=== PATIENT | female | born 1960 | race Caucasian/White ===

== ENCOUNTER 2017-12-28 19:22 | Emergency (ER) | payer MEDICARE, MEDICAID, SELFPAY ==
[2017-12-28 19:27] VITALS: BP 137/78; PULSE 89; RESP 20; TEMP 36.6; O2SAT 89; BMI 49.7
--- NOTE | 2017-12-28 19:39 | CT_ITS ---
CT abdomen pelvis wo con Ordering Physician: Adrien Bah MD Patient Age: 57 years: Female HISTORY: ITS.REASON: ABDOMINAL PAIN TECHNIQUE: Helical CT scanning performed the abdomen and pelvis with no oral or IV contrast utilized. Sagittal coronal reconstruction CT workstation. COMPARISON : Previous CT abdomen pelvis dated 07/20/2017. FINDINGS Patient's large size diminishes resolution slightly Lung bases are clear nothing acute. Abdomen/pelvis. Lack of oral and IV contrast decreases sensitivity. Liver. No focal lesions appreciated. Mild diffuse fatty change. Gallbladder is been surgically removed. Pancreas unremarkable. Adrenals unremarkable. Kidneys. No urinary tract calculi nor obstruction. Pelvis. The bladder is unremarkable. No pelvic masses. Hysterectomy. No adnexal masses. No free fluid no free air abdomen or pelvis. GI tract. Large amount There is moderate stool throughout colon with moderate generous stool at the transverse colon & hepatic flexure. Cecum at the right mid abdomen and appears redundant. No evidence of appendicitis. Undigested food-like material is seen throughout the distal most small bowel. Doubt this is of significance since is no bowel dilatation can be seen with ileus or mild altered bowel dynamics. No retroperitoneal nor mesenteric nor pelvic nor inguinal adenopathy or mass. Osseous structures stable with no significant findings. IMPRESSION. ... No acute findings abdomen or pelvis. 1. no acute findings abdomen pelvis. . 2.No evidence of appendicitis. No urinary tract obstruction or calculi. Generous stool is seen throughout the right & transverse colon which may reflect mild constipation but unimpressive. Minimal diverticulosis developing sigmoid colon no diverticulitis . Large patient. Hepatic steatosis Cholecystectomy. Hysterectomy.
[2017-12-28 20:12] LABS: Basophils # 0.1 K/mm3 (0-0.2); Basophils % 0.6 % (0.1-2.0); Eosinophils # 0.2 K/mm3 (0.0-0.4); Eosinophils % 1.8 % (0.1-12.0); Hematocrit 40.2 % (37.0-47.0); Hemoglobin 13.4 g/dL (12.2-16.2); Lymphocytes % 21.3 K/mm3 (10-50); Mean Corpuscular HGB Conc 33.3 g/dL (31.8-35.4); Mean Corpuscular Hemoglobin 28.7 pg (27.0-31.2); Mean Corpuscular Volume 86.4 fl (81-99); Monocytes # 0.4 K/mm3 (0.1-1.0); Monocytes % 4.5 % (1.7-9.3); Neutrophils # 6.6 K/mm3 (1.8-7.8); Neutrophils % 71.9 % (37.0-80.0); Platelet Count 198 K/mm3 (142-424); Red Blood Count 4.66 M/mm3 (4.20-5.40); Red Cell Distribution Width 14.6 % (11.5-17.5); White Blood Count 9.1 K/mm3 (4.8-10.8)
[2017-12-28 20:28] LABS: Alanine Aminotransferase 32 U/L (12-78); Albumin Level 3.6 gm/dL (3.4-5.0); Albumin/Globulin Ratio 0.9 (1.1-1.8); Alkaline Phosphatase 127 U/L (46-116); Amylase 60 U/L (25-125); Anion Gap 6.4 mEq/L (5-15); Aspartate Amino Transferase 20 U/L (15-37); Bilirubin,Total 0.3 mg/dL (0.2-1.0); Blood Urea Nitrogen 29 mg/dL (7-18); Calcium 9.2 mg/dL (8.5-10.1); Carbon Dioxide 38 mmol/L (21.0-32.0); Chloride 95 mmol/L (98-107); Creatinine Clearance Estimated 83 mL/min (0-300); Creatinine,Serum 0.69 mg/dL (0.55-1.02); Estimated Glomerular Filt Rate 87 ml/min (>60); GFR (African American) 106 ML/MIN (>60); Globulin 4.1 gm/dl (1.3-3.2); Glucose 107 mg/dL (74-106); Lipase 173 u/L (73-393); Potassium 3.4 mmoL/L (3.5-5.1); Sodium 136 mmol/L (136-145); Total Protein,Serum 7.7 gm/dL (6.4-8.2)
--- NOTE | 2017-12-28 20:33 | PC.NURSE ---
urine sample collected and sent to lab.
[2017-12-28 20:37] LABS: Microscopic, Urine URINE MICROSCOPIC (MICROSCOPIC)
[2017-12-28 20:43] LABS: Appearance,Urine CLEAR (Clear); Bilirubin,Urine Negative (Negative); Blood, Urine Negative (Negative); Color,Urine YELLOW (Yellow); Glucose,Urine (UA) Negative (Negative); Ketones,Urine Negative (Negative); Leukocyte Esterase,Urine Negative (Negative); Nitrate,Urine Negative (Negative); Protein,Urine Negative (Negative); Urobilinogen,Urine 0.2 EU/dl (0.2)
--- NOTE | 2017-12-28 20:43 | HMH.EDGENADL ---
ED Disposition Clinical Impression: RUQ abdominal pain Disposition: Home, Self-Care Condition on Discharge: Good Instructions: DI for Abdominal Pain-Adult Additional Instructions: Please follow up with Dr Jenkins tomorrow at 1pm as already scheduled, for additional evaluation/workup. If unable to see Dr Jenkins and if not better, return promptly to this ER for re-evaluation. Referrals: Manas Jenkins MD [Primary Care Provider] - Time of Disposition: 22:00 - Critical Care Critical Care Time: No Attestation: On 12/28/17, the high probability of a clinically significant, sudden or life threatening deterioration of the following system(s) required my full and direct attention, intervention and personal management. The time I documented below is in addition to time spent performing reported procedures but includes the following listed in this critical care notation. Medical Decision Making - Medical Records Medical records reviewed: Yes: I reviewed the patient's medical records. Vital Signs: 12/28/17 19:27 12/28/17 21:21 12/28/17 22:08 Temperature 97.9 F 98.1 F Temperature Source Oral Oral Pulse Rate 81 Pulse Rate [Right Brachial] 89 82 Respiratory Rate 20 16 18 Blood Pressure 124/80 Blood Pressure [Right Arm] 137/78 100/67 Blood Pressure Mean [Right Arm] 97 78 Blood Pressure Source Automatic Cuff Blood Pressure Source [Right Arm] Automatic Cuff Automatic Cuff Blood Pressure Position Sitting Blood Pressure Position [Right Arm] Sitting 02 Sat by Pulse Oximetry 89 L 91 L Oxygen Delivery Method Room Air Room Air Room Air - Lab Data Lab results reviewed: Yes: I reviewed the patient's lab results. Lab Results 12/28/17 20:00: Urine Color Yellow, Urine Appearance Clear, Urine pH 6.0, Ur Specific [place] 1.020, Urine Protein Negative, Urine Glucose (UA) Negative, Urine Ketones Negative, Urine Blood Negative, Urine Nitrate Negative, Urine Bilirubin Negative, Urine Urobilinogen 0.2, Ur Leukocyte Esterase Negative, Urine WBC Occasional, Ur Squamous Epith Cells 10-20, Amorphous Sediment Trace, Urine Bacteria Trace 12/28/17 20:00: WBC 9.1, RBC 4.66, Hgb 13.4, Hct 40.2, MCV 86.4, MCH 28.7, MCHC 33.3, RDW 14.6, Plt Count 198, MPV 9.0, Neut % (Auto) 71.9, Lymph % (Auto) 21.3, [place] % (Auto) 4.5, Eos % (Auto) 1.8, Baso % (Auto) 0.6, Neut # (Auto) 6.6, Lymph # (Auto) 2.0, [place] # (Auto) 0.4, Eos # (Auto) 0.2, Baso # (Auto) 0.1 12/28/17 20:00: Sodium 136, Potassium 3.4 L, Chloride 95 L, Carbon Dioxide 38 H, Anion Gap 6.4, BUN 29 H, Creatinine 0.69, Estimated Creat Clear 83, Estimated GFR 87, Est GFR ( Amer) 106, Glucose 107 H, Calcium 9.2, Total Bilirubin 0.3, AST 20, ALT 32, Alkaline Phosphatase 127 H, Total Protein 7.7, Albumin 3.6, Globulin 4.1 H, Albumin/Globulin Ratio 0.9 L, Amylase 60, Lipase 173 Result diagrams: 12/28/17 20:00 12/28/17 20:00 Orders (Tests/Meds): ED MEDICATIONS Discontinued Medications Generic Name Dose Route Start Last Admin Trade Name Freq PRN Reason Stop Dose Admin Morphine Sulfate 4 mg 12/28/17 20:46 12/28/17 21:14 Morphine 4mg/Ml Syringe IV 12/28/17 20:47 4 mg ONCE ONE Administration Ondansetron HCl 4 mg 12/28/17 20:46 12/28/17 21:14 Zofran 4mg/2ml Vial IV 12/28/17 20:47 4 mg ONCE ONE Administration - CT Data CT Scan: Abdomen, Pelvis Time Received: 21:[address] Reviewed: Yes: I have viewed the radiologist's interpretation Findings Narrative: Please see radiologist's report - Adonay Inquiry Pt receiving controlled substance: No - Reevaluation(s) Time: 21:45 Reevaluation #1: Upon reevaluation patient appears medically stable, no acute distress. Advise patient of results obtained, need to follow-up with PCP for additional workup. Patient advised that she already has a follow-up appointment for this specific matter with Dr. Jenkins tomorrow at 1 PM. Urged patient to keep such appointment, as workup has already been completed in t
[2017-12-28 20:45] LABS: WBC,Urine Occasional #/hpf (0-3)
[2017-12-28 20:46] LABS: Amorphous Sediment,Urine Trace /lpf; Bacteria,Urine Trace /lpf
[2017-12-28 21:21] VITALS: BP 100/67; PULSE 82; RESP 16; O2SAT 91
[2017-12-28 22:08] VITALS: BP 124/80; PULSE 81; RESP 18; TEMP 36.7; O2SAT 96
== END 2017-12-28 22:10 | disposition home or self-care (01) ==
PROVIDERS: Emergency Provider Emergency Medicine; Family Provider Nurse Practitioner Family; PCP Family Medicine
DX: R10.11 Right upper quadrant pain (principal); Z90.49 Acquired absence of other specified parts of digestive tract; Z88.1 Allergy status to other antibiotic agents; Z88.8 Allergy status to other drugs, medicaments and biological substances
CPT/HCPCS: 74176; 80053; 81001; 82150; 83690; 85025; 96374; 96375; 99282; J2405

== ENCOUNTER 2018-02-06 21:06 | Emergency (ER) | payer MEDICARE, MEDICAID, SELFPAY ==
[2018-02-06 21:10] VITALS: BMI 50.5
--- NOTE | 2018-02-06 21:11 | XR_ITS ---
XR chest portable COMPARISON: PA and lateral chest 07/01/2017 HISTORY: Chest pain TECHNIQUE: Portal semiupright chest FINDINGS: There is a slightly poor inspiration however lung streeter are clear of infiltrate. There is mild or borderline cardiomegaly but there is no vascular congestion and is no pleural fluid. There are monitor lines overlying the chest. The patient is markedly obese. IMPRESSION: Mild cardio megaly, no acute chest pathology noted
[2018-02-06 21:22] VITALS: BP 144/93; PULSE 75; RESP 22; TEMP 36.4; O2SAT 89; BMI 50.5
[2018-02-06 21:28] LABS: Basophils % 0.3 % (0.1-2.0); Eosinophils # 0.2 K/mm3 (0.0-0.4); Eosinophils % 1.3 % (0.1-12.0); Hematocrit 43.3 % (37.0-47.0); Hemoglobin 14.1 g/dL (12.2-16.2); Lymphocytes # 1.8 K/mm3 (0.7-4.5); Lymphocytes % 15.3 K/mm3 (10-50); Mean Corpuscular HGB Conc 32.4 g/dL (31.8-35.4); Mean Corpuscular Hemoglobin 28.7 pg (27.0-31.2); Mean Corpuscular Volume 88.6 fl (81-99); Mean Platelet Volume 8.7 fl (7.4-10.4); Monocytes # 0.5 K/mm3 (0.1-1.0); Monocytes % 4.3 % (1.7-9.3); Neutrophils # 9.2 K/mm3 (1.8-7.8); Neutrophils % 78.8 % (37.0-80.0); Platelet Count 301 K/mm3 (142-424); Red Blood Count 4.89 M/mm3 (4.20-5.40); Red Cell Distribution Width 14.1 % (11.5-17.5); White Blood Count 11.6 K/mm3 (4.8-10.8)
--- NOTE | 2018-02-06 21:29 | HMH.EDGENADL ---
ED Disposition Clinical Impression: Atypical chest pain, Anxiety state Asthma attack Qualifiers: Asthma severity: mild Asthma persistence: intermittent Qualified Code(s): J45.21 - Mild intermittent asthma with (acute) exacerbation Disposition: Home, Self-Care Condition on Discharge: Good Instructions: DI for Atypical Chest Pain, DI for Asthma -- Adult Additional Instructions: Additional instructions for CHEST PAIN: See your physician as soon as possible for further evaluation. Return immediately if worsening chest pain, vomiting, shortness of breath, fever, coughing of blood. - Critical Care Critical Care Time: No Attestation: On 02/06/18, the high probability of a clinically significant, sudden or life threatening deterioration of the following system(s) required my full and direct attention, intervention and personal management. The time I documented below is in addition to time spent performing reported procedures but includes the following listed in this critical care notation. Medical Decision Making - Adonay Inquiry Pt receiving controlled substance: No Vital Signs: 02/06/18 21:22 02/06/18 22:10 02/06/18 23:30 Temperature 97.6 F Temperature Source Oral Pulse Rate [Right Radial] 75 67 64 Respiratory Rate 22 20 20 Blood Pressure [Right Arm] 144/93 158/76 128/77 Blood Pressure Mean [Right Arm] 110 103 94 Blood Pressure Source [Right Arm] Automatic Cuff Automatic Cuff Automatic Cuff Blood Pressure Position [Right Arm] Sitting Sitting Supine 02 Sat by Pulse Oximetry 89 L 97 98 Oxygen Delivery Method Room Air Nasal Cannula Oxygen Flow Rate (LPM) 2 - Lab Data Lab Results 02/06/18 21:15: WBC 11.6 H, RBC 4.89, Hgb 14.1, Hct 43.3, MCV 88.6, MCH 28.7, MCHC 32.4, RDW 14.1, Plt Count 301, MPV 8.7, Neut % (Auto) 78.8, Lymph % (Auto) 15.3, [place] % (Auto) 4.3, Eos % (Auto) 1.3, Baso % (Auto) 0.3, Neut # (Auto) 9.2 H, Lymph # (Auto) 1.8, [place] # (Auto) 0.5, Eos # (Auto) 0.2, Baso # (Auto) 0.0 02/06/18 21:15: Sodium 141, Potassium 3.3 L, Chloride 98, Carbon Dioxide 35 H, Anion Gap 11.3, BUN 24 H, Creatinine 0.78, Estimated Creat Clear 74, Estimated GFR 76, Est GFR ( Amer) 92, Glucose 101, Calcium 8.7, Total Bilirubin 0.3, AST 19, ALT 29, Alkaline Phosphatase 135 H, Total Creatine Kinase 53, CK-MB (CK-2) < 0.5, CK-MB (CK-2) Rel Index 0.9, Troponin I < 0.02, Total Protein 8.0, Albumin 3.4, Globulin 4.6 H, Albumin/Globulin Ratio 0.7 L Result diagrams: 02/06/18 21:15 02/06/18 21:15 Orders (Tests/Meds): ED MEDICATIONS Discontinued Medications Generic Name Dose Route Start Last Admin Trade Name Freq PRN Reason Stop Dose Admin Aspirin 243 mg 02/06/18 21:12 02/06/18 21:15 Aspirin 81mg Chewable Tablet PO 02/06/18 21:13 243 mg ONCE ONE Administration ORDERS Category Date Time Status XR chest portable Stat Exams 02/06/18 21:11 Taken ECG Request by /Nse Stat Y 02/06/18 21:11 Ordered - ECG Data Tracing #1 EKG interpreted by Jarrod Boykin MD: Rhythm: sinus Rate: 78 [place]: normal Ectopy: none Conduction: normal ST Segment Changes: none T Wave Changes: none Q Waves: none No evidence of acute ischemia or injury Medical Decision Narrative: I estimate there is LOW risk for PULMONARY EMBOLISM, ACUTE CORONARY SYNDROME, OR THORACIC AORTIC DISSECTION, thus I consider the discharge disposition reasonable. General Adult HPI - General Chief complaint: Shortness of Breath/Dyspnea Stated complaint: chest pain Time Seen by Provider: 02/07/18 00:37 Mode of Arrival: Ambulatory Limitations: No Limitations Description of Symptoms (Recalled from ER Triage Doc. by RN): Pt reports chest pain and shortness of breath that started earlier today - History of Present Illness HPI narrative: The patient states she believes she had an asthma attack and then had an anxiety attack on top of that. She says at about 8 PM or so she developed some shortness of breath, which h
[2018-02-06 21:58] LABS: Alanine Aminotransferase 29 U/L (12-78); Albumin Level 3.4 gm/dL (3.4-5.0); Albumin/Globulin Ratio 0.7 (1.1-1.8); Alkaline Phosphatase 135 U/L (46-116); Anion Gap 11.3 mEq/L (5-15); Aspartate Amino Transferase 19 U/L (15-37); Bilirubin,Total 0.3 mg/dL (0.2-1.0); Blood Urea Nitrogen 24 mg/dL (7-18); CKMB Relative Index 0.9 U/L (0-4.0); Calcium 8.7 mg/dL (8.5-10.1); Carbon Dioxide 35 mmol/L (21.0-32.0); Chloride 98 mmol/L (98-107); Creatine Kinase 53 U/L (26-192); Creatine Kinase MB < 0.5 mg/ml (0.0-3.6); Creatinine Clearance Estimated 74 mL/min (0-300); Creatinine,Serum 0.78 mg/dL (0.55-1.02); Estimated Glomerular Filt Rate 76 ml/min (>60); GFR (African American) 92 ML/MIN (>60); Globulin 4.6 gm/dl (1.3-3.2); Glucose 101 mg/dL (74-106); Potassium 3.3 mmoL/L (3.5-5.1); Sodium 141 mmol/L (136-145); Troponin I < 0.02 ng/ml (0.00-0.06)
[2018-02-06 22:10] VITALS: BP 158/76; PULSE 67; RESP 20; O2SAT 97
[2018-02-06 23:30] VITALS: BP 128/77; PULSE 64; RESP 20; O2SAT 98
[2018-02-07 00:30] VITALS: BP 143/84; PULSE 64; O2SAT 96
[2018-02-07 01:03] VITALS: BP 143/84; PULSE 64; RESP 16; TEMP 36.4; O2SAT 96
== END 2018-02-07 01:03 | disposition home or self-care (01) ==
PROVIDERS: Emergency Provider Emergency Medicine
DX: R07.9 Chest pain, unspecified (principal); J45.21 Mild intermittent asthma with (acute) exacerbation; R06.02 Shortness of breath; F41.9 Anxiety disorder, unspecified; Z88.1 Allergy status to other antibiotic agents; Z79.82 Long term (current) use of aspirin
CPT/HCPCS: 71045; 80053; 82550; 82553; 84484; 85025; 93005; 99284

== ENCOUNTER → 2018-02-09 13:50 | Outpatient (CLI) | payer MEDICARE, MEDICAID, SELFPAY ==
--- NOTE | 2018-02-09 13:59 | XR_ITS ---
XR hip RT 2-3V w/pelvis COMPARISON: None HISTORY: Right hip pain TECHNIQUE: AP pelvis, cone-down AP and frog views right hip FINDINGS: The iliac bones and pubic bones appear intact. There is mild asymmetrical joint space narrowing of both hips with mild spurring of the acetabulum bilaterally. There is normal range of motion right hip on the frog-leg view. Both his appear intact with no evidence of recent or old fracture. IMPRESSION: Mild osteoarthritic changes of both hips
--- NOTE | 2018-02-09 13:59 | XR_ITS ---
XR knee RT 3V COMPARISON: None HISTORY: Right knee pain TECHNIQUE: AP lateral and oblique views FINDINGS: There is mild joint space narrowing medially. There is prominence of the tibial spines. There is minimal spurring of the medial and lateral femoral condyles. There is narrowing of patellofemoral space with spurring of the superior and inferior borders of the patella. There is no definite effusion. IMPRESSION: Mild to moderate degenerative changes of knee as noted
== END ==
PROVIDERS: PCP Family Medicine; Visit Provider Nurse Practitioner
DX: M25.551 Pain in right hip (principal); M25.561 Pain in right knee
CPT/HCPCS: 73502; 73562

== ENCOUNTER → 2018-04-14 15:44 | Outpatient (CLI) | payer MEDICARE, MEDICAID, SELFPAY ==
--- NOTE | 2018-04-14 15:46 | MR_ITS ---
MR lumbar spine wo con, MR 3-d myelogram/MRCP HISTORY: Low back pain, right-sided low back pain with right leg pain and numbness ITS.REASON: SCIATICA ORDERING PHYSICIAN: Manas Jenkins MD PATIENT AGE: 57 years TECHNIQUE: Standard multiplanar multiecho sequences are performed without contrast. 3-D MIP and myelographic images are also rendered and reviewed LIMITATIONS: Decreased [id number] ratio secondary to patient body habitus and mild motion artifact on the axial images FINDINGS: There is normal alignment. The spinal cord ends at the T12-L1 level. T11-T12, T12-L1, L1-L2: Mild degenerative disc desiccation with some minimal endplate irregularity at T11, T12 and L1. L2-L3: Mild degenerative disc disease with mild facet and ligamentum flavum hypertrophy. There is narrowing of the canal in the transverse dimension at 10 mm. There is minimal bulging disc at this level. L3-L4: Mild bilateral foraminal narrowing from facet hypertrophic change L4-5: Minimal bulging disc with mild facet and ligamentum flavum hypertrophy with mild to moderate bilateral lateral recess and foraminal narrowing. L5-S1: Mild bulging disc with narrowing of the canal both AP and transverse plane. No disc herniation evident. There is edema within the subcutaneous tissues in the lumbar region posteriorly. IMPRESSION: 1. Multilevel lumbar spondylosis with degenerative disc disease, bulging disc, and facet ligamentum flavum hypertrophy with areas of foraminal lateral recess narrowing as well as narrowing of the canal. Please see above for detailed description at each level. 2. No disc herniation
== END ==
PROVIDERS: Family Provider Nurse Practitioner Family; PCP Family Medicine; Visit Provider Family Medicine
DX: M53.86 Other specified dorsopathies, lumbar region (principal); M48.061 Spinal stenosis, lumbar region without neurogenic claudication
CPT/HCPCS: 72148; 76376

== ENCOUNTER → 2018-05-04 14:11 | Outpatient (POV) | payer MEDICARE, MEDICAID, SELFPAY ==
[2018-05-04 14:32] VITALS: BP 119/78; PULSE 89; RESP 18; O2SAT 99
--- NOTE | 2018-05-04 16:14 | HMH.PMCON ---
Assessment and Plan (1) Sacroiliitis Current visit: Yes Status: Chronic Category: Medical Code(s): M46.1 - Sacroiliitis, not elsewhere classified - Assessment and plan all Dx Assessment and Plan for all problems:: We will schedule a right SI joint injection for the patient I believe that this would be beneficial given her symptomology. Patient has tried and failed anti-inflammatories, medications, stretching therapies. I will follow-up with the patient after her injection and we will reassess her symptoms at that time. This note was dictated using voice recognition software and may contain errors or omissions HPI - Data of Consult Consult date: 05/04/18 Requesting Physician: Klarissa Ma APRN Primary Care Provider: Manas Jenkins MD Family Provider: Jasmine Alvarado APRN - Consult Narrative Reason for consult: Right hip pain History of present illness: Ms. Mallory is a 57 year old female who presents today in regards to her right sciatic pain. Patient states that walking increases her pain while rest and heat decreases it. Patient states she has been having pain for the last 6 months. Patient rates her pain a 7 out of 10. Patient has tried massage therapy with no relief. Patient has tried and failed baclofen, diazepam, Cymbalta, gabapentin, Lortab, Paxil, ibuprofen, Topamax. Patient denies numbness or tingling in the extremities. Patient is interested in injective therapy to help control her pain. She is not on any anticoagulation therapy. CC: Klarissa Ma APRN [facility] History I have reviewed the patient's past medical history: Yes Medical History: Reports:: Anxiety, Depression, Gastroesophageal Reflux Disease(GERD), Hyperlipidemia, Hypertension, Migraine Denies:: Cancer, Diabetes Mellitus Type 1, Diabetes Mellitus Type 2, MRSA Other Medical History: Reports: Other Laterality Cases: Bilateral: Carpal Tunnel Release Other Surgeries: Yes: Hysterectomy-Total, Other Amputation: No Fractures: No - *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 Smoking Status: Never smoker Alcohol Intake: never Occupational Status: other Housing: house Household Members: spouse - Psychiatric History Expresses thoughts of harming self/others: None Suicide Plan Description: No Plan Pschychiatric History:: Reports:: Anxiety, Depression *Family Hx:: Cancer Review of Systems - Review of Systems ROS General: no recent weight change, no fever, no sleep disturbances Respiratory: no cough, no shortness of air, no recurring pulmonary infections Cardiovascular/Peripheral Vascular: No chest pain, No palpitations, no edema, no shortness of breath. Gastrointestinal: no incontinence, normal bowel movements reported Genitourinary: no incontinence Musculoskeletal: Right SI joint pain Psychiatric: normal mood/ affect Neurological: [denies weakness in extremities], [denies balance issues] Meds Home Medications Medication Instructions Recorded Confirmed Type aspirin 81 mg tablet,delayed 81 mg PO ONCE tab 01/07/18 04/04/18 History release atorvastatin 40 mg tablet 40 mg PO ONCE 01/07/18 04/04/18 History duloxetine 60 mg capsule,delayed 60 mg PO ONCE 01/07/18 04/04/18 History release loratadine 10 mg tablet 10 mg PO ONCE 01/07/18 04/04/18 History lorazepam 1 mg tablet 1 mg PO TID tab 01/07/18 04/04/18 History omeprazole 40 mg capsule,delayed 40 mg PO ONCE 01/07/18 04/04/18 History release potassium chloride 20 mEq oral 20 meq PO ONCE packet 01/07/18 04/04/18 History packet pramipexole 0.25 mg tablet 0.25 mg PO TID 01/07/18 04/04/18 History primidone 50 mg tablet 250 mg PO TID tab 01/07/18 04/04/18 History prochlorperazine maleate 10 mg 10 mg PO TID tab 01/07/18 04/04/18 History tablet promethazine 25 mg tablet 25 mg PO Q6H PRN 01/07/18 04/04/18 History ranitidine 300 mg capsule 300 mg PO QHS 01/07/18 04/04/18 History triamterene 75 1 tab PO QAM 01/07/18 04/04/18 History mg-hydrochlorothiazide 50 mg tablet
--- NOTE | 2018-05-04 16:17 | P.CONS_ITS ---
Assessment and Plan (1) Sacroiliitis Current visit: Yes Status: Chronic Category: Medical Code(s): M46.1 - Sacroiliitis, not elsewhere classified - Assessment and plan all Dx Assessment and Plan for all problems:: We will schedule a right SI joint injection for the patient I believe that this would be beneficial given her symptomology. Patient has tried and failed anti- inflammatories, medications, stretching therapies. I will follow-up with the patient after her injection and we will reassess her symptoms at that time. This note was dictated using voice recognition software and may contain errors or omissions HPI - Data of Consult Consult date: 05/04/18 Requesting Physician: Klarissa Ma APRN Primary Care Provider: Manas Jenkins MD Family Provider: Jasmine Alvarado APRN - Consult Narrative Reason for consult: Right hip pain History of present illness: Ms. Mallory is a 57 year old female who presents today in regards to her right sciatic pain. Patient states that walking increases her pain while rest and heat decreases it. Patient states she has been having pain for the last 6 months. Patient rates her pain a 7 out of 10. Patient has tried massage therapy with no relief. Patient has tried and failed baclofen, diazepam, Cymbalta, gabapentin, Lortab, Paxil, ibuprofen, Topamax. Patient denies numbness or tingling in the extremities. Patient is interested in injective therapy to help control her pain. She is not on any anticoagulation therapy. CC: Klarissa Ma APRN [facility] History I have reviewed the patient's past medical history: Yes Medical History: Reports:: Anxiety, Depression, Gastroesophageal Reflux Disease( GERD), Hyperlipidemia, Hypertension, Migraine Denies:: Cancer, Diabetes Mellitus Type 1, Diabetes Mellitus Type 2, MRSA Other Medical History: Reports: Other Laterality Cases: Bilateral: Carpal Tunnel Release Other Surgeries: Yes: Hysterectomy-Total, Other Amputation: No Fractures: No - *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 Smoking Status: Never smoker Alcohol Intake: never Occupational Status: other Housing: house Household Members: spouse - Psychiatric History Expresses thoughts of harming self/others: None Suicide Plan Description: No Plan Pschychiatric History:: Reports:: Anxiety, Depression *Family Hx:: Cancer Review of Systems - Review of Systems ROS General: no recent weight change, no fever, no sleep disturbances Respiratory: no cough, no shortness of air, no recurring pulmonary infections Cardiovascular/Peripheral Vascular: No chest pain, No palpitations, no edema, no shortness of breath. Gastrointestinal: no incontinence, normal bowel movements reported Genitourinary: no incontinence Musculoskeletal: Right SI joint pain Psychiatric: normal mood/ affect Neurological: [denies weakness in extremities], [denies balance issues] Meds Home Medications Medication Instructions Recorded Confirmed Type aspirin 81 mg tablet,delayed 81 mg PO ONCE tab 01/07/18 04/04/18 History release atorvastatin 40 mg tablet 40 mg PO ONCE 01/07/18 04/04/18 History duloxetine 60 mg capsule,delayed 60 mg PO ONCE 01/07/18 04/04/18 History release loratadine 10 mg tablet 10 mg PO ONCE 01/07/18 04/04/18 History lorazepam 1 mg tablet 1 mg PO TID tab 01/07/18 04/04/18 History omeprazole 40 mg capsule,delayed 40 mg PO ONCE 01/07/18 04/04/18 History release potassium chloride 20 mEq oral 20 meq PO ONCE
== END ==
PROVIDERS: Family Provider Nurse Practitioner Family; PCP Family Medicine; Visit Provider Clinical Nurse Specialist Family Health
DX: M46.1 Sacroiliitis, not elsewhere classified (principal)
CPT/HCPCS: 99202

== ENCOUNTER → 2018-06-09 08:46 | Outpatient (CLI) | payer MEDICARE, MEDICAID, SELFPAY ==
--- NOTE | 2018-06-09 08:48 | XR_ITS ---
XR ankle wt bearing LT min 3V HISTORY: ITS.REASON: pain ORDERING PHYSICIAN: Maribel Flores DPM PATIENT AGE: 57 years Comparison: None FINDINGS: No fracture or dislocation. No lytic or blastic change. There is normal mineralization.. The joint spaces are well-preserved. The medial and lateral malleolus appear intact iliac mortise is normal. There is mild diffuse soft tissue swelling both medially and laterally. There is prominent pes planus. There is a small spur of the calcaneus at insertion of Achilles tendon. IMPRESSION: Pes planus, no acute bony abnormality identified
--- NOTE | 2018-06-09 08:48 | XR_ITS ---
XR foot wt bearing LT 3V HISTORY: ITS.REASON: pain ORDERING PHYSICIAN: Maribel Flores DPM PATIENT AGE: 57 years COMPARISON: None FINDINGS: No fracture or dislocation. No lytic or blastic change. There is normal mineralization.. The joint spaces are well-preserved. No significant degenerative/arthritic changes. No erosive changes evident. Moderate pes planus. There are small spurs of the calcaneus at insertion of Achilles tendon and plantar tendon. IMPRESSION: Pes planus and small calcaneal spurs no other bony abnormality seen
--- NOTE | 2018-06-09 08:48 | XR_ITS ---
XR RT min 3V HISTORY: ITS.REASON: ankle pain ORDERING PHYSICIAN: Maribel Flores DPM PATIENT AGE: 57 years Comparison: 01/04/2016 FINDINGS: There is minor cortical irregularity of the distal fibula consistent with old healed fracture. The medial and lateral malleolus appear intact and the ankle mortise is normal. There is an os trigonum noted. There is marked pes planus and there is a prominent calcaneal spur at insertion of plantar tendon as noted previously. . IMPRESSION: Stable pes planus and prominent calcaneal spur
--- NOTE | 2018-06-09 08:48 | XR_ITS ---
XR foot wt bearing RT 3V HISTORY: ITS.REASON: pain ORDERING PHYSICIAN: Maribel Flores DPM PATIENT AGE: 57 years COMPARISON: None FINDINGS: No fracture or dislocation. No lytic or blastic change. There is normal mineralization.. The joint spaces are well-preserved. No significant degenerative/arthritic changes. No erosive changes evident. There is moderate pes planus. There is a prominent spur of the calcaneus at insertion of the plantar tendon. There is minor diffuse soft tissue swelling of the forefoot. IMPRESSION: Pes planus and calcaneal spur as noted
== END ==
PROVIDERS: Visit Provider Podiatrist
DX: M25.571 Pain in right ankle and joints of right foot (principal); M25.572 Pain in left ankle and joints of left foot
CPT/HCPCS: 73610; 73630

== ENCOUNTER → 2018-06-22 14:04 | Outpatient (POV) | payer MEDICARE, MEDICAID, SELFPAY ==
[2018-06-22 14:41] VITALS: BP 157/87; PULSE 73; RESP 18; O2SAT 98; BMI 50.5
--- NOTE | 2018-06-22 15:01 | HMH.PAINSOAP ---
[facility] Pain Management SOAP Note Subjective:: Patient is a pleasant 58-year-old white female who presents today follow-up after right SI joint injection. Patient was doing extremely well after injection stating that she had 90% relief until she strained a tendon in her foot. Patient was put in a boot which re-agitated her SI joint symptomology. Patient would like to repeat the injection. ROS General: no recent weight change, no fever, no sleep disturbances Respiratory: no cough, no shortness of air, no recurring pulmonary infections Cardiovascular/Peripheral Vascular: No chest pain, No palpitations, no edema, no shortness of breath. Gastrointestinal: no incontinence, normal bowel movements reported Genitourinary: no incontinence Musculoskeletal: SI joint pain Psychiatric: normal mood/ affect Neurological: [denies weakness in extremities], [denies balance issues] Objective:: Physical Exam General: Alert and oriented x3, no acute distress, pleasant and cooperative, [on room air] Lungs: Resps E/U, Symmetrical chest expansion, Eyes: PERRL Musculoskeletal: Flexion and extension of lumbar spine somewhat guarded secondary to pain, deep tendon reflexes normal, strength in upper and lower extremities [5/5], [abnormal gait noted] my extreme point tenderness over right SI joint injection, positive Nolberto's test on the right side Neurological: speech clear, maintenance service supervisor equal, no gross sensory deficits Assessment:: Sacroiliitis Plan:: We will schedule a repeat right SI joint injection given the benefit of her last one. I will follow-up the patient after injection. This note was dictated using voice recognition software and may contain errors or omissions
--- NOTE | 2018-06-22 15:04 | P.CONS_ITS ---
[facility] Pain Management SOAP Note Subjective:: Patient is a pleasant 58-year-old white female who presents today follow-up after right SI joint injection. Patient was doing extremely well after injection stating that she had 90% relief until she strained a tendon in her foot. Patient was put in a boot which re-agitated her SI joint symptomology. Patient would like to repeat the injection. ROS General: no recent weight change, no fever, no sleep disturbances Respiratory: no cough, no shortness of air, no recurring pulmonary infections Cardiovascular/Peripheral Vascular: No chest pain, No palpitations, no edema, no shortness of breath. Gastrointestinal: no incontinence, normal bowel movements reported Genitourinary: no incontinence Musculoskeletal: SI joint pain Psychiatric: normal mood/ affect Neurological: [denies weakness in extremities], [denies balance issues] Objective:: Physical Exam General: Alert and oriented x3, no acute distress, pleasant and cooperative, [ on room air] Lungs: Resps E/U, Symmetrical chest expansion, Eyes: PERRL Musculoskeletal: Flexion and extension of lumbar spine somewhat guarded secondary to pain, deep tendon reflexes normal, strength in upper and lower extremities [5/5], [abnormal gait noted] my extreme point tenderness over right SI joint injection, positive Nolberto's test on the right side Neurological: speech clear, insurance appraiser equal, no gross sensory deficits Assessment:: Sacroiliitis Plan:: We will schedule a repeat right SI joint injection given the benefit of her last one. I will follow-up the patient after injection. This note was dictated using voice recognition software and may contain errors or omissions
== END ==
PROVIDERS: Family Provider Nurse Practitioner Family; Visit Provider Clinical Nurse Specialist Family Health
DX: M46.1 Sacroiliitis, not elsewhere classified (principal)
CPT/HCPCS: 99212

== ENCOUNTER → 2018-07-10 12:24 | Outpatient (CLI) | payer MEDICARE, MEDICAID, SELFPAY ==
[2018-07-10 13:39] LABS: Anion Gap 13.3 mEq/L (5-15); Blood Urea Nitrogen 19 mg/dL (7-18); Calcium 9.5 mg/dL (8.5-10.1); Carbon Dioxide 33 mmol/L (21.0-32.0); Chloride 99 mmol/L (98-107); Creatinine,Serum 0.84 mg/dL (0.55-1.02); Estimated Glomerular Filt Rate 69 ml/min (>60); GFR (African American) 84 ML/MIN (>60); Glucose 105 mg/dL (74-106); Potassium 4.3 mmoL/L (3.5-5.1); Sodium 141 mmol/L (136-145)
== END ==
PROVIDERS: Visit Provider Internal Medicine Cardiovascular Disease
DX: E78.4 Other hyperlipidemia (principal)
CPT/HCPCS: 36415; 80048

== ENCOUNTER → 2018-07-13 12:31 | Outpatient (POV) | payer MEDICARE, MEDICAID, SELFPAY ==
[2018-07-13 12:52] VITALS: BP 126/75; PULSE 78; RESP 18; O2SAT 98; BMI 51.0
--- NOTE | 2018-07-13 12:53 | HMH.PAINSOAP ---
[facility] Pain Management SOAP Note Subjective:: Patient is a pleasant 58-year-old white female who presents today for follow-up after her right SI joint injection. Patient states it helped her up to 90%. She rates her pain a 2 out of 10 today. Patient has been recently started on losartan for blood pressure which she is having side effects to. Patient would like to follow-up in 3 months. ROS General: no recent weight change, no fever, no sleep disturbances Respiratory: no cough, no shortness of air, no recurring pulmonary infections Cardiovascular/Peripheral Vascular: No chest pain, No palpitations, no edema, no shortness of breath. Gastrointestinal: Diarrhea Genitourinary: no incontinence Musculoskeletal: SI joint pain Psychiatric: normal mood/ affect Neurological: [denies weakness in extremities], [denies balance issues] Objective:: Physical Exam General: Alert and oriented x3, no acute distress, pleasant and cooperative, [on room air] Lungs: Resps E/U, Symmetrical chest expansion, Eyes: PERRL Musculoskeletal: Flexion and extension of lumbar spine somewhat guarded secondary to pain, deep tendon reflexes normal, strength in upper and lower extremities [5/5], [abnormal gait noted] Neurological: speech clear, senior communications specialist equal, no gross sensory deficits Assessment:: Sacroiliitis Plan:: we will follow-up with the patient in 3 months and reassess her symptoms at that time. Patient's been instructed to call the office if she has any issues prior to her next appointment. This note was dictated using voice recognition software and may contain errors or omissions
== END ==
PROVIDERS: Family Provider Nurse Practitioner Family; PCP Family Medicine; Visit Provider Clinical Nurse Specialist Family Health
DX: M46.1 Sacroiliitis, not elsewhere classified (principal)
CPT/HCPCS: 99213

== ENCOUNTER → 2018-08-18 08:47 | Outpatient (POV) | payer MEDICARE, MEDICAID, SELFPAY ==
--- NOTE | 2018-08-18 09:16 | HMH.PAINSOAP ---
[facility] Pain Management SOAP Note Subjective:: Patient is a pleasant 58-year-old white female who presents today for follow-up. Patient had a right SI joint injection several months ago and had 90% relief of her symptoms. Patient states that she is doing much better. Patient rates her pain a 4 out of 10 today. She would like to move forward with another injection. Patient states her pain has not fully returned however it is beginning to. ROS General: no recent weight change, no fever, no sleep disturbances Respiratory: no cough, no shortness of air, no recurring pulmonary infections Cardiovascular/Peripheral Vascular: No chest pain, No palpitations, no edema, no shortness of breath. Gastrointestinal: no incontinence, normal bowel movements reported Genitourinary: no incontinence Musculoskeletal: SI joint pain Psychiatric: normal mood/ affect Neurological: [denies weakness in extremities], [denies balance issues] Objective:: Physical Exam General: Alert and oriented x3, no acute distress, pleasant and cooperative, [on room air] Lungs: Resps E/U, Symmetrical chest expansion, Eyes: PERRL Musculoskeletal: Flexion and extension of lumbar spine somewhat guarded secondary to pain, deep tendon reflexes normal, strength in upper and lower extremities [5/5], abnormal gait noted, positive Nolberto's test on the right side Neurological: speech clear, fuel cell battery technician equal, no gross sensory deficits Assessment:: Sacroiliitis Plan:: We will plan a right SI joint injection for the patient given the efficacy of this in the past. I will follow-up with the patient after injection. Patient has been instructed to call the office if she has any issues prior to her next appointment. Patient is continuing a home stretching regimen. This note was dictated using voice recognition software and may contain errors or omissions
--- NOTE | 2018-08-18 09:20 | P.CONS_ITS ---
[facility] Pain Management SOAP Note Subjective:: Patient is a pleasant 58-year-old white female who presents today for follow-up. Patient had a right SI joint injection several months ago and had 90% relief of her symptoms. Patient states that she is doing much better. Patient rates her pain a 4 out of 10 today. She would like to move forward with another injection. Patient states her pain has not fully returned however it is beginning to. ROS General: no recent weight change, no fever, no sleep disturbances Respiratory: no cough, no shortness of air, no recurring pulmonary infections Cardiovascular/Peripheral Vascular: No chest pain, No palpitations, no edema, no shortness of breath. Gastrointestinal: no incontinence, normal bowel movements reported Genitourinary: no incontinence Musculoskeletal: SI joint pain Psychiatric: normal mood/ affect Neurological: [denies weakness in extremities], [denies balance issues] Objective:: Physical Exam General: Alert and oriented x3, no acute distress, pleasant and cooperative, [on room air] Lungs: Resps E/U, Symmetrical chest expansion, Eyes: PERRL Musculoskeletal: Flexion and extension of lumbar spine somewhat guarded secondary to pain, deep tendon reflexes normal, strength in upper and lower extremities [5/5], abnormal gait noted, positive Nolberto's test on the right side Neurological: speech clear, quality assurance monitor final equal, no gross sensory deficits Assessment:: Sacroiliitis Plan:: We will plan a right SI joint injection for the patient given the efficacy of this in the past. I will follow-up with the patient after injection. Patient has been instructed to call the office if she has any issues prior to her next appointment. Patient is continuing a home stretching regimen. This note was dictated using voice recognition software and may contain errors or omissions
[2018-08-18 09:41] VITALS: BP 149/86; PULSE 70; RESP 18; O2SAT 98; BMI 50.1
== END ==
PROVIDERS: Family Provider Nurse Practitioner Family; PCP Family Medicine; Visit Provider Clinical Nurse Specialist Family Health
DX: M46.1 Sacroiliitis, not elsewhere classified (principal)
CPT/HCPCS: 99213

== ENCOUNTER → 2018-08-27 14:24 | Outpatient (CLI) | payer MEDICARE, MEDICAID, SELFPAY ==
[2018-08-27 15:21] LABS: Anion Gap 12.1 mEq/L (5-15); Blood Urea Nitrogen 23 mg/dL (7-18); Calcium 8.6 mg/dL (8.5-10.1); Carbon Dioxide 35 mmol/L (21.0-32.0); Chloride 101 mmol/L (98-107); Creatinine,Serum 0.64 mg/dL (0.55-1.02); Estimated Glomerular Filt Rate 95 ml/min (>60); GFR (African American) 115 ML/MIN (>60); Glucose 147 mg/dL (74-106); Potassium 4.1 mmoL/L (3.5-5.1); Sodium 144 mmol/L (136-145)
== END ==
PROVIDERS: Physician Assistant; PCP Family Medicine; Visit Provider Internal Medicine Cardiovascular Disease
DX: I10 Essential (primary) hypertension (principal); I50.32 Chronic diastolic (congestive) heart failure
CPT/HCPCS: 36415; 80048; 83880

== ENCOUNTER → 2018-09-24 09:43 | Outpatient (POV) | payer MEDICARE, MEDICAID, SELFPAY | PROVIDERS: Visit Provider Podiatrist | DX: Z00.00 Encounter for general adult medical examination without abnormal findings (principal) ==

== ENCOUNTER → 2018-10-26 13:37 | Outpatient (POV) | payer MEDICARE, MEDICAID, SELFPAY ==
[2018-10-26 14:12] VITALS: BP 142/65; PULSE 98; RESP 18; O2SAT 98; BMI 50.7
--- NOTE | 2018-10-26 14:21 | P.CONS_ITS ---
[facility] Pain Management SOAP Note Subjective:: Patient is a pleasant 58-year-old white female who presents today for follow-up after right SI joint injection. Patient states she got 80% relief from her injection and is doing well. This was almost 2 months ago. Patient would like to move forward with getting another injection she rates her pain today a 4 out of 10. Patient states she currently has a muscle strain of her lower back as well. ROS General: no recent weight change, no fever, no sleep disturbances Respiratory: no cough, no shortness of air, no recurring pulmonary infections Cardiovascular/Peripheral Vascular: No chest pain, No palpitations, no edema, no shortness of breath. Gastrointestinal: no incontinence, normal bowel movements reported Genitourinary: no incontinence Musculoskeletal: SI joint pain Psychiatric: normal mood/ affect Neurological: [denies weakness in extremities], [denies balance issues] Objective:: Physical Exam General: Alert and oriented x3, no acute distress, pleasant and cooperative, [on room air] Lungs: Resps E/U, Symmetrical chest expansion, Eyes: PERRL Musculoskeletal: Flexion and extension of lumbar spine somewhat guarded secondary to pain, deep tendon reflexes normal, strength in upper and lower extremities [5/5], [abnormal gait noted] positive Nolberto's test on the right side and positive Nolberto's test on the left side Neurological: speech clear, chamber of commerce division manager equal, no gross sensory deficits Assessment:: Sacroiliitis Plan:: We will schedule bilateral SI joint injections for the patient given the efficacy of these in the past. This note was dictated using voice recognition software and may contain errors or omissions
== END ==
PROVIDERS: PCP Family Medicine; Visit Provider Clinical Nurse Specialist Family Health
DX: M46.1 Sacroiliitis, not elsewhere classified (principal)
CPT/HCPCS: 99213

== ENCOUNTER 2018-11-22 19:14 | Observation (INO) ==
[2018-11-22 19:43] LABS: Basophils # 0.1 K/mm3 (0-0.2); Basophils % 0.5 % (0.1-2.0); Eosinophils # 0.1 K/mm3 (0.0-0.4); Eosinophils % 0.6 % (0.1-12.0); Hematocrit 50.2 % (37.0-47.0); Hemoglobin 15.7 g/dL (12.2-16.2); Lymphocytes # 1.5 K/mm3 (0.7-4.5); Lymphocytes % 16.2 % (10-50); Mean Corpuscular HGB Conc 31.2 g/dL (31.8-35.4); Mean Corpuscular Hemoglobin 28.5 pg (27.0-31.2); Mean Corpuscular Volume 91.3 fl (81-99); Monocytes # 0.6 K/mm3 (0.1-1.0); Neutrophils # 7.2 K/mm3 (1.8-7.8); Neutrophils % 76.6 % (37.0-80.0); Platelet Count 269 K/mm3 (142-424); Red Cell Distribution Width 14.2 % (11.5-17.5); White Blood Count 9.4 K/mm3 (4.8-10.8)
--- NOTE | 2018-11-22 19:56 | Emergency Department Note ---
ED Disposition Clinical Impression: Acute asthma exacerbation Disposition: Admitted as Observation Condition on Discharge: Fair Instructions: DI for Asthma -- Adult Prescriptions: Albuterol Sulfate [Albuterol HFA Inhaler] 1 - 2 puffs IH Q4-6H PRN #1 inh PRN Reason: Shortness Of Breath Or Wheezing predniSONE [Prednisone 50mg Tab] 50 mg PO DAILY 5 Days #5 tab Referrals: Provider,Referral, MD [Primary Care Provider] - - Critical Care Critical Care Time: No Attestation: On 11/22/18, the high probability of a clinically significant, sudden or life threatening deterioration of the following system(s) required my full and direct attention, intervention and personal management. The time I documented below is in addition to time spent performing reported procedures but includes the following listed in this critical care notation. Medical Decision Making - Medical Records Medical records reviewed: Yes: I reviewed the patient's medical records. MR Comment: Discussed case with admitting physician home service demonstrator (Dr. Hahn). Patient admitted to his service for farther management and monitoring. Patient remained stable during her ED care. - Adonay Inquiry Pt receiving controlled substance: No Adonay was queried for this patient: No Vital Signs: 11/22/18 19:14 11/22/18 19:34 Temperature 98.8 F Temperature Source Oral Pulse Rate 86 Pulse Rate [Right Brachial] 104 H Respiratory Rate 26 H Blood Pressure [Right Arm] 149/97 H Blood Pressure Mean [Right Arm] 114 Blood Pressure Source [Right Arm] Automatic Cuff 02 Sat by Pulse Oximetry 92 L Oxygen Delivery Method Room Air - Lab Data Lab Results 11/22/18 19:25: WBC 9.4, RBC 5.50 H, Hgb 15.7, Hct 50.2 H, MCV 91.3, MCH 28.5, MCHC 31.2 L, RDW 14.2, Plt Count 269, MPV 8.0, Neut % (Auto) 76.6, Lymph % (Auto) 16.2, Mcculloch % (Auto) 6.0, Eos % (Auto) 0.6, Baso % (Auto) 0.5, Neut # (Auto) 7.2, Lymph # (Auto) 1.5, Mcculloch # (Auto) 0.6, Eos # (Auto) 0.1, Baso # (Auto) 0.1 11/22/18 19:25: Sodium 139, Potassium 4.1, Chloride 99, Carbon Dioxide 29, Anion Gap 15.1 H, BUN 18, Creatinine 0.91, Estimated Creat Clear 60, Estimated GFR 63, Est GFR ( Amer) 77, Glucose 140 H, Calcium 8.7, Total Bilirubin 0.5, Direct Bilirubin 0.1, Indirect Bilirubin 0.4, AST 23, ALT 30, Alkaline Phosphatase 164 H, Troponin I < 0.02, Total Protein 7.5, Albumin 3.6 11/22/18 19:25: Lactate 2.0 11/22/18 19:25: Influenza Type A Ag Negative, Influenza Type B Ag Negative 11/22/18 19:25: Group A Strep Rapid Negative Result diagrams: 11/22/18 19:25 11/22/18 19:25 Orders (Tests/Meds): ED MEDICATIONS Generic Name Dose Route Start Last Admin Trade Name Freq PRN Reason Stop Dose Admin Hydrocodone Bitart/Acetaminophen 1 tab 11/22/18 23:00 Baltic 10/325mg Tablet PO 12/22/18 22:59 Q6 JAMES Albuterol Sulfate 5 mg 11/22/18 20:15 Albuterol 0.083% 2.5mg/3ml Neb IH 12/22/18 20:14 Q4H JAMES Aspirin 81 mg 11/22/18 20:15 Aspirin 81mg Enteric Coated Tablet PO 12/22/18 20:14 ONCE JAMES Furosemide 80 mg 11/22/18 21:00 Lasix 80mg Tablet PO 12/22/18 20:59 BID JAMES Guaifenesin 1,200 mg 11/22/18 21:00 Mucinex 600mg Tablet PO 12/22/18 20:59 BID JAMES Sodium Chloride 1,000 mls @ 999 mls/hr 11/22/18 19:30 11/22/18 19:30 Sod Chlor 0.9% 1000ml Bag IV 11/22/18 20:30 999 mls/hr .Q1H1M JAMES Administration Loratadine 10 mg 11/22/18 20:15 Claritin 10mg Tablet PO 12/22/18 20:14 ONCE JAMES Lorazepam 1 mg 11/22/18 20:10 Ativan 1mg Tablet PO 12/22/18 20:09 Q4-6H PRN Anxiety Methylprednisolone Sodium Succinate 125 mg 11/22/18 20:15 Solu-Medrol 125mg/2ml Vial IV 12/22/18 20:14 Q6H JAMES Montelukast Sodium 10 mg 11/22/18 20:15 Singulair 10mg Tablet PO 12/22/18 20:14 QPM JAMES Non-Formulary Medication 2,000 unit 11/23/18 09:00 Cholecalciferol (Vitamin D3) [Vitamin D3] PO 12/23/18 08:59 DAILY JAMES Non-Formulary Medication 50 mg 11/22/18 20:10 Diphenhydramine Hcl [Nighttime Allergy Relief] PO QHS PRN Sleep Non-Formulary Medication 60 mg 11/23/18 09:00 Duloxetine Hcl [Duloxetine Hcl] PO 12/23/18 08:59 DAILY JAMES Non-Formulary Medication 40 mg 11/23/18 09:00 Omeprazole [Omeprazole 40mg Capsule] PO 12/23/18 08:59 DAILY JAMES Non-Formulary Medication 300 mg 11/22/18 20:15 Ranitidine Hcl [Ranitidine Hcl] PO 12/22/18 20:14 QHS JAMES Non-Formulary Medication 4 g 11/22/18 21:00 Diclofenac Sodium [Voltaren 100gm Topical Gel] TOPICAL 12/22/18 20:59 QID JAMES Non-Formulary Medication 20 meq 11/22/18 20:15 Potassium Chloride [Pot Chlor 20 Meq Packet] PO 12/22/18 20:14 ONCE JAMES Pramipexole Dihydrochloride 0.25 mg 11/22/18 21:00 Mirapex 0.25mg Tablet PO 12/22/18 20:59 TID [facility] Prochlorperazine Maleate 10 mg 11/22/18 21:00 Compazine 10mg Tablet PO 12/22/18 20:59 TID JAMES Promethazine HCl 25 mg 11/22/18 20:10 Phenergan 25mg Tablet PO 12/22/18 20:09 Q6H PRN Nausea And Vomiting Sodium Chloride 10 ml 11/22/18 19:19 Saline Flush 10ml Syringe IV 12/22/18 19:18 NEEDED PRN Maintain IV Site Sodium Chloride 3 ml 11/22/18 19:20 Sodium Chloride 3% 15ml Neb IH 12/22/18 19:19 ONCE PRN INDUCE SPUTUM COLLECTION Tiotropium Emmett 2 puffs 11/23/18 09:00 Spiriva 18mcg/Puff Inhaler IH 12/23/18 08:59 DAILY JAMES Discontinued Medications Generic Name Dose Route Start Last Admin Trade Name Pieter PRN Reason Stop Dose Admin Albuterol/Ipratropium 3 ml 11/22/18 19:19 11/22/18 19:29 Duoneb 3ml Neb IH 11/22/18 19:20 3 ml ONCE ONE Administration Methylprednisolone Sodium Succinate 125 mg 11/22/18 19:19 11/22/18 19:30 Solu-Medrol 125mg/2ml Vial IV 11/22/18 19:20 125 mg ONCE ONE Administration ORDERS Category Date Time Status Blood Culture Stat Micro 11/22/18 19:25 Received Sputum Culture & Gram Stain Stat Micro 11/22/18 19:20 Received Strep Screen Confirmation Stat Micro 11/22/18 19:25 Received ECG Request by /Ezekiel Stat Y 11/22/18 19:19 Ordered - Radiology Data #1 Image(s): Chest Image Reviewed: Yes I reviewed the patient's radiology image Preliminary Findings: Normal/NAD - ECG Data Tracing #1 Normal Sinus Rhythm: Yes Conduction abnormalities present: LAFB Asthma HPI - General Chief Complaint: Shortness of Breath/Dyspnea Stated Complaint: shortness of air, chest pressure with breathing Time Seen by Provider: 11/22/18 19:15 Mode of Arrival - ED Triage: Ambulatory ED Triage Source of Information: Patient, Spouse ED Triage Limitations: No Limitations Description of Symptoms (Recalled from ER Triage Doc. by RN): Reports feeling sick since Friday, shortness of breath, chest congestion, cough, labored breathing. Comes in tonight bc she has chest pressure with inspiration. - History of Present Illness HPI Narrative: Patient with history of Asthma, comes to the ED with complains increasing sob and wheezing for a day. Patient also reports sore throat for a day. Repors family member with recent diagnosis of Strep throat. Denies fever, chills. Denies chest or abdominal pain. MD complaint: shortness of breath, wheezing Onset (ago): day(s) (1) Severity: moderate Context: recent URI Associated symptoms: productive cough (clear) - Related Data Current Asthma Therapy: inhaled bronchodilator Home Medications Medication Instructions Recorded Confirmed aspirin 81 mg tablet,delayed 81 mg PO ONCE tab 01/07/18 11/22/18 release potassium chloride 20 mEq oral 20 meq PO ONCE packet 01/07/18 11/22/18 packet pramipexole 0.25 mg tablet 0.25 mg PO TID 01/07/18 11/22/18 prochlorperazine maleate 10 mg 10 mg PO TID tab 01/07/18 11/22/18 tablet promethazine 25 mg tablet 25 mg PO Q6H PRN 01/07/18 11/22/18 ranitidine 300 mg capsule 300 mg PO QHS 01/07/18 11/22/18 albuterol sulfate HFA 90 2 puff INHALATION BID PRN g 04/02/18 11/22/18 mcg/actuation aerosol inhaler cholecalciferol (vitamin D3) 2,000 2,000 unit PO DAILY cap 04/02/18 11/22/18 unit capsule diphenhydramine 25 mg tablet 50 mg PO QHS PRN 04/02/18 11/22/18 loratadine 10 mg tablet 10 mg PO ONCE 04/02/18 11/22/18 montelukast 10 mg tablet 10 mg PO QPM 04/02/18 11/22/18 Hydrocodone/Acetaminophen 1 each PO Q6 05/04/18 11/22/18 [Hydrocodone-Acetamin 10-325 mg] lorazepam 1 mg tablet 1 mg PO Q4-6H PRN 30 Days #90 06/01/18 11/22/18 duloxetine 60 mg capsule,delayed 60 mg PO DAILY 30 Days #30 cap 09/24/18 11/22/18 release furosemide 80 mg tablet 80 mg PO BID 30 Days #60 tab 09/24/18 11/22/18 omeprazole 40 mg capsule,delayed 40 mg PO DAILY 30 Days #30 cap 09/24/18 11/22/18 release tiotropium bromide 18 mcg capsule 2 puffs INHALATION DAILY 30 Days 09/24/18 11/22/18 with inhalation device #30 puff Previous Rx's Medication Instructions Recorded diclofenac 1 % topical gel 4 g TOPICAL QID #30 g 06/09/18 Albuterol Sulfate [Albuterol HFA 1 - 2 puffs IH Q4-6H PRN #1 inh 11/22/18 Inhaler] predniSONE [Prednisone 50mg Tab] 50 mg PO DAILY 5 Days #5 tab 11/22/18 Allergies Allergy/AdvReac Type Severity Reaction Status Date / Time fexofenadine [FEXOFENADINE] Allergy Intermediate SICK Verified 09/24/18 09:27 amoxicillin [From AUGMENTIN] Allergy Unknown SOA Verified 09/24/18 09:27 clavulanic acid Allergy Unknown SOA Verified 09/24/18 09:27 [From AUGMENTIN] naproxen [NAPROXEN] Allergy Unknown SWELLING Verified 09/24/18 09:27 [facility] History - Hepatitis A Screen Drug use history?: No High risk sexual behaviors?: No History of sexually transmitted infection?: No Currently employed?: No Childcare worker?: No Do you have indoor plumbing?: Yes Do you have electricity?: Yes Attestation statement:: This patient has been screened for Hepatitis A risk factors. Medical History: Reports:: Anxiety, Asthma, Cerebrovascular Accident, Depression, Gastroesophageal Reflux Disease(GERD), Hyperlipidemia, Hypertension, Migraine Denies:: Cancer, Diabetes Mellitus Type 1, Diabetes Mellitus Type 2, MRSA, Seizures Other Medical History: Reports: Other Comment: panic attack, back problems Laterality Cases: Bilateral: Carpal Tunnel Release Other Surgeries: Yes: Cardiac Catheterization, Cholecystectomy, Colonoscopy, C- section, Dilation and Curettage, Diagnostic Lap, Hysterectomy-Total, Other Amputation: No Fractures: No Comment: Lt. shoulder surgery. Lt. elbow surgery. CHEL,BSO,BLADDER TACK--ENDOMETRIOSIS--[place], [place]. 2015- RT. ANKLE SURGERY - 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 Smoking Status: Former smoker Tobacco Type: cigarettes #Yrs smoked (if former smoker): 16 Alcohol Intake: never Alcohol Intake Frequency:: other Occupational Status: unemployed, other Housing: house Household Members: spouse - Psychiatric History Expresses thoughts of harming self/others: None Suicide Plan Description: No Plan Pschychiatric History:: Reports:: Anxiety, Depression Family Hx:: Cancer ROS Obtained: Yes All systems reviewed & no additional complaints - Respiratory Respiratory: Yes as per HPI Physical Exam - General General appearance: alert, in no apparent distress - Head Head exam: atraumatic, normocephalic, normal inspection - Eye Eye exam: Present: normal appearance, PERRL, EOMI - ENT ENT exam: Present: normal exam, normal oropharynx, mucous membranes moist, TM's normal bilaterally, normal external ear exam - Neck Neck exam: Present: normal inspection, full ROM, trachea midline. Absent: meningismus, lymphadenopathy - Chest Chest inspection: Present: normal inspection, symmetric chest wall rise. Absent: tenderness - Respiratory Respiratory exam: Present: wheezes. Absent: respiratory distress (Diffuse expiratory wheezes at presentation.) - Cardiovascular Cardiovascular exam: Present: regular rate, normal rhythm. Absent: JVD - Abdominal Exam Abdominal exam: Present: soft, normal bowel sounds. Absent: distention, tenderness, guarding - Extremities Exam Extremities exam: Present: normal inspection, full ROM, normal capillary refill. Absent: calf tenderness - Neurological Exam Neurological exam: Present: alert, oriented X3 - Psychiatric Psychiatric exam: Present: normal affect, normal mood - Skin Skin exam: Present: warm, dry, intact, normal color - Lymphatic Lymphatic Findings: no adenopathy
[2018-11-22 19:58] LABS: Alanine Aminotransferase 30 U/L (12-78); Albumin Level 3.6 gm/dL (3.4-5.0); Alkaline Phosphatase 164 U/L (46-116); Anion Gap 15.1 mEq/L (5-15); Aspartate Amino Transferase 23 U/L (15-37); Bilirubin,Direct 0.1 mg/dL (0.0-0.2); Bilirubin,Indirect 0.4 mg/dL (0.0-0.9); Bilirubin,Total 0.5 mg/dL (0.2-1.0); Blood Urea Nitrogen 18 mg/dL (7-18); Calcium 8.7 mg/dL (8.5-10.1); Carbon Dioxide 29 mmol/L (21.0-32.0); Chloride 99 mmol/L (98-107); Glucose 140 mg/dL (74-106); Potassium 4.1 mmoL/L (3.5-5.1); Sodium 139 mmol/L (136-145); Total Protein,Serum 7.5 gm/dL (6.4-8.2)
--- NOTE | 2018-11-23 07:52 | H&P/Discharge Summary ---
General - General Admission date:: 11/22/18 Discharge date: 11/23/18 *Admission Date: 11/22/18 *Chief complaint: Cough and shortness of breath *History of present illness: 58-year-old female presented to the emergency department yesterday evening with 4-5 days of cough, chest congestion, sensation of wheezing and pain with cough. She endorsed subjective fevers at home as well. She denies chills. Cough was not productive of purulent sputum. In the emergency department patient was found to be wheezing on exam. The rest of her workup was rather unremarkable. Patient was admitted for observation and treatment of asthma exacerbation caused by URI [facility] History I have reviewed the patient's past medical history: Yes Medical History: Reports:: Anxiety, Asthma, Cerebrovascular Accident, Depression, Gastroesophageal Reflux Disease(GERD), Hyperlipidemia, Hypertension, Migraine Denies:: Cancer, Diabetes Mellitus Type 1, Diabetes Mellitus Type 2, MRSA, Seizures Other Medical History: Reports: Other Laterality Cases: Bilateral: Carpal Tunnel Release Other Surgeries: Yes: Cardiac Catheterization, Cholecystectomy, Colonoscopy, C- section, Dilation and Curettage, Diagnostic Lap, Hysterectomy-Total, Other Amputation: No Fractures: Yes - *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 Educational Level: Completed High School Smoking Status: Former smoker Tobacco Type: cigarettes #Yrs smoked (if former smoker): 15 Smoking End Date: ONE YEAR AGO Alcohol Intake: never Alcohol Intake Frequency:: other Occupational Status: disabled Housing: other Household Members: spouse - Psychiatric History Expresses thoughts of harming self/others: None Suicide Plan Description: No Plan Pschychiatric History:: Reports:: Anxiety, Depression *Family Hx:: Cancer Review of Systems - Review of Systems Review of systems:: pertinent systems reviewed and negative unless documented below - Constitutional Denies body ache(s), Denies chills - *Cardiovascular Reports shortness of breath, Reports shortness of breath with activity, Denies chest pain, Denies chest pain at rest - *Respiratory Reports chest congestion, Reports cough, Reports shortness of breath, Denies change in phlegm color Exam Vital signs and Labs for Last 24 Hours: Temp Pulse Resp BP Pulse Ox 98.5 F 79 20 150/86 H 90 L 11/23/18 04:00 11/23/18 06:19 11/23/18 04:00 11/23/18 04:00 11/23/18 06:19 Laboratory Results - last 24 hr 11/22/18 19:25: WBC 9.4, RBC 5.50 H, Hgb 15.7, Hct 50.2 H, MCV 91.3, MCH 28.5, MCHC 31.2 L, RDW 14.2, Plt Count 269, MPV 8.0, Neut % (Auto) 76.6, Lymph % (Auto) 16.2, Sanders % (Auto) 6.0, Eos % (Auto) 0.6, Baso % (Auto) 0.5, Neut # (Auto) 7.2, Lymph # (Auto) 1.5, Sanders # (Auto) 0.6, Eos # (Auto) 0.1, Baso # (Auto) 0.1 11/22/18 19:25: Sodium 139, Potassium 4.1, Chloride 99, Carbon Dioxide 29, Anion Gap 15.1 H, BUN 18, Creatinine 0.91, Estimated Creat Clear 60, Estimated GFR 63, Est GFR ( Amer) 77, Glucose 140 H, Calcium 8.7, Total Bilirubin 0.5, Direct Bilirubin 0.1, Indirect Bilirubin 0.4, AST 23, ALT 30, Alkaline Phosphatase 164 H, Troponin I < 0.02, Total Protein 7.5, Albumin 3.6 11/22/18 19:25: Lactate 2.0 11/22/18 19:25: Influenza Type A Ag Negative, Influenza Type B Ag Negative 11/22/18 19:25: Group A Strep Rapid Negative I & O for Last 24 hours: Intake & Output 11/20/18 11/21/18 11/22/18 11/23/18 11:59 11:59 11:59 11:59 Intake Total 1879 Balance 1879 Weight 298 lb 8 oz Microbiology Reports for the Last 24 Hours: Microbiology 11/22/18 19:20 Sputum - Expectorated Sputum Gram Stain - Final Narrative: Patient is awake and alert sitting up in bed. ENT exam reveals a moist oropharynx. Neck without lymphadenopathy. Lungs have diffuse expiratory wheezes and faint rhonchi with good aeration. Heart has a regular rate and rhythm. Abdomen is soft and obese. Extremities are warm to the touch. She has full range of motion in extremities. Normal sensory function of the extremities. Skin is without lesions Hospital Course Hospital Course: Patient was admitted and given IV Solu-Medrol as well as breathing treatments. By the following morning patient's symptoms have begun to improve. On her exam she was moving air well despite her wheezing and rhonchi. Chest x-ray was negative for infiltrate. Patient was encouraged to ambulate. O2 sats remained around 90% during hospitalization and at times would drop as low as 88%. Initial plan had been to discharge the patient on the evening of November 23. H owever, patient developed wheezing and dyspnea after ambulating in the evening and decision was made to cancel the discharge and keep her overnight. Results Labs on day of discharge: Labs from last 24 hours 11/22/18 11/22/18 11/22/18 19:25 19:25 19:25 WBC RBC Hgb Hct MCV MCH MCHC RDW Plt Count MPV Neut % (Auto) Lymph % (Auto) Sanders % (Auto) Eos % (Auto) Baso % (Auto) Neut # (Auto) Lymph # (Auto) Sanders # (Auto) Eos # (Auto) Baso # (Auto) Sodium Potassium Chloride Carbon Dioxide Anion Gap BUN Creatinine Estimated Creat Clear Estimated GFR Est GFR ( Amer) Glucose Lactate 2.0 Calcium Total Bilirubin Direct Bilirubin Indirect Bilirubin AST ALT Alkaline Phosphatase Troponin I Total Protein Albumin Influenza Type A Ag Negative Influenza Type B Ag Negative Group A Strep Rapid Negative 11/22/18 11/22/18 19:25 19:25 WBC 9.4 RBC 5.50 H Hgb 15.7 Hct 50.2 H MCV 91.3 MCH 28.5 MCHC 31.2 L RDW 14.2 Plt Count 269 MPV 8.0 Neut % (Auto) 76.6 Lymph % (Auto) 16.2 Sanders % (Auto) 6.0 Eos % (Auto) 0.6 Baso % (Auto) 0.5 Neut # (Auto) 7.2 Lymph # (Auto) 1.5 Sanders # (Auto) 0.6 Eos # (Auto) 0.1 Baso # (Auto) 0.1 Sodium 139 Potassium 4.1 Chloride 99 Carbon Dioxide 29 Anion Gap 15.1 H BUN 18 Creatinine 0.91 Estimated Creat Clear 60 Estimated GFR 63 Est GFR ( Amer) 77 Glucose 140 H Lactate Calcium 8.7 Total Bilirubin 0.5 Direct Bilirubin 0.1 Indirect Bilirubin 0.4 AST 23 ALT 30 Alkaline Phosphatase 164 H Troponin I < 0.02 Total Protein 7.5 Albumin 3.6 Influenza Type A Ag Influenza Type B Ag Group A Strep Rapid DS: Diagnosis - Discharge Diagnosis (1) Upper respiratory infection Status: Acute (2) Acute asthma exacerbation Status: Acute Discharge Medications - Medications for Discharge Home Medication List at Discharge: New methylPREDNISolone [Medrol] 4 mg PO DIRECTED #1 tab.ds.pk Continue aspirin 81 mg tablet,delayed release 81 mg PO DAILY tab potassium chloride 20 mEq oral packet 20 meq PO TID packet promethazine 25 mg tablet 25 mg PO Q6H PRN PRN Reason: Nausea And Vomiting ranitidine 300 mg capsule 300 mg PO QHS loratadine 10 mg tablet 10 mg PO DAILY duloxetine 60 mg capsule,delayed release 60 mg PO HS 30 Days #30 cap furosemide 80 mg tablet 80 mg PO BID 30 Days #60 tab lorazepam 1 mg tablet 1 mg PO Q4-6H PRN 30 Days #90 PRN Reason: Anxiety Albuterol Sulfate [Albuterol HFA Inhaler] 2 puff INHALATION Q4HP PRN PRN Reason: Shortness Of Breath Or Wheezing Prochlorperazine Maleate 10 mg PO TIDP PRN PRN Reason: Migraine Headache Hydrocodone/Acetaminophen [Hydrocodone-Acetamin 10-325 mg] 1 each PO TID Atorvastatin Calcium [Atorvastatin 40mg Tab] 40 mg PO HS Budesonide/Formoterol Fumarate [Symbicort 160-4.5 Mcg Inhaler] 2 puffs INHALATION BID Disposition Disposition: Home, Self-Care
--- NOTE | 2018-11-23 09:10 | Pharmacy Consult Notes ---
[facility] Pharmacy VTE Monitoring - Patient Demographics Admission date: 11/22/18 Report Date: 11/23/18 Time: 09:10 Allergies/Adverse Reactions: Patient Allergies fexofenadine [FEXOFENADINE] Allergy (Intermediate, Verified 09/24/18 09:27) SICK amoxicillin [From AUGMENTIN] Allergy (Unknown, Verified 09/24/18 09:27) SOA clavulanic acid [From AUGMENTIN] Allergy (Unknown, Verified 09/24/18 09:27) SOA naproxen [NAPROXEN] Allergy (Unknown, Verified 09/24/18 09:27) SWELLING Height: 1.68 m Weight: 135.397 kg Patient Problems: Current Active Problems Acute asthma exacerbation (Acute) Upper respiratory infection (Acute) - VTE Risk Labs: VTE Related Lab Results Hgb 15.7 g/dL (12.2-16.2) 11/22/18 19:25 Hct 50.2 % (37.0-47.0) H 11/22/18 19:25 Plt Count 269 K/mm3 (142-424) 11/22/18 19:25 BUN 18 mg/dL (7-18) 11/22/18 19:25 Creatinine 0.91 mg/dL (0.55-1.02) 11/22/18 19:25 Estimated Creat Clear 60 mL/min (50-200) 11/22/18 19:25 Was VTE Risk Assessment Performed: Yes VTE Score: 5 VTE Risk Level: Low Risk - Prophylaxis VTE Prophylaxis Ordered?: Yes Types of VTE Prophylaxis: TEDS Knee High Location of Applied Device: Bilateral Lower Extremeties - VTE Diagnosis Confirmed Treatment or plan recommended: Continue Current Treatment
--- NOTE | 2018-11-24 07:41 | Progress Note ---
Internal Medicine - PN: Subj *Date: 11/24/18 *Time: 07:39 Interval history: Patient discharge was canceled yesterday evening when patient became wheezy and more dyspneic after ambulating. O2 sats had hovered around 90% throughout the day sometimes slightly lower and sometimes slightly higher. This morning patient tells me she feels much better than she has over the last few days. She continues to have cough. Exam Vital signs and Labs for Last 24 Hours: Temp Pulse Resp BP Pulse Ox 97.6 F 78 18 143/91 H 90 L 11/23/18 19:30 11/24/18 06:01 11/23/18 19:30 11/23/18 19:30 11/24/18 06:01 I & O for Last 24 hours: Intake & Output 11/21/18 11/22/18 11/23/18 11/24/18 11:59 11:59 11:59 11:59 Intake Total 2480 / 2480 480 / 480 Balance 2480 / 2480 480 / 480 Weight 298 lb 8 oz Microbiology Reports for the Last 24 Hours: Microbiology 11/22/18 19:20 Sputum - Expectorated Sputum Gram Stain - Final 11/22/18 19:20 Sputum - Expectorated Sputum Sputum Culture - Preliminary Narrative: She is in no distress. Lungs have improved aeration with significant reduction in wheezing and rhonchi. There is still a faint end expiratory wheeze heard primarily on the left but otherwise lungs are clear. Heart has a regular rate and rhythm. Assessment and Plan (1) Acute asthma exacerbation Current visit: Yes Status: Acute Category: Medical Code(s): J45.901 - Unspecified asthma with (acute) exacerbation (2) Upper respiratory infection Current visit: Yes Status: Acute Category: Medical Code(s): J06.9 - Acute upper respiratory infection, unspecified - Assessment and plan all Dx Assessment and Plan for all problems:: Discharged home to continue oral steroids. Follow-up in the office next Friday
--- NOTE | 2018-11-24 07:45 | Discharge Summary ---
General - General Admission date:: 11/22/18 Discharge date: 11/24/18 HPI HPI: 58-year-old female presented to the emergency department yesterday evening with 4-5 days of cough, chest congestion, sensation of wheezing and pain with cough. She endorsed subjective fevers at home as well. She denies chills. Cough was not productive of purulent sputum. In the emergency department patient was found to be wheezing on exam. The rest of her workup was rather unremarkable. Patient was admitted for observation and treatment of asthma exacerbation caused by URI Hospital Course Hospital Course: Patient was admitted and continued on Solu-Medrol and duo nebs. She responded well to treatment and lung exam had good aeration despite wheezing and rhonchi. Patient's O2 sats were in the 90s upon admission. On initial assessment on November 23 plan was made to discharge the patient home in the evening after a few doses of IV steroids. However by the evening patient's O2 sats had fluctuated between 88 and 93%. With ambulating she became wheezy and dyspneic. Plan for discharge was canceled in favor of continuing treatment overnight. On the morning of November 24 patient had noted significant improvement in her level of dyspnea. She had minimal cough. On her exam her lungs were almost completely clear with only faint end expiratory wheezing heard in the left posterior upper lobe. She was discharged home on November 24 and will follow-up in my office on December 01 at 1:30 PM Objective Vital signs: Temp Pulse Resp BP Pulse Ox 97.6 F 78 18 143/91 H 90 L 11/23/18 19:30 11/24/18 06:01 11/23/18 19:30 11/23/18 19:30 11/24/18 06:01 Results Labs on day of discharge: Preliminary micro results at discharge 11/22/18 19:20 Sputum Culture - Preliminary Sputum - Expectorated Sputum DS: Diagnosis - Discharge Diagnosis (1) Acute asthma exacerbation Status: Acute (2) Upper respiratory infection Status: Acute Discharge Plan - Patient Discharge Instructions ACTIVITY: Continue current activity DIET: continue same diet Patient Instructions: DI for Asthma -- Adult - Follow up Plan Follow up with: Manas Jenkins MD [Primary Care Provider] - 1 week Disposition: Home, Self-Jail Medications: Home Medications Medication Instructions Recorded Confirmed Type aspirin 81 mg tablet,delayed 81 mg PO DAILY tab 01/07/18 11/22/18 History release potassium chloride 20 mEq oral 20 meq PO TID packet 01/07/18 11/22/18 History packet promethazine 25 mg tablet 25 mg PO Q6H PRN 01/07/18 11/22/18 History ranitidine 300 mg capsule 300 mg PO QHS 01/07/18 11/22/18 History loratadine 10 mg tablet 10 mg PO DAILY 04/02/18 11/22/18 History Hydrocodone/Acetaminophen 1 each PO TID 05/04/18 11/22/18 History [Hydrocodone-Acetamin 10-325 mg] lorazepam 1 mg tablet 1 mg PO Q4-6H PRN 30 Days #90 06/01/18 11/22/18 History duloxetine 60 mg capsule,delayed 60 mg PO HS 30 Days #30 cap 09/24/18 11/22/18 History release furosemide 80 mg tablet 80 mg PO BID 30 Days #60 tab 09/24/18 11/22/18 History Albuterol Sulfate [Albuterol HFA 2 puff INHALATION Q4HP PRN 11/22/18 11/22/18 History Inhaler] Atorvastatin Calcium [Atorvastatin 40 mg PO HS 11/22/18 11/22/18 History 40mg Tab] Budesonide/Formoterol Fumarate 2 puffs INHALATION BID 11/22/18 11/22/18 History [Symbicort 160-4.5 Mcg Inhaler] Prochlorperazine Maleate 10 mg PO TIDP PRN 11/23/18 11/23/18 History methylPREDNISolone [Medrol] 4 mg PO DIRECTED #1 tab.ds.pk 11/23/18 Rx Prescriptions/Medication Reconciliation: New methylPREDNISolone [Medrol] 4 mg PO DIRECTED #1 tab.ds.pk Continue aspirin 81 mg tablet,delayed release 81 mg PO DAILY tab potassium chloride 20 mEq oral packet 20 meq PO TID packet promethazine 25 mg tablet 25 mg PO Q6H PRN PRN Reason: Nausea And Vomiting ranitidine 300 mg capsule 300 mg PO QHS loratadine 10 mg tablet 10 mg PO DAILY duloxetine 60 mg capsule,delayed release 60 mg PO HS 30 Days #30 cap furosemide 80 mg tablet 80 mg PO BID 30 Days #60 tab lorazepam 1 mg tablet 1 mg PO Q4-6H PRN 30 Days #90 PRN Reason: Anxiety Albuterol Sulfate [Albuterol HFA Inhaler] 2 puff INHALATION Q4HP PRN PRN Reason: Shortness Of Breath Or Wheezing Prochlorperazine Maleate 10 mg PO TIDP PRN PRN Reason: Migraine Headache Hydrocodone/Acetaminophen [Hydrocodone-Acetamin 10-325 mg] 1 each PO TID Atorvastatin Calcium [Atorvastatin 40mg Tab] 40 mg PO HS Budesonide/Formoterol Fumarate [Symbicort 160-4.5 Mcg Inhaler] 2 puffs INHALATION BID
== END 2018-11-24 08:58 | disposition home or self-care (01) ==
LOC: 2ND 19:14 → ER 19:14 → 2ND 20:58
PROVIDERS: ADMIT Internal Medicine Adolescent Medicine; ATTEND Family Medicine
CPT/HCPCS: 71020; 71046; 80048; 80076; 83605; 84484; 85025; 87040; 87070; 87077; 87184; 87205; 87275; 87276; 87430; 93005; 94640; 94760; 94761; 96365; 96375; 99285; G0378

== ENCOUNTER → 2018-11-26 14:16 | Outpatient (CLI) | payer MEDICARE, MEDICAID, SELFPAY ==
--- NOTE | 2018-11-26 14:26 | XR_ITS ---
XR foot RT min 3V HISTORY: Lateral foot pain following injury ITS.REASON: RT FOOT PAIN,SPRAIN ORDERING PHYSICIAN: Manas Jenkins MD PATIENT AGE: 58 years COMPARISON: A FINDINGS: No fracture or dislocation. No lytic or blastic change. There is normal mineralization.. The joint spaces are well-preserved. Hypertrophic changes are present along the dorsal aspect of the talonavicular joint. Calcaneal spur is present. IMPRESSION: No acute finding
== END ==
PROVIDERS: PCP Family Medicine; Visit Provider Family Medicine
DX: M79.671 Pain in right foot (principal); S93.529A Sprain of metatarsophalangeal joint of unspecified toe(s), initial encounter
CPT/HCPCS: 73630

== ENCOUNTER → 2018-12-31 09:11 | Outpatient (POV) | payer MEDICARE, MEDICAID, SELFPAY | PROVIDERS: Visit Provider Podiatrist | DX: Z00.00 Encounter for general adult medical examination without abnormal findings (principal) ==

== ENCOUNTER → 2019-02-10 14:11 | Outpatient (CLI) | payer MEDICARE, MEDICAID, SELFPAY ==
--- NOTE | 2019-02-10 14:18 | XR_ITS ---
XR shoulder RT min 2V HISTORY: ITS.REASON: RT ANTERIOR SHOULDER RIVERA ORDERING PHYSICIAN: Manas Jenkins MD PATIENT AGE: 58 years Comparison: 08/11/2017 FINDINGS: There are mild osteoarthritic changes of the glenohumeral joint and acromioclavicular joint. No fracture or dislocation. There is a small lucency at the base of the acromion not significant change. IMPRESSION: Mild osteoarthritis of the glenohumeral joint and acromioclavicular joint
== END ==
PROVIDERS: PCP Family Medicine; Visit Provider Family Medicine
DX: M25.511 Pain in right shoulder (principal)
CPT/HCPCS: 73030

== ENCOUNTER → 2019-02-11 09:03 | Outpatient (POV) | payer MEDICARE, MEDICAID, SELFPAY | PROVIDERS: Visit Provider Podiatrist | DX: Z00.00 Encounter for general adult medical examination without abnormal findings (principal) ==

== ENCOUNTER → 2019-03-25 10:24 | Outpatient (CLI) | payer MEDICARE, MEDICAID, SELFPAY ==
--- NOTE | 2019-03-25 10:25 | MR_ITS ---
MR shoulder RT wo con COMPARISON: 02/10/2019 HISTORY: Right shoulder pain, injury with pain, limited range of motion ORDERING PHYSICIAN: Maribel Joel MD PATIENT AGE: 58 years TECHNIQUE: Routine multiplanar multiecho sequences are performed without contrast FINDINGS: Osteoarthritic changes are present at the acromioclavicular joint with mild bony hypertrophy and mild periarticular edema. There is downsloping of the lateral aspect of the acromion with subacromial stenosis. There is increased T2 signal involving the medial aspect of the supraspinatus tendon at the musculotendinous junction suggesting a partial tear at this region along the undersurface of the musculo tendinous junction. Thickening with increased T2 signal involves the distal aspect of the supraspinatus tendon. There is a full thickness tear along the posterior and distal aspect of the supraspinatus tendon. A complete tear with musculotendinous retraction is not identified. The infraspinatus tendon appears intact as does the subscapularis and teres minor tendons. Tendinopathy/tendinosis involves the distal aspect of the subscapularis tendon. Humeral head is slightly high riding. There is increase in T2 signal involving the base of the posterior glenoid labrum raising the suspicion of a posterior labral tear. This however is questionable. MR arthrogram may confirm. There are osteoarthritic changes of the glenohumeral joint. A small amount fluid is present within the bicipital tendon sheath. The bicipital tendon is in place. Small amount fluid is present in the subacromial region. Motion artifact somewhat obscures fine detail. IMPRESSION: 1. Subacromial stenosis with osteoarthritic change of the acromioclavicular joint and glenohumeral joint with high riding humeral head . 2. Partial tear of the supraspinatus tendon along its inferior surface at the musculotendinous junction along with a full-thickness tear distally and posteriorly. No evidence of a complete tear with musculotendinous retraction. 3. Tendinopathy/tendinosis of the supraspinatus and subscapularis tendons. 4. Possible posterior labral tear. MR arthrogram may confirm
== END ==
PROVIDERS: PCP Family Medicine; Visit Provider Orthopaedic Surgery
DX: M25.511 Pain in right shoulder (principal)
CPT/HCPCS: 73221

== ENCOUNTER 2019-05-26 14:00 | Outpatient (RCR) | payer MEDICARE, MEDICAID, SELFPAY ==
--- NOTE | 2019-05-17 11:01 | HMH.PTOPEV ---
PT Outpatient Evaluation Rehab PT Outpatient Evaluation Start: 05/17/19 09:47 Freq: Status: Active Protocol: Document 05/17/19 10:49 FRANK (Rec: 05/17/19 11:01 PHOCAORLINA [id number]) Electronically Signed By Jose Davies, PT 05/17/19 10:49 Outpatient Therapy Subjective History Subjective History Pt is 58 yowf who presents with c/o pain in low back and post right hip x ~ 1 mo with insidious onset of symptoms. She reports similar symptoms a few months ago from a pulled muscle, but now they think I slipped a disc. She reports having pain down the right LE, but this has improved over the last 1-2 wks. She reports no numbness or tingling at this time. PMH: asthma, anxiety, resting tremors due to medication. Chief Complaint Pain Symptom Type Ache,Sharp Symptoms Relieved By Rest/Positioning Symptoms Aggravated By Bending/Stooping,Physical Activity,Walking Prior Functional Limitations None Current Functional Limitations Housework,Walking,Bending/ Stooping Symptom Description Intermittent,Activity Dependent Level of pain today (0-10) 0 Pain scale - at its worst (0-10) 8 Lumbopelvic Eval Palapation tenderness bilateral Lumbar/Sacral Palpation Findings Tenderness Lumbar/Sacral Palpation Overall Comment tender over B SI jt and piriformis Accessory Movement L-spine Vertebrae Accessory Movements Central P/A [place] that Elicit Symptoms L2 bilateral L3 bilateral L4 bilateral L5 bilateral S1 bilateral Range of Motion Lumbar Spine Active Flexion Range of 0-45 Motion (degrees) Lumbar Spine Active Extension Range of 0-20 Motion (degrees) Left Lumbar Spine Lateral Flexion Active 0-15 Range of Motion (degrees) Right Lumbar Spine Lateral Flexion 0-15 Active Range of Motion (degrees) Manual Muscle Test Bilateral Knee Extension Strength Grade 4 Good Knee Flexion Strength Grade 4 Good Hip Flexion Strength Grade 4 Good Hip Abduction Strength Grade 4 Good Hip Adduction Strength Grade 4 Good Extensor Hallucis Longus Strength Grade 5 Normal Ankle Dorsiflexion Strength Grade
== END 2019-05-26 14:05 | disposition home or self-care (01) ==
LOC: PT 14:00
PROVIDERS: Visit Provider Family Medicine
DX: M54.16 Radiculopathy, lumbar region (principal)
CPT/HCPCS: 97010; 97014; 97110; 97140; 97163; G0283

== ENCOUNTER 2019-05-26 15:00 | Outpatient (RCR) | payer MEDICARE, MEDICAID, SELFPAY ==
--- NOTE | 2019-05-17 11:38 | HMH.OTOPEV ---
OT Inpatient Evaluation Rehab OT Outpatient Eval Start: 05/17/19 11:23 Freq: Status: Active Protocol: Document 05/17/19 11:24 RMRENU (Rec: 05/17/19 11:37 [facility] [id number]) Electronically Signed By America Stockton OT 05/17/19 11:24 Outpatient Therapy Subjective History Subjective History Pt is a 58 year old female who reports to therapy for initial evaluation to right shoulder. Pt reports ~4 months ago she woke up with significant pain in the right shoulder. She does not recall a specific injury causing her pain. Over time, pt's pain has continued and her strength /motion in the shoulder has declined. Pt did have a MRI ~ 1 month ago which confirmed a RTC tear (partial supraspinatus), LHBT tendiopathy, OA of A/C joint, and DJD of joint. Pt does demonstrate with significant decline in motion and strength . Pt will continue to be seen twice a week in order to address all deficits. Chief Complaint Pain,Weakness Symptom Type Ache,Throb,Sharp,Dull,Stabbing ,Shooting Symptoms Relieved By Nothing Symptoms Aggravated By Physical Activity,Lifting Prior Functional Limitations None Current Functional Limitations Reaching,Lifting,Housework, Dressing,Sleeping,Standing, Squatting,Recreation Activity Symptom Description Intermittent,Activity Dependent Level of pain today (0-10) 3 Pain scale - at its best (0-10) 0 Pain scale - at its worst (0-10) 10 Shoulder/Elbow Eval Shoulder Objective Measurements Shoulder ROM Right Shoulder Abduction Active Range of 64 degrees Motion (degrees) Shoulder Flexion Active Range of Motion 85 degrees (degrees) Query Text: Shoulder External Rotation Active Range 38 degrees of Motion (degrees) Shoulder Internal Rotation Active Range 20 degrees of Motion (degrees) pain with active ROM shoulder exam right standard pain with passive ROM shoulder exam right standard decreased ROM shoulder exam standard right full ROM shoulder
== END 2019-05-26 15:05 | disposition home or self-care (01) ==
LOC: OT 15:00
PROVIDERS: Visit Provider Orthopaedic Surgery
DX: M75.111 Incomplete rotator cuff tear or rupture of right shoulder, not specified as traumatic (principal)
CPT/HCPCS: 97014; 97110; 97165; G0283

== ENCOUNTER → 2019-09-16 08:58 | Outpatient (POV) | payer MEDICARE, MEDICAID, SELFPAY ==
[2019-09-16 09:49] VITALS: BP 110/55; PULSE 93; RESP 18; O2SAT 97; BMI 48.1
--- NOTE | 2019-09-16 10:59 | HMH.PAINSOAP ---
[facility] Pain Management SOAP Note Subjective:: Patient is a pleasant 58-year-old white female who presents today for follow-up on her right SI joint injection. Patient's been treated for back pain with radiation into her right hip. Today she rates her pain a 5 out of 10. She says that her pain is a 1 out of 10 when she is sitting, however with standing or walking it increases her pain. Patient says that she got about 80% relief with her SI joint injection for about 2 weeks. She says her pain has returned. She says the pain is now radiating into the right hip. She would like to get a another SI joint injection. She is continuing with anti-inflammatories and a home stretching program. Review of Systems General: No recent weight changes, no fever, no sleep disturbances Respiratory: No cough, no shortness of air, no recurring pulmonary infections Cardiovascular/peripheral vascular: No chest pain, no palpitations, no edema, no shortness of breath Gastrointestinal: No new onset incontinence, normal bowel movements reported Genitourinary: No new onset incontinence Musculoskeletal: Back pain, right hip pain Psychiatric: Normal mood/affect Neurological: [Denies weakness in extremities], [denies balance issues] Objective:: Physical exam General: Alert and oriented x3, no acute distress, pleasant and cooperative, [on room air] Lungs: Respirations even and unlabored, symmetrical chest expansion Eyes: PERRL Musculoskeletal: Flexion and extension of lumbar spine somewhat guarded secondary to pain, deep tendon reflexes normal, strength in upper and lower extremities [5/5], [abnormal gait noted], positive Last test, positive distraction test, positive compression test Neurological: Speech clear, wind project 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 She does have point tenderness noted over her right SI joint. She also has notable point tenderness over her right trochanteric bursa. We will also schedule the patient for right greater trochanteric bursa injection. Patient will continue with anti-inflammatories and home stretching program. We will see the patient back following her injections to reassess her symptoms. She has been instructed to contact the clinic if she has any concerns before next appointment. [facility] History I have reviewed the patient's past medical history: Yes Medical History: Reports:: Anxiety, Asthma, Cerebrovascular Accident, Depression, Gastroesophageal Reflux Disease(GERD), Hyperlipidemia, Hypertension, Migraine Denies:: Cancer, Diabetes Mellitus Type 1, Diabetes Mellitus Type 2, MRSA, Seizures *Have you ever received a pneumonia vaccine?: Yes *Have you received a flu vaccine this season?: Yes Other Medical History: Reports: Other Laterality Cases: Left: Arthroscopy Shoulder, Bilateral: Carpal Tunnel Release Other Surgeries: Yes: Cardiac Catheterization, Cholecystectomy, Colonoscopy, , Dilation and Curettage, Diagnostic Lap, EGD, Hysterectomy-Total, Other Amputation: No Fractures: Yes - *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 Smoking Status: Never smoker Tobacco Type: cigarettes #Yrs smoked (if former smoker): 15 Alcohol Intake: never Alcohol Intake Frequency:: other Substance Use Type: denies use *Occupational Status:: other Housing: other Household Members: spouse *Travel in the last 8 weeks: None - Psychiatric History Pschychiatric History:: Reports:: Anxiety, Depression Family Hx:: Cancer
--- NOTE | 2019-09-16 11:02 | P.CONS_ITS ---
[facility] Pain Management SOAP Note Subjective:: Patient is a pleasant 58-year-old white female who presents today for follow-up on her right SI joint injection. Patient's been treated for back pain with radiation into her right hip. Today she rates her pain a 5 out of 10. She says that her pain is a 1 out of 10 when she is sitting, however with standing or walking it increases her pain. Patient says that she got about 80% relief with her SI joint injection for about 2 weeks. She says her pain has returned. She says the pain is now radiating into the right hip. She would like to get a another SI joint injection. She is continuing with anti-inflammatories and a home stretching program. Review of Systems General: No recent weight changes, no fever, no sleep disturbances Respiratory: No cough, no shortness of air, no recurring pulmonary infections Cardiovascular/peripheral vascular: No chest pain, no palpitations, no edema, no shortness of breath Gastrointestinal: No new onset incontinence, normal bowel movements reported Genitourinary: No new onset incontinence Musculoskeletal: Back pain, right hip pain Psychiatric: Normal mood/affect Neurological: [Denies weakness in extremities], [denies balance issues] Objective:: Physical exam General: Alert and oriented x3, no acute distress, pleasant and cooperative, [on room air] Lungs: Respirations even and unlabored, symmetrical chest expansion Eyes: PERRL Musculoskeletal: Flexion and extension of lumbar spine somewhat guarded secondary to pain, deep tendon reflexes normal, strength in upper and lower extremities [5/5], [abnormal gait noted], positive Last test, positive distraction test, positive compression test Neurological: Speech clear, plush brusher equal, no gross sensory deficit Assessment:: Sacroiliitis Plan:: We will schedule the patient for another right SI joint injection. She does have point tenderness noted over her right SI joint. She also has notable point tenderness over her right trochanteric bursa. We will also schedule the patient for right greater trochanteric bursa injection. Patient will continue with anti-inflammatories and home stretching program. We will see the patient back following her injections to reassess her symptoms. She has been instructed to contact the clinic if she has any concerns before next appointment. [facility] History I have reviewed the patient's past medical history: Yes Medical History: Reports:: Anxiety, Asthma, Cerebrovascular Accident, Depression, Gastroesophageal Reflux Disease(GERD), Hyperlipidemia, Hypertension, Migraine Denies:: Cancer, Diabetes Mellitus Type 1, Diabetes Mellitus Type 2, MRSA, Seizures *Have you ever received a pneumonia vaccine?: Yes *Have you received a flu vaccine this season?: Yes Other Medical History: Reports: Other Laterality Cases: Left: Arthroscopy Shoulder, Bilateral: Carpal Tunnel Release Other Surgeries: Yes: Cardiac Catheterization, Cholecystectomy, Colonoscopy, C- section, Dilation and Curettage, Diagnostic Lap, EGD, Hysterectomy-Total, Other Amputation: No Fractures: Yes - *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 Smoking Status: Never smoker Tobacco Type: cigarettes #Yrs smoked (if former smoker): 15 Alcohol Intake: never Alcohol Intake Frequency:: other Substance Use Type: denies use *Occupational Status:: other Housing: other Household Members: spouse *Travel in the last 8 weeks: None - Psychiatric History Pschychiatric History:: Reports:: Anxiety, Depression Family Hx:: Cancer
== END ==
PROVIDERS: PCP Family Medicine; Visit Provider Clinical Nurse Specialist Family Health
DX: M46.1 Sacroiliitis, not elsewhere classified (principal)
CPT/HCPCS: 99212

== ENCOUNTER → 2019-12-28 09:52 | Outpatient (POV) | payer MEDICARE, OTHER, SELFPAY ==
[2019-12-28 10:03] VITALS: BP 153/82; PULSE 90; RESP 18; O2SAT 98; BMI 47.4
--- NOTE | 2019-12-28 12:17 | P.CONS_ITS ---
[facility] Pain Management SOAP Note Subjective:: Patient is a pleasant 59-year-old white female who presents today for follow-up after SI joint and greater trochanteric bursa injections. Patient's hips are still quite painful she rates it a 6 out of 10 she is having difficulty walking. Patient has not been seen by Ortho recently she would like an appointment with Dr. Prather I do believe this would be beneficial. I do not want to continue injections that are not beneficial ROS General: no recent weight change, no fever, no sleep disturbances Respiratory: no cough, no shortness of air, no recurring pulmonary infections Cardiovascular/Peripheral Vascular: No chest pain, No palpitations, no edema, no shortness of breath. Gastrointestinal: no new onset incontinence, normal bowel movements reported Genitourinary: no new onset incontinence Musculoskeletal: Bilateral hip pain Psychiatric: normal mood/ affect, Neurological: [denies new onset weakness in extremities], [denies new onset balance issues] Objective:: Physical Exam General: Alert and oriented x3, no acute distress, pleasant and cooperative, [on room air] Lungs: Resps E/U, Symmetrical chest expansion, Eyes: PERRL Musculoskeletal: Flexion and extension of lumbar spine somewhat guarded secondary to pain, deep tendon reflexes normal, strength in upper and lower extremities [5/5], [abnormal gait noted] Neurological: speech clear, dye range operator cloth equal, no gross sensory deficits Assessment:: Chronic sacroiliitis, chronic hip pain, chronic bursa pain Plan:: We will set the patient up with Dr. Prather for consultation in regards to her bilateral hip pain. She is been instructed to call the office if she has any issues prior to her next appointment. Dr. Orozco has reviewed this note and agrees with this plan of care. This note was dictated using voice recognition software and may contain errors or omissions [facility] History I have reviewed the patient's past medical history: Yes Medical History: Reports:: Anxiety, Asthma, Cerebrovascular Accident, Depression, Gastroesophageal Reflux Disease(GERD), Hyperlipidemia, Hypertension, Migraine Denies:: Cancer, Diabetes Mellitus Type 1, Diabetes Mellitus Type 2, MRSA, Seizures *Have you ever received a pneumonia vaccine?: Yes *Have you received a flu vaccine this season?: Yes Other Medical History: Reports: Other. Denies: Blood Transfusion Reaction Laterality Cases: Left: Arthroscopy Shoulder, Bilateral: Carpal Tunnel Release Other Surgeries: Yes: Cardiac Catheterization, Cholecystectomy, Colonoscopy, C- section, Dilation and Curettage, Diagnostic Lap, EGD, Hysterectomy-Total, Other Amputation: No Fractures: Yes - *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 Smoking Status: Never smoker Tobacco Type: cigarettes #Yrs smoked (if former smoker): 15 Alcohol Intake: never Alcohol Intake Frequency:: other Substance Use Type: denies use *Occupational Status:: other Housing: other Household Members: spouse *Travel in the last 8 weeks: None - Psychiatric History Pschychiatric History:: Reports:: Anxiety, Depression Family Hx:: Cancer
== END ==
PROVIDERS: PCP Family Medicine; Visit Provider Clinical Nurse Specialist Family Health
DX: M46.1 Sacroiliitis, not elsewhere classified (principal); M25.559 Pain in unspecified hip; M71.9 Bursopathy, unspecified
CPT/HCPCS: 99212

== ENCOUNTER → 2020-05-02 13:15 | Outpatient (CLI) | payer MEDICARE, OTHER, SELFPAY ==
--- NOTE | 2020-05-02 13:21 | XR_ITS ---
PROCEDURE: XR HIP RT 2-3V W/PELVIS CLINICAL INDICATION: right hip pain COMPARISON: HIPCMRT XR hip RT 2-3V w/pelvis from 02/09/2018 FINDINGS: No fracture or dislocation is evident. No significant degenerative change. No lytic or blastic change. Unremarkable soft tissues. There is minor spurring and sclerosis of the inferior right SI joint IMPRESSION: Minor right sacroiliitis, no significant degenerate change in either hip considering the patient's age. Dictated by: Dr. Michael Sierra MD 05/02/2020 13:[address] Michael Sierra MD in [place] 05/02/2020 13:49
--- NOTE | 2020-05-02 13:21 | XR_ITS ---
PROCEDURE: XR HIP LT 2-3V W/PELVIS CLINICAL INDICATION: left hip pain, chronic COMPARISON: HIPCMRT XR hip RT 2-3V w/pelvis from 02/09/2018 FINDINGS: No fracture or dislocation is evident. No significant degenerative change. No lytic or blastic change. Unremarkable soft tissues. There is moderate spurring of the inferior right SI joint. IMPRESSION: No acute findings. Dictated by: Dr. Michael Sierra MD 05/02/2020 13:[address] Michael Sierra MD in [place] 05/02/2020 13:47
== END ==
PROVIDERS: PCP Family Medicine; Visit Provider Orthopaedic Surgery
DX: M25.552 Pain in left hip (principal); M25.551 Pain in right hip
CPT/HCPCS: 73502

== ENCOUNTER 2020-05-30 13:57 | Outpatient (RCR) | payer MEDICARE, OTHER, SELFPAY ==
--- NOTE | 2020-05-30 14:55 | HMH.PTOPEV ---
PT Outpatient Evaluation Rehab PT Outpatient Evaluation Start: 05/30/20 14:06 Freq: Status: Active Protocol: Document 05/30/20 14:06 ROSANNAEBER (Rec: 05/30/20 14:55 JOSÉ ANTONIO [id number]) Electronically Signed By [facility] 05/30/20 14:06 Outpatient Therapy Subjective History Subjective History This is the initial Physical Therapy evaluation for Laura Mallory. Pt is a 59 y/o female referred to PT for c/o B hip pain. Pt reports pain began ~ 1-1&1/2 years ago. Pt reports she does not remember any trauma or aggravating factor but did state she fell down some stairs and she feels this started a few weeks afterwards. Pt reports pain in hips is constant and unrelenting. Pt reports pain in L hip > R hip, but also states she has a bad back w/ pain into BLE from lumbosacral area. Chief Complaint Pain Symptom Type Ache,Throb,Sharp,Dull,Stabbing Symptoms Relieved By Rest/Positioning,Prescription Meds Symptoms Aggravated By Sitting,Standing,Physical Activity,Walking Prior Functional Limitations None Current Functional Limitations Lifting,Housework,Driving, Sleeping,Standing,Squatting, Recreation Activity,Walking, Stairs,Balance,Bending/ Stooping Symptom Description Constant but Variable Level of pain today (0-10) 6 Pain scale - at its best (0-10) 2 Pain scale - at its worst (0-10) 9 Hip/Knee Eval Gait Observation General Gait Pattern Observation Antalgic Gait,Wide Based Gait, Shuffling Step Assistive Device Assistive Devices Straight Cane Palpation Tenderness bilateral Hip Palpation Findings Tenderness MMT right Hip Flexion Strength Grade 4 Good Hip Abduction Strength Grade 4 Good Hip Adduction Strength Grade 4 Good Hip External Rotation Strength Grade 4 Good Hip Internal Rotation Strength Grade 4 Good Knee Extension Strength Grade 4 Good Knee Flexion Strength Grade 4 Good left Hip Flexion Strength Grade 4- Good- Hip Abduction Strength Grade 4- Good- Hip Adduction Strength Grade 4- Good- Hip External Rotation Strength Gra
== END 2020-05-30 13:59 | disposition home or self-care (01) ==
LOC: PT 13:57
PROVIDERS: PCP Family Medicine; Visit Provider Orthopaedic Surgery
DX: M25.552 Pain in left hip (principal); M25.551 Pain in right hip
CPT/HCPCS: 97110; 97163

== ENCOUNTER → 2020-06-01 13:57 | Outpatient (CLI) | payer MEDICARE, OTHER, SELFPAY ==
--- NOTE | 2020-06-01 14:02 | MR_ITS ---
PROCEDURE: MR CERVICAL SPINE WO CON CLINICAL INDICATION: CERIVCAL PAIN Neck pain and headaches. Right arm pain, numbness, and tingling. X [address] 10/26/2015 COMPARISON: No exams were available for comparison TECHNIQUE: Standard multiplanar multiecho sequences are performed without contrast. 3-D MIP and myelographic images are also rendered and reviewed FINDINGS: There is normal alignment. The cranial cervical junction has an unremarkable appearance. Motion artifact does obscure fine detail. There is straightening of the cervical lordosis. C2-C3: Mild degenerative disc disease. C3-C4: Degenerate disc disease with minimal bulging disc and ridging of the C3-C4 interspace posteriorly causing mild bilateral foraminal narrowing with canal stenosis at 10 mm. No cord impingement. C4-C5: Unremarkable. C5-C6: Mild degenerative disc disease with minimal bulging disc and mild left-sided foraminal narrowing from uncovertebral hypertrophy. C6-C7: There is minimal right paracentral disc protrusion with mild right lateral recess narrowing with canal stenosis of 9 mm. The small right paracentral disc protrusion abuts the cord without displacement or flattening. C7-T1: Unremarkable. IMPRESSION: 1. C3-C4: Degenerate disc disease with minimal bulging disc and ridging of the C3-C4 interspace posteriorly causing mild bilateral foraminal narrowing with canal stenosis at 10 mm. No cord impingement. 2. C5-C6: Mild degenerative disc disease with minimal bulging disc and mild left-sided foraminal narrowing from uncovertebral hypertrophy. 3. C6-C7: There is minimal right paracentral disc protrusion with mild right lateral recess narrowing with canal stenosis of 9 mm. The small right paracentral disc protrusion abuts the cord without displacement or flattening Dictated by: Dioni Morales MD 06/03/2020 13:16 Electronically signed by Dioni Morales MD in [place] 06/03/2020 13:16
== END ==
PROVIDERS: PCP Family Medicine; Visit Provider Orthopaedic Surgery
DX: M54.2 Cervicalgia (principal)
CPT/HCPCS: 72141; 76376

== ENCOUNTER → 2020-07-03 12:44 | Outpatient (CLI) | payer MEDICARE, OTHER, SELFPAY ==
[2020-07-03 14:30] LABS: Coronavirus 19 IgG Antibody Negative (Negative); Coronavirus 19 IgM Antibody Negative (Negative)
== END ==
PROVIDERS: Visit Provider Ophthalmology
DX: H26.9 Unspecified cataract (principal)
CPT/HCPCS: 36415; 86328

== ENCOUNTER 2020-07-04 06:02 | Day surgery (SDC) | payer MEDICARE, OTHER, SELFPAY ==
[2020-06-27 13:28] VITALS: BMI 46.5
[2020-07-04 06:49] VITALS: BP 151/93; PULSE 92; RESP 20; TEMP 36.6; O2SAT 95
[2020-07-04 07:44] VITALS: BP 174/99; PULSE 74; RESP 16; O2SAT 95
[2020-07-04 07:49] VITALS: BP 172/91; PULSE 77; RESP 16; O2SAT 98
[2020-07-04 07:50] VITALS: RESP 16
[2020-07-04 07:54] VITALS: BP 171/87; PULSE 80; RESP 16; O2SAT 99
[2020-07-04 08:04] VITALS: BP 141/105; PULSE 81; RESP 20; TEMP 36.4; O2SAT 93
--- NOTE | 2020-07-04 08:34 | SUR.PHASEII ---
PT STATED IN PREOP THAT SHE FELL IN [facility] 'TRIPPED OVER THE SIDEWALK' YESTERDAY. WHEN ASKED IF SHE SEEKED MEDICAL CARE PT STATED SHE JUST WENT ON HOME. SHE STATED SHE WAS HOLDING ON TO HER AND FELL ON HER RIGHT KNEE AND RIGHT HAND/WRIST AND HURT HER RIGHT SHOULDER. PT STATED SHE HAS INCREASING PAIN AND COULDN'T SLEEP. STATED SHE DOESN'T THINK ANYTHING IS BROKE. RATED HER PAIN 6/10. PT AMBULATING WITH A STRAIGHT CANE. PT STATED HTN DUE TO PROCEDURE AND PAIN. STATED SHE GETS HTN 'WHEN SEE DR'Hamida' I CALLED HER PCP DR BLANCAS AND MADE APPT FOR PT SOON SHE LEAVES FROM HER CATARACT PROCEDURE. PT TO SEE TAMEKA AT DR BLANCAS OFFICE. INSTRUCTED PT AND OF APPT WITH DR BLANCAS OFFICE AND TO GO [facility]ON FINISHED AT [facility] OFFICE
== END 2020-07-04 08:22 | disposition home or self-care (01) ==
LOC: OR 06:04
PROVIDERS: PCP Family Medicine; Visit Provider Ophthalmology
DX: H25.813 Combined forms of age-related cataract, bilateral (principal); H53.8 Other visual disturbances; H02.839 Dermatochalasis of unspecified eye, unspecified eyelid; J45.909 Unspecified asthma, uncomplicated; F41.9 Anxiety disorder, unspecified; I48.91 Unspecified atrial fibrillation; F32.9 Major depressive disorder, single episode, unspecified; K21.9 Gastro-esophageal reflux disease without esophagitis; E78.5 Hyperlipidemia, unspecified; E03.9 Hypothyroidism, unspecified; Z86.73 Personal history of transient ischemic attack (TIA), and cerebral infarction without residual deficits; Z80.9 Family history of malignant neoplasm, unspecified
CPT/HCPCS: 66984; V2632

== ENCOUNTER → 2020-07-17 13:18 | Outpatient (CLI) | payer MEDICARE, OTHER, SELFPAY ==
[2020-07-17 15:25] LABS: Coronavirus 19 IgG Antibody Negative (Negative); Coronavirus 19 IgM Antibody Negative (Negative)
== END ==
PROVIDERS: Visit Provider Ophthalmology
DX: Z01.818 Encounter for other preprocedural examination (principal)
CPT/HCPCS: 36415; 86328

== ENCOUNTER → 2020-07-31 13:03 | Outpatient (CLI) | payer MEDICARE, OTHER, SELFPAY ==
[2020-07-31 15:17] LABS: Coronavirus 19 IgG Antibody Negative (Negative); Coronavirus 19 IgM Antibody Negative (Negative)
== END ==
PROVIDERS: Visit Provider Ophthalmology
DX: Z01.818 Encounter for other preprocedural examination (principal)
CPT/HCPCS: 36415; 86328

== ENCOUNTER 2020-08-01 07:00 | Day surgery (SDC) | payer MEDICARE, OTHER, SELFPAY ==
[2020-08-01] VITALS (7 sets, daily range): BP systolic 141–184; BP diastolic 75–104; PULSE 82–89; RESP 18–24; TEMP 36.7–37; O2SAT 92–100; BMI 104.5
== END 2020-08-01 09:09 | disposition home or self-care (01) ==
LOC: OR 07:01
PROVIDERS: PCP Family Medicine; Visit Provider Ophthalmology
PROC: (CPT 66984; principal; 2020-08-01 09:30)
DX: H25.813 Combined forms of age-related cataract, bilateral (principal); H53.8 Other visual disturbances; H02.839 Dermatochalasis of unspecified eye, unspecified eyelid; F41.9 Anxiety disorder, unspecified; M19.90 Unspecified osteoarthritis, unspecified site; J45.909 Unspecified asthma, uncomplicated; I48.91 Unspecified atrial fibrillation; F32.9 Major depressive disorder, single episode, unspecified; E78.5 Hyperlipidemia, unspecified; E03.9 Hypothyroidism, unspecified; K21.9 Gastro-esophageal reflux disease without esophagitis; Z86.73 Personal history of transient ischemic attack (TIA), and cerebral infarction without residual deficits
CPT/HCPCS: 66984; V2632

== ENCOUNTER → 2021-07-25 14:25 | Outpatient (CLI) | payer MEDICARE, OTHER, SELFPAY ==
--- NOTE | 2021-07-25 14:29 | XR_ITS ---
PROCEDURE: XR LUMBAR SPINE MIN 4V CLINICAL INDICATION: LUMBAGO W/ SCIATICA RT AND LT SIDE COMPARISON: CT CT LUMBAR SPINE WO CON from 08/26/2019 FINDINGS: Normal alignment. There is mild wedging of L2 similar to the previous L-spine CT of 08/26/2009. There is retrolisthesis of L2 on L3 7 mm. Degenerative disc disease L2-L3 L4-5 and L5-S1. No acute fracture or dislocation. There are anterior osteophytes at L1-L2 and L3. The SI joints have an unremarkable appearance. Other findings:None. IMPRESSION: Chronic degenerative changes with chronic mild wedge compression changes of L2. No acute finding Dictated by: Dioni Morales MD 07/25/2021 15:30 Dioni Morales MD in [facility] 07/25/2021 15:30
== END ==
PROVIDERS: PCP Family Medicine; Visit Provider Family Medicine
DX: M54.41 Lumbago with sciatica, right side (principal); M54.42 Lumbago with sciatica, left side
CPT/HCPCS: 72110

== ENCOUNTER 2021-11-25 20:42 | Emergency (ER) | payer MEDICARE, OTHER, SELFPAY ==
[2021-11-25 20:43] VITALS: BP 149/89; PULSE 67; RESP 16; TEMP 37.4; O2SAT 92; BMI 48.2
--- NOTE | 2021-11-25 22:26 | CT_ITS ---
PROCEDURE INFORMATION: Exam: CT Abdomen And Pelvis With Contrast Exam date and time: 11/25/2021 10:26 PM Age: 61 years old Clinical indication: Abdominal pain; Localized; Right lower quadrant (rlq); Prior surgery; Surgery date: 6+ months; Surgery type: Hysterectomy c section gb; Additional info: Rlq pain and tenderness on exam TECHNIQUE: Imaging protocol: Computed tomography of the abdomen and pelvis with contrast. Total images: 374 Radiation optimization: All CT scans at this facility use at least one of these dose optimization techniques: automated exposure control; mA and/or kV adjustment per patient size (includes targeted exams where dose is matched to clinical indication); or iterative reconstruction. Contrast material: ISOVUE; Contrast volume: 75 ml; Contrast route: IV; COMPARISON: CR CXR2V XR chest 2V 03/10/2019 8:01 PM FINDINGS: Lungs: Dependent alveolar opacities in the lower lobes and lingula most likely representing atelectasis. Patchy basilar infiltrates considered less likely. Heart: Heart size normal. Mediastinal space: The visualized distal esophagus is largely contracted without gross abnormality. Liver: Granulomatous calcifications in the liver. Normal contour. No mass lesions. No intrahepatic biliary ductal dilatation. Gallbladder and bile ducts: Prior cholecystectomy with no significant dilatation of the common bile duct. Pancreas: Moderate pancreatic atrophy without acute abnormality. No pancreatic ductal dilatation. Spleen: Granulomatous calcifications in the spleen without acute splenic abnormality. Adrenal glands: Normal. No adrenal mass. Kidneys and ureters: No acute abnormalities. No hydronephrosis or hydroureter. No urinary tract stones are identified. Stomach and bowel: The stomach is largely contracted without gross abnormality. Duodenal diverticulum measuring 3.5 cm. Another superior posterior to this measures 3.5 cm. The small bowel is nondilated with no gross abnormality. Mild diverticulosis involving the distal colon without evidence of acute diverticulitis. Appendix: The appendix is not identified. No secondary signs of appendicitis. Intraperitoneal space: No free fluid or air. Vasculature: Mild atherosclerotic aortoiliac calcification without aneurysm. Lymph nodes: No adenopathy. Urinary bladder: Unremarkable as visualized. Reproductive: Prior hysterectomy. Bones/joints: No acute osseous abnormalities. Osteopenia. Mild chronic superior endplate compression of L2. Slight degenerative retrolisthesis L2-L3 with moderate disc space narrowing. Soft tissues: 10 mm noncalcified nodule in the inferior medial right breast on series 5, image 1, incompletely visualized. Nonemergent evaluation with diagnostic mammogram recommended. Unremarkable. IMPRESSION: 1. No definite acute process. 2. The appendix is not identified. No secondary signs of appendicitis. 3. There is a 10 mm nodule in the inferior medial right breast which is incompletely visualized. Nonemergent evaluation with diagnostic mammography recommended. 4. Bilateral basilar alveolar opacities are most likely dependent atelectasis, patchy basilar infiltrate considered less likely. 5. Diverticulosis without evidence of diverticulitis. 6. Additional nonemergent findings detailed above.
--- NOTE | 2021-11-25 22:28 | XR_ITS ---
PROCEDURE INFORMATION: Exam: XR Chest Exam date and time: 11/25/2021 10:28 PM Age: 61 years old Clinical indication: Shortness of breath and other: Asthma; Additional info: Asthma, intermittent hypoxia TECHNIQUE: Imaging protocol: XR of the chest. Views: 1 view. Total images: 1 COMPARISON: CR CXR2V XR chest 2V 03/10/2019 8:01 PM FINDINGS: Lungs: Low lung volumes. Pulmonary vasculature grossly normal. Chronic alveolar opacities in the left base consistent with atelectasis or scarring unchanged. No gross pulmonary infiltrates. Pleural spaces: No pleural effusion. No pneumothorax. Heart/Mediastinum: Heart size normal. No tracheal/mediastinal shift. Vasculature: Mild aortic ectasia/tortuosity. Bones/joints: No acute osseous abnormalities are identified. IMPRESSION: 1. No acute process is evident. 2. Mild chronic bandlike atelectasis or scarring in the left base.
--- NOTE | 2021-11-25 22:29 | HMH.EDGENADL ---
ED Disposition Clinical Impression: Abdominal pain, Acute herpes zoster neuropathy Disposition: Home, Self-Care Condition on Discharge: Good Prescriptions: Valacyclovir HCl [Valacyclovir] 1,000 mg PO TID 7 Days #21 tab Transmission Status: Pending to [facility] Referrals: Manas Jenknis MD [Primary Care Provider] - - Critical Care Critical Care Time: No Attestation: On 11/25/21, the high probability of a clinically significant, sudden or life threatening deterioration of the following system(s) required my full and direct attention, intervention and personal management. The time I documented below is in addition to time spent performing reported procedures but includes the following listed in this critical care notation. Medical Decision Making - Adonay Inquiry Pt receiving controlled substance: No Vital Signs: 11/25/21 20:43 11/25/21 22:30 11/25/21 23:00 Temperature 99.4 F Temperature Source Oral Pulse Rate 86 86 Pulse Rate [Left] 67 Respiratory Rate 16 Blood Pressure 156/89 H 151/98 H Blood Pressure [Right Arm] 149/89 H Blood Pressure Mean [Right Arm] 109 02 Sat by Pulse Oximetry 92 L 91 L 91 L Oxygen Delivery Method Nasal Cannula Room Air Room Air 11/25/21 23:30 11/26/21 00:00 11/26/21 00:30 Temperature Temperature Source Pulse Rate 88 87 85 Pulse Rate [Left] Respiratory Rate Blood Pressure 154/92 H 155/97 H 159/90 H Blood Pressure [Right Arm] Blood Pressure Mean [Right Arm] 02 Sat by Pulse Oximetry 91 L 92 L 90 L Oxygen Delivery Method Room Air Room Air Room Air - Lab Data Lab Results 11/25/21 22:48: WBC 10.3, RBC 4.66, Hgb 13.5, Hct 42.9, MCV 91.9, MCH 29.0, MCHC 31.6 L, RDW 15.7, Plt Count 284, MPV 9.4, Neut % (Auto) 81.7 H, Lymph % (Auto) 12.1, [place] % (Auto) 4.4, Eos % (Auto) 0.8, Baso % (Auto) 1.1, Neut # (Auto) 8.4 H, Lymph # (Auto) 1.3, [place] # (Auto) 0.5, Eos # (Auto) 0.1, Baso # (Auto) 0.1 11/25/21 22:48: Sodium 136, Potassium 5.1, Chloride 100, Carbon Dioxide 31 H, Anion Gap 10.1, BUN 15, Creatinine 0.70, Estimated Creat Clear 55, Estimated GFR 85, Est GFR ( Amer) 103, Glucose 109 H, Calcium 9.1, Total Bilirubin 0.8, AST 42 H, ALT 29, Alkaline Phosphatase 140 H, Total Protein 7.5, Albumin 4.1, Globulin 3.4 H, Albumin/Globulin Ratio 1.2 11/25/21 23:05: Lactate 0.9 Result diagrams: 11/25/21 22:48 11/25/21 22:48 Orders (Tests/Meds): ED MEDICATIONS Generic Name Dose Route Start Last Admin Trade Name Freq PRN Reason Stop Dose Admin Albuterol Sulfate 2 puffs 11/26/21 02:00 Albuterol-Hfa 90mcg/Puff Inhaler 8gm IH 12/26/21 01:59 Q4RT JAMES Discontinued Medications Generic Name Dose Route Start Last Admin Trade Name Freq PRN Reason Stop Dose Admin Acetaminophen 1,000 mg 11/25/21 22:27 11/25/21 23:43 Acetaminophen 500mg Tab PO 11/25/21 22:28 Not Given ONCE ONE Dicyclomine HCl 20 mg 11/25/21 22:29 11/25/21 22:58 Dicyclomine 10mg Capsule PO 11/25/21 22:30 20 mg ONCE ONE Administration Iopamidol 75 ml 11/26/21 00:00 11/26/21 00:01 Iopamidol-370 (76%);100ml Bottle IV 11/26/21 00:01 75 ml ONCE ONE Administration Miscellaneous 1 unit 11/26/21 01:19 Aerochamber/Optihaler MC 11/26/21 01:20 ONCE ONE Ondansetron HCl 4 mg 11/25/21 22:28 11/25/21 22:58 Ondansetron 4mg/2ml Vial IV 11/25/21 22:29 4 mg ONCE ONE Administration Sodium Chloride 10 ml 11/26/21 00:00 11/26/21 00:01 Sodium Chloride 0.9% 10ml Syr (Rad Only) IV 11/26/21 00:01 10 ml ONCE ONE Administration ORDERS Category Date Time Status Urinalysis-Acute [Urinalysis and Microscopic] Stat Lab 11/25/21 22:25 Ordered Medical Decision Narrative: ddx includes shingles, intraabdominal infection, uti. well appearing, NAD, nonperitonitic exam on abd. Morbid obesity/habitus obscures exam but no gross skin changes and intermittent ttp to rlq on repeated exams. also with low spo2 intermittently 90
[2021-11-25 22:30] VITALS: BP 156/89; PULSE 86; O2SAT 91
[2021-11-25 23:00] VITALS: BP 151/98; PULSE 86; O2SAT 91
[2021-11-25 23:02] LABS: Basophils # 0.1 K/mm3 (0-0.2); Basophils % 1.1 % (0.1-2.0); Eosinophils # 0.1 K/mm3 (0.0-0.4); Eosinophils % 0.8 % (0.1-12.0); Hematocrit 42.9 % (37.0-47.0); Hemoglobin 13.5 g/dL (12.2-16.2); Lymphocytes # 1.3 K/mm3 (0.7-4.5); Lymphocytes % 12.1 % (10-50); Mean Corpuscular HGB Conc 31.6 g/dL (31.8-35.4); Mean Corpuscular Volume 91.9 fl (81-99); Mean Platelet Volume 9.4 fl (7.4-10.4); Monocytes # 0.5 K/mm3 (0.1-1.0); Monocytes % 4.4 % (1.7-9.3); Neutrophils # 8.4 K/mm3 (1.8-7.8); Neutrophils % 81.7 % (37.0-80.0); Platelet Count 284 K/mm3 (142-424); Red Blood Count 4.66 M/mm3 (4.20-5.40); Red Cell Distribution Width 15.7 % (11.5-17.5); White Blood Count 10.3 K/mm3 (4.8-10.8)
[2021-11-25 23:09] LABS: Chloride 100 mmol/L (98-107); Potassium 5.1 mmoL/L (3.5-5.1); Sodium 136 mmol/L (136-145)
[2021-11-25 23:12] LABS: Alanine Aminotransferase 29 U/L (12-78); Albumin Level 4.1 g/dl (3.5-5.0); Albumin/Globulin Ratio 1.2 (1.1-1.8); Alkaline Phosphatase 140 U/L (38-126); Anion Gap 10.1 mEq/L (5-15); Aspartate Amino Transferase 42 U/L (14-36); Bilirubin,Total 0.8 mg/dl (0.2-1.3); Blood Urea Nitrogen 15 mg/dl (7-17); Carbon Dioxide 31 mmol/L (22.0-30.0); Creatinine Clearance Estimated 55 mL/min (50-200); Estimated Glomerular Filt Rate 85 ml/min (>60); GFR (African American) 103 ML/MIN (>60); Globulin 3.4 g/dL (1.3-3.2); Total Protein,Serum 7.5 g/dl (6.3-8.2)
[2021-11-25 23:13] LABS: Calcium 9.1 mg/dl (8.4-10.2); Glucose 109 mg/dl (74-100)
[2021-11-25 23:21] LABS: Lactic Acid 0.9 mmol/L (0.7-2.1)
[2021-11-25 23:30] VITALS: BP 154/92; PULSE 88; O2SAT 91
[2021-11-26] VITALS: BP 155/97; PULSE 87; O2SAT 92
[2021-11-26 00:30] VITALS: BP 159/90; PULSE 85; O2SAT 90
[2021-11-26 01:43] VITALS: BP 134/82; PULSE 82; RESP 18; TEMP 36.8; O2SAT 92
== END 2021-11-26 01:46 | disposition home or self-care (01) ==
PROVIDERS: Emergency Provider Student in an Organized Health Care Education/Training Program; PCP Family Medicine
DX: R10.31 Right lower quadrant pain (principal); K21.9 Gastro-esophageal reflux disease without esophagitis; F41.9 Anxiety disorder, unspecified; I10 Essential (primary) hypertension; E78.5 Hyperlipidemia, unspecified
CPT/HCPCS: 71045; 74177; 80053; 83605; 85025; 96374; 99282; J2405; Q9967

== ENCOUNTER → 2021-12-06 12:31 | Outpatient (POV) | payer MEDICARE, OTHER, SELFPAY ==
[2021-12-06 13:25] VITALS: BP 168/87; PULSE 101; RESP 18; O2SAT 94; BMI 56.5
--- NOTE | 2021-12-06 14:44 | HMH.PMCON ---
Assessment and Plan (1) Degenerative joint disease (DJD) of lumbar spine Status: Chronic Category: Medical Code(s): M47.816 - Spondylosis without myelopathy or radiculopathy, lumbar region (2) Lumbar radiculopathy Status: Chronic Category: Medical Code(s): M54.16 - Radiculopathy, lumbar region (3) Spinal stenosis Status: Chronic Category: Medical Code(s): M48.00 - Spinal stenosis, site unspecified - Assessment and plan all Dx Assessment and Plan for all problems:: Patient is not interested in injective therapy. She does report to have not gotten any significant relief with the injections and says that she has significant headaches following corticosteroids for more than 5 days following injections. She is unable to take anti-inflammatories due to GI upset. She has tried physical therapy for more than 6 weeks and has gotten minimal relief. She does attempt home stretching to the best of her ability. Patient is not diabetic and she is not on any anticoagulation therapy. Patient, given her may benefit from spinal cord stimulation. Per the CT scan, the patient does have degenerative disc disease lumbar spine with lumbar radicular symptoms as well as ligamentum flavum hypertrophy. Per the patient's x-ray from 2020 she does have what looks to be a mild wedge compression change at L2. This is not noted on the patient's CT scan. She is not interested in further imaging. She is interested in proceeding with possible spinal cord stimulation. She has tried injective therapy which gave her minimal relief long-term. We will schedule her for psychological if she is an appropriate candidate. Follow-up with her after the psychological evaluation to discuss further plan of care. HPI - Data of Consult Patient: new to practice Consult date: 12/06/21 Requesting Physician: Raina Hogue APRN - Consult Narrative Reason for consult: Low back pain History of present illness: Ms. Mallory is a 61 year old female who presents today for consultation for chronic low back pain. The patient was seen in our clinic in the past and did undergo injective therapy. The injections gave her minimal relief. She does have pain that has progressively worsened over the years. She says she is having pain in the low back with radiation into legs and feet. She is not having any numbness at this time. She does say the pain worsens with standing and walking and does improve with sitting. She also reports the pain to be traveling into bilateral buttock, bilateral groin and bilateral hips. She is unable to take anti-inflammatories due to GI upset. She has tried physical therapy for greater than 6 weeks and got no significant relief. She has had injective therapy which gave her minimal relief. Patient's last CT scan low back was performed 08/26/2019. She did undergo an x-ray lumbar spine on 07/25/2021. She has not had any further imaging since then. She does report to be having occasional heaviness and weakness in lower extremities. Patient denies any changes in bowel or bladder habits. She denies any saddle anesthesia. CC: Raina Hogue APRN [facility] History I have reviewed the patient's past medical history: Yes Medical History: Reports:: Anxiety, Asthma, Cerebrovascular Accident, Depression, Gastroesophageal Reflux Disease(GERD), Hyperlipidemia, Hypertension, Migraine, Transient Ischemic Attacks (TIA) Denies:: Cancer, Diabetes Mellitus Type 1, Diabetes Mellitus Type 2, Internal Pacemaker, MRSA, Seizures *Have you ever received a pneumonia vaccine?: No *Have you received a flu vaccine this season?: No Other Medical History: Reports: Anemia, Arthritis, Blood Transfusion Reaction, Other Laterality Cases: Left: Arthroscopy Shoulder, Bilateral: Carpal Tunnel Release Other Surgeries: Yes: Cardiac Catheterization, Cholecystectomy, Colonoscopy, , Dilation and Curettage, Diagnostic Lap, EGD, Hysterectomy-Total, Other. No: Pacemaker Amputation:
== END ==
PROVIDERS: Visit Provider Clinical Nurse Specialist Family Health
DX: M47.896 Other spondylosis, lumbar region (principal); M54.16 Radiculopathy, lumbar region; M48.00 Spinal stenosis, site unspecified
CPT/HCPCS: 99212; G0463

== ENCOUNTER → 2022-01-22 13:26 | Outpatient (CLI) | payer MEDICARE, OTHER, SELFPAY ==
--- NOTE | 2022-01-22 13:36 | XR_ITS ---
FINAL REPORT CLINICAL HISTORY: PAIN IN LEFT AND RIGHT KNEE FINDINGS: Three views of the left knee reveal no evidence of fracture or dislocation. The bony alignment is normal. There are mild degenerative changes. A small joint effusion is present. No localized soft tissue abnormality is seen. IMPRESSION: Mild degenerative changes with a small joint effusion. Reviewed, Interpreted and Dictated by Neal Penny III, MD Transcribed by Lindsey Landa Authenticated by Neal Penny III, MD on 01/22/2022 02:35:18 PM [facility]
--- NOTE | 2022-01-22 13:36 | XR_ITS ---
FINAL REPORT CLINICAL HISTORY: right knee pain FINDINGS: Three views of the right knee reveal no evidence of fracture or dislocation. The bony alignment is normal. There are moderate degenerative changes. A moderate joint effusion is present. No localized soft tissue abnormality is identified. IMPRESSION: Moderate degenerative change with a moderate joint effusion. Reviewed, Interpreted and Dictated by Neal Penny III, MD Transcribed by Lindsey Landa Authenticated by Neal Penny III, MD on 01/22/2022 02:35:[address] [facility]
[2022-01-22 15:16] LABS: Basophils # 0.1 K/mm3 (0-0.2); Basophils % 0.8 % (0.1-2.0); Eosinophils # 0.1 K/mm3 (0.0-0.4); Eosinophils % 0.7 % (0.1-12.0); Hematocrit 43.5 % (37.0-47.0); Hemoglobin 13.7 g/dL (12.2-16.2); Lymphocytes # 1.4 K/mm3 (0.7-4.5); Lymphocytes % 12.2 % (10-50); Mean Corpuscular HGB Conc 31.4 g/dL (31.8-35.4); Mean Corpuscular Hemoglobin 30.2 pg (27.0-31.2); Mean Platelet Volume 10.4 fl (7.4-10.4); Monocytes # 0.5 K/mm3 (0.1-1.0); Monocytes % 3.8 % (1.7-9.3); Neutrophils # 9.6 K/mm3 (1.8-7.8); Neutrophils % 82.5 % (37.0-80.0); Platelet Count 302 K/mm3 (142-424); Red Blood Count 4.53 M/mm3 (4.20-5.40); Red Cell Distribution Width 15.7 % (11.5-17.5); White Blood Count 11.6 K/mm3 (4.8-10.8)
[2022-01-22 15:24] LABS: Anion Gap 11.7 mEq/L (5-15); Blood Urea Nitrogen 13 mg/dl (7-17); Calcium 8.4 mg/dl (8.4-10.2); Carbon Dioxide 31 mmol/L (22.0-30.0); Chloride 99 mmol/L (98-107); Estimated Glomerular Filt Rate 101 ml/min (>60); GFR (African American) 123 ML/MIN (>60); Glucose 91 mg/dl (74-100); Potassium 4.7 mmoL/L (3.5-5.1); Sodium 137 mmol/L (136-145)
[2022-01-22 15:40] LABS: 25-OH Vitamin D, Total 23.6 ng/mL (30-100)
[2022-01-30 14:33] LABS: Immunoglobulin E, Total 30 IU/mL (6-495)
== END ==
PROVIDERS: Nurse Practitioner; PCP Family Medicine; Visit Provider Internal Medicine Cardiovascular Disease
DX: E86.0 Dehydration (principal); R07.89 Other chest pain; E55.9 Vitamin D deficiency, unspecified; J45.50 Severe persistent asthma, uncomplicated; M25.562 Pain in left knee; M25.561 Pain in right knee
CPT/HCPCS: 36415; 73562; 80048; 82306; 82785; 83520; 85025

== ENCOUNTER → 2022-01-22 14:25 | Outpatient (POV) | payer MEDICARE, OTHER, SELFPAY | PROVIDERS: Visit Provider Dermatology | DX: Z00.00 Encounter for general adult medical examination without abnormal findings (principal) ==

== ENCOUNTER → 2022-04-04 10:43 | Outpatient (POV) | payer MEDICARE, OTHER, SELFPAY ==
[2022-04-04 11:09] VITALS: BP 120/62; PULSE 82; RESP 18; TEMP 36.6; O2SAT 90; BMI 50.2
--- NOTE | 2022-04-04 11:39 | HMH.PAINSOAP ---
[facility] Pain Management SOAP Note Subjective:: Patient is a pleasant 59-year-old female who presents today as a follow-up. Patient is current being treated for degenerative disc disease of lumbar spine with lumbar radiculopathy symptoms, spinal stenosis. We last saw this patient in November 2021 when she established with us. At that time, patient was complaining of chronic low back pain that radiates to bilateral lower extremities. We discussed with her that we can do injective therapy at that time by she was not interested in that. She said that she had injective therapy in the past that provided minimal relief. We did discuss spinal cord stimulator therapy that the patient was a little bit more interested in. We referred her for psychiatric evaluation. From her psych eval on January 2022, patient is competent and appropriate to get the spinal cord stimulator therapy. Then, patient did come for her psychiatric evaluation follow up. She says that she was denied by insurance for the SCS. She is currently being managed with Percocet 10 mg 3 times a day and lorazepam 1 mg 3 times a day that are prescribed by Dr. Manas Jenkins. Dr. Jenkins did move to [place], [place] and patient says that she might follow him there to see if he could continue her oral medications. Today, she is complaining of right upper buttock pain that radiates down to her right leg. She is on a wheelchair today but she says that she can typically walk for short periods of time. Review of Systems: General: No recent weight changes, no fever, no sleep disturbances Respiratory: No cough, no shortness of air, no recurring pulmonary infections Cardiovascular/peripheral vascular: No chest pain, no palpitations, no edema, no shortness of breath Gastrointestinal: No new onset incontinence, normal bowel movements reported Genitourinary: No new onset incontinence Musculoskeletal: Low back pain, right leg pain Psychiatric: [Normal mood/affect] Neurological: [Denies weakness in extremities], [denies balance issues] Objective:: Physical Exam: General: Alert and oriented x3, no acute distress, pleasant and cooperative Lungs: Respirations even and unlabored, symmetrical chest expansion Eyes: PERRL Musculoskeletal: Flexion and extension of lumbar [spine] somewhat guarded secondary to pain, [antalgic gait noted]; right SI is positive for ALOK, [place]'s, [place]'s, [place]'s, compression, and distraction. Patient is also tender to palpation around the right greater trochanteric bursa Neurological: Speech clear, no gross sensory deficit Assessment:: Degenerative disc disease of lumbar spine with lumbar radiculopathy symptoms, spinal stenosis, right-sided sacroiliitis, right greater trochanteric bursitis Plan:: Patient presents today with worsening right upper buttock pain that radiates down the right leg. After examination, patient does have some right-sided sacroiliitis and right greater trochanteric bursitis. I discussed with the patient that we typically manage this pain with injective therapy. Patient is willing to try this injection. We will schedule the patient for a right SI injection and right greater trochanteric bursa injection. Risks and benefits of the procedure have been explained to the patient. Patient would like to proceed with the procedure. I also discussed with the patient that we cannot continue any of her oral pain medications. She will have to reach out to Dr. Jenkins to see if he would continue these medications. I also discussed with the patient that since she was denied by insurance for spinal cord stimulator therapy, we will need to try lumbar epidural steroid injections to see if this would help the patient. Patient has been having acute pain in the last couple weeks. I will start the patient on prednisone 20 mg twice a day for 5 days. Patient has been instructed to contact the clinic with any concerns before the next appointment. Dr. Orozco has reviewed this
== END ==
PROVIDERS: Visit Provider Student in an Organized Health Care Education/Training Program
DX: M51.16 Intervertebral disc disorders with radiculopathy, lumbar region (principal); M48.00 Spinal stenosis, site unspecified; M46.1 Sacroiliitis, not elsewhere classified; M70.61 Trochanteric bursitis, right hip
CPT/HCPCS: 99212; G0463

== ENCOUNTER 2022-05-23 13:42 | Emergency (ER) | payer MEDICARE, OTHER, SELFPAY ==
[2022-05-23 13:55] VITALS: BP 167/87; PULSE 93; RESP 24; TEMP 37; O2SAT 91; BMI 56.5
--- NOTE | 2022-05-23 14:00 | PC.NURSE ---
PATIENT SENT TO ER PER Mars SANZ APRN FOR FUTHER EVALUATION. REPORT GIVEN TO Shanti LEIGH RN BY Mars SANZ APRN
[2022-05-23 14:05] VITALS: BP 167/87; PULSE 93; RESP 20; TEMP 37; O2SAT 87; BMI 33.3
--- NOTE | 2022-05-23 14:05 | ECG_ITS ---
APPROVED REPORT Exam: Resting ECG HR:90 bpm ECG Measurements Heart Rate 90 AXES IL 180 P 60 QRSd 77 QRS -17 QT 363 T 74 QTc 411 Conclusion SINUS RHYTHM LOW QRS VOLTAGE IN PRECORDIAL LEADS [QRS DEFLECTION < 1.0 mV IN CHEST LEADS] BORDERLINE ECG UNCONFIRMED REPORT Electronically signed by : Manas Jalloh MD 05/23/2022 16:55:25
--- NOTE | 2022-05-23 14:14 | XR_ITS ---
FINAL REPORT CLINICAL HISTORY: shortness of breath non smoker COMPARISON: 11/25/2021 FINDINGS: SINGLE-VIEW CHEST The heart size is normal. The mediastinum is normal. There is mild bibasilar atelectasis or scar, stable. There is no pneumothorax. IMPRESSION: Stable bibasilar atelectasis or scar. Reviewed, Interpreted and Dictated by Neal Penny III, MD Transcribed by Radha Melendrez Authenticated and [facility]
--- NOTE | 2022-05-23 14:15 | PC.NURSE ---
IV established and blood sent to the lab
--- NOTE | 2022-05-23 14:15 | HMH.EDUTC ---
[facility] [place] Disposition Clinical Impression: Shortness of breath Disposition: Still a Patient Condition on Discharge: Fair Referrals: Manas Jenkins MD [Primary Care Provider] - Medical Decision Making - Adonay Inquiry Pt receiving controlled substance: No Adonay was queried for this patient: No Vital Signs: 05/23/22 13:55 05/23/22 14:05 05/23/22 14:55 Temperature 98.6 F 98.6 F Temperature Source Oral Oral Pulse Rate 101 H Pulse Rate [Left Radial] 93 H 93 H Respiratory Rate 24 20 Blood Pressure [Left Arm] 167/87 H Blood Pressure [Right Arm] 167/87 H Blood Pressure Mean [Left Arm] 113 Blood Pressure Mean [Right Arm] 113 Blood Pressure Source [Left Arm] Automatic Cuff Blood Pressure Position [Left Arm] Sitting 02 Sat by Pulse Oximetry 91 L 87 L Oxygen Delivery Method Room Air Room Air Oxygen Flow Rate (LPM) 05/23/22 15:00 Temperature Temperature Source Pulse Rate Pulse Rate [Left Radial] 87 Respiratory Rate 17 Blood Pressure [Left Arm] 144/82 H Blood Pressure [Right Arm] Blood Pressure Mean [Left Arm] 102 Blood Pressure Mean [Right Arm] Blood Pressure Source [Left Arm] Blood Pressure Position [Left Arm] 02 Sat by Pulse Oximetry 95 Oxygen Delivery Method Nasal Cannula Oxygen Flow Rate (LPM) 1 - Lab Data Lab Results 05/23/22 14:13: WBC 12.7 H, RBC 4.43, Hgb 13.4, Hct 39.0, MCV 88.0, MCH 30.1, MCHC 34.2, RDW 15.9, Plt Count 306, MPV 8.4, Neut % (Auto) 84.4 H, Lymph % (Auto) 8.7 L, [place] % (Auto) 4.2, Eos % (Auto) 1.9, Baso % (Auto) 0.7, Neut # (Auto) 10.7 H, Lymph # (Auto) 1.1, [place] # (Auto) 0.5, Eos # (Auto) 0.2, Baso # (Auto) 0.1 05/23/22 14:13: Sodium 136, Potassium 4.1, Chloride 98, Carbon Dioxide 33 H, Anion Gap 9.1, BUN 10, Creatinine 0.50 L, Estimated Creat Clear 84, Estimated GFR 125, Est GFR ( Amer) 151, Glucose 126 H, Calcium 8.2 L, Total Bilirubin 0.4, AST 27, ALT 23, Alkaline Phosphatase 133 H, Total Protein 7.2, Albumin 4.0, Globulin 3.2, Albumin/Globulin Ratio 1.3 05/23/22 14:13: Troponin I 0.01, NT-Pro-B Natriuret Pep 177 H 05/23/22 14:16: SARS-CoV-2 (PCR) Not detected, Influenza A Untype (PCR) Not detected, Influenza Type B (PCR) Not detected Result diagrams: 05/23/22 14:13 05/23/22 14:13 Orders (Tests/Meds): ED MEDICATIONS Generic Name Dose Route Start Last Admin Trade Name Freq PRN Reason Stop Dose Admin Sodium Chloride 10 ml 05/23/22 14:15 Sodium Chloride 0.9% 10ml Flush Syringe IV 06/22/22 14:14 NEEDED PRN Maintain IV Site Discontinued Medications Generic Name Dose Route Start Last Admin Trade Name Freq PRN Reason Stop Dose Admin Albuterol/Ipratropium 3 ml 05/23/22 14:49 05/23/22 14:55 Ipratropium/Albuterol 3 Ml Neb IH 05/23/22 14:50 3 ml ONCE ONE Administration Iopamidol 70 ml 05/23/22 15:49 05/23/22 15:50 Iopamidol-370 (76%);100ml Bottle IV 05/23/22 15:50 70 ml ONCE ONE Administration Methylprednisolone Sodium Succinate 125 mg 05/23/22 14:49 05/23/22 15:21 Methylprednisolone Sod Succ 125mg Vial IV 05/23/22 14:50 125 mg ONCE ONE Administration Sodium Chloride 10 ml 05/23/22 15:49 05/23/22 15:50 Sodium Chloride 0.9% 10ml Syr (Rad Only) IV 05/23/22 15:50 10 ml ONCE ONE Administration Sodium Chloride 50 ml 05/23/22 15:49 05/23/22 15:50 0.9 % Sodium Chloride 50 Ml Vial IV 05/23/22 15:50 50 ml ONCE ONE Administration ORDERS Category Date Time Status Troponin I Q3H Lab 05/23/22 17:45 Ordered Troponin I Q3H Lab 05/23/22 20:45 Ordered Medical Decision Narrative: Patient sitting in wheelchair sweating profusely, complaining of shortness of breath with SPO2 fluctuating between 87% and the highest 91% Patient reports tight feeling in her chest like she cannot get a deep breath that has continued to get worse over the last 2 days Due to low SPO2 and complaints of tightness in chest discussed with patient an recommended transfer to the ED for further wo
--- NOTE | 2022-05-23 14:18 | HMH.EDGENADL ---
ED Disposition Clinical Impression: Pneumonia Qualifiers: Pneumonia type: due to unspecified organism Laterality: unspecified laterality Lung location: lower lobe of lung Qualified Code(s): J18.9 - Pneumonia, unspecified organism Asthma with exacerbation Qualifiers: Asthma severity: moderate Asthma persistence: persistent Qualified Code(s): J45.41 - Moderate persistent asthma with (acute) exacerbation Disposition: Home, Self-Care Condition on Discharge: Good Instructions: DI for Shortness of Breath, DI for Pneumonia -- Adult Additional Instructions: Levaquin and prednisone as prescribed. Use your albuterol inhaler 4 times a day for the next 2 days. Additional instructions for PNEUMONIA: Take antibiotics as prescribed. See your physician as soon as possible for further evaluation. Return immediately if you have an uncontrollable fever greater than 102 degrees, difficulty breathing or shortness of breath, persistent vomiting, or severe chest pain. Prescriptions: levoFLOXacin [Levaquin 500mg tab] 500 mg PO DAILY #9 tab Transmission Status: Pending to [facility] predniSONE [Prednisone 20mg Tab] 20 mg PO BID #10 tab Transmission Status: Pending to [facility] Referrals: Manas Jenkins MD [Primary Care Provider] - - Critical Care Critical Care Time: No Attestation: On 05/23/22, the high probability of a clinically significant, sudden or life threatening deterioration of the following system(s) required my full and direct attention, intervention and personal management. The time I documented below is in addition to time spent performing reported procedures but includes the following listed in this critical care notation. Medical Decision Making - Adonay Inquiry Pt receiving controlled substance: No Vital Signs: 05/23/22 13:55 05/23/22 14:05 05/23/22 14:55 Temperature 98.6 F 98.6 F Temperature Source Oral Oral Pulse Rate 101 H Pulse Rate [Left Radial] 93 H 93 H Respiratory Rate 24 20 Blood Pressure [Left Arm] 167/87 H Blood Pressure [Right Arm] 167/87 H Blood Pressure Mean [Left Arm] 113 Blood Pressure Mean [Right Arm] 113 Blood Pressure Source [Left Arm] Automatic Cuff Blood Pressure Position [Left Arm] Sitting 02 Sat by Pulse Oximetry 91 L 87 L Oxygen Delivery Method Room Air Room Air Oxygen Flow Rate (LPM) 05/23/22 15:00 Temperature Temperature Source Pulse Rate Pulse Rate [Left Radial] 87 Respiratory Rate 17 Blood Pressure [Left Arm] 144/82 H Blood Pressure [Right Arm] Blood Pressure Mean [Left Arm] 102 Blood Pressure Mean [Right Arm] Blood Pressure Source [Left Arm] Blood Pressure Position [Left Arm] 02 Sat by Pulse Oximetry 95 Oxygen Delivery Method Nasal Cannula Oxygen Flow Rate (LPM) 1 - Lab Data Lab Results 05/23/22 14:13: WBC 12.7 H, RBC 4.43, Hgb 13.4, Hct 39.0, MCV 88.0, MCH 30.1, MCHC 34.2, RDW 15.9, Plt Count 306, MPV 8.4, Neut % (Auto) 84.4 H, Lymph % (Auto) 8.7 L, [place] % (Auto) 4.2, Eos % (Auto) 1.9, Baso % (Auto) 0.7, Neut # (Auto) 10.7 H, Lymph # (Auto) 1.1, [place] # (Auto) 0.5, Eos # (Auto) 0.2, Baso # (Auto) 0.1 05/23/22 14:13: Sodium 136, Potassium 4.1, Chloride 98, Carbon Dioxide 33 H, Anion Gap 9.1, BUN 10, Creatinine 0.50 L, Estimated Creat Clear 84, Estimated GFR 125, Est GFR ( Amer) 151, Glucose 126 H, Calcium 8.2 L, Total Bilirubin 0.4, AST 27, ALT 23, Alkaline Phosphatase 133 H, Total Protein 7.2, Albumin 4.0, Globulin 3.2, Albumin/Globulin Ratio 1.3 05/23/22 14:13: Troponin I 0.01, NT-Pro-B Natriuret Pep 177 H 05/23/22 14:16: SARS-CoV-2 (PCR) Not detected, Influenza A Untype (PCR) Not detected, Influenza Type B (PCR) Not detected Result diagrams: 05/23/22 14:13 05/23/22 14:13 Orders (Tests/Meds): ED MEDICATIONS Generic Name Dose Route Start Last Admin Trade Name Freq PRN Reason Stop Dose Admin Sodium Chloride 10 ml 05/23/22 14:15 Sodium Chloride 0.9% 10ml Flush Syringe IV
--- NOTE | 2022-05-23 14:20 | PC.NURSE ---
portable xr at the bedside
--- NOTE | 2022-05-23 14:22 | PC.NURSE ---
rad at BS
[2022-05-23 14:29] LABS: Basophils # 0.1 K/mm3 (0-0.2); Basophils % 0.7 % (0.1-2.0); Eosinophils # 0.2 K/mm3 (0.0-0.4); Eosinophils % 1.9 % (0.1-12.0); Hemoglobin 13.4 g/dL (12.2-16.2); Lymphocytes # 1.1 K/mm3 (0.7-4.5); Lymphocytes % 8.7 % (10-50); Mean Corpuscular HGB Conc 34.2 g/dL (31.8-35.4); Mean Corpuscular Hemoglobin 30.1 pg (27.0-31.2); Mean Platelet Volume 8.4 fl (7.4-10.4); Monocytes # 0.5 K/mm3 (0.1-1.0); Monocytes % 4.2 % (1.7-9.3); Neutrophils # 10.7 K/mm3 (1.8-7.8); Neutrophils % 84.4 % (37.0-80.0); Platelet Count 306 K/mm3 (142-424); Red Blood Count 4.43 M/mm3 (4.20-5.40); Red Cell Distribution Width 15.9 % (11.5-17.5); White Blood Count 12.7 K/mm3 (4.8-10.8)
[2022-05-23 14:32] LABS: Coronavirus 19, PCR Not Detected (NotDetected); Influenza A, PCR Not Detected (NotDetected); Influenza B, PCR Not Detected (NotDetected)
[2022-05-23 14:34] LABS: Alanine Aminotransferase 23 U/L (12-78); Albumin/Globulin Ratio 1.3 (1.1-1.8); Alkaline Phosphatase 133 U/L (38-126); Anion Gap 9.1 mEq/L (5-15); Aspartate Amino Transferase 27 U/L (14-36); Bilirubin,Total 0.4 mg/dl (0.2-1.3); Blood Urea Nitrogen 10 mg/dl (7-17); Calcium 8.2 mg/dl (8.4-10.2); Carbon Dioxide 33 mmol/L (22.0-30.0); Chloride 98 mmol/L (98-107); Creatinine Clearance Estimated 84 mL/min (50-200); Estimated Glomerular Filt Rate 125 ml/min (>60); GFR (African American) 151 ML/MIN (>60); Globulin 3.2 g/dL (1.3-3.2); Glucose 126 mg/dl (74-100); Potassium 4.1 mmoL/L (3.5-5.1); Sodium 136 mmol/L (136-145); Total Protein,Serum 7.2 g/dl (6.3-8.2)
--- NOTE | 2022-05-23 14:46 | PC.NURSE ---
GABBY OSBORNE at
--- NOTE | 2022-05-23 14:51 | PC.NURSE ---
notified RT of neb treatment order
[2022-05-23 14:55] VITALS: PULSE 101; PULSE 105
--- NOTE | 2022-05-23 14:57 | PC.NURSE ---
RT at BS
[2022-05-23 15:00] VITALS: BP 144/82; PULSE 87; RESP 17; O2SAT 95
--- NOTE | 2022-05-23 15:03 | PC.NURSE ---
pt to restroom via wheelchair by staff. pt has portable o2
--- NOTE | 2022-05-23 15:03 | PC.NURSE ---
Pt assisted to bathroom by staff
--- NOTE | 2022-05-23 15:14 | PC.NURSE ---
pt up to restroom by wheelchair without complications; her oxygen was removed and is still off at this time while she sits in a wheelchair in ED room 8. She is 91% on RA at this time; [employer] Gary notified
--- NOTE | 2022-05-23 15:25 | CT_ITS ---
FINAL REPORT CLINICAL HISTORY: hypoxia FINDINGS: Thin section axial CT images of the chest were obtained with contrast. 3D reformatted images were also obtained. This study was performed with techniques to keep radiation doses as low as reasonably achievable (ALARA). Individualized dose reduction techniques using automated exposure control or adjustment of mA and/or kV according to the patient's size were employed. There is no evidence of pulmonary embolism. There is no evidence of thoracic aortic aneurysm or dissection. There is no evidence of mediastinal or hilar mass or adenopathy. There are bibasilar pulmonary opacities, may represent mild atelectasis or pneumonia. The patient is status post cholecystectomy. IMPRESSION: No evidence of pulmonary embolism. Bibasilar opacities, may represent atelectasis or pneumonia. Reviewed, Interpreted and Dictated by Neal Penny III, MD Transcribed by Radha Melendrez Authenticated and [facility]
[2022-05-23 15:27] LABS: NT Pro Brain Natriuretic Pep. 177 pg/mL (0-125)
[2022-05-23 15:29] LABS: Troponin I 0.01 ng/ml (0.00-0.034)
--- NOTE | 2022-05-23 15:36 | PC.NURSE ---
pt to radiology. rad called and stated pt iv infiltrated and they needed a new IV. new IV placed by lizzy
--- NOTE | 2022-05-23 16:02 | PC.NURSE ---
Warm blanket provided to pt after family member expressed the need, stating that pt was chilling
--- NOTE | 2022-05-23 16:40 | PC.NURSE ---
pt to restroom via wheelchair
--- NOTE | 2022-05-23 16:41 | PC.NURSE ---
Pt to bathroom with staff assistance.
--- NOTE | 2022-05-23 16:52 | PC.NURSE ---
pt returned back from restroom by wheelchair; no complications. Pt is asking to not be on her oxygen at this time again. [employer] Gary notified She is currently 95 % on RA
[2022-05-23 17:05] VITALS: BP 145/79; PULSE 89; RESP 20; TEMP 36.9; O2SAT 90
== END 2022-05-23 17:11 | disposition home or self-care (01) ==
LOC: UTC 13:49 → ER 13:59
PROVIDERS: Emergency Provider Emergency Medicine; PCP Family Medicine
DX: J18.9 Pneumonia, unspecified organism (principal); J45.41 Moderate persistent asthma with (acute) exacerbation; Z79.82 Long term (current) use of aspirin; Z79.899 Other long term (current) drug therapy; Z88.1 Allergy status to other antibiotic agents; Z88.8 Allergy status to other drugs, medicaments and biological substances; E78.5 Hyperlipidemia, unspecified; I10 Essential (primary) hypertension; K21.9 Gastro-esophageal reflux disease without esophagitis; F41.9 Anxiety disorder, unspecified; F32.A Depression, unspecified; M19.90 Unspecified osteoarthritis, unspecified site; E64.9 Sequelae of unspecified nutritional deficiency
CPT/HCPCS: 71045; 71275; 80053; 83880; 84484; 85025; 93005; 96374; 99284; C9803; Q9967; U0003; U0005

== ENCOUNTER → 2022-07-18 12:45 | Outpatient (CLI) | payer MEDICARE, OTHER, SELFPAY ==
--- NOTE | 2022-07-18 12:52 | XR_ITS ---
FINAL REPORT CLINICAL HISTORY: knee pain best images possible, patient had trouble standing, had to take multiple breaks, very difficult to position for requested positions COMPARISON: January 22, 2022 FINDINGS: LEFT KNEE Four views of the left knee were obtained. There is no acute fracture or dislocation. There is tricompartmental degenerative disease which is mildly progressed since the prior exam. Soft tissues are unremarkable. IMPRESSION: Degenerative disease, mildly progressed from the prior. Reviewed, Interpreted and Dictated by Lakesha Henriquez MD Transcribed by Polina Chavez Authenticated and [facility]
--- NOTE | 2022-07-18 12:52 | XR_ITS ---
FINAL REPORT CLINICAL HISTORY: knee pain best images possible, patient had trouble standing, had to take multiple breaks, very difficult to position for requested positions COMPARISON: January 22, 2022 FINDINGS: RIGHT KNEE Four views of the right knee were obtained. There is no acute fracture or dislocation. There is tricompartmental degenerative joint disease which is progressed from the prior exam and is most pronounced in the lateral compartment. There is a small to moderate joint effusion. IMPRESSION: Progression of degenerative disease with a small to moderate joint effusion. Reviewed, Interpreted and Dictated by Lakesha Henriquez MD Transcribed by Polina Chavez Authenticated and [facility]
== END ==
PROVIDERS: PCP Family Medicine; Visit Provider Physician Assistant Surgical
DX: M25.561 Pain in right knee (principal); M25.562 Pain in left knee
CPT/HCPCS: 73564

== ENCOUNTER → 2022-09-04 12:22 | Outpatient (CLI) | payer MEDICARE, OTHER, SELFPAY ==
[2022-09-04 13:11] LABS: Alanine Aminotransferase 19 U/L (12-78); Albumin/Globulin Ratio 1.4 (1.1-1.8); Alkaline Phosphatase 186 U/L (38-126); Anion Gap 17.4 mEq/L (5-15); Aspartate Amino Transferase 22 U/L (14-36); Bilirubin,Total 0.9 mg/dl (0.2-1.3); Blood Urea Nitrogen 16 mg/dl (7-17); Calcium 8.8 mg/dl (8.4-10.2); Carbon Dioxide 25 mmol/L (22.0-30.0); Chloride 100 mmol/L (98-107); Estimated Glomerular Filt Rate 72 ml/min (>60); GFR (African American) 88 ML/MIN (>60); Globulin 2.9 g/dL (1.3-3.2); Glucose 132 mg/dl (74-100); Potassium 4.4 mmoL/L (3.5-5.1); Sodium 138 mmol/L (136-145); Total Protein,Serum 6.9 g/dl (6.3-8.2)
--- NOTE | 2022-09-04 14:05 | MR_ITS ---
FINAL REPORT CLINICAL HISTORY: Abnormal movement disorder TREMORS BILATERAL HANDS FINDINGS: Multiplanar MR imaging of the brain was performed without contrast. Motion on many of the images decreases exam sensitivity. There is mild age-appropriate atrophy. There are foci of increased T2 signal in the cerebral white matter that have a nonspecific appearance but likely represent moderate chronic ischemic/gliotic changes. There is no evidence of intracranial hemorrhage. There is increased T1 signal in the superior corpus callosum consistent with a pericallosal lipoma. No abnormal ventricular dilatation is identified. No abnormal extra-axial fluid collection is seen. No abnormality is seen on the diffusion weighted images. The posterior fossa and brainstem are unremarkable. Normal major vessel vascular flow voids are seen. 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 Age-appropriate atrophy and moderate chronic ischemic/gliotic changes. No acute intracranial abnormality. Reviewed, Interpreted and Dictated by Neal Penny III, MD Transcribed by Tyler Burton Authenticated and [facility]
[2022-09-04 14:18] LABS: Vitamin B12 822 pg/mL (239-931)
[2022-09-04 14:26] LABS: Folate 5.37 ng/mL
== END ==
PROVIDERS: PCP Nurse Practitioner Family; Visit Provider Specialist
DX: R25.1 Tremor, unspecified (principal); E78.2 Mixed hyperlipidemia
CPT/HCPCS: 36415; 70551; 80053; 82607; 82746; 84443

== ENCOUNTER → 2022-09-24 12:34 | Outpatient (CLI) | payer MEDICARE, OTHER, SELFPAY | PROVIDERS: PCP Family Medicine; Visit Provider Orthopaedic Surgery | DX: M17.0 Bilateral primary osteoarthritis of knee (principal) ==

== ENCOUNTER → 2022-10-14 09:45 | Outpatient (POV) | payer MEDICARE, OTHER, SELFPAY ==
[2022-10-14 10:13] VITALS: BP 144/91; PULSE 94; RESP 20; O2SAT 92; BMI 46.9
--- NOTE | 2022-10-14 10:15 | EXP.PAIN.SOA ---
[facility] Pain Management SOAP Note Subjective:: Patient is a pleasant 62-year-old female who presents today for follow-up. We are currently treating the patient for degenerative disc disease of lumbar spine with lumbar radiculopathy symptoms, spinal stenosis. Today patient rates her pain a 6 out of 10. She states the pain is all in her low back around her bilateral hips and her right knee. Patient denies any new trauma or injury. Patient states this is the same pain she has been experiencing. Patient states her right knee pain is worse than her hip issues. Patient denies any surgeries or arthroplasty at her right knee. Patient states this pain has been going on for over 1 year and just worsened over time. Patient states this is a aching, throbbing sensation that is worse with increased activity. Patient does present today in a wheelchair and states that she does frequently use assistive devices for ambulation due to the pain. Patient states she has had injective therapy in the past and her right knee however she states it only provided minimal improvement lasting for 1 to 2 weeks. We have previously discussed with this patient that she may benefit from spinal cord stimulator therapy and did present for a psychiatric evaluation that did deem her an appropriate candidate however her insurance denied the spinal cord stimulator trial. Patient is currently managed with Percocet 10 mg 3 times a day and lorazepam 1 mg 3 times a day from Dr. Jenkins's office. Patient denies any side effects from these medications. She states this medication does help with her pain symptoms. Her Adonay is [id number]. It has been reviewed and appropriate. Review of Systems: General: No recent weight changes, no fever, no sleep disturbances Respiratory: No cough, no shortness of air, no recurring pulmonary infections Cardiovascular/peripheral vascular: No chest pain, no palpitations, no edema, no shortness of breath Gastrointestinal: No new onset incontinence, normal bowel movements reported Genitourinary: No new onset incontinence Musculoskeletal: Low back pain, bilateral hip pain, right knee pain Psychiatric: [Normal mood/affect] Neurological: [Denies weakness in extremities], [denies balance issues] Objective:: Physical Exam: General: Alert and oriented x3, no acute distress, pleasant and cooperative Lungs: Respirations even and unlabored, symmetrical chest expansion Eyes: PERRL Musculoskeletal: Flexion and extension of lumbar [spine] somewhat guarded secondary to pain, [antalgic gait noted] Neurological: Speech clear, no gross sensory deficit Assessment:: Degenerative disc disease of lumbar spine with lumbar radiculopathy symptoms, spinal stenosis, bilateral hip pain, right knee pain Plan:: Patient is experiencing significant pain in her low back that radiates into her bilateral hips and right knee. Patient did have limited range of motion of her lumbar spine during today's visit. I have discussed with the patient that she may benefit from a genicular nerve block. Risk and benefits were discussed with the patient. She would like to proceed forward with this plan of care. We will schedule her for a right genicular nerve block #1. Patient has been instructed to contact the clinic with any concerns before the next appointment. Dr. Orozco has reviewed this note and agrees with this plan of care. This note was dictated using voice recognition software and make contain errors or omissions. PFSH [facility] Medical History APARNA (obstructive sleep apnea) Surgical History H/O: H/O: hysterectomy History of arthroplasty of left shoulder History of cholecystectomy Family History Other Cancer 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 Smoking Status: Former smoker pack-years: 15 second
== END ==
PROVIDERS: PCP Family Medicine; Visit Provider Nurse Practitioner Family
DX: M54.16 Radiculopathy, lumbar region (principal); M48.00 Spinal stenosis, site unspecified; M25.551 Pain in right hip; M25.552 Pain in left hip; M25.561 Pain in right knee
CPT/HCPCS: 99212; G0463

== ENCOUNTER → 2022-10-22 11:13 | Day surgery (SDC) | payer MEDICARE, OTHER, SELFPAY ==
[2022-10-22 11:25] VITALS: BP 117/90; PULSE 89; RESP 18; TEMP 36.6; O2SAT 92; BMI 46.5
--- NOTE | 2022-10-22 11:52 | EXP.PAIN.PRO ---
Procedure Date: 10/22/22 Time: 11:30 Anesthesiologist:: Stevie Leach CRNA Complications:: None Pre-procedure Diagnosis:: Osteoarthritis right knee Post-procedure Diagnosis:: Same Indications for Procedure:: Patient is a pleasant 62-year-old female who comes our clinic today for right genicular nerve block. Patient has chronic right knee pain. Patient is ambulatory. However, ambulation has been at a minimum due to the severe right knee pain. She rates her pain 9/10. Procedure Details:: Right knee genicular block Informed consent was obtained and the risk and benefits of the procedure was explained to the patient. The patient was taken to the procedure room. The left knee was prepped using ChloraPrep. I placed 22-gauge needles into the area of the right superior medial genicular nerve, right superior lateral genicular nerve and right inferior medial genicular nerve. Needle placement was confirmed in AP and lateral views with dye. We then injected bupivacaine 0.25% 3 mL's and Depo-Medrol 25 mg into each area of the right superior medial genicular nerve, right superior lateral genicular nerve and right inferior medial genicular nerve. Patient tolerated the procedure well with no complications. Plan and Disposition:: Patient was discharged without pain in the right knee.
== END | disposition home or self-care (01) ==
PROVIDERS: PCP Family Medicine; Visit Provider Nurse Anesthetist, Certified Registered
DX: M17.11 Unilateral primary osteoarthritis, right knee (principal); G89.29 Other chronic pain
CPT/HCPCS: 64454; J1040

== ENCOUNTER 2022-11-22 12:38 | Emergency (ER) | payer MEDICARE, OTHER, SELFPAY ==
[2022-11-22 14:20] VITALS: BP 124/80; PULSE 75; RESP 16; TEMP 36.9; O2SAT 95; BMI 46.5
[2022-11-22 14:38] LABS: Apearance,Urine Cloudy (Clear); Color,Urine Dark Yellow (Yellow); Glucose,Urine (UA) Negative (Negative); Ketones,Urine Negative (Negative); PH,Urine 5.5 (5.0-8.5); Protein,Urine 1+ (Negative); Specific Gravity, Urine 1.025 (1.005-1.030)
[2022-11-22 14:39] LABS: Bilirubin,Urine 1+ (Negative); Blood, Urine Trace (Negative); UTC Leukocyte Esterase,Urine 1+ (Negative); UTC Nitrate,Urine Negative (Negative); Urobilinogen,Urine 2 EU/dl (0.2)
--- NOTE | 2022-11-22 14:40 | PC.NURSE ---
pt has been accepted by the er. pt will be holding in the [facility] awaiting bed availability. per er md, orders can be placed for pt work up while waiting
--- NOTE | 2022-11-22 14:42 | CT_ITS ---
FINAL REPORT TECHNIQUE: Axial CT images were performed from the lung bases through the pubic symphysis. Coronal reformats were submitted and reviewed. This study was performed with techniques to keep radiation doses as low as reasonably achievable (ALARA). Individualized dose reduction techniques using automated exposure control or adjustment of mA and/or kV according to the patient's size were employed. CLINICAL HISTORY: r/o kidney stone RIGHT FLANK PAIN COMPARISON: November 2021 FINDINGS: Abdomen: There is mild scarring in the lung bases. There is evidence of cholecystectomy. The liver, spleen and pancreas are unremarkable. There are no adrenal masses. There is no nephrolithiasis. There is no hydronephrosis. There is mild vascular calcification. Pelvis: The appendix is not identified. There are no distal ureteral stones. The urinary bladder is unremarkable. There is diverticulosis of the sigmoid colon. There has been hysterectomy. IMPRESSION: No acute intra-abdominal process. Reviewed, Interpreted and Dictated by Neal Penny III, MD Transcribed by Tyler Burton Authenticated and [facility]
--- NOTE | 2022-11-22 14:46 | EXP.UTC ---
Discharge Plan Disposition Patient Disposition: Home, Self-Care Condition: Good Prescriptions Prescriptions: New levofloxacin 750 mg tablet 750 mg PO DAILY 5 Days Qty: 5 0RF No Action aspirin [Adult Low Dose Aspirin] 81 mg tablet,delayed release (DR/EC) 81 mg PO DAILY duloxetine 60 mg capsule,delayed release(DR/EC) 60 mg PO HS 30 Days Qty: 30 calcium carbonate-vitamin D3 [Oyster Shell Calcium-Vit D3] 500 mg-5 mcg (200 unit) tablet 1 tab PO DAILY topiramate 50 mg tablet 50 mg PO BID Qty: 90 6RF Rx Instructions: Increase to 50 mg, (1 tablet) in the morning and 100 mg, (2 tablets) at night loratadine [Allergy Relief (loratadine)] 10 mg tablet 10 mg PO DAILY lorazepam 1 mg tablet 1 mg PO Q4-6H PRN (Reason: Anxiety) 30 Days Qty: 90 omeprazole 40 mg capsule,delayed release(DR/EC) 40 mg PO DAILY potassium chloride 20 mEq tablet,ER particles/crystals 20 meq PO TID cholecalciferol (vitamin D3) 50 mcg (2,000 unit) tablet 50 mcg PO DAILY furosemide 80 mg tablet 80 mg PO DAILY montelukast 10 mg tablet 10 mg PO DAILY Trelegy Ellipta 200-62.5-25 mcg blister with device 1 inh inhalation DAILY gabapentin 100 mg capsule 100 mg PO DAILY ergocalciferol (vitamin D2) [Vitamin D2] 1,250 mcg (50,000 unit) capsule 50,000 unit PO WEEKLY atorvastatin 40 mg tablet 40 mg PO HS albuterol sulfate 108 HFA aerosol inhaler 2 puff INHALATION Q4HP PRN (Reason: Shortness Of Breath Or Wheezing) oxycodone-acetaminophen 10-325 mg tablet 10 mg PO TID Referrals Follow up/Referrals: Manas Jenkins MD [Primary Care Provider] - See instructions Clinical Impressions Clinical Impression: UTI (urinary tract infection) Discharge ED Provider: Beatrice Gunn [facility] [place] HPI <Beatrice Gunn APRN - Last Filed: 11/22/22 20:40> General Stated complaint: right side pain Mode of Arrival: Wheelchair Source of Information: Patient Limitations: No Limitations Time Seen by Provider: 11/22/22 14:35 Description of Symptoms (Recalled from Triage Doc. by RN): pt come sin with c/o right side pain that began 1 week ago HEENT Symptoms (Recalled from RN notes): No Resp Symptoms (Recalled from RN notes): No Skin Symptoms (Recalled from RN notes): No MS Symptoms (Recalled from RN notes): No Functional Status (Recalled from RN notes): n/a History of Present Illness Provider Complaint: Patient states that she started about a week ago with pain in her right side that would come and go States that she is unsure if the pain is going from back to stomach or stomach to back States that for the last 3 days it has got worse States that the pain is making her sick States that she rates pain a 8/10 and nothing she has done has helped Denies fever denies chills Related Data Home Medications Medication Instructions Recorded Confirmed aspirin 81 mg tablet,delayed 81 mg PO DAILY CAD 01/07/18 10/22/22 release (Adult Low Dose Aspirin) loratadine 10 mg tablet (Allergy 10 mg PO DAILY Allergy symptoms 04/02/18 10/22/22 Relief (loratadine)) lorazepam 1 mg tablet 1 mg PO Q4-6H PRN Anxiety 30 days 06/01/18 10/22/22 ##90 duloxetine 60 mg capsule,delayed 60 mg PO HS mood 30 days #30 caps 09/24/18 10/22/22 release albuterol sulfate 90 mcg/actuation 2 puff inhalation Q4HP PRN 11/22/18 10/22/22 aerosol inhaler Shortness Of Breath Or Wheezing omeprazole 40 mg capsule,delayed 40 mg PO DAILY GERD 04/01/19 10/22/22 release cholecalciferol (vitamin D3) 50 50 mcg PO DAILY SUPPLIMENT 03/01/22 10/22/22 mcg (2,000 unit) tablet potassium chloride 20 mEq 20 meq PO TID SUPPLIMENT 03/01/22 10/22/22 tablet,extended release(part/cryst) atorvastatin 40 mg tablet 40 mg PO HS Cholesterol 07/22/22 10/22/22 ergocalciferol (vitamin D2) 1,250 50,000 unit PO WEEKLY SUPPLIMENT 07/22/22 10/22/22 mcg (50,000 unit) capsule (Vitamin D2) fluticasone fur. 200 mcg-umeclid 1 in
[2022-11-22 15:10] LABS: Microscopic, Urine URINE MICROSCOPIC (MICROSCOPIC)
[2022-11-22 15:13] LABS: Appearance,Urine SL CLOUDY (Clear); Blood, Urine Negative (Negative); Color,Urine DK YELLOW (Yellow); Glucose,Urine (UA) Negative (Negative); Ketones,Urine TRACE (Negative); Leukocyte Esterase,Urine 1+ (Negative); Nitrate,Urine Negative (Negative); PH,Urine 5.5 (5.0-8.5); Protein,Urine TRACE (Negative); Specific Gravity, Urine 1.025 (1.005-1.030)
[2022-11-22 15:20] LABS: Bilirubin,Urine 1+ (Negative)
[2022-11-22 15:25] LABS: Bacteria,Urine 3+ /lpf; WBC,Urine 20-50 #/hpf (0-3)
[2022-11-22 15:26] LABS: RBC,Urine Occasional #/hpf (0-3); Renal Epithelial Cells,Urine Occasional #/lpf (0)
[2022-11-22 16:34] LABS: Chloride 101 mmol/L (98-107); Sodium 138 mmol/L (136-145)
[2022-11-22 16:35] LABS: Potassium 3.8 mmoL/L (3.5-5.1)
[2022-11-22 16:37] LABS: Alanine Aminotransferase 20 U/L (12-78); Alkaline Phosphatase 83 U/L (38-126); Anion Gap 9.8 mEq/L (5-15); Aspartate Amino Transferase 37 U/L (14-36); Bilirubin,Total 0.6 mg/dl (0.2-1.3); Blood Urea Nitrogen 10 mg/dl (7-17); Carbon Dioxide 31 mmol/L (22.0-30.0); Creatinine Clearance Estimated 52 mL/min (50-200); Estimated Glomerular Filt Rate 101 ml/min (>60); GFR (African American) 122 ML/MIN (>60)
[2022-11-22 16:38] LABS: Albumin Level 3.8 g/dl (3.5-5.0); Albumin/Globulin Ratio 1.2 (1.1-1.8); Calcium 7.5 mg/dl (8.4-10.2); Globulin 3.2 g/dL (1.3-3.2); Glucose 102 mg/dl (74-100); Lipase 43 U/L (23-300)
[2022-11-22 16:48] LABS: Basophils # 0.1 K/mm3 (0-0.2); Basophils % 0.9 % (0.1-2.0); Eosinophils # 0.1 K/mm3 (0.0-0.4); Eosinophils % 0.8 % (0.1-12.0); Hematocrit 38.9 % (37.0-47.0); Hemoglobin 12.6 g/dL (12.2-16.2); Lymphocytes # 1.4 K/mm3 (0.7-4.5); Lymphocytes % 16.9 % (10-50); Mean Corpuscular HGB Conc 32.4 g/dL (31.8-35.4); Mean Corpuscular Hemoglobin 29.2 pg (27.0-31.2); Mean Corpuscular Volume 90.1 fl (81-99); Monocytes # 0.4 K/mm3 (0.1-1.0); Monocytes % 4.4 % (1.7-9.3); Neutrophils # 6.5 K/mm3 (1.8-7.8); Neutrophils % 76.9 % (37.0-80.0); Platelet Count 367 K/mm3 (142-424); Red Blood Count 4.32 M/mm3 (4.20-5.40); Red Cell Distribution Width 16.9 % (11.5-17.5); White Blood Count 8.4 K/mm3 (4.8-10.8)
[2022-11-22 17:38] VITALS: BP 124/80; PULSE 75; RESP 16; TEMP 36.9
== END 2022-11-22 17:44 | disposition home or self-care (01) ==
PROVIDERS: Emergency Medicine; Emergency Provider Nurse Practitioner; PCP Family Medicine
DX: N39.0 Urinary tract infection, site not specified (principal)
CPT/HCPCS: 74176; 80053; 81001; 81003; 83690; 85025; 87086; 87088; 87186; 99213; G0463

== ENCOUNTER → 2022-11-27 13:17 | Outpatient (POV) | payer MEDICARE, OTHER, SELFPAY ==
[2022-11-27 13:50] VITALS: BP 123/71; PULSE 75; RESP 18; O2SAT 97; BMI 46.9
--- NOTE | 2022-11-27 16:36 | EXP.PAIN.SOA ---
[facility] Pain Management SOAP Note Subjective:: Patient is a pleasant 62-year-old female who presents today for follow-up of right knee genicular block on 10/22/2022. We are currently treating the patient for degenerative disc disease of lumbar spine with lumbar radiculopathy symptoms, spinal stenosis, knee pain. Today the patient states she has had at least 50% improvement following this injections however states that it only lasted a day or 2. Patient does state her pain is back to baseline with 6 out of 10. Patient states the pain is primarily in her right knee and describes it as a aching, throbbing sensation that is worse with increased activity. Patient denies any new trauma or injury. Patient denies any change to location or type of pain she experiences. Patient states she is also experiencing GI upset for the last week. Patient states she has had a lot of gas and belching with some nausea and constipation. Patient states she has used [id number] Gas-X with minimal improvement. Patient states she does not have anything for her nausea. Patient is currently managed with Percocet 10 mg 3 times a day from her primary care doctor. Patient denies any side effects from this medication. She states this medication does help her pain symptoms. Previously we did discuss with the patient about a spinal cord stimulator therapy that she may be at beneficial candidate and she did have the psychiatric evaluation that did deem her an appropriate candidate. Patient's insurance did denied the spinal cord stimulator trial. Her Adonay is [id number]. Its been reviewed and appropriate. Review of Systems: General: No recent weight changes, no fever, no sleep disturbances Respiratory: No cough, no shortness of air, no recurring pulmonary infections Cardiovascular/peripheral vascular: No chest pain, no palpitations, no edema, no shortness of breath Gastrointestinal: No new onset incontinence, normal bowel movements reported Genitourinary: No new onset incontinence Musculoskeletal: Right knee pain Psychiatric: [Normal mood/affect] Neurological: [Denies weakness in extremities], [denies balance issues] Objective:: Physical Exam: General: Alert and oriented x3, no acute distress, pleasant and cooperative Lungs: Respirations even and unlabored, symmetrical chest expansion Eyes: PERRL Musculoskeletal: Flexion and extension of right knee somewhat guarded secondary to pain, [antalgic gait noted] Neurological: Speech clear, no gross sensory deficit Assessment:: Degenerative disc disease of lumbar spine with lumbar radiculopathy symptoms, spinal stenosis, right knee pain Plan:: Patient continues to experience significant pain in her right knee however she did get approximately 50% or more relief following her first genicular nerve block. Patient continues to have limited range of motion of her right knee. I have discussed with the patient that she may benefit from repeating her right knee genicular block. Risk and benefits were discussed with the patient. She would like to proceed forward with this plan of care. I will also order the patient Zofran 4 mg 3 times daily as needed and provide a 3-day supply of this medication. We will schedule the patient for a right knee genicular nerve block #2. Patient has been instructed to contact the clinic with any concerns before the next appointment. Dr. Orozco has reviewed this note and agrees with this plan of care. This note was dictated using voice recognition software and make contain errors or omissions. [facility] Disclaimer: The information contained in this section may have been updated after the patient was seen, as this information can be updated by other users. Medical History APARNA (obstructive sleep apnea) Surgical History H/O: H/O: hysterectomy History of arthroplasty of left shoulder History of kiera
== END | disposition home or self-care (01) ==
PROVIDERS: PCP Family Medicine; Visit Provider Nurse Practitioner Family
DX: M51.16 Intervertebral disc disorders with radiculopathy, lumbar region (principal); M47.26 Other spondylosis with radiculopathy, lumbar region; M25.561 Pain in right knee
CPT/HCPCS: 99212; G0463

== ENCOUNTER 2022-11-27 14:03 | Emergency (ER) | payer MEDICARE, OTHER, SELFPAY ==
[2022-11-27 14:55] VITALS: BP 125/61; PULSE 61; RESP 16; TEMP 36.8; O2SAT 93; BMI 46.9
[2022-11-27 15:00] VITALS: BP 131/67; PULSE 74; RESP 20; O2SAT 94
--- NOTE | 2022-11-27 15:12 | CT_ITS ---
PROCEDURE INFORMATION: Exam: CT Abdomen And Pelvis Without Contrast Exam date and time: 11/27/2022 3:18 PM Age: 62 years old Clinical indication: Bloating; Additional info: Bloating, pain, belching - concern for obstruction TECHNIQUE: Imaging protocol: Computed tomography of the abdomen and pelvis without contrast. Radiation optimization: All CT scans at this facility use at least one of these dose optimization techniques: automated exposure control; mA and/or kV adjustment per patient size (includes targeted exams where dose is matched to clinical indication); or iterative reconstruction. COMPARISON: CT ABDOMEN PELVIS WO CON 11/22/2022 2:54 PM FINDINGS: Lungs: Bibasilar subsegmental atelectasis noted. Liver: Multiple hepatic granulomas.No focal hepatic lesions within the limits of noncontrast examination. A focus of hypoattenuation within the left hepatic lobe adjacent to the falciform ligament likely represents focal fatty infiltration. Gallbladder and bile ducts: There has been a cholecystectomy. No biliary ductal dilation. Pancreas: No peripancreatic fluid stranding. No main pancreatic ductal dilation. Spleen: Multiple splenic granulomas. No splenomegaly. Adrenal glands: The adrenal glands are normal. Kidneys and ureters: No nephrolithiasis or hydroureteronephrosis on either side. Stomach and bowel: No bowel wall thickening or distention. Scattered colonic diverticula without acute inflammatory change. Duodenal diverticulum is incidentally noted. Appendix: A normal appendix is not well visualized. However, no evidence of inflammatory changes in the right lower quadrant to suggest acute appendicitis. Intraperitoneal space: There is no evidence of free intraperitoneal or pelvic fluid. Vasculature: The aorta demonstrates mild atherosclerotic calcification. Lymph nodes: No evidence of retroperitoneal or mesenteric lymphadenopathy. The absence of intravenous contrast limits the assessment of vascular structures, lesions and lymphadenopathy. Urinary bladder: Unremarkable as visualized. Reproductive: Status post hysterectomy. Bones/joints: Multilevel degenerative changes of the included spine. No acute osseous abnormality Soft tissues: Unremarkable. IMPRESSION: No acute abnormality in the abdomen or pelvis
--- NOTE | 2022-11-27 15:33 | HMH.EDGENADL ---
Discharge Plan Disposition Patient Disposition: Home, Self-Care Condition: Good Prescriptions Prescriptions: New famotidine 20 mg tablet 20 mg PO DAILY 10 Days Qty: 10 0RF dicyclomine 10 mg capsule 10 mg PO TID PRN (Reason: abdominal pain) Qty: 14 0RF No Action aspirin [Adult Low Dose Aspirin] 81 mg tablet,delayed release (DR/EC) 81 mg PO DAILY duloxetine 60 mg capsule,delayed release(DR/EC) 60 mg PO HS 30 Days Qty: 30 calcium carbonate-vitamin D3 [Oyster Shell Calcium-Vit D3] 500 mg-5 mcg (200 unit) tablet 1 tab PO DAILY topiramate 50 mg tablet 50 mg PO BID Qty: 90 6RF Rx Instructions: Increase to 50 mg, (1 tablet) in the morning and 100 mg, (2 tablets) at night loratadine [Allergy Relief (loratadine)] 10 mg tablet 10 mg PO DAILY lorazepam 1 mg tablet 1 mg PO Q4-6H PRN (Reason: Anxiety) 30 Days Qty: 90 omeprazole 40 mg capsule,delayed release(DR/EC) 40 mg PO DAILY potassium chloride 20 mEq tablet,ER particles/crystals 20 meq PO TID cholecalciferol (vitamin D3) 50 mcg (2,000 unit) tablet 50 mcg PO DAILY furosemide 80 mg tablet 80 mg PO DAILY montelukast 10 mg tablet 10 mg PO DAILY Trelegy Ellipta 200-62.5-25 mcg blister with device 1 inh inhalation DAILY gabapentin 100 mg capsule 100 mg PO DAILY ergocalciferol (vitamin D2) [Vitamin D2] 1,250 mcg (50,000 unit) capsule 50,000 unit PO WEEKLY atorvastatin 40 mg tablet 40 mg PO HS albuterol sulfate 108 HFA aerosol inhaler 2 puff INHALATION Q4HP PRN (Reason: Shortness Of Breath Or Wheezing) oxycodone-acetaminophen 10-325 mg tablet 10 mg PO TID levofloxacin 750 mg tablet 750 mg PO DAILY ondansetron 4 mg tablet,disintegrating 4 mg PO Q8H PRN (Reason: nausea and vomiting) Qty: 9 0RF Referrals Follow up/Referrals: Manas Jenkins MD [Primary Care Provider] - See instructions Activity Restrictions/Add. Instructions Additional Instructions/Restrictions: You were evaluated in the emergency department today. Please forklift picker your prescription at the pharmacy and take them as prescribed. Continue taking your home medications. Continue your antibiotics for your urinary tract infection. Follow-up with your primary care provider over the next 48 hours. Return to the emergency department for any new or worsening symptoms. Clinical Impressions Clinical Impression: Indigestion Gastritis Qualifiers: Gastritis type: unspecified gastritis Chronicity: acute Gastritis bleeding: without bleeding Qualified Code(s): K29.00 - Acute gastritis without bleeding Instructions Patient Instructions: DI for Gastritis, DI for Dyspepsia Discharge ED Provider: Maribell Leggett General Adult HPI General Chief complaint: PAIN Stated complaint: stomach/back pain Time Seen by Provider: 11/27/22 14:50 Mode of Arrival: Wheelchair Source of Information: Patient and Spouse Limitations: No Limitations Description of Symptoms (Recalled from ER Triage Doc. by RN): c/o gas t/o her stomach going into her back, states that this started when she was dx with a uti the other day in here. states that when she burps she feels better. History of Present Illness HPI narrative: This patient is a 62-year-old female with a history of recent diagnosis of urinary tract infection presented to the emergency department for evaluation of abdominal pain radiating to her back since yesterday. She states that she feels like she has gas and has been taking Gas-X at home [id number]. She states that when she burps, she feels better. She states that the initial medications that she was put on for her urinary tract infection made her have nausea and vomiting, so she was changed to something else by her primary care provider. She states that she believes that she was on Levaquin initially, but she cannot remember what she was changed to. She states that she is still havin
[2022-11-27 15:55] LABS: Basophils # 0.1 K/mm3 (0-0.2); Basophils % 0.9 % (0.1-2.0); Eosinophils # 0.1 K/mm3 (0.0-0.4); Eosinophils % 1.1 % (0.1-12.0); Hematocrit 40.1 % (37.0-47.0); Hemoglobin 12.9 g/dL (12.2-16.2); Lymphocytes # 1.4 K/mm3 (0.7-4.5); Lymphocytes % 16.7 % (10-50); Mean Corpuscular HGB Conc 32.2 g/dL (31.8-35.4); Mean Corpuscular Hemoglobin 28.9 pg (27.0-31.2); Mean Corpuscular Volume 89.8 fl (81-99); Monocytes # 0.5 K/mm3 (0.1-1.0); Monocytes % 5.7 % (1.7-9.3); Neutrophils # 6.2 K/mm3 (1.8-7.8); Neutrophils % 75.7 % (37.0-80.0); Platelet Count 334 K/mm3 (142-424); Red Blood Count 4.47 M/mm3 (4.20-5.40); Red Cell Distribution Width 17.2 % (11.5-17.5); White Blood Count 8.2 K/mm3 (4.8-10.8)
--- NOTE | 2022-11-27 15:55 | ECG_ITS ---
APPROVED REPORT Exam: Resting ECG HR:63 bpm ECG Measurements Heart Rate 63 AXES WY 178 P 29 QRSd 97 QRS -29 QT 415 T 63 QTc 423 Conclusion SINUS RHYTHM BORDERLINE LEFT AXIS DEVIATION [QRS AXIS < -20] MODERATE VOLTAGE CRITERIA FOR LVH, CONSIDER NORMAL VARIANT [MEETS CRITERIA IN ONE OF: R(aVL), S(V1), R(V5), R(V5/V6)+S(V1)] BORDERLINE ECG UNCONFIRMED REPORT Electronically signed by : Manas Jalloh MD 11/28/2022 08:09:44
[2022-11-27 16:18] LABS: Chloride 104 mmol/L (98-107); Sodium 138 mmol/L (136-145)
[2022-11-27 16:20] LABS: Alanine Aminotransferase 25 U/L (12-78); Aspartate Amino Transferase 37 U/L (14-36); Blood Urea Nitrogen 17 mg/dl (7-17); Creatinine Clearance Estimated 52 mL/min (50-200); Estimated Glomerular Filt Rate 85 ml/min (>60); GFR (African American) 102 ML/MIN (>60)
[2022-11-27 16:21] LABS: Albumin Level 3.7 g/dl (3.5-5.0); Albumin/Globulin Ratio 1.2 (1.1-1.8); Alkaline Phosphatase 80 U/L (38-126); Bilirubin,Total 0.6 mg/dl (0.2-1.3); Calcium 7.9 mg/dl (8.4-10.2); Carbon Dioxide 28 mmol/L (22.0-30.0); Globulin 3.2 g/dL (1.3-3.2); Glucose 79 mg/dl (74-100); Lipase 48 U/L (23-300); Total Protein,Serum 6.9 g/dl (6.3-8.2)
--- NOTE | 2022-11-27 16:54 | PC.NURSE ---
LEESA Tucker rounding on patient. No other needs at this time, family at BS. Call light within reach
[2022-11-27 17:15] VITALS: BP 131/67; PULSE 74; RESP 18; TEMP 36.8; O2SAT 94
== END 2022-11-27 17:17 | disposition home or self-care (01) ==
PROVIDERS: Emergency Provider Emergency Medicine; PCP Family Medicine
DX: K29.70 Gastritis, unspecified, without bleeding (principal); Z87.440 Personal history of urinary (tract) infections; G47.33 Obstructive sleep apnea (adult) (pediatric); Z90.710 Acquired absence of both cervix and uterus; Z90.89 Acquired absence of other organs; Z80.9 Family history of malignant neoplasm, unspecified
CPT/HCPCS: 74176; 80053; 83690; 85025; 93005; 96374; 96375; 99212; 99285; G0463; J2405

== ENCOUNTER 2022-12-10 10:38 | Day surgery (SDC) | payer MEDICARE, OTHER, SELFPAY ==
[2022-12-10 10:56] VITALS: BP 153/78; PULSE 84; RESP 18; TEMP 36.4; O2SAT 93; BMI 46.9
[2022-12-10 11:19] VITALS: BP 156/102; PULSE 88; RESP 20; O2SAT 97
[2022-12-10 11:23] VITALS: BP 143/88; PULSE 88; RESP 18; O2SAT 93
--- NOTE | 2022-12-10 11:25 | P.PCN_ITS ---
Procedure Date: 12/10/22 Time: 11:20 Anesthesiologist:: Stevie Leach CRNA Complications:: None Pre-procedure Diagnosis:: Osteoarthritis right knee Post-procedure Diagnosis:: Osteoarthritis right knee Indications for Procedure:: Very pleasant 62-year-old female comes our clinic for a second right genicular nerve block. Patient rates her pain today a 6 out of 10. Patient denies any new trauma or injury. Patient denies any change in location or type of pain she experiences. Patient had successful right genicular nerve block a couple of months ago. She reports right knee pain was at a minimum for 6 to 8 weeks. Patient is currently managed with Percocet 10 mg 3 times a day from her primary care doctor. Patient denies any side effects from this medication. Patient states this medication does help manage her pain symptoms. Procedure Details:: Right knee genicular block Informed consent was obtained and the risk and benefits of the procedure was explained to the patient. The patient was taken to the procedure room where parris nvasive monitoring was placed on the patient including a noninvasive blood pressure cuff and pulse oximeter. The right knee was prepped using ChloraPrep. I placed 22-gauge needles into the area of the right superior medial genicular nerve, right superior lateral genicular nerve and right inferior medial genicular nerve. Needle placement was confirmed in AP and lateral views with dye. We then injected bupivacaine 0.25% 3 mL's and Depo-Medrol 25 mg into each area of the right superior medial genicular nerve, right superior lateral genicular nerve and right inferior medial genicular nerve. Patient tolerated the procedure well with no complications. Plan and Disposition:: FreshPatient was monitored in the clinic setting period of time following this procedure and discharged neurologically intact. Patient will return to clinic in 2 weeks for reevaluation of symptoms and follow-up. The patient was told to contact the office with any questions or concerns before the next appointment date. Dr. Orozco has read this note and agrees with this plan of care. This note was dictated using voice recognition software and may contain errors or omissions.
== END 2022-12-10 11:23 | disposition home or self-care (01) ==
PROVIDERS: PCP Family Medicine; Visit Provider Nurse Anesthetist, Certified Registered
DX: M17.11 Unilateral primary osteoarthritis, right knee (principal)
CPT/HCPCS: 64454; J1040

== ENCOUNTER → 2022-12-19 13:37 | Outpatient (CLI) | payer MEDICARE, OTHER, SELFPAY | PROVIDERS: PCP Family Medicine; Visit Provider Internal Medicine Medical Oncology | DX: D89.44 Hereditary alpha tryptasemia (principal); R74.8 Abnormal levels of other serum enzymes | CPT/HCPCS: 36415; 83520 ==

== ENCOUNTER 2023-01-05 21:41 | Emergency (ER) | payer MEDICARE, OTHER, SELFPAY ==
[2023-01-05 21:41] VITALS: BP 167/102; PULSE 92; RESP 20; TEMP 36.6; O2SAT 94; BMI 46.9
[2023-01-05 21:49] VITALS: BMI 46.9
--- NOTE | 2023-01-05 21:50 | CT_ITS ---
PROCEDURE INFORMATION: Exam: CT Head Without Contrast Exam date and time: 01/05/2023 10:03 PM Age: 62 years old Clinical indication: Stroke-like symptoms; Speech disturbance; Right facial droop; Additional info: 1 hr ago slurred speech R facial droop TECHNIQUE: Imaging protocol: Computed tomography of the head without contrast. Radiation optimization: All CT scans at this facility use at least one of these dose optimization techniques: automated exposure control; mA and/or kV adjustment per patient size (includes targeted exams where dose is matched to clinical indication); or iterative reconstruction. Other protocol: This patient has received 3 known CTs and 0 known cardiac nuclear medicine studies in the 12 months prior to the current study. Other technique: STROKE PROTOCOL was implemented. COMPARISON: MR HEAD/BRAIN WO CON 09/04/2022 2:20 PM FINDINGS: Brain: Normal. No hemorrhage. Unremarkable white matter. No mass effect. Cerebral ventricles: Cavum septum pellucidum. Paranasal sinuses: Visualized sinuses are unremarkable. No fluid levels. Mastoid air cells: Visualized mastoid air cells are well aerated. Bones/joints: Unremarkable. No acute fracture. Soft tissues: Stable pericallosal lipoma. IMPRESSION: 1. No acute large vessel occlusion or hemorrhage identified. Consider CTA. 2. Stable pericallosal lipoma. 3. Cavum septum pellucidum. ASSESSMENT: ASPECTS ([facility] Stroke Program Early CT Score) is 10.
--- NOTE | 2023-01-05 21:50 | XR_ITS ---
PROCEDURE INFORMATION: Exam: XR Chest Exam date and time: 01/05/2023 10:11 PM Age: 62 years old Clinical indication: Shortness of breath; Additional info: SOA TECHNIQUE: Imaging protocol: Radiologic exam of the chest. Views: 1 view. COMPARISON: CR XR CHEST PORTABLE 05/23/2022 2:19 PM FINDINGS: Lungs: Unremarkable. No consolidation. Pleural spaces: Unremarkable. No pleural effusion. No pneumothorax. Heart/Mediastinum: Unremarkable. No cardiomegaly. Bones/joints: Osteoarthritic change both shoulders. IMPRESSION: No acute cardiopulmonary findings.
--- NOTE | 2023-01-05 21:54 | ECG_ITS ---
APPROVED REPORT Exam: Resting ECG HR:94 bpm ECG Measurements Heart Rate 94 AXES ME 171 P 46 QRSd 78 QRS -17 QT 340 T 87 QTc 392 Conclusion SINUS RHYTHM LOW QRS VOLTAGE IN PRECORDIAL LEADS [QRS DEFLECTION < 1.0 mV IN CHEST LEADS] NONSPECIFIC T-WAVE ABNORMALITY BORDERLINE ECG UNCONFIRMED REPORT Electronically signed by : Manas Jalloh MD 01/06/2023 19:49:34
[2023-01-05 22:01] LABS: Basophils # 0.2 K/mm3 (0-0.2); Basophils % 1.6 % (0.1-2.0); Eosinophils # 0.1 K/mm3 (0.0-0.4); Eosinophils % 0.8 % (0.1-12.0); Hematocrit 46.5 % (37.0-47.0); Hemoglobin 15.6 g/dL (12.2-16.2); Lymphocytes # 2.3 K/mm3 (0.7-4.5); Lymphocytes % 16.8 % (10-50); Mean Corpuscular HGB Conc 33.5 g/dL (31.8-35.4); Mean Corpuscular Hemoglobin 30.2 pg (27.0-31.2); Mean Corpuscular Volume 90.1 fl (81-99); Mean Platelet Volume 9.2 fl (7.4-10.4); Monocytes # 0.6 K/mm3 (0.1-1.0); Monocytes % 4.7 % (1.7-9.3); Neutrophils # 10.5 K/mm3 (1.8-7.8); Neutrophils % 76.2 % (37.0-80.0); Platelet Count 433 K/mm3 (142-424); Red Blood Count 5.16 M/mm3 (4.20-5.40); Red Cell Distribution Width 16.7 % (11.5-17.5); White Blood Count 13.7 K/mm3 (4.8-10.8)
[2023-01-05 22:06] LABS: Alanine Aminotransferase 31 U/L (12-78); Albumin Level 4.7 g/dl (3.5-5.0); Albumin/Globulin Ratio 1.2 (1.1-1.8); Alkaline Phosphatase 158 U/L (38-126); Aspartate Amino Transferase 31 U/L (14-36); Bilirubin,Total 0.8 mg/dl (0.2-1.3); Blood Urea Nitrogen 20 mg/dl (7-17); Carbon Dioxide 22 mmol/L (22.0-30.0); Chloride 103 mmol/L (98-107); Creatinine Clearance Estimated 52 mL/min (50-200); Estimated Glomerular Filt Rate 63 ml/min (>60); GFR (African American) 77 ML/MIN (>60); Globulin 3.9 g/dL (1.3-3.2); Glucose 112 mg/dl (74-100); Magnesium 1.5 mg/dl (1.6-2.3); Sodium 137 mmol/L (136-145); Total Protein,Serum 8.6 g/dl (6.3-8.2)
--- NOTE | 2023-01-05 22:06 | PC.NURSE ---
Pt back in room from RAD
--- NOTE | 2023-01-05 22:17 | PC.NURSE ---
Dr. Bah s/w EUGENIAAD
[2023-01-05 22:18] LABS: NT Pro Brain Natriuretic Pep. 35.9 pg/mL (0-125)
[2023-01-05 22:25] LABS: Troponin I < 0.01 ng/ml (0.00-0.034)
[2023-01-05 22:27] LABS: Procalcitonin 0.054 ng/mL (0.0-2.0); T4 (Thyroxine) 10.7 ug/dl (5.53-11.0)
[2023-01-05 22:29] LABS: Erythrocyte Sedimentation Rate 39 mm/hr (0-30)
[2023-01-05 22:30] VITALS: BP 135/84; PULSE 87; RESP 16; O2SAT 92
--- NOTE | 2023-01-05 22:32 | CT_ITS ---
PROCEDURE INFORMATION: Exam: CTA Head With Contrast, Arteriography Exam date and time: 01/05/2023 10:40 PM Age: 62 years old Clinical indication: Stroke-like symptoms; Speech disturbance; Right facial droop; Additional info: Nihss 0, 1 hr ago R facial droop slurred speech TECHNIQUE: Imaging protocol: Computed tomographic angiography of the head with contrast. Exam focused on the arteries. 3D rendering (Not supervised by radiologist): MIP and/or 3D reconstructed images were created by the technologist. Radiation optimization: All CT scans at this facility use at least one of these dose optimization techniques: automated exposure control; mA and/or kV adjustment per patient size (includes targeted exams where dose is matched to clinical indication); or iterative reconstruction. Contrast material: ISOVUE; Contrast volume: 100 ml; Contrast route: INTRAVENOUS (IV); Other protocol: This patient has received 5 known CTs and 0 known cardiac nuclear medicine studies in the 12 months prior to the current study. COMPARISON: CT HEAD/BRAIN WO CON 01/05/2023 10:03 PM FINDINGS: ANTERIOR CIRCULATION: Right internal carotid artery: Intracranial segment is patent with no significant stenosis. No aneurysm. Right middle cerebral artery: No occlusion or significant stenosis. No aneurysm. Right anterior cerebral artery: No occlusion or significant stenosis. No aneurysm. Left internal carotid artery: Intracranial segment is patent with no significant stenosis. No aneurysm. Left middle cerebral artery: No occlusion or significant stenosis. No aneurysm. Left anterior cerebral artery: No occlusion or significant stenosis. No aneurysm. POSTERIOR CIRCULATION: Right vertebral artery: No occlusion or significant stenosis. No aneurysm. Left vertebral artery: No occlusion or significant stenosis. No aneurysm. Basilar artery: No occlusion or significant stenosis. No aneurysm. Right posterior cerebral artery: No occlusion or significant stenosis. No aneurysm. Left posterior cerebral artery: No occlusion or significant stenosis. No aneurysm. Brain: No definite mass, mass effect, or midline shift. Cerebral ventricles: No ventriculomegaly. Bones/joints: Unremarkable. No acute fracture. Soft tissues: Unremarkable. IMPRESSION: No large vessel stenosis or occlusion.
--- NOTE | 2023-01-05 22:32 | CT_ITS ---
PROCEDURE INFORMATION: Exam: CTA Neck With Contrast Exam date and time: 01/05/2023 10:40 PM Age: 62 years old Clinical indication: Stroke-like symptoms; Speech disturbance; Right facial droop; Additional info: Nihss 0, 1 hr ago R facial droop slurred speech TECHNIQUE: Imaging protocol: Computed tomographic angiography of the neck with contrast. 3D rendering (Not supervised by radiologist): MIP and/or 3D reconstructed images were created by the technologist. Radiation optimization: All CT scans at this facility use at least one of these dose optimization techniques: automated exposure control; mA and/or kV adjustment per patient size (includes targeted exams where dose is matched to clinical indication); or iterative reconstruction. Contrast material: ISOVUE; Contrast volume: 100 ml; Contrast route: INTRAVENOUS (IV); Other protocol: This patient has received 5 known CTs and 0 known cardiac nuclear medicine studies in the 12 months prior to the current study. COMPARISON: MR CERVICAL SPINE WO CON 06/01/2020 2:28 PM FINDINGS: Right common carotid artery: No stenosis. No dissection or occlusion. Right internal carotid artery: No stenosis of the extracranial segment. No dissection or occlusion. Right external carotid artery: No occlusion or stenosis of the origin. Left common carotid artery: No stenosis. No dissection or occlusion. Left internal carotid artery: No stenosis of the extracranial segment. No dissection or occlusion. Left external carotid artery: No occlusion or stenosis of the origin. Right vertebral artery: No stenosis. No dissection or occlusion. Left vertebral artery: No stenosis. No dissection or occlusion. Soft tissues: Normal. No significant soft tissue swelling. Bones/joints: No acute fracture. IMPRESSION: No stenosis or occlusion. REFERENCES: NASCET CRITERIA. The degree of stenosis in the cervical segment of the internal carotid artery is based on NASCET criteria. Normal is no stenosis. Mild is less than 50% stenosis. Moderate is 50-69% stenosis. Severe is 70% to 99% stenosis. Total occlusion is no detectable patent lumen.
[2023-01-05 22:41] LABS: Thyroid Stimulating Hormone 4.24 uIU/mL (0.465-4.68)
[2023-01-05 22:43] LABS: Coronavirus 19, PCR Not Detected (NotDetected); Influenza A, PCR Not Detected (NotDetected); Influenza B, PCR Not Detected (NotDetected)
[2023-01-05 22:49] LABS: Lactic Acid 1.6 mmol/L (0.7-2.1)
[2023-01-05 22:57] LABS: Microscopic, Urine URINE MICROSCOPIC (MICROSCOPIC)
--- NOTE | 2023-01-05 22:57 | PC.NURSE ---
Dr. Bah s/w TRINO for cta results
[2023-01-05 23:00] VITALS: BP 122/90; PULSE 85; O2SAT 93
[2023-01-05 23:00] LABS: Appearance,Urine SL CLOUDY (Clear); Blood, Urine Negative (Negative); Color,Urine YELLOW (Yellow); Glucose,Urine (UA) Negative (Negative); Ketones,Urine Negative (Negative); Leukocyte Esterase,Urine 1+ (Negative); Nitrate,Urine Negative (Negative); Protein,Urine Negative (Negative); Specific Gravity, Urine >= 1.030 (1.005-1.030); Urobilinogen,Urine 0.2 EU/dl (0.2)
[2023-01-05 23:10] LABS: Bilirubin,Urine 1+ (Negative)
[2023-01-05 23:13] LABS: Bacteria,Urine 1+ /lpf
[2023-01-05 23:30] VITALS: BP 121/83; PULSE 86; O2SAT 92
--- NOTE | 2023-01-06 00:16 | HMH.EDNEU ---
Discharge Plan Disposition Patient Disposition: Home, Self-Care Chief Complaint: Neuro Symptoms/Deficit Prescriptions Prescriptions: No Action aspirin [Adult Low Dose Aspirin] 81 mg tablet,delayed release (DR/EC) 81 mg PO DAILY duloxetine 60 mg capsule,delayed release(DR/EC) 60 mg PO HS 30 Days Qty: 30 calcium carbonate-vitamin D3 [Oyster Shell Calcium-Vit D3] 500 mg-5 mcg (200 unit) tablet 1 tab PO DAILY topiramate 50 mg tablet 50 mg PO BID Qty: 90 6RF Rx Instructions: Increase to 50 mg, (1 tablet) in the morning and 100 mg, (2 tablets) at night cetirizine 10 mg tablet 10 mg PO DAILY lorazepam 1 mg tablet 1 mg PO Q4-6H PRN (Reason: Anxiety) 30 Days Qty: 90 omeprazole 40 mg capsule,delayed release(DR/EC) 40 mg PO DAILY potassium chloride 20 mEq tablet,ER particles/crystals 20 meq PO TID montelukast 10 mg tablet 10 mg PO DAILY Trelegy Ellipta 200-62.5-25 mcg blister with device 1 inh inhalation DAILY atorvastatin 40 mg tablet 40 mg PO HS albuterol sulfate 108 HFA aerosol inhaler 2 puff INHALATION Q4HP PRN (Reason: Shortness Of Breath Or Wheezing) famotidine 20 mg tablet 20 mg PO DAILY oxycodone-acetaminophen 10-325 mg tablet 10 mg PO TID ondansetron 4 mg tablet,disintegrating 4 mg PO Q8H PRN (Reason: nausea and vomiting) Qty: 9 0RF Referrals Follow up/Referrals: Manas Jenkins MD [Primary Care Provider] - See instructions Clinical Impressions Clinical Impression: Brain TIA Instructions Patient Instructions: DI for Transient Ischemic Attack Discharge ED Provider: Niurka (ED)Adrien Neuro HPI General Chief Complaint: Neuro Symptoms/Deficit Stated Complaint: Stroke Symptoms Time Seen by Provider: 01/06/23 00:16 Mode of Arrival: Family Vehicle Source of Information: Patient, Spouse and Medical Record Limitations: L sided weakness (baseline) Description of Symptoms (Recalled from ER Triage Doc. by RN): Presents with c/o 1 hr ago (2044) she experienced R sided facial droop & slurred speech. None is present at this time, NHISS 0. She is A&Ox3. Denies any n/v/d. Denies any chest pain, dizziness, or cough. She does note soa when laying flat. History of Present Illness HPI Narrative: acute about 20 min episode of slurred speech and rt facial weakness - no visual loss or motor sx - no palpitation /trauma or fall - no fever - hx of cva yrs ago Onset (ago): minute(s) Timing confirmed by: spouse Location: right face and dysarthria History of same: No Severity: moderate Quality: tingling Context: sudden onset On Anticoagulants: No Associated symptoms: denies other symptoms Treatments Prior to Arrival: none Related Data Home Medications Medication Instructions Recorded Confirmed aspirin 81 mg tablet,delayed 81 mg PO DAILY CAD 01/07/18 01/05/23 release (Adult Low Dose Aspirin) lorazepam 1 mg tablet 1 mg PO Q4-6H PRN Anxiety 30 days 06/01/18 12/19/22 ##90 duloxetine 60 mg capsule,delayed 60 mg PO HS mood 30 days #30 caps 09/24/18 01/05/23 release albuterol sulfate 90 mcg/actuation 2 puff inhalation Q4HP PRN 11/22/18 12/19/22 aerosol inhaler Shortness Of Breath Or Wheezing omeprazole 40 mg capsule,delayed 40 mg PO DAILY GERD 04/01/19 01/05/23 release potassium chloride 20 mEq 20 meq PO TID SUPPLIMENT 03/01/22 01/05/23 tablet,extended release(part/cryst) atorvastatin 40 mg tablet 40 mg PO HS Cholesterol 07/22/22 01/05/23 fluticasone fur. 200 mcg-umeclid 1 inh inhalation DAILY Breathing 07/22/22 01/05/23 62.5 mcg-vilant 25 mcg problems inhalat.powder (Trelegy Ellipta) montelukast 10 mg tablet 10 mg PO DAILY ALLERGIES 07/22/22 01/05/23 calcium carbonate 500 mg-vitamin 1 tab PO DAILY SUPPLIMENT 09/23/22 12/19/22 D3 5 mcg (200 unit) tablet (Oyster Shell Calcium-Vitamin D3) oxycodone-acetaminophen 10 mg-325 10 mg PO TID PAIN 09/23/22 01/05/23 mg tablet famotidine 20 mg tablet 20 m
[2023-01-06 00:22] VITALS: BP 132/72; PULSE 84; RESP 20; TEMP 36.7; O2SAT 95
== END 2023-01-06 00:34 | disposition home or self-care (01) ==
PROVIDERS: Emergency Provider Emergency Medicine; PCP Family Medicine
DX: G45.9 Transient cerebral ischemic attack, unspecified (principal); J45.909 Unspecified asthma, uncomplicated; K21.9 Gastro-esophageal reflux disease without esophagitis; E78.5 Hyperlipidemia, unspecified; I11.9 Hypertensive heart disease without heart failure; Z90.49 Acquired absence of other specified parts of digestive tract; Z80.9 Family history of malignant neoplasm, unspecified; Z90.710 Acquired absence of both cervix and uterus; Z87.891 Personal history of nicotine dependence; Z20.822 Contact with and (suspected) exposure to COVID-19
CPT/HCPCS: 70450; 70496; 70498; 71045; 80053; 81001; 83605; 83735; 83880; 84145; 84436; 84443; 84484; 85025; 85651; 86140; 87086; 93005; 96360; 99285; C9803; Q9967; U0003; U0005

== ENCOUNTER → 2023-01-13 14:25 | Outpatient (POV) | payer MEDICARE, OTHER, SELFPAY ==
--- NOTE | 2023-01-13 14:46 | EXP.PAIN.SOA ---
[facility] Pain Management SOAP Note Subjective:: Patient is a pleasant 62-year-old who presents today for follow-up of right genicular nerve block on 12/10/2022. We are currently treating the patient for degenerative disc disease of lumbar spine with lumbar radiculopathy symptoms, spinal stenosis, bilateral knee pain, osteoarthritis bilateral knees. Today the patient rates her pain a 4 out of 10. Patient states that she has had at least 50% improvement of her right knee pain. Patient states she has been able to increase her activity and states that she has had better range of motion with this extremity. Patient states that this time she is still getting relief in her right knee. This is her second right genicular nerve block. Patient does state today's pain is more involving her left knee. Patient does describe this as a aching, throbbing sensation that is worse with increased activity. Patient is interested in trying the genicular nerve block for her left knee at today's visit. At our last visit the patient was experiencing a stomach bug and she states that at today's visit she is much better and denies any additional issues. Patient is currently managed with Percocet 10 mg 3 times a day from her primary care doctor. Patient denies any side effects from this medication. At previous visits we did discuss that she may be a beneficial candidate for a spinal cord stimulator trial. Patient has had a psychiatric evaluation completed and was deemed an appropriate candidate however her insurance denied the trial. Her Adonay is [phone]. Its been reviewed and appropriate. Review of Systems: General: No recent weight changes, no fever, no sleep disturbances Respiratory: No cough, no shortness of air, no recurring pulmonary infections Cardiovascular/peripheral vascular: No chest pain, no palpitations, no edema, no shortness of breath Gastrointestinal: No new onset incontinence, normal bowel movements reported Genitourinary: No new onset incontinence Musculoskeletal: Left knee pain Psychiatric: [Normal mood/affect] Neurological: [Denies weakness in extremities], [denies balance issues] Objective:: Physical Exam: General: Alert and oriented x3, no acute distress, pleasant and cooperative Lungs: Respirations even and unlabored, symmetrical chest expansion Eyes: PERRL Musculoskeletal: Flexion and extension of left knee somewhat guarded secondary to pain, [antalgic gait noted] Neurological: Speech clear, no gross sensory deficit Assessment:: Degenerative disc disease of lumbar spine with lumbar radiculopathy symptoms, spinal stenosis, bilateral knee pain, osteoarthritis bilateral knees Plan:: Patient is experiencing significant pain in her left knee with limited range of motion. I have discussed with the patient that she may benefit from diagnostic genicular nerve block at this extremity. Risk and benefits were discussed with the patient and she would like to proceed forward with this plan of care. Patient has had at least 50% improvement following her right genicular nerve block and is still doing well at today's visit. We will schedule the patient for a diagnostic left genicular nerve block. Patient has been instructed to contact the clinic with any concerns before the next appointment. Dr. Orozco has reviewed this note and agrees with this plan of care. This note was dictated using voice recognition software and make contain errors or omissions. [facility] Disclaimer: The information contained in this section may have been updated after the patient was seen, as this information can be updated by other users. Medical History (Updated 01/06/23 @ 00:24 by Adrien Bah (JOVANA)MD) Asthma Gastroesophageal reflux disease Hyperglycemia Hyperlipidemia Hypertensive disorder APARNA (obstructive sleep apnea) Osteoarthritis Surgical History H/O: H/O: hysterectomy History of arthroplasty of left shoulde
[2023-01-13 15:31] VITALS: BP 123/69; PULSE 75; RESP 18; O2SAT 96; BMI 46.9
== END ==
PROVIDERS: PCP Family Medicine; Visit Provider Nurse Practitioner Family
DX: M51.16 Intervertebral disc disorders with radiculopathy, lumbar region (principal); M17.0 Bilateral primary osteoarthritis of knee; M48.00 Spinal stenosis, site unspecified; M25.561 Pain in right knee; M25.562 Pain in left knee; Z79.899 Other long term (current) drug therapy
CPT/HCPCS: 99212; G0463

== ENCOUNTER → 2023-01-14 08:28 | Outpatient (CLI) | payer MEDICARE, OTHER, SELFPAY ==
[2023-01-14 09:51] LABS: Basophils # 0.1 K/mm3 (0-0.2); Basophils % 1.2 % (0.1-2.0); Eosinophils # 0.2 K/mm3 (0.0-0.4); Eosinophils % 2.4 % (0.1-12.0); Hematocrit 41.5 % (37.0-47.0); Hemoglobin 12.9 g/dL (12.2-16.2); Lymphocytes # 1.5 K/mm3 (0.7-4.5); Lymphocytes % 22.3 % (10-50); Mean Corpuscular Hemoglobin 29.4 pg (27.0-31.2); Mean Corpuscular Volume 94.7 fl (81-99); Mean Platelet Volume 9.3 fl (7.4-10.4); Monocytes # 0.4 K/mm3 (0.1-1.0); Monocytes % 5.2 % (1.7-9.3); Neutrophils # 4.7 K/mm3 (1.8-7.8); Neutrophils % 68.8 % (37.0-80.0); Platelet Count 375 K/mm3 (142-424); Red Blood Count 4.38 M/mm3 (4.20-5.40); Red Cell Distribution Width 16.5 % (11.5-17.5); White Blood Count 6.8 K/mm3 (4.8-10.8)
[2023-01-14 09:56] LABS: Sodium 137 mmol/L (136-145)
[2023-01-14 09:59] LABS: Alanine Aminotransferase 14 U/L (12-78); Albumin Level 3.7 g/dl (3.5-5.0); Albumin/Globulin Ratio 1.3 (1.1-1.8); Alkaline Phosphatase 111 U/L (38-126); Anion Gap 4.8 mEq/L (5-15); Aspartate Amino Transferase 20 U/L (14-36); Bilirubin,Total 0.5 mg/dl (0.2-1.3); Blood Urea Nitrogen 14 mg/dl (7-17); Calcium 8.6 mg/dl (8.4-10.2); Carbon Dioxide 30 mmol/L (22.0-30.0); Chloride 107 mmol/L (98-107); Estimated Glomerular Filt Rate 85 ml/min (>60); GFR (African American) 102 ML/MIN (>60); Globulin 2.8 g/dL (1.3-3.2); Glucose 95 mg/dl (74-100); Potassium 4.8 mmoL/L (3.5-5.1); Total Protein,Serum 6.5 g/dl (6.3-8.2)
[2023-01-14 10:07] LABS: Hemoglobin A1C 5.5 % (4.0-6.0)
== END ==
PROVIDERS: PCP Family Medicine; Visit Provider Family Medicine
DX: R73.02 Impaired glucose tolerance (oral) (principal); E66.9 Obesity, unspecified; Z68.35 Body mass index [BMI] 35.0-35.9, adult
CPT/HCPCS: 36415; 80053; 83036; 85025

== ENCOUNTER 2023-02-21 02:38 | Inpatient (IN) | payer MEDICARE, OTHER, SELFPAY ==
[2023-02-21] VITALS (15 sets, daily range): BP systolic 119–152; BP diastolic 63–108; PULSE 78–145; RESP 17–27; TEMP 36.6–38.1; O2SAT 80–95; BMI 53.1; BMI 46.3
--- NOTE | 2023-02-21 02:34 | ECG_ITS ---
APPROVED REPORT Exam: Resting ECG HR:119 bpm ECG Measurements Heart Rate 119 AXES VA 164 P 30 QRSd 72 QRS -40 QT 323 T 73 QTc 393 Conclusion SINUS TACHYCARDIA LEFT AXIS DEVIATION [QRS AXIS < -30] LOW QRS VOLTAGE IN PRECORDIAL LEADS Previously note STTW changes UNCONFIRMED REPORT Electronically signed by : Manas Jalloh MD 02/21/2023 22:37:01
--- NOTE | 2023-02-21 02:41 | CT_ITS ---
PROCEDURE INFORMATION: Exam: CT Head Without Contrast Exam date and time: 02/21/2023 3:22 AM Age: 62 years old Clinical indication: Injury or trauma; Fall; Additional info: Fall, loc TECHNIQUE: Imaging protocol: Computed tomography of the head without contrast. Radiation optimization: All CT scans at this facility use at least one of these dose optimization techniques: automated exposure control; mA and/or kV adjustment per patient size (includes targeted exams where dose is matched to clinical indication); or iterative reconstruction. REPORTING DATA: Count of CT and Cardiac NM exams in prior 12 months: This patient has received 6 known CTs and 0 known cardiac nuclear medicine studies in the 12 months prior to the current study. COMPARISON: CT HEAD/BRAIN WO CON 01/05/2023 10:03 PM FINDINGS: Brain: Unchanged pericallosal lipoma. Normal appearing brain parenchyma without intraparenchymal hemorrhage and normal goff-white matter differentiation/no obvious acute ischemic stroke. No intra-or extra-axial fluid collection, no supra-or infratentorial mass, no mass effect or midline shift. Cerebral ventricles: Ventricles, sulci and basal cisterns are normal in size without hydrocephalus. Paranasal sinuses: No significant mucoperiosteal thickening in the visualized paranasal sinuses. Mastoid air cells: No mastoid effusion. Bones/joints: Visualized skull bones are grossly normal. Soft tissues: NA IMPRESSION: 1. Unchanged pericallosal lipoma. 2. No evidence of an acute intracranial hemorrhage, mass lesion or obvious acute ischemic infarction.
--- NOTE | 2023-02-21 02:41 | XR_ITS ---
PROCEDURE INFORMATION: Exam: XR Pelvis Exam date and time: 02/21/2023 3:19 AM Age: 62 years old Clinical indication: Injury or trauma; Fall; Blunt trauma (contusions or hematomas); Does not apply; Pelvic region TECHNIQUE: Imaging protocol: Radiologic exam of the pelvis. Views: 1 or 2 view. COMPARISON: No relevant prior studies available. FINDINGS: Bones/joints: Chronic degenerative changes in the lower lumbar spine, sacroiliac and hip joints. IMPRESSION: Chronic degenerative changes.
--- NOTE | 2023-02-21 02:41 | XR_ITS ---
PROCEDURE INFORMATION: Exam: XR Chest Exam date and time: 02/21/2023 3:21 AM Age: 62 years old Clinical indication: Injury or trauma; Fall; Shortness of breath; Blunt trauma (contusions or hematomas); Additional info: Fall, SOA TECHNIQUE: Imaging protocol: Radiologic exam of the chest. Views: 1 view. COMPARISON: CR XR CHEST PORTABLE 01/05/2023 10:11 PM FINDINGS: Lungs: Prominent lung markings/peribronchial thickening without definite evidence of consolidation. Asymmetric atelectasis, scarring and RIGHT lung volume loss. Pleural spaces: No evidence of pleural effusion or pneumothorax. Heart/Mediastinum: Heart size is normal, cental pulmonary vascular congestion. Tortuous ascending and descending thoracic aorta. Bones/joints: Chronic degenerative changes in the visualized spine and shoulder joint(s). IMPRESSION: Chronic cardiopulmonary changes without evidence of an active lung parenchymal lesion.
[2023-02-21 02:47] LABS: ABG Base Excess -6.3 mmol/L (-2.4-2.3); ABG HCO3 19.8 mmhg (22.0-26.0); ABG Oxygen Saturation 88 % (90-100); ABG PCO2 39.2 mmhg (35.0-45.0); ABG PH 7.32 mmol/L (7.35-7.45); ABG PO2 57.6 mmhg (80-100)
[2023-02-21 02:48] LABS: Allen's Test Acceptable; Oxygen 4LPM N/C %; Source Right Radial
--- NOTE | 2023-02-21 03:03 | HMH.EDWEAK ---
Discharge Plan Disposition Patient Disposition: Admitted As Inpatient Chief Complaint: Weakness Prescriptions Prescriptions: No Action aspirin [Adult Low Dose Aspirin] 81 mg tablet,delayed release (DR/EC) 81 mg PO DAILY duloxetine 60 mg capsule,delayed release(DR/EC) 60 mg PO HS 30 Days Qty: 30 calcium carbonate-vitamin D3 [Oyster Shell Calcium-Vit D3] 500 mg-5 mcg (200 unit) tablet 1 tab PO DAILY cetirizine 10 mg tablet 10 mg PO DAILY sumatriptan succinate 100 mg tablet 100 mg PO DIRECTED PRN (Reason: migraines) topiramate 50 mg tablet 100 mg PO BID Qty: 360 3RF lorazepam 1 mg tablet 1 mg PO Q4-6H PRN (Reason: Anxiety) 30 Days Qty: 90 omeprazole 40 mg capsule,delayed release(DR/EC) 40 mg PO DAILY potassium chloride 20 mEq tablet,ER particles/crystals 20 meq PO TID montelukast 10 mg tablet 10 mg PO DAILY Trelegy Ellipta 200-62.5-25 mcg blister with device 1 inh inhalation DAILY atorvastatin 40 mg tablet 40 mg PO HS albuterol sulfate 108 HFA aerosol inhaler 2 puff INHALATION Q4HP PRN (Reason: Shortness Of Breath Or Wheezing) famotidine 20 mg tablet 20 mg PO DAILY prochlorperazine maleate 10 mg tablet 10 mg PO DAILY tramadol 50 mg tablet 50 mg PO TIDP PRN (Reason: Pain) cholecalciferol (vitamin D3) 50 mcg (2,000 unit) tablet 50 mcg PO DAILY Referrals Follow up/Referrals: Manas Jenkins MD [Primary Care Provider] - See instructions Clinical Impressions Clinical Impression: CAP (community acquired pneumonia), Obesity, Severe sepsis with acute organ dysfunction, Septic shock, Elevated troponin, Respiratory failure with hypoxia Discharge ED Provider: Niurka (ED)Adrien Weakness HPI General Chief complaint: Weakness Stated complaint: Fall, Low O2 & BP, HR 120s Time Seen by Provider: 02/21/23 03:03 Mode of Arrival: EMS Source of Information: Patient, EMS and Medical Record Limitations: Physical Limitations Description of Symptoms (Recalled from ER Triage Doc. by RN): Pt c/o weakness, burning with urination, and general malaise for the past few days. Her found her fallen between the bed & the wall and unresponsive. Prior to EMS arriving, pt began to respond to her . Per EMS, pt was very diaphoretic, HR 120s, and inital BP of 50s/30s. She was reporting SOA with room air sat 80s, which did increase to 90% with 3LPM NC. Pt also c/o pain down my legs . History of Present Illness HPI Narrative: pt with reported not feeling well over the last few days and has cough with green sputum and fever and had syncopal episode tonight - no chest pain but has abd pain MD Complaint: generalized weakness Onset (ago): hour(s) Duration: intermittent Severity: moderate Associated symptoms: shortness of breath Related Data Home Medications Medication Instructions Recorded Confirmed aspirin 81 mg tablet,delayed 81 mg PO DAILY CAD 01/07/18 02/21/23 release (Adult Low Dose Aspirin) lorazepam 1 mg tablet 1 mg PO Q4-6H PRN Anxiety 30 days 06/01/18 02/21/23 ##90 duloxetine 60 mg capsule,delayed 60 mg PO HS mood 30 days #30 caps 09/24/18 02/21/23 release albuterol sulfate 90 mcg/actuation 2 puff inhalation Q4HP PRN 11/22/18 02/21/23 aerosol inhaler Shortness Of Breath Or Wheezing omeprazole 40 mg capsule,delayed 40 mg PO DAILY GERD 04/01/19 02/21/23 release potassium chloride 20 mEq 20 meq PO TID SUPPLIMENT 03/01/22 02/21/23 tablet,extended release(part/cryst) atorvastatin 40 mg tablet 40 mg PO HS Cholesterol 07/22/22 02/21/23 fluticasone fur. 200 mcg-umeclid 1 inh inhalation DAILY Breathing 07/22/22 02/21/23 62.5 mcg-vilant 25 mcg problems inhalat.powder (Trelegy Ellipta) montelukast 10 mg tablet 10 mg PO DAILY ALLERGIES 07/22/22 02/21/23 calcium carbonate 500 mg-vitamin 1 tab PO DAILY SUPPLIMENT 09/23/22 02/21/23 D3 5 mcg (200 unit) tablet (Oyster Shell Calcium-Vitamin D3) famo
--- NOTE | 2023-02-21 03:09 | PC.NURSE ---
RT at BS
[2023-02-21 03:10] LABS: Alanine Aminotransferase 81 U/L (12-78); Albumin Level 3.9 g/dl (3.5-5.0); Albumin/Globulin Ratio 1.2 (1.1-1.8); Alkaline Phosphatase 172 U/L (38-126); Anion Gap 11.7 mEq/L (5-15); Aspartate Amino Transferase 118 U/L (14-36); Bilirubin,Total 0.8 mg/dl (0.2-1.3); Blood Urea Nitrogen 14 mg/dl (7-17); Calcium 8.4 mg/dl (8.4-10.2); Carbon Dioxide 23 mmol/L (22.0-30.0); Chloride 106 mmol/L (98-107); Creatinine Clearance Estimated 43 mL/min (50-200); Estimated Glomerular Filt Rate 50 ml/min (>60); GFR (African American) 61 ML/MIN (>60); Globulin 3.2 g/dL (1.3-3.2); Glucose 178 mg/dl (74-100); Potassium 3.7 mmoL/L (3.5-5.1); Sodium 137 mmol/L (136-145); Total Protein,Serum 7.1 g/dl (6.3-8.2)
[2023-02-21 03:11] LABS: Magnesium 1.7 mg/dl (1.6-2.3)
[2023-02-21 03:12] LABS: Basophils # 0.2 K/mm3 (0-0.2); Basophils % 0.6 % (0.1-2.0); Eosinophils % 0.1 % (0.1-12.0); Hematocrit 42.5 % (37.0-47.0); Hemoglobin 13.1 g/dL (12.2-16.2); Lymphocytes # 0.6 K/mm3 (0.7-4.5); Lymphocytes % 1.9 % (10-50); Mean Corpuscular HGB Conc 30.9 g/dL (31.8-35.4); Mean Corpuscular Hemoglobin 29.1 pg (27.0-31.2); Mean Corpuscular Volume 94.3 fl (81-99); Mean Platelet Volume 9.3 fl (7.4-10.4); Monocytes # 1.1 K/mm3 (0.1-1.0); Monocytes % 3.8 % (1.7-9.3); Neutrophils # 27.8 K/mm3 (1.8-7.8); Neutrophils % 93.7 % (37.0-80.0); Platelet Count 310 K/mm3 (142-424); Red Cell Distribution Width 16.1 % (11.5-17.5); White Blood Count 29.6 K/mm3 (4.8-10.8)
[2023-02-21 03:20] LABS: MANUAL DIFFERENTIAL MANUAL DIFFERENTIAL (MANUAL DIFF)
[2023-02-21 03:22] LABS: NT Pro Brain Natriuretic Pep. 425 pg/mL (0-125)
[2023-02-21 03:26] LABS: Troponin I 0.22 ng/ml (0.00-0.034)
--- NOTE | 2023-02-21 03:27 | PC.NURSE ---
Troponin 0.22
[2023-02-21 03:28] LABS: Microscopic, Urine URINE MICROSCOPIC (MICROSCOPIC)
[2023-02-21 03:33] LABS: Appearance,Urine CLEAR (Clear); Bilirubin,Urine Negative (Negative); Blood, Urine TRACE-L (Negative); Color,Urine YELLOW (Yellow); Glucose,Urine (UA) Negative (Negative); Ketones,Urine Negative (Negative); Leukocyte Esterase,Urine Negative (Negative); Nitrate,Urine Negative (Negative); PH,Urine 6.5 (5.0-8.5); Protein,Urine Negative (Negative)
[2023-02-21 03:46] LABS: Coronavirus 19, PCR Not Detected (NotDetected); Influenza A, PCR Not Detected (NotDetected); Influenza B, PCR Not Detected (NotDetected)
[2023-02-21 03:51] LABS: Bacteria,Urine Trace /lpf; Squamous Epithelial Cell,Urine Occasional #/hpf (0-5); WBC,Urine Occasional #/hpf (0-3)
[2023-02-21 03:55] LABS: Amylase 105 U/L (30-110)
[2023-02-21 03:56] LABS: Lipase 49 U/L (23-300)
--- NOTE | 2023-02-21 03:59 | PC.NURSE ---
Dr. Bah at
--- NOTE | 2023-02-21 04:07 | CT_ITS ---
PROCEDURE INFORMATION: Exam: CTA Chest With Contrast Exam date and time: 02/21/2023 4:33 AM Age: 62 years old Clinical indication: Shortness of breath; Additional info: SOA, hypoxia, negative cxr Other procedure information: A thank you hello hiatus at the cervical OS scarring in this patient marked TECHNIQUE: Imaging protocol: Computed tomographic angiography of the chest with contrast. 3D rendering (Not supervised by radiologist): MIP and/or 3D reconstructed images were created by the technologist. Radiation optimization: All CT scans at this facility use at least one of these dose optimization techniques: automated exposure control; mA and/or kV adjustment per patient size (includes targeted exams where dose is matched to clinical indication); or iterative reconstruction. Contrast material: ISOVUE; Contrast volume: 70 ml; Contrast route: INTRAVENOUS (IV); REPORTING DATA: Count of CT and Cardiac NM exams in prior 12 months: This patient has received 8 known CTs and 0 known cardiac nuclear medicine studies in the 12 months prior to the current study. COMPARISON: CT ANGIO CHEST PE PROTOCOL 05/23/2022 3:36 PM FINDINGS: Pulmonary arteries: Suboptimal study due to extensive respiratory/cardiac motion and streak artifact from patient's arm within the scanning field. The main, right, and left pulmonary arteries grossly show normal enhancement. Aorta: No thoracic aortic aneurysm or dissection. Lungs: Confluent and focal areas of airspace opacities in the dependent RIGHT upper and lower lobes and in the LEFT lower lobe. Marked diffuse narrowing of the distal trachea, cruz, RIGHT and LEFT major bronchi and distal airways. Pleural spaces: Trace pleural effusion/thickening without pneumothorax. Heart: Mild cardiomegaly without pericardial effusion. Lymph nodes: Mild to moderately enlarged mediastinal/hilar lymph nodes. Soft tissues: Probable fatty infiltration of the liver with cirrhotic changes. Mild wall thickening of the thoracic esophagus suggestive of esophagitis/reflux. Bones/joints: Chronic degenerative changes in the visualized spine and shoulder joint(s). IMPRESSION: 1. Suboptimal study NONDIAGNOSTIC for evaluation of acute pulmonary thromboembolism. VQ scan may be considered if clinically indicated. 2. Findings suspicious for aspiration pneumonia predominately in the RIGHT lung and LEFT lower lobe. 3. Narrowing of the trachea and major bronchi suggestive of tracheobronchomalacia. 4. Other nonemergent/incidental findings as described. COMMENTS: Suboptimal study due to extensive streak artifact from patient's arms within the scanning field and due to motion artifact.
--- NOTE | 2023-02-21 04:07 | CT_ITS ---
PROCEDURE INFORMATION: Exam: CT Abdomen And Pelvis With Contrast Exam date and time: 02/21/2023 4:33 AM Age: 62 years old Clinical indication: Abdominal pain; Localized; Left lower quadrant (llq); Additional info: Abd pain, nausea, tender llq. TECHNIQUE: Imaging protocol: Computed tomography of the abdomen and pelvis with contrast. Radiation optimization: All CT scans at this facility use at least one of these dose optimization techniques: automated exposure control; mA and/or kV adjustment per patient size (includes targeted exams where dose is matched to clinical indication); or iterative reconstruction. Contrast material: ISOVUE; Contrast volume: 70 ml; Contrast route: IV; REPORTING DATA: Count of CT and Cardiac NM exams in prior 12 months: This patient has received 8 known CTs and 0 known cardiac nuclear medicine studies in the 12 months prior to the current study. COMPARISON: CT ABDOMEN PELVIS WO CON 11/27/2022 3:18 PM FINDINGS: Lungs: Some right lower lobe airspace disease is noted. Atelectasis is seen in the left lung base. Liver: Normal. No mass. Gallbladder and bile ducts: The patient has a prior cholecystectomy. Pancreas: Normal. No ductal dilation. Spleen: Normal. No splenomegaly. Adrenal glands: Normal. No mass. Kidneys and ureters: Normal. No hydronephrosis. Stomach and bowel: Unremarkable. No obstruction. No mucosal thickening. Appendix: No evidence of appendicitis. Intraperitoneal space: Unremarkable. No free air. No significant fluid collection. Vasculature: Unremarkable. No abdominal aortic aneurysm. Lymph nodes: Unremarkable. No enlarged lymph nodes. Urinary bladder: Ni catheter decompresses the bladder. Reproductive: Prior hysterectomy. Bones/joints: Unremarkable. No acute fracture. Soft tissues: Unremarkable. IMPRESSION: 1. Right lower lobe infiltrate. 2. No intra-abdominal acute process noted. 3. Prior cholecystectomy and hysterectomy.
--- NOTE | 2023-02-21 04:33 | PC.NURSE ---
Pt to CT via stretcher
[2023-02-21 04:41] LABS: Lymphocytes % 5 % (10-50); Neutrophils % 95 % (42-76); Total Cells Counted 100
[2023-02-21 04:42] LABS: Platelet Estimate Normal; RBC Morphology Normal
--- NOTE | 2023-02-21 04:47 | PC.NURSE ---
PT back from RAD
--- NOTE | 2023-02-21 05:52 | PC.NURSE ---
Dr Bah s/w cory for admission. House notified for bed assignment
--- NOTE | 2023-02-21 06:03 | ECG_ITS ---
APPROVED REPORT Exam: Resting ECG HR:93 bpm ECG Measurements Heart Rate 93 AXES LA 189 P 57 QRSd 101 QRS -18 QT 374 T 67 QTc 424 Conclusion SINUS RHYTHM WITH OCCASIONAL SUPRAVENTRICULAR PREMATURE COMPLEXES LOW QRS VOLTAGE IN PRECORDIAL LEADS [QRS DEFLECTION < 1.0 mV IN CHEST LEADS] BORDERLINE ECG UNCONFIRMED REPORT Electronically signed by : aMnas Jalloh MD 02/24/2023 19:53:23
--- NOTE | 2023-02-21 06:25 | EXP.HP ---
History of Present Illness *Admission Date: 02/21/23 *Reason for visit:: Syncope with collapse *History of present illness: Ms. Mallory is a 62-year-old female with a past medical history of Asthma, APARNA, does not wear home CPAP, Tremors, Anxiety Disorder and chronic leg pain. She presented to [facility] by EMS due to syncope and collapse that occurred a few hours prior to presentation. She was seen in the ER, was at bedside who provided the history. He reported that the patient appeared normal on 02/20, he did state that she was having a productive cough, but denied any other complaints. He reports that early in the morning that she appeared to get out of bed and slumped over, he reports that she did not hit anything when going to the floor, he reports that he called 911 and it was approximately 15 seconds before she aroused. When EMS arrived to the home initial blood pressure was 55/30, but responded to 112/60 with arousal and she received IVF in route to the hospital. In the ER, the patient had a CT of the head that showed no acute intracranial abnormalities. Initial Troponin was elevated at 0.22 and repeat was elevated at 0.30. Initial EKG showed some changes in the anterior leads, repeat EKG showed sinus Tachycardia with no changes. CTA of the chest showed areas of airspace opacities in the dependent right upper and lower lobes and left lower lobes. It also showed diffuse narrowing the the trachea and major bronchi. ABG showed a metabolic acidosis with pH 7.32, HCO3 19.8 and a moderate hypoxemia with pO2 57.5, taken on FiO2 36%. CBC showed a WBC of 29.6 with Neutrophils of 27.8. In the ER, the patient received iv fluids and Rocephin iv. On exam, she is lethargic, but will arouse to touch and falls back asleep. The patient will be admitted with initial impression: Sepsis, Syncope with collapse, NSTEMI. She will be placed on broad spectrum antibiotics. Cardiology and Pulmonary will be consulted. Cultures will be drawn. She will be monitored on telemetry. The plan of care was discussed with the patient and at bedside. The verbalized understanding and agreement with the plan of care. [facility] Disclaimer: The information contained in this section may have been updated after the patient was seen, as this information can be updated by other users. Medical History (Updated 02/21/23 @ 13:31 by Jose M Gary MD) Asthma Asthma exacerbation Gastroesophageal reflux disease Hilar lymphadenopathy Hyperglycemia Hyperlipidemia Hypertensive disorder Mediastinal lymphadenopathy APARNA (obstructive sleep apnea) Osteoarthritis Pneumonia Surgical History H/O: H/O: hysterectomy History of arthroplasty of left shoulder History of cholecystectomy Family History Other Cancer 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 Smoking Status: Former smoker pack-years: 15 second hand exposure: Yes alcohol intake: never substance use type: denies use current occupational status: disabled Travel in the last 8 weeks: None household members: spouse housing: other marital status: current occupational exposures/hazards: No caffeine: Yes Review of Systems Review of Systems Review of systems:: unable to obtain Meds Home Medications and Allergies Home Medications Medication Instructions Recorded Confirmed Type aspirin 81 mg tablet,delayed 81 mg PO DAILY HEART HEALTH 01/07/18 02/21/23 History release (Adult Low Dose Aspirin) duloxetine 60 mg capsule,delayed 60 mg PO HS mood 30 days #30 caps 09/24/18 02/21/23 History release albuterol sulfate 90 mcg/actuation 2 puff inhalation Q4HP PRN 11/22/18 02/21/23 History aerosol inhaler Shortness Of Breath Or Wheezing omeprazole 40 mg capsule,delayed 40 mg PO DAILY Acid reflux
--- NOTE | 2023-02-21 06:29 | PC.NURSE ---
Halina, on-call hospitalist, to report critical tropoinin
--- NOTE | 2023-02-21 06:52 | PC.NURSE ---
Patient was accepted to hospitalist Joel. Patient was seen in room by TRAN Maldonado. Patient was then admitted to the floor as a stepdown patient per Joel, however, per warehouse distribution associate there are currently no rooms available for stepdown patients so patient will have to stay in the ED until a room becomes available.
[2023-02-21 07:00] LABS: Reflex Lactic Add Lactic Reflex
--- NOTE | 2023-02-21 07:32 | HMH.PHAINT1 ---
Pharmacy Intervention Comments: MEDICATION RECONCILIATION COMPLETED ON PATIENT USING EXTERNAL FILL HISTORY FROM PHARMACY, YRN REPORT, AND LIST FROM NEUROLOGY OFFICE VISIT. -NOHEMY RITTERD
--- NOTE | 2023-02-21 07:33 | PC.NURSE ---
cv lab staff at for echo
[2023-02-21 07:34] LABS: Chol/HDL Ratio 3.5 (1-3.5); Cholesterol 121 mg/dl (140-200); HDL Cholesterol 35 mg/dl (40-60); Triglycerides 89 mg/dl (30-150); VLDL Cholesterol 18 mg/dL (0-40)
--- NOTE | 2023-02-21 07:34 | PC.NURSE ---
attempted to call report to second floor, no answer from receiving nurse.
--- NOTE | 2023-02-21 07:38 | EXP.PHA.CONS ---
Pharmacy Consult Date: 02/21/23 Time: 07:38 Referring provider: DR. CARETR Reason for Consult:: VANCOMYCIN DOSING Allergies Allergy/AdvReac Type Severity Reaction Status Date / Time fexofenadine [FEXOFENADINE] Allergy Intermediate SICK Verified 01/14/23 10:57 amoxicillin [From AUGMENTIN] Allergy Unknown SOA Verified 01/14/23 10:57 clavulanic acid Allergy Unknown SOA Verified 01/14/23 10:57 [From AUGMENTIN] naproxen [NAPROXEN] Allergy Unknown SWELLING Verified 01/14/23 10:57 Home Medications Medication Instructions Recorded Confirmed Type aspirin 81 mg tablet,delayed 81 mg PO DAILY HEART HEALTH 01/07/18 02/21/23 History release (Adult Low Dose Aspirin) duloxetine 60 mg capsule,delayed 60 mg PO HS mood 30 days #30 caps 09/24/18 02/21/23 History release albuterol sulfate 90 mcg/actuation 2 puff inhalation Q4HP PRN 11/22/18 02/21/23 History aerosol inhaler Shortness Of Breath Or Wheezing omeprazole 40 mg capsule,delayed 40 mg PO DAILY Acid reflux 04/01/19 02/21/23 History release potassium chloride 20 mEq 20 meq PO TID Supplement 03/01/22 02/21/23 History tablet,extended release(part/cryst) atorvastatin 40 mg tablet 40 mg PO HS Cholesterol 07/22/22 02/21/23 History fluticasone fur. 200 mcg-umeclid 1 inh inhalation DAILY Breathing 07/22/22 02/21/23 History 62.5 mcg-vilant 25 mcg problems inhalat.powder (Trelegy Ellipta) montelukast 10 mg tablet 10 mg PO PM ALLERGIES 07/22/22 02/21/23 History calcium carbonate 500 mg-vitamin 1 tab PO DAILY Supplement 09/23/22 02/21/23 History D3 5 mcg (200 unit) tablet (Oyster Shell Calcium-Vitamin D3) famotidine 20 mg tablet 20 mg PO DAILY Acid reflux 12/10/22 02/21/23 History cetirizine 10 mg tablet 10 mg PO DAILY Allergy symptoms 12/19/22 02/21/23 History sumatriptan succinate 100 mg tablet 100 mg PO NEEDED PRN migraines 01/14/23 02/21/23 History topiramate 50 mg tablet 100 mg PO BID tremor, migraines 01/14/23 02/21/23 Rx #360 tabs cholecalciferol (vitamin D3) 50 50 mcg PO DAILY Supplement 02/21/23 02/21/23 History mcg (2,000 unit) tablet prochlorperazine maleate 10 mg 10 mg PO TIDP PRN Nausea And 02/21/23 02/21/23 History tablet Vomiting tramadol 50 mg tablet 50 mg PO TIDP PRN Pain 02/21/23 02/21/23 History New Prescriptions to Start Prescriptions: Height: 1.6 m Weight: 136.078 kg Laboratory Results:: Laboratory Results - last 24 hr 02/21/23 02:38: SARS-CoV-2 (PCR) Not detected, Influenza A Untype (PCR) Not detected, Influenza Type B (PCR) Not detected 02/21/23 02:46: Specimen Source Right radial, O2 % 4lpm n/c, ABG pH 7.32 L, ABG pCO2 39.2, ABG pO2 57.6 L, ABG HCO3 19.8 L, ABG Total CO2 21.0 L, ABG O2 Saturation 88 L, ABG Base Excess -6.3 L, Dioni Test Acceptable 02/21/23 02:52: WBC 29.6 H*, RBC 4.50, Hgb 13.1, Hct 42.5, MCV 94.3, MCH 29.1, MCHC 30.9 L, RDW 16.1, Plt Count 310, MPV 9.3, Neut % (Auto) 93.7 H, Lymph % (Auto) 1.9 L, [place] % (Auto) 3.8, Eos % (Auto) 0.1, Baso % (Auto) 0.6, Neut # (Auto) 27.8 H, Lymph # (Auto) 0.6 L, [place] # (Auto) 1.1 H, Eos # (Auto) 0.0, Baso # (Auto) 0.2, Total Counted 100, Neutrophils % (Manual) 95 H, Lymphocytes % (Manual) 5 L, Platelet Estimate Normal, RBC Morphology Normal 02/21/23 02:52: Sodium 137, Potassium 3.7, Chloride 106, Carbon Dioxide 23, Anion Gap 11.7, BUN 14, Creatinine 1.10 H, Estimated Creat Clear 43, Estimated GFR 50 L, Est GFR ( Amer) 61, Glucose 178 H, Calcium 8.4, Total Bilirubin 0.8, AST 118 H, ALT 81 H, Alkaline Phosphatase 172 H, Troponin I 0.22 H, NT-Pro-B Natriuret Pep 425 H, Total Protein 7.1, Albumin 3.9, Globulin 3.2, Albumin/Globulin Ratio 1.2 02/21/23 02:52: Lactate 4.0 H 02/21/23 02:52: Magnesium 1.7 02/21/23 02:52: Amylase 105, Lipase 49 02/21/23 03:00: Urine Color Yellow, Urine Appearance Clear, Urine pH 6.5, Ur Specific [place] 1.020, Urine Protein Negative, Urine Glucose (UA) Negative, Urine Ketones Negative, Urine Blood Trace-l, Urine Nitrate Negative, Urine Bilirubin Negative,
--- NOTE | 2023-02-21 07:43 | PC.NURSE ---
report called to yajaira ramon rn on second floor
[2023-02-21 07:45] LABS: Direct LDL Cholesterol 61.41 mg/dL (100-129)
[2023-02-21 07:52] LABS: Procalcitonin 35.6 ng/mL (0.0-2.0)
[2023-02-21 08:06] LABS: Lactic Acid Follow Up (RFLX 1) 1.5 mmol/L (0.7-2.1)
--- NOTE | 2023-02-21 08:13 | PC.NURSE ---
arrived by stretcher from ED
--- NOTE | 2023-02-21 09:42 | EXP.PULM.CON ---
History of Present Illness History of present illness: Ms. Mallory 62-year-old female history of asthma APARNA presented to the hospital status post syncope and fall, eventually admitted to the hospital for acute hypoxic respiratory failure and pneumonia and pulmonary was called for further evaluation [facility] Disclaimer: The information contained in this section may have been updated after the patient was seen, as this information can be updated by other users. Medical History (Updated 02/21/23 @ 13:31 by Jose M Gary MD) Asthma Asthma exacerbation Gastroesophageal reflux disease Hilar lymphadenopathy Hyperglycemia Hyperlipidemia Hypertensive disorder Mediastinal lymphadenopathy APARNA (obstructive sleep apnea) Osteoarthritis Pneumonia Surgical History H/O: H/O: hysterectomy History of arthroplasty of left shoulder History of cholecystectomy Family History Other Cancer 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 Smoking Status: Former smoker pack-years: 15 second hand exposure: Yes alcohol intake: never substance use type: denies use current occupational status: disabled Travel in the last 8 weeks: None household members: spouse housing: other marital status: current occupational exposures/hazards: No caffeine: Yes Review of Systems Constitutional Constitutional: Reports anorexia, Reports body ache(s) and Reports fatigue Eyes Eyes: Denies eye discharge, Denies dry eyes, Denies irritation and Denies itchy eyes ENT Ears, Nose, Mouth, and Throat: Denies epistaxis, Denies facial pain, Denies lip swelling and Denies throat swelling *Cardiovascular Cardiovascular: Reports dyspnea, Reports dyspnea on exertion and Reports orthopnea *Respiratory Respiratory: Reports chest congestion, Reports cough, Reports dyspnea, Reports dyspnea on exertion, Denies excessive phlegm production and Reports wheezing *Gastrointestinal Gastrointestinal: Denies abdominal pain, Denies belching and Denies cramping *Musculoskeletal Musculoskeletal: Reports back pain, Reports myalgias and Reports other (No small joint swelling or Pain) Psychiatric Psychiatric: Denies homicidal ideation and Denies suicidal ideation Endocrine Endocrine: Reports fatigue and Denies heat intolerance Hematologic/Lymphatic Hematologic/Lymphatic: Denies easy bleeding and Denies lymphadenopathy Allergic/Immunologic Allergic/Immunologic: Denies itchy eyes, Denies lip swelling, Denies throat swelling and Reports wheezing Pulmonology Exam Inpatient Vital signs and Labs for Last 24 Hours: Temp Pulse Resp BP Pulse Ox FiO2 97.9 F 115 H 22 144/108 H 95 50 02/21/23 08:42 02/21/23 08:42 02/21/23 08:42 02/21/23 08:42 02/21/23 08:42 02/21/23 03:36 Laboratory Results - last 24 hr 02/21/23 02:38: SARS-CoV-2 (PCR) Not detected, Influenza A Untype (PCR) Not detected, Influenza Type B (PCR) Not detected 02/21/23 02:46: Specimen Source Right radial, O2 % 4lpm n/c, ABG pH 7.32 L, ABG pCO2 39.2, ABG pO2 57.6 L, ABG HCO3 19.8 L, ABG Total CO2 21.0 L, ABG O2 Saturation 88 L, ABG Base Excess -6.3 L, Dioni Test Acceptable 02/21/23 02:52: WBC 29.6 H*, RBC 4.50, Hgb 13.1, Hct 42.5, MCV 94.3, MCH 29.1, MCHC 30.9 L, RDW 16.1, Plt Count 310, MPV 9.3, Neut % (Auto) 93.7 H, Lymph % (Auto) 1.9 L, [place] % (Auto) 3.8, Eos % (Auto) 0.1, Baso % (Auto) 0.6, Neut # (Auto) 27.8 H, Lymph # (Auto) 0.6 L, [place] # (Auto) 1.1 H, Eos # (Auto) 0.0, Baso # (Auto) 0.2, Total Counted 100, Neutrophils % (Manual) 95 H, Lymphocytes % (Manual) 5 L, Platelet Estimate Normal, RBC Morphology Normal 02/21/23 02:52: Sodium 137, Potassium 3.7, Chloride 106, Carbon Dioxide 23, Anion Gap 11.7, BUN 14, Creatinine 1.10 H, Estimated Creat Clear 43, Estimated GFR 50 L, Est GFR ( Amer) 61, Glucose 178 H, Calcium 8.4, Total Bilirubin 0.8, AST 118 H, ALT 81 H, A
--- NOTE | 2023-02-21 10:28 | FL_ITS ---
FINAL REPORT CLINICAL HISTORY: DYSPHAGIA FT: 1:11 FINDINGS: MODIFIED BARIUM SWALLOW HISTORY: Dysphagia. FINDINGS: Fluoroscopy was provided for the speech pathologist to evaluate the swallowing mechanism. The patient was given several different consistencies of barium while the swallow was visualized fluoroscopically. The report of the speech pathologist should be consulted prior to making dietary decisions. IMPRESSION: Modified barium swallow under fluoroscopic guidance. Please see speech pathologist's report for further details and dietary recommendations. Fluoroscopy time was 1 minute, 11 seconds 17 images were saved Reviewed, Interpreted and Dictated by Pérez Bui MD Transcribed by Ofelia Perez PA-C Authenticated and [facility]
--- NOTE | 2023-02-21 10:48 | HMH.SLDYSPHA ---
Speech & Language Evaluation Speech/Language Dysphagia Evaluation Start: 02/21/23 10:37 Freq: ONCE Status: Active Protocol: Document 02/21/23 10:37 KELIN (Rec: 02/21/23 10:48 [id number] Dysphagia Assess/Goals/Plan Assessment Date of Evaluation: 02/21/23 Evaluation Type Initial Certification Assessment/Problems CSE completed per MD order following c/o possible aspiration. Does Patient Qualify for Service Yes Qualify/Failure Comment Based on pt status, she would benefit from further evaluation via MBSS to rule out silent aspiration. Plan Pt/Guardian verbally ack understanding Yes of dx/prognosis/goals G -code Required No Education Instructions provided Discussed CSE results, aspiration risks/precautions, and MBSS recommendation with pt/pt's , nursing, and care management all of which expressed understanding. Pt/Caregiver able to recall information Able to recall/restate Reinforcement needed No Speech & Language HPI History Present Illness Description of Patient Problem Pt is a 62 yof who presents at [facility] via EMS following syncope with a collapse earlier this AM. When EMS arrived at household, pt BP read 55/30. Pt's at bedside in ER reported productive cough since yesterday. CTA of the chest showed areas of airspace opacities in the dependent right upper and lower lobes and left lower lobes. It also showed diffuse narrowing the the trachea and major bronchi. PMH includes: Asthma, Gastroesophageal reflux disease, Hyperglycemia, Hyperlipidemia, Hypertensive disorder, APARNA (obstructive sleep apnea), and Osteoarthritis. Pt/Caregiver Concerns Pt reported difficulty with specific food textures including meats and breads. Rehab Services Assessed Speech therapy Is this evaluation r/t stroke? No Language Primary Language Peruvian General Information
--- NOTE | 2023-02-21 11:17 | EXP.CARD.CON ---
History of Present Illness History of Present Illness Consult date: 02/21/23 Requesting physician: Monroe Higginbotham Chief complaint: syncope and collapse History of present illness: Ms. Mallory is a 62-year-old female with a past medical history of Asthma, APARNA, does not wear home CPAP, Tremors, Anxiety Disorder and chronic leg pain. She presented to [facility] by EMS due to syncope and collapse that occurred a few hours prior to presentation.? She was seen in the ER, was at bedside who provided the history.? He reported that the patient appeared normal on 02/20, he did state that she was having a productive cough, but denied any other complaints.? He reports that early in the morning that she appeared to get out of bed and slumped over, he reports that she did not hit anything when going to the floor, he reports that he called 911 and it was approximately 15 seconds before she aroused.? When EMS arrived to the home initial blood pressure was 55/30, but responded to 112/60 with arousal and she received IVF in route to the hospital.? In the ER, the patient had a CT of the head that showed no acute intracranial abnormalities.? Initial Troponin was elevated at 0.22 and repeat was elevated at 0.30.? Initial EKG showed some changes in the anterior leads, repeat EKG showed sinus Tachycardia with no changes.? CTA of the chest showed areas of airspace opacities in the dependent right upper and lower lobes and left lower lobes.? It also showed diffuse narrowing the the trachea and major bronchi.? ABG showed a metabolic acidosis with pH 7.32, HCO3 19.8 and a moderate hypoxemia with pO2 57.5, taken on FiO2 36%.? CBC showed a WBC of 29.6 with Neutrophils of 27.8.? [facility] Disclaimer: The information contained in this section may have been updated after the patient was seen, as this information can be updated by other users. Medical History Asthma Gastroesophageal reflux disease Hyperglycemia Hyperlipidemia Hypertensive disorder APARNA (obstructive sleep apnea) Osteoarthritis Surgical History H/O: H/O: hysterectomy History of arthroplasty of left shoulder History of cholecystectomy Family History Other Cancer 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 Smoking Status: Former smoker pack-years: 15 second hand exposure: Yes alcohol intake: never substance use type: denies use current occupational status: disabled Travel in the last 8 weeks: None household members: spouse housing: other marital status: current occupational exposures/hazards: No caffeine: Yes Review of Systems Review of Systems Review of systems:: pertinent systems reviewed and negative unless documented below *Cardiovascular Cardiovascular: Reports dyspnea *Respiratory Respiratory: Reports cough and Reports dyspnea Exam Data for Last 24 hours Vital signs and Labs for Last 24 Hours: Temp Pulse Resp BP Pulse Ox FiO2 97.9 F 78 22 144/108 H 95 50 02/21/23 08:42 02/21/23 09:42 02/21/23 08:42 02/21/23 08:42 02/21/23 08:42 02/21/23 03:36 Laboratory Results - last 24 hr 02/21/23 02:38: SARS-CoV-2 (PCR) Not detected, Influenza A Untype (PCR) Not detected, Influenza Type B (PCR) Not detected 02/21/23 02:46: Specimen Source Right radial, O2 % 4lpm n/c, ABG pH 7.32 L, ABG pCO2 39.2, ABG pO2 57.6 L, ABG HCO3 19.8 L, ABG Total CO2 21.0 L, ABG O2 Saturation 88 L, ABG Base Excess -6.3 L, Dioni Test Acceptable 02/21/23 02:52: WBC 29.6 H*, RBC 4.50, Hgb 13.1, Hct 42.5, MCV 94.3, MCH 29.1, MCHC 30.9 L, RDW 16.1, Plt Count 310, MPV 9.3, Neut % (Auto) 93.7 H, Lymph % (Auto) 1.9 L, [place] % (Auto) 3.8, Eos % (Auto) 0.1, Baso % (Auto) 0.6, Neut # (Auto) 27.8 H, Lymph # (Auto) 0.6 L, [place] # (Auto) 1.1 H, Eos # (Auto) 0.0, Baso # (Auto) 0.2, T
[2023-02-21 12:05] LABS: Troponin I 0.16 ng/ml (0.00-0.034)
--- NOTE | 2023-02-21 14:13 | PC.NURSE ---
PT OFF FLOOR FOR BARIUM SWALLOW. WILL GIVE 1 OCLOCK MEDS WHEN SHE RETURNS.
--- NOTE | 2023-02-21 14:59 | HMH.SLMBS2 ---
Speech & Language Evaluation Speech/Language Mod Barium Swallow Start: 02/21/23 10:28 Freq: ONCE Status: Complete Protocol: Document 02/21/23 14:38 KELIN (Rec: 02/21/23 14:59 KIRANATHANYOVANA [id number]) General Information General Current Food Consistancy NPO Dentition Edentulous Oxygen Status Nasal Cannula Patient Orientation Person,Place,Time Ability to Follow Directions Good Communication Ability No Impairment MBS Recommendations Diet Dietary Recommendations Mechanical Soft,Ground Meats, Thin Liquids Comment with puree wash Treatment/Strategies Treatment Recommendation Compens. Strategy Educat. Strategy/Precaution Recommend Sitting Upright (90 deg),Chin Tuck,Double Swallow,Small Bites and Sips,Alternate Liquids/Solids Mod Barium Swallow Impressions Summary and Impressions Oral Phase Impression Moderate Impairment Oral Phase Summary Pt is noted to withhold material in her mouth and demonstrated prolonged mastication of solids with premature spillage. Pt was unable to clear all bolus material on initial swallow. Pharyngeal Phase Impression Mild Impairment Pharyngeal Phase Summary Pt was noted to have trace amount of residue in valleculae, she required cueing to complete a second swallow to clear residue. Speech/Language MBS Assessment/Goals/Plan Assessment Date of Evaluation: 02/21/23 Evaluation Type Initial Certification Assessment/Problems MBSS completed per MD order to rule out silent aspiration. Does Patient Qualify for Service No Qualify/Failure Comment Pt is demonstrating mastication and swallowing skills WFL and skilled speech therapy services are not warranted at this time. Recommendations PHYSICIAN CERTIFICATION: The specified therapy services are required, authorized, and reviewed every 30 days. Diet Recommendations Mechanical Soft Liquid Type Recommendations Normal/Thin SL Swallow Guidelines Standard Aspiration Prec.,Eat at slow rate Dysphagia Swallow Precautions/Strategies Sitting Upright (90 deg),Chin Tuck,Double Swallow,Small Bites and Sips,Alternate Liquid
--- NOTE | 2023-02-21 17:40 | PC.NURSE ---
NEW ADMIT THIS HSIFT, BARIUM SWALLOW THIS SHIFT R/T PNEUMONIA DX. NEW DIETARY RESTRICTIONS IN PLACE. 2LNC FOR O2 SUPPORT. PT DESATS TO 87% ON ROOM AIR. TANNER IN PLACE.
[2023-02-22] VITALS (8 sets, daily range): BP systolic 128–152; BP diastolic 64–97; PULSE 68–90; RESP 18–20; TEMP 36.6–37.4; O2SAT 94–98; BMI 45.3
--- NOTE | 2023-02-22 01:15 | PC.NURSE ---
contacted SISSY Maldonado about pt headache, Joel stated she would put an order in
[2023-02-22 07:29] LABS: Basophils # 0.1 K/mm3 (0-0.2); Basophils % 0.4 % (0.1-2.0); Eosinophils # 0.1 K/mm3 (0.0-0.4); Eosinophils % 0.2 % (0.1-12.0); Hematocrit 39.8 % (37.0-47.0); Hemoglobin 12.3 g/dL (12.2-16.2); Lymphocytes # 1.3 K/mm3 (0.7-4.5); Lymphocytes % 5.1 % (10-50); Mean Corpuscular HGB Conc 30.9 g/dL (31.8-35.4); Mean Corpuscular Hemoglobin 28.9 pg (27.0-31.2); Mean Corpuscular Volume 93.7 fl (81-99); Mean Platelet Volume 9.4 fl (7.4-10.4); Monocytes # 0.9 K/mm3 (0.1-1.0); Monocytes % 3.5 % (1.7-9.3); Neutrophils # 22.6 K/mm3 (1.8-7.8); Neutrophils % 90.8 % (37.0-80.0); Platelet Count 221 K/mm3 (142-424); Red Blood Count 4.25 M/mm3 (4.20-5.40); Red Cell Distribution Width 16.4 % (11.5-17.5); White Blood Count 24.9 K/mm3 (4.8-10.8)
[2023-02-22 07:39] LABS: MANUAL DIFFERENTIAL MANUAL DIFFERENTIAL (MANUAL DIFF)
[2023-02-22 08:47] LABS: Lymphocytes % 5 % (10-50); Monocytes % 3 % (2-9); Neutrophils % 92 % (42-76); Total Cells Counted 100
[2023-02-22 08:48] LABS: Hypochromasia 1+; Macrocytosis 1+; Platelet Estimate Normal
[2023-02-22 08:59] LABS: Chloride 106 mmol/L (98-107); Potassium 3.7 mmoL/L (3.5-5.1); Sodium 135 mmol/L (136-145)
[2023-02-22 09:01] LABS: Alanine Aminotransferase 71 U/L (12-78); Anion Gap 10.7 mEq/L (5-15); Aspartate Amino Transferase 140 U/L (14-36); Blood Urea Nitrogen 11 mg/dl (7-17); Carbon Dioxide 22 mmol/L (22.0-30.0); Creatinine Clearance Estimated 50 mL/min (50-200); Estimated Glomerular Filt Rate 125 ml/min (>60); GFR (African American) 151 ML/MIN (>60)
[2023-02-22 09:02] LABS: Albumin Level 2.9 g/dl (3.5-5.0); Alkaline Phosphatase 165 U/L (38-126); Bilirubin,Total 0.8 mg/dl (0.2-1.3); Calcium 7.6 mg/dl (8.4-10.2); Globulin 2.8 g/dL (1.3-3.2); Glucose 83 mg/dl (74-100); Magnesium 1.8 mg/dl (1.6-2.3); Phosphorous 2.7 mg/dl (2.5-4.5); Total Protein,Serum 5.7 g/dl (6.3-8.2)
--- NOTE | 2023-02-22 10:13 | PC.NURSE ---
courtesy tech note; Rounded on pt, pt denied the need to use the bedpan and denied the need for a drink at this time. No further requests at this time. call light within reach. LEESA Reyes
[2023-02-22 11:43] LABS: Troponin I 0.06 ng/ml (0.00-0.034)
--- NOTE | 2023-02-22 14:46 | EXP.ACUTE.PN ---
Subjective *Date: 02/22/23 *Time: 16:16 Interval history: On 2 L nasal cannula this morning. Tolerating p.o. intake. Still feels short of breath. Remains afebrile and hemodynamically stable. No nausea or vomiting. Patient seems confused when discussing her heart failure. Last saw cardiology a year ago per chart review. No echo is available on previous charting. Medical Exam Vital signs and Labs for Last 24 Hours: Vital Signs Temp Pulse Pulse Resp BP Pulse Ox 02/22/23 14:42 77 02/22/23 08:00 85 02/22/23 11:41 99.3 F 78 19 139/97 H 96 02/22/23 08:00 96 02/22/23 07:55 99.0 F 82 19 132/86 96 02/22/23 00:00 90 02/21/23 20:00 87 02/22/23 04:00 80 02/22/23 04:00 98.1 F 68 18 148/64 H 94 L 02/22/23 00:00 97.9 F 89 18 150/76 H 94 L 02/21/23 20:00 18 91 L 02/21/23 20:00 97.8 F 90 18 152/90 H 91 L 02/21/23 16:00 98.1 F 93 H 18 139/88 92 L Intake and Output 02/21/23 02/22/23 02/22/23 23:59 07:59 15:59 Intake Total 780 / 780 480 / 720 240 / 720 Output Total 900 / 900 1000 / 2400 1400 / 2400 Balance -120 / -120 -520 / -1680 -1160 / -1680 Intake: Intake, Oral Amount 480 / 480 480 / 720 240 / 720 Infusion Intake 300 / 300 Azithromycin 500 mg In 0.9 % 250 / 250 Sodium Chloride 250 ml @ 250 mls/hr IV DAILY JAMES Rx#: [id number] Ceftriaxone 1 gm 1 gm In 0.9 % 50 / 50 Sodium Chloride 50 ml @ 100 mls /hr IV Q24H JAEMS Rx#:[id number] Output: Output, Urine Amount 900 / 900 1000 / 2400 1400 / 2400 Other: Number of Unmeasured Voids 1 0 Weight 123.468 kg Patient Weight 02/22/23 23:59 Weight 123.468 kg Laboratory Results - last 24 hr 02/22/23 07:13: WBC 24.9 H*, RBC 4.25, Hgb 12.3, Hct 39.8, MCV 93.7, MCH 28.9, MCHC 30.9 L, RDW 16.4, Plt Count 221 D, MPV 9.4, Neut % (Auto) 90.8 H, Lymph % (Auto) 5.1 L, [place] % (Auto) 3.5, Eos % (Auto) 0.2, Baso % (Auto) 0.4, Neut # (Auto) 22.6 H, Lymph # (Auto) 1.3, [place] # (Auto) 0.9, Eos # (Auto) 0.1, Baso # (Auto) 0.1, Total Counted 100, Neutrophils % (Manual) 92 H, Lymphocytes % (Manual) 5 L, Monocytes % (Manual) 3, Platelet Estimate Normal, Hypochromasia 1+, Macrocytosis 1+ 02/22/23 07:13: Sodium 135 L, Potassium 3.7, Chloride 106, Carbon Dioxide 22, Anion Gap 10.7, BUN 11, Creatinine 0.50 L D, Estimated Creat Clear 50, Estimated GFR 125, Est GFR ( Amer) 151 D, Glucose 83, Calcium 7.6 L, Phosphorus 2.7, Magnesium 1.8, Total Bilirubin 0.8, AST 140 H, ALT 71, Alkaline Phosphatase 165 H, Total Protein 5.7 L, Albumin 2.9 L D, Globulin 2.8, Albumin/Globulin Ratio 1.0 L 02/22/23 07:36: Troponin I 0.06 H I & O for Labs for Last 24 Hours: Intake & Output 02/19/23 02/20/23 02/21/23 02/22/23 23:59 23:59 23:59 23:59 Intake Total 780 / 780 720 / 720 Output Total 900 / 900 2400 / 2400 Balance -120 / -120 -1680 / -1680 Weight 126.155 kg 123.468 kg Constitutional: Present no acute distress, morbidly obese and chronically ill appearing Head: Present atraumatic and normocephalic ENT: Present normal exam Neck: Present normal inspection Respiratory: Present crackles, distant breath sounds and able to speak in complete sentences; Absent rhonchi or wheezes Cardiac: Present Reg Rate and Rhythm GI: Present soft and normal bowel sounds; Absent distention or tenderness Extremities: Present normal inspection, full ROM and edema Skin: Present intact; Absent erythema Neuro: Present Grossly Intact, alert, awake, oriented x 3 and moves all extremities Assessment and Plan *Assessment and plan (1) Sepsis: Status: Acute Category: Medical Code(s): A41.9 - Sepsis, unspecified organism (2) Syncope and collapse: Status: Acute Category: Medical Code(s): R55 - Syncope and collapse (3) NSTEMI (non-ST elevated myocardial infarction): Status: Acute Category: Medical Code(s): I21.4 - Non-ST elevation
[2023-02-23] VITALS (10 sets, daily range): BP systolic 143–157; BP diastolic 79–97; PULSE 80–100; RESP 19–22; TEMP 36.7–37.2; O2SAT 95–98; BMI 44.7
--- NOTE | 2023-02-23 06:42 | PC.NURSE ---
Pt continues on 2 L nc with sats >90%. AOx4. Pt c/o feeling constipated at beginning of shift. Hernan Ngo notified, Docusate sodium and Miralax administered to pt. Pt has had 1 small BM since, stool was type 1 on [place] stool scale. Pt also c/o of a HOLCOMB and was administered Tylenol, pt stated favorable results.
[2023-02-23 07:45] LABS: Basophils # 0.1 K/mm3 (0-0.2); Basophils % 0.5 % (0.1-2.0); Eosinophils # 0.1 K/mm3 (0.0-0.4); Eosinophils % 0.3 % (0.1-12.0); Hematocrit 37.3 % (37.0-47.0); Hemoglobin 11.5 g/dL (12.2-16.2); Lymphocytes # 1.3 K/mm3 (0.7-4.5); Lymphocytes % 7.7 % (10-50); Mean Corpuscular HGB Conc 30.9 g/dL (31.8-35.4); Mean Corpuscular Hemoglobin 28.7 pg (27.0-31.2); Mean Corpuscular Volume 92.9 fl (81-99); Mean Platelet Volume 9.4 fl (7.4-10.4); Monocytes # 0.4 K/mm3 (0.1-1.0); Monocytes % 2.3 % (1.7-9.3); Neutrophils # 15.3 K/mm3 (1.8-7.8); Neutrophils % 89.2 % (37.0-80.0); Platelet Count 280 K/mm3 (142-424); Red Blood Count 4.02 M/mm3 (4.20-5.40); Red Cell Distribution Width 16.3 % (11.5-17.5); White Blood Count 17.2 K/mm3 (4.8-10.8)
[2023-02-23 07:47] LABS: Chloride 109 mmol/L (98-107); Potassium 3.9 mmoL/L (3.5-5.1); Sodium 137 mmol/L (136-145)
[2023-02-23 07:50] LABS: Alanine Aminotransferase 57 U/L (12-78); Albumin Level 3.2 g/dl (3.5-5.0); Alkaline Phosphatase 152 U/L (38-126); Anion Gap 7.9 mEq/L (5-15); Aspartate Amino Transferase 95 U/L (14-36); Bilirubin,Total 0.7 mg/dl (0.2-1.3); Blood Urea Nitrogen 8 mg/dl (7-17); Carbon Dioxide 24 mmol/L (22.0-30.0); Creatinine Clearance Estimated 50 mL/min (50-200); Estimated Glomerular Filt Rate 101 ml/min (>60); GFR (African American) 122 ML/MIN (>60); Globulin 3.2 g/dL (1.3-3.2); Phosphorous 2.1 mg/dl (2.5-4.5); Total Protein,Serum 6.4 g/dl (6.3-8.2)
[2023-02-23 07:51] LABS: Calcium 7.8 mg/dl (8.4-10.2); Glucose 120 mg/dl (74-100); MANUAL DIFFERENTIAL MANUAL DIFFERENTIAL (MANUAL DIFF)
[2023-02-23 09:20] LABS: Lymphocytes % 6 % (10-50); Monocytes % 3 % (2-9); Neutrophils % 91 % (42-76); Platelet Estimate Normal; RBC Morphology Normal; Total Cells Counted 100
--- NOTE | 2023-02-23 11:38 | EXP.ACUTE.PN ---
Subjective *Date: 02/23/23 *Time: 11:38 Interval history: On 2 L nasal cannula this morning. Tolerating p.o. intake. Still feels short of breath. Remains afebrile and hemodynamically stable. No nausea or vomiting. Denies chest pain. Medical Exam Vital signs and Labs for Last 24 Hours: Vital Signs Temp Pulse Pulse Resp BP Pulse Ox FiO2 02/23/23 08:01 100 H 02/23/23 07:32 98.7 F 89 19 153/94 H 97 02/23/23 00:00 80 02/22/23 20:00 70 02/23/23 06:25 98 02/23/23 04:00 80 02/23/23 04:00 98.7 F 86 20 157/97 H 97 02/23/23 00:00 98.9 F 82 20 153/97 H 97 02/22/23 20:00 97 02/22/23 20:00 98.9 F 85 20 152/71 H 97 2 02/22/23 16:00 87 02/22/23 16:00 98.5 F 79 19 128/78 98 02/22/23 14:42 77 02/22/23 11:41 99.3 F 78 19 139/97 H 96 Intake and Output 02/22/23 02/23/23 02/23/23 23:59 07:59 15:59 Intake Total 240 / 960 240 / 240 Output Total 1400 / 2600 1200 / 2600 Balance 240 / -2240 -1160 / -2360 -1200 / -2360 Intake: Intake, Oral Amount 240 / 960 240 / 240 Output: Output, Urine Amount 1400 / 2600 1200 / 2600 Other: Number of Unmeasured Voids 0 1 Number of Bowel Movements 1 1 Weight 121.761 kg Patient Weight 02/23/23 23:59 Weight 121.761 kg Laboratory Results - last 24 hr 02/22/23 07:36: Troponin I 0.06 H 02/23/23 07:15: WBC 17.2 H D, RBC 4.02 L, Hgb 11.5 L, Hct 37.3, MCV 92.9, MCH 28.7, MCHC 30.9 L, RDW 16.3, Plt Count 280 D, MPV 9.4, Neut % (Auto) 89.2 H, Lymph % (Auto) 7.7 L, [place] % (Auto) 2.3, Eos % (Auto) 0.3, Baso % (Auto) 0.5, Neut # (Auto) 15.3 H, Lymph # (Auto) 1.3, [place] # (Auto) 0.4, Eos # (Auto) 0.1, Baso # (Auto) 0.1, Total Counted 100, Neutrophils % (Manual) 91 H, Lymphocytes % (Manual) 6 L, Monocytes % (Manual) 3, Platelet Estimate Normal, RBC Morphology Normal 02/23/23 07:15: Sodium 137, Potassium 3.9, Chloride 109 H, Carbon Dioxide 24, Anion Gap 7.9, BUN 8 D, Creatinine 0.60, Estimated Creat Clear 50, Estimated GFR 101, Est GFR ( Amer) 122, Glucose 120 H, Calcium 7.8 L, Phosphorus 2.1 L, Total Bilirubin 0.7, AST 95 H D, ALT 57, Alkaline Phosphatase 152 H, Total Protein 6.4, Albumin 3.2 L D, Globulin 3.2, Albumin/Globulin Ratio 1.0 L I & O for Labs for Last 24 Hours: Intake & Output 02/20/23 02/21/23 02/22/23 02/23/23 23:59 23:59 23:59 23:59 Intake Total 780 / 780 960 / 960 240 / 240 Output Total 900 / 900 2400 / 3200 2600 / 2600 Balance -120 / -120 -1440 / -2240 -2360 / -2360 Weight 126.155 kg 123.468 kg 121.761 kg Microbiology Reports for the Last 24 Hours: Microbiology 02/21/23 02:52 Blood Blood Culture - Preliminary NO GROWTH AFTER 48 HOURS 02/21/23 02:52 Blood Blood Culture - Preliminary NO GROWTH AFTER 48 HOURS Constitutional: Present no acute distress, morbidly obese and chronically ill appearing Head: Present atraumatic and normocephalic ENT: Present normal exam Neck: Present normal inspection Respiratory: Present crackles (bases), distant breath sounds and able to speak in complete sentences; Absent rhonchi or wheezes Cardiac: Present Reg Rate and Rhythm GI: Present soft and normal bowel sounds; Absent distention or tenderness Extremities: Present normal inspection, full ROM and edema Skin: Present intact; Absent erythema Neuro: Present Grossly Intact, alert, awake, oriented x 3 and moves all extremities Assessment and Plan *Assessment and plan (1) Pneumonia: Status: Acute Category: Medical Code(s): J18.9 - Pneumonia, unspecified organism (2) NSTEMI (non-ST elevated myocardial infarction): Status: Acute Category: Medical Code(s): I21.4 - Non-ST elevation (NSTEMI) myocardial infarction (3) Sepsis: Status: Acute Category: Medical Code(s): A41.9 - Sepsis, unspecified organism (4) Syncope and collapse: Status:
--- NOTE | 2023-02-23 18:52 | PC.NURSE ---
CONTINUES ON 2LNC, TANNER REMOVED THIS SHIFT. C/O HEAD ONCE AND WAS TREATED WITH PRN IMITREX WITH GOOD EFFECTIVENESS.
[2023-02-24] VITALS (26 sets, daily range): BP systolic 113–153; BP diastolic 48–98; PULSE 73–100; RESP 16–22; TEMP 36.4–37.1; O2SAT 92–97; BMI 44.7
--- NOTE | 2023-02-24 | IR_ITS ---
APPROVED REPORT Patient Location: Inpatient Hygiene Teacher: RADHA Martin RT (R) PROCEDURES Left heart catheterization Left ventriculogram Selective coronary angiogram INDICATION Acute non-ST elevation myocardial infarction, Highly abnormal interval change in EKG Informed consent was obtained prior to the procedure. COMPLICATIONS None Estimated Blood Loss: Less than 10 ml TECHNIQUE One percent lidocaine used to anesthetize the right anterior aspect of the wrist. The right radial artery was accessed via the Seldinger technique. A 6 [place] sheath was placed in the right radial artery. 150 mg magnesium sulfate, 800 mcg of nitroglycerin, 1mg Lidocaine and 5000 U Heparin were given through the arterial sheath. The papa catheter was also used to perform left heart catheterization, left ventriculogram and selective coronary angiogram. At the end of the procedure the sheath was removed good hemostasis was achieved using Traclet band, patient was transferred to the postop holding area in stable condition. 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 Supportive care 2. LifeVest 3. Entresto carvedilol 4. Avoidance of Imitrex like drugs Electronically signed by : Pritesh Higginbotham MD 02/24/2023 10:53:11
--- NOTE | 2023-02-24 05:33 | PC.NURSE ---
NO ACUTE CHANGES SINCE PREVIOUS ASSESSMENT. PT REMAINS ON 1.5L NASAL CANNULA AND IS TOLERATING WELL. PT HAS C/O NAUSEA X1 AND HEADACHE X3 THIS SHIFT. PT WAS EDUCATED THAT SHE HAD ALREADY HAD HER MIGRAINE MEDICATION AND WAS GIVEN TYLENOL. NO FURTHER COMPLAINTS AT THIS TIME. VSS.
[2023-02-24 06:46] LABS: Chloride 108 mmol/L (98-107); Potassium 4.2 mmoL/L (3.5-5.1); Sodium 139 mmol/L (136-145)
[2023-02-24 06:48] LABS: Blood Urea Nitrogen 7 mg/dl (7-17); Creatinine Clearance Estimated 50 mL/min (50-200); Estimated Glomerular Filt Rate 85 ml/min (>60); GFR (African American) 102 ML/MIN (>60)
[2023-02-24 06:49] LABS: Alanine Aminotransferase 51 U/L (12-78); Albumin Level 3.4 g/dl (3.5-5.0); Alkaline Phosphatase 149 U/L (38-126); Anion Gap 10.2 mEq/L (5-15); Aspartate Amino Transferase 84 U/L (14-36); Bilirubin,Total 0.5 mg/dl (0.2-1.3); Calcium 8.4 mg/dl (8.4-10.2); Carbon Dioxide 25 mmol/L (22.0-30.0); Globulin 3.4 g/dL (1.3-3.2); Glucose 130 mg/dl (74-100); Phosphorous 3.8 mg/dl (2.5-4.5); Total Protein,Serum 6.8 g/dl (6.3-8.2)
[2023-02-24 07:02] LABS: Basophils # 0.2 K/mm3 (0-0.2); Basophils % 1.7 % (0.1-2.0); Eosinophils # 0.1 K/mm3 (0.0-0.4); Eosinophils % 0.7 % (0.1-12.0); Hematocrit 40.5 % (37.0-47.0); Lymphocytes # 1.6 K/mm3 (0.7-4.5); Lymphocytes % 12.4 % (10-50); Mean Corpuscular HGB Conc 31.7 g/dL (31.8-35.4); Mean Corpuscular Hemoglobin 29.6 pg (27.0-31.2); Mean Corpuscular Volume 93.5 fl (81-99); Mean Platelet Volume 8.7 fl (7.4-10.4); Monocytes # 0.5 K/mm3 (0.1-1.0); Monocytes % 3.7 % (1.7-9.3); Neutrophils # 10.6 K/mm3 (1.8-7.8); Neutrophils % 81.6 % (37.0-80.0); Platelet Count 278 K/mm3 (142-424); Red Blood Count 4.33 M/mm3 (4.20-5.40); Red Cell Distribution Width 15.9 % (11.5-17.5); White Blood Count 12.9 K/mm3 (4.8-10.8)
[2023-02-24 07:39] LABS: Hemoglobin 12.8 g/dL (12.2-16.2)
--- NOTE | 2023-02-24 08:59 | P.PN_ITS ---
Subjective *Date: 02/24/23 *Time: 08:59 Medical Exam Vital signs and Labs for Last 24 Hours: Vital Signs Temp Pulse Pulse Resp BP Pulse Ox 02/24/23 08:00 98.4 F 02/24/23 04:00 98.5 F 89 22 139/90 95 02/24/23 04:00 80 02/24/23 00:00 90 02/23/23 23:56 98.5 F 89 20 143/79 H 95 02/23/23 20:00 80 02/23/23 20:00 95 02/23/23 19:58 98.1 F 89 22 152/88 H 95 02/23/23 16:00 85 02/23/23 12:00 89 02/23/23 16:00 98.1 F 89 19 153/96 H 95 Intake and Output 02/23/23 02/24/23 02/24/23 23:59 07:59 15:59 Intake Total 240 / 960 240 / 440 200 / 440 Output Total 1050 / 4650 100 / 100 Balance -810 / -3690 140 / 340 200 / 340 Intake: Intake, Oral Amount 240 / 960 240 / 440 200 / 440 Output: Output, Urine Amount 1050 / 4650 100 / 100 Other: Number of Unmeasured Voids 0 1 Number of Bowel Movements 1 Weight 121.761 kg 121.761 kg Patient Weight 02/24/23 23:59 Weight 121.761 kg Laboratory Results - last 24 hr 02/23/23 07:15: Total Counted 100, Neutrophils % (Manual) 91 H, Lymphocytes % (Manual) 6 L, Monocytes % (Manual) 3, Platelet Estimate Normal, RBC Morphology Normal 02/24/23 06:00: WBC 12.9 H, RBC 4.33, Hgb 12.8 D, Hct 40.5, MCV 93.5, MCH 29.6, MCHC 31.7 L, RDW 15.9, Plt Count 278, MPV 8.7, Neut % (Auto) 81.6 H, Lymph % (Auto) 12.4, [place] % (Auto) 3.7, Eos % (Auto) 0.7, Baso % (Auto) 1.7, Neut # (Auto) 10.6 H, Lymph # (Auto) 1.6, [place] # (Auto) 0.5, Eos # (Auto) 0.1, Baso # (Auto) 0.2 02/24/23 06:00: Sodium 139, Potassium 4.2, Chloride 108 H, Carbon Dioxide 25, Anion Gap 10.2, BUN 7, Creatinine 0.70, Estimated Creat Clear 50, Estimated GFR 85, Est GFR ( Amer) 102, Glucose 130 H, Calcium 8.4, Phosphorus 3.8 D, Total Bilirubin 0.5, AST 84 H, ALT 51, Alkaline Phosphatase 149 H, Total Protein 6.8, Albumin 3.4 L, Globulin 3.4 H, Albumin/Globulin Ratio 1.0 L I & O for Labs for Last 24 Hours: Intake & Output 02/21/23 02/22/23 02/23/23 02/24/23 23:59 23:59 23:59 23:59 Intake Total 780 / 780 960 / 960 960 / 960 440 / 440 Output Total 900 / 900 2400 / 3200 4650 / 4650 100 / 100 Balance -120 / -120 -1440 / -2240 -3690 / -3690 340 / 340 Weight 126.155 kg 123.468 kg 121.761 kg 121.761 kg The patient's infection will respond to the chosen ABx?: Yes (BLOOD CULTURE NO GROWTH, SPUTUM UNCOLLECTED.) Is the patient receiving the right drug, dose, and route?: Yes Could a more targeted ABx be ordered?: No
--- NOTE | 2023-02-24 09:13 | ECG_ITS ---
APPROVED REPORT Exam: Resting ECG HR:90 bpm ECG Measurements Heart Rate 90 AXES AL 161 P 46 QRSd 95 QRS -31 QT 392 T 202 QTc 440 Conclusion SINUS RHYTHM LEFT AXIS DEVIATION [QRS AXIS < -30] POSSIBLE ANTERIOR MYOCARDIAL INFARCTION , OF INDETERMINATE AGE [30 ms Q WAVE IN V3/V4, OR R < 0.2 mV IN V4] MODERATE T-WAVE ABNORMALITY, CONSIDER LATERAL ISCHEMIA [-0.1+ mV T-WAVE IN I/aVL/V5/V6] MODERATE T-WAVE ABNORMALITY, CONSIDER INFERIOR ISCHEMIA [-0.1+ mV T-WAVE IN II/aVF] ABNORMAL ECG UNCONFIRMED REPORT Electronically signed by : Manas Jalloh MD 02/24/2023 19:46:01
--- NOTE | 2023-02-24 09:18 | HMH.OTEV ---
OT Inpatient Evaluation Rehab OT IP Evaluation Start: 02/23/23 08:18 Freq: ONCE Status: Active Protocol: Document 02/24/23 09:12 [facility] (Rec: 02/24/23 09:18 [facility] [id number]) Rehab OT IP Assessment Subjective History Pt oriented x 3 on arrival. Pt agreeable to engage in therapy evalluation. Pt was admitted on 02/21/23 due to septic shock, pneumonia, and hypoxia. Prior to being in the hosptial, pt lived at home with her . Pt claims she was independent with dressing and feeding. She did require assistance with getting in and out of bathtub while showering. Pt reports her completed most of the IADLs such as cooking. They also have a cleaning lady come in and clean weekly. She did use a walker during ambulation. She does not use oxygen at home. Pt has the following past medical history: Asthma Asthma exacerbation Gastroesophageal reflux disease Hilar lymphadenopathy Hyperglycemia Hyperlipidemia Hypertensive disorder Mediastinal lymphadenopathy APARNA (obstructive sleep apnea) Osteoarthritis Pneumonia Subjective I need a little help at home. Objective Patient Orientation Person,Place,Birthday Upper Extremity Gross ROM WFL Bed Mobility bed mobility-scooting,bed mobility - supine/sit,bed mobility - rolling Assist Level Minimal x 1 (25% assist) Transfer Training Sit/Stand Transfer Assist Level Minimal x 1 (25% assist) Rehab OT IP prob,goals,plan Problems Date of Evaluation: 02/24/23 OT IP Problems Bed Mobility,Transfers,Balance ,Self care,Safety Rehab Potential Rehab Potential Good Equipment Needs Assistiv
--- NOTE | 2023-02-24 09:28 | PC.NURSE ---
Dr. Hahn at bedside. Patient states she feels chest discomfort. Order received for EKG and troponin
--- NOTE | 2023-02-24 09:44 | EXP.PULM.PN ---
Subjective *Date: 02/24/23 *Time: 11:47 Interval history: Patient over the weekend noted to have chest chest, troponins, cardiology consulted. She admits worsening respiratory distress. Pulmonology Exam Inpatient Vital signs and Labs for Last 24 Hours: Temp Pulse Resp BP Pulse Ox FiO2 98.4 F 94 H 18 152/83 H 96 2 02/24/23 08:00 02/24/23 09:30 02/24/23 08:00 02/24/23 08:00 02/24/23 08:00 02/22/23 20:00 Laboratory Results - last 24 hr 02/24/23 06:00: WBC 12.9 H, RBC 4.33, Hgb 12.8 D, Hct 40.5, MCV 93.5, MCH 29.6, MCHC 31.7 L, RDW 15.9, Plt Count 278, MPV 8.7, Neut % (Auto) 81.6 H, Lymph % (Auto) 12.4, [place] % (Auto) 3.7, Eos % (Auto) 0.7, Baso % (Auto) 1.7, Neut # (Auto) 10.6 H, Lymph # (Auto) 1.6, [place] # (Auto) 0.5, Eos # (Auto) 0.1, Baso # (Auto) 0.2 02/24/23 06:00: Sodium 139, Potassium 4.2, Chloride 108 H, Carbon Dioxide 25, Anion Gap 10.2, BUN 7, Creatinine 0.70, Estimated Creat Clear 50, Estimated GFR 85, Est GFR ( Amer) 102, Glucose 130 H, Calcium 8.4, Phosphorus 3.8 D, Total Bilirubin 0.5, AST 84 H, ALT 51, Alkaline Phosphatase 149 H, Total Protein 6.8, Albumin 3.4 L, Globulin 3.4 H, Albumin/Globulin Ratio 1.0 L I & O for Labs for Last 24 Hours: Intake & Output 02/21/23 02/22/23 02/23/23 02/24/23 23:59 23:59 23:59 23:59 Intake Total 780 / 780 960 / 960 960 / 960 440 / 440 Output Total 900 / 900 2400 / 3200 4650 / 4650 100 / 100 Balance -120 / -120 -1440 / -2240 -3690 / -3690 340 / 340 Weight 278 lb 2 oz 272 lb 3.2 oz 268 lb 6.993 oz 268 lb 7 oz Constitutional: Present moderate distress Head: Present normocephalic and atraumatic ENT: Present normal exam, normal oropharynx and mucous membranes moist Neck: Present normal inspection and full ROM Respiratory: Present wheezes, diminished air movement and able to speak in complete sentences; Absent crackles Cardiac: Present S1/S2, Tachycardia and radial pulses present GI: Present soft and distention; Absent tenderness or guarding Rectal (female): Present deferred (female): Present deferred Skin: Present intact; Absent cyanosis or jaundice Neuro: Present alert, awake and oriented x 3 Extremities: Present normal inspection; Absent clubbing or cyanosis Psychiatric: Present normal affect and cooperative Assessment and Plan *Assessment and plan (1) Acute respiratory failure with hypoxia: Status: Acute Category: Medical Code(s): J96.01 - Acute respiratory failure with hypoxia (2) Asthma exacerbation: Status: Acute Category: Medical Code(s): J45.901 - Unspecified asthma with (acute) exacerbation (3) Pneumonia: Status: Acute Category: Medical Code(s): J18.9 - Pneumonia, unspecified organism (4) Hilar lymphadenopathy: Status: Acute Category: Medical Code(s): R59.0 - Localized enlarged lymph nodes (5) Mediastinal lymphadenopathy: Status: Acute Category: Medical Code(s): R59.0 - Localized enlarged lymph nodes Plan Ms. Mallory 62-year-old female history of asthma APARNA presented to the hospital status post syncope and fall, eventually admitted to the hospital for acute hypoxic respiratory failure and pneumonia and pulmonary was called for further evaluation Significant leukocytosis upon admission with a white count of 29, neutrophilic predominant. ABG on admission did not show any evidence of hypercarbic respiratory failure. Hypoxic respiratory failure with a PO2 of 47.6 on 4 L nasal cannula. Magnesium at 1.7 upon admission Patient was initiated on vancomycin, ceftriaxone and metronidazole upon admission. Blood cultures, sputum cultures are infectious work-up pending CT on admission no large PE. Prominent right lower lobe airspace disease along with enlarged lymphadenopathy predominantly 4R and 10 R. Diffuse narrowing of large and small airways. On examination patient saturating 98% on 2 L , Weaned to room air with saturations maintained at 92% above. No signific
--- NOTE | 2023-02-24 09:56 | EXP.CARD.PN ---
Subjective Subjective Date: 02/24/23 Time: 09:57 Principal diagnosis: chest pain/tightness Interval history: 62-year-old white female admitted to [facility] last week for sepsis with pneumonia with secondary non-STEMI due to demand demand ischemia had been improving over the weekend but suddenly developed some chest tightness and shortness of breath this morning. EKG was obtained which shows new T wave abnormalities in the anterior septal leads. Discussed with Dr. Higginbotham who recommends proceeding with left heart catheterization this morning. Sublingual nitroglycerin ordered. Exam Data for Last 24 hours Vital signs and Labs for Last 24 Hours: Temp Pulse Resp BP Pulse Ox FiO2 98.4 F 94 H 18 152/83 H 96 2 02/24/23 08:00 02/24/23 09:30 02/24/23 08:00 02/24/23 08:00 02/24/23 08:00 02/22/23 20:00 Laboratory Results - last 24 hr 02/24/23 06:00: WBC 12.9 H, RBC 4.33, Hgb 12.8 D, Hct 40.5, MCV 93.5, MCH 29.6, MCHC 31.7 L, RDW 15.9, Plt Count 278, MPV 8.7, Neut % (Auto) 81.6 H, Lymph % (Auto) 12.4, [place] % (Auto) 3.7, Eos % (Auto) 0.7, Baso % (Auto) 1.7, Neut # (Auto) 10.6 H, Lymph # (Auto) 1.6, [place] # (Auto) 0.5, Eos # (Auto) 0.1, Baso # (Auto) 0.2 02/24/23 06:00: Sodium 139, Potassium 4.2, Chloride 108 H, Carbon Dioxide 25, Anion Gap 10.2, BUN 7, Creatinine 0.70, Estimated Creat Clear 50, Estimated GFR 85, Est GFR ( Amer) 102, Glucose 130 H, Calcium 8.4, Phosphorus 3.8 D, Total Bilirubin 0.5, AST 84 H, ALT 51, Alkaline Phosphatase 149 H, Total Protein 6.8, Albumin 3.4 L, Globulin 3.4 H, Albumin/Globulin Ratio 1.0 L I & O for Last 24 hours: Intake & Output 02/21/23 02/22/23 02/23/2323 11:59 11:59 11:59 11:59 Intake Total 1260 / 1260 720 / 720 1160 / 1160 Output Total 1900 / 1900 4500 / 4500 1650 / 1650 Balance -640 / -640 -3780 / -3780 -490 / -490 Weight 278 lb 2 oz 272 lb 3.2 oz 268 lb 7 oz 268 lb 7 oz Constitutional Constitutional: mild distress and diaphoretic Comments: Rates chest tightness a 4 out of 10 *Routine Respiratory Exam Respiratory: Present rhonchi and wheezes *Routine Cardiovascular Exam Cardiovascular: Present RRR *Routine Extremities Exam Extremities: Absent edema *Routine Neurological Exam Neurological: Present alert and oriented X3 Progress Note: A&P Assessment and plan (1) ACS (acute coronary syndrome): Status: Acute (2) Acute respiratory failure with hypoxia: Status: Acute (3) Asthma exacerbation: Status: Acute (4) Pneumonia: Status: Acute (5) Hilar lymphadenopathy: Status: Acute (6) Mediastinal lymphadenopathy: Status: Acute Assessment and Plan Assessment and Plan for All Diagnoses:: 1. chest pain/tightness with acute EKG changes c/w ACS. On ASA and Heparin TID. Normal cors 2018. Echo this admit shows normal EF. Troponin increased today to 0.43. 2. Respiratory Failure with Pneumonia and Sepsis, per Dr. Hahn 3. Syncope with collapse Prior to admission, CT of head unremarkable Further recommendations to follow pending cath.
[2023-02-24 10:09] LABS: Troponin I 0.43 ng/ml (0.00-0.034)
--- NOTE | 2023-02-24 10:12 | PC.NURSE ---
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 Attempted to call spouse x 2 with no answer
--- NOTE | 2023-02-24 10:19 | PC.NURSE ---
Phone call received from patient's spouse. Updated on POC. States he will come in now
[2023-02-24 10:40] LABS: Troponin I 0.39 ng/ml (0.00-0.034)
--- NOTE | 2023-02-24 10:57 | HMH.PTEV ---
Physical Therapy Evaluation Rehab PT IP Evaluation Start: 02/23/23 08:18 Freq: ONCE Status: Active Protocol: Document 02/24/23 10:00 PHORDENISSE (Rec: 02/24/23 10:57 PHORNE [id number]) Subjective/History History History 62 yowf adm to [facility] with sepsis , PNA, and Hypoxia. She reports she lives with her , no steps to enter the home and she uses a cane or walker for ambulation sometimes. Subjective Subjective Pt reports feeling tired, but agrees to mobility assessment. Rehab PT IP Eval Objective Appearance Patient Behavior Appropriate Patient Orientation Person,Place,Time Difficulty following instructions none Speech Pattern Clear Ambulation Patient Able to Ambulate Yes Ambulation Observation IP General Gait Pattern Observation Shuffling Step Ambulation Distance (feet) 5 Ambulation Assistive Device None Ambulation Ability Minimal x 1 (25% assist) Balance Ability to Arise Able, uses arms to help Sitting Balance Steady, safe Standing Balance Steady, wide stance Dynamic Sitting Balance Ability Good Dynamic Standing Balance Ability Fair Transfers Bed Transfer Ability Minimal x 1 (25% assist) Chair Transfer Ability Minimal x 1 (25% assist) Sit to Stand Bed Transfer Ability Minimal x 1 (25% assist) Sit to Stand Chair Transfer Ability Minimal x 1 (25% assist) Rehab PT IP prob,goals,plan Problems Date of Evaluation: 02/24/23 PT IP Problems Bed Mobility,Transfers,Gait Rehab Potential Rehab Potential Good Plan PT Intervention Plan Bed Mobility,Transfers,Gait, Therapeutic Exercise PT Plan Frequency BID Duration LOS Discharge Goals Bed Transfer Ability Contact Guard/Hand Hold Sit to Stand Chair Transfer Ability Contact Guard/Hand Hold Ambulation Assistive Device Rolling Walker Ambulation Distance (feet) 20 Discharge Plan PT Discharge Plan Pt is currently most appropriate for rehab placement once medically stable for d/c. If she returnes home without skilled intervention she will be at increased risk for further debility, falls, or . G -code Required No Eval Complexity Eval Charge Codes 01175 - Moderate Complexity
--- NOTE | 2023-02-24 12:04 | EXP.ACUTE.PN ---
Subjective *Date: 02/24/23 *Time: 12:06 Interval history: Patient doing worse this morning. On rounds complaining of chest discomfort. Feels her chest is tight with some pain substernal. Increased cough today. Stable on 2 L. No nausea or vomiting. EKG obtained on rounds showing Wellen sign with biphasic T waves in anterior and inferior leads. Medical Exam Vital signs and Labs for Last 24 Hours: Vital Signs Temp Pulse Pulse Resp BP Pulse Ox 02/24/23 12:00 91 H 20 123/83 94 L 02/24/23 11:44 94 H 20 113/85 95 02/24/23 11:30 97.6 F 93 H 18 114/59 L 94 L 02/24/23 11:05 97 H 20 134/85 92 L 02/24/23 11:10 98 H 20 134/85 95 02/24/23 11:15 99 H 16 153/92 H 94 L 02/24/23 11:07 98 H 98 H 16 142/98 H 94 L 02/24/23 09:30 94 H 02/24/23 09:30 96 H 02/24/23 08:00 98.4 F 95 H 18 152/83 H 96 02/24/23 04:00 98.5 F 89 22 139/90 95 02/24/23 04:00 80 02/24/23 00:00 90 02/23/23 23:56 98.5 F 89 20 143/79 H 95 02/23/23 20:00 80 02/23/23 20:00 95 02/23/23 19:58 98.1 F 89 22 152/88 H 95 02/23/23 16:00 85 02/23/23 16:00 98.1 F 89 19 153/96 H 95 Intake and Output 02/23/23 02/24/23 02/24/23 23:59 07:59 15:59 Intake Total 240 / 960 240 / 440 200 / 440 Output Total 1050 / 4650 100 / 100 0 / 100 Balance -810 / -3690 140 / 340 200 / 340 Intake: Intake, Oral Amount 240 / 960 240 / 440 200 / 440 Output: Output, Urine Amount 1050 / 4650 100 / 100 0 / 100 Other: Number of Unmeasured Voids 0 1 1 Number of Bowel Movements 1 Weight 121.761 kg 121.761 kg Patient Weight 02/24/23 23:59 Weight 121.761 kg Laboratory Results - last 24 hr 02/24/23 06:00: WBC 12.9 H, RBC 4.33, Hgb 12.8 D, Hct 40.5, MCV 93.5, MCH 29.6, MCHC 31.7 L, RDW 15.9, Plt Count 278, MPV 8.7, Neut % (Auto) 81.6 H, Lymph % (Auto) 12.4, [place] % (Auto) 3.7, Eos % (Auto) 0.7, Baso % (Auto) 1.7, Neut # (Auto) 10.6 H, Lymph # (Auto) 1.6, [place] # (Auto) 0.5, Eos # (Auto) 0.1, Baso # (Auto) 0.2 02/24/23 06:00: Sodium 139, Potassium 4.2, Chloride 108 H, Carbon Dioxide 25, Anion Gap 10.2, BUN 7, Creatinine 0.70, Estimated Creat Clear 50, Estimated GFR 85, Est GFR ( Amer) 102, Glucose 130 H, Calcium 8.4, Phosphorus 3.8 D, Total Bilirubin 0.5, AST 84 H, ALT 51, Alkaline Phosphatase 149 H, Total Protein 6.8, Albumin 3.4 L, Globulin 3.4 H, Albumin/Globulin Ratio 1.0 L 02/24/23 06:00: Troponin I 0.43 H 02/24/23 09:32: Troponin I 0.39 H I & O for Labs for Last 24 Hours: Intake & Output 02/21/23 02/22/23 02/23/23 02/24/23 23:59 23:59 23:59 23:59 Intake Total 780 / 780 960 / 960 960 / 960 440 / 440 Output Total 900 / 900 2400 / 3200 4650 / 4650 100 / 100 Balance -120 / -120 -1440 / -2240 -3690 / -3690 340 / 340 Weight 126.155 kg 123.468 kg 121.761 kg 121.761 kg Constitutional: Present mild distress, morbidly obese, chronically ill appearing and cooperative Head: Present atraumatic and normocephalic ENT: Present normal exam Neck: Present normal inspection Respiratory: Present rhonchi, crackles (bases), distant breath sounds and able to speak in complete sentences; Absent wheezes Cardiac: Present Reg Rate and Rhythm GI: Present soft and normal bowel sounds; Absent distention or tenderness Extremities: Present normal inspection, full ROM and edema Skin: Present intact; Absent erythema Neuro: Present Grossly Intact, alert, awake, oriented x 3 and moves all extremities Assessment and Plan *Assessment and plan (1) ACS (acute coronary syndrome): Status: Acute Category: Medical Code(s): I24.9 - Acute ischemic heart disease, unspecified (2) Takotsubo cardiomyopathy: Status: Acute Category: Medical Code(s): I51.81 - Takotsubo syndrome (3) Pneumonia: Status: Acute Category: Medical Code(s): J18.9 - Pneumonia, unspecified organism (4) Sepsis: Status: Acute Category:
--- NOTE | 2023-02-24 16:03 | CARE MANAGER ---
Addendum entered by Alyse Erickson RN 02/26/23 13:25: Patient medically ready for discharge to [facility] today. Patient will require a covid test prior to discharge, nurse (Misty) notified. Patient's spouse is planning to transport patient. Addendum entered by Alyse Erickson RN 02/25/23 13:32: Patient is not medically ready for discharge today, per Dr. Peres. Updates faxed to [facility]. CM will continue to follow. Original Note: Spoke with patient and spouse at bedside, patient choice signed for [facility]. Referral faxed to [facility]. [facility] has a bed for patient when she is medically ready for discharge. CM will continue to monitor.
--- NOTE | 2023-02-24 16:42 | PC.NURSE ---
Patient alert and oriented. VSS. Heart cath today for complaint of chest pain this am. No cardiac intervention performed. One BM and multiple incontinent voids. Tolerating oral intake. O2 titrated to 1L O2 via nasal cannula. Continuing IV antibiotics. Spouse at bedside throughout day
[2023-02-25] VITALS (15 sets, daily range): BP systolic 92–117; BP diastolic 56–83; PULSE 83–100; RESP 17–20; TEMP 36.6–37.1; O2SAT 90–98; BMI 35.9
--- NOTE | 2023-02-25 01:38 | EXP.PN ---
Subjective *Date: 02/25/23 *Time: 09:00 Interval history: No acute events overnight. Continues to have some dyspnea and a productive cough with green sputum. Exam Data for Last 24 hours Vital signs and Labs for Last 24 Hours: Temp Pulse Resp BP Pulse Ox FiO2 98.0 F 92 H 20 92/68 L 93 L 2 02/25/23 00:00 02/25/23 00:00 02/25/23 00:00 02/25/23 00:00 02/25/23 00:00 02/22/23 20:00 Laboratory Results - last 24 hr 02/24/23 06:00: WBC 12.9 H, RBC 4.33, Hgb 12.8 D, Hct 40.5, MCV 93.5, MCH 29.6, MCHC 31.7 L, RDW 15.9, Plt Count 278, MPV 8.7, Neut % (Auto) 81.6 H, Lymph % (Auto) 12.4, [place] % (Auto) 3.7, Eos % (Auto) 0.7, Baso % (Auto) 1.7, Neut # (Auto) 10.6 H, Lymph # (Auto) 1.6, [place] # (Auto) 0.5, Eos # (Auto) 0.1, Baso # (Auto) 0.2 02/24/23 06:00: Sodium 139, Potassium 4.2, Chloride 108 H, Carbon Dioxide 25, Anion Gap 10.2, BUN 7, Creatinine 0.70, Estimated Creat Clear 50, Estimated GFR 85, Est GFR ( Amer) 102, Glucose 130 H, Calcium 8.4, Phosphorus 3.8 D, Total Bilirubin 0.5, AST 84 H, ALT 51, Alkaline Phosphatase 149 H, Total Protein 6.8, Albumin 3.4 L, Globulin 3.4 H, Albumin/Globulin Ratio 1.0 L 02/24/23 06:00: Troponin I 0.43 H 02/24/23 09:32: Troponin I 0.39 H I & O for Last 24 hours: Intake & Output 02/22/23 02/23/23 02/24/23 02/25/23 23:59 23:59 23:59 23:59 Intake Total 960 / 960 960 / 960 1460 / 1460 Output Total 2400 / 3200 4650 / 4650 400 / 400 Balance -1440 / -2240 -3690 / -3690 1060 / 1060 Weight 123.468 kg 121.761 kg 121.761 kg Microbiology Reports for the Last 24 Hours: Microbiology 02/24/23 09:15 Sputum - Expectorated Sputum Gram Stain - Final Constitutional Constitutional: no acute distress *Routine HEENT Exam Head: Present normocephalic Eye: Present EOMI and PERRL ENT: Present mucous membranes moist *Routine Neck Exam Neck: Present supple; Absent lymphadenopathy *Routine Respiratory Exam Respiratory: Present accessory muscle use, prolonged expiratory phase and wheezes *Routine Cardiovascular Exam Cardiovascular: Present RRR *Routine Abdominal Exam Abdominal: Present soft and normoactive bowel sounds; Absent tenderness *Routine Extremities Exam Extremities: Absent cyanosis, clubbing or edema *Routine Skin Exam Skin: Present warm; Absent rash *Routine Neurological Exam Neurological: Present alert and oriented X3 Assessment and Plan *Assessment and plan (1) Acute respiratory failure with hypoxia: Status: Acute Category: Medical Code(s): J96.01 - Acute respiratory failure with hypoxia (2) Asthma exacerbation: Status: Acute Category: Medical Code(s): J45.901 - Unspecified asthma with (acute) exacerbation (3) Pneumonia: Status: Acute Category: Medical Code(s): J18.9 - Pneumonia, unspecified organism (4) Hilar lymphadenopathy: Status: Acute Category: Medical Code(s): R59.0 - Localized enlarged lymph nodes (5) Mediastinal lymphadenopathy: Status: Acute Category: Medical Code(s): R59.0 - Localized enlarged lymph nodes Plan Ms. Mallory is a 62 year old female with a past medical history of asthma, APARNA, obesity, chronic pain and anxiety. He presented to the ED after syncope and collapse. Hospital course was complicated by chest pain and respiratory failure. CTA of the chest revealed focal airspace opacities in the dependent right upper and lower lobes and left lower lobe. The patient had a cardiac catheterization on 02/24 which revealed findings consistent with takotsubo cardiomyopathy. #takotsubo cardiomyopathy #acute hypoxic respiratory failure #pneumonia #mediastinal hilar lymphadenopathy Echocardiogram was ordered. Appreciate Cardiology; initiated Entresto and Coreg and recommended continuing aspirin and atorvastatin. Today dose of IV lasix was increased. Continue strict i/o. salt and fluid restriction. The patient will need a Lifevest at time of discharge. Continuin
--- NOTE | 2023-02-25 07:44 | EXP.CARD.PN ---
Subjective Subjective Date: 02/25/23 Time: 07:44 Principal diagnosis: Sepsis/pneumonia, Takotsubo cardiomyopathy Interval history: 62-year-old white female sitting in bed eating breakfast in no acute distress. Denies any chest pain, pressure or tightness overnight. Results of left heart catheterization reviewed with patient. Discussed possibility of LifeVest upon discharge. Exam Data for Last 24 hours Vital signs and Labs for Last 24 Hours: Temp Pulse Resp BP Pulse Ox FiO2 98.6 F 93 H 19 117/59 L 91 L 2 02/25/23 07:20 02/25/23 07:20 02/25/23 07:20 02/25/23 07:20 02/25/23 07:20 02/22/23 20:00 Laboratory Results - last 24 hr 02/24/23 06:00: Troponin I 0.43 H 02/24/23 09:32: Troponin I 0.39 H I & O for Last 24 hours: Intake & Output 02/22/23 02/23/23 02/24/23 02/25/23 11:59 11:59 11:59 11:59 Intake Total 1260 / 1260 720 / 720 1160 / 1160 1260 / 1260 Output Total 1900 / 1900 4500 / 4500 1650 / 1650 300 / 300 Balance -640 / -640 -3780 / -3780 -490 / -490 960 / 960 Weight 272 lb 3.2 oz 268 lb 7 oz 268 lb 7 oz 215 lb 4.8 oz Microbiology Reports for the Last 24 Hours: Microbiology 02/24/23 09:15 Sputum - Expectorated Sputum Gram Stain - Final Constitutional Constitutional: no acute distress *Routine Respiratory Exam Respiratory: Present rhonchi and wheezes *Routine Cardiovascular Exam Cardiovascular: Present RRR *Routine Extremities Exam Extremities: Present edema Progress Note: A&P Assessment and plan (1) ACS (acute coronary syndrome): Status: Acute (2) Takotsubo cardiomyopathy: Status: Acute (3) Pneumonia: Status: Acute (4) Sepsis: Status: Acute (5) Syncope and collapse: Status: Acute (6) Acute respiratory failure with hypoxia: Status: Acute (7) Metabolic acidosis: Status: Acute (8) Asthma: Status: Acute (9) APARNA (obstructive sleep apnea): Status: Acute (10) Class 3 obesity with alveolar hypoventilation and body mass index (BMI) of 40.0 to 44.9 in adult: Status: Chronic Assessment and Plan Assessment and Plan for All Diagnoses:: 1. Takotsubo cardiomyopathy related to use of Imitrex. Patient has been started on carvedilol and Entresto Will increase IV Lasix to continue negative urine output Repeat limited echocardiogram prior to discharge for consideration of LifeVest 2. Sepsis/pneumonia/respiratory failure, defer to pulmonary and hospitalist 3. Syncope with collapse prior to admission, CT of head
--- NOTE | 2023-02-25 08:02 | PC.NURSE ---
Patient's O2 sat 89-90 on RA. O2 at 1L applied via nasal cannula with O2 sats increasing to 95%
--- NOTE | 2023-02-25 08:51 | ECG_ITS ---
APPROVED REPORT Exam: Resting ECG HR:95 bpm ECG Measurements Heart Rate 95 AXES MI 155 P 13 QRSd 69 QRS -48 QT 392 T 197 QTc 445 Conclusion SINUS RHYTHM LEFT ANTERIOR FASCICULAR BLOCK [QRS AXIS <= -45, QR IN I, RS IN II] POSSIBLE ANTERIOR MYOCARDIAL INFARCTION , OF INDETERMINATE AGE [30 ms Q WAVE IN V3/V4, OR R < 0.2 mV IN V4] MODERATE T-WAVE ABNORMALITY, CONSIDER LATERAL ISCHEMIA [-0.1+ mV T-WAVE IN I/aVL/V5/V6] MODERATE T-WAVE ABNORMALITY, CONSIDER INFERIOR ISCHEMIA [-0.1+ mV T-WAVE IN II/aVF] ABNORMAL ECG UNCONFIRMED REPORT Electronically signed by : Manas Jalloh MD 02/25/2023 21:17:13
--- NOTE | 2023-02-25 09:38 | EXP.PULM.PN ---
Subjective *Date: 02/25/23 *Time: 10:10 Interval history: No acute respiratory events overnight. Patient admits improving respiratory symptoms. Pulmonology Exam Inpatient Vital signs and Labs for Last 24 Hours: Temp Pulse Resp BP Pulse Ox FiO2 98.6 F 90 19 117/59 L 91 L 2 02/25/23 07:20 02/25/23 08:00 02/25/23 07:20 02/25/23 07:20 02/25/23 07:20 02/22/23 20:00 Laboratory Results - last 24 hr 02/24/23 06:00: Troponin I 0.43 H 02/24/23 09:32: Troponin I 0.39 H I & O for Labs for Last 24 Hours: Intake & Output 02/22/23 02/23/23 02/24/23 02/25/23 23:59 23:59 23:59 23:59 Intake Total 960 / 960 960 / 960 1460 / 1460 240 / 240 Output Total 2400 / 3200 4650 / 4650 400 / 400 200 / 200 Balance -1440 / -2240 -3690 / -3690 1060 / 1060 40 / 40 Weight 272 lb 3.2 oz 268 lb 6.993 oz 268 lb 7 oz 215 lb 4.8 oz Microbiology Reports for the Last 24 Hours: Microbiology 02/24/23 09:15 Sputum - Expectorated Sputum Gram Stain - Final Constitutional: Present moderate distress Head: Present normocephalic and atraumatic ENT: Present normal exam, normal oropharynx and mucous membranes moist Neck: Present normal inspection and full ROM Respiratory: Present respiratory distress, wheezes and able to speak in complete sentences; Absent crackles Cardiac: Present S1/S2, Tachycardia and radial pulses present GI: Present soft and distention; Absent tenderness or guarding Rectal (female): Present deferred (female): Present deferred Skin: Present intact; Absent cyanosis or jaundice Neuro: Present alert, awake and oriented x 3 Extremities: Present normal inspection; Absent clubbing or cyanosis Psychiatric: Present normal affect and cooperative Assessment and Plan *Assessment and plan (1) Acute respiratory failure with hypoxia: Status: Acute Category: Medical Code(s): J96.01 - Acute respiratory failure with hypoxia (2) Asthma exacerbation: Status: Acute Category: Medical Code(s): J45.901 - Unspecified asthma with (acute) exacerbation (3) Pneumonia: Status: Acute Category: Medical Code(s): J18.9 - Pneumonia, unspecified organism (4) Hilar lymphadenopathy: Status: Acute Category: Medical Code(s): R59.0 - Localized enlarged lymph nodes (5) Mediastinal lymphadenopathy: Status: Acute Category: Medical Code(s): R59.0 - Localized enlarged lymph nodes Plan Ms. Mallory 62-year-old female history of asthma APARNA presented to the hospital status post syncope and fall, eventually admitted to the hospital for acute hypoxic respiratory failure and pneumonia and pulmonary was called for further evaluation Significant leukocytosis upon admission with a white count of 29, neutrophilic predominant. ABG on admission did not show any evidence of hypercarbic respiratory failure. Hypoxic respiratory failure with a PO2 of 47.6 on 4 L nasal cannula. Magnesium at 1.7 upon admission Patient was initiated on vancomycin, ceftriaxone and metronidazole upon admission. Blood cultures, sputum cultures are infectious work-up pending CT on admission no large PE. Prominent right lower lobe airspace disease along with enlarged lymphadenopathy predominantly 4R and 10 R. Diffuse narrowing of large and small airways. On examination patient saturating 98% on 2 L , Weaned to room air with saturations maintained at 92% above. No significant wheezing noted on auscultation. Interval update: No acute respiratory vents overnight. Weaned to 1 L. Auscultation improved wheezing. Status post left heart cath, stress cardiomyopathy. Cardiology following. Leukocytosis continue to improve. Plan: -Continue ceftriaxone and azithromycin pending sputum cultures, can be weaned to Augmentin upon discharge to complete a total of 5-day course for pneumonia -Continue home inhaler therapy including Trelegy 100 along with continuation of DuoNebs every 6 hours only on as-needed basis -Follow
--- NOTE | 2023-02-25 14:48 | PC.NURSE ---
Pt placed on RA.
--- NOTE | 2023-02-25 17:32 | PC.NURSE ---
Patient alert and oriented. VSS. Able to titrate to room air this afternoon with O2 sats 94-95%. Up to commode with 2 for voids and BM's. Ultram for chronic leg pain. Possible discharge to inpatient rehab tomorrow
[2023-02-26] VITALS: PULSE 90
[2023-02-26 04:00] VITALS: BP 132/82; PULSE 80; PULSE 86; RESP 18; TEMP 36.5; O2SAT 91; BMI 43.4
--- NOTE | 2023-02-26 05:06 | PC.NURSE ---
Pt. got a pain pill at the beginning of the shift for pain. She complained of more pain later in the night and got some Tylenol. No changes noted.
[2023-02-26 06:04] LABS: Basophils # 0.5 K/mm3 (0-0.2); Basophils % 2.2 % (0.1-2.0); Eosinophils # 0.3 K/mm3 (0.0-0.4); Eosinophils % 1.5 % (0.1-12.0); Hematocrit 41.8 % (37.0-47.0); Hemoglobin 13.1 g/dL (12.2-16.2); Lymphocytes # 4.1 K/mm3 (0.7-4.5); Lymphocytes % 18.3 % (10-50); Mean Corpuscular HGB Conc 31.3 g/dL (31.8-35.4); Mean Corpuscular Hemoglobin 29.4 pg (27.0-31.2); Mean Corpuscular Volume 93.9 fl (81-99); Mean Platelet Volume 9.3 fl (7.4-10.4); Monocytes # 0.8 K/mm3 (0.1-1.0); Monocytes % 3.5 % (1.7-9.3); Neutrophils # 17.2 K/mm3 (1.8-7.8); Neutrophils % 76.8 % (37.0-80.0); Platelet Count 388 K/mm3 (142-424); Red Blood Count 4.45 M/mm3 (4.20-5.40); Red Cell Distribution Width 16.3 % (11.5-17.5); White Blood Count 22.4 K/mm3 (4.8-10.8)
[2023-02-26 06:08] LABS: Chloride 102 mmol/L (98-107); Potassium 4.4 mmoL/L (3.5-5.1); Sodium 136 mmol/L (136-145)
[2023-02-26 06:09] LABS: MANUAL DIFFERENTIAL MANUAL DIFFERENTIAL (MANUAL DIFF)
[2023-02-26 06:11] LABS: Anion Gap 10.4 mEq/L (5-15); Blood Urea Nitrogen 19 mg/dl (7-17); Carbon Dioxide 28 mmol/L (22.0-30.0); Creatinine Clearance Estimated 50 mL/min (50-200); Estimated Glomerular Filt Rate 101 ml/min (>60); GFR (African American) 122 ML/MIN (>60); Glucose 121 mg/dl (74-100)
[2023-02-26 06:55] LABS: Hypochromasia 1+; Lymphocytes % 23 % (10-50); Macrocytosis 1+; Monocytes % 6 % (2-9); Neutrophils % 71 % (42-76); Platelet Estimate Normal; Total Cells Counted 100
[2023-02-26 07:10] VITALS: BP 107/74; PULSE 86; RESP 19; TEMP 36.6; O2SAT 90
--- NOTE | 2023-02-26 07:52 | EXP.CARD.PN ---
Subjective Subjective Date: 02/26/23 Time: 08:10 Principal diagnosis: Sepsis/pneumonia, Takotsubo cardiomyopathy Interval history: 62-year-old white female in bed in no acute distress. Despite increasing IV Lasix yesterday patient still had only a net negative output of 700 mL. Patient does drink a large amount of fluids per day. Breathing seems to be improved this morning. Exam Data for Last 24 hours Vital signs and Labs for Last 24 Hours: Temp Pulse Resp BP Pulse Ox FiO2 97.9 F 86 19 107/74 L 90 L 2 02/26/23 07:10 02/26/23 07:10 02/26/23 07:10 02/26/23 07:10 02/26/23 07:10 02/22/23 20:00 Laboratory Results - last 24 hr 02/26/23 05:40: WBC 22.4 H* D, RBC 4.45, Hgb 13.1, Hct 41.8, MCV 93.9, MCH 29.4, MCHC 31.3 L, RDW 16.3, Plt Count 388 D, MPV 9.3, Neut % (Auto) 76.8, Lymph % (Auto) 18.3, [place] % (Auto) 3.5, Eos % (Auto) 1.5, Baso % (Auto) 2.2 H, Neut # (Auto) 17.2 H, Lymph # (Auto) 4.1, [place] # (Auto) 0.8, Eos # (Auto) 0.3, Baso # (Auto) 0.5 H, Total Counted 100, Neutrophils % (Manual) 71, Lymphocytes % (Manual) 23, Monocytes % (Manual) 6, Platelet Estimate Normal, Hypochromasia 1+, Macrocytosis 1+ 02/26/23 05:40: Sodium 136, Potassium 4.4, Chloride 102, Carbon Dioxide 28, Anion Gap 10.4, BUN 19 H D, Creatinine 0.60, Estimated Creat Clear 50, Estimated GFR 101, Est GFR ( Amer) 122, Glucose 121 H, Calcium 9.0 I & O for Last 24 hours: Intake & Output 02/23/23 02/24/23 02/25/23 02/26/23 11:59 11:59 11:59 11:59 Intake Total 720 / 720 1160 / 1160 1260 / 1260 2460 / 2460 Output Total 4500 / 4500 1650 / 1650 1100 / 1100 2350 / 2350 Balance -3780 / -3780 -490 / -490 160 / 160 110 / 110 Weight 268 lb 7 oz 268 lb 7 oz 215 lb 4.8 oz 260 lb 9 oz Microbiology Reports for the Last 24 Hours: Microbiology 02/21/23 02:52 Blood Blood Culture - Final NO GROWTH AFTER 5 DAYS 02/21/23 02:52 Blood Blood Culture - Final NO GROWTH AFTER 5 DAYS Constitutional Constitutional: no acute distress *Routine Respiratory Exam Respiratory: Present wheezes *Routine Cardiovascular Exam Cardiovascular: Present RRR *Routine Extremities Exam Extremities: Present edema Progress Note: A&P Assessment and plan (1) Acute respiratory failure with hypoxia: Status: Acute (2) Asthma exacerbation: Status: Acute (3) Pneumonia: Status: Acute (4) Hilar lymphadenopathy: Status: Acute (5) Mediastinal lymphadenopathy: Status: Acute (6) Acute HFrEF (heart failure with reduced ejection fraction): Status: Acute (7) ACS (acute coronary syndrome): Status: Acute (8) Takotsubo cardiomyopathy: Status: Acute (9) Pneumonia: Status: Acute (10) Sepsis: Status: Acute (11) Syncope and collapse: Status: Acute (12) Metabolic acidosis: Status: Acute (13) Asthma: Status: Acute (14) APARNA (obstructive sleep apnea): Status: Acute (15) Class 3 obesity with alveolar hypoventilation and body mass index (BMI) of 40.0 to 44.9 in adult: Status: Chronic Assessment and Plan Assessment and Plan for All Diagnoses:: 1. Takotsubo cardiomyopathy related to use of Imitrex. Now on carvedilol and Entresto Will continue IV Lasix to continue negative urine output Repeat limited echocardiogram today for consideration of LifeVest. Most recent echo on 02/24/2023 shows EF 30-40% (down from 55-60% on 02/21/2023) 2. Sepsis/pneumonia/respiratory failure, defer to pulmonary and hospitalist 3. Syncope with collapse prior to admission, CT of head 4. HFrEF, continue IV Lasix, Entresto and carvedilol therapy Add spironolactone and discontinue potassium
[2023-02-26 08:00] VITALS: PULSE 85; PULSE 86; O2SAT 90
--- NOTE | 2023-02-26 08:49 | EXP.PN ---
Subjective *Date: 02/26/23 *Time: 08:49 Interval history: She is saturating 90% on room air Leukocytosis is worse with wbc count 22K up from 13K 2 days prior. Sputum culture is pending; gram stain had a few gram positive cocci in pairs Exam Data for Last 24 hours Vital signs and Labs for Last 24 Hours: Temp Pulse Resp BP Pulse Ox FiO2 97.9 F 86 19 107/74 L 90 L 2 02/26/23 07:10 02/26/23 08:00 02/26/23 07:10 02/26/23 07:10 02/26/23 08:00 02/22/23 20:00 Laboratory Results - last 24 hr 02/26/23 05:40: WBC 22.4 H* D, RBC 4.45, Hgb 13.1, Hct 41.8, MCV 93.9, MCH 29.4, MCHC 31.3 L, RDW 16.3, Plt Count 388 D, MPV 9.3, Neut % (Auto) 76.8, Lymph % (Auto) 18.3, [place] % (Auto) 3.5, Eos % (Auto) 1.5, Baso % (Auto) 2.2 H, Neut # (Auto) 17.2 H, Lymph # (Auto) 4.1, [place] # (Auto) 0.8, Eos # (Auto) 0.3, Baso # (Auto) 0.5 H, Total Counted 100, Neutrophils % (Manual) 71, Lymphocytes % (Manual) 23, Monocytes % (Manual) 6, Platelet Estimate Normal, Hypochromasia 1+, Macrocytosis 1+ 02/26/23 05:40: Sodium 136, Potassium 4.4, Chloride 102, Carbon Dioxide 28, Anion Gap 10.4, BUN 19 H D, Creatinine 0.60, Estimated Creat Clear 50, Estimated GFR 101, Est GFR ( Amer) 122, Glucose 121 H, Calcium 9.0 I & O for Last 24 hours: Intake & Output 02/23/23 02/24/23 02/25/23 02/26/23 23:59 23:59 23:59 23:59 Intake Total 960 / 960 1460 / 1460 2340 / 2340 360 / 360 Output Total 4650 / 4650 400 / 400 2900 / 2900 250 / 250 Balance -3690 / -3690 1060 / 1060 -560 / -560 110 / 110 Weight 121.761 kg 121.761 kg 97.658 kg 118.189 kg Microbiology Reports for the Last 24 Hours: Microbiology 02/21/23 02:52 Blood Blood Culture - Final NO GROWTH AFTER 5 DAYS 02/21/23 02:52 Blood Blood Culture - Final NO GROWTH AFTER 5 DAYS Assessment and Plan *Assessment and plan (1) Acute respiratory failure with hypoxia: Status: Acute Category: Medical Code(s): J96.01 - Acute respiratory failure with hypoxia (2) Asthma exacerbation: Status: Acute Category: Medical Code(s): J45.901 - Unspecified asthma with (acute) exacerbation (3) Pneumonia: Status: Acute Category: Medical Code(s): J18.9 - Pneumonia, unspecified organism (4) Hilar lymphadenopathy: Status: Acute Category: Medical Code(s): R59.0 - Localized enlarged lymph nodes (5) Mediastinal lymphadenopathy: Status: Acute Category: Medical Code(s): R59.0 - Localized enlarged lymph nodes Plan Ms. Mallory is a 62 year old female with a past medical history of asthma, APARNA, obesity, chronic pain and anxiety. He presented to the ED after syncope and collapse. Hospital course was complicated by chest pain and respiratory failure. CTA of the chest revealed focal airspace opacities in the dependent right upper and lower lobes and left lower lobe. The patient had a cardiac catheterization on 02/24 which revealed findings consistent with takotsubo cardiomyopathy. #takotsubo cardiomyopathy #acute hypoxic respiratory failure #pneumonia #mediastinal hilar lymphadenopathy Echocardiogram was ordered. Appreciate Cardiology; initiated Entresto and Coreg and recommended continuing aspirin and atorvastatin. Today dose of IV lasix was increased. Continue strict i/o. salt and fluid restriction. The patient will need a Lifevest at time of discharge. Continuing supplemental oxygen as needed. Today is on 1L [place]. Continuing ceftriaxone and azithromycin, duonebs and home inhaler therapy. Will need to follow sputum culture. Appreciate Pulmonology. She will need a repeat CT chest to follow up on her mediastinal hilar lymphadenopathy and diffuseairway narrowing. dvt ppx: heparin subcu Full code Soft mechanical diet Discharge planning: possibly d/c to home tomorrow; she will need ambulatory pulse oximetry
--- NOTE | 2023-02-26 09:43 | EXP.PULM.PN ---
Subjective *Date: 02/26/23 *Time: 10:45 Interval history: No acute respiratory events overnight. Patient denies any new respiratory complaints. Pulmonology Exam Inpatient Vital signs and Labs for Last 24 Hours: Temp Pulse Resp BP Pulse Ox FiO2 97.9 F 86 19 107/74 L 90 L 2 02/26/23 07:10 02/26/23 08:00 02/26/23 07:10 02/26/23 07:10 02/26/23 08:00 02/22/23 20:00 Laboratory Results - last 24 hr 02/26/23 05:40: WBC 22.4 H* D, RBC 4.45, Hgb 13.1, Hct 41.8, MCV 93.9, MCH 29.4, MCHC 31.3 L, RDW 16.3, Plt Count 388 D, MPV 9.3, Neut % (Auto) 76.8, Lymph % (Auto) 18.3, [place] % (Auto) 3.5, Eos % (Auto) 1.5, Baso % (Auto) 2.2 H, Neut # (Auto) 17.2 H, Lymph # (Auto) 4.1, [place] # (Auto) 0.8, Eos # (Auto) 0.3, Baso # (Auto) 0.5 H, Total Counted 100, Neutrophils % (Manual) 71, Lymphocytes % (Manual) 23, Monocytes % (Manual) 6, Platelet Estimate Normal, Hypochromasia 1+, Macrocytosis 1+ 02/26/23 05:40: Sodium 136, Potassium 4.4, Chloride 102, Carbon Dioxide 28, Anion Gap 10.4, BUN 19 H D, Creatinine 0.60, Estimated Creat Clear 50, Estimated GFR 101, Est GFR ( Amer) 122, Glucose 121 H, Calcium 9.0 I & O for Labs for Last 24 Hours: Intake & Output 02/23/23 02/24/23 02/25/23 02/26/23 23:59 23:59 23:59 23:59 Intake Total 960 / 960 1460 / 1460 2340 / 2340 360 / 360 Output Total 4650 / 4650 400 / 400 2900 / 2900 250 / 250 Balance -3690 / -3690 1060 / 1060 -560 / -560 110 / 110 Weight 268 lb 6.993 oz 268 lb 7 oz 215 lb 4.8 oz 260 lb 9 oz Microbiology Reports for the Last 24 Hours: Microbiology 02/21/23 02:52 Blood Blood Culture - Final NO GROWTH AFTER 5 DAYS 02/21/23 02:52 Blood Blood Culture - Final NO GROWTH AFTER 5 DAYS Constitutional: Present moderate distress Head: Present normocephalic and atraumatic ENT: Present normal exam, normal oropharynx and mucous membranes moist Neck: Present normal inspection and full ROM Respiratory: Present respiratory distress and able to speak in complete sentences; Absent wheezes or crackles Cardiac: Present S1/S2, Tachycardia and radial pulses present GI: Present soft and distention; Absent tenderness or guarding Rectal (female): Present deferred (female): Present deferred Skin: Present intact; Absent cyanosis or jaundice Neuro: Present alert, awake and oriented x 3 Extremities: Present normal inspection; Absent clubbing or cyanosis Psychiatric: Present normal affect and cooperative Assessment and Plan *Assessment and plan (1) Acute respiratory failure with hypoxia: Status: Acute Category: Medical Code(s): J96.01 - Acute respiratory failure with hypoxia (2) Asthma exacerbation: Status: Acute Category: Medical Code(s): J45.901 - Unspecified asthma with (acute) exacerbation (3) Pneumonia: Status: Acute Category: Medical Code(s): J18.9 - Pneumonia, unspecified organism (4) Hilar lymphadenopathy: Status: Acute Category: Medical Code(s): R59.0 - Localized enlarged lymph nodes (5) Mediastinal lymphadenopathy: Status: Acute Category: Medical Code(s): R59.0 - Localized enlarged lymph nodes Plan Ms. Mallory 62-year-old female history of asthma APARNA presented to the hospital status post syncope and fall, eventually admitted to the hospital for acute hypoxic respiratory failure and pneumonia and pulmonary was called for further evaluation Significant leukocytosis upon admission with a white count of 29, neutrophilic predominant. ABG on admission did not show any evidence of hypercarbic respiratory failure. Hypoxic respiratory failure with a PO2 of 47.6 on 4 L nasal cannula. Magnesium at 1.7 upon admission Patient was initiated on vancomycin, ceftriaxone and metronidazole upon admission. Blood cultures, sputum cultures are infectious work-up pending CT on admission no large PE. Prominent right lower lobe airspace disease along wit
--- NOTE | 2023-02-26 09:44 | XR_ITS ---
FINAL REPORT CLINICAL HISTORY: Pneumonia COMPARISON: 02/21/2023 FINDINGS: The heart size is normal. The mediastinum is normal. The lungs are underinflated. There are linear densities at the left base consistent with scarring or atelectasis. There are no pleural effusions. There is no pneumothorax. There is no osseous abnormality. IMPRESSION: Left basilar linear densities. Reviewed, Interpreted and Dictated by Pérez Bui MD Transcribed by Sobia Hyman Authenticated and [facility]
--- NOTE | 2023-02-26 10:34 | PC.NURSE ---
pt walked at this time, O2 at 93%
[2023-02-26 10:51] LABS: Basophils # 0.4 K/mm3 (0-0.2); Basophils % 2.3 % (0.1-2.0); Eosinophils # 0.3 K/mm3 (0.0-0.4); Eosinophils % 1.5 % (0.1-12.0); Hematocrit 41.1 % (37.0-47.0); Hemoglobin 12.9 g/dL (12.2-16.2); Lymphocytes # 2.8 K/mm3 (0.7-4.5); Lymphocytes % 14.7 % (10-50); Mean Corpuscular HGB Conc 31.3 g/dL (31.8-35.4); Mean Corpuscular Hemoglobin 29.2 pg (27.0-31.2); Mean Corpuscular Volume 93.1 fl (81-99); Mean Platelet Volume 8.9 fl (7.4-10.4); Monocytes # 0.7 K/mm3 (0.1-1.0); Monocytes % 3.5 % (1.7-9.3); Neutrophils # 15.4 K/mm3 (1.8-7.8); Neutrophils % 80.4 % (37.0-80.0); Platelet Count 377 K/mm3 (142-424); Red Blood Count 4.42 M/mm3 (4.20-5.40); Red Cell Distribution Width 16.4 % (11.5-17.5); White Blood Count 19.2 K/mm3 (4.8-10.8)
[2023-02-26 11:14] VITALS: BP 127/70; PULSE 81; RESP 18; TEMP 36.7; O2SAT 91
[2023-02-26 12:00] VITALS: PULSE 80
--- NOTE | 2023-02-26 13:02 | EXP.DC.SUM ---
General Admission date:: 02/21/23 Discharge date: 02/26/23 HPI HPI HPI: Ms. Mallory is a 62-year-old female with a past medical history of Asthma, APARNA, does not wear home CPAP, Tremors, Anxiety Disorder and chronic leg pain. She presented to [facility] by EMS due to syncope and collapse that occurred a few hours prior to presentation. She was seen in the ER, was at bedside who provided the history. He reported that the patient appeared normal on 02/20, he did state that she was having a productive cough, but denied any other complaints. He reports that early in the morning that she appeared to get out of bed and slumped over, he reports that she did not hit anything when going to the floor, he reports that he called 911 and it was approximately 15 seconds before she aroused. When EMS arrived to the home initial blood pressure was 55/30, but responded to 112/60 with arousal and she received IVF in route to the hospital. In the ER, the patient had a CT of the head that showed no acute intracranial abnormalities. Initial Troponin was elevated at 0.22 and repeat was elevated at 0.30. Initial EKG showed some changes in the anterior leads, repeat EKG showed sinus Tachycardia with no changes. CTA of the chest showed areas of airspace opacities in the dependent right upper and lower lobes and left lower lobes. It also showed diffuse narrowing the the trachea and major bronchi. ABG showed a metabolic acidosis with pH 7.32, HCO3 19.8 and a moderate hypoxemia with pO2 57.5, taken on FiO2 36%. CBC showed a WBC of 29.6 with Neutrophils of 27.8. In the ER, the patient received iv fluids and Rocephin iv. On exam, she is lethargic, but will arouse to touch and falls back asleep. The patient will be admitted with initial impression: Sepsis, Syncope with collapse, NSTEMI. She will be placed on broad spectrum antibiotics. Cardiology and Pulmonary will be consulted. Cultures will be drawn. She will be monitored on telemetry. The plan of care was discussed with the patient and at bedside. The verbalized understanding and agreement with the plan of care. Hospital Course Hospital Course Hospital Course: Ms. Mallory is a 62 year old female with a past medical history of asthma, APARNA, obesity, chronic pain and anxiety. She presented to the ED after syncope and collapse. Hospital course was complicated by chest pain and respiratory failure. CTA of the chest revealed focal airspace opacities in the dependent right upper and lower lobes and left lower lobe. The patient had a cardiac catheterization on 02/24 which revealed findings consistent with takotsubo cardiomyopathy. Echocardiogram 02/24/23 showed EF 30-40% (down from 55-60% on 02/21/23). Cardiology was under the impression that the patient's Imitrex could have contributed to her cardiomyopathy so this medication was discontinued. Cardiology started the patient on many medications including IV lasix. The patient's salt and fluid intake was restricted. Limited echo prior to discharge showed LVEF 45-50%. The patient was given supplemental oxygen throughout hospital course but by the day of discharge it was weaned off. She received iv antibiotics throughout the hospital course and was discharged on 5 days of moxifloxacin. Blood cultures had no growth. She will need a repeat CT chest to follow up on her mediastinal hilar lymphadenopathy and diffuse airway narrowing. She is discharging to [facility]. #takotsubo cardiomyopathy #acute hypoxic respiratory failure #CHF exacerbation #pneumonia #mediastinal hilar lymphadenopathy Discharge Instructions: You were started on many new medications for your heart including spironolactone, Entresto, carvedilol and lasix. You will need to take 5 days of an antibiotic, moxifloxacin. You should continue your Trelegy Ellipta and use DuoNeb treatments as needed for shortness of breath. You should never take Imitrex as it could have contrib
[2023-02-26 13:43] LABS: Coronavirus 19, PCR Not Detected (NotDetected); Influenza A, PCR Not Detected (NotDetected); Influenza B, PCR Not Detected (NotDetected)
[2023-02-26 16:14] LABS: Body Fluid Culture, Sterile Not indicated. (.); Organism ID Not indicated. (.); Specimen Source Urine (.); Streptococcus pneumoniae Ag Positive (Negative)
--- NOTE | 2023-02-27 11:20 | CARE MANAGER ---
Addendum entered by Kianna Plata RN 02/27/23 11:32: Noticed the prescription for Furosemide had failed to send. Spoke with Dave in pharmacy and he is going to resend it as well as the others because there was not confirmation of receipt of prescriptions. Original Note: Contacted Eileen at [facility]. She states patient is doing well, but has been asking for her Tramadol. The prescription was not sent at discharge. Spoke with Dr. Peres and he will send prescription now. I notified Eileen at [facility]. [facility]IS[facility] Gordillo
== END 2023-02-26 14:26 | DRG 280 ==
LOC: ER 05:52 → 2ND 06:15
PROVIDERS: Internal Medicine; Internal Medicine Adolescent Medicine; Nurse Practitioner Family; Physician Assistant; Admitting Provider Student in an Organized Health Care Education/Training Program; Emergency Provider Emergency Medicine; PCP Family Medicine; Visit Provider Student in an Organized Health Care Education/Training Program
PROC: 4A023N7 Measurement of Cardiac Sampling and Pressure, Left Heart, Percutaneous Approach (ICD-10-PCS; principal; 2023-02-24 12:00)
DX: I21.4 Non-ST elevation (NSTEMI) myocardial infarction (principal); A41.9 Sepsis, unspecified organism; I50.21 Acute systolic (congestive) heart failure; J96.01 Acute respiratory failure with hypoxia; J18.9 Pneumonia, unspecified organism; I51.81 Takotsubo syndrome; Z68.41 Body mass index [BMI] 40.0-44.9, adult; E66.2 Morbid (severe) obesity with alveolar hypoventilation; Z79.899 Other long term (current) drug therapy; G47.33 Obstructive sleep apnea (adult) (pediatric); J45.909 Unspecified asthma, uncomplicated; R55 Syncope and collapse; F41.9 Anxiety disorder, unspecified
CPT/HCPCS: 36415; 51702; 70371; 70450; 71045; 71275; 72170; 74177; 80048; 80053; 80061; 81001; 82150; 82803; 83605; 83690; 83735; 83880; 84100; 84145; 84484; 85007; 85025; 87040; 87070; 87205; 87899; 92610; 92611; 93005; 93306; 93308; 93458; 94640; 94761; 97116; 97162; 97166; 97530; 99152; 99285; C1725; C1760; C1769; C9803; J0456; J0696; J1644; J2405; Q9967; U0003; U0005

== ENCOUNTER → 2023-03-13 13:31 | Outpatient (CLI) | payer MEDICARE, OTHER, SELFPAY | PROVIDERS: PCP Family Medicine; Visit Provider Physician Assistant | DX: J45.901 Unspecified asthma with (acute) exacerbation (principal); I50.1 Left ventricular failure, unspecified | CPT/HCPCS: 93308 ==

== ENCOUNTER 2023-03-19 14:09 | Emergency (ER) | payer MEDICARE, OTHER, SELFPAY ==
[2023-03-19 14:22] VITALS: BP 137/70; PULSE 81; RESP 20; TEMP 36.7; O2SAT 96; BMI 45.4
[2023-03-19 14:28] LABS: Microscopic, Urine URINE MICROSCOPIC (MICROSCOPIC)
[2023-03-19 14:31] VITALS: BP 135/66; PULSE 80; RESP 22; O2SAT 94
[2023-03-19 14:49] LABS: Appearance,Urine CLEAR (Clear); Blood, Urine Negative (Negative); Color,Urine YELLOW (Yellow); Glucose,Urine (UA) Negative (Negative); Ketones,Urine Negative (Negative); Leukocyte Esterase,Urine Negative (Negative); Nitrate,Urine Negative (Negative); Protein,Urine Negative (Negative); Specific Gravity, Urine 1.015 (1.005-1.030)
--- NOTE | 2023-03-19 14:50 | HMH.EDUROGF ---
Discharge Plan Disposition Patient Disposition: Home, Self-Care Prescriptions Prescriptions: New ciprofloxacin HCl [Cipro] 500 mg tablet 500 mg PO BID Qty: 6 0RF No Action aspirin [Adult Low Dose Aspirin] 81 mg tablet,delayed release (DR/EC) 81 mg PO DAILY cholecalciferol (vitamin D3) 50 mcg (2,000 unit) capsule 50 mcg PO DAILY calcium carbonate-vitamin D3 [Oyster Shell Calcium-Vit D3] 500 mg-5 mcg (200 unit) tablet 1 tab PO DAILY cetirizine 10 mg tablet 10 mg PO DAILY topiramate 50 mg tablet 100 mg PO BID Qty: 360 3RF omeprazole 40 mg capsule,delayed release(DR/EC) 40 mg PO DAILY montelukast 10 mg tablet 10 mg PO PM Trelegy Ellipta 200-62.5-25 mcg blister with device 1 inh inhalation DAILY atorvastatin 40 mg tablet 40 mg PO HS carvedilol 3.125 mg tablet 3.125 mg PO BID Qty: 60 5RF Entresto 24-26 mg tablet 1 tab PO BID Qty: 60 3RF furosemide [Lasix] 40 mg tablet 40 mg PO BID Qty: 60 5RF Rx Instructions: TAke 40 mg in am Take 40 mg @ 3pm spironolactone 25 mg tablet 25 mg PO BID Qty: 60 3RF albuterol sulfate 108 HFA aerosol inhaler 2 puff INHALATION Q4HP PRN (Reason: Shortness Of Breath Or Wheezing) famotidine 20 mg tablet 20 mg PO DAILY prochlorperazine maleate 10 mg tablet 10 mg PO TIDP PRN (Reason: Nausea And Vomiting) tramadol 50 mg tablet 50 mg PO TIDP PRN (Reason: Pain) cholecalciferol (vitamin D3) 50 mcg (2,000 unit) tablet 50 mcg PO DAILY moxifloxacin 400 mg tablet 400 mg PO DAILY Qty: 5 0RF ipratropium-albuterol 0.5 mg-3 mg(2.5 mg base)/3 mL Solution For Nebulization 3 ml inhalation Q6HP PRN (Reason: Shortness Of Breath Or Wheezin) Qty: 270 0RF tramadol 50 mg tablet 50 mg PO TID PRN (Reason: pain) Qty: 20 0RF Referrals Follow up/Referrals: Manas Jenkins MD [Primary Care Provider] - See instructions Instructions Patient Instructions: DI for Urinary Tract Infection (UTI), DI for Urinary Tract Infection in Children Discharge ED Provider: Colten Eagle Female Urogenital HPI General Chief complaint: Urogenital-Female Stated complaint: Back pain, trouble urinating, possible UTI Time Seen by Provider: 03/19/23 14:30 Mode of Arrival: Ambulatory Source of Information: Patient Limitations: No Limitations Description of Symptoms (Recalled from ER Triage Doc. by RN): pt to ed c/o lower back pain and urinary urgency. pt reports a hx of uti and reports this feels similar. History of Present Illness HPI Narrative: 62-year-old obese white female with multiple urinary tract infections has developed low back pain and dysuria once again. She is allergic to amoxicillin Related Data Home Medications Medication Instructions Recorded Confirmed aspirin 81 mg tablet,delayed 81 mg PO DAILY Heart disease 01/07/18 03/06/23 release (Adult Low Dose Aspirin) albuterol sulfate 90 mcg/actuation 2 puff inhalation Q4HP PRN 11/22/18 03/06/23 aerosol inhaler Shortness Of Breath Or Wheezing omeprazole 40 mg capsule,delayed 40 mg PO DAILY Acid reflux 04/01/19 03/06/23 release atorvastatin 40 mg tablet 40 mg PO HS Cholesterol 07/22/22 03/06/23 fluticasone fur. 200 mcg-umeclid 1 inh inhalation DAILY Breathing 07/22/22 03/06/23 62.5 mcg-vilant 25 mcg problems inhalat.powder (Trelegy Ellipta) montelukast 10 mg tablet 10 mg PO PM Allergy symptoms 07/22/22 03/06/23 calcium carbonate 500 mg-vitamin 1 tab PO DAILY Supplement 09/23/22 03/06/23 D3 5 mcg (200 unit) tablet (Oyster Shell Calcium-Vitamin D3) famotidine 20 mg tablet 20 mg PO DAILY Acid reflux 12/10/22 03/06/23 cetirizine 10 mg tablet 10 mg PO DAILY Allergy symptoms 12/19/22 03/06/23 cholecalciferol (vitamin D3) 50 50 mcg PO DAILY Supplement 02/21/23 03/06/23 mcg (2,000 unit) tablet prochlorperazine maleate 10 mg 10 mg PO TIDP PRN Nausea And 02/21/23 03/06/23 tablet Vomiting tramadol 50 mg tablet 50 mg P
[2023-03-19 14:57] LABS: Bilirubin,Urine 1+ (Negative)
[2023-03-19 15:01] VITALS: BP 142/70; PULSE 79; O2SAT 93
[2023-03-19 15:09] LABS: RBC,Urine Occasional #/hpf (0-3); Squamous Epithelial Cell,Urine TNTC #/hpf (0-5); WBC,Urine Occasional #/hpf (0-3)
[2023-03-19 15:10] LABS: Bacteria,Urine 2+ /lpf
[2023-03-19 16:15] VITALS: BP 127/51; PULSE 87; RESP 18; TEMP 36.7; O2SAT 94
== END 2023-03-19 16:21 | disposition home or self-care (01) ==
PROVIDERS: Emergency Provider Emergency Medicine; PCP Family Medicine
DX: R82.71 Bacteriuria (principal)
CPT/HCPCS: 81001; 87086; 87088; 87186; 99283; 99284

== ENCOUNTER 2023-04-18 12:34 | Outpatient (CLI) | payer MEDICARE, MEDICAID, SELFPAY ==
[2023-04-18 12:53] VITALS: BP 98/57; PULSE 64; RESP 20; TEMP 36.4; O2SAT 95
== END 2023-04-18 13:26 | disposition home or self-care (01) ==
PROVIDERS: PCP Family Medicine; Visit Provider Family Medicine
DX: N30.90 Cystitis, unspecified without hematuria (principal); Z16.12 Extended spectrum beta lactamase (ESBL) resistance
CPT/HCPCS: 96372; J1335

== ENCOUNTER 2023-04-23 13:38 | Outpatient (CLI) | payer MEDICARE, MEDICAID, SELFPAY ==
[2023-04-23 13:40] VITALS: BP 99/49; PULSE 78; RESP 18; O2SAT 98
== END 2023-04-23 14:00 | disposition home or self-care (01) ==
LOC: INF 13:39
PROVIDERS: PCP Family Medicine; Visit Provider Family Medicine
DX: N30.80 Other cystitis without hematuria (principal); Z16.12 Extended spectrum beta lactamase (ESBL) resistance
CPT/HCPCS: 96372; J1335

== ENCOUNTER 2023-04-24 13:25 | Outpatient (CLI) | payer MEDICARE, MEDICAID, SELFPAY ==
[2023-04-24 13:50] VITALS: BP 95/64; PULSE 80; RESP 20; TEMP 36.6; O2SAT 93
== END 2023-04-24 14:08 | disposition home or self-care (01) ==
LOC: INF 13:25
PROVIDERS: PCP Family Medicine; Visit Provider Family Medicine
DX: N30.80 Other cystitis without hematuria (principal); Z16.12 Extended spectrum beta lactamase (ESBL) resistance
CPT/HCPCS: 96372; J1335

== ENCOUNTER 2023-06-07 18:26 | Emergency (ER) | payer MEDICARE, MEDICAID, SELFPAY ==
--- NOTE | 2023-06-07 18:45 | PC.NURSE ---
ER MD Meeks at
[2023-06-07 18:49] VITALS: BP 110/64; PULSE 86; RESP 20; TEMP 36.8; O2SAT 96; BMI 41.9
--- NOTE | 2023-06-07 18:50 | CT_ITS ---
PROCEDURE INFORMATION: Exam: CT Abdomen And Pelvis With Contrast Exam date and time: 06/07/2023 8:35 PM Age: 62 years old Clinical indication: Abdominal pain; Epigastric; Additional info: Diffuse abd pain and tenderness TECHNIQUE: Imaging protocol: Computed tomography of the abdomen and pelvis with contrast. Radiation optimization: All CT scans at this facility use at least one of these dose optimization techniques: automated exposure control; mA and/or kV adjustment per patient size (includes targeted exams where dose is matched to clinical indication); or iterative reconstruction. Contrast material: ISOVUE; Contrast volume: 75 ml; Contrast route: IV; REPORTING DATA: Count of CT and Cardiac NM exams in prior 12 months: This patient has received 8 known [address]s and 0 known cardiac nuclear medicine studies in the 12 months prior to the current study. COMPARISON: CT ABDOMEN PELVIS W CON 02/21/2023 4:33 AM FINDINGS: Diaphragm: Elevated left hemidiaphragm. Left basilar subsegmental atelectasis. Liver: Scattered calcified hepatic granulomata. Mild fatty liver infiltration. Gallbladder and bile ducts: Surgically absent. Pancreas: Normal. No ductal dilation. Spleen: Scattered calcified splenic granulomata. Adrenal glands: Normal. No mass. Kidneys and ureters: Normal. No hydronephrosis. Stomach and bowel: Unremarkable. No obstruction. No mucosal thickening. Appendix: No evidence of appendicitis. Intraperitoneal space: Unremarkable. No free air. No significant fluid collection. Vasculature: Unremarkable. No abdominal aortic aneurysm. Lymph nodes: Unremarkable. No enlarged lymph nodes. Urinary bladder: Unremarkable as visualized. Reproductive: Surgically absent uterus. Ovaries not visualized. Bones/joints: Chronic L2 on L3 degenerative grade 1 retrolisthesis. Vertebral body heights grossly maintained. Soft tissues: Unremarkable. IMPRESSION: Fatty liver infiltration. Otherwise, grossly study.
--- NOTE | 2023-06-07 18:51 | HMH.EDGENADL ---
Discharge Plan Disposition Patient Disposition: Home, Self-Care Prescriptions Prescriptions: No Action aspirin [Adult Low Dose Aspirin] 81 mg tablet,delayed release (DR/EC) 81 mg PO DAILY cholecalciferol (vitamin D3) 50 mcg (2,000 unit) capsule 50 mcg PO DAILY calcium carbonate-vitamin D3 [Oyster Shell Calcium-Vit D3] 500 mg-5 mcg (200 unit) tablet 1 tab PO DAILY cetirizine 10 mg tablet 10 mg PO DAILY topiramate 50 mg tablet 100 mg PO BID Qty: 360 3RF omeprazole 40 mg capsule,delayed release(DR/EC) 40 mg PO DAILY montelukast 10 mg tablet 10 mg PO PM Trelegy Ellipta 200-62.5-25 mcg blister with device 1 inh inhalation DAILY atorvastatin 40 mg tablet 40 mg PO HS albuterol sulfate 108 HFA aerosol inhaler 2 puff INHALATION Q4HP PRN (Reason: Shortness Of Breath Or Wheezing) famotidine 20 mg tablet 20 mg PO DAILY prochlorperazine maleate 10 mg tablet 10 mg PO TIDP PRN (Reason: Nausea And Vomiting) cholecalciferol (vitamin D3) 50 mcg (2,000 unit) tablet 50 mcg PO DAILY tramadol 50 mg tablet 50 mg PO TID PRN (Reason: pain) Qty: 20 0RF furosemide [Lasix] 40 mg tablet 40 mg PO BID Rx Instructions: TAke 40 mg in am Take 40 mg @ 3pm spironolactone 25 mg tablet 25 mg PO BID carvedilol 3.125 mg tablet 3.125 mg PO BID Entresto 24-26 mg tablet 1 tab PO BID Referrals Follow up/Referrals: Manas Jenkins MD [Primary Care Provider] - See instructions Activity Restrictions/Add. Instructions Additional Instructions/Restrictions: Your emergency evaluation did not demonstrate any acute emergent abdominal pathology that requires surgery or inpatient admission. Please follow-up with your primary care doctor and return to the emergency department significant worsening of your symptoms. Clinical Impressions Clinical Impression: Abdominal pain, diffuse Instructions Patient Instructions: DI for Acute Abdominal Pain Discharge ED Provider: Jaz Meeks General Adult HPI General Chief complaint: Abdominal Pain Stated complaint: abd pain Time Seen by Provider: 06/07/23 18:44 History of Present Illness HPI narrative: Patient is a 62-year-old female presenting with diffuse abdominal pain. States this morning she had a low bit of bilateral hip pain which is chronic for her and she took some ibuprofen and subsequently developed some pain that she is attributing to the taking of the ibuprofen which she took without any medication. However she states that her pain is diffuse no nausea vomiting no bowel symptoms no urinary symptoms. And the pain is severe at the moment. Related Data Home Medications Medication Instructions Recorded Confirmed aspirin 81 mg tablet,delayed 81 mg PO DAILY Heart disease 01/07/18 05/26/23 release (Adult Low Dose Aspirin) albuterol sulfate 90 mcg/actuation 2 puff inhalation Q4HP PRN 11/22/18 05/26/23 aerosol inhaler Shortness Of Breath Or Wheezing omeprazole 40 mg capsule,delayed 40 mg PO DAILY Acid reflux 04/01/19 05/26/23 release atorvastatin 40 mg tablet 40 mg PO HS Cholesterol 07/22/22 05/26/23 fluticasone fur. 200 mcg-umeclid 1 inh inhalation DAILY Breathing 07/22/22 05/26/23 62.5 mcg-vilant 25 mcg problems inhalat.powder (Trelegy Ellipta) montelukast 10 mg tablet 10 mg PO PM Allergy symptoms 07/22/22 05/26/23 calcium carbonate 500 mg-vitamin 1 tab PO DAILY Supplement 09/23/22 05/26/23 D3 5 mcg (200 unit) tablet (Oyster Shell Calcium-Vitamin D3) famotidine 20 mg tablet 20 mg PO DAILY Acid reflux 12/10/22 05/26/23 cetirizine 10 mg tablet 10 mg PO DAILY Allergy symptoms 12/19/22 05/26/23 cholecalciferol (vitamin D3) 50 50 mcg PO DAILY Supplement 02/21/23 05/26/23 mcg (2,000 unit) tablet prochlorperazine maleate 10 mg 10 mg PO TIDP PRN Nausea And 02/21/23 05/26/23 tablet Vomiting cholecalciferol (vitamin D3) 50 50 mcg PO DAILY Supplement 03/06/23
[2023-06-07 19:44] LABS: Microscopic, Urine URINE MICROSCOPIC (MICROSCOPIC)
[2023-06-07 19:47] LABS: Appearance,Urine CLEAR (Clear); Bilirubin,Urine Negative (Negative); Blood, Urine TRACE-I (Negative); Color,Urine YELLOW (Yellow); Glucose,Urine (UA) Negative (Negative); Ketones,Urine Negative (Negative); Leukocyte Esterase,Urine Negative (Negative); Nitrate,Urine Negative (Negative); PH,Urine 5.5 (5.0-8.5); Protein,Urine Negative (Negative); Urobilinogen,Urine 0.2 EU/dl (0.2)
[2023-06-07 19:48] LABS: Basophils # 0.1 K/mm3 (0-0.2); Basophils % 0.8 % (0.1-2.0); Eosinophils # 0.1 K/mm3 (0.0-0.4); Eosinophils % 0.6 % (0.1-12.0); Hematocrit 44.1 % (37.0-47.0); Lymphocytes # 2.5 K/mm3 (0.7-4.5); Lymphocytes % 18.6 % (10-50); Mean Corpuscular HGB Conc 31.7 g/dL (31.8-35.4); Mean Corpuscular Hemoglobin 28.9 pg (27.0-31.2); Mean Corpuscular Volume 91.2 fl (81-99); Mean Platelet Volume 8.9 fl (7.4-10.4); Monocytes # 0.7 K/mm3 (0.1-1.0); Monocytes % 4.9 % (1.7-9.3); Neutrophils # 10.2 K/mm3 (1.8-7.8); Neutrophils % 75.2 % (37.0-80.0); Platelet Count 455 K/mm3 (142-424); Red Blood Count 4.84 M/mm3 (4.20-5.40); Red Cell Distribution Width 17.3 % (11.5-17.5); White Blood Count 13.6 K/mm3 (4.8-10.8)
[2023-06-07 19:49] LABS: Chloride 103 mmol/L (98-107); Potassium 3.6 mmoL/L (3.5-5.1); Sodium 141 mmol/L (136-145)
[2023-06-07 19:51] LABS: Alanine Aminotransferase 19 U/L (12-78); Alkaline Phosphatase 130 U/L (38-126); Anion Gap 17.6 mEq/L (5-15); Aspartate Amino Transferase 24 U/L (14-36); Bilirubin,Total 0.6 mg/dl (0.2-1.3); Blood Urea Nitrogen 17 mg/dl (7-17); Carbon Dioxide 24 mmol/L (22.0-30.0); Creatinine Clearance Estimated 52 mL/min (50-200); Estimated Glomerular Filt Rate 56 ml/min (>60); GFR (African American) 68 ML/MIN (>60); Lipase 131 U/L (23-300)
[2023-06-07 19:52] LABS: Albumin Level 4.3 g/dl (3.5-5.0); Albumin/Globulin Ratio 1.1 (1.1-1.8); Calcium 8.8 mg/dl (8.4-10.2); Glucose 119 mg/dl (74-100); Lactic Acid 1.3 mmol/L (0.7-2.1); Total Protein,Serum 8.3 g/dl (6.3-8.2)
[2023-06-07 20:06] LABS: Bacteria,Urine Trace /lpf; Yeast,Urine Occasional /lpf
[2023-06-07 20:24] VITALS: BP 115/70; PULSE 78; O2SAT 95
--- NOTE | 2023-06-07 20:24 | PC.NURSE ---
Rounded on pt. Pt advised she was starting to have some pain again. MD made aware.
--- NOTE | 2023-06-07 20:28 | PC.NURSE ---
Pt gone to RAD for CT
--- NOTE | 2023-06-07 20:55 | PC.NURSE ---
Pt returned from RAD
[2023-06-07 21:00] VITALS: BP 132/77; PULSE 81; O2SAT 97
--- NOTE | 2023-06-07 21:13 | PC.NURSE ---
Dr. Meeks at [facility]
[2023-06-07 21:17] VITALS: BP 192/77; PULSE 66; RESP 18; TEMP 36.7; O2SAT 97
== END 2023-06-07 21:21 | disposition home or self-care (01) ==
PROVIDERS: Emergency Provider Student in an Organized Health Care Education/Training Program; PCP Family Medicine
DX: R10.9 Unspecified abdominal pain (principal); M25.551 Pain in right hip; M25.552 Pain in left hip; I10 Essential (primary) hypertension; E78.5 Hyperlipidemia, unspecified; G47.33 Obstructive sleep apnea (adult) (pediatric); J45.909 Unspecified asthma, uncomplicated; K21.9 Gastro-esophageal reflux disease without esophagitis
CPT/HCPCS: 74177; 80053; 81001; 83605; 83690; 85025; 96361; 96374; 96375; 99285; J2405; Q9967

== ENCOUNTER → 2023-06-13 12:26 | Outpatient (CLI) | payer MEDICARE, MEDICAID, SELFPAY ==
--- NOTE | 2023-06-13 13:16 | CT_ITS ---
FINAL REPORT TECHNIQUE: Thin section axial images were obtained from the lung apices through the upper abdomen without contrast. This study was performed with techniques to keep radiation doses as low as reasonably achievable (ALARA). Individualized dose reduction techniques using automated exposure control or adjustment of mA and/or kV according to the patient's size were employed. CLINICAL HISTORY: pulmonary nodule COMPARISON: 02/21/2023 FINDINGS: There is no mediastinal, hilar, or axillary lymphadenopathy. No pleural or pericardial effusion. There is an elevated left hemidiaphragm. There is lingular and left lower lobe atelectasis. There is a subpleural right upper lobe 5 mm nodule well seen on image 40. This was likely obscured on the prior exam by pneumonia.. Limited, unenhanced evaluation of the upper abdomen is without acute abnormality. There is no acute osseous abnormality. IMPRESSION: Subpleural right upper lobe nodule. Follow-up after risk stratification per Fleischner criteria. Reviewed, Interpreted and Dictated by Lakesha Henriquez MD Transcribed by Radha Melendrez Authenticated and [facility]
--- NOTE | 2023-06-13 13:51 | PC.NURSE ---
Multiple attempts at PFT, pt unable to perform. Dr Gary's office made aware.
== END ==
PROVIDERS: PCP Family Medicine; Visit Provider Internal Medicine Pulmonary Disease
DX: R06.2 Wheezing (principal); R59.0 Localized enlarged lymph nodes
CPT/HCPCS: 71250; 93306

== ENCOUNTER 2023-07-08 13:01 | Emergency (ER) | payer MEDICARE, MEDICAID, SELFPAY ==
[2023-07-08 13:11] VITALS: BP 117/69; PULSE 86; RESP 19; TEMP 36.9; O2SAT 93; BMI 42.4
--- NOTE | 2023-07-08 13:45 | HMH.EDGENADL ---
Discharge Plan Disposition Patient Disposition: Home, Self-Care Condition: Good Prescriptions Prescriptions: New permethrin 5 % cream 1 applic topical Q14D Qty: 60 0RF Rx Instructions: apply second treatment 14 days after first treatment if live lice remain hydroxyzine HCl 25 mg tablet 25 mg PO Q8H PRN (Reason: itching) Qty: 10 0RF No Action aspirin [Adult Low Dose Aspirin] 81 mg tablet,delayed release (DR/EC) 81 mg PO DAILY cholecalciferol (vitamin D3) 50 mcg (2,000 unit) capsule 50 mcg PO DAILY calcium carbonate-vitamin D3 [Oyster Shell Calcium-Vit D3] 500 mg-5 mcg (200 unit) tablet 1 tab PO DAILY cetirizine 10 mg tablet 10 mg PO DAILY Trelegy Ellipta 100-62.5-25 mcg blister with device 1 inh inhalation DAILY 90 Days Qty: 90 3RF albuterol sulfate [Ventolin HFA] 90 mcg/actuation HFA aerosol inhaler 2 inh inhalation Q6H PRN (Reason: shortness of breath or wheezing) 90 Days Qty: 18 3RF ipratropium-albuterol 0.5 mg-3 mg(2.5 mg base)/3 mL solution for nebulization 3 ml inhalation Q6H PRN (Reason: shortness of breath or wheezing) Qty: 90 3RF omeprazole 40 mg capsule,delayed release(DR/EC) 40 mg PO DAILY montelukast 10 mg tablet 10 mg PO PM atorvastatin 40 mg tablet 40 mg PO HS topiramate 50 mg tablet 100 mg PO BID Qty: 360 3RF albuterol sulfate 108 HFA aerosol inhaler 2 puff INHALATION Q4HP PRN (Reason: Shortness Of Breath Or Wheezing) famotidine 20 mg tablet 20 mg PO DAILY prochlorperazine maleate 10 mg tablet 10 mg PO TIDP PRN (Reason: Nausea And Vomiting) cholecalciferol (vitamin D3) 50 mcg (2,000 unit) tablet 50 mcg PO DAILY tramadol 50 mg tablet 50 mg PO TID PRN (Reason: pain) Qty: 20 0RF furosemide [Lasix] 40 mg tablet 40 mg PO BID Rx Instructions: TAke 40 mg in am Take 40 mg @ 3pm spironolactone 25 mg tablet 25 mg PO BID carvedilol 3.125 mg tablet 3.125 mg PO BID Entresto 24-26 mg tablet 1 tab PO BID ondansetron 4 mg tablet,disintegrating 4 mg PO Q6H PRN (Reason: nausea and vomiting) 5 Days Qty: 20 0RF Referrals Follow up/Referrals: Manas Jenkins MD [Primary Care Provider] - See instructions Activity Restrictions/Add. Instructions Additional Instructions/Restrictions: Wash all clothes, bedding, and towels that you and others in your household used in the 3 days before you started treatment. Use hot water, and use the hot cycle in the dryer. Another option is to dry-clean these items. Or seal them (including any stuffed animals) in a plastic bag for 3 days.On the day you start treatment, vacuum the room or rooms used by anyone who had scabies.An oral antihistamine may help stop itching. You also can use a non-prescription anti-itch cream. Read and follow all instructions on the label.Do not have physical contact with other people or let anyone use your personal items until you have finished treatment. Do not use other people's personal items until your treatment is done. Tell people with whom you have sexual or close contact that they will likely need treatment. Follow up with your primary care provider for reassessment. Clinical Impressions Clinical Impression: Scabies Instructions Patient Instructions: DI for Scabies Discharge ED Provider: Maribell Leggett General Adult HPI General Chief complaint: Skin/Abscess/Foreign Body Stated complaint: bilateral leg rash Time Seen by Provider: 07/08/23 13:18 Mode of Arrival: Ambulatory Source of Information: Patient Limitations: No Limitations Description of Symptoms (Recalled from ER Triage Doc. by RN): 63 yo F presents to ED with c/o bilateral leg rash. small red dots all over pts leg. pt reports lower legs and upper thigh are affected. symptoms ongoing for a couple of days. History of Present Illness HPI narrative: This patient is a 63-year-old female presented to the emergency department for ev
[2023-07-08 14:06] VITALS: BP 117/51; PULSE 84; RESP 18; TEMP 36.9; O2SAT 95
== END 2023-07-08 14:12 | disposition home or self-care (01) ==
PROVIDERS: Emergency Provider Emergency Medicine; PCP Family Medicine
DX: B86 Scabies (principal); K21.9 Gastro-esophageal reflux disease without esophagitis; J45.909 Unspecified asthma, uncomplicated; I10 Essential (primary) hypertension; E78.5 Hyperlipidemia, unspecified; G47.33 Obstructive sleep apnea (adult) (pediatric); Z87.891 Personal history of nicotine dependence
CPT/HCPCS: 99283

== ENCOUNTER 2023-08-25 14:38 | Emergency (ER) | payer MEDICARE, OTHER, SELFPAY ==
[2023-08-25 14:39] VITALS: BP 100/53; PULSE 74; RESP 18; TEMP 36.7; O2SAT 95; BMI 40.2
--- NOTE | 2023-08-25 15:15 | CT_ITS ---
FINAL REPORT CLINICAL HISTORY: R flank pain rad around R side, dysuria,R sciatica FINDINGS: Axial imaging of the lumbar spine was obtained without contrast. Sagittal and coronal reformatted images were also obtained and reviewed.This study was performed with techniques to keep radiation doses as low as reasonably achievable (ALARA). Individualized dose reduction techniques using automated exposure control or adjustment of mA and/or kV according to the patient's size were employed. There is no fracture. There are moderate degenerative changes. There is mild retrolisthesis of L2 on L3 and L3 on L4. There is vacuum phenomenon at several levels. There is no evidence of significant central canal stenosis. T12-L1: An annular bulge is present. There is no significant central canal stenosis or neuroforaminal narrowing. L1-2: There is an annular disc bulge with facet arthropathy and vertebral osteophytes. There is mild bilateral neuroforaminal narrowing. L2-3: There is an annular disc bulge with facet arthropathy and vertebral osteophytes. There is moderate bilateral neuroforaminal narrowing. L3-4: There is an annular disc bulge with facet arthropathy and vertebral osteophytes. There is severe right and moderate left neuroforaminal narrowing. L4-5: There is an annular disc bulge with facet arthropathy and vertebral osteophytes. There is moderate bilateral neuroforaminal narrowing. L5-S1: An annular disc bulge with facet arthropathy is present. There is no significant central canal stenosis or neuroforaminal narrowing. IMPRESSION: Multilevel degenerative change without acute bony abnormality. Reviewed, Interpreted and Dictated by Neal Penny III, MD Transcribed by Lindsey Landa Authenticated and [facility]
--- NOTE | 2023-08-25 15:15 | CT_ITS ---
FINAL REPORT CLINICAL HISTORY: R flank pain rad around R side, dysuria,R sciatica COMPARISON: 06/07/2023 FINDINGS: Axial CT images of the abdomen and pelvis were obtained without intravenous contrast. Coronal reformatted images were also obtained.This study was performed with techniques to keep radiation doses as low as reasonably achievable (ALARA). Individualized dose reduction techniques using automated exposure control or adjustment of mA and/or kV according to the patient's size were employed. Abdomen: There is elevation of the right hemidiaphragm with lung base atelectasis. There is no evidence of renal stone or hydronephrosis. The patient is status postcholecystectomy. The liver, spleen and pancreas have an unremarkable, unenhanced appearance. No mass or adenopathy is seen. No inflammatory process is identified. Pelvis: Images of the pelvis reveal no evidence of ureteral dilation or ureteral stone. There is a moderate to large amount of retained stool. There is descending and sigmoid diverticulosis. The patient is status post hysterectomy. The appendix is not visualized. No mass or abnormal fluid collection is identified. IMPRESSION: No renal or ureteral stone, or hydronephrosis. Moderate to large amount of retained stool. Reviewed, Interpreted and Dictated by Neal Penny III, MD Transcribed by Lindsey Landa Authenticated and [facility]
[2023-08-25 15:30] LABS: Basophils # 0.1 K/mm3 (0-0.2); Basophils % 0.9 % (0.1-2.0); Eosinophils # 0.2 K/mm3 (0.0-0.4); Eosinophils % 2.3 % (0.1-12.0); Hematocrit 41.4 % (37.0-47.0); Hemoglobin 12.5 g/dL (12.2-16.2); Lymphocytes # 1.9 K/mm3 (0.7-4.5); Lymphocytes % 18.9 % (10-50); Mean Corpuscular HGB Conc 30.1 g/dL (31.8-35.4); Mean Corpuscular Hemoglobin 29.7 pg (27.0-31.2); Mean Corpuscular Volume 98.5 fl (81-99); Mean Platelet Volume 9.2 fl (7.4-10.4); Monocytes # 0.4 K/mm3 (0.1-1.0); Monocytes % 4.3 % (1.7-9.3); Neutrophils # 7.5 K/mm3 (1.8-7.8); Neutrophils % 73.6 % (37.0-80.0); Platelet Count 401 K/mm3 (142-424); Red Cell Distribution Width 17.5 % (11.5-17.5); White Blood Count 10.2 K/mm3 (4.8-10.8)
--- NOTE | 2023-08-25 15:41 | HMH.EDGENADL ---
Discharge Plan Disposition Patient Disposition: Home, Self-Care Condition: Good Prescriptions Prescriptions: New polyethylene glycol 3350 [Miralax] 17 gram/dose powder 17 g PO DAILY 4 Days Qty: 68 0RF Ex-Lax (sennosides) 15 mg tablet 15 mg PO DAILY Qty: 30 0RF lidocaine [Lidoderm] 5 % adhesive patch,medicated 1 patch topical DAILY Qty: 15 0RF Rx Instructions: leave on most painful area for up to 12 hrs No Action aspirin [Adult Low Dose Aspirin] 81 mg tablet,delayed release (DR/EC) 81 mg PO DAILY cholecalciferol (vitamin D3) 50 mcg (2,000 unit) capsule 50 mcg PO DAILY Trelegy Ellipta 100-62.5-25 mcg blister with device 1 inh inhalation DAILY 90 Days Qty: 90 3RF albuterol sulfate [Ventolin HFA] 90 mcg/actuation HFA aerosol inhaler 2 inh inhalation Q6H PRN (Reason: shortness of breath or wheezing) 90 Days Qty: 18 3RF omeprazole 40 mg capsule,delayed release(DR/EC) 40 mg PO DAILY montelukast 10 mg tablet 10 mg PO PM atorvastatin 40 mg tablet 40 mg PO HS hydroxyzine HCl 25 mg tablet 25 mg PO Q8H PRN (Reason: itching) lorazepam 0.5 mg tablet 0.5 mg PO PRN duloxetine 60 mg capsule,delayed release(DR/EC) 60 mg PO DAILY topiramate 100 mg tablet 100 mg PO BID MDD 200 mg Qty: 60 6RF spironolactone 25 mg tablet See Rx Instructions .ROUTE .COMPLEX Qty: 60 5RF Dose Instruction: TAKE 1 TABLET BY MOUTH TWICE A DAY Rx Instructions: TAKE 1 TABLET BY MOUTH TWICE A DAY Entresto 24-26 mg tablet See Rx Instructions .ROUTE .COMPLEX Qty: 60 5RF Dose Instruction: TAKE 1 TABLET BY MOUTH TWICE A DAY Rx Instructions: TAKE 1 TABLET BY MOUTH TWICE A DAY famotidine 20 mg tablet See Rx Instructions .ROUTE .COMPLEX Qty: 60 2RF Dose Instruction: TAKE 1 TABLET BY MOUTH 2 TIMES A DAY Rx Instructions: TAKE 1 TABLET BY MOUTH 2 TIMES A DAY tramadol 50 mg tablet 50 mg PO TID PRN (Reason: pain) Qty: 20 0RF furosemide [Lasix] 40 mg tablet 40 mg PO BID Rx Instructions: TAke 40 mg in am Take 40 mg @ 3pm carvedilol 3.125 mg tablet 3.125 mg PO BID Referrals Follow up/Referrals: Manas Jenkins MD [Primary Care Provider] - See instructions Activity Restrictions/Add. Instructions Additional Instructions/Restrictions: You were evaluated in the emergency department today. Please miner pick your prescriptions at pharmacy and take them as prescribed. Follow-up with your primary care provider over the next 2 days. They can make medication adjustments from there. Return to the emergency department for new symptoms. Clinical Impressions Clinical Impression: Chronic back pain, Constipation Instructions Patient Instructions: DI for Low Back Pain, DI for Constipation, DI for Acute Abdominal Pain Discharge ED Provider: Maribell Leggett General Adult HPI General Chief complaint: Abdominal Pain Stated complaint: back pain Time Seen by Provider: 08/25/23 15:08 Mode of Arrival: Ambulatory Source of Information: Patient Limitations: No Limitations Description of Symptoms (Recalled from ER Triage Doc. by RN): pt has had urinary frequency and burning for 1 week, pt has right flank pain and nausea History of Present Illness HPI narrative: This patient is a 63-year-old female with a history of chronic back pain, CAD, APARNA, lumbar radiculopathy, hypertension, hyperlipidemia, and obesity presenting to the emergency department for evaluation with concern for low back pain that is primarily located at her right flank. It radiates around to her right lower quadrant of her abdomen. She states that it started approximately a week ago and has progressively worsened since then. She also notes that she has had dysuria, urinary frequency, and nausea associated with this. She denies any fevers, vomiting, changes in bowel movements, numbness, tingling, saddle anesthesia, incontinence, retention, or
[2023-08-25 16:01] LABS: Microscopic, Urine URINE MICROSCOPIC (MICROSCOPIC)
[2023-08-25 16:01] LABS: Chloride 101 mmol/L (98-107); Potassium 4.3 mmoL/L (3.5-5.1); Sodium 138 mmol/L (136-145)
[2023-08-25 16:04] LABS: Alanine Aminotransferase 14 U/L (12-78); Albumin Level 3.8 g/dl (3.5-5.0); Albumin/Globulin Ratio 1.2 (1.1-1.8); Alkaline Phosphatase 114 U/L (38-126); Anion Gap 11.3 mEq/L (5-15); Aspartate Amino Transferase 21 U/L (14-36); Bilirubin,Total 0.2 mg/dl (0.2-1.3); Blood Urea Nitrogen 13 mg/dl (7-17); Carbon Dioxide 30 mmol/L (22.0-30.0); Creatinine Clearance Estimated 98 mL/min (50-200); Estimated Glomerular Filt Rate 56 ml/min (>60); GFR (African American) 68 ML/MIN (>60); Globulin 3.1 g/dL (1.3-3.2); Total Protein,Serum 6.9 g/dl (6.3-8.2)
[2023-08-25 16:05] LABS: Calcium 8.5 mg/dl (8.4-10.2); Glucose 112 mg/dl (74-100)
[2023-08-25 16:19] LABS: Appearance,Urine CLEAR (Clear); Bilirubin,Urine Negative (Negative); Blood, Urine Negative (Negative); Color,Urine YELLOW (Yellow); Glucose,Urine (UA) Negative (Negative); Ketones,Urine Negative (Negative); Leukocyte Esterase,Urine TRACE (Negative); Nitrate,Urine Negative (Negative); Protein,Urine Negative (Negative); Urobilinogen,Urine 0.2 EU/dl (0.2)
[2023-08-25 16:27] LABS: Bacteria,Urine Trace /lpf
--- NOTE | 2023-08-25 17:14 | PC.NURSE ---
DR CHURCH AT BEDSIDE TO UPDATE PT
[2023-08-25 17:33] VITALS: BP 123/69; PULSE 75; RESP 18; TEMP 36.6; O2SAT 95
== END 2023-08-25 17:35 | disposition home or self-care (01) ==
PROVIDERS: Emergency Provider Emergency Medicine; PCP Family Medicine
DX: M54.50 Low back pain, unspecified (principal); R10.31 Right lower quadrant pain; G89.29 Other chronic pain; K59.00 Constipation, unspecified; I25.10 Atherosclerotic heart disease of native coronary artery without angina pectoris; G47.33 Obstructive sleep apnea (adult) (pediatric); I10 Essential (primary) hypertension; E78.5 Hyperlipidemia, unspecified; J45.909 Unspecified asthma, uncomplicated; K21.9 Gastro-esophageal reflux disease without esophagitis
CPT/HCPCS: 72131; 74176; 80053; 81001; 85025; 99285

== ENCOUNTER 2023-09-03 15:01 | Emergency (ER) | payer MEDICARE, OTHER, MEDICAID, SELFPAY ==
[2023-09-03] VITALS (7 sets, daily range): BP systolic 92–120; BP diastolic 48–76; PULSE 62–98; RESP 16–18; TEMP 36.8; O2SAT 92–97; BMI 40.2
[2023-09-03 15:16] LABS: Microscopic, Urine URINE MICROSCOPIC (MICROSCOPIC)
[2023-09-03 15:19] LABS: Appearance,Urine CLEAR (Clear); Bilirubin,Urine Negative (Negative); Blood, Urine Negative (Negative); Color,Urine YELLOW (Yellow); Glucose,Urine (UA) Negative (Negative); Ketones,Urine Negative (Negative); Leukocyte Esterase,Urine 1+ (Negative); Nitrate,Urine Negative (Negative); Protein,Urine Negative (Negative); Urobilinogen,Urine 0.2 EU/dl (0.2)
[2023-09-03 15:38] LABS: Bacteria,Urine 1+ /lpf; Squamous Epithelial Cell,Urine Occasional #/hpf (0-5)
--- NOTE | 2023-09-03 15:51 | PC.NURSE ---
Rounded on patient warm blanker and pillow provided call light within reach of patient
--- NOTE | 2023-09-03 15:53 | HMH.EDGENADL ---
Discharge Plan Disposition Patient Disposition: Home, Self-Care Prescriptions Prescriptions: New cefdinir 300 mg capsule 300 mg PO BID 7 Days Qty: 14 0RF No Action aspirin [Adult Low Dose Aspirin] 81 mg tablet,delayed release (DR/EC) 81 mg PO DAILY cholecalciferol (vitamin D3) 50 mcg (2,000 unit) capsule 50 mcg PO DAILY Trelegy Ellipta 100-62.5-25 mcg blister with device 1 inh inhalation DAILY 90 Days Qty: 90 3RF albuterol sulfate [Ventolin HFA] 90 mcg/actuation HFA aerosol inhaler 2 inh inhalation Q6H PRN (Reason: shortness of breath or wheezing) 90 Days Qty: 18 3RF omeprazole 40 mg capsule,delayed release(DR/EC) 40 mg PO DAILY montelukast 10 mg tablet 10 mg PO PM atorvastatin 40 mg tablet 40 mg PO HS hydroxyzine HCl 25 mg tablet 25 mg PO Q8H PRN (Reason: itching) lorazepam 0.5 mg tablet 0.5 mg PO PRN duloxetine 60 mg capsule,delayed release(DR/EC) 60 mg PO DAILY topiramate 100 mg tablet 100 mg PO BID MDD 200 mg Qty: 60 6RF spironolactone 25 mg tablet See Rx Instructions .ROUTE .COMPLEX Qty: 60 5RF Dose Instruction: TAKE 1 TABLET BY MOUTH TWICE A DAY Rx Instructions: TAKE 1 TABLET BY MOUTH TWICE A DAY Entresto 24-26 mg tablet See Rx Instructions .ROUTE .COMPLEX Qty: 60 5RF Dose Instruction: TAKE 1 TABLET BY MOUTH TWICE A DAY Rx Instructions: TAKE 1 TABLET BY MOUTH TWICE A DAY famotidine 20 mg tablet See Rx Instructions .ROUTE .COMPLEX Qty: 60 2RF Dose Instruction: TAKE 1 TABLET BY MOUTH 2 TIMES A DAY Rx Instructions: TAKE 1 TABLET BY MOUTH 2 TIMES A DAY tramadol 50 mg tablet 50 mg PO TID PRN (Reason: pain) Qty: 20 0RF furosemide [Lasix] 40 mg tablet 40 mg PO BID Rx Instructions: TAke 40 mg in am Take 40 mg @ 3pm carvedilol 3.125 mg tablet 3.125 mg PO BID polyethylene glycol 3350 [Miralax] 17 gram/dose powder 17 g PO DAILY 4 Days Qty: 68 0RF Ex-Lax (sennosides) 15 mg tablet 15 mg PO DAILY Qty: 30 0RF lidocaine [Lidoderm] 5 % adhesive patch,medicated 1 patch topical DAILY Qty: 15 0RF Rx Instructions: leave on most painful area for up to 12 hrs Referrals Follow up/Referrals: Manas Jenkins MD [Primary Care Provider] - See instructions Activity Restrictions/Add. Instructions Additional Instructions/Restrictions: Call your family doctor to establish care for this visit to the emergency department and schedule follow-up within 48 hours to ensure improvement. If you have any worsening of your condition or any other concerning signs or symptoms, return to the emergency department or your primary care doctor for further evaluation. Regarding bowel cleanout, 10 capfuls of MiraLAX in 1 bottle of Pedialyte or Gatorade and drink this over the period of 4 hours. You should have large volume bowel movement after that. Clinical Impressions Clinical Impression: UTI (urinary tract infection), Constipation Instructions Patient Instructions: DI for Acute Abdominal Pain Discharge ED Provider: Floyd Morton General Adult HPI General Chief complaint: Abdominal Pain Stated complaint: right side pains Time Seen by Provider: 09/03/23 15:06 Mode of Arrival: Ambulatory Source of Information: Patient Limitations: No Limitations Description of Symptoms (Recalled from ER Triage Doc. by RN): Presents to ED with c/o 09/02 right quadrant pain that started a f ew days ago but had persistantly gotten worse. +Urinary symptoms/diarrhea. -fever/vomiting. Patient reports coming into ER a couple days ago and was diagnosed with constipation. Rx'd Miralax and Ex-lax. History of Present Illness HPI narrative: 63-year-old female history of hypertension, hyperlipidemia, CAD, numerous UTIs, recent diagnosis of constipation presenting with right lower quadrant abdominal pain. Patient states this has been going on for days. She was seen on 08/25 and dischar
[2023-09-03 16:04] LABS: Basophils # 0.1 K/mm3 (0-0.2); Basophils % 0.9 % (0.1-2.0); Eosinophils # 0.1 K/mm3 (0.0-0.4); Eosinophils % 0.7 % (0.1-12.0); Hematocrit 40.2 % (37.0-47.0); Hemoglobin 13.6 g/dL (12.2-16.2); Lymphocytes # 2.1 K/mm3 (0.7-4.5); Mean Corpuscular HGB Conc 33.8 g/dL (31.8-35.4); Mean Corpuscular Volume 94.8 fl (81-99); Mean Platelet Volume 8.9 fl (7.4-10.4); Monocytes # 0.6 K/mm3 (0.1-1.0); Monocytes % 5.4 % (1.7-9.3); Neutrophils # 7.8 K/mm3 (1.8-7.8); Neutrophils % 73.1 % (37.0-80.0); Platelet Count 382 K/mm3 (142-424); Red Blood Count 4.24 M/mm3 (4.20-5.40); Red Cell Distribution Width 17.2 % (11.5-17.5); White Blood Count 10.7 K/mm3 (4.8-10.8)
[2023-09-03 16:09] LABS: Alanine Aminotransferase 17 U/L (12-78); Albumin Level 4.5 g/dl (3.5-5.0); Albumin/Globulin Ratio 1.3 (1.1-1.8); Alkaline Phosphatase 97 U/L (38-126); Anion Gap 13.9 mEq/L (5-15); Aspartate Amino Transferase 28 U/L (14-36); Bilirubin,Total 0.6 mg/dl (0.2-1.3); Blood Urea Nitrogen 8 mg/dl (7-17); Calcium 9.1 mg/dl (8.4-10.2); Carbon Dioxide 27 mmol/L (22.0-30.0); Chloride 100 mmol/L (98-107); Creatinine Clearance Estimated 98 mL/min (50-200); Estimated Glomerular Filt Rate 72 ml/min (>60); GFR (African American) 87 ML/MIN (>60); Globulin 3.6 g/dL (1.3-3.2); Glucose 112 mg/dl (74-100); Lipase 69 U/L (23-300); Potassium 3.9 mmoL/L (3.5-5.1); Sodium 137 mmol/L (136-145); Total Protein,Serum 8.1 g/dl (6.3-8.2)
--- NOTE | 2023-09-03 16:51 | PC.NURSE ---
Rounded on patient and family nothing needed at this time. Call light within reach
--- NOTE | 2023-09-03 18:18 | ECG_ITS ---
APPROVED REPORT Exam: Resting ECG HR:61 bpm ECG Measurements Heart Rate 61 AXES HI 200 P 8 QRSd 111 QRS -42 QT 437 T 3 QTc 439 Conclusion SINUS RHYTHM LEFT AXIS DEVIATION [QRS AXIS < -30] MINIMAL VOLTAGE CRITERIA FOR LVH, CONSIDER NORMAL VARIANT [MEETS CRITERIA IN ONE OF: R(aVL), S(V1), R(V5), R(V5/V6)+S(V1)] POSSIBLE ANTERIOR MYOCARDIAL INFARCTION , PROBABLY OLD [30 ms Q WAVE IN V3/V4, OR R < 0.2 mV IN V4] ABNORMAL ECG UNCONFIRMED REPORT Electronically signed by : Manas Jalloh MD 09/06/2023 11:07:08
--- NOTE | 2023-09-03 18:20 | PC.NURSE ---
Rounded on patient; patient reports chest pain. EKG obtained. Call light within reach of patient
[2023-09-03 19:42] LABS: Troponin I < 0.01 ng/ml (0.00-0.034)
--- NOTE | 2023-09-03 19:53 | PC.NURSE ---
assisted patient to the chair from bed due to back pain.
--- NOTE | 2023-09-11 17:17 | PC.NURSE ---
pt urine culture result on worklist. Notified dr. ruby- reviewed pts chart, states antibiotics pt was d/c on are appropriate no further action needed.
== END 2023-09-03 20:27 | disposition home or self-care (01) ==
PROVIDERS: Emergency Provider Emergency Medicine; PCP Family Medicine
DX: N39.0 Urinary tract infection, site not specified (principal); B96.1 Klebsiella pneumoniae [K. pneumoniae] as the cause of diseases classified elsewhere; K59.00 Constipation, unspecified; R10.31 Right lower quadrant pain; I25.10 Atherosclerotic heart disease of native coronary artery without angina pectoris; I11.9 Hypertensive heart disease without heart failure; E78.5 Hyperlipidemia, unspecified; J45.909 Unspecified asthma, uncomplicated; K21.9 Gastro-esophageal reflux disease without esophagitis; G47.33 Obstructive sleep apnea (adult) (pediatric); M19.09 Primary osteoarthritis, other specified site; Z87.891 Personal history of nicotine dependence
CPT/HCPCS: 36415; 80053; 81001; 83690; 84484; 85025; 87086; 93005; 96374; 96375; 99284; J0131; J0696; J2405

== ENCOUNTER 2023-11-08 14:24 | Emergency (ER) | payer MEDICARE, MEDICAID, SELFPAY ==
[2023-11-08 14:25] VITALS: BP 105/56; PULSE 78; RESP 18; TEMP 36.6; O2SAT 90; BMI 41.5
[2023-11-08 14:51] LABS: Influenza A, PCR Not Detected (NotDetected); Influenza B, PCR Not Detected (NotDetected)
--- NOTE | 2023-11-08 14:57 | XR_ITS ---
PROCEDURE INFORMATION: Exam: XR Chest Exam date and time: 11/08/2023 3:20 PM Age: 63 years old Clinical indication: Wheezing; Additional info: Rll wheezes TECHNIQUE: Imaging protocol: Radiologic exam of the chest. Views: 1 view. COMPARISON: CT CHEST WO CON 06/13/2023 1:22 PM FINDINGS: Lungs: Unremarkable. No consolidation. Pleural spaces: Unremarkable. No pleural effusion. No pneumothorax. Heart/Mediastinum: Unremarkable. No cardiomegaly. Diaphragm: Chronic elevation of the left hemidiaphragm. Bones/joints: Moderate degenerative changes at both glenohumeral joints. IMPRESSION: No acute findings.
[2023-11-08 15:00] VITALS: BP 94/45; PULSE 65; O2SAT 90
--- NOTE | 2023-11-08 15:01 | PC.NURSE ---
DR BUSTOS AT BEDSIDE
--- NOTE | 2023-11-08 15:11 | HMH.EDGENADL ---
Discharge Plan Disposition Patient Disposition: Home, Self-Care Prescriptions Prescriptions: New Paxlovid 300 mg (150 mg x 2)-100 mg tablets,dose pack See Rx Instructions PO .COMPLEX Qty: 30 0RF Rx Instructions: take TWO 150 mg tablets of nirmatrelvir with ONE 100 mg tablet of ritonavir twice daily for 5 days No Action aspirin [Adult Low Dose Aspirin] 81 mg tablet,delayed release (DR/EC) 81 mg PO DAILY cholecalciferol (vitamin D3) 50 mcg (2,000 unit) capsule 50 mcg PO DAILY Trelegy Ellipta 100-62.5-25 mcg blister with device 1 inh inhalation DAILY 90 Days Qty: 90 3RF montelukast 10 mg tablet 10 mg PO PM atorvastatin 40 mg tablet 40 mg PO HS hydroxyzine HCl 25 mg tablet 25 mg PO Q8H PRN (Reason: itching) lorazepam 0.5 mg tablet 0.5 mg PO PRN duloxetine 60 mg capsule,delayed release(DR/EC) 60 mg PO DAILY topiramate 100 mg tablet 100 mg PO BID MDD 200 mg Qty: 60 6RF spironolactone 25 mg tablet See Rx Instructions .ROUTE .COMPLEX Qty: 60 5RF Dose Instruction: TAKE 1 TABLET BY MOUTH TWICE A DAY Rx Instructions: TAKE 1 TABLET BY MOUTH TWICE A DAY Entresto 24-26 mg tablet See Rx Instructions .ROUTE .COMPLEX Qty: 60 5RF Dose Instruction: TAKE 1 TABLET BY MOUTH TWICE A DAY Rx Instructions: TAKE 1 TABLET BY MOUTH TWICE A DAY famotidine 20 mg tablet See Rx Instructions .ROUTE .COMPLEX Qty: 60 2RF Dose Instruction: TAKE 1 TABLET BY MOUTH 2 TIMES A DAY Rx Instructions: TAKE 1 TABLET BY MOUTH 2 TIMES A DAY furosemide 40 mg tablet See Rx Instructions .ROUTE .COMPLEX Qty: 60 4RF Dose Instruction: TAKE 1 TABLET BY MOUTH EACH MORNING TAKE 1 TABLET BY MOUTH @ 3PM Rx Instructions: TAKE 1 TABLET BY MOUTH EACH MORNING TAKE 1 TABLET BY MOUTH @ 3PM carvedilol 3.125 mg tablet See Rx Instructions .ROUTE .COMPLEX Qty: 60 4RF Dose Instruction: TAKE 1 TABLET BY MOUTH TWICE A DAY Rx Instructions: TAKE 1 TABLET BY MOUTH TWICE A DAY albuterol sulfate [Ventolin HFA] 90 mcg/actuation HFA aerosol inhaler 2 inh inhalation Q6H PRN (Reason: shortness of breath or wheezing) 90 Days Qty: 18 3RF omeprazole 40 mg capsule,delayed release(DR/EC) 40 mg PO BID tramadol 50 mg tablet 50 mg PO TID PRN (Reason: pain) Qty: 20 0RF lidocaine [Lidoderm] 5 % adhesive patch,medicated 1 patch topical DAILY Qty: 15 0RF Rx Instructions: leave on most painful area for up to 12 hrs cefdinir 300 mg capsule 300 mg PO BID 7 Days Qty: 14 0RF Referrals Follow up/Referrals: Manas Jenkins MD [Primary Care Provider] - See instructions Activity Restrictions/Add. Instructions Additional Instructions/Restrictions: Call your family doctor to establish care for this visit to the emergency department and schedule follow-up within 48 hours to ensure improvement. If you have any worsening of your condition or any other concerning signs or symptoms, return to the emergency department or your primary care doctor for further evaluation. Paxlovid has been sent to pharmacy, take this as prescribed to combat symptoms. Clinical Impressions Clinical Impression: COVID-19, Bronchitis Discharge ED Provider: Floyd Morton General Adult HPI General Chief complaint: Upper Respiratory Infection Stated complaint: sore throat, lung pain Time Seen by Provider: 11/08/23 14:31 Mode of Arrival: Wheelchair Source of Information: Patient and Spouse Limitations: No Limitations Description of Symptoms (Recalled from ER Triage Doc. by RN): Spouse states the patient has flu like symptoms. Complaint of cough and weakness x 1 week. History of Present Illness HPI narrative: 63-year-old female hypertension, hyperlipidemia,numerous UTIs,, COPD no longer smoking presenting with productive cough. She states that this been going on about a week, started with dry cough, now productive. She states that she is f
[2023-11-08 15:18] LABS: Coronavirus 19, PCR Detected (NotDetected)
[2023-11-08 15:27] LABS: Basophils # 0.1 K/mm3 (0-0.2); Basophils % 1.5 % (0.1-2.0); Eosinophils # 0.1 K/mm3 (0.0-0.4); Eosinophils % 1.2 % (0.1-12.0); Hematocrit 39.1 % (37.0-47.0); Hemoglobin 12.6 g/dL (12.2-16.2); Lymphocytes # 1.6 K/mm3 (0.7-4.5); Lymphocytes % 16.4 % (10-50); Mean Corpuscular HGB Conc 32.3 g/dL (31.8-35.4); Mean Corpuscular Volume 92.8 fl (81-99); Mean Platelet Volume 9.9 fl (7.4-10.4); Monocytes # 0.6 K/mm3 (0.1-1.0); Monocytes % 6.1 % (1.7-9.3); Neutrophils % 74.8 % (37.0-80.0); Platelet Count 367 K/mm3 (142-424); Red Blood Count 4.21 M/mm3 (4.20-5.40); Red Cell Distribution Width 17.8 % (11.5-17.5); White Blood Count 9.4 K/mm3 (4.8-10.8)
--- NOTE | 2023-11-08 15:32 | PC.NURSE ---
rt at bedside
[2023-11-08 15:38] VITALS: PULSE 72; PULSE 74
[2023-11-08 15:39] LABS: Alanine Aminotransferase 21 U/L (12-78); Albumin Level 3.9 g/dl (3.5-5.0); Albumin/Globulin Ratio 1.1 (1.1-1.8); Alkaline Phosphatase 87 U/L (38-126); Anion Gap 9.4 mEq/L (5-15); Aspartate Amino Transferase 34 U/L (14-36); Bilirubin,Total 0.9 mg/dl (0.2-1.3); Blood Urea Nitrogen 15 mg/dl (7-17); Calcium 7.9 mg/dl (8.4-10.2); Carbon Dioxide 31 mmol/L (22.0-30.0); Chloride 99 mmol/L (98-107); Creatinine Clearance Estimated 51 mL/min (50-200); Estimated Glomerular Filt Rate 72 ml/min (>60); GFR (African American) 87 ML/MIN (>60); Globulin 3.6 g/dL (1.3-3.2); Glucose 115 mg/dl (74-100); Potassium 3.4 mmoL/L (3.5-5.1); Sodium 136 mmol/L (136-145); Total Protein,Serum 7.5 g/dl (6.3-8.2)
[2023-11-08 15:56] LABS: Procalcitonin 0.045 ng/mL (0.0-2.0)
[2023-11-08 16:44] VITALS: BP 136/78; PULSE 77; RESP 16; TEMP 37.1; O2SAT 95
== END 2023-11-08 16:45 | disposition home or self-care (01) ==
PROVIDERS: Emergency Medicine; Emergency Provider Emergency Medicine; PCP Family Medicine
DX: U07.1 COVID-19 (principal); J02.9 Acute pharyngitis, unspecified; R53.1 Weakness; J45.909 Unspecified asthma, uncomplicated; I10 Essential (primary) hypertension; E78.5 Hyperlipidemia, unspecified; G47.33 Obstructive sleep apnea (adult) (pediatric)
CPT/HCPCS: 71045; 80053; 84145; 85025; 87636; 99285

== ENCOUNTER 2023-12-17 21:10 | Inpatient (IN) | payer MEDICARE, OTHER, SELFPAY ==
[2023-12-17] VITALS (8 sets, daily range): BP systolic 74–127; BP diastolic 44–83; PULSE 77–100; RESP 15–18; TEMP 37.9; O2SAT 91–100; BMI 36.6
--- NOTE | 2023-12-17 21:35 | ECG_ITS ---
APPROVED REPORT Exam: Resting ECG HR:101 bpm ECG Measurements Heart Rate 101 AXES OH 184 P 34 QRSd 97 QRS -51 QT 329 T 84 QTc 387 Conclusion SINUS TACHYCARDIA LOW QRS VOLTAGE IN PRECORDIAL LEADS [QRS DEFLECTION < 1.0 mV IN CHEST LEADS] PATTERN CONSISTENT WITH PULMONARY DISEASE INCOMPLETE RIGHT BUNDLE BRANCH BLOCK [90+ ms QRS DURATION, TERMINAL R IN V1/V2, 40+ ms S IN I/aVL/V4/V5/V6] LEFT ANTERIOR FASCICULAR BLOCK [QRS AXIS <= -45, QR IN I, RS IN II] NONSPECIFIC T-WAVE ABNORMALITY ABNORMAL ECG WARNING: DATA QUALITY MAY AFFECT INTERPRETATION UNCONFIRMED REPORT Electronically signed by : Manas Jalloh MD 12/19/2023 14:38:41
--- NOTE | 2023-12-17 21:45 | XR_ITS ---
PROCEDURE INFORMATION: Exam: XR Chest Exam date and time: 12/17/2023 9:46 PM Age: 63 years old Clinical indication: Other: Septic TECHNIQUE: Imaging protocol: Radiologic exam of the chest. Views: 1 view. COMPARISON: CR XR CHEST PORTABLE 11/08/2023 3:20 PM FINDINGS: Lungs: Unchanged low lung volumes with left hemidiaphragm elevation and left lung base atelectasis. Remainder of the lungs are clear. Pleural spaces: Normal No pleural effusion. No pneumothorax. Heart/Mediastinum: Normal. No cardiomegaly. Vasculature: Tortuous atherosclerotic thoracic aorta. Bones/joints: Severe degenerative change of the bilateral glenohumeral joints. IMPRESSION: Unchanged low lung volumes with left hemidiaphragm elevation and left lung base atelectasis.
--- NOTE | 2023-12-17 21:51 | ED_ITS ---
Discharge Plan Disposition Chief Complaint: Altered Mental Status Prescriptions Prescriptions: No Action aspirin [Adult Low Dose Aspirin] 81 mg tablet,delayed release (DR/EC) 81 mg PO DAILY cholecalciferol (vitamin D3) 50 mcg (2,000 unit) capsule 50 mcg PO DAILY Trelegy Ellipta 100-62.5-25 mcg blister with device 1 inh inhalation DAILY 90 Days Qty: 90 3RF montelukast 10 mg tablet 10 mg PO PM atorvastatin 40 mg tablet 40 mg PO HS hydroxyzine HCl 25 mg tablet 25 mg PO Q8H PRN (Reason: itching) lorazepam 0.5 mg tablet 0.5 mg PO PRN duloxetine 60 mg capsule,delayed release(DR/EC) 60 mg PO DAILY topiramate 100 mg tablet 100 mg PO BID MDD 200 mg Qty: 60 6RF spironolactone 25 mg tablet See Rx Instructions .ROUTE .COMPLEX Qty: 60 5RF Dose Instruction: TAKE 1 TABLET BY MOUTH TWICE A DAY Rx Instructions: TAKE 1 TABLET BY MOUTH TWICE A DAY Entresto 24-26 mg tablet See Rx Instructions .ROUTE .COMPLEX Qty: 60 5RF Dose Instruction: TAKE 1 TABLET BY MOUTH TWICE A DAY Rx Instructions: TAKE 1 TABLET BY MOUTH TWICE A DAY famotidine 20 mg tablet See Rx Instructions .ROUTE .COMPLEX Qty: 60 2RF Dose Instruction: TAKE 1 TABLET BY MOUTH 2 TIMES A DAY Rx Instructions: TAKE 1 TABLET BY MOUTH 2 TIMES A DAY furosemide 40 mg tablet See Rx Instructions .ROUTE .COMPLEX Qty: 60 4RF Dose Instruction: TAKE 1 TABLET BY MOUTH EACH MORNING TAKE 1 TABLET BY MOUTH @ 3PM Rx Instructions: TAKE 1 TABLET BY MOUTH EACH MORNING TAKE 1 TABLET BY MOUTH @ 3PM carvedilol 3.125 mg tablet See Rx Instructions .ROUTE .COMPLEX Qty: 60 4RF Dose Instruction: TAKE 1 TABLET BY MOUTH TWICE A DAY Rx Instructions: TAKE 1 TABLET BY MOUTH TWICE A DAY albuterol sulfate [Ventolin HFA] 90 mcg/actuation HFA aerosol inhaler 2 inh inhalation Q6H PRN (Reason: shortness of breath or wheezing) 90 Days Qty: 18 3RF omeprazole 40 mg capsule,delayed release(DR/EC) 40 mg PO BID tramadol 50 mg tablet 50 mg PO TID PRN (Reason: pain) Qty: 20 0RF Paxlovid 300 mg (150 mg x 2)-100 mg tablets,dose pack See Rx Instructions PO .COMPLEX Qty: 30 0RF Rx Instructions: take TWO 150 mg tablets of nirmatrelvir with ONE 100 mg tablet of ritonavir twice daily for 5 days lidocaine [Lidoderm] 5 % adhesive patch,medicated 1 patch topical DAILY Qty: 15 0RF Rx Instructions: leave on most painful area for up to 12 hrs cefdinir 300 mg capsule 300 mg PO BID 7 Days Qty: 14 0RF Referrals Follow up/Referrals: Manas Jenkins MD [Primary Care Provider] - See instructions Clinical Impressions Clinical Impression: Shock circulatory, SIRS (systemic inflammatory response syndrome), Accidental opiate poisoning Instructions Patient Instructions: DI for Altered Mental Status Discharge ED Provider: Shelton Garcia General Adult HPI General Chief complaint: Altered Mental Status Stated complaint: Confused,weakness,looks out into nowhere Time Seen by Provider: 12/17/23 21:20 Mode of Arrival: Wheelchair Source of Information: Patient and Relative Limitations: Altered Mental Status Description of Symptoms (Recalled from ER Triage Doc. by RN): Pt brought to ED by and son for staring off into space and slight confusion. PT is A&O to person and place. PT did state she believes it is july at this time. History of Present Illness HPI narrative: Patient is a 63-year-old female with past medical history of previous smoking, chronic tremor hypertension, hyperlipidemia who presents emergency department for evaluation of altered mental status. History is obtained by patient at bedside and by at bedside. Patient has no acute complaints however she took a 20 mg oxycodone that was not prescribed to her approximately 2 hours prior to arrival and began speaking nonsensically causing to bring her here for continued evaluation. Patient is oriented to self and place, not time upon my questioning. She has no acute complaints. She states that she took oxycodone for her chronic back pain. Denies abdominal pain, chest pain, other acute complaints at this time. Per review of previous echocardiogram ejection fraction is normal. Related Data Home Medications Medication Instructions Recorded Confirmed aspirin 81 mg tablet,delayed 81 mg PO DAILY Heart disease 01/07/18 09/08/23 release (Adult Low Dose Aspirin) atorvastatin 40 mg tablet 40 mg PO HS Cholesterol 07/22/22 09/08/23 montelukast 10 mg tablet 10 mg PO PM Allergy symptoms 07/22/22 09/08/23 cholecalciferol (vitamin D3) 50 50 mcg PO DAILY Supplement 03/06/23 09/08/23 mcg (2,000 unit) capsule duloxetine 60 mg capsule,delayed 60 mg PO DAILY 08/11/23 09/08/23 release hydroxyzine HCl 25 mg tablet 25 mg PO Q8H PRN itching 08/11/23 09/08/23 lorazepam 0.5 mg tablet 0.5 mg PO PRN 08/11/23 09/08/23 omeprazole 40 mg capsule,delayed 40 mg PO BID Acid reflux 10/01/23 release Previous Rx's Medication Instructions Recorded tramadol 50 mg tablet 50 mg PO TID PRN pain #20 tabs 02/27/23 fluticasone fur. 100 mcg-umeclid 1 inh inhalation DAILY 90 days #90 06/19/23 62.5 mcg-vilant 25 mcg ea inhalat.powder (Trelegy Ellipta) sacubitril 24 mg-valsartan 26 mg See Rx Instructions .Route 07/14/23 tablet (Entresto) .COMPLEX #60 tabs spironolactone 25 mg tablet See Rx Instructions .Route 07/14/23 .COMPLEX #60 tabs topiramate 100 mg tablet 100 mg PO BID tremor(s), history 08/11/23 of episodic migraine #60 tabs famotidine 20 mg tablet See Rx Instructions .Route 08/18/23 .COMPLEX #60 tabs lidocaine 5 % topical patch 1 patch topical DAILY #15 ea 08/25/23 (Lidoderm) cefdinir 300 mg capsule 300 mg PO BID 7 days #14 caps 09/03/23 carvedilol 3.125 mg tablet See Rx Instructions .Route 09/05/23 .COMPLEX #60 tabs furosemide 40 mg tablet See Rx Instructions .Route 09/05/23 .COMPLEX #60 tabs albuterol sulfate 90 mcg/actuation 2 inh inhalation Q6H PRN shortness 09/24/23 aerosol inhaler (Ventolin HFA) of breath or wheezing 90 days #18 grams nirmatrelvir 300 mg (150 mg See Rx Instructions PO .COMPLEX 11/08/23 x2)-ritonavir 100 mg tablet,dose #30 tabs pack (Paxlovid) Allergies Allergy/AdvReac Type Severity Reaction Status Date / Time sumatriptan Allergy Severe Difficulty Verified 11/03/23 15:12 Breathing fexofenadine [FEXOFENADINE] Allergy Intermediate SICK Verified 11/03/23 15:12 amoxicillin [From AUGMENTIN] Allergy Unknown SOA Verified 11/03/23 15:12 clavulanic acid Allergy Unknown SOA Verified 11/03/23 15:12 [From AUGMENTIN] naproxen [NAPROXEN] Allergy Unknown SWELLING Verified 11/03/23 15:12 PFSH PFS Disclaimer: The information contained in this section may have been updated after the patient was seen, as this information can be updated by other users. Medical History Asthma Asthma exacerbation Dyspnea on exertion Edema of both lower extremities Encounter for screening for malignant neoplasm of lung Gastroesophageal reflux disease Hilar lymphadenopathy History of asthma Hyperglycemia A1c hemoglobin pending, follow-up with PCP for results. Hyperlipidemia Hypertensive disorder Lung nodule Mediastinal lymphadenopathy APARNA (obstructive sleep apnea) APARNA (obstructive sleep apnea) Noncompliant with CPAP treatment. Osteoarthritis She was wheelchair-bound at last appointment and currently ambulatory with a walker Stopped smoking with greater than 30 pack year history Tremor Once again, she was advised to increase topiramate to 100 mg twice daily. 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 She also reported a history of Still on topiramate 50 mg every morning and 100 mg nightly with symptomatic improvement, denies side effects. Relative contraindication for beta- blockers due to history of asthma requiring ED evaluation during last year. Already on benzodiazepines and mild elevation of liver function test, (avoid primidone/Mysoline at this time). Plan as discussed previously, last visit 01/14/2023: Increase topiramate to 100 mg in the morning and 100 mg at night. Indications, possible side effects were reviewed once again with the patient and her including but not limited to nephrolithiasis, paresthesias, word finding difficulty, neuro glaucoma). Surgical History H/O: H/O: hysterectomy History of arthroplasty of left shoulder History of cholecystectomy Family History Other Cancer 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 Smoking Status: Unknown if ever smoked second hand exposure: Yes alcohol intake: never substance use type: denies use current occupational status: disabled Travel in the last 8 weeks: None household members: spouse housing: other marital status: current occupational exposures/hazards: No caffeine: Yes ROS Obtained: Yes Systems reviewed as appropriate & no additional complaints except as documented Physical Exam General General appearance: alert and in no apparent distress Head Head exam: atraumatic and normocephalic Eye Eye exam: Present PERRL and EOMI ENT ENT exam: Present mucous membranes moist Neck Neck exam: Present normal inspection Chest Chest inspection: Present normal inspection and symmetric chest wall rise Respiratory Respiratory exam: Absent normal lung sounds bilaterally (Coarse breath sounds bilaterally) or respiratory distress Cardiovascular Cardiovascular exam: Present normal rhythm and tachycardia Abdominal Exam Abdominal exam: Present soft; Absent tenderness Extremities Exam Extremities exam: Present normal inspection Neurological Exam Neurological exam: Present alert; Absent motor sensory deficit Psychiatric Psychiatric exam: Present normal affect Skin Skin exam: Present warm and dry Medical Decision Making Adonay Inquiry Pt receiving controlled substance: No Vital Signs: 12/17/23 21:27 12/17/23 22:02 12/17/23 22:31 Temperature 100.3 F H Temperature Source Oral Pulse Rate 90 Pulse Rate [Right Brachial] 100 H Respiratory Rate 16 15 17 Blood Pressure 90/46 L 92/44 L Blood Pressure [Left Arm] 74/52 L Blood Pressure Mean [Left Arm] 59 Blood Pressure Source Blood Pressure Source [Left Arm] Manual Cuff/ Auscultation Blood Pressure Position 02 Sat by Pulse Oximetry 91 L 94 L Oxygen Delivery Method Room Air Oxygen Flow Rate (LPM) 12/17/23 23:01 Temperature Temperature Source Pulse Rate 79 Pulse Rate [Right Brachial] Respiratory Rate 18 Blood Pressure 100/52 L Blood Pressure [Left Arm] Blood Pressure Mean [Left Arm] Blood Pressure Source Automatic Cuff Blood Pressure Source [Left Arm] Blood Pressure Position Supine 02 Sat by Pulse Oximetry 97 Oxygen Delivery Method Nasal Cannula Oxygen Flow Rate (LPM) 2 Lab Data Lab Results 12/17/23 21:35: WBC 20.0 H, RBC 3.44 L, Hgb 10.5 L, Hct 32.1 L, MCV 93.3, MCH 30.4, MCHC 32.6, RDW 17.2, Plt Count 340, MPV 8.8, Neut % (Auto) 84.1 H, Lymph % (Auto) 8.5 L, [place] % (Auto) 5.5, Eos % (Auto) 1.4, Baso % (Auto) 0.5, Neut # (Auto) 16.8 H, Lymph # (Auto) 1.7, [place] # (Auto) 1.1 H, Eos # (Auto) 0.3, Baso # (Auto) 0.1, Total Counted 100, Neutrophils % (Manual) 84 H, Lymphocytes % (Manual) 9 L, Monocytes % (Manual) 6, Eosinophils % (Manual) 1, Platelet Estimate Normal, Anisocytosis 1+, Macrocytosis 1+, Digna Cells 1+, PT 10.3, INR 0.95, Sodium 129 L, Potassium 5.3 H, Chloride 96 L, Carbon Dioxide 26, Anion Gap 12.3, BUN 48 H, Creatinine 2.10 H, Estimated Creat Clear 43, Estimated GFR 24 L, Est GFR ( Amer) 29 L, Glucose 114 H, Lactate 0.7, Calcium 8.3 L, Total Bilirubin 0.7, AST 17, ALT 10 L, Alkaline Phosphatase 77, Total Protein 6.4, Albumin 3.6, Globulin 2.8, Albumin/Globulin Ratio 1.3 12/17/23 21:46: VBG pH 7.29 L, VBG pCO2 51.2 H, VBG pO2 32.3, VBG HCO3 24.2, VBG Total CO2 25.7, VBG O2 Saturation 57.5, VBG Base Excess -2.4 12/17/23 22:00: Urine Color Yellow, Urine Appearance Clear, Urine pH 5.5, Ur Specific [place] 1.025, Urine Protein Negative, Urine Glucose (UA) Negative, Urine Ketones Negative, Urine Blood Negative, Urine Nitrate Negative, Urine Bilirubin Negative, Urine Urobilinogen 0.2, Ur Leukocyte Esterase Negative, Urine RBC None, Urine WBC None, Ur Squamous Epith Cells Occasional, Urine Ba cteria Trace, Hyaline Casts 3-5 12/17/23 21:35 12/17/23 21:35 Orders (Tests/Meds): ED MEDICATIONS Generic Name Dose Route Start Last Admin Trade Name Freq PRN Reason Stop Dose Admin Vancomycin HCl 2,250 mg/ 250 mls @ 125 mls/hr 12/17/23 22:00 12/17/23 23:30 Sodium Chloride IV 12/17/23 23:59 125 mls/hr ONCE ONE Administration Norepinephrine/Dextrose 8 mg in 250 mls @ 3.75 mls/hr 12/17/23 21:53 12/17/23 22:51 Norepinephrine 8mg/250ml-D5w Premix IV 01/16/24 21:52 20 mcg/min .Q24H JAMES 37.5 mls/hr Infusion Protocol 2 MCG/MIN Lactated Ringer's 1,710 mls @ 855 mls/hr 12/17/23 22:00 12/17/23 22:09 Lactated Ringer's 1000 Ml Bag 30 ml/kg infuse over 2 hr (1710 ml) 12/17/23 23:59 855 mls/hr IV Administration .Q2H ONE Iopamidol 75 ml 12/17/23 23:29 12/17/23 23:30 Iopamidol-370 (76%);100ml Bottle IV 12/17/23 23:30 75 ml ONCE ONE Administration Miscellaneous 1 each 12/17/23 22:00 12/17/23 21:52 Vancomycin Consult Request NOTAPPLIC 01/16/24 21:59 1 each CONSULT PHARMACY JAMES Administration Sodium Chloride 10 ml 12/17/23 23:29 12/17/23 23:31 Sodium Chloride 0.9% 10ml Syr (Rad Only) IV 01/16/24 23:28 10 ml NEEDED PRN Administration Maintain IV Site Discontinued Medications Generic Name Dose Route Start Last Admin Trade Name Freq PRN Reason Stop Dose Admin Lactated Ringer's 1,000 mls @ 999 mls/hr 12/17/23 21:45 12/17/23 22:00 Lactated Ringer's 1000 Ml Bag IV 12/17/23 22:45 Not Given .Q1H1M ONE Cefepime HCl 2 gm/ Sodium 100 mls @ 200 mls/hr 12/17/23 21:47 12/17/23 22:29 Chloride IV 12/17/23 22:16 200 mls/hr ONCE ONE Administration Metronidazole 500 mg in 100 mls @ 100 mls/hr 12/17/23 21:49 12/17/23 22:39 Flagyl 500mg/100ml Ivpb IV 12/17/23 22:48 100 mls/hr ONCE ONE Administration Naloxone HCl 2 mg 12/17/23 22:10 12/17/23 22:11 Naloxone 2mg/2ml Syringe IV 12/17/23 22:11 2 mg ONCE ONE Administration ORDERS Category Date Time Status CT abdomen pelvis w con Stat Cat Scan 12/17/23 22:[address] angio chest PE protocol Stat Cat Scan 12/17/23 22:[address] head/brain wo con Stat Cat Scan 12/17/23 21:58 Completed CXR --portable [XR chest portable] Stat Exams 12/17/23 21:45 Completed Complete Blood Count Auto Diff Stat Lab 12/17/23 21:35 Completed Comprehensive Metabolic Panel Stat Lab 12/17/23 21:35 Completed Lactic Acid Stat Lab 12/17/23 21:35 Completed Prothrombin Time INR Stat Lab 12/17/23 21:35 Completed UA [Urinalysis and Microscopic] Stat Lab 12/17/23 22:00 Completed Blood Culture Stat Micro 12/17/23 21:32 Received VBG [Venous Blood Gas] Stat RT 12/17/23 21:46 Completed ECG initial [place] Routine Y 12/17/23 21:35 Completed Medical Decision Narrative: Patient is a 63-year-old female with past medical history described above who presents emergency department for evaluation of altered mental status. Patient is hemodynamically unstable upon arrival, temperature 100.3 ?F, hypotensive and tachycardic. Differential includes sepsis secondary to UTI, bacteremia, among others. Patient has a nonfocal neurologic exam so doubt intracranial pathology at this time. Patient did take 20 mg of oxycodone prior to arrival which could explain her encephalopathy however I would expect patient to be bradycardic and per dyspneic for which she is not, she has slightly miotic pupils however they are not pinpoint. Given this patient will be given Narcan however broad workup will be conducted with hematologic labs, chest x-ray, EKG, troponin, blood cultures. Broad-spectrum antibiotics will be initiated with vancomycin, cefepime, Flagyl given shortness of breath to penicillins, initial crystalloid resuscitation will be conducted with lactated Ringer's and patient will be placed on norepinephrine drip with MAP goal greater than 65. Initial workup reviewed by me, significant leukocytosis with left shift, slight hypercarbic acidosis, hyponatremia, FER. Urinalysis interpreted by me and not consistent with infection. Noncontrasted CT scan of the head shows no acute abnormalities. I do not have a definitive source of infection and patient is requiring vasopressors therefore workup will be broadened with CT of the chest, abdomen, pelvis and viral swab will be obtained. Formal CT read pending at time of transfer of care to the oncoming physician, Dr. Preston. Critical Care Critical Care Time Critical Care Time: Yes Attestation: On 12/17/23, the high probability of a clinically significant, sudden or life threatening deterioration of the following system(s) required my full and direct attention, intervention and personal management. The time I documented below is in addition to time spent performing reported procedures but includes the following listed in this critical care notation. Total Time Total Critical Care Time: 45
[2023-12-17 21:52] LABS: Lactic Acid 0.7 mmol/L (0.7-2.1)
[2023-12-17] MEDS: VANCOMYCIN CONSULT REQUEST 1 EACH NOTAPPLIC (21:52)
[2023-12-17 21:53] LABS: Alanine Aminotransferase 10 U/L (12-78); Albumin Level 3.6 g/dl (3.5-5.0); Albumin/Globulin Ratio 1.3 (1.1-1.8); Alkaline Phosphatase 77 U/L (38-126); Anion Gap 12.3 mEq/L (5-15); Aspartate Amino Transferase 17 U/L (14-36); Bilirubin,Total 0.7 mg/dl (0.2-1.3); Blood Urea Nitrogen 48 mg/dl (7-17); Calcium 8.3 mg/dl (8.4-10.2); Carbon Dioxide 26 mmol/L (22.0-30.0); Chloride 96 mmol/L (98-107); Creatinine Clearance Estimated 43 mL/min (50-200); Estimated Glomerular Filt Rate 24 ml/min (>60); GFR (African American) 29 ML/MIN (>60); Globulin 2.8 g/dL (1.3-3.2); Glucose 114 mg/dl (74-100); Potassium 5.3 mmoL/L (3.5-5.1); Sodium 129 mmol/L (136-145); Total Protein,Serum 6.4 g/dl (6.3-8.2)
[2023-12-17 21:58] LABS: VBG Base Excess -2.4 mmol/L (-2.4-2.3); VBG HCO3 24.2 mmol/L (23-30); VBG Oxygen Saturation 57.5 % (50-70); VBG PH 7.29 mmol/L (7.31-7.41); VBG PO2 32.3 mmol/L (28-40); VBG Total CO2 25.7 mmol/L (23-27)
--- NOTE | 2023-12-17 21:58 | CT_ITS ---
PROCEDURE INFORMATION: Exam: CT Head Without Contrast Exam date and time: 12/17/2023 10:09 PM Age: 63 years old Clinical indication: Altered mental status/memory loss; Additional info: AMS TECHNIQUE: Imaging protocol: Computed tomography of the head without contrast. Radiation optimization: All CT scans at this facility use at least one of these dose optimization techniques: automated exposure control; mA and/or kV adjustment per patient size (includes targeted exams where dose is matched to clinical indication); or iterative reconstruction. COMPARISON: CT HEAD/BRAIN WO CON 02/21/2023 3:22 AM FINDINGS: Brain: Unchanged pericallosal lipoma. No hemorrhage. Unremarkable white matter. No mass effect. Cerebral ventricles: No ventriculomegaly. Paranasal sinuses: Visualized sinuses are unremarkable. No fluid levels. Mastoid air cells: Visualized mastoid air cells are well aerated. Bones/joints: Unremarkable. No acute fracture. Soft tissues: Unremarkable. IMPRESSION: 1. No acute intracranial abnormality. 2. Unchanged pericallosal lipoma
[2023-12-17 21:59] LABS: Basophils # 0.1 K/mm3 (0-0.2); Basophils % 0.5 % (0.1-2.0); Eosinophils # 0.3 K/mm3 (0.0-0.4); Eosinophils % 1.4 % (0.1-12.0); Hematocrit 32.1 % (37.0-47.0); Hemoglobin 10.5 g/dL (12.2-16.2); Lymphocytes # 1.7 K/mm3 (0.7-4.5); Lymphocytes % 8.5 % (10-50); Mean Corpuscular HGB Conc 32.6 g/dL (31.8-35.4); Mean Corpuscular Hemoglobin 30.4 pg (27.0-31.2); Mean Corpuscular Volume 93.3 fl (81-99); Mean Platelet Volume 8.8 fl (7.4-10.4); Monocytes # 1.1 K/mm3 (0.1-1.0); Monocytes % 5.5 % (1.7-9.3); Neutrophils # 16.8 K/mm3 (1.8-7.8); Neutrophils % 84.1 % (37.0-80.0); Platelet Count 340 K/mm3 (142-424); Red Blood Count 3.44 M/mm3 (4.20-5.40); Red Cell Distribution Width 17.2 % (11.5-17.5)
[2023-12-17 22:00] LABS: VBG PCO2 51.2 mmol/L (35-51)
[2023-12-17 22:01] LABS: MANUAL DIFFERENTIAL MANUAL DIFFERENTIAL (MANUAL DIFF)
--- NOTE | 2023-12-17 22:02 | PC.NURSE ---
vbg results reported to md ruby at this time
[2023-12-17 22:06] LABS: INR 0.95 (0.9-1.1); Prothrombin Time 10.3 seconds (10.1-12.5)
[2023-12-17 22:07] LABS: Microscopic, Urine URINE MICROSCOPIC (MICROSCOPIC)
[2023-12-17] MEDS: LACTATED RINGERS 1000ML 1,710 ML 855 ML IV (22:09)
[2023-12-17] MEDS: NALOXONE 2MG/2ML SYRINGE 2 MG IV (22:11)
[2023-12-17 22:15] LABS: Eosinophils % 1 % (0-3); Lymphocytes % 9 % (10-50); Monocytes % 6 % (2-9); Neutrophils % 84 % (42-76); Total Cells Counted 100
[2023-12-17 22:16] LABS: Anisocytosis 1+; Burr Cells 1+; Macrocytosis 1+; Platelet Estimate Normal
[2023-12-17] MEDS: CEFEPIME HCL 2 GM in 0.9 % SODIUM CHLORIDE 100 ML IV (22:29)
--- NOTE | 2023-12-17 22:30 | PC.NURSE ---
Bc x 2 collected by Bev Candelario bband applied, abx started
[2023-12-17] MEDS: NOREPINEPHRINE BITARTRATE/D5W 8 MG/250 ML PLAST..BAG 15 MG IV (22:32)
[2023-12-17] MEDS: METRONIDAZ/SOD CHL 500 MG/100 ML PIGGYBACK 100 MG IV (22:39)
[2023-12-17 22:40] LABS: Appearance,Urine CLEAR (Clear); Bilirubin,Urine Negative (Negative); Blood, Urine Negative (Negative); Color,Urine YELLOW (Yellow); Glucose,Urine (UA) Negative (Negative); Ketones,Urine Negative (Negative); Leukocyte Esterase,Urine Negative (Negative); Nitrate,Urine Negative (Negative); PH,Urine 5.5 (5.0-8.5); Protein,Urine Negative (Negative); Specific Gravity, Urine 1.025 (1.005-1.030); Urobilinogen,Urine 0.2 EU/dl (0.2)
[2023-12-17 22:41] LABS: Bacteria,Urine Trace /lpf; Squamous Epithelial Cell,Urine Occasional #/hpf (0-5)
--- NOTE | 2023-12-17 22:48 | CT_ITS ---
PROCEDURE INFORMATION: Exam: CTA Chest With Contrast Exam date and time: 12/17/2023 11:17 PM Age: 63 years old Clinical indication: Other: Shock; Additional info: Shock undifferentiated, febrile TECHNIQUE: Imaging protocol: Computed tomographic angiography of the chest with contrast. Exam focused on the arteries. 3D rendering (Not supervised by radiologist): MIP and/or 3D reconstructed images were created by the technologist. Radiation optimization: All CT scans at this facility use at least one of these dose optimization techniques: automated exposure control; mA and/or kV adjustment per patient size (includes targeted exams where dose is matched to clinical indication); or iterative reconstruction. Contrast material: ISOVUE; Contrast volume: 75 ml; Contrast route: INTRAVENOUS (IV); COMPARISON: CT ANGIO CHEST PE PROTOCOL 02/21/2023 4:33 AM FINDINGS: Limitations: Respiratory motion artifact. Pulmonary arteries: No central pulmonary emboli. Segmental and subsegmental pulmonary emboli could be obscured by motion artifact. Aorta: Unremarkable. No aortic aneurysm. No aortic dissection. Lungs: Low lung volumes with bibasilar atelectasis, greatest in the lingula and left lower lobes. Right upper lobe calcified granuloma. Pleural spaces: Unremarkable. No pneumothorax. No pleural effusion. Heart: Unremarkable. No cardiomegaly. No pericardial effusion. Lymph nodes: Calcified right hilar lymph node. No adenopathy. Bones/joints: Severe degenerative change of the bilateral glenohumeral joints. Soft tissues: Unremarkable. IMPRESSION: 1. Limited by respiratory motion artifact. 2. No central pulmonary emboli. Peripheral emboli could be obscured by motion artifact. 3. Low lung volumes with bibasilar atelectasis, greater on the left. 4. Prior granulomatous disease.
--- NOTE | 2023-12-17 22:48 | CT_ITS ---
PROCEDURE INFORMATION: Exam: CT Abdomen And Pelvis With Contrast Exam date and time: 12/17/2023 11:17 PM Age: 63 years old Clinical indication: Other: Shock; Additional info: Shock, undifferentiated, nontender, wbc 20 TECHNIQUE: Imaging protocol: Computed tomography of the abdomen and pelvis with contrast. Radiation optimization: All CT scans at this facility use at least one of these dose optimization techniques: automated exposure control; mA and/or kV adjustment per patient size (includes targeted exams where dose is matched to clinical indication); or iterative reconstruction. Contrast material: ISOVUE; Contrast volume: 75 ml; Contrast route: IV; COMPARISON: CT ABDOMEN PELVIS WO CON 08/25/2023 3:34 PM FINDINGS: Liver: Calcified granulomas in the liver. No hepatomegaly. Gallbladder and bile ducts: Status post cholecystectomy. No significant biliary ductal dilitation. Pancreas: Normal. No ductal dilation. Spleen: Calcified granulomas in the spleen. No splenomegaly. Adrenal glands: Normal. No mass. Kidneys and ureters: Normal. No hydronephrosis. Stomach and bowel: There is a segment of distal ileum demonstrating low-density wall thickening and mild surrounding fat stranding. No dilated bowel loops. Appendix: No evidence of appendicitis. Intraperitoneal space: Trace pelvic free fluid. Vasculature: Mild atherosclerotic disease without aneurysm. Lymph nodes: Unremarkable. No enlarged lymph nodes. Urinary bladder: Ni catheter in the bladder. Mild gas within the bladder. Reproductive: Status post hysterectomy. No adnexal masses. Bones/joints: Mild degenerative change of the right hip. Mild degenerative change of the lumbar spine. Slight retrolisthesis of L2 over L3 and L3 over L4. Soft tissues: Unremarkable. IMPRESSION: 1. There is a segment of distal ileal wall thickening and surrounding fat stranding which appears consistent with ileitis. No abscess or free air. 2. Trace pelvic free fluid. 3. Prior granulomatous disease.
--- NOTE | 2023-12-17 23:00 | PC.NURSE ---
manual pressure obtained and reading of 100/50 consistent with monitor readings
--- NOTE | 2023-12-17 23:29 | PC.NURSE ---
patient back from CT at this time
[2023-12-17] MEDS: VANCOMYCIN HCL 2,250 MG in 0.9 % SODIUM CHLORIDE 250 ML 125 MG IV (23:30)
[2023-12-17] MEDS: IOPAMIDOL-370 (76%);100ML BOTTLE 75 ML IV (23:30)
[2023-12-17] MEDS: SODIUM CHLORIDE 0.9% 10ML SYR (RAD ONLY) 10 ML IV (23:31)
--- NOTE | 2023-12-17 23:37 | PC.NURSE ---
Dr Garcia ok for max dose of Levo to max at 40ml/hr
[2023-12-17 23:43] LABS: Coronavirus 19, PCR Not Detected (NotDetected); Influenza A, PCR Not Detected (NotDetected); Influenza B, PCR Not Detected (NotDetected)
[2023-12-18] VITALS (29 sets, daily range): BP systolic 88–138; BP diastolic 44–77; PULSE 60–91; RESP 14–22; TEMP 36.7–37.9; O2SAT 94–98; BMI 36.6
--- NOTE | 2023-12-18 00:05 | PC.NURSE ---
on phone with hospitalist
--- NOTE | 2023-12-18 00:10 | P.HP_ITS ---
History of Present Illness *Admission Date: 12/18/23 *Reason for visit:: AMS *History of present illness: This is a 63-year-old obese female with extensive PMHx including but no limited to TIA, chronic tremor, HTN, HLD, Chronic pain, constipation, former smoker who presents emergency department for evaluation of altered mental status. History is obtained by patient at bedside and ED documentation. Patient reported no acute complaints however she took a 20 mg oxycodone that was not prescribed to her approximately 2 hours prior to arrival and began speaking nonsensically causing to bring her here for continued evaluation. Currently patient is oriented to self and place. Denies abdominal pain, chest pain, other acute complaints at this time. Being admitted for further work up. [facility] Disclaimer: The information contained in this section may have been updated after the patient was seen, as this information can be updated by other users. Medical History Asthma Asthma exacerbation Dyspnea on exertion Edema of both lower extremities Encounter for screening for malignant neoplasm of lung Gastroesophageal reflux disease Hilar lymphadenopathy History of asthma Hyperglycemia A1c hemoglobin pending, follow-up with PCP for results. Hyperlipidemia Hypertensive disorder Lung nodule Mediastinal lymphadenopathy APARNA (obstructive sleep apnea) APARNA (obstructive sleep apnea) Noncompliant with CPAP treatment. Osteoarthritis She was wheelchair-bound at last appointment and currently ambulatory with a walker Stopped smoking with greater than 30 pack year history Tremor Once again, she was advised to increase topiramate to 100 mg twice daily. 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 She also reported a history of Still on topiramate 50 mg every morning and 100 mg nightly with symptomatic improvement, denies side effects. Relative contraindication for beta- blockers due to history of asthma requiring ED evaluation during last year. Already on benzodiazepines and mild elevation of liver function test, (avoid primidone/Mysoline at this time). Plan as discussed previously, last visit 01/14/2023: Increase topiramate to 100 mg in the morning and 100 mg at night. Indications, possible side effects were reviewed once again with the patient and her including but not limited to nephrolithiasis, paresthesias, word finding difficulty, neuro glaucoma). Surgical History H/O: H/O: hysterectomy History of arthroplasty of left shoulder History of cholecystectomy Family History Other Cancer 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 (Updated 12/18/23 @ 03:35 by Anju Lofton RN) Smoking Status: Unknown if ever smoked second hand exposure: Yes alcohol intake: never substance use type: denies use current occupational status: disabled Travel in the last 8 weeks: None household members: spouse housing: other marital status: current occupational exposures/hazards: No caffeine: Yes Review of Systems Review of Systems Review of systems:: pertinent systems reviewed and negative unless documented below Meds Home Medications and Allergies Home Medications Medication Instructions Recorded Confirmed Type aspirin 81 mg tablet,delayed 81 mg PO DAILY 01/07/18 12/18/23 History release (Adult Low Dose Aspirin) atorvastatin 40 mg tablet 40 mg PO HS 07/22/22 12/18/23 History cholecalciferol (vitamin D3) 50 2,000 unit PO DAILY 03/06/23 12/18/23 History mcg (2,000 unit) capsule duloxetine 60 mg capsule,delayed 60 mg PO DAILY 08/11/23 12/18/23 History release lorazepam 0.5 mg tablet 0.5 mg PO DAILY PRN Anxiety 08/11/23 12/18/23 History omeprazole 40 mg capsule,delayed 40 mg PO DAILY 10/01/23 12/18/23 History release albuterol sulfate 90 mcg/actuation 2 puff inhalation Q6H PRN 12/18/23 12/18/23 History aerosol inhaler (Ventolin HFA) Shortness Of Breath carvedilol 3.125 mg tablet 3.125 mg PO BID 12/18/23 12/18/23 History ergocalciferol (vitamin D2) 1,250 50,000 unit PO WEEKLY 12/18/23 12/18/23 History mcg (50,000 unit) capsule (Vitamin D2) fluticasone fur. 100 mcg-umeclid 1 inh inhalation DAILY 12/18/23 12/18/23 History 62.5 mcg-vilant 25 mcg inhalat.powder (Trelegy Ellipta) furosemide 40 mg tablet 40 mg PO BID 12/18/23 12/18/23 History gabapentin 100 mg capsule 100 mg PO TID 12/18/23 12/18/23 History polyethylene glycol 3350 17 17 g PO BID PRN Constipation 12/18/23 12/18/23 History gram/dose oral powder (ClearLax) sacubitril 24 mg-valsartan 26 mg 1 tab PO BID 12/18/23 12/18/23 History tablet (Entresto) spironolactone 25 mg tablet 25 mg PO BID 12/18/23 12/18/23 History topiramate 100 mg tablet 100 mg PO BID 12/18/23 12/18/23 History tramadol 50 mg tablet 50 mg PO TID PRN Pain 12/18/23 12/18/23 History New Prescriptions to Start Prescriptions: Allergies Allergy/AdvReac Type Severity Reaction Status Date / Time sumatriptan Allergy Severe Difficulty Verified 11/03/23 15:12 Breathing fexofenadine [FEXOFENADINE] Allergy Intermediate SICK Verified 11/03/23 15:12 amoxicillin [From AUGMENTIN] Allergy Unknown SOA Verified 11/03/23 15:12 clavulanic acid Allergy Unknown SOA Verified 11/03/23 15:12 [From AUGMENTIN] naproxen [NAPROXEN] Allergy Unknown SWELLING Verified 11/03/23 15:12 Exam Data for Last 24 hours Vital signs and Labs for Last 24 Hours: Temp Pulse Resp BP Pulse Ox O2 Del Method O2 Flow Rate 100.3 F H 79 18 100/52 L 97 Nasal Cannula 2 12/17/23 21:27 12/17/23 23:01 12/17/23 23:01 12/17/23 23:01 12/17/23 23:01 12/17/23 23:01 12/17/23 23:01 Laboratory Results - last 24 hr 12/17/23 21:35: WBC 20.0 H, RBC 3.44 L, Hgb 10.5 L, Hct 32.1 L, MCV 93.3, MCH 30.4, MCHC 32.6, RDW 17.2, Plt Count 340, MPV 8.8, Neut % (Auto) 84.1 H, Lymph % (Auto) 8.5 L, [place] % (Auto) 5.5, Eos % (Auto) 1.4, Baso % (Auto) 0.5, Neut # (Auto) 16.8 H, Lymph # (Auto) 1.7, [place] # (Auto) 1.1 H, Eos # (Auto) 0.3, Baso # (Auto) 0.1, Total Counted 100, Neutrophils % (Manual) 84 H, Lymphocytes % (Manual) 9 L, Monocytes % (Manual) 6, Eosinophils % (Manual) 1, Platelet Estimate Normal, Anisocytosis 1+, Macrocytosis 1+, [place] Cells 1+, PT 10.3, INR 0.95, Sodium 129 L, Potassium 5.3 H, Chloride 96 L, Carbon Dioxide 26, Anion Gap 12.3, BUN 48 H, Creatinine 2.10 H, Estimated Creat Clear 43, Estimated GFR 24 L , Est GFR ( Amer) 29 L, Glucose 114 H, Lactate 0.7, Calcium 8.3 L, Total Bilirubin 0.7, AST 17, ALT 10 L, Alkaline Phosphatase 77, Total Protein 6.4, Albumin 3.6, Globulin 2.8, Albumin/Globulin Ratio 1.3 12/17/23 21:46: VBG pH 7.29 L, VBG pCO2 51.2 H, VBG pO2 32.3, VBG HCO3 24.2, VBG Total CO2 25.7, VBG O2 Saturation 57.5, VBG Base Excess -2.4 12/17/23 22:00: Urine Color Yellow, Urine Appearance Clear, Urine pH 5.5, Ur Specific [place] 1.025, Urine Protein Negative, Urine Glucose (UA) Negative, Urine Ketones Negative, Urine Blood Negative, Urine Nitrate Negative, Urine Bilirubin Negative, Urine Urobilinogen 0.2, Ur Leukocyte Esterase Negative, Urine RBC None, Urine WBC None, Ur Squamous Epith Cells Occasional, Urine Bacteria Trace, Hyaline Casts 3-5 I & O for Last 24 hours: Intake & Output 12/15/23 12/16/23 12/17/23 12/18/23 23:59 23:59 23:59 23:59 Intake Total 34.376 / 34.376 Balance 34.376 / 34.376 Weight 99.798 kg Constitutional Constitutional: moderate distress *Routine HEENT Exam Head: Present normocephalic Eye: Present EOMI ENT: Present mucous membranes moist *Routine Respiratory Exam Respiratory: Present crackles and diminished air movement *Routine Cardiovascular Exam Cardiovascular: Present RRR, Normal S1, Normal S2 and tachycardia *Routine Abdominal Exam Abdominal: Present soft and normoactive bowel sounds *Routine Rectal Exam Rectal:: deferred *Routine Genitalia Exam Genitalia:: deferred *Routine Skin Exam Skin: Present intact *Routine Neurological Exam Neurological: Present altered mental status H&P: Result Imaging and Cardiology EKG: Status: image reviewed by me and Preliminary report Chest x-ray: Status: Preliminary report and final report CT scan - abdomen: Status: image reviewed by me, Preliminary report and final report CT scan - chest: Status: image reviewed by me, Preliminary report and final report CT scan - head: Status: image reviewed by me, Preliminary report and final report Assessment and Plan *Assessment and plan (1) Accidental opiate poisoning: Status: Acute Qualifiers: Encounter type: initial encounter Qualified Code(s): T40.601A - Poisoning by unspecified narcotics, accidental (unintentional), initial encounter Category: Medical Code(s): T40.601A - Poisoning by unspecified narcotics, accidental (unintentional), initial encounter (2) Hypotension (arterial): Status: Acute Qualifiers: Hypotension type: unspecified hypotension type Qualified Code(s): I95.9 - Hypotension, unspecified Category: Medical Code(s): I95.9 - Hypotension, unspecified (3) Ileitis: Status: Acute Category: Medical Code(s): K52.9 - Noninfective gastroenteritis and colitis, unspecified (4) FER (acute kidney injury): Status: Acute Category: Medical Code(s): N17.9 - Acute kidney failure, unspecified (5) Chronic back pain: Status: Acute Qualifiers: Back pain laterality: unspecified Back pain location: back pain in unspecified location Qualified Code(s): M54.9 - Dorsalgia, unspecified; G89.29 - Other chronic pain Category: Medical Code(s): M54.9 - Dorsalgia, unspecified; G89.29 - Other chronic pain (6) Constipation: Status: Acute Qualifiers: Constipation type: unspecified constipation type Qualified Code(s): K59.00 - Constipation, unspecified Category: Medical Code(s): K59.00 - Constipation, unspecified (7) Obesity: Status: Chronic Qualifiers: Body mass index: BMI 36.0-36.9 Obesity classification: adult class 2 (BMI 35 - 39.9) Obesity type: with alveolar hypoventilation Serious obesity comorbidity presence: with serious comorbidity Qualified Code(s): E66.2 - Morbid (severe) obesity with alveolar hypoventilation; Z68.36 - Body mass index [BMI] 36.0-36.9, adult Category: Medical Code(s): E66.9 - Obesity, unspecified Plan 63-year-old obese female with extensive PMHx including but no limited to TIA, chronic tremor, HTN, HLD, Chronic pain, constipation, former smoker who presents emergency department for evaluation of altered mental status. patient has no acute complaint until she took 20 mg Oxycodone for chronic pain. patient's reported patient became disoriented and speaking non sense. On arrival, patient presented hypotensive, tachycardic and low grade temp. 100.3F. patient slowly recovered mental status. sepsis work up initiated. CT of Head, chest and abdomen ordered. CVA was ruled out. Chest presenting with bibasilar atelectasis. Abdomen concerning for ileitis. Imaging reviewed. labs were significant for leukocytosis, FER, electrolytes disturbances. Patient was started on levophed and broad Abx. BC drawn . Discussed with ER for further work up and management. Admitted. Plan as follow: -Altered mental status secondary to accidental opioid intake: Resolved. Narcan given. Advance diet as tolerated and mentation improved -Hypotension: To rule out septic shock, presented with white count of 20 opioid induced hypotension Patient admitted on continuous Levophed. Goal MAP of 60 or greater. Titration Blood culture Stool culture ordered COVID swab negative. Patient was recently taken Paxlovid for COVID UA ordered. Patient recently completed treatment for UTI Vancomycin, cefepime and flagyl given Continue with Flagyl 500 mg every 8h -CT of the abdomen concerning for ileitis. Presented the patient with history of chronic constipation avoid NSAIDs. C. difficile toxin ordered to rule out Stool pending May consult surgery after medical stabilization Continue monitor CBC CMP -Acute kidney injury: Electrolyte disturbances Hyponatremia and hypokalemia: Likely secondary to hypovolemic shock 2L LR given at ER Continue IV hydration repeat CMP. monitor for Cr and GFR -History of chronic pain which osteoporotic and DJD : Pain management avoid opioids Tylenol as needed Other chronic conditions and medications are reviewed. Nursing to reconcile home meds -Obesity: Will complicate all aspects of care Lovenox for DVT prophylaxis . On Protonix full code Rounded on patient after nurse practitioner. Personally examined and interviewed patient. Agree with exam findings and care plan as documented. Continuing Levophed, weaning today. Decreased to 2 this morning on rounds. Blood pressure improving. Continue broad-spectrum antibiotics. White cell count 18 on morning rounds. Kidney function improved with creatinine 1.2 on morning labs. Baseline appears to be 0.8. More alert on rounds. Continues to require inpatient management. No change to antibiotic regimen pending culture results
[2023-12-18] MEDS: NOREPINEPHRINE BITARTRATE/D5W 8 MG/250 ML PLAST..BAG 30 MG IV (04:10)
[2023-12-18] MEDS: METRONIDAZ/SOD CHL 500 MG/100 ML PIGGYBACK 100 MG IV ×3 (04:10→20:33)
--- NOTE | 2023-12-18 04:37 | PC.NURSE ---
unable to complete med rec as pt is unaware of medications she is on
[2023-12-18] MEDS: 0.9 % SODIUM CHLORIDE 1000ML 1,000 ML 75 ML IV (05:26)
[2023-12-18 05:33] LABS: POC Glucose,Bedside 127 (70-110)
[2023-12-18 06:57] LABS: Basophils # 0.1 K/mm3 (0-0.2); Basophils % 0.3 % (0.1-2.0); Eosinophils # 0.1 K/mm3 (0.0-0.4); Eosinophils % 0.5 % (0.1-12.0); Hematocrit 32.6 % (37.0-47.0); Hemoglobin 10.9 g/dL (12.2-16.2); Lymphocytes # 1.7 K/mm3 (0.7-4.5); Lymphocytes % 9.1 % (10-50); Mean Corpuscular HGB Conc 33.3 g/dL (31.8-35.4); Mean Corpuscular Hemoglobin 30.7 pg (27.0-31.2); Mean Corpuscular Volume 92.3 fl (81-99); Mean Platelet Volume 8.9 fl (7.4-10.4); Monocytes # 1.2 K/mm3 (0.1-1.0); Monocytes % 6.9 % (1.7-9.3); Neutrophils % 83.2 % (37.0-80.0); Platelet Count 315 K/mm3 (142-424); Red Blood Count 3.53 M/mm3 (4.20-5.40); Red Cell Distribution Width 17.3 % (11.5-17.5)
[2023-12-18 07:09] LABS: Alanine Aminotransferase 11 U/L (12-78); Albumin Level 3.4 g/dl (3.5-5.0); Albumin/Globulin Ratio 1.1 (1.1-1.8); Alkaline Phosphatase 90 U/L (38-126); Anion Gap 13.3 mEq/L (5-15); Aspartate Amino Transferase 22 U/L (14-36); Bilirubin,Total 0.5 mg/dl (0.2-1.3); Blood Urea Nitrogen 34 mg/dl (7-17); Calcium 8.1 mg/dl (8.4-10.2); Carbon Dioxide 24 mmol/L (22.0-30.0); Chloride 101 mmol/L (98-107); Creatinine Clearance Estimated 75 mL/min (50-200); Estimated Glomerular Filt Rate 45 ml/min (>60); GFR (African American) 55 ML/MIN (>60); Glucose 126 mg/dl (74-100); Potassium 4.3 mmoL/L (3.5-5.1); Sodium 134 mmol/L (136-145); Total Protein,Serum 6.4 g/dl (6.3-8.2)
--- NOTE | 2023-12-18 07:43 | P.CONPHA_ITS ---
Pharmacy Consult Date: 12/18/23 Time: 07:43 Referring provider: DR. SIBLEY Reason for Consult:: VANCOMYCIN DOSING Allergies Allergy/AdvReac Type Severity Reaction Status Date / Time sumatriptan Allergy Severe Difficulty Verified 11/03/23 15:12 Breathing fexofenadine [FEXOFENADINE] Allergy Intermediate SICK Verified 11/03/23 15:12 amoxicillin [From AUGMENTIN] Allergy Unknown SOA Verified 11/03/23 15:12 clavulanic acid Allergy Unknown SOA Verified 11/03/23 15:12 [From AUGMENTIN] naproxen [NAPROXEN] Allergy Unknown SWELLING Verified 11/03/23 15:12 Home Medications Medication Instructions Recorded Confirmed Type aspirin 81 mg tablet,delayed 81 mg PO DAILY Heart disease 01/07/18 09/08/23 History release (Adult Low Dose Aspirin) atorvastatin 40 mg tablet 40 mg PO HS Cholesterol 07/22/22 09/08/23 History montelukast 10 mg tablet 10 mg PO PM Allergy symptoms 07/22/22 09/08/23 History tramadol 50 mg tablet 50 mg PO TID PRN pain #20 tabs 02/27/23 09/08/23 Rx cholecalciferol (vitamin D3) 50 50 mcg PO DAILY Supplement 03/06/23 09/08/23 History mcg (2,000 unit) capsule fluticasone fur. 100 mcg-umeclid 1 inh inhalation DAILY 90 days #90 06/19/23 09/08/23 Rx 62.5 mcg-vilant 25 mcg ea inhalat.powder (Trelegy Ellipta) sacubitril 24 mg-valsartan 26 mg See Rx Instructions .Route 07/14/23 09/08/23 Rx tablet (Entresto) .COMPLEX #60 tabs spironolactone 25 mg tablet See Rx Instructions .Route 07/14/23 09/08/23 Rx .COMPLEX #60 tabs duloxetine 60 mg capsule,delayed 60 mg PO DAILY 08/11/23 09/08/23 History release hydroxyzine HCl 25 mg tablet 25 mg PO Q8H PRN itching 08/11/23 09/08/23 History lorazepam 0.5 mg tablet 0.5 mg PO PRN 08/11/23 09/08/23 History topiramate 100 mg tablet 100 mg PO BID tremor(s), history 08/11/23 09/08/23 Rx of episodic migraine #60 tabs famotidine 20 mg tablet See Rx Instructions .Route 08/18/23 09/08/23 Rx .COMPLEX #60 tabs lidocaine 5 % topical patch 1 patch topical DAILY #15 ea 08/25/23 09/08/23 Rx (Lidoderm) cefdinir 300 mg capsule 300 mg PO BID 7 days #14 caps 09/03/23 09/08/23 Rx carvedilol 3.125 mg tablet See Rx Instructions .Route 09/05/23 09/08/23 Rx .COMPLEX #60 tabs furosemide 40 mg tablet See Rx Instructions .Route 09/05/23 09/08/23 Rx .COMPLEX #60 tabs albuterol sulfate 90 mcg/actuation 2 inh inhalation Q6H PRN shortness 09/24/23 Rx aerosol inhaler (Ventolin HFA) of breath or wheezing 90 days #18 grams omeprazole 40 mg capsule,delayed 40 mg PO BID Acid reflux 10/01/23 History release nirmatrelvir 300 mg (150 mg See Rx Instructions PO .COMPLEX 11/08/23 Rx x2)-ritonavir 100 mg tablet,dose #30 tabs pack (Paxlovid) New Prescriptions to Start Prescriptions: Height: 1.65 m Weight: 99.798 kg Laboratory Results:: Laboratory Results - last 24 hr 12/17/23 21:35: WBC 20.0 H, RBC 3.44 L, Hgb 10.5 L, Hct 32.1 L, MCV 93.3, MCH 30.4, MCHC 32.6, RDW 17.2, Plt Count 340, MPV 8.8, Neut % (Auto) 84.1 H, Lymph % (Auto) 8.5 L, [place] % (Auto) 5.5, Eos % (Auto) 1.4, Baso % (Auto) 0.5, Neut # (Auto) 16.8 H, Lymph # (Auto) 1.7, [place] # (Auto) 1.1 H, Eos # (Auto) 0.3, Baso # (Auto) 0.1, Total Counted 100, Neutrophils % (Manual) 84 H, Lymphocytes % (Manual) 9 L, Monocytes % (Manual) 6, Eosinophils % (Manual) 1, Platelet Estimate Normal, Anisocytosis 1+, Macrocytosis 1+, [place] Cells 1+, PT 10.3, INR 0.95, Sodium 129 L, Potassium 5.3 H, Chloride 96 L, Carbon Dioxide 26, Anion Gap 12.3, BUN 48 H, Creatinine 2.10 H, Estimated Creat Clear 43, Estimated GFR 24 L , Est GFR ( Amer) 29 L, Glucose 114 H, Lactate 0.7, Calcium 8.3 L, Total Bilirubin 0.7, AST 17, ALT 10 L, Alkaline Phosphatase 77, Total Protein 6.4, Albumin 3.6, Globulin 2.8, Albumin/Globulin Ratio 1.3 12/17/23 21:46: VBG pH 7.29 L, VBG pCO2 51.2 H, VBG pO2 32.3, VBG HCO3 24.2, VBG Total CO2 25.7, VBG O2 Saturation 57.5, VBG Base Excess -2.4 12/17/23 22:00: Urine Color Yellow, Urine Appearance Clear, Urine pH 5.5, Ur Specific [place] 1.025, Urine Protein Negative, Urine Glucose (UA) Negative, Urine Ketones Negative, Urine Blood Negative, Urine Nitrate Negative, Urine Bilirubin Negative, Urine Urobilinogen 0.2, Ur Leukocyte Esterase Negative, Urine RBC None, Urine WBC None, Ur Squamous Epith Cells Occasional, Urine Bacteria Trace, Hyaline Casts 3-5 12/17/23 22:15: SARS-CoV-2 (PCR) Not detected, Influenza A Untype (PCR) Not detected, Influenza Type B (PCR) Not detected 12/18/23 05:23: WBC 18.0 H, RBC 3.53 L, Hgb 10.9 L, Hct 32.6 L, MCV 92.3, MCH 30.7, MCHC 33.3, RDW 17.3, Plt Count 315, MPV 8.9, Neut % (Auto) 83.2 H, Lymph % (Auto) 9.1 L, [place] % (Auto) 6.9, Eos % (Auto) 0.5, Baso % (Auto) 0.3, Neut # (Auto) 15.0 H, Lymph # (Auto) 1.7, [place] # (Auto) 1.2 H, Eos # (Auto) 0.1, Baso # (Auto) 0.1, Sodium 134 L, Potassium 4.3, Chloride 101, Carbon Dioxide 24, Anion Gap 13.3, BUN 34 H D, Creatinine 1.20 H D, Estimated Creat Clear 75, Estimated GFR 45 L, Est GFR ( Amer) 55 L D, Glucose 126 H, Calcium 8.1 L, Magnesium 2.0, Total Bilirubin 0.5, AST 22 D, ALT 11 L, Alkaline Phosphatase 90, Total Protein 6.4, Albumin 3.4 L, Globulin 3.0, Albumin/Globulin Ratio 1.1 12/18/23 05:25: POC Glucose 127 H Medical History: Medical History (Updated 12/18/23 @ 03:58 by Jerson Duque APRN) Asthma Asthma exacerbation Dyspnea on exertion Edema of both lower extremities Encounter for screening for malignant neoplasm of lung Gastroesophageal reflux disease Hilar lymphadenopathy History of asthma Hyperglycemia Hyperlipidemia Hypertensive disorder Lung nodule Mediastinal lymphadenopathy APARNA (obstructive sleep apnea) APARNA (obstructive sleep apnea) Osteoarthritis Stopped smoking with greater than 30 pack year history Tremor Assessment and Plan Assessment and plan all Dx Assessment and Plan for all problems:: Pharmacokinetic dosing service Objective: Patient: Floor: Age: 63 yo Serum creatinine: 1.20 mg/dL Height: 65.0 Inches Weight (kg): 99.8 Assessment: IBW (kg): 57.00 Dosing wt(kg): 99.8 Estimated Creatinine clearance (ml/min): 42.6 CRCL method: Cockcroft and Gault using ibw(default). Drug selected: Vancomycin Loading dose (mg): Vd (liters): 79.8 (factor used: 0.8 L/kg) Michael (hr-1): 0.040 Half life (hrs): 17.33 CLvanco=?? 3.192 L/hr Recommended dose: 1750 mg Interval: 24 hrs Infusion time (hrs): 2.0 Predicted peak (mcg/mL): 34.2 Predicted trough (mcg/mL): 14.19 Total body weight is being used for vancomycin dosing. Recommendations: Give Vancomycin 1750 mg q 24 hrs with an expected Cpeak of 34.2 mcg/ml and an expected Ctrough of 14.19 mcg/ml AUC 0-24 /HORACE Data: HORACE 0.5 mcg/mL:?? AUC/HORACE:? 1096.5 HORACE 1.0 mcg/mL:?? AUC/HORACE:? 548.2 --------- HORACE 1.5 mcg/mL:?? AUC/HORACE:? 365.5 HORACE 2.0 mcg/mL:?? AUC/HORACE:? 274.1 Thank you for the consult, will continue to follow. -CEE LOPEZ, NOHEMYD
[2023-12-18] MEDS: CEFEPIME HCL 2 GM in 0.9 % SODIUM CHLORIDE 100 ML IV ×2 (09:46→15:40)
[2023-12-18] MEDS: PANTOPRAZOLE 40MG TABLET 40 MG PO (09:46)
[2023-12-18] MEDS: ENOXAPARIN 40MG/0.4ML SYRINGE 40 MG SQ (09:46)
[2023-12-18] MEDS: ACETAMINOPHEN 325MG TAB 650 MG PO ×2 (09:49→18:19)
--- NOTE | 2023-12-18 09:56 | HMH.PHAINT1 ---
Pharmacy Intervention Comments: Home med list verified with patient at bedside and with external pharmacy list.
--- NOTE | 2023-12-18 16:38 | PC.NURSE ---
PT HAS RESTED WELL T/O THE SHIFT. EATING AND DRINKING FAIR. PT TOLERATED SITTING UP IN THE CHAIR THIS SHIFT. BP MAINTAINED WITH LEVOPHED DRIP AT 2 MCG/MIN FOR SEVERAL HOURS. AT 1615 PHYSICIAN STATED TO TURN OFF LEVOPHED DRIP TO SEE HOW PT DOES. LUNG SOUNDS DIMINISHED WITH LT SIDED CRACKLES. ABDOMEN SOFT/NON TENDER WITH ACTIVE BOWEL SOUNDS. ROOM AIR SATURATION WAS 93%. BATH AND BED CHANGED THIS SHIFT. PT HAS VOIDED SINCE CATHETER WAS DC'D AT 1630. REPORT HAND OFF TO VALENCIA CUADRA RN.
[2023-12-18] MEDS: ONDANSETRON 4MG/2ML VIAL 4 MG IV (17:27)
[2023-12-18] MEDS: MONTELUKAST SODIUM 10MG TAB 10 MG PO (18:19)
[2023-12-18] MEDS: VANCOMYCIN/WATER FOR INJ (PEG) 1.75 GM/350 ML PIGGYBACK IV (23:48)
[2023-12-19] VITALS (10 sets, daily range): BP systolic 89–137; BP diastolic 59–96; PULSE 80–100; RESP 18–20; TEMP 36.5–36.9; O2SAT 92–99
[2023-12-19] MEDS: CEFEPIME HCL 2 GM in 0.9 % SODIUM CHLORIDE 100 ML IV ×2 (00:13→08:20)
[2023-12-19] MEDS: ACETAMINOPHEN 325MG TAB 650 MG PO ×2 (01:12→13:42)
[2023-12-19] MEDS: METRONIDAZ/SOD CHL 500 MG/100 ML PIGGYBACK 100 MG IV ×2 (03:42→14:11)
[2023-12-19] MEDS: FLUTICASONE/UMECLIDIN/VILANTER 100/62.5/25MCG INHALER 1 PUFF IH (06:53)
[2023-12-19 08:12] LABS: Basophils # 0.1 K/mm3 (0-0.2); Basophils % 0.4 % (0.1-2.0); Eosinophils # 0.3 K/mm3 (0.0-0.4); Eosinophils % 2.5 % (0.1-12.0); Hematocrit 31.6 % (37.0-47.0); Hemoglobin 10.3 g/dL (12.2-16.2); Lymphocytes # 1.1 K/mm3 (0.7-4.5); Lymphocytes % 9.1 % (10-50); Mean Corpuscular HGB Conc 32.7 g/dL (31.8-35.4); Mean Corpuscular Hemoglobin 30.7 pg (27.0-31.2); Mean Corpuscular Volume 94.1 fl (81-99); Mean Platelet Volume 8.3 fl (7.4-10.4); Monocytes # 0.6 K/mm3 (0.1-1.0); Monocytes % 4.9 % (1.7-9.3); Neutrophils # 10.2 K/mm3 (1.8-7.8); Platelet Count 281 K/mm3 (142-424); Red Blood Count 3.36 M/mm3 (4.20-5.40); Red Cell Distribution Width 17.2 % (11.5-17.5); White Blood Count 12.2 K/mm3 (4.8-10.8)
[2023-12-19] MEDS: ENOXAPARIN 40MG/0.4ML SYRINGE 40 MG SQ (08:20)
[2023-12-19] MEDS: PANTOPRAZOLE 40MG TABLET 40 MG PO (08:20)
[2023-12-19] MEDS: ONDANSETRON 4MG/2ML VIAL 4 MG IV (08:26)
[2023-12-19 08:36] LABS: Alanine Aminotransferase 12 U/L (12-78); Albumin Level 3.1 g/dl (3.5-5.0); Albumin/Globulin Ratio 1.1 (1.1-1.8); Alkaline Phosphatase 85 U/L (38-126); Anion Gap 10.2 mEq/L (5-15); Aspartate Amino Transferase 23 U/L (14-36); Bilirubin,Total 0.4 mg/dl (0.2-1.3); Blood Urea Nitrogen 15 mg/dl (7-17); Calcium 8.4 mg/dl (8.4-10.2); Carbon Dioxide 24 mmol/L (22.0-30.0); Chloride 107 mmol/L (98-107); Creatinine Clearance Estimated 90 mL/min (50-200); Estimated Glomerular Filt Rate 84 ml/min (>60); GFR (African American) 102 ML/MIN (>60); Globulin 2.9 g/dL (1.3-3.2); Glucose 104 mg/dl (74-100); Potassium 4.2 mmoL/L (3.5-5.1); Sodium 137 mmol/L (136-145)
[2023-12-19] MEDS: SODIUM PHOS/BIPHOSPHATE FLEET 133ML ENEMA 133 ML RC (11:46)
[2023-12-19] MEDS: SENNOSIDES 8.6MG/DOCUSATE 50MG TABLET 1 TAB PO (11:46)
--- NOTE | 2023-12-19 11:58 | HMH.OTEV ---
OT Inpatient Evaluation Rehab OT IP Evaluation Start: 12/19/23 08:08 Freq: ONCE Status: Active Protocol: Document 12/19/23 11:54 CHARLINEKARLIE (Rec: 12/19/23 11:58 JULIET [id number]) Rehab OT IP Assessment Subjective History This is a 63-year-old obese female with extensive PMHx including but no limited to TIA, chronic tremor, HTN, HLD, Chronic pain, constipation, former smoker who presents emergency department for evaluation of altered mental status. History is obtained by patient at bedside and ED documentation. Patient reported no acute complaints however she took a 20 mg oxycodone that was not prescribed to her approximately 2 hours prior to arrival and began speaking nonsensically causing to bring her here for continued evaluation. Currently patient is oriented to self and place. Denies abdominal pain, chest pain, other acute complaints at this time. Being admitted for further work up Patient lives in 1 story home with 3-4 LAUREN with per patient report. Patient uses a RW to ambulate at times. assist with Patient's ADLs and fx'l mobility as needed as well as transportation. Subjective I can get up. Instructed Patient on safety awareness during bed mobility, transfers, ADLs of toileting during initial evaluation. Patient required Min A to complete all tasks. No LOB noted. Objective Patient Orientation Person,Name,Age,Birthday,Year Right Upper Extremity Gross ROM WFL Left Upper Extremity Gross ROM WFL Bed Mobility bed mobility - supine/sit Assist Level Minimal x 1 (25% assist) Transfer Training Sit/Stand/Pivot Transfer Assist Level Minimal x 1 (25% assist) Chair Transfer Ability Minimal x 1 (25% assist) Chair Transfer Technique Sit to/from Ambulatory Chair Transfer Assistive Devices Rolling Walker Lower Body Dressing Ability Minimal Assistance Performing Toilet Hygiene Ability Independent Overall Commode/Toilet Transfer Ability Standby Assistance Commode/Toilet Transfer Technique Sit to/from Ambulatory Rehab OT IP prob,goals,plan Problems Date of Evaluation: 12/19/23 OT IP Problems Bed Mobility,Transfers,Balance ,Self care,Safety Rehab Potential Rehab Potential Good Equipment Needs Assistive Devices Rolling / Wheeled Walker Plan OT intervention Plan Bed Mobility,Transfers,Balance ,Self care,Safety,Therapeutic Exercise OT Plan Frequency Daily Duration LOS Discharge Goals Bed Mobility Ability Standby Assistance Sit to Stand Chair Transfer Ability Supervision/Stand by Chair Transfer Ability Supervision/Stand by Chair Transfer Technique Sit to/from Ambulatory Chair Transfer Assistive Devices Rolling Walker Discharge Plan OT Discharge Plan Patient will continue to benefit from skilled OT services in order to improve fx'l mobility and ADLs along with safety to prevent fall risk. Patient will return home with . Recommend HH as needed. Eval Complexity Eval Charge Codes 38218 - Low Complexity PHYSICIAN CERTIFICATION: I certify the specified therapy services for Laura Mallory are required, authorized, and reviewed every 30 days.
--- NOTE | 2023-12-19 12:37 | HMH.PTEV ---
Physical Therapy Evaluation Rehab PT IP Evaluation Start: 12/19/23 08:08 Freq: ONCE Status: Active Protocol: Document 12/19/23 08:50 PEDRO (Rec: 12/19/23 10:27 PEDRO [email or web address]) Subjective/History History History Per history and physical: This is a 63-year-old obese female with extensive PMHx including but no limited to TIA, chronic tremor, HTN, HLD, Chronic pain, constipation, former smoker who presents emergency department for evaluation of altered mental status. History is obtained by patient at bedside and ED documentation. Patient reported no acute complaints however she took a 20 mg oxycodone that was not prescribed to her approximately 2 hours prior to arrival and began speaking nonsensically causing to bring her here for continued evaluation. Currently patient is oriented to self and place. Denies abdominal pain, chest pain, other acute complaints at this time. Being admitted for further work up. Subjective Subjective Pt pleasantly agreeable to PT evaluation. Pt reports the following PLOF: Lives with and requires assistance for ADLs. does all driving. Uses primarily a RW for ambulation. Pt reports she does well with ambulation around the house. PT unable to get accurate assessment of ambulation ability this date d/t time constraints/pt bathroom duties . New diagnosis of cancer in past 12 No months? Rehab PT IP Eval Objective Appearance Patient Behavior Appropriate,Cooperative Patient Orientation Person,Place Speech Pattern Clear Ambulation Patient Able to Ambulate Yes Ambulation Observation Ambulation Distance (feet) 2 Balance Ability to Arise Able, w/o using arms Transfers Bed Transfer Ability Minimal x 1 (25% assist) Chair Transfer Ability Minimal x 2 (25% assist) Sit to Stand Bed Transfer Ability Minimal x 1 (25% assist) Rehab PT IP prob,goals,plan Problems Date of Evaluation: 12/19/23 PT IP Problems Bed Mobility,Transfers,Gait, Balance,Self care,Safety Rehab Potential Rehab Potential Good Equipment Needs Assistive Devices Rolling / Wheeled Walker Plan Other Intervention Plan 1-2 times daily PT Plan Frequency Daily Duration LOS Discharge Goals Bed Transfer Ability Supervision/Stand by Sit to Stand Chair Transfer Ability Supervision/Stand by Ambulation Assistive Device Rolling Walker Ambulation Distance (feet) 20 Discharge Plan PT Discharge Plan PT safe to return home with care/assistance provided as needed by . While at [facility], pt would benefit from skilled physical therapy to address deficits, decrease caregiver burden, and prevent further functional decline. Eval Complexity Eval Charge Codes 44361 - High Complexity PHYSICIAN CERTIFICATION: I certify the specified therapy services for Laura Mallory are required, authorized, and reviewed every 30 days.
[2023-12-19] MEDS: MINERAL OIL ENEMA 133ML 133 ML RC (13:15)
--- NOTE | 2023-12-19 15:30 | P.DS_ITS ---
General Admission date:: 12/18/23 Discharge date: 12/19/23 HPI HPI HPI: This is a 63-year-old obese female with extensive PMHx including but no limited to TIA, chronic tremor, HTN, HLD, Chronic pain, constipation, former smoker who presents emergency department for evaluation of altered mental status. History is obtained by patient at bedside and ED documentation. Patient reported no acute complaints however she took a 20 mg oxycodone that was not prescribed to her approximately 2 hours prior to arrival and began speaking nonsensically causing to bring her here for continued evaluation. Currently patient is oriented to self and place. Denies abdominal pain, chest pain, other acute complaints at this time. Being admitted for further work up. Hospital Course Hospital Course Hospital Course: 63-year-old obese female with extensive PMHx including but no limited to TIA, chronic tremor, HTN, HLD, Chronic pain, constipation, former smoker who presents emergency department for evaluation of altered mental status. patient has no acute complaint until she took 20 mg Oxycodone for chronic pain. patient's reported patient became disoriented and speaking non sense. On arrival, patient presented hypotensive, tachycardic and low grade temp. 100.3F. patient slowly recovered mental status. sepsis work up initiated. CT of Head, chest and abdomen ordered. CVA was ruled out. Chest presenting with bibasilar atelectasis. Abdomen concerning for ileitis. Imaging reviewed. labs were signi ficant for leukocytosis, FER, electrolytes disturbances. Patient was started on levophed and broad Abx. BC drawn . Discussed with ER for further work up and management. Admitted. Patient did well. Blood pressure normalized. White cell count normalized. Mentation at baseline. Evaluated by therapy, stable for discharge home. Problems addressed as follows: -Altered mental status secondary to accidental opioid intake: Resolved with Narcan and monitoring. Able to advance diet. Mentation improved to baseline. -Hypotension: -Suspected septic shock -Ileitis White cell count elevated at 20 on admission along with necessitating Levophed. Patient's blood pressure improved over the first 24 hours, able to wean off Levophed. Cultures negative during admission. Abdominal imaging positive for ileitis. Found to be constipated as well. Tolerating IV antibiotics, transitioned to levofloxacin to complete empiric 7-day course. White cell count is normalized by day of discharge. Given clinical improvement, suspect component of her shock state was related to opiate overdose. Will monitor cultures after discharge. Overall feeling better, evaluated by therapy, stable to discharge home. -Acute kidney injury: Creatinine elevated to 2 on admission, returned normal with gentle fluid hydration. -History of chronic pain which osteoporotic and DJD : Pain management avoid opioids, okay to resume tramadol, Tylenol as needed Otherwise, resume home medications for tach and zinc fluting aspirin, Lipitor, Cymbalta,, Trelegy. Spent 30 minutes in discharge counseling, documentation, chart review, and direct care with patient. Exam Data for Last 24 hours Vital signs and Labs for Last 24 Hours: Temp Pulse Resp BP Pulse Ox O2 Del Method O2 Flow Rate 97.7 F 100 H 19 137/96 H 99 Room Air 2 12/19/23 11:30 12/19/23 12:00 12/19/23 12:00 12/19/23 12:00 12/19/23 12:00 12/19/23 15:00 12/18/23 15:42 Laboratory Results - last 24 hr 12/19/23 08:00: WBC 12.2 H D, RBC 3.36 L, Hgb 10.3 L, Hct 31.6 L, MCV 94.1, MCH 30.7, MCHC 32.7, RDW 17.2, Plt Count 281, MPV 8.3, Neut % (Auto) 83.0 H, Lymph % (Auto) 9.1 L, [place] % (Auto) 4.9, Eos % (Auto) 2.5, Baso % (Auto) 0.4, Neut # (Auto) 10.2 H, Lymph # (Auto) 1.1, [place] # (Auto) 0.6, Eos # (Auto) 0.3, Baso # (Auto) 0.1, Sodium 137, Potassium 4.2, Chloride 107, Carbon Dioxide 24, Anion Gap 10.2, BUN 15 D, Creatinine 0.70 D, Estimated Creat Clear 90, Estimated GFR 84, Est GFR ( Amer) 102 D, Glucose 104 H, Calcium 8.4, Magnesium 2.0, Total Bilirubin 0.4, AST 23, ALT 12, Alkaline Phosphatase 85, Total Protein 6.0 L, Albumin 3.1 L, Globulin 2.9, Albumin/Globulin Ratio 1.1 I & O for Last 24 hours: Intake & Output 12/16/23 12/17/23 12/18/23 12/19/23 23:59 23:59 23:59 23:59 Intake Total 34.376 / 34.376 1504.126 / 1704.126 770 / 770 Output Total 4550 / 4550 0 / 0 Balance 34.376 / 34.376 -3045.874 / -2845.874 770 / 770 Weight 99.798 kg 99.798 kg Constitutional Constitutional: no acute distress, obese and chronically ill appearing *Routine HEENT Exam Head: Present normocephalic Eye: Present EOMI and PERRL ENT: Present mucous membranes moist Comments: Tremor in bottom jaw *Routine Neck Exam Neck: Present supple; Absent lymphadenopathy *Routine Respiratory Exam Respiratory: Present prolonged expiratory phase and normal respiratory effort; Absent rhonchi, wheezes or crackles *Routine Cardiovascular Exam Cardiovascular: Present RRR *Routine Abdominal Exam Abdominal: Present soft, normoactive bowel sounds and tenderness (Nonfocal); Absent distended *Routine Rectal Exam Patient deferred: visual exam *Routine Exam Patient deferred: external exam *Routine Extremities Exam Extremities: Absent cyanosis, clubbing or edema *Routine Skin Exam Skin: Present warm; Absent rash *Routine Neurological Exam Neurological: Present alert, oriented X3 and moving all extremities; Absent altered mental status Results Data Completed and Pending Labs on day of discharge: Labs from last 24 hours 12/19/23 08:00 WBC 12.2 H D RBC 3.36 L Hgb 10.3 L Hct 31.6 L MCV 94.1 MCH 30.7 MCHC 32.7 RDW 17.2 Plt Count 281 MPV 8.3 Neut % (Auto) 83.0 H Lymph % (Auto) 9.1 L [place] % (Auto) 4.9 Eos % (Auto) 2.5 Baso % (Auto) 0.4 Neut # (Auto) 10.2 H Lymph # (Auto) 1.1 [place] # (Auto) 0.6 Eos # (Auto) 0.3 Baso # (Auto) 0.1 Sodium 137 Potassium 4.2 Chloride 107 Carbon Dioxide 24 Anion Gap 10.2 BUN 15 D Creatinine 0.70 D Estimated Creat Clear 90 Estimated GFR 84 Est GFR ( Amer) 102 D Glucose 104 H Calcium 8.4 Magnesium 2.0 Total Bilirubin 0.4 AST 23 ALT 12 Alkaline Phosphatase 85 Total Protein 6.0 L Albumin 3.1 L Globulin 2.9 Albumin/Globulin Ratio 1.1 DS: Diagnosis Discharge Diagnosis (1) Accidental opiate poisoning: Status: Acute Code(s): T40.601A - Poisoning by unspecified narcotics, accidental (unintentional), initial encounter Qualifiers: Encounter type: initial encounter Qualified Code(s): T40.601A - Poisoning by unspecified narcotics, accidental (unintentional), initial encounter (2) Hypotension (arterial): Status: Acute Code(s): I95.9 - Hypotension, unspecified Qualifiers: Hypotension type: unspecified hypotension type Qualified Code(s): I95.9 - Hypotension, unspecified (3) Ileitis: Status: Acute Code(s): K52.9 - Noninfective gastroenteritis and colitis, unspecified (4) FER (acute kidney injury): Status: Acute Code(s): N17.9 - Acute kidney failure, unspecified (5) Chronic back pain: Status: Acute Code(s): M54.9 - Dorsalgia, unspecified; G89.29 - Other chronic pain Qualifiers: Back pain laterality: unspecified Back pain location: back pain in unspecified location Qualified Code(s): M54.9 - Dorsalgia, unspecified; G89.29 - Other chronic pain (6) Constipation: Status: Acute Code(s): K59.00 - Constipation, unspecified Qualifiers: Constipation type: unspecified constipation type Qualified Code(s): K59.00 - Constipation, unspecified (7) Obesity: Status: Chronic Code(s): E66.9 - Obesity, unspecified Qualifiers: Body mass index: BMI 36.0-36.9 Obesity classification: adult class 2 (BMI 35 - 39.9) Obesity type: with alveolar hypoventilation Serious obesity comorbidity presence: with serious comorbidity Qualified Code(s): E66.2 - Morbid (severe) obesity with alveolar hypoventilation; Z68.36 - Body mass index [BMI] 36.0-36.9, adult Meds Home Medications and Allergies Home Medications Medication Instructions Recorded Confirmed Type aspirin 81 mg tablet,delayed 81 mg PO DAILY 01/07/18 12/18/23 History release (Adult Low Dose Aspirin) atorvastatin 40 mg tablet 40 mg PO HS 07/22/22 12/18/23 History cholecalciferol (vitamin D3) 50 2,000 unit PO DAILY 03/06/23 12/18/23 History mcg (2,000 unit) capsule duloxetine 60 mg capsule,delayed 60 mg PO DAILY 08/11/23 12/18/23 History release lorazepam 0.5 mg tablet 0.5 mg PO DAILY PRN Anxiety 08/11/23 12/18/23 History omeprazole 40 mg capsule,delayed 40 mg PO DAILY 10/01/23 12/18/23 History release albuterol sulfate 90 mcg/actuation 2 puff inhalation Q6H PRN 12/18/23 12/18/23 History aerosol inhaler (Ventolin HFA) Shortness Of Breath carvedilol 3.125 mg tablet 3.125 mg PO BID 12/18/23 12/18/23 History ergocalciferol (vitamin D2) 1,250 50,000 unit PO WEEKLY 12/18/23 12/18/23 History mcg (50,000 unit) capsule (Vitamin D2) fluticasone fur. 100 mcg-umeclid 1 inh inhalation DAILY 12/18/23 12/18/23 History 62.5 mcg-vilant 25 mcg inhalat.powder (Trelegy Ellipta) gabapentin 100 mg capsule 100 mg PO TID 12/18/23 12/18/23 History sacubitril 24 mg-valsartan 26 mg 1 tab PO BID 12/18/23 12/18/23 History tablet (Entresto) spironolactone 25 mg tablet 25 mg PO BID 12/18/23 12/18/23 History topiramate 100 mg tablet 100 mg PO BID 12/18/23 12/18/23 History tramadol 50 mg tablet 50 mg PO TID PRN Pain 12/18/23 12/18/23 History furosemide 40 mg tablet 40 mg PO DAILY 30 days #0 tabs 12/19/23 12/18/23 Rx levofloxacin 500 mg tablet 500 mg PO DAILY 5 days #5 tabs 12/19/23 Rx polyethylene glycol 3350 17 17 g PO BID Constipation 30 days 12/19/23 12/18/23 Rx gram/dose oral powder (ClearLax) #0 grams New Prescriptions to Start Prescriptions: levofloxacin Duy Hahn Allergies Allergy/AdvReac Type Severity Reaction Status Date / Time sumatriptan Allergy Severe Difficulty Verified 11/03/23 15:12 Breathing fexofenadine [FEXOFENADINE] Allergy Intermediate SICK Verified 11/03/23 15:12 amoxicillin [From AUGMENTIN] Allergy Unknown SOA Verified 11/03/23 15:12 clavulanic acid Allergy Unknown SOA Verified 11/03/23 15:12 [From AUGMENTIN] naproxen [NAPROXEN] Allergy Unknown SWELLING Verified 11/03/23 15:12 Discharge Plan Disposition Patient Disposition: Home, Self-Care Condition: Fair Discharge Order Discharge Orders: Discharge Order (Routine); Ordered 12/19/23 Ordered By: Duy Hahn Follow up Plan Follow up with: Manas Jenkins MD [Primary Care Provider] - 12/29/23 11:15 am Prescriptions/Medication Reconciliation: New levofloxacin 500 mg tablet 500 mg PO DAILY 5 Days Qty: 5 0RF Continued aspirin [Adult Low Dose Aspirin] 81 mg tablet,delayed release (DR/EC) 81 mg PO DAILY cholecalciferol (vitamin D3) 50 mcg (2,000 unit) capsule 2,000 unit PO DAILY atorvastatin 40 mg tablet 40 mg PO HS lorazepam 0.5 mg tablet 0.5 mg PO DAILY PRN (Reason: Anxiety) duloxetine 60 mg capsule,delayed release(DR/EC) 60 mg PO DAILY omeprazole 40 mg capsule,delayed release(DR/EC) 40 mg PO DAILY tramadol 50 mg tablet 50 mg PO TID PRN (Reason: Pain) spironolactone 25 mg tablet 25 mg PO BID carvedilol 3.125 mg tablet 3.125 mg PO BID gabapentin 100 mg capsule 100 mg PO TID ergocalciferol (vitamin D2) [Vitamin D2] 1,250 mcg (50,000 unit) capsule 50,000 unit PO WEEKLY albuterol sulfate [Ventolin HFA] 90 mcg/actuation HFA aerosol inhaler 2 puff INHALATION Q6H PRN (Reason: Shortness Of Breath) topiramate 100 mg tablet 100 mg PO BID Entresto 24-26 mg tablet 1 tab PO BID Trelegy Ellipta 100-62.5-25 mcg blister with device 1 inh INHALATION DAILY Changed furosemide 40 mg tablet 40 mg PO DAILY 30 Days Qty: 0 0RF polyethylene glycol 3350 [ClearLax] 17 gram/dose powder 17 g PO BID 30 Days Qty: 0 0RF Problem Reconciliation Problems Reviewed?: Yes Patient Discharge Instructions ACTIVITY: Continue current activity DIET: continue same diet Patient Instructions: DI for Altered Mental Status Providers Primary Care Provider: Manas Jenkins Admit Provider: Duy Hahn Attending Provider: Duy Hahn
--- NOTE | 2023-12-19 15:52 | HMH.PHAINT1 ---
Pharmacy Intervention Comments: DISCHARGE MEDICATION COUNSELING PROVIDED. DISCUSSED THE FOLLOWING CHANGES: -START LEVOFLOXACIN (DAILY, TAKE WITH FOOD, N/V/D POSSIBLE) -CHANGE FUROSEMIDE FROM TWICE DAILY TO ONCE DAILY -CHANGE MIRALAX FROM TWICE DAILY NEEDED TO TWICE DAILY. PATIENT VERBALIZED NO QUESTIONS AT THIS TIME.
--- NOTE | 2023-12-22 14:47 | CARE MANAGER ---
Contacted patient related to hospital discharge. She states she is doing well. She denies questions or concerns. She picked up her antibiotic and is aware of her follow up appointment. CISCO Gordillo
== END 2023-12-19 16:29 | disposition home or self-care (01) | DRG 918 ==
LOC: ER 21:46 → ICU 12-18 00:21 → 2ND 12-18 15:25
PROVIDERS: Nurse Practitioner Family; Admitting Provider Internal Medicine Adolescent Medicine; Emergency Provider Emergency Medicine; PCP Family Medicine; Visit Provider Internal Medicine Adolescent Medicine
DX: T40.601A Poisoning by unspecified narcotics, accidental (unintentional), initial encounter (principal); N17.9 Acute kidney failure, unspecified; I10 Essential (primary) hypertension; E78.5 Hyperlipidemia, unspecified; G89.29 Other chronic pain; K59.00 Constipation, unspecified; K21.9 Gastro-esophageal reflux disease without esophagitis; G47.33 Obstructive sleep apnea (adult) (pediatric); M19.90 Unspecified osteoarthritis, unspecified site; Z86.73 Personal history of transient ischemic attack (TIA), and cerebral infarction without residual deficits; Z87.891 Personal history of nicotine dependence; I95.9 Hypotension, unspecified; E66.9 Obesity, unspecified; Z68.36 Body mass index [BMI] 36.0-36.9, adult
CPT/HCPCS: 36415; 51702; 70450; 71045; 71275; 74177; 80053; 81001; 82803; 82962; 83605; 83735; 85007; 85025; 85610; 87040; 87636; 93005; 94640; 97163; 97165; 99291; J2310; J2405; J3370; Q9967

== ENCOUNTER 2024-01-07 14:50 | Outpatient (CLI) | payer MEDICARE, OTHER, SELFPAY ==
[2024-01-07 14:54] LABS: Microscopic, Urine URINE MICROSCOPIC (MICROSCOPIC)
[2024-01-07 15:12] LABS: Appearance,Urine CLEAR (Clear); Bilirubin,Urine Negative (Negative); Blood, Urine Negative (Negative); Color,Urine YELLOW (Yellow); Glucose,Urine (UA) Negative (Negative); Ketones,Urine Negative (Negative); Leukocyte Esterase,Urine 1+ (Negative); Nitrate,Urine Negative (Negative); Protein,Urine Negative (Negative); Urobilinogen,Urine 0.2 EU/dl (0.2)
[2024-01-07 15:39] LABS: Squamous Epithelial Cell,Urine Occasional #/hpf (0-5)
== END 2024-01-07 23:59 ==
PROVIDERS: PCP Family Medicine; Visit Provider Family Medicine
DX: R30.0 Dysuria (principal); B96.1 Klebsiella pneumoniae [K. pneumoniae] as the cause of diseases classified elsewhere
CPT/HCPCS: 81001; 87086

== ENCOUNTER 2024-01-24 14:02 | Emergency (ER) | payer MEDICARE, OTHER, SELFPAY ==
[2024-01-24 14:14] VITALS: BP 102/75; PULSE 73; O2SAT 95
[2024-01-24 14:16] VITALS: BP 102/75; PULSE 78; RESP 16; TEMP 36.7; O2SAT 96; BMI 39.4
--- NOTE | 2024-01-24 14:35 | CT_ITS ---
PROCEDURE INFORMATION: Exam: CT Cervical Spine Without Contrast Exam date and time: 01/24/2024 3:17 PM Age: 63 years old Clinical indication: Injury or trauma; Fall; Blunt trauma; Additional info: Fall, elderly, head inj TECHNIQUE: Imaging protocol: Computed tomography of the cervical spine without contrast. Radiation optimization: All CT scans at this facility use at least one of these dose optimization techniques: automated exposure control; mA and/or kV adjustment per patient size (includes targeted exams where dose is matched to clinical indication); or iterative reconstruction. COMPARISON: CT ANGIO NECK 01/05/2023 10:40 PM FINDINGS: Bones/joints: No acute fracture of the cervical spine. No subluxation or dislocation of the cervical spine. Intervertebral disc space narrowing C3/C4 and C5 through C7 may represent degenerative disc disease.. Anterior osteophyte formation C2 through C6. Posterior osteophyte formation C5 through C7. Degenerative changes in the facets at multiple levels. Degenerative changes at C1/C2 Lungs: Lung apices are normal. Thyroid: The thyroid is unremarkable Soft tissues: Unremarkable. Other findings: Motion artifact degrades some of the images IMPRESSION: 1. No acute fracture of the cervical spine. 2. No subluxation or dislocation of the cervical spine. 3. Intervertebral disc space narrowing C3/C4 and C5 through C7 may represent degenerative disc disease..
--- NOTE | 2024-01-24 14:35 | CT_ITS ---
PROCEDURE INFORMATION: Exam: CT Head Without Contrast Exam date and time: 01/24/2024 3:14 PM Age: 63 years old Clinical indication: Injury or trauma; Fall; Blunt trauma (contusions or hematomas); Additional info: Fall, elderly, head inj TECHNIQUE: Imaging protocol: Computed tomography of the head without contrast. Radiation optimization: All CT scans at this facility use at least one of these dose optimization techniques: automated exposure control; mA and/or kV adjustment per patient size (includes targeted exams where dose is matched to clinical indication); or iterative reconstruction. 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 No acute intracranial hemorrhage.. There is mild diffuse heterogeneity of the white matter attenuation, consistent with chronic white matter ischemic changes. Mild cerebral atrophy Cerebral ventricles: No ventriculomegaly. Paranasal sinuses: Visualized sinuses are unremarkable. No fluid levels. Mastoid air cells: Visualized mastoid air cells are well aerated. Bones/joints: Unremarkable. No acute fracture. Soft tissues: Unremarkable. IMPRESSION: No acute intracranial hemorrhage..
--- NOTE | 2024-01-24 14:36 | XR_ITS ---
PROCEDURE INFORMATION: Exam: XR Left Knee Exam date and time: 01/24/2024 2:52 PM Age: 63 years old Clinical indication: Injury or trauma; Fall; Blunt trauma; Knee; Left; Additional info: Fall, pain TECHNIQUE: Imaging protocol: Radiologic exam of the left knee. Views: 3 views. COMPARISON: CR XR KNEE LT 4V 07/18/2022 1:05 PM FINDINGS: Bones/joints: Small effusion without fracture or subluxation. Moderate tricompartmental osteoarthritis. Soft tissues: Normal. IMPRESSION: 1. Small effusion without fracture or subluxation. 2. Moderate tricompartmental osteoarthritis.
--- NOTE | 2024-01-24 14:36 | XR_ITS ---
PROCEDURE INFORMATION: Exam: XR Left Hip Exam date and time: 01/24/2024 2:46 PM Age: 63 years old Clinical indication: Injury or trauma; Fall; Blunt trauma (contusions or hematomas); Bilateral; Pelvic region; Additional info: Fall, pain TECHNIQUE: Imaging protocol: Radiologic exam of the left hip. Views: 2 or 3 views hip with pelvis when performed. COMPARISON: CT ABDOMEN PELVIS W CON 12/17/2023 11:17 PM FINDINGS: Bones/joints: Arthritic changes seen in both hips more severe on the right which is moderate superior laterally. No acute fracture, dislocation or Soft tissues: Unremarkable. IMPRESSION: No acute findings. Subluxation.
--- NOTE | 2024-01-24 14:36 | XR_ITS ---
PROCEDURE INFORMATION: Exam: XR Left Femur Exam date and time: 01/24/2024 2:50 PM Age: 63 years old Clinical indication: Injury or trauma; Fall; Blunt trauma; Thigh or upper leg; Left; Additional info: Fall, pain TECHNIQUE: Imaging protocol: Radiologic exam of the left femur. Views: 2 views. COMPARISON: CR XR HIP LT 2-3V W/PELVIS 01/24/2024 2:46 PM FINDINGS: Bones/joints: Arthritic changes with spurring at the knee. Mild arthritic changes involving the hip. No femur fracture, dislocation or subluxation. Soft tissues: Unremarkable. IMPRESSION: No acute abnormality. Arthritis most severe at the knee.
--- NOTE | 2024-01-24 14:36 | XR_ITS ---
PROCEDURE INFORMATION: Exam: XR Chest Exam date and time: 01/24/2024 3:00 PM Age: 63 years old Clinical indication: Chest wall pain; Additional info: Fall, pain TECHNIQUE: Imaging protocol: Radiologic exam of the chest. Views: 2 views. COMPARISON: CT ANGIO CHEST PE PROTOCOL 12/17/2023 11:17 PM FINDINGS: Lungs: Unremarkable. No consolidation. Pleural spaces: Unremarkable. No pleural effusion. No pneumothorax. Heart/Mediastinum: Unremarkable. No cardiomegaly. Diaphragm: Elevated left hemidiaphragm Bones/joints: Screws in the region of the left shoulder IMPRESSION: No acute process
[2024-01-24 14:45] VITALS: BP 170/57; PULSE 75; O2SAT 96
--- NOTE | 2024-01-24 15:26 | HMH.EDGENADL ---
Discharge Plan Disposition Patient Disposition: Home, Self-Care Prescriptions Prescriptions: No Action aspirin [Adult Low Dose Aspirin] 81 mg tablet,delayed release (DR/EC) 81 mg PO DAILY cholecalciferol (vitamin D3) 50 mcg (2,000 unit) capsule 2,000 unit PO DAILY atorvastatin 40 mg tablet 40 mg PO HS lorazepam 0.5 mg tablet 0.5 mg PO DAILY PRN (Reason: Anxiety) duloxetine 60 mg capsule,delayed release(DR/EC) 60 mg PO DAILY albuterol sulfate [Ventolin HFA] 90 mcg/actuation HFA aerosol inhaler 2 inh inhalation Q6H PRN (Reason: shortness of breath or wheezing) 90 Days Qty: 18 3RF Trelegy Ellipta 100-62.5-25 mcg blister with device 1 inh inhalation DAILY 90 Days Qty: 90 3RF ipratropium-albuterol 0.5 mg-3 mg(2.5 mg base)/3 mL solution for nebulization 3 ml inhalation QID PRN (Reason: shortness of breath or wheezing) 90 Days Qty: 270 3RF omeprazole 40 mg capsule,delayed release(DR/EC) 40 mg PO DAILY spironolactone 25 mg tablet See Rx Instructions .ROUTE .COMPLEX Qty: 60 4RF Dose Instruction: TAKE 1 TABLET BY MOUTH TWICE A DAY Rx Instructions: TAKE 1 TABLET BY MOUTH TWICE A DAY Entresto 24-26 mg tablet See Rx Instructions .ROUTE .COMPLEX Qty: 60 4RF Dose Instruction: TAKE 1 TABLET BY MOUTH TWICE A DAY Rx Instructions: TAKE 1 TABLET BY MOUTH TWICE A DAY tramadol 50 mg tablet 50 mg PO TID PRN (Reason: Pain) carvedilol 3.125 mg tablet 3.125 mg PO BID gabapentin 100 mg capsule 100 mg PO TID ergocalciferol (vitamin D2) [Vitamin D2] 1,250 mcg (50,000 unit) capsule 50,000 unit PO WEEKLY albuterol sulfate [Ventolin HFA] 90 mcg/actuation HFA aerosol inhaler 2 puff INHALATION Q6H PRN (Reason: Shortness Of Breath) topiramate 100 mg tablet 100 mg PO BID Trelegy Ellipta 100-62.5-25 mcg blister with device 1 inh INHALATION DAILY levofloxacin 500 mg tablet 500 mg PO DAILY 5 Days Qty: 5 0RF furosemide 40 mg tablet 40 mg PO DAILY 30 Days Qty: 0 0RF polyethylene glycol 3350 [ClearLax] 17 gram/dose powder 17 g PO BID 30 Days Qty: 0 0RF Referrals Follow up/Referrals: Manas Jenkins MD [Primary Care Provider] - See instructions Activity Restrictions/Add. Instructions Additional Instructions/Restrictions: You were evaluated in the emergency department today. Please keep your wound clean and dry. Apply antibiotic ointment twice a day. Do not submerge under any water. Follow-up with your primary care provider over the next 3 days for reassessment. Return to the emergency department for new or worsening symptoms. Clinical Impressions Clinical Impression: Fall, Skin tear of left upper extremity Instructions Patient Instructions: How to Prevent Falls, DI for Abrasion Discharge ED Provider: Floyd Morton General Adult HPI <Maribell Leggett DO - Last Filed: 01/24/24 16:05> General Chief complaint: Fall Stated complaint: fall at home left arm cut Time Seen by Provider: 01/24/24 14:11 Mode of Arrival: Wheelchair Source of Information: Patient and Spouse Limitations: No Limitations Description of Symptoms (Recalled from ER Triage Doc. by RN): pt states she fell about 30min ago. pt reports tripping and falling on the L side of her body. pt presents with L rib/hip pain and a LFA skin tear. pt and family deny LOC. pt is willing to take a TDAP. pt states she took one of her lorazepam [employer]. History of Present Illness HPI narrative: This patient is a 63-year-old female with history of chronic pain, COPD, degenerative disc disease, hypertension, and hyperlipidemia presenting to the emergency department for evaluation with concern for fall. Patient reports that approximate 30 minutes prior to arrival, she fell onto her left side of her body. She tripped and fell. She denies any prodrome of dizziness or other concerns. She was fine prior to this. She did not lose consciousness. She notes that she is having left chest wall pain and left hip pain. She also has a skin tear to her left arm. No other concerns noted. She has been ambulatory since. Related Data Home Medications Medication Instructions Recorded Confirmed aspirin 81 mg tablet,delayed 81 mg PO DAILY 01/07/18 12/25/23 release (Adult Low Dose Aspirin) atorvastatin 40 mg tablet 40 mg PO HS 07/22/22 12/25/23 cholecalciferol (vitamin D3) 50 2,000 unit PO DAILY 03/06/23 12/25/23 mcg (2,000 unit) capsule duloxetine 60 mg capsule,delayed 60 mg PO DAILY 08/11/23 12/25/23 release lorazepam 0.5 mg tablet 0.5 mg PO DAILY PRN Anxiety 08/11/23 12/25/23 omeprazole 40 mg capsule,delayed 40 mg PO DAILY 10/01/23 12/25/23 release albuterol sulfate 90 mcg/actuation 2 puff inhalation Q6H PRN 12/18/23 12/25/23 aerosol inhaler (Ventolin HFA) Shortness Of Breath carvedilol 3.125 mg tablet 3.125 mg PO BID 12/18/23 12/25/23 ergocalciferol (vitamin D2) 1,250 50,000 unit PO WEEKLY 12/18/23 12/25/23 mcg (50,000 unit) capsule (Vitamin D2) fluticasone fur. 100 mcg-umeclid 1 inh inhalation DAILY 12/18/23 12/25/23 62.5 mcg-vilant 25 mcg inhalat.powder (Trelegy Ellipta) gabapentin 100 mg capsule 100 mg PO TID 12/18/23 12/25/23 topiramate 100 mg tablet 100 mg PO BID 12/18/23 12/25/23 tramadol 50 mg tablet 50 mg PO TID PRN Pain 12/18/23 12/25/23 Previous Rx's Medication Instructions Recorded furosemide 40 mg tablet 40 mg PO DAILY 30 days #0 tabs 12/19/23 levofloxacin 500 mg tablet 500 mg PO DAILY 5 days #5 tabs 12/19/23 polyethylene glycol 3350 17 17 g PO BID Constipation 30 days 12/19/23 gram/dose oral powder (ClearLax) #0 grams albuterol sulfate 90 mcg/actuation 2 inh inhalation Q6H PRN shortness 12/25/23 aerosol inhaler (Ventolin HFA) of breath or wheezing 90 days #18 grams fluticasone fur. 100 mcg-umeclid 1 inh inhalation DAILY 90 days #90 12/25/23 62.5 mcg-vilant 25 mcg ea inhalat.powder (Trelegy Ellipta) ipratropium 0.5 mg-albuterol 3 mg 3 ml inhalation QID PRN shortness 12/25/23 (2.5 mg base)/3 mL nebulization of breath or wheezing 90 days #270 soln mL sacubitril 24 mg-valsartan 26 mg See Rx Instructions .Route 12/29/23 tablet (Entresto) .COMPLEX #60 tabs spironolactone 25 mg tablet See Rx Instructions .Route 12/29/23 .COMPLEX #60 tabs Allergies Allergy/AdvReac Type Severity Reaction Status Date / Time sumatriptan Allergy Severe Difficulty Verified 01/24/24 14:24 Breathing fexofenadine [FEXOFENADINE] Allergy Intermediate SICK Verified 01/24/24 14:24 amoxicillin [From AUGMENTIN] Allergy Unknown SOA Verified 01/24/24 14:24 clavulanic acid Allergy Unknown SOA Verified 01/24/24 14:24 [From AUGMENTIN] naproxen [NAPROXEN] Allergy Unknown SWELLING Verified 01/24/24 14:24 acetaminophen [From Tylenol] AdvReac Other Verified 01/24/24 14:24 PFS <Maribell Leggett DO - Last Filed: 01/24/24 16:05> [facility] Disclaimer: The information contained in this section may have been updated after the patient was seen, as this information can be updated by other users. Medical History Asthma Asthma exacerbation Brain TIA COPD mixed type Dyspnea on exertion Edema of both lower extremities Encounter for screening for malignant neoplasm of lung Gastroesophageal reflux disease Hilar lymphadenopathy History of asthma Hyperglycemia Hyperlipidemia Hypertensive disorder Lung nodule Mediastinal lymphadenopathy APARNA (obstructive sleep apnea) APARNA (obstructive sleep apnea) Osteoarthritis Stopped smoking with greater than 30 pack year history Takotsubo cardiomyopathy Tremor Surgical History H/O: H/O: hysterectomy History of arthroplasty of left shoulder History of cholecystectomy Family History Other Cancer 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 Smoking Status: Never smoker second hand exposure: Yes alcohol intake: never substance use type: denies use current occupational status: disabled Travel in the last 8 weeks: None household members: spouse housing: other marital status: current occupational exposures/hazards: No caffeine: Yes <Maribell Samir Leggett, - Last Filed: 01/24/24 16:05> ROS Obtained: Yes All systems reviewed & no additional complaints except as documented Physical Exam <Maribell Leggett - Last Filed: 01/24/24 16:05> General General appearance: alert and in no apparent distress Head Head exam: atraumatic and normocephalic Eye Eye exam: Present normal appearance, PERRL and EOMI ENT ENT exam: Present normal exam, normal oropharynx, mucous membranes moist and normal external ear exam Neck Neck exam: Present normal inspection, full ROM and trachea midline; Absent tenderness Chest Chest inspection: Present normal inspection and symmetric chest wall rise; Absent tenderness Respiratory Respiratory exam: Present normal lung sounds bilaterally; Absent respiratory distress, wheezes, stridor or accessory muscle use Cardiovascular Cardiovascular exam: Present regular rate and normal rhythm Abdominal Exam Abdominal exam: Present soft; Absent distention, tenderness or guarding Extremities Exam Extremities exam: Present normal inspection, full ROM and normal capillary refill; Absent tenderness or edema Back Exam Back exam: Present normal inspection and full ROM; Absent tenderness Neurological Exam Neurological exam: Present alert, oriented X3, CN II-XII intact and normal gait; Absent motor sensory deficit Psychiatric Psychiatric exam: Present normal affect and normal mood Skin Skin exam: Present warm, dry and other (Large skin tear/superficial abrasion to the left forearm that is hemostatic. Neurovascularly intact distally.) Medical Decision Making <Maribell Macdonaldjudy - Last Filed: 01/24/24 16:05> Medical Records Medical records reviewed: Yes I reviewed the patient's medical records. Adonay Inquiry Pt receiving controlled substance: No Vital Signs: 01/24/24 14:16 01/24/24 14:14 01/24/24 14:45 Temperature 98.1 F Temperature Source Oral Pulse Rate 73 75 Pulse Rate [Left] 78 Respiratory Rate 16 Blood Pressure 102/75 L 170/57 H Blood Pressure [Right Arm] 102/75 L Blood Pressure Mean [Right Arm] 84 Blood Pressure Source [Right Arm] Automatic Cuff Blood Pressure Position [Right Arm] Sitting 02 Sat by Pulse Oximetry 96 95 96 Oxygen Delivery Method Room Air Room Air Lab Data Lab results reviewed: Yes I reviewed the patient's lab results. Orders (Tests/Meds): ED MEDICATIONS Discontinued Medications Generic Name Dose Route Start Last Admin Trade Name Freq PRN Reason Stop Dose Admin Bacitracin 1 each 01/24/24 15:00 Bacitracin Oint 0.9gm Udp TP 01/24/24 15:01 ONCE ONE Tetanus/Reduced Diphtheria/Acell Pertussis 0.5 ml 01/24/24 15:33 01/24/24 16:02 Tet/Diphth/Pert-Adult 0.5ml Syringe IM 01/24/24 15:34 0.5 ml .ONCE ONE Administration ORDERS Category Date Time Status CT cervical spine wo con Stat Cat Scan 01/24/24 14:[address] head/brain wo con Stat Cat Scan 01/24/24 14:35 Completed XR chest 2V Stat Exams 01/24/24 14:36 Completed XR femur LT 2V Stat Exams 01/24/24 14:36 Completed XR hip LT 2-3V w/pelvis Stat Exams 01/24/24 14:36 Completed XR knee LT 3V Stat Exams 01/24/24 14:36 Completed Medical Decision Narrative: In summary, this patient is a 63-year-old female presenting to the Emergency Department for evaluation of left arm abrasion, left chest wall pain, and left hip pain after a mechanical ground-level fall. Differential diagnoses considered include but are not limited to head trauma, neck trauma, chest trauma, pelvic trauma, polytrauma. Ruling out the most morbid conditions drove assessment. Given large wound, Tdap booster was administered. Wound care was performed with irrigation, bacitracin, and nonadherent dressing. There was no viable tissue to be sutured. Workup included CT head, CT C-spine, and x-rays of the chest, pelvis, left hip, left femur, and left knee. The patient complains of left chest wall pain and left hip pain, no significant bony tenderness on exam that would suggest significant injury. Patient care was signed out to the oncoming provider, Dr. Morton, pending results and disposition. <Floyd Morton MD - Last Filed: 01/24/24 16:35> Vital Signs: 01/24/24 14:16 01/24/24 14:14 01/24/24 14:45 Temperature 98.1 F Temperature Source Oral Pulse Rate 73 75 Pulse Rate [Left] 78 Respiratory Rate 16 Blood Pressure 102/75 L 170/57 H Blood Pressure [Right Arm] 102/75 L Blood Pressure Mean [Right Arm] 84 Blood Pressure Source [Right Arm] Automatic Cuff Blood Pressure Position [Right Arm] Sitting 02 Sat by Pulse Oximetry 96 95 96 Oxygen Delivery Method Room Air Room Air Orders (Tests/Meds): ED MEDICATIONS Discontinued Medications Generic Name Dose Route Start Last Admin Trade Name Pieter PRN Reason Stop Dose Admin Bacitracin 1 each 01/24/24 15:00 Bacitracin Oint 0.9gm Udp TP 01/24/24 15:01 ONCE ONE Tetanus/Reduced Diphtheria/Acell Pertussis 0.5 ml 01/24/24 15:33 01/24/24 16:02 Tet/Diphth/Pert-Adult 0.5ml Syringe IM 01/24/24 15:34 0.5 ml .ONCE ONE Administration ORDERS Category Date Time Status CT cervical spine wo con Stat Cat Scan 01/24/24 14:[address] head/brain wo con Stat Cat Scan 01/24/24 14:35 Completed XR chest 2V Stat Exams 01/24/24 14:36 Completed XR femur LT 2V Stat Exams 01/24/24 14:36 Completed XR hip LT 2-3V w/pelvis Stat Exams 01/24/24 14:36 Completed XR knee LT 3V Stat Exams 01/24/24 14:36 Completed Medical Decision Narrative: In summary, this patient is a 63-year-old female presenting to the Emergency Department for evaluation of left arm abrasion, left chest wall pain, and left hip pain after a mechanical ground-level fall. Differential diagnoses considered include but are not limited to head trauma, neck trauma, chest trauma, pelvic trauma, polytrauma. Ruling out the most morbid conditions drove assessment. Given large wound, Tdap booster was administered. Wound care was performed with irrigation, bacitracin, and nonadherent dressing. There was no viable tissue to be sutured. Workup included CT head, CT C-spine, and x-rays of the chest, pelvis, left hip, left femur, and left knee. The patient complains of left chest wall pain and left hip pain, no significant bony tenderness on exam that would suggest significant injury. Patient care was signed out to the oncoming provider, Dr. Morton, pending results and disposition. Praveen: I assume primary responsibility for this patient after signout from previous physician. Patient ambulatory in the emergency department. Images returned, patient has no cervical spine abnormality or intracranial abnormality acutely. Chest x-ray, lower extremity films without acute abnormality. Subluxation was called on radiology report, but patient ambulatory without issue, so likely artifact on imaging angle. Because patient at baseline without signs or symptoms of clinical decompensation, deemed appropriate for discharge. Results were relayed to patient who voiced understanding and were agreeable to outpatient management and follow up. At the time of discharge the patient was hemodynamically stable, tolerating PO, and mobilizing appropriately. Critical Care <Maribell Leggett, - Last Filed: 01/24/24 16:05> Critical Care Time Critical Care Time: No
[2024-01-24] MEDS: TET/DIPHTH/PERT-ADULT 0.5ML SYRINGE 0.5 ML IM (16:02)
[2024-01-24] MEDS: BACITRACIN ZINC OINT 30GM TUBE TP (16:34)
[2024-01-24 16:37] VITALS: BP 107/57; PULSE 76; RESP 22; TEMP 36.7; O2SAT 94
== END 2024-01-24 16:38 | disposition home or self-care (01) ==
PROVIDERS: Emergency Provider Emergency Medicine; PCP Family Medicine
DX: R07.81 Pleurodynia (principal); M25.552 Pain in left hip; S51.812A Laceration without foreign body of left forearm, initial encounter; J44.9 Chronic obstructive pulmonary disease, unspecified; I10 Essential (primary) hypertension; E78.5 Hyperlipidemia, unspecified; K21.9 Gastro-esophageal reflux disease without esophagitis; G47.33 Obstructive sleep apnea (adult) (pediatric); I51.81 Takotsubo syndrome; Z86.73 Personal history of transient ischemic attack (TIA), and cerebral infarction without residual deficits; Z87.891 Personal history of nicotine dependence; W01.0XXA Fall on same level from slipping, tripping and stumbling without subsequent striking against object, initial encounter
CPT/HCPCS: 70450; 71046; 72125; 73502; 73552; 73562; 90471; 90715; 99285

== ENCOUNTER 2024-06-15 13:45 | Outpatient (CLI) | payer MEDICARE, OTHER, SELFPAY ==
[2024-06-15 14:34] LABS: Basophils # 0.1 K/mm3 (0-0.2); Basophils % 0.9 % (0.1-2.0); Eosinophils # 0.3 K/mm3 (0.0-0.4); Eosinophils % 2.8 % (0.1-12.0); Hematocrit 33.8 % (37.0-47.0); Lymphocytes # 1.7 K/mm3 (0.7-4.5); Lymphocytes % 18.3 % (10-50); Mean Corpuscular HGB Conc 32.6 g/dL (31.8-35.4); Mean Corpuscular Hemoglobin 31.1 pg (27.0-31.2); Mean Corpuscular Volume 95.3 fl (81-99); Mean Platelet Volume 9.3 fl (7.4-10.4); Monocytes # 0.5 K/mm3 (0.1-1.0); Monocytes % 4.8 % (1.7-9.3); Neutrophils # 6.8 K/mm3 (1.8-7.8); Neutrophils % 73.2 % (37.0-80.0); Platelet Count 319 K/mm3 (142-424); Red Blood Count 3.54 M/mm3 (4.20-5.40); Red Cell Distribution Width 18.4 % (11.5-17.5); White Blood Count 9.3 K/mm3 (4.8-10.8)
[2024-06-15 14:46] LABS: Chloride 103 mmol/L (98-107); Potassium 4.7 mmoL/L (3.5-5.1); Sodium 138 mmol/L (136-145)
[2024-06-15 14:48] LABS: Alanine Aminotransferase 27 U/L (12-78); Alkaline Phosphatase 135 U/L (38-126); Anion Gap 9.7 mEq/L (5-15); Aspartate Amino Transferase 41 U/L (14-36); Bilirubin,Indirect 0.3 mg/dL (0.0-0.9); Bilirubin,Total 0.3 mg/dl (0.2-1.3); Bilirubin,Unconjugated 0.4 mg/dL (0.0-1.1); Blood Urea Nitrogen 23 mg/dl (7-17); Carbon Dioxide 30 mmol/L (22.0-30.0); Estimated Glomerular Filt Rate 63 ml/min (>60); GFR (African American) 76 ML/MIN (>60)
[2024-06-15 14:49] LABS: Albumin Level 3.7 g/dl (3.5-5.0); Calcium 8.5 mg/dl (8.4-10.2); Chol/HDL Ratio 2.1 (1-3.5); Cholesterol 140 mg/dl (140-200); Glucose 74 mg/dl (74-100); HDL Cholesterol 68 mg/dl (40-60); Magnesium 1.8 mg/dl (1.6-2.3); Total Protein,Serum 6.4 g/dl (6.3-8.2); Triglycerides 96 mg/dl (30-150); VLDL Cholesterol 19 mg/dL (0-40)
[2024-06-15 14:59] LABS: NT Pro Brain Natriuretic Pep. 176 pg/mL (0-125)
[2024-06-15 15:00] LABS: Direct LDL Cholesterol 46.83 mg/dL (100-129)
[2024-06-15 15:06] LABS: Free T4 (Free Thyroxine) 0.72 ng/dl (0.78-2.19)
[2024-06-15 15:20] LABS: Thyroid Stimulating Hormone 4.17 uIU/mL (0.465-4.68)
== END 2024-06-15 23:59 | disposition home or self-care (01) ==
LOC: LAB 13:46
PROVIDERS: PCP Family Medicine; Visit Provider Physician Assistant
DX: R06.00 Dyspnea, unspecified (principal); I25.10 Atherosclerotic heart disease of native coronary artery without angina pectoris; R07.89 Other chest pain; R60.0 Localized edema; I51.89 Other ill-defined heart diseases; I10 Essential (primary) hypertension; E78.2 Mixed hyperlipidemia
CPT/HCPCS: 80048; 80061; 80076; 83735; 83880; 84439; 84443; 85025

== ENCOUNTER 2024-07-18 11:12 | Emergency (ER) | payer MEDICARE, OTHER, SELFPAY ==
[2024-07-18 11:14] VITALS: BP 94/50; PULSE 75; RESP 18; TEMP 37.2; O2SAT 96; BMI 42.7
[2024-07-18 11:20] VITALS: BP 94/50; PULSE 74; O2SAT 98
[2024-07-18 11:31] VITALS: BP 88/55; PULSE 73; O2SAT 95
--- NOTE | 2024-07-18 11:50 | PC.NURSE ---
pt TO RESTROOM VIA WHEELCHAIR And x1 assist
--- NOTE | 2024-07-18 12:08 | CT_ITS ---
PROCEDURE INFORMATION: Exam: CT Pelvis Without Contrast, Skeleton Exam date and time: 07/18/2024 12:19 PM Age: 64 years old Clinical indication: Hip pain; Left hip; Additional info: Fall, hip/thigh/knee pain w diff walking TECHNIQUE: Imaging protocol: Computed tomography of the pelvis without contrast. Exam focused on the skeleton. Radiation optimization: All CT scans at this facility use at least one of these dose optimization techniques: automated exposure control; mA and/or kV adjustment per patient size (includes targeted exams where dose is matched to clinical indication); or iterative reconstruction. COMPARISON: CT ABDOMEN PELVIS W CON 12/17/2023 11:17 PM FINDINGS: Intestine: Colonic diverticulosis but no evidence of diverticulitis. Urinary bladder: The urinary bladder is normal in appearance. Bones/joints: The pelvic bones and hips are intact. No evidence of a hip fracture. There are [id number] chronic osteoarthritic changes at each hip. The pubic rami are intact. The sacrum is intact. Mild chronic degenerative disc disease at L4-L5. Soft tissues: Unremarkable. IMPRESSION: 1. [id number] chronic osteoarthritic changes at each hip but no evidence of a fracture. 2. Mild chronic degenerative disc disease at L4-L5.
--- NOTE | 2024-07-18 12:08 | XR_ITS ---
PROCEDURE INFORMATION: Exam: XR Left Femur Exam date and time: 07/18/2024 12:17 PM Age: 64 years old Clinical indication: Pain; Hip; Left; Additional info: Fall, hip/thigh/knee pain w diff walking TECHNIQUE: Imaging protocol: Radiologic exam of the left femur. Views: 2 views. COMPARISON: CR XR FEMUR LT 2V 01/24/2024 2:50 PM FINDINGS: Bones/joints: The left femur is intact. There is moderate to severe tricompartmental osteoarthritis of the left knee. Trace left knee effusion. No evidence of a left knee fracture. Soft tissues: Unremarkable. IMPRESSION: 1. No evidence of a left femur fracture. 2. Tricompartmental osteoarthritis of the left knee.
--- NOTE | 2024-07-18 12:08 | XR_ITS ---
PROCEDURE INFORMATION: Exam: XR Left Knee Exam date and time: 07/18/2024 12:19 PM Age: 64 years old Clinical indication: Pain; Knee; Left; Additional info: Fall, hip/thigh/knee pain w diff walking TECHNIQUE: Imaging protocol: Radiologic exam of the left knee. Views: 3 views. COMPARISON: CR XR KNEE LT 3V 01/24/2024 2:52 PM FINDINGS: Bones/joints: There is normal anatomic alignment of the left knee. No evidence of a left knee fracture. There are moderate to severe tricompartmental osteoarthritic changes of the left knee, most pronounced of the patellofemoral compartment. There is trace left knee effusion. Soft tissues: Normal. IMPRESSION: Moderate to severe tricompartmental osteoarthritis of the left knee with trace effusion.
--- NOTE | 2024-07-18 12:14 | HMH.EDGENADL ---
Discharge Plan Disposition Patient Disposition: Home, Self-Care Prescriptions Prescriptions: No Action aspirin [Adult Low Dose Aspirin] 81 mg tablet,delayed release (DR/EC) 81 mg PO DAILY cholecalciferol (vitamin D3) 50 mcg (2,000 unit) capsule 2,000 unit PO DAILY estradiol 0.01 % (0.1 mg/gram) cream vaginal furosemide 80 mg tablet 80 mg PO DAILY atorvastatin 40 mg tablet 40 mg PO HS lorazepam 0.5 mg tablet 0.5 mg PO DAILY PRN (Reason: Anxiety) duloxetine 60 mg capsule,delayed release(DR/EC) 60 mg PO DAILY albuterol sulfate [Ventolin HFA] 90 mcg/actuation HFA aerosol inhaler 2 inh inhalation Q6H PRN (Reason: shortness of breath or wheezing) 90 Days Qty: 18 3RF Trelegy Ellipta 100-62.5-25 mcg blister with device 1 inh inhalation DAILY 90 Days Qty: 90 3RF ipratropium-albuterol 0.5 mg-3 mg(2.5 mg base)/3 mL solution for nebulization 3 ml inhalation QID PRN (Reason: shortness of breath or wheezing) 90 Days Qty: 270 3RF spironolactone 25 mg tablet See Rx Instructions .ROUTE .COMPLEX Qty: 90 3RF Dose Instruction: TAKE 1 TABLET BY MOUTH TWICE A DAY Rx Instructions: TAKE 1 TABLET BY MOUTH TWICE A DAY Entresto 24-26 mg tablet See Rx Instructions .ROUTE .COMPLEX Qty: 90 3RF Dose Instruction: TAKE 1 TABLET BY MOUTH TWICE A DAY Rx Instructions: TAKE 1 TABLET BY MOUTH TWICE A DAY topiramate 100 mg tablet 100 mg PO BID Qty: 60 2RF carvedilol 3.125 mg tablet See Rx Instructions .ROUTE .COMPLEX Qty: 180 3RF Dose Instruction: TAKE 1 TABLET BY MOUTH TWICE A DAY Rx Instructions: TAKE 1 TABLET BY MOUTH TWICE A DAY famotidine 20 mg tablet See Rx Instructions .ROUTE .COMPLEX Qty: 90 3RF Dose Instruction: TAKE 1 TABLET BY MOUTH ONCE DAILY FOR ACID REFLUX Rx Instructions: TAKE 1 TABLET BY MOUTH ONCE DAILY FOR ACID REFLUX tramadol 50 mg tablet 50 mg PO TID PRN (Reason: Pain) gabapentin 100 mg capsule 100 mg PO TID Referrals Follow up/Referrals: Mayito Persaud DO [Staff Physician] - See instructions Manas Jenkins MD [Primary Care Provider] - See instructions Activity Restrictions/Add. Instructions Additional Instructions/Restrictions: As discussed there is no evidence of any acute fracture or dislocation. You do have severe arthritis in your hip and in your knee which we recommend you follow-up with a primary care doctor or an orthopedic surgeon to discuss further downstream treatment options. Clinical Impressions Clinical Impression: Fall, Strain of left hip and thigh, Strain of left knee, Arthritis of knee, left, Arthritis of left hip Print Language Print Language: Singaporean Discharge ED Provider: Jaz Meeks General Adult HPI General Chief complaint: Fall Stated complaint: Ao 07/16/24 fell, inj left hip and knee Time Seen by Provider: 07/18/24 12:03 Mode of Arrival: Wheelchair Source of Information: Patient Limitations: No Limitations Description of Symptoms (Recalled from ER Triage Doc. by RN): Patient states that she tripped and fell going into her kitchen on Friday. Complaint of left hip to knee pain. Denies LOC. No blood thinners. History of Present Illness HPI narrative: Patient is a 64-year-old female presenting today with left hip thigh and knee pain after a fall that happened on Friday. She had no immediate pain but had delayed pain and was 24 hours later that progressively worsened and is now severe she states in the left hip thigh and knee. She chronically does have pain and is on tramadol without any improvement in her symptoms. States she is able to bear weight but just with difficulty. No injuries elsewhere. She is not on any anticoagulants or antiplatelet agents other than aspirin. Related Data Home Medications ?Medication ?Instructions ?Recorded ?Confirmed aspirin 81 mg tablet,delayed 81 mg PO DAILY 01/07/18 06/15/24 release (Adult Low Dose As
--- NOTE | 2024-07-18 12:18 | PC.NURSE ---
pt TO RAD
--- NOTE | 2024-07-18 12:37 | PC.NURSE ---
pt BACK FROM RAD
[2024-07-18 14:30] VITALS: BP 102/68; PULSE 73; RESP 18; TEMP 37.2; O2SAT 95
== END 2024-07-18 14:31 | disposition home or self-care (01) ==
PROVIDERS: Emergency Provider Student in an Organized Health Care Education/Training Program; PCP Family Medicine
DX: S76.012A Strain of muscle, fascia and tendon of left hip, initial encounter (principal); M16.12 Unilateral primary osteoarthritis, left hip; S86.912A Strain of unspecified muscle(s) and tendon(s) at lower leg level, left leg, initial encounter; M17.12 Unilateral primary osteoarthritis, left knee; J44.9 Chronic obstructive pulmonary disease, unspecified; G47.33 Obstructive sleep apnea (adult) (pediatric); E78.5 Hyperlipidemia, unspecified; K21.9 Gastro-esophageal reflux disease without esophagitis; I10 Essential (primary) hypertension; I51.81 Takotsubo syndrome; Z86.73 Personal history of transient ischemic attack (TIA), and cerebral infarction without residual deficits; W01.0XXA Fall on same level from slipping, tripping and stumbling without subsequent striking against object, initial encounter; Y92.000 Kitchen of unspecified non-institutional (private) residence as the place of occurrence of the external cause
CPT/HCPCS: 72192; 73552; 73562; 96372; 99284; J1885

== ENCOUNTER 2024-10-18 10:34 | Emergency (ER) | payer MEDICARE, OTHER, SELFPAY ==
[2024-10-18 10:36] VITALS: BP 113/74; PULSE 78; RESP 18; TEMP 36.6; O2SAT 94; BMI 46.5
--- NOTE | 2024-10-18 10:48 | PC.NURSE ---
pt states she doesnt want to get into the bed wants to stay in the wheelchair.
[2024-10-18 10:58] LABS: Microscopic, Urine URINE MICROSCOPIC (MICROSCOPIC)
[2024-10-18 11:01] LABS: Basophils # 0.1 K/mm3 (0-0.2); Basophils % 0.8 % (0.1-2.0); Eosinophils # 0.2 K/mm3 (0.0-0.4); Eosinophils % 1.3 % (0.1-12.0); Hematocrit 40.2 % (37.0-47.0); Hemoglobin 12.8 g/dL (12.2-16.2); Lymphocytes # 2.2 K/mm3 (0.7-4.5); Lymphocytes % 18.5 % (10-50); Mean Corpuscular HGB Conc 31.9 g/dL (31.8-35.4); Mean Corpuscular Hemoglobin 30.7 pg (27.0-31.2); Mean Corpuscular Volume 96.2 fl (81-99); Mean Platelet Volume 8.1 fl (7.4-10.4); Monocytes # 0.6 K/mm3 (0.1-1.0); Monocytes % 5.4 % (1.7-9.3); Neutrophils # 8.8 K/mm3 (1.8-7.8); Platelet Count 350 K/mm3 (142-424); Red Blood Count 4.18 M/mm3 (4.20-5.40); Red Cell Distribution Width 18.3 % (11.5-17.5); White Blood Count 11.9 K/mm3 (4.8-10.8)
[2024-10-18 11:02] LABS: Albumin Level 4.5 g/dl (3.5-5.0); Chloride 101 mmol/L (98-107); Potassium 3.5 mmoL/L (3.5-5.1); Sodium 140 mmol/L (136-145)
[2024-10-18 11:03] LABS: Appearance,Urine CLEAR (Clear); Bilirubin,Urine Negative (Negative); Blood, Urine Negative (Negative); Color,Urine YELLOW (Yellow); Glucose,Urine (UA) Negative (Negative); Ketones,Urine Negative (Negative); Leukocyte Esterase,Urine 1+ (Negative); Nitrate,Urine Negative (Negative); PH,Urine 6.5 (5.0-8.5); Protein,Urine Negative (Negative); Urobilinogen,Urine 0.2 EU/dl (0.2)
[2024-10-18 11:04] LABS: Blood Urea Nitrogen 14 mg/dl (7-17); Creatinine Clearance Estimated 50 mL/min (50-200); Estimated Glomerular Filt Rate 63 ml/min (>60); GFR (African American) 76 ML/MIN (>60)
[2024-10-18 11:05] LABS: Alanine Aminotransferase 21 U/L (12-78); Albumin/Globulin Ratio 1.4 (1.1-1.8); Alkaline Phosphatase 129 U/L (38-126); Anion Gap 15.5 mEq/L (5-15); Aspartate Amino Transferase 27 U/L (14-36); Bilirubin,Total 0.6 mg/dl (0.2-1.3); Calcium 8.8 mg/dl (8.4-10.2); Carbon Dioxide 27 mmol/L (22.0-30.0); Globulin 3.3 g/dL (1.3-3.2); Glucose 121 mg/dl (74-100); Total Protein,Serum 7.8 g/dl (6.3-8.2)
[2024-10-18 11:10] VITALS: BP 110/61; PULSE 78; O2SAT 92
--- NOTE | 2024-10-18 11:14 | CT_ITS ---
PROCEDURE INFORMATION: Exam: CT Abdomen And Pelvis Without Contrast Exam date and time: 10/18/2024 11:39 AM Age: 64 years old Clinical indication: Abdominal pain and other: Lower back; Flank; Other: Bilateral; Additional info: Bilateral flank pain TECHNIQUE: Imaging protocol: Computed tomography of the abdomen and pelvis without contrast. Radiation optimization: All CT scans at this facility use at least one of these dose optimization techniques: automated exposure control; mA and/or kV adjustment per patient size (includes targeted exams where dose is matched to clinical indication); or iterative reconstruction. COMPARISON: CT BONY PELVIS 07/18/2024 12:19 PM FINDINGS: Liver: Calcified hepatic granulomas. Gallbladder and biliary ducts: Cholecystectomy. Pancreas: Normal. No ductal dilation. Spleen: Calcified splenic granulomas. Adrenal glands: Normal. No mass. Kidneys and ureters: Normal. No hydronephrosis. Stomach and bowel: Duodenal diverticula. No bowel obstruction. Colonic diverticulosis without evidence of diverticulitis. Appendix: No evidence of appendicitis. Intraperitoneal space: Unremarkable. No free air. No significant fluid collection. Vasculature: Unremarkable. No abdominal aortic aneurysm. Lymph nodes: Unremarkable. No enlarged lymph nodes. Urinary bladder: Unremarkable as visualized. Reproductive: Hysterectomy. Bones/joints: Unremarkable. No acute fracture. Soft tissues: Unremarkable. IMPRESSION: No acute findings.
--- NOTE | 2024-10-18 11:16 | ED_ITS ---
Discharge Plan Disposition Patient Disposition: Home, Self-Care Prescriptions Prescriptions: New nitrofurantoin monohyd/m-cryst 100 mg capsule 100 mg PO BID 5 Days Qty: 10 0RF Rx Instructions: must administer with a meal/food No Action aspirin [Adult Low Dose Aspirin] 81 mg tablet,delayed release (DR/EC) 81 mg PO DAILY cholecalciferol (vitamin D3) 50 mcg (2,000 unit) capsule 2,000 unit PO DAILY furosemide 80 mg tablet 80 mg PO DAILY atorvastatin 40 mg tablet 40 mg PO HS lorazepam 0.5 mg tablet 0.5 mg PO DAILY PRN (Reason: Anxiety) duloxetine 60 mg capsule,delayed release(DR/EC) 60 mg PO DAILY albuterol sulfate [Ventolin HFA] 90 mcg/actuation HFA aerosol inhaler 2 inh inhalation Q6H PRN (Reason: shortness of breath or wheezing) 90 Days Qty: 18 3RF Trelegy Ellipta 100-62.5-25 mcg blister with device 1 inh inhalation DAILY 90 Days Qty: 90 3RF topiramate 100 mg tablet 100 mg PO BID Qty: 75 5RF Rx Instructions: Take 1 tablet in the morning and 1.5 tablets at night spironolactone 25 mg tablet See Rx Instructions .ROUTE .COMPLEX Qty: 90 3RF Dose Instruction: TAKE 1 TABLET BY MOUTH TWICE A DAY Rx Instructions: TAKE 1 TABLET BY MOUTH TWICE A DAY carvedilol 3.125 mg tablet See Rx Instructions .ROUTE .COMPLEX Qty: 180 3RF Dose Instruction: TAKE 1 TABLET BY MOUTH TWICE A DAY Rx Instructions: TAKE 1 TABLET BY MOUTH TWICE A DAY famotidine 20 mg tablet See Rx Instructions .ROUTE .COMPLEX Qty: 90 3RF Dose Instruction: TAKE 1 TABLET BY MOUTH ONCE DAILY FOR ACID REFLUX Rx Instructions: TAKE 1 TABLET BY MOUTH ONCE DAILY FOR ACID REFLUX quetiapine [Seroquel] 50 mg tablet 50 mg PO QHS Qty: 30 1RF Entresto 24-26 mg tablet See Rx Instructions .ROUTE .COMPLEX Qty: 90 1RF Dose Instruction: TAKE 1 TABLET BY MOUTH TWICE A DAY Rx Instructions: TAKE 1 TABLET BY MOUTH TWICE A DAY mirtazapine [Remeron] 15 mg tablet 15 mg PO QHS Qty: 30 0RF tramadol 50 mg tablet 50 mg PO TID PRN (Reason: Pain) gabapentin 100 mg capsule 100 mg PO TID Referrals Follow up/Referrals: Manas Jenkins MD [Primary Care Provider] - See instructions Activity Restrictions/Add. Instructions Additional Instructions/Restrictions: No evidence of an intra-abdominal emergent medical condition your symptoms today are consistent with cystitis or an uncomplicated urinary tract infection. Please take your antibiotics to completion return with any high fevers or worsening concerns. Clinical Impressions Clinical Impression: Lower back pain, Acute UTI Instructions Patient Instructions: DI for Acute Abdominal Pain Print Language Print Language: [place] Discharge ED Provider: Jaz Meeks General Adult HPI General Chief complaint: Abdominal Pain Stated complaint: abd/lower back pain Time Seen by Provider: 10/18/24 11:11 Mode of Arrival: Wheelchair Source of Information: Patient Limitations: No Limitations Description of Symptoms (Recalled from ER Triage Doc. by RN): pt presents to ED c/o low back and abdominal pain that started yesterday evening. pt denies any vomiting, diarrhea or burning with urination. denies any known injury. History of Present Illness HPI narrative: Patient is a 64-year-old female presenting today with lower abdominal and back pain this been going on the last several days. States she feels like this may be a urinary tract infection which she has had in the past. Denies any history of hematuria or dysuria but has had some urinary frequency and urgency. Denies any fevers or chills. Denies any bowel or bladder incontinence urinary retention saddle anesthesia or lower extremity paralysis for history of cancer. Related Data Home Medications ?Medication ?Instructions ?Recorded ?Confirmed aspirin 81 mg tablet,delayed 81 mg PO DAILY 01/07/18 09/08/24 release (Adult Low Dose Aspirin) atorvastatin 40 mg tablet 40 mg PO HS 07/22/22 09/08/24 cholecalciferol (vitamin D3) 50 2,000 unit PO DAILY 03/06/23 09/08/24 mcg (2,000 unit) capsule duloxetine 60 mg capsule,delayed 60 mg PO DAILY 08/11/23 09/08/24 release lorazepam 0.5 mg tablet 0.5 mg PO DAILY PRN Anxiety 08/11/23 09/08/24 gabapentin 100 mg capsule 100 mg PO TID 12/18/23 09/08/24 tramadol 50 mg tablet 50 mg PO TID PRN Pain 12/18/23 09/08/24 furosemide 80 mg tablet 80 mg PO DAILY 06/15/24 09/08/24 Previous Rx's ?Medication ?Instructions ?Recorded albuterol sulfate 90 mcg/actuation 2 inh inhalation Q6H PRN shortness 12/25/23 aerosol inhaler (Ventolin HFA) of breath or wheezing 90 days #18 grams fluticasone fur. 100 mcg-umeclid 1 inh inhalation DAILY 90 days #90 12/25/23 62.5 mcg-vilant 25 mcg ea inhalat.powder (Trelegy Ellipta) spironolactone 25 mg tablet See Rx Instructions .Route 05/25/24 .COMPLEX #90 tabs carvedilol 3.125 mg tablet See Rx Instructions .Route 06/24/24 .COMPLEX #180 tabs famotidine 20 mg tablet See Rx Instructions .Route 06/28/24 .COMPLEX #90 tabs quetiapine 50 mg tablet (Seroquel) 50 mg PO QHS #30 tabs 09/06/24 topiramate 100 mg tablet 100 mg PO BID #75 tabs 09/08/24 sacubitril 24 mg-valsartan 26 mg See Rx Instructions .Route 09/23/24 tablet (Entresto) .COMPLEX #90 tabs mirtazapine 15 mg tablet (Remeron) 15 mg PO QHS #30 tabs 09/27/24 nitrofurantoin 100 mg PO BID 5 days #10 caps 10/18/24 monohydrate/macrocrystals 100 mg capsule Allergies Allergy/AdvReac Type Severity Reaction Status Date / Time sumatriptan Allergy Severe Difficulty Verified 09/08/24 08:03 Breathing fexofenadine (FEXOFENADINE) Allergy Intermediate SICK Verified 09/08/24 08:03 amoxicillin (From AUGMENTIN) Allergy Unknown SOA Verified 09/08/24 08:03 clavulanic acid (From Allergy Unknown SOA Verified 09/08/24 08:03 AUGMENTIN) naproxen (NAPROXEN) Allergy Unknown SWELLING Verified 09/08/24 08:03 acetaminophen (From Tylenol) AdvReac Other Verified 09/08/24 08:03 [facility] Disclaimer: The information contained in this section may have been updated after the patient was seen, as this information can be updated by other users. Medical History Insomnia Oral dyskinesia Most likely secondary to prochlorperazine always discontinued by PCP COPD mixed type Lung nodule Dyspnea on exertion Encounter for screening for malignant neoplasm of lung History of asthma Stopped smoking with greater than 30 pack year history Edema of both lower extremities Takotsubo cardiomyopathy Mediastinal lymphadenopathy Hilar lymphadenopathy Asthma exacerbation APARNA (obstructive sleep apnea) Noncompliant with CPAP treatment. Brain TIA Asthma Hyperglycemia A1c hemoglobin pending, follow-up with PCP for results. Tremor Currently on topiramate to 100 mg twice daily. 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 She also reported a history of Indications, possible side effects were reviewed once again with the patient and her including but not limited to nephrolithiasis, paresthesias, word finding difficulty, neuro glaucoma). APARNA (obstructive sleep apnea) Osteoarthritis She was wheelchair-bound at last appointment and currently ambulatory with a walker Hypertensive disorder Hyperlipidemia Gastroesophageal reflux disease Surgical History H/O: History of arthroplasty of left shoulder H/O: hysterectomy History of cholecystectomy Family History Other Cancer 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 Smoking Status: Former smoker tobacco type: cigarettes second hand exposure: Yes alcohol intake: never substance use type: denies use current occupational status: disabled household members: spouse housing: other marital status: current occupational exposures/hazards: No caffeine: Yes Other Medical History Have you received the Flu Vaccine for this season: No Have you received the Pneumonia Vaccine: No ROS Obtained: Yes All systems reviewed & no additional complaints except as documented Physical Exam General General appearance: alert and in no apparent distress Respiratory Respiratory exam: Present normal lung sounds bilaterally Cardiovascular Cardiovascular exam: Present regular rate Abdominal Exam Abdominal exam: Present soft; Absent distention or tenderness Back Exam Back exam: Absent CVA tenderness (R) or CVA tenderness (L) Neurological Exam Neurological exam: Present alert and oriented X3 Medical Decision Making Medical Records Screening: Per USPSTF and CDC recommendations, given the prevalence of disease in our region, it is our hospital?s policy to screen for HIV and viral Hepatitis for all patients aged 18 and over and those with ongoing risk factors. [place] Inquiry Pt receiving controlled substance: No Vital Signs: 10/18/24 10:36 10/18/24 11:10 10/18/24 11:30 Temperature 97.8 F Temperature Source Oral Pulse Rate 78 75 Pulse Rate [Right Radial] 78 Respiratory Rate 18 Blood Pressure 110/61 124/78 Blood Pressure [Right Arm] 113/74 Blood Pressure Mean 85 Blood Pressure Mean [Right Arm] 87 Blood Pressure Source [Right Arm] Automatic Cuff Blood Pressure Position [Right Arm] Sitting 02 Sat by Pulse Oximetry 94 L 92 L 92 L Oxygen Delivery Method Room Air Room Air Lab Data Lab results reviewed: Yes I reviewed the patient's lab results. Lab Results 10/18/24 10:07: Urine Color Yellow, Urine Appearance Clear, Urine pH 6.5, Ur Specific [place] 1.010, Urine Protein Negative, Urine Glucose (UA) Negative, Urine Ketones Negative, Urine Blood Negative, Urine Nitrate Negative, Urine Bilirubin Negative, Urine Urobilinogen 0.2, Ur Leukocyte Esterase 1+ A, Urine RBC None, Urine WBC 3-5, Ur Squamous Epith Cells Occasional, Urine Bacteria Trace 10/18/24 10:45: WBC 11.9 H, RBC 4.18 L, Hgb 12.8, Hct 40.2, MCV 96.2, MCH 30.7, MCHC 31.9, RDW 18.3 H, Plt Count 350, MPV 8.1, Neut % (Auto) 74.0, Lymph % (Auto) 18.5, [place] % (Auto) 5.4, Eos % (Auto) 1.3, Baso % (Auto) 0.8, Neut # (Auto) 8.8 H, Lymph # (Auto) 2.2, [place] # (Auto) 0.6, Eos # (Auto) 0.2, Baso # (Auto) 0.1, Sodium 140, Potassium 3.5, Chloride 101, Carbon Dioxide 27, Anion Gap 15.5 H, BUN 14, Creatinine 0.90, Estimated Creat Clear 50, Estimated GFR 63, Est GFR ( Amer) 76, Glucose 121 H, Calcium 8.8, Total Bilirubin 0.6, AST 27, ALT 21, Alkaline Phosphatase 129 H, Total Protein 7.8, Albumin 4.5, Globulin 3.3 H, Albumin/Globulin Ratio 1.4 10/18/24 10:45 10/18/24 10:45 Orders (Tests/Meds): ED MEDICATIONS Generic Name Dose Route Start Last Admin Trade Name Pieter PRN Reason Stop Dose Admin Sodium Chloride 10 ml 10/18/24 10:43 Sodium Chloride 0.9% 10ml Flush Syringe IV 11/17/24 10:42 NEEDED PRN Maintain IV Site ORDERS Category Date Time Status CT abdomen pelvis wo con Stat Cat Scan 10/18/24 11:14 Completed Complete Blood Count Auto Diff Stat Lab 10/18/24 10:45 Completed Comprehensive Metabolic Panel Stat Lab 10/18/24 10:45 Completed HIV (1&2) Antibody Rapid Stat Lab 10/18/24 10:45 Received Hep C Ab with Reflex to RNA Stat Lab 10/18/24 10:45 Received Urinalysis and Microscopic Stat Lab 10/18/24 10:07 Completed Urine Culture Stat Micro 10/18/24 10:07 Received Medical Decision Narrative: 64-year-old with above history and physical. Will get a urinalysis and a noncontrasted CT scan. CT scan is primarily to rule out kidney stones and other intra-abdominal pathology. She is morbidly obese and physical exam is significant limited from that standpoint. There should be enough intra- abdominal fat to see inflammatory processes with a noncontrasted scan as well. She has a documented allergy to Tylenol and ibuprofen and I do not feel that she has a condition to warrant further aggressive opioid pain medication at the moment. Urinalysis and labs and CT scan pending will reassess. Reassessment 12:19 PM patient very benign on serial exam CT scan performed which I personally interpreted which shows no intra-abdominal pathology labs unremarkable aside from urinalysis which does demonstrate 1+ leukocyte esterase with 3-5 whites consistent with uncomplicated UTI/cystitis. Nitrofurantoin has been sent to her pharmacy. No evidence of ascending or complicated UTI. No alternative pathology identified. Patient reassured return precautions emphasized she was discharged in stable improved condition. Critical Care Critical Care Time Critical Care Time: No
[2024-10-18 11:19] LABS: Bacteria,Urine Trace /lpf; Squamous Epithelial Cell,Urine Occasional #/hpf (0-5)
[2024-10-18 11:30] VITALS: BP 124/78; PULSE 75; O2SAT 92
--- NOTE | 2024-10-18 11:35 | PC.NURSE ---
pt going to ct
[2024-10-18 12:24] VITALS: BP 113/78; PULSE 77; RESP 18; TEMP 36.6; O2SAT 98
[2024-10-18 16:15] LABS: HIV (1&2) Antibody Rapid NONREACTIVE (NONREACTIVE)
[2024-10-19 11:19] LABS: HCV Ab Non Reactive (Non Reactive)
== END 2024-10-18 12:40 | disposition home or self-care (01) ==
PROVIDERS: Emergency Provider Student in an Organized Health Care Education/Training Program; PCP Family Medicine
DX: N39.0 Urinary tract infection, site not specified (principal); M54.50 Low back pain, unspecified; R10.30 Lower abdominal pain, unspecified; R35.0 Frequency of micturition; R39.15 Urgency of urination
CPT/HCPCS: 74176; 80053; 81001; 85025; 86803; 87086; 87389; 99284

== ENCOUNTER 2024-10-22 16:54 | Emergency (ER) | payer MEDICARE, OTHER, SELFPAY ==
[2024-10-22 16:55] VITALS: BP 113/59; PULSE 82; RESP 20; TEMP 36.8; O2SAT 96; BMI 46.5
--- NOTE | 2024-10-22 17:07 | ED_ITS ---
<Statement entered by Jaz Meeks MD - 10/22/24 23:22> I was consulted by the DION, and we discussed the complexity of the problems being addressed. I approved the treatment and management plan for this patient's care in the emergency department, thus performing a substantive portion of the medical decision making. Jaz Meeks MD, NICKY, FACEP Discharge Plan Prescriptions Prescriptions: New cefdinir 300 mg capsule 300 mg PO BID 10 Days Qty: 20 0RF No Action aspirin [Adult Low Dose Aspirin] 81 mg tablet,delayed release (DR/EC) 81 mg PO DAILY cholecalciferol (vitamin D3) 50 mcg (2,000 unit) capsule 2,000 unit PO DAILY furosemide 80 mg tablet 80 mg PO DAILY atorvastatin 40 mg tablet 40 mg PO HS lorazepam 0.5 mg tablet 0.5 mg PO DAILY PRN (Reason: Anxiety) duloxetine 60 mg capsule,delayed release(DR/EC) 60 mg PO DAILY albuterol sulfate [Ventolin HFA] 90 mcg/actuation HFA aerosol inhaler 2 inh inhalation Q6H PRN (Reason: shortness of breath or wheezing) 90 Days Qty: 18 3RF Trelegy Ellipta 100-62.5-25 mcg blister with device 1 inh inhalation DAILY 90 Days Qty: 90 3RF topiramate 100 mg tablet 100 mg PO BID Qty: 75 5RF Rx Instructions: Take 1 tablet in the morning and 1.5 tablets at night spironolactone 25 mg tablet See Rx Instructions .ROUTE .COMPLEX Qty: 90 3RF Dose Instruction: TAKE 1 TABLET BY MOUTH TWICE A DAY Rx Instructions: TAKE 1 TABLET BY MOUTH TWICE A DAY carvedilol 3.125 mg tablet See Rx Instructions .ROUTE .COMPLEX Qty: 180 3RF Dose Instruction: TAKE 1 TABLET BY MOUTH TWICE A DAY Rx Instructions: TAKE 1 TABLET BY MOUTH TWICE A DAY famotidine 20 mg tablet See Rx Instructions .ROUTE .COMPLEX Qty: 90 3RF Dose Instruction: TAKE 1 TABLET BY MOUTH ONCE DAILY FOR ACID REFLUX Rx Instructions: TAKE 1 TABLET BY MOUTH ONCE DAILY FOR ACID REFLUX quetiapine [Seroquel] 50 mg tablet 50 mg PO QHS Qty: 30 1RF Entresto 24-26 mg tablet See Rx Instructions .ROUTE .COMPLEX Qty: 90 1RF Dose Instruction: TAKE 1 TABLET BY MOUTH TWICE A DAY Rx Instructions: TAKE 1 TABLET BY MOUTH TWICE A DAY mirtazapine [Remeron] 15 mg tablet 15 mg PO QHS Qty: 30 0RF tramadol 50 mg tablet 50 mg PO TID PRN (Reason: Pain) gabapentin 100 mg capsule 100 mg PO TID nitrofurantoin monohyd/m-cryst 100 mg capsule 100 mg PO BID 5 Days Qty: 10 0RF Rx Instructions: must administer with a meal/food Referrals Follow up/Referrals: Manas Jenkins MD [Primary Care Provider] - See instructions Activity Restrictions/Add. Instructions Additional Instructions/Restrictions: As we discussed I am changing her antibiotic to Omnicef. Please pick it up from the pharmacy and take it till its completely gone. Follow-up with your PCP next week for recheck. Follow-up sooner for any worsening signs or symptoms or return to the ER as needed Clinical Impressions Clinical Impression: Urinary tract infectious disease Qualifiers: Urinary tract infection type: site unspecified Hematuria presence: with hematuria Qualified Code(s): N39.0 - Urinary tract infection, site not specified Print Language Print Language: [place] Discharge ED Provider: Jaz Meeks General Adult HPI General Chief complaint: PAIN Stated complaint: abd pain Time Seen by Provider: 10/22/24 17:07 History of Present Illness HPI narrative: Patient presents for evaluation of right flank pain. Patient states that she has been recently treated for urinary tract infection and has been prescribed Macrobid. However she began having right flank pain radiating to her groin today that has not persisted. She denies fever chills hemoptysis hematochezia melena hematemesis nausea vomiting diarrhea. She does not have a history of kidney stones. Related Data Home Medications ?Medication ?Instructions ?Recorded ?Confirmed aspirin 81 mg tablet,delayed 81 mg PO DAILY 01/07/18 09/08/24 release (Adult Low Dose Aspirin) atorvastatin 40 mg tablet 40 mg PO HS 07/22/22 09/08/24 cholecalciferol (vitamin D3) 50 2,000 unit PO DAILY 03/06/23 09/08/24 mcg (2,000 unit) capsule duloxetine 60 mg capsule,delayed 60 mg PO DAILY 08/11/23 09/08/24 release lorazepam 0.5 mg tablet 0.5 mg PO DAILY PRN Anxiety 08/11/23 09/08/24 gabapentin 100 mg capsule 100 mg PO TID 12/18/23 09/08/24 tramadol 50 mg tablet 50 mg PO TID PRN Pain 12/18/23 09/08/24 furosemide 80 mg tablet 80 mg PO DAILY 06/15/24 09/08/24 Previous Rx's ?Medication ?Instructions ?Recorded albuterol sulfate 90 mcg/actuation 2 inh inhalation Q6H PRN shortness 12/25/23 aerosol inhaler (Ventolin HFA) of breath or wheezing 90 days #18 grams fluticasone fur. 100 mcg-umeclid 1 inh inhalation DAILY 90 days #90 12/25/23 62.5 mcg-vilant 25 mcg ea inhalat.powder (Trelegy Ellipta) spironolactone 25 mg tablet See Rx Instructions .Route 05/25/24 .COMPLEX #90 tabs carvedilol 3.125 mg tablet See Rx Instructions .Route 06/24/24 .COMPLEX #180 tabs famotidine 20 mg tablet See Rx Instructions .Route 06/28/24 .COMPLEX #90 tabs quetiapine 50 mg tablet (Seroquel) 50 mg PO QHS #30 tabs 09/06/24 topiramate 100 mg tablet 100 mg PO BID #75 tabs 09/08/24 sacubitril 24 mg-valsartan 26 mg See Rx Instructions .Route 09/23/24 tablet (Entresto) .COMPLEX #90 tabs mirtazapine 15 mg tablet (Remeron) 15 mg PO QHS #30 tabs 09/27/24 nitrofurantoin 100 mg PO BID 5 days #10 caps 10/18/24 monohydrate/macrocrystals 100 mg capsule cefdinir 300 mg capsule 300 mg PO BID 10 days #20 caps 10/22/24 Allergies Allergy/AdvReac Type Severity Reaction Status Date / Time sumatriptan Allergy Severe Difficulty Verified 09/08/24 08:03 Breathing fexofenadine (FEXOFENADINE) Allergy Intermediate SICK Verified 09/08/24 08:03 amoxicillin (From AUGMENTIN) Allergy Unknown SOA Verified 09/08/24 08:03 clavulanic acid (From Allergy Unknown SOA Verified 09/08/24 08:03 AUGMENTIN) naproxen (NAPROXEN) Allergy Unknown SWELLING Verified 09/08/24 08:03 acetaminophen (From Tylenol) AdvReac Other Verified 09/08/24 08:03 [facility] Disclaimer: The information contained in this section may have been updated after the patient was seen, as this information can be updated by other users. Medical History Insomnia Oral dyskinesia Most likely secondary to prochlorperazine always discontinued by PCP COPD mixed type Lung nodule Dyspnea on exertion Encounter for screening for malignant neoplasm of lung History of asthma Stopped smoking with greater than 30 pack year history Edema of both lower extremities Takotsubo cardiomyopathy Mediastinal lymphadenopathy Hilar lymphadenopathy Asthma exacerbation APARNA (obstructive sleep apnea) Noncompliant with CPAP treatment. Brain TIA Asthma Hyperglycemia A1c hemoglobin pending, follow-up with PCP for results. Tremor Currently on topiramate to 100 mg twice daily. 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 She also reported a history of Indications, possible side effects were reviewed once again with the patient and her including but not limited to nephrolithiasis, paresthesias, word finding difficulty, neuro glaucoma). APARNA (obstructive sleep apnea) Osteoarthritis She was wheelchair-bound at last appointment and currently ambulatory with a walker Hypertensive disorder Hyperlipidemia Gastroesophageal reflux disease Surgical History H/O: History of arthroplasty of left shoulder H/O: hysterectomy History of cholecystectomy Family History Other Cancer 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 (Updated 10/18/24 @ 12:20 by Jaz Meeks MD) Smoking Status: Former smoker tobacco type: cigarettes second hand exposure: Yes alcohol intake: never substance use type: denies use current occupational status: disabled household members: spouse housing: other marital status: current occupational exposures/hazards: No caffeine: Yes Other Medical History Have you received the Flu Vaccine for this season: No Have you received the Pneumonia Vaccine: No ROS Obtained: Yes Systems reviewed as appropriate & no additional complaints except as documented Physical Exam General General appearance: alert and in no apparent distress Respiratory Respiratory exam: Present normal lung sounds bilaterally Cardiovascular Cardiovascular exam: Present regular rate Neurological Exam Neurological exam: Present alert and oriented X3 Medical Decision Making Medical Records Medical records reviewed: Yes I reviewed the patient's medical records. Screening: Per USPSTF and CDC recommendations, given the prevalence of disease in our region, it is our hospital?s policy to screen for HIV and viral Hepatitis for all patients aged 18 and over and those with ongoing risk factors. [place] Inquiry Pt receiving controlled substance: No Vital Signs: 10/22/24 16:55 10/22/24 17:30 10/22/24 19:00 Temperature 98.3 F 98.2 F Temperature Source Oral Pulse Rate 79 74 Pulse Rate [Right] 82 Respiratory Rate 20 18 Blood Pressure 113/59 L 148/79 H Blood Pressure [Left Arm] 113/59 L Blood Pressure Mean [Left Arm] 77 Blood Pressure Source [Left Arm] Automatic Cuff 02 Sat by Pulse Oximetry 96 94 L Oxygen Delivery Method Room Air Room Air Lab Data Lab results reviewed: Yes I reviewed the patient's lab results. Lab Results 10/22/24 17:02: Urine Color Yellow, Urine Appearance Clear, Urine pH 6.0, Ur Specific [place] 1.020, Urine Protein Negative, Urine Glucose (UA) Negative, Urine Ketones Negative, Urine Blood Negative, Urine Nitrate Negative, Urine Bilirubin Negative, Urine Urobilinogen 0.2, Ur Leukocyte Esterase 1+ A, Urine RBC 10-20, Urine WBC 20-50, Ur Squamous Epith Cells 50-100, Urine Bacteria 4+, Urine Mucus 1+ 10/22/24 17:20: WBC 11.2 H, RBC 3.91 L, Hgb 12.2, Hct 37.1, MCV 95.0, MCH 31.3 H , MCHC 32.9, RDW 18.2 H, Plt Count 314, MPV 9.0, Neut % (Auto) 77.6, Lymph % (Auto) 12.8, Burke % (Auto) 6.0, Eos % (Auto) 0.9, Baso % (Auto) 0.9, Neut # (Auto) 8.7 H, Lymph # (Auto) 1.4, Burke # (Auto) 0.7, Eos # (Auto) 0.1, Baso # (Auto) 0.1, Sodium 139, Potassium 3.9, Chloride 103, Carbon Dioxide 28, Anion Gap 11.9, BUN 17, Creatinine 0.90, Estimated Creat Clear 50, Estimated GFR 63, Est GFR ( Amer) 76, Glucose 109 H, Calcium 8.8, Total Bilirubin 0.4, AST 25, ALT 18, Alkaline Phosphatase 113, Total Protein 7.4, Albumin 4.2, Globulin 3.2, Albumin/Globulin Ratio 1.3 10/22/24 17:20 10/22/24 17:20 Orders (Tests/Meds): ED MEDICATIONS Discontinued Medications Generic Name Dose Route Start Last Admin Trade Name Pieter PRN Reason Stop Dose Admin Sodium Chloride 1,000 mls @ 999 mls/hr 10/22/24 17:10 10/22/24 17:36 Sod Chlor 0.9% 1000ml Bag IV 10/22/24 18:10 999 mls/hr .Q1H1M ONE Administration Iopamidol 75 ml 10/22/24 17:49 10/22/24 17:49 Iopamidol-370 (76%);100ml Bottle IV 10/22/24 17:50 75 ml ONCE ONE Administration Ketorolac Tromethamine 15 mg 10/22/24 17:10 10/22/24 17:36 Ketorolac 30mg/Ml Vial IV 10/22/24 17:11 15 mg ONCE ONE Administration Ondansetron HCl 4 mg 10/22/24 17:35 10/22/24 17:36 Ondansetron 4mg/2ml Vial IV 10/22/24 17:36 4 mg ONCE ONE Administration Sodium Chloride 10 ml 10/22/24 17:49 10/22/24 17:49 Sodium Chloride 0.9% 10ml Syr (Rad Only) IV 10/22/24 17:50 10 ml ONCE ONE Administration ORDERS Category Date Time Status CT abdomen pelvis w con Stat Cat Scan 10/22/24 17:11 Completed CBC w/Auto Diff [Complete Blood Count Auto Diff] Stat Lab 10/22/24 17:20 Completed CMP [Comprehensive Metabolic Panel] Stat Lab 10/22/24 17:20 Completed UA [Urinalysis and Microscopic] Stat Lab 10/22/24 17:02 Completed Urine Culture Stat Micro 10/22/24 17:02 Received Medical Decision Narrative: In summary patient is a 64-year-old female who presents to the emergency department for evaluation of right flank pain and dysuria. Patient is hemodynamically stable upon arrival, afebrile. Physical exam is remarkable for CVA tenderness to percussion on the right negative on the left and slight abdominal tenderness in the suprapubic area on palpation but no rebound or guarding or rigidity. Bowel sounds normal active.. Differential diagnosis includes ascending urinary tract infection versus kidney stone etc. Initial workup will be conducted with hematologic labs urinalysis CT scan of the abdomen.. Initial interventions include crystalloid bolus Toradol Tylenol. Initial workup reviewed by me shows a white count of 11.2 with an absolute neutrophil count of 8.7 with the remainder of her hematologic labs being nonactionable. Her urinalysis is negative for blood protein nitrites with positive leukocyte Estrace on dipstick and microscopic exam shows 10-20 red cells 20-50 white cells 4+ bacteria and with 50-100 epithelial cells could indicate contamination but likely reflects worsening UTI. Upon repeat evaluation patient did have moderate improvement after initial intervention. Given this I have changed the patient's antibiotic to Omnicef. Patient to follow-up PCP for recheck next week or return to ER for worsening signs or symptoms as needed. Critical Care Critical Care Time Critical Care Time: No
--- NOTE | 2024-10-22 17:11 | CT_ITS ---
PROCEDURE INFORMATION: Exam: CT Abdomen And Pelvis With Contrast Exam date and time: 10/22/2024 5:49 PM Age: 64 years old Clinical indication: Abdominal pain; Additional info: Right flank pain, dysuria TECHNIQUE: Imaging protocol: Computed tomography of the abdomen and pelvis with contrast. Radiation optimization: All CT scans at this facility use at least one of these dose optimization techniques: automated exposure control; mA and/or kV adjustment per patient size (includes targeted exams where dose is matched to clinical indication); or iterative reconstruction. Contrast material: ISOVUE; Contrast volume: 75 ml; Contrast route: IV; COMPARISON: 1. CT ABDOMEN PELVIS WO CON 10/18/2024 11:[address] BONY PELVIS 07/18/2024 12:[address] ABDOMEN PELVIS W CON 12/17/2023 11:17 PM FINDINGS: Lungs: Scattered areas of bronchial wall thickening which are likely chronic inflammatory. A few areas of subpleural reticulation are noted, nonspecific. Diaphragm: There is elevation of the left hemidiaphragm. Liver: There are calcifications in the liver which most likely reflect calcified granulomas. Gallbladder and biliary ducts: The patient is status post cholecystectomy. Pancreas: There is fatty replacement of the pancreas. Spleen: There are multiple calcifications in the spleen most likely reflects small granulomas. Adrenal glands: The adrenal glands appear normal. Kidneys and ureters: There are no soft tissue renal masses or hydronephrosis. Stomach and bowel: There is large volume stool throughout the colon. There are scattered colonic diverticula. Appendix: No evidence of appendicitis. Intraperitoneal space: Unremarkable. Vasculature: There is atherosclerotic disease of the visualized aorta and its major branch vessels. Lymph nodes: No lymphadenopathy. Urinary bladder: There is mild bladder wall thickening, nonspecific. Reproductive: The patient has undergone prior hysterectomy. Bones/joints: There is diffuse degenerative disease of the visualized osseous structures. Soft tissues: There is a small fat containing umbilical hernia. IMPRESSION: 1. Mild bladder wall thickening could reflect an element of cystitis versus under distension. 2. No urolithiasis or hydronephrosis.
[2024-10-22 17:14] LABS: Microscopic, Urine URINE MICROSCOPIC (MICROSCOPIC)
[2024-10-22 17:17] LABS: Appearance,Urine CLEAR (Clear); Bilirubin,Urine Negative (Negative); Blood, Urine Negative (Negative); Color,Urine YELLOW (Yellow); Glucose,Urine (UA) Negative (Negative); Ketones,Urine Negative (Negative); Leukocyte Esterase,Urine 1+ (Negative); Nitrate,Urine Negative (Negative); Protein,Urine Negative (Negative); Urobilinogen,Urine 0.2 EU/dl (0.2)
[2024-10-22 17:29] LABS: Squamous Epithelial Cell,Urine 50-100 #/hpf (0-5); WBC,Urine 20-50 #/hpf (0-3)
[2024-10-22 17:30] VITALS: BP 113/59; PULSE 79; O2SAT 94
[2024-10-22 17:30] LABS: Bacteria,Urine 4+ /lpf; Mucus,Urine 1+ /lpf
[2024-10-22] MEDS: 0.9 % SODIUM CHLORIDE 1000ML 1,000 ML 999 ML IV (17:36)
[2024-10-22] MEDS: ONDANSETRON 4MG/2ML VIAL 4 MG IV (17:36)
[2024-10-22] MEDS: KETOROLAC 30MG/ML VIAL 15 MG IV (17:36)
[2024-10-22 17:39] LABS: Albumin Level 4.2 g/dl (3.5-5.0); Chloride 103 mmol/L (98-107); Potassium 3.9 mmoL/L (3.5-5.1); Sodium 139 mmol/L (136-145)
[2024-10-22 17:41] LABS: Blood Urea Nitrogen 17 mg/dl (7-17); Creatinine Clearance Estimated 50 mL/min (50-200); Estimated Glomerular Filt Rate 63 ml/min (>60); GFR (African American) 76 ML/MIN (>60)
[2024-10-22 17:42] LABS: Alanine Aminotransferase 18 U/L (12-78); Albumin/Globulin Ratio 1.3 (1.1-1.8); Alkaline Phosphatase 113 U/L (38-126); Anion Gap 11.9 mEq/L (5-15); Aspartate Amino Transferase 25 U/L (14-36); Bilirubin,Total 0.4 mg/dl (0.2-1.3); Calcium 8.8 mg/dl (8.4-10.2); Carbon Dioxide 28 mmol/L (22.0-30.0); Globulin 3.2 g/dL (1.3-3.2); Glucose 109 mg/dl (74-100); Total Protein,Serum 7.4 g/dl (6.3-8.2)
[2024-10-22] MEDS: SODIUM CHLORIDE 0.9% 10ML SYR (RAD ONLY) 10 ML IV (17:49)
[2024-10-22] MEDS: IOPAMIDOL-370 (76%);100ML BOTTLE 75 ML IV (17:49)
[2024-10-22 18:46] LABS: Hematocrit 37.1 % (37.0-47.0); Hemoglobin 12.2 g/dL (12.2-16.2); Red Blood Count 3.91 M/mm3 (4.20-5.40); White Blood Count 11.2 K/mm3 (4.8-10.8)
[2024-10-22 18:47] LABS: Basophils % 0.9 % (0.1-2.0); Eosinophils # 0.1 K/mm3 (0.0-0.4); Eosinophils % 0.9 % (0.1-12.0); Lymphocytes # 1.4 K/mm3 (0.7-4.5); Lymphocytes % 12.8 % (10-50); Mean Corpuscular HGB Conc 32.9 g/dL (31.8-35.4); Mean Corpuscular Hemoglobin 31.3 pg (27.0-31.2); Monocytes # 0.7 K/mm3 (0.1-1.0); Neutrophils # 8.7 K/mm3 (1.8-7.8); Neutrophils % 77.6 % (37.0-80.0); Platelet Count 314 K/mm3 (142-424); Red Cell Distribution Width 18.2 % (11.5-17.5)
[2024-10-22 18:48] LABS: Basophils # 0.1 K/mm3 (0-0.2)
[2024-10-22 19:00] VITALS: BP 148/79; PULSE 74; RESP 18; TEMP 36.8; O2SAT 96
== END 2024-10-22 19:01 | disposition home or self-care (01) ==
PROVIDERS: Physician Assistant; Emergency Provider Student in an Organized Health Care Education/Training Program; PCP Family Medicine
DX: N39.0 Urinary tract infection, site not specified (principal); R10.31 Right lower quadrant pain
CPT/HCPCS: 74177; 80053; 81001; 85025; 87086; 96361; 96374; 96375; 99285; J1885; J2405; J7030; Q9967

== ENCOUNTER 2024-11-22 15:19 | Emergency (ER) | payer MEDICARE, OTHER, SELFPAY ==
[2024-11-22 16:05] VITALS: BP 151/93; PULSE 76; RESP 21; TEMP 37.5; O2SAT 95; BMI 51.3
--- NOTE | 2024-11-22 16:17 | ED_ITS ---
Discharge Plan Disposition Patient Disposition: Home, Self-Care Condition: Good Prescriptions Prescriptions: New methylprednisolone [Medrol (Apollo)] 4 mg tablets,dose pack See Rx Instructions .Route .COMPLEX 6 Days Qty: 21 0RF Rx Instructions: taper pack; azithromycin [Zithromax Z-Apollo] 250 mg tablet See Rx Instructions .ROUTE .COMPLEX 5 Days Qty: 6 0RF Rx Instructions: For 250 mg dose pack: take 500 mg today (day 1), then 250 mg for 4 days (days 2-5) No Action furosemide 40 mg tablet 40 mg PO DAILY atorvastatin 40 mg tablet 40 mg PO HS tramadol 50 mg tablet 50 mg PO DAILY spironolactone 25 mg tablet 25 mg PO DAILY carvedilol 3.125 mg tablet 3.125 mg PO DAILY famotidine 20 mg tablet 20 mg PO DAILY lorazepam 0.5 mg tablet 0.5 mg PO DAILY omeprazole 20 mg capsule,delayed release(DR/EC) 20 mg PO DAILY hydroxyzine HCl 25 mg tablet 25 mg PO DAILY mirtazapine 15 mg tablet 15 mg PO DAILY gabapentin 100 mg capsule 100 mg PO DAILY topiramate 100 mg tablet 100 mg PO DAILY duloxetine 60 mg capsule,delayed release(DR/EC) 60 mg PO DAILY quetiapine 50 mg tablet 50 mg PO DAILY cholecalciferol (vitamin D3) 50 mcg (2,000 unit) capsule 50 mcg PO DAILY sacubitril-valsartan [Entresto] 24-26 mg tablet 1 tab PO DAILY Trelegy Ellipta 100-62.5-25 mcg blister with device 1 inh INHALATION DAILY Referrals Follow up/Referrals: Manas Jenkins MD [Primary Care Provider] - See instructions Activity Restrictions/Add. Instructions Additional Instructions/Restrictions: * Start antibiotic today. Be sure to complete entire prescription even if f eeling better * Monitor temp. Tylenol every 4 hours as needed and / or ibuprofen every 6 hours as needed ( As long as your primary care physician has told you that it ok to take both. For fever/aches/pains ER if no less than 101 despite Tylenol or Motrin * Humidifier/vaporizer or hot steamy shower * Inhaler every 4-6 hours as needed like we discussed. If unsure how to use it, ask pharmacist to demonstrate how. Should help open airways and improve cough, wheezing, and shortness of breath * *Start steroid today. Helps with inflammation therefore, cough and wheezing. Follow directions on the package. Reviewed side effects. Patient reports taking them before. Follow up IMMEDIATELY for new or worsening of symptoms OR no noticeable improvement over the next 48-72 hours. 911 immediately for any life threatening symptoms such as chest pain or difficulty breathing Clinical Impressions Clinical Impression: Bronchitis Instructions Patient Instructions: Atypical Pneumonia, Acute Bronchitis Print Language Print Language: Khmer Discharge ED Provider: Beatrice Gunn [facility] [place] HPI General Stated complaint: cough,weakness,body aches Mode of Arrival: Ambulatory Source of Information: Patient Limitations: No Limitations Time Seen by Provider: 11/22/24 16:17 Description of Symptoms (Recalled from Triage Doc. by RN): PATIENT C/O BODY ACHES, CHILLS, COUGH, AND FEVER X 5 DAYS HEENT Symptoms (Recalled from RN notes): No Resp Symptoms (Recalled from RN notes): Yes Skin Symptoms (Recalled from RN notes): No MS Symptoms (Recalled from RN notes): No Functional Status (Recalled from RN notes): WNL History of Present Illness Provider Complaint: Patient state that she was recently exposed to walking pneumonia and states that she has had it before and feels like it is starting now so she came in to get something before it got bad States that she has been having body aches, cough and chest congestion Related Data Home Medications ?Medication ?Instructions ?Recorded ?Confirmed atorvastatin 40 mg tablet 40 mg PO HS 11/22/24 11/22/24 carvedilol 3.125 mg tablet 3.125 mg PO DAILY 11/22/24 11/22/24 cholecalciferol (vitamin D3) 50 50 mcg PO DAILY 11/22/24 11/22/24 mcg (2,000 unit) capsule duloxetine 60 mg capsule,delayed 60 mg PO DAILY 11/22/24 11/22/24 release famotidine 20 mg tablet 20 mg PO DAILY 11/22/24 11/22/24 fluticasone fur. 100 mcg-umeclid 1 inh inhalation DAILY 11/22/24 11/22/24 62.5 mcg-vilant 25 mcg inhalat.powder (Trelegy Ellipta) furosemide 40 mg tablet 40 mg PO DAILY 11/22/24 11/22/24 gabapentin 100 mg capsule 100 mg PO DAILY 11/22/24 11/22/24 hydroxyzine HCl 25 mg tablet 25 mg PO DAILY 11/22/24 11/22/24 lorazepam 0.5 mg tablet 0.5 mg PO DAILY 11/22/24 11/22/24 mirtazapine 15 mg tablet 15 mg PO DAILY 11/22/24 11/22/24 omeprazole 20 mg capsule,delayed 20 mg PO DAILY 11/22/24 11/22/24 release quetiapine 50 mg tablet 50 mg PO DAILY 11/22/24 11/22/24 sacubitril 24 mg-valsartan 26 mg 1 tab PO DAILY 11/22/24 11/22/24 tablet (Entresto) spironolactone 25 mg tablet 25 mg PO DAILY 11/22/24 11/22/24 topiramate 100 mg tablet 100 mg PO DAILY 11/22/24 11/22/24 tramadol 50 mg tablet 50 mg PO DAILY 11/22/24 11/22/24 Previous Rx's ?Medication ?Instructions ?Recorded azithromycin 250 mg tablet See Rx Instructions PO .COMPLEX 5 11/22/24 (Zithromax Z-Apollo) days #6 tabs methylprednisolone 4 mg tablets in See Rx Instructions .Route 11/22/24 a dose pack (Medrol (Apollo)) .COMPLEX 6 days #21 tabs Allergies Allergy/AdvReac Type Severity Reaction Status Date / Time sumatriptan Allergy Severe Difficulty Verified 10/26/24 13:01 Breathing fexofenadine (FEXOFENADINE) Allergy Intermediate SICK Verified 10/26/24 13:01 amoxicillin (From AUGMENTIN) Allergy Unknown SOA Verified 10/26/24 13:01 clavulanic acid (From Allergy Unknown SOA Verified 10/26/24 13:01 AUGMENTIN) naproxen (NAPROXEN) Allergy Unknown SWELLING Verified 10/26/24 13:01 acetaminophen (From Tylenol) AdvReac Other Verified 10/26/24 13:01 Worker's Comp Is this a Worker's Comp case?: No [facility] Disclaimer: The information contained in this section may have been updated after the patient was seen, as this information can be updated by other users. Medical History Insomnia Oral dyskinesia Most likely secondary to prochlorperazine already discontinued by PCP COPD mixed type Lung nodule Dyspnea on exertion Encounter for screening for malignant neoplasm of lung History of asthma Stopped smoking with greater than 30 pack year history Edema of both lower extremities Takotsubo cardiomyopathy Mediastinal lymphadenopathy Hilar lymphadenopathy Asthma exacerbation APARNA (obstructive sleep apnea) Noncompliant with CPAP treatment. Brain TIA Asthma Hyperglycemia A1c hemoglobin pending, follow-up with PCP for results. Tremor 09/08/2024: Initial good response to topiramate but worsening of tremor since last visit. Indications, possible side effects were reviewed once again with the patient and her including but not limited to nephrolithiasis, paresthesias, word finding difficulty, neuro glaucoma). APARNA (obstructive sleep apnea) Osteoarthritis She was wheelchair-bound at last appointment and currently ambulatory with a walker Hypertensive disorder Hyperlipidemia Gastroesophageal reflux disease Surgical History H/O: History of arthroplasty of left shoulder H/O: hysterectomy History of cholecystectomy Family History Other Cancer 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 Smoking Status: Former smoker tobacco type: cigarettes second hand exposure: Yes alcohol intake: never substance use type: denies use current occupational status: disabled Travel in the last 8 weeks: None household members: spouse housing: other marital status: current occupational exposures/hazards: No caffeine: Yes Have you lived/traveled outside US in past 30 days?: No Contact w/someone who lives/traveled outside US past 30 days?: No Exposure to someone with infectious disease in past 14 days?: Yes Do you have a fever (greater than 100.4 F or 38 C)?: No Have you tested positive for COVID-19: No Exposed to someone with COVID-19 in past 14 days?: No Do you have a sore throat?: No Do you have a cough?: Yes Do you have any weakness?: Yes Do you have any diarrhea?: No Are you experiencing any unusual bleeding?: No Do you have any muscle aches/pain?: Yes Do you have any abdominal pain?: No Are you experiencing loss of taste or smell?: No ROS Obtained: Yes All systems reviewed & no additional complaints except as documented and Yes Systems reviewed as appropriate & no additional complaints except as documented Constitutional Constitutional: Reports system reviewed and no additional complaints, except as documented, Reports as per HPI, Reports body ache and Reports chills ENT Ears, Nose, Mouth, and Throat: Reports system reviewed and no additional complaints, except as documented, Reports as per HPI, Reports nasal congestion and Reports sinus pressure Cardiovascular Cardiovascular: Reports system reviewed and no additional complaints, except as documented and Reports as per HPI Respiratory Respiratory: Reports system reviewed and no additional complaints, except as documented, Reports as per HPI, Denies shortness of breath, Reports chest congestion and Reports cough Gastrointestinal Gastrointestingal: Reports system reviewed and no additional complaints, except as documented and as per HPI Physical Exam General General appearance: alert and in no apparent distress ENT ENT exam: Present mucous membranes moist Expanded ENT Exam Nose exam: Present sinus tenderness Throat exam: Present other (PND noted) Respiratory Respiratory exam: Present normal lung sounds bilaterally; Absent respiratory distress or wheezes Cardiovascular Cardiovascular exam: Present regular rate, normal rhythm and normal heart sounds Abdominal Exam Abdominal exam: Present soft and normal bowel sounds; Absent distention or tenderness Neurological Exam Neurological exam: Present alert, oriented X3 and normal gait Medical Decision Making Medical Records Screening: Per USPSTF and CDC recommendations, given the prevalence of disease in our region, it is our hospital?s policy to screen for HIV and viral Hepatitis for all patients aged 18 and over and those with ongoing risk factors. Adonay Inquiry Pt receiving controlled substance: No Adonay was queried for this patient: No Vital Signs: 11/22/24 16:05 Temperature 99.5 F Temperature Source Oral Pulse Rate [Left Brachial] 76 Respiratory Rate 21 Blood Pressure [Left Arm] 151/93 H Blood Pressure Mean [Left Arm] 112 Blood Pressure Source [Left Arm] Automatic Cuff Blood Pressure Position [Left Arm] Sitting 02 Sat by Pulse Oximetry 95 Oxygen Delivery Method Room Air Medical Decision Narrative: Discussed CXR and lab work and she declined, states that she has taken azithromycin and steriods in the past without complications or reactions
[2024-11-22 16:30] VITALS: BP 151/93; PULSE 76; RESP 21; TEMP 37.5; O2SAT 95
== END 2024-11-22 16:40 | disposition home or self-care (01) ==
PROVIDERS: Emergency Provider Nurse Practitioner; PCP Family Medicine
DX: J40 Bronchitis, not specified as acute or chronic (principal); R50.9 Fever, unspecified; R05.9 Cough, unspecified; R53.1 Weakness; M79.10 Myalgia, unspecified site; R09.89 Other specified symptoms and signs involving the circulatory and respiratory systems
CPT/HCPCS: 99212; G0381

== ENCOUNTER 2024-12-22 10:54 | Emergency (ER) | payer MEDICARE, OTHER, SELFPAY ==
[2024-12-22 10:56] VITALS: BP 129/76; PULSE 84; RESP 17; TEMP 36.7; O2SAT 96; BMI 44.9
[2024-12-22 11:10] LABS: Microscopic, Urine URINE MICROSCOPIC (MICROSCOPIC)
[2024-12-22 11:22] LABS: Appearance,Urine CLEAR (Clear); Bilirubin,Urine Negative (Negative); Blood, Urine TRACE-I (Negative); Color,Urine YELLOW (Yellow); Glucose,Urine (UA) Negative (Negative); Ketones,Urine Negative (Negative); Leukocyte Esterase,Urine 2+ (Negative); Nitrate,Urine Negative (Negative); PH,Urine 6.5 (5.0-8.5); Protein,Urine Negative (Negative); Specific Gravity, Urine 1.015 (1.005-1.030)
--- NOTE | 2024-12-22 11:22 | PC.NURSE ---
Rounded on the PT. The PT voices that she does not need anything at this time. Call light is within reach of the PT. is present at the BS.
[2024-12-22 11:30] VITALS: BP 132/85; PULSE 81; O2SAT 95
[2024-12-22 11:44] LABS: Bacteria,Urine Trace /lpf; RBC,Urine Occasional #/hpf (0-3); WBC,Urine 20-50 #/hpf (0-3)
--- NOTE | 2024-12-22 11:49 | PC.NURSE ---
DR RESTREPO AT BEDSIDE
--- NOTE | 2024-12-22 12:06 | PC.NURSE ---
PT PROVIDED WATER, NO FURTHER NEEDS AT THIS TIME. CALL LIGHT WITHIN REACH
--- NOTE | 2024-12-22 12:12 | HMH.EDGENADL ---
Discharge Plan Disposition Patient Disposition: Home, Self-Care Condition: Good Prescriptions Prescriptions: New sulfamethoxazole-trimethoprim [Bactrim DS] 800-160 mg tablet 1 tab PO BID 7 Days Qty: 14 0RF No Action sacubitril-valsartan [Entresto] 24-26 mg tablet See Rx Instructions .ROUTE .COMPLEX Qty: 90 1RF Dose Instruction: TAKE 1 TABLET BY MOUTH TWICE DAILY Rx Instructions: TAKE 1 TABLET BY MOUTH TWICE DAILY furosemide 40 mg tablet 40 mg PO DAILY atorvastatin 40 mg tablet 40 mg PO HS tramadol 50 mg tablet 50 mg PO DAILY spironolactone 25 mg tablet 25 mg PO DAILY carvedilol 3.125 mg tablet 3.125 mg PO DAILY famotidine 20 mg tablet 20 mg PO DAILY lorazepam 0.5 mg tablet 0.5 mg PO DAILY hydroxyzine HCl 25 mg tablet 25 mg PO DAILY mirtazapine 15 mg tablet 15 mg PO DAILY gabapentin 100 mg capsule 100 mg PO DAILY topiramate 100 mg tablet 100 mg PO DAILY duloxetine 60 mg capsule,delayed release(DR/EC) 60 mg PO DAILY quetiapine 50 mg tablet 50 mg PO DAILY cholecalciferol (vitamin D3) 50 mcg (2,000 unit) capsule 50 mcg PO DAILY Trelegy Ellipta 100-62.5-25 mcg blister with device 1 inh INHALATION DAILY Referrals Follow up/Referrals: Manas Jenkins MD [Primary Care Provider] - See instructions Activity Restrictions/Add. Instructions Additional Instructions/Restrictions: Take the antibiotics as prescribed and until completed. If your urine culture grows a bacteria that will not be cured by this antibiotic, you will be contacted for a new prescription. Please follow up with your primary care provider in 2-3 days. Please return to ED if your symptoms worsen, change in location, change in severity, new symptoms develop or if you become concerned for your health. Clinical Impressions Clinical Impression: Acute UTI Instructions Patient Instructions: DI for Urinary Tract Infection (UTI) Print Language Print Language: Norwegian Discharge ED Provider: Jana Caceres General Adult HPI General Chief complaint: Urogenital-Female Stated complaint: blood in urine lower back pain Time Seen by Provider: 12/22/24 11:48 Mode of Arrival: Wheelchair Source of Information: Patient Limitations: No Limitations Description of Symptoms (Recalled from ER Triage Doc. by RN): pt to the ED with lower back pain, nausea and blood in urine x 3 days. History of Present Illness HPI narrative: Patient is a 64-year-old female presenting with dysuria. Patient states she intermittently gets UTIs. She states approximately 3 days ago she had blood in her urine and since then has had increased urinary frequency and burning when she urinates. She denies fevers or chills. She has similar pain across her lower back. Patient denies constipation or diarrhea. Related Data Home Medications ?Medication ?Instructions ?Recorded ?Confirmed atorvastatin 40 mg tablet 40 mg PO HS 11/22/24 12/22/24 carvedilol 3.125 mg tablet 3.125 mg PO DAILY 11/22/24 12/22/24 cholecalciferol (vitamin D3) 50 50 mcg PO DAILY 11/22/24 12/22/24 mcg (2,000 unit) capsule duloxetine 60 mg capsule,delayed 60 mg PO DAILY 11/22/24 12/22/24 release famotidine 20 mg tablet 20 mg PO DAILY 11/22/24 12/22/24 fluticasone fur. 100 mcg-umeclid 1 inh inhalation DAILY 11/22/24 12/22/24 62.5 mcg-vilant 25 mcg inhalat.powder (Trelegy Ellipta) furosemide 40 mg tablet 40 mg PO DAILY 11/22/24 12/22/24 gabapentin 100 mg capsule 100 mg PO DAILY 11/22/24 12/22/24 hydroxyzine HCl 25 mg tablet 25 mg PO DAILY 11/22/24 12/22/24 lorazepam 0.5 mg tablet 0.5 mg PO DAILY 11/22/24 12/22/24 mirtazapine 15 mg tablet 15 mg PO DAILY 11/22/24 12/22/24 quetiapine 50 mg tablet 50 mg PO DAILY 11/22/24 12/22/24 spironolactone 25 mg tablet 25 mg PO DAILY 11/22/24 12/22/24 topiramate 100 mg tablet 100 mg PO DAILY 11/22/24 12/22/24 tramadol 50 mg tablet 50 mg PO DAILY 11/22/24 12/22/24 Previous Rx's ?Medication ?Instructions ?Recorded sacubitril 24 mg-valsartan 26 mg See Rx Instructions .Route 12/16/24 tablet (Entresto) .COMPLEX #90 tabs sulfamethoxazole 800 1 tab PO BID 7 days #14 tabs 12/22/24 mg-trimethoprim 160 mg tablet (Bactrim DS) Allergies Allergy/AdvReac Type Severity Reaction Status Date / Time sumatriptan Allergy Severe Difficulty Verified 12/22/24 11:16 Breathing fexofenadine (FEXOFENADINE) Allergy Intermediate SICK Verified 12/22/24 11:16 amoxicillin (From AUGMENTIN) Allergy Unknown SOA Verified 12/22/24 11:16 clavulanic acid (From Allergy Unknown SOA Verified 12/22/24 11:16 AUGMENTIN) naproxen (NAPROXEN) Allergy Unknown SWELLING Verified 12/22/24 11:16 acetaminophen (From Tylenol) AdvReac Other Verified 12/22/24 11:16 PFSH PFS Disclaimer: The information contained in this section may have been updated after the patient was seen, as this information can be updated by other users. Medical History Insomnia Oral dyskinesia Most likely secondary to prochlorperazine already discontinued by PCP COPD mixed type Lung nodule Dyspnea on exertion Encounter for screening for malignant neoplasm of lung History of asthma Stopped smoking with greater than 30 pack year history Edema of both lower extremities Takotsubo cardiomyopathy Mediastinal lymphadenopathy Hilar lymphadenopathy Asthma exacerbation APARNA (obstructive sleep apnea) Noncompliant with CPAP treatment. Brain TIA Asthma Hyperglycemia A1c hemoglobin pending, follow-up with PCP for results. Tremor 09/08/2024: Initial good response to topiramate but worsening of tremor since last visit. Indications, possible side effects were reviewed once again with the patient and her including but not limited to nephrolithiasis, paresthesias, word finding difficulty, neuro glaucoma). APARNA (obstructive sleep apnea) Osteoarthritis She was wheelchair-bound at last appointment and currently ambulatory with a walker Hypertensive disorder Hyperlipidemia Gastroesophageal reflux disease Surgical History H/O: History of arthroplasty of left shoulder H/O: hysterectomy History of cholecystectomy Family History Other Cancer 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 Smoking Status: Never smoker second hand exposure: Yes alcohol intake: never substance use type: denies use current occupational status: disabled Travel in the last 8 weeks: None household members: spouse housing: other marital status: current occupational exposures/hazards: No caffeine: Yes Have you lived/traveled outside US in past 30 days?: No Contact w/someone who lives/traveled outside US past 30 days?: No Exposure to someone with infectious disease in past 14 days?: No Do you have a fever (greater than 100.4 F or 38 C)?: No Have you tested positive for COVID-19: No Exposed to someone with COVID-19 in past 14 days?: No Do you have a sore throat?: No Do you have a cough?: No Do you have any weakness?: No Do you have any diarrhea?: No Are you experiencing any unusual bleeding?: No Do you have any muscle aches/pain?: No Do you have any abdominal pain?: No Are you experiencing loss of taste or smell?: No Other Medical History Have you received the Flu Vaccine for this season: No Have you received the Pneumonia Vaccine: No ROS Obtained: Yes All systems reviewed & no additional complaints except as documented Physical Exam General General appearance: alert and in no apparent distress Head Head exam: atraumatic Eye Eye exam: Present EOMI; Absent scleral icterus Neck Neck exam: Present full ROM Chest Chest inspection: Present normal inspection Respiratory Respiratory exam: Present normal lung sounds bilaterally Cardiovascular Cardiovascular exam: Present regular rate and normal rhythm Abdominal Exam Abdominal exam: Present soft; Absent distention or tenderness Abdominal tenderness: Absent suprapubic Extremities Exam Extremities exam: Present full ROM; Absent tenderness or edema Back Exam Back exam: Absent CVA tenderness (R) or CVA tenderness (L) Neurological Exam Neurological exam: Present alert and oriented X3 Psychiatric Psychiatric exam: Present normal mood Skin Skin exam: Present warm and dry Medical Decision Making Medical Records Medical records reviewed: Yes I reviewed the patient's medical records. Screening: Per USPSTF and CDC recommendations, given the prevalence of disease in our region, it is our hospital?s policy to screen for HIV and viral Hepatitis for all patients aged 18 and over and those with ongoing risk factors. Adonay Inquiry Pt receiving controlled substance: No Vital Signs: 12/22/24 10:56 12/22/24 11:30 Temperature 98.1 F Temperature Source Oral Pulse Rate 81 Pulse Rate [Left Radial] 84 Respiratory Rate 17 Blood Pressure 132/85 Blood Pressure [Right Arm] 129/76 Blood Pressure Mean [Right Arm] 93 Blood Pressure Source [Right Arm] Automatic Cuff Blood Pressure Position [Right Arm] Sitting 02 Sat by Pulse Oximetry 96 95 Oxygen Delivery Method Room Air Room Air Lab Data Lab results reviewed: Yes I reviewed the patient's lab results. Lab Results 12/22/24 11:02: Urine Color Yellow, Urine Appearance Clear, Urine pH 6.5, Ur Specific [place] 1.015, Urine Protein Negative, Urine Glucose (UA) Negative, Urine Ketones Negative, Urine Blood Trace-i, Urine Nitrate Negative, Urine Bilirubin Negative, Urine Urobilinogen 1.0, Ur Leukocyte Esterase 2+ A, Urine RBC Occasional, Urine WBC 20-50, Ur Squamous Epith Cells 10-20, Urine Bacteria Trace Orders (Tests/Meds): ORDERS Category Date Time Status Urinalysis and Microscopic Stat Lab 12/22/24 11:02 Completed Urine Culture Stat Micro 12/22/24 11:02 Received Medical Decision Narrative: In summary, patient is a 64-year-old female presenting with dysuria. Differential diagnosis includes was not limited to, acute cystitis, pyelonephritis, constipation, urogenital cancer, among others. Patient has a past medical history of total hysterectomy, multiple C-sections and bladder pinning. Patient has no systemic symptoms. Patient had no CVA tenderness or abdominal tenderness. Will evaluate with urinalysis and no hematologic tests at this time. I also considered CT imaging, however patient's hematuria stopped on Friday and she denies flank pain or prior renal stone history. Patient's urinalysis had slight contamination, however 2+ leukocyte esterase. Based on prior cultures, patient has grown Klebsiella pneumonia. Based on sensitivities on that culture, Bactrim is not effective therapy. Patient informed of findings and advised of antibiotic prescription. Patient given follow-up recommendations as well as return precautions. Patient discharged in stable condition. Critical Care Critical Care Time Critical Care Time: No
[2024-12-22 12:15] VITALS: BP 105/85; PULSE 85; RESP 17; TEMP 36.7; O2SAT 98
== END 2024-12-22 12:20 | disposition home or self-care (01) ==
PROVIDERS: Emergency Provider Student in an Organized Health Care Education/Training Program; PCP Family Medicine
DX: N39.0 Urinary tract infection, site not specified (principal); M54.50 Low back pain, unspecified; R30.0 Dysuria; R11.0 Nausea; R31.9 Hematuria, unspecified; R35.0 Frequency of micturition; R30.9 Painful micturition, unspecified
CPT/HCPCS: 81001; 87086; 87088; 87186; 99283

== ENCOUNTER 2024-12-29 07:23 | Day surgery (SDC) | payer MEDICARE, OTHER, SELFPAY ==
[2024-12-27 14:22] VITALS: BMI 41.5
[2024-12-29 08:15] VITALS: BP 127/82; PULSE 84; RESP 18; TEMP 36.6; O2SAT 91
--- NOTE | 2024-12-29 08:42 | P.PNANES_ITS ---
[facility] Disclaimer: The information contained in this section may have been updated after the patient was seen, as this information can be updated by other users. Medical History Anxiety and depression Arthritis Urinary tract infection History of COVID-19 Migraine History of stroke History of gastroesophageal reflux (GERD) History of anemia Insomnia COPD mixed type Oral dyskinesia Lung nodule Dyspnea on exertion Encounter for screening for malignant neoplasm of lung History of asthma Stopped smoking with greater than 30 pack year history Edema of both lower extremities Takotsubo cardiomyopathy Mediastinal lymphadenopathy Hilar lymphadenopathy Asthma exacerbation APARNA (obstructive sleep apnea) Brain TIA Asthma Hyperglycemia Tremor APARNA (obstructive sleep apnea) Osteoarthritis Hypertensive disorder Hyperlipidemia Gastroesophageal reflux disease Surgical History H/O elbow surgery History of carpal tunnel surgery of right wrist History of carpal tunnel surgery of left wrist H/O: History of arthroplasty of left shoulder H/O: hysterectomy History of cholecystectomy Family History Other Cancer 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 (Updated 12/29/24 @ 08:23 by Cristine Maria RN) Smoking Status: Former smoker tobacco type: cigarettes second hand exposure: Yes alcohol intake: former substance use type: denies use current occupational status: disabled Travel in the last 8 weeks: None household members: spouse housing: other marital status: current occupational exposures/hazards: No caffeine: Yes Have you lived/traveled outside [place] in past 30 days?: No Contact w/someone who lives/traveled outside [place] past 30 days?: No Exposure to someone with infectious disease in past 14 days?: No Do you have a fever (greater than 100.4 F or 38 C)?: No Have you tested positive for COVID-19: Yes Exposed to someone with COVID-19 in past 14 days?: No Do you have a sore throat?: No Do you have a cough?: No Do you have any weakness?: No Are you experiencing any nausea/vomitting?: No Do you have any diarrhea?: No Are you experiencing any unusual bleeding?: No Do you have any muscle aches/pain?: No Do you have any abdominal pain?: No Are you experiencing loss of taste or smell?: No [facility] Anesthesia Checklist Patient Identification Patient Identification: Verbal (Name & ) Structural Data Admitted From: Home Planned Operative Procedure/s: colonoscopy Consent for Planned Operative Procedure(s) Verified: Yes NPO Status Verified Time NPO: 00:00 Additional verifications Anesthesia Reactions: No Hx Blood Transfusions: No Blood Transfusion Reaction: No Airway Assessment Mallampati Score:: Class III C-Spine Mobility Assessed: Yes TMJ Mobility Assessed: Yes Dentition: Edentulous Neurological Assessment Level of Consciousness: Awake, Alert and Appropriate Anesthesia Plan Anesthesia Risk discussed: Yes Anesthesia Plan: Verified ASA Class: III Anesthesia Type: MAC
--- NOTE | 2024-12-29 09:03 | EXP.HP ---
History of Present Illness *Admission Date: 12/29/24 *Reason for visit:: Screening for colon cancer *History of present illness: Mrs. Mallory is a 64-year-old female who is here for screening colonoscopy. Her last colonoscopy was more than 10 years ago. The examination is deemed medically necessary for screening colonoscopy. The patient has been seen, interviewed and examined prior to the procedure by both myself and the anesthesia provider. [facility] Disclaimer: The information contained in this section may have been updated after the patient was seen, as this information can be updated by other users. Medical History (Updated 12/29/24 @ 09:04 by Abilio Matos II, MD) Anxiety and depression Arthritis Urinary tract infection History of COVID-19 Migraine History of stroke History of gastroesophageal reflux (GERD) History of anemia Insomnia COPD mixed type Oral dyskinesia Lung nodule Dyspnea on exertion Encounter for screening for malignant neoplasm of lung History of asthma Stopped smoking with greater than 30 pack year history Edema of both lower extremities Takotsubo cardiomyopathy Mediastinal lymphadenopathy Hilar lymphadenopathy Asthma exacerbation APARNA (obstructive sleep apnea) Brain TIA Asthma Hyperglycemia Tremor APARNA (obstructive sleep apnea) Osteoarthritis Hypertensive disorder Hyperlipidemia Gastroesophageal reflux disease Surgical History H/O elbow surgery History of carpal tunnel surgery of right wrist History of carpal tunnel surgery of left wrist H/O: History of arthroplasty of left shoulder H/O: hysterectomy History of cholecystectomy Family History Other Cancer 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 (Updated 12/29/24 @ 08:23 by Cristine Maria RN) Smoking Status: Former smoker tobacco type: cigarettes second hand exposure: Yes alcohol intake: former substance use type: denies use current occupational status: disabled Travel in the last 8 weeks: None household members: spouse housing: other marital status: current occupational exposures/hazards: No caffeine: Yes Have you lived/traveled outside [place] in past 30 days?: No Contact w/someone who lives/traveled outside [place] past 30 days?: No Exposure to someone with infectious disease in past 14 days?: No Do you have a fever (greater than 100.4 F or 38 C)?: No Have you tested positive for COVID-19: Yes Exposed to someone with COVID-19 in past 14 days?: No Do you have a sore throat?: No Do you have a cough?: No Do you have any weakness?: No Are you experiencing any nausea/vomitting?: No Do you have any diarrhea?: No Are you experiencing any unusual bleeding?: No Do you have any muscle aches/pain?: No Do you have any abdominal pain?: No Are you experiencing loss of taste or smell?: No Other Medical History Have you received the Flu Vaccine for this season: No Have you received the Pneumonia Vaccine: No Review of Systems Review of Systems Review of systems (narrative): Negative *Cardiovascular Comments: Negative *Gastrointestinal Comments: Negative *Genitourinary Comments: Negative *Musculoskeletal Comments: Negative *Neurologic Comments: Negative Meds Home Medications and Allergies Home Medications ?Medication ?Instructions ?Recorded ?Confirmed ?Type atorvastatin 40 mg tablet 40 mg PO HS 11/22/24 12/29/24 History carvedilol 3.125 mg tablet 3.125 mg PO DAILY 11/22/24 12/29/24 History cholecalciferol (vitamin D3) 50 50 mcg PO DAILY 11/22/24 12/29/24 History mcg (2,000 unit) capsule duloxetine 60 mg capsule,delayed 60 mg PO DAILY 11/22/24 12/29/24 History release famotidine 20 mg tablet 20 mg PO DAILY 11/22/24 12/29/24 History fluticasone fur. 100 mcg-umeclid 1 inh inhalation DAILY 11/22/24 12/29/24 History 62.5 mcg-vilant 25 mcg inhalat.powder (Trelegy Ellipta) furosemide 40 mg tablet 40 mg PO BID 11/22/24 12/29/24 History gabapentin 100 mg capsule 100 mg PO DAILY 11/22/24 12/29/24 History hydroxyzine HCl 25 mg tablet 25 mg PO DAILY 11/22/24 12/29/24 History lorazepam 0.5 mg tablet 0.5 mg PO DAILY 11/22/24 12/29/24 History mirtazapine 15 mg tablet 15 mg PO DAILY 11/22/24 12/29/24 History quetiapine 50 mg tablet 50 mg PO DAILY 11/22/24 12/29/24 History spironolactone 25 mg tablet 25 mg PO DAILY 11/22/24 12/29/24 History topiramate 100 mg tablet 100 mg PO DAILY 11/22/24 12/29/24 History tramadol 50 mg tablet 50 mg PO DAILY 11/22/24 12/29/24 History sacubitril 24 mg-valsartan 26 mg See Rx Instructions .Route 12/16/24 12/29/24 Rx tablet (Entresto) .COMPLEX #90 tabs aspirin 81 mg capsule 81 mg PO DAILY 12/29/24 12/29/24 History New Prescriptions to Start Prescriptions: Allergies Allergy/AdvReac Type Severity Reaction Status Date / Time sumatriptan Allergy Severe Difficulty Verified 12/29/24 08:07 Breathing fexofenadine (FEXOFENADINE) Allergy Intermediate SICK Verified 12/29/24 08:07 amoxicillin (From AUGMENTIN) Allergy Unknown SOA Verified 12/29/24 08:07 clavulanic acid (From Allergy Unknown SOA Verified 12/29/24 08:07 AUGMENTIN) naproxen (NAPROXEN) Allergy Unknown SWELLING Verified 12/29/24 08:07 acetaminophen (From Tylenol) AdvReac Other Verified 12/29/24 08:07 Exam Data for Last 24 hours Vital signs and Labs for Last 24 Hours: Temp Pulse Resp BP Pulse Ox O2 Del Method 97.8 F 84 18 127/82 91 L Room Air 12/29/24 08:15 12/29/24 08:15 12/29/24 08:15 12/29/24 08:15 12/29/24 08:15 12/29/24 08:15 I & O for Last 24 hours: Intake & Output 12/26/24 12/27/24 12/28/24 12/29/24 23:59 23:59 23:59 23:59 Weight 250 lb *Routine HEENT Exam Head: Present normocephalic Eye: Present EOMI and PERRL ENT: Present mucous membranes moist *Routine Neck Exam Neck: Present supple *Routine Respiratory Exam Respiratory: Present CTA bilaterally *Routine Cardiovascular Exam Cardiovascular: Present RRR *Routine Abdominal Exam Abdominal: Present soft and normoactive bowel sounds; Absent tenderness *Routine Rectal Exam Rectal:: deferred *Routine Genitalia Exam Genitalia:: deferred *Routine Extremities Exam Extremities: Absent cyanosis, clubbing or edema *Routine Skin Exam Skin: Present warm; Absent rash *Routine Neurological Exam Neurological: Present alert and oriented X3 Assessment and Plan *Assessment and plan (1) Screening for colon cancer: Status: Acute Category: Medical Code(s): Z12.11 - Encounter for screening for malignant neoplasm of colon Plan A/P: 1. Screening for colon cancer is the preprocedural diagnosis. The patient will be anesthetized/sedated using MAC sedation. The patient has been seen and examined. Cardiac and lung assessment prior to the examination is stable. Proceed with planned screening colonoscopy
[2024-12-29 09:08] VITALS: O2SAT 98
--- NOTE | 2024-12-29 09:13 | HMH.PROCNOTE ---
[facility] Procedure Note Date: 12/29/24 Time: 09:29 Procedure Note:: Colonoscopy Procedure Report: Colonoscopy Endoscopist: Abilio Matos II, MD Referring physician: Manas Jenkins MD Date of Procedure: December 29, 2024 Equipment: Olympus 190 variable stiffness pediatric colonoscope Sedation: MAC sedation Indication: Mrs. Mallory is a 64-year-old female who is here for screening colonoscopy since it has been more than 10 years. The patient does struggle with some dyspepsia, nausea and bloating. She reports no change in bowel habits, weight loss or family history of colon cancer. She does have occasional spotting of blood from internal hemorrhoids. She does have some chronic constipation and has been on tramadol. Her CAT scan was unremarkable except for obstipation and increased fecal burden. Procedure: Prior to the procedure, a history and physical exam was performed, and patient's medications and allergies were reviewed. The risks, benefits and alternatives of the sedation and procedure were discussed with the patient. All questions were answered and informed consent was obtained. The patient was brought to the procedure room. Patient identification and proposed procedure were verified by the physician and the nurse. The patient was placed in a left lateral decubitus position and the scope was passed under direct vision. Throughout the procedure, the patient's blood pressure, pulse, and oxygen saturations were monitored continuously. The colonoscopy was accomplished without difficulty. The patient tolerated the procedure well. Findings: On digital rectal examination there was normal rectal tone. There were no external hemorrhoids. The colonoscope was introduced through the anal canal to the rectum and advanced to the cecum. The ileocecal valve and appendiceal orifice were identified. The scope was advanced a short distance into the ileum which appeared grossly normal. The scope was then withdrawn into the colon. The preparation was fair to poor with moderate to marked amount of yellowish-brown liquid stool which was vigorously washed. The visualized cecum, ascending and transverse colon and mucosa were grossly normal. There were scattered diverticuli throughout the descending and sigmoid colon (LEFT colon). The rectum itself was normal. Upon retroflexion within the rectum there were grade 2 internal hemorrhoids. The preparation was fair to poor throughout with Manti Preparation Score of 5-6 out of 9. The cecal time was 12 minutes. Impression: 1. Left-sided diverticulosis 2. Grade 2 internal hemorrhoids 3. Fair to poor bowel preparation Plan: Based upon patient's age and comorbidities, I am not going to have a repeat colonoscopy. I would encourage fiber bowel regimen on a long-term daily maintenance basis. I would also consider adding Movantik for Relistor because of her use of tramadol (medication/opiate induced constipation).
[2024-12-29 09:31] VITALS: BP 132/75; PULSE 83; RESP 16; TEMP 37.2; O2SAT 94
[2024-12-29 09:39] VITALS: BP 137/75; PULSE 83; RESP 17; O2SAT 97
[2024-12-29 09:51] VITALS: BP 128/79; PULSE 81; RESP 18; O2SAT 97
[2024-12-29 10:01] VITALS: BP 141/76; PULSE 84; RESP 17; O2SAT 97
== END 2024-12-29 10:23 | disposition home or self-care (01) ==
PROVIDERS: PCP Family Medicine; Visit Provider Internal Medicine Gastroenterology
PROC: 0DJD8ZZ Inspection of Lower Intestinal Tract, Via Natural or Artificial Opening Endoscopic (ICD-10-PCS; CPT 45378; principal; 2024-12-29 09:00)
DX: Z12.11 Encounter for screening for malignant neoplasm of colon (principal); K59.03 Drug induced constipation; K57.30 Diverticulosis of large intestine without perforation or abscess without bleeding; K64.1 Second degree hemorrhoids
CPT/HCPCS: G0121

== ENCOUNTER 2025-01-02 14:02 | Emergency (ER) | payer MEDICARE, OTHER, SELFPAY ==
[2025-01-02 14:03] VITALS: BP 113/69; PULSE 82; RESP 16; TEMP 37.1; O2SAT 91; BMI 41.5
[2025-01-02 14:22] VITALS: BP 128/70; PULSE 73; O2SAT 93
[2025-01-02 14:30] VITALS: BP 108/69; PULSE 78; O2SAT 90
--- NOTE | 2025-01-02 14:42 | PC.NURSE ---
DR EM AT BEDSIDE
[2025-01-02 14:47] LABS: Microscopic, Urine URINE MICROSCOPIC (MICROSCOPIC)
[2025-01-02 14:48] LABS: Appearance,Urine CLEAR (Clear); Bilirubin,Urine Negative (Negative); Blood, Urine Negative (Negative); Color,Urine YELLOW (Yellow); Glucose,Urine (UA) Negative (Negative); Ketones,Urine Negative (Negative); Leukocyte Esterase,Urine 2+ (Negative); Nitrate,Urine Negative (Negative); Protein,Urine Negative (Negative); Specific Gravity, Urine 1.025 (1.005-1.030); Urobilinogen,Urine 0.2 EU/dl (0.2)
--- NOTE | 2025-01-02 14:52 | HMH.EDGENADL ---
Discharge Plan Disposition Patient Disposition: Home, Self-Care Prescriptions Prescriptions: New nitrofurantoin monohyd/m-cryst [Macrobid] 100 mg capsule 100 mg PO BID 5 Days Qty: 10 0RF Rx Instructions: must administer with a meal/food No Action sacubitril-valsartan [Entresto] 24-26 mg tablet See Rx Instructions .ROUTE .COMPLEX Qty: 90 1RF Dose Instruction: TAKE 1 TABLET BY MOUTH TWICE DAILY Rx Instructions: TAKE 1 TABLET BY MOUTH TWICE DAILY aspirin 81 mg Capsule 81 mg PO DAILY Relistor 150 mg tablet 450 mg PO DAILY Qty: 90 12RF Rx Instructions: Please take 3 tablets p.o. daily furosemide 40 mg tablet 40 mg PO BID atorvastatin 40 mg tablet 40 mg PO HS tramadol 50 mg tablet 50 mg PO DAILY spironolactone 25 mg tablet 25 mg PO DAILY carvedilol 3.125 mg tablet 3.125 mg PO DAILY famotidine 20 mg tablet 20 mg PO DAILY lorazepam 0.5 mg tablet 0.5 mg PO DAILY hydroxyzine HCl 25 mg tablet 25 mg PO DAILY mirtazapine 15 mg tablet 15 mg PO DAILY gabapentin 100 mg capsule 100 mg PO DAILY topiramate 100 mg tablet 100 mg PO DAILY duloxetine 60 mg capsule,delayed release(DR/EC) 60 mg PO DAILY quetiapine 50 mg tablet 50 mg PO DAILY cholecalciferol (vitamin D3) 50 mcg (2,000 unit) capsule 50 mcg PO DAILY Trelegy Ellipta 100-62.5-25 mcg blister with device 1 inh INHALATION DAILY Referrals Follow up/Referrals: Colten Millan MD [Staff Physician] - See instructions Manas Jenkins MD [Primary Care Provider] - See instructions Activity Restrictions/Add. Instructions Additional Instructions/Restrictions: At this time it was felt you are safe to be discharged home. If new or worsening symptoms please do not hesitate to return the emergency department. Please call and schedule appoint with Dr. Millan as soon as you are able. Clinical Impressions Clinical Impression: Acute UTI, Back pain Instructions Patient Instructions: DI for Acute Abdominal Pain Print Language Print Language: Greenlandic Discharge ED Provider: Shelton Garcia General Adult HPI General Chief complaint: Abdominal Pain Stated complaint: frequent, painful urination, back pain Time Seen by Provider: 01/02/25 14:07 Mode of Arrival: Wheelchair Source of Information: Patient Limitations: No Limitations Description of Symptoms (Recalled from ER Triage Doc. by RN): Patient presetns with triage via wheelchair. States she has been having frequent urination and back pain. Patient denies vomiting. Endorses nausea. States she has frequent UTIs. States she had a colonoscopy on Friday where she had some polyps removed. States she had some blood in her stool, but that is clearing up. Denies fever. Denies sick contacts. States, I think it's a urinary tract infection or a kidney infection. I'm tired of getting these. I need to know what is causing them. History of Present Illness HPI narrative: Patient is a 64-year-old female with past medical history of recurrent urinary tract infections who presents to the emergency department for evaluation of dysuria. Onset was acute, over the last 24 to 48 hours. She has frequent urinary tract infections and knows she is getting them because it hogue when she pees and radiates through to her right lower back. No vomiting, no anterior abdominal pain, no chest pain. Patient recently had colonoscopy where polyps were found and has been stooling appropriately since then with a little bit of blood initially however it is improving. No vomiting. Due to persistent symptoms she presents here for continued evaluation. Related Data Home Medications ?Medication ?Instructions ?Recorded ?Confirmed atorvastatin 40 mg tablet 40 mg PO HS 11/22/24 12/29/24 carvedilol 3.125 mg tablet 3.125 mg PO DAILY 11/22/24 12/29/24 cholecalciferol (vitamin D3) 50 50 mcg PO DAILY 11/22/24 12/29/24 mcg (2,000 unit) capsule duloxetine 60 mg capsule,delayed 60 mg PO DAILY 11/22/24 12/29/24 release famotidine 20 mg tablet 20 mg PO DAILY 11/22/24 12/29/24 fluticasone fur. 100 mcg-umeclid 1 inh inhalation DAILY 11/22/24 12/29/24 62.5 mcg-vilant 25 mcg inhalat.powder (Trelegy Ellipta) furosemide 40 mg tablet 40 mg PO BID 11/22/24 12/29/24 gabapentin 100 mg capsule 100 mg PO DAILY 11/22/24 12/29/24 hydroxyzine HCl 25 mg tablet 25 mg PO DAILY 11/22/24 12/29/24 lorazepam 0.5 mg tablet 0.5 mg PO DAILY 11/22/24 12/29/24 mirtazapine 15 mg tablet 15 mg PO DAILY 11/22/24 12/29/24 quetiapine 50 mg tablet 50 mg PO DAILY 11/22/24 12/29/24 spironolactone 25 mg tablet 25 mg PO DAILY 11/22/24 12/29/24 topiramate 100 mg tablet 100 mg PO DAILY 11/22/24 12/29/24 tramadol 50 mg tablet 50 mg PO DAILY 11/22/24 12/29/24 aspirin 81 mg capsule 81 mg PO DAILY 12/29/24 12/29/24 Previous Rx's ?Medication ?Instructions ?Recorded sacubitril 24 mg-valsartan 26 mg See Rx Instructions .Route 12/16/24 tablet (Entresto) .COMPLEX #90 tabs methylnaltrexone 150 mg tablet 450 mg (3 x 150 mg) PO DAILY #90 12/29/24 (Relistor) tabs nitrofurantoin 100 mg PO BID uti 5 days #10 caps 01/02/25 monohydrate/macrocrystals 100 mg capsule (Macrobid) Allergies Allergy/AdvReac Type Severity Reaction Status Date / Time sumatriptan Allergy Severe Difficulty Verified 12/29/24 08:07 Breathing fexofenadine (FEXOFENADINE) Allergy Intermediate SICK Verified 12/29/24 08:07 amoxicillin (From AUGMENTIN) Allergy Unknown SOA Verified 12/29/24 08:07 clavulanic acid (From Allergy Unknown SOA Verified 12/29/24 08:07 AUGMENTIN) naproxen (NAPROXEN) Allergy Unknown SWELLING Verified 12/29/24 08:07 acetaminophen (From Tylenol) AdvReac Other Verified 12/29/24 08:07 [facility] Disclaimer: The information contained in this section may have been updated after the patient was seen, as this information can be updated by other users. Medical History (Updated 01/02/25 @ 15:06 by Shelton Garcia MD) Anxiety and depression Arthritis Urinary tract infection History of COVID-19 Migraine History of stroke History of gastroesophageal reflux (GERD) History of anemia Insomnia COPD mixed type Oral dyskinesia Lung nodule Dyspnea on exertion Encounter for screening for malignant neoplasm of lung History of asthma Stopped smoking with greater than 30 pack year history Edema of both lower extremities Takotsubo cardiomyopathy Mediastinal lymphadenopathy Hilar lymphadenopathy Asthma exacerbation APARNA (obstructive sleep apnea) Brain TIA Asthma Hyperglycemia Tremor APARNA (obstructive sleep apnea) Osteoarthritis Hypertensive disorder Hyperlipidemia Gastroesophageal reflux disease Surgical History H/O elbow surgery History of carpal tunnel surgery of right wrist History of carpal tunnel surgery of left wrist H/O: History of arthroplasty of left shoulder H/O: hysterectomy History of cholecystectomy Family History Other Cancer 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 Smoking Status: Never smoker second hand exposure: Yes alcohol intake: former substance use type: denies use current occupational status: disabled Travel in the last 8 weeks: None household members: spouse housing: other marital status: current occupational exposures/hazards: No caffeine: Yes Have you lived/traveled outside [place] in past 30 days?: No Contact w/someone who lives/traveled outside [place] past 30 days?: No Exposure to someone with infectious disease in past 14 days?: No Do you have a fever (greater than 100.4 F or 38 C)?: No Have you tested positive for COVID-19: No Exposed to someone with COVID-19 in past 14 days?: No Do you have a sore throat?: No Do you have a cough?: No Do you have any weakness?: No Do you have any diarrhea?: No Are you experiencing any unusual bleeding?: No Do you have any muscle aches/pain?: Yes Do you have any abdominal pain?: No Are you experiencing loss of taste or smell?: No Other Medical History Have you received the Flu Vaccine for this season: No Have you received the Pneumonia Vaccine: No ROS Obtained: Yes Systems reviewed as appropriate & no additional complaints except as documented Physical Exam General General appearance: alert and in no apparent distress Head Head exam: atraumatic and normocephalic Eye Eye exam: Present PERRL ENT ENT exam: Present mucous membranes moist Neck Neck exam: Present normal inspection Chest Chest inspection: Present normal inspection and symmetric chest wall rise Respiratory Respiratory exam: Absent respiratory distress Cardiovascular Cardiovascular exam: Present regular rate and normal rhythm Abdominal Exam Abdominal exam: Present soft; Absent tenderness, guarding, rebound or rigidity Extremities Exam Extremities exam: Present normal inspection Back Exam Back exam: Present other (Normal inspection, no overlying rashes, no midline tenderness.) Neurological Exam Neurological exam: Present alert Psychiatric Psychiatric exam: Present normal affect Skin Skin exam: Present warm and dry Medical Decision Making Medical Records Screening: Per USPSTF and CDC recommendations, given the prevalence of disease in our region, it is our hospital?s policy to screen for HIV and viral Hepatitis for all patients aged 18 and over and those with ongoing risk factors. [place] Inquiry Pt receiving controlled substance: No Vital Signs: 01/02/25 14:03 01/02/25 14:22 01/02/25 14:30 Temperature 98.7 F Temperature Source Oral Pulse Rate 73 78 Pulse Rate [Radial] 82 Respiratory Rate 16 Blood Pressure 128/70 108/69 L Blood Pressure [R Arm] 113/69 Blood Pressure Mean [R Arm] 83 Blood Pressure Source [R Arm] Automatic Cuff Blood Pressure Position [R Arm] Sitting 02 Sat by Pulse Oximetry 91 L 93 L 90 L Oxygen Delivery Method Room Air Room Air Room Air 01/02/25 15:00 Temperature Temperature Source Pulse Rate 70 Pulse Rate [Radial] Respiratory Rate Blood Pressure 105/67 L Blood Pressure [R Arm] Blood Pressure Mean [R Arm] Blood Pressure Source [R Arm] Blood Pressure Position [R Arm] 02 Sat by Pulse Oximetry 92 L Oxygen Delivery Method Room Air Lab Data Lab Results 01/02/25 14:20: Urine Color Yellow, Urine Appearance Clear, Urine pH 6.0, Ur Specific [place] 1.025, Urine Protein Negative, Urine Glucose (UA) Negative, Urine Ketones Negative, Urine Blood Negative, Urine Nitrate Negative, Urine Bilirubin Negative, Urine Urobilinogen 0.2, Ur Leukocyte Esterase 2+ A, Urine RBC None, Urine WBC 3-5, Ur Squamous Epith Cells 5-10, Urine Bacteria 1+, Hyaline Casts 3-5 Orders (Tests/Meds): ORDERS Category Date Time Status UA [Urinalysis and Microscopic] Stat Lab 01/02/25 14:20 Completed Urine Culture Stat Micro 01/02/25 14:20 Received Medical Decision Narrative: In summary patient is 64-year-old female with past medical history described above presents emergency department for evaluation of dysuria with pain radiating through to her low back similar to her previous multiple urinary tract infections. Patient is hemodynamically stable nontoxic-appearing upon arrival, afebrile. Differential includes urinary tract infection, among others. I considered diagnostic imaging and hematologic labs however patient is well-appearing and if patient had complication from colonoscopy such as perforated hollow viscus I would expect her to be critically ill by now and have abdominal tenderness so investigation of this will be deferred at this time. Limited workup will be conducted with urinalysis. Urinalysis interpreted by me and is consistent with nitrate negative infection, there is some contamination however there is bacteria white blood cells positive leuk esterase and symptomatic dysuria which will be treated with a course of Macrobid. With respect to back pain it may be from her urinary tract infection or an nonemergent cause and given that she has no red flag symptoms regarding her back pain further investigation of this is not warranted at this time. Patient is appropriate for discharge and was given return precautions. Critical Care Critical Care Time Critical Care Time: No
[2025-01-02 15:00] VITALS: BP 105/67; PULSE 70; O2SAT 92
[2025-01-02 15:03] LABS: Bacteria,Urine 1+ /lpf
[2025-01-02 15:12] VITALS: BP 105/67; PULSE 74; RESP 18; TEMP 37.1; O2SAT 95
[2025-01-02] MEDS: NITROFURANTOIN 100MG CAPSULE 100 MG PO (15:13)
--- NOTE | 2025-01-07 08:19 | PC.NURSE ---
Sony PECK spoke with the pt relaying micro growth results from her urine.
== END 2025-01-02 15:28 | disposition home or self-care (01) ==
PROVIDERS: Emergency Provider Emergency Medicine; PCP Family Medicine
DX: N39.0 Urinary tract infection, site not specified (principal); M54.50 Low back pain, unspecified; R30.9 Painful micturition, unspecified; R35.0 Frequency of micturition; R30.0 Dysuria
CPT/HCPCS: 81001; 87086; 99283

== ENCOUNTER 2025-01-03 09:18 | Outpatient (CLI) | payer MEDICARE, OTHER, SELFPAY ==
--- NOTE | 2025-01-03 09:22 | XR_ITS ---
FINAL REPORT CLINICAL HISTORY: right shoulder pain COMPARISON: None FINDINGS: Two views show no evidence of an acute, displaced fracture or dislocation of the visualized bony architecture. There are severe osteoarthritic changes of the glenohumeral joint. There is mild acromioclavicular joint arthropathy. Bulky osteophytes are noted with subchondral cystic change and sclerosis. IMPRESSION: Severe degenerative changes without fracture. Reviewed, Interpreted and Dictated by Anisa Arita MD Transcribed by Beth Wilson Authenticated and [facility]
== END 2025-01-03 23:59 | disposition home or self-care (01) ==
LOC: RAD 09:20
PROVIDERS: PCP Family Medicine; Visit Provider Physician Assistant
DX: M25.511 Pain in right shoulder (principal)
CPT/HCPCS: 73030

== ENCOUNTER 2025-01-22 17:08 | Emergency (ER) | payer MEDICARE, OTHER, SELFPAY ==
[2025-01-22 17:08] VITALS: BP 146/75; PULSE 77; RESP 20; TEMP 36.9; O2SAT 93; BMI 43.2
[2025-01-22 17:28] VITALS: BP 146/75; PULSE 80; O2SAT 92
[2025-01-22 17:30] VITALS: BP 118/79; PULSE 79; O2SAT 93
--- NOTE | 2025-01-22 17:34 | ED_ITS ---
Discharge Plan Disposition Patient Disposition: Home, Self-Care Prescriptions Prescriptions: New nitrofurantoin macrocrystal 100 mg capsule 100 mg PO BID 5 Days Qty: 10 0RF Rx Instructions: must administer with a meal/food No Action celecoxib [Celebrex] 100 mg capsule 100 mg PO DAILY Qty: 60 2RF sacubitril-valsartan [Entresto] 24-26 mg tablet See Rx Instructions .ROUTE .COMPLEX Qty: 90 1RF Dose Instruction: TAKE 1 TABLET BY MOUTH TWICE DAILY Rx Instructions: TAKE 1 TABLET BY MOUTH TWICE DAILY Linzess 290 mcg capsule 290 mcg PO DAILY Qty: 30 12RF Rx Instructions: Please take 1 capsule p.o. daily Trelegy Ellipta 100-62.5-25 mcg blister with device 1 inh inhalation DAILY 90 Days Qty: 90 3RF albuterol sulfate [Ventolin HFA] 90 mcg/actuation HFA aerosol inhaler 2 inh inhalation Q6H PRN (Reason: shortness of breath or wheezing) 90 Days Qty: 18 3RF aspirin 81 mg Capsule 81 mg PO DAILY Relistor 150 mg tablet 450 mg PO DAILY Qty: 90 12RF Rx Instructions: Please take 3 tablets p.o. daily furosemide 40 mg tablet 40 mg PO BID atorvastatin 40 mg tablet 40 mg PO HS tramadol 50 mg tablet 50 mg PO DAILY spironolactone 25 mg tablet 25 mg PO DAILY carvedilol 3.125 mg tablet 3.125 mg PO DAILY famotidine 20 mg tablet 20 mg PO DAILY lorazepam 0.5 mg tablet 0.5 mg PO DAILY hydroxyzine HCl 25 mg tablet 25 mg PO DAILY mirtazapine 15 mg tablet 15 mg PO DAILY gabapentin 100 mg capsule 100 mg PO DAILY topiramate 100 mg tablet 100 mg PO DAILY duloxetine 60 mg capsule,delayed release(DR/EC) 60 mg PO DAILY quetiapine 50 mg tablet 50 mg PO DAILY cholecalciferol (vitamin D3) 50 mcg (2,000 unit) capsule 50 mcg PO DAILY Trelegy Ellipta 100-62.5-25 mcg blister with device 1 inh INHALATION DAILY nitrofurantoin monohyd/m-cryst [Macrobid] 100 mg capsule 100 mg PO BID 5 Days Qty: 10 0RF Rx Instructions: must administer with a meal/food Referrals Follow up/Referrals: Manas Jenkins MD [Primary Care Provider] - See instructions Activity Restrictions/Add. Instructions Additional Instructions/Restrictions: Take the antibiotic as prescribed until completion. Follow-up with Dr. Millan on the as scheduled. If you develop any new or worsening symptoms, such as high fever, worsening pain, or if you become concerned for your health for any reason, return to the emergency department for evaluation Clinical Impressions Clinical Impression: UTI (urinary tract infection) Instructions Patient Instructions: DI for Urinary Tract Infection (UTI), DI for Urinary Tract Infection in Children Print Language Print Language: Bulgarian Discharge ED Provider: Mohsen Haywood General Adult HPI General Chief complaint: Urogenital-Female Stated complaint: diff urination Time Seen by Provider: 01/22/25 17:24 Mode of Arrival: Wheelchair Source of Information: Patient and Spouse Limitations: No Limitations Description of Symptoms (Recalled from ER Triage Doc. by RN): urinary issues,back pain History of Present Illness HPI narrative: Laura Mallory is a 64-year-old female with a history of recurrent urinary tract infections, heart failure who presents to the emergency department for complaints of urinary retention. Patient states that today, she has had some burning with urination and pain in her right back and does not believe she is urinating as much as she should. She notes that she takes 40 mg of Lasix twice daily and states that she is only had a small amount of urine output today. She states that she is post to see Dr. Millan with urology on the of this month for her recurrent urinary tract infections. She is unsure why she has recurrent urinary tract infections. She notes that she was treated for UTI on 02 January and completed her course of antibiotics and then but her symptoms have returned. She denies any fevers, abdominal pain or abdominal pressure. Related Data Home Medications ?Medication ?Instructions ?Recorded ?Confirmed atorvastatin 40 mg tablet 40 mg PO HS 11/22/24 01/02/25 carvedilol 3.125 mg tablet 3.125 mg PO DAILY 11/22/24 01/02/25 cholecalciferol (vitamin D3) 50 50 mcg PO DAILY 11/22/24 01/02/25 mcg (2,000 unit) capsule duloxetine 60 mg capsule,delayed 60 mg PO DAILY 11/22/24 01/02/25 release famotidine 20 mg tablet 20 mg PO DAILY 11/22/24 01/02/25 fluticasone fur. 100 mcg-umeclid 1 inh inhalation DAILY 11/22/24 01/02/25 62.5 mcg-vilant 25 mcg inhalat.powder (Trelegy Ellipta) furosemide 40 mg tablet 40 mg PO BID 11/22/24 01/02/25 gabapentin 100 mg capsule 100 mg PO DAILY 11/22/24 01/02/25 hydroxyzine HCl 25 mg tablet 25 mg PO DAILY 11/22/24 01/02/25 lorazepam 0.5 mg tablet 0.5 mg PO DAILY 11/22/24 01/02/25 mirtazapine 15 mg tablet 15 mg PO DAILY 11/22/24 01/02/25 quetiapine 50 mg tablet 50 mg PO DAILY 11/22/24 01/02/25 spironolactone 25 mg tablet 25 mg PO DAILY 11/22/24 01/02/25 topiramate 100 mg tablet 100 mg PO DAILY 11/22/24 01/02/25 tramadol 50 mg tablet 50 mg PO DAILY 11/22/24 01/02/25 aspirin 81 mg capsule 81 mg PO DAILY 12/29/24 01/02/25 Previous Rx's ?Medication ?Instructions ?Recorded sacubitril 24 mg-valsartan 26 mg See Rx Instructions .Route 12/16/24 tablet (Entresto) .COMPLEX #90 tabs methylnaltrexone 150 mg tablet 450 mg (3 x 150 mg) PO DAILY #90 12/29/24 (Relistor) tabs nitrofurantoin 100 mg PO BID uti 5 days #10 caps 01/02/25 monohydrate/macrocrystals 100 mg capsule (Macrobid) celecoxib 100 mg capsule (Celebrex) 100 mg PO DAILY #60 caps 01/03/25 linaclotide 290 mcg capsule 290 mcg PO DAILY #30 caps 01/06/25 (Linzess) albuterol sulfate 90 mcg/actuation 2 inh inhalation Q6H PRN shortness 01/19/25 aerosol inhaler (Ventolin HFA) of breath or wheezing 90 days #18 grams fluticasone fur. 100 mcg-umeclid 1 inh inhalation DAILY 90 days #90 01/19/25 62.5 mcg-vilant 25 mcg ea inhalat.powder (Trelegy Ellipta) nitrofurantoin macrocrystal 100 mg 100 mg PO BID 5 days #10 caps 01/22/25 capsule Allergies Allergy/AdvReac Type Severity Reaction Status Date / Time sumatriptan Allergy Severe Difficulty Verified 01/03/25 09:57 Breathing fexofenadine (FEXOFENADINE) Allergy Intermediate SICK Verified 01/03/25 09:57 amoxicillin (From AUGMENTIN) Allergy Unknown SOA Verified 01/03/25 09:57 clavulanic acid (From Allergy Unknown SOA Verified 01/03/25 09:57 AUGMENTIN) naproxen (NAPROXEN) Allergy Unknown SWELLING Verified 01/03/25 09:57 acetaminophen (From Tylenol) AdvReac Other Verified 01/03/25 09:57 PFSH PFS Disclaimer: The information contained in this section may have been updated after the patient was seen, as this information can be updated by other users. Medical History Anxiety and depression Arthritis Urinary tract infection History of COVID-19 Migraine History of stroke History of gastroesophageal reflux (GERD) History of anemia Insomnia COPD mixed type Oral dyskinesia Most likely secondary to prochlorperazine already discontinued by PCP Lung nodule Dyspnea on exertion Encounter for screening for malignant neoplasm of lung History of asthma Stopped smoking with greater than 30 pack year history Edema of both lower extremities Takotsubo cardiomyopathy Mediastinal lymphadenopathy Hilar lymphadenopathy Asthma exacerbation APARNA (obstructive sleep apnea) Noncompliant with CPAP treatment. Brain TIA Asthma Hyperglycemia A1c hemoglobin pending, follow-up with PCP for results. Tremor 09/08/2024: Initial good response to topiramate but worsening of tremor since last visit. Indications, possible side effects were reviewed once again with the patient and her including but not limited to nephrolithiasis, paresthesias, word finding difficulty, neuro glaucoma). APARNA (obstructive sleep apnea) Osteoarthritis She was wheelchair-bound at last appointment and currently ambulatory with a walker Hypertensive disorder Hyperlipidemia Gastroesophageal reflux disease Surgical History H/O elbow surgery LEFT History of carpal tunnel surgery of right wrist History of carpal tunnel surgery of left wrist H/O: History of arthroplasty of left shoulder H/O: hysterectomy History of cholecystectomy Family History Other Cancer 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 Smoking Status: Never smoker second hand exposure: Yes alcohol intake: former substance use type: denies use current occupational status: disabled Travel in the last 8 weeks: None household members: spouse housing: other marital status: current occupational exposures/hazards: No caffeine: Yes Have you lived/traveled outside [place] in past 30 days?: No Contact w/someone who lives/traveled outside [place] past 30 days?: No Exposure to someone with infectious disease in past 14 days?: No Do you have a fever (greater than 100.4 F or 38 C)?: No Have you tested positive for COVID-19: No Exposed to someone with COVID-19 in past 14 days?: No Do you have a sore throat?: No Do you have a cough?: No Do you have any weakness?: No Do you have any diarrhea?: No Are you experiencing any unusual bleeding?: No Do you have any muscle aches/pain?: No Do you have any abdominal pain?: No Are you experiencing loss of taste or smell?: No Other Medical History Have you received the Flu Vaccine for this season: No Have you received the Pneumonia Vaccine: Yes ROS Obtained: Yes Systems reviewed as appropriate & no additional complaints except as documented Physical Exam General General appearance: alert and in no apparent distress Head Head exam: atraumatic Eye Eye exam: Present normal appearance ENT ENT exam: Present normal external ear exam Neck Neck exam: Present full ROM Chest Chest inspection: Present symmetric chest wall rise Respiratory Respiratory exam: Present normal lung sounds bilaterally; Absent respiratory distress Cardiovascular Cardiovascular exam: Present regular rate and normal rhythm Abdominal Exam Abdominal exam: Present soft; Absent distention, tenderness or guarding Extremities Exam Extremities exam: Present normal inspection Back Exam Back exam: Present normal inspection and CVA tenderness (R); Absent CVA tenderness (L) Neurological Exam Neurological exam: Present alert and oriented X3 Psychiatric Psychiatric exam: Present normal affect Skin Skin exam: Present warm and dry Medical Decision Making Medical Records Screening: Per USPSTF and CDC recommendations, given the prevalence of disease in our region, it is our hospital?s policy to screen for HIV and viral Hepatitis for all patients aged 18 and over and those with ongoing risk factors. [place] Inquiry Pt receiving controlled substance: No Vital Signs: 01/22/25 17:08 01/22/25 17:28 01/22/25 17:30 Temperature 98.4 F Temperature Source Oral Pulse Rate 80 79 Pulse Rate [Right] 77 Respiratory Rate 20 Blood Pressure 146/75 H 118/79 Blood Pressure [Right Arm] 146/75 H Blood Pressure Mean [Right Arm] 98 02 Sat by Pulse Oximetry 93 L 92 L 93 L Oxygen Delivery Method Room Air Room Air Room Air Lab Data Lab Results 01/22/25 17:26: Urine Color Yellow, Urine Appearance Clear, Urine pH 6.0, Ur Specific [place] >= 1.030, Urine Protein Negative, Urine Glucose (UA) Negative, Urine Ketones Negative, Urine Blood Negative, Urine Nitrate Positive A, Urine Bilirubin Negative, Urine Urobilinogen 0.2, Ur Leukocyte Esterase 1+ A, Urine RBC None, Urine WBC 3-5, Ur Squamous Epith Cells 3-5, Calcium Oxalate Crystal 1+, Urine Bacteria 1+, Hyaline Casts 3-5 01/22/25 17:50: WBC 10.4, RBC 4.01 L, Hgb 11.7 L, Hct 37.6, MCV 93.8, MCH 29.2, MCHC 31.1 L, RDW 17.5, Plt Count 288, MPV 10.9 H, Neut % (Auto) 67.4, Lymph % (Auto) 20.8, [place] % (Auto) 8.0, Eos % (Auto) 1.8, Baso % (Auto) 0.6, Neut # (Auto) 7.0, Lymph # (Auto) 2.2, [place] # (Auto) 0.8, Eos # (Auto) 0.2, Baso # (Auto) 0.1, Sodium 137, Potassium 3.3 L, Chloride 99, Carbon Dioxide 30, Anion Gap 11.3, BUN 16, Creatinine 1.00, Estimated Creat Clear 50, Estimated GFR 56 L, Est GFR ( Amer) 67, Glucose 115 H, Calcium 8.6 01/22/25 17:50 01/22/25 17:50 Orders (Tests/Meds): ORDERS Category Date Time Status BMP [Basic Metabolic Panel] Stat Lab 01/22/25 17:50 Completed CBC w/Auto Diff [Complete Blood Count Auto Diff] Stat Lab 01/22/25 17:50 Completed UA [Urinalysis and Microscopic] Stat Lab 03/01/25 17:26 Completed Urine Culture Stat Micro 01/22/25 17:26 Received Medical Decision Narrative: Laura Mallory is a 64-year-old female with a history of recurrent urinary tract infections, heart failure who presents to the emergency department for complaints of urinary retention. Patient states that today, she has had some burning with urination and pain in her right back and does not believe she is urinating as much as she should. She notes that she takes 40 mg of Lasix twice daily and states that she is only had a small amount of urine output today. She states that she is post to see Dr. Millan with urology on the of this month for her recurrent urinary tract infections. She is unsure why she has recurrent urinary tract infections. She notes that she was treated for UTI on 02 January and completed her course of antibiotics and then but her symptoms have returned. She denies any fevers, abdominal pain or abdominal pressure. On arrival, patient is mildly hypertensive with blood pressure 146/75, heart rate within normal limits, breathing comfortably on room air with oxygen saturation mildly low at 93%, afebrile. Physical exam, as stated above, revealed an obese but nontoxic appearing female in no distress. She has no abdominal tenderness or distention. She has mild right-sided CVA tenderness but no left-sided CVA tenderness. Cardiopulmonary exam is unremarkable. Patient is concerned that she might not have an FER. Difficult diagnosis includes, but is not limited to: UTI, urinary retention, FER, pyelonephritis, among others. Workup in the emergency department included: Urinalysis, bladder scan, BMP and CBC to evaluate for any FER. CT imaging of the abdomen/pelvis was considered, however given patient has no abdominal pain and symptomatology is consistent with her previous UTIs and there is low concern for any acute intra-abdominal pathology. Given patient's reassuring vital signs, there is low concern for sepsis at this time. Previous records were reviewed by me personally and patient has had multiple visits to the emergency department with UTI diagnoses, most recently on January 02 of this year. She received a course of Macrobid and was referred to Dr. Millan at that time. Labs reviewed by me showed no FER, no leukocytosis. Urinalysis showed nitrite positive with 1+ leukocyte Estrace and 3-5 white blood cells. 1+ bacteria. Is concerning for mild urinary tract infection. Will treat patient with a 5-day course of nitrofurantoin. It was stressed to her that is important that she follow-up with Dr. Millan on the as scheduled due to her recurrent urinary tract infections. All questions were answered. She demonstrated understanding and was agreed with this plan. She was then discharged from the emergency department in stable condition. Critical Care Critical Care Time Critical Care Time: No
--- NOTE | 2025-01-22 17:47 | PC.NURSE ---
Pt had bladder scan performed by Ekaterina RN Volume 0 ml
[2025-01-22 17:58] LABS: Basophils # 0.1 K/mm3 (0-0.2); Basophils % 0.6 % (0.1-2.0); Eosinophils # 0.2 K/mm3 (0.0-0.4); Eosinophils % 1.8 % (0.1-12.0); Hematocrit 37.6 % (37.0-47.0); Hemoglobin 11.7 g/dL (12.2-16.2); Lymphocytes # 2.2 K/mm3 (0.7-4.5); Lymphocytes % 20.8 % (10-50); Mean Corpuscular HGB Conc 31.1 g/dL (31.8-35.4); Mean Corpuscular Hemoglobin 29.2 pg (27.0-31.2); Mean Corpuscular Volume 93.8 fl (81-99); Mean Platelet Volume 10.9 fl (7.4-10.4); Monocytes # 0.8 K/mm3 (0.1-1.0); Neutrophils % 67.4 % (37.0-80.0); Platelet Count 288 K/mm3 (142-424); Red Blood Count 4.01 M/mm3 (4.20-5.40); Red Cell Distribution Width 17.5 % (11.5-17.5); White Blood Count 10.4 K/mm3 (4.8-10.8)
[2025-01-22 18:03] LABS: Chloride 99 mmol/L (98-107); Potassium 3.3 mmoL/L (3.5-5.1); Sodium 137 mmol/L (136-145)
[2025-01-22 18:06] LABS: Anion Gap 11.3 mEq/L (5-15); Blood Urea Nitrogen 16 mg/dl (7-17); Calcium 8.6 mg/dl (8.4-10.2); Carbon Dioxide 30 mmol/L (22.0-30.0); Creatinine Clearance Estimated 50 mL/min (50-200); Estimated Glomerular Filt Rate 56 ml/min (>60); GFR (African American) 67 ML/MIN (>60); Glucose 115 mg/dl (74-100)
[2025-01-22 18:20] LABS: Microscopic, Urine URINE MICROSCOPIC (MICROSCOPIC)
[2025-01-22 18:23] LABS: Appearance,Urine CLEAR (Clear); Bilirubin,Urine Negative (Negative); Blood, Urine Negative (Negative); Color,Urine YELLOW (Yellow); Glucose,Urine (UA) Negative (Negative); Ketones,Urine Negative (Negative); Leukocyte Esterase,Urine 1+ (Negative); Nitrate,Urine POSITIVE (Negative); Protein,Urine Negative (Negative); Specific Gravity, Urine >= 1.030 (1.005-1.030); Urobilinogen,Urine 0.2 EU/dl (0.2)
[2025-01-22 18:34] LABS: Bacteria,Urine 1+ /lpf
[2025-01-22 18:35] LABS: Calcium Oxalate Crystals,Urine 1+ /lpf
[2025-01-22] MEDS: NITROFURANTOIN 100MG CAPSULE 100 MG PO (18:54)
[2025-01-22 18:55] VITALS: BP 118/79; PULSE 81; RESP 18; TEMP 36.8; O2SAT 95
== END 2025-01-22 18:57 | disposition home or self-care (01) ==
PROVIDERS: Emergency Provider Student in an Organized Health Care Education/Training Program; PCP Family Medicine
DX: N39.0 Urinary tract infection, site not specified (principal)
CPT/HCPCS: 80048; 81001; 85025; 87086; 99283

== ENCOUNTER 2025-02-14 08:56 | Emergency (ER) | payer MEDICARE, OTHER, SELFPAY ==
[2025-02-14] VITALS (7 sets, daily range): BP systolic 76–126; BP diastolic 45–65; PULSE 71–94; RESP 16; TEMP 36.7; O2SAT 88–92; BMI 44.1
--- NOTE | 2025-02-14 09:10 | CT_ITS ---
FINAL REPORT TECHNIQUE: Thin section axial images were obtained from the lung bases to the pubic symphysis without IV contrast. Coronal and sagittal reconstruction images were obtained from the axial data. Exam was performed using dose reduction technique. CLINICAL HISTORY: lower abd pain, flank pain, recurrent UTI sx COMPARISON: 10/22/2024 FINDINGS: Left lower lobe atelectasis is present. There are no renal or ureteral stones. There is no hydronephrosis or perinephric stranding. The gallbladder has been surgically resected. The remaining unenhanced solid abdominal organs are unremarkable. There is no evidence of small bowel obstruction. The appendix is not well-visualized. GI tract is without acute abnormality. There are scattered diverticula present in the colon without acute inflammatory change. There is no lymphadenopathy or ascites. The uterus is absent. No abdominal or pelvic adenopathy is noted. There is a small focus of air in the bladder, presumably related to catheterization. No acute osseous abnormality is identified. IMPRESSION: No renal or ureteral stones. No hydronephrosis. A small focus of air is present in the bladder, presumably related to catheterization. Reviewed, Interpreted and Dictated by Lakesha Henriquez MD Transcribed by Cindi Rg Authenticated and . [facility]
[2025-02-14 09:12] LABS: Microscopic, Urine URINE MICROSCOPIC (MICROSCOPIC)
[2025-02-14 09:19] LABS: Appearance,Urine CLEAR (Clear); Bilirubin,Urine Negative (Negative); Blood, Urine Negative (Negative); Color,Urine YELLOW (Yellow); Glucose,Urine (UA) Negative (Negative); Ketones,Urine Negative (Negative); Leukocyte Esterase,Urine TRACE (Negative); Nitrate,Urine POSITIVE (Negative); Protein,Urine Negative (Negative); Urobilinogen,Urine 0.2 EU/dl (0.2)
--- NOTE | 2025-02-14 09:33 | [facility].EDGENADL ---
Discharge Plan Disposition Patient Disposition: Home, Self-Care Condition: Good Prescriptions Prescriptions: New levofloxacin 750 mg tablet 750 mg PO DAILY 7 Days Qty: 7 0RF ondansetron 4 mg tablet,disintegrating 4 mg PO Q8H PRN (Reason: nausea and vomiting) 4 Days Qty: 12 0RF No Action sacubitril-valsartan [Entresto] 24-26 mg tablet See Rx Instructions .ROUTE .COMPLEX Qty: 90 1RF Dose Instruction: TAKE 1 TABLET BY MOUTH TWICE DAILY Rx Instructions: TAKE 1 TABLET BY MOUTH TWICE DAILY Linzess 290 mcg capsule 290 mcg PO DAILY Qty: 30 12RF Rx Instructions: Please take 1 capsule p.o. daily Trelegy Ellipta 100-62.5-25 mcg blister with device 1 inh inhalation DAILY 90 Days Qty: 90 3RF albuterol sulfate [Ventolin HFA] 90 mcg/actuation HFA aerosol inhaler 2 inh inhalation Q6H PRN (Reason: shortness of breath or wheezing) 90 Days Qty: 18 3RF mirtazapine 15 mg tablet 15 mg PO DAILY Qty: 30 0RF quetiapine 50 mg tablet 50 mg PO DAILY Qty: 30 0RF celecoxib [Celebrex] 100 mg capsule 100 mg PO BID Qty: 60 2RF aspirin 81 mg Capsule 81 mg PO DAILY Relistor 150 mg tablet 450 mg PO DAILY Qty: 90 12RF Rx Instructions: Please take 3 tablets p.o. daily furosemide 40 mg tablet 40 mg PO BID atorvastatin 40 mg tablet 40 mg PO HS tramadol 50 mg tablet 50 mg PO DAILY spironolactone 25 mg tablet 25 mg PO DAILY carvedilol 3.125 mg tablet 3.125 mg PO DAILY famotidine 20 mg tablet 20 mg PO DAILY lorazepam 0.5 mg tablet 0.5 mg PO DAILY hydroxyzine HCl 25 mg tablet 25 mg PO DAILY gabapentin 100 mg capsule 100 mg PO DAILY topiramate 100 mg tablet 100 mg PO DAILY duloxetine 60 mg capsule,delayed release(DR/EC) 60 mg PO DAILY cholecalciferol (vitamin D3) 50 mcg (2,000 unit) capsule 50 mcg PO DAILY Trelegy Ellipta 100-62.5-25 mcg blister with device 1 inh INHALATION DAILY nitrofurantoin monohyd/m-cryst [Macrobid] 100 mg capsule 100 mg PO BID 5 Days Qty: 10 0RF Rx Instructions: must administer with a meal/food nitrofurantoin macrocrystal 100 mg capsule 100 mg PO BID 5 Days Qty: 10 0RF Rx Instructions: must administer with a meal/food Referrals Follow up/Referrals: Colten Millan MD [Staff Physician] - See instructions Manas Jenkins MD [Primary Care Provider] - See instructions Activity Restrictions/Add. Instructions Additional Instructions/Restrictions: You were evaluated in the emergency department today. Your prior urine cultures have all been negative. It is not clear if you are having recurrent urinary tract infections or if you have something else going on causing your symptoms. I think that you are being told you have a UTI because you are taking Azo before you come into the emergency department, and it makes your urine looked infected even though it may not be. The next time you experience the symptoms, I recommend trying to wait to see if you can get a urine specimen and culture sent prior to taking Azo. We are sending a culture again this time, and since you are electing to go ahead and start antibiotics just to be on the safe side, I would recommend stopping it if these cultures come back negative. I recommend very close follow-up with your primary care provider as well as with urology, as the ER is not a substitute for primary care. Return to the emergency department for new or worsening symptoms. Clinical Impressions Clinical Impression: Urinary frequency, Atrophy of vagina Instructions Patient Instructions: DI for Urinary Tract Infection (UTI) Print Language Print Language: Mongolian Discharge ED Provider: Maribell Leggett General Adult HPI General Chief complaint: Urogenital-Female Stated complaint: lower back pain, abd pain painful urination Time Seen by Provider: 02/14/25 09:03 Mode of Arrival: Wheelchair Source of Information: Patient Description of Symptoms (Recalled from ER Triage Doc. by RN): Patient reports possible UTI. States she has lower back pain, stomach pain, difficulty urinating and burning with urination for a couple of days. History of Present Illness HPI narrative: This patient is a 64-year-old female with a history of obesity, APARNA, COPD, hypertension, hyperlipidemia, CAD, chronic back pain, and recurrent urinary tract infections/UTI symptoms coming to the emergency department with concern for UTI. Patient states that for the last couple days, she has had low back pain, nausea, difficulty urinating, and some pain down in her vagina near where you would pee but not right at where you would pee. She denies any fever, dysuria, urinary frequency, but she does note hesitancy with urination. She states she has urology follow-up scheduled for 02/21/2025. Of note, I reviewed patient's medical records and noted that she has been seen in the ED on an almost monthly basis for UTI symptoms, and multiple urinary cultures have been negative for bacteria. She also has had mixed chantel found, but it does not clear she is recently had a true UTI based on urine culture. She is been treated with multiple rounds of oral antibiotics. Related Data Home Medications ?Medication ?Instructions ?Recorded ?Confirmed atorvastatin 40 mg tablet 40 mg PO HS 11/22/24 01/27/25 carvedilol 3.125 mg tablet 3.125 mg PO DAILY 11/22/24 01/27/25 cholecalciferol (vitamin D3) 50 50 mcg PO DAILY 11/22/24 01/27/25 mcg (2,000 unit) capsule duloxetine 60 mg capsule,delayed 60 mg PO DAILY 11/22/24 01/27/25 release famotidine 20 mg tablet 20 mg PO DAILY 11/22/24 01/27/25 fluticasone fur. 100 mcg-umeclid 1 inh inhalation DAILY 11/22/24 01/27/25 62.5 mcg-vilant 25 mcg inhalat.powder (Trelegy Ellipta) furosemide 40 mg tablet 40 mg PO BID 11/22/24 01/27/25 gabapentin 100 mg capsule 100 mg PO DAILY 11/22/24 01/27/25 hydroxyzine HCl 25 mg tablet 25 mg PO DAILY 11/22/24 01/27/25 lorazepam 0.5 mg tablet 0.5 mg PO DAILY 11/22/24 01/27/25 spironolactone 25 mg tablet 25 mg PO DAILY 11/22/24 01/27/25 topiramate 100 mg tablet 100 mg PO DAILY 11/22/24 01/27/25 tramadol 50 mg tablet 50 mg PO DAILY 11/22/24 01/27/25 aspirin 81 mg capsule 81 mg PO DAILY 12/29/24 01/27/25 Previous Rx's ?Medication ?Instructions ?Recorded sacubitril 24 mg-valsartan 26 mg See Rx Instructions .Route 01/23/25 tablet (Entresto) .COMPLEX #90 tabs methylnaltrexone 150 mg tablet 450 mg (3 x 150 mg) PO DAILY #90 12/29/24 (Relistor) tabs nitrofurantoin 100 mg PO BID uti 5 days #10 caps 01/02/25 monohydrate/macrocrystals 100 mg capsule (Macrobid) linaclotide 290 mcg capsule 290 mcg PO DAILY #30 caps 01/06/25 (Linzess) albuterol sulfate 90 mcg/actuation 2 inh inhalation Q6H PRN shortness 01/19/25 aerosol inhaler (Ventolin HFA) of breath or wheezing 90 days #18 grams fluticasone fur. 100 mcg-umeclid 1 inh inhalation DAILY 90 days #90 01/19/25 62.5 mcg-vilant 25 mcg ea inhalat.powder (Trelegy Ellipta) nitrofurantoin macrocrystal 100 mg 100 mg PO BID 5 days #10 caps 01/22/25 capsule mirtazapine 15 mg tablet 15 mg PO DAILY #30 tabs 01/25/25 quetiapine 50 mg tablet 50 mg PO DAILY #30 tabs 01/25/25 celecoxib 100 mg capsule (Celebrex) 100 mg PO BID #60 caps 01/31/25 levofloxacin 750 mg tablet 750 mg PO DAILY 7 days #7 tabs 02/14/25 ondansetron 4 mg disintegrating 4 mg PO Q8H PRN nausea and 02/14/25 tablet vomiting 4 days #12 tabs Allergies Allergy/AdvReac Type Severity Reaction Status Date / Time sumatriptan Allergy Severe Difficulty Verified 01/03/25 09:57 Breathing fexofenadine (FEXOFENADINE) Allergy Intermediate SICK Verified 01/03/25 09:57 amoxicillin (From AUGMENTIN) Allergy Unknown SOA Verified 01/03/25 09:57 clavulanic acid (From Allergy Unknown SOA Verified 01/03/25 09:57 AUGMENTIN) naproxen (NAPROXEN) Allergy Unknown SWELLING Verified 01/03/25 09:57 acetaminophen (From Tylenol) AdvReac Other Verified 01/03/25 09:57 [facility] Disclaimer: The information contained in this section may have been updated after the patient was seen, as this information can be updated by other users. Medical History Anxiety and depression Arthritis Urinary tract infection History of COVID-19 Migraine History of stroke History of gastroesophageal reflux (GERD) History of anemia Insomnia COPD mixed type Oral dyskinesia Lung nodule Dyspnea on exertion Encounter for screening for malignant neoplasm of lung History of asthma Stopped smoking with greater than 30 pack year history Edema of both lower extremities Takotsubo cardiomyopathy Mediastinal lymphadenopathy Hilar lymphadenopathy Asthma exacerbation APARNA (obstructive sleep apnea) Brain TIA Asthma Hyperglycemia Tremor APARNA (obstructive sleep apnea) Osteoarthritis Hypertensive disorder Hyperlipidemia Gastroesophageal reflux disease Surgical History H/O elbow surgery History of carpal tunnel surgery of right wrist History of carpal tunnel surgery of left wrist H/O: History of arthroplasty of left shoulder H/O: hysterectomy History of cholecystectomy Family History Other Cancer 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 Smoking Status: Never smoker second hand exposure: Yes alcohol intake: former substance use type: denies use current occupational status: disabled Travel in the last 8 weeks: None household members: spouse housing: other marital status: current occupational exposures/hazards: No caffeine: Yes Have you lived/traveled outside [place] in past 30 days?: No Contact w/someone who lives/traveled outside [place] past 30 days?: No Exposure to someone with infectious disease in past 14 days?: No Do you have a fever (greater than 100.4 F or 38 C)?: No Have you tested positive for COVID-19: No Exposed to someone with COVID-19 in past 14 days?: No Do you have a sore throat?: No Do you have a cough?: No Do you have any weakness?: No Do you have any diarrhea?: No Are you experiencing any unusual bleeding?: No Do you have any muscle aches/pain?: No Do you have any abdominal pain?: No Are you experiencing loss of taste or smell?: No Other Medical History Have you received the Flu Vaccine for this season: No Have you received the Pneumonia Vaccine: Yes ROS Obtained: Yes All systems reviewed & no additional complaints except as documented Physical Exam General General appearance: alert, in no apparent distress and obese Head Head exam: atraumatic and normocephalic Eye Eye exam: Present normal appearance, PERRL and EOMI ENT ENT exam: Present normal exam, normal oropharynx, mucous membranes moist and normal external ear exam Neck Neck exam: Present normal inspection, full ROM and trachea midline; Absent tenderness Chest Chest inspection: Present normal inspection and symmetric chest wall rise; Absent tenderness Respiratory Respiratory exam: Present normal lung sounds bilaterally; Absent respiratory distress, wheezes, stridor or accessory muscle use Cardiovascular Cardiovascular exam: Present regular rate and normal rhythm Abdominal Exam Abdominal exam: Present soft; Absent distention, tenderness or guarding External exam: Present other (vaginal atrophy without discharge, rashes, lesions) Extremities Exam Extremities exam: Present normal inspection, full ROM and normal capillary refill; Absent tenderness or edema Back Exam Back exam: Present normal inspection and full ROM; Absent tenderness Neurological Exam Neurological exam: Present alert, oriented X3, CN II-XII intact and normal gait; Absent motor sensory deficit Psychiatric Psychiatric exam: Present normal affect and normal mood Skin Skin exam: Present warm and dry Medical Decision Making Medical Records Medical records reviewed: Yes I reviewed the patient's medical records. Screening: Per USPSTF and CDC recommendations, given the prevalence of disease in our region, it is our hospital?s policy to screen for HIV and viral Hepatitis for all patients aged 18 and over and those with ongoing risk factors. [place] Inquiry Pt receiving controlled substance: No Vital Signs: 02/14/25 09:10 02/14/25 09:39 02/14/25 10:03 Temperature 98.0 F Temperature Source Oral Pulse Rate 94 H 71 Pulse Rate [Radial] 72 Respiratory Rate 16 Blood Pressure 126/55 L 101/65 L Blood Pressure [Right Arm] 119/55 L Blood Pressure Mean Blood Pressure Mean [Right Arm] 76 Blood Pressure Source Blood Pressure Source [Right Arm] Automatic Cuff Blood Pressure Position Blood Pressure Position [Right Arm] Sitting 02 Sat by Pulse Oximetry 91 L 91 L 92 L Oxygen Delivery Method Room Air Room Air 02/14/25 10:15 02/14/25 11:01 02/14/25 11:19 Temperature Temperature Source Pulse Rate 76 76 71 Pulse Rate [Radial] Respiratory Rate Blood Pressure 101/65 L 76/45 L 97/47 L Blood Pressure [Right Arm] Blood Pressure Mean 55 Blood Pressure Mean [Right Arm] Blood Pressure Source Blood Pressure Source [Right Arm] Blood Pressure Position Blood Pressure Position [Right Arm] 02 Sat by Pulse Oximetry 88 L 91 L 90 L Oxygen Delivery Method Room Air 02/14/25 11:59 Temperature 98.0 F Temperature Source Oral Pulse Rate 78 Pulse Rate [Radial] Respiratory Rate 16 Blood Pressure 94/57 L Blood Pressure [Right Arm] Blood Pressure Mean Blood Pressure Mean [Right Arm] Blood Pressure Source Automatic Cuff Blood Pressure Source [Right Arm] Blood Pressure Position Sitting Blood Pressure Position [Right Arm] 02 Sat by Pulse Oximetry Oxygen Delivery Method Room Air Lab Data Lab results reviewed: Yes I reviewed the patient's lab results. Lab Results 02/14/25 09:04: Urine Color Yellow, Urine Appearance Clear, Urine pH 6.0, Ur Specific [place] 1.010, Urine Protein Negative, Urine Glucose (UA) Negative, Urine Ketones Negative, Urine Blood Negative, Urine Nitrate Positive A, Urine Bilirubin Negative, Urine Urobilinogen 0.2, Ur Leukocyte Esterase Trace, Urine RBC None, Urine WBC Occasional, Ur Squamous Epith Cells None, Urine Bacteria Trace 02/14/25 09:26: WBC 13.8 H, RBC 4.08 L, Hgb 12.1 L, Hct 39.0, MCV 95.6, MCH 29.7, MCHC 31.0 L, RDW 17.2, Plt Count 353, MPV 10.7 H, Neut % (Auto) 72.2, Lymph % (Auto) 16.0, [place] % (Auto) 6.4, Eos % (Auto) 1.6, Baso % (Auto) 0.8, Neut # (Auto) 10.0 H, Lymph # (Auto) 2.2, [place] # (Auto) 0.9, Eos # (Auto) 0.2, Baso # (Auto) 0.1, Sodium 142, Potassium 3.9, Chloride 105, Carbon Dioxide 30, Anion Gap 10.9, BUN 15, Creatinine 0.90, Estimated Creat Clear 50, Estimated GFR 63, Est GFR ( Amer) 76, Glucose 112 H, Calcium 9.6, Total Bilirubin 0.4, AST 28, ALT 38, Alkaline Phosphatase 117, Total Protein 7.3, Albumin 4.2, Globulin 3.1, Albumin/Globulin Ratio 1.4, Lipase 48 02/14/25 09:30: Urine Color Yellow, Urine Appearance Clear, Urine pH 6.5, Ur Specific [place] 1.015, Urine Protein Negative, Urine Glucose (UA) Negative, Urine Ketones Negative, Urine Blood Trace-i, Urine Nitrate Positive A, Urine Bilirubin Negative, Urine Urobilinogen 0.2, Ur Leukocyte Esterase Small, Urine RBC 3-5, Urine WBC 5-10, Ur Squamous Epith Cells Occasional, Urine Bacteria 1+ 02/14/25 09:26 02/14/25 09:26 Orders (Tests/Meds): ED MEDICATIONS Discontinued Medications Generic Name Dose Route Start Last Admin Trade Name Pieter PRN Reason Stop Dose Admin Levofloxacin 750 mg 02/14/25 11:41 02/14/25 11:50 Levofloxacin 750 Mg Tablet PO 02/14/25 11:42 750 mg ONCE ONE Administration Ondansetron HCl 4 mg 02/14/25 09:38 02/14/25 09:57 Ondansetron 4mg/2ml Vial IV 02/14/25 09:39 4 mg ONCE ONE Administration ORDERS Category Date Time Status CT abdomen pelvis wo con Stat Cat Scan 02/14/25 09:10 Completed Complete Blood Count Auto Diff Stat Lab 02/14/25 09:26 Completed Comprehensive Metabolic Panel Stat Lab 02/14/25 09:26 Completed Lipase Stat Lab 02/14/25 09:26 Completed UA [Urinalysis and Microscopic] Stat Lab 02/14/25 09:04 Completed UA [Urinalysis and Microscopic] Stat Lab 02/14/25 09:30 Completed Urine Culture Stat Micro 02/14/25 09:04 Received Urine Culture Stat Micro 02/14/25 09:30 Received Medical Decision Narrative: In summary, this patient is a 64-year-old female presenting to the Emergency Department for evaluation of back pain, abdominal pain, nausea, and urinary hesitancy. Differential diagnoses considered include but are not limited to cystitis, interstitial cystitis, pyelonephritis, colitis, diverticulitis, constipation. Ruling out the most morbid conditions drove assessment. It should be noted patient's history includes chronic constipation, recurrent UTIs, APARNA, hypertension, hyperlipidemia, obesity, CAD which likely are not at goal therapy. This complicates all aspects of care by increasing patient's risk for morbidity. I reviewed patient's past medical records and noted multiple previous evaluations on an almost monthly basis for UTI with multiple antibiotic prescriptions. Urine cultures were negative each time as of late as detailed in HPI. On exam, the patient is sitting upright in no acute distress. She has some abdominal tenderness this nonlocalized. She is afebrile and nontoxic-appearing. Vaginal exam demonstrates some mild atrophy without obvious acute other issue such as discharge or lesions. Workup included CBC, CMP, lipase, cath urine specimen, cath urine culture, and CT abdomen pelvis with IV contrast. I independently interpreted CT scan prior to the radiologist read and noted no obstructive uropathy, no obvious bladder inflammation. Please see their read for final interpretation. Labs were obtained that demonstrated mild leukocytosis, which is nonspecific. Chemistry is reassuring with normal kidney function, no significant electrolyte derangements. Urinalysis is positive for nitrates, patient reported to me that she has been taking Azo for urinary symptoms. This renders her UA essentially useless. Urine culture was sent and is pending. On reassessment, patient is resting comfortably in no acute distress. CT scan not concerning for any acute pathology, lab work is overall very reassuring with the exception that her urine is contaminated by taking Azo and she has leukocytosis. Difficult to ascertain whether or not she has UTI. I had shared decision-making with her and recommended avoiding treatment with antibiotic until she got the urine culture back showing that she actually has an infection since she has been treated with negative cultures multiple times recently. She is not agreeable with this and is worried about infection, requesting an antibiotic because that it has been given to her in the past. She does have urology follow-up arranged 02/21/2025. I agreed to prescribe her Levaquin to treat UTI, and I gave her instructions to stop taking the antibiotic if her culture comes back negative. She was given strict return precautions and was discharged with plan for very close follow-up Critical Care Critical Care Time Critical Care Time: No
[2025-02-14 09:36] LABS: Bacteria,Urine Trace /lpf; WBC,Urine Occasional #/hpf (0-3)
[2025-02-14 09:43] LABS: Basophils # 0.1 K/mm3 (0-0.2); Basophils % 0.8 % (0.1-2.0); Eosinophils # 0.2 K/mm3 (0.0-0.4); Eosinophils % 1.6 % (0.1-12.0); Hemoglobin 12.1 g/dL (12.2-16.2); Lymphocytes # 2.2 K/mm3 (0.7-4.5); Mean Corpuscular Hemoglobin 29.7 pg (27.0-31.2); Mean Corpuscular Volume 95.6 fl (81-99); Mean Platelet Volume 10.7 fl (7.4-10.4); Monocytes # 0.9 K/mm3 (0.1-1.0); Monocytes % 6.4 % (1.7-9.3); Neutrophils % 72.2 % (37.0-80.0); Platelet Count 353 K/mm3 (142-424); Red Blood Count 4.08 M/mm3 (4.20-5.40); Red Cell Distribution Width 17.2 % (11.5-17.5); White Blood Count 13.8 K/mm3 (4.8-10.8)
[2025-02-14 09:46] LABS: Microscopic, Urine URINE MICROSCOPIC (MICROSCOPIC)
[2025-02-14 09:50] LABS: Appearance,Urine CLEAR (Clear); Bilirubin,Urine Negative (Negative); Blood, Urine TRACE-I (Negative); Color,Urine YELLOW (Yellow); Glucose,Urine (UA) Negative (Negative); Ketones,Urine Negative (Negative); Leukocyte Esterase,Urine SMALL (Negative); Nitrate,Urine POSITIVE (Negative); PH,Urine 6.5 (5.0-8.5); Protein,Urine Negative (Negative); Specific Gravity, Urine 1.015 (1.005-1.030); Urobilinogen,Urine 0.2 EU/dl (0.2)
[2025-02-14 09:55] LABS: Alanine Aminotransferase 38 U/L (12-78); Albumin Level 4.2 g/dl (3.5-5.0); Albumin/Globulin Ratio 1.4 (1.1-1.8); Alkaline Phosphatase 117 U/L (38-126); Anion Gap 10.9 mEq/L (5-15); Aspartate Amino Transferase 28 U/L (14-36); Bilirubin,Total 0.4 mg/dl (0.2-1.3); Blood Urea Nitrogen 15 mg/dl (7-17); Calcium 9.6 mg/dl (8.4-10.2); Carbon Dioxide 30 mmol/L (22.0-30.0); Chloride 105 mmol/L (98-107); Creatinine Clearance Estimated 50 mL/min (50-200); Estimated Glomerular Filt Rate 63 ml/min (>60); GFR (African American) 76 ML/MIN (>60); Globulin 3.1 g/dL (1.3-3.2); Glucose 112 mg/dl (74-100); Lipase 48 U/L (23-300); Potassium 3.9 mmoL/L (3.5-5.1); Sodium 142 mmol/L (136-145); Total Protein,Serum 7.3 g/dl (6.3-8.2)
[2025-02-14] MEDS: ONDANSETRON 4MG/2ML VIAL 4 MG IV (09:57)
[2025-02-14 10:23] LABS: Bacteria,Urine 1+ /lpf; Squamous Epithelial Cell,Urine Occasional #/hpf (0-5)
[2025-02-14] MEDS: levoFLOXacin 750 MG TABLET PO (11:50)
== END 2025-02-14 12:00 | disposition home or self-care (01) ==
PROVIDERS: Emergency Provider Emergency Medicine; PCP Family Medicine
DX: N95.2 Postmenopausal atrophic vaginitis (principal); R35.0 Frequency of micturition; M54.50 Low back pain, unspecified; R30.9 Painful micturition, unspecified; R33.8 Other retention of urine; R11.0 Nausea; R10.2 Pelvic and perineal pain; E66.01 Morbid (severe) obesity due to excess calories; G47.33 Obstructive sleep apnea (adult) (pediatric); J44.9 Chronic obstructive pulmonary disease, unspecified; I10 Essential (primary) hypertension; E78.5 Hyperlipidemia, unspecified; I25.10 Atherosclerotic heart disease of native coronary artery without angina pectoris; Z68.36 Body mass index [BMI] 36.0-36.9, adult; Z87.440 Personal history of urinary (tract) infections
CPT/HCPCS: 74176; 80053; 81001; 83690; 85025; 87086; 96374; 99284; J2405

== ENCOUNTER 2025-03-05 13:53 | Emergency (ER) | payer MEDICARE, OTHER, SELFPAY ==
[2025-03-05 14:07] VITALS: BP 105/62; PULSE 74; RESP 16; TEMP 36.6; O2SAT 97; BMI 41.5
--- NOTE | 2025-03-05 14:09 | ED_ITS ---
<Statement entered by Maribell Leggett DO - 03/05/25 14:41> I was consulted by the DION, and we discussed the complexity of the problems being addressed. I approved the treatment and management plan for this patient's care in the emergency department, thus performing a substantive portion of the medical decision making. Maribell Leggett DO Discharge Plan Disposition Patient Disposition: Home, Self-Care Condition: Good Prescriptions Prescriptions: New aolqnulq-novonwazv-QJ 3.5-10,000-1 mg/mL-unit/mL-% drops,suspension 4 drp otic (ear) TID 10 Days Qty: 10 0RF No Action sacubitril-valsartan [Entresto] 24-26 mg tablet See Rx Instructions .ROUTE .COMPLEX Qty: 90 1RF Dose Instruction: TAKE 1 TABLET BY MOUTH TWICE DAILY Rx Instructions: TAKE 1 TABLET BY MOUTH TWICE DAILY Linzess 290 mcg capsule 290 mcg PO DAILY Qty: 30 12RF Rx Instructions: Please take 1 capsule p.o. daily Trelegy Ellipta 100-62.5-25 mcg blister with device 1 inh inhalation DAILY 90 Days Qty: 90 3RF albuterol sulfate [Ventolin HFA] 90 mcg/actuation HFA aerosol inhaler 2 inh inhalation Q6H PRN (Reason: shortness of breath or wheezing) 90 Days Qty: 18 3RF celecoxib [Celebrex] 100 mg capsule 100 mg PO BID Qty: 60 2RF quetiapine 50 mg tablet See Rx Instructions .ROUTE .COMPLEX Qty: 30 0RF Dose Instruction: TAKE 1 TABLET BY MOUTH ONCE DAILY Rx Instructions: TAKE 1 TABLET BY MOUTH ONCE DAILY mirtazapine 15 mg tablet See Rx Instructions .ROUTE .COMPLEX Qty: 30 0RF Dose Instruction: TAKE 1 TABLET BY MOUTH ONCE DAILY Rx Instructions: TAKE 1 TABLET BY MOUTH ONCE DAILY spironolactone 25 mg tablet See Rx Instructions .ROUTE .COMPLEX Qty: 90 3RF Dose Instruction: TAKE 1 TABLET BY MOUTH TWICE DAILY Rx Instructions: TAKE 1 TABLET BY MOUTH TWICE DAILY aspirin 81 mg Capsule 81 mg PO DAILY Relistor 150 mg tablet 450 mg PO DAILY Qty: 90 12RF Rx Instructions: Please take 3 tablets p.o. daily furosemide 40 mg tablet 40 mg PO BID atorvastatin 40 mg tablet 40 mg PO HS tramadol 50 mg tablet 50 mg PO DAILY carvedilol 3.125 mg tablet 3.125 mg PO DAILY famotidine 20 mg tablet 20 mg PO DAILY lorazepam 0.5 mg tablet 0.5 mg PO DAILY hydroxyzine HCl 25 mg tablet 25 mg PO DAILY gabapentin 100 mg capsule 100 mg PO DAILY topiramate 100 mg tablet 100 mg PO DAILY duloxetine 60 mg capsule,delayed release(DR/EC) 60 mg PO DAILY cholecalciferol (vitamin D3) 50 mcg (2,000 unit) capsule 50 mcg PO DAILY Trelegy Ellipta 100-62.5-25 mcg blister with device 1 inh INHALATION DAILY nitrofurantoin monohyd/m-cryst [Macrobid] 100 mg capsule 100 mg PO BID 5 Days Qty: 10 0RF Rx Instructions: must administer with a meal/food nitrofurantoin macrocrystal 100 mg capsule 100 mg PO BID 5 Days Qty: 10 0RF Rx Instructions: must administer with a meal/food levofloxacin 750 mg tablet 750 mg PO DAILY 7 Days Qty: 7 0RF ondansetron 4 mg tablet,disintegrating 4 mg PO Q8H PRN (Reason: nausea and vomiting) 4 Days Qty: 12 0RF Referrals Follow up/Referrals: Manas Jenkins MD [Primary Care Provider] - See instructions Activity Restrictions/Add. Instructions Additional Instructions/Restrictions: Start antibiotic drops as soon as possible and be sure to take as ordered for full length of time even though he should start feeling better in 24-48 hours. Tylenol or Motrin as needed for pain or fever Encourage fluids, water, Gatorade, Powerade, Pedialyte if /toddler/child Warm compresses often helps when placed over ear Return immediately for new or worsening symptoms no noticeable improvement in 48-72 hours and in 10-14 days to ensure the ears are return to baseline. Follow-up with primary care Clinical Impressions Clinical Impression: Otitis externa Qualifiers: Otitis externa type: unspecified type Chronicity: acute Laterality: bilateral Qualified Code(s): H60.503 - Unspecified acute noninfective otitis externa, bilateral Instructions Patient Instructions: DI for Otitis Externa Print Language Print Language: Maltese Discharge ED Provider: Maribell Leggett General Adult HPI General Chief complaint: Ear Stated complaint: Ear pain/Both Ears CI Time Seen by Provider: 03/05/25 13:56 Mode of Arrival: Wheelchair Source of Information: Patient Limitations: No Limitations History of Present Illness HPI narrative: 64-year-old female presents for bilateral ear pain. Patient states pain is movement of the ear. Related Data Home Medications ?Medication ?Instructions ?Recorded ?Confirmed atorvastatin 40 mg tablet 40 mg PO HS 11/22/24 01/27/25 carvedilol 3.125 mg tablet 3.125 mg PO DAILY 11/22/24 01/27/25 cholecalciferol (vitamin D3) 50 50 mcg PO DAILY 11/22/24 01/27/25 mcg (2,000 unit) capsule duloxetine 60 mg capsule,delayed 60 mg PO DAILY 11/22/24 01/27/25 release famotidine 20 mg tablet 20 mg PO DAILY 11/22/24 01/27/25 fluticasone fur. 100 mcg-umeclid 1 inh inhalation DAILY 11/22/24 01/27/25 62.5 mcg-vilant 25 mcg inhalat.powder (Trelegy Ellipta) furosemide 40 mg tablet 40 mg PO BID 11/22/24 01/27/25 gabapentin 100 mg capsule 100 mg PO DAILY 11/22/24 01/27/25 hydroxyzine HCl 25 mg tablet 25 mg PO DAILY 11/22/24 01/27/25 lorazepam 0.5 mg tablet 0.5 mg PO DAILY 11/22/24 01/27/25 topiramate 100 mg tablet 100 mg PO DAILY 11/22/24 01/27/25 tramadol 50 mg tablet 50 mg PO DAILY 11/22/24 01/27/25 aspirin 81 mg capsule 81 mg PO DAILY 12/29/24 01/27/25 Previous Rx's ?Medication ?Instructions ?Recorded sacubitril 24 mg-valsartan 26 mg See Rx Instructions .Route 12/16/24 tablet (Entresto) .COMPLEX #90 tabs methylnaltrexone 150 mg tablet 450 mg (3 x 150 mg) PO DAILY #90 12/29/24 (Relistor) tabs nitrofurantoin 100 mg PO BID uti 5 days #10 caps 01/02/25 monohydrate/macrocrystals 100 mg capsule (Macrobid) linaclotide 290 mcg capsule 290 mcg PO DAILY #30 caps 01/06/25 (Linzess) albuterol sulfate 90 mcg/actuation 2 inh inhalation Q6H PRN shortness 01/19/25 aerosol inhaler (Ventolin HFA) of breath or wheezing 90 days #18 grams fluticasone fur. 100 mcg-umeclid 1 inh inhalation DAILY 90 days #90 01/19/25 62.5 mcg-vilant 25 mcg ea inhalat.powder (Trelegy Ellipta) nitrofurantoin macrocrystal 100 mg 100 mg PO BID 5 days #10 caps 01/22/25 capsule celecoxib 100 mg capsule (Celebrex) 100 mg PO BID #60 caps 01/31/25 levofloxacin 750 mg tablet 750 mg PO DAILY 7 days #7 tabs 02/14/25 ondansetron 4 mg disintegrating 4 mg PO Q8H PRN nausea and 02/14/25 tablet vomiting 4 days #12 tabs mirtazapine 15 mg tablet See Rx Instructions .Route 02/24/25 .COMPLEX #30 tabs quetiapine 50 mg tablet See Rx Instructions .Route 02/24/25 .COMPLEX #30 tabs spironolactone 25 mg tablet See Rx Instructions .Route 03/03/25 .COMPLEX #90 tabs yknaacgc-bsrjdhqfk-mrfcayxlc 3.5 4 drp otic (ear) TID 10 days #10 mL 03/05/25 mg-10,000 unit/mL-1 % ear drops,susp Allergies Allergy/AdvReac Type Severity Reaction Status Date / Time sumatriptan Allergy Severe Difficulty Verified 01/03/25 09:57 Breathing fexofenadine (FEXOFENADINE) Allergy Intermediate SICK Verified 01/03/25 09:57 amoxicillin (From AUGMENTIN) Allergy Unknown SOA Verified 01/03/25 09:57 clavulanic acid (From Allergy Unknown SOA Verified 01/03/25 09:57 AUGMENTIN) naproxen (NAPROXEN) Allergy Unknown SWELLING Verified 01/03/25 09:57 acetaminophen (From Tylenol) AdvReac Other Verified 01/03/25 09:57 [facility] Disclaimer: The information contained in this section may have been updated after the patient was seen, as this information can be updated by other users. Medical History , [employer]) Anxiety and depression Arthritis Urinary tract infection History of COVID-19 Migraine History of stroke History of gastroesophageal reflux (GERD) History of anemia Insomnia COPD mixed type Oral dyskinesia Lung nodule Dyspnea on exertion Encounter for screening for malignant neoplasm of lung History of asthma Stopped smoking with greater than 30 pack year history Edema of both lower extremities Takotsubo cardiomyopathy Mediastinal lymphadenopathy Hilar lymphadenopathy Asthma exacerbation APARNA (obstructive sleep apnea) Brain TIA Asthma Hyperglycemia Tremor APARNA (obstructive sleep apnea) Osteoarthritis Hypertensive disorder Hyperlipidemia Gastroesophageal reflux disease Surgical History , [employer]) H/O elbow surgery History of carpal tunnel surgery of right wrist History of carpal tunnel surgery of left wrist H/O: History of arthroplasty of left shoulder H/O: hysterectomy History of cholecystectomy Family History , [employer]) Cancer 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 , [employer]) Smoking Status: Never smoker second hand exposure: Yes alcohol intake: former substance use type: denies use current occupational status: disabled Travel in the last 8 weeks: None household members: spouse housing: other marital status: current occupational exposures/hazards: No caffeine: Yes Have you lived/traveled outside [place] in past 30 days?: No Contact w/someone who lives/traveled outside [place] past 30 days?: No Exposure to someone with infectious disease in past 14 days?: No Do you have a fever (greater than 100.4 F or 38 C)?: No Have you tested positive for COVID-19: No Exposed to someone with COVID-19 in past 14 days?: No Do you have a sore throat?: No Do you have a cough?: No Do you have any weakness?: No Do you have any diarrhea?: No Are you experiencing any unusual bleeding?: No Do you have any muscle aches/pain?: No Do you have any abdominal pain?: No Are you experiencing loss of taste or smell?: No Other Medical History Have you received the Flu Vaccine for this season: No Have you received the Pneumonia Vaccine: Yes ROS Obtained: Yes Systems reviewed as appropriate & no additional complaints except as documented ENT Ears, Nose, Mouth, and Throat: Reports system reviewed and no additional complaints, except as documented, Reports as per HPI and Reports otalgia Physical Exam General General appearance: alert and in no apparent distress Eye Eye exam: Present normal appearance ENT ENT exam: Present normal oropharynx and mucous membranes moist Expanded ENT Exam TM/Canal exam: Bilateral TM: canal tenderness (redness) Respiratory Respiratory exam: Present normal lung sounds bilaterally Cardiovascular Cardiovascular exam: Present regular rate and normal rhythm Neurological Exam Neurological exam: Present alert and oriented X3 Skin Skin exam: Present warm and intact Medical Decision Making Medical Records Medical records reviewed: Yes I reviewed the patient's medical records. Screening: Per USPSTF and CDC recommendations, given the prevalence of disease in our region, it is our hospital?s policy to screen for HIV and viral Hepatitis for all patients aged 18 and over and those with ongoing risk factors. Adonay Inquiry Pt receiving controlled substance: No Adonay was queried for this patient: No Medical Decision Narrative: In summary patient is a 64-year-old female who presents to the emergency department for evaluation of bilateral ear pain. Patient is hemodynamically stable upon arrival, afebrile. Canals red and tenderness with movement of the pinna. Differential diagnosis includes otitis externa. Upon repeat evaluation patient sitting comfortably in wheelchair. Patient asked for Motrin Motrin 400 mg given. Given this we will discharge home at this time with prescription for eardrops and follow-up with PCP Critical Care Critical Care Time Critical Care Time: No
[2025-03-05 14:19] VITALS: BP 105/62; PULSE 74; RESP 16; TEMP 36.6; O2SAT 97
[2025-03-05] MEDS: IBUPROFEN 400 MG TABLET PO (14:19)
== END 2025-03-05 14:24 | disposition home or self-care (01) ==
PROVIDERS: Emergency Provider Emergency Medicine; PCP Family Medicine
DX: H60.503 Unspecified acute noninfective otitis externa, bilateral (principal)
CPT/HCPCS: 99283

== ENCOUNTER 2025-03-13 11:01 | Emergency (ER) | payer MEDICARE, OTHER, SELFPAY ==
[2025-03-13] VITALS (7 sets, daily range): BP systolic 99–112; BP diastolic 63–72; PULSE 70–84; RESP 20; TEMP 36.8; O2SAT 91–99; BMI 49.9
--- NOTE | 2025-03-13 11:37 | CT_ITS ---
PROCEDURE INFORMATION: Exam: CT Abdomen And Pelvis With Contrast Exam date and time: 03/13/2025 12:13 PM Age: 64 years old Clinical indication: Abdominal pain; Additional info: Lower abdominal pain TECHNIQUE: Imaging protocol: Computed tomography of the abdomen and pelvis with contrast. Radiation optimization: All CT scans at this facility use at least one of these dose optimization techniques: automated exposure control; mA and/or kV adjustment per patient size (includes targeted exams where dose is matched to clinical indication); or iterative reconstruction. Contrast material: ISOVUE; Contrast volume: 75 ml; Contrast route: IV; COMPARISON: CT ABDOMEN PELVIS WO CON 02/14/2025 10:32 AM FINDINGS: Lungs: Consolidation in the left lower lobe may represent atelectasis or pneumonia. . Heart: There is calcification of the aortic valve annulus. There is calcification of the mitral valve annulus. Coronary arteries: Coronary artery calcifications may indicate coronary artery disease. Liver: Normal. No mass. Gallbladder and biliary ducts: Cholecystectomy Pancreas: Normal. No ductal dilation. Spleen: The spleen demonstrates punctate calcifications, consistent with remote granulomatous organism exposure. Adrenal glands: Normal. No mass. Kidneys and ureters: Normal. No hydronephrosis. Stomach and bowel: 3.9 cm collection of air and debris and 3.5 cm collection of air and debris projecting off of the 3rd duodenum. Most likely represents duodenal diverticula., Less likely duodenal ulcers. Diverticulosis of the rectosigmoid. No diverticulitis. Findings consistent with constipation. Appendix: No evidence of appendicitis. Intraperitoneal space: Unremarkable. No free air. No significant fluid collection. Vasculature: Unremarkable. No abdominal aortic aneurysm. Lymph nodes: Unremarkable. No enlarged lymph nodes. Urinary bladder: Unremarkable as visualized. Reproductive: Surgical resection of the uterus Bones/joints: Unremarkable. No acute fracture. Soft tissues: Unremarkable. IMPRESSION: 1. Consolidation in the left lower lobe may represent atelectasis or pneumonia. . 2. 3.9 cm collection of air and debris and 3.5 cm collection of air and debris projecting off of the 3rd duodenum. Most likely represents duodenal diverticula., Less likely duodenal ulcers.
--- NOTE | 2025-03-13 11:40 | [facility].EDGENADL ---
Discharge Plan Disposition Chief Complaint: Abdominal Pain Prescriptions Prescriptions: No Action sacubitril-valsartan [Entresto] 24-26 mg tablet See Rx Instructions .ROUTE .COMPLEX Qty: 90 1RF Dose Instruction: TAKE 1 TABLET BY MOUTH TWICE DAILY Rx Instructions: TAKE 1 TABLET BY MOUTH TWICE DAILY Linzess 290 mcg capsule 290 mcg PO DAILY Qty: 30 12RF Rx Instructions: Please take 1 capsule p.o. daily Trelegy Ellipta 100-62.5-25 mcg blister with device 1 inh inhalation DAILY 90 Days Qty: 90 3RF albuterol sulfate [Ventolin HFA] 90 mcg/actuation HFA aerosol inhaler 2 inh inhalation Q6H PRN (Reason: shortness of breath or wheezing) 90 Days Qty: 18 3RF celecoxib [Celebrex] 100 mg capsule 100 mg PO BID Qty: 60 2RF quetiapine 50 mg tablet See Rx Instructions .ROUTE .COMPLEX Qty: 30 0RF Dose Instruction: TAKE 1 TABLET BY MOUTH ONCE DAILY Rx Instructions: TAKE 1 TABLET BY MOUTH ONCE DAILY mirtazapine 15 mg tablet See Rx Instructions .ROUTE .COMPLEX Qty: 30 0RF Dose Instruction: TAKE 1 TABLET BY MOUTH ONCE DAILY Rx Instructions: TAKE 1 TABLET BY MOUTH ONCE DAILY spironolactone 25 mg tablet See Rx Instructions .ROUTE .COMPLEX Qty: 90 3RF Dose Instruction: TAKE 1 TABLET BY MOUTH TWICE DAILY Rx Instructions: TAKE 1 TABLET BY MOUTH TWICE DAILY aspirin 81 mg Capsule 81 mg PO DAILY Relistor 150 mg tablet 450 mg PO DAILY Qty: 90 12RF Rx Instructions: Please take 3 tablets p.o. daily furosemide 40 mg tablet 40 mg PO BID atorvastatin 40 mg tablet 40 mg PO HS tramadol 50 mg tablet 50 mg PO DAILY carvedilol 3.125 mg tablet 3.125 mg PO DAILY famotidine 20 mg tablet 20 mg PO DAILY lorazepam 0.5 mg tablet 0.5 mg PO DAILY hydroxyzine HCl 25 mg tablet 25 mg PO DAILY gabapentin 100 mg capsule 100 mg PO DAILY topiramate 100 mg tablet 100 mg PO DAILY duloxetine 60 mg capsule,delayed release(DR/EC) 60 mg PO DAILY cholecalciferol (vitamin D3) 50 mcg (2,000 unit) capsule 50 mcg PO DAILY Trelegy Ellipta 100-62.5-25 mcg blister with device 1 inh INHALATION DAILY [id number]-HN 3.5-10,000-1 mg/mL-unit/mL-% drops,suspension 4 drp otic (ear) TID 10 Days Qty: 10 0RF nitrofurantoin monohyd/m-cryst [Macrobid] 100 mg capsule 100 mg PO BID 5 Days Qty: 10 0RF Rx Instructions: must administer with a meal/food nitrofurantoin macrocrystal 100 mg capsule 100 mg PO BID 5 Days Qty: 10 0RF Rx Instructions: must administer with a meal/food levofloxacin 750 mg tablet 750 mg PO DAILY 7 Days Qty: 7 0RF ondansetron 4 mg tablet,disintegrating 4 mg PO Q8H PRN (Reason: nausea and vomiting) 4 Days Qty: 12 0RF Referrals Follow up/Referrals: Manas Jenkins MD [Primary Care Provider] - See instructions Clinical Impressions Clinical Impression: Diarrhea, Abdominal pain, lower Instructions Patient Instructions: DI for Acute Abdominal Pain Print Language Print Language: Japanese Discharge ED Provider: Jaz Meeks General Adult HPI General Chief complaint: Abdominal Pain Stated complaint: bladder/vagina pain overall body ache Time Seen by Provider: 03/13/25 11:29 Mode of Arrival: Wheelchair Source of Information: Patient Description of Symptoms (Recalled from ER Triage Doc. by RN): pt is here for several complaints but mainly bc she has vaginal pain after having diarrhea two days ago she says she insides hurt and then hurt ankles have been swelling. pt is tearful upon anxious triage History of Present Illness HPI narrative: Patient is a 64-year-old female states that she had diarrhea a few days ago and since that time since has been having bowel movement she felt significant discomfort in the lower rectal and vaginal area in her lower abdomen. Denies any vaginal discharge vaginal bleeding fevers chills rectal bleeding etc. She did have a history of having her bladder tack when she had a hysterectomy in the past. Denies any definitive organ prolapse from historical standpoint. Related Data Home Medications ?Medication ?Instructions ?Recorded ?Confirmed atorvastatin 40 mg tablet 40 mg PO HS 11/22/24 01/27/25 carvedilol 3.125 mg tablet 3.125 mg PO DAILY 11/22/24 01/27/25 cholecalciferol (vitamin D3) 50 50 mcg PO DAILY 11/22/24 01/27/25 mcg (2,000 unit) capsule duloxetine 60 mg capsule,delayed 60 mg PO DAILY 11/22/24 01/27/25 release famotidine 20 mg tablet 20 mg PO DAILY 11/22/24 01/27/25 fluticasone fur. 100 mcg-umeclid 1 inh inhalation DAILY 11/22/24 01/27/25 62.5 mcg-vilant 25 mcg inhalat.powder (Trelegy Ellipta) furosemide 40 mg tablet 40 mg PO BID 11/22/24 01/27/25 gabapentin 100 mg capsule 100 mg PO DAILY 11/22/24 01/27/25 hydroxyzine HCl 25 mg tablet 25 mg PO DAILY 11/22/24 01/27/25 lorazepam 0.5 mg tablet 0.5 mg PO DAILY 11/22/24 01/27/25 topiramate 100 mg tablet 100 mg PO DAILY 11/22/24 01/27/25 tramadol 50 mg tablet 50 mg PO DAILY 11/22/24 01/27/25 aspirin 81 mg capsule 81 mg PO DAILY 12/29/24 01/27/25 Previous Rx's ?Medication ?Instructions ?Recorded sacubitril 24 mg-valsartan 26 mg See Rx Instructions .Route 12/16/24 tablet (Entresto) .COMPLEX #90 tabs methylnaltrexone 150 mg tablet 450 mg (3 x 150 mg) PO DAILY #90 12/29/24 (Relistor) tabs nitrofurantoin 100 mg PO BID uti 5 days #10 caps 01/02/25 monohydrate/macrocrystals 100 mg capsule (Macrobid) linaclotide 290 mcg capsule 290 mcg PO DAILY #30 caps 01/06/25 (Linzess) albuterol sulfate 90 mcg/actuation 2 inh inhalation Q6H PRN shortness 01/19/25 aerosol inhaler (Ventolin HFA) of breath or wheezing 90 days #18 grams fluticasone fur. 100 mcg-umeclid 1 inh inhalation DAILY 90 days #90 01/19/25 62.5 mcg-vilant 25 mcg ea inhalat.powder (Trelegy Ellipta) nitrofurantoin macrocrystal 100 mg 100 mg PO BID 5 days #10 caps 01/22/25 capsule celecoxib 100 mg capsule (Celebrex) 100 mg PO BID #60 caps 01/31/25 levofloxacin 750 mg tablet 750 mg PO DAILY 7 days #7 tabs 02/14/25 ondansetron 4 mg disintegrating 4 mg PO Q8H PRN nausea and 02/14/25 tablet vomiting 4 days #12 tabs mirtazapine 15 mg tablet See Rx Instructions .Route 02/24/25 .COMPLEX #30 tabs quetiapine 50 mg tablet See Rx Instructions .Route 02/24/25 .COMPLEX #30 tabs spironolactone 25 mg tablet See Rx Instructions .Route 03/03/25 .COMPLEX #90 tabs dqdddqlw-gjozbnnud-uacyffrcx 3.5 4 drp otic (ear) TID 10 days #10 mL 03/05/25 mg-10,000 unit/mL-1 % ear drops,susp Allergies Allergy/AdvReac Type Severity Reaction Status Date / Time sumatriptan Allergy Severe Difficulty Verified 01/03/25 09:57 Breathing fexofenadine (FEXOFENADINE) Allergy Intermediate SICK Verified 01/03/25 09:57 amoxicillin (From AUGMENTIN) Allergy Unknown SOA Verified 01/03/25 09:57 clavulanic acid (From Allergy Unknown SOA Verified 01/03/25 09:57 AUGMENTIN) naproxen (NAPROXEN) Allergy Unknown SWELLING Verified 01/03/25 09:57 acetaminophen (From Tylenol) AdvReac Other Verified 01/03/25 09:57 [facility] PFS Disclaimer: The information contained in this section may have been updated after the patient was seen, as this information can be updated by other users. Medical History , [employer]) Anxiety and depression Arthritis Urinary tract infection History of COVID-19 Migraine History of stroke History of gastroesophageal reflux (GERD) History of anemia Insomnia COPD mixed type Oral dyskinesia Lung nodule Dyspnea on exertion Encounter for screening for malignant neoplasm of lung History of asthma Stopped smoking with greater than 30 pack year history Edema of both lower extremities Takotsubo cardiomyopathy Mediastinal lymphadenopathy Hilar lymphadenopathy Asthma exacerbation APARNA (obstructive sleep apnea) Brain TIA Asthma Hyperglycemia Tremor APARNA (obstructive sleep apnea) Osteoarthritis Hypertensive disorder Hyperlipidemia Gastroesophageal reflux disease Surgical History , [employer]ER) H/O elbow surgery History of carpal tunnel surgery of right wrist History of carpal tunnel surgery of left wrist H/O: History of arthroplasty of left shoulder H/O: hysterectomy History of cholecystectomy Family History , [employer]ER REPAIRER) Cancer 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 , [employer]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) Smoking Status: Never smoker second hand exposure: Yes alcohol intake: former substance use type: denies use current occupational status: disabled Travel in the last 8 weeks: None household members: spouse housing: other marital status: current occupational exposures/hazards: No caffeine: Yes Have you lived/traveled outside [place] in past 30 days?: No Contact w/someone who lives/traveled outside [place] past 30 days?: No Exposure to someone with infectious disease in past 14 days?: No Do you have a fever (greater than 100.4 F or 38 C)?: No Have you tested positive for COVID-19: No Exposed to someone with COVID-19 in past 14 days?: No Do you have a sore throat?: No Do you have a cough?: No Do you have any weakness?: No Do you have any diarrhea?: No Are you experiencing any unusual bleeding?: No Do you have any muscle aches/pain?: No Do you have any abdominal pain?: No Are you experiencing loss of taste or smell?: No Other Medical History Have you received the Flu Vaccine for this season: No Have you received the Pneumonia Vaccine: Yes ROS Obtained: Yes All systems reviewed & no additional complaints except as documented Physical Exam General General appearance: alert and in no apparent distress Respiratory Respiratory exam: Present normal lung sounds bilaterally Cardiovascular Cardiovascular exam: Present regular rate Abdominal Exam Abdominal exam: Present soft and tenderness (Lower abdominal tenderness rectal exam is normal pelvic exam including speculum exam are normal without any significant areas of inflammation or erythema no organ prolapse noted); Absent distention Neurological Exam Neurological exam: Present alert and oriented X3 Medical Decision Making Medical Records Screening: Per USPSTF and CDC recommendations, given the prevalence of disease in our region, it is our hospital?s policy to screen for HIV and viral Hepatitis for all patients aged 18 and over and those with ongoing risk factors. [place] Inquiry Pt receiving controlled substance: No Vital Signs: 03/13/25 11:20 03/13/25 11:29 03/13/25 11:30 Temperature 98.2 F Temperature Source Oral Pulse Rate 82 79 Pulse Rate [Left Radial] 84 Respiratory Rate 20 Blood Pressure 105/64 L 106/71 L Blood Pressure [Right Arm] 112/72 Blood Pressure Mean [Right Arm] 85 02 Sat by Pulse Oximetry 95 93 L 91 L Oxygen Delivery Method Room Air 03/13/25 12:00 03/13/25 12:31 Temperature Temperature Source Pulse Rate 72 70 Pulse Rate [Left Radial] Respiratory Rate Blood Pressure 99/68 L 102/63 L Blood Pressure [Right Arm] Blood Pressure Mean [Right Arm] 02 Sat by Pulse Oximetry 95 98 Oxygen Delivery Method Lab Data Lab results reviewed: Yes I reviewed the patient's lab results. Lab Results 03/13/25 11:10: Urine Color Yellow, Urine Appearance Clear, Urine pH 6.0, Ur Specific [place] 1.015, Urine Protein Negative, Urine Glucose (UA) Negative, Urine Ketones Negative, Urine Blood Negative, Urine Nitrate Negative, Urine Bilirubin Negative, Urine Urobilinogen 0.2, Ur Leukocyte Esterase Negative, Urine RBC None, Urine WBC 3-5, Ur Squamous Epith Cells Occasional, Urine Bacteria None 03/13/25 11:33: WBC 12.4 H, RBC 3.82 L, Hgb 11.6 L, Hct 36.0 L, MCV 94.2, MCH 30.4, MCHC 32.2, RDW 16.9, Plt Count 381, MPV 10.7 H, Neut % (Auto) 72.6, Lymph % (Auto) 14.3, [place] % (Auto) 8.3, Eos % (Auto) 1.3, Baso % (Auto) 0.6, Neut # (Auto) 9.0 H, Lymph # (Auto) 1.8, [place] # (Auto) 1.0, Eos # (Auto) 0.2, Baso # (Auto) 0.1, Sodium 138, Potassium 3.8, Chloride 100, Carbon Dioxide 29, Anion Gap 12.8, BUN 12, Creatinine 0.70, Estimated Creat Clear 50, Estimated GFR 84, Est GFR ( Amer) 102, Glucose 127 H, Calcium 9.1, Total Bilirubin 0.4, AST 26, ALT 21, Alkaline Phosphatase 118, Total Protein 7.4, Albumin 4.1, Globulin 3.3 H, Albumin/Globulin Ratio 1.2 03/13/25 11:33 03/13/25 11:33 Orders (Tests/Meds): ED MEDICATIONS Generic Name Dose Route Start Last Admin Trade Name Fremariela PRN Reason Stop Dose Admin Sodium Chloride 10 ml 03/13/25 12:09 03/13/25 12:14 Sodium Chloride 0.9% 10ml Syr (Rad Only) IV 04/12/25 12:08 10 ml NEEDED PRN Administration Maintain IV Site Discontinued Medications Generic Name Dose Route Start Last Admin Trade Name Freq PRN Reason Stop Dose Admin Lactated Ringer's 1,000 mls @ 999 mls/hr 03/13/25 11:45 03/13/25 11:46 Lactated Ringer's 1000 Ml Bag IV 03/13/25 12:45 999 mls/hr .Q1H1M JAMES Administration Iopamidol 75 ml 03/13/25 12:09 03/13/25 12:13 Iopamidol-370 (76%);100ml Bottle IV 03/13/25 12:10 75 ml ONCE ONE Administration Morphine Sulfate 4 mg 03/13/25 11:38 03/13/25 11:46 Morphine 4mg/Ml Syringe IV 03/13/25 11:39 4 mg ONCE ONE Administration Ondansetron HCl 4 mg 03/13/25 11:38 03/13/25 11:46 Ondansetron 4mg/2ml Vial IV 03/13/25 11:39 4 mg ONCE ONE Administration ORDERS Category Date Time Status CT abdomen pelvis w con Stat Cat Scan 03/13/25 11:37 Completed CBC w/Auto Diff [Complete Blood Count Auto Diff] Stat Lab 03/13/25 11:33 Completed CMP [Comprehensive Metabolic Panel] Stat Lab 03/13/25 11:33 Completed UA [Urinalysis and Microscopic] Stat Lab 03/13/25 11:10 Completed Medical Decision Narrative: 64-year-old with above history and physical initially I was concerned about organ prolapse given the discomfort with straining while having a bowel movement. However vaginal including speculum exam was unremarkable specifically no evidence of any obvious organ prolapse. Therefore what I am seeing on physical exam does not explain the symptoms she is complaining of. She does have lower abdominal discomfort therefore we will get a CT scan to further evaluate the differential which would include colitis gastroenteritis bowel obstruction malignancy etc. IV fluids pain medicine nausea medicine have been administered will reassess shortly. Reassessment 1:[address] scan performed I personally interpreted which shows no evidence of any intra-abdominal pathology definitively. There is what is most likely a duodenal diverticulum but the patient has no symptoms in that area that is not consistent with an ulcer. Specifically no evidence in the lower abdominal aspect or rectal area of significant inflammation or colitis. Serial exams patient is benign labs are unremarkable overall this is nonspecific I suspect she has just had some discomfort with the diarrhea itself some localized inflammation that were causing her symptoms. No other emergent medical condition identified patient was discharged in stable condition with advised to follow-up closely with her primary care physician. Critical Care Critical Care Time Critical Care Time: No
[2025-03-13 11:43] LABS: Microscopic, Urine URINE MICROSCOPIC (MICROSCOPIC)
[2025-03-13 11:43] LABS: Basophils # 0.1 K/mm3 (0-0.2); Basophils % 0.6 % (0.1-2.0); Eosinophils # 0.2 Kmm3 (0.0-0.4); Eosinophils % 1.3 % (0.1-12.0); Hemoglobin 11.6 g/dL (12.2-16.2); Lymphocytes # 1.8 K/mm3 (0.7-4.5); Lymphocytes % 14.3 % (10-50); Mean Corpuscular HGB Conc 32.2 g/dL (31.8-35.4); Mean Corpuscular Hemoglobin 30.4 pg (27.0-31.2); Mean Corpuscular Volume 94.2 fl (81-99); Mean Platelet Volume 10.7 fl (7.4-10.4); Monocytes % 8.3 % (1.7-9.3); Neutrophils % 72.6 % (37.0-80.0); Nucleated Red Blood Cells # 0 10^3/uL; Nucleated Red Blood Cells % 0 %; Platelet Count 381 K/mm3 (142-424); Red Blood Count 3.82 M/mm3 (4.20-5.40); Red Cell Distribution Width 16.9 % (11.5-17.5); Red Cell Distribution Width-SD 57.6 fL; White Blood Count 12.4 K/mm3 (4.8-10.8)
[2025-03-13 11:44] LABS: Appearance,Urine CLEAR (Clear); Bilirubin,Urine Negative (Negative); Blood, Urine Negative (Negative); Color,Urine YELLOW (Yellow); Glucose,Urine (UA) Negative (Negative); Ketones,Urine Negative (Negative); Leukocyte Esterase,Urine Negative (Negative); Nitrate,Urine Negative (Negative); Protein,Urine Negative (Negative); Specific Gravity, Urine 1.015 (1.005-1.030); Urobilinogen,Urine 0.2 EU/dl (0.2)
[2025-03-13] MEDS: ONDANSETRON 4MG/2ML VIAL 4 MG IV (11:46)
[2025-03-13] MEDS: MORPHINE 4MG/ML SYRINGE 4 MG IV (11:46)
[2025-03-13] MEDS: LACTATED RINGERS 1000ML 1,000 ML 999 ML IV (11:46)
[2025-03-13 11:47] LABS: Albumin Level 4.1 g/dl (3.5-5.0); Chloride 100 mmol/L (98-107); Sodium 138 mmol/L (136-145)
[2025-03-13 11:48] LABS: Potassium 3.8 mmoL/L (3.5-5.1)
[2025-03-13 11:50] LABS: Alanine Aminotransferase 21 U/L (12-78); Anion Gap 12.8 mEq/L (5-15); Aspartate Amino Transferase 26 U/L (14-36); Blood Urea Nitrogen 12 mg/dl (7-17); Carbon Dioxide 29 mmol/L (22.0-30.0); Creatinine Clearance Estimated 50 mL/min (50-200); Estimated Glomerular Filt Rate 84 ml/min (>60); GFR (African American) 102 ML/MIN (>60)
[2025-03-13 11:51] LABS: Albumin/Globulin Ratio 1.2 (1.1-1.8); Alkaline Phosphatase 118 U/L (38-126); Bilirubin,Total 0.4 mg/dl (0.2-1.3); Calcium 9.1 mg/dl (8.4-10.2); Globulin 3.3 g/dL (1.3-3.2); Glucose 127 mg/dl (74-100); Total Protein,Serum 7.4 g/dl (6.3-8.2)
[2025-03-13 11:53] LABS: Squamous Epithelial Cell,Urine Occasional #/hpf (0-5)
[2025-03-13] MEDS: IOPAMIDOL-370 (76%);100ML BOTTLE 75 ML IV (12:13)
[2025-03-13] MEDS: SODIUM CHLORIDE 0.9% 10ML SYR (RAD ONLY) 10 ML IV (12:14)
== END 2025-03-13 13:37 | disposition home or self-care (01) ==
PROVIDERS: Emergency Provider Student in an Organized Health Care Education/Training Program; PCP Family Medicine
DX: R10.30 Lower abdominal pain, unspecified (principal); R19.7 Diarrhea, unspecified
CPT/HCPCS: 74177; 80053; 81001; 85025; 96361; 96374; 96375; 99285; J2270; J2405; J7120; Q9967

== ENCOUNTER 2025-03-21 15:27 | Outpatient (CLI) | payer MEDICARE, OTHER, SELFPAY ==
[2025-03-21 14:55] LABS: Microscopic,Cath URINE MICROSCOPIC (MICROSCOPIC)
[2025-03-21 15:07] LABS: Appearance,Urine/Cath CLEAR (Clear); Bilirubin,Cath Negative (Negative); Blood, Urine/Cath Negative (Negative); Color,Urine/Cath YELLOW (Yellow); Glucose,Urine/Cath (UA) Negative (Negative); Ketones,Urine/Cath Negative (Negative); Leukocyte Esterase,Cath Negative (Negative); Nitrate,Cath Negative (Negative); PH,Urine/Cath 5.5 (5.0-8.5); Protein,Urine/Cath Negative (Negative); Specific Gravity, Urine/Cath 1.015 (1.005-1.030); Urobilinogen,Cath 0.2 EU/dl (0.2)
[2025-03-21 15:42] LABS: Squamous Epithelial Ur./Cath Occasional #/hpf (0-5)
[2025-03-21 15:43] LABS: CA Oxalate Crystals,Ur/Cath 2+ /lpf
== END 2025-03-21 23:59 | disposition home or self-care (01) ==
LOC: LAB.DROPOF 15:27
PROVIDERS: PCP Urology; Visit Provider Urology
DX: N32.81 Overactive bladder (principal); B37.31 Acute candidiasis of vulva and vagina; N89.8 Other specified noninflammatory disorders of vagina
CPT/HCPCS: 81001; 87798; 87801

== ENCOUNTER 2025-04-05 18:44 | Emergency (ER) | payer MEDICARE, OTHER, SELFPAY ==
[2025-04-05 19:48] VITALS: BP 117/77; PULSE 81; RESP 18; TEMP 36.7; O2SAT 95; BMI 45.2
--- NOTE | 2025-04-05 19:48 | ED_ITS ---
Discharge Plan Disposition Patient Disposition: Home, Self-Care Condition: Good Prescriptions Prescriptions: No Action promethazine 25 mg tablet 25 mg PO Q6H PRN (Reason: Nausea) oxybutynin chloride 10 mg tablet extended release 24hr 10 mg PO DAILY Qty: 90 0RF estradiol [Estrace] 0.01 % (0.1 mg/gram) cream 1 appful vaginal DAILY 30 Days Qty: 42.5 2RF Rx Instructions: Using finger technique daily x 14 days and then 3 times weekly thereafter. fluconazole 150 mg tablet See Rx Instructions .Route .COMPLEX Qty: 6 0RF Rx Instructions: One Daily for three days and then once weekly; Trelegy Ellipta 100-62.5-25 mcg blister with device 1 inh inhalation DAILY 90 Days Qty: 90 3RF albuterol sulfate [Ventolin HFA] 90 mcg/actuation HFA aerosol inhaler 2 inh inhalation Q6H PRN (Reason: shortness of breath or wheezing) 90 Days Qty: 18 3RF celecoxib [Celebrex] 100 mg capsule 100 mg PO BID Qty: 60 2RF spironolactone 25 mg tablet See Rx Instructions .ROUTE .COMPLEX Qty: 90 3RF Dose Instruction: TAKE 1 TABLET BY MOUTH TWICE DAILY Rx Instructions: TAKE 1 TABLET BY MOUTH TWICE DAILY mirtazapine 15 mg tablet See Rx Instructions .ROUTE .COMPLEX Qty: 30 0RF Dose Instruction: TAKE 1 TABLET BY MOUTH ONCE DAILY Rx Instructions: TAKE 1 TABLET BY MOUTH ONCE DAILY quetiapine 50 mg tablet See Rx Instructions .ROUTE .COMPLEX Qty: 30 0RF Dose Instruction: TAKE 1 TABLET BY MOUTH ONCE DAILY Rx Instructions: TAKE 1 TABLET BY MOUTH ONCE DAILY topiramate 100 mg tablet See Rx Instructions .ROUTE .COMPLEX Qty: 75 4RF Dose Instruction: TAKE 1 TABLET IN THE MORNING AND 1.5 TABLETS AT NIGHT Rx Instructions: TAKE 1 TABLET IN THE MORNING AND 1.5 TABLETS AT NIGHT Entresto 24-26 mg tablet See Rx Instructions .ROUTE .COMPLEX Qty: 90 3RF Dose Instruction: TAKE 1 TABLET BY MOUTH TWICE DAILY Rx Instructions: TAKE 1 TABLET BY MOUTH TWICE DAILY aspirin 81 mg Capsule 81 mg PO DAILY Relistor 150 mg tablet 450 mg PO DAILY Qty: 90 12RF Rx Instructions: Please take 3 tablets p.o. daily furosemide 40 mg tablet 40 mg PO BID atorvastatin 40 mg tablet 40 mg PO HS tramadol 50 mg tablet 50 mg PO DAILY carvedilol 3.125 mg tablet 3.125 mg PO DAILY famotidine 20 mg tablet 20 mg PO DAILY lorazepam 0.5 mg tablet 0.5 mg PO DAILY hydroxyzine HCl 25 mg tablet 25 mg PO DAILY gabapentin 100 mg capsule 100 mg PO DAILY duloxetine 60 mg capsule,delayed release(DR/EC) 60 mg PO DAILY cholecalciferol (vitamin D3) 50 mcg (2,000 unit) capsule 50 mcg PO DAILY Trelegy Ellipta 100-62.5-25 mcg blister with device 1 inh INHALATION DAILY mfyezijn-bjzesokov-NG 3.5-10,000-1 mg/mL-unit/mL-% drops,suspension 4 drp otic (ear) TID 10 Days Qty: 10 0RF ondansetron 4 mg tablet,disintegrating 4 mg PO Q8H PRN (Reason: nausea and vomiting) 4 Days Qty: 12 0RF Referrals Follow up/Referrals: Manas Jenkins MD [Primary Care Provider] - See instructions Activity Restrictions/Add. Instructions Additional Instructions/Restrictions: I recommend following up with your PCP if you have continued hip pain. You may need a different type of pain management as you have allergies both Tylenol and ibuprofen. If you have persistent new or worsening signs or symptoms follow-up sooner or return to the ER as needed. Clinical Impressions Clinical Impression: Bilateral hip pain Fall Qualifiers: Encounter type: initial encounter Qualified Code(s): W19.XXXA - Unspecified fall, initial encounter Print Language Print Language: Tamazight Discharge ED Provider: Shelton Garcia General Adult HPI <RICKEY Biswas - Last Filed: 04/05/25 21:48> General Chief complaint: PAIN Stated complaint: A/O 04/03 fell on cane now both hips hurt Time Seen by Provider: 04/05/25 19:48 History of Present Illness HPI narrative: Patient presents for evaluation of pelvis and hip pain. Patient fell 2 days ago landing in a seated position on her cane. Patient has had increasing bilateral hip pain since that is refractory to any of her home treatments. She has no loss of motor or sensory and is able to bear weight but it is very painful. She denies any chest pain shortness of breath loss of consciousness head neck pain back pain coccyx pain and has no focal neurologic deficits. Related Data Home Medications ?Medication ?Instructions ?Recorded ?Confirmed atorvastatin 40 mg tablet 40 mg PO HS 11/22/24 04/05/25 carvedilol 3.125 mg tablet 3.125 mg PO DAILY 11/22/24 04/05/25 cholecalciferol (vitamin D3) 50 50 mcg PO DAILY 11/22/24 04/05/25 mcg (2,000 unit) capsule duloxetine 60 mg capsule,delayed 60 mg PO DAILY 11/22/24 04/05/25 release famotidine 20 mg tablet 20 mg PO DAILY 11/22/24 04/05/25 fluticasone fur. 100 mcg-umeclid 1 inh inhalation DAILY 11/22/24 04/05/25 62.5 mcg-vilant 25 mcg inhalat.powder (Trelegy Ellipta) furosemide 40 mg tablet 40 mg PO BID 11/22/24 04/05/25 gabapentin 100 mg capsule 100 mg PO DAILY 11/22/24 04/05/25 hydroxyzine HCl 25 mg tablet 25 mg PO DAILY 11/22/24 04/05/25 lorazepam 0.5 mg tablet 0.5 mg PO DAILY 11/22/24 04/05/25 tramadol 50 mg tablet 50 mg PO DAILY 11/22/24 04/05/25 aspirin 81 mg capsule 81 mg PO DAILY 12/29/24 04/05/25 promethazine 25 mg tablet 25 mg PO Q6H PRN Nausea 04/04/25 04/05/25 Previous Rx's ?Medication ?Instructions ?Recorded methylnaltrexone 150 mg tablet 450 mg (3 x 150 mg) PO DAILY #90 12/29/24 (Relistor) tabs albuterol sulfate 90 mcg/actuation 2 inh inhalation Q6H PRN shortness 01/19/25 aerosol inhaler (Ventolin HFA) of breath or wheezing 90 days #18 grams fluticasone fur. 100 mcg-umeclid 1 inh inhalation DAILY 90 days #90 01/19/25 62.5 mcg-vilant 25 mcg ea inhalat.powder (Trelegy Ellipta) celecoxib 100 mg capsule (Celebrex) 100 mg PO BID #60 caps 01/31/25 ondansetron 4 mg disintegrating 4 mg PO Q8H PRN nausea and 02/14/25 tablet vomiting 4 days #12 tabs spironolactone 25 mg tablet See Rx Instructions .Route 03/03/25 .COMPLEX #90 tabs silhipcn-mzoknjzgt-frlvylppo 3.5 4 drp otic (ear) TID 10 days #10 mL 03/05/25 mg-10,000 unit/mL-1 % ear drops,susp mirtazapine 15 mg tablet See Rx Instructions .Route 03/18/25 .COMPLEX #30 tabs quetiapine 50 mg tablet See Rx Instructions .Route 03/18/25 .COMPLEX #30 tabs topiramate 100 mg tablet See Rx Instructions .Route 03/18/25 .COMPLEX #75 tabs estradiol 0.01% (0.1 mg/gram) 1 appful vaginal DAILY 30 days 03/21/25 vaginal cream (Estrace) #42.5 grams fluconazole 150 mg tablet See Rx Instructions .Route 03/21/25 .COMPLEX #6 tabs oxybutynin chloride 10 mg 10 mg PO DAILY #90 tabs 03/21/25 tablet,extended release 24 hr sacubitril 24 mg-valsartan 26 mg See Rx Instructions .Route 03/21/25 tablet (Entresto) .COMPLEX #90 tabs Allergies Allergy/AdvReac Type Severity Reaction Status Date / Time sumatriptan Allergy Severe Difficulty Verified 04/05/25 14:04 Breathing fexofenadine (FEXOFENADINE) Allergy Intermediate SICK Verified 04/05/25 14:04 amoxicillin (From AUGMENTIN) Allergy Unknown SOA Verified 04/05/25 14:04 clavulanic acid (From Allergy Unknown SOA Verified 04/05/25 14:04 AUGMENTIN) naproxen (NAPROXEN) Allergy Unknown SWELLING Verified 04/05/25 14:04 acetaminophen (From Tylenol) AdvReac Other Verified 04/05/25 14:04 PFS <RICKEY Biswas - Last Filed: 04/05/25 21:48> [facility] Disclaimer: The information contained in this section may have been updated after the patient was seen, as this information can be updated by other users. Medical History Anxiety and depression Arthritis Urinary tract infection History of COVID-19 Migraine History of stroke History of gastroesophageal reflux (GERD) History of anemia Insomnia COPD mixed type Oral dyskinesia Most likely secondary to prochlorperazine already discontinued by PCP Lung nodule Dyspnea on exertion Encounter for screening for malignant neoplasm of lung History of asthma Stopped smoking with greater than 30 pack year history Edema of both lower extremities Takotsubo cardiomyopathy Mediastinal lymphadenopathy Hilar lymphadenopathy Asthma exacerbation APARNA (obstructive sleep apnea) Noncompliant with CPAP treatment. Brain TIA Asthma Hyperglycemia A1c hemoglobin pending, follow-up with PCP for results. Tremor 09/08/2024: Initial good response to topiramate but worsening of tremor since last visit. Indications, possible side effects were reviewed once again with the patient and her including but not limited to nephrolithiasis, paresthesias, w ord finding difficulty, neuro glaucoma). APARNA (obstructive sleep apnea) Osteoarthritis She was wheelchair-bound at last appointment and currently ambulatory with a walker Hypertensive disorder Hyperlipidemia Gastroesophageal reflux disease Surgical History H/O elbow surgery LEFT History of carpal tunnel surgery of right wrist History of carpal tunnel surgery of left wrist H/O: History of arthroplasty of left shoulder H/O: hysterectomy History of cholecystectomy Family History Other Cancer 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 Smoking Status: Unknown if ever smoked second hand exposure: Yes alcohol intake: former substance use type: denies use current occupational status: disabled Travel in the last 8 weeks?: None household members: spouse housing: other marital status: current occupational exposures/hazards: No caffeine: Yes Have you lived/traveled outside [place] in past 30 days?: No Contact w/someone who lives/traveled outside [place] past 30 days?: No Exposure to someone with infectious disease in past 14 days?: No Do you have a fever (greater than 100.4 F or 38 C)?: No Have you tested positive for COVID-19?: No Exposed to someone with COVID-19 in past 14 days?: No Do you have a sore throat?: No Do you have a cough?: No Do you have any weakness?: No Do you have any diarrhea?: No Are you experiencing any unusual bleeding?: No Do you have any muscle aches/pain?: No Do you have any abdominal pain?: No Are you experiencing loss of taste or smell?: No Other Medical History Have you received the Flu Vaccine for this season: No Have you received the Pneumonia Vaccine: Yes <RICKEY Biswas - Last Filed: 04/05/25 21:48> ROS Obtained: Yes Systems reviewed as appropriate & no additional complaints except as documented Physical Exam <RICKEY Biswas - Last Filed: 04/05/25 21:48> General General appearance: alert and in no apparent distress Respiratory Respiratory exam: Present normal lung sounds bilaterally Cardiovascular Cardiovascular exam: Present regular rate Neurological Exam Neurological exam: Present alert and oriented X3 Medical Decision Making <RICKEY Biswas - Last Filed: 04/05/25 21:48> Medical Records Medical records reviewed: Yes I reviewed the patient's medical records. Screening: Per USPSTF and CDC recommendations, given the prevalence of disease in our [facility], it is our hospital?s policy to screen for HIV and viral Hepatitis for all patients aged 18 and over and those with ongoing risk factors. [place] Inquiry Pt receiving controlled substance: No Vital Signs: 04/05/25 19:48 04/05/25 20:01 04/05/25 20:30 Temperature 98.1 F Temperature Source Oral Pulse Rate 76 Pulse Rate [Left] 81 Respiratory Rate 18 Blood Pressure 110/65 118/68 Blood Pressure [Right Arm] 117/77 Blood Pressure Mean 81 Blood Pressure Mean [Right Arm] 90 Blood Pressure Source Blood Pressure Position 02 Sat by Pulse Oximetry 95 94 L Oxygen Delivery Method Room Air 04/05/25 22:03 Temperature 98.0 F Temperature Source Oral Pulse Rate 83 Pulse Rate [Left] Respiratory Rate 18 Blood Pressure 116/68 Blood Pressure [Right Arm] Blood Pressure Mean Blood Pressure Mean [Right Arm] Blood Pressure Source Automatic Cuff Blood Pressure Position Sitting 02 Sat by Pulse Oximetry Oxygen Delivery Method Room Air Lab Data Lab results reviewed: Yes I reviewed the patient's lab results. Orders (Tests/Meds): ED MEDICATIONS Discontinued Medications Generic Name Dose Route Start Last Admin Trade Name Freq PRN Reason Stop Dose Admin Oxycodone HCl 5 mg 04/05/25 20:14 04/05/25 20:19 Oxycodone 5mg Immediate Release Tablet PO 04/05/25 20:15 5 mg ONCE ONE Administration ORDERS Category Date Time Status Femur XR left 2 views [XR femur LT 2V] Stat Exams 04/05/25 19:50 Completed Femur XR right 2 views [XR femur RT 2V] Stat Exams 04/05/25 19:50 Completed Pelvis XR 1-2 views [XR pelvis 1-2V] Stat Exams 04/05/25 19:50 Completed Medical Decision Narrative: In summary patient is a 64-year-old female who presents to the emergency department for evaluation of lateral hip pain after a fall. Patient is hemodynamically stable upon arrival, afebrile. Physical exam is remarkable for bilateral hip tenderness to palpation however there is no palpable bony deformity. She is neurovascularly intact distally in all 4 extremities. She has no dorsal spine tenderness she has full range of motion of her C-spine via Smyth head injury and C-spine rules imaging is deferred as she is negative. She has no loss of motor or sensory and has no focal neurologic deficits. Differential diagnosis includes contusion versus fracture. Initial workup will be conducted with plain film of the pelvis and bilateral femurs. Initial interventions include oxycodone as patient has allergies to both Tylenol and NSAIDs. Initial workup reviewed by me and my informative rotation shows no evidence of acute fracture of her pelvis or femurs.. Upon repeat evaluation patient is able to ambulate in the ER without assistance.. Given this patient is appropriate for discharge with recommending Dacian's to follow-up closely with her PCP if she has persistent new or worsening signs or symptoms or return to the ER as needed. <Shelton Garcia MD - Last Filed: 04/05/25 23:15> Vital Signs: 04/05/25 19:48 04/05/25 20:01 04/05/25 20:30 Temperature 98.1 F Temperature Source Oral Pulse Rate 76 Pulse Rate [Left] 81 Respiratory Rate 18 Blood Pressure 110/65 118/68 Blood Pressure [Right Arm] 117/77 Blood Pressure Mean 81 Blood Pressure Mean [Right Arm] 90 Blood Pressure Source Blood Pressure Position 02 Sat by Pulse Oximetry 95 94 L Oxygen Delivery Method Room Air 04/05/25 22:03 Temperature 98.0 F Temperature Source Oral Pulse Rate 83 Pulse Rate [Left] Respiratory Rate 18 Blood Pressure 116/68 Blood Pressure [Right Arm] Blood Pressure Mean Blood Pressure Mean [Right Arm] Blood Pressure Source Automatic Cuff Blood Pressure Position Sitting 02 Sat by Pulse Oximetry Oxygen Delivery Method Room Air Orders (Tests/Meds): ED MEDICATIONS Discontinued Medications Generic Name Dose Route Start Last Admin Trade Name Pieter PRN Reason Stop Dose Admin Oxycodone HCl 5 mg 04/05/25 20:14 04/05/25 20:19 Oxycodone 5mg Immediate Release Tablet PO 04/05/25 20:15 5 mg ONCE ONE Administration ORDERS Category Date Time Status Femur XR left 2 views [XR femur LT 2V] Stat Exams 04/05/25 19:50 Completed Femur XR right 2 views [XR femur RT 2V] Stat Exams 04/05/25 19:50 Completed Pelvis XR 1-2 views [XR pelvis 1-2V] Stat Exams 04/05/25 19:50 Completed Medical Decision Narrative: In summary patient is a 64-year-old female who presents to the emergency department for evaluation of lateral hip pain after a fall. Patient is hemodynamically stable upon arrival, afebrile. Physical exam is remarkable for bilateral hip tenderness to palpation however there is no palpable bony deformity. She is neurovascularly intact distally in all 4 extremities. She has no dorsal spine tenderness she has full range of motion of her C-spine via Smyth head injury and C-spine rules imaging is deferred as she is negative. She has no loss of motor or sensory and has no focal neurologic deficits. Differential diagnosis includes contusion versus fracture. Initial workup will be conducted with plain film of the pelvis and bilateral femurs. Initial in terventions include oxycodone as patient has allergies to both Tylenol and NSAIDs. Initial workup reviewed by me and my informal interpretation shows no evidence of acute fracture of her pelvis or femurs.. Upon repeat evaluation patient is able to ambulate in the ER without assistance.. Given this patient is appropriate for discharge with recommending Dacian's to follow-up closely with her PCP if she has persistent new or worsening signs or symptoms or return to the ER as needed. I was consulted by the DION, and we discussed the complexity of the problems being addressed. I approved the treatment and management plan for this patient's care in the emergency department, thus performing a substantive portion of the medical decision making. Shelton Garcia MD Critical Care <RICKEY Biswas - Last Filed: 04/05/25 21:48> Critical Care Time Critical Care Time: No
--- NOTE | 2025-04-05 19:50 | XR_ITS ---
PROCEDURE INFORMATION: Exam: XR Right Femur Exam date and time: 04/05/2025 8:02 PM Age: 64 years old Clinical indication: Pain; Thigh; Right; Additional info: Fall with bilateral hip pain TECHNIQUE: Imaging protocol: Radiologic exam of the right femur. Views: 2 views. COMPARISON: CT ABDOMEN PELVIS W CON 03/13/2025 12:13 PM FINDINGS: Bones/joints: Unremarkable. No acute fracture. Advanced degenerative changes of the right knee and [id number] degenerative changes of the right hip. Soft tissues: Unremarkable. IMPRESSION: No acute findings.
--- NOTE | 2025-04-05 19:50 | XR_ITS ---
PROCEDURE INFORMATION: Exam: XR Left Femur Exam date and time: 04/05/2025 8:02 PM Age: 64 years old Clinical indication: Pain; Thigh; Left; Additional info: Fall with bilateral hip pain TECHNIQUE: Imaging protocol: Radiologic exam of the left femur. Views: 2 views. COMPARISON: CR XR FEMUR LT 2V 07/18/2024 12:17 PM FINDINGS: Bones/joints: Unremarkable. No acute fracture. Moderate degenerative changes of the left knee. Mild degenerative changes left hip. Soft tissues: Unremarkable. IMPRESSION: No acute findings.
--- NOTE | 2025-04-05 19:50 | XR_ITS ---
PROCEDURE INFORMATION: Exam: XR Pelvis Exam date and time: 04/05/2025 8:02 PM Age: 64 years old Clinical indication: Pelvic pain; Additional info: Fall with bilateral hip pain TECHNIQUE: Imaging protocol: Radiologic exam of the pelvis. Views: 1 or 2 view. COMPARISON: CT ABDOMEN PELVIS W CON 03/13/2025 12:13 PM FINDINGS: Bones/joints: Unremarkable. No acute fracture. Soft tissues: Unremarkable. IMPRESSION: No acute findings.
[2025-04-05 20:01] VITALS: BP 110/65; PULSE 76; O2SAT 94
[2025-04-05] MEDS: OXYCODONE 5MG IMMEDIATE RELEASE TABLET 5 MG PO (20:19)
[2025-04-05 20:30] VITALS: BP 118/68
--- NOTE | 2025-04-05 21:34 | PC.NURSE ---
pt given coffee at this time. no other needs voiced. call light in reach. family at bedside.
[2025-04-05 22:03] VITALS: BP 116/68; PULSE 83; RESP 18; TEMP 36.7; O2SAT 96
== END 2025-04-05 22:03 | disposition home or self-care (01) ==
PROVIDERS: Emergency Provider Emergency Medicine; PCP Family Medicine
DX: M25.551 Pain in right hip (principal); M25.552 Pain in left hip; W19.XXXA Unspecified fall, initial encounter
CPT/HCPCS: 72170; 73552; 99284

== ENCOUNTER 2025-04-13 13:21 | Emergency (ER) | payer MEDICARE, OTHER, SELFPAY ==
[2025-04-13 14:00] LABS: Microscopic, Urine URINE MICROSCOPIC (MICROSCOPIC)
--- NOTE | 2025-04-13 14:02 | CT_ITS ---
FINAL REPORT TECHNIQUE: IV contrast enhanced exam This study was performed with techniques to keep radiation doses as low as reasonably achievable, (ALARA). Individualized dose reduction techniques using automated exposure control or adjustment of mA and/or kV according to the patient's size were employed. CLINICAL HISTORY: ABD pain, vaginal bleeding versus hematuria COMPARISON: 03/13/2025 FINDINGS: Abdomen: There is mild atelectasis present in the lower lobes. The gallbladder has been surgically resected. Liver has an unremarkable CT appearance. The spleen, pancreas and adrenal glands are unremarkable. Kidneys show no mass or obstruction. No bowel obstruction or fluid collection is seen. Pelvis: The appendix is not visualized. There is mild stranding surrounding the distal descending colon, likely secondary to diverticulitis. The remainder of the bowel is unremarkable. The bladder is distended without evidence of mass or wall thickening. The uterus has been surgically resected. No fluid collection or adenopathy is seen. IMPRESSION: Mild stranding surrounding the distal descending colon, likely secondary to diverticulitis. The bladder is distended without evidence of mass or bladder wall thickening. Reviewed, Interpreted and Dictated by Anisa Arita MD Transcribed by Cindi Rg Authenticated and [facility]
--- NOTE | 2025-04-13 14:03 | ED_ITS ---
Discharge Plan Disposition Patient Disposition: Home, Self-Care Condition: Good Prescriptions Prescriptions: New amoxicillin-pot clavulanate 875-125 mg tablet 1 tab PO Q8 5 Days Qty: 15 0RF ondansetron 4 mg tablet,disintegrating 4 mg PO Q6H PRN (Reason: nausea and vomiting) Qty: 10 0RF No Action promethazine 25 mg tablet 25 mg PO Q6H PRN (Reason: Nausea) oxybutynin chloride 10 mg tablet extended release 24hr 10 mg PO DAILY Qty: 90 0RF estradiol [Estrace] 0.01 % (0.1 mg/gram) cream 1 appful vaginal DAILY 30 Days Qty: 42.5 2RF Rx Instructions: Using finger technique daily x 14 days and then 3 times weekly thereafter. fluconazole 150 mg tablet See Rx Instructions .Route .COMPLEX Qty: 6 0RF Rx Instructions: One Daily for three days and then once weekly; Trelegy Ellipta 100-62.5-25 mcg blister with device 1 inh inhalation DAILY 90 Days Qty: 90 3RF albuterol sulfate [Ventolin HFA] 90 mcg/actuation HFA aerosol inhaler 2 inh inhalation Q6H PRN (Reason: shortness of breath or wheezing) 90 Days Qty: 18 3RF celecoxib [Celebrex] 100 mg capsule 100 mg PO BID Qty: 60 2RF spironolactone 25 mg tablet See Rx Instructions .ROUTE .COMPLEX Qty: 90 3RF Dose Instruction: TAKE 1 TABLET BY MOUTH TWICE DAILY Rx Instructions: TAKE 1 TABLET BY MOUTH TWICE DAILY mirtazapine 15 mg tablet See Rx Instructions .ROUTE .COMPLEX Qty: 30 0RF Dose Instruction: TAKE 1 TABLET BY MOUTH ONCE DAILY Rx Instructions: TAKE 1 TABLET BY MOUTH ONCE DAILY quetiapine 50 mg tablet See Rx Instructions .ROUTE .COMPLEX Qty: 30 0RF Dose Instruction: TAKE 1 TABLET BY MOUTH ONCE DAILY Rx Instructions: TAKE 1 TABLET BY MOUTH ONCE DAILY topiramate 100 mg tablet See Rx Instructions .ROUTE .COMPLEX Qty: 75 4RF Dose Instruction: TAKE 1 TABLET IN THE MORNING AND 1.5 TABLETS AT NIGHT Rx Instructions: TAKE 1 TABLET IN THE MORNING AND 1.5 TABLETS AT NIGHT Entresto 24-26 mg tablet See Rx Instructions .ROUTE .COMPLEX Qty: 90 3RF Dose Instruction: TAKE 1 TABLET BY MOUTH TWICE DAILY Rx Instructions: TAKE 1 TABLET BY MOUTH TWICE DAILY aspirin 81 mg Capsule 81 mg PO DAILY Relistor 150 mg tablet 450 mg PO DAILY Qty: 90 12RF Rx Instructions: Please take 3 tablets p.o. daily furosemide 40 mg tablet 40 mg PO BID atorvastatin 40 mg tablet 40 mg PO HS tramadol 50 mg tablet 50 mg PO DAILY carvedilol 3.125 mg tablet 3.125 mg PO DAILY famotidine 20 mg tablet 20 mg PO DAILY lorazepam 0.5 mg tablet 0.5 mg PO DAILY hydroxyzine HCl 25 mg tablet 25 mg PO DAILY gabapentin 100 mg capsule 100 mg PO DAILY duloxetine 60 mg capsule,delayed release(DR/EC) 60 mg PO DAILY cholecalciferol (vitamin D3) 50 mcg (2,000 unit) capsule 50 mcg PO DAILY Trelegy Ellipta 100-62.5-25 mcg blister with device 1 inh INHALATION DAILY mwlhudfw-rzolrzeom-TB 3.5-10,000-1 mg/mL-unit/mL-% drops,suspension 4 drp otic (ear) TID 10 Days Qty: 10 0RF ondansetron 4 mg tablet,disintegrating 4 mg PO Q8H PRN (Reason: nausea and vomiting) 4 Days Qty: 12 0RF Referrals Follow up/Referrals: Shiloh Tellez DO [Staff Physician] - See instructions Neal Donald MD [Staff Physician] - See instructions Manas Jenkins MD [Primary Care Provider] - See instructions Activity Restrictions/Add. Instructions Additional Instructions/Restrictions: Please return to the emergency department with any worsening signs or symptoms, any vomiting, worsening abdominal pain, any worsening bleeding in your stool, urine or vaginal bleeding. Please follow-up with [facility]/women's health provider, general surgery team and primary care doctor in the upcoming days/weeks. Please take all medication as prescribed. Clinical Impressions Clinical Impression: Diverticulitis, Hematuria Instructions Patient Instructions: DI for Diverticulitis, DI for Urinary Tract Infection (UTI) Print Language Print Language: Frisian Discharge ED Provider: Floyd Morton General Adult HPI <RICKEY Santiago - Last Filed: 04/13/25 16:51> General Chief complaint: Urogenital-Female Stated complaint: blood when urinating pain on the inside Time Seen by Provider: 04/13/25 13:51 Mode of Arrival: Ambulatory Source of Information: Patient Limitations: No Limitations History of Present Illness HPI narrative: 64-year-old female presents the emergency department with a 1 to 2-day history of vaginal bleeding versus hematuria, pain on the inside , when asking the patient to elaborate about this, she states that they are just pain in the inside , and she points to her lower abdomen area, when asked about her genitourinary area she states that there is pain in there as well. She states that she woke up last night with blood in my underwear , she describes as dark , denies any overt melena or hematochezia, has had prior hysterectomy unsure if total hysterectomy versus partial as this is data deficient, she denies any chest pain, shortness of breath, admits to nausea denies vomiting, denies any constipation diarrhea, admits to subjective fever and chills, denies any other urinary type symptomatology to include dysuria, or urinary frequency/urgency, she is a former smoker, denies any alcohol or drug use, other past medical history is consistent with overactive bladder, osteoarthritis, GERD, obesity, degenerative disc disease of the spine/spinal stenosis,, coronary artery disease, anxiety, COPD, hyperlipidemia, hypertension, APARNA. Initial triage vitals unremarkable. Onset (ago): day(s) Related Data Home Medications ?Medication ?Instructions ?Recorded ?Confirmed atorvastatin 40 mg tablet 40 mg PO HS 11/22/24 04/05/25 carvedilol 3.125 mg tablet 3.125 mg PO DAILY 11/22/24 04/05/25 cholecalciferol (vitamin D3) 50 50 mcg PO DAILY 11/22/24 04/05/25 mcg (2,000 unit) capsule duloxetine 60 mg capsule,delayed 60 mg PO DAILY 11/22/24 04/05/25 release famotidine 20 mg tablet 20 mg PO DAILY 11/22/24 04/05/25 fluticasone fur. 100 mcg-umeclid 1 inh inhalation DAILY 11/22/24 04/05/25 62.5 mcg-vilant 25 mcg inhalat.powder (Trelegy Ellipta) furosemide 40 mg tablet 40 mg PO BID 11/22/24 04/05/25 gabapentin 100 mg capsule 100 mg PO DAILY 11/22/24 04/05/25 hydroxyzine HCl 25 mg tablet 25 mg PO DAILY 11/22/24 04/05/25 lorazepam 0.5 mg tablet 0.5 mg PO DAILY 11/22/24 04/05/25 tramadol 50 mg tablet 50 mg PO DAILY 11/22/24 04/05/25 aspirin 81 mg capsule 81 mg PO DAILY 12/29/24 04/05/25 promethazine 25 mg tablet 25 mg PO Q6H PRN Nausea 04/04/25 04/05/25 Previous Rx's ?Medication ?Instructions ?Recorded methylnaltrexone 150 mg tablet 450 mg (3 x 150 mg) PO DAILY #90 12/29/24 (Relistor) tabs albuterol sulfate 90 mcg/actuation 2 inh inhalation Q6H PRN shortness 01/19/25 aerosol inhaler (Ventolin HFA) of breath or wheezing 90 days #18 grams fluticasone fur. 100 mcg-umeclid 1 inh inhalation DAILY 90 days #90 01/19/25 62.5 mcg-vilant 25 mcg ea inhalat.powder (Trelegy Ellipta) celecoxib 100 mg capsule (Celebrex) 100 mg PO BID #60 caps 01/31/25 ondansetron 4 mg disintegrating 4 mg PO Q8H PRN nausea and 02/14/25 tablet vomiting 4 days #12 tabs spironolactone 25 mg tablet See Rx Instructions .Route 03/03/25 .COMPLEX #90 tabs obqhqypq-zuezrtdli-wesodjiod 3.5 4 drp otic (ear) TID 10 days #10 mL 03/05/25 mg-10,000 unit/mL-1 % ear drops,susp mirtazapine 15 mg tablet See Rx Instructions .Route 03/18/25 .COMPLEX #30 tabs quetiapine 50 mg tablet See Rx Instructions .Route 03/18/25 .COMPLEX #30 tabs topiramate 100 mg tablet See Rx Instructions .Route 03/18/25 .COMPLEX #75 tabs estradiol 0.01% (0.1 mg/gram) 1 appful vaginal DAILY 30 days 03/21/25 vaginal cream (Estrace) #42.5 grams fluconazole 150 mg tablet See Rx Instructions .Route 03/21/25 .COMPLEX #6 tabs oxybutynin chloride 10 mg 10 mg PO DAILY #90 tabs 03/21/25 tablet,extended release 24 hr sacubitril 24 mg-valsartan 26 mg See Rx Instructions .Route 03/21/25 tablet (Entresto) .COMPLEX #90 tabs amoxicillin 875 mg-potassium 1 tab PO Q8 5 days #15 tabs 04/13/25 clavulanate 125 mg tablet ondansetron 4 mg disintegrating 4 mg PO Q6H PRN nausea and 04/13/25 tablet vomiting #10 tabs Allergies Allergy/AdvReac Type Severity Reaction Status Date / Time sumatriptan Allergy Severe Difficulty Verified 04/05/25 14:04 Breathing fexofenadine (FEXOFENADINE) Allergy Intermediate SICK Verified 04/05/25 14:04 amoxicillin (From AUGMENTIN) Allergy Unknown SOA Verified 04/05/25 14:04 clavulanic acid (From Allergy Unknown SOA Verified 04/05/25 14:04 AUGMENTIN) naproxen (NAPROXEN) Allergy Unknown SWELLING Verified 04/05/25 14:04 acetaminophen (From Tylenol) AdvReac Other Verified 04/05/25 14:04 PFS <RICKEY Santiago - Last Filed: 04/13/25 16:51> [facility] Disclaimer: The information contained in this section may have been updated after the patient was seen, as this information can be updated by other users. Medical History Anxiety and depression Arthritis Urinary tract infection History of COVID-19 Migraine History of stroke History of gastroesophageal reflux (GERD) History of anemia Insomnia COPD mixed type Oral dyskinesia Most likely secondary to prochlorperazine already discontinued by PCP Lung nodule Dyspnea on exertion Encounter for screening for malignant neoplasm of lung History of asthma Stopped smoking with greater than 30 pack year history Edema of both lower extremities Takotsubo cardiomyopathy Mediastinal lymphadenopathy Hilar lymphadenopathy Asthma exacerbation APARNA (obstructive sleep apnea) Noncompliant with CPAP treatment. Brain TIA Asthma Hyperglycemia A1c hemoglobin pending, follow-up with PCP for results. Tremor 09/08/2024: Initial good response to topiramate but worsening of tremor since last visit. Indications, possible side effects were reviewed once again with the patient and her including but not limited to nephrolithiasis, paresthesias, word finding difficulty, neuro glaucoma). APARNA (obstructive sleep apnea) Osteoarthritis She was wheelchair-bound at last appointment and currently ambulatory with a walker Hypertensive disorder Hyperlipidemia Gastroesophageal reflux disease Surgical History H/O elbow surgery LEFT History of carpal tunnel surgery of right wrist History of carpal tunnel surgery of left wrist H/O: History of arthroplasty of left shoulder H/O: hysterectomy History of cholecystectomy Family History Other Cancer 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 Smoking Status: Unknown if ever smoked second hand exposure: Yes alcohol intake: former substance use type: denies use current occupational status: disabled Travel in the last 8 weeks?: None household members: spouse housing: other marital status: current occupational exposures/hazards: No caffeine: Yes Other Medical History Have you received the Flu Vaccine for this season: No Have you received the Pneumonia Vaccine: Yes <RICKEY Santiago - Last Filed: 04/13/25 16:51> ROS Obtained: Yes All systems reviewed & no additional complaints except as documented Physical Exam <RICKEY Santiago - Last Filed: 04/13/25 16:51> General General appearance: alert and in no apparent distress Head Head exam: atraumatic and normocephalic Eye Eye exam: Present PERRL and EOMI ENT ENT exam: Present mucous membranes moist Neck Neck exam: Present normal inspection Chest Chest inspection: Present normal inspection and symmetric chest wall rise Respiratory Respiratory exam: Present normal lung sounds bilaterally; Absent respiratory distress Cardiovascular Cardiovascular exam: Present regular rate and normal rhythm Abdominal Exam Abdominal exam: Present soft and tenderness; Absent guarding, rebound or rigidity Abdominal tenderness: Present suprapubic Comment: Mild suprapubic tenderness to palpation Extremities Exam Extremities exam: Present normal inspection Neurological Exam Neurological exam: Present alert and oriented X3 Psychiatric Psychiatric exam: Present normal affect Skin Skin exam: Present warm and dry Medical Decision Making <RICKEY Santiago - Last Filed: 04/13/25 16:51> Medical Records Medical records reviewed: Yes I reviewed the patient's medical records. Screening: Per USPSTF and CDC recommendations, given the prevalence of disease in our region, it is our hospital?s policy to screen for HIV and viral Hepatitis for all patients aged 18 and over and those with ongoing risk factors. Adonay Inquiry Pt receiving controlled substance: No Adonay was queried for this patient: No Vital Signs: 04/13/25 14:32 04/13/25 15:30 04/13/25 16:56 Temperature 98.0 F 98.1 F Temperature Source Oral Oral Pulse Rate 71 72 Pulse Rate [Radial] 75 Respiratory Rate 18 18 Blood Pressure 97/67 L 108/64 L Blood Pressure [Right Arm] 118/68 Blood Pressure Mean [Right Arm] 84 Blood Pressure Source Automatic Cuff Blood Pressure Source [Right Arm] Automatic Cuff Blood Pressure Position Sitting Blood Pressure Position [Right Arm] Sitting 02 Sat by Pulse Oximetry 95 100 Oxygen Delivery Method Room Air Room Air Room Air Lab Data Lab Results 04/13/25 13:55: Urine Color Yellow, Urine Appearance Clear, Urine pH 5.5, Ur Specific [place] 1.009, Urine Protein Negative, Urine Glucose (UA) Negative, Urine Ketones Negative, Urine Blood 2+ A, Urine Nitrate Negative, Urine Bilirubin Negative, Urine Urobilinogen 1.0, Ur Leukocyte Esterase 1+ A, Urine RBC 3-5, Urine WBC Occasional, Ur Squamous Epith Cells 3-5, Urine Bacteria Trace 04/13/25 14:40: WBC 10.8, RBC 3.53 L, Hgb 10.5 L, Hct 33.5 L, MCV 94.9, MCH 29.7, MCHC 31.3 L, RDW 17.3, Plt Count 395, MPV 10.1, Neut % (Auto) 77.8, Lymph % (Auto) 11.3, [place] % (Auto) 8.5, Eos % (Auto) 0.9, Baso % (Auto) 0.4, Neut # (Auto) 8.4 H, Lymph # (Auto) 1.2, [place] # (Auto) 0.9, Eos # (Auto) 0.1, Baso # (Auto) 0.0, PT 10.9, INR 0.98, Sodium 137, Potassium 3.7, Chloride 104, Carbon Dioxide 29, Anion Gap 7.7, BUN 12, Creatinine 0.90, Estimated Creat Clear 50, Estimated GFR 63, Est GFR ( Amer) 76, Glucose 119 H, Calcium 8.6, Total Bilirubin 0.5, AST 20, ALT 21, Alkaline Phosphatase 200 H, Total Protein 6.5, Albumin 3.6, Globulin 2.9, Albumin/Globulin Ratio 1.2, Lipase 23 04/13/25 14:40 04/13/25 14:40 Orders (Tests/Meds): ED MEDICATIONS Discontinued Medications Generic Name Dose Route Start Last Admin Trade Name Pieter PRN Reason Stop Dose Admin Iopamidol 75 ml 04/13/25 16:00 04/13/25 16:02 Iopamidol-370 (76%);100ml Bottle IV 04/13/25 16:01 75 ml ONCE ONE Administration Ondansetron HCl 4 mg 04/13/25 14:02 04/13/25 14:53 Ondansetron 4mg/2ml Vial IV 04/13/25 14:03 4 mg ONCE ONE Administration Sodium Chloride 10 ml 04/13/25 16:00 04/13/25 16:02 Sodium Chloride 0.9% 10ml Syr (Rad Only) IV 04/13/25 16:01 10 ml ONCE ONE Administration ORDERS Category Date Time Status CT abdomen pelvis w con Stat Cat Scan 04/13/25 14:02 Completed Complete Blood Count Auto Diff Stat Lab 04/13/25 14:40 Completed Comprehensive Metabolic Panel Stat Lab 04/13/25 14:40 Completed Lipase Stat Lab 04/13/25 14:40 Completed PT INR [Prothrombin Time INR] Stat Lab 04/13/25 14:40 Completed Urinalysis and Microscopic Stat Lab 04/13/25 13:55 Completed Urine Culture Stat Micro 04/13/25 13:55 Received Medical Decision Narrative: 64-year-old female presents the emergency department with lower abdominal pain, vaginal bleeding versus hematuria, differential diagnose include not limited to, acute UTI, atrophic vaginitis, acute pyelonephritis, bowel obstruction, nephrolithiasis, ureterolithiasis, among others. I discussed patient's case with attending physician Dr. Morton along with the attending physician Dr. Leggett, who took over shift change for Dr. Morton Obtain basic laboratory studies, lipase, PT/INR, urinalysis, transvaginal ultrasound, CT and pelvis with contrast, will give 4 mg IV Zofran for nausea, I had a discussion with the attending physician and plastic process technician, patient has had history of hysterectomy, data deficient of partial or total, unsure if vaginal bleeding versus hematuria, will check patient's urine via urinalysis and CT abdomen pelvis first before obtaining TVUS in the setting of hysterectomy. CBC is notable for erythrocyte opinion at 3.53, hemoglobin is decreased to 10.5, hematocrit is decreased 33.5, which is somewhat in line with the patient's baseline anemia There is 2+ hematuria in the patient's urinalysis, 1+ leukocyte esterase, negative nitrites 3-5 RBCs, occasional WBCs, 3-5 epithelial cells, trace bacteria. PT/INR within normal limits. Decided to forego TVUS, and pursue more of a urinary workup due to the patient's urinalysis/CT abdomen pelvis. I reviewed the patient's CT abdomen pelvis with contrast on the corresponding radiologic report, mild stranding around the distal descending colon likely secondary diverticulitis, bladder is distended without evidence of mass or bladder wall thickening. I discussed the results with the patient today with the bedside, patient and family agree with current treatment plan/discharge plan, will prescribe the patient Augmentin 875 mg / 125 mg p.o. every 8 for 5 days, for diverticulitis/UTI treatment, patient will follow-up with [facility], general surgery team, . In the upcoming days/weeks, she will return to emergency with any worsening signs or symptoms. Patient then voiced understanding. Asked about her documented allergy to Augmentin, patient states she is taken this medication before, and has had no anaphylactic type reaction. <Floyd Morton MD - Last Filed: 04/14/25 19:06> Vital Signs: 04/13/25 14:32 04/13/25 15:30 04/13/25 16:56 Temperature 98.0 F 98.1 F Temperature Source Oral Oral Pulse Rate 71 72 Pulse Rate [Radial] 75 Respiratory Rate 18 18 Blood Pressure 97/67 L 108/64 L Blood Pressure [Right Arm] 118/68 Blood Pressure Mean [Right Arm] 84 Blood Pressure Source Automatic Cuff Blood Pressure Source [Right Arm] Automatic Cuff Blood Pressure Position Sitting Blood Pressure Position [Right Arm] Sitting 02 Sat by Pulse Oximetry 95 100 Oxygen Delivery Method Room Air Room Air Room Air Lab Data Lab Results 04/13/25 13:55: Urine Color Yellow, Urine Appearance Clear, Urine pH 5.5, Ur Specific [place] 1.009, Urine Protein Negative, Urine Glucose (UA) Negative, Urine Ketones Negative, Urine Blood 2+ A, Urine Nitrate Negative, Urine Bilirubin Negative, Urine Urobilinogen 1.0, Ur Leukocyte Esterase 1+ A, Urine RBC 3-5, Urine WBC Occasional, Ur Squamous Epith Cells 3-5, Urine Bacteria Trace 04/13/25 14:40: WBC 10.8, RBC 3.53 L, Hgb 10.5 L, Hct 33.5 L, MCV 94.9, MCH 29.7, MCHC 31.3 L, RDW 17.3, Plt Count 395, MPV 10.1, Neut % (Auto) 77.8, Lymph % (Auto) 11.3, [place] % (Auto) 8.5, Eos % (Auto) 0.9, Baso % (Auto) 0.4, Neut # (Auto) 8.4 H, Lymph # (Auto) 1.2, [place] # (Auto) 0.9, Eos # (Auto) 0.1, Baso # (Auto) 0.0, PT 10.9, INR 0.98, Sodium 137, Potassium 3.7, Chloride 104, Carbon Dioxide 29, Anion Gap 7.7, BUN 12, Creatinine 0.90, Estimated Creat Clear 50, Estimated GFR 63, Est GFR ( Amer) 76, Glucose 119 H, Calcium 8.6, Total Bilirubin 0.5, AST 20, ALT 21, Alkaline Phosphatase 200 H, Total Protein 6.5, Albumin 3.6, Globulin 2.9, Albumin/Globulin Ratio 1.2, Lipase 23 Orders (Tests/Meds): ED MEDICATIONS Discontinued Medications Generic Name Dose Route Start Last Admin Trade Name Yonathanq PRN Reason Stop Dose Admin Iopamidol 75 ml 04/13/25 16:00 04/13/25 16:02 Iopamidol-370 (76%);100ml Bottle IV 04/13/25 16:01 75 ml ONCE ONE Administration Ondansetron HCl 4 mg 04/13/25 14:02 04/13/25 14:53 Ondansetron 4mg/2ml Vial IV 04/13/25 14:03 4 mg ONCE ONE Administration Sodium Chloride 10 ml 04/13/25 16:00 04/13/25 16:02 Sodium Chloride 0.9% 10ml Syr (Rad Only) IV 04/13/25 16:01 10 ml ONCE ONE Administration ORDERS Category Date Time Status CT abdomen pelvis w con Stat Cat Scan 04/13/25 14:02 Completed Complete Blood Count Auto Diff Stat Lab 04/13/25 14:40 Completed Comprehensive Metabolic Panel Stat Lab 04/13/25 14:40 Completed Lipase Stat Lab 04/13/25 14:40 Completed PT INR [Prothrombin Time INR] Stat Lab 04/13/25 14:40 Completed Urinalysis and Microscopic Stat Lab 04/13/25 13:55 Completed Urine Culture Stat Micro 04/13/25 13:55 Received Medical Decision Narrative: 64-year-old female presents the emergency department with lower abdominal pain, vaginal bleeding versus hematuria, differential diagnose include not limited to, acute UTI, atrophic vaginitis, acute pyelonephritis, bowel obstruction, nephrolithiasis, ureterolithiasis, among others. I discussed patient's case with attending physician Dr. Morton along with the attending physician Dr. Leggett, who took over shift change for Dr. Morton Obtain basic laboratory studies, lipase, PT/INR, urinalysis, transvaginal ultrasound, CT and pelvis with contrast, will give 4 mg IV Zofran for nausea, I had a discussion with the attending physician and plastic process technician, patient has had history of hysterectomy, data deficient of partial or total, unsure if vaginal bleeding versus hematuria, will check patient's urine via urinalysis and CT abdomen pelvis first before obtaining TVUS in the setting of hysterectomy. CBC is notable for erythrocyte opinion at 3.53, hemoglobin is decreased to 10.5, hematocrit is decreased 33.5, which is somewhat in line with the patient's baseline anemia There is 2+ hematuria in the patient's urinalysis, 1+ leukocyte esterase, negative nitrites 3-5 RBCs, occasional WBCs, 3-5 epithelial cells, trace bacteria. PT/INR within normal limits. Decided to forego TVUS, and pursue more of a urinary workup due to the patient's urinalysis/CT abdomen pelvis. I reviewed the patient's CT abdomen pelvis with contrast on the corresponding radiologic report, mild stranding around the distal descending colon likely secondary diverticulitis, bladder is distended without evidence of mass or bladder wall thickening. I discussed the results with the patient today with the bedside, patient and family agree with current treatment plan/discharge plan, will prescribe the patient Augmentin 875 mg / 125 mg p.o. every 8 for 5 days, for diverticulitis/UTI treatment, patient will follow-up with [facility], general surgery team, In the upcoming days/weeks, she will return to emergency with any worsening signs or symptoms. Patient then voiced understanding. Asked about her documented allergy to Augmentin, patient states she is taken this medication before, and has had no anaphylactic type reaction. I was consulted by the DION, and we discussed the complexity of the problems being addressed. I approved the treatment and management plan for this patient's care in the Emergency Department, thus performing a substantive portion of the medical decision making. Floyd Morton MD Critical Care <RICKEY Santiago - Last Filed: 04/13/25 16:51> Critical Care Time Critical Care Time: No
[2025-04-13 14:20] LABS: Appearance,Urine CLEAR (Clear); Bilirubin,Urine Negative (Negative); Blood, Urine 2+ (Negative); Color,Urine YELLOW (Yellow); Glucose,Urine (UA) Negative (Negative); Ketones,Urine Negative (Negative); Leukocyte Esterase,Urine 1+ (Negative); Nitrate,Urine Negative (Negative); PH,Urine 5.5 (5.0-8.5); Protein,Urine Negative (Negative)
[2025-04-13 14:32] VITALS: BP 118/68; PULSE 75; RESP 18; TEMP 36.7; O2SAT 95; BMI 44.9
--- NOTE | 2025-04-13 14:44 | PC.NURSE ---
Gave pt warm blanket.
[2025-04-13 14:50] LABS: Basophils % 0.4 % (0.1-2.0); Eosinophils # 0.1 Kmm3 (0.0-0.4); Eosinophils % 0.9 % (0.1-12.0); Hematocrit 33.5 % (37.0-47.0); Hemoglobin 10.5 g/dL (12.2-16.2); Immature Granulocytes # 0.12 10^3uL; Immature Granulocytes % 1.1 %; Lymphocytes # 1.2 K/mm3 (0.7-4.5); Lymphocytes % 11.3 % (10-50); Mean Corpuscular HGB Conc 31.3 g/dL (31.8-35.4); Mean Corpuscular Hemoglobin 29.7 pg (27.0-31.2); Mean Corpuscular Volume 94.9 fl (81-99); Mean Platelet Volume 10.1 fl (7.4-10.4); Monocytes # 0.9 K/mm3 (0.1-1.0); Monocytes % 8.5 % (1.7-9.3); Neutrophils # 8.4 K/mm3 (1.8-7.8); Neutrophils % 77.8 % (37.0-80.0); Nucleated Red Blood Cells # 0.03 10^3/uL; Nucleated Red Blood Cells % 0.3 %; Platelet Count 395 K/mm3 (142-424); Red Blood Count 3.53 M/mm3 (4.20-5.40); Red Cell Distribution Width 17.3 % (11.5-17.5); Red Cell Distribution Width-SD 59.2 fL; White Blood Count 10.8 K/mm3 (4.8-10.8)
[2025-04-13 14:52] LABS: Specific Gravity, Urine 1.009 (1.005-1.030)
[2025-04-13] MEDS: ONDANSETRON 4MG/2ML VIAL 4 MG IV (14:53)
[2025-04-13 14:56] LABS: WBC,Urine Occasional #/hpf (0-3)
[2025-04-13 14:57] LABS: Bacteria,Urine Trace /lpf
[2025-04-13 15:01] LABS: INR 0.98 (0.9-1.1); Prothrombin Time 10.9 seconds (10.1-12.5)
[2025-04-13 15:22] LABS: Albumin Level 3.6 g/dl (3.5-5.0); Chloride 104 mmol/L (98-107); Potassium 3.7 mmoL/L (3.5-5.1); Sodium 137 mmol/L (136-145)
[2025-04-13 15:25] LABS: Alanine Aminotransferase 21 U/L (12-78); Albumin/Globulin Ratio 1.2 (1.1-1.8); Alkaline Phosphatase 200 U/L (38-126); Anion Gap 7.7 mEq/L (5-15); Aspartate Amino Transferase 20 U/L (14-36); Bilirubin,Total 0.5 mg/dl (0.2-1.3); Blood Urea Nitrogen 12 mg/dl (7-17); Calcium 8.6 mg/dl (8.4-10.2); Carbon Dioxide 29 mmol/L (22.0-30.0); Creatinine Clearance Estimated 50 mL/min (50-200); Estimated Glomerular Filt Rate 63 ml/min (>60); GFR (African American) 76 ML/MIN (>60); Globulin 2.9 g/dL (1.3-3.2); Glucose 119 mg/dl (74-100); Total Protein,Serum 6.5 g/dl (6.3-8.2)
[2025-04-13 15:26] LABS: Lipase 23 U/L (23-300)
[2025-04-13 15:30] VITALS: BP 97/67; PULSE 71; O2SAT 100
[2025-04-13] MEDS: SODIUM CHLORIDE 0.9% 10ML SYR (RAD ONLY) 10 ML IV (16:02)
[2025-04-13] MEDS: IOPAMIDOL-370 (76%);100ML BOTTLE 75 ML IV (16:02)
[2025-04-13 16:56] VITALS: BP 108/64; PULSE 72; RESP 18; TEMP 36.7; O2SAT 99
== END 2025-04-13 16:56 | disposition home or self-care (01) ==
PROVIDERS: Physician Assistant; Emergency Provider Emergency Medicine; PCP Family Medicine
DX: N39.0 Urinary tract infection, site not specified (principal); R31.9 Hematuria, unspecified; K57.92 Diverticulitis of intestine, part unspecified, without perforation or abscess without bleeding; I10 Essential (primary) hypertension; E78.5 Hyperlipidemia, unspecified; J44.9 Chronic obstructive pulmonary disease, unspecified; Z87.891 Personal history of nicotine dependence
CPT/HCPCS: 74177; 80053; 81001; 83690; 85025; 85610; 87086; 96374; 99284; J2405; Q9967

== ENCOUNTER 2025-05-06 19:50 | Emergency (ER) | payer MEDICARE, OTHER, SELFPAY ==
--- OUTSIDE RECORDS SUMMARY | 2025-05-06 19:59 | XMS_ITS | Clinical Summary ---
Author Organization [id number] Address [address] [place] [address] Phone Care Team Providers Care Scrap Wheeler Name Role Phone Javi Corrales MD Primary Care Physician [ ] Conditions or Problems No information available. Medications No information available. Medications Administered No information available. Allergies, Adverse Reactions, Alerts No information available. Results No information available. Plan of Care No information available. Procedures No information available. Vital Signs No information available. Immunizations No information available. Advance Directives No information available.
--- OUTSIDE RECORDS SUMMARY | 2025-05-06 19:59 | XMS_ITS | Clinical Summary ---
Author Organization [facility] Address [facility] [place] [address] Phone Care Team Providers Care Emergency Medcl Emt Name Role Phone GregoryManas harvey Blaine Primary Care Provider Allergies No known active allergies Medications No known medications 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 Tobacco Use Types Packs/Day Years Used Date Smoking Tobacco: Never Assessed Comments Unknown Sex and Gender Information Value Date Recorded Sex Assigned at Not on file Legal Sex Female 1:34 PM EDT Gender Identity Not on file Sexual Orientation Not on file Last Filed Vital Signs Vital Sign Reading Time Taken Comments Blood Pressure 162/100 12/14/2022 9:33 PM EST Pulse 86 12/14/2022 9:23 PM EST Temperature 37.1 C (98.7 F) 12/14/2022 9:33 PM EST Respiratory Rate 18 12/14/2022 9:23 PM EST Oxygen Saturation 95% 12/14/2022 10:16 PM EST Inhaled Oxygen Concentration - - Weight 90.7 kg (200 lb) 12/14/2022 9:23 PM EST Height 162.6 cm (5' 4 ) 12/14/2022 9:23 PM EST Body Mass Index 34.33 12/14/2022 9:23 PM EST Plan of Treatment Health Maintenance Due Date Last Done Comments Wellness Exam Medicare 1962 Hepatitis C Screening 1977 DTaP/TDaP/Td (1 - Tdap) 1978 HPV/Pap Cotest 1989 Breast Cancer Screening 1999 Cologuard 2004 Colon Cancer Screening 2004 Colonoscopy 2004 FIT 2004 Sigmoidoscopy 2004 Virtual Colonography 2004 Pneumococcal Vaccine 50+ (1 of 1 - PCV) 2009 Zoster (1 of 2) 2009 Cervical Cancer Screening 04/26/2013 Pap Smear 04/26/2013 04/26/2010 Bone Density Screening 2024 COVID-19 Vaccine (1 - 2023-2 5 season) 2024 Influenza Vaccine (Season Ended) 2025 Hepatitis B Vaccine Aged Out No longe r eligible based on patient's age to complete this topic Meningococcal B Vaccine Aged Out No l onger eligible based on patient's age to complete this topic Procedures Procedure Name Priority Date/Time Associated Diagnosis Comments CRIMINOLOGY PROFESSOR CYTOLOGY REPORT Routine 04/26/2010 5 :13 AM EDT from Last 3 Months or Most Recently Relevant to Health Maintenance Results * CRIMINOLOGY PROFESSOR CYTOLOGY REPORT (04/26/2010 5:13 AM EDT) Door Person Cytology Report PATIENT NAME:SUHAIL MALLORY Door Person Cytology Report Accession Number Collected Date/Time Received Date/Time [id number] 04/26/10 05:13 EDT 04/27/10 05:13 EDT GY Specimen Source Specimen Vag/Cerv/Endocx?: Vaginal/Cervical/E ndocervical Statement of Adequacy Satisfactory for Evaluation. Transformation Zone Absent. This is not unusual for a post-hysterectomy woman. Diagnosis NEGATIVE FOR INTRAEPITHELIAL LESION OR MALIGNANCY. Comment The Pap Smear is a screening test that aids in the detection of cervical cancer and cancer precursors. Both false positive and false negative results can occur. The test should be used at regular intervals, and positive results should be confirmed before definitive therapy. Processed using the ThinPrep Elementary Art Teacher automated cytology screening device (InvisibleCRM). Inspector And Adjuster [employer] Head: MARK 05/11/2010 Completed by: MINE Landa (Electronically signed by) 05/11/2010 [facility] 04/26/2010 5:13 AM EDT [facility] PATHOLOGY ORDERABLES Miranda taras Result [facility] [address] [place] [address] from Last 3 Months or Most Recently Relevant to Health Maintenance Insurance [place]ICARE [place] [address] [place] [id number] [employer] [facility] [place] [address] Care Teams Emergency Medcl Emt Relationship Specialty Start Date End Date Manas Jenkins [address] [place] [address] PCP - General 08/28/10
[2025-05-06 20:00] VITALS: BP 106/75; PULSE 91; O2SAT 93
--- NOTE | 2025-05-06 20:00 | HMH.EDGENADL ---
Discharge Plan Disposition Patient Disposition: Home, Self-Care Condition: Good Prescriptions Prescriptions: No Action omeprazole 20 mg capsule,delayed release(DR/EC) 20 mg PO DAILY Linzess 72 mcg capsule 72 mcg PO DAILY ipratropium-albuterol 0.5 mg-3 mg(2.5 mg base)/3 mL solution for nebulization 3 ml inhalation QID PRN (Reason: shortness of breath or wheezing) 90 Days Qty: 270 3RF promethazine 25 mg tablet 25 mg PO Q6H PRN (Reason: Nausea) oxybutynin chloride 10 mg tablet extended release 24hr 10 mg PO DAILY Qty: 90 0RF estradiol [Estrace] 0.01 % (0.1 mg/gram) cream 1 appful vaginal DAILY 30 Days Qty: 42.5 2RF Rx Instructions: Using finger technique daily x 14 days and then 3 times weekly thereafter. Trelegy Ellipta 100-62.5-25 mcg blister with device 1 inh inhalation DAILY 90 Days Qty: 90 3RF albuterol sulfate [Ventolin HFA] 90 mcg/actuation HFA aerosol inhaler 2 inh inhalation Q6H PRN (Reason: shortness of breath or wheezing) 90 Days Qty: 18 3RF spironolactone 25 mg tablet See Rx Instructions .ROUTE .COMPLEX Qty: 90 3RF Dose Instruction: TAKE 1 TABLET BY MOUTH TWICE DAILY Rx Instructions: TAKE 1 TABLET BY MOUTH TWICE DAILY mirtazapine 15 mg tablet See Rx Instructions .ROUTE .COMPLEX Qty: 30 0RF Dose Instruction: TAKE 1 TABLET BY MOUTH ONCE DAILY Rx Instructions: TAKE 1 TABLET BY MOUTH ONCE DAILY quetiapine 50 mg tablet See Rx Instructions .ROUTE .COMPLEX Qty: 30 0RF Dose Instruction: TAKE 1 TABLET BY MOUTH ONCE DAILY Rx Instructions: TAKE 1 TABLET BY MOUTH ONCE DAILY topiramate 100 mg tablet See Rx Instructions .ROUTE .COMPLEX Qty: 75 4RF Dose Instruction: TAKE 1 TABLET IN THE MORNING AND 1.5 TABLETS AT NIGHT Rx Instructions: TAKE 1 TABLET IN THE MORNING AND 1.5 TABLETS AT NIGHT Entresto 24-26 mg tablet See Rx Instructions .ROUTE .COMPLEX Qty: 90 3RF Dose Instruction: TAKE 1 TABLET BY MOUTH TWICE DAILY Rx Instructions: TAKE 1 TABLET BY MOUTH TWICE DAILY celecoxib 100 mg capsule See Rx Instructions .ROUTE .COMPLEX Qty: 60 1RF Dose Instruction: TAKE 1 CAPSULE BY MOUTH TWICE DAILY Rx Instructions: TAKE 1 CAPSULE BY MOUTH TWICE DAILY aspirin 81 mg Capsule 81 mg PO DAILY Relistor 150 mg tablet 450 mg PO DAILY Qty: 90 12RF Rx Instructions: Please take 3 tablets p.o. daily furosemide 40 mg tablet 40 mg PO BID atorvastatin 40 mg tablet 40 mg PO HS tramadol 50 mg tablet 50 mg PO DAILY carvedilol 3.125 mg tablet 3.125 mg PO DAILY famotidine 20 mg tablet 20 mg PO DAILY lorazepam 0.5 mg tablet 0.5 mg PO DAILY hydroxyzine HCl 25 mg tablet 25 mg PO DAILY gabapentin 100 mg capsule 100 mg PO DAILY duloxetine 60 mg capsule,delayed release(DR/EC) 60 mg PO DAILY cholecalciferol (vitamin D3) 50 mcg (2,000 unit) capsule 50 mcg PO DAILY ondansetron 4 mg tablet,disintegrating 4 mg PO Q6H PRN (Reason: nausea and vomiting) Qty: 10 0RF Referrals Follow up/Referrals: Manas Jenkins MD [Primary Care Provider, Medical] - See instructions Activity Restrictions/Add. Instructions Additional Instructions/Restrictions: I recommend a stool softener like MiraLAX 1 cap twice a day so that you are bowel movements are like thick pudding. I have referred you to general surgery for evaluation and ongoing care should you need surgical intervention. If you have any persistent new or worsening signs or symptoms follow-up with your PCP return to the ER as needed. Clinical Impressions Clinical Impression: Bleeding internal hemorrhoids Print Language Print Language: Iranian Discharge ED Provider: Kalia Gonzalez General Adult HPI <RICKEY Biswas - Last Filed: 05/06/25 22:20> General Chief complaint: Recheck/Abnormal Lab/Rx Stated complaint: rectal bleeding Time Seen by Provider: 05/06/25 19:59 History of Present Illness HPI narrative: Patient presents for evaluation of bright red blood per rectum. Patient states that she had a very difficult bowel movement yesterday and since then has been having frequent bright red blood per rectum. She denies any fever chills hemoptysis hematochezia melena nausea vomiting diarrhea. She has had a colonoscopy for colonic polyps previously but does not know if she has ever had bleeding hemorrhoids before. She is on aspirin Celebrex. Related Data Home Medications ?Medication ?Instructions ?Recorded ?Confirmed atorvastatin 40 mg tablet 40 mg PO HS 11/22/24 04/05/25 carvedilol 3.125 mg tablet 3.125 mg PO DAILY 11/22/24 04/05/25 cholecalciferol (vitamin D3) 50 50 mcg PO DAILY 11/22/24 04/05/25 mcg (2,000 unit) capsule duloxetine 60 mg capsule,delayed 60 mg PO DAILY 11/22/24 04/05/25 release famotidine 20 mg tablet 20 mg PO DAILY 11/22/24 04/05/25 furosemide 40 mg tablet 40 mg PO BID 11/22/24 04/05/25 gabapentin 100 mg capsule 100 mg PO DAILY 11/22/24 04/05/25 hydroxyzine HCl 25 mg tablet 25 mg PO DAILY 11/22/24 04/05/25 lorazepam 0.5 mg tablet 0.5 mg PO DAILY 11/22/24 04/05/25 tramadol 50 mg tablet 50 mg PO DAILY 11/22/24 04/05/25 aspirin 81 mg capsule 81 mg PO DAILY 12/29/24 04/05/25 promethazine 25 mg tablet 25 mg PO Q6H PRN Nausea 04/04/25 04/05/25 linaclotide 72 mcg capsule 72 mcg PO DAILY 05/05/25 05/05/25 (Linzess) omeprazole 20 mg capsule,delayed 20 mg PO DAILY 05/05/25 05/05/25 release Previous Rx's ?Medication ?Instructions ?Recorded methylnaltrexone 150 mg tablet 450 mg (3 x 150 mg) PO DAILY #90 12/29/24 (Relistor) tabs albuterol sulfate 90 mcg/actuation 2 inh inhalation Q6H PRN shortness 01/19/25 aerosol inhaler (Ventolin HFA) of breath or wheezing 90 days #18 grams fluticasone fur. 100 mcg-umeclid 1 inh inhalation DAILY 90 days #90 01/19/25 62.5 mcg-vilant 25 mcg ea inhalat.powder (Trelegy Ellipta) spironolactone 25 mg tablet See Rx Instructions .Route 03/03/25 .COMPLEX #90 tabs mirtazapine 15 mg tablet See Rx Instructions .Route 03/18/25 .COMPLEX #30 tabs quetiapine 50 mg tablet See Rx Instructions .Route 03/18/25 .COMPLEX #30 tabs topiramate 100 mg tablet See Rx Instructions .Route 03/18/25 .COMPLEX #75 tabs estradiol 0.01% (0.1 mg/gram) 1 appful vaginal DAILY 30 days 03/21/25 vaginal cream (Estrace) #42.5 grams oxybutynin chloride 10 mg 10 mg PO DAILY #90 tabs 03/21/25 tablet,extended release 24 hr sacubitril 24 mg-valsartan 26 mg See Rx Instructions .Route 03/21/25 tablet (Entresto) .COMPLEX #90 tabs ondansetron 4 mg disintegrating 4 mg PO Q6H PRN nausea and 04/13/25 tablet vomiting #10 tabs celecoxib 100 mg capsule See Rx Instructions .Route 04/22/25 .COMPLEX #60 caps ipratropium 0.5 mg-albuterol 3 mg 3 ml inhalation QID PRN shortness 05/05/25 (2.5 mg base)/3 mL nebulization of breath or wheezing 90 days #270 soln mL Allergies Allergy/AdvReac Type Severity Reaction Status Date / Time sumatriptan Allergy Severe Difficulty Verified 05/05/25 13:42 Breathing fexofenadine (FEXOFENADINE) Allergy Intermediate SICK Verified 05/05/25 13:42 amoxicillin (From AUGMENTIN) Allergy Unknown SOA Verified 05/05/25 13:42 clavulanic acid (From Allergy Unknown SOA Verified 05/05/25 13:42 AUGMENTIN) naproxen (NAPROXEN) Allergy Unknown SWELLING Verified 05/05/25 13:42 PFSH <RICKEY Biswas - Last Filed: 05/06/25 22:20> [facility] Disclaimer: The information contained in this section may have been updated after the patient was seen, as this information can be updated by other users. Medical History Anxiety and depression Arthritis Urinary tract infection History of COVID-19 Migraine History of stroke History of gastroesophageal reflux (GERD) History of anemia Insomnia COPD mixed type Oral dyskinesia Most likely secondary to prochlorperazine already discontinued by PCP Lung nodule Dyspnea on exertion Encounter for screening for malignant neoplasm of lung History of asthma Stopped smoking with greater than 30 pack year history Edema of both lower extremities Takotsubo cardiomyopathy Mediastinal lymphadenopathy Hilar lymphadenopathy Asthma exacerbation APARNA (obstructive sleep apnea) Noncompliant with CPAP treatment. Brain TIA Asthma Hyperglycemia A1c hemoglobin pending, follow-up with PCP for results. Tremor 09/08/2024: Initial good response to topiramate but worsening of tremor since last visit. Indications, possible side effects were reviewed once again with the patient and her including but not limited to nephrolithiasis, paresthesias, word finding difficulty, neuro glaucoma). APARNA (obstructive sleep apnea) Osteoarthritis She was wheelchair-bound at last appointment and currently ambulatory with a walker Hypertensive disorder Hyperlipidemia Gastroesophageal reflux disease Surgical History H/O elbow surgery LEFT History of carpal tunnel surgery of right wrist History of carpal tunnel surgery of left wrist H/O: History of arthroplasty of left shoulder H/O: hysterectomy History of cholecystectomy Family History Other Cancer 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 (Updated 05/05/25 @ 13:48 by LEESA Stevenson) Smoking Status: Never smoker second hand exposure: Yes alcohol intake: former substance use type: denies use current occupational status: disabled Travel in the last 8 weeks?: None household members: spouse housing: other marital status: current occupational exposures/hazards: No caffeine: Yes Have you lived/traveled outside [place] in past 30 days?: No Contact w/someone who lives/traveled outside [place] past 30 days?: No Exposure to someone with infectious disease in past 14 days?: No Do you have a fever (greater than 100.4 F or 38 C)?: No Have you tested positive for COVID-19?: No Exposed to someone with COVID-19 in past 14 days?: No Do you have a sore throat?: No Do you have a cough?: No Do you have any weakness?: No Do you have any diarrhea?: No Are you experiencing any unusual bleeding?: No Do you have any muscle aches/pain?: No Do you have any abdominal pain?: No Are you experiencing loss of taste or smell?: No Other Medical History Have you received the Flu Vaccine for this season: No Have you received the Pneumonia Vaccine: No <RICKEY Biswas - Last Filed: 05/06/25 22:20> ROS Obtained: Yes Systems reviewed as appropriate & no additional complaints except as documented Physical Exam <RICKEY Biswas - Last Filed: 05/06/25 22:20> General General appearance: alert and in no apparent distress Respiratory Respiratory exam: Present normal lung sounds bilaterally Cardiovascular Cardiovascular exam: Present regular rate Neurological Exam Neurological exam: Present alert and oriented X3 Medical Decision Making <RICKEY Biswas - Last Filed: 05/06/25 22:20> Medical Records Medical records reviewed: Yes I reviewed the patient's medical records. Screening: Per USPSTF and CDC recommendations, given the prevalence of disease in our region, it is our hospital?s policy to screen for HIV and viral Hepatitis for all patients aged 18 and over and those with ongoing risk factors. [place] Inquiry Pt receiving controlled substance: No Vital Signs: 05/06/25 20:00 05/06/25 20:09 05/06/25 20:14 Temperature 99.3 F 99.3 F Temperature Source Oral Oral Pulse Rate 91 H 93 H Pulse Rate [Left Radial] 93 H Respiratory Rate 18 18 Blood Pressure 106/75 L 120/79 Blood Pressure [Right Arm] 120/79 Blood Pressure Mean [Right Arm] 92 Blood Pressure Source Automatic Cuff Blood Pressure Source [Right Arm] Automatic Cuff Blood Pressure Position Sitting Blood Pressure Position [Right Arm] Sitting 02 Sat by Pulse Oximetry 93 L 95 Oxygen Delivery Method Room Air Room Air Lab Data Lab results reviewed: Yes I reviewed the patient's lab results. Medical Decision Narrative: In summary patient is a 64-year-old female who presents to the emergency department for evaluation of bright red blood per rectum. Patient is hemodynamically stable upon arrival, afebrile. Physical exam is remarkable for a well-nourished well-developed morbidly obese 64-year-old female is currently in no acute distress. Abdomen soft nontender no rebound guarding or rigidity. Bowel sounds normal active. Rectal examination reveals no visible external hemorrhoids however upon opening the anal verge small trickle of fresh blood was noted. I was able to see skin tears in visible internal hemorrhoids that were not protruding from the rectum or particularly enlarged.. Differential diagnosis includes mechanical trauma versus bleeding hemorrhoids. Initial workup with labs and imaging was considered however patient has no red flags to indicate alternative diagnosis is requiring workup thus WALTER is deferred. Given this I had a shared decision-making discussion with the patient regarding her presentation symptoms and management. I have recommended stool softener starting with MiraLAX along with sitz bath and Proctofoam or Preparation H for any pain however patient is asymptomatic currently. I have referred the patient to general surgery for ongoing management care should this continue to be a problem. Patient verbalized understanding and agreement. <Kalia Gonzalez MD - Last Filed: 05/06/25 23:24> Vital Signs: 05/06/25 20:00 05/06/25 20:09 05/06/25 20:14 Temperature 99.3 F 99.3 F Temperature Source Oral Oral Pulse Rate 91 H 93 H Pulse Rate [Left Radial] 93 H Respiratory Rate 18 18 Blood Pressure 106/75 L 120/79 Blood Pressure [Right Arm] 120/79 Blood Pressure Mean [Right Arm] 92 Blood Pressure Source Automatic Cuff Blood Pressure Source [Right Arm] Automatic Cuff Blood Pressure Position Sitting Blood Pressure Position [Right Arm] Sitting 02 Sat by Pulse Oximetry 93 L 95 Oxygen Delivery Method Room Air Room Air Medical Decision Narrative: In summary patient is a 64-year-old female who presents to the emergency department for evaluation of bright red blood per rectum. Patient is hemodynamically stable upon arrival, afebrile. Physical exam is remarkable for a well-nourished well-developed morbidly obese 64-year-old female is currently in no acute distress. Abdomen soft nontender no rebound guarding or rigidity. Bowel sounds normal active. Rectal examination reveals no visible external hemorrhoids however upon opening the anal verge small trickle of fresh blood was noted. I was able to see skin tears in visible internal hemorrhoids that were not protruding from the rectum or particularly enlarged.. Differential diagnosis includes mechanical trauma versus bleeding hemorrhoids. Initial workup with labs and imaging was considered however patient has no red flags to indicate alternative diagnosis is requiring workup thus WALTER is deferred. Given this I had a shared decision-making discussion with the patient regarding her presentation symptoms and management. I have recommended stool softener starting with MiraLAX along with sitz bath and Proctofoam or Preparation H for any pain however patient is asymptomatic currently. I have referred the patient to general surgery for ongoing management care should this continue to be a problem. Patient verbalized understanding and agreement. I was consulted by the DION, and we discussed the complexity of the problems being addressed.I approved the treatment and management plan for this patient?s care in the Emergency Department, thus performing a substantive portion of the medical decision making.Signed, Kalia Gonzalez MD [facility] Critical [facility] <RICKEY Biswas - Last Filed: 05/06/25 22:20> Critical Care Time Critical Care Time: No
--- OUTSIDE RECORDS SUMMARY | 2025-05-06 20:00 | XMS_ITS | Clinical Summary ---
Author Organization [facility] Address [address] [place] [id number] Care Team Providers Care Mud Worker Name Role Phone Manas Jenkins MD Primary Care Provider [phone] Source Comments This information has been disclosed to you from confidential records protectedfrom disclosure by state law. You shall make no further disclosure of thisinformation without the specific, written, and informed release of theindividual to whom it pertains, or as otherwise permitted by law. A generalauthorization for the release of medical or other information is not sufficientfor the purposes of therelease of HIV test results or diagnoses. [id number] Health Allergies Active Allergy Reactions Criticality Noted Date Comments Naproxen Sodium 10/14/2017 Fexofenadine 10/14/2017 Medications DULoxetine (CYMBALTA) 60 MG capsule Take 60 mg by mouth daily. Active omeprazole (PRILOSEC) 40 MG capsule Take 40 mg by mouth every morning before breakfast. Active pramipexole (MIRAPEX) 0.5 MG tablet Take 2.25 mg by mouth 3 times a day. Active furosemide (LASIX) 40 MG tablet Take 40 mg by mouth 2 times a day. Active aspirin 81 MG EC tablet Take 81 mg by mouth daily. Active loratadine (CLARITIN) 10 mg tablet Take 10 mg by mouth daily. Active triamterene-hyd rochlorothiazid e (MAXZIDE) 75-50 mg tablet Take 1 tablet by mouth daily. Active proMETHazine (PHENERGAN) 25 MG tablet Take 25 mg by mouth every 6 hours as needed for Nausea. Active potassium chloride (KLOR-CON M20) 20 MEQ tablet Take 20 mEq by mouth daily. Active atorvastatin (LIPITOR) 40 MG tablet Take 40 mg by mouth daily. Active zolpidem (AMBIEN) 10 mg tablet Take 10 mg by mouth at bedtime as needed for Sleep. Active LORazepam (ATIVAN) 1 MG tablet Take 1 mg by mouth 3 times a day as needed for Anxiety. Active ranitidine (ZANTAC) 300 MG capsule Take 300 mg by mouth daily. Active primidone (MYSOLINE) 50 MG tablet Take 50 mg by mouth 4 times a day. Active HYDROcodone-viki taminophen (NORCO) 10-325 mg per tablet Take 1 tablet by mouth every 6 hours as needed for Pain. Active proCHLORPERazin e (COMPAZINE) 10 MG tablet Take 10 mg by mouth every 6 hours as needed. Active Active Problems Problem Noted Date Diagnosed Date Mastocytosis 10/14/2017 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 Tobacco Use Types Packs/Day Years Used Date Smoking Tobacco: Former Cigarettes Smokeless Tobacco: Never Alcohol Use Standard Drinks/Week Comments No 0 (1 standard drink = 0.6 oz pur e alcohol) Comments No Sex and Gender Information Value Date Recorded Sex Assigned at Not on file Legal Sex Female 11:13 AM EST Gender Identity Not on file Sexual Orientation Not on file Last Filed Vital Signs Vital Sign Reading Time Taken Comments Blood Pressure 141/93 10/14/2017 11:09 AM EST Pulse 77 10/14/2017 11:09 AM EST Temperature - - Respiratory Rate - - Oxygen Saturation - - Inhaled Oxygen Concentration - - Weight 141.1 kg (311 lb) 10/14/2017 11:09 AM EST Height 165.1 cm (5' 5 ) 10/14/2017 11:09 AM EST Body Mass Index 51.75 10/14/2017 11:09 AM EST Plan of Treatment Not on file Insurance [facility] Care Teams Mud Worker Relationship Specialty Start Date End Date Manas Jenkins MD [address] [place] [address] PCP - General Family Medicine 10/14/17
--- OUTSIDE RECORDS SUMMARY | 2025-05-06 20:00 | XMS_ITS ---
Author Organization [facility] Care Team Providers Care Pigment And Lacquer Mixer Name Role Phone Sonrda Maria (Nona) Unavailable Unavail able Manas aJlloh Unavailable Unavailable Allergies and adverse reactions Code CodeSystem Substance Reaction Severity StartDate Concern Status 7258 RXNORM Naproxen Severe 02/26/2023 active 51876 RXNORM Fexofenadine Nausea (code- 500792722, SNOMED CT) Mild 02/26/2023 active Augmentin Severe 02/26/2023 active 723 RXNORM Amoxicillin Severe 02/26/2023 active Care Team Name Role Address Phone Organization Dates Manas Jalloh PCP [address] [place] [address], [place], [address], [facility] (Office): [facility] 02/27/2023 - 03/17/2023 Sondra Maria (Sara) [place], [address], [facility] (Office): : [facility] - [facility] 02/27/2023 - 03/17/2023 Goals Section Goals Description Status Target Date Goal is slow, gradual weight loss, 1-4#/month, closer to IBWR. Free from s/s of dehydration. Active 03/18/2023 Immunizations Immunization Status Vaccine Details Vaccine Code CodeSystem Date Notes Influenza cancelled Influenza, adjuvanted, inactivated, quadrivalent, injectable, preservative free 205 CVX created date: 03/06/2023 consent date: 03/06/2023 TB 2 Step Mantoux Skin Test completed tuberculin skin test; unspecified formulation lotNumber: [id number] expiry: 05/01/2025 Mfg: sanofi pasteur Given 0.1 ml Right Forearm intradermally Step 2 of Multi-step with next step required 98 CVX created date: 03/09/2023 consent date: 03/09/2023 administere d date: 03/07/2023 TB 2 Step Mantoux Skin Test completed tuberculin skin test; unspecified formulation lotNumber: [id number] expiry: 05/01/2025 Mfg: sanofi pasteur limited Given 0.1 ml Left Forearm intradermally Step 1 of Multi-step with next step required 98 CVX created date: 02/27/2023 consent date: 02/26/2023 administere d date: 02/26/2023 PNEUMOVAX 23 cancelled pneumococcal polysaccharide vaccine, 23 valent 33 CVX created date: 03/06/2023 consent date: 03/06/2023 Influenza High Dose cancelled Influenza, high-dose, split virus, quadrivalent, injectable, preservative free 197 CVX created date: 03/06/2023 consent date: 03/06/2023 Mental Status Section Date Assessment Total Score Description 03/17/2023 BIMS 15 cognitively int act CAM 0 No delirium ind icated PHQ-9 00 03/04/2023 BIMS 15 cognitively int act CAM 0 No delirium ind icated PHQ-9 00 Problems Problem # Description Date of onset Resolved Date Code CodeSystem Concern Status 1 ACIDOSIS, UNSPECIFIED 02/27/[address] active 2 ACUTE ON CHRONIC SYSTOLIC (CONGESTIVE) HEART FAILURE 02/27/[address] active 3 ACUTE RESPIRATORY FAILURE WITH HYPOXIA 02/27/[address] active 4 ATHEROSCLEROTIC HEART DISEASE OF [place] CORONARY ARTERY WITHOUT ANGINA PECTORIS 02/27/[address] active 5 DEPRESSION, UNSPECIFIED 02/27/[address] active 6 ESSENTIAL (PRIMARY) HYPERTENSION 02/27/[address] active 7 GASTRO-ESOPHAGEAL REFLUX DISEASE WITHOUT ESOPHAGITIS 02/27/[address] active 8 HYPERLIPIDEMIA, UNSPECIFIED 02/27/[address] active 9 MUSCLE WEAKNESS (GENERALIZED) 02/27/[address] active 10 NON-ST ELEVATION (NSTEMI) MYOCARDIAL INFARCTION 02/27/[address] active 11 OBSTRUCTIVE SLEEP APNEA (ADULT) (PEDIATRIC) 02/27/[address] active 12 OTHER SYMBOLIC DYSFUNCTIONS 02/27/[address] active 13 PNEUMONIA, UNSPECIFIED ORGANISM 02/27/[address] active 14 SEPSIS, UNSPECIFIED ORGANISM 02/27/[address] active 15 TAKOTSUBO SYNDROME 02/27/[address] active 16 UNSPECIFIED ASTHMA, UNCOMPLICATED 02/27/[address] active 17 VERY LOW LEVEL OF PERSONAL HYGIENE 02/27/[address] active Reason for Referral No Reasons for Referral Entered 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 Observation Description Start Date End Date Code Code System Current Smoking Status Tobacco smoking consumption unknown 234966586 SNOMED CT Sex Assigned At Female 1960 34020-5 [facility] Gender Identity Vital Signs Code Code System Vitals Name Values and Units Timing Information 8462-4 [facility] Blood Pressure-Diastolic Value=62 Un its=mmHg 03/17/2023 8480-6 [facility] Blood Pressure-Systolic Yynux=865 Un its=mmHg 03/17/2023 8867-4 [facility] Heart rate Value=89.0 Units=/min 08924-4 [facility] Pain Level Value=3.0 03/17/2023 9279-1 [facility] Respiratory Rate Value=18.0 Units=/m in 03/15/2023 05235-4 [facility] O2 % BldC Oximetry Value=97.0 Units= % 03/15/2023 8310-5 [facility] Body Temperature Value=98.0 Units= F 03/15/2023 03771-5 [facility] Weight Varby=693.0 Units=Lbs 8302-2 LOINC Height Value=66.0 Units=Inches 02/26/2023
--- OUTSIDE RECORDS SUMMARY | 2025-05-06 20:00 | XMS_ITS | Clinical Summary ---
Author Organization [facility] Address [address] [place] [address] Care Team Providers Care Supervisor Plate Pasting Name Role Phone Stevo Salter MD Primary Care Provider [phone] 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 Tobacco Use Types Packs/Day Years Used Date Smoking Tobacco: Never Assessed Comments Unknown Sex and Gender Information Value Date Recorded Sex Assigned at Not on file Legal Sex Female 8:54 PM EDT Gender Identity Not on file Sexual Orientation Not on file Last Filed Vital Signs Vital Sign Reading Time Taken Comments Blood Pressure 126/73 06/13/2023 5:23 PM EDT Pulse 74 06/13/2023 5:23 PM EDT Temperature - - Respiratory Rate - - Oxygen Saturation - - Inhaled Oxygen Concentration - - Weight 111 kg (245 lb) 06/13/2023 5:23 PM EDT Height 165.1 cm (5' 5 ) 06/13/2023 5:23 PM EDT Body Mass Index 40.77 06/13/2023 5:23 PM EDT Plan of Treatment Health Maintenance Due Date Last Done Comments [facility]-Bone Density Scan 1960 [facility]-Depression Screening 1959 [facility]-Infant/Child/Adol SDOH Screenings 1960 [facility]- SDOH Screenings 1977 [facility]-Adult SDOH Screenings 1977 [facility]-DTaP,Tdap,and Td Vaccine s (1 - Tdap) 1978 [facility]-Pap Smear 1980 [facility]-Cervical Cancer Screening 1989 [facility]-HPV/Cotest 1989 CT Colonography 2004 Colonoscopy 2004 FIT-DNA 2004 FIT 2004 FOBT 2004 Sigmoidoscopy 2004 [facility]-Colorectal Cancer Screening 2004 [facility]-Pneumococcal Vaccine: 50 + Years (1 of 1 - PCV) 2009 [facility]-Zoster Vaccines (1 of 2) 2009 [id number] Vaccine (1 - 20 24-25 season) 2024 [facility]-Influenza Vaccine ([place] Ended) 2025 [facility]-RSV Vaccine: 60+ Years o r (1 - 1-dose 75+ series) 2034 HPV Vaccines Aged Out No longer eligi ble based on patient's age to complete this topic [facility]-HIB Vaccines Aged Out No longer e ligible based on patient's age to complete this topic [facility]-Hepatitis A Vaccines Aged Out No longer eligible based on patient's age to complete this topic [facility]-IPV Vaccines Aged Out No longer e ligible based on patient's age to complete this topic [facility]-Rotavirus Vaccines Aged Out No lo nger eligible based on patient's age to complete this topic Insurance MEDICARE [place]ICAID-[place] Care Teams Supervisor Plate Pasting Relationship Specialty Start Date End Date Stevo Salter MD [address] [place] [address] #1 #1 [place] [id number] [facility] - General 04/06/21
[2025-05-06 20:09] VITALS: BP 120/79; PULSE 93; RESP 18; TEMP 37.4; O2SAT 95; BMI 44.9
[2025-05-06 20:14] VITALS: BP 120/79; PULSE 93; RESP 18; TEMP 37.4; O2SAT 95
== END 2025-05-06 20:24 | disposition home or self-care (01) ==
PROVIDERS: Emergency Provider Emergency Medicine; PCP Family Medicine
DX: K64.0 First degree hemorrhoids (principal); K21.9 Gastro-esophageal reflux disease without esophagitis; I25.10 Atherosclerotic heart disease of native coronary artery without angina pectoris; Z87.891 Personal history of nicotine dependence; G47.33 Obstructive sleep apnea (adult) (pediatric); I10 Essential (primary) hypertension
CPT/HCPCS: 99283

== ENCOUNTER 2025-05-25 10:23 | Emergency (ER) | payer MEDICARE, OTHER, SELFPAY ==
[2025-05-25] VITALS (38 sets, daily range): BP systolic 49–198; BP diastolic 20–131; PULSE 68–104; RESP 10–28; TEMP 37.5–37.7; O2SAT 92–100; BMI 46.0
--- OUTSIDE RECORDS SUMMARY | 2025-05-25 10:33 | XMS_ITS | Clinical Summary ---
Author Organization [facility] Address [address] [place] [address] Care Team Providers Care Market Specialist Name Role Phone Manas Jenkins MD Primary Care Provider [phone] Source Comments This information has been disclosed [...] therelease of HIV test results or diagnoses. [id number] Health Allergies Active Allergy Reactions [...] Plan of Treatment Not on file Insurance [facility] Care Teams Market Specialist Relationship Specialty Start Date End Date Manas Jenkins MD [address] [place] [address] PCP - General Family Medicine 10/14/17
--- OUTSIDE RECORDS SUMMARY | 2025-05-25 10:33 | XMS_ITS ---
Author Organization [facility] Care Team Providers Care Dairy Bar Manager Name Role Phone Sondra Maria (Nona) Unavailable Unavail able Manas Jalloh Unavailable Unavailable Allergies and adverse reactions Code CodeSystem Substance Reaction Severity StartDate Concern Status 7258 RXNORM Naproxen Severe 02/26/2023 active 14709 RXNORM Fexofenadine Nausea (code- 369716836, SNOMED CT) Mild 02/26/2023 active Augmentin Severe 02/26/2023 active 723 RXNORM Amoxicillin Severe 02/26/2023 active Care Team Name Role Address Phone Organization Dates Manas Jalloh PCP [address] [place] [address], [place], [address], [facility] (Office): [facility] 02/27/2023 - 03/17/2023 Sondra Maria ([place]) [place], [address], [facility] (Office): : [facility] - [facility] 02/27/2023 - 03/17/2023 Goals Section [...] completed tuberculin skin test; unspecified formulation lotNumber: [id number] expiry: 05/01/2025 Mfg: sanofi pasteur Given 0.1 ml Right Forearm intradermally Step 2 of Multi-step with next step required 98 CVX created date: 03/09/2023 consent date: 03/09/2023 administere d date: 03/07/2023 TB 2 Step Mantoux Skin Test completed tuberculin skin test; unspecified formulation lotNumber: [id number] expiry: 05/01/2025 Mfg: sanofi pasteur limited Given [...] Concern Status 1 ACIDOSIS, UNSPECIFIED 02/27/[address] active 2 ACUTE ON CHRONIC SYSTOLIC (CONGESTIVE) HEART FAILURE 02/27/[address] active 3 ACUTE RESPIRATORY FAILURE WITH HYPOXIA 02/27/[address] active 4 ATHEROSCLEROTIC HEART DISEASE OF [place] CORONARY ARTERY WITHOUT ANGINA PECTORIS 02/27/[address] active 5 DEPRESSION, UNSPECIFIED 02/27/[address] active 6 ESSENTIAL (PRIMARY) HYPERTENSION 02/27/[address] active 7 GASTRO-ESOPHAGEAL REFLUX DISEASE WITHOUT ESOPHAGITIS 02/27/[address] active 8 HYPERLIPIDEMIA, UNSPECIFIED 02/27/[address] active 9 MUSCLE WEAKNESS (GENERALIZED) 02/27/[address] active 10 NON-ST ELEVATION (NSTEMI) MYOCARDIAL INFARCTION 02/27/[address] active 11 OBSTRUCTIVE SLEEP APNEA (ADULT) (PEDIATRIC) 02/27/[address] active 12 OTHER SYMBOLIC DYSFUNCTIONS 02/27/[address] active 13 PNEUMONIA, UNSPECIFIED ORGANISM 02/27/[address] active 14 SEPSIS, UNSPECIFIED ORGANISM 02/27/[address] active 15 TAKOTSUBO SYNDROME 02/27/[address] active 16 UNSPECIFIED ASTHMA, UNCOMPLICATED 02/27/[address] active 17 VERY LOW LEVEL OF PERSONAL HYGIENE 02/27/[address] active Reason for Referral No Reasons for Referral Entered 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 Observation Description Start Date End Date Code Code System Current Smoking Status Tobacco smoking consumption unknown 585256888 SNOMED CT Sex Assigned At Female 1960 81520-6 [facility] Gender Identity Vital Signs Code Code System Vitals Name Values and Units Timing Information 8462-4 [facility] Blood Pressure-Diastolic Value=62 Un its=mmHg 03/17/2023 8480-6 [facility] Blood Pressure-Systolic Hntve=120 Un its=mmHg 03/17/2023 8867-4 [facility] Heart rate Value=89.0 Units=/min 94091-1 [facility] Pain Level Value=3.0 03/17/2023 9279-1 [facility] Respiratory Rate Value=18.0 Units=/m in 03/15/2023 40720-1 [facility] O2 % BldC Oximetry Value=97.0 Units= % 03/15/2023 8310-5 [facility] Body Temperature Value=98.0 Units= F 03/15/2023 32343-0 [facility] Weight Kmhif=177.0 Units=Lbs 8302-2 [facility] Height Value=66.0 Units=Inches 02/26/2023
--- OUTSIDE RECORDS SUMMARY | 2025-05-25 10:33 | XMS_ITS | Clinical Summary ---
Author Organization [facility] Address [address] [place] [address] Care Team Providers Care Back Tacker Name Role Phone Stevo Salter MD Primary Care Provider [phone] 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 Tobacco Use Types Packs/Day Years [...] 2009 UKY-Zoster Vaccines (1 of 2) 2009 [id number] Vaccine (1 - 20 24-25 season) 2024 [...] this topic Insurance MEDICARE [place] Care Teams Back Tacker Relationship Specialty Start Date End Date Stevo Salter MD [address] [place] [address] #[address] [place]IM[place] Barrientos [id number] [facility] - General 04/06/21
--- OUTSIDE RECORDS SUMMARY | 2025-05-25 10:33 | XMS_ITS | Clinical Summary ---
Author Organization [facility] Address [facility] [place] [address] Phone Care Team Providers Care Environmental Planning Engineer Name Role Phone GregoryManas harvey Blaine Primary Care Provider [phone] Allergies No known active allergies Medications No [...] - 2023-2 5 season) 2024 Influenza Vaccine (#1) 2025 Hepatitis B Vaccine Aged Out No longe r eligible based on patient's age to complete this topic Meningococcal B Vaccine Aged Out No l onger eligible based on patient's age to complete this topic Procedures Procedure Name Priority Date/Time Associated Diagnosis Comments NUTRITION COORDINATOR CYTOLOGY REPORT Routine 04/26/2010 5 :13 AM EDT from Last 3 Months or Most Recently Relevant to Health Maintenance Results * NUTRITION COORDINATOR CYTOLOGY REPORT (04/26/2010 5:13 AM EDT) Linoleum Layer Helper Cytology Report PATIENT NAME:SUHAIL MALLORY Linoleum Layer Helper Cytology Report Accession Number Collected Date/Time Received Date/Time [id number] 04/26/10 05:13 EDT 04/27/10 05:13 EDT GY [...] before definitive therapy. Processed using the ThinPrep Transformer Assembly Supervisor automated cytology screening device ([employer]). Business Risk Analyst: MARK 05/11/2010 Completed by: MINE Landa (Electronically signed by) 05/11/2010 [facility] 04/26/2010 5:13 AM EDT [facility] PATHOLOGY ORDERABLES Miranda taras Result [facility] [address] [place] [address] from Last 3 Months or Most Recently Relevant to Health Maintenance Insurance MEDICARE [place] [place] [id number] [employer] [facility] [place] [address] Care Teams Environmental Planning Engineer Relationship Specialty Start Date End Date Manas Jenkins [address] [place] [address] PCP - General 08/28/10
--- NOTE | 2025-05-25 10:42 | CT_ITS ---
PROCEDURE INFORMATION: Exam: CTA Chest With Contrast Exam date and time: 05/25/2025 1:15 PM Age: 64 years old Clinical indication: Shortness of breath TECHNIQUE: Imaging protocol: Computed tomographic angiography of the chest with contrast. Exam focused on the arteries. 3D rendering (Not supervised by radiologist): MIP and/or 3D reconstructed images were created by the technologist. Radiation optimization: All CT scans at this facility use at least one of these dose optimization techniques: automated exposure control; mA and/or kV adjustment per patient size (includes targeted exams where dose is matched to clinical indication); or iterative reconstruction. Contrast material: ISOVUE; Contrast volume: 75 ml; Contrast route: INTRAVENOUS (IV); COMPARISON: CT ANGIO CHEST PE PROTOCOL 12/17/2023 11:17 PM FINDINGS: Pulmonary arteries: No filling defects suspicious for pulmonary emboli. Aorta: Unremarkable. No aortic aneurysm. No aortic dissection. Trachea: Upper airways are clear. Lungs: Bilateral tracheobronchomalacia. Low lung volumes with bronchovascular crowding. Mild scattered subsegmental atelectasis. Small bibasilar consolidations. May represent subsegmental atelectasis versus infectious or inflammatory etiology. Pleural spaces: Trace right pleural effusion. If infection is present, may be parapneumonic. Heart: Heart size upper limits of normal. No pericardial fluid. Lymph nodes: Few mildly prominent mediastinal lymph nodes, for example mid paratracheal station node measuring 15 mm in short axis, likely reactive. No distinct hilar adenopathy. Bones/joints: Unremarkable. No acute fracture. Soft tissues: Unremarkable. IMPRESSION: 1. Mild scattered subsegmental atelectasis. Small bibasilar consolidations. May represent subsegmental atelectasis versus infectious or inflammatory etiology. 2. Bilateral tracheobronchomalacia. 3. Few mildly prominent mediastinal lymph nodes, for example mid paratracheal station node measuring 15 mm in short axis, likely reactive. No distinct hilar adenopathy. 4. Trace right pleural effusion. If infection is present, may be parapneumonic. 5. No filling defects suspicious for pulmonary emboli.
--- NOTE | 2025-05-25 10:42 | XR_ITS ---
PROCEDURE INFORMATION: Exam: XR Chest Exam date and time: 05/25/2025 2:41 PM Age: 64 years old Clinical indication: Shortness of breath; Additional info: Short of breath TECHNIQUE: Imaging protocol: Radiologic exam of the chest. Views: 1 view. COMPARISON: CT ANGIO CHEST PE PROTOCOL 05/25/2025 1:15 PM FINDINGS: Lungs: Low lung volumes with bronchovascular crowding . No focal consolidation. Pleural spaces: No pneumothorax or pleural effusion. Heart/Mediastinum: Cardiomediastinal silhouette is unremarkable for technique. Bones/joints: No acute osseous or soft tissue abnormality. IMPRESSION: Low lung volumes with bronchovascular crowding.
[2025-05-25 10:48] LABS: Hematocrit 37.2 % (37.0-47.0); Hemoglobin 11.5 g/dL (12.2-16.2); Immature Granulocytes % 0.7 %; Mean Corpuscular HGB Conc 30.9 g/dL (31.8-35.4); Mean Corpuscular Hemoglobin 29.6 pg (27.0-31.2); Mean Corpuscular Volume 95.9 fl (81-99); Nucleated Red Blood Cells % 0.7 %; Platelet Count 358 K/mm3 (142-424); Red Blood Count 3.88 M/mm3 (4.20-5.40); Red Cell Distribution Width-SD 62.0 fL; White Blood Count 28.5 K/mm3 (4.8-10.8)
--- NOTE | 2025-05-25 10:48 | ED_ITS ---
<Statement entered by Jarod Cazares MD - 05/25/25 17:22> I was consulted by the DION, and we discussed the complexity of problems being addressed. I approved the treatment and management plan for this patient's care in the emergency department, thus performing a substantial portion of the medical decision making. Patient is critically ill. She has septic shock, likely from a choledocho lithiasis possibly ascending cholangitis. Even though CT and upper quadrant ultrasound were reassuring, patient continues to be in septic shock requiring vasopressor support despite 30 cc/kg fluid resuscitation. Upon reassessment, her tissue perfusion is improved and her lactate has normalized, but still requiring vasopressor support. [facility] declined the patient. Discussed case with Dr. Hahn here, ICU unable to take her as do not have the capacity or the capability. [facility] agreed to accept the patient in his transfer to their flight team on 20 mcg/min of Levophed, otherwise stable. Jarod Cazares MD Discharge Plan Disposition Chief Complaint: Weakness Prescriptions Prescriptions: No Action omeprazole 20 mg capsule,delayed release(DR/EC) 20 mg PO DAILY Linzess 72 mcg capsule 72 mcg PO DAILY ipratropium-albuterol 0.5 mg-3 mg(2.5 mg base)/3 mL solution for nebulization 3 ml inhalation QID PRN (Reason: shortness of breath or wheezing) 90 Days Qty: 270 3RF promethazine 25 mg tablet 25 mg PO Q6H PRN (Reason: Nausea) oxybutynin chloride 10 mg tablet extended release 24hr 10 mg PO DAILY Qty: 90 0RF estradiol [Estrace] 0.01 % (0.1 mg/gram) cream 1 appful vaginal DAILY 30 Days Qty: 42.5 2RF Rx Instructions: Using finger technique daily x 14 days and then 3 times weekly thereafter. Trelegy Ellipta 100-62.5-25 mcg blister with device 1 inh inhalation DAILY 90 Days Qty: 90 3RF albuterol sulfate [Ventolin HFA] 90 mcg/actuation HFA aerosol inhaler 2 inh inhalation Q6H PRN (Reason: shortness of breath or wheezing) 90 Days Qty: 18 3RF spironolactone 25 mg tablet See Rx Instructions .ROUTE .COMPLEX Qty: 90 3RF Dose Instruction: TAKE 1 TABLET BY MOUTH TWICE DAILY Rx Instructions: TAKE 1 TABLET BY MOUTH TWICE DAILY mirtazapine 15 mg tablet See Rx Instructions .ROUTE .COMPLEX Qty: 30 0RF Dose Instruction: TAKE 1 TABLET BY MOUTH ONCE DAILY Rx Instructions: TAKE 1 TABLET BY MOUTH ONCE DAILY quetiapine 50 mg tablet See Rx Instructions .ROUTE .COMPLEX Qty: 30 0RF Dose Instruction: TAKE 1 TABLET BY MOUTH ONCE DAILY Rx Instructions: TAKE 1 TABLET BY MOUTH ONCE DAILY topiramate 100 mg tablet See Rx Instructions .ROUTE .COMPLEX Qty: 75 4RF Dose Instruction: TAKE 1 TABLET IN THE MORNING AND 1.5 TABLETS AT NIGHT Rx Instructions: TAKE 1 TABLET IN THE MORNING AND 1.5 TABLETS AT NIGHT Entresto 24-26 mg tablet See Rx Instructions .ROUTE .COMPLEX Qty: 90 3RF Dose Instruction: TAKE 1 TABLET BY MOUTH TWICE DAILY Rx Instructions: TAKE 1 TABLET BY MOUTH TWICE DAILY celecoxib 100 mg capsule See Rx Instructions .ROUTE .COMPLEX Qty: 60 1RF Dose Instruction: TAKE 1 CAPSULE BY MOUTH TWICE DAILY Rx Instructions: TAKE 1 CAPSULE BY MOUTH TWICE DAILY aspirin 81 mg Capsule 81 mg PO DAILY Relistor 150 mg tablet 450 mg PO DAILY Qty: 90 12RF Rx Instructions: Please take 3 tablets p.o. daily furosemide 40 mg tablet 40 mg PO BID atorvastatin 40 mg tablet 40 mg PO HS tramadol 50 mg tablet 50 mg PO DAILY carvedilol 3.125 mg tablet 3.125 mg PO DAILY famotidine 20 mg tablet 20 mg PO DAILY lorazepam 0.5 mg tablet 0.5 mg PO DAILY hydroxyzine HCl 25 mg tablet 25 mg PO DAILY gabapentin 100 mg capsule 100 mg PO DAILY duloxetine 60 mg capsule,delayed release(DR/EC) 60 mg PO DAILY cholecalciferol (vitamin D3) 50 mcg (2,000 unit) capsule 50 mcg PO DAILY ondansetron 4 mg tablet,disintegrating 4 mg PO Q6H PRN (Reason: nausea and vomiting) Qty: 10 0RF Referrals Follow up/Referrals: Manas Jenkins MD [Primary Care Provider, Medical] - See instructions Print Language Print Language: [place] Discharge ED Provider: Jarod Cazares HPI <Marsha Meza (ED), REGIONAL TRAINING MANAGER - Last Filed: 05/25/25 17:07> General Chief Complaint: Weakness Stated Complaint: Weakness Time Seen by Provider: 05/25/25 10:27 History of Present Illness HPI narrative: This is a 64-year-old female who was brought in via EMS after being called for a fall. EMS stated that it was a slip down to the floor. Initially her heart rate for EMS was 120 and blood pressure was 88/55 upon EMS arrival to her home. When she arrived to the ER her O2 was 77% on room air and blood pressure was 107/81. We placed patient on 4 L nasal cannula and she went up to 93%. Patient complains of bilateral leg pain and low back pain. She tells me that her doctor has told her she has arthritis this is a normal complaint for her. She was complaining of weakness, dizziness and 1 episode of vomiting yesterday. She does have COPD but wears no oxygen at home. Patient also has history of GERD, osteoarthritis, dyspnea, CAD, spinal stenosis, anxiety, obesity, sleep apnea but wears no appliance, hyperlipidemia, hypertension. Related Data Home Medications ?Medication ?Instructions ?Recorded ?Confirmed atorvastatin 40 mg tablet 40 mg PO HS 11/22/24 5 carvedilol 3.125 mg tablet 3.125 mg PO DAILY 11/22/24 04/05/25 cholecalciferol (vitamin D3) 50 50 mcg PO DAILY 04/05/25 mcg (2,000 unit) capsule duloxetine 60 mg capsule,delayed 60 mg PO DAILY 04/05/25 release famotidine 20 mg tablet 20 mg PO DAILY 11/22/2403/24 furosemide 40 mg tablet 40 mg PO BID 11/22/24 gabapentin 100 mg capsule 100 mg PO DAILY 11/22/24 hydroxyzine HCl 25 mg tablet 25 mg PO DAILY 11/22/24 0 04/05/25 lorazepam 0.5 mg tablet 0.5 mg PO DAILY 11/22/24 tramadol 50 mg tablet 50 mg PO DAILY 11/22/2403/24 aspirin 81 mg capsule 81 mg PO DAILY 12/29/2403/24 promethazine 25 mg tablet 25 mg PO Q6H PRN Nausea 03/2404/05/25 linaclotide 72 mcg capsule 72 mcg PO DAILY 05/05/25 (Linzess) omeprazole 20 mg capsule,delayed 20 mg PO DAILY 05/05/25 release Previous Rx's ?Medication ?Instructions ?Recorded methylnaltrexone 150 mg tablet 450 mg (3 x 150 mg) PO DAILY #90 12/29/24 (Relistor) tabs albuterol sulfate 90 mcg/actuation 2 inh inhalation Q6 H PRN shortness 01/19/25 aerosol inhaler (Ventolin HFA) of breath or wheezing 9 0 days #18 grams fluticasone fur. 100 mcg-umeclid 1 inh inhalation RICK Y 90 days #90 01/19/25 62.5 mcg-vilant 25 mcg ea inhalat.powder (Trelegy Ellipta) spironolactone 25 mg tablet See Rx Instructions .Route 03/03/25 .COMPLEX #90 tabs mirtazapine 15 mg tablet See Rx Instructions .Route 0 03/18/25 .COMPLEX #30 tabs quetiapine 50 mg tablet See Rx Instructions .Route 0 03/18/25 .COMPLEX #30 tabs topiramate 100 mg tablet See Rx Instructions .Route 0 03/18/25 .COMPLEX #75 tabs estradiol 0.01% (0.1 mg/gram) 1 appful vaginal DAILY 3 0 days 03/21/25 vaginal cream (Estrace) #42.5 grams oxybutynin chloride 10 mg 10 mg PO DAILY #90 tabs 02/23 07/18 tablet,extended release 24 hr sacubitril 24 mg-valsartan 26 mg See Rx Instructions . Route 03/21/25 tablet (Entresto) .COMPLEX #90 tabs ondansetron 4 mg disintegrating 4 mg PO Q6H PRN nausea and 04/13/25 tablet vomiting #10 tabs celecoxib 100 mg capsule See Rx Instructions .Route 0 04/22/25 .COMPLEX #60 caps ipratropium 0.5 mg-albuterol 3 mg 3 ml inhalation QID PRN shortness 05/05/25 (2.5 mg base)/3 mL nebulization of breath or wheezing 90 days #270 soln mL Allergies Allergy/AdvReac Type Severity Reaction Status Date / Time sumatriptan Allergy Severe Difficulty Verified 05/05/25 13:42 Breathing fexofenadine (FEXOFENADINE) Allergy Intermediate SICK Verified 05/05/25 13:42 amoxicillin (From AUGMENTIN) Allergy Unknown SOA Verified 05/05/25 13:42 clavulanic acid (From Allergy Unknown SOA Verified 05/05/25 13:42 AUGMENTIN) naproxen (NAPROXEN) Allergy Unknown SWELLING Verified 05/05/25 13:42 PFS <Marsha Meza (ED), REGIONAL TRAINING MANAGER - Last Filed: 05/25/25 17:07> PFS Disclaimer: The information contained in this section may have been updated after the patient was seen, as this information can be updated by other users. Medical History Anxiety and depression Arthritis Urinary tract infection History of COVID-19 Migraine History of stroke History of gastroesophageal reflux (GERD) History of anemia Insomnia COPD mixed type Oral dyskinesia Most likely secondary to prochlorperazine already discontinued by PCP Lung nodule Dyspnea on exertion Encounter for screening for malignant neoplasm of lung History of asthma Stopped smoking with greater than 30 pack year history Edema of both lower extremities Takotsubo cardiomyopathy Mediastinal lymphadenopathy Hilar lymphadenopathy Asthma exacerbation APARNA (obstructive sleep apnea) Noncompliant with CPAP treatment. Brain TIA Asthma Hyperglycemia A1c hemoglobin pending, follow-up with PCP for results. Tremor 09/08/2024: Initial good response to topiramate but worsening of tremor since last visit. Indications, possible side effects were reviewed once again with the patient and her including but not limited to nephrolithiasis, paresthesias, word finding difficulty, neuro glaucoma). APARNA (obstructive sleep apnea) Osteoarthritis She was wheelchair-bound at last appointment and currently ambulatory with a walker Hypertensive disorder Hyperlipidemia Gastroesophageal reflux disease Surgical History H/O elbow surgery LEFT History of carpal tunnel surgery of right wrist History of carpal tunnel surgery of left wrist H/O: History of arthroplasty of left shoulder H/O: hysterectomy History of cholecystectomy Family History Other Cancer 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 Smoking Status: Former smoker tobacco type: cigarettes second hand exposure: Yes alcohol intake: former substance use type: denies use current occupational status: disabled Travel in the last 8 weeks?: None household members: spouse housing: other marital status: current occupational exposures/hazards: No caffeine: Yes Have you lived/traveled outside US in past 30 days?: No Contact w/someone who lives/traveled outside US past 30 days?: No Exposure to someone with infectious disease in past 14 days?: No Do you have a fever (greater than 100.4 F or 38 C)?: No Have you tested positive for COVID-19?: No Exposed to someone with COVID-19 in past 14 days?: No Do you have a sore throat?: No Do you have a cough?: No Do you have any weakness?: No Do you have any diarrhea?: No Are you experiencing any unusual bleeding?: No Do you have any muscle aches/pain?: No Do you have any abdominal pain?: No Are you experiencing loss of taste or smell?: No Other Medical History Have you received the Flu Vaccine for this season: No Have you received the Pneumonia Vaccine: No <Marsha Meza (ED), REGIONAL TRAINING MANAGER - Last Filed: 05/25/25 17:07> ROS Obtained: Yes Systems reviewed as appropriate & no additional complaints except as documented Constitutional Constitutional: Reports as per HPI Physical Exam <Marsha Meza (ED), REGIONAL TRAINING MANAGER - Last Filed: 05/25/25 17:07> General General appearance: alert and in distress Head Head exam: normocephalic Eye Eye exam: Present PERRL and EOMI ENT ENT exam: Present normal oropharynx and mucous membranes moist Neck Neck exam: Present full ROM and trachea midline Respiratory Respiratory exam: Present normal lung sounds bilaterally, respiratory distress and accessory muscle use Cardiovascular Cardiovascular exam: Present normal rhythm, tachycardia, normal heart sounds, +S1 and +S2 Abdominal Exam Abdominal exam: Present soft and normal bowel sounds Extremities Exam Extremities exam: Present tenderness and normal capillary refill Neurological Exam Neurological exam: Present alert and oriented X3 Skin Skin exam: Present warm, dry and intact HEART Score <Marsha Meza (ED), REGIONAL TRAINING MANAGER - Last Filed: 05/25/25 17:07> HEART Score HEART Score assessment performed?: Yes History (anamnesis): Slightly suspicious ECG: Normal Age: >65 years Risk factors: 1-2 risk factors Troponin: </= normal limit HEART Score: 3 Procedures <Jarod Cazares MD - Last Filed: 05/25/25 12:22> Arterial Line Time Out Performed: Yes Size (Gauge): 20 Technique Used: guide wire technique Post-Procedure: line sutured into place and dry sterile dressing placed Patient Tolerated Procedure: well Complications: none Site: left Critical Care <Marsha Meza (ED), REGIONAL TRAINING MANAGER - Last Filed: 05/25/25 17:07> Critical Care Time Critical Care Time: Yes Attestation: On 05/25/25, the high probability of a clinically significant, sudden or life threatening deterioration of the following system(s) required my full and direct attention, intervention and personal management. The time I documented below is in addition to time spent performing reported procedures but includes the following listed in this critical care notation. Total Time Total Critical Care Time: 30 Medical Decision Making <Marsha Meza (ED), REGIONAL TRAINING MANAGER - Last Filed: 05/25/25 17:07> Adonay Inquiry Pt receiving controlled substance: No Vital Signs Vital Signs: 05/25/25 10:39 05/25/25 10:41 05/25/25 10:59 Temperature 99.8 F H Temperature Source Oral Pulse Rate 98 H Pulse Rate [Right Radial] 104 H Respiratory Rate 27 H 28 H Blood Pressure 107/81 L Blood Pressure [Left Arm] 107/81 L Blood Pressure Mean 88 Blood Pressure Mean [Left Arm] 89 Blood Pressure Source Blood Pressure Source [Left Arm] Automatic Cuff 02 Sat by Pulse Oximetry 93 L 93 L 92 L Oxygen Delivery Method Nasal Cannula Nasal Cannula Oxygen Flow Rate (LPM) 4 4 05/25/25 11:00 05/25/25 11:01 05/25/25 11:04 Temperature Temperature Source Pulse Rate 94 H 90 92 H Pulse Rate [Right Radial] Respiratory Rate 26 H 21 24 Blood Pressure 59/35 L 49/20 L Blood Pressure [Left Arm] Blood Pressure Mean Blood Pressure Mean [Left Arm] Blood Pressure Source Blood Pressure Source [Left Arm] 02 Sat by Pulse Oximetry 93 L 94 L 94 L Oxygen Delivery Method Oxygen Flow Rate (LPM) 05/25/25 11:05 05/25/25 11:23 05/25/25 11:28 Temperature Temperature Source Pulse Rate 93 H 79 Pulse Rate [Right Radial] Respiratory Rate 25 H 20 27 H Blood Pressure 63/36 L 73/45 L 81/47 L Blood Pressure [Left Arm] Blood Pressure Mean Blood Pressure Mean [Left Arm] Blood Pressure Source Blood Pressure Source [Left Arm] 02 Sat by Pulse Oximetry 95 94 L Oxygen Delivery Method Oxygen Flow Rate (LPM) 05/25/25 11:31 05/25/25 11:35 05/25/25 11:40 Temperature Temperature Source Pulse Rate 79 77 79 Pulse Rate [Right Radial] Respiratory Rate 24 22 23 Blood Pressure 83/50 L 84/55 L 77/54 L Blood Pressure [Left Arm] Blood Pressure Mean 60 65 60 Blood Pressure Mean [Left Arm] Blood Pressure Source Blood Pressure Source [Left Arm] 02 Sat by Pulse Oximetry 95 100 98 Oxygen Delivery Method Oxygen Flow Rate (LPM) 05/25/25 11:45 05/25/25 11:53 05/25/25 12:00 Temperature Temperature Source Pulse Rate 68 87 Pulse Rate [Right Radial] Respiratory Rate 22 22 Blood Pressure 80/54 L 198/131 H 101/60 L Blood Pressure [Left Arm] Blood Pressure Mean 61 142 68 Blood Pressure Mean [Left Arm] Blood Pressure Source Blood Pressure Source [Left Arm] 02 Sat by Pulse Oximetry 99 98 Oxygen Delivery Method Oxygen Flow Rate (LPM) 05/25/25 12:04 05/25/25 12:15 05/25/25 12:20 Temperature Temperature Source Pulse Rate 85 79 79 Pulse Rate [Right Radial] Respiratory Rate 21 20 20 Blood Pressure 91/58 L 80/57 L 101/55 L Blood Pressure [Left Arm] Blood Pressure Mean 69 62 65 Blood Pressure Mean [Left Arm] Blood Pressure Source Blood Pressure Source [Left Arm] 02 Sat by Pulse Oximetry 99 95 98 Oxygen Delivery Method Oxygen Flow Rate (LPM) 05/25/25 12:20 05/25/25 12:25 05/25/25 12:30 Temperature Temperature Source Pulse Rate 80 88 88 Pulse Rate [Right Radial] Respiratory Rate 20 20 19 Blood Pressure 98/66 L 98/66 L 94/60 L Blood Pressure [Left Arm] Blood Pressure Mean 71 66 Blood Pressure Mean [Left Arm] Blood Pressure Source Blood Pressure Source [Left Arm] 02 Sat by Pulse Oximetry 98 98 98 Oxygen Delivery Method Nasal Cannula Oxygen Flow Rate (LPM) 4 05/25/25 12:35 05/25/25 12:35 05/25/25 12:40 Temperature Temperature Source Pulse Rate 84 90 86 Pulse Rate [Right Radial] Respiratory Rate 17 17 19 Blood Pressure 96/52 L 96/58 L 91/68 L Blood Pressure [Left Arm] Blood Pressure Mean 66 73 Blood Pressure Mean [Left Arm] Blood Pressure Source Blood Pressure Source [Left Arm] 02 Sat by Pulse Oximetry 98 96 98 Oxygen Delivery Method Nasal Cannula Oxygen Flow Rate (LPM) 4 05/25/25 12:45 05/25/25 12:50 05/25/25 12:50 Temperature Temperature Source Pulse Rate 87 78 82 Pulse Rate [Right Radial] Respiratory Rate 19 19 20 Blood Pressure 98/65 L 104/66 L 104/66 L Blood Pressure [Left Arm] Blood Pressure Mean 70 78 Blood Pressure Mean [Left Arm] Blood Pressure Source Blood Pressure Source [Left Arm] 02 Sat by Pulse Oximetry 98 98 98 Oxygen Delivery Method Nasal Cannula Oxygen Flow Rate (LPM) 4 05/25/25 12:55 05/25/25 13:50 05/25/25 14:05 Temperature Temperature Source Pulse Rate 78 87 88 Pulse Rate [Right Radial] Respiratory Rate 19 18 19 Blood Pressure 107/66 L 100/63 L 108/62 L Blood Pressure [Left Arm] Blood Pressure Mean 73 Blood Pressure Mean [Left Arm] Blood Pressure Source Blood Pressure Source [Left Arm] 02 Sat by Pulse Oximetry 98 92 L 92 L Oxygen Delivery Method Nasal Cannula Nasal Cannula Oxygen Flow Rate (LPM) 4 4 05/25/25 14:20 05/25/25 14:35 05/25/25 14:50 Temperature Temperature Source Pulse Rate 82 84 80 Pulse Rate [Right Radial] Respiratory Rate 20 18 20 Blood Pressure 103/78 L 94/74 L 91/63 L Blood Pressure [Left Arm] Blood Pressure Mean Blood Pressure Mean [Left Arm] Blood Pressure Source Arterial Line Arterial Line Blood Pressure Source [Left Arm] 02 Sat by Pulse Oximetry 95 94 L 95 Oxygen Delivery Method Nasal Cannula Nasal Cannula Nasal Cannula Oxygen Flow Rate (LPM) 4 4 4 05/25/25 15:05 05/25/25 15:20 05/25/25 15:35 Temperature Temperature Source Pulse Rate 78 77 82 Pulse Rate [Right Radial] Respiratory Rate 16 20 18 Blood Pressure 97/74 L 92/68 L 100/78 L Blood Pressure [Left Arm] Blood Pressure Mean Blood Pressure Mean [Left Arm] Blood Pressure Source Arterial Line Blood Pressure Source [Left Arm] 02 Sat by Pulse Oximetry 94 L 95 95 Oxygen Delivery Method Nasal Cannula Nasal Cannula Nasal Cannula Oxygen Flow Rate (LPM) 4 4 4 05/25/25 15:50 05/25/25 16:05 05/25/25 16:20 Temperature Temperature Source Pulse Rate 80 81 83 Pulse Rate [Right Radial] Respiratory Rate 20 20 20 Blood Pressure 118/76 99/62 L 107/67 L Blood Pressure [Left Arm] Blood Pressure Mean Blood Pressure Mean [Left Arm] Blood Pressure Source Arterial Line Blood Pressure Source [Left Arm] 02 Sat by Pulse Oximetry 95 94 L 97 Oxygen Delivery Method Nasal Cannula Room Air Nasal Cannula Oxygen Flow Rate (LPM) 4 4 4 Lab Data Labs: Lab Results 05/25/25 10:40: ESR 30, PT 11.0, INR 0.99, APTT 22.6 L, C-Reactive Protein 15.5 H 05/25/25 10:41: WBC 28.5 H*, RBC 3.88 L, Hgb 11.5 L, Hct 37.2, MCV 95.9, MCH 29.6, MCHC 30.9 L, RDW 18.1 H, Plt Count 358, MPV 11.4 H, Neut % (Auto) 91.0 H, Lymph % (Auto) 0.2 L, Mcdonald % (Auto) 7.3, Eos % (Auto) 0.5, Baso % (Auto) 0.3, N eut # (Auto) 25.9 H, Lymph # (Auto) 0.1 L, Mcdonald # (Auto) 2.1 H, Eos # (Auto) 0.1, Baso # (Auto) 0.1, Total Counted 100, Neutrophils % (Manual) 88 H, L ymphocytes % (Manual) 2 L, Monocytes % (Manual) 10 H, Platelet Estimate Normal, RBC Morphology Normal, D-Dimer 4.14 H, Sodium 138, Potassium 3.4 L, Chloride 103, Carbon Dioxide 25, Anion Gap 13.4, BUN 19 H, Creatinine 1.50 H, Estimated Creat Clear 31, Estimated GFR 35 L, Est GFR ( Amer) 42 L, Glucose 165 H, Calcium 9.3, Magnesium 1.6, Total Bilirubin 3.0 H, AST 990 H*, ALT 538 H*, A lkaline Phosphatase 437 H, Troponin I 0.02, NT-Pro-B Natriuret Pep 488 H, Total Protein 7.8, Albumin 4.5, Globulin 3.3 H, Albumin/Globulin Ratio 1.4, Lipase 124 05/25/25 11:00: VBG pH 7.21 L, VBG pCO2 51.0, VBG pO2 41.1 H, VBG HCO3 19.9 L, V BG Total CO2 21.5 L, VBG O2 Saturation 66.2, VBG Base Excess -7.9 L, VBG Lactic Acid 4.6 H 05/25/25 11:38: Chlamy pneumoniae PCR Not detected, Adenovirus (PCR) Not detected, B. pertussis DNA (PCR) Not detected, Coronavirus OC43 (PCR) Not detected, Coronavirus HKU1 (PCR) Not detected, Coronavirus 229E (PCR) Not detected, SARS-CoV-2 (PCR) Not detected, Coronavirus NL63 (PCR) Not detected, Human Metapneumovir PCR Not detected, Influenza A (H1) PCR Not detected, Influ A (H1N1/09) PCR Not detected, Influenza A (H3) PCR Not detected, Influenza Type A (PCR) Not detected, Influenza Type B (PCR) Not detected, M. pneumoniae (PCR) Not detected, Parainfluenza 1 (PCR) Not detected, Parainfluenza 2 (PCR) Not detected, Parainfluenza 3 (PCR) Not detected, Parainfluenza 4 (PCR) Not detected, RSV (PCR) Not detected, Entero/Rhino (PCR) Not detected 05/25/25 13:41: Troponin I 0.04 H 05/25/25 15:15: Lactate 1.4 05/25/25 : Urine Color Yellow, Urine Appearance Clear, Urine pH 7.0, Ur Specific [place] 1.010, Urine Protein Trace, Urine Glucose (UA) Negative, Urine Ketones Negative, Urine Blood Negative, Urine Nitrate Negative, Urine Bilirubin Negative, Urine Urobilinogen 4.0, Ur Leukocyte Esterase Negative, Urine RBC None, Urine WBC 5-10, Ur Squamous Epith Cells Occasional, Urine Bacteria 2+, A cetaminophen < 10 L 05/25/25 10:41 05/25/25 10:41 Response Orders (Tests/Meds): ED MEDICATIONS Generic Name Dose Route Start Last Admin Trade Name Freq PRN Reason Stop Dose Admin Norepinephrine/Dextrose 8 mg in 250 mls @ 3.75 mls/hr 05/25/25 11:05 05/25/25 14:11 Levophed 8mg/250ml-D5w Premix IV 06/24/25 11:04 22 mcg/min .Q24H JAMES 41.25 mls/hr Protocol Infusion 2 MCG/MIN Discontinued Medications Generic Name Dose Route Start Last Admin Trade Name Yonathanq PRN Reason Stop Dose Admin Acetaminophen 1,000 mg 05/25/25 10:46 05/25/25 11:01 Acetaminophen 1,000mg/100ml Vial IV 05/25/25 10:47 1,000 mg ONCE ONE Administration Albuterol/Ipratropium 3 ml 05/25/25 10:45 05/25/25 11:30 Ipratropium/Albuterol 3 Ml Neb IH 05/25/25 10:46 3 ml ONCE ONE Administration Magnesium Sulfate 2 gm in 50 mls @ 50 mls/hr 05/25/25 10:42 05/25/25 11:02 Magnesium Sulfate 2gm/50ml Premix IV 05/25/25 11:41 50 mls/hr ONCE ONE Administration Cefepime HCl 2 gm/ Sodium 100 mls @ 200 mls/hr 05/25/25 11:06 05/25/25 12:04 Chloride IV 05/25/25 11:35 200 mls/hr ONCE ONE Administration Vancomycin/PEG/NADA/Lysine/Water 1.5 gm in 300 mls @ 150 mls/hr 05/25/25 11:30 05/25/25 12:31 Vancomycin 1.5gm/300ml (Peg) Premix IV 05/25/25 13:29 150 mls/hr ONCE ONE Administration Lactated Ringer's 500 mls @ 999 mls/hr 05/25/25 12:14 05/25/25 12:15 Lactated Ringer's 500ml IV 05/25/25 12:44 999 mls/hr .Q31M ONE Administration Sodium Chloride 1,000 mls @ 999 mls/hr 05/25/25 13:50 05/25/25 14:45 Sod Chlor 0.9% 1000ml Bag IV 05/25/25 14:50 999 mls/hr .Q1H1M ONE Administration Metronidazole 500 mg in 100 mls @ 100 mls/hr 05/25/25 13:51 05/25/25 14:49 Flagyl 500mg/100ml Ivpb IV 05/25/25 14:50 100 mls/hr ONCE ONE Administration Sodium Chloride 1,000 mls @ 999 mls/hr 05/25/25 14:46 05/25/25 15:42 Sod Chlor 0.9% 1000ml Bag IV 05/25/25 15:46 999 mls/hr .Q1H1M ONE Administration Iopamidol 75 ml 05/25/25 13:11 05/25/25 13:12 Iopamidol-370 (76%);100ml Bottle IV 05/25/25 13:12 75 ml ONCE ONE Administration Iopamidol 70 ml 05/25/25 14:01 05/25/25 14:03 Iopamidol-370 (76%);100ml Bottle IV 05/25/25 14:02 Not Given ONCE ONE Methylprednisolone Sodium Succinate 125 mg 05/25/25 10:42 05/25/25 11:02 Methylprednisolone Sod Succ 125mg Vial IV 05/25/25 10:43 125 mg ONCE ONE Administration Miscellaneous 1 each 05/25/25 11:15 Vancomycin Consult Request NOTAPPLIC 06/24/25 11:14 CONSULT PHARMACY [facility] Sodium Chloride 50 ml 05/25/25 13:11 05/25/25 13:12 0.9 % Sodium Chloride 50 Ml Vial IV 05/25/25 13:12 50 ml ONCE ONE Administration Sodium Chloride 10 ml 05/25/25 13:11 05/25/25 13:12 Sodium Chloride 0.9% 10ml Syr (Rad Only) IV 06/24/25 13:10 10 ml NEEDED PRN Administration Maintain IV Site Sodium Chloride 50 ml 05/25/25 14:01 05/25/25 14:02 0.9 % Sodium Chloride 50 Ml Vial IV 05/25/25 14:02 Not Given ONCE ONE Sodium Chloride 10 ml 05/25/25 14:01 05/25/25 14:02 Sodium Chloride 0.9% 10ml Syr (Rad Only) IV 05/25/25 14:02 Not Given ONCE ONE ORDERS Category Date Time Status CT abdomen pelvis w con Stat Cat Scan 05/25/25 11:06 Completed CTA Chest [CT angio chest PE protocol] Stat Cat Scan 05/25/25 10:42 Completed Chest XR -- portable [XR chest portable] Stat Exams 05/25/25 10:42 Completed POCUS Point of Care (ER Only) Stat Exams 05/25/25 10:47 Completed US RUQ [US abdomen limited] Stat Exams 05/25/25 13:52 Completed Acetaminophen Stat Lab 05/25/25 Completed Activated Partial Thrombo Time Stat Lab 05/25/25 10:40 Completed BNP [NT Pro Brain Natriuretic Pep.] Stat Lab 05/25/25 10:41 Completed C-Reactive Protein Stat Lab 05/25/25 10:40 Completed CBC [Complete Blood Count Auto Diff] Stat Lab 05/25/25 10:41 Completed Comprehensive Metabolic Panel Stat Lab 05/25/25 10:41 Completed D-Dimer Stat Lab 05/25/25 10:41 Completed Erythrocyte Sedimentation Rate Stat Lab 05/25/25 10:40 Completed Full Resp Panel w/COVID ([facility]) Routine Lab 05/25/25 11:38 Completed Lactic Acid Stat Lab 05/25/25 15:15 Completed Lipase Stat Lab 05/25/25 10:41 Completed Magnesium Stat Lab 05/25/25 10:41 Completed Prothrombin Time INR Stat Lab 05/25/25 10:40 Completed Trop I [Troponin I] Stat Lab 05/25/25 10:41 Completed Troponin I Q3H Lab 05/25/25 13:41 Completed Urinalysis and Microscopic Stat Lab 05/25/25 Completed Blood Culture Stat Micro 05/25/25 11:33 Received Urine Culture Stat Micro 05/25/25 Received VBG [Venous Blood Gas] Stat RT 05/25/25 11:00 Completed MDM Narrative Medical Decision Narrative: patient is a 64-year-old female presenting to the emergency department for evaluation of weakness, bilateral leg pain, dizziness and 1 episode of vomiting that started yesterday. She also arrived to the ED 77% on room air and 88/55. Patient arrived to the ED with hypotension and hypoxia on room air.. Differential diagnosis includes ACS, syncopal episode versus fall, tachycardia, COPD exacerbation, CHF exacerbation, sepsis, among others. Workup will be conducted with hematologic labs, specific imaging including CT chest and abdomen. Initial inventions include crystalloid bolus including sepsis bolus (patient received 3 L total fluid), analgesics, antibiotics. Initial workup reviewed by me hematologic labs are remarkable for elevated white count at 28.5, BUN 19 creatinine 1.50, AST 990 ALT 538, urine 2+ bacteria. Patient given several medications while here including DuoNebs, Solu-Medrol, magnesium, Levophed, vancomycin and cefepime along with Flagyl. Please see formal imaging for full radiology report. Patient also had ultrasound of her gallbladder to look for ascending cholangitis. Patient will likely need ERCP to rule this out. Dr. Cazares discussed this with who denied patient. [facility] Dr. Hahn also declined patient. He talked to who accepted patient. I talked to flight team who will be here approximately 1725 to transfer patient to the MICU bed 22. Dr. Cazares also placed an art line. Patient stable at this time for transfer to . Discussed with patient and . <Jarod Cazares MD - Last Filed: 05/25/25 12:22> Vital Signs Vital Signs: 05/25/25 10:39 05/25/25 10:41 05/25/25 10:59 Temperature 99.8 F H Temperature Source Oral Pulse Rate 98 H Pulse Rate [Right Radial] 104 H Respiratory Rate 27 H 28 H Blood Pressure 107/81 L Blood Pressure [Left Arm] 107/81 L Blood Pressure Mean 88 Blood Pressure Mean [Left Arm] 89 Blood Pressure Source Blood Pressure Source [Left Arm] Automatic Cuff 02 Sat by Pulse Oximetry 93 L 93 L 92 L Oxygen Delivery Method Nasal Cannula Nasal Cannula Oxygen Flow Rate (LPM) 4 4 05/25/25 11:00 05/25/25 11:01 05/25/25 11:04 Temperature Temperature Source Pulse Rate 94 H 90 92 H Pulse Rate [Right Radial] Respiratory Rate 26 H 21 24 Blood Pressure 59/35 L 49/20 L Blood Pressure [Left Arm] Blood Pressure Mean Blood Pressure Mean [Left Arm] Blood Pressure Source Blood Pressure Source [Left Arm] 02 Sat by Pulse Oximetry 93 L 94 L 94 L Oxygen Delivery Method Oxygen Flow Rate (LPM) 05/25/25 11:05 05/25/25 11:23 05/25/25 11:28 Temperature Temperature Source Pulse Rate 93 H 79 Pulse Rate [Right Radial] Respiratory Rate 25 H 20 27 H Blood Pressure 63/36 L 73/45 L 81/47 L Blood Pressure [Left Arm] Blood Pressure Mean Blood Pressure Mean [Left Arm] Blood Pressure Source Blood Pressure Source [Left Arm] 02 Sat by Pulse Oximetry 95 94 L Oxygen Delivery Method Oxygen Flow Rate (LPM) 05/25/25 11:31 05/25/25 11:35 05/25/25 11:40 Temperature Temperature Source Pulse Rate 79 77 79 Pulse Rate [Right Radial] Respiratory Rate 24 22 23 Blood Pressure 83/50 L 84/55 L 77/54 L Blood Pressure [Left Arm] Blood Pressure Mean 60 65 60 Blood Pressure Mean [Left Arm] Blood Pressure Source Blood Pressure Source [Left Arm] 02 Sat by Pulse Oximetry 95 100 98 Oxygen Delivery Method Oxygen Flow Rate (LPM) 05/25/25 11:45 05/25/25 11:53 05/25/25 12:00 Temperature Temperature Source Pulse Rate 68 87 Pulse Rate [Right Radial] Respiratory Rate 22 22 Blood Pressure 80/54 L 198/131 H 101/60 L Blood Pressure [Left Arm] Blood Pressure Mean 61 142 68 Blood Pressure Mean [Left Arm] Blood Pressure Source Blood Pressure Source [Left Arm] 02 Sat by Pulse Oximetry 99 98 Oxygen Delivery Method Oxygen Flow Rate (LPM) 05/25/25 12:04 05/25/25 12:15 05/25/25 12:20 Temperature Temperature Source Pulse Rate 85 79 79 Pulse Rate [Right Radial] Respiratory Rate 21 20 20 Blood Pressure 91/58 L 80/57 L 101/55 L Blood Pressure [Left Arm] Blood Pressure Mean 69 62 65 Blood Pressure Mean [Left Arm] Blood Pressure Source Blood Pressure Source [Left Arm] 02 Sat by Pulse Oximetry 99 95 98 Oxygen Delivery Method Oxygen Flow Rate (LPM) 05/25/25 12:20 05/25/25 12:25 05/25/25 12:30 Temperature Temperature Source Pulse Rate 80 88 88 Pulse Rate [Right Radial] Respiratory Rate 20 20 19 Blood Pressure 98/66 L 98/66 L 94/60 L Blood Pressure [Left Arm] Blood Pressure Mean 71 66 Blood Pressure Mean [Left Arm] Blood Pressure Source Blood Pressure Source [Left Arm] 02 Sat by Pulse Oximetry 98 98 98 Oxygen Delivery Method Nasal Cannula Oxygen Flow Rate (LPM) 4 05/25/25 12:35 05/25/25 12:35 05/25/25 12:40 Temperature Temperature Source Pulse Rate 84 90 86 Pulse Rate [Right Radial] Respiratory Rate 17 17 19 Blood Pressure 96/52 L 96/58 L 91/68 L Blood Pressure [Left Arm] Blood Pressure Mean 66 73 Blood Pressure Mean [Left Arm] Blood Pressure Source Blood Pressure Source [Left Arm] 02 Sat by Pulse Oximetry 98 96 98 Oxygen Delivery Method Nasal Cannula Oxygen Flow Rate (LPM) 4 05/25/25 12:45 05/25/25 12:50 07/02/25 12:50 Temperature Temperature Source Pulse Rate 87 78 82 Pulse Rate [Right Radial] Respiratory Rate 19 19 20 Blood Pressure 98/65 L 104/66 L 104/66 L Blood Pressure [Left Arm] Blood Pressure Mean 70 78 Blood Pressure Mean [Left Arm] Blood Pressure Source Blood Pressure Source [Left Arm] 02 Sat by Pulse Oximetry 98 98 98 Oxygen Delivery Method Nasal Cannula Oxygen Flow Rate (LPM) 4 05/25/25 12:55 05/25/25 13:50 05/25/25 14:05 Temperature Temperature Source Pulse Rate 78 87 88 Pulse Rate [Right Radial] Respiratory Rate 19 18 19 Blood Pressure 107/66 L 100/63 L 108/62 L Blood Pressure [Left Arm] Blood Pressure Mean 73 Blood Pressure Mean [Left Arm] Blood Pressure Source Blood Pressure Source [Left Arm] 02 Sat by Pulse Oximetry 98 92 L 92 L Oxygen Delivery Method Nasal Cannula Nasal Cannula Oxygen Flow Rate (LPM) 4 4 05/25/25 14:20 05/25/25 14:35 05/25/25 14:50 Temperature Temperature Source Pulse Rate 82 84 80 Pulse Rate [Right Radial] Respiratory Rate 20 18 20 Blood Pressure 103/78 L 94/74 L 91/63 L Blood Pressure [Left Arm] Blood Pressure Mean Blood Pressure Mean [Left Arm] Blood Pressure Source Arterial Line Arterial Line Blood Pressure Source [Left Arm] 02 Sat by Pulse Oximetry 95 94 L 95 Oxygen Delivery Method Nasal Cannula Nasal Cannula Nasal Cannula Oxygen Flow Rate (LPM) 4 4 4 05/25/25 15:05 05/25/25 15:20 05/25/25 15:35 Temperature Temperature Source Pulse Rate 78 77 82 Pulse Rate [Right Radial] Respiratory Rate 16 20 18 Blood Pressure 97/74 L 92/68 L 100/78 L Blood Pressure [Left Arm] Blood Pressure Mean Blood Pressure Mean [Left Arm] Blood Pressure Source Arterial Line Blood Pressure Source [Left Arm] 02 Sat by Pulse Oximetry 94 L 95 95 Oxygen Delivery Method Nasal Cannula Nasal Cannula Nasal Cannula Oxygen Flow Rate (LPM) 4 4 4 05/25/25 15:50 05/25/25 16:05 05/25/25 16:20 Temperature Temperature Source Pulse Rate 80 81 83 Pulse Rate [Right Radial] Respiratory Rate 20 20 20 Blood Pressure 118/76 99/62 L 107/67 L Blood Pressure [Left Arm] Blood Pressure Mean Blood Pressure Mean [Left Arm] Blood Pressure Source Arterial Line Blood Pressure Source [Left Arm] 02 Sat by Pulse Oximetry 95 94 L 97 Oxygen Delivery Method Nasal Cannula Room Air Nasal Cannula Oxygen Flow Rate (LPM) 4 4 4 Lab Data Labs: Lab Results 05/25/25 10:40: ESR 30, PT 11.0, INR 0.99, APTT 22.6 L, C-Reactive Protein 15.5 H 05/25/25 10:41: WBC 28.5 H*, RBC 3.88 L, Hgb 11.5 L, Hct 37.2, MCV 95.9, MCH 29.6, MCHC 30.9 L, RDW 18.1 H, Plt Count 358, MPV 11.4 H, Neut % (Auto) 91.0 H, Lymph % (Auto) 0.2 L, Mcdonald % (Auto) 7.3, Eos % (Auto) 0.5, Baso % (Auto) 0.3, N eut # (Auto) 25.9 H, Lymph # (Auto) 0.1 L, Mcdonald # (Auto) 2.1 H, Eos # (Auto) 0.1, Baso # (Auto) 0.1, Total Counted 100, Neutrophils % (Manual) 88 H, L ymphocytes % (Manual) 2 L, Monocytes % (Manual) 10 H, Platelet Estimate Normal, RBC Morphology Normal, D-Dimer 4.14 H, Sodium 138, Potassium 3.4 L, Chloride 103, Carbon Dioxide 25, Anion Gap 13.4, BUN 19 H, Creatinine 1.50 H, Estimated Creat Clear 31, Estimated GFR 35 L, Est GFR ( Amer) 42 L, Glucose 165 H, Calcium 9.3, Magnesium 1.6, Total Bilirubin 3.0 H, AST 990 H*, ALT 538 H*, A lkaline Phosphatase 437 H, Troponin I 0.02, NT-Pro-B Natriuret Pep 488 H, Total Protein 7.8, Albumin 4.5, Globulin 3.3 H, Albumin/Globulin Ratio 1.4, Lipase 124 05/25/25 11:00: VBG pH 7.21 L, VBG pCO2 51.0, VBG pO2 41.1 H, VBG HCO3 19.9 L, V BG Total CO2 21.5 L, VBG O2 Saturation 66.2, VBG Base Excess -7.9 L, VBG Lactic Acid 4.6 H 05/25/25 11:38: Chlamy pneumoniae PCR Not detected, Adenovirus (PCR) Not detected, B. pertussis DNA (PCR) Not detected, Coronavirus OC43 (PCR) Not detected, Coronavirus HKU1 (PCR) Not detected, Coronavirus 229E (PCR) Not detected, SARS-CoV-2 (PCR) Not detected, Coronavirus NL63 (PCR) Not detected, Human Metapneumovir PCR Not detected, Influenza A (H1) PCR Not detected, Influ A (H1N1/09) PCR Not detected, Influenza A (H3) PCR Not detected, Influenza Type A (PCR) Not detected, Influenza Type B (PCR) Not detected, M. pneumoniae (PCR) Not detected, Parainfluenza 1 (PCR) Not detected, Parainfluenza 2 (PCR) Not detected, Parainfluenza 3 (PCR) Not detected, Parainfluenza 4 (PCR) Not detected, RSV (PCR) Not detected, Entero/Rhino (PCR) Not detected 05/25/25 13:41: Troponin I 0.04 H 05/25/25 15:15: Lactate 1.4 05/25/25 : Urine Color Yellow, Urine Appearance Clear, Urine pH 7.0, Ur Specific [place] 1.010, Urine Protein Trace, Urine Glucose (UA) Negative, Urine Ketones Negative, Urine Blood Negative, Urine Nitrate Negative, Urine Bilirubin Negative, Urine Urobilinogen 4.0, Ur Leukocyte Esterase Negative, Urine RBC None, Urine WBC 5-10, Ur Squamous Epith Cells Occasional, Urine Bacteria 2+, A cetaminophen < 10 L Response Orders (Tests/Meds): ED MEDICATIONS Generic Name Dose Route Start Last Admin Trade Name Freq PRN Reason Stop Dose Admin Norepinephrine/Dextrose 8 mg in 250 mls @ 3.75 mls/hr 05/25/25 11:05 05/25/25 14:11 Levophed 8mg/250ml-D5w Premix IV 06/24/25 11:04 22 mcg/min .Q24H JAMES 41.25 mls/hr Protocol Infusion 2 MCG/MIN Discontinued Medications Generic Name Dose Route Start Last Admin Trade Name Freq PRN Reason Stop Dose Admin Acetaminophen 1,000 mg 05/25/25 10:46 05/25/25 11:01 Acetaminophen 1,000mg/100ml Vial IV 05/25/25 10:47 1,000 mg ONCE ONE Administration Albuterol/Ipratropium 3 ml 05/25/25 10:45 05/25/25 11:30 Ipratropium/Albuterol 3 Ml Neb IH 05/25/25 10:46 3 ml ONCE ONE Administration Magnesium Sulfate 2 gm in 50 mls @ 50 mls/hr 05/25/25 10:42 05/25/25 11:02 Magnesium Sulfate 2gm/50ml Premix IV 05/25/25 11:41 50 mls/hr ONCE ONE Administration Cefepime HCl 2 gm/ Sodium 100 mls @ 200 mls/hr 05/25/25 11:06 05/25/25 12:04 Chloride IV 05/25/25 11:35 200 mls/hr ONCE ONE Administration Vancomycin/PEG/NADA/Lysine/Water 1.5 gm in 300 mls @ 150 mls/hr 05/25/25 11:30 05/25/25 12:31 Vancomycin 1.5gm/300ml (Peg) Premix IV 05/25/25 13:29 150 mls/hr ONCE ONE Administration Lactated Ringer's 500 mls @ 999 mls/hr 05/25/25 12:14 05/25/25 12:15 Lactated Ringer's 500ml IV 05/25/25 12:44 999 mls/hr .Q31M ONE Administration Sodium Chloride 1,000 mls @ 999 mls/hr 05/25/25 13:50 05/25/25 14:45 Sod Chlor 0.9% 1000ml Bag IV 05/25/25 14:50 999 mls/hr .Q1H1M ONE Administration Metronidazole 500 mg in 100 mls @ 100 mls/hr 05/25/25 13:51 05/25/25 14:49 Flagyl 500mg/100ml Ivpb IV 05/25/25 14:50 100 mls/hr ONCE ONE Administration Sodium Chloride 1,000 mls @ 999 mls/hr 05/25/25 14:46 05/25/25 15:42 Sod Chlor 0.9% 1000ml Bag IV 05/25/25 15:46 999 mls/hr .Q1H1M ONE Administration Iopamidol 75 ml 05/25/25 13:11 05/25/25 13:12 Iopamidol-370 (76%);100ml Bottle IV 05/25/25 13:12 75 ml ONCE ONE Administration Iopamidol 70 ml 05/25/25 14:01 05/25/25 14:03 Iopamidol-370 (76%);100ml Bottle IV 05/25/25 14:02 Not Given ONCE ONE Methylprednisolone Sodium Succinate 125 mg 05/25/25 10:42 05/25/25 11:02 Methylprednisolone Sod Succ 125mg Vial IV 05/25/25 10:43 125 mg ONCE ONE Administration Miscellaneous 1 each 05/25/25 11:15 Vancomycin Consult Request NOTAPPLIC 06/24/25 11:14 CONSULT PHARMACY JAMES Sodium Chloride 50 ml 05/25/25 13:11 05/25/25 13:12 0.9 % Sodium Chloride 50 Ml Vial IV 05/25/25 13:12 50 ml ONCE ONE Administration Sodium Chloride 10 ml 05/25/25 13:11 05/25/25 13:12 Sodium Chloride 0.9% 10ml Syr (Rad Only) IV 06/24/25 13:10 10 ml NEEDED PRN Administration Maintain IV Site Sodium Chloride 50 ml 05/25/25 14:01 05/25/25 14:02 0.9 % Sodium Chloride 50 Ml Vial IV 05/25/25 14:02 Not Given ONCE ONE Sodium Chloride 10 ml 05/25/25 14:01 05/25/25 14:02 Sodium Chloride 0.9% 10ml Syr (Rad Only) IV 05/25/25 14:02 Not Given ONCE ONE ORDERS Category Date Time Status CT abdomen pelvis w con Stat Cat Scan 05/25/25 11:06 Completed CTA Chest [CT angio chest PE protocol] Stat Cat Scan 05/25/25 10:42 Completed Chest XR -- portable [XR chest portable] Stat Exams 05/25/25 10:42 Completed POCUS Point of Care (ER Only) Stat Exams 05/25/25 10:47 Completed US RUQ [US abdomen limited] Stat Exams 05/25/25 13:52 Completed Acetaminophen Stat Lab 05/25/25 Completed Activated Partial Thrombo Time Stat Lab 05/25/25 10:40 Completed BNP [NT Pro Brain Natriuretic Pep.] Stat Lab 05/25/25 10:41 Completed C-Reactive Protein Stat Lab 05/25/25 10:40 Completed CBC [Complete Blood Count Auto Diff] Stat Lab 05/25/25 10:41 Completed Comprehensive Metabolic Panel Stat Lab 05/25/25 10:41 Completed D-Dimer Stat Lab 05/25/25 10:41 Completed Erythrocyte Sedimentation Rate Stat Lab 05/25/25 10:40 Completed Full Resp Panel w/COVID ([facility]) Routine Lab 05/25/25 11:38 Completed Lactic Acid Stat Lab 05/25/25 15:15 Completed Lipase Stat Lab 05/25/25 10:41 Completed Magnesium Stat Lab 05/25/25 10:41 Completed Prothrombin Time INR Stat Lab 05/25/25 10:40 Completed Trop I [Troponin I] Stat Lab 05/25/25 10:41 Completed Troponin I Q3H Lab 05/25/25 13:41 Completed Urinalysis and Microscopic Stat Lab 05/25/25 Completed Blood Culture Stat Micro 05/25/25 11:33 Received Urine Culture Stat Micro 05/25/25 Received VBG [Venous Blood Gas] Stat RT 05/25/25 11:00 Completed
[2025-05-25 11:01] LABS: VBG HCO3 19.9 mmol/L (23-30); VBG PH 7.21 mmol/L (7.31-7.41); VBG PO2 41.1 mmol/L (28-40)
[2025-05-25] MEDS: ACETAMINOPHEN 1,000MG/100ML VIAL 1000 MG IV (11:01)
[2025-05-25] MEDS: MAGNESIUM SULFATE IN WATER 2 GM/50 ML PIGGYBACK IV (11:02)
[2025-05-25] MEDS: METHYLPREDNISOLONE SOD SUCC 125MG VIAL 125 MG IV (11:02)
[2025-05-25 11:03] LABS: Alanine Aminotransferase 538 U/L (12-78); Albumin Level 4.5 g/dl (3.5-5.0); Albumin/Globulin Ratio 1.4 (1.1-1.8); Alkaline Phosphatase 437 U/L (38-126); Anion Gap 13.4 mEq/L (5-15); Bilirubin,Total 3.0 mg/dl (0.2-1.3); Blood Urea Nitrogen 19 mg/dl (7-17); Calcium 9.3 mg/dl (8.4-10.2); Carbon Dioxide 25 mmol/L (22.0-30.0); Chloride 103 mmol/L (98-107); Creatinine Clearance Estimated 31 mL/min (50-200); Creatinine,Serum 1.50 mg/dl (0.52-1.04); Estimated Glomerular Filt Rate 35 ml/min (>60); GFR (African American) 42 ML/MIN (>60); Globulin 3.3 g/dL (1.3-3.2); Glucose 165 mg/dl (74-100); Lipase 124 U/L (23-300); Magnesium 1.6 mg/dl (1.6-2.3); Potassium 3.4 mmoL/L (3.5-5.1); Sodium 138 mmol/L (136-145); Total Protein,Serum 7.8 g/dl (6.3-8.2)
[2025-05-25 11:04] LABS: Lactate Venous 4.6 mmol/L (0.4-2.0); VBG PCO2 51.0 mmol/L (35-51)
--- NOTE | 2025-05-25 11:05 | ECG_ITS ---
APPROVED REPORT Exam: Resting ECG HR:90 bpm ECG Measurements Heart Rate 90 AXES IN 189 P 75 QRSd 102 QRS -64 QT 368 T 101 QTc 416 Conclusion SINUS RHYTHM WITH OCCASIONAL SUPRAVENTRICULAR PREMATURE COMPLEXES LOW QRS VOLTAGE IN PRECORDIAL LEADS [QRS DEFLECTION < 1.0 mV IN CHEST LEADS] PATTERN CONSISTENT WITH PULMONARY DISEASE LEFT ANTERIOR FASCICULAR BLOCK [QRS AXIS <= -45, QR IN I, RS IN II] NONSPECIFIC T-WAVE ABNORMALITY ABNORMAL ECG Electronically signed by : FRANKY EM, 05/27/2025 14:12:15
--- NOTE | 2025-05-25 11:06 | CT_ITS ---
PROCEDURE INFORMATION: Exam: CT Abdomen And Pelvis With Contrast Exam date and time: 05/25/2025 1:15 PM Age: 64 years old Clinical indication: Abdominal pain; Additional info: Sepsis TECHNIQUE: Imaging protocol: Computed tomography of the abdomen and pelvis with contrast. 3D rendering (Not supervised by radiologist): MIP and/or 3D reconstructed images were created by the technologist. Radiation optimization: All CT scans at this facility use at least one of these dose optimization techniques: automated exposure control; mA and/or kV adjustment per patient size (includes targeted exams where dose is matched to clinical indication); or iterative reconstruction. Contrast material: ISOVUE; Contrast volume: 75 ml; Contrast route: IV; COMPARISON: CT ABDOMEN PELVIS W CON 04/13/2025 3:52 PM FINDINGS: Lungs: See Pleural spaces finding. Pleural spaces: Trace right pleural effusion with overlying passive atelectasis. Mild bibasilar subsegmental atelectasis. Liver: Normal. No mass. Gallbladder and biliary ducts: Status post cholecystectomy. Intra and extrahepatic bile ducts are unremarkable.. Pancreas: Normal. No ductal dilation. Spleen: Punctate calcified granulomas in the spleen, otherwise unremarkable. Adrenal glands: Normal. No mass. Kidneys and ureters: Normal. No hydronephrosis. Stomach and bowel: No bowel obstruction or acute inflammation. Mild descending/sigmoid colonic junction diverticulosis. Evaluation limited by motion artifact in the right upper quadrant. Small duodenal diverticulum noted of the C-loop. Appendix: No evidence of appendicitis. Intraperitoneal space: No ascites, pneumoperitoneum, or drainable abscess. Vasculature: Unremarkable. No abdominal aortic aneurysm. Lymph nodes: Unremarkable. No enlarged lymph nodes. Urinary bladder: Layering excreted urine/contrast in the bladder. Mildly distended bladder. Otherwise unremarkable. Reproductive: Unremarkable as visualized. Bones/joints: Unremarkable. No acute fracture. Soft tissues: Unremarkable. IMPRESSION: 1. No bowel obstruction or acute inflammation. 2. No ascites, pneumoperitoneum, or drainable abscess. 3. Trace right pleural effusion. Mild bibasilar subsegmental atelectasis.
[2025-05-25 11:08] LABS: D-Dimer 4.14 ug/mL (0.0-0.5)
[2025-05-25 11:13] LABS: NT Pro Brain Natriuretic Pep. 488 pg/mL (0-125); Troponin I 0.02 ng/ml (0.00-0.034)
[2025-05-25 11:15] LABS: Aspartate Amino Transferase 990 U/L (14-36)
[2025-05-25] MEDS: NOREPINEPHRINE BITARTRATE/D5W 8 MG/250 ML PLAST..BAG 3.75 MG IV (11:15)
[2025-05-25 11:19] LABS: RBC Morphology Normal; Total Cells Counted 100
[2025-05-25] MEDS: IPRATROPIUM/ALBUTEROL 3 ML NEB IH (11:30)
[2025-05-25 11:40] LABS: Activated Partial Thrombo Time 22.6 seconds (22.8-30.6); INR 0.99 (0.9-1.1); Prothrombin Time 11.0 seconds (10.1-12.5)
[2025-05-25 11:41] LABS: Adenovirus,PCR Not Detected (NotDetected); Chlamydophila Pneumoniae, PCR Not Detected (NotDetected); Coronavirus 19, PCR Not Detected (NotDetected); Coronovirus HKU1,PCR Not Detected (NotDetected); Influenza A, PCR Not Detected (NotDetected); Influenza AH1, 2009 Not Detected (NotDetected); Influenza AH1, PCR Not Detected (NotDetected); Influenza AH3,PCR Not Detected (NotDetected); Influenza B, PCR Not Detected (NotDetected); Mycoplasma Pneumoniae, PCR Not Detected (NotDetected); Parainfluenza 1, PCR Not Detected (NotDetected); Parainfluenza 2, PCR Not Detected (NotDetected); Parainfluenza 3, PCR Not Detected (NotDetected); Parainfluenza 4, PCR Not Detected (NotDetected)
[2025-05-25 12:02] LABS: C-Reactive Protein 15.5 mg/L (0-4)
[2025-05-25] MEDS: CEFEPIME HCL 2 GM in 0.9 % SODIUM CHLORIDE 100 ML IV (12:04)
[2025-05-25] MEDS: RINGERS SOLUTION,LACTATED 500 ML 999 ML IV (12:15)
[2025-05-25] MEDS: VANCOMYCIN/WATER FOR INJ (PEG) 1.5 GM/300 ML PIGGYBACK IV (12:31)
[2025-05-25 13:02] LABS: Acetaminophen < 10 ug/ml (10-30)
[2025-05-25] MEDS: IOPAMIDOL-370 (76%);100ML BOTTLE 75 ML IV (13:12)
[2025-05-25] MEDS: 0.9 % SODIUM CHLORIDE 50 ML VIAL IV (13:12)
[2025-05-25] MEDS: SODIUM CHLORIDE 0.9% 10ML SYR (RAD ONLY) 10 ML IV (13:12)
--- NOTE | 2025-05-25 13:52 | US_ITS ---
PROCEDURE INFORMATION: Exam: US Abdomen, Limited; Right Upper Quadrant Exam date and time: 05/25/2025 2:17 PM Age: 64 years old Clinical indication: Abdominal pain; Additional info: Obstructive pathology, eval cbd TECHNIQUE: Imaging protocol: Real time ultrasound of the abdomen with image documentation. Limited exam focused on the right upper quadrant. COMPARISON: CT ABDOMEN PELVIS W CON 05/25/2025 1:15 PM FINDINGS: Liver: Limited views of the liver are unremarkable. Gallbladder: Gallbladder is surgically absent. Biliary ducts: Common bile duct is of normal caliber (5.4 mm). Pancreas: Visualized pancreas is unremarkable. Right kidney: Normal. No mass. No hydronephrosis. Portal venous: Portal vein is mildly dilated (1.4 mm). Patent with expected hepatopetal flow. Other findings: Limited exam due to patient body habitus. IMPRESSION: 1. Gallbladder is surgically absent. 2. Common bile duct is of normal caliber (5.4 mm). 3. Portal vein is mildly dilated (1.4 mm). Patent with expected hepatopetal flow. 4. Limited views of the liver are unremarkable.
[2025-05-25 13:55] LABS: Microscopic, Urine URINE MICROSCOPIC (MICROSCOPIC)
[2025-05-25 13:57] LABS: Bilirubin,Urine Negative (Negative); Color,Urine YELLOW (Yellow); Glucose,Urine (UA) Negative (Negative); Ketones,Urine Negative (Negative); Leukocyte Esterase,Urine Negative (Negative); PH,Urine 7.0 (5.0-8.5); Protein,Urine TRACE (Negative); Specific Gravity, Urine 1.010 (1.005-1.030); Urobilinogen,Urine 4.0 EU/dl (0.2)
[2025-05-25 14:07] LABS: Bacteria,Urine 2+ /lpf; Squamous Epithelial Cell,Urine Occasional #/hpf (0-5)
--- NOTE | 2025-05-25 14:07 | PC.NURSE ---
Called Radiology and powershared images to [facility]
[2025-05-25 14:11] LABS: Troponin I 0.04 ng/ml (0.00-0.034)
[2025-05-25] MEDS: 0.9 % SODIUM CHLORIDE 1000ML 1,000 ML 999 ML IV ×2 (14:45→15:42)
[2025-05-25] MEDS: METRONIDAZ/SOD CHL 500 MG/100 ML PIGGYBACK 100 MG IV (14:49)
--- NOTE | 2025-05-25 14:50 | PC.NURSE ---
Called [facility] for a weather check and possibe standby for the patient we are waiting on a call back.
[2025-05-25 15:03] LABS: Reflex Lactic Add Lactic Reflex
--- NOTE | 2025-05-25 15:04 | PC.NURSE ---
[facility] called and accepted. Had to call them back and advise them that we did not have an accepting they were on stand by
--- NOTE | 2025-05-25 15:10 | PC.NURSE ---
Dr Cazares called per himself via his cell phone @ approx 14:45. [facility] will call back.
--- NOTE | 2025-05-25 15:20 | PC.NURSE ---
[facility] turned us down on the transfer
--- NOTE | 2025-05-25 15:21 | PC.NURSE ---
Calling [facility] to se stinson transferring this pt.
--- NOTE | 2025-05-25 15:21 | PC.NURSE ---
Images have been powershared to per Geovanna from radiology.
--- NOTE | 2025-05-25 15:28 | PC.NURSE ---
Called they advised that they would call us back as soon as they made contact with the right service.
--- NOTE | 2025-05-25 15:55 | PC.NURSE ---
[facility] called back wanting clarification on where was wanting placement, either ICU or ED. They were informed that he wanted ICU, so they will call back.
--- NOTE | 2025-05-25 16:40 | PC.NURSE ---
[facility] on phone with MD Sage
--- NOTE | 2025-05-25 16:43 | PC.NURSE ---
Dr. Shin at accepted patient to ICU for possible septic shock.
--- NOTE | 2025-05-25 16:53 | PC.NURSE ---
[facility] called back with bed assignment and number for pt report. Marsha LANG is currently on phone with [facility] at this time.
--- NOTE | 2025-05-25 16:59 | PC.NURSE ---
[facility] accepted flight and has a 26 min ETA
--- NOTE | 2025-05-25 17:02 | PC.NURSE ---
[facility] called and they said they need a facesheet and PCS faxed over to them. I am taking them to registration now.
--- NOTE | 2025-05-25 17:10 | PC.NURSE ---
Papers were faxed.
--- NOTE | 2025-05-29 12:17 | PC.NURSE ---
pts final urine culture results faxed to ICU fax# [phone]
== END 2025-05-25 17:57 ==
PROVIDERS: Nurse Practitioner; Emergency Provider Emergency Medicine; PCP Family Medicine
DX: A41.89 Other specified sepsis (principal); R65.21 Severe sepsis with septic shock; I95.9 Hypotension, unspecified; R09.02 Hypoxemia; K83.09 Other cholangitis; J44.9 Chronic obstructive pulmonary disease, unspecified; Z87.891 Personal history of nicotine dependence
CPT/HCPCS: 0223U; 71045; 71275; 74177; 76705; 80053; 80329; 81001; 82803; 83605; 83690; 83735; 83880; 84484; 85007; 85025; 85027; 85378; 85610; 85651; 85730; 86140; 87040; 87086; 87088; 87186; 87633; 93005; 96361; 96365; 96366; 96367; 96375; 99291; J0131; J0692; J1836; J2919; J3375; J3475; J7030; J7120; Q9967

== ENCOUNTER 2025-06-17 20:36 | Emergency (ER) | payer MEDICARE, OTHER, SELFPAY ==
--- OUTSIDE RECORDS SUMMARY | 2025-05-20 16:00 | XMS_ITS | Encounter Summary ---
Author Organization [facility] Address [address] [place] [address] Care Team Providers Care Revolving Field Assembler Name Role Phone Manas Jenkins MD Primary Care Provider + Reason for Visit * Reason Comments Follow-up Hyperlipidemia Anxiety chronic low back pain Encounter Details Date Type Department Care Team (Latest Contact Info) Description 05/20/2025 4:00 PM EDT Office Visit [facility] [address] [place] [address] Manas Jenkins MD [address] [place] [address] Hypercholesterolemia (Primary Dx); Chronic right-sided [...] A/P March 2025, Xray hips March 2025, Collar Shaper Operator notes [facility] Pulmonology(Apr 2025, Ortho 2024, Gastroenterolgy Dec 2024, , and [facility] Assessment and Plan Diagnoses and all [...] against. I have recommended follow- up with [facility] orthopedics for consideration of repeat [...] persistent asthma Moderate persistent asthma. Follow-up with [facility] cardiology Polypharmacy. Patient has several medications on [...] documented in this encounter Plan of Treatment Upcoming Encounters Date Type Department Care Team (Late st Contact Info) Description 09/23/2025 3:45 PM EDT Office Visit [facility] [address] [facility] [place] [address] Manas Jenkins MD [address] [facility] [place] [address] documented as of this encounter Procedures Procedure [...] 05/20/2025 3:59 PM EDT 05/20/2025 Narrative [facility] (AMBULATORY) - 05/24/2025 8:11 AM EDT Performed at: [facility] [address] [place], [place] [id number] Ecological Modeler: Dave Escudero PhD, Phone: [phone] Patient Fasting: Y Manas Jenkins MD LAB BLOOD ORDERABLES Fin al Result Performing Organization Address City/[facility] Co de Phone Number [facility] [address] [place] [address], [place] [phone] [facility] [address] [place] [address], [place] [phone] * (ABNORMAL) Hemoglobin A1c (05/20/2025 3:59 PM EDT) [facility] Hemoglobin A1C 5.7(H) 4.8 - 5.6 % [facility] Comment: Prediabetes: 5.7 - 6.4 Diabetes: >6.4 Glycemic control for adults with diabetes: <7.0 Blood 05/20/2025 3:59 PM EDT 05/20/2025 Narrative [facility] (AMBULATORY) - 05/24/2025 8:11 AM EDT Performed at: [address] [place] [address] [place] [id number] Ecological Modeler: Dave Escudero PhD, Phone: [phone] Patient Fasting: Y Manas Jenkins MD LAB BLOOD ORDERABLES Fin al Result Performing Organization Address [facility] de Phone Number [facility] [address] [place] [address], [place] [phone] [facility] [address] [place] [address], [place] [phone] documented in this encounter Visit Diagnoses Diagnosis [...] documented as of this encounter Care Teams Revolving Field Assembler Relationship Specialty Start Date End Date Manas Jenkins MD [address] [place] [address] PCP - General Family Medicine 05/02/22 documented as of this encounter
--- OUTSIDE RECORDS SUMMARY | 2025-05-25 18:40 | XMS_ITS | Encounter Summary ---
Author Organization [facility] Address [address] [place] [address] Care Team Providers Care Steel Analyst Name Role Phone Manas Jenkins MD Primary Care Provider [phone] Source Comments This information has been disclosed [...] release of HIV test results or diagnoses. [id number] Reason for Visit * Auth/Cert (Routine) Specialty Diagnoses / Procedures Referred By Contac t Referred To Contact Intensive Care Diagnoses SEPTIC SHOCK [facility] MICU [address] [place] [address] Phone: tel: Referral ID Status Reason Start Date Expiration Date Visits Re quested Visits Authorized [id number] 1 1 Encounter Details Date Type Department Care Team (Latest Contact Info) Description 05/25/2025 6:40 PM EDT - 05/28/2025 1:38 PM EDT Hospital Encounter [facility] [address] [place] [address] Willem Shin DO [address] [place] [address] Elidu Lopez MD [address] [place] [address] Devante Kathleen MD [address] [place] [address] Mastocytosis (Primary Dx); Shock (CMS-HCC); [...] the past 12 months has th e Memoright, gas, oil, or water [employer] threatened to shut off services in your [...] any time in the past 12 m [facility], were you homeless or living in a halfway (including now)? No 05/25/2025 Comments No Sex [...] from the original note were not included. [facility] Inpatient Discharge Summary Patient: Laura Mallory Age: 64 y.o. CSN: [id number] Date of Admission: 05/25/2025 Date of Discharge: 05/28/2025 Attending Physician: No att. providers found Primary Care Physician: MANAS JENKINS MD Diagnoses Present on Admission Past Medical History: Diagnosis Date Acute non-ST segment elevation myocardial infarction ([facility]) 02/26/2023 Anxiety Atherosclerosis of coronary artery without angina pectoris 02/26/2023 COPD (chronic obstructive pulmonary disease) [place] Heart failure with improved ejection fraction (HFimpEF) ([facility]) Stress-induced cardiomyopathy 02/26/2023 Discharge Diagnoses Active Hospital Problems Diagnosis Date Noted Septic shock, resolved [A41.9, R65.21] 05/25/2025 Morbid obesity ([facility]) [E66.01] 05/27/2025 Pneumonia of both lower lobes due to infectious organism [J18.9] 05/27/2025 Elevated LFTs [R79.89] 05/27/2025 Simple chronic bronchitis ([facility]) [J41.0] 05/27/2025 APARNA (obstructive sleep apnea) [G47.33] 05/27/2025 Acute respiratory failure with hypoxia ([facility]) [J96.01] 05/27/2025 Acute metabolic encephalopathy [G93.41] 05/27/2025 HFimpEF [I50.22] 05/27/2025 Opioid-induced constipation [K59.03, T40.2X5A] 05/27/2025 Chronic back+knee pain with R-sided sciatica [M54.9, G89.29] 05/27/2025 Coronary artery disease involving united keetoowah coronary artery of united keetoowah heart without angina pectoris [I25.10] 02/26/2023 Gastroesophageal reflux disease without esophagitis [K21.9] 05/02/2022 Chronic anxiety [F41.9] 05/02/2022 Resolved Hospital Problems Diagnosis Date Noted Date Resolved Acute kidney injury ([facility]) [N17.9] 05/27/2025 05/27/2025 Operations/Procedures Performed (include dates) [...] Trelegy Ellipta 100-62.5-25 mcg Dsdv Generic drug: ctjbfornghd-xgzzmiwun-kigvmztx Inhale 1 puff into the lungs daily. Refills: 0 * This list has 2 medication(s) that are the same as other medications prescribed for you. Read thedirections carefully, and ask your doctor or other care provider to review them with you. Where to Get Your Medications These medications were sent to [facility] [address] [place] [id number] Hours: Friday - Friday: 8:00AM - 6:00PM [...] dx on noct. CPAP/BiPAP), direct admission to [facility] from [facility] with septic shock and elevated liver enzymes. Hospital Course Active Hospital Problems Diagnosis Date Noted Septic shock, resolved [A41.9, R65.21] 05/25/2025 Morbid obesity ([facility]) [E66.01] 05/27/2025 Pneumonia of both lower lobes due to infectious organism [J18.9] 05/27/2025 Elevated LFTs [R79.89] 05/27/2025 Simple chronic bronchitis ([facility]) [J41.0] 05/27/2025 APARNA (obstructive sleep apnea) [G47.33] 05/27/2025 Acute respiratory failure with hypoxia ([facility]) [J96.01] 05/27/2025 Acute metabolic encephalopathy [G93.41] 05/27/2025 HFimpEF [I50.22] 05/27/2025 Opioid-induced constipation [K59.03, T40.2X5A] 05/27/2025 Chronic back+knee pain with R-sided sciatica [M54.9, G89.29] 05/27/2025 Coronary artery disease involving united keetoowah coronary artery of united keetoowah heart without angina pectoris [I25.10] 02/26/2023 Gastroesophageal reflux disease without esophagitis [K21.9] 05/02/2022 Chronic anxiety [F41.9] 05/02/2022 Resolved Hospital Problems Diagnosis Date Noted Date Resolved Acute kidney injury ([facility]) [N17.9] 05/27/2025 05/27/2025 #Septic shock due to [...] intermittent BRB per rectum for 1 month BRAILLE TYPIST, no hematochezia noted since admission. Last BM BRAILLE TYPIST. - Resume home Linzess - Miralax BID, [...] Home Health Follow-Up Appointments No future appointments. [facility] [address] [place] [id number] Medical Decision Making: Discharge >30 minutes, [id number]: Total time personally spent today, including wydi-er-aump with patient and/or caregiver(s), as well as ezq-uskr-uz-face time spent in care coordination, consultation,reviewing records, and documentation was 40 minutes. Signed: DEVANTE KATHLEEN MD 05/28/2025, 1:59 PM [1] Allergies Allergen Reactions Aleve [Naproxen Sodium] Cristina [Fexofenadine] * Ant Dominguez RN - 05/28/2025 11:26 AM EDT [facility] Care Management Discharge Summary Patient name: Laura Mallory Patient : 1960 Age: 64 y.o. Gender: female Patient emergency contact: Extended Emergency Contact Information Primary Emergency Contact: ShawneeAdal Address: [address] [place] [address] Relation: Spouse Attending provider: Devante Kathleen MD Primary care physician: MANAS JENKINS MD The MD has indicated that the patient is ready for discharge. Laura Mallory was [facility] and [facility] at [facility] [phone] . The patient will be transported by [...] Services at Home post discharge: Home Health [facility] Name/Phone # post discharge: [facility] [phone] Home Health Services Types at Discharge: PT/OT/POTATO CHIP MAKER Ant Dominguez RN [phone] documented in this encounter Discharge Instructions * Discharge Instructions* Lan Jacobs - 05/28/2025 12:23 PM EDT Thank you for choosing [facility]! You were treated for septic shock. Please [...] that have not beenscheduled yet, when our wound care specialist is able to schedule them (usually within [...] Daily Progress Note Patient: Laura Mallory Room: [place] [address] Code Status: Full Code Background / Hospital [...] hospital on 05/25/2025 as adirect admission from [facility] with shock and elevated liver enzymes. [...] (60-65%) later in 2022; non-obstructiveCAD on remote [facility]. No sx of ACS. EKG low voltage [...] lipase wnl # Opiate-induced constipation Last BM BRAILLE TYPIST. - Hold home Linzess - Start MiraLAX [...] hypoperfusion injury. S/p 1 liter Normosol at [facility] + 1.5 liters crystalloid at OSH - [...] Replete electrolytes PRN. - Nutrition: NPO - POTATO CHIP MAKER eval: consult: not indicated at this time. [...] Admission Diagnosis: SEPTIC SHOCK Date: 05/26/2025 Room: [place] [address] Reviewed Pertinent hospital course: Yes Hospital Course [...] Pt Will be alert and oriented: x4 Alf Goal : Pt will tolerate a bathing assessment. terminal carman goal to be met in: 2 weeks [...] Date Acute non-ST segment elevation myocardial infarction ([facility]) 02/26/2023 Anxiety Atherosclerosis of coronary artery without angina pectoris 02/26/2023 COPD (chronic obstructive pulmonary disease) ([facility] Heart failure with improved ejection fraction (HFimpEF) ([facility]) Stress-induced cardiomyopathy 02/26/2023 Past Surgical History Past Surgical History: Procedure Laterality Date SECTION CHOLECYSTECTOMY HYSTERECTOMY [1] Patient Active Problem List Diagnosis Mastocytosis Shock Chronic anxiety Chronic diastolic (congestive) heart failure ([facility]) Gastroesophageal reflux disease without esophagitis * Juliana Andrea, PT - 05/26/2025 3:52 PM EDT Physical Therapy Physical Therapy Initial Assessment Name: Laura Mallory : 1960 Attending Physician: Eliud Lopez MD Admission Diagnosis: SEPTIC SHOCK Date: 05/26/2025 Room: [place] [address] Reviewed Pertinent hospital course: Yes Hospital Course [...] Long-term goal to be met by: 06/10/25 Hydropress Operator Goal : Pt will ascend/descend 5 stairs [...] Date Acute non-ST segment elevation myocardial infarction ([facility]) 02/26/2023 Anxiety Atherosclerosis of coronary artery without angina pectoris 02/26/2023 COPD (chronic obstructive pulmonary disease) ([facility]) Heart failure with improved ejection fraction (HFimpEF) ([facility]) Stress-induced cardiomyopathy 02/26/2023 Past Surgical History Past Surgical History: Procedure Laterality Date SECTION CHOLECYSTECTOMY HYSTERECTOMY [1] Patient Active Problem List Diagnosis Mastocytosis Shock Chronic anxiety Chronic diastolic (congestive) heart failure ([facility]) Gastroesophageal reflux disease without esophagitis * Duncan Pulido - 05/26/2025 12:10 PM EDT My initial visit with this patient and family. Just came here yesterday. Her was at bedside. They are from the [facility] and she was air lifted here. She has some kind of infection but don't know where it is located. More tests on her. Provided pastoral presence, emotional and spiritual support, and prayer. Please page our service at [phone] as needs arise for patient and/or family.Mars Lopez. * Willem hSin DO - 05/26/2025 6:56 AM EDT MICU [...] Daily Progress Note Patient: Laura Mallory Room: [place] [address] Code Status: Full Code Background / Hospital [...] hospital on 05/25/2025 as adirect admission from [facility] with shock and elevated liver enzymes. [...] (60-65%) later in 2022; non-obstructiveCAD on remote [facility]. No sx of ACS. EKG low voltage [...] lipase wnl # Opiate-induced constipation Last BM BRAILLE TYPIST. - Hold home Linzess - Start MiraLAX [...] hypoperfusion injury. S/p 1 liter Normosol at [facility] + 1.5 liters crystalloid at OSH - [...] Replete electrolytes PRN. - Nutrition: NPO - POTATO CHIP MAKER eval: consult: not indicated at this time. [...] This was an initial visit initiated by [facility] spiritual care consult to provide individual patient care. The visit was < 15 minutes and the patient's willingness to receive mortgage loan underwriter care is unknown at this time. Patient was asleep. Unable to determine needs at this time. Chaplains can be paged at [phone] if additional needs develop. Leonard Echevarria Jr., MDiv, [facility] Staff Hog Stomach Preparer [place] [address] Office [phone] Pager [phone] * Eliud Lopez MD - 05/25/2025 9:18 [...] 30-40%->60-65%), COPD/asthma? HLD, anxiety, lumbago whopresented to [facility] w/ c/f septic shock and transaminitis. Has felt off for several days w/ nausea and occasional vomiting, abdominal pain, no diarrhea. Transferred to [facility] for further mgmt. BP 114/82 Pulse 66 [...] update: To be updated by house staff [place] Consent: pending PT/OT: ordered Med list reviewed: [...] Blaine Whitlock - 05/25/2025 8:55 PM EDT [facility] Spiritual Care PATIENT NAME: Laura Mallory ROOM:[place] [address] Roman Catholic Affiliation:No cheondoism on file Pt/family unavailable during attempt to visit. Spiritual care to re-attempt visit at a later time. Please page our service at [phone] as needs arise for patient and/or family. documented in this encounter H&P Notes * Audi Yates MD - 05/27/2025 12:56 PM EDT [facility] Internal Medicine - Transfer Acceptance Note [...] dx on noct. CPAP/BiPAP), direct admission to [facility] from [facility] with shock and elevated liver enzymes. [...] for now HFimpEF Coronary artery disease involving united keetoowah coronary artery of united keetoowah heart without angina pectoris See MICU notes [...] PRN Opioid-induced constipation Intermittent BRBPR 1 month BRAILLE TYPIST. - Hold home linzess resume upon DC [...] PM EDT Hospital Medicine Attending Supervision Note [facility] // [facility] Laura Mallory was seen 05/27/25 on rounds [...] Management or Test Interpretation with: spoke to jewelry bearing maker, discussed possibility of cholangitis or pneumonia for [...] are as follows: Principal Problem: Septic shock ([facility]) Active Problems: Coronary artery disease involving united keetoowah coronary artery of united keetoowah heart without angina pectoris Chronic anxiety Gastroesophageal reflux disease without esophagitis Morbid obesity ([facility]) Pneumonia of both lower lobes due to infectious organism Acute kidney injury ([facility]) Elevated LFTs Simple chronic bronchitis ([facility]) APARNA (obstructive sleep apnea) Acute respiratory failure with hypoxia ([facility]) Acute metabolic encephalopathy #Septic shock: #Bilateral pneumonia: [...] another specialty or practice, other licensed professional (PT/OT/POTATO CHIP MAKER/RT), or a non-medical community professional: jewelry bearing maker as above Labs reviewed (1 pt each): CBC, BMP, lactate, culture of blood Review of notes from a different specialty or different practice: ICU, hepatology notes DEVANTE KATHLEEN MD Attending Physician Division [facility] Department of Internal Medicine Pager ID: [phone] 2:52 PM, 05/27/2025 * Cookie Abdul MD - 05/25/2025 9:18 PM EDT Department of Internal Medicine MICU History & Physical Laura Mallory Location: [place] [address] MICU admission date: 05/25/2025 Attending physician: Eliud Lopez MD Chief Concern Shock ([facility]) History of Presenting Illness Laura Mallory is a 64 y.o. female with h/o HFimpEF (LV EF julian 30-40% in 02/2023 in the setting of Takotsubo cardiomyopathy, most recently 60-65% in 05/2023), nonobstructive CAD, COPD (baseline room air), GERD, osteoarthritis, anxiety, chronic back pain, chart diagnosis of APARNA with no home nocturnalCPAP/BiPAP, who presents as a direct admission from [facility] with shock and elevated liver enzymes. History provided by patient and spouse. [place] weak and lightheaded this morning and had [...] Date Acute non-ST segment elevation myocardial infarction ([facility]) 02/26/2023 Anxiety Atherosclerosis of coronary artery without angina pectoris 02/26/2023 COPD (chronic obstructive pulmonary disease) ([facility] Heart failure with improved ejection fraction (HFimpEF) ([facility]) Stress-induced cardiomyopathy 02/26/2023 Past Surgical History: Procedure Laterality Date SECTION CHOLECYSTECTOMY HYSTERECTOMY History reviewed. No pertinent family history. 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 Tobacco Use Smoking status: Former Types: Cigarettes Smokeless tobacco: Never Tobacco comments: Former 2 PPD cigarette smoker, quit ~2004 Substance Use Topics Alcohol use: No Allergies[1] Medications Home medications: Reviewed and reconciled in [facility]. Inpatient medications: Scheduled: [START ON 05/26/2025] aspirin [...] Daily 0900 Continuous: PERIPHERAL norepinephrine Stopped (05/25/25 2068) PRN:[START ON 05/26/2025] acetaminophen, albuterol, dextrose 10% [...] is a 64 y.o. female with Shock ([facility]). Neurology / Pain / Sedation # Chronic [...] (60-65%) later in 2022; non-obstructiveCAD on remote [facility]. No sx of ACS. EKG low voltage [...] injury. - S/p 1 liter Normosol at [facility] + 1.5 liters crystalloid at OSH - [...] panel, INR # Opiate-induced constipation Last BM BRAILLE TYPIST. - Hold home Linzess - Start MiraLAX [...] This note was produced with the assistance [employer] dictation software. As a result, errors may [...] this encounter Consult Notes * Misty Silveira CCC-POTATO CHIP MAKER - 05/27/2025 10:56 AM EDT Speech Language Pathology Clinical Swallow Assessment Name: Laura Mallory : 1960 Attending Physician: Willem Shin DO Admission Diagnosis: SEPTIC SHOCK Date: 05/27/2025 Reviewed Pertinent hospital course: Yes Hospital Course POTATO CHIP MAKER: Pt is a 64YOF admitted to [facility] 05/25/2025 from [facility] w/ shock & elevated liver enzymes. PMHx significant for Takotsubo cardiomyopathy, nonobstructive CAD, COPD (baseline RA), GERD, osteoarthritis, anxiety, chronic back pain, APARNA (no CPAP/BiPAP), & former smoker. Imaging: Chest xray 05/25/2025: Streaky left basilar airspace disease. Right lung is grossly clear. POTATO CHIP MAKER Hx: No previous POTATO CHIP MAKER services at [facility]. Assessment: Patient presents with increased risk of [...] pt has difficulty following commands during [facility] & [facility]; per , this is not normal for her as she is typically sharp as a tack . noticed this change in cognition just since hospitalization. POTATO CHIP MAKER encouraged pt/family to reach out to medical team should mentation not improve w/in the next few days & POTATO CHIP MAKER can assess cognition at that time. Pt/ voiced understanding. Medical team notified of pt's UE jerky movements during self-feeding attempts as well. Plan/Recommendation: - Diet: Regular (IDDSI 7) with Thin Liquids (IDDSI 0) - Medication Administration: whole with liquid - POTATO CHIP MAKER while inpatient: 1-2x follow-up - POTATO CHIP MAKER services after discharge:pending pt's performance Orientation: Person: [...] educated on, Family educated on, role of POTATO CHIP MAKER, current POC, swallowing anatomy & physiology, safe [...] $Clinical Swallow: 1 Procedure Misty Silveira MS, CCC-POTATO CHIP MAKER Speech-Language Pathology Rehabilitation Services Patient Class Inpatient * Stevie Hernandez MD - 05/26/2025 5:06 PM EDTAssociated Order(s): IP CONSULT TO LIVER [facility] HEPATOLOGY CONSULT NOTE Referring Physician: Eliud Lopez MD Consult Attending: Joseph 05/26/2025 5:06 PM Reason for Consult: elevated liver enzymes Laura Mallory is a 64 y.o. female with heart failure in setting of Takotsubo cardiomyopathy, CAD, COPD, s/p CCY who was transferred from [facility] for further evaluation of shock and abnormal liver enzymes. Initially experienced abdominal pain, cramping RUQ pain, nausea, vomiting for about 1 w [place]. At outside facility, she was hypoxic, hypotensive, and required levophed. Labs notable for wbc28.5, AST 990, ALT 538, Tbili 3, alk phos 437. RUQ US with surgically absent GB and mildly dilated portal vein without biliary ductal dilatation. CT abdomen/pelvis demonstrated a normal liver, unremarkable intra- and extra-hepatic bile ducts, normal pancreas. She was given vancomycin, cefepime, andflagyl and transferred to [facility]. Pressors were able to be weaned. Liver enzymes with improvement. INR 1.1. Denies prior history of liver disease. No significant alcohol consumption. Problem List Principal Problem: Shock History Past Medical History: Diagnosis Date Acute non-ST segment elevation myocardial infarction (CMS-HCC) 02/26/2023 Anxiety Atherosclerosis of coronary artery without angina pectoris 02/26/2023 COPD (chronic obstructive pulmonary disease) ([facility]) Heart failure with improved ejection fraction (HFimpEF) ([facility]) Stress-induced cardiomyopathy 02/26/2023 Past Surgical History: Procedure [...] mometasone 220 mcg/puff 1 puff RT Daily Cookie Abdul MD [...] COPD, s/p CCY who was transferred from [facility] for further evaluation of shock and [...] team Plan to be discussed with Dr. Ruzi, recommendations final after attending attestation. Stevie Hernandez [...] EDTAssociated Order(s): IP CONSULT TO NUTRITION SERVICES [facility] Medical Nutrition Therapy Reason(s) for Completion: [...] hospital on 05/25/2025 as adirect admission from [facility] with shock and elevated liver enzymes. [...] Scale Score: 16 GI: Last BM Date: (BRAILLE TYPIST) Problem List[1] Past Medical History: Diagnosis Date Acute non-ST segment elevation myocardial infarction (CMS-HCC) 02/26/2023 Anxiety Atherosclerosis of coronary artery without angina pectoris 02/26/2023 COPD (chronic obstructive pulmonary disease) ([facility]) Heart failure with improved ejection fraction (HFimpEF) ([facility]) Stress-induced cardiomyopathy 02/26/2023 Scheduled Meds: aspirin 81 [...] access to food: none noted Food Allergies/Intolerances: [facility] Cultural Requests: None 64 y.o. Female Ht Readings from Last 1 Encounters: 05/25/25 5' 5 (1.651 m) Wt Readings from Last 1 Encounters: 05/26/25 (!) 271 lb 13.2 oz (123.3 kg) Body mass index is 45.23 kg/m??. BMI Category: Class 3 (40.00 - and above) BMI [place] Body Weight: 125 lb (56.8 kg) +/- 10% Wt Readings from Last 25 Encounters: 05/26/25 (!) 271 lb 13.2 oz (123.3 kg) 10/14/17 (!) 311 lb (141.1 kg) Weight Change: limited weight hx Estimated Nutrition Needs: Needs based On: 56.8 kg IBW Kcals/day: 0812-6627 (22-25 kcal/kg) Protein g/day: 114 (2 g/kg) [...] Physician: Advance diet as medically feasible, consider POTATO CHIP MAKER eval given reports of difficulty chewing/swallowing. Continue to monitor diet changes, weights and nutrition related labs. Nona Goodson RD, LD Clinical Dietitian Contact via Secure Epic Chat [1] Patient Active Problem List Diagnosis Mastocytosis Shock Chronic anxiety Chronic diastolic (congestive) heart failure ([facility]) Gastroesophageal reflux disease without esophagitis * Holly [...] Product Type: Medicare / Secondary Payor: [facility]/[employer] [place] [employer] Functional Assessment Functional [...] follow by a therapist who is a CRIME SCENE SPECIALIST. Spouse did not remember her name. Patient [...] independent with her ADLs. Both spouse and ugyhznfy-[id number]-jqr is available to assist patient if needed. [...] No Status & Connection to [facility] Services Status & Connection to [place] Services Are you a ?: No Support Systems Emergency contact: Extended Emergency Contact Information Primary Emergency Contact: Adal Mallory Address: [address] [place] Relation: Spouse Support Systems Legal Status: (Spouse stated patient does not have a HCPOA Document [facility] CLINIC. Patient's spouse is her CARMEN Mallory ([phone]).) Name of Guardian/POA/ Payee and Phone Number: Spouse stated patient does not have a HCPOA Document on file at [facility]. Patient's spouse is her CARMEN Mallory ([phone]). Primary Caregiver: Spouse Caregiver name/phone number: Patient's spouse is her CARMEN Mallory ([phone]). Times of available support: Total 24/7 hands on (add comment) Marital Status: Number of children and their names: Two adult children Relative Search Completed: No Demographics Correct:: Yes Expected Discharge Disposition: Home Next of Kin: Patient's spouse is her CARMEN Mallory ([phone]). Next of Kin Relationship: Spouse Next of Kin Phone Number: Patient's spouse is her CARMEN Mallory ([phone]). Assessment Information Obtained From:: Spouse Other Pertinent [...] follow by a therapist who is a CRIME SCENE SPECIALIST. Spouse did not remember her name. Patient is currently being managed by her therapist, there are no new consults. Spouse stated patient is independent with her ADLs. Both spouse and eyygjgjv-ck-usk are available to assist patient if needed. The family are able to provide 24/7 support. Spouse stated patient does not have a HCPOA Document on file at [facility]. Patient's spouse is her CARMEN Mallory ([phone]). Community Services at Home: DME Current: Cane, [...] as appropriate. HOLLY GIORDANO RN Phone Number: [phone] documented in this encounter Nursing Notes * Shiloh Chand RN - 05/28/2025 1:31 PM EDT AVS reviewed with pt and . PIV's removed, pt assisted in getting dressed. directed on where discharge pharmacy is for pt's discharge abx. [facility]. * Dalila Burns RN - 05/27/2025 6:58 PM EDT Nursing Day Shift Progress Note Significant Events During Shift Patient bladder scanned, patient pulled out purewick due to being confused. Patient reoriented renewable energy division manager light vs purewick. Patient/Family Concerns Visitors: none [...] 05/27/2025 3:52 PM EDT Patient transported to [facility], belongings at bedside, report given to bedside [...] Dominguez RN - 05/28/2025 11:26 AM EDT [facility] Gamma Ray Operator/Social Work Discharge Needs Assessment Laura Mallory [id number] 64 y.o. female White or Sepsis (CMS-HCC) [A41.9] Treatment Preferences Treatment Preferences: Other (provide comment) (n/a) Post-Discharge Goals Patient's Post-Discharge goals: medical stability and management Discharge Needs Assessment Home Health Services agency list provided: Yes Ant Dominguez RN [phone] * Care Coordination - Ant Dominguez RN - 05/28/2025 10:52 AM EDT [facility] notified by that pt might be medically ready today and needing Home PT/OT. CM sent referrals for [facility] and awaiting response. Update 1104am- Pt setup with [place] [facility] for Home PT/OT. CM updated medical team and requested HHC orders. Ant Dominguez RN [phone] * Home Health Care Note - Devante Kathleen MD - 05/28/2025 10:46 AM EDT Images from the original note were not included. REFERRAL FOR HOME HEALTH SERVICES FORM Patient name: Laura Mallory Patient : 1960 Age: 64 y.o. Gender: female SSN: [id number] Address: [address] [place] [address] Phone number: There are no phone numbers on file. Patient emergency contact: Extended Emergency Contact Information Primary Emergency Contact: Adal Mallory [address]: [address] [place] [address] Relation: Spouse Date of admission: 05/25/2025 Date of discharge: 05/28/2025 Attending provider: Devante Kathleen MD Primary care physician: MANAS JENKINS MD Code status: Full Code Allergies: Allergies[1] Insurance Information Insurance Information MEDICARE/MEDICARE A AND B Phone: -- Subscriber: Laura Mallory Subscriber#: [id number] Group#: -- Precert#: -- Authorization#: -- Effective Date: -- [employer] [facility]/[employer] [place] [employer] MEDICA[place] Subscriber: Laura Mallory Subscriber#: [id number] Group#: [id number] Precert#: -- Authorization#: -- Effective Date: -- Diagnoses Present on Admission Primary Diagnosis: Septic shock ([facility]) Discharge Diagnosis : Active Hospital Problems Diagnosis Date Noted Septic shock, resolved [A41.9, R65.21] 05/25/2025 Morbid obesity ([facility]) [E66.01] 05/27/2025 Pneumonia of both lower lobes due to infectious organism [J18.9] 05/27/2025 Elevated LFTs [R79.89] 05/27/2025 Simple chronic bronchitis ([facility]) [J41.0] 05/27/2025 APARNA (obstructive sleep apnea) [G47.33] 05/27/2025 Acute respiratory failure with hypoxia ([facility]) [J96.01] 05/27/2025 Acute metabolic encephalopathy [G93.41] 05/27/2025 HFimpEF [I50.22] 05/27/2025 Opioid-induced constipation [K59.03, T40.2X5A] 05/27/2025 Chronic back+knee pain with R-sided sciatica [M54.9, G89.29] 05/27/2025 Coronary artery disease involving [place] coronary artery of [place] heart without angina pectoris [I25.10] 02/26/2023 Gastroesophageal reflux disease without esophagitis [K21.9] 05/02/2022 Chronic anxiety [F41.9] 05/02/2022 Resolved Hospital Problems Diagnosis Date Noted Date Resolved Acute kidney injury ([facility]) [N17.9] 05/27/2025 05/27/2025 Prognosis: good Rehabilitation potential: [...] effort and are for medical reasons or [facility] or infrequently or short duration when for other reasons) due to deconditioning it would be a taxing effort to receive outpatient services. My signature below is to certify that this patient is under my care and that I, or nurse practitioner, or a physician glass ribbon machine operator assistant working with me, had a [id number] encounter with this is patient on: 05/28/2025 Follow-up Appointments and Post Hospital Discharge Physician Name No future appointments. 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 Machine Operator and Credentials Provider/Company Name and Contact Number: Community Services at Discharge Community Services at Home post discharge: Home Health [facility] Name/Phone # post discharge: [facility] [phone] Home Health Services Types at Discharge: PT/OT/POTATO CHIP MAKER \ [1] Allergies Allergen Reactions Aleve [Naproxen [...] Patient will remain free of falls Goal: [place] Precautions Outcome: Progressing Problem: Daily Care [...] Patient will remain free of falls Goal: [place] Precautions Outcome: Progressing Problem: Daily Care [...] needs Outcome: Progressing * Hospital Course - [facility] - 05/27/2025 3:37 PM EDT [...] (60-65%) later in 2022; non-obstructiveCAD on remote [facility]. No sx of ACS. EKG low voltage but no signs of ACS. TTE 05/26 with EF 55-60%, no concerns. Last BNP 162 but on entresto at home. Chest imaging w/o pulmonary edema. Able to resume homemedications as shock has resolved. #Opiate-induced constipation #Hematochezia Per patient, was having intermittent BRB per rectum for 1 month BRAILLE TYPIST, no hematochezia noted since admission. Last BM BRAILLE TYPIST. - Resume home Linzess - Miralax BID, [...] Patient will remain free of falls Goal: [place] Precautions Outcome: Progressing Problem: Daily Care [...] Patient will remain free of falls Goal: [place] Precautions Outcome: Not Progressing Problem: Potential [...] Giordano RN - 05/26/2025 1:11 PM EDT [facility] Case Management/Social Work Department Progress Note Patient Information Patient Name: Laura Mallory Hospital day: 1 Inpatient/Observation: Inpatient Level of Care: MICU LOC Admit date: 05/25/2025 Admission diagnosis: SEPTIC SHOCK PMH: has a past medical history of Acute non-ST segment elevation myocardial infarction ([facility]) (02/26/2023), Anxiety, Atherosclerosis of coronary artery without angina pectoris (02/26/2023), COPD (chronic obstructive pulmonary disease) ([facility]), Heart failure with improved ejection fraction (HFimpEF) ([facility]), and Stress-induced cardiomyopathy (02/26/2023). PCP: MANAS JENKINS MD Home Pharmacy: No [...] hospital on 05/25/2025 as adirect admission from [facility] with shock and elevated liver enzymes. [...] Patient will remain free of falls Goal: [place] Precautions Outcome: Progressing documented in this [...] GAS, LINE/SYRINGE STAT 05/27/2025 1:11 PM EDT YAHIARA RHYTHM STRIP - SCAN 05/27/2025 8:44 AM [...] - 1.5 mg/dL 05/28/2025 6:06 AM EDT [facility] Bilirubin, Direct 0.08 0.00 - 0.40 mg/dL 05/28/2025 6:06 AM EDT [facility] Comment:HEMOLYSIS EVIDENT. D IRECT BILIRUBIN CONCENTRATIONS MAY BE FALSELY DECREASED IN THE PRESENCE OF HEMOLYSIS. INTERPRET WITH CAUTION. AST 71(H) 13 - 39 U/L 05/28/2025 6:06 AM EDT [facility] ALT 137(H) 7 - 52 U/L 05/28/2025 6:06 AM EDT [facility] Alkaline Phosphatase 231(H) 36 - 125 U/L 05/28/2025 6:06 AM EDT [facility] Total Protein 6.3(L) 6.4 - 8.9 g/dL 05/28/2025 6:06 AM EDT [facility] Albumin 3.2(L) 3.5 - 5.7 g/dL 05/28/2025 6:06 AM EDT [facility] Bilirubin, Indirect 0.62 0.00 - 1.10 mg/dL 05/28/2025 6:06 AM EDT [facility] Plasma 05/28/2025 4:27 AM EDT 05/28/2025 5:27 AM EDT us Estrada Nelson DO LAB BLOOD ORDERABLES Final Resu lt [facility] [address] [place] [address], [facility] * (ABNORMAL) Renal Function Panel w/EGFR (05/28/2025 4:27 AM EDT) Sodium 139 133 - 146 mmol/L 05/28/2025 6:06 AM EDT [facility] Potassium 4.3 3.5 - 5.3 mmol/L 05/28/2025 6:06 AM EDT [facility] Comment:Hemolysis Present: R esults may be influenced artificially. Recommend recollection as clinically indicated. Chloride 108 98 - 110 mmol/L 05/28/2025 6:06 AM EDT [facility] CO2 22 21 - 33 mmol/L 05/28/2025 6:06 AM EDT [facility] Anion Gap 9 3 - 16 mmol/L 05/28/2025 6:06 AM EDT [facility] BUN 12 7 - 25 mg/dL 05/28/2025 6:06 AM EDT [facility] Creatinine 0.71 0.60 - 1.30 mg/dL 05/28/2025 6:06 AM EDT [facility] Glucose 81 70 - 100 mg/dL 05/28/2025 6:06 AM EDT [facility] Calcium 8.3(L) 8.6 - 10.3 mg/dL 05/28/2025 6:06 AM EDT [facility] Phosphorus 2.7 2.1 - 4.5 mg/dL 05/28/2025 6:06 AM EDT [facility] Comment:HEMOLYSIS EVIDENT. R ESULTS MAY BE INFLUENCED. Albumin 3.2(L) 3.5 - 5.7 g/dL 05/28/2025 6:06 AM EDT [facility] Osmolality, Calculated 287 278 - 305 mOsm/kg 05/28/2025 6:06 AM EDT [facility] EGFR >90 05/28/2025 6:06 AM EDT [facility] Comment: As of 2022, the [...] DO LAB BLOOD ORDERABLES Final Resu lt [facility] [address] * Magnesium (05/28/2025 4:27 AM EDT) Magnesium 2.0 1.5 - 2.5 mg/dL 05/28/2025 6:06 AM EDT [facility] Comment:HEMOLYSIS EVIDENT. R ESULTS MAY BE INFLUENCED. Plasma 05/28/2025 4:27 AM EDT 05/28/2025 5:27 AM EDT us Estrada Still DO LAB BLOOD ORDERABLES Final Resu lt [facility] [address] * (ABNORMAL) CBC (05/28/2025 4:27 AM EDT) Pathologist [facility] WBC 9.0 3.8 - 10.8 10E3/uL 05/28/2025 5:38 AM EDT [facility] RBC 3.02(L) 3.80 - 5.10 10E6/uL 05/28/2025 5:38 AM EDT [facility] Hemoglobin 9.2(L) 11.7 - 15.5 g/dL 05/28/2025 5:38 AM EDT [facility] Hematocrit 27.9(L) 35.0 - 45.0 % 05/28/2025 5:38 AM EDT [facility] MCV 92.6 80.0 - 100.0 fL 05/28/2025 5:38 AM EDT [facility] MCH 30.6 27.0 - 33.0 pg 05/28/2025 5:38 AM EDT [facility] MCHC 33.1 32.0 - 36.0 g/dL 05/28/2025 5:38 AM EDT [facility] RDW 18.2(H) 11.0 - 15.0 % 05/28/2025 5:38 AM EDT [facility] Platelets 235 140 - 400 10E3/uL 05/28/2025 5:38 AM EDT [facility] MPV 8.7 7.5 - 11.5 fL 05/28/2025 5:38 AM EDT [facility] Whole Blood 05/28/2025 4:27 AM EDT 05/28/2025 5:27 AM EDT us Estrada Nelson DO LAB BLOOD ORDERABLES Final Resu lt [facility] [address] * (ABNORMAL) POC Glucose Monitoring Device (05/27/2025 11:34 PM EDT) POC Glucose Monitoring Device 150(H) 70 - 100 mg/dL 05/27/2025 11:34 PM EDT [facility] Blood 05/27/2025 11:3 4 PM EDT 05/27/2025 11:34 PM EDT Willem Shin DO POINT OF CARE TEST ORDERABLE S Final Result Performing Organization Address City/[facility]/ZIP Co de Phone Number [facility] [address] [facility]. [address] * Strep Pneumo-Legionella Urine Antigen (05/27/2025 2:11 PM EDT) Strept Pneumo Ag Negative Negative 05/28/2025 3:11 AM EDT [facility] Legionella Antigen Negative Negative 05/28/2025 3:11 AM EDT [facility] Urine 05/27/2025 2:11 PM EDT 05/28/2025 2:05 AM EDT Narrative [facility] - 05/28/2025 3:11 AM EDT Positive indicates detection of either Streptococcus pneumoniae antigen or Legionella pneumophila serogroup 1 antigen. Negative results do not rule out pneumococcal infection or infection with L. pneumophila serogroup 1, other serogroups of L. pneumophila, or other Legionella species. Audi Yates MD URINE ORDERABLES Final Result Performing Organization Address [facility] Co de Phone Number [facility] [address] [facility]. [address] * POC Glucose Monitoring Device (05/27/2025 1:14 PM EDT) POC Glucose Monitoring Device 81 70 - 100 mg/dL 05/27/2025 1:15 PM EDT [facility] Blood 05/27/2025 1:14 PM EDT 05/27/2025 1:15 PM EDT Willem Shin DO POINT OF CARE TEST ORDERABLE S Final Result [facility] [address] * (ABNORMAL) Venous Blood Gas, Line/Syringe, STAT (05/27/2025 1:11 PM EDT) PH-Line Draw 7.27(L) 7.32 - 7.42 05/27/2025 1:21 PM EDT [facility] PCO2-Line Draw 50 41 - 51 mm Hg 05/27/2025 1:21 PM EDT [facility] PO2-Line Draw 44(H) 25 - 40 mm Hg 05/27/2025 1:21 PM EDT [facility] HCO3-Line Draw 21(L) 24 - 28 mmol/L 05/27/2025 1:21 PM EDT [facility] CO2 Content-Line Draw 25 25 - 29 mmol/L 05/27/2025 1:21 PM EDT [facility] Base Excess-Line Draw -4.0(L) -2.0 - 3.0 mmol/L 05/27/2025 1:21 PM EDT [facility] %HBO2-Line Draw 69.1 40.0 - 70.0 % 05/27/2025 1:21 PM EDT [facility] Carboxyhgb-Joi e Draw 1.1 % 05/27/2025 1:21 PM EDT [facility] Comment: CARBOXYHEMOGLOBIN (CO) REFERENCE RANGES: Non-Smokers: <2 % Smokers: <8 % TOXIC: >20 % Methemoglobin- Line Draw 0.0 0.0 - 1.5 % 05/27/2025 1:21 PM EDT [facility] Reduced Hemoglobin-Joi e Draw 29.8(H) 0.0 - 5.0 % 05/27/2025 1:21 PM EDT [facility] Venous, Line Draw 05/27/2025 1:11 PM EDT 05/27/2025 1:18 PM EDT us Estrada Demetri DO LAB BLOOD ORDERABLES Final Resu lt [facility] [address] [facility]. [address] * YAHAIRA Rhythm Strip - Scan (05/27/2025 8:44 AM EDT) us Scanning Uchhim SCAN DOCS - NO RESULTS Final Res ult * (ABNORMAL) Hepatic Function Panel, AM (05/27/2025 12:41 AM EDT) Total Bilirubin 0.9 0.0 - 1.5 mg/dL 05/27/2025 1:17 AM EDT [facility] Bilirubin, Direct 0.30 0.00 - 0.40 mg/dL 05/27/2025 1:17 AM EDT [facility] AST 171(H) 13 - 39 U/L 05/27/2025 1:17 AM EDT [facility] ALT 239(H) 7 - 52 U/L 05/27/2025 1:17 AM EDT [facility] Alkaline Phosphatase 295(H) 36 - 125 U/L 05/27/2025 1:17 AM EDT [facility] Total Protein 6.5 6.4 - 8.9 g/dL 05/27/2025 1:17 AM EDT [facility] Albumin 3.4(L) 3.5 - 5.7 g/dL 05/27/2025 1:17 AM EDT [facility] Bilirubin, Indirect 0.60 0.00 - 1.10 mg/dL 05/27/2025 1:17 AM EDT [facility] Plasma 05/27/2025 12:4 1 AM EDT 05/27/2025 12:45 AM EDT us Denisse Albert DO LAB BLOOD ORDERABLES Final Resul t [facility] [address] [id number], [facility] * Magnesium, AM (05/27/2025 12:41 AM EDT) Magnesium 2.1 1.5 - 2.5 mg/dL 05/27/2025 1:17 AM EDT [facility] Plasma 05/27/2025 12:4 1 AM EDT 05/27/2025 12:45 AM EDT us Denisse Albert DO LAB BLOOD ORDERABLES Final Resul t [facility] [address] [place] [address], [facility] * (ABNORMAL) Renal Function Panel w/EGFR (05/27/2025 12:41 AM EDT) Sodium 139 133 - 146 mmol/L 05/27/2025 1:17 AM EDT [facility] Potassium 4.4 3.5 - 5.3 mmol/L 05/27/2025 1:17 AM EDT [facility] Chloride 108 98 - 110 mmol/L 05/27/2025 1:17 AM EDT [facility] CO2 23 21 - 33 mmol/L 05/27/2025 1:17 AM EDT [facility] Anion Gap 8 3 - 16 mmol/L 05/27/2025 1:17 AM EDT [facility] BUN 16 7 - 25 mg/dL 05/27/2025 1:17 AM EDT [facility] Creatinine 0.91 0.60 - 1.30 mg/dL 05/27/2025 1:17 AM EDT [facility] Glucose 122(H) 70 - 100 mg/dL 05/27/2025 1:17 AM EDT [facility] Calcium 8.3(L) 8.6 - 10.3 mg/dL 05/27/2025 1:17 AM EDT [facility] Phosphorus 3.0 2.1 - 4.5 mg/dL 05/27/2025 1:17 AM EDT [facility] Albumin 3.4(L) 3.5 - 5.7 g/dL 05/27/2025 1:17 AM EDT [facility] Osmolality, Calculated 290 278 - 305 mOsm/kg 05/27/2025 1:17 AM EDT [facility] EGFR 70 05/27/2025 1:17 AM EDT [facility] Comment:As of 2022, the estimated [...] DO LAB BLOOD ORDERABLES Final Resul t [facility] [address] [id number], [facility] * (ABNORMAL) CBC, AM (05/27/2025 12:41 AM EDT) WBC 21.8(H) 3.8 - 10.8 10E3/uL 05/27/2025 12:54 AM EDT [facility] RBC 3.24(L) 3.80 - 5.10 10E6/uL 05/27/2025 12:54 AM EDT [facility] Hemoglobin 9.8(L) 11.7 - 15.5 g/dL 05/27/2025 12:54 AM EDT [facility] Hematocrit 30.1(L) 35.0 - 45.0 % 05/27/2025 12:54 AM EDT [facility] MCV 92.9 80.0 - 100.0 fL 05/27/2025 12:54 AM EDT [facility] MCH 30.3 27.0 - 33.0 pg 05/27/2025 12:54 AM EDT [facility] MCHC 32.6 32.0 - 36.0 g/dL 05/27/2025 12:54 AM EDT [facility] RDW 19.2(H) 11.0 - 15.0 % 05/27/2025 12:54 AM EDT [facility] Platelets 247 140 - 400 10E3/uL 05/27/2025 12:54 AM EDT [facility] MPV 8.7 7.5 - 11.5 fL 05/27/2025 12:54 AM EDT [facility] Whole Blood 05/27/2025 12:4 1 AM EDT 05/27/2025 12:45 AM EDT Denisse Albert DO LAB BLOOD ORDERABLES Final Resul t Performing Organization Address [facility] Co de Phone Number [facility] [address] [place] [address]. [address] * Hepatitis B Core IgM (05/26/2025 9:04 PM EDT) Hep B Core IgM Nonreactive Nonreactive 05/26/2025 10:32 PM EDT [facility] Serum 05/26/2025 9:04 PM EDT 05/26/2025 9:07 PM EDT [facility] - 05/26/2025 10:32 PM EDT IgM anti-HBc not detected. Does not exclude the possibility of exposure to or infection with HBV. Cookie Abdul MD LAB BLOOD ORDERABLES Final Resu lt Performing Organization Address [facility] Co de Phone Number [facility] [address] [place] [address]. [address] * (ABNORMAL) Hepatitis B Core Antibody (05/26/2025 9:04 PM EDT) Hep B Core Total Ab Reactive( A) Nonreactive 05/27/2025 12:02 AM EDT [facility] Comment: Health Department notified in accordance with reportable infectious disease guidelines. Health Department notified in accordance with reportable infectious disease guidelines. Serum 05/26/2025 9:04 PM EDT 05/26/2025 9:07 PM EDT Narrative [facility] - 05/27/2025 12:02 AM EDT A reactive final interpretation indicates presumptive evidence of HBV; anti-HBc antibodies were detected in the sample which suggests either on-going or previous HBV infection. us Cookie Abdul MD LAB BLOOD ORDERABLES Final Resu lt [facility] [address] * YAHAIRA Rhythm Strip - Scan (05/26/2025 7:02 PM EDT) us Scanning Uchhim SCAN DOCS - NO RESULTS Final Res ult * YAHAIRA Rhythm Strip - Scan (05/26/2025 6:52 PM EDT) us Scanning Uchhim SCAN DOCS - NO RESULTS Final Res ult * Protime-INR (05/26/2025 3:02 PM EDT) Protime 14.6 12.1 - 15.1 seconds 05/26/2025 4:00 PM EDT [facility] INR 1.1 0.9 - 1.1 05/26/2025 4:00 PM EDT [facility] Comment: RECOMMENDED THERAPEUTIC RANGES USING INR : Stable oral anticoagulant therapy: 2.0 - 3.0 Mechanical prosthetic heart valve: 2.5 - 3.5 Recurrent acute myocardial infarction: 2.5 - 3.5 Plasma 05/26/2025 3:02 PM EDT 05/26/2025 3:06 PM EDT us Estrada Nelson DO LAB BLOOD ORDERABLES Final Resu lt Performing Organization Address City/[facility]/ZIP Co de Phone Number [facility] [address] [facility]. [address] * (ABNORMAL) Hepatitis B Surface Antibody, Quantitative (05/26/2025 3:02 PM EDT) Hep B S Ab Reactive( A) Nonreactive 05/26/2025 7:37 PM EDT [facility] HBSAB NUMBER >500.00(H ) 0.00 - 7.99 mIU/mL 05/26/2025 7:37 PM EDT [facility] Serum 05/26/2025 3:02 PM EDT 05/26/2025 3:06 PM EDT [facility] - 05/26/2025 7:37 PM EDT Individual is considered immune to HBV infection. us Lewis Connelly MD LAB BLOOD ORDERABLES Final Resul t Performing Organization Address [facility] de Phone Number [facility] [address] [place] [address]. [address] * (ABNORMAL) Hepatitis B Core Antibody (05/26/2025 3:02 PM EDT) Hep B Core Total Ab Reactive( A) Nonreactive 05/26/2025 11:30 PM EDT [facility] Comment: Health Department notified in accordance with reportable infectious disease guidelines. Health Department notified in accordance with reportable infectious disease guidelines. Serum 05/26/2025 3:02 PM EDT 05/26/2025 3:06 PM EDT [facility] - 05/26/2025 11:30 PM EDT A reactive final interpretation indicates presumptive evidence of HBV; anti-HBc antibodies were detected in the sample which suggests either on-going or previous HBV infection. us Lewis Connelly MD LAB BLOOD ORDERABLES Final Resul t Performing Organization Address [facility] de Phone Number [address] * Hepatitis A IgM (05/26/2025 3:02 PM EDT) Hep A IgM Nonreactive Nonreactive 05/26/2025 7:36 PM EDT [facility] Serum 05/26/2025 3:02 PM EDT 05/26/2025 3:06 PM EDT [facility] - 05/26/2025 7:36 PM EDT IgM anti-HAV not detected. Does not exclude the possibility of exposure to or infection with HAV. Levels of IgM anti-HAV may be below the cut-off in early infection. us Lewis Connelly MD LAB BLOOD ORDERABLES Final Resul t Performing Organization Address City/[facility] Co de Phone Number [facility] [address] [facility]. [address] * Hepatitis C Antibody (05/26/2025 3:02 PM EDT) HCV Ab Nonreactive Nonreactive 05/26/2025 7:36 PM EDT [facility] Comment:Health Department no tified in accordance with reportable infectious disease guidelines. Serum 05/26/2025 3:02 PM EDT 05/26/2025 3:06 PM EDT [facility] - 05/26/2025 7:36 PM EDT Antibodies to HCV not detected; does not exclude the possibility of exposure to HCV. us Lewis Connelly MD LAB BLOOD ORDERABLES Final Resul t Performing Organization Address [facility] Co de Phone Number [facility] [address] [facility]. [address] * Hepatitis B Surface Antigen (05/26/2025 3:02 PM EDT) Hep B Surface Ag Nonreactive Nonreactive 05/26/2025 7:36 PM EDT [facility] Comment:Health Department no tified in accordance with reportable infectious disease guidelines. Serum 05/26/2025 3:02 PM EDT 05/26/2025 3:06 PM EDT [facility] - 05/26/2025 7:36 PM EDT Specimen is considered negative for HBsAg. us Lewis Connelly MD LAB BLOOD ORDERABLES Final Resul t Performing Organization Address City/[facility]/ZIP Co de Phone Number [facility] [address] [facility]. [address] * (ABNORMAL) Hepatic Function Panel, STAT (05/26/2025 3:02 PM EDT) Total Bilirubin 1.2 0.0 - 1.5 mg/dL 05/26/2025 5:18 PM EDT [facility] Bilirubin, Direct 0.60(H) 0.00 - 0.40 mg/dL 05/26/2025 5:18 PM EDT [facility] AST 223(H) 13 - 39 U/L 05/26/2025 5:18 PM EDT [facility] ALT 269(H) 7 - 52 U/L 05/26/2025 5:18 PM EDT [facility] Alkaline Phosphatase 303(H) 36 - 125 U/L 05/26/2025 5:18 PM EDT [facility] Total Protein 6.4 6.4 - 8.9 g/dL 05/26/2025 5:18 PM EDT [facility] Albumin 3.3(L) 3.5 - 5.7 g/dL 05/26/2025 5:18 PM EDT [facility] Bilirubin, Indirect 0.60 0.00 - 1.10 mg/dL 05/26/2025 5:18 PM EDT [facility] Plasma 05/26/2025 3:02 PM EDT 05/26/2025 3:06 PM EDT us Estrada Nelson DO LAB BLOOD ORDERABLES Final Resu lt [facility] [address] [place] [address], [facility] * (ABNORMAL) Renal Function Panel w/EGFR, STAT (05/26/2025 3:02 PM EDT) Sodium 136 133 - 146 mmol/L 05/26/2025 5:18 PM EDT [facility] Potassium 4.1 3.5 - 5.3 mmol/L 05/26/2025 5:18 PM EDT [facility] Chloride 107 98 - 110 mmol/L 05/26/2025 5:18 PM EDT [facility] CO2 21 21 - 33 mmol/L 05/26/2025 5:18 PM EDT [facility] Anion Gap 8 3 - 16 mmol/L 05/26/2025 5:18 PM EDT [facility] BUN 18 7 - 25 mg/dL 05/26/2025 5:18 PM EDT [facility] Creatinine 0.96 0.60 - 1.30 mg/dL 05/26/2025 5:18 PM EDT [facility] Glucose 118(H) 70 - 100 mg/dL 05/26/2025 5:18 PM EDT [facility] Calcium 8.7 8.6 - 10.3 mg/dL 05/26/2025 5:18 PM EDT [facility] Phosphorus 3.8 2.1 - 4.5 mg/dL 05/26/2025 5:18 PM EDT [facility] Albumin 3.3(L) 3.5 - 5.7 g/dL 05/26/2025 5:18 PM EDT [facility] Osmolality, Calculated 285 278 - 305 mOsm/kg 05/26/2025 5:18 PM EDT [facility] EGFR 66 05/26/2025 5:18 PM EDT [facility] Comment:As of 2022, the estimated [...] DO LAB BLOOD ORDERABLES Final Resu lt [facility] [address] [place] [address], [facility] * (ABNORMAL) Venous Blood Gas, Line/Syringe, STAT (05/26/2025 2:49 PM EDT) PH-Line Draw 7.25(L) 7.32 - 7.42 05/26/2025 3:10 PM EDT [facility] PCO2-Line Draw 49 41 - 51 mm Hg 05/26/2025 3:10 PM EDT [facility] PO2-Line Draw 55(H) 25 - 40 mm Hg 05/26/2025 3:10 PM EDT [facility] HCO3-Line Draw 20(L) 24 - 28 mmol/L 05/26/2025 3:10 PM EDT [facility] CO2 Content-Line Draw 23(L) 25 - 29 mmol/L 05/26/2025 3:10 PM EDT [facility] Base Excess-Line Draw -5.6(L) -2.0 - 3.0 mmol/L 05/26/2025 3:10 PM EDT [facility] %HBO2-Line Draw 84.7(H) 40.0 - 70.0 % 05/26/2025 3:10 PM EDT [facility] Carboxyhgb-Joi e Draw 0.8 % 05/26/2025 3:10 PM EDT [facility] Comment: CARBOXYHEMOGLOBIN (CO) REFERENCE RANGES: Non-Smokers: <2 % Smokers: <8 % TOXIC: >20 % Methemoglobin- Line Draw 0.0 0.0 - 1.5 % 05/26/2025 3:10 PM EDT [facility] Reduced Hemoglobin-Joi e Draw 14.5(H) 0.0 - 5.0 % 05/26/2025 3:10 PM EDT [facility] Venous, Line Draw 05/26/2025 2:49 PM EDT 05/26/2025 3:06 PM EDT Denisse Albert DO LAB BLOOD ORDERABLES Final Resul t [facility] [address] [id number], [facility] * (ABNORMAL) POC Glucose Monitoring Device (05/26/2025 12:25 PM EDT) POC Glucose Monitoring Device 124(H) 70 - 100 mg/dL 05/26/2025 12:26 PM EDT [facility] Blood 05/26/2025 12:2 5 PM EDT 05/26/2025 12:26 PM EDT Willem Shin DO POINT OF CARE TEST ORDERABLE S Final Result [facility] [address] [place] [address], [facility] * (ABNORMAL) Renal Function Panel w/EGFR, STAT (05/26/2025 10:08 AM EDT) Sodium 139 133 - 146 mmol/L 05/26/2025 10:52 AM EDT [facility] Potassium 4.7 3.5 - 5.3 mmol/L 05/26/2025 10:52 AM EDT [facility] Comment:Hemolysis Present: R esults may be influenced artificially. Recommend recollection as clinically indicated. Chloride 110 98 - 110 mmol/L 05/26/2025 10:52 AM EDT [facility] CO2 20(L) 21 - 33 mmol/L 05/26/2025 10:52 AM EDT [facility] Anion Gap 9 3 - 16 mmol/L 05/26/2025 10:52 AM EDT [facility] BUN 18 7 - 25 mg/dL 05/26/2025 10:52 AM EDT [facility] Creatinine 0.89 0.60 - 1.30 mg/dL 05/26/2025 10:52 AM EDT [facility] Glucose 108(H) 70 - 100 mg/dL 05/26/2025 10:52 AM EDT [facility] Calcium 8.7 8.6 - 10.3 mg/dL 05/26/2025 10:52 AM EDT [facility] Phosphorus 4.2 2.1 - 4.5 mg/dL 05/26/2025 10:52 AM EDT [facility] Albumin 3.3(L) 3.5 - 5.7 g/dL 05/26/2025 10:52 AM EDT [facility] Osmolality, Calculated 290 278 - 305 mOsm/kg 05/26/2025 10:52 AM EDT [facility] EGFR 72 05/26/2025 10:52 AM EDT [facility] Comment:As of 2022, the estimated [...] ORDERABLES Final Resu lt Performing Organization Address [facility]/ZIP Co de Phone Number [facility] [address] [place] [address] * Lactic Acid (05/26/2025 10:08 AM EDT) Lactate 0.8 0.5 - 2.2 mmol/L 05/26/2025 10:40 AM EDT [facility] Plasma 05/26/2025 10:0 8 AM EDT 05/26/2025 10:17 AM EDT us Estrada Nelson DO LAB BLOOD ORDERABLES Final Resu lt Performing Organization Address City/[facility]/ZIP Co de Phone Number [facility] [address] [place] [address] * ECHO COMPLETE W/ CONTRAST (05/26/2025 8:56 AM EDT) Anatomical Region Laterality Modality Chest Ultrasound 05/26/2025 8:13 AM EDT Narrative 05/26/2025 9:39 AM EDT * [facility]* [address] [place] [address] Transthoracic Echocardiogram Patient: Laura Mallory Room: [facility] Height: 65in MR Number: [id number] : 1960 Weight: 271lb Account: [id number] Gender: F BP: 91 / 59 Study Date: 05/26/2025 Age: 64 BSA: 2.25m^2 Referring physician: Cookie Abdul Interpreting physician: Eliu Bruns MD PERFORMING Eliu Burns MD [employer] Marion Adam ORDERING Cookie Abdul REFERRING Chantell, Cookie ATTENDING Eliud Lopezpark Willem Marquezn Procedure:TRANSTHORACIC ECHO (TTE) Order: Accession COMPLETE Number:[id number] Indications: Heart Failure unspecified (I50.9). PMH: Coronary [...] Reviewed and confirmed by Eliu Burns MD [id number] Procedure Note Eliu Burns MD - 05/26/2025 * [facility]* [address] [place] [address] Transthoracic Echocardiogram Patient: Laura Mallory Room: [facility] Height: 65in MR Number: [id number] : 1960 Weight: 271lb Account: [id number] Gender: F BP: 91 / 59 Study Date: 05/26/2025 Age: 64 BSA: 2.25m^2 Referring physician: Cookie Abdul Interpreting physician: Eliu Burns MD PERFORMING Eliu Burns MD [employer] Marion Adam ORDERING Cookie Abdul REFERRING Cookie Abdul ATTENDING Eliud LopezWillem nickn Procedure:TRANSTHORACIC ECHO (TTE) Order: Accession COMPLETE Number:[id number] Indications: Heart Failure unspecified (I50.9). PMH: Coronary [...] Reviewed and confirmed by Eliu Burns MD [id number] Cookie Abdul MD CV ECHO ORDERABLES Final Result * (ABNORMAL) POC Glucose Monitoring Device (05/26/2025 8:47 AM EDT) [facility] POC Glucose Monitoring Device 106(H) 70 - 100 mg/dL 05/26/2025 8:47 AM EDT [facility] Blood 05/26/2025 8:47 AM EDT 05/26/2025 8:47 AM EDT us Willem Shin DO POINT OF CARE TEST ORDERABLE S Final Result [facility] [address] [place], [place] [address] * (ABNORMAL) Venous Blood Gas, Line/Syringe, STAT (05/26/2025 8:42 AM EDT) PH-Line Draw 7.19(LL) 7.32 - 7.42 05/26/2025 9:10 AM EDT [facility] Comment: The critical result was called to, and read back by, licensed caregiver JELENA COYNE PCO2-Line Draw 51 41 - 51 mm Hg 05/26/2025 9:10 AM EDT [facility] PO2-Line Draw 23(L) 25 - 40 mm Hg 05/26/2025 9:10 AM EDT [facility] HCO3-Line Draw 17(L) 24 - 28 mmol/L 05/26/2025 9:10 AM EDT [facility] CO2 Content-Line Draw 21(L) 25 - 29 mmol/L 05/26/2025 9:10 AM EDT [facility] Base Excess-Line Draw -8.5(L) -2.0 - 3.0 mmol/L 05/26/2025 9:10 AM EDT [facility] %HBO2-Line Draw 29.0(L) 40.0 - 70.0 % 05/26/2025 9:10 AM EDT [facility] Carboxyhgb-Joi e Draw 1.2 % 05/26/2025 9:10 AM EDT [facility] Comment: CARBOXYHEMOGLOBIN (CO) REFERENCE RANGES: Non-Smokers: <2 % Smokers: <8 % TOXIC: >20 % Methemoglobin- Line Draw 0.0 0.0 - 1.5 % 05/26/2025 9:10 AM EDT [facility] Reduced Hemoglobin-Joi e Draw 69.9(H) 0.0 - 5.0 % 05/26/2025 9:10 AM EDT [facility] Venous, Line Draw 05/26/2025 8:42 AM EDT 05/26/2025 8:59 AM EDT us Estrada Nelson DO LAB BLOOD ORDERABLES Final Resu lt [facility] [address] [place] [address], [facility] * YAHAIRA Rhythm Strip - Scan (05/26/2025 7:41 AM EDT) us Scanning Uchhim SCAN DOCS - NO RESULTS Final Res ult * (ABNORMAL) Iron Studies (Iron + TIBC) (05/26/2025 3:33 AM EDT) Iron 38(L) 50 - 212 ug/dL 05/26/2025 6:07 AM EDT [facility] % Iron Saturation 12.2(L) 15.0 - 55.0 % 05/26/2025 6:07 AM EDT [facility] TIBC 311 265 - 497 ug/dL 05/26/2025 6:07 AM EDT [facility] Serum 05/26/2025 3:33 AM EDT 05/26/2025 3:40 AM EDT Cookie Abdul MD LAB BLOOD ORDERABLES Final Resu lt [facility] [address] [facility]. [address] * Vitamin B12 (05/26/2025 3:33 AM EDT) Vitamin B-12 730 180 - 914 pg/mL 05/26/2025 4:42 AM EDT [facility] Serum 05/26/2025 3:33 AM EDT 05/26/2025 3:38 AM EDT Cookie Abdul MD LAB BLOOD ORDERABLES Final Resu lt [facility] [address] [facility]. [address] * Folate (Folic Acid) (05/26/2025 3:33 AM EDT) Folic Acid 8.60 5.90 - 24.80 ng/mL 05/26/2025 4:41 AM EDT [facility] Serum 05/26/2025 3:33 AM EDT 05/26/2025 3:38 AM EDT us Cookie Abdul MD LAB BLOOD ORDERABLES Final Resu lt [facility] [address] * Ferritin (05/26/2025 3:33 AM EDT) Ferritin 250.6 11.0 - 306.8 ng/mL 05/26/2025 4:38 AM EDT [facility] Serum 05/26/2025 3:33 AM EDT 05/26/2025 3:38 AM EDT us Cookie Abdul MD LAB BLOOD ORDERABLES Final Resu lt Performing Organization Address [facility] Co de Phone Number [facility] [address] [facility]. [address] * (ABNORMAL) MRSA/Staph aureus DNA ??? Diagnostic testing for pneumonia (05/26/2025 3:33 AM EDT) MRSA, PCR Negative Negative 05/26/2025 7:00 AM EDT [facility] Staph Aureus, PCR Positive(A) Negative 05/26/2025 7:00 AM EDT [facility] Comment:Test method is a FDA approved amplified DNA assay. Nares Swab BOTH ANTERIOR NARES / Unknown 05/26/2025 3:33 AM EDT 05/26/2025 5:14 AM EDT Narrative [facility] - 05/26/2025 7:00 AM EDT Diagnosis of MRSA Pneumonia->Yes - Place [id number] (this order) us Cookie Abdul MD MICROBIOLOGY - GENERAL ORDERABL ES Final Result Performing Organization Address [facility] Co de Phone Number [facility] [address] [facility]. [address] * (ABNORMAL) Hepatic Function Panel (05/26/2025 3:33 AM EDT) Total Bilirubin 2.9(H) 0.0 - 1.5 mg/dL 05/26/2025 4:36 AM EDT [facility] Bilirubin, Direct 2.02(H) 0.00 - 0.40 mg/dL 05/26/2025 4:36 AM EDT [facility] AST 342(H) 13 - 39 U/L 05/26/2025 4:36 AM EDT [facility] ALT 345(H) 7 - 52 U/L 05/26/2025 4:36 AM EDT [facility] Alkaline Phosphatase 361(H) 36 - 125 U/L 05/26/2025 4:36 AM EDT [facility] Total Protein 6.7 6.4 - 8.9 g/dL 05/26/2025 4:36 AM EDT [facility] Albumin 3.5 3.5 - 5.7 g/dL 05/26/2025 4:36 AM EDT [facility] Bilirubin, Indirect 0.88 0.00 - 1.10 mg/dL 05/26/2025 4:36 AM EDT [facility] Plasma 05/26/2025 3:33 AM EDT 05/26/2025 3:38 AM EDT us Cookie Abdul MD LAB BLOOD ORDERABLES Final Resu lt [facility] [address] [place] [address], [facility] * (ABNORMAL) Renal Function Panel w/EGFR (05/26/2025 3:33 AM EDT) Sodium 140 133 - 146 mmol/L 05/26/2025 4:36 AM EDT [facility] Potassium 4.5 3.5 - 5.3 mmol/L 05/26/2025 4:36 AM EDT [facility] Chloride 108 98 - 110 mmol/L 05/26/2025 4:36 AM EDT [facility] CO2 20(L) 21 - 33 mmol/L 05/26/2025 4:36 AM EDT [facility] Anion Gap 12 3 - 16 mmol/L 05/26/2025 4:36 AM EDT [facility] BUN 18 7 - 25 mg/dL 05/26/2025 4:36 AM EDT [facility] Creatinine 1.15 0.60 - 1.30 mg/dL 05/26/2025 4:36 AM EDT [facility] Glucose 112(H) 70 - 100 mg/dL 05/26/2025 4:36 AM EDT [facility] Calcium 9.3 8.6 - 10.3 mg/dL 05/26/2025 4:36 AM EDT [facility] Phosphorus 4.0 2.1 - 4.5 mg/dL 05/26/2025 4:36 AM EDT [facility] Albumin 3.5 3.5 - 5.7 g/dL 05/26/2025 4:36 AM EDT [facility] Osmolality, Calculated 293 278 - 305 mOsm/kg 05/26/2025 4:36 AM EDT [facility] EGFR 53 05/26/2025 4:36 AM EDT [facility] Comment:As of 2022, the estimated [...] MD LAB BLOOD ORDERABLES Final Resu lt [facility] [address] [place] [address], [facility] * Magnesium (05/26/2025 3:33 AM EDT) Magnesium 2.3 1.5 - 2.5 mg/dL 05/26/2025 4:36 AM EDT [facility] Plasma 05/26/2025 3:33 AM EDT 05/26/2025 3:38 AM EDT us Cookie Abdul MD LAB BLOOD ORDERABLES Final Resu lt [facility] [address] [id number] * (ABNORMAL) CBC (05/26/2025 3:33 AM EDT) WBC 29.1(H) 3.8 - 10.8 10E3/uL 05/26/2025 4:27 AM EDT [facility] RBC 3.31(L) 3.80 - 5.10 10E6/uL 05/26/2025 4:27 AM EDT [facility] Hemoglobin 10.4(L) 11.7 - 15.5 g/dL 05/26/2025 4:27 AM EDT [facility] Hematocrit 30.6(L) 35.0 - 45.0 % 05/26/2025 4:27 AM EDT [facility] MCV 92.3 80.0 - 100.0 fL 05/26/2025 4:27 AM EDT [facility] MCH 31.3 27.0 - 33.0 pg 05/26/2025 4:27 AM EDT [facility] MCHC 33.9 32.0 - 36.0 g/dL 05/26/2025 4:27 AM EDT [facility] RDW 18.5(H) 11.0 - 15.0 % 05/26/2025 4:27 AM EDT [facility] Platelets 260 140 - 400 10E3/uL 05/26/2025 4:27 AM EDT [facility] MPV 8.9 7.5 - 11.5 fL 05/26/2025 4:27 AM EDT [facility] Whole Blood 05/26/2025 3:33 AM EDT 05/26/2025 3:38 AM EDT us Cookie Abdul MD LAB BLOOD ORDERABLES Final Resu lt [facility] [address] * (ABNORMAL) Gamma GT (05/26/2025 12:43 AM EDT) GGT 307(H) 9 - 64 U/L 05/26/2025 1:37 AM EDT [facility] Serum 05/26/2025 12:4 3 AM EDT 05/26/2025 12:52 AM EDT us Cookie Abdul MD LAB BLOOD ORDERABLES Final Resu lt Performing Organization Address [facility] Co de Phone Number [facility] [address] * (ABNORMAL) NT-proBNP/Sacubitril/Valsartan (05/26/2025 12:43 AM EDT) NT Pro BNP 1142(H) 0 - 301 pg/mL 05/27/2025 7:40 AM EDT [facility] Comment: The following cut-points have [...] AM EDT 05/27/2025 8:07 AM EDT Narrative [facility] - 05/27/2025 8:07 AM EDT PERFORMED AT: [facility] [id number] MAIL CENSOR: Dave Escudero, PhD PHONE: [phone] us Cookie Abdul MD LAB BLOOD ORDERABLES Final Resu lt Performing Organization Address [facility] Co de Phone Number [facility] [address] [facility]. [address] * (ABNORMAL) High Sensitivity Troponin (05/26/2025 12:43 AM EDT) High Sensitivity Troponin 17(H) 0 - 14 ng/L 05/26/2025 1:28 AM EDT [facility] Serum 05/26/2025 12:4 3 AM EDT 05/26/2025 12:56 AM EDT us Cookie Abdul MD LAB BLOOD ORDERABLES Final Resu lt Performing Organization Address [facility] Co de Phone Number [facility] [address] [facility]. [address] * Urine culture (05/25/2025 10:32 PM EDT) Culture Result No Growth After 2 Days [facility] Newly Placed Palafox Urine URINE SPECIMEN / Unknown 05/25/2025 10:32 PM EDT 05/25/2025 11:33 PM EDT us Cookie Abdul MD MICROBIOLOGY - GENERAL ORDERABL ES Final Result Performing Organization Address [facility] Co de Phone Number [facility] [address] [facility]. [address] * (ABNORMAL) Urinalysis w/Rfl to Microscopic (05/25/2025 10:32 PM EDT) Color, UA Yellow Yellow,Straw 05/25/2025 10:55 PM EDT [facility] Clarity, UA Cloudy(A) Clear 05/25/2025 10:55 PM EDT [facility] Specific [place], UA >1.035(H) 1.005 - 1.035 05/25/2025 10:55 PM EDT [facility] pH, UA 6.0 5.0 - 8.0 05/25/2025 10:55 PM EDT [facility] Protein, UA 30(A) Negative mg/dL 05/25/2025 10:55 PM EDT [facility] Glucose, UA Negative Negative mg/dL 05/25/2025 10:55 PM EDT [facility] Ketones, UA Negative Negative mg/dL 05/25/2025 10:55 PM EDT [facility] Bilirubin, UA Negative Negative 05/25/2025 10:55 PM EDT [facility] Blood, UA Moderate(A) Negative 05/25/2025 10:55 PM EDT [facility] Nitrite, UA Negative Negative 05/25/2025 10:55 PM EDT [facility] Urobilinogen, UA 3.0(H) 0.2 - 1.9 mg/dL 05/25/2025 10:55 PM EDT [facility] Leukocyte Esterase, UA Negative Negative 05/25/2025 10:55 PM EDT [facility] RBC, UA 41(H) 0 - 3 /HPF 05/25/2025 10:55 PM EDT [facility] WBC, UA 1 0 - 5 /HPF 05/25/2025 10:55 PM EDT [facility] Squam Epithel, UA 1 0 - 5 /HPF 05/25/2025 10:55 PM EDT [facility] Bacteria, UA Rare(A) None Seen /HPF 05/25/2025 10:55 PM EDT [facility] Urine 05/25/2025 10:3 2 PM EDT 05/25/2025 10:43 PM EDT us Cookie Abdul MD URINE ORDERABLES Final Result [facility] [address] [place] [address], [facility] * ECG 12 lead (MUSE) (05/25/2025 9:52 PM EDT) 05/25/2025 9:52 PM EDT Narrative MUSE - 05/26/2025 10:45 AM EDT Ventricular Rate: 68 BPM Atrial Rate: 68 BPM P-R Interval: 198 ms QRS Duration: 80 ms QT: 446 ms QTc: 474 ms P Austin: 58 degrees R Austin: -28 degrees T Austin: 6 degrees Diagnosis Line: NORMAL SINUS RHYTHM ^ LOW VOLTAGE QRS COMPLEXES ^ BORDERLINE ECG ^ No previous ECGs available ^ Confirmed by Conner DONATO MD ([id number]) on 05/26/2025 10:45:34 AM us Denisse Juan Antonioy DO ECG ORDERABLES Final Result Performing Organization Address [facility] Co de Phone Number MUSE * YAHAIRA [...] -Clinitek Negative Negative 05/25/2025 8:30 PM EDT [facility] Urine 05/25/2025 8:09 PM EDT 05/25/2025 8:14 PM EDT us Denisse Albert DO URINE ORDERABLES Final Result Performing Organization Address [facility] de Phone Number [facility] [address] * (ABNORMAL) B Natriuretic Peptide (05/25/2025 [...] of the patient's clinical presentation. Denisse Albert Funji LAB BLOOD ORDERABLES Final Resul t Performing Organization Address City/[facility] Co de Phone Number [facility] [address] [facility]. [address] * (ABNORMAL) High Sensitivity Troponin (05/25/2025 7:21 PM EDT) [facility] High Sensitivity Troponin 26(H) 0 - 14 ng/L 05/25/2025 8:27 PM EDT [facility] Serum 05/25/2025 7:21 PM EDT 05/25/2025 7:56 PM EDT Denisse Albert Funji LAB BLOOD ORDERABLES Final Resul t Performing Organization Address [facility] Co de Phone Number [facility] [address] [facility]. [address] * Amylase (05/25/2025 7:21 PM EDT) [facility] Amylase 22 16 - 117 U/L 05/25/2025 8:23 PM EDT [facility] Serum 05/25/2025 7:21 PM EDT 05/25/2025 7:56 PM EDT Denisse Albert LAB BLOOD ORDERABLES Final Resul t Performing Organization Address [facility] Co de Phone Number [facility] [address] [facility]. [address] * Antibody Screen (05/25/2025 7:21 PM EDT) [facility] Antibody Screen Negative 05/25/2025 8:23 PM EDT [facility] Blood 05/25/2025 7:21 PM EDT 05/25/2025 7:45 PM EDT Narrative [facility] - 05/25/2025 8:28 PM EDT Testing performed by [facility] Denisse Albert DO BLOOD BANK TEST ORDERABLES Final Result [facility] [address] * ABO/Rh (05/25/2025 7:21 PM EDT) ABO Grouping O 05/25/2025 8:07 PM EDT [facility] Rh Type Negative 05/25/2025 8:07 PM EDT [facility] Blood 05/25/2025 7:21 PM EDT 05/25/2025 7:45 PM EDT Denisse Albert DO BLOOD BANK TEST ORDERABLES Final Result Performing Organization Address [facility] Co de Phone Number [facility] [address] [facility]. [address] * #2 Blood culture-Peripheral site 2 (05/25/2025 7:21 PM EDT) Culture Result No Growth After 5 Days [facility] Blood BLOOD SPECIMEN / Unknown 05/25/2025 7:21 PM EDT 05/25/2025 8:07 PM EDT Denisse Albert DO MICROBIOLOGY - GENERAL ORDERABLE S Final Result Performing Organization Address City/[facility]/ZIP Co de Phone Number [facility] [address] [facility]. [address] * #1 Blood culture-Peripheral site 1 (05/25/2025 7:21 PM EDT) Culture Result No Growth After 5 Days [facility] Blood BLOOD SPECIMEN / Unknown 05/25/2025 7:21 PM EDT 05/25/2025 8:07 PM EDT Denisse Roosevelt LUNDBER[place] MICROBIOLOGY - GENERAL ORDERABLE S Final Result [facility] [address] * Lipase (05/25/2025 7:20 PM EDT) Pathologist [facility] Lipase 6 4 - 82 U/L 05/25/2025 8:2 3 PM EDT [facility] Plasma 05/25/2025 7:20 PM EDT 05/25/2025 7:56 PM EDT us Denisse Juan Antoniomontse DO LAB BLOOD ORDERABLES Final Resul t [facility] [address] * (ABNORMAL) Venous Blood Gas, Line/Syringe, STAT (05/25/2025 7:20 PM EDT) Pathologist [facility] PH-Line Draw 7.25(L) 7.32 - 7.42 05/25/2025 7:29 PM EDT [facility] PCO2-Line Draw 43 41 - 51 mm Hg 05/25/2025 7:29 PM EDT [facility] PO2-Line Draw 52(H) 25 - 40 mm Hg 05/25/2025 7:29 PM EDT [facility] HCO3-Line Draw 18(L) 24 - 28 mmol/L 05/25/2025 7:29 PM EDT [facility] CO2 Content-Line Draw 20(L) 25 - 29 mmol/L 05/25/2025 7:29 PM EDT [facility] Base Excess-Line Draw -7.9(L) -2.0 - 3.0 mmol/L 05/25/2025 7:29 PM EDT [facility] %HBO2-Line Draw 78.1(H) 40.0 - 70.0 % 05/25/2025 7:29 PM EDT [facility] Carboxyhgb-Joi e Draw 1.0 % 05/25/2025 7:29 PM EDT [facility] Comment: CARBOXYHEMOGLOBIN (CO) REFERENCE RANGES: Non-Smokers: <2 % Smokers: <8 % TOXIC: >20 % Methemoglobin- Line Draw 0.2 0.0 - 1.5 % 05/25/2025 7:29 PM EDT [facility] Reduced Hemoglobin-Joi e Draw 20.7(H) 0.0 - 5.0 % 05/25/2025 7:29 PM EDT [facility] Venous, Line Draw 05/25/2025 7:20 PM EDT 05/25/2025 7:26 PM EDT Denisse Albert Funji LAB BLOOD ORDERABLES Final Resul t Performing Organization Address City/[facility] Co de Phone Number [facility] [address] [place] [address] * Lactic Acid, STAT (05/25/2025 7:20 PM EDT) Lactate 0.9 0.5 - 2.2 mmol/L 05/25/2025 8:03 PM EDT [facility] Plasma 05/25/2025 7:20 PM EDT 05/25/2025 7:44 PM EDT Denisse Albert Funji LAB BLOOD ORDERABLES Final Resul t Performing Organization Address [facility] de Phone Number [facility] [address] [place] [address]. [address] * Ammonia (NH3), STAT (05/25/2025 7:20 PM EDT) Ammonia 71 27 - 90 ug/dL 05/25/2025 8:04 PM EDT [facility] Plasma 05/25/2025 7:20 PM EDT 05/25/2025 7:44 PM EDT Denisse Albert Funji LAB BLOOD ORDERABLES Final Resul t Performing Organization Address [facility] de Phone Number [facility] [address] [place] [address]. [address] * (ABNORMAL) Acetaminophen Level (Tylenol), STAT (05/25/2025 7:20 PM EDT) Acetaminophen Level <10(L) 10 - 30 ug/mL 05/25/2025 8:04 PM EDT [facility] Serum 05/25/2025 7:20 PM EDT 05/25/2025 7:44 PM EDT Denisse Albert Funji LAB BLOOD ORDERABLES Final Resul t Performing Organization Address [facility] Co de Phone Number [facility] [address] [place] [address]. [address] * Protime-INR, STAT (05/25/2025 7:20 PM EDT) Protime 14.8 12.1 - 15.1 seconds 05/25/2025 8:12 PM EDT [facility] INR 1.1 0.9 - 1.1 05/25/2025 8:12 PM EDT [facility] Comment: RECOMMENDED THERAPEUTIC RANGES USING INR : Stable oral anticoagulant therapy: 2.0 - 3.0 Mechanical prosthetic heart valve: 2.5 - 3.5 Recurrent acute myocardial infarction: 2.5 - 3.5 Plasma 05/25/2025 7:20 PM EDT 05/25/2025 7:56 PM EDT Denisse Albert Funji LAB BLOOD ORDERABLES Final Resul t Performing Organization Address [facility] Co de Phone Number [facility] [address] [place] [address]. [address] * (ABNORMAL) Hepatic Function Panel, STAT (05/25/2025 7:20 PM EDT) Total Bilirubin 3.7(H) 0.0 - 1.5 mg/dL 05/25/2025 8:23 PM EDT [facility] Bilirubin, Direct 2.74(H) 0.00 - 0.40 mg/dL 05/25/2025 8:23 PM EDT [facility] AST 460(H) 13 - 39 U/L 05/25/2025 8:23 PM EDT [facility] ALT 395(H) 7 - 52 U/L 05/25/2025 8:23 PM EDT [facility] Alkaline Phosphatase 377(H) 36 - 125 U/L 05/25/2025 8:23 PM EDT [facility] Total Protein 6.5 6.4 - 8.9 g/dL 05/25/2025 8:23 PM EDT [facility] Albumin 3.6 3.5 - 5.7 g/dL 05/25/2025 8:23 PM EDT [facility] Bilirubin, Indirect 0.96 0.00 - 1.10 mg/dL 05/25/2025 8:23 PM EDT [facility] Plasma 05/25/2025 7:20 PM EDT 05/25/2025 7:56 PM EDT Denisse Juan [employer] LAB BLOOD ORDERABLES Final Resul t [facility] [address] * Magnesium, STAT (05/25/2025 7:20 PM EDT) Magnesium 2.3 1.5 - 2.5 mg/dL 05/25/2025 8:23 PM EDT [facility] Plasma 05/25/2025 7:20 PM EDT 05/25/2025 7:56 PM EDT Denisse Albert Funji LAB BLOOD ORDERABLES Final Resul t [facility] [address] * (ABNORMAL) Renal Function Panel w/EGFR, STAT (05/25/2025 7:20 PM EDT) Sodium 140 133 - 146 mmol/L 05/25/2025 8:23 PM EDT [facility] Potassium 4.0 3.5 - 5.3 mmol/L 05/25/2025 8:23 PM EDT [facility] Chloride 108 98 - 110 mmol/L 05/25/2025 8:23 PM EDT [facility] CO2 21 21 - 33 mmol/L 05/25/2025 8:23 PM EDT [facility] Anion Gap 11 3 - 16 mmol/L 05/25/2025 8:23 PM EDT [facility] BUN 21 7 - 25 mg/dL 05/25/2025 8:23 PM EDT [facility] Creatinine 1.22 0.60 - 1.30 mg/dL 05/25/2025 8:23 PM EDT [facility] Glucose 185(H) 70 - 100 mg/dL 05/25/2025 8:23 PM EDT [facility] Calcium 8.1(L) 8.6 - 10.3 mg/dL 05/25/2025 8:23 PM EDT [facility] Phosphorus 3.8 2.1 - 4.5 mg/dL 05/25/2025 8:23 PM EDT [facility] Albumin 3.6 3.5 - 5.7 g/dL 05/25/2025 8:23 PM EDT [facility] Osmolality, Calculated 298 278 - 305 mOsm/kg 05/25/2025 8:23 PM EDT [facility] EGFR 49 05/25/2025 8:23 PM EDT [facility] Comment:As of 2022, the estimated [...] DO LAB BLOOD ORDERABLES Final Resul t [facility] [address] * (ABNORMAL) CBC, STAT (05/25/2025 7:20 PM EDT) WBC 38.7(H) 3.8 - 10.8 10E3/uL 05/25/2025 7:53 PM EDT [facility] RBC 3.38(L) 3.80 - 5.10 10E6/uL 05/25/2025 7:53 PM EDT [facility] Hemoglobin 10.3(L) 11.7 - 15.5 g/dL 05/25/2025 7:53 PM EDT [facility] Hematocrit 31.6(L) 35.0 - 45.0 % 05/25/2025 7:53 PM EDT [facility] MCV 93.3 80.0 - 100.0 fL 05/25/2025 7:53 PM EDT [facility] MCH 30.4 27.0 - 33.0 pg 05/25/2025 7:53 PM EDT [facility] MCHC 32.6 32.0 - 36.0 g/dL 05/25/2025 7:53 PM EDT [facility] RDW 18.7(H) 11.0 - 15.0 % 05/25/2025 7:53 PM EDT [facility] Platelets 279 140 - 400 10E3/uL 05/25/2025 7:53 PM EDT [facility] MPV 8.7 7.5 - 11.5 fL 05/25/2025 7:53 PM EDT [facility] Whole Blood 05/25/2025 7:20 PM EDT 05/25/2025 7:44 PM EDT us Denisse Albert DO LAB BLOOD ORDERABLES Final Resul t [facility] [address] * X-ray Portable Chest (05/25/2025 7:10 [...] Sample Type Venous 05/26/2025 5:58 AM EDT [facility] Blood, Venous 05/25/2025 6:0 7 PM EDT 05/26/2025 5:58 AM EDT Willem Shin DO POINT OF CARE TEST ORDERABLE S Final Result [facility] [address] * POC Anion Gap (05/25/2025 6:07 PM EDT) POC Anion Gap, Venous 15 3 - 16 mmol/L 05/26/2025 5:58 AM EDT [facility] Blood, Venous 05/25/2025 6:0 7 PM EDT 05/26/2025 5:58 AM EDT Willem Shin DO POINT OF CARE TEST ORDERABLE S Final Result [facility] [address] * POC creatinine (05/25/2025 6:07 PM EDT) POC Creatinine 1.27 0.60 - 1.30 mg/dL 05/26/2025 5:58 AM EDT [facility] Blood, Venous 05/25/2025 6:0 7 PM EDT 05/26/2025 5:58 AM EDT Willem Shin DO POINT OF CARE TEST ORDERABLE S Final Result [facility] [address] * POC Chloride (05/25/2025 6:07 PM EDT) Pathologist [facility] POC Chloride 107 98 - 110 mmol/L 05/26/2025 5:58 AM EDT [facility] Blood, Venous 05/25/2025 6:0 7 PM EDT 05/26/2025 5:58 AM EDT Willem Shin DO POINT OF CARE TEST ORDERABLE S Final Result [facility] [address] * (ABNORMAL) POC Hemoglobin (05/25/2025 6:07 PM EDT) POC Hemoglobin 11.6(L) 12.0 - 16.0 g/dL 05/26/2025 5:58 AM EDT [facility] Blood, Venous 05/25/2025 6:0 7 PM EDT 05/26/2025 5:58 AM EDT us Willem Shin DO POINT OF CARE TEST ORDERABLE S Final Result [facility] [address] * (ABNORMAL) POC hematocrit (05/25/2025 6:07 PM EDT) Pathologist [facility] POC Hematocrit 34.0(L) 35 - 45 % 05/26/2025 5:58 AM EDT [facility] Blood, Venous 05/25/2025 6:0 7 PM EDT 05/26/2025 5:58 AM EDT Willem Shin DO POINT OF CARE TEST ORDERABLE S Final Result Performing Organization Address City/[facility]/ZIP Co de Phone Number [facility] [address] [facility]. [address] * POC Lactate (05/25/2025 6:07 PM EDT) POC Lactate 0.92 0.50 - 2.20 mmol/L 05/26/2025 5:58 AM EDT [facility] Blood, Venous 05/25/2025 6:0 7 PM EDT 05/26/2025 5:58 AM EDT Willem Shin DO POINT OF CARE TEST ORDERABLE S Final Result [facility] [address] * (ABNORMAL) POC Glucose (05/25/2025 6:07 PM EDT) Pathologist [facility] POC Glucose, Venous 246(H) 70 - 100 mg/dL 05/26/2025 5:58 AM EDT [facility] Blood, Venous 05/25/2025 6:0 7 PM EDT 05/26/2025 5:58 AM EDT us Willem Shin DO POINT OF CARE TEST ORDERABLE S Final Result [facility] [address] [place] [address]. [address] * POC Ionized Calcium (05/25/2025 6:07 PM EDT) [facility] POC Ionized Calcium 4.50 4.50 - 5.30 mg/dL 05/26/2025 5:58 AM EDT [facility] Blood, Venous 05/25/2025 6:0 7 PM EDT 05/26/2025 5:58 AM EDT Willem Shin DO POINT OF CARE TEST ORDERABLE S Final Result Performing Organization Address [facility] Co de Phone Number [facility] [address] [facility]. [address] * POC Potassium (05/25/2025 6:07 PM EDT) [facility] POC Potassium 4.0 3.5 - 5.3 mmol/L 05/26/2025 5:58 AM EDT [facility] Blood, Venous 05/25/2025 6:0 7 PM EDT 05/26/2025 5:58 AM EDT Willem Shin DO POINT OF CARE TEST ORDERABLE S Final Result Performing Organization Address City/[facility] Co de Phone Number [facility] [address] [facility]. [address] * POC Sodium (05/25/2025 6:07 PM EDT) [facility] POC Sodium 140 136 - 146 mmol/L 05/26/2025 5:58 AM EDT [facility] Blood, Venous 05/25/2025 6:0 7 PM EDT 05/26/2025 5:58 AM EDT Willem Shin DO POINT OF CARE TEST ORDERABLE S Final Result [facility] [address] [facility]. [address] * (ABNORMAL) POC TCO2 (05/25/2025 6:07 PM EDT) POC TCO2, Venous 19(L) 25 - 29 mmol/L 05/26/2025 5:58 AM EDT [facility] Blood, Venous 05/25/2025 6:0 7 PM EDT 05/26/2025 5:58 AM EDT Willem Shin DO POINT OF CARE TEST ORDERABLE S Final Result Performing Organization Address City/[facility]/ZIP Co de Phone Number [facility] [address] [place] [facility]. [address] * (ABNORMAL) POC O2 SAT (05/25/2025 6:07 PM EDT) POC O2 Saturation, Venous 77(L) 95 - 98 % 05/26/2025 5:58 AM EDT [facility] Blood, Venous 05/25/2025 6:0 7 PM EDT 05/26/2025 5:58 AM EDT Willem Shin DO POINT OF CARE TEST ORDERABLE S Final Result [facility] [address] [facility]. [address] * (ABNORMAL) POC Base Excess (05/25/2025 6:07 PM EDT) POC Base Excess, Venous -8(L) -2 - 3 mmol/L 05/26/2025 5:58 AM EDT [facility] Blood, Venous 05/25/2025 6:0 7 PM EDT 05/26/2025 5:58 AM EDT Willem Shin DO POINT OF CARE TEST ORDERABLE S Final Result [facility] [address] * (ABNORMAL) POC HCO3 (05/25/2025 6:07 PM EDT) POC HCO3, Venous 18(L) 24 - 28 mmol/L 05/26/2025 5:58 AM EDT [facility] Blood, Venous 05/25/2025 6:0 7 PM EDT 05/26/2025 5:58 AM EDT Willem Shin DO POINT OF CARE TEST ORDERABLE S Final Result Performing Organization Address City/[facility]/ZIP Co de Phone Number [facility] [address] [facility]. [address] * (ABNORMAL) POC PO2 (05/25/2025 6:07 PM EDT) POC pO2, Venous 45(H) 25 - 40 mm Hg 05/26/2025 5:58 AM EDT [facility] Blood, Venous 05/25/2025 6:0 7 PM EDT 05/26/2025 5:58 AM EDT Willem Shin DO POINT OF CARE TEST ORDERABLE S Final Result [facility] [address] [place] [facility]. [address] * (ABNORMAL) POC PCO2 (05/25/2025 6:07 PM EDT) POC pCO2, Venous 36(L) 41 - 51 mm Hg 05/26/2025 5:58 AM EDT [facility] Blood, Venous 05/25/2025 6:0 7 PM EDT 05/26/2025 5:58 AM EDT Willem Shin DO POINT OF CARE TEST ORDERABLE S Final Result [facility] [address] * (ABNORMAL) POC pH (05/25/2025 6:07 PM EDT) POC pH, Venous 7.30(L) 7.32 - 7.42 05/26/2025 5:58 AM EDT [facility] Blood, Venous 05/25/2025 6:0 7 PM EDT 05/26/2025 5:58 AM EDT Willem Shin DO POINT OF CARE TEST ORDERABLE S Final Result Performing Organization Address City/[facility] Co de Phone Number [facility] [address] [facility]. [address] documented in this encounter Visit Diagnoses Diagnosis Septic shock, resolved- Primary Mastocytosis Congenital pigmentary anomaly of skin Shock (CMS-HCC) Unspecified shock Elevated LFTs Other abnormal blood chemistry Gastroesophageal reflux disease without esophagitis Esophageal reflux Morbid obesity (CMS-HCC) Morbid obesity Pneumonia of both lower lobes due to infectious organism Acute kidney injury ([facility]-HCC) Coronary artery disease involving [place] coronary artery of [place] heart without angina pectoris Elevated LFTs Other [...] PM EDTAssociated Problem(s): Coronary artery disease involving [place] coronary artery of [place] heart without angina pectoris See MICU notes [...] Problem(s): Opioid-induced constipation Intermittent BRBPR 1 month BRAILLE TYPIST. 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 Labeled tablet strength may vary by home economics extension worker (may be expressed as grams of carbohydrates) [...] extravasation, notify provider (), and refer to [facility] Extravasation Management Guidelines. , IV Line Type: [...] in sodium chloride 0.9 % 100 mL [id number] 4.5 g, Intravenous, at 200 mL/hr, Once, On Fri05/25/25 at 2000, For 1 dose, Use Cnhe9Pck Adapter - Mix Thoroughly Before Administration New Bag 05/25/2025 8:22 PM EDT 4.5 g 200 mL/hr piperacillin-tazobactam (ZOSYN) 4.5 g in sodium chloride 0.9 % 100 mL [id number] 4.5 g, Intravenous, at 25 mL/hr, Every 8 hours, First dose on Fri05/26/25 at 0400, Use Djdk9Get Adapter - Mix Thoroughly Before Administration New [...] in sodium chloride 0.9 % 100 mL [id number] (CANCELED)(Linked Group 2) 4.5 g, Intravenous, at 25 mL/hr, Every 8 hours, First dose on Fri05/26/25 at 0400, Use Zpfv2Ekg Adapter - Mix Thoroughly Before Administration 0325 [...] ELLIPTA 0903 (Given - Provider: Colten Gordillo, DIRECTOR PRODUCT MANAGEMENT) 0903 (Given - Provider: Tram Harman, DIRECTOR PRODUCT MANAGEMENT) 0825 (Hold - Provider: Regla Huynh, LIN [...] needed. Labeled tablet strength may vary by home economics extension worker (may be expressed as grams of carbohydrates) [...] 1 dose 0841 (Given - Provider: Denisse Juraez RN, RN) traMADoL (ULTRAM) tablet 50 mg [...] in sodium chloride 0.9 % 100 mL [id number] (COMPLETED) 4.5 g, Intravenous, at 200 mL/hr, Once, On Fri05/25/25 at 2000, For 1 dose, Use Emvj4Ech Adapter - Mix Thoroughly Before Administration Followed by piperacillin-tazobactam (ZOSYN) 4.5 g in sodium chloride 0.9 % 100 mL Hibv1Flc (CANCELED)Jump to med 4.5 g, Intravenous, at 25 mL/hr, Every 8 hours, First dose on Fri05/26/25 at 0400, Use Klik3Kzp Adapter - Mix Thoroughly Before Administration Group [...] documented as of this encounter Care Teams Steel Analyst Relationship Specialty Start Date End Date Manas Jenkins MD [address] [place] [address] PCP - General Family Medicine 10/14/17 documented as of this encounter
--- OUTSIDE RECORDS SUMMARY | 2025-06-09 11:15 | XMS_ITS | Encounter Summary ---
[facility] Address [address] [place] [id number] Care Team Providers Care Sales And Leasing Consultant Name Role Phone Manas Jenkins MD Primary Care Provider + Reason for Referral * Physical Therapy (Routine) - Closed Specialty Diagnoses / Procedures Referred By Contac t Referred To Contact Physical Therapy Diagnoses Pneumonia of both lungs due to infectious organism, unspecified part of lung Physical deconditioning Procedures [place] OFFICE/OUTPATIENT NEW MODERATE MDM 45 MINUTES Manas Jenkins MD [address] [place] [address] [place] [address] Phone: tel: fax: [facility] - OUTPT PHYSICAL THERAPY [address] [place] [address] Phone: tel: fax: Referral ID Status Reason Start Date Expiration Date V isits Requested Visits Authorized [id number] Closed Specialty Services Required 06/09/2025 09/08/2026 1 1 Reason for Visit * Reason Comments Hosp Discharge FU / sepsis Pt state's, she is still very weak. Encounter Details Date Type Department Care Team (Latest Contact Info) Description 06/09/2025 11:15 AM EDT Office Visit [facility] FAMILY MEDICINE [address] [place] [address] Manas Jenkins MD [address] [place] [address] Urinary tract infection without hematuria, site unspecified [...] Smoking Tobacco: Former Cigarettes 0.5 15 1 0 - 2004 Passive Smoke Exposure: Past Smokeless [...] Hospital Stay: Patient was hospitalized in the [facility] from May 25 to May 28 after being transferred from [facility] when patient presented with illness and diagnosis of septic shock. Patient had a white blood cell count of 30,000, CT scan of the chest raised suspicion for bilateral pneumonia. She had severe elevation of liver functiontests consistent with shock liver. Due to the level of care needed patient was transferred to [facility]. Patient had a 3-day hospital stay and was discharged with plans for home healthinterventions. Patient resides outside of the [facility] health system. She is in need of [...] social history, past surgicalhistory, and problem list. [facility] Records, Cr--1.5, K--2.4, AST--900+, ALT 500+, Total [...] [facility]. 7. Overall I [...] Description 09/23/2025 3:45 PM EDT Office Visit [facility] FAMILY MEDICINE [address] [facility] [place] [address] Manas Jenkins MD [address] [place] [address] [place] [address] documented as of this encounter Procedures Procedure [...] 11:4 6 AM EDT 06/09/2025 Narrative [facility] (AMBULATORY) - 06/10/2025 7:09 AM EDT Performed at: - [address] [id number] Industrial Tech Instructor: Dave Escudero PhD, Phone: [phone] Patient Fasting: Y us Manas Jenkins MD LAB BLOOD ORDERABLES Fin al Result [facility] (AMBULATORY) [address] [place] [address], [facility] [address] [place] [address], * Vitamin D,25-Hydroxy (06/09/2025 11:46 AM EDT) Pathologist [facility] 25 Hydroxy, Vitamin D 55.2 30.0 - 100.0 ng/mL [facility] Comment: Vitamin D deficiency has been defined by the [place] of Medicine and an Endocrine Society practice guideline as a level of serum 25-OH vitamin D less than 20 ng/mL (1,2). The Endocrine Society went on to further define vitamin D insufficiency as a level between 21 and 29 ng/mL (2). 1. IOM ([place] of Medicine). 2010. Dietary reference intakes for calcium and D. [place]: The National Academies Press. 2. Kael MF, Kd KRAMER, Vaelnte HOLCOMB, et al. Evaluation, treatment, and prevention of vitamin D deficiency: an Endocrine Society clinical practice guideline. JCEM. 2010; 96(5):1911-30. Blood 06/09/2025 11:4 6 AM EDT 06/09/2025 Narrative [facility] (AMBULATORY) - 06/10/2025 7:09 AM EDT Performed at: 01 - [address] [id number] Industrial Tech Instructor: aDve Escudero PhD, Phone: [phone] Patient Fasting: Y Manas Jenkins MD LAB BLOOD ORDERABLES Fin al Result [facility] [address] [place] [address], [facility] [address] [place] [address], * (ABNORMAL) Comprehensive Metabolic Panel (06/09/2025 11:46 [...] 11:4 6 AM EDT 06/09/2025 Narrative [facility] ([facility]) - 06/10/2025 7:09 AM EDT Performed at: 01 - [address] [id number] Industrial Tech Instructor: Dave Escudero PhD, Phone: [phone] Patient Fasting: Y us Manas Jenkins MD LAB BLOOD ORDERABLES Fin al Result [facility] (AMBULATORY) [address] [place] [address], [place] [phone] [facility] [address] [place] [address], [place] [phone] documented in this encounter Visit Diagnoses Diagnosis [...] documented as of this encounter Care Teams Sales And Leasing Consultant Relationship Specialty Start Date End Date Manas Jenkins MD [address] [place] [address] PCP - General Family Medicine 05/02/22 documented as of this encounter
[2025-06-17 21:14] VITALS: BP 80/51; PULSE 85; RESP 18; TEMP 36.8; O2SAT 95; BMI 41.5
--- OUTSIDE RECORDS SUMMARY | 2025-06-17 21:29 | XMS_ITS | Clinical Summary ---
Author Organization [employer] [facility] Address [address] [place] [address] Phone Care Team Providers Care Service Worker Name Role Phone Javi Corrales MD Primary Care Physician [phone] [ ] Conditions or Problems No information available. Medications No information available. Medications Administered No information available. Allergies, Adverse Reactions, Alerts No information available. Results No information available. Plan of Care No information available. Procedures No information available. Vital Signs No information available. Immunizations No information available. Advance Directives No information available.
--- OUTSIDE RECORDS SUMMARY | 2025-06-17 21:29 | XMS_ITS | Encounter Summary ---
Author Organization [facility] Address [address] [place] [address] Care Team Providers Care Attendance Clerk Name Role Phone Manas Jenkins MD Primary Care Provider [phone] Source Comments This information has been disclosed [...] release of HIV test results or diagnoses. [id number] Encounter Details Date Type Department Care Team (Latest Contact Info) Description 05/25/2025 Travel 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 Tobacco Use Types Packs/Day Years Used Date Smoking Tobacco: Former Cigarettes Smokeless Tobacco: Never Comments:Former 2 PPD cigare tte smoker, quit ~2004 Alcohol Use Standard Drinks/Week Comments No 0 (1 standard drink = 0.6 oz pur e alcohol) Utilities Answer Date Recorded In the past 12 months has [employer], gas, oil, or water [employer] threatened to shut off services in your [...] any time in the past 12 m [facility], were you homeless or living in a [place] health care facility (including now)? No 05/25/2025 Comments No Sex and Gender Information Value Date Recorded Sex Assigned at Not on file Legal Sex Female 11:13 AM EST Gender Identity Not on file Sexual Orientation Not on file documented as of this encounter Functional Status * Audit-C Score Answer Date of Assessment Author -1 05/25/2025 7:02 PM Kirt Miller RN * Question Answer Date of Assessment Author Q1: How often do you have a drink containing alcohol? Patient declined 05/25/2025 7:02 PM Kirt Miller R N Q2: How many drinks containing alcohol do you have on a typical day when you are drinking? Patient declined 05/25/2025 7:02 PM Kirt Miller R N Q3: How often do you have six or more drinks on one occasion? Patient declined 05/25/2025 7:02 PM Kirt Miller R N documented as of this encounter Plan of Treatment Not on file documented as of this encounter Visit Diagnoses Not on filedocumented in this encounter Additional Health Concerns Assessment Noted Time PHQ-9 Depression Total Score: 0 10/14/20 17 10:00 AM EST documented as of this encounter Care Teams Attendance Clerk Relationship Specialty Start Date End Date Manas Jenkins MD [address] [place] [address] PCP - General Family Medicine 10/14/17 documented as of this encounter
--- OUTSIDE RECORDS SUMMARY | 2025-06-17 21:30 | XMS_ITS | Encounter Summary ---
Author Organization [facility] Address [address] [place] [address] Care Team Providers Care Artificial Stone Setter Name Role Phone Manas Jenkins MD Primary Care Provider + Reason for Visit * Reason Comments Med Refill Encounter Details Date Type Department Care Team (Late st Contact Info) Description 04/20/2025 Refill [facility] MEDICINE [address] [place] [address] Manas Jenkins MD [address] [place] [address] 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 Tobacco Use Types Packs/Day Years Used Date Smoking Tobacco: Former Cigarettes 0.5 15 1 0 - 2004 Passive Smoke Exposure: Past Smokeless Tobacco: Never Alcohol Use Standard Drinks/Week Comments Not Currently 0 (1 standard drink = 0.6 oz pur e alcohol) PHQ-2 Answer Date Recorded Retired PHQ-9: Brief Depression Severity Measure Score 2 01/07/2023 PHQ-2 Answer Date Recorded Patient Health Questionnaire-9 Score 6 11/04/2024 Comments Unknown Sex and Gender Information Value Date Recorded Sex Assigned at Not on file Legal Sex Female 11:44 AM EDT Gender Identity Not on file Sexual Orientation Not on file documented as of this encounter Plan of Treatment Upcoming Encounters Date Type Department Care Team (Late st Contact Info) Description 09/23/2025 3:45 PM EDT Office Visit [facility] MEDICINE [address] [place] [address] Manas Jenkins MD [address] [place] [address] documented as of this encounter Visit Diagnoses Not on filedocumented in this encounter Additional Health Concerns Assessment Noted Time PHQ-2 Depression Total Score: 1 11/27/19 24 1:57 PM EST documented as of this encounter Care Teams Artificial Stone Setter Relationship Specialty Start Date End Date Manas Jenkins MD [address] [address] PCP - General Family Medicine 05/02/22 documented as of this encounter
--- OUTSIDE RECORDS SUMMARY | 2025-06-17 21:30 | XMS_ITS | Encounter Summary ---
Author Organization [facility] Address [address] [place] [address] Care Team Providers Care Water Carter Name Role Phone Manas Jenkins MD Primary Care Provider + Reason for Visit * Reason Onset Date Comments HOME HEALTH VERBAL NEEDED 05/30/2025 Encounter Details Date Type Department Care Team (Late st Contact Info) Description 05/30/2025 Telephone [facility] FAMILY MEDICINE [address] [place] [address] Manas Jenkins MD [address] [place] [address] HOME HEALTH VERBAL NEEDED 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 Tobacco Use Types Packs/Day Years [...] on file documented as of this encounter Miscellaneous Notes * Telephone Encounter - Trace Gonzales MA - 06/06/2025 9:33 AM EDT Left voicemail with patient. HUB TO RELAY: Please find out which outpatient PT center she would like to go to? * Telephone Encounter - Genesis Peters - 06/06/2025 8:42 AM EDT [facility] with [facility] stated that they are out of her service area, however the patient has reqeusted to do outpatient physical therapy instead if possible. Please advise. * Telephone Encounter - Sol Boyd RegSched Rep - 05/31/2025 2:13 PM EDT SOUTH CALLED BACK TO RELAY SHE DID FINALLY GET IN CONTACT WITH THE PATIENT, AND DUE TO PATIENTS APPOINTMENTS SHE HAS REQUESTED TO HAVE HER START DATE ON 06/06 * Telephone Encounter - Maribell Rankin RegSched Rep - 05/30/2025 11:03 AM EDT [facility] WITH [facility] CALLED NEEDING A VERBAL TO DELAY THEIR INITIAL VISIT WITH PATIENT. THEY HAVE BEEN UNABLE TO GET IN CONTTACT WITH PATIENT YET. PLEASE CALL [phone] WHICH IS ASECURED LINE documented in this encounter Plan of Treatment Upcoming Encounters Date Type Department Care Team (Late st Contact Info) Description 09/23/2025 3:45 PM EDT Office Visit [facility] FAMILY MEDICINE [address] [place] [address] Manas Jenkins MD [address] [place] [address] documented as of this encounter Visit Diagnoses Not on filedocumented in this encounter Additional Health Concerns Assessment Noted Time PHQ-2 Depression Total Score: 1 11/27/19 24 1:57 PM EST documented as of this encounter Care Teams Water Carter Relationship Specialty Start Date End Date Manas Jenkins MD [address] [place] [address] PCP - General Family Medicine 05/02/22 documented as of this encounter
--- OUTSIDE RECORDS SUMMARY | 2025-06-17 21:30 | XMS_ITS | Encounter Summary ---
Author Organization [facility] Address [address] [place] [address] Care Team Providers Care Belt Back Operator Name Role Phone Manas Jenkins MD Primary Care Provider + Reason for Visit * Reason Onset Date Comments Medication Problem 06/07/2025 Encounter Details Date Type Department Care Team (Late st Contact Info) Description 06/07/2025 Refill [facility] FAMILY MEDICINE [address] [place] [address] Manas Jenkins MD [address] [place] [address] Primary osteoarthritis of right knee; Chronic right-sided low back pain with right-sided sciatica 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 Tobacco Use Types Packs/Day Years [...] encounter Miscellaneous Notes * Telephone Encounter - Yue Maldonado RegSched Rep - 06/07/2025 2:56 PM EDT Caller: ShawneeLaura Relationship: Self Best call back number: [phone] Requested Prescriptions: Requested Prescriptions Pending Prescriptions Disp Refills traMADol (ULTRAM) 50 MG tablet 90 tablet 0 Sig: Take 1 tablet by mouth Every 8 (Eight) Hours As Needed for Moderate Pain. Pharmacy where request should be sent: [address] [phone] [facility] [phone] Last office visit with prescribing clinician: 05/20/2025 Last telemedicine visit with prescribing clinician: Visit date not found Next office visit with prescribing clinician: 06/09/2025 Additional details provided by patient: Does the patient have less than a 3 day supply: [x] Yes [] No Would you like a call back once the refill request has been completed: [] Yes [x] No If the office needs to give you a call back, can they leave a voicemail: [] Yes [x] No Raymond Patel 06/07/25 14:56 EDT documented in this encounter Plan of Treatment Upcoming Encounters Date Type Department Care Team (Late st Contact Info) Description 09/23/2025 3:45 PM EDT Office Visit [facility] FAMILY MEDICINE [address] [facility] [place] [address] Manas Jenkins MD [address] [place] [address] documented as of this encounter Visit Diagnoses Diagnosis Primary osteoarthritis of right knee Chronic right-sided low back pain with right-sided sciatica documented in this encounter Additional Health Concerns Assessment Noted Time PHQ-2 Depression Total Score: 1 11/27/19 24 1:57 PM EST documented as of this encounter Care Teams Belt Back Operator Relationship Specialty Start Date End Date Manas Jenkins MD [address] [place] [address] PCP - General Family Medicine 6/9/22 documented as of this encounter
--- OUTSIDE RECORDS SUMMARY | 2025-06-17 21:30 | XMS_ITS | Encounter Summary ---
[facility] Address [address] [place] [address] Care Team Providers Care Garment Mender Name Role Phone Manas Jenkins MD Primary Care Provider + Reason for Visit * Reason Onset Date Comments Med Refill 03/01/2025 Encounter Details Date Type Department Care Team (Late st Contact Info) Description 03/01/[address] [facility] FAMILY MEDICINE [address] [place] [address] Manas Jenkins MD [address] [place] [address] Primary osteoarthritis of right knee; [...] encounter Miscellaneous Notes * Telephone Encounter - Khalida Malcolm MA - 03/01/2025 8:58 AM EDT Pt aware Dr Jenkins is out this wk. Suggested she rock picker the remaining refill at the pharmacy until he returns. She understood. * Telephone Encounter - Lorena Chawla RegSched Rep - 03/01/2025 8:11 AM EDT Caller: Laura [place] Relationship: Self Best call back number: [phone] Requested Prescriptions: Requested Prescriptions Pending Prescriptions Disp Refills traMADol (ULTRAM) 50 MG tablet 90 tablet 1 Sig: Take 1 tablet by mouth Every 8 (Eight) Hours As Needed for Moderate Pain. Pharmacy where request should be sent: [facility] [address] [phone] [facility] [phone] FX Last office visit with prescribing clinician: 11/04/2024 Last telemedicine visit with prescribing clinician: Visit date not found Next office visit with prescribing clinician: 04/01/2025 Additional details provided by patient: PATIENT HAS 2 DAYS LEFT. SHE WOULD LIKE TO SEE IF DR. STERLINGOULD INCREASE THE DOSAGE ON THIS MEDICATION. SHE STATES SHE HAS BEEN ON THIS DOSE FOR OVER A YEAR AND IT JUST DOESN'T HELP LIKE IT USED TO. Does the patient have less than a 3 day supply: [x] Yes [] No Would you like a call back once the refill request has been completed: [] Yes [x] No If the office needs to give you a call back, can they leave a voicemail: [] Yes [x] No Raymond Romero Rep 03/01/25 08:12 EDT documented in this encounter Plan of Treatment Upcoming Encounters Date Type Department Care Team (Late st Contact Info) Description 09/23/2025 3:45 PM EDT Office Visit [facility] FAMILY MEDICINE 210 [facility] [address] [place] [address] Manas Jenkins MD [address] [facility] [address] [address] documented as of this encounter Visit Diagnoses Diagnosis Primary osteoarthritis of right knee Chronic right-sided low back pain with right-sided sciatica documented in this encounter Additional Health Concerns Assessment Noted Time PHQ-2 Depression Total Score: 1 11/27/19 24 1:57 PM EST documented as of this encounter Care Teams Garment Mender Relationship Specialty Start Date End Date Manas Jenkins MD [address] [place] [address] PCP - General Family Medicine 05/02/22 documented as of this encounter
--- OUTSIDE RECORDS SUMMARY | 2025-06-17 21:30 | XMS_ITS | Encounter Summary ---
[facility] Address [address] [place] [address] Care Team Providers Care Iron Molder Helper Name Role Phone Manas Jenkins MD Primary Care Provider + Reason for Visit * Reason Onset Date Comments Med Management 06/15/2025 Encounter Details Date Type Department Care Team (Late st Contact Info) Description 06/15/2025 Telephone [facility] [address] [place] [address] Manas Jenkins MD [address] [place] [address] Med Management 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 Tobacco Use Types Packs/Day Years [...] encounter Miscellaneous Notes * Telephone Encounter - Zee Marcos MA - 06/15/2025 3:19 PM EDT Informed pt's that we have this message from earlier this morning and Dr. Jenkins has not responded to it yet. * Telephone Encounter - Haydee Matt RegSched Rep - 06/15/2025 3:04 PM EDT Caller: Adal Mallory Relationship: Emergency Contact Best call back number: [phone] What is the best time to reach you: ANYTIME Who are you requesting to speak with (clinical staff, provider, specific staff member): CLINICAL STAFF What was the call regarding: PATIENT WANTS TO KNOW IF SHE CAN GO BACK ON HER FLUID PILL BECAUSE HERLEGS ARE SWELLING? documented in this encounter Plan of Treatment Upcoming Encounters Date Type Department Care Team (Late st Contact Info) Description 09/23/2025 3:45 PM EDT Office Visit [facility] [address] [facility] [place] [address] Manas Jenkins MD [address] [address] documented as of this encounter Visit Diagnoses Not on filedocumented in this encounter Additional Health Concerns Assessment Noted Time PHQ-2 Depression Total Score: 1 11/27/19 24 1:57 PM EST documented as of this encounter Care Teams Iron Molder Helper Relationship Specialty Start Date End Date Manas Jenkins MD [address] [place] [address] PCP - General Family Medicine 05/02/22 documented as of this encounter
--- OUTSIDE RECORDS SUMMARY | 2025-06-17 21:30 | XMS_ITS | Encounter Summary ---
Author Organization [facility] Address [address] [place] [address] Care Team Providers Care Human Resources Receptionist Name Role Phone Manas Jenkins MD Primary Care Provider + Encounter Details Date Type Department Care Team (Latest Contact Info) Description 05/20/2025 Travel 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 Tobacco Use Types Packs/Day Years Used Date Smoking Tobacco: Former Cigarettes 0.5 15 1 990 - 2004 Passive Smoke Exposure: Past Smokeless [...] documented as of this encounter Functional Status documented as of this encounter Plan of Treatment Upcoming Encounters Date Type Department Care Team (Late st Contact Info) Description 09/23/2025 3:45 PM EDT Office Visit [facility] [address] [facility] [place] [address] Manas Jenkins MD [address] [address] documented as of this encounter Visit Diagnoses Not on filedocumented in this encounter Additional Health Concerns Assessment Noted Time PHQ-2 Depression Total Score: 1 11/27/19 24 1:57 PM EST documented as of this encounter Care Teams Human Resources Receptionist Relationship Specialty Start Date End Date Manas Jenkins MD [address] [place] [address] PCP - General Family Medicine 05/02/22 documented as of this encounter
--- OUTSIDE RECORDS SUMMARY | 2025-06-17 21:30 | XMS_ITS | Encounter Summary ---
Author Organization [facility] Address [address] [place] [address] Care Team Providers Care Crayon Sorting Machine Feeder Name Role Phone Stevo Salter MD Primary Care Provider [phone] Encounter Details Date Type Department Care Team (Late st Contact Info) Description 05/25/2025 Orders Only External Location [address] [place] [phone] [address] [place] [address] [id number] 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 Tobacco Use Types Packs/Day Years [...] Procedure Name Priority Date/Time Associated Diagnosis Comments US OUTSIDE IMAGES 05/25/2025 2:17 PM EDT documented in this encounter Results * US OUTSIDE IMAGES (05/25/2025 2:17 PM EDT) Anatomical Region Laterality Modality Ultrasound 05/25/2025 2:17 PM EDT us Jarod Cazares IMG US PROCEDURES Final Result documented in this encounter Visit Diagnoses Not on filedocumented in this encounter Care Teams Crayon Sorting Machine Feeder Relationship Specialty Start Date End Date Stevo Salter MD [address] [place] [address] [address] [place] [id number] PCP - General 04/06/21 documented as of this encounter
--- OUTSIDE RECORDS SUMMARY | 2025-06-17 21:30 | XMS_ITS | Encounter Summary ---
[facility] [address] [place] [address] Care Team Providers Care Bindery Technician Name Role Phone Manas Jenkins MD Primary Care Provider + Reason for Visit * Reason Onset Date Comments Leg Swelling 06/15/2025 Encounter Details Date Type Department Care Team (Late st Contact Info) Description 06/15/2025 Telephone [facility] [address] [place] [address] Manas Jenkins MD [address] [place] [address] Leg Swelling 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 Tobacco Use Types Packs/Day Years [...] Telephone Encounter - Khalida Malcolm MA - 06/15/2025 4:03 PM EDT Adal aware and understood. * Telephone Encounter - Manas Jenkins MD - 06/15/2025 3:24 PM EDT Yes, start with one furosemide per day. She also needs to monitor measure the amount of fluid she is drinking. No more than about 7 cups(8 ounce glasses) of fluid per day. * Telephone Encounter - Neal Giron RegSched Rep - 06/15/2025 1:40 PM EDT Caller: Adal Mallory Relationship: Emergency Contact Best call back number: [phone] What was the call regarding: ADAL NOTICED YESTERDAY THAT HIS 'S LEGS STARTED SWELLING AGAIN. SHE HAS SOME FUROSEMIDE. SHOULD HE START HER ON IT AGAIN? Is it okay if the provider responds through MyChart: NO documented in this encounter Plan of Treatment Upcoming Encounters Date Type Department Care Team (Late st Contact Info) Description 09/23/2025 3:45 PM EDT Office Visit [facility] [address] [place] [phone] Manas Jenkins MD [address] [address] documented as of this encounter Visit Diagnoses Not on filedocumented in this encounter Additional Health Concerns Assessment Noted Time PHQ-2 Depression Total Score: 1 11/27/19 24 1:57 PM EST documented as of this encounter Care Teams Bindery Technician Relationship Specialty Start Date End Date Manas Jenkins MD [address] [place] [address] PCP - General Family Medicine 05/02/22 documented as of this encounter
--- OUTSIDE RECORDS SUMMARY | 2025-06-17 21:30 | XMS_ITS | Encounter Summary ---
[facility] Address [address] [place] [address] Care Team Providers Care Evaporator Repairer Name Role Phone Manas Jenkins MD Primary Care Provider + Reason for Visit * Reason Comments Med Refill Encounter Details Date Type Department Care Team (Late st Contact Info) Description 06/17/[address] [facility] [address] [place] [address] Manas Jenkins MD [address] [place] [address] 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 Tobacco Use Types [...] Description 09/23/2025 3:45 PM EDT Office Visit [facility] [address] [place] [address] Manas Jenkins MD [address] [address] documented as of this encounter Visit Diagnoses Not on filedocumented in this encounter Additional Health Concerns Assessment Noted Time PHQ-2 Depression Total Score: 1 11/27/19 24 1:57 PM EST documented as of this encounter Care Teams Evaporator Repairer Relationship Specialty Start Date End Date Manas Jenkins MD [address] [address] PCP - General Family Medicine 05/02/22 documented as of this encounter
--- OUTSIDE RECORDS SUMMARY | 2025-06-17 21:30 | XMS_ITS | Clinical Summary ---
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 [id number] Health Allergies Active Allergy Reactions Criticality Noted Date Comments Naproxen Sodium 10/14/2017 Fexofenadine 10/14/2017 Medications DULoxetine (CYMBALTA) 60 MG capsule Take 1 capsule (60 mg total) by mouth daily. Active omeprazole (PRILOSEC) 20 MG capsule Take 1 capsule (20 mg total) by mouth every morning before breakfast. Active furosemide (LASIX) 40 MG tablet Take 1 tablet (40 mg total) by mouth 2 times a day. Active aspirin 81 MG EC tablet Take 1 tablet (81 mg total) by mouth daily. Active atorvastatin (LIPITOR) 40 MG tablet Take 1 tablet (40 mg total) by mouth daily. Active LORazepam (ATIVAN) 0.5 MG tablet Take 1 tablet (0.5 mg total) by mouth daily as needed for Anxiety. Active carvediloL (COREG) 3.125 MG tablet Take 1 tablet (3.125 mg total) by mouth 2 times a day. Active cholecalcifero l, vitamin D3, 50 mcg (2,000 unit) Cap Take 1 capsule by mouth daily. 04/11/202 5 Active celecoxib (CELEBREX) 100 MG capsule Take 1 capsule (100 mg total) by mouth 2 times a day. 5 Active famotidine (PEPCID) 20 MG tablet Take 1 tablet (20 mg total) by mouth daily. 4 Active TRELEGY ELLIPTA 100-62.5-25 mcg DsDv Inhale 1 puff into the lungs daily. 3 Active hydrOXYzine HCL (ATARAX) 25 MG tablet Take 1 tablet (25 mg total) by mouth 2 times a day as needed for Itching or Anxiety. 5 Active LINZESS 72 mcg Cap Take 1 capsule (72 mcg total) by mouth every morning before breakfast. 5 Active sacubitriL-annmarie sartan (ENTRESTO) 24-26 mg Tab Take 1 tablet by mouth 2 times a day. Active spironolactone (ALDACTONE) 25 MG tablet Take 1 tablet (25 mg total) by mouth 2 times a day. Active traMADoL (ULTRAM) 50 mg tablet Take 1 tablet (50 mg total) by mouth every 8 hours as needed for Pain. 5 Active gabapentin (NEURONTIN) 100 MG capsule Take 1 capsule (100 mg total) by mouth 3 times a day. Active oxybutynin (DITROPAN-XL) 10 MG 24 hr tablet Take 1 tablet (10 mg total) by mouth daily. Active topiramate (TOPAMAX) 100 MG tablet Take 1.5 tablets (150 mg total) by mouth at bedtime. Active topiramate (TOPAMAX) 100 MG tablet Take 1 tablet (100 mg total) by mouth daily. 5 Active pramipexole (MIRAPEX) 0.5 MG tablet Take 2.25 mg by mouth 3 times a day. 05/25/20 25 Discontinued loratadine (CLARITIN) 10 mg tablet Take 10 mg by mouth daily. 05/25/20 25 Discontinued triamterene-hy drochlorothiaz willy (MAXZIDE) 75-50 mg tablet Take 1 tablet by mouth daily. 05/25/20 25 Discontinued proMETHazine (PHENERGAN) 25 MG tablet Take 25 mg by mouth every 6 hours as needed for Nausea. 05/25/20 25 Discontinued potassium chloride (KLOR-CON M20) 20 MEQ tablet Take 20 mEq by mouth daily. 05/25/20 Discontinued zolpidem (AMBIEN) 10 mg tablet Take 10 mg by mouth at bedtime as needed for Sleep. 05/25/20 Discontinued ranitidine (ZANTAC) 300 MG capsule Take 300 mg by mouth daily. 05/25/20 Discontinued primidone (MYSOLINE) 50 MG tablet Take 50 mg by mouth 4 times a day. 05/25/20 Discontinued HYDROcodone-ac etaminophen (NORCO) 10-325 mg per tablet Take 1 tablet by mouth every 6 hours as needed for Pain. 05/25/20 Discontinued proCHLORPERazi ne (COMPAZINE) 10 MG tablet Take 10 mg by mouth every 6 hours as needed. 05/25/20 Discontinued mirtazapine (REMERON) 15 MG tablet Take 1 tablet (15 mg total) by mouth at bedtime. 4 05/25/20 Discontinued QUEtiapine (SEROQUEL) 50 MG tablet Take 1 tablet (50 mg total) by mouth at bedtime. 5 05/25/20 25 Discontinued topiramate (TOPAMAX) 100 MG tablet Take 2.5 tablets (250 mg total) by mouth daily. 5 05/28/20 25 Discontinued levoFLOXacin (LEVAQUIN) 500 MG tablet Take 1 tablet (500 mg total) by mouth daily for 3 days. 3 tablet 05/28/2025 1:26 PM EDT 5 06/01/20 Active Problems Problem Noted Date Diagnosed Date Morbid obesity 05/27/2025 Pneumonia of both lower lobes due to infectious organism 05/27/2025 Elevated LFTs 05/27/2025 Assessment & Plan (05/27/2025 4:09 PM EDT): Most likely ischemic hepatitis. Gallstone passage also possible (elevated total bili). Imaging w/o overt cause. GI followed and VIOLET for advanced imaging/dx evaluation. Also considered role of statin. - Hold statin for now Simple chronic bronchitis 05/27/2025 APARNA (obstructive sleep apnea) 05/27/2025 Assessment & Plan (05/27/2025 4:09 PM EDT): - OP sleep study Acute respiratory failure with hypoxia Assessment & Plan (05/27/2025 4:09 PM EDT): No isolated soruce of infection. Cholangitis with stone passage (rapid improvement) vs. CAP strep pneumonia. Downtrending neutrophilic-predominant leukocytosis. - Strep pneumo + legionella Urine ag - Abx: - Zosyn (05/25-) - Based on above studies, de-escalate for total Abx course of 7 days (IV or PO) Acute metabolic encephalopathy 05/27/2025 Assessment & Plan (05/27/2025 4:09 PM EDT): OARRS reviewed -- Lorazepam 0.5 mg (60 tablets) filled 01/18/25, though takes infrequently PRN. Acute met. Encephalopathy most likely hospital-acquired delirium iso acute illness. Given HD stability, adding delirium precautions. - Holding home ativan - Hydroxyzine 10 mg BID PRN for anxiety HFimpEF 05/27/2025 Assessment & Plan (05/27/2025 4:09 PM EDT): See MICU notes for details of cardiac history. Of note, GDMT at home low-dose entresto, low-dose coreg, aldactone 25 mg BID, not on SGLT2i though possible candidate (no prior DKA/UTI). 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 - Hold home linzess resume upon DC - Miralax to BID + Senna scheduled QHS (no BM 2 days) - Suppository tomorrow if no BM Chronic back+knee pain with R-sided sciatica 02/2025 Assessment & Plan (05/27/2025 4:11 PM EDT): On Tramadol 50 mg daily, gabapentin 100 mg TID, cymbalta 60 mg daily. IV Dilaudid given in MICU. - Home tramadol, gabapentin held d/t no active rx, cymbalta - Resuming Celecoxib (FER resolved) - Scheduled Tylenol + Robaxin and 2.5 mg Q6 Oxy PRN Septic shock, resolved 05/25/2025 Assessment & Plan (05/27/2025 4:09 PM EDT): No isolated soruce of infection. Cholangitis with stone passage (rapid improvement) vs. CAP strep pneumonia. Downtrending neutrophilic-predominant leukocytosis. - Strep pneumo + legionella Urine ag - Abx: - Zosyn (05/25-) - Based on above studies, de-escalate for total Abx course of 7 days (IV or PO) Chronic diastolic (congestive) heart failure 06/2024 Coronary artery disease invo [place]ving [place] coronary artery of [place] heart without angina pectoris 02/26/2023 Assessment & Plan (05/27/2025 4:09 PM EDT): See MICU notes for details of cardiac history. Of note, GDMT at home low-dose entresto, low-dose coreg, aldactone 25 mg BID, not on SGLT2i though possible candidate (no prior DKA/UTI). - GDMT: - Preload: No diuresis given sepsis/hypovolemia - Pump: Restart Coreg 3.125 mg BID - Afterload: restart aldactone 25 mg tomorrow pending stability -- will consider SGLT2i upon discharge Chronic anxiety 05/02/2022 Assessment & Plan (05/27/2025 4:09 PM EDT): OARRS reviewed -- Lorazepam 0.5 mg (60 tablets) filled 01/18/25, though takes infrequently PRN. Acute met. Encephalopathy most likely hospital-acquired delirium iso acute illness. Given HD stability, adding delirium precautions. - Holding home ativan - Hydroxyzine 10 mg BID PRN for anxiety Gastroesophageal reflux disease without esophagi tis 05/02/2022 Assessment & Plan (05/27/2025 4:09 PM EDT): Protonix TI Mastocytosis 10/14/2017 Resolved Problems Problem Noted Date Diagnosed Date Resolved Date Acute kidney injury 05/27/2025 05/27/20 25 Acute non-ST segment elevati on myocardial infarction 02/26/2023 05/25/2025 Stress-induced cardiomyopathy 02/26/2023 05/25/2025 Encounters Date Type Department Care Team Description 05/25/2025 6:40 PM EDT - 05/28/2025 1:38 PM EDT Hospital Encounter [facility] [address] [place] [id number] Willem Shin DO Ahmad, Yousef, MD Mehta, Rahul Kaufman MD Mastocytosis (Primary Dx); Shock (CMS-HCC); Elevated LFTs Discharge Disposition: Home WITH Home Health Care Services 05/25/2025 Travel from Last 3 Months Immunizations Immunization Administration Dates Next Due tdap 01/24/2024 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 Tobacco Use Types Packs/Day Years Used Date Smoking Tobacco: Former Cigarettes Smokeless Tobacco: Never Tobacco Cessation:Counseling Given: Not Answered Comments:Former 2 PPD cigarette smoker, quit ~2004 Alcohol Use Standard Drinks/Week Comments No 0 (1 standard drink = 0.6 oz pur e alcohol) Utilities Answer Date Recorded In the past 12 months has [employer], gas, oil, or water [employer] threatened to shut off services in your [...] any time in the past 12 m [facility], were you homeless or living in a assisted (including now)? No 05/25/2025 Comments No Sex [...] Height 165.1 cm (5' 5 ) 05/25/2025 8:00 PM EDT Body Mass Index 44.98 05/25/2025 8:00 PM EDT Plan of Treatment Health Maintenance Due Date Last Done Comments Abnormal Colonoscopy Follow Up 1959 Diabetes Screening 1959 Pulmonary Function Testing 1959 Depression Screening 1977 Immunization: Pneumococcal (1 of 2 - PCV) 1978 Mammogram (MyChart) 1999 Cologuard (FIT-DNA) 2004 Colonoscopy 2004 Colorectal Cancer Screening (MyChart) 2004 Stool Testing (gFOBT) 2004 Immunization: Zoster (1 of 2) 2009 Lung Cancer Screening 2009 Osteoporosis Screening (DXA Scan) 2009 Immunization: RSV (Adult) (1 - Risk 60-74 years 1-dose series) 2019 Immunization: COVID-19 ( - season) 2024 Immunization: Influenza (MyChart) (#1) 2025 Immunization: DTaP/Tdap/Td (2 - Td or Tdap) 01/23/2034 01/24/2024 Hepatitis C Screening (MyChart) Completed Procedures Procedure Name Priority Date/Time Associated Diagnosis Comments EKG - SCAN 05/29/2025 8:22 PM EDT YAHAIRA RHYTHM STRIP - SCAN 05/28/2025 8:55 AM EDT HEPATIC FUNCTION PANEL Routine 4:27 AM EDT RENAL FUNCTION PANEL W/EGFR Routine 05/28/2025 4:27 AM EDT MAGNESIUM Routine 05/28/2025 4:27 AM EDT CBC Routine 05/28/2025 4:27 AM EDT POC GLU MONITORING DEVICE Routine 05/27/2025 11:34 PM EDT STREP PNEUMO-LEGIONELLA URINE ANTIGEN Routine 05/27/2025 2:11 PM EDT POC GLU MONITORING DEVICE Routine 05/27/2025 1:14 PM EDT VENOUS BLOOD GAS, LINE/SYRINGE STAT 05/27/2025 1:11 PM EDT YAHAIRA RHYTHM STRIP - SCAN 05/27/2025 8:44 AM EDT HEPATIC FUNCTION PANEL Routine 12:41 AM EDT MAGNESIUM Routine 05/27/2025 12:41 AM EDT RENAL FUNCTION PANEL W/EGFR Routine 05/27/2025 12:41 AM EDT CBC Routine 05/27/2025 12:41 AM EDT HEPATITIS B CORE IGM Routine 05/26/2025 9:04 PM EDT HEPATITIS B CORE ANTIBODY Routine 05/26/2025 9:04 PM EDT YAHAIRA RHYTHM STRIP - SCAN 05/26/2025 7:02 PM EDT YAHAIRA RHYTHM STRIP - SCAN 05/26/2025 6:52 PM EDT PROTIME-INR Routine 05/26/2025 3:02 PM EDT HEPATITIS B SURFACE ANTIBODY, QUANTITATIVE Routine 05/26/2025 3:02 PM EDT HEPATITIS B CORE ANTIBODY Routine 05/26/2025 3:02 PM EDT HEPATITIS A IGM Routine 05/26/2025 3:02 PM EDT HEPATITIS C ANTIBODY Routine 05/26/2025 3:02 PM EDT HEPATITIS B SURFACE ANTIGEN Routine 05/26/2025 3:02 PM EDT HEPATIC FUNCTION PANEL STAT 3:02 PM EDT RENAL FUNCTION PANEL W/EGFR STAT 05/26/2025 3:02 PM EDT VENOUS BLOOD GAS, LINE/SYRINGE STAT 05/26/2025 2:49 PM EDT POC GLU MONITORING DEVICE Routine 05/26/2025 12:25 PM EDT RENAL FUNCTION PANEL W/EGFR STAT 05/26/2025 10:08 AM EDT LACTIC ACID STAT 05/26/2025 10:08 AM EDT ECHO COMPLETE W/ CONTRAST SHYLA 05/26/2025 8:56 AM EDT POC GLU MONITORING DEVICE Routine 05/26/2025 8:47 AM EDT VENOUS BLOOD GAS, LINE/SYRINGE STAT 05/26/2025 8:42 AM EDT YAHAIRA RHYTHM STRIP - SCAN 05/26/2025 7:41 AM EDT IRON STUDIES Routine 05/26/2025 3:33 AM EDT VITAMIN B12 Routine 05/26/2025 3:33 AM EDT FOLATE Routine 05/26/2025 3:33 AM EDT FERRITIN Routine 05/26/2025 3:33 AM EDT HEPATIC FUNCTION PANEL Routine 3:33 AM EDT RENAL FUNCTION PANEL W/EGFR Routine 05/26/2025 3:33 AM EDT MAGNESIUM Routine 05/26/2025 3:33 AM EDT CBC Routine 05/26/2025 3:33 AM EDT MRSA/STAPH AUREUS DNA - DIAGNOSTIC TESTING FOR PNEUMONIA Routine 05/26/2025 3:33 AM EDT GAMMA GT Routine 05/26/2025 12:43 AM EDT NT-PROBNP/SACUBITRIL/V ALSARTAN Routine 05/26/2025 12:43 AM EDT HIGH SENSITIVITY TROPONIN STAT 05/26/2025 12:43 AM EDT URINALYSIS W/RFL TO MICROSCOPIC Routine 05/25/2025 10:32 PM EDT URINE CULTURE Routine 05/25/2025 10:32 PM EDT ECG 12-LEAD (MUSE) STAT 05/25/2025 9: 52 PM EDT YAHAIRA RHYTHM STRIP - SCAN 05/25/2025 8:30 PM EDT YAHAIRA RHYTHM STRIP - SCAN 05/25/2025 8:22 PM EDT HCG URINE, QUALITATIVE Routine 8:09 PM EDT ANTIBODY SCREEN Routine 05/25/2025 7:21 PM EDT ABO/RH Routine 05/25/2025 7:21 PM EDT B NATRIURETIC PEPTIDE Routine 05/25/2025 7:21 PM EDT HIGH SENSITIVITY TROPONIN STAT 05/25/2025 7:21 PM EDT AMYLASE STAT 05/25/2025 7:21 PM EDT BLOOD CULTURE-PERIPHERAL Routine 05/25/2025 7:21 PM EDT BLOOD CULTURE-PERIPHERAL Routine 05/25/2025 7:21 PM EDT LIPASE STAT 05/25/2025 7:20 PM EDT VENOUS BLOOD GAS, LINE/SYRINGE STAT 05/25/2025 7:20 PM EDT LACTIC ACID STAT 05/25/2025 7:20 PM EDT AMMONIA STAT 05/25/2025 7:20 PM EDT ACETAMINOPHEN LEVEL STAT 05/25/2025 7 :20 PM EDT PROTIME-INR STAT 05/25/2025 7:20 PM EDT HEPATIC FUNCTION PANEL STAT 7:20 PM EDT MAGNESIUM STAT 05/25/2025 7:20 PM EDT RENAL FUNCTION PANEL W/EGFR STAT 05/25/2025 7:20 PM EDT CBC STAT 05/25/2025 7:20 PM EDT XR PORTABLE CHEST STAT 05/25/2025 7:1 0 PM EDT POC SAMPLE TYPE Routine 05/25/2025 6:07 PM EDT POC ANION GAP Routine 05/25/2025 6:07 PM EDT POCT CREATININE Routine 05/25/2025 6:07 PM EDT POC CHLORIDE Routine 05/25/2025 6:07 PM EDT POCT HEMOGLOBIN Routine 05/25/2025 6:07 PM EDT POCT HEMATOCRIT Routine 05/25/2025 6:07 PM EDT POC LACTATE Routine 05/25/2025 6:07 PM EDT POCT GLUCOSE Routine 05/25/2025 6:07 PM EDT POCT CALCIUM, TOTAL Routine 05/25/2025 6 :07 PM EDT POC POTASSIUM Routine 05/25/2025 6:07 PM EDT POC SODIUM Routine 05/25/2025 6:07 PM EDT POC TCO2 Routine 05/25/2025 6:07 PM EDT POC O2 SAT Routine 05/25/2025 6:07 PM EDT POC BASE EXCESS Routine 05/25/2025 6:07 PM EDT POC HCO3 Routine 05/25/2025 6:07 PM EDT POC PO2 Routine 05/25/2025 6:07 PM EDT POC PCO2 Routine 05/25/2025 6:07 PM EDT POCT PH Routine 05/25/2025 6:07 PM EDT from Last 3 Months Results * EKG - scan (05/29/2025 8:22 PM EDT) us Scanning [facility] SCAN DOCS - NO RESULTS Final Res ult * YAHAIRA Rhythm Strip - Scan (05/28/2025 8:55 AM EDT) Only the most recent of7 resultswithin the time period is included. us Scanning [facility] SCAN DOCS - NO RESULTS Final Res ult * (ABNORMAL) Hepatic Function Panel, AM (05/28/2025 4:27 AM EDT) Only the most recent of5 resultswithin the time period is included. Total Bilirubin 0.7 0.0 - 1.5 mg/dL 05/28/2025 6:06 AM EDT [facility] Bilirubin, Direct 0.08 0.00 - 0.40 mg/dL 05/28/2025 6:06 AM EDT [facility] Comment:HEMOLYSIS EVIDENT. D IRECT BILIRUBIN CONCENTRATIONS MAY BE FALSELY DECREASED IN THE PRESENCE OF HEMOLYSIS. INTERPRET WITH CAUTION. AST 71(H) 13 - 39 U/L 05/28/2025 6:06 AM EDT [facility] ALT 137(H) 7 - 52 U/L 05/28/2025 6:06 AM EDT [facility] Alkaline Phosphatase 231(H) 36 - 125 U/L 05/28/2025 6:06 AM EDT [facility] Total Protein 6.3(L) 6.4 - 8.9 g/dL 05/28/2025 6:06 AM EDT [facility] Albumin 3.2(L) 3.5 - 5.7 g/dL 05/28/2025 6:06 AM EDT [facility] Bilirubin, Indirect 0.62 0.00 - 1.10 mg/dL 05/28/2025 6:06 AM EDT [facility] Plasma 05/28/2025 4:27 AM EDT 05/28/2025 5:27 AM EDT us Pritesh Mosquera DO LAB BLOOD ORDERABLES Final Resu lt [facility] [address] [place] [address], [facility] * (ABNORMAL) Renal Function Panel w/EGFR (05/28/2025 4:27 AM EDT) Only the most recent of6 resultswithin the time period is included. Sodium 139 133 - 146 mmol/L 05/28/2025 6:06 AM EDT [facility] Potassium 4.3 3.5 - 5.3 mmol/L 05/28/2025 6:06 AM EDT [facility] Comment:Hemolysis Present: R esults may be influenced artificially. Recommend recollection as clinically indicated. Chloride 108 98 - 110 mmol/L 05/28/2025 6:06 AM EDT [facility] CO2 22 21 - 33 mmol/L 05/28/2025 6:06 AM EDT [facility] Anion Gap 9 3 - 16 mmol/L 05/28/2025 6:06 AM EDT [facility] BUN 12 7 - 25 mg/dL 05/28/2025 6:06 AM EDT [facility] Creatinine 0.71 0.60 - 1.30 mg/dL 05/28/2025 6:06 AM EDT [facility] Glucose 81 70 - 100 mg/dL 05/28/2025 6:06 AM EDT [facility] Calcium 8.3(L) 8.6 - 10.3 mg/dL 05/28/2025 6:06 AM EDT [facility] Phosphorus 2.7 2.1 - 4.5 mg/dL 05/28/2025 6:06 AM EDT [facility] Comment:HEMOLYSIS EVIDENT. R ESULTS MAY BE INFLUENCED. Albumin 3.2(L) 3.5 - 5.7 g/dL 05/28/2025 6:06 AM EDT [facility] Osmolality, Calculated 287 278 - 305 mOsm/kg 05/28/2025 6:06 AM EDT [facility] EGFR >90 05/28/2025 6:06 AM EDT [facility] Comment: As of 2022, the estimated [...] AM EDT 05/28/2025 5:27 AM EDT us Pritesh Demetri LUNDBERG LAB BLOOD ORDERABLES Final Resu lt [facility] [address] * (ABNORMAL) CBC (05/28/2025 4:27 AM EDT) Only the most recent of4 resultswithin the time period is included. WBC 9.0 3.8 - 10.8 10E3/uL 05/28/2025 5:38 AM EDT [facility] RBC 3.02(L) 3.80 - 5.10 10E6/uL 05/28/2025 5:38 AM EDT [facility] Hemoglobin 9.2(L) 11.7 - 15.5 g/dL 05/28/2025 5:38 AM EDT [facility] Hematocrit 27.9(L) 35.0 - 45.0 % 05/28/2025 5:38 AM EDT [facility] MCV 92.6 80.0 - 100.0 fL 05/28/2025 5:38 AM EDT [facility] MCH 30.6 27.0 - 33.0 pg 05/28/2025 5:38 AM EDT [facility] MCHC 33.1 32.0 - 36.0 g/dL 05/28/2025 5:38 AM EDT [facility] RDW 18.2(H) 11.0 - 15.0 % 05/28/2025 5:38 AM EDT [facility] Platelets 235 140 - 400 10E3/uL 05/28/2025 5:38 AM EDT [facility] MPV 8.7 7.5 - 11.5 fL 05/28/2025 5:38 AM EDT [facility] Whole Blood 05/28/2025 4:27 AM EDT 05/28/2025 5:27 AM EDT Pritesh Still DO LAB BLOOD ORDERABLES Final Resu lt Performing Organization Address City/[facility]/ZIP Co de Phone Number [facility] [address] [facility] * Magnesium (05/28/2025 4:27 AM EDT) Only the most recent of4 resultswithin the time period is included. Magnesium 2.0 1.5 - 2.5 mg/dL 05/28/2025 6:06 AM EDT [facility] Comment:HEMOLYSIS EVIDENT. R ESULTS MAY BE INFLUENCED. Plasma 05/28/2025 4:27 AM EDT 05/28/2025 5:27 AM EDT Pritesh Still DO LAB BLOOD ORDERABLES Final Resu lt Performing Organization Address City/[facility]/ZIP Co de Phone Number [facility] [address] [facility] * (ABNORMAL) POC Glucose Monitoring Device (05/27/2025 11:34 PM EDT) Only the most recent of4 resultswithin the time period is included. [facility] POC Glucose Monitoring Device 150(H) 70 - 100 mg/dL 05/27/2025 11:34 PM EDT [facility] Blood 05/27/2025 11:3 4 PM EDT 05/27/2025 11:34 PM EDT Willem Shin DO POINT OF CARE TEST ORDERABLE S Final Result Performing Organization Address [facility] Co de Phone Number [facility] [address] [facility] * Strep Pneumo-Legionella Urine Antigen (05/27/2025 2:11 PM EDT) [facility] Strept Pneumo Ag Negative Negative 05/28/2025 3:11 AM EDT [facility] Legionella Antigen Negative Negative 05/28/2025 3:11 AM EDT [facility] Urine 05/27/2025 2:11 PM EDT 05/28/2025 2:05 AM EDT Narrative [facility] - 05/28/2025 3:11 AM EDT Positive indicates detection of either Streptococcus pneumoniae antigen or Legionella pneumophila serogroup 1 antigen. Negative results do not rule out pneumococcal infection or infection with L. pneumophila serogroup 1, other serogroups of L. pneumophila, or other Legionella species. Audi Yates MD URINE ORDERABLES Final Result Performing Organization Address City/[facility] Co de Phone Number [facility] [address] [facility] * (ABNORMAL) Venous Blood Gas, Line/Syringe, STAT (05/27/2025 1:11 PM EDT) Only the most recent of4 resultswithin the time period is included. [facility] PH-Line Draw 7.27(L) 7.32 - 7.42 05/27/2025 1:21 PM EDT [facility] PCO2-Line Draw 50 41 - 51 mm Hg 05/27/2025 1:21 PM EDT [facility] PO2-Line Draw 44(H) 25 - 40 mm Hg 05/27/2025 1:21 PM EDT [facility] HCO3-Line Draw 21(L) 24 - 28 mmol/L 05/27/2025 1:21 PM EDT [facility] CO2 Content-Line Draw 25 25 - 29 mmol/L 05/27/2025 1:21 PM EDT [facility] Base Excess-Line Draw -4.0(L) -2.0 - 3.0 mmol/L 05/27/2025 1:21 PM EDT [facility] %HBO2-Line Draw 69.1 40.0 - 70.0 % 05/27/2025 1:21 PM EDT [facility] Carboxyhgb-Joi e Draw 1.1 % 05/27/2025 1:21 PM EDT [facility] Comment: CARBOXYHEMOGLOBIN (CO) REFERENCE RANGES: Non-Smokers: <2 % Smokers: <8 % TOXIC: >20 % Methemoglobin- Line Draw 0.0 0.0 - 1.5 % 05/27/2025 1:21 PM EDT [facility] Reduced Hemoglobin-Joi e Draw 29.8(H) 0.0 - 5.0 % 05/27/2025 1:21 PM EDT [facility] Venous, Line Draw 05/27/2025 1:11 PM EDT 05/27/2025 1:18 PM EDT us Pritesh Mosquera DO LAB BLOOD ORDERABLES Final Resu lt Performing Organization Address City/State/[facility] Co de Phone Number [facility] [address] [place] [address], [facility] * Hepatitis B Core IgM (05/26/2025 9:04 PM EDT) Hep B Core IgM Nonreactive Nonreactive 05/26/2025 10:32 PM EDT [facility] Serum 05/26/2025 9:04 PM EDT 05/26/2025 9:07 PM EDT Narrative [facility] - 05/26/2025 10:32 PM EDT IgM anti-HBc not detected. Does not exclude the possibility of exposure to or infection with HBV. Cookie Abdul MD LAB BLOOD ORDERABLES Final Resu lt [facility] [address] * (ABNORMAL) Hepatitis B Core Antibody (05/26/2025 9:04 PM EDT) Only the most recent of2 resultswithin the time period is included. Hep B Core Total Ab Reactive( A) Nonreactive 05/27/2025 12:02 AM EDT [facility] Comment: Health Department notified in accordance with reportable infectious disease guidelines. Health Department notified in accordance with reportable infectious disease guidelines. Serum 05/26/2025 9:04 PM EDT 05/26/2025 9:07 PM EDT Narrative [facility] - 05/27/2025 12:02 AM EDT A reactive final interpretation indicates presumptive evidence of HBV; anti-HBc antibodies were detected in the sample which suggests either on-going or previous HBV infection. Cookie Abdul MD LAB BLOOD ORDERABLES Final Resu lt Performing Organization Address City/[facility]/ZIP Co de Phone Number [facility] [address] [place] [facility]. [address] * Hepatitis A IgM (05/26/2025 3:02 PM EDT) Hep A IgM Nonreactive Nonreactive 05/26/2025 7:36 PM EDT [facility] Serum 05/26/2025 3:02 PM EDT 05/26/2025 3:06 PM EDT Narrative [facility]ALTH [facility] - 05/26/2025 7:36 PM EDT IgM anti-HAV not detected. Does not exclude the possibility of exposure to or infection with HAV. Levels of IgM anti-HAV may be below the cut-off in early infection. Lewis Connelly MD LAB BLOOD ORDERABLES Final Resul t [facility] [address] * Hepatitis C Antibody (05/26/2025 3:02 PM EDT) HCV Ab Nonreactive Nonreactive 05/26/2025 7:36 PM EDT [facility] Comment:Health Department no tified in accordance with reportable infectious disease guidelines. Serum 05/26/2025 3:02 PM EDT 05/26/2025 3:06 PM EDT [facility] - 05/26/2025 7:36 PM EDT Antibodies to HCV not detected; does not exclude the possibility of exposure to HCV. us Lewis Connelly MD LAB BLOOD ORDERABLES Final Resul t [facility] [address] [facility]. [address] * (ABNORMAL) Hepatitis B Surface Antibody, Quantitative (05/26/2025 3:02 PM EDT) Hep B S Ab Reactive( A) Nonreactive 05/26/2025 7:37 PM EDT [facility] HBSAB NUMBER >500.00(H ) 0.00 - 7.99 mIU/mL 05/26/2025 7:37 PM EDT [facility] Serum 05/26/2025 3:02 PM EDT 05/26/2025 3:06 PM EDT [facility] - 05/26/2025 7:37 PM EDT Individual is considered immune to HBV infection. us Lewis Connelly MD LAB BLOOD ORDERABLES Final Resul t [facility] [address] [place] [facility]. [address] * Hepatitis B Surface Antigen (05/26/2025 3:02 PM EDT) Hep B Surface Ag Nonreactive Nonreactive 05/26/2025 7:36 PM EDT [facility] Comment:Health Department no tified in accordance with reportable infectious disease guidelines. Serum 05/26/2025 3:02 PM EDT 05/26/2025 3:06 PM EDT Narrative [facility] - 05/26/2025 7:36 PM EDT Specimen is considered negative for HBsAg. Lewis Connelly MD LAB BLOOD ORDERABLES Final Resul t Performing Organization Address City/[facility]/ZIP Co de Phone Number [facility] [address] [place] [address]. [address] * Protime-INR (05/26/2025 3:02 PM EDT) Only the most recent of2 resultswithin the time period is included. Protime 14.6 12.1 - 15.1 seconds 05/26/2025 4:00 PM EDT [facility] INR 1.1 0.9 - 1.1 05/26/2025 4:00 PM EDT [facility] Comment: RECOMMENDED THERAPEUTIC RANGES USING INR : Stable oral anticoagulant therapy: 2.0 - 3.0 Mechanical prosthetic heart valve: 2.5 - 3.5 Recurrent acute myocardial infarction: 2.5 - 3.5 Plasma 05/26/2025 3:02 PM EDT 05/26/2025 3:06 PM EDT us Pritesh Mosquera DO LAB BLOOD ORDERABLES Final Resu lt Performing Organization Address [facility] Co de Phone Number [facility] [address] [facility]. [address] * Lactic Acid (05/26/2025 10:08 AM EDT) Only the most recent of2 resultswithin the time period is included. Lactate 0.8 0.5 - 2.2 mmol/L 05/26/2025 10:40 AM EDT [facility] Plasma 05/26/2025 10:0 8 AM EDT 05/26/2025 10:17 AM EDT Pritesh Mosquera DO LAB BLOOD ORDERABLES Final Resu lt [facility] [address] [place] [address], [facility] * ECHO COMPLETE W/ CONTRAST (05/26/2025 8:56 AM EDT) Anatomical Region Laterality Modality Chest Ultrasound 05/26/2025 8:13 AM EDT Narrative 05/26/2025 9:39 AM EDT * [facility]* [address] [place] [address] Transthoracic Echocardiogram Patient: Laura Mallory Room: [facility] Height: 65in MR Number: [id number] : 1960 Weight: 271lb Account: [id number] Gender: F BP: 91 / 59 Study Date: 05/26/2025 Age: 64 BSA: 2.25m^2 Referring physician: Cookie Abdul Interpreting physician: Eliu Burns MD PERFORMING Eliu Burns MD RN PSYCH Marion Adam ORDERING Cookie Abdul REFERRING Cookie Abdul ATTENDING Eliud Lopez Evan Lynn Procedure:TRANSTHORACIC ECHO (TTE) Order: Accession COMPLETE Number:[id number] Indications: Heart Failure unspecified (I50.9). PMH: Coronary [...] Reviewed and confirmed by Eliu Burns MD [id number] Procedure Note Eliu Burns MD - 05/26/2025 * [facility]* [address] [place] [id number] Transthoracic Echocardiogram Patient: Laura Mallory Room: [facility] Height: 65in MR Number: [id number] : 1960 Weight: 271lb Account: [id number] Gender: F BP: 91 / 59 Study Date: 05/26/2025 Age: 64 BSA: 2.25m^2 Referring physician: Cookie Abdul Interpreting physician: Eliu Burns MD PERFORMING Eliu Burns MD RN PSYCH Marion Adam ORDERING Cookie Abdul REFERRING Chantell, Cookie ATTENDING Eliud Lopez Evan Lynn Procedure:TRANSTHORACIC ECHO (TTE) Order: Accession COMPLETE Number:[id number] Indications: Heart Failure unspecified (I50.9). PMH: Coronary [...] Reviewed and confirmed by Eliu Burns MD [id number] Cookie Abdul MD CV ECHO ORDERABLES Final Result * (ABNORMAL) MRSA/Staph aureus DNA ??? Diagnostic testing for pneumonia (05/26/2025 3:33 AM EDT) MRSA, PCR Negative Negative 05/26/2025 7:00 AM EDT [facility] Staph Aureus, PCR Positive(A) Negative 05/26/2025 7:00 AM EDT [facility] Comment:Test method is a FDA approved amplified DNA assay. Nares Swab BOTH ANTERIOR NARES / Unknown 05/26/2025 3:33 AM EDT 05/26/2025 5:14 AM EDT Narrative [facility] - 05/26/2025 7:00 AM EDT Diagnosis of MRSA Pneumonia->Yes - Place [id number] (this order) us Cookie Abdul MD MICROBIOLOGY - GENERAL ORDERABL ES Final Result Performing Organization Address City/[facility]/ZIP Co de Phone Number [facility] [address] [facility] * (ABNORMAL) Iron Studies (Iron + TIBC) (05/26/2025 3:33 AM EDT) Iron 38(L) 50 - 212 ug/dL 05/26/2025 6:07 AM EDT [facility] % Iron Saturation 12.2(L) 15.0 - 55.0 % 05/26/2025 6:07 AM EDT [facility] TIBC 311 265 - 497 ug/dL 05/26/2025 6:07 AM EDT [facility] Serum 05/26/2025 3:33 AM EDT 05/26/2025 3:40 AM EDT us Cookie Abdul MD LAB BLOOD ORDERABLES Final Resu lt [facility] [address] [facility]. [address] * Folate (Folic Acid) (05/26/2025 3:33 AM EDT) Folic Acid 8.60 5.90 - 24.80 ng/mL 05/26/2025 4:41 AM EDT [facility] Serum 05/26/2025 3:33 AM EDT 05/26/2025 3:38 AM EDT us Cookie Abdul MD LAB BLOOD ORDERABLES Final Resu lt Performing Organization Address City/[facility]/ZIP Co de Phone Number [facility] [address] [facility]. [address] * Ferritin (05/26/2025 3:33 AM EDT) Ferritin 250.6 11.0 - 306.8 ng/mL 05/26/2025 4:38 AM EDT [facility] Serum 05/26/2025 3:33 AM EDT 05/26/2025 3:38 AM EDT us Cookie Abdul MD LAB BLOOD ORDERABLES Final Resu lt Performing Organization Address [facility]/ZIP Co de Phone Number [facility] [address] [facility]. [address] * Vitamin B12 (05/26/2025 3:33 AM EDT) Vitamin B-12 730 180 - 914 pg/mL 05/26/2025 4:42 AM EDT [facility] Serum 05/26/2025 3:33 AM EDT 05/26/2025 3:38 AM EDT us Cookie Abdul MD LAB BLOOD ORDERABLES Final Resu lt Performing Organization Address City/[facility]/ZIP Co de Phone Number [facility] [address] [place] [address]. [address] * (ABNORMAL) High Sensitivity Troponin (05/26/2025 12:43 AM EDT) Only the most recent of2 resultswithin the time period is included. High Sensitivity Troponin 17(H) 0 - 14 ng/L 05/26/2025 1:28 AM EDT [facility] Serum 05/26/2025 12:4 3 AM EDT 05/26/2025 12:56 AM EDT Cookie Abdul MD LAB BLOOD ORDERABLES Final Resu lt Performing Organization Address [facility] Co de Phone Number [facility] [address] * (ABNORMAL) NT-proBNP/Sacubitril/Valsartan (05/26/2025 12:43 AM EDT) NT Pro BNP 1142(H) 0 - 301 pg/mL 05/27/2025 7:40 AM EDT [facility] Comment: The following cut-points have been [...] AM EDT 05/27/2025 8:07 AM EDT Narrative [facility] - 05/27/2025 8:07 AM EDT PERFORMED AT: [facility] [id number] [employer]OW DOG TRAINER: Dave Escudero, PhD PHONE: [phone] Cookie Abdul MD LAB BLOOD ORDERABLES Final Resu lt Performing Organization Address City/[facility]/ZIP Co de Phone Number [facility] [address] * (ABNORMAL) Gamma GT (05/26/2025 12:43 AM EDT) GGT 307(H) 9 - 64 U/L 05/26/2025 1:37 AM EDT [facility] Serum 05/26/2025 12:4 3 AM EDT 05/26/2025 12:52 AM EDT us Cookie Abdul MD LAB BLOOD ORDERABLES Final Resu lt [facility] [address] [place] [address], [facility] * (ABNORMAL) Urinalysis w/Rfl to Microscopic (05/25/2025 10:32 PM EDT) Color, UA Yellow Yellow,Straw 05/25/2025 10:55 PM EDT [facility] Clarity, UA Cloudy(A) Clear 05/25/2025 10:55 PM EDT [facility] Specific [place], UA >1.035(H) 1.005 - 1.035 05/25/2025 10:55 PM EDT [facility] pH, UA 6.0 5.0 - 8.0 05/25/2025 10:55 PM EDT [facility] Protein, UA 30(A) Negative mg/dL 05/25/2025 10:55 PM EDT [facility] Glucose, UA Negative Negative mg/dL 05/25/2025 10:55 PM EDT [facility] Ketones, UA Negative Negative mg/dL 05/25/2025 10:55 PM EDT [facility] Bilirubin, UA Negative Negative 05/25/2025 10:55 PM EDT [facility] Blood, UA Moderate(A) Negative 05/25/2025 10:55 PM EDT [facility] Nitrite, UA Negative Negative 05/25/2025 10:55 PM EDT [facility] Urobilinogen, UA 3.0(H) 0.2 - 1.9 mg/dL 05/25/2025 10:55 PM EDT [facility] Leukocyte Esterase, UA Negative Negative 05/25/2025 10:55 PM EDT [facility] RBC, UA 41(H) 0 - 3 /HPF 05/25/2025 10:55 PM EDT [facility] WBC, UA 1 0 - 5 /HPF 05/25/2025 10:55 PM EDT [facility] Squam Epithel, UA 1 0 - 5 /HPF 05/25/2025 10:55 PM EDT [facility] Bacteria, UA Rare(A) None Seen /HPF 05/25/2025 10:55 PM EDT [facility] Urine 05/25/2025 10:3 2 PM EDT 05/25/2025 10:43 PM EDT Cookie Abdul MD URINE ORDERABLES Final Result Performing Organization Address [facility] Co de Phone Number [facility] [address] * Urine culture (05/25/2025 10:32 PM EDT) Culture Result No Growth After 2 Days [facility] Newly Placed Ni Urine URINE SPECIMEN / Unknown 05/25/2025 10:32 PM EDT 05/25/2025 11:33 PM EDT Cookie Abdul MD MICROBIOLOGY - GENERAL ORDERABL ES Final Result Performing Organization Address [facility] Co de Phone Number [facility] [address] [facility] * ECG 12 lead (MUSE) (05/25/2025 9:52 PM EDT) 05/25/2025 9:52 PM EDT Narrative MUSE - 05/26/2025 10:45 AM EDT Ventricular Rate: 68 BPM Atrial Rate: 68 BPM P-R Interval: 198 ms QRS Duration: 80 ms QT: 446 ms QTc: 474 ms P [place]: 58 degrees R [place]: -28 degrees T [place]: 6 degrees Diagnosis Line: NORMAL SINUS RHYTHM ^ LOW VOLTAGE QRS COMPLEXES ^ BORDERLINE ECG ^ No previous ECGs available ^ Confirmed by Conner DONATO MD ([id number]) on 05/26/2025 10:45:34 AM Denisse Albert DO ECG ORDERABLES Final Result Performing Organization Address City/[facility] Co de Phone Number MUSE * HCG Urine, Qualitative (05/25/2025 8:09 PM EDT) hCG Qualitative -Clinitek Negative Negative 05/25/2025 8:30 PM EDT [facility] Urine 05/25/2025 8:09 PM EDT 05/25/2025 8:14 PM EDT Denisse Roosevelt LUNDBERG URINE ORDERABLES Final Result [facility] [address] [place] [address]. [address] * ABO/Rh (05/25/2025 7:21 PM EDT) ABO Grouping O 05/25/2025 8:07 PM EDT [facility] Rh Type Negative 05/25/2025 8:07 PM EDT [facility] Blood 05/25/2025 7:21 PM EDT 05/25/2025 7:45 PM EDT Denisse Albert DO BLOOD BANK TEST ORDERABLES Final Result Performing Organization Address City/[facility]/ZIP Co de Phone Number [facility] [address] [place] [address]. [address] * #2 Blood culture-Peripheral site 2 (05/25/2025 7:21 PM EDT) Only the most recent of2 resultswithin the time period is included. Culture Result No Growth After 5 Days [facility] Blood BLOOD SPECIMEN / Unknown 05/25/2025 7:21 PM EDT 05/25/2025 8:07 PM EDT Denissetorsten Albert DO MICROBIOLOGY - GENERAL ORDERABLE S Final Result [facility] [address] [place] [address]. [address] * Antibody Screen (05/25/2025 7:21 PM EDT) Antibody Screen Negative 05/25/2025 8:23 PM EDT [facility] Blood 05/25/2025 7:21 PM EDT 05/25/2025 7:45 PM EDT Narrative [facility] - 05/25/2025 8:28 PM EDT Testing performed by [facility]fusion [facility] Denisse Albert BLOOD BANK TEST ORDERABLES Final Result Performing Organization Address City/[facility]/ZIP Co de Phone Number [facility] [address] * (ABNORMAL) B Natriuretic Peptide (05/25/2025 7:21 PM EDT) BNP 162(H) 0 - 100 pg/mL 05/25/2025 8:31 PM EDT [facility] Comment: BNP may be increased in the presence of sacubitril/valsartan (Entresto). Please interpret accordingly. Plasma 05/25/2025 7:21 PM EDT 05/25/2025 7:44 PM EDT Narrative [facility] - 05/25/2025 8:31 PM EDT The presence of high concentrations of biotin may cause falsely lowered BNP results. Biotin interference may be seen if an individual is taking >5 mg biotin per day. Interpret BNP results in the context of the patient's clinical presentation. [facility] LAB BLOOD ORDERABLES Final Resul t Performing Organization Address [facility]/ZIP Co de Phone Number [facility] [address] * Amylase (05/25/2025 7:21 PM EDT) Amylase 22 16 - 117 U/L 05/25/2025 8:23 PM EDT [facility] Serum 05/25/2025 7:21 PM EDT 05/25/2025 7:56 PM EDT Denisse Albert [facility] LAB BLOOD ORDERABLES Final Resul t Performing Organization Address City/[facility]/ZIP Co de Phone Number [facility] [address] * Lipase (05/25/2025 7:20 PM EDT) Lipase 6 4 - 82 U/L 05/25/2025 8:2 3 PM EDT [facility] Plasma 05/25/2025 7:20 PM EDT 05/25/2025 7:56 PM EDT Denisse Albert [facility] BLOOD ORDERABLES Final Resul t Performing Organization Address City/[facility]/ZIP Co de Phone Number [facility] [address] [facility] * Ammonia (NH3), STAT (05/25/2025 7:20 PM EDT) Ammonia 71 27 - 90 ug/dL 05/25/2025 8:04 PM EDT [facility] Plasma 05/25/2025 7:20 PM EDT 05/25/2025 7:44 PM EDT Denisse Albert [facility] BLOOD ORDERABLES Final Resul t Performing Organization Address [facility] Co de Phone Number [facility] [address] [place] [address]. [address] * (ABNORMAL) Acetaminophen Level (Tylenol), STAT (05/25/2025 7:20 PM EDT) Acetaminophen Level <10(L) 10 - 30 ug/mL 05/25/2025 8:04 PM EDT [facility] Serum 05/25/2025 7:20 PM EDT 05/25/2025 7:44 PM EDT Denisse Albert [facility] BLOOD ORDERABLES Final Resul t Performing Organization Address [facility] Co de Phone Number [facility] [address] [place] [address]. [address] * X-ray Portable Chest (05/25/2025 7:10 [...] IMAGING ORDERABLE S Final Result * POC Lactate (05/25/2025 6:07 PM EDT) POC Lactate 0.92 0.50 - 2.20 mmol/L 05/26/2025 5:58 AM EDT [facility] Blood, Venous 05/25/2025 6:0 7 PM EDT 05/26/2025 5:58 AM EDT Willem Shin DO POINT OF CARE TEST ORDERABLE S Final Result [facility] [address] * (ABNORMAL) POC TCO2 (05/25/2025 6:07 PM EDT) POC TCO2, Venous 19(L) 25 - 29 mmol/L 05/26/2025 5:58 AM EDT [facility] Blood, Venous 05/25/2025 6:0 7 PM EDT 05/26/2025 5:58 AM EDT us Willem Shin DO POINT OF CARE TEST ORDERABLE S Final Result Performing Organization Address City/[facility] Co de Phone Number [facility] [address] * POC Sodium (05/25/2025 6:07 PM EDT) POC Sodium 140 136 - 146 mmol/L 05/26/2025 5:58 AM EDT [facility] Blood, Venous 05/25/2025 6:0 7 PM EDT 05/26/2025 5:58 AM EDT us Willem Shin DO POINT OF CARE TEST ORDERABLE S Final Result Performing Organization Address City/[facility] Co de Phone Number [facility] [address] [facility] * POC Potassium (05/25/2025 6:07 PM EDT) POC Potassium 4.0 3.5 - 5.3 mmol/L 05/26/2025 5:58 AM EDT [facility] Blood, Venous 05/25/2025 6:0 7 PM EDT 05/26/2025 5:58 AM EDT Willem Shin DO POINT OF CARE TEST ORDERABLE S Final Result [facility] [address] * (ABNORMAL) POC PO2 (05/25/2025 6:07 PM EDT) POC pO2, Venous 45(H) 25 - 40 mm Hg 05/26/2025 5:58 AM EDT [facility] Blood, Venous 05/25/2025 6:0 7 PM EDT 05/26/2025 5:58 AM EDT us Willem Shin DO POINT OF CARE TEST ORDERABLE S Final Result Performing Organization Address [facility] Co de Phone Number [facility] [address] * (ABNORMAL) POC PCO2 (05/25/2025 6:07 PM EDT) POC pCO2, Venous 36(L) 41 - 51 mm Hg 05/26/2025 5:58 AM EDT [facility] Blood, Venous 05/25/2025 6:0 7 PM EDT 05/26/2025 5:58 AM EDT us Willem Shin DO POINT OF CARE TEST ORDERABLE S Final Result Performing Organization Address [facility] Co de Phone Number [facility] [address] * (ABNORMAL) POC O2 SAT (05/25/2025 6:07 PM EDT) POC O2 Saturation, Venous 77(L) 95 - 98 % 05/26/2025 5:58 AM EDT [facility] Blood, Venous 05/25/2025 6:0 7 PM EDT 05/26/2025 5:58 AM EDT Willem Shin DO POINT OF CARE TEST ORDERABLE S Final Result [facility] [address] * (ABNORMAL) POC HCO3 (05/25/2025 6:07 PM EDT) POC HCO3, Venous 18(L) 24 - 28 mmol/L 05/26/2025 5:58 AM EDT [facility] Blood, Venous 05/25/2025 6:0 7 PM EDT 05/26/2025 5:58 AM EDT us Willem Shin DO POINT OF CARE TEST ORDERABLE S Final Result [facility] [address] * POC Chloride (05/25/2025 6:07 PM EDT) POC Chloride 107 98 - 110 mmol/L 05/26/2025 5:58 AM EDT [facility] Blood, Venous 05/25/2025 6:0 7 PM EDT 05/26/2025 5:58 AM EDT us Willem Shin DO POINT OF CARE TEST ORDERABLE S Final Result [facility] [address] * (ABNORMAL) POC Base Excess (05/25/2025 6:07 PM EDT) POC Base Excess, Venous -8(L) -2 - 3 mmol/L 05/26/2025 5:58 AM EDT [facility] Blood, Venous 05/25/2025 6:0 7 PM EDT 05/26/2025 5:58 AM EDT us Willem Shin DO POINT OF CARE TEST ORDERABLE S Final Result [facility] [address] * POC Anion Gap (05/25/2025 6:07 PM EDT) POC Anion Gap, Venous 15 3 - 16 mmol/L 05/26/2025 5:58 AM EDT [facility] Blood, Venous 05/25/2025 6:0 7 PM EDT 05/26/2025 5:58 AM EDT us Willem Shin DO POINT OF CARE TEST ORDERABLE S Final Result [facility] [address] * POC Sample Type (05/25/2025 6:07 PM EDT) POC Sample Type Venous 05/26/2025 5:58 AM EDT [facility] Blood, Venous 05/25/2025 6:0 7 PM EDT 05/26/2025 5:58 AM EDT us Willem Shin DO POINT OF CARE TEST ORDERABLE S Final Result [facility] [address] * (ABNORMAL) POC pH (05/25/2025 6:07 PM EDT) POC pH, Venous 7.30(L) 7.32 - 7.42 05/26/2025 5:58 AM EDT [facility] Blood, Venous 05/25/2025 6:0 7 PM EDT 05/26/2025 5:58 AM EDT Willem Shin DO POINT OF CARE TEST ORDERABLE S Final Result [facility] [address] * (ABNORMAL) POC hematocrit (05/25/2025 6:07 PM EDT) POC Hematocrit 34.0(L) 35 - 45 % 05/26/2025 5:58 AM EDT [facility] Blood, Venous 05/25/2025 6:0 7 PM EDT 05/26/2025 5:58 AM EDT Willem Shin DO POINT OF CARE TEST ORDERABLE S Final Result [facility] [address] [facility] * POC creatinine (05/25/2025 6:07 PM EDT) Pathologist [facility] POC Creatinine 1.27 0.60 - 1.30 mg/dL 05/26/2025 5:58 AM EDT [facility] Blood, Venous 05/25/2025 6:0 7 PM EDT 05/26/2025 5:58 AM EDT Willem Shin DO POINT OF CARE TEST ORDERABLE S Final Result Performing Organization Address City/[facility] Co de Phone Number [facility] [address] [facility] * POC Ionized Calcium (05/25/2025 6:07 PM EDT) Pathologist [facility] POC Ionized Calcium 4.50 4.50 - 5.30 mg/dL 05/26/2025 5:58 AM EDT [facility] Blood, Venous 05/25/2025 6:0 7 PM EDT 05/26/2025 5:58 AM EDT Willem Shin DO POINT OF CARE TEST ORDERABLE S Final Result [facility] [address] [facility] * (ABNORMAL) POC Glucose (05/25/2025 6:07 PM EDT) POC Glucose, Venous 246(H) 70 - 100 mg/dL 05/26/2025 5:58 AM EDT [facility] Blood, Venous 05/25/2025 6:0 7 PM EDT 05/26/2025 5:58 AM EDT Willem Marquezn Aleida DO POINT OF CARE TEST ORDERABLE S Final Result [facility] [address] [facility] * (ABNORMAL) POC Hemoglobin (05/25/2025 6:07 PM EDT) POC Hemoglobin 11.6(L) 12.0 - 16.0 g/dL 05/26/2025 5:58 AM EDT [facility] Blood, Venous 05/25/2025 6:0 7 PM EDT 05/26/2025 5:58 AM EDT Willem Marquezn Aleida DO POINT OF CARE TEST ORDERABLE S Final Result Performing Organization Address City/[facility] Co de Phone Number [facility] [address] [facility] from Last 3 Months [facility] A AND B Advance Directives For more information, please contact: [phone] * Full Code (Latest Code Status on File) Date Activated Date Inactivated Comments 05/25/2025 6:55 PM 05/28/2025 5:44 PM Care Teams Marketing Senior Recruiter Relationship Specialty Start Date End Date Manas Jenkins MD [address] [place] [address] PCP - General Family Medicine 10/14/17
--- OUTSIDE RECORDS SUMMARY | 2025-06-17 21:30 | XMS_ITS | Encounter Summary ---
[facility] Address [address] [place] [address] Care Team Providers Care Edgerman Name Role Phone Manas Blancas MD Primary Care Provider + Reason for Visit * Reason Onset Date Comments Med Refill 09/17/2022 Encounter Details Date Type Department Care Team (Late st Contact Info) Description 09/17/2022 Refill [facility] [address] [place] [address] Manas Blancas MD [address] [place] [address] Lumbar degenerative disc disease 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 Tobacco Use Types Packs/Day Years Used Date Smoking Tobacco: Former Cigarettes Q uit: 2005 Smokeless Tobacco: Never Alcohol Use Standard Drinks/Week Comments Not Currently 0 (1 standard drink = 0.6 oz pur e alcohol) PHQ-2 Answer Date Recorded Retired PHQ-9: Brief Depression Severity Measure Score 24 05/02/2022 Comments Unknown Sex and Gender Information Value Date Recorded Sex Assigned at Not on file Legal Sex Female 11:44 AM EDT Gender Identity Not on file Sexual Orientation Not on file documented as of this encounter Miscellaneous Notes * Telephone Encounter - Cristine Millan RegSched Rep - 09/17/2022 9:47 AM EDT Caller: Laura Mallory Relationship: Self Best call back number: [phone] Requested Prescriptions: Requested Prescriptions Pending Prescriptions Disp Refills ??? oxyCODONE-acetaminophen (PERCOCET) 10-325 MG per tablet 90 tablet 0 Sig: Take 1 tablet by mouth Every 8 (Eight) Hours As Needed for Severe Pain. ??? potassium chloride (K-DUR,KLOR-CON) 20 MEQ CR tablet 90 tablet 2 Sig: Take 1 tablet by mouth 3 (Three) Times a Day. Pharmacy where request should be sent: [facility] - [address] [phone] [facility] [phone] FX Additional details provided by patient: PATIENT STATED SHE HAS AT LEAST A (3) DAY SUPPLY OF MEDICATIONS Does the patient have less than a 3 day supply: [] Yes [x] No Raymond Angel Rep 09/17/22 09:[address] BLANCAS documented in this encounter Plan of Treatment Upcoming Encounters Date Type Department Care Team (Late st Contact Info) Description 09/23/2025 3:45 PM EDT Office Visit [facility] [address] [place] [address] Manas Blancas MD [address] [place] [address] documented as of this encounter Visit Diagnoses Diagnosis Lumbar degenerative disc disease documented in this encounter Additional Health Concerns Assessment Noted Time PHQ-2 Depression Total Score: 6 05/02/20 22 12:07 PM EDT documented as of this encounter Care Teams Edgerman Relationship Specialty Start Date End Date Manas Blancas MD [address] [address] PCP - General Family Medicine 05/02/22 documented as of this encounter
--- OUTSIDE RECORDS SUMMARY | 2025-06-17 21:30 | XMS_ITS | Encounter Summary ---
Author Organization [facility] Address [address] [place] [address] Care Team Providers Care Traffic Clerk Name Role Phone Manas Jenkins MD Primary Care Provider + Encounter Details Date Type Department Care Team (Late Contact Info) Description 06/10/2025 Results Follow-Up [facility] MEDICINE [address] [place] [address] Manas Jenkins MD [address] [place] [address] 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 Tobacco Use Types [...] Encounters Date Type Department Care Team (Late Contact Info) Description 09/23/2025 3:45 PM EDT Office Visit [facility] MEDICINE [address] [place] [address] Manas Jenkins MD [address] [place] [address] documented as of this encounter Visit Diagnoses Not on filedocumented in this encounter Additional Health Concerns Assessment Noted Time PHQ-2 Depression Total Score: 1 11/27/19 24 1:57 PM EST documented as of this encounter Care Teams Traffic Clerk Relationship Specialty Start Date End Date Manas Jenkins MD [address] [place] [address] PCP - General Family Medicine 05/02/22 documented as of this encounter
--- OUTSIDE RECORDS SUMMARY | 2025-06-17 21:30 | XMS_ITS | Encounter Summary ---
[facility] [address] [place] [address] Care Team Providers Care Can Reconditioner Name Role Phone Manas Jenkins MD Primary Care Provider + Reason for Visit * Reason Comments Med Refill Encounter Details Date Type Department Care Team (Late Contact Info) Description 05/30/2025 Refill [facility] MED[facility]INE [address] [place] [address] Manas Jenkins MD [address] [place] [address] 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 Tobacco Use Types [...] Description 09/23/2025 3:45 PM EDT Office Visit [facility] MED[facility]INE [address] [place] [address] Manas Jenkins MD [address] [address] documented as of this encounter Visit Diagnoses Not on filedocumented in this encounter Additional Health Concerns Assessment Noted Time PHQ-2 Depression Total Score: 1 11/27/19 24 1:57 PM EST documented as of this encounter Care Teams Can Reconditioner Relationship Specialty Start Date End Date Manas Jenkins MD [address] [address] PCP - General Family Medicine 05/02/22 documented as of this encounter
--- OUTSIDE RECORDS SUMMARY | 2025-06-17 21:30 | XMS_ITS | Encounter Summary ---
[facility] [address] [place] [address] Care Team Providers Care Software Designer Name Role Phone Manas Jenkins MD Primary Care Provider + Reason for Visit * Reason Comments Med Refill Encounter Details Date Type Department Care Team (Late st Contact Info) Description 05/05/2025 Refill [facility] MEDICINE [address] [facility] [place] [address] Manas Jenkins MD [address] [facility] [place] [address] Primary osteoarthritis of right knee; [...] Description 09/23/2025 3:45 PM EDT Office Visit [facility] [address] [place] [address] Manas Jenkins MD [address] [place] [address] documented as of this encounter Visit Diagnoses Diagnosis Primary osteoarthritis of right knee Chronic right-sided low back pain with right-sided sciatica documented in this encounter Additional Health Concerns Assessment Noted Time PHQ-2 Depression Total Score: 1 11/27/19 24 1:57 PM EST documented as of this encounter Care Teams Software Designer Relationship Specialty Start Date End Date Manas Jenkins MD [address] [address] PCP - General Family Medicine 05/02/22 documented as of this encounter
--- OUTSIDE RECORDS SUMMARY | 2025-06-17 21:30 | XMS_ITS | Encounter Summary ---
[facility] [address] [place] [address] Care Team Providers Care Mechanical Maintenance Foreman Name Role Phone Manas Jenkins MD Primary Care Provider + Encounter Details Date Type Department Care Team (Late Contact Info) Description 05/24/2025 Results Follow-Up [facility] MEDICINE [address] [place] [address] Manas Jenkins MD [address] [place] [address] 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 Tobacco Use Types [...] Description 09/23/2025 3:45 PM EDT Office Visit [facility] MED[facility]INE [address] [place] [address] Manas Jenkins MD [address] [place] [address] documented as of this encounter Visit Diagnoses Not on filedocumented in this encounter Additional Health Concerns Assessment Noted Time PHQ-2 Depression Total Score: 1 11/27/19 24 1:57 PM EST documented as of this encounter Care Teams Mechanical Maintenance Foreman Relationship Specialty Start Date End Date Manas Jenkins MD [address] [place] [address] PCP - General Family Medicine 05/02/22 documented as of this encounter
--- OUTSIDE RECORDS SUMMARY | 2025-06-17 21:30 | XMS_ITS | Encounter Summary ---
[facility] Address [address] [place] [address] Care Team Providers Care Process Control Manager Name Role Phone Manas Jenkins MD Primary Care Provider + Reason for Visit * Reason Comments Med Refill Encounter Details Date Type Department Care Team (Late st Contact Info) Description 05/10/[address] [facility] MEDICINE [address] [place] [address] Manas Jenkins MD [address] [place] [address] 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 Tobacco Use Types [...] 3:45 PM EDT Office Visit [facility] [address] [place] [address] Manas Jenkins MD [address] [address] documented as of this encounter Visit Diagnoses Not on filedocumented in this encounter Additional Health Concerns Assessment Noted Time PHQ-2 Depression Total Score: 1 11/27/19 24 1:57 PM EST documented as of this encounter Care Teams Process Control Manager Relationship Specialty Start Date End Date Manas Jenkins MD [address] [address] PCP - General Family Medicine 05/02/22 documented as of this encounter
--- OUTSIDE RECORDS SUMMARY | 2025-06-17 21:30 | XMS_ITS | Encounter Summary ---
Author Organization [facility] Address [address] [place] [address] Care Team Providers Care Inspector Aligning Name Role Phone Manas Jenkins MD Primary Care Provider + Encounter Details Date Type Department Care Team (Latest Contact Info) Description 06/09/2025 Travel 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 Tobacco Use Types Packs/Day [...] 3:45 PM EDT Office Visit [facility] [address] [facility] [place] [address] Manas Jenkins MD [address] [facility] [place] [address] documented as of this encounter Visit Diagnoses Not on filedocumented in this encounter Additional Health Concerns Assessment Noted Time PHQ-2 Depression Total Score: 1 11/27/19 24 1:57 PM EST documented as of this encounter Care Teams Inspector Aligning Relationship Specialty Start Date End Date Manas Jenkins MD [address] [place] [address] PCP - General Family Medicine 05/02/22 documented as of this encounter
--- OUTSIDE RECORDS SUMMARY | 2025-06-17 21:30 | XMS_ITS | Encounter Summary ---
[facility] Address [address] [place] [address] Care Team Providers Care Marine Steward Name Role Phone Manas Jenkins MD Primary Care Provider + Reason for Visit * Reason Comments Med Refill Encounter Details Date Type Department Care Team (Late st Contact Info) Description 01/30/2025 Refill [facility] [address] [place] [address] Manas Jenkins MD [address] [place] [address] 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 Tobacco Use Types [...] encounter Miscellaneous Notes * Telephone Encounter - Lisa Salter RegSched Rep - 03/01/2025 8:22 AM EDT Caller: Laura Mallory Relationship: Self Best call back number: [phone] Requested Prescriptions: Requested Prescriptions Pending Prescriptions Disp Refills promethazine (PHENERGAN) 25 MG tablet [Pharmacy Med Name: PROMETHAZINE 25MG] 30 tablet 0 Sig: TAKE 1 TABLET BY MOUTH EVERY SIX HOURS NEEDED FOR NAUSEA OR VOMITING MAY CAUSE DROWSINESS Pharmacy where request should be sent: [facility] - [place] - [address] [facility] [phone] [facility] [phone] FX Last office visit with prescribing clinician: 11/04/2024 Last telemedicine visit with prescribing clinician: Visit date not found Next office visit with prescribing clinician: 02/16/2025 Additional details provided by patient: PATIENT IS OUT OF MEDICATION Does the patient have less than a 3 day supply: [x] Yes [] No Raymond Patel Rep 03/01/25 08:23 EDT documented in this encounter Plan of Treatment Upcoming Encounters Date Type Department Care Team (Late st Contact Info) Description 09/23/2025 3:45 PM EDT Office Visit [facility] [address] [place] [place] [address] Manas Jenkins MD [address] [place] [address] documented as of this encounter Visit Diagnoses Not on filedocumented in this encounter Additional Health Concerns Assessment Noted Time PHQ-2 Depression Total Score: 1 11/27/19 24 1:57 PM EST documented as of this encounter Care Teams Marine Steward Relationship Specialty Start Date End Date Manas Jenkins MD [address] [place] [address] PCP - General Family Medicine 05/02/22 documented as of this encounter
--- OUTSIDE RECORDS SUMMARY | 2025-06-17 21:30 | XMS_ITS | Encounter Summary ---
[facility] [address] [place] [address] Care Team Providers Care At Home Independent Call Center Agent Name Role Phone Manas Jenkins MD Primary Care Provider + Reason for Visit * Reason Comments Med Refill Encounter Details Date Type Department Care Team (Late st Contact Info) Description 04/19/2025 Refill [facility] MEDICINE [address] [place] [address] Manas Jenkins MD [address] [place] [address] 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 Tobacco Use Types [...] 3:45 PM EDT Office Visit [facility] [address] [place] [address] Manas Jenkins MD [address] [address] documented as of this encounter Visit Diagnoses Not on filedocumented in this encounter Additional Health Concerns Assessment Noted Time PHQ-2 Depression Total Score: 1 11/27/19 24 1:57 PM EST documented as of this encounter Care Teams At Home Independent Call Center Agent Relationship Specialty Start Date End Date Manas Jenkins MD [address] [address] PCP - General Family Medicine 05/02/22 documented as of this encounter
--- OUTSIDE RECORDS SUMMARY | 2025-06-17 21:30 | XMS_ITS | Encounter Summary ---
[facility] Address [address] [place] [address] Care Team Providers Care Diesel Service Journeyman Name Role Phone Manas Jenkins MD Primary Care Provider + Reason for Visit * Reason Comments Med Refill Encounter Details Date Type Department Care Team (Late Contact Info) Description 06/07/2025 Refill [facility] MEDICINE [address] [facility] [place] [address] Manas Jenkins MD [address] [facility] [place] [address] Primary osteoarthritis of right knee; [...] EDT Office Visit [facility] [address] [place] [address] Manas Jenkins MD [address] [place] [address] documented as of this encounter Visit Diagnoses Diagnosis Primary osteoarthritis of right knee Chronic right-sided low back pain with right-sided sciatica documented in this encounter Additional Health Concerns Assessment Noted Time PHQ-2 Depression Total Score: 1 11/27/19 24 1:57 PM EST documented as of this encounter Care Teams Diesel Service Journeyman Relationship Specialty Start Date End Date Manas Jenkins MD [address] [address] PCP - General Family Medicine 05/02/22 documented as of this encounter
--- OUTSIDE RECORDS SUMMARY | 2025-06-17 21:31 | XMS_ITS | Clinical Summary ---
Author Organization [facility] Address [address] [place] [address] Care Team Providers Care Visual Display Manager Name Role Phone Manas Jenkins MD Primary Care Provider + Allergies Active Allergy Reactions Criticality Noted Date Comments Fexofenadine Nausea And Vomiting 10/14/2017 Naproxen Sodium Swelling 10/14/2017 Sumatriptan Anaphylaxis High 03/11/2023 Acetaminophen Diarrhea 01/07/2023 Medications aspirin (aspirin) 81 MG EC tablet Take by mouth Daily. 05/05/20 13 Active albuterol sulfate HFA 108 (90 Base) MCG/ACT inhaler 04/29/20 22 Active omeprazole (priLOSEC) 40 MG capsule TAKE 1 CAPSULE BY MOUTH ONCE DAILY 30 capsule 11 06/24/20 22 Active carvedilol (COREG) 3.125 MG tablet Take 1 tablet by mouth 2 (Two) Times a Day With Meals. Active sacubitril-valsart an (ENTRESTO) 24-26 MG tablet Take 1 tablet by mouth 2 (Two) Times a Day. Active spironolactone (ALDACTONE) 25 MG tablet Take 1 tablet by mouth 2 (Two) Times a Day. Active polyethylene glycol (MiraLax) 17 GM/SCOOP powder Take 17 g by mouth Daily. 578 g 11 09/04/20 23 Active Trelegy Ellipta 100-62.5-25 MCG/ACT inhaler Inhale 1 puff Daily. 10/27/20 23 Active topiramate (TOPAMAX) 100 MG tablet Take 1 tablet by mouth 2 (Two) Times a Day. 11/04/20 23 Active famotidine (PEPCID) 20 MG tablet Take 1 tablet by mouth Daily. 12/27/19 24 Active furosemide (LASIX) 80 MG tabletIndications: Chronic diastolic (congestive) heart failure Take 1 tablet by mouth 2 (Two) Times a Day. 60 tablet 1 08/05/20 24 Active mirtazapine (REMERON) 15 MG tablet Take 1 tablet by mouth Every Night. 10/25/20 24 Active phenazopyridine (Pyridium) 200 MG tablet Take 1 tablet by mouth 3 (Three) Times a Day As Needed for Bladder Spasms. 6 tablet 01/10/20 25 Active LORazepam (ATIVAN) 0.5 MG tabletIndications: Chronic anxiety TAKE 1 TABLET BY MOUTH TWICE DAILY NEEDED FOR ANXIETY MAY CAUSE DROWSINESS 60 tablet 01/18/20 25 Active Cholecalciferol (Vitamin D3) 50 MCG (2000 UT) capsule TAKE 1 CAPSULE BY MOUTH ONCE DAILY 30 capsule 4 03/04/20 25 Active gabapentin (NEURONTIN) 100 MG capsuleIndications :Chronic right-sided low back pain with right-sided sciatica TAKE 1 CAPSULE BY MOUTH THREE TIMES DAILY MAY CAUSE DROWSINESS 90 capsule 04/08/20 25 Active hydrOXYzine (ATARAX) 25 MG tablet TAKE 1 TABLET BY MOUTH TWICE DAILY NEEDED FOR ITCHING. 60 tablet 1 04/20/20 25 Active promethazine (PHENERGAN) 25 MG tablet TAKE 1 TABLET BY MOUTH EVERY 6 (SIX) HOURS NEEDED FOR NAUSEA OR VOMITING MAY CAUSE DROWSINESS 30 tablet 04/20/20 25 Active Linzess 72 MCG capsule capsule Take 1 capsule by mouth Every Morning Before Breakfast. 04/29/20 25 Active celecoxib (CeleBREX) 100 MG capsule Take 1 capsule by mouth 2 (Two) Times a Day. 04/22/20 25 Active atorvastatin (LIPITOR) 40 MG tabletIndications: Hypercholesterolem ia Take 1 tablet by mouth Every Night. 90 tablet 05/20/20 25 Active DULoxetine (CYMBALTA) 60 MG capsuleIndications :Chronic right-sided low back pain with right-sided sciatica Take 1 capsule by mouth Daily. 30 capsule 3 05/20/20 25 Active traMADol (ULTRAM) 50 MG tabletIndications: Primary osteoarthritis of right knee,Chronic right-sided low back pain with right-sided sciatica Take 1 tablet by mouth Every 8 (Eight) Hours As Needed for Moderate Pain. 90 tablet 06/09/20 25 Active cefdinir (OMNICEF) 300 MG capsule Take 1 capsule by mouth 2 (Two) Times a Day. 14 capsule 06/10/20 25 Active brompheniramine-ps eudoephedrine-DM 30-2-10 MG/5ML syrup Take 5 mL by mouth 4 (Four) Times a Day As Needed for Cough. 120 mL 12/03/19 25 025 Discontin ued(*Ther apy completed ) atorvastatin (LIPITOR) 40 MG tablet TAKE ONE TABLET BY MOUTH AT BEDTIME FOR CHOLESTEROL 90 tablet 02/17/20 25 025 Discontin ued(Reord er) DULoxetine (CYMBALTA) 60 MG capsuleIndications :Chronic right-sided low back pain with right-sided sciatica TAKE 1 CAPSULE BY MOUTH ONCE DAILY 30 capsule 1 03/18/20 25 025 Discontin ued(Reord er) traMADol (ULTRAM) 50 MG tabletIndications: Primary osteoarthritis of right knee,Chronic right-sided low back pain with right-sided sciatica Take 1 tablet by mouth Every 8 (Eight) Hours As Needed for Moderate Pain. 90 tablet 05/05/20 25 025 Discontin ued(Reord er) Active Problems Problem Noted Date Diagnosed Date Stress-induced cardiomyopathy 05/20/2025 ERRONEOUS ENCOUNTER--DISREGARD 08/06/2024 Chronic pruritus 08/05/2024 Assessment & Plan (08/05/2024 12:20 PM EDT): Patient will continue hydroxyzine 1-2 times daily. Patient educated of side effect of increased appetite with use of this medication Obesity, Class III, BMI 40-49.9 (morbid obesity) 08/05/2024 Assessment & Plan (08/05/2024 12:21 PM EDT): Patient's (Body mass index is 44.9 kg/m .) indicates that they are morbidly/severely obese (BMI > 40 or > 35 with obesity - related health condition) with health conditions that include hypertension and dyslipidemias . Weight is worsening. BMI is above average; BMI management plan is completed. We discussed portion control, increasing exercise, and pharmacologic options including semaglutide . Patient's weight gain over the last 5 months is not desirable and it would seem that she is no longer retaining excess fluid. Previous highest weight was 298 pounds. She would benefit from use of antiobesity medication but insurance does not cover use of semaglutide for chronic weight management. We discussed ways to reduce Chronic diastolic (congestive) heart failure 06/2024 Assessment & Plan (08/05/2024 12:19 PM EDT): Patient is euvolemic. She will continue current diuretic regimen. Patient has follow-up with cardiology next week. Labs to assess renal function, volume status, possible iron deficiency have been ordered. Patient will follow-up in 2 months Assessment & Plan (07/01/2024 5:19 PM EDT): Fortunately patient is asymptomatic today. She will increase furosemide to 80 mg twice daily along with spironolactone 25 mg twice daily. She has cardiology follow-up later this month. I we will see her back in 1 month. She will reduce her coffee consumption to 4 cups/day. 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 Referred to neurology, Dr. Glo Anderson Encounters Date Type Department Care Team Description 06/17/2025 Refill [facility] [address] [address] Manas Jenkins MD 06/15/2025 Telephone [facility] [address] [address] Manas Jenkins MD Med Management 06/15/2025 Telephone [facility] [address] [facility] [place] [place] [address] Manas Jenkins MD Leg Swelling 06/10/2025 Results Follow-Up [facility] [address] [place] [address] Manas Jenkins MD 06/09/2025 11:15 AM EDT Office Visit [facility] [address] [facility] [place] [address] Manas Jenkins MD Urinary tract infection without hematuria, site unspecified (Primary Dx); Pneumonia of both lungs due to infectious organism, unspecified part of lung; Hypocalcemia; Shock liver; Physical deconditioning; Primary osteoarthritis of right knee; Chronic right-sided low back pain with right-sided sciatica; Metabolic encephalopathy; Hypotension due to drugs; Anemia, unspecified type 06/09/2025 Travel 06/07/2025 Refill [facility] [address] [place] [address] Manas Jenkins MD Primary osteoarthritis of right knee; Chronic right-sided low back pain with right-sided sciatica 06/07/2025 Refill [facility] [address] [facility] [place] [place] [address] Manas Jenkins MD Primary osteoarthritis of right knee; Chronic right-sided low back pain with right-sided sciatica 05/30/2025 Refill [facility] [address] [facility] [place] [place] [address] Manas Jenkins MD 05/30/2025 Telephone [facility] [address] [facility] [place] [place] [address] Manas Jenkins MD HOME HEALTH VERBAL NEEDED 05/24/2025 Results Follow-Up [facility] [address] [place] [address] Manas Jenkins MD 05/20/2025 4:00 PM EDT Office Visit [facility] [address] [place] [address] Manas Jenkins MD Hypercholesterolemia (Primary Dx); Chronic right-sided low back pain with right-sided sciatica; Hyperglycemia; Moderate persistent asthma without complication; Bilateral hip joint arthritis; Chronic pain syndrome; Chronic anxiety; Chronic diastolic (congestive) heart failure; Obesity, Class III, BMI 40-49.9 (morbid obesity); Stress-induced cardiomyopathy; Polypharmacy 05/20/2025 Travel 05/10/2025 Refill [facility] [address] [place] [address] Manas Jenkins MD 05/05/2025 Refill [facility] [address] [place] [address] Manas Jenkins MD Primary osteoarthritis of right knee; Chronic right-sided low back pain with right-sided sciatica 04/20/2025 Refill [facility] [address] [place] [address] Manas Jenkins MD 04/19/2025 Refill [facility] [address] [facility] [place] [address] Manas Jenkins MD 04/07/2025 Refill [facility] [address] [facility] [place] [address] Manas Jenkins MD Chronic right-sided low back pain with right-sided sciatica; Primary osteoarthritis of right knee; Chronic right-sided low back pain with right-sided sciatica 04/04/2025 Refill [facility] [address] [facility] [place] [address] Manas Jenkins MD 03/22/2025 Telephone [facility] [address], [place] [address] Manas Jenkins MD New Med Request 03/18/2025 Refill [facility] [address], [place] [address] Manas Jenkins MD Chronic right-sided low back pain with right-sided sciatica from Last 3 Months Immunizations Immunization Administration Dates Next Due TST, UF 03/07/2023,02/26/2023 Tdap 01/24/2024 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 Tobacco Use Types Packs/Day [...] Pressure 128/80 05/20/2025 3:11 PM EDT Pulse 89 06/09/2025 11:00 AM EDT Temperature 37 C (98.6 F) 06/09/2025 11:00 AM EDT Respiratory Rate 24 06/09/2025 11:00 AM EDT Oxygen Saturation 98% 06/09/2025 11:00 AM EDT Inhaled Oxygen Concentration - - Weight 122 kg (268 lb 9.6 oz) 05/20/2025 3:11 PM EDT Height 165.1 cm (5' 5 ) 06/09/2025 11:00 AM EDT Body Mass Index 44.7 05/20/2025 3:11 PM EDT Plan of Treatment Upcoming Encounters Date Type Department Care Team (Late st Contact Info) Description 09/23/2025 3:45 PM EDT Office Visit [facility] [address] [place], [place] [address] Manas Jenkins MD [address] [place] [address] Health Maintenance Due Date Last Done Comments DXA SCAN 1960 Pneumococcal Vaccine 50+ (1 of 2 - PCV) 1978 COLOGUARD 2004 COLON CANCER SCREENING [address] COLONOGRAPHY 2004 FIT Testing (1 year) 2004 ZOSTER VACCINE (1 of 2) 2009 FECAL OCCULT BLOOD TEST 12/03/2017 12/03/19, 08/31/2015, 07/30/2013 COVID-19 Vaccine ( season) 2025 Postponed from 07/25/2024 (Product Unavailable) INFLUENZA VACCINE 08/24/2025 ANNUAL WELLNESS VISIT 11/04/2025 11/04/2024 , 11/04/2024, 12/03/2016, Additional history exists MAMMOGRAM 05/03/2026 11/15/2015, 09/24, 10/11/2015, Additional history exists Postponed from 11/15/2017 (Patient Refused) LIPID PANEL 05/20/2026 05/20/2025, 05/25, 05/31/2024, Additional history exists TDAP/TD VACCINES (2 - Td or Tdap) 01/23/2034 01/24/2024 COLONOSCOPY 12/29/2034 12/29/2024, 02/23, 06/30/2013 COLORECTAL CANCER SCREENING 12/29/2034 HEPATITIS C SCREENING Completed 05/26/2025, 024 Procedures Procedure Name Priority Date/Time Associated Diagnosis Comments CBC (NO DIFF) Routine 06/09/2025 11:46 AM EDT Pneumonia of both lungs due to infectious organism, unspecified part of lung VITAMIN D,25-HYDROXY Routine 06/09/2025 11:46 AM EDT Hypocalcemia COMPREHENSIVE METABOLIC PANEL Routine 06/09/2025 11:46 AM EDT Hypocalcemia Shock liver SCANNED EKG 05/25/2025 SCANNED - LABS 05/25/2025 SCANNED - LABS 05/25/2025 SCANNED - LABS 05/25/2025 SCANNED - LABS 05/25/2025 SCANNED - LABS 05/25/2025 SCANNED - LABS 05/25/2025 SCANNED - LABS 05/25/2025 SCANNED - LABS 05/25/2025 SCANNED - LABS 05/25/2025 SCANNED - LABS 05/25/2025 SCANNED - LABS 05/25/2025 SCANNED - LABS 05/25/2025 SCANNED - LABS 05/25/2025 SCANNED - LABS 05/25/2025 SCANNED - LABS 05/25/2025 SCANNED - LABS 05/25/2025 SCANNED - LABS 05/25/2025 SCANNED - IMAGING 05/25/2025 SCANNED - IMAGING 05/25/2025 SCANNED - IMAGING 05/25/2025 SCANNED - IMAGING 05/25/2025 LIPID PANEL Routine 05/20/2025 3:59 PM EDT Hypercholesterolemi a HEMOGLOBIN A1C Routine 05/20/2025 3:59 PM EDT Hyperglycemia SCANNED - LABS 04/13/2025 SCANNED - LABS 04/13/2025 SCANNED - LABS 04/13/2025 SCANNED - LABS 04/13/2025 SCANNED - IMAGING 04/13/2025 SCANNED - IMAGING 04/05/2025 SCANNED - IMAGING 04/05/2025 SCANNED - IMAGING 04/05/2025 from Last 3 Months Results * Vitamin D,25-Hydroxy (06/09/2025 11:46 AM EDT) [facility] 25 Hydroxy, Vitamin D 55.2 30.0 - 100.0 ng/mL [facility] Comment: Vitamin D deficiency has been defined by the [place] of [employer] and an Endocrine Society practice guideline as a level of serum 25-OH vitamin D less than 20 ng/mL (1,2). The Endocrine Society went on to further define vitamin D insufficiency as a level between 21 and 29 ng/mL (2). 1. IOM ([place] of [employer]). 2010. Dietary reference intakes for calcium and D. [place]: The National Academies Press. 2. Kael MF, Kd NC, Valente HOLCOMB, et al. Evaluation, treatment, and prevention of vitamin D deficiency: an Endocrine Society clinical practice guideline. JCEM. 2010; 96(7):1911-30. Blood 06/09/2025 11:4 6 AM EDT 06/09/2025 Narrative [facility] (AMBULATORY) - 06/10/2025 7:09 AM EDT Performed at: 01 - [address] [id number] Tax Compliance Representative: Dave Escudero PhD, Phone: [phone] Patient Fasting: Y Manas Jenkins MD LAB BLOOD ORDERABLES Fin al Result [facility] [employer] [facility] (AMBULATORY) [address] [place] [address], [facility] [address] [place] [id number], * (ABNORMAL) CBC (No Diff) (06/09/2025 11:46 [...] 7:09 AM EDT Performed at: 01 - [facility] [address] [facility], [place], [place] [id number] Tax Compliance Representative: Dave Escudero PhD, Phone: [phone] Patient Fasting: Y us Manas Jenkins MD LAB BLOOD ORDERABLES Fin al Result [facility] (AMBULATORY) [address] [place] [address], [facility] [address] [place] [address], * (ABNORMAL) Comprehensive Metabolic Panel (06/09/2025 11:46 [...] 11:4 6 AM EDT 06/09/2025 Narrative [facility] (AMBULATORY) - 06/10/2025 7:09 AM EDT [facility]formed at: - [facility] [address] [place], [place] [id number] Tax Compliance Representative: Dave Escudero PhD, Phone: [phone] Patient Fasting: Y us Manas Jenkins MD LAB BLOOD ORDERABLES Fin al Result [facility] [address] [place] [address], [facility] [address] [place] [address], * ECG Scan (05/25/2025) us Manas Jenkins MD ECG ORDERABLES Final Re sult * IMAGING SCANNED (05/25/2025) Only the most recent of8 resultswithin the time period is included. Anatomical Region Laterality Modality Radiographic Destiny ging us Manas Jenkins MD IMG DIAGNOSTIC IMAGING O RDERABLES Final Result * LABS SCANNED (05/25/2025) Only the most recent of21 resultswithin the time period is included. us Manas Jenkins MD LAB BLOOD ORDERABLES Fin al Result * (ABNORMAL) Hemoglobin A1c (05/20/2025 3:59 PM EDT) Hemoglobin A1C 5.7(H) 4.8 - 5.6 % [facility] Comment: Prediabetes: 5.7 - 6.4 Diabetes: >6.4 Glycemic control for adults with diabetes: <7.0 Blood 05/20/2025 3:59 PM EDT 05/20/2025 Narrative [facility] - 05/24/2025 8:11 AM EDT Performed at: [facility] [address] [place], [place] [id number] Tax Compliance Representative: Dave Escudero PhD, Phone: [phone] Patient Fasting: Y us Manas Jenkins MD LAB BLOOD ORDERABLES Fin al Result Performing Organization Address City/[facility]/ZIP Co de Phone Number [facility] (AMBULATORY) [address] [place] [address], [facility] [address] [place] [address], [place] [phone] * Lipid Panel (05/20/2025 3:59 PM EDT) Total Cholesterol 152 100 - 199 mg/dL [facility] Triglycerides 138 0 - 149 mg/dL [facility] HDL Cholesterol 43 >39 mg/dL [facility] VLDL Cholesterol Kuldeep 24 5 - 40 mg/dL [facility] LDL Chol Calc (NIH) 85 0 - 99 mg/dL [facility] Blood 05/20/2025 3:59 PM EDT 05/20/2025 Narrative [facility] (AMBULATORY) - 05/24/2025 8:11 AM EDT Performed at: 01 - [facility] [address] [place] [id number] Tax Compliance Representative: Dave Escudero PhD, Phone: [phone] Patient Fasting: Y Manas Jenkins MD LAB BLOOD ORDERABLES Fin al Result Performing Organization Address [facility] Co de Phone Number [facility] [address] [place] [address], [facility] [address] [place] [address], [place] [phone] from Last 3 Months Insurance MEDICARE A & B [facility] Care Teams Visual Display Manager Relationship Specialty Start Date End Date Manas Jenkins MD [address] [place] [address] PCP - General Family Medicine 05/02/22
--- OUTSIDE RECORDS SUMMARY | 2025-06-17 21:31 | XMS_ITS | Encounter Summary ---
Author Organization [facility] yste Address [address] [place] [address] Care Team Providers Care Public Weigher Name Role Phone Manas Jenkins MD Primary Care Provider + Reason for Visit * Reason Comments Med Refill Encounter Details Date Type Department Care Team (Late Contact Info) Description 05/24/2022 Refill [facility] [address] [place] [address] Manas Jenkins MD [address] [place] [address] Lumbar degenerative disc disease 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 Tobacco Use Types Packs/Day Years Used Date Smoking Tobacco: Former Cigarettes Q uit: 2004 Smokeless Tobacco: Never Alcohol Use Standard Drinks/Week [...] Description 09/23/2025 3:45 PM EDT Office Visit [facility] [address] [place] [address] Manas Jenkins MD [address] [place] [address] documented as of this encounter Visit Diagnoses Diagnosis Lumbar degenerative disc disease documented in this encounter Additional Health Concerns Assessment Noted Time PHQ-2 Depression Total Score: 6 05/02/20 22 12:07 PM EDT documented as of this encounter Care Teams Public Weigher Relationship Specialty Start Date End Date Manas Jenkins MD [address] [place] [address] PCP - General Family Medicine 05/02/22 documented as of this encounter
--- OUTSIDE RECORDS SUMMARY | 2025-06-17 21:31 | XMS_ITS | Clinical Summary ---
Author Organization Healthcare Address [address] [place] [address] Care Team Providers Care Raw Stock Machine Loader Name Role Phone Stevo Salter MD Primary Care Provider [phone] Encounters Date Type Department Care Team Description 05/25/2025 Orders Only External Location [address] [place] [address] Jarod Cazares from Last 3 Months 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 Tobacco Use Types Packs/Day Years [...] [facility]-Bone Density Scan 1959 [facility]-Depression Screening 1959 [facility]-/Child/Adol SDOH Screenings 1959 [facility]- SDOH Screenings 1977 [facility]-Adult SDOH Screenings 1977 [facility]-DTaP,Tdap,and Td Vaccine s (1 - Tdap) 1978 [facility]-Pap Smear 1980 [facility]-Cervical Cancer Screening 1989 [facility]-HPV/Cotest 1989 CT Colonography 2004 Colonoscopy 2004 FIT-DNA 2004 FIT 2004 FOBT 2004 Sigmoidoscopy 2004 [facility]-Colorectal Cancer Screening 2004 [facility]-Pneumococcal Vaccine: 50 + Years (1 of 1 - PCV) 2009 [facility]-Zoster Vaccines (1 of 2) 2009 [id number] Vaccine (1 - 20 24-25 season) 2024 [facility]-Influenza Vaccine (#1) 2025 [facility]-RSV Vaccine: 60+ Years o r [...] US OUTSIDE IMAGES 05/25/2025 2:17 PM EDT from Last 3 Months Results * US OUTSIDE IMAGES (05/25/2025 2:17 PM EDT) Anatomical Region Laterality Modality Ultrasound 05/25/2025 2:17 PM EDT Jarod Cazares [facility] Final Result from Last 3 Months Insurance MEDICARE [place] Care Teams Raw Stock Machine Loader Relationship Specialty Start Date End Date Stevo Salter MD [address] [place] [address] [address] [place] [id number] PCP - General 04/06/21
--- OUTSIDE RECORDS SUMMARY | 2025-06-17 21:31 | XMS_ITS | Encounter Summary ---
[facility] Address [address] [place] [address] Care Team Providers Care Anode Crew Supervisor Name Role Phone Manas Jenkins MD Primary Care Provider + Reason for Visit * Reason Onset Date Comments Med Refill 05/22/2022 New Med Request 05/22/2022 Encounter Details Date Type Department Care Team (Late st Contact Info) Description 05/22/2022 Refill [facility] [address] [place] [address] Manas Jenkins MD [address] [place] [address] Lumbar degenerative disc disease Social [...] encounter Miscellaneous Notes * Telephone Encounter - Hunter Torrez MD - 05/24/2022 1:36 PM EDT See other message. * Telephone Encounter - Lisa Salter RegSched Rep - 05/22/2022 2:57 PM EDT Caller: Laura Mallory Relationship: Self Best call back number: [phone] What medication are you requesting: What are your current symptoms: COUGHING AND CHEST COLD (CONGESTION) AND A SMALL WHEEZE How long have you been experiencing symptoms: 2 DAYS Have you had these symptoms before: [x] Yes [] No Have you been treated for these symptoms before: [x] Yes [] No If a prescription is needed, what is your preferred pharmacy and phone number: [facility] - [facility] [address] [place] - [phone] [facility] [phone] FX Additional notes: PLEASE CALL TO ADVISE * Telephone Encounter - Joel Waldron RegSched Rep - 05/22/2022 1:34 PM EDT Caller: Laura Mallory Relationship: Self Best call back number: [phone] Requested Prescriptions: Requested Prescriptions Pending Prescriptions Disp Refills ??? oxyCODONE-acetaminophen (Percocet) 10-325 MG per tablet 90 tablet 0 Sig: Take 1 tablet by mouth Every 8 (Eight) Hours As Needed for Severe Pain . Pharmacy where request should be sent: [facility] [address] [place] - [phone] [facility] [phone] FX Additional details provided by patient: Does the patient have less than a 3 day supply: [x] Yes [] No documented in this encounter Plan of Treatment Upcoming Encounters Date Type Department Care Team (Late st Contact Info) Description 09/23/2025 3:45 PM EDT Office Visit [facility] [address] [place] [phone] Manas Jenkins MD [address] [place] [address] documented as of this encounter Visit Diagnoses Diagnosis Lumbar degenerative disc disease documented in this encounter Additional Health Concerns Assessment Noted Time PHQ-2 Depression Total Score: 6 05/02/20 22 12:07 PM EDT documented as of this encounter Care Teams Anode Crew Supervisor Relationship Specialty Start Date End Date Manas Jenkins MD [address] [place] [address] PCP - General Family Medicine 05/02/22 documented as of this encounter
--- OUTSIDE RECORDS SUMMARY | 2025-06-17 21:31 | XMS_ITS | Clinical Summary ---
Author Organization [facility] Address [facility] [place] [address] Phone Care Team Providers Care Associate Dentist Name Role Phone GregoryManas harvey Blaine Primary Care Provider [phone] Allergies No known active allergies Medications No [...] Procedure Name Priority Date/Time Associated Diagnosis Comments DOCUMENT IMPROVEMENT SPECIALIST CYTOLOGY REPORT Routine 04/26/2010 5 :13 AM EDT from Last 3 Months or Most Recently Relevant to Health Maintenance Results * DOCUMENT IMPROVEMENT SPECIALIST CYTOLOGY REPORT (04/26/2010 5:13 AM EDT) Public Works Director Cytology Report PATIENT NAME:SUHAIL MALLORY Public Works Director Cytology Report Accession Number Collected Date/Time Received Date/Time [id number] 04/26/10 05:13 EDT 04/27/10 05:13 EDT GY [...] before definitive therapy. Processed using the ThinPrep Director Of Intelligence automated cytology screening device (Selatra). Sap Project Manager: MARK 05/11/2010 Completed by: MINE Landa (Electronically signed by) 05/11/2010 [facility] Laboratory [facility] 04/26/2010 5:13 AM EDT [facility] PATHOLOGY ORDERABLES Miranda taras Result [facility] [address] [place] [address] from Last 3 Months or Most Recently Relevant to Health Maintenance Insurance MEDICARE [place] PART A AND [place] [place] [address] [employer] [facility] [place] Care Teams Associate Dentist Relationship Specialty Start Date End Date Manas Jenkins [address] [place] [address] PCP - General 08/28/10
--- OUTSIDE RECORDS SUMMARY | 2025-06-17 21:31 | XMS_ITS ---
Author Organization [facility] Care Team Providers Care Oil Gauger Name Role Phone Sondra Maria (Nona) Unavailable Unavail able Manas Jalloh Unavailable Unavailable Allergies and adverse reactions Code CodeSystem Substance Reaction Severity StartDate Concern Status 7258 RXNORM Naproxen Severe 02/26/2023 active 19513 RXNORM Fexofenadine Nausea (code- 761400665, SNOMED CT) Mild 02/26/2023 active Augmentin Severe 02/26/2023 active 723 RXNORM Amoxicillin Severe 02/26/2023 active Care Team Name Role Address Phone Organization Dates Manas Jalloh PCP [address] [place] [address], [place], [address], [facility] (Office): [facility] 02/27/2023 - 03/17/2023 Sondra Maria (Sara) [place], [address], [facility] (Office): : [facility] - [facility] 02/27/2023 - 03/17/2023 Goals Section Goals Description [...] completed tuberculin skin test; unspecified formulation lotNumber: [id number] expiry: 05/01/2025 Mfg: sanofi pasteur Given 0.1 ml Right Forearm intradermally Step 2 of Multi-step with next step required 98 CVX created date: 03/09/2023 consent date: 03/09/2023 administere d date: 03/07/2023 TB 2 Step Mantoux Skin Test completed tuberculin skin test; unspecified formulation lotNumber: [id number] expiry: 05/01/2025 Mfg: sanofi pasteur limited Given [...] Concern Status 1 ACIDOSIS, UNSPECIFIED 02/27/[address] active 2 ACUTE ON CHRONIC SYSTOLIC (CONGESTIVE) HEART FAILURE 02/27/[address] active 3 ACUTE RESPIRATORY FAILURE WITH HYPOXIA 02/27/[address] active 4 ATHEROSCLEROTIC HEART DISEASE OF [place] CORONARY ARTERY WITHOUT ANGINA PECTORIS 02/27/[address] active 5 DEPRESSION, UNSPECIFIED 02/27/[address] active 6 ESSENTIAL (PRIMARY) HYPERTENSION 02/27/[address] active 7 GASTRO-ESOPHAGEAL REFLUX DISEASE WITHOUT ESOPHAGITIS 02/27/[address] active 8 HYPERLIPIDEMIA, UNSPECIFIED 02/27/[address] active 9 MUSCLE WEAKNESS (GENERALIZED) 02/27/[address] active 10 NON-ST ELEVATION (NSTEMI) MYOCARDIAL INFARCTION 02/27/[address] active 11 OBSTRUCTIVE SLEEP APNEA (ADULT) (PEDIATRIC) 02/27/[address] active 12 OTHER SYMBOLIC DYSFUNCTIONS 02/27/[address] active 13 PNEUMONIA, UNSPECIFIED ORGANISM 02/27/[address] active 14 SEPSIS, UNSPECIFIED ORGANISM 02/27/[address] active 15 TAKOTSUBO SYNDROME 02/27/[address] active 16 UNSPECIFIED ASTHMA, UNCOMPLICATED 02/27/[address] active 17 VERY LOW LEVEL OF PERSONAL HYGIENE 02/27/[address] active Reason for Referral No Reasons for Referral Entered 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 Observation Description Start Date End Date Code Code System Current Smoking Status Tobacco smoking consumption unknown 616051200 SNOMED CT Sex Assigned At Female 1960 46071-[address] [facility] Gender Identity Vital Signs Code Code System Vitals Name Values and Units Timing Information 8462-[address] [facility] Blood Pressure-Diastolic Value=62 Un its=mmHg 03/17/2023 8480-[address] [facility] Blood Pressure-Systolic Tldld=163 Un its=mmHg 03/17/2023 8867-[address] [facility] Heart rate Value=89.0 Units=/min 69871-[address] [facility] Pain Level Value=3.0 03/17/2023 9279-[address] [facility] Respiratory Rate Value=18.0 Units=/m in 03/15/2023 46631-[address] [facility] O2 % BldC Oximetry Value=97.0 Units= % 03/15/2023 8310-[address] [facility] Body Temperature Value=98.0 Units= F 03/15/2023 71994-2 LOINC Weight Icski=791.0 Units=Lbs 8302-2 LOINC Height Value=66.0 Units=Inches 02/26/2023
--- OUTSIDE RECORDS SUMMARY | 2025-06-17 21:31 | XMS_ITS | Encounter Summary ---
[facility] Address [address] [place] [address] Care Team Providers Care Design Printer Balloon Name Role Phone Manas Jenkins MD Primary Care Provider + Reason for Visit * Reason Onset Date Comments Med Refill 01/16/2023 Encounter Details Date Type Department Care Team (Late st Contact Info) Description 01/16/2023 Refill [facility] [address] [place] [address] Manas Jenkins MD [address] [place] [address] Migraine without aura and without status migrainosus, not intractable; Lumbar degenerative disc disease 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 Tobacco Use Types Packs/Day Years Used Date Smoking Tobacco: Former Cigarettes Q uit: 2004 Smokeless Tobacco: Never Alcohol Use Standard Drinks/Week Comments Not Currently 0 (1 standard drink = 0.6 oz pur e alcohol) PHQ-2 Answer Date Recorded Retired PHQ-9: Brief Depression Severity Measure Score 2 01/07/2023 PHQ-2 Answer Date Recorded Retired PHQ-9: Brief Depression Severity Measure Score 2 01/07/2023 Comments Unknown Sex and Gender Information Value Date Recorded Sex Assigned at Not on file Legal Sex Female 11:44 AM EDT Gender Identity Not on file Sexual Orientation Not on file documented as of this encounter Miscellaneous Notes * Telephone Encounter - July Hernandez RegSched Rep - 01/16/2023 10:36 AM EST DELETE AFTER REVIEWING: Send the encounter HIGH priority, If patient has less than a 3 day supply. If the patient will run out of medication over the weekend add that information to the additional details line. Send this encounter to the clinical pool. Caller: Laura Mallory Relationship: Self Best call back number: [phone] Requested Prescriptions: Requested Prescriptions Pending Prescriptions Disp Refills ??? SUMAtriptan (Imitrex) 100 MG tablet 9 tablet 2 Sig: Take one tablet at onset of headache. May repeat dose one time in 2 hours if headache not relieved. ??? oxyCODONE-acetaminophen (PERCOCET) 10-325 MG per tablet 90 tablet 0 Sig: Take 1 tablet by mouth Every 8 (Eight) Hours As Needed for Moderate Pain. ??? potassium chloride (K-DUR,KLOR-CON) 20 MEQ CR tablet 90 tablet 1 Sig: Take 1 tablet by mouth 3 (Three) Times a Day. Pharmacy where request should be sent: [facility] [address] [phone] PH - [phone] FX Additional details provided by patient: PATIENT ALMOST OUT OF HER SUMATRIPTAN, AND POTASSIUM Does the patient have less than a 3 day supply: [x] Yes [] No Would you like a call back once the refill request has been completed: [x] Yes [] No If the office needs to give you a call back, can they leave a voicemail: [x] Yes [] No Raymond Sparks Rep 01/16/23 10:38 EST documented in this encounter Plan of Treatment Upcoming Encounters Date Type Department Care Team (Late st Contact Info) Description 09/23/2025 3:45 PM EDT Office Visit [facility] [address] [place] [address] Manas Jenkins MD [address] [place] [address] documented as of this encounter Visit Diagnoses Diagnosis Migraine without aura and without status migrainosus, not intractable Lumbar degenerative disc disease documented in this encounter Additional Health Concerns Assessment Noted Time PHQ-2 Depression Total Score: 2 01/07/20 23 2:21 PM EST documented as of this encounter Care Teams Design Printer Balloon Relationship Specialty Start Date End Date Manas Jenkins MD [address] [place] [address] PCP - General Family Medicine 05/02/22 documented as of this encounter
--- OUTSIDE RECORDS SUMMARY | 2025-06-17 21:31 | XMS_ITS | Encounter Summary ---
Author Organization [facility] Address [address] [place] [address] Care Team Providers Care Manager Functional Name Role Phone Manas Jenkins MD Primary Care Provider + Reason for Visit * Reason Comments Med Refill Encounter Details Date Type Department Care Team (Late Contact Info) Description 08/19/2022 Refill [facility] [address] [place] [address] Manas Jenkins MD [address] [place] [address] Lumbar degenerative disc disease Social [...] CENTER [facility] [address] [place] [address] Manas Jenkins MD [address] [place] [address] documented as of this encounter Visit Diagnoses Diagnosis Lumbar degenerative disc disease documented in this encounter Additional Health Concerns Assessment Noted Time PHQ-2 Depression Total Score: 6 05/02/20 22 12:07 PM EDT documented as of this encounter Care Teams Manager Functional Relationship Specialty Start Date End Date Manas Jenkins MD [address] [place] [address] PCP - General Family Medicine 05/02/22 documented as of this encounter
[2025-06-17 22:00] VITALS: BP 94/46; PULSE 74; RESP 18; O2SAT 92
--- NOTE | 2025-06-17 22:12 | CT_ITS ---
PROCEDURE INFORMATION: Exam: CT Abdomen And Pelvis With Contrast Exam date and time: 06/18/2025 12:37 AM Age: 64 years old Clinical indication: Abdominal pain; Flank; Left; Additional info: Lower abdominal pain, left hip pain TECHNIQUE: Imaging protocol: Computed tomography of the abdomen and pelvis with contrast. Radiation optimization: All CT scans at this facility use at least one of these dose optimization techniques: automated exposure control; mA and/or kV adjustment per patient size (includes targeted exams where dose is matched to clinical indication); or iterative reconstruction. Contrast material: ISOVUE; Contrast volume: 75 ml; Contrast route: IV; COMPARISON: CT BONY PELVIS 06/18/2025 12:35 AM FINDINGS: Esophagus: The esophagus is normal. Liver: The liver is normal. Gallbladder and biliary ducts: There has been a cholecystectomy. Pancreas: Pancreas appears normal. Spleen: Splenic calcifications consistent with splenic granulomas. Adrenal glands: The adrenal glands appear normal. Kidneys and ureters: No hydronephrosis or urinary tract calculi. Stomach and bowel: Scattered colonic diverticula. Mild infiltrative changes around the descending colon image 3/75-76 and coronal image 1001/27. Retained stool in the colon. The stomach is normal. Appendix: No secondary signs of appendicitis. Intraperitoneal space: Unremarkable. No free air. No significant fluid collection. Vasculature: Portal vein, splenic vein, SMV are patent. The aorta is normal. Visceral arteries are patent. Lymph nodes: No free air or fluid or adenopathy. Urinary bladder: The bladder is normal. Reproductive: There has been a hysterectomy. Bones/joints: The lumbar spine demonstrates moderate degenerative changes at multiple levels. Soft tissues: Unremarkable. Other findings: No visceral organ injury. IMPRESSION: 1. No free air or fluid or adenopathy. 2. No visceral organ injury. 3. No hydronephrosis or urinary tract calculi. 4. Scattered colonic diverticula. 5. Mild infiltrative changes around the descending colon image 3/75-76 and coronal image 1001/27. Mild diverticulitis not excluded. 6. Retained stool in the colon. 7. No secondary signs of appendicitis.
--- NOTE | 2025-06-17 22:12 | CT_ITS ---
PROCEDURE INFORMATION: Exam: CT Pelvis Without Contrast, Skeleton Exam date and time: 06/18/2025 12:35 AM Age: 64 years old Clinical indication: Hip pain; Left hip; Additional info: Left hip pain TECHNIQUE: Imaging protocol: Computed tomography of the pelvis without contrast. Exam focused on the skeleton. Radiation optimization: All CT scans at this facility use at least one of these dose optimization techniques: automated exposure control; mA and/or kV adjustment per patient size (includes targeted exams where dose is matched to clinical indication); or iterative reconstruction. COMPARISON: CT ABDOMEN PELVIS W CON 05/25/2025 1:15 PM FINDINGS: Bones/joints: Unremarkable. No acute fracture. No dislocation. Soft tissues: Unremarkable. IMPRESSION: 1. No acute findings. 2. If the patient has persistent left hip pain MRI may be helpful to further delineate these findings.
--- NOTE | 2025-06-17 22:15 | HMH.EDGENADL ---
Discharge Plan Disposition Patient Disposition: Home, Self-Care Condition: Good Prescriptions Prescriptions: No Action omeprazole 20 mg capsule,delayed release(DR/EC) 20 mg PO DAILY Linzess 72 mcg capsule 72 mcg PO DAILY ipratropium-albuterol 0.5 mg-3 mg(2.5 mg base)/3 mL solution for nebulization 3 ml inhalation QID PRN (Reason: shortness of breath or wheezing) 90 Days Qty: 270 3RF promethazine 25 mg tablet 25 mg PO Q6H PRN (Reason: Nausea) oxybutynin chloride 10 mg tablet extended release 24hr 10 mg PO DAILY Qty: 90 0RF estradiol [Estrace] 0.01 % (0.1 mg/gram) cream 1 appful vaginal DAILY 30 Days Qty: 42.5 2RF Rx Instructions: Using finger technique daily x 14 days and then 3 times weekly thereafter. Trelegy Ellipta 100-62.5-25 mcg blister with device 1 inh inhalation DAILY 90 Days Qty: 90 3RF albuterol sulfate [Ventolin HFA] 90 mcg/actuation HFA aerosol inhaler 2 inh inhalation Q6H PRN (Reason: shortness of breath or wheezing) 90 Days Qty: 18 3RF spironolactone 25 mg tablet See Rx Instructions .ROUTE .COMPLEX Qty: 90 3RF Dose Instruction: TAKE 1 TABLET BY MOUTH TWICE DAILY Rx Instructions: TAKE 1 TABLET BY MOUTH TWICE DAILY mirtazapine 15 mg tablet See Rx Instructions .ROUTE .COMPLEX Qty: 30 0RF Dose Instruction: TAKE 1 TABLET BY MOUTH ONCE DAILY Rx Instructions: TAKE 1 TABLET BY MOUTH ONCE DAILY quetiapine 50 mg tablet See Rx Instructions .ROUTE .COMPLEX Qty: 30 0RF Dose Instruction: TAKE 1 TABLET BY MOUTH ONCE DAILY Rx Instructions: TAKE 1 TABLET BY MOUTH ONCE DAILY topiramate 100 mg tablet See Rx Instructions .ROUTE .COMPLEX Qty: 75 4RF Dose Instruction: TAKE 1 TABLET IN THE MORNING AND 1.5 TABLETS AT NIGHT Rx Instructions: TAKE 1 TABLET IN THE MORNING AND 1.5 TABLETS AT NIGHT Entresto 24-26 mg tablet See Rx Instructions .ROUTE .COMPLEX Qty: 90 3RF Dose Instruction: TAKE 1 TABLET BY MOUTH TWICE DAILY Rx Instructions: TAKE 1 TABLET BY MOUTH TWICE DAILY celecoxib 100 mg capsule See Rx Instructions .ROUTE .COMPLEX Qty: 60 1RF Dose Instruction: TAKE 1 CAPSULE BY MOUTH TWICE DAILY Rx Instructions: TAKE 1 CAPSULE BY MOUTH TWICE DAILY aspirin 81 mg Capsule 81 mg PO DAILY Relistor 150 mg tablet 450 mg PO DAILY Qty: 90 12RF Rx Instructions: Please take 3 tablets p.o. daily furosemide 40 mg tablet 40 mg PO BID atorvastatin 40 mg tablet 40 mg PO HS tramadol 50 mg tablet 50 mg PO DAILY carvedilol 3.125 mg tablet 3.125 mg PO DAILY famotidine 20 mg tablet 20 mg PO DAILY lorazepam 0.5 mg tablet 0.5 mg PO DAILY hydroxyzine HCl 25 mg tablet 25 mg PO DAILY gabapentin 100 mg capsule 100 mg PO DAILY duloxetine 60 mg capsule,delayed release(DR/EC) 60 mg PO DAILY cholecalciferol (vitamin D3) 50 mcg (2,000 unit) capsule 50 mcg PO DAILY ondansetron 4 mg tablet,disintegrating 4 mg PO Q6H PRN (Reason: nausea and vomiting) Qty: 10 0RF Referrals Follow up/Referrals: Manas Jenkins MD [Primary Care Provider, Medical] - See instructions Activity Restrictions/Add. Instructions Additional Instructions/Restrictions: Please follow-up with your primary care provider. Please return to the emergency department if you develop any new or worsening symptoms or become concerned for your health. Clinical Impressions Clinical Impression: Acute pain of left hip, Abdominal pain Print Language Print Language: Wolof Discharge ED Provider: Kashmir Preston General Adult HPI <Mohsen Haywood MD - Last Filed: 06/18/25 11:04> General Chief complaint: PAIN Stated complaint: left hip pain, no injury Time Seen by Provider: 06/17/25 22:03 Mode of Arrival: Wheelchair Source of Information: Patient and Spouse Description of Symptoms (Recalled from ER Triage Doc. by RN): patient got home from [facility] 3 to 4 days ago has been c/o left hip pain since. Denies any injury. History of Present Illness HPI narrative: Laura Mallory is a 64-year-old female with a history of septic shock secondary to ascending cholangitis, UTI, hypertension recently started back on her blood pressure medications who presents to the emergency department for complaints of left hip pain. Patient states that she was recently admitted to [facility] for sepsis secondary to ascending cholangitis and was discharged just a few days ago. She states that ever since her discharge, she has had pain in her left hip. She denies any fevers or chills. She states that she is still ambulating on her left hip but it hurts to do so. She also reports some lower abdominal pain. She does state that she has not been eating well but denies any vomiting, chest pain, shortness of breath. Related Data Home Medications ?Medication ?Instructions ?Recorded ?Confirmed atorvastatin 40 mg tablet 40 mg PO HS 11/22/24 06/17/25 carvedilol 3.125 mg tablet 3.125 mg PO DAILY 11/22/24 06/17/25 cholecalciferol (vitamin D3) 50 50 mcg PO DAILY 11/22/24 06/17/25 mcg (2,000 unit) capsule duloxetine 60 mg capsule,delayed 60 mg PO DAILY 11/22/24 06/17/25 release famotidine 20 mg tablet 20 mg PO DAILY 11/22/24 06/17/25 furosemide 40 mg tablet 40 mg PO BID 11/22/24 06/17/25 gabapentin 100 mg capsule 100 mg PO DAILY 11/22/24 06/17/25 hydroxyzine HCl 25 mg tablet 25 mg PO DAILY 11/22/24 06/17/25 lorazepam 0.5 mg tablet 0.5 mg PO DAILY 11/22/24 06/17/25 tramadol 50 mg tablet 50 mg PO DAILY 11/22/24 06/17/25 aspirin 81 mg capsule 81 mg PO DAILY 12/29/24 06/17/25 promethazine 25 mg tablet 25 mg PO Q6H PRN Nausea 04/04/25 06/17/25 linaclotide 72 mcg capsule 72 mcg PO DAILY 05/05/25 06/17/25 (Linzess) omeprazole 20 mg capsule,delayed 20 mg PO DAILY 05/05/25 06/17/25 release Previous Rx's ?Medication ?Instructions ?Recorded methylnaltrexone 150 mg tablet 450 mg (3 x 150 mg) PO DAILY #90 12/29/24 (Relistor) tabs albuterol sulfate 90 mcg/actuation 2 inh inhalation Q6H PRN shortness 01/19/25 aerosol inhaler (Ventolin HFA) of breath or wheezing 90 days #18 grams fluticasone fur. 100 mcg-umeclid 1 inh inhalation DAILY 90 days #90 01/19/25 62.5 mcg-vilant 25 mcg ea inhalat.powder (Trelegy Ellipta) spironolactone 25 mg tablet See Rx Instructions .Route 03/03/25 .COMPLEX #90 tabs mirtazapine 15 mg tablet See Rx Instructions .Route 03/18/25 .COMPLEX #30 tabs quetiapine 50 mg tablet See Rx Instructions .Route 03/18/25 .COMPLEX #30 tabs topiramate 100 mg tablet See Rx Instructions .Route 03/18/25 .COMPLEX #75 tabs estradiol 0.01% (0.1 mg/gram) 1 appful vaginal DAILY 30 days 03/21/25 vaginal cream (Estrace) #42.5 grams oxybutynin chloride 10 mg 10 mg PO DAILY #90 tabs 03/21/25 tablet,extended release 24 hr sacubitril 24 mg-valsartan 26 mg See Rx Instructions .Route 03/21/25 tablet (Entresto) .COMPLEX #90 tabs ondansetron 4 mg disintegrating 4 mg PO Q6H PRN nausea and 04/13/25 tablet vomiting #10 tabs celecoxib 100 mg capsule See Rx Instructions .Route 04/22/25 .COMPLEX #60 caps ipratropium 0.5 mg-albuterol 3 mg 3 ml inhalation QID PRN shortness 05/05/25 (2.5 mg base)/3 mL nebulization of breath or wheezing 90 days #270 soln mL Allergies Allergy/AdvReac Type Severity Reaction Status Date / Time sumatriptan Allergy Severe Difficulty Verified 05/05/25 13:42 Breathing fexofenadine (FEXOFENADINE) Allergy Intermediate SICK Verified 05/05/25 13:42 amoxicillin (From AUGMENTIN) Allergy Unknown SOA Verified 05/05/25 13:42 clavulanic acid (From Allergy Unknown SOA Verified 05/05/25 13:42 AUGMENTIN) naproxen (NAPROXEN) Allergy Unknown SWELLING Verified 05/05/25 13:42 [facility] <Mohsen Haywood MD - Last Filed: 06/18/25 11:04> [facility] Disclaimer: The information contained in this section may have been updated after the patient was seen, as this information can be updated by other users. Medical History Anxiety and depression Arthritis Urinary tract infection History of COVID-19 Migraine History of stroke History of gastroesophageal reflux (GERD) History of anemia Insomnia COPD mixed type Oral dyskinesia Most likely secondary to prochlorperazine already discontinued by PCP Lung nodule Dyspnea on exertion Encounter for screening for malignant neoplasm of lung History of asthma Stopped smoking with greater than 30 pack year history Edema of both lower extremities Takotsubo cardiomyopathy Mediastinal lymphadenopathy Hilar lymphadenopathy Asthma exacerbation APARNA (obstructive sleep apnea) Noncompliant with CPAP treatment. Brain TIA Asthma Hyperglycemia A1c hemoglobin pending, follow-up with PCP for results. Tremor 09/08/2024: Initial good response to topiramate but worsening of tremor since last visit. Indications, possible side effects were reviewed once again with the patient and her including but not limited to nephrolithiasis, paresthesias, word finding difficulty, neuro glaucoma). APARNA (obstructive sleep apnea) Osteoarthritis She was wheelchair-bound at last appointment and currently ambulatory with a walker Hypertensive disorder Hyperlipidemia Gastroesophageal reflux disease Surgical History H/O elbow surgery LEFT History of carpal tunnel surgery of right wrist History of carpal tunnel surgery of left wrist H/O: History of arthroplasty of left shoulder H/O: hysterectomy History of cholecystectomy Family History Other Cancer 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 Smoking Status: Never smoker second hand exposure: Yes alcohol intake: former substance use type: denies use current occupational status: disabled Travel in the last 8 weeks?: None household members: spouse housing: other marital status: current occupational exposures/hazards: No caffeine: Yes Have you lived/traveled outside [place] in past 30 days?: No Contact w/someone who lives/traveled outside [place] past 30 days?: No Exposure to someone with infectious disease in past 14 days?: No Do you have a fever (greater than 100.4 F or 38 C)?: No Have you tested positive for COVID-19?: No Exposed to someone with COVID-19 in past 14 days?: No Do you have a sore throat?: No Do you have a cough?: No Do you have any weakness?: No Do you have any diarrhea?: No Are you experiencing any unusual bleeding?: No Do you have any muscle aches/pain?: No Do you have any abdominal pain?: No Are you experiencing loss of taste or smell?: No Other Medical History Have you received the Flu Vaccine for this season: No Have you received the Pneumonia Vaccine: No <Mohsen Haywood MD - Last Filed: 06/18/25 11:04> ROS Obtained: Yes Systems reviewed as appropriate & no additional complaints except as documented Physical Exam <Mohsen Haywood MD - Last Filed: 06/18/25 11:04> General General appearance: alert and in no apparent distress Head Head exam: atraumatic Eye Eye exam: Present normal appearance ENT ENT exam: Present normal external ear exam Neck Neck exam: Present full ROM Chest Chest inspection: Present symmetric chest wall rise Respiratory Respiratory exam: Present normal lung sounds bilaterally; Absent respiratory distress Cardiovascular Cardiovascular exam: Present regular rate and normal rhythm Abdominal Exam Abdominal exam: Present soft and tenderness (Diffusely but more focally in the left lower quadrant, suprapubic and right lower quadrants. Soft and nonperitoneal); Absent guarding Extremities Exam Extremities exam: Present normal inspection Back Exam Back exam: Present normal inspection Neurological Exam Neurological exam: Present alert and oriented X3 Psychiatric Psychiatric exam: Present normal affect Skin Skin exam: Present warm and dry Other Other exam information: Laura Mallory is a 64-year-old female with a history of septic shock secondary to ascending cholangitis, UTI, UTI, hypertension recently started back on her blood pressure medications who presents to the emergency department for complaints of left hip pain. Patient states that she was recently admitted to [facility] for sepsis secondary to ascending cholangitis and was discharged on 29 May. She states that ever since her discharge, she has had pain in her left hip. She denies any fevers or chills. She states that she is still ambulating on her left hip but it hurts to do so. She also reports some lower abdominal pain. She does state that she has not been eating well but denies any vomiting, chest pain, shortness of breath. Medical Decision Making <Mohsen Haywood MD - Last Filed: 06/18/25 11:04> Medical Records Screening: Per USPSTF and CDC recommendations, given the prevalence of disease in our region, it is our hospital?s policy to screen for HIV and viral Hepatitis for all patients aged 18 and over and those with ongoing risk factors. [place] Inquiry Pt receiving controlled substance: No Vital Signs: 06/17/25 21:14 06/17/25 22:00 06/17/25 22:31 Temperature 98.2 F Temperature Source Oral Pulse Rate 74 76 Pulse Rate [Left] 85 Respiratory Rate 18 18 Blood Pressure 94/46 L 85/66 L Blood Pressure [Right Arm] 80/51 L Blood Pressure Mean Blood Pressure Mean [Right Arm] 60 Blood Pressure Source [Right Arm] Automatic Cuff Blood Pressure Position [Right Arm] Sitting 02 Sat by Pulse Oximetry 95 92 L 96 Oxygen Delivery Method Room Air Room Air 06/17/25 22:46 06/17/25 23:31 06/17/25 23:45 Temperature Temperature Source Pulse Rate 72 65 64 Pulse Rate [Left] Respiratory Rate 17 18 17 Blood Pressure 81/38 L 98/59 L 97/56 L Blood Pressure [Right Arm] Blood Pressure Mean 52 72 63 Blood Pressure Mean [Right Arm] Blood Pressure Source [Right Arm] Blood Pressure Position [Right Arm] 02 Sat by Pulse Oximetry 96 95 95 Oxygen Delivery Method 06/18/25 00:00 06/18/25 00:16 06/18/25 00:45 Temperature Temperature Source Pulse Rate 67 67 56 L Pulse Rate [Left] Respiratory Rate Blood Pressure 94/60 L 86/59 L 94/69 L Blood Pressure [Right Arm] Blood Pressure Mean Blood Pressure Mean [Right Arm] Blood Pressure Source [Right Arm] Blood Pressure Position [Right Arm] 02 Sat by Pulse Oximetry 98 93 L 98 Oxygen Delivery Method Room Air Room Air Room Air 06/18/25 01:00 06/18/25 01:15 06/18/25 01:31 Temperature Temperature Source Pulse Rate 65 62 71 Pulse Rate [Left] Respiratory Rate 18 16 16 Blood Pressure 98/76 L 93/68 L 104/60 L Blood Pressure [Right Arm] Blood Pressure Mean 81 75 77 Blood Pressure Mean [Right Arm] Blood Pressure Source [Right Arm] Blood Pressure Position [Right Arm] 02 Sat by Pulse Oximetry 95 96 95 Oxygen Delivery Method 06/18/25 01:54 Temperature 98 F Temperature Source Pulse Rate 68 Pulse Rate [Left] Respiratory Rate 18 Blood Pressure 107/74 L Blood Pressure [Right Arm] Blood Pressure Mean Blood Pressure Mean [Right Arm] Blood Pressure Source [Right Arm] Blood Pressure Position [Right Arm] 02 Sat by Pulse Oximetry Oxygen Delivery Method Room Air Lab Data Lab Results 06/17/25 22:25: WBC 14.9 H, RBC 3.66 L, Hgb 10.7 L, Hct 34.4 L, MCV 94.0, MCH 29.2, MCHC 31.1 L, RDW 17.7 H, Plt Count 338, MPV 10.8 H, Neut % (Auto) 81.6 H, Lymph % (Auto) 9.9 L, [place] % (Auto) 6.9, Eos % (Auto) 0.4, Baso % (Auto) 0.5, Neut # (Auto) 12.2 H, Lymph # (Auto) 1.5, [place] # (Auto) 1.0, Eos # (Auto) 0.1, Baso # (Auto) 0.1, ESR 64 H, VBG pH 7.30 L, VBG pCO2 50.0, VBG pO2 29.4, VBG HCO3 24.2, VBG Total CO2 25.8, VBG O2 Saturation 45.8 L, VBG Base Excess -2.5 L, VBG Lactic Acid 1.3, Sodium 133 L, Potassium 4.3, Chloride 100, Carbon Dioxide 27, Anion Gap 10.3, BUN 16, Creatinine 1.10 H, Estimated Creat Clear 46, Estimated GFR 50 L, Est GFR ( Amer) 60, Glucose 104 H, Calcium 9.0, Magnesium 1.6, Total Bilirubin 0.5, AST 31, ALT 13, Alkaline Phosphatase 144 H, C-Reactive Protein 9.6 H, Total Protein 7.4, Albumin 4.3, Globulin 3.1, Albumin/Globulin Ratio 1.4, Lipase 48 06/17/25 23:20: Urine Color Yellow, Urine Appearance Cloudy, Urine pH 6.0, Ur Specific [place] 1.020, Urine Protein Negative, Urine Glucose (UA) Negative, Urine Ketones Negative, Urine Blood Trace-i, Urine Nitrate Negative, Urine Bilirubin 1+ A, Urine Urobilinogen 0.2, Ur Leukocyte Esterase 1+ A, Urine RBC None, Urine WBC Occasional, Ur Squamous Epith Cells 20-50, Urine Bacteria 2+ 06/17/25 22:25 06/17/25 22:25 Orders (Tests/Meds): ED MEDICATIONS Discontinued Medications Generic Name Dose Route Start Last Admin Trade Name Freq PRN Reason Stop Dose Admin Acetaminophen 1,000 mg 06/17/25 22:37 06/17/25 22:38 Acetaminophen 1,000mg/100ml Vial IV 06/17/25 22:38 1,000 mg ONCE ONE Administration Lactated Ringer's 500 mls @ 999 mls/hr 06/17/25 22:41 06/17/25 22:44 Lactated Ringer's 500ml IV 06/17/25 23:11 999 mls/hr .Q31M ONE Administration Iopamidol 75 ml 06/18/25 00:37 06/18/25 00:38 Iopamidol-370 (76%);100ml Bottle IV 06/18/25 00:38 75 ml ONCE ONE Administration Morphine Sulfate 2 mg 06/17/25 22:12 06/17/25 22:35 Morphine 2mg/Ml Syringe IV 06/17/25 22:13 Not Given ONCE ONE Sodium Chloride 10 ml 06/18/25 00:37 06/18/25 00:38 Sodium Chloride 0.9% 10ml Syr (Rad Only) IV 07/18/25 00:36 10 ml NEEDED PRN Administration Maintain IV Site ORDERS Category Date Time Status CT abdomen pelvis w con Stat Cat Scan 06/17/25 22:[address] bony pelvis Stat Cat Scan 06/17/25 22:12 Completed CBC w/Auto Diff [Complete Blood Count Auto Diff] Stat Lab 06/17/25 22:25 Completed CMP [Comprehensive Metabolic Panel] Stat Lab 06/17/25 22:25 Completed CRP [C-Reactive Protein] Stat Lab 06/17/25 22:25 Completed ESR [Erythrocyte Sedimentation Rate] Stat Lab 06/17/25 22:25 Completed Lipase Stat Lab 06/17/25 22:25 Completed Magnesium Stat Lab 06/17/25 22:25 Completed UA [Urinalysis and Microscopic] Stat Lab 06/17/25 23:20 Completed Blood Culture Stat Micro 06/17/25 22:25 Results Urine Culture Stat Micro 06/17/25 23:20 Received VBG [Venous Blood Gas] Stat RT 06/17/25 22:25 Completed Medical Decision Narrative: Laura Mallory is a 64-year-old female with a history of septic shock secondary to ascending cholangitis, UTI, hypertension recently started back on her blood pressure medications who presents to the emergency department for complaints of left hip pain. Patient states that she was recently admitted to [facility] for sepsis secondary to ascending cholangitis and was discharged just a few days ago. She states that ever since her discharge, she has had pain in her left hip. She denies any fevers or chills. She states that she is still ambulating on her left hip but it hurts to do so. She also reports some lower abdominal pain. She does state that she has not been eating well but denies any vomiting, chest pain, shortness of breath. On arrival, patient was hypotensive with blood pressures in the 80s to 90s systolic. Heart rate within normal limits. Breathing comfortably on room air with appropriate oxygen saturation. Physical exam, stated above, reveals an overall well-appearing female in no distress. She has pitting edema in her bilateral lower extremities. She has tenderness over the lateral hip and pain with active and passive range of motion of the hip. No significant swelling. She also has tenderness throughout her entire abdomen, more focally in the lower abdomen but no evidence of peritonitis. Cardiopulmonary exam is unremarkable. Differential diagnosis includes, but is not limited to: Fracture, septic arthritis, intra-abdominal infection/abscess, sepsis, electrolyte derangement, acute pancreatitis, urinary tract infection, physical deconditioning, osteoarthritis arthritis, among others. The most morbid conditions were considered and workup was based on these. Workup in the emergency department included: CBC with differential, ESR, VBG with lactic acid, CMP, CRP, lipase, urinalysis, blood culture x 2, CT bony pelvis without contrast, CT abdomen pelvis with IV contrast. Patient was treated with 1000 mg of IV acetaminophen. Patient was also given 500 cc of lactated ringer for her hypotension. Patient's workup thus far shows leukocytosis with white blood cell count of 14.9 (downtrending since May 25, however no more recent data is available at this time), platelets normal at 338, ESR is elevated at this time to 64, has been somewhat elevated in the past to the 30-50 range. VBG with lactate normal at 1.3, pH mildly low at 7.3, pCO2 normal at 50, bicarbonate normal at 24.2. CMP shows mildly low sodium of 133 but grossly unremarkable nonactionable. Electrolytes otherwise within normal limits. Creatinine is 1.10 and BUN is 16 (this appears close to patient's baseline), bilirubin and liver enzymes within normal limits. Magnesium normal at 1.6. CRP mildly elevated at 9.6. Lipase normal at 48. Urinalysis with 1+ bilirubin, negative nitrate, 1+ leukocyte esterase and only occasional white blood cells. 2+ bacteria. Sample is contaminated with 20-50 squamous epithelial cells. At this time, patient's care was transferred to the oncoming physician, Dr. Preston, pending completion of her CT imaging and reassessment. Patient's blood pressure is uptrending at this time. Patient is appropriate for transfer of care. <Kashmir Preston MD - Last Filed: 06/19/25 00:58> Vital Signs: 06/17/25 21:14 06/17/25 22:00 06/17/25 22:31 Temperature 98.2 F Temperature Source Oral Pulse Rate 74 76 Pulse Rate [Left] 85 Respiratory Rate 18 18 Blood Pressure 94/46 L 85/66 L Blood Pressure [Right Arm] 80/51 L Blood Pressure Mean Blood Pressure Mean [Right Arm] 60 Blood Pressure Source [Right Arm] Automatic Cuff Blood Pressure Position [Right Arm] Sitting 02 Sat by Pulse Oximetry 95 92 L 96 Oxygen Delivery Method Room Air Room Air 06/17/25 22:46 06/17/25 23:31 06/17/25 23:45 Temperature Temperature Source Pulse Rate 72 65 64 Pulse Rate [Left] Respiratory Rate 17 18 17 Blood Pressure 81/38 L 98/59 L 97/56 L Blood Pressure [Right Arm] Blood Pressure Mean 52 72 63 Blood Pressure Mean [Right Arm] Blood Pressure Source [Right Arm] Blood Pressure Position [Right Arm] 02 Sat by Pulse Oximetry 96 95 95 Oxygen Delivery Method 06/18/25 00:00 06/18/25 00:16 06/18/25 00:45 Temperature Temperature Source Pulse Rate 67 67 56 L Pulse Rate [Left] Respiratory Rate Blood Pressure 94/60 L 86/59 L 94/69 L Blood Pressure [Right Arm] Blood Pressure Mean Blood Pressure Mean [Right Arm] Blood Pressure Source [Right Arm] Blood Pressure Position [Right Arm] 02 Sat by Pulse Oximetry 98 93 L 98 Oxygen Delivery Method Room Air Room Air Room Air 06/18/25 01:00 06/18/25 01:15 06/18/25 01:31 Temperature Temperature Source Pulse Rate 65 62 71 Pulse Rate [Left] Respiratory Rate 18 16 16 Blood Pressure 98/76 L 93/68 L 104/60 L Blood Pressure [Right Arm] Blood Pressure Mean 81 75 77 Blood Pressure Mean [Right Arm] Blood Pressure Source [Right Arm] Blood Pressure Position [Right Arm] 02 Sat by Pulse Oximetry 95 96 95 Oxygen Delivery Method 06/18/25 01:54 Temperature 98 F Temperature Source Pulse Rate 68 Pulse Rate [Left] Respiratory Rate 18 Blood Pressure 107/74 L Blood Pressure [Right Arm] Blood Pressure Mean Blood Pressure Mean [Right Arm] Blood Pressure Source [Right Arm] Blood Pressure Position [Right Arm] 02 Sat by Pulse Oximetry Oxygen Delivery Method Room Air Lab Data Lab Results 06/17/25 22:25: WBC 14.9 H, RBC 3.66 L, Hgb 10.7 L, Hct 34.4 L, MCV 94.0, MCH 29.2, MCHC 31.1 L, RDW 17.7 H, Plt Count 338, MPV 10.8 H, Neut % (Auto) 81.6 H, Lymph % (Auto) 9.9 L, [place] % (Auto) 6.9, Eos % (Auto) 0.4, Baso % (Auto) 0.5, Neut # (Auto) 12.2 H, Lymph # (Auto) 1.5, [place] # (Auto) 1.0, Eos # (Auto) 0.1, Baso # (Auto) 0.1, ESR 64 H, VBG pH 7.30 L, VBG pCO2 50.0, VBG pO2 29.4, VBG HCO3 24.2, VBG Total CO2 25.8, VBG O2 Saturation 45.8 L, VBG Base Excess -2.5 L, VBG Lactic Acid 1.3, Sodium 133 L, Potassium 4.3, Chloride 100, Carbon Dioxide 27, Anion Gap 10.3, BUN 16, Creatinine 1.10 H, Estimated Creat Clear 46, Estimated GFR 50 L, Est GFR ( Amer) 60, Glucose 104 H, Calcium 9.0, Magnesium 1.6, Total Bilirubin 0.5, AST 31, ALT 13, Alkaline Phosphatase 144 H, C-Reactive Protein 9.6 H, Total Protein 7.4, Albumin 4.3, Globulin 3.1, Albumin/Globulin Ratio 1.4, Lipase 48 06/17/25 23:20: Urine Color Yellow, Urine Appearance Cloudy, Urine pH 6.0, Ur Specific [place] 1.020, Urine Protein Negative, Urine Glucose (UA) Negative, Urine Ketones Negative, Urine Blood Trace-i, Urine Nitrate Negative, Urine Bilirubin 1+ A, Urine Urobilinogen 0.2, Ur Leukocyte Esterase 1+ A, Urine RBC None, Urine WBC Occasional, Ur Squamous Epith Cells 20-50, Urine Bacteria 2+ Orders (Tests/Meds): ED MEDICATIONS Discontinued Medications Generic Name Dose Route Start Last Admin Trade Name Freq PRN Reason Stop Dose Admin Acetaminophen 1,000 mg 06/17/25 22:37 06/17/25 22:38 Acetaminophen 1,000mg/100ml Vial IV 06/17/25 22:38 1,000 mg ONCE ONE Administration Lactated Ringer's 500 mls @ 999 mls/hr 06/17/25 22:41 06/17/25 22:44 Lactated Ringer's 500ml IV 06/17/25 23:11 999 mls/hr .Q31M ONE Administration Iopamidol 75 ml 06/18/25 00:37 06/18/25 00:38 Iopamidol-370 (76%);100ml Bottle IV 06/18/25 00:38 75 ml ONCE ONE Administration Morphine Sulfate 2 mg 06/17/25 22:12 06/17/25 22:35 Morphine 2mg/Ml Syringe IV 06/17/25 22:13 Not Given ONCE ONE Sodium Chloride 10 ml 06/18/25 00:37 06/18/25 00:38 Sodium Chloride 0.9% 10ml Syr (Rad Only) IV 07/18/25 00:36 10 ml NEEDED PRN Administration Maintain IV Site ORDERS Category Date Time Status CT abdomen pelvis w con Stat Cat Scan 06/17/25 22:[address] bony pelvis Stat Cat Scan 06/17/25 22:12 Completed CBC w/Auto Diff [Complete Blood Count Auto Diff] Stat Lab 06/17/25 22:25 Completed CMP [Comprehensive Metabolic Panel] Stat Lab 06/17/25 22:25 Completed CRP [C-Reactive Protein] Stat Lab 06/17/25 22:25 Completed ESR [Erythrocyte Sedimentation Rate] Stat Lab 06/17/25 22:25 Completed Lipase Stat Lab 06/17/25 22:25 Completed Magnesium Stat Lab 06/17/25 22:25 Completed UA [Urinalysis and Microscopic] Stat Lab 06/17/25 23:20 Completed Blood Culture Stat Micro 06/17/25 22:25 Results Urine Culture Stat Micro 06/17/25 23:20 Received VBG [Venous Blood Gas] Stat RT 06/17/25 22:25 Completed Medical Decision Narrative: Laura Mallory is a 64-year-old female with a history of septic shock secondary to ascending cholangitis, UTI, hypertension recently started back on her blood pressure medications who presents to the emergency department for complaints of left hip pain. Patient states that she was recently admitted to [facility] for sepsis secondary to ascending cholangitis and was discharged just a few days ago. She states that ever since her discharge, she has had pain in her left hip. She denies any fevers or chills. She states that she is still ambulating on her left hip but it hurts to do so. She also reports some lower abdominal pain. She does state that she has not been eating well but denies any vomiting, chest pain, shortness of breath. On arrival, patient was hypotensive with blood pressures in the 80s to 90s systolic. Heart rate within normal limits. Breathing comfortably on room air with appropriate oxygen saturation. Physical exam, stated above, reveals an overall well-appearing female in no distress. She has pitting edema in her bilateral lower extremities. She has tenderness over the lateral hip and pain with active and passive range of motion of the hip. No significant swelling. She also has tenderness throughout her entire abdomen, more focally in the lower abdomen but no evidence of peritonitis. Cardiopulmonary exam is unremarkable. Differential diagnosis includes, but is not limited to: Fracture, septic arthritis, intra-abdominal infection/abscess, sepsis, electrolyte derangement, acute pancreatitis, urinary tract infection, physical deconditioning, osteoarthritis arthritis, among others. The most morbid conditions were considered and workup was based on these. Workup in the emergency department included: CBC with differential, ESR, VBG with lactic acid, CMP, CRP, lipase, urinalysis, blood culture x 2, CT bony pelvis without contrast, CT abdomen pelvis with IV contrast. Patient was treated with 1000 mg of IV acetaminophen. Patient was also given 500 cc of lactated ringer for her hypotension. Patient's workup thus far shows leukocytosis with white blood cell count of 14.9 (downtrending since May 25, however no more recent data is available at this time), platelets normal at 338, ESR is elevated at this time to 64, has been somewhat elevated in the past to the 30-50 range. VBG with lactate normal at 1.3, pH mildly low at 7.3, pCO2 normal at 50, bicarbonate normal at 24.2. CMP shows mildly low sodium of 133 but grossly unremarkable nonactionable. Electrolytes otherwise within normal limits. Creatinine is 1.10 and BUN is 16 (this appears close to patient's baseline), bilirubin and liver enzymes within normal limits. Magnesium normal at 1.6. CRP mildly elevated at 9.6. Lipase normal at 48. Urinalysis with 1+ bilirubin, negative nitrate, 1+ leukocyte esterase and only occasional white blood cells. 2+ bacteria. Sample is contaminated with 20-50 squamous epithelial cells. At this time, patient's care was transferred to the oncoming physician, Dr. Preston, pending completion of her CT imaging and reassessment. Patient's blood pressure is uptrending at this time. Patient is appropriate for transfer of care. Kary OSBORNE: I assumed care of the patient at the time of handoff from the prior provider. On reassessment patient lorenzo hemodynamically stable. CT imaging was independently interpreted by me, no evidence of acute pelvic fracture or serious intra-abdominal pathology. I had extensive interactive discussion with patient regarding her presentation and workup. Given her pain has been slowly worsening and she suffered no acute trauma and she is still able to ambulate, my suspicion for CT occult fracture is low. Recommend she follow-up with her PCP for further assessment or return if her symptoms worsen at which time she might require admission for rehab and MRI to assess for occult fracture or other pathology. Patient was discharged in stable condition with return precautions. Critical Care <Mohsen Haywood MD - Last Filed: 06/18/25 11:04> Critical Care Time Critical Care Time: Yes Attestation: On 06/17/25, the high probability of a clinically significant, sudden or life threatening deterioration of the following system(s) required my full and direct attention, intervention and personal management. The time I documented below is in addition to time spent performing reported procedures but includes the following listed in this critical care notation. Total Time Total Critical Care Time: 35 <Kashmir Preston MD - Last Filed: 06/19/25 00:58> Critical Care Time Critical Care Time: No
[2025-06-17 22:31] VITALS: BP 85/66; PULSE 76; O2SAT 96
[2025-06-17] MEDS: ACETAMINOPHEN 1,000MG/100ML VIAL 1000 MG IV (22:38)
[2025-06-17 22:39] LABS: VBG PH 7.30 mmol/L (7.31-7.41)
[2025-06-17 22:41] LABS: Lactate Venous 1.3 mmol/L (0.4-2.0); VBG HCO3 24.2 mmol/L (23-30); VBG PCO2 50.0 mmol/L (35-51); VBG PO2 29.4 mmol/L (28-40)
[2025-06-17 22:44] LABS: Hematocrit 34.4 % (37.0-47.0); Hemoglobin 10.7 g/dL (12.2-16.2); Immature Granulocytes % 0.7 %; Mean Corpuscular HGB Conc 31.1 g/dL (31.8-35.4); Mean Corpuscular Hemoglobin 29.2 pg (27.0-31.2); Mean Corpuscular Volume 94.0 fl (81-99); Nucleated Red Blood Cells % 0.1 %; Platelet Count 338 K/mm3 (142-424); Red Blood Count 3.66 M/mm3 (4.20-5.40); Red Cell Distribution Width-SD 60.4 fL; White Blood Count 14.9 K/mm3 (4.8-10.8)
[2025-06-17] MEDS: RINGERS SOLUTION,LACTATED 500 ML 999 ML IV (22:44)
[2025-06-17 22:46] VITALS: BP 81/38; PULSE 72; RESP 17; O2SAT 96
[2025-06-17 22:56] LABS: Albumin Level 4.3 g/dl (3.5-5.0); Chloride 100 mmol/L (98-107); Potassium 4.3 mmoL/L (3.5-5.1); Sodium 133 mmol/L (136-145)
[2025-06-17 22:58] LABS: Alanine Aminotransferase 13 U/L (12-78); Aspartate Amino Transferase 31 U/L (14-36); Blood Urea Nitrogen 16 mg/dl (7-17); Creatinine Clearance Estimated 46 mL/min (50-200); Creatinine,Serum 1.10 mg/dl (0.52-1.04); Estimated Glomerular Filt Rate 50 ml/min (>60); GFR (African American) 60 ML/MIN (>60)
[2025-06-17 22:59] LABS: Albumin/Globulin Ratio 1.4 (1.1-1.8); Alkaline Phosphatase 144 U/L (38-126); Anion Gap 10.3 mEq/L (5-15); Bilirubin,Total 0.5 mg/dl (0.2-1.3); Calcium 9.0 mg/dl (8.4-10.2); Carbon Dioxide 27 mmol/L (22.0-30.0); Globulin 3.1 g/dL (1.3-3.2); Glucose 104 mg/dl (74-100); Magnesium 1.6 mg/dl (1.6-2.3); Total Protein,Serum 7.4 g/dl (6.3-8.2)
[2025-06-17 23:00] LABS: Lipase 48 U/L (23-300)
[2025-06-17 23:05] LABS: C-Reactive Protein 9.6 mg/L (0-4)
--- NOTE | 2025-06-17 23:09 | PC.NURSE ---
phlebotomy comes to this RN and reports that he was not able to obtain second set of blood cultures, at this time patient requested to not be stuck anymore. ED provider notified.
[2025-06-17 23:26] LABS: Microscopic, Urine URINE MICROSCOPIC (MICROSCOPIC)
[2025-06-17 23:31] VITALS: BP 98/59; PULSE 65; RESP 18; O2SAT 95
[2025-06-17 23:35] LABS: Color,Urine YELLOW (Yellow); Glucose,Urine (UA) Negative (Negative); Ketones,Urine Negative (Negative); Leukocyte Esterase,Urine 1+ (Negative); PH,Urine 6.0 (5.0-8.5); Protein,Urine Negative (Negative); Specific Gravity, Urine 1.020 (1.005-1.030); Urobilinogen,Urine 0.2 EU/dl (0.2)
[2025-06-17 23:41] LABS: Bilirubin,Urine 1+ (Negative)
[2025-06-17 23:45] VITALS: BP 97/56; PULSE 64; RESP 17; O2SAT 95
[2025-06-18] VITALS (7 sets, daily range): BP systolic 86–107; BP diastolic 59–76; PULSE 56–71; RESP 16–18; TEMP 36.6; O2SAT 93–99
[2025-06-18 00:06] LABS: Bacteria,Urine 2+ /lpf; Squamous Epithelial Cell,Urine 20-50 #/hpf (0-5); WBC,Urine Occasional #/hpf (0-3)
[2025-06-18] MEDS: SODIUM CHLORIDE 0.9% 10ML SYR (RAD ONLY) 10 ML IV (00:38)
[2025-06-18] MEDS: IOPAMIDOL-370 (76%);100ML BOTTLE 75 ML IV (00:38)
== END 2025-06-18 02:01 | disposition home or self-care (01) ==
PROVIDERS: Student in an Organized Health Care Education/Training Program; Emergency Provider Emergency Medicine; PCP Family Medicine
DX: R10.84 Generalized abdominal pain (principal); M25.552 Pain in left hip; I95.9 Hypotension, unspecified; E87.1 Hypo-osmolality and hyponatremia; J44.9 Chronic obstructive pulmonary disease, unspecified; E78.5 Hyperlipidemia, unspecified; I10 Essential (primary) hypertension; Z87.891 Personal history of nicotine dependence
CPT/HCPCS: 72192; 74177; 80053; 81001; 82803; 83690; 83735; 85025; 85651; 86140; 87040; 87077; 87086; 87088; 96374; 99285; J0131; J7120; Q9967

== ENCOUNTER 2025-07-06 17:21 | Inpatient (IN) | payer MEDICARE, OTHER, SELFPAY ==
--- OUTSIDE RECORDS SUMMARY | 2025-05-20 16:00 | XMS_ITS | Encounter Summary ---
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 Name Role Phone Manas Jenkins MD Primary Care Provider + Reason for Visit * Reason Comments Follow-up Hyperlipidemia Anxiety chronic low back pain Encounter Details Date Type Department Care Team (Latest Contact Info) Description 05/20/2025 4:00 PM EDT Office Visit [facility] [address] [place] [address] Manas Jenkins MD [address] [place] [address] Hypercholesterolemia (Primary Dx); Chronic right-sided low back pain with right-sided sciatica; Hyperglycemia; Moderate persistent asthma without complication; Bilateral hip joint arthritis; Chronic pain syndrome; Chronic anxiety; Chronic diastolic (congestive) heart failure; Obesity, Class III, BMI 40-49.9 (morbid obesity); Stress-induced cardiomyopathy; Polypharmacy 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 Tobacco Use Types Packs/Day Years Used Date Smoking Tobacco: Former Cigarettes 0.5 15 1 990 - 2005 Passive Smoke Exposure: Past Smokeless Tobacco: Never Alcohol Use Standard Drinks/Week Comments Not Currently 0 (1 standard drink = 0.6 oz pur e alcohol) PHQ-2 Answer Date Recorded Retired PHQ-9: Brief Depression Severity Measure Score 2 01/07/2023 PHQ-2 Answer Date Recorded Patient Health Questionnaire-2 Score 1 05/20/2025 Comments Unknown Sex and Gender Information Value Date Recorded Sex Assigned at Not on file Legal Sex Female 11:44 AM EDT Gender Identity Not on file Sexual Orientation Not on file documented as of this encounter Last Filed Vital Signs Vital Sign Reading Time Taken Comments Blood Pressure 128/80 05/20/2025 3:11 PM EDT Pulse 88 05/20/2025 3:11 PM EDT Temperature 36.8 C (98.3 F) 05/20/2025 3:11 PM EDT Respiratory Rate 24 05/20/2025 3:11 PM EDT Oxygen Saturation 94% 05/20/2025 3:11 PM EDT Inhaled Oxygen Concentration - - Weight 122 kg (268 lb 9.6 oz) 05/20/2025 3:11 PM EDT Height 165.1 cm (5' 5 ) 05/20/2025 3:11 PM EDT Body Mass Index 44.7 05/20/2025 3:11 PM EDT documented in this encounter Functional Status documented as of this encounter Progress Notes * Manas Jenkins MD - 05/20/2025 4:00 PM EDT Chief Complaint Patient presents with Follow-up Hyperlipidemia Anxiety chronic low back pain Subjective Laura Mallory is a 64 y.o. who presents for chronic care visit of multiple issues. Details of visit along with medical decision making will be listed under assessment and plan The following portions of the patient's history were reviewed and updated as appropriate: allergies, current medications, past family history, past medical history, past social history, past surgicalhistory, and problem list. Review of Systems Objective Vital Signs: BP 128/80 Pulse 88 Temp 98.3 ??F (36.8 ??C) Resp 24 Ht 165.1 cm (65 ) Wt 122 kg (268 lb 9.6 oz) SpO2 94% BMI 44.70 kg/m?? Physical Exam Vitals reviewed. Constitutional: Appearance: Normal appearance. HENT: Head: Normocephalic and atraumatic. Right Ear: Tympanic membrane and ear canal normal. Left Ear: Tympanic membrane and ear canal normal. Nose: Nose normal. Mouth/Throat: Mouth: Mucous membranes are dry. Pharynx: Oropharynx is clear. Eyes: Conjunctiva/sclera: Conjunctivae normal. Cardiovascular: Rate and Rhythm: Normal rate and regular rhythm. Heart sounds: Normal heart sounds. No murmur heard. Pulmonary: Effort: Pulmonary effort is normal. No respiratory distress. Breath sounds: Normal breath sounds. Musculoskeletal: Cervical back: Normal range of motion and neck supple. No tenderness. Lymphadenopathy: Cervical: No cervical adenopathy. Skin: General: Skin is warm and dry. Neurological: Mental Status: She is alert. Psychiatric: Mood and Affect: Mood normal. Result Review The following data was reviewed by: Manas Jenkins MD on 05/20/2025: Data reviewed : Radiologic studies CT A/P March 2025, Xray hips March 2025, Agricultural Scientist notes [facility] Pulmonology(Apr 2025, Ortho 2024, Gastroenterolgy Dec 2024, , and Recent hospitalization notes [facility] 2024 Assessment and Plan Diagnoses and all orders for this visit: 1. Hypercholesterolemia (Primary) - atorvastatin (LIPITOR) 40 MG tablet; Take 1 tablet by mouth Every Night. Dispense: 90 tablet; Refill: 0 - Lipid Panel 2. Chronic right-sided low back pain with right-sided sciatica Comments: Cont. Injections through Pain Management. REfill Oxycodone when needed. Refill gabapentin Orders: - DULoxetine (CYMBALTA) 60 MG capsule; Take 1 capsule by mouth Daily. Dispense: 30 capsule; Refill:3 3. Hyperglycemia - Hemoglobin A1c 4. Moderate persistent asthma without complication 5. Bilateral hip joint arthritis 6. Chronic pain syndrome 7. Chronic anxiety 8. Chronic diastolic (congestive) heart failure 9. Obesity, Class III, BMI 40-49.9 (morbid obesity) 10. Stress-induced cardiomyopathy 11. Polypharmacy Plan Hypercholesterolemia-controlled. Surveillance statin due. Continue atorvastatin 40 mg Chronic multijoint pain including low back, hips, knees. Patient inquired about increase in pain medication which I advised against. I have recommended follow- up with [facility] orthopedics for consideration of repeat knee joint injections and beginning hip joint injections. Hyperglycemia. Identified on outside labs. A1c will be assessed today Stress-induced cardiomyopathy with history of acute diastolic congestive heart failure. Continue Entresto and high-dose diuretics. Obesity. Impacts all aspects of care including increasing joint related pains and dyspnea that can be both associated with her history of CHF and moderate persistent asthma Moderate persistent asthma. Follow-up with [facility] cardiology Polypharmacy. Patient has several medications on her medication list which I do not prescribe and she is unsure if she is continuing to take. A copy of the after visit summary was provided to the patient and she will review her home medication list and contact the office with needed changes I spent 48 minutes caring for Laura on this date of service. This time includes time spent by me in the following activities:preparing for the visit, reviewing tests, performing a medically appropriate examination and/or evaluation , counseling and educating the patient/family/caregiver, ordering medications, tests, or procedures, and documenting information in the medical record Follow Up Return in about 4 months (around 09/19/2025) for Next scheduled follow up. Patient was given instructions and counseling regarding her condition or for health maintenance advice. Please see specific information pulled into the AVS if appropriate. documented in this encounter Plan of Treatment Not on file documented as of this encounter Procedures Procedure Name Priority Date/Time Associated Diagnosis Comments HEMOGLOBIN A1C Routine 05/20/2025 3:59 PM EDT Hyperglycemia LIPID PANEL Routine 05/20/2025 3:59 PM EDT Hypercholesterolemia documented in this encounter Results * Lipid Panel (05/20/2025 3:59 PM EDT) Total Cholesterol 152 100 - 199 mg/dL [facility] Triglycerides 138 0 - 149 mg/dL [facility] HDL Cholesterol 43 >39 mg/dL [facility] VLDL Cholesterol Kuldeep 24 5 - 40 mg/dL [facility] LDL Chol Calc (NIH) 85 0 - 99 mg/dL [facility] Blood 05/20/2025 3:59 PM EDT 05/20/2025 Narrative [facility] ([facility]) - 05/24/2025 8:11 AM EDT Performed at: 01 - [address] [id number] Member Certification Manager: Dave Escudero PhD, Phone: [phone] Patient Fasting: Y us Manas Jenkins MD LAB BLOOD ORDERABLES Fin al Result [facility] ([facility]) [address] [place] [address], [facility] [address] [place] [address], [place] [phone] * (ABNORMAL) Hemoglobin A1c (05/20/2025 3:59 PM EDT) Hemoglobin A1C 5.7(H) 4.8 - 5.6 % [facility] Comment: Prediabetes: 5.7 - 6.4 Diabetes: >6.4 Glycemic control for adults with diabetes: <7.0 Blood 05/20/2025 3:59 PM EDT 05/20/2025 Narrative [facility] (AMBULATORY) - 05/24/2025 8:11 AM EDT Performed at: 01 - [facility] [address] [place] [id number] Member Certification Manager: Dave Escudero PhD, Phone: [phone] Patient Fasting: Y Manas Jenkins MD LAB BLOOD ORDERABLES Fin al Result [facility] (AMBULATORY) [address] [place] [address], [place] [phone] [facility] [address] [place] [address], [place] [phone] documented in this encounter Visit Diagnoses Diagnosis Hypercholesterolemia- Primary Pure hypercholesterolemia Chronic right-sided low back pain with right-sided sciatica Hyperglycemia Other abnormal glucose Moderate persistent asthma without complication Bilateral hip joint arthritis Chronic pain syndrome Chronic anxiety Anxiety state, unspecified Chronic diastolic (congestive) heart failure Obesity, Class III, BMI 40-49.9 (morbid obesity) Stress-induced cardiomyopathy Takotsubo syndrome Polypharmacy Issue of repeat prescriptions documented in this encounter Additional Health Concerns Assessment Noted Time PHQ-2 Depression Total Score: 1 11/27/19 24 1:57 PM EST documented as of this encounter Care Teams 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
--- OUTSIDE RECORDS SUMMARY | 2025-05-20 16:00 | XMS_ITS | Encounter Summary ---
[facility] Address [address] [place] [address] Care Team Providers Care Small Business Banking Officer Name Role Phone Manas Jenkins MD Primary Care Provider + Reason for Visit * Reason Comments Follow-up Hyperlipidemia Anxiety chronic low back pain Encounter Details Date Type Department Care Team (Latest Contact Info) Description 05/20/2025 4:00 PM EDT Office Visit [facility] [address] [place] [address] Manas Jenkins MD [address] [place] [address] Hypercholesterolemia (Primary Dx); Chronic right-sided [...] A/P March 2025, Xray hips March 2025, Cassandra Consultant notes [facility] Pulmonology(Apr 2025, Ortho 2024, Gastroenterolgy Dec 2024, , and Recent hospitalization notes ER [facility] 2024 Assessment and Plan Diagnoses and all [...] against. I have recommended follow- up with orthopedics for consideration of repeat knee joint [...] persistent asthma Moderate persistent asthma. Follow-up with [facility] cardiology Polypharmacy. Patient has several medications [...] 8:11 AM EDT Performed at: 01 - [address] [id number] Bonbon Cream Warmer: Dave Escudero PhD, Phone: [phone] Patient Fasting: Y us Manas Jenkins MD LAB BLOOD ORDERABLES Fin al Result [facility] ([facility]) [address] [place] [address], [facility] [address] [place] [address], [place] [phone] * (ABNORMAL) Hemoglobin A1c (05/20/2025 3:59 PM EDT) Hemoglobin A1C 5.7(H) 4.8 - 5.6 % [facility] Comment: Prediabetes: 5.7 - 6.4 Diabetes: >6.4 Glycemic control for adults with diabetes: <7.0 Blood 05/20/2025 3:59 PM EDT 05/20/2025 Narrative [facility] (AMBULATORY) - 05/24/2025 8:11 AM EDT Performed at: 01 - [facility] [address] [place] [id number] Bonbon Cream Warmer: Dave Escudero PhD, Phone: [phone] Patient Fasting: Y Manas Jenkins MD LAB BLOOD ORDERABLES Fin al Result [facility] (AMBULATORY) [address] [place] [address], [place] [phone] [facility] [address] [place] [address], [place] [phone] documented in this encounter Visit Diagnoses Diagnosis [...] documented as of this encounter Care Teams Small Business Banking Officer Relationship Specialty Start Date End Date Man[place] [address] PCP - General Family Medicine 05/02/22 documented as of this encounter
--- OUTSIDE RECORDS SUMMARY | 2025-05-25 18:40 | XMS_ITS | Encounter Summary ---
Author Organization [facility] Address [address] [place] [address] Care Team Providers Care Information Technology Specialist Name Role Phone Manas Jenkins MD Primary Care Provider [phone] Source Comments This information has been disclosed to you from confidential records protectfrom disclosure by state law. You shall make no further disclosure of thisinformation without the specific, written, and informed release of theindividual to whom it pertains, or as otherwise permitted by law. A generalauthorization for the release of medical or other information is not sufficientfor the purposes of the release of HIV test results or diagnoses. [id number] Reason for Visit * Auth/Cert (Routine) Specialty Diagnoses / Procedures Referred By Contac t Referred To Contact Intensive Care Diagnoses SEPTIC SHOCK [facility] [address] [place] [address] Phone: tel: Referral ID Status Reason Start Date Expiration Date Visits Re quested Visits Authorized [id number] 1 1 Encounter Details Date Type Department Care Team (Latest Contact Info) Description 05/25/2025 6:40 PM EDT - 05/28/2025 1:38 PM EDT Hospital Encounter [facility] [address] [place] [address] Willem Shin DO [address] [place] [address] Eliud Lopez MD [address] [place] [address] Devante Kathleen MD [address] [place] [address] Mastocytosis (Primary Dx); Shock (CMS-HCC); Elevated LFTs Discharge Disposition: Home WITH Home Health Care Services 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 Tobacco Use Types Packs/Day Years Used Date Smoking Tobacco: Former Cigarettes Smokeless Tobacco: Never Tobacco Cessation:Counseling Given: Not Answered Comments:Former 2 PPD cigarette smoker, quit ~2004 Alcohol Use Standard Drinks/Week Comments No 0 (1 standard drink = 0.6 oz pur e alcohol) Utilities Answer Date Recorded In the past 12 months has th e [employer], gas, oil, or water [employer] threatened to shut off services in your home? No 05/25/2025 AUDIT-C Answer Date Recorded Q1: How often do you have a drink containing alc ohol? Patient declined 05/25/2025 Q2: How many drinks containi ng alcohol do you have on a typical day when you are drinking? Patient declined 05/25/2025 Q3: How often do you have si x or more drinks on one occasion? Patient declined 05/25/2025 Hunger Vital Sign Answer Date Recorded Within the past 12 months, y ou worried that your food would run out before you got the money to buy more. Never true 05/25/20 25 Within the past 12 months, t he food you bought just didn't last and you didn't have money to get more. Never true 05/25/2025 PRAPARE - Transportation Answer Date Re corded In the past 12 months, has l ack of transportation kept you from medical appointments or from getting medications? No 12/2024 In the past 12 months, has l ack of transportation kept you from meetings, work, or from getting things needed for daily living? No 05/25/2025 Housing Stability Vital Sign Answer Sukhi e Recorded In the last 12 months, was t here a time when you were not able to pay the mortgage or rent on time? No 05/25/2025 In the past 12 months, how m any times have you moved where you were living? 0 05/25/2025 At any time in the past 12 m [facility], were you homeless or living in a correction (including now)? No 05/25/2025 Comments No Sex and Gender Information Value Date Recorded Sex Assigned at Not on file Legal Sex Female 11:13 AM EST Gender Identity Not on file Sexual Orientation Not on file documented as of this encounter Last Filed Vital Signs Vital Sign Reading Time Taken Comments Blood Pressure 144/88 05/28/2025 12:25 PM EDT Pulse 71 05/28/2025 12:25 PM EDT Temperature 37 C (98.6 F) 05/28/2025 12:25 PM EDT Respiratory Rate 16 05/28/2025 12:2 5 PM EDT Oxygen Saturation 94% 05/28/2025 12: 25 PM EDT Inhaled Oxygen Concentration 94% 03/2025 12:25 PM EDT Weight 122.6 kg (270 lb 4.5 oz) 05/27/2025 6:00 AM EDT Height 165.1 cm (5' 5 ) 05/25/2025 8:0 0 PM EDT Body Mass Index 44.98 05/25/2025 8:00 PM EDT documented in this encounter Functional Status * Audit-C Score Answer Date of Assessment Author -1 05/25/2025 7:02 PM EDT Kirt Crawford RN * Question Answer Date of Assessment Author Q1: How often do you have a drink containing alcohol? Patient declined 05/25/2025 7:02 PM EDT Kirt Crawford R N Q2: How many drinks containing alcohol do you have on a typical day when you are drinking? Patient declined 05/25/2025 7:02 PM EDT Kirt Crawford R N Q3: How often do you have six or more drinks on one occasion? Patient declined 05/25/2025 7:02 PM EDT Kirt Crawford R N documented as of this encounter Discharge Summaries * Devante Kathleen MD - 05/28/2025 12:23 PM EDT Images from the original note were not included. [facility] Inpatient Discharge Summary Patient: Laura Mallory Age: 64 y.o. CSN: [id number] Date of Admission: 05/25/2025 Date of Discharge: 05/28/2025 Attending Physician: No att. providers found Primary Care Physician: MANAS JENKINS MD Diagnoses Present on Admission Past Medical History: Diagnosis Date Acute non-ST segment elevation myocardial infarction ([facility]) 02/26/2023 Anxiety Atherosclerosis of coronary artery without angina pectoris 02/26/2023 COPD (chronic obstructive pulmonary disease) ([facility]) Heart failure with improved ejection fraction (HFimpEF) ([facility]) Stress-induced cardiomyopathy 02/26/2023 Discharge Diagnoses Active Hospital Problems Diagnosis Date Noted Septic shock, resolved [A41.9, R65.21] 05/25/2025 Morbid obesity ([facility]) [E66.01] 05/27/2025 Pneumonia of both lower lobes due to infectious organism [J18.9] 05/27/2025 Elevated LFTs [R79.89] 05/27/2025 Simple chronic bronchitis ([facility]) [J41.0] 05/27/2025 APARNA (obstructive sleep apnea) [G47.33] 05/27/2025 Acute respiratory failure with hypoxia ([facility]) [J96.01] 05/27/2025 Acute metabolic encephalopathy [G93.41] 05/27/2025 HFimpEF [I50.22] 05/27/2025 Opioid-induced constipation [K59.03, T40.2X5A] 05/27/2025 Chronic back+knee pain with R-sided sciatica [M54.9, G89.29] 05/27/2025 Coronary artery disease involving [place] coronary artery of [place] heart without angina pectoris [I25.10] 02/26/2023 Gastroesophageal reflux disease without esophagitis [K21.9] 05/02/2022 Chronic anxiety [F41.9] 05/02/2022 Resolved Hospital Problems Diagnosis Date Noted Date Resolved Acute kidney injury ([facility]) [N17.9] 05/27/2025 05/27/2025 Operations/Procedures Performed (include dates) Surgeries: none Lines and tubes: Patient Lines/Drains/Airways Status Active LDAs None Other Procedures / Pertinent Imaging: X-ray Portable Chest Result Date: 05/25/2025 IMPRESSION: Streaky left basilar airspace disease, atelectasis versus pneumonia. Report Verified by: Silvestre Greenwood MD at 05/25/2025 7:24 PM EDT Consulting Services (include reason) Gastroenterology - abnormal LFTs, potential intraabdominal pathology Hepatology - abnormal LFTs Nutrition - diet recommendations PT/OT - evaluation and recommendations Speech pathology - swallow assessment Allergies Allergies[1] Discharge Medications Medication List TAKE these medications, which are NEW Quantity/Refills levoFLOXacin 500 MG tablet Commonly known as: LEVAQUIN Take 1 tablet (500 mg total) by mouth daily for 3 days. Start taking on: May 29, 2025 Quantity: 3 tablet Refills: 0 TAKE these medications, which you were ALREADY TAKING Quantity/Refills aspirin 81 MG EC tablet Take 1 tablet (81 mg total) by mouth daily. Refills: 0 atorvastatin 40 MG tablet Commonly known as: LIPITOR Take 1 tablet (40 mg total) by mouth daily. Refills: 0 carvediloL 3.125 MG tablet Commonly known as: COREG Take 1 tablet (3.125 mg total) by mouth 2 times a day. Refills: 0 celecoxib 100 MG capsule Commonly known as: CELEBREX Take 1 capsule (100 mg total) by mouth 2 times a day. Refills: 0 cholecalciferol (vitamin D3) 50 mcg (2,000 unit) Cap Take 1 capsule by mouth daily. Refills: 0 DULoxetine 60 MG capsule Commonly known as: CYMBALTA Take 1 capsule (60 mg total) by mouth daily. Refills: 0 famotidine 20 MG tablet Commonly known as: PEPCID Take 1 tablet (20 mg total) by mouth daily. Refills: 0 furosemide 40 MG tablet Commonly known as: LASIX Take 1 tablet (40 mg total) by mouth 2 times a day. Refills: 0 gabapentin 100 MG capsule Commonly known as: NEURONTIN Take 1 capsule (100 mg total) by mouth 3 times a day. Refills: 0 hydrOXYzine HCL 25 MG tablet Commonly known as: ATARAX Take 1 tablet (25 mg total) by mouth 2 times a day as needed for Itching or Anxiety. Refills: 0 Linzess 72 mcg Cap Generic drug: linaCLOtide Take 1 capsule (72 mcg total) by mouth every morning before breakfast. Refills: 0 LORazepam 0.5 MG tablet Commonly known as: ATIVAN Take 1 tablet (0.5 mg total) by mouth daily as needed for Anxiety. Refills: 0 omeprazole 20 MG capsule Commonly known as: PRILOSEC Take 1 capsule (20 mg total) by mouth every morning before breakfast. Refills: 0 oxybutynin 10 MG 24 hr tablet Commonly known as: DITROPAN-XL Take 1 tablet (10 mg total) by mouth daily. Refills: 0 sacubitriL-valsartan 24-26 mg Tab Commonly known as: ENTRESTO Take 1 tablet by mouth 2 times a day. Refills: 0 spironolactone 25 MG tablet Commonly known as: ALDACTONE Take 1 tablet (25 mg total) by mouth 2 times a day. Refills: 0 * topiramate 100 MG tablet Commonly known as: TOPAMAX Take 1.5 tablets (150 mg total) by mouth at bedtime. Refills: 0 * topiramate 100 MG tablet Commonly known as: TOPAMAX Take 1 tablet (100 mg total) by mouth daily. Refills: 0 traMADoL 50 mg tablet Commonly known as: ULTRAM Take 1 tablet (50 mg total) by mouth every 8 hours as needed for Pain. Refills: 0 Trelegy Ellipta 100-62.5-25 mcg Dsdv Generic drug: ntozhkzekig-dwanrebrl-muwlnbzb Inhale 1 puff into the lungs daily. Refills: 0 * This list has 2 medication(s) that are the same as other medications prescribed for you. Read thedirections carefully, and ask your doctor or other care provider to review them with you. Where to Get Your Medications These medications were sent to [facility] [address] [place] [id number] Hours: Friday - Friday: 8:00AM - 6:00PM levoFLOXacin 500 MG tablet Information about where to get these medications is not yet available Ask your nurse or doctor about these medications topiramate 100 MG tablet Discharge Exam Physical Exam Constitutional: General: She is not in acute distress. Appearance: She is obese. Cardiovascular: Rate and Rhythm: Normal rate and regular rhythm. Heart sounds: Normal heart sounds. No murmur heard. No friction rub. No gallop. Pulmonary: Effort: Pulmonary effort is normal. Breath sounds: Normal breath sounds. No wheezing, rhonchi or rales. Abdominal: General: Abdomen is flat. Palpations: Abdomen is soft. Tenderness: There is no abdominal tenderness. There is no guarding or rebound. Skin: General: Skin is warm and dry. Neurological: Mental Status: She is alert. Comments: Waxing waning mental status from AOx4 to AOx1. Psychiatric: Mood and Affect: Mood normal. Reason for Admission Laura Mallory is a 64 y.o. female with PMH of HFimpEF (LV EF julian 30-40% in 02/2023 in the setting of Takotsubo cardiomyopathy, most recently 60-65% in 05/2023), nonobstructive CAD, COPD (baseline room air), GERD, osteoarthritis, anxiety, chronic back pain, APARNA (no formal dx on noct. CPAP/BiPAP), direct admission to [facility] from [facility] with septic shock and elevated liver enzymes. Hospital Course Active Hospital Problems Diagnosis Date Noted Septic shock, resolved [A41.9, R65.21] 05/25/2025 Morbid obesity ([facility]) [E66.01] 05/27/2025 Pneumonia of both lower lobes due to infectious organism [J18.9] 05/27/2025 Elevated LFTs [R79.89] 05/27/2025 Simple chronic bronchitis ([facility]) [J41.0] 05/27/2025 APARNA (obstructive sleep apnea) [G47.33] 05/27/2025 Acute respiratory failure with hypoxia ([facility]) [J96.01] 05/27/2025 Acute metabolic encephalopathy [G93.41] 05/27/2025 HFimpEF [I50.22] 05/27/2025 Opioid-induced constipation [K59.03, T40.2X5A] 05/27/2025 Chronic back+knee pain with R-sided sciatica [M54.9, G89.29] 05/27/2025 Coronary artery disease involving [place] coronary artery of [place] heart without angina pectoris [I25.10] 02/26/2023 Gastroesophageal reflux disease without esophagitis [K21.9] 05/02/2022 Chronic anxiety [F41.9] 05/02/2022 Resolved Hospital Problems Diagnosis Date Noted Date Resolved Acute kidney injury ([facility]) [N17.9] 05/27/2025 05/27/2025 #Septic shock due to pneumonia #Leukocytosis #Bilateral community acquired pneumonia #Acute respiratory failure with hypoxia Patient presented from OSH with hypotension requiring norepi (off since 05/25). Septic shock most likely given leukocytosis and improvement since initiation of abx. CTPA at OSH with small bibasilar consolidations, bilateral tracheobronchomalacia, mediastinal LAD, trace R pleural effusion. Cholangitis also possible given elevated LFTs and abdominal pain. From OSH 05/27: bcx NGTD, ucx NGTD, RVP negative. WBC continues to downtrend (38 on admission, now to 9). Discharged with PO Levofloxacin 500mg daily for 3 days (05/29-06/01) #Acute Metabolic encephalopathy Patient with waxing and waning mental status since admission. Per , baseline is AOx4, states patient still confused but improving from admission. Due to infection and septic shock #Transaminitis Presented to OSH with AST 990, ALT 538, alk phos 437, T. Bili 3. Now continuing to downtrend, T. Bili wnl. Hepatology consulted, suspect transient ischemia as cause. RUQ US and CT A/P without ductal dilation, and with normal-appearing liver and pancreas, mildly dilated portal vein with normal hepatopetal flow. Could be acute cholangitis or ischemic hepatitis or severe sepsis based on clinical presentation. HCV Ab nonreactive, Hep B workup to suggest previous infection without current infection (core ab +, core IgM -, surface ab +, surface ag -). - Held statin during admission, can resume at discharge #COPD Baseline is RA. Required 4L NC at admission, able wean to RA with goal SpO2 88- 92%. No SOB or otherrespiratory sx. Stable chronic cough. No c/f AECOPD. RVP at OSH neg. Continue home treatments. #Acute kidney injury: Patient presented from OSH with Cr 1.5, due to sepsis, resolved with treatment #HF with improved EF #Non-obstructive CAD LV EF julian 30-40% iso Takotsubo CM (2022) with improved EF (60-65%) later in 2022; non-obstructiveCAD on remote LHC. No sx of ACS. EKG low voltage but no signs of ACS. TTE 05/26 with EF 55-60%, no concerns. Last BNP 162 but on entresto at home. Chest imaging w/o pulmonary edema. Able to resume homemedications as shock has resolved. 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 - Resume home Linzess - Miralax BID, senna QHS #Normocytic anemia Last outside Hgb 12.7 (07/2024). Ferritin elevated (321) at that time; serum iron and TIBC wnl. Hasrecent h/o rectal bleeding but currently no signs to suggest acute blood loss. Hb stable during admission ~9-10. Iron studies with mildly low iron, low % iron sat, normal TIBC and ferritin. Suggestedfollow-up with PCP. #Anxiety OARRS reviewed. Lorazepam 0.5 mg #60 filled 01/18/2025. Takes infrequently PRN. Patient did not receive lorazepam during admission. #Headache Patient reporting nighttime headaches, pt believes related to not drinking caffeine. Unable to localize to specific part of head. Reports having headaches in the past that have been difficult to treat with NSAIDs. Had bad reaction to sumatriptan. Suggested follow-up with PCP. #APARNA Recommend outpatient sleep study #Morbid obesity: outpt management Condition on Discharge 1. Functional Status: mildly impaired Describe limitations, if any: decreased activity tolerance, balance, and ADL status. PT/OT recommending home PT and home OT 2. Mental Status: mildly impaired cognition Describe limitations, if any: waxing and waning delirium, will require assistance with ADLs 3. Dietary Restrictions / Tube Feeding / TPN Diet/Nutrition Orders Diet Regular(7) Thin(0) whole meds w/ water Frequency: Effective Now Number of Occurrences: Until Specified Order Comments: whole meds w/ water Order Questions: Additional restrictions: Thin(0) Suicide/Behavior Risk Modification? No As listed above 4. Discharge specific orders: None required 5. Core measures followed: (if this is a core measure patient) Discharge Weight: (!) 270 lb 4.5 oz (122.6 kg) Disposition Home with Home Health Follow-Up Appointments No future appointments. [facility] [address] [place] [id number] Medical Decision Making: Discharge >30 minutes, [id number]: Total time personally spent today, including eeme-pg-huaf with patient and/or caregiver(s), as well as cgi-waxt-or-face time spent in care coordination, consultation,reviewing records, and documentation was 40 minutes. Signed: DEVANTE KATHLEEN MD 05/28/2025, 1:59 PM [1] Allergies Allergen Reactions Aleve [Naproxen Sodium] Cristina [Fexofenadine] * Ant Dominguez RN - 05/28/2025 11:26 AM EDT [facility] Care Management Discharge Summary Patient name: Laura Mallory Patient : 1960 Age: 64 y.o. Gender: female Patient emergency contact: Extended Emergency Contact Information Primary Emergency Contact: ShawneeAdal [address]: [address] [place] [address] Relation: Spouse Attending provider: Devante Kathleen MD Primary care physician: MANAS JENKINS MD The MD has indicated that the patient is ready for discharge. Laura Mallory was referred and acceptedat at [facility] [phone] . The patient will be transported by family at Transfer Mode/Level of Care: Family DC Summary and HHC have been faxed to facility. The plan has been reviewed: Patient/Family Informed of Discharge Plan: Yes Plan Reviewed With Patient, Family, or Significant Other: Yes Patient and or family are aware and in agreement with the discharge plan: Yes Plan reviewed with and other members of the health care team: Yes Care Plan Completed: Yes No further CM/SW needs. This plan has been reviewed with the multi-disciplinary team. Treatment Preferences Treatment Preferences: Other (provide comment) (n/a) Post-Discharge Goals Patient's Post-Discharge goals: medical stability and management Post Acute Care Provider Information: Community Services at Discharge Community Services at Home post discharge: Home Health [facility] Name/Phone # post discharge: [facility] [phone] Home Health Services Types at Discharge: PT/OT/POSITION CLASSIFIER Ant Dominguez RN [phone] documented in this encounter Discharge Instructions * Discharge Instructions* Lan Jacobs - 05/28/2025 12:23 PM EDT Thank you for choosing [facility]! You were treated for septic shock. Please carefully review the discharge instructions and medication changes below: START these medications: 1. Levofloxacin 500 mg ONCE per day until 06/01. Space meals at least 1 hour before and 2 hours afterdose If you feel like you are getting sick again or your symptoms start to worsen, notify your PCP. Your scheduled follow-up appointments are listed below. For any follow-up visits that have not beenscheduled yet, when our hospice care consultant is able to schedule them (usually within the next week), you will receive a call with those confirmed details. No future appointments. Please also follow-up with your PCP (your regular doctor) within 1 to 2 weeks. It was a pleasure taking care of you. Please call your PCP with any questions. documented in this encounter Medications at Time of Discharge aspirin 81 MG EC tablet Take 1 tablet (81 mg total) by mouth daily. atorvastatin (LIPITOR) 40 MG tablet Take 1 tablet (40 mg total) by mouth daily. carvediloL (COREG) 3.125 MG tablet Take 1 tablet (3.125 mg total) by mouth 2 times a day. celecoxib (CELEBREX) 100 MG capsule Take 1 capsule (100 mg total) by mouth 2 times a day. 04/22/2025 cholecalciferol, vitamin D3, 50 mcg (2,000 unit) Cap Take 1 capsule by mouth daily. 03/04/2025 DULoxetine (CYMBALTA) 60 MG capsule Take 1 capsule (60 mg total) by mouth daily. famotidine (PEPCID) 20 MG tablet Take 1 tablet (20 mg total) by mouth daily. 12/27/2023 furosemide (LASIX) 40 MG tablet Take 1 tablet (40 mg total) by mouth 2 times a day. gabapentin (NEURONTIN) 100 MG capsule Take 1 capsule (100 mg total) by mouth 3 times a day. hydrOXYzine HCL (ATARAX) 25 MG tablet Take 1 tablet (25 mg total) by mouth 2 times a day as needed for Itching or Anxiety. 04/20/2025 LINZESS 72 mcg Cap Take 1 capsule (72 mcg total) by mouth every morning before breakfast. 04/29/2025 LORazepam (ATIVAN) 0.5 MG tablet Take 1 tablet (0.5 mg total) by mouth daily as needed for Anxiety. omeprazole (PRILOSEC) 20 MG capsule Take 1 capsule (20 mg total) by mouth every morning before breakfast. oxybutynin (DITROPAN-XL) 10 MG 24 hr tablet Take 1 tablet (10 mg total) by mouth daily. sacubitriL-valsar jackson (ENTRESTO) 24-26 mg Tab Take 1 tablet by mouth 2 times a day. spironolactone (ALDACTONE) 25 MG tablet Take 1 tablet (25 mg total) by mouth 2 times a day. topiramate (TOPAMAX) 100 MG tablet Take 1.5 tablets (150 mg total) by mouth at bedtime. topiramate (TOPAMAX) 100 MG tablet Take 1 tablet (100 mg total) by mouth daily. 05/28/2025 traMADoL (ULTRAM) 50 mg tablet Take 1 tablet (50 mg total) by mouth every 8 hours as needed for Pain. 05/05/2025 TRELEGY ELLIPTA 100-62.5-25 mcg DsDv Inhale 1 puff into the lungs daily. 10/27/2023 levoFLOXacin (LEVAQUIN) 500 MG tablet Take 1 tablet (500 mg total) by mouth daily for 3 days. 3 tablet 05/28/2025 1:26 PM EDT 05/29/2025 06/01/2025 documented as of this encounter Progress Notes * Willem Shin, - 05/27/2025 10:53 AM EDT MICU ATTENDING DAILY PROGRESS NOTE I independently saw and examined this patient on 05/27/2025. The x-rays and labs were reviewed. The case was discussed in detail during multidisciplinary rounds, the events of the past 24 hours reviewed, and a plan for medical care arranged. Plan for Today D#3/5 Abx ==> Zosyn Add Seroquel 25 mg QHS VBG Stable transfer out of MICU This is a 64 yo female who presented in transfer from an OSH on 05/25/2025 secondary to Septic Shock and Abnormal LFT's. She presented to the OSH due to feeling weak, light headed and experiencing falls at home. She has experienced recent vomiting but no hematemesis or hematochezia and no recent fevers/sweats. At the OSH, she was given 30 ml/kg of IV fluids and then placed on Norepi to support BP and given empiric Abx. 05/25/2025 - Admitted to on Norepi. Started empiric Zosyn 05/27/2025 - transferred out of MICU BP 118/69 Pulse 71 Temp 98.8 ??F (37.1 ??C) Resp 15 Ht 5' 5 (1.651 m) Wt (!) 270 lb 4.5 oz (122.6 kg) SpO2 93% BMI 44.98 kg/m?? HEENT - PERRL, conjugate gaze. Neck - No palpable adenopathy CV - RRR Chest/Lungs - Bilateral symmetrical respiratory excursions noted. RA O2 Abd - RUQ tenderness improved - relatively asymptomatic at this time - palafox cath in place Ext - no deformity or edema. Neuro - Awake, alert. Confused Labs/Xrays reviewed. Assessment and Plan --Undifferentiated Shock with concerns for distributive/septic shock - clinically improved and is now off pressors. Abnormal LFT's and RUQ tenderness suggest possible cholangitis vs. Pancreatits Blood cx's - NGTD D#3/5 Abx ==> Zosyn --Hx of Asthma/COPD Mometasone 220 1 puff daily Anoro Ellipta 1 puff daily --Hx of Takotsubo Cardiomyopathy (2022) with recovered EF ASA --Acute Kidney Injury with recovering UO/creat Follow UO/Creat Adjust meds to reduced GFR --Abnormal LFT's with normal Amylase/Lipase. Improving Appreciate Hepatogy input Hep A/B/C screening labs with evidence of immunization of Hep B - Hep A/C neg --Leukocytosis in the present setting is felt most consistent with reaction to sepsis Follow CBC's --Normocytic Anemia without evidence of acute blood loss --Affective disorder/Chronic Back Pain Topiramate 250 mg daily Holding Gabapentin Duloxetine 60 mg daily Holding Celecoxib 100 mg BID Add Seroquel 25 mg QHS ICU Checklist DVT/Anticoagulation: {SQ UFH GI Ulcer Prophylaxis: H2 Filomena - preferred Nutrition: PO LDA: Patient Lines/Drains/Airways Status Active LDAs None Invasive Lines: None Palafox Cath: Remove Bowel Integrity: PEG/Laxatives ordered Rectal Tube: None Code Status: Full Code Next of kin / POA update: Patient/NOK/POA updated at bedside I spent a total of 30 minutes of critical care time caring for this patient with Septic shock, abnormal LFT's , including direct patient contact, management of life support systems review of data (i.e.: imaging and lab), discussion with team members, and this time excludes time spent on procedures This note was completely edited, written and reviewed by me and consists of information cut and pasted from the my most recent visit, my smart phrases and other Epic tools. I have personally reviewedall aspects of this note to at least include reviewing this patient's chart and problem list, updating the history, physical exam, lab and procedure results, and assessment and plan as detailed aboveand below. As such this visit note reflects my current evaluation and management for this patient. Willem Shin DO, DO 10:45 AM, 05/27/2025 * Estrada Nelson DO - 05/27/2025 8:13 AM EDT Department of Internal Medicine MICU Daily Progress Note Patient: Laura Mallory Room: [place] [address] Code Status: Full Code Background / Hospital Course Laura Mallory is a 64 y.o. female with a PMH significant for HFimpEF (LV EF julian 30-40% in 02/2023 in the setting of Takotsubo cardiomyopathy, most recently 60- 65% in 05/2023), nonobstructive CAD, COPD (baseline room air), GERD, hx cholecystectomy, osteoarthritis, anxiety, chronic back pain, chart diagnosis of APARNA with no home nocturnal CPAP/BiPAP who presented to the hospital on 05/25/2025 as adirect admission from [facility] with shock and elevated liver enzymes. Interval History / Subjective Significant events/labs/imaging over the past 24 hours: - NAEON, Nontachy, BP 100-130/50-70, afebrile, decreased to 1L NC - Continues to remain confused - HBV core total ab +, HBV IgM negative, HBSAG negative, HCV ab negative, HAV IgM neg - Na 136, K 4.4, BUN 16, Cr 0.91 - AlkP 295, AST 171, ALT 239, Tb 0.9 - WBC 21.8k, Hgb 9.8, PT 247 - I 1090 / O 1058 Brief Daily Plan: - monitor mental status/hemodynamics, follow up OSH cultures - space out to daily RFP/hepatic panel - viral hepatitis w positive HBV total core, appears no active infection - GI/hepatology believe to be more likely related to ischemia - wean pain meds as able - cont to wean O2 as able (on 1L NC) - seroquel 25 QHS - VBG to r/u hypercarbia - void trial - stable to transfer to floor Assessment & Plan Laura Mallory is a 64 y.o. female with Shock (CMS-HCC). Medical problems being addressed in this encounter include the following: Neurology, Pain, Sedation: #Encephalopathy, metabolic Patient more confused this morning, unable to recall prior events with accuracy. Spoke with , also notes her to be confused at this time however is improved from how she was prior to admission. Likely iso infection/metabolic derangements, although source of infection unclear at this time. - baseline is oriented x4 per - delirium precautions as able - VBG - start nightly seroquel 25mg - CTM #Headache Says started overnight. Unable to localize to specific part of head, not repeated to position, no visual changes, no focal deficits on exam. Appears moderate in intensity, has some improvement in pain meds. Reports having headaches in the past that have been difficult to treat with NSAIDs. Had bad r eaction to sumatriptan. - trial migraine cocktail (home atarax in place of benadryl) - pain as below # Chronic back with right-sided sciatica # Chronic knee pain 2/2 OA # Acute abdominal pain OARRS reviewed. Tramadol 50 mg #90 filled 05/08/2025. Gabapentin 100 mg #90 filled 04/08/2025. Patient's abdominal pain appears to have improved, does not have any TTP on exam today. - APAP 650 mg q6h PRN, max daily dose 3 grams given elevated LFTS - hydromorphone 0.3 mg IV q4h PRN for severe pain, will wean as able - Continue home tramadol 50 mg q8h PRN for moderate pain - Holding gabapentin; doesn't appear to have active Rx as outpatient - Continue duloxetine 60 mg daily - Holding home celecoxib 100 mg BID given FER # Chronic tremor No acute issues. Continue home topiramate 250 mg daily. Pulmonary: # AHRF - improving # Bibasilar consolidations with mediastinal lymphadenopathy # Trace right pleural effusion # COPD Baseline room air. On 2-3 LPM on MICU admission but SpO2 high 90s%. Stable chronic cough. No changes in sputum amount or character. No shortness of breath or other respiratory symptoms. Based on this, no c/f AECOPD. Bibasilar atelectasis with mediastinal LAD and considerable leukocytosis c/f PNA. - Wean supplemental O2, goal SpO2 88-92% - Sputum culture, full outside RVP negative - MRSA nares neg (+staph aureus) - on zosyn (abx started 05/25) - Continue therapeutic interchange for home Trelegy - Start albuterol nebs PRN Cardiovascular: # Shock - resolved DDx: septic (favored given leukocytosis, intraabdominal vs pulmonary source) vs cardiogenic (troponin mildly elevated, NT pro-BNP elevated, extremities cool, portal vein dilation may indicate congestion; EKG low voltage on admission w/o ST-T wave changes c/f ischemia). Obstructive less likely; no PE or pericardial effusion on outside CTPA. Arrived on norepi with nonfunctional A-line; cuff MAP still ~65 on norepi @ 5. Lactate on admission wnl. Norepi stopped the evening of admission. Possible transient translocation that has since cleared. - MAP goal > 65 - Formal TTE, read pending - Infectious w/u and mgmt as below # Heart failure with improved ejection fraction # H/o Takotsubo cardiomyopathy # Non-obstructive coronary artery disease LV EF julian 30-40% iso Takotsubo CM (2022) with improved EF (60-65%) later in 2022; non-obstructiveCAD on remote [facility]. No sx of ACS. EKG low voltage but no signs of ACS. - Last BNP: 162 on admission. On Entresto at home so will get NT pro-BNP with next labs, but this was also elevated to 488 (uln 125) at outside hospital. - Volume status: peripherally volume up, chest imaging w/o pulmonary edema - Preload: hold home furosemide 40 mg BID iso shock - Pump: no inotropic support needed at this time - GDMT: > DEENA/ARB/ARNI: hold home Entresto 24-46 mg BID iso shock > Beta filomena: hold home carvedilol 3.125 mg BID iso shock > MRA: hold home spironolactone 25 mg BID iso shock > SGLT2-i: not prescribed as an outpatient - ASCVD: continue bASA, holding home high-intensity statin iso elevated liver enzymes - Strict I/O, daily weights (standing if able) - Formal TTE pending Gastrointestinal: Nutrition: regular diet (crackers tonight) then NPO @ midnight GI prophylaxis: home PPI, H2 filomena Last BM: prior to admission Bowel regimen: MiraLAX daily, senna-S PRN # Elevated liver enzymes, mixed cholestatic and hepatocellular (R factor 2.5) - improving # Direct hyperbilirubinemia - resolved Despite labs and chills to support cholangitis, unable to make this dx given no ductal dilation on RUQ US and CT A/P. Surgically absent gallbladder. Normal- appearing liver and pancreas. Mildly dilated portal vein with normal hepatopetal flow. No new meds to raise c/f DILI. LFTs are already down-trending from outside hospital. Ddx hypoperfusion injury, viral infection - GI consult - no need for additional imaging / low concern for stone at this time - Hepatology - follow up additional hepatitis serologies - likely ischemia - Holding statin - APAP level, ammonia wnl - Amylase and lipase wnl # Opiate-induced constipation Last BM STOVE FITTER. - Hold home Linzess - Start MiraLAX daily, senna-S 1 tab QHS PRN for now but may need to up-titrate # Hematochezia # Recently-diagnosed hemorrhoids and anal fissure Intermittent BRBPR x 1 month. None on day of admission. Monitor. # GERD No acute issues. Continue interchange for home PPI and H2 filomena. # Vitamins No acute issues. Continue home vitamin D. Renal (Electrolytes, Acid/Base): # Acute kidney injury - resolved Cr down-trending from OSH (1.5). Likely hypoperfusion injury. S/p 1 liter Normosol at [facility] + 1.5 liters crystalloid at OSH - Strict I/O, daily weights (standing if able) - DC palafox Genitourinary: - No acute issues. Infectious Disease: Antimicrobials: - Pip-tazo (05/25 - ) - Vancomycin (05/25 at 12:30 PM) - Metronidazole (05/25) - Cefepime (05/25) Infectious work-up: - BCx (05/25) 2 of 2 NGTD - UCx (05/25) - Sputum Cx - MRSA nares - Outside full RVP (05/25) negative - Outside BCx was collected 05/25 # Leukocytosis with shock and c/f sepsis - improving Infectious source likely intraabdominal (abnormal LFTs, RUQ pain) vs pulmonary (bibasilar consolidations and small R pleural effusion, mediastinal LAD). - WBC 38k on admission, downtrending. - Continue pip-tazo - Follow cultures Endocrine: # Elevated A1c / pre-diabetes Last A1c 5.7%. No home antihyperglycemics. - FSBG AC and HS - Holding insulin for now - Hypoglycemia protocol Hematology/Oncology: # Normocytic anemia Last outside Hgb 12.7 (07/2024). Ferritin elevated (321) at that time; serum iron and TIBC wnl. Hasrecent h/o rectal bleeding but currently no signs to suggest acute blood loss. - low iron, %iron sat, can start iron replacement after infection clears Rheumatology: - No acute issues. Musculoskeletal: - No acute issues. Psychiatry: # Anxiety OARRS reviewed. Lorazepam 0.5 mg #60 filled 01/18/2025. Takes infrequently PRN. - Holding home lorazepam - hydroxyzine (10 mg BID PRN for anxiety; takes 25 mg BID PRN at home) F/E/N: - Replete electrolytes PRN. - Nutrition: NPO - POSITION CLASSIFIER eval: consult: not indicated at this time. Diet/Nutrition Orders Diet Regular(7) Thin(0) whole meds w/ water Frequency: Effective Now Number of Occurrences: Until Specified Order Comments: whole meds w/ water Order Questions: Additional restrictions: Thin(0) Suicide/Behavior Risk Modification? No Family discussion: ongoing. Disposition: remain in MICU. DVT/Anticoagulation: {SQ UFH GI Ulcer Prophylaxis: H2 Filomena - preferred Nutrition: PO LDA: Patient Lines/Drains/Airways Status Active LDAs None Invasive Lines: Continue current access Palafox Cath: Remove Bowel Integrity: PEG/Laxatives ordered Rectal Tube: None Code Status: Full Code Next of kin / POA update: Patient/NOK/POA updated at bedside Vital Signs & Physical Exam Temp: [98.4 ??F (36.9 ??C)-99.1 ??F (37.3 ??C)] 98.8 ??F (37.1 ??C) Heart Rate: [67-84] 68 Resp: [12-24] 18 BP: (87-134)/(61-110) 132/82 Constitutional: Wakes to voice, no acute distress, not toxic-appearing, HENT: Normocephalic, atraumatic, dry and tacky oral mucosa Eyes: EOM grossly intact, normal conjunctiva, anicteric sclerae Cardiovascular: RRR, auscultation limited by body habitus but no murmurs appreciated, extremities cool, cap refill > 3 seconds Respiratory: No increased work of breathing on 2 LPM; no overt wheezes, rales, or rhonchi but exam limited by body habitus; air movement heard throughout Abdomen: Soft, non-distended, tender to deep palpation in RUQ, no rebound or guarding MSK: Trace to 1+ symmetric pitting BLE edema to mid-salas Skin: Visible skin is warm, dry, intact. No visible rashes or lesions. Neurological: Alert, slow to respond to questions, has some perseverance, L thigh weakness/numbnessthat is chronic from prior stroke, no new focal deficit, has some twitching on R arm Intake/Output Summary (Last 24 hours) at 05/27/2025 1335 Last data filed at 05/27/2025 1310 Gross per 24 hour Intake 1098.78 ml Output 1093 ml Net 5.78 ml Admit Wt: Weight: (!) 267 lb 6.7 oz (121.3 kg) Recent Results All laboratory and imaging data reviewed. Relevant results noted as below: - HBV core total ab +, HBV IgM negative, HBSAG negative, HCV ab negative, HAV IgM neg - Na 136, K 4.4, BUN 16, Cr 0.91 - AlkP 295, AST 171, ALT 239, Tb 0.9 - WBC 21.8k, Hgb 9.8, PT 247 - I 1090 / O 1058 Imaging: TTE Study Conclusions - Left ventricle: The cavity size is normal. Wall thickness is normal. Systolic function is normal. The estimated ejection fraction is 55-60%. Although no diagnostic regional wall motion abnormality is identified, this possibility cannot be completely excluded on the basis of this study. Left ventricular diastolic function parameters are normal. - Right ventricle: Systolic function is normal by TAPSE. TAPSE: 1.9cm.Tricuspid annular systolic velocity: 14.5cm/s. - Pulmonary arteries: Systolic pressure could not be accurately estimated. ESTRADA NELSON DO Internal Medicine Resident, PGY-2 05/27/2025 1:35 PM Cosigned by Willem Shin DO at 05/27/2025 5:13 PM EDT Associated attestation - Willem Shin DO - 05/27/2025 5:13 PM EDT I saw and evaluated the patient, and discussed with the resident. I concur with the residents documentation of Laura Mallory. Please see my note for additions/addendums. Willem Shin DO 5:13 PM, 05/27/2025 * Glo Boone OT - 05/26/2025 3:54 PM EDT Occupational Therapy Initial Assessment Name: Laura Mallory : 1960 Attending Physician: Eliud Lopez MD Admission Diagnosis: SEPTIC SHOCK Date: 05/26/2025 Room: [place] [address] Reviewed Pertinent hospital course: Yes Hospital Course PT/OT: Pt is a 64 y/o F txfr from OSH with shock and elevated liver enzymes. Initial presentation with weakness, abdominal pain, CTPA: b/l atelectasis vs consolidation, CTAP: portal vein mildly dilated but WNL flows; GI c/s: Low suspicion for pancreatitis and cholangitis, LFT elevation like r/t severe sepsis, rec hepatology c/s, acute hepatitis panel pending Relevant PMH : HFimpEF (LV EF in 02/2023 in the setting of Takotsubo cardiomyopathy, most recently 60-65% in 05/2023), cholecystectomy, nonobstructive CAD, COPD (baseline room air), GERD, osteoarthritis, anxiety, chronic back pain, chronic back/knee pain Precautions: MAP goal > 65 Activity Level: Activity as tolerated Assist: Co-evaluation performed Recommendation Recommendation: Home OT Equipment Recommendations: Patient already has needed DME Assessment Assessment: Decreased activity tolerance, Decreased Balance, Decreased ADL status Prognosis for OT goals: Good Pt supine in bed upon therapist's arrival. Laura was agreeable to occupational therapy assessment and tolerated well. Pt primarily limited by decreased activity tolerance and impaired ADL participation. Patient will benefit from continued acute inpatient occupational therapy in order to promote return to prior level of function and maximize functional independence and safety. Continued occupational therapy in the home health setting at discharge is recommended. Outcome Measures AM-PAC 6 Clicks Daily Activity Inpatient Short Form: OT 6 Clicks Score: 20 Functional Status Score ICU (FSS-ICU): Functional Status Score - ICU: 21 Home Living/Prior Function Patient able to provide accurate information at this time: Yes Lives With: Spouse (DIL, grandson) Assistance available: 24 hour assistance Type of Home: Mobile home Home Entry: More than 1 step to enter, with railing Stairs to enter: 5 Home Layout: One level Bathroom Shower/Tub: Walk-in shower Bathroom Equipment: Shower chair Home Equipment: Wheelchair-manual, Single-point cane, Rollator Prior Function Functional Mobility: Modified Independent, with assistive device Uses Assistive Device: Single-point cane Receives Help From: None needed prior to admission ADL Assistance: Independent IADL Assistance: patient does not complete Leisure: Hobbies-yes (Comment) Leisure Activities: fishing Currently recieving therapy services: No Comments: endorses baseline L weakness r/t Hx CVA Pain Pain Score: ( a little bit ) Pain Location: Back Pain Descriptors: Sore Pain Intervention(s): Repositioned;Ambulation/increased activity Therapist reported pain to: RN monitoring Supplemental Oxygen Supplemental Oxygen Supplemental Oxygen: Nasal Cannula/Trach Collar Vitals Vitals Therapy Vitals : vitals listed below Vitals Pre-Therapy HR( BPM): 73 SpO2 (%): 98 BP (mmHg): 106/72 (84) Vitals During Therapy Comments on Vitals: 2.5L O2 via NC Vitals Post-Therapy HR( BPM): 77 SpO2 (%): 94 BP (mmHg): 86/53 (62) Cognition Overall Cognitive Status: Impaired Cognitive Assessment: Arousal/ Alertness;Orientation Level;Behavior;Following Commands;Safety Judgment;Insight Arousal/Alertness: Alert Orientation Level: Oriented to person;Oriented to place;Oriented to time;with choices;with increased time Behavior: Cooperative;Confused Following Commands: Follows multistep commands;Requires repetition of instruction Safety Judgment: Decreased awareness of safety precautions;Impaired judgment Insight: Demonstrated decreased insight into limitations and abilities to complete ADLs safely [place] Agitation Sedation Scale: Alert and calm Patient is on continuous IV sedation: no Patient open eyes to auditory stimuli: Yes Vision Hearing: No hearing deficits noted Baseline Vision: No visual deficits Overall Vision/ Perception: Within Functional Limits Right Upper Extremity Right UE ROM: Grossly WFL as observed during functional activities Right UE Strength: Grossly WFL (at least 3+/5) as observed during functional activities Right UE Muscle Tone: Normal Right Hand Function: Grossly WFL as observed during functional activity Left Upper Extremity Left UE ROM: Grossly WFL as observed during functional activities Left UE Strength: Grossly WFL (at least 3+/5) as observed during functional activities Left UE Muscle Tone: Normal Left UE Hand Function: Grossly WFL as observed during functional activites Left UE Additional Comment: intermittent tremor in L hand; pt reports residual stroke deficits but that this is new Neuromuscular Overall Sensation: Patient denies any numbness/ tingling in BUE's/ BLEs Functional Mobility Bed Mobility Supine to Sit: Contact guard assistance Transfers Sit to Stand: Contact guard assistance Bed to Chair: stand step;Minimal assistance Functional Mobility: Contact guard assistance;with assistive device (household distance) Functional Mobility Assistive Device: Rolling walker Balance Sitting - Static: Supervision Sitting-Dynamic: Stand by assistance Standing-Static: Contact Guard Assistance;With Assistive Device Standing-Static Assistive Device: Rolling walker Standing-Dynamic: Contact Guard Assistance;With Assistive Device Standing-Dynamic Assistive Device: Rolling walker Gait belt used: Yes ADL Lower Body Dressing: Supervision Lower Body Dressing Deficit: Don/doff R sock;Don/doff L sock;Set-up;Increased time to complete Location Assessed LE Dressing: Seated in bed Position after Treatment/Safety Handoff Position after therapy session: Recliner Details: RN notified;Call light/ needs within reach;visitor present Alarms: Chair Alarms Status: Activated and unable to be interfaced with call system Plan Plan Treatment Interventions: ADL retraining, Activity Tolerance training, Patient/Family training, Functional transfer training, Therapeutic Activity OT Frequency: minimum 2x/week The plan of care and recommendations assesses the patient's and/or caregiver's readiness, willingness, and ability to provide or support functional mobility and ADL tasks as needed upon discharge. Goals Goals to be met in: 1 week Patient stated goal: to go home Patient will complete supine to sit in prep for ADLs: Stand-by assistance Patient will complete functional chair transfer: Contact Guard assistance Patient will complete toilet transfer: Will tolerate assessment Patient will complete grooming task: Will tolerate assessment Patient will complete lower body dressing: Independent Pt Will be alert and oriented: x4 Type Proof Reproducer Goal : Pt will tolerate a bathing assessment. termite control service representative goal to be met in: 2 weeks Collaborated with: Patient Patient/Family Education Educated patient and patient's family on the role of occupational therapy, OT goals, OT plan of care, discharge recommendation, ADL training, and the importance of safety and fall prevention strategies including need for supervision/ assistance with OOB activity and use of call light. patient and pa tient's family verbalized understanding. OT Time Start Time: 1329 Stop Time: 1359 Time Calculation (min): 30 min OT Charges $OT Evaluation Mod Complex 45 Min: 1 Procedure Problem List Problem List[1] Past Medical History Past Medical History: Diagnosis Date Acute non-ST segment elevation myocardial infarction ([facility]) 02/26/2023 Anxiety Atherosclerosis of coronary artery without angina pectoris 02/26/2023 COPD (chronic obstructive pulmonary disease) ([facility]) Heart failure with improved ejection fraction (HFimpEF) ([facility]) Stress-induced cardiomyopathy 02/26/2023 Past Surgical History Past Surgical History: Procedure Laterality Date SECTION CHOLECYSTECTOMY HYSTERECTOMY [1] Patient Active Problem List Diagnosis Mastocytosis Shock Chronic anxiety Chronic diastolic (congestive) heart failure ([facility]) Gastroesophageal reflux disease without esophagitis * Juliana Andrea, PT - 05/26/2025 3:52 PM EDT Physical Therapy Physical Therapy Initial Assessment Name: Laura Mallory : 1960 Attending Physician: Eliud Lopez MD Admission Diagnosis: SEPTIC SHOCK Date: 05/26/2025 Room: [place] [address] Reviewed Pertinent hospital course: Yes Hospital Course PT/OT: Pt is a 64 y/o F txfr from OSH with shock and elevated liver enzymes. Initial presentation with weakness, abdominal pain, CTPA: b/l atelectasis vs consolidation, CTAP: portal vein mildly dilated but WNL flows; GI c/s: Low suspicion for pancreatitis and cholangitis, LFT elevation like r/t severe sepsis, rec hepatology c/s, acute hepatitis panel pending Relevant PMH : HFimpEF (LV EF in 02/2023 in the setting of Takotsubo cardiomyopathy, most recently 60-65% in 05/2023), cholecystectomy, nonobstructive CAD, COPD (baseline room air), GERD, osteoarthritis, anxiety, chronic back pain, chronic back/knee pain Precautions: MAP goal > 65 Activity Level: Activity as tolerated Assist: Co-evaluation performed Assessment Assessment: Impaired Balance, Impaired Strength, Impaired Stair Negotiation, Impaired Activity Tolerance, Impaired Bed Mobility, Impaired Transfers, Impaired Gait, Impaired Cognition, Deconditioning,Impaired Safety Awareness Prognosis: Excellent Pt pleasant and agreeable to therapy evaluation this date, tolerating session well with VSS. Laura retains good strength, performing bed mobility, STS transfers, and ambulating 25' with RW and CGA without LOB. She demos confusion that requires inc time and cueing, and has a notable tremor to LUE that she reports is not present at baseline, does not appear to be provoked by intentional movement. Ptcurrently limited by deficits in strength, balance, activity tolerance, and cognition. Pt presents below functional baseline. Anticipate pt will benefit from HHPT on d/c pending inc mobility assessment. Recommendation Recommendation: Home PT (anticipate, pending inc mobility assessment) Equipment Recommended: Defer until further assessment AM-PAC 6 Clicks Basic Mobility Inpatient Short Form: PT 6 Clicks Score: 18 Mobility Recommendations for Staff Patient ability: Patient transfers to chair/ bedside commode Assist needed: with 1 person assist Home Living/Prior Function Patient able to provide accurate information at this time: Yes Lives With: Spouse (DIL, grandson) Assistance available: 24 hour assistance Type of Home: Mobile home Home Entry: More than 1 step to enter;with railing Stairs to enter: 5 Home Layout: One level Bathroom Shower/Tub: Walk-in shower Bathroom Equipment: Shower chair Home Equipment: Wheelchair-manual;Single-point cane;Rollator Prior Function Functional Mobility: Modified Independent;with assistive device Uses Assistive Device: Single-point cane Receives Help From: None needed prior to admission ADL Assistance: Independent IADL Assistance: patient does not complete Leisure Activities: fishing Comments: endorses baseline L weakness r/t Hx CVA Pain Pain Score: ( a little bit ) Pain Location: Back Pain Descriptors: Sore Pain Intervention(s): Repositioned;Ambulation/increased activity Therapist reported pain to: RN monitoring Vision Hearing/Vision/Perception Hearing: No hearing deficits noted Baseline Vision: No visual deficits Overall Vision/ Perception: Within Functional Limits Cognition Overall Cognitive Status: Impaired Cognitive Assessment: Arousal/ Alertness;Orientation Level;Behavior;Following Commands;Safety Judgment;Insight Arousal/Alertness: Alert Orientation Level: Oriented to person;Oriented to place;Oriented to time;with choices;with increased time Behavior: Cooperative;Confused Following Commands: Follows multistep commands;Requires repetition of instruction Safety Judgment: Decreased awareness of safety precautions;Impaired judgment Insight: Demonstrated decreased insight into limitations and abilities to complete ADLs safely Neuromuscular Overall Sensation: Patient denies any numbness/ tingling in BUE's/ BLEs Upper Extremity UE Assessment: Defer to OT evaluation for formal assessment Lower Extremity Lower Extremity LE Assessment: Strength WFL (at least 3+/5) as observed during functional activity;ROM grossly WFL Functional Mobility Bed Mobility Supine to Sit: Contact guard assistance;head of bed elevated;towards the left Transfers Sit to Stand: Contact guard assistance;up to assistive device;cues for hand placement (x1 from EOB,x1 from recliner) Sit to Stand Assistive Device: Rolling walker Stand to Sit: Contact guard assistance;with assistive device;cues for hand placement Stand to Sit Assistive Device: Rolling walker Bed to Chair: Contact guard assistance;stand step;towards the left Gait Distance (in feet): 25 Level of assistance: Contact Guard assistance Assistive Device: Rolling walker Gait Characteristics: Steady;R decreased step length;L decreased step length;decreased mirza;WideBOS;No LOB Unable to progress further due to: LE weakness, fatigue Balance Sitting - Static: Stand by Assistance Sitting-Dynamic: Stand by assistance Standing-Static: Contact Guard Assistance;With Assistive Device Standing-Static Assistive Device: Rolling walker Standing-Dynamic: Contact Guard Assistance;With Assistive Device Standing-Dynamic Assistive Device: Rolling walker Gait belt used: Yes Vitals Vitals Therapy Vitals : vitals listed below Vitals Pre-Therapy HR( BPM): 73 SpO2 (%): 98 BP (mmHg): 106/72 (84) Vitals During Therapy Comments on Vitals: 2.5L O2 via NC Vitals Post-Therapy HR( BPM): 77 SpO2 (%): 94 BP (mmHg): 86/53 (62) Position after Therapy/Safety Handoff Position after treatment and safety handoff Position after therapy session: Recliner Details: RN notified;Call light/ needs within reach;visitor present Alarms: Chair Alarms Status: Activated and Interfaced with call system Goals Collaborated with: Patient, Family Patient Stated Goal: to go home Goals to be met by: 06/03/25 Patient will transition from supine to sit: Stand-By assistance Patient will transition from sit to supine: Stand-By assistance Patient will transfer from sit to stand: Supervision, up to assistive device Patient will transfer bed/chair: Supervision, via stand step Patient will ambulate: Stand-By assistance, with assistive device, distance (in feet) Ambulation Assistance Device: Rolling walker Distance (in feet): 50 Patient will go up / down stairs: Will tolerate assessment Long-term goal to be met by: 06/10/25 Type Proof Reproducer Goal : Pt will ascend/descend 5 stairs with SBA Patient/Family Education Educated patient and patient's family on the role of physical therapy, goals, plan of care, importance of increased activity, discharge recommendations, transfer training, and gait training and fall prevention strategies, including need for supervision/ assistance with OOB activity and use of call light; patient and patient's family verbalized understanding, needed cues, and will need reinforcement. Handout(s) issued: none. Plan Plan Treatment/Interventions: LE strengthening/ROM, Compensatory technique education, Therapeutic Activity, Therapeutic Exercise, Continued evaluation, Endurance training, Patient/family training, Stair Training, Neuromuscular Reeducation, Equipment eval/education, Gait training PT Frequency: minimum 2x/week The plan of care and recommendations assesses the patient's and/or caregiver's readiness, willingness, and ability to provide or support functional mobility and ADL tasks as needed upon discharge. Time Start Time: 1330 Stop Time: 1359 Time Calculation (min): 29 min Charges $PT Evaluation Mod Complex 30 Min: 1 Procedure Problem List Problem List[1] Past Medical History Past Medical History: Diagnosis Date Acute non-ST segment elevation myocardial infarction ([facility]) 02/26/2023 Anxiety Atherosclerosis of coronary artery without angina pectoris 02/26/2023 COPD (chronic obstructive pulmonary disease) ([facility]) Heart failure with improved ejection fraction (HFimpEF) ([facility]) Stress-induced cardiomyopathy 02/26/2023 Past Surgical History Past Surgical History: Procedure Laterality Date SECTION CHOLECYSTECTOMY HYSTERECTOMY [1] Patient Active Problem List Diagnosis Mastocytosis Shock Chronic anxiety Chronic diastolic (congestive) heart failure ([facility]) Gastroesophageal reflux disease without esophagitis * Duncan Puliod - 05/26/2025 12:10 PM EDT My initial visit with this patient and family. Just came here yesterday. Her was at bedside. They are from the [facility] and she was air lifted here. She has some kind of infection but don't know where it is located. More tests on her. Provided pastoral presence, emotional and spiritual support, and prayer. Please page our service at [phone] as needs arise for patient and/or family.Mars Lopez. * Willem Shin DO - 05/26/2025 6:56 AM EDT MICU Attending Admit Note I independently saw and examined this patient on 05/26/2025. The x-rays and labs were reviewed. The case was discussed in detail with the MICU house staff and a plan for medical care arranged. This is a 64 yo female who presented in transfer from an OSH on 05/25/2025 secondary to Septic Shock and Abnormal LFT's. She presented to the OSH due to feeling weak, light headed and experiencing falls at home. She has experienced recent vomiting but no hematemesis or hematochezia and no recent fevers/sweats. At the OSH, she was given 30 ml/kg of IV fluids and then placed on Norepi to support BP and given empiric Abx. 05/25/2025 - Admitted to on Norepi. Started empiric Zosyn PMHx --Hx of Takotsubo Cardiomyopathy with recovered EF --Chronic Diastolic Heart Failure --Hyperlipidemia --s/p Cholecystectomy --GERD --Chronic Back Pain --Osteoarthritis of Right Knee Allergies Allergies[1] BP 91/59 Pulse 76 Temp 98.4 ??F (36.9 ??C) Resp 16 Ht 5' 5 (1.651 m) Wt (!) 271 lb 13.2 oz (123.3 kg) SpO2 98% BMI 45.23 kg/m?? HEENT - PERRL, conjugate gaze. Neck - No palpable adenopathy CV - RRR Norepi off Chest/Lungs - Bilateral symmetrical respiratory excursions noted. 4L NC O2 Abd - RUQ tenderness improved - relatively asymptomatic at this time - palafox cath in place Ext - no deformity or edema. Neuro - Awake, alert and appropriately responsive Labs/Xrays reviewed. Assessment and Plan --Undifferentiated Shock with concerns for distributive/septic shock - clinically improved and is now off pressors. Abnormal LFT's and RUQ tenderness suggest possible cholangitis vs. Pancreatits Norepi is now off IV fluid resuscitation Blood cx's - NGTD D#2 Abx ==> Zosyn --Hx of Asthma/COPD Mometasone 220 1 puff daily Anoro Ellipta 1 puff daily --Hx of Takotsubo Cardiomyopathy (2022) with recovered EF ASA --Acute Kidney Injury with recovering UO/creat Follow UO/Creat Adjust meds to reduced GFR --Abnormal LFT's with normal Amylase/Lipase. Question of cholangitis / passed choledocholithiasis vs viral hepatitis, vs shock liver, vs other Consult GI Hep A/B/C screening labs --Leukocytosis in the present setting is felt most consistent with reaction to sepsis Follow CBC's --Normocytic Anemia without evidence of acute blood loss --Affective disorder/Chronic Back Pain Topiramate 250 mg daily Holding Gabapentin Holding Duloxetine 60 mg daily Holding Celecoxib 100 mg BID ICU Checklist DVT/Anticoagulation: {SQ UFH GI Ulcer Prophylaxis: H2 Filomena - preferred Nutrition: NPO LDA: Patient Lines/Drains/Airways Status Active LDAs None Invasive Lines: None Palafox Cath: Present Bowel Integrity: PEG/Laxatives held Rectal Tube: None Code Status: Full Code Next of kin / POA update: Patient/NOK/POA updated at bedside I spent a total of 40 minutes of critical care time caring for this patient with Septic shock, abnormal LFT's, including direct patient contact, management of life support systems review of data (i.e.: imaging and lab), discussion with team members and this time excludes time spent on procedures Willem Shin DO, DO 6:29 AM, 05/26/2025 [1] Allergies Allergen Reactions Aleve [Naproxen Sodium] Cristina [Fexofenadine] * Estrada Nelson DO - 05/26/2025 6:52 AM EDT Department of Internal Medicine MICU Daily Progress Note Patient: Laura Mallory Room: [place] [address] Code Status: Full Code Background / Hospital Course Laura Mallory is a 64 y.o. female with a PMH significant for HFimpEF (LV EF julian 30-40% in 02/2023 in the setting of Takotsubo cardiomyopathy, most recently 60- 65% in 05/2023), nonobstructive CAD, COPD (baseline room air), GERD, hx cholecystectomy, osteoarthritis, anxiety, chronic back pain, chart diagnosis of APARNA with no home nocturnal CPAP/BiPAP who presented to the hospital on 05/25/2025 as adirect admission from [facility] with shock and elevated liver enzymes. Interval History / Subjective Significant events/labs/imaging over the past 24 hours: - transfer from OSH, on Norepi until 2129 last night - pain managed with dilaudid prn, home tramadol, lower dose tylenol - Nontachy, BP 90-130/50-70, afebrile, currently on 2L NC but has intermittent desaturations (pleths likely unreliable) - Na 140, K 4.5, BUN 18, Cr 1.15 - AlkP 361, AST 342, ALT 345, Tb 2.9 (dBili 2) - WBC 29k, Hgb 10.4, PT 260 - UA wo overt c/f UTI, Ucx pending Brief Daily Plan: - monitor mental status/hemodynamics, follow up OSH cultures - BID RFP/hepatic panel - viral hepatitis/iron studies pending - clarify history (?hematochezia, abd pain) and baseline with - GI/hepatology consult on utility of additional imaging/workup - Keep NPO for now - wean pain meds as able Assessment & Plan Laura Mallory is a 64 y.o. female with Shock (CMS-HCC). Medical problems being addressed in this encounter include the following: Neurology, Pain, Sedation: #Encephalopathy, metabolic Patient more confused this morning, unable to recall prior events with accuracy. Spoke with , also notes her to be confused at this time however is improved from how she was prior to admission. Likely iso infection/metabolic derangements, although source of infection unclear at this time. - baseline is oriented x4 per - delirium precautions as able - CTM #Headache Says started overnight. Unable to localize to specific part of head, not repeated to position, no visual changes, no focal deficits on exam. Appears moderate in intensity, has some improvement in pain meds. Reports having headaches in the past that have been difficult to treat with NSAIDs. Had bad r eaction to sumatriptan. - will trial migraine cocktail (home atarax in place of benadryl) - pain as below # Chronic back with right-sided sciatica # Chronic knee pain 2/2 OA # Acute abdominal pain OARRS reviewed. Tramadol 50 mg #90 filled 05/08/2025. Gabapentin 100 mg #90 filled 04/08/2025. Patient's abdominal pain appears to have improved, does not have any TTP on exam today. - APAP 650 mg q6h PRN, max daily dose 3 grams given elevated LFTS - hydromorphone 0.3 mg IV q4h PRN for severe pain, will wean as able - Continue home tramadol 50 mg q8h PRN for moderate pain - Holding gabapentin; doesn't appear to have active Rx as outpatient - Continue duloxetine 60 mg daily - Holding home celecoxib 100 mg BID given FER # Chronic tremor No acute issues. Continue home topiramate 250 mg daily. Pulmonary: # AHRF # Bibasilar consolidations with mediastinal lymphadenopathy # Trace right pleural effusion # COPD Baseline room air. On 2-3 LPM on MICU admission but SpO2 high 90s%. Stable chronic cough. No changes in sputum amount or character. No shortness of breath or other respiratory symptoms. Based on this, no c/f AECOPD. Bibasilar atelectasis with mediastinal LAD and considerable leukocytosis c/f PNA. - Wean supplemental O2, goal SpO2 88-92% - Sputum culture, full outside RVP negative - MRSA nares neg (+staph aureus) - on zosyn - Continue therapeutic interchange for home Trelegy - Start albuterol nebs PRN - VBG this AM likely inaccurate due to %HBO2 low, can repeat for acute change in exam Cardiovascular: # Shock - resolved DDx: septic (favored given leukocytosis, intraabdominal vs pulmonary source) vs cardiogenic (troponin mildly elevated, NT pro-BNP elevated, extremities cool, portal vein dilation may indicate congestion; EKG low voltage on admission w/o ST-T wave changes c/f ischemia). Obstructive less likely; no PE or pericardial effusion on outside CTPA. Arrived on norepi with nonfunctional A-line; cuff MAP still ~65 on norepi @ 5. Lactate on admission wnl. Norepi stopped the evening of admission. Possible transient translocation that has since cleared. - MAP goal > 65 - Formal TTE, read pending - Infectious w/u and mgmt as below # Heart failure with improved ejection fraction # H/o Takotsubo cardiomyopathy # Non-obstructive coronary artery disease LV EF julian 30-40% iso Takotsubo CM (2022) with improved EF (60-65%) later in 2022; non-obstructiveCAD on remote [facility]. No sx of ACS. EKG low voltage but no signs of ACS. - Last BNP: 162 on admission. On Entresto at home so will get NT pro-BNP with next labs, but this was also elevated to 488 (uln 125) at outside hospital. - Volume status: peripherally volume up, chest imaging w/o pulmonary edema - Preload: hold home furosemide 40 mg BID iso shock - Pump: no inotropic support needed at this time - GDMT: > DEENA/ARB/ARNI: hold home Entresto 24-46 mg BID iso shock > Beta filomena: hold home carvedilol 3.125 mg BID iso shock > MRA: hold home spironolactone 25 mg BID iso shock > SGLT2-i: not prescribed as an outpatient - ASCVD: continue bASA, holding home high-intensity statin iso elevated liver enzymes - Strict I/O, daily weights (standing if able) - Formal TTE pending Gastrointestinal: Nutrition: regular diet (crackers tonight) then NPO @ midnight GI prophylaxis: home PPI, H2 filomena Last BM: prior to admission Bowel regimen: MiraLAX daily, senna-S PRN # Elevated liver enzymes, mixed cholestatic and hepatocellular (R factor 2.5) # Direct hyperbilirubinemia Despite labs and chills to support cholangitis, unable to make this dx given no ductal dilation on RUQ US and CT A/P. Surgically absent gallbladder. Normal- appearing liver and pancreas. Mildly dilated portal vein with normal hepatopetal flow. No new meds to raise c/f DILI. LFTs are already down-trending from outside hospital. Ddx hypoperfusion injury, viral infection - GI consult - no need for additional imaging / low concern for stone at this time - Hepatology - appreciate recs - Holding statin - APAP level, ammonia wnl - Amylase and lipase wnl # Opiate-induced constipation Last BM STOVE FITTER. - Hold home Linzess - Start MiraLAX daily, senna-S 1 tab QHS PRN for now but may need to up-titrate # Hematochezia # Recently-diagnosed hemorrhoids and anal fissure Intermittent BRBPR x 1 month. None on day of admission. Monitor. # GERD No acute issues. Continue interchange for home PPI and H2 filomena. # Vitamins No acute issues. Continue home vitamin D. Renal (Electrolytes, Acid/Base): # Acute kidney injury - improving Cr down-trending from OSH (1.5). Likely hypoperfusion injury. S/p 1 liter Normosol at [facility] + 1.5 liters crystalloid at OSH - Strict I/O, daily weights (standing if able) - Palafox catheter required for accurate I/O in critically ill patient Genitourinary: - No acute issues. - Palafox in place. Infectious Disease: Antimicrobials: - Pip-tazo (05/25 - ) - Vancomycin (05/25 at 12:30 PM) - Metronidazole (05/25) - Cefepime (05/25) Infectious work-up: - BCx (05/25) 2 of 2 NGTD - UCx (05/25) - Sputum Cx - MRSA nares - Outside full RVP (05/25) negative - Outside BCx was collected 05/25 # Leukocytosis with shock and c/f sepsis - improving Infectious source likely intraabdominal (abnormal LFTs, RUQ pain) vs pulmonary (bibasilar consolidations and small R pleural effusion, mediastinal LAD). - WBC 38k on admission, downtrending. - Continue pip-tazo - Follow cultures Endocrine: # Elevated A1c / pre-diabetes Last A1c 5.7%. No home antihyperglycemics. - FSBG AC and HS - Holding insulin for now - Hypoglycemia protocol Hematology/Oncology: # Normocytic anemia Last outside Hgb 12.7 (07/2024). Ferritin elevated (321) at that time; serum iron and TIBC wnl. Hasrecent h/o rectal bleeding but currently no signs to suggest acute blood loss. - low iron, %iron sat, can start iron replacement after infection clears Rheumatology: - No acute issues. Musculoskeletal: - No acute issues. Psychiatry: # Anxiety OARRS reviewed. Lorazepam 0.5 mg #60 filled 01/18/2025. Takes infrequently PRN. - Holding home lorazepam - Start reduced dose of hydroxyzine (10 mg BID PRN for anxiety; takes 25 mg BID PRN at home) F/E/N: - Replete electrolytes PRN. - Nutrition: NPO - POSITION CLASSIFIER eval: consult: not indicated at this time. Diet/Nutrition Orders Diet NPO past midnight Possible ERCP Frequency: Effective Number of Occurrences: Until Specified Order Comments: Possible ERCP Family discussion: ongoing. Disposition: remain in MICU. DVT/Anticoagulation: {SQ UFH GI Ulcer Prophylaxis: H2 Filomena - preferred Nutrition: NPO LDA: Patient Lines/Drains/Airways Status Active LDAs None Invasive Lines: Continue current access Palafox Cath: Present Bowel Integrity: PEG/Laxatives ordered Rectal Tube: None Code Status: Full Code Next of kin / POA update: Patient/NOK/POA updated at bedside Vital Signs & Physical Exam Temp: [98.4 ??F (36.9 ??C)-99.1 ??F (37.3 ??C)] 98.4 ??F (36.9 ??C) Heart Rate: [63-79] 75 Resp: [12-29] 18 BP: (80-132)/(53-83) 106/68 Constitutional: Wakes to voice, no acute distress, not toxic-appearing, HENT: Normocephalic, atraumatic, dry and tacky oral mucosa Eyes: EOM grossly intact, normal conjunctiva, anicteric sclerae Cardiovascular: RRR, auscultation limited by body habitus but no murmurs appreciated, extremities cool, cap refill > 3 seconds Respiratory: No increased work of breathing on 2 LPM; no overt wheezes, rales, or rhonchi but exam limited by body habitus; air movement heard throughout Abdomen: Soft, non-distended, tender to deep palpation in RUQ, no rebound or guarding MSK: Trace to 1+ symmetric pitting BLE edema to mid-salas Skin: Visible skin is warm, dry, intact. No visible rashes or lesions. Neurological: Alert, slow to respond to questions but answers appropriately, mild confusion about recent events Psych: Mood appropriate for situation, no abnormal behaviors. Intake/Output Summary (Last 24 hours) at 05/26/2025 1247 Last data filed at 05/26/2025 1100 Gross per 24 hour Intake 1469.66 ml Output 1263 ml Net 206.66 ml Admit Wt: Weight: (!) 267 lb 6.7 oz (121.3 kg) Recent Results All laboratory and imaging data reviewed. Relevant results noted as below: - Na 140, K 4.5, BUN 18, Cr 1.15 - AlkP 361, AST 342, ALT 345, Tb 2.9 (dBili 2) - WBC 29k, Hgb 10.4, PT 260 - UA wo overt c/f UTI, Ucx pending Imaging: TTE Study Conclusions - Left ventricle: The cavity size is normal. Wall thickness is normal. Systolic function is normal. The estimated ejection fraction is 55-60%. Although no diagnostic regional wall motion abnormality is identified, this possibility cannot be completely excluded on the basis of this study. Left ventricular diastolic function parameters are normal. - Right ventricle: Systolic function is normal by TAPSE. TAPSE: 1.9cm.Tricuspid annular systolic velocity: 14.5cm/s. - Pulmonary arteries: Systolic pressure could not be accurately estimated. ESTRADA NELSON DO Internal Medicine Resident, PGY-2 05/26/2025 12:47 PM Cosigned by Willem Shin DO at 05/26/2025 5:13 PM EDT Associated attestation - Willem Shin DO - 05/26/2025 5:13 PM EDT I saw and evaluated the patient, and discussed with the resident. I concur with the residents documentation of Laura Mallory. Please see my note for additions/addendums. Willem Shin DO 5:13 PM, 05/26/2025 * Leonard Echevarria - 05/26/2025 2:30 AM EDT This was an initial visit initiated by [facility] spiritual care consult to provide individual patient care. The visit was < 15 minutes and the patient's willingness to receive concert pianist care is unknown at this time. Patient was asleep. Unable to determine needs at this time. Chaplains can be paged at [phone] if additional needs develop. Leonard Echevarria Jr., MDiv, [facility] Staff Food Counselor [place] [address] Office [phone] Pager [phone] * Eliud Lopez MD - 05/25/2025 9:18 PM EDT MICU ATTENDING DAILY PROGRESS NOTE I independently saw and examined this patient on 05/25/2025. The x-rays and labs were reviewed. The case was discussed in detail during multidisciplinary rounds, the events of the past 24 hours reviewed, and a plan for medical care arranged. Labs, Xrays and pertinent studies were reviewed HPI 64 y/o F h/o HRrecEF (takatsubo's? Julian 30-40%->60-65%), COPD/asthma? HLD, anxiety, lumbago wh[facility]resented to [facility] w/ c/f septic shock and transaminitis. Has felt off for several days w/ nausea and occasional vomiting, abdominal pain, no diarrhea. Transferred to [facility] for further mgmt. BP 114/82 Pulse 66 Temp 99.1 ??F (37.3 ??C) Resp 27 Ht 5' 5 (1.651 m) Wt (!) 267 lb 6.7 oz (121.3 kg) SpO2 96% BMI 44.50 kg/m?? Gen - NAD, obese HEENT - NCAT Neck - thick, trachea midline CV - RRR, trace LE edema Chest/Lungs - non-labored, no distress Abd - soft, mildly tender to palpation - palafox in place draining yellow urine Ext: warm well perfused Neuro - A&Ox4, no focal deficit Labs/Xrays reviewed. Assessment and Plan #Shock; presumed septic; h/o presumed SICM/takatsubo's noted ->wean vasopressors for MAP >65; on levo ->follow-up infectious w/u Bcx, SpCx, UA/Ucx; cont empiric abx ->bedside TTE; follow-up formal #Acute hypoxic respiratory failure: CTPA w/ b/l atelectasis vs consolidation, chart dx of COPD, tracheobronchomalacia ->airway clearnace, acapella/IS ->wean o2 for Spo2 >90% #Transaminitis: had CTA/P at OSH; GB surgically absent, CBD nl caliber, intra/extrahepatic ducts nl, portal vein mildly dilated but w/ nl flows on RUQ at OSH, tyelenol level neg -> trend LFTs, consult GI in AM #Acute kidney Injury: baseline 0.7-0.8, p/w 1.22, prerenal vs ATN->follow-up w/ resuscitation, avoid nephrotoxics, CT A/P w/o obvious pathology #Anemia; normocytic-->transfuse for hgb <7 #Chronic low back pain w/ R sided sciatic->cont duloxetine and gabapentin, prn oxycodone Remainder per resident/DION note ICU Checklist DVT/Anticoagulation: {SQ UFH GI Ulcer Prophylaxis: None indicated Nutrition: NPO LDA: Patient Lines/Drains/Airways Status Active LDAs None Invasive Lines: None Palafox Cath: Present Bowel Integrity: PEG/Laxatives ordered Rectal Tube: None Code Status: Full Code Next of kin / POA update: To be updated by house staff [place] Consent: pending PT/OT: ordered Med list reviewed: reviewed I spent a total of 60 minutes of critical care time caring for this patient with septic shock, acute hypoxic respiratory failure, acute kidney injury including direct patient contact, management of life support systems review of data (i.e.: imaging and lab), discussion with team members, and this time excludes time spent on procedures Critical care was necessary to treat and prevent life-threatening deterioration from these conditions and requires high complexity decision making for assessment and support This note was completely edited, written and reviewed by me and consists of information cut and pasted from the my most recent visit, my smart phrases and other Epic tools. I have personally reviewedall aspects of this note to at least include reviewing this patient's chart and problem list, updating the history, physical exam, lab and procedure results, and assessment and plan as detailed aboveand below. As such this visit note reflects my current evaluation and management for this patient. ELIUD LOPEZ MD, DO 11:02 PM, 05/25/2025 * Blaine Whitlock - 05/25/2025 8:55 PM EDT [facility] Spiritual Care PATIENT NAME: Laura Mallory ROOM:[place] [address] [employer]ab[employer] Affiliation:No advent on file Pt/family unavailable during attempt to visit. Spiritual care to re-attempt visit at a later time. Please page our service at [phone] as needs arise for patient and/or family. documented in this encounter H&P Notes * Audi Yatse MD - 05/27/2025 12:56 PM EDT [facility] Internal Medicine - Transfer Acceptance Note Chief Concern Shock History of Present Illness The patient is a 64 y.o. female with a history of HFimpEF (LV EF julian 30-40% in 02/2023 in the setting of Takotsubo cardiomyopathy, most recently 60-65% in 05/2023), nonobstructive CAD, COPD (baseline room air), GERD, osteoarthritis, anxiety, chronic back pain, APARNA (no formal dx on noct. CPAP/BiPAP), direct admission to [facility] from [facility] with shock and elevated liver enzymes. Medical floor transition of care for ongoing medical management. Briefly, Arrived and received 1.5 L of fluids, was afebrile, dosed with flagyl, cefepime, vancomycin. Received Solumedrol and Duonebs for respiratory distress. Imaging showed no foci of infection except potential findings via CTPA. She is now being weaned to RA, and remains on zosyn monotherapy. She has been off of pressors and has improving FER. Identifies she's here for 'an infection somewhere in my body'. Has a stable home living situation, cane/walker use intermittently. Currently no fevers/chills, dysuria, cough nor SOB. Review of Systems ROS - unless stated above Past Medical and 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 Living arrangements: with spouse, in a home with stairs to enter Past Surgical History: Procedure Laterality Date SECTION CHOLECYSTECTOMY HYSTERECTOMY History reviewed. No pertinent family history. 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[1] Physical Exam Temp: [98.4 ??F (36.9 ??C)-99.1 ??F (37.3 ??C)] 98.8 ??F (37.1 ??C) Heart Rate: [67-81] 73 Resp: [12-24] 17 BP: (87-134)/(61-86) 126/86 Physical Exam Gen: AAOx4, moderately obese, mild pleasant confusion, NAD HEENT: NC, AT, PERRLA, and on NC 2 L CV: displaced PMI, no JVD, no LE edema, RRR Pulm: Diminished breath sounds bilaterally with normal WOB Abd: mild distension, NTTP, no masses/bruising/rashes Ext: no rashes/bruises, full ROM, adequate capillary refill Neuro: grossly non-focal Diagnostic Studies I have personally reviewed labs. .X-ray Portable Chest Result Date: 05/25/2025 IMPRESSION: Streaky left basilar airspace disease, atelectasis versus pneumonia. Report Verified by: Silvestre Greenwood MD at 05/25/2025 7:24 PM EDT Assessment & Plan Laura Mallory is a 64 y.o. with shock and abnormal LFTs, without clear infectious source off pressorsand HD stable. Assessment & Plan Septic shock, resolved Acute respiratory failure with hypoxia (CMS-HCC) No isolated soruce of infection. Cholangitis with stone passage (rapid improvement) vs. CAP strep pneumonia. Downtrending neutrophilic-predominant leukocytosis. - Strep pneumo + legionella Urine ag - Abx: - Zosyn (05/25-) - Based on above studies, de-escalate for total Abx course of 7 days (IV or PO) Acute metabolic encephalopathy Chronic anxiety OARRS reviewed -- Lorazepam 0.5 mg (60 tablets) filled 01/18/25, though takes infrequently PRN. Acute met. Encephalopathy most likely hospital-acquired delirium iso acute illness. Given HD stability, adding delirium precautions. - Holding home ativan - Hydroxyzine 10 mg BID PRN for anxiety Elevated LFTs Most likely ischemic hepatitis. Gallstone passage also possible (elevated total bili). Imaging w/o overt cause. GI followed and VIOLET for advanced imaging/dx evaluation. Also considered role of statin. - Hold statin for now HFimpEF Coronary artery disease involving [place] coronary artery of [place] heart without angina pectoris See MICU notes for details of cardiac history. Of note, GDMT at home low-dose entresto, low-dose coreg, aldactone 25 mg BID, not on SGLT2i though possible candidate (no prior DKA/UTI). - GDMT: - Preload: No diuresis given sepsis/hypovolemia - Pump: Restart Coreg 3.125 mg BID - Afterload: restart aldactone 25 mg tomorrow pending stability -- will consider SGLT2i upon discharge Chronic back+knee pain with R-sided sciatica On Tramadol 50 mg daily, gabapentin 100 mg TID, cymbalta 60 mg daily. IV Dilaudid given in MICU. - Home tramadol, gabapentin held d/t no active rx, cymbalta - Resuming Celecoxib (FER resolved) - Scheduled Tylenol + Robaxin and 2.5 mg Q6 Oxy PRN Opioid-induced constipation Intermittent BRBPR 1 month STOVE FITTER. - Hold home linzess resume upon DC - Miralax to BID + Senna scheduled QHS (no BM 2 days) - Suppository tomorrow if no BM Gastroesophageal reflux disease without esophagitis Protonix TI APARNA (obstructive sleep apnea) - OP sleep study Acute kidney injury (CMS-HCC) (Resolved: 05/27/2025) Prior to Admission Med Status: Medications confirmed and reconciled DVT Prophylaxis: subcutaneous heparin (prophylaxis) Code Status: Full Code AUDI YATES MD 05/27/2025 12:56 PM [1] 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 Tobacco Use Smoking status: Former Types: Cigarettes Smokeless tobacco: Never Tobacco comments: Former 2 PPD cigarette smoker, quit ~2004 Substance Use Topics Alcohol use: No Drug use: No Cosigned by Devante Kathleen MD at 05/27/2025 5:39 PM EDT Associated attestation - Devante Kathleen MD - 05/27/2025 5:39 PM EDT Hospital Medicine Attending Supervision Note [facility] // [facility] Laura Mallory was seen 05/27/25 on rounds with the resident physician. I personally interviewed and examined the patient. I reviewed the documentation by the resident and agree as documented unless otherwise stated below. Reason for today's visit: Septic shock (CMS-HCC) The pt presented to the MICU with septic shock, needing pressors, recovered with IV antibiotics, isnow on IV zosyn, will call outside hospital to get culture results. Pt is not confused any more, is hypoxic still, needing 1L O2 today. Complexity of Data Reviewed Personal Review of External Notes: ICU, hepatology notes Personal Review of Unique Test Results: CBC, BMP, lactate, UA Ordering Unique Test(s): - Independent Historian Interviewed: - Discussed Management or Test Interpretation with: spoke to mathematics instructor, discussed possibility of cholangitis or pneumonia for the patient Diagnostic Studies- CXR: b/l minimal basal opacifications I have personally reviewed the images associated with the above report(s). ECG: EKG personally reviewed: normal EKG, normal sinus rhythm, unchanged from previous tracings. Assessment & Plan Laura Mallory is a 64 y.o. female on hospital day 2. The medical issues being addressed in today's encounter are as follows: Principal Problem: Septic shock ([facility]) Active Problems: Coronary artery disease involving [place] coronary artery of [place] heart without angina pectoris Chronic anxiety Gastroesophageal reflux disease without esophagitis Morbid obesity ([facility]) Pneumonia of both lower lobes due to infectious organism Acute kidney injury ([facility]) Elevated LFTs Simple chronic bronchitis ([facility]) APARNA (obstructive sleep apnea) Acute respiratory failure with hypoxia ([facility]) Acute metabolic encephalopathy #Septic shock: #Bilateral pneumonia: #Acute respiratory failure with hypoxia: #Elevated LFT #Acute kidney injury: -all in the setting of septic shock, possibly pneumonia or cholangitis related infections -will get legionella/strep Ag in urine -call outside hospital for more information on blood cultures -continue IV zosyn for now -try to titrate off O2 -PT/OT consult #Morbid obesity Rest as below. Medical Decision Making: Acute or chronic illness that may pose threat to life or function Independent interpretation of image(s)/tracing(s): CXR, EKG Discussed with physician/DION from another specialty or practice, other licensed professional (PT/OT/POSITION CLASSIFIER/RT), or a non-medical community professional: mathematics instructor as above Labs reviewed (1 pt each): CBC, BMP, lactate, culture of blood Review of notes from a different specialty or different practice: ICU, hepatology notes DEVANTE KATHLEEN MD Attending Physician Division of [facility] Department of Internal Medicine Pager ID: [phone] 2:52 PM, 05/27/2025 * Cookie Abdul MD - 05/25/2025 9:18 PM EDT Department of Internal Medicine MICU History & Physical Laura Mallory Location: [place] [address] MICU admission date: 05/25/2025 Attending physician: Eliud Lopez MD Chief Concern Shock ([facility]) History of Presenting Illness Laura Mallory is a 64 y.o. female with h/o HFimpEF (LV EF julian 30-40% in 02/2023 in the setting of Takotsubo cardiomyopathy, most recently 60-65% in 05/2023), nonobstructive CAD, COPD (baseline room air), GERD, osteoarthritis, anxiety, chronic back pain, chart diagnosis of APARNA with no home nocturnalCPAP/BiPAP, who presents as a direct admission from [facility] with shock and elevated liver enzymes. History provided by patient and spouse. [place] weak and lightheaded this morning and had to be lowered to the floor. Abdominal pain, predominantly right upper quadrant, progressively worsening for 1 week. Described as cramping pain. Currently 4/10 resting and 6/10 with deep palpation. Chills but no known fevers. Intermittent lightheadedness has been present for months. Red blood in her stool intermittently for 1 month but none over the past couple of days. Nauseous without vomiting. Had cholecystectomy over 20 years ago. Outside hospital course: - With EMS en route 2 OSH, HR 120, BP 88/55, - On ED arrival, SpO2 77% on room air, up to 93% on 4 LPM nasal cannula - BPs as low as 49/20 - 1 liter normal saline bolus + 500 mL LR - Left radial A-line placed and started on norepi @ up to 8 mcg/min - Tmax 99.8 - Given metronidazole x 1 dose, cefepime x 1 dose, vancomycin (05/25 @ 12:30 PM) - Methylpred 125 mcg x 1 - DuoNebs - Liver: AST 990, ALT 538, alk phos 437, T. bili 3, amylase and lipase wnl, INR 0.99 - Renal: BUN 19, Cr 1.5 - Lactate 1.4 - NT pro-BNP 488 (ULN 125), trop wnl - VB.21 / 51 / central bicarb 25 (AG 13) - WBC 28.5, 91% neutrophils / Hgb 11.5 - CRP 15.5 (ULN 4), ESR 30 / wnl - D-dimer 4.14 (ULN 0.5) - Full RVP negative - UA 5-10 WBC, leuk esterase and nitrate negative, 2+ bacteria, occasional squam - RUQ US: > Bile duct of normal caliber (5.4 mm) > Mildly dilated portal vein (1.4 mm) with expected hepatopetal flow > Surgically absent gallbladder - CT A/P: > Liver normal, no mass > Status postcholecystectomy, intra and extrahepatic bile ducts unremarkable > Pancreas normal, no ductal dilation > Punctate calcified granulomas of spleen but otherwise unremarkable > No bowel obstruction or acute inflammation; no ascites, pneumoperitoneum, or drainable abscess - CTPA: > Mild scattered subsegmental atelectasis, small bibasilar consolidations, subsegmental atelectasis versus infectious versus inflammatory > Few mildly prominent mediastinal lymph nodes (e.g. paratracheal station node 1.5 cm), no distinct hilar adenopathy > Trace right pleural effusion > Biateral tracheobronchomalacia > Heart size evaluation, no pericardial effusion Review of Systems Constitutional: Positive for chills, malaise/fatigue and weight loss (20# over approx 1 year). Negative for fever. HENT: Negative for congestion and sore throat. Eyes: Negative for blurred vision and double vision. Respiratory: Negative for cough, sputum production (stable / baseline) and shortness of breath. Cardiovascular: Positive for leg swelling (coming and going). Negative for chest pain and palpitations. Gastrointestinal: Positive for abdominal pain, blood in stool (1 month), diarrhea and nausea. Negative for constipation and vomiting. Genitourinary: Negative for dysuria and frequency. Musculoskeletal: Positive for falls (last month). Negative for myalgias. Neurological: Negative for weakness and headaches. + lightheadedness (months) Psychiatric/Behavioral: Negative for substance abuse. Additional History Past Medical History: Diagnosis Date Acute non-ST segment elevation myocardial infarction ([facility]) 02/26/2023 Anxiety Atherosclerosis of coronary artery without angina pectoris 02/26/2023 COPD (chronic obstructive pulmonary disease) ([facility]) Heart failure with improved ejection fraction (HFimpEF) ([facility]) Stress-induced cardiomyopathy 02/26/2023 Past Surgical History: Procedure Laterality Date SECTION CHOLECYSTECTOMY HYSTERECTOMY History reviewed. No pertinent family history. 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 Tobacco Use Smoking status: Former Types: Cigarettes Smokeless tobacco: Never Tobacco comments: Former 2 PPD cigarette smoker, quit ~2004 Substance Use Topics Alcohol use: No Allergies[1] Medications Home medications: Reviewed and reconciled in [facility]. Inpatient medications: Scheduled: [START ON 05/26/2025] aspirin 81 mg Oral Daily 0900 calcium gluconate 2 g Intravenous Q1HRS [START ON 05/26/2025] cholecalciferol (vitamin D3) 5,000 Units Oral Daily 0900 [START ON 05/26/2025] DULoxetine 60 mg Oral Daily 0900 [START ON 05/26/2025] famotidine 20 mg Oral Daily 0900 heparin 7,500 Units Subcutaneous 3 times per day [START ON 05/26/2025] umeclidinium-vilanteroL 1 puff Inhalation RT Daily And [START ON 05/26/2025] mometasone 220 mcg/puff 1 puff Inhalation RT Daily mupirocin 1 g Topical BID [START ON 05/26/2025] pantoprazole 40 mg Oral DAILY 0600 [START ON 05/26/2025] piperacillin-tazobactam (ZOSYN) IV extended interval 4.5 g Intravenous Q8H [START ON 05/26/2025] polyethylene glycol 17 g Oral Daily 0900 [START ON 05/26/2025] topiramate 250 mg Oral Daily 0900 Continuous: PERIPHERAL norepinephrine Stopped (05/25/25 8197) PRN:[START ON 05/26/2025] acetaminophen, albuterol, dextrose 10% in water OR dextrose 10% in water, glucose, HYDROmorphone, ICU electrolyte replacement protocol AND Initiate electrolyte replacement protocol, ondansetron, senna- docusate, traMADoL Objective Vital signs: Temp: [99.1 ??F (37.3 ??C)] 99.1 ??F (37.3 ??C) Heart Rate: [63-77] 66 Resp: [13-29] 27 BP: (88-119)/(59-82) 114/82 BP 114/82 Pulse 66 Temp 99.1 ??F (37.3 ??C) Resp 27 Ht 5' 5 (1.651 m) Wt (!) 267 lb 6.7 oz (121.3 kg) SpO2 96% BMI 44.50 kg/m?? Ventilator settings: Intake / output: Intake/Output Summary (Last 24 hours) at 05/25/2025 2356 Last data filed at 05/25/2025 2245 Gross per 24 hour Intake 1369.67 ml Output 475 ml Net 894.67 ml Wt Readings from Last 3 Encounters: 05/25/25 (!) 267 lb 6.7 oz (121.3 kg) 10/14/17 (!) 311 lb (141.1 kg) Physical exam: Constitutional: Wakes to voice, no acute distress, not toxic-appearing, BMI 45 HENT: Normocephalic, atraumatic, dry and tacky oral mucosa Eyes: EOM grossly intact, normal conjunctiva, anicteric sclerae Cardiovascular: RRR, auscultation limited by body habitus but no murmurs appreciated, extremities cool, cap refill > 3 seconds Respiratory: No increased work of breathing on 2 LPM; no overt wheezes, rales, or rhonchi but exam limited by body habitus; air movement heard throughout Abdomen: Soft, non-distended, tender to deep palpation in RUQ, no rebound or guarding MSK: Trace to 1+ symmetric pitting BLE edema to mid-salas Skin: Visible skin is warm, dry, intact. No visible rashes or lesions. Neurological: Alert, slow to respond to questions but answers appropriately, oriented x 4, face symmetric, normal speech, no gross motor or sensory deficits. Psych: Mood appropriate for situation, no abnormal behaviors. CAM: Overall CAM-ICU : No Delirium RASS: Robles Agitation Sedation Scale: 0 Labs, imaging, and other diagnostic studies: Results reviewed in Epic, with pertinent positives and negatives as outlined below. Assessment & Plan Laura Mallory is a 64 y.o. female with Shock ([facility]). Neurology / Pain / Sedation # Chronic back with right-sided sciatica # Chronic knee pain 2/2 OA # Acute abdominal pain OARRS reviewed. Tramadol 50 mg #90 filled 05/08/2025. Gabapentin 100 mg #90 filled 04/08/2025. - Start APAP 650 mg q6h PRN, max daily dose 3 grams given elevated LFTS (has documented APAP allergy but is diarrhea and tolerated as recently as today) - Start hydromorphone 0.3 mg IV q4h PRN for severe pain (acute abdominal pain) - Continue home tramadol 50 mg q8h PRN for moderate pain - Holding gabapentin; doesn't appear to have active Rx as outpatient - Continue duloxetine 60 mg daily - Holding home celecoxib 100 mg BID given FER # Chronic tremor No acute issues. Continue home topiramate 250 mg daily. Cardiovascular # Shock DDx: septic (favored given leukocytosis, intraabdominal vs pulmonary source) vs cardiogenic (troponin mildly elevated, NT pro-BNP elevated, extremities cool, portal vein dilation may indicate congestion; EKG low voltage on admission w/o ST-T wave changes c/f ischemia). Obstructive less likely; no PE or pericardial effusion on outside CTPA. Arrived on norepi with nonfunctional A-line; cuff MAP still ~65 on norepi @ 5. Lactate on admission wnl. - Continue peripheral norepi - MAP goal > 65 - Formal TTE - Infectious w/u and mgmt as below # Heart failure with improved ejection fraction # H/o Takotsubo cardiomyopathy # Non-obstructive coronary artery disease LV EF julian 30-40% iso Takotsubo CM (2022) with improved EF (60-65%) later in 2022; non-obstructiveCAD on remote [facility]. No sx of ACS. EKG low voltage but no signs of ACS. - Last BNP: 162 on admission. On Entresto at home so will get NT pro-BNP with next labs, but this was also elevated to 488 (uln 125) at outside hospital. - Volume status: peripherally volume up, chest imaging w/o pulmonary edema - Preload: hold home furosemide 40 mg BID iso shock - Pump: no inotropic support needed at this time - GDMT: > DEENA/ARB/ARNI: hold home Entresto 24-46 mg BID iso shock > Beta filomena: hold home carvedilol 3.125 mg BID iso shock > MRA: hold home spironolactone 25 mg BID iso shock > SGLT2-i: not prescribed as an outpatient - ASCVD: continue bASA, holding home high-intensity statin iso elevated liver enzymes - Strict I/O, daily weights (standing if able) - Formal TTE Pulmonary # Hypoxia # Bibasilar consolidations with mediastinal lymphadenopathy # Trace right pleural effusion # COPD Baseline room air. On 2-3 LPM on MICU admission but SpO2 high 90s%. Stable chronic cough. No changes in sputum amount or character. No shortness of breath or other respiratory symptoms. Based on this, no c/f AECOPD. Bibasilar atelectasis with mediastinal LAD and considerable leukocytosis c/f PNA. - Wean supplemental O2, goal SpO2 88-92% - Sputum culture, full outside RVP negative - MRSA nares, holding empiric vancomycin - Continue pip-tazo - Continue therapeutic interchange for home Trelegy - Start albuterol nebs PRN Renal & Acid / Base Baseline serum creatinine: ~0.8 Most recent serum creatinine: Lab Results Component Value Date CREATININE 1.22 05/25/2025 # Acute kidney injury Cr down-trending from OSH (1.5). Likely hypoperfusion injury. - S/p 1 liter Normosol at [facility] + 1.5 liters crystalloid at OSH - Strict I/O, daily weights (standing if able) - Palafox catheter required for accurate I/O in critically ill patient FEN / GI Nutrition: regular diet (crackers tonight) then NPO @ midnight GI prophylaxis: home PPI, H2 filomena Last BM: prior to admission Bowel regimen: MiraLAX daily, senna-S PRN # Elevated liver enzymes, mixed cholestatic and hepatocellular (R factor 2.5) # Direct hyperbilirubinemia Despite labs and chills to support cholangitis, unable to make this dx given no ductal dilation on RUQ US and CT A/P. Surgically absent gallbladder. Normal- appearing liver and pancreas. Mildly dilated portal vein with normal hepatopetal flow. No new meds to raise c/f DILI. LFTs are already down-trending from outside hospital. - Holding hepatology c/s for now, pending AM LFTs - NPO at midnight in the event she needs ERCP - Holding home high-intensity statin - Max APAP 2 grams/24 hrs - GGT with next labs - Holding autoimmune labs given age and no known autoimmune hx or other sx - Viral hepatitis studies pending - APAP level, ammonia wnl - Amylase and lipase wnl - AM hepatic panel, INR # Opiate-induced constipation Last BM STOVE FITTER. - Hold home Linzess - Start MiraLAX daily, senna-S 1 tab QHS PRN for now but may need to up-titrate # Hematochezia # Recently-diagnosed hemorrhoids and anal fissure Intermittent BRBPR x 1 month. None on day of admission. Monitor. # GERD No acute issues. Continue interchange for home PPI and H2 filomena. # Vitamins No acute issues. Continue home vitamin D. Infection Antimicrobials: - Pip-tazo (05/25 - ) - Vancomycin (05/25 at 12:30 PM) - Metronidazole (05/25) - Cefepime (05/25) Infectious work-up: - BCx (05/25) 2 of 2 NGTD - UCx (05/25) - Sputum Cx - MRSA nares - Outside full RVP (05/25) negative - Outside BCx was collected 05/25 # Leukocytosis with shock and c/f sepsis Infectious source intraabdominal (abnormal LFTs, RUQ pain) vs pulmonary (bibasilar consolidations and small R pleural effusion, mediastinal LAD) - Continue pip-tazo - Holding empiric vancomycin for now, MRSA nares ordered - Follow cultures Endocrine # Elevated A1c / pre-diabetes Last A1c 5.7%. No home antihyperglycemics. - FSBG AC and HS - Holding insulin for now - Hypoglycemia protocol Hematology / Oncology # Normocytic anemia Last outside Hgb 12.7 (07/2024). Ferritin elevated (321) at that time; serum iron and TIBC wnl. Hasrecent h/o rectal bleeding but currently no signs to suggest acute blood loss. - Ferritin, iron panel, B12, and folate with AM labs Musculoskeletal No acute issues. Psychiatry # Anxiety OARRS reviewed. Lorazepam 0.5 mg #60 filled 01/18/2025. Takes infrequently PRN. - Holding home lorazepam - Start reduced dose of hydroxyzine (10 mg BID PRN for anxiety; takes 25 mg BID PRN at home) Critical Care Checklist DVT ppx / anticoagulation: SQ UFH GI ulcer ppx: H2 Filomena - preferred and PPI (home meds) Nutrition: PO Invasive lines: R radial A line from OSH, nonfunctional - pull PIV x 2 (05/24) Palafox cath: Present - 05/25 Bowel integrity: PEG/Laxatives ordered Rectal tube: None Code status: Full Code Next of kin / POA update: Spouse updated by myself at bedside Patient was seen and discussed with fellow and attending physician, Eliud Lopez MD. Cookie Abdul MD Internal Medicine, PGY-3 05/25/2025 11:56 PM This note was produced with the assistance [employer] dictation software. As a result, errors may occur. When identified, these errors have been corrected. While every attempt is made to correct errors during dictation, errors may still exist. [1] Allergies Allergen Reactions Aleve [Naproxen Sodium] Cristina [Fexofenadine] Cosigned by Eliud Lopez MD at 05/27/2025 5:42 AM EDT Associated attestation - Eliud Lopez MD - 05/27/2025 5:42 AM EDT I independently saw and evaluated the patient, and discussed with the resident/fellow/DION. I agree with the findings and plan as documented in their note. Please see my note for additions/addendums. Eliud Lopez DO, MSc Pulmonary and Critical Care Attending documented in this encounter Consult Notes * Misty Silveira CCC-POSITION CLASSIFIER - 05/27/2025 10:56 AM EDT Speech Language Pathology Clinical Swallow Assessment Name: Laura Mallory : 1960 Attending Physician: Willem Shin DO Admission Diagnosis: SEPTIC SHOCK Date: 05/27/2025 Reviewed Pertinent hospital course: Yes Hospital Course POSITION CLASSIFIER: Pt is a 64YOF admitted to [facility] 05/25/2025 from [facility] w/ shock & elevated liver enzymes. PMHx significant for Takotsubo cardiomyopathy, nonobstructive CAD, COPD (baseline RA), GERD, osteoarthritis, anxiety, chronic back pain, APARNA (no CPAP/BiPAP), & former smoker. Imaging: Chest xray 05/25/2025: Streaky left basilar airspace disease. Right lung is grossly clear. POSITION CLASSIFIER Hx: No previous POSITION CLASSIFIER services at [facility]. Assessment: Patient presents with increased risk of oropharyngeal dysphagia secondary to cognitive status and edentulism. Mildly prolonged mastication of hard/dry solid noted w/ mild oral residue that cleared after cued liquid wash. The successive 3oz thin liquid challenge was administered and passed, resulting in no clinical signs of aspiration. Clinical signs of aspiration were not observed with any trialed consistency. Pt/ endorse pt having difficulty masticating dry meats & nuts secondary to lack of dentition. Per , pt had an esophageal dilation ~5 yrs ago for her hiatal hernia . No complaints made this date during oral intake when upright. Given pt's current presentation during evaluation, rec upgrade to regular diet consistency/thin liquids w/ self- selection of softer/moist foods from menu. Additional safe swallow behaviors rendered to pt/family who voiced understanding. Of note, pt has difficulty following commands [facility]; per , this is not normal for her as she is typically sharp as a tack . noticed this change in cognition just since hospitalization. POSITION CLASSIFIER encouraged pt/family to reach out to medical team should mentation not improve w/in the next few days & POSITION CLASSIFIER can assess cognition at that time. Pt/ voiced understanding. Medical team notified of pt's UE jerky movements during self-feeding attempts as well. Plan/Recommendation: - Diet: Regular (IDDSI 7) with Thin Liquids (IDDSI 0) - Medication Administration: whole with liquid - POSITION CLASSIFIER while inpatient: 1-2x follow-up - POSITION CLASSIFIER services after discharge:pending pt's performance Orientation: Person: Yes Place: No Time: Yes Situation: Inconsistent Behavioral Profile: alert, cooperative, pleasant, confused Pain: Pain Score: 0 - No Pain Pain Location: Neck Pain Intervention(s): Medication (See eMAR) Aspiration Risk Aspiration Risk Recommendations: Dysphagia treatment Dysphagia Diagnosis: oral dysphagia Prognosis: Good Potential: Good Compensatory Swallowing Strategies: Upright as possible for all oral intake, Small bites/sips, Alternate solids and liquids Recommended Solid for Diet: Regular Recommended Liquid for Diet: Thin Liquids (IDDSI 0) Medication Administration: whole with liquid Goals Goals Dysphagia Patient will demonstrate safe swallowing behaviors: (ie upright, small bite/sip, alternate bite/sipfor oral clearance) in 90% of opportunities w/ min cues. Patient will tolerate the least restrictive diet as determined by no overt signs of aspiration: . Time frame for goals to be met in: 06/03/2025 Baseline Assessment History of Intubation: No Dentition: Edentulous General appearance of oral cavity: WFL; mandibular rotary chew movement in the absence of oral intake Baseline diet: regular/thin Current diet: soft/bite-size & thin liquids per medical team Respiratory Status Respiratory Status: O2 via nasal cannula (1L NC) Cranial Nerve & Laryngeal Function Exam CNIII - Occulomotor: Within Functional Limits CNV- Trigeminal: Within Functional Limits CNVII - Facial : Within Functional Limits CNIX - Glossopharyngeal: Within Functional Limits CNX - Vagus: Within Functional Limits CNVXII - Hypoglossal Status: Within Functional Limits Dentition and Hearing Dentition: Edentulous Hearing Exceptions: None Consistencies Assessed Consistencies Assessed: Ice chips;Thin;Puree;Hard Solid Ice Chips Presentation: Spoon Oral: Within functional limits Pharyngeal: No overt s/s of aspiration;Laryngeal elevation appreciated upon palpation Thin Presentation: Straw Oral: Within functional limits Pharyngeal: No overt s/s of aspiration;Laryngeal elevation appreciated upon palpation Puree Presentation: Spoon Oral: Within functional limits Pharyngeal: No overt s/s of aspiration;Laryngeal elevation appreciated upon palpation Hard Solid Presentation: Self Fed Oral: Prolonged Oral Phase (mild) Pharyngeal: No overt s/s of aspiration;Laryngeal elevation appreciated upon palpation Patient and Family Education Patient and Family Education: Patient educated on, Family educated on, role of POSITION CLASSIFIER, current POC, swallowing anatomy & physiology, safe swallowing behaviors, current diet recommendations, risks ofaspiration, dysphagia ( Adal) Education response: Patient requires cues to demonstrate understanding, Family demonstrated understanding End of Session: Patient was left in bed with call light within reach and all needs met. Safety handoff completed with RN. Time Start Time: 1021 Stop Time: 1046 Time Calculation (min): 25 min Charges $Clinical Swallow: 1 Procedure Misty Silveira MS, CCC-POSITION CLASSIFIER Speech-Language Pathology Rehabilitation Services Patient Class Inpatient * Stevie Hernandez MD - 05/26/2025 5:06 PM EDTAssociated Order(s): IP CONSULT TO LIVER [facility] HEPATOLOGY CONSULT NOTE Referring Physician: Eliud Lopez MD Consult Attending: Joseph 05/26/2025 5:06 PM Reason for Consult: elevated liver enzymes Laura Mallory is a 64 y.o. female with heart failure in setting of Takotsubo cardiomyopathy, CAD, COPD, s/p CCY who was transferred from [facility] for further evaluation of shock and abnormal liver enzymes. Initially experienced abdominal pain, cramping RUQ pain, nausea, vomiting for about 1 w [place]. At outside facility, she was hypoxic, hypotensive, and required levophed. Labs notable for wbc28.5, AST 990, ALT 538, Tbili 3, alk phos 437. RUQ US with surgically absent GB and mildly dilated portal vein without biliary ductal dilatation. CT abdomen/pelvis demonstrated a normal liver, unremarkable intra- and extra-hepatic bile ducts, normal pancreas. She was given vancomycin, cefepime, andflagyl and transferred to [facility]. Pressors were able to be weaned. Liver enzymes with improvement. INR 1.1. Denies prior history of liver disease. No significant alcohol consumption. Problem List Principal Problem: Shock History Past Medical History: Diagnosis Date Acute non-ST segment elevation myocardial infarction (CMS-HCC) 02/26/2023 Anxiety Atherosclerosis of coronary artery without angina pectoris 02/26/2023 COPD (chronic obstructive pulmonary disease) ([facility]) Heart failure with improved ejection fraction (HFimpEF) ([facility]) Stress-induced cardiomyopathy 02/26/2023 Past Surgical History: Procedure Laterality Date SECTION CHOLECYSTECTOMY HYSTERECTOMY History reviewed. No pertinent family history. 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[1] Allergies[2] Prior to Admission Medications Home Medications Medication Sig Taking? Last Dose aspirin 81 MG EC tablet Take 1 tablet (81 mg total) by mouth daily. Yes 05/24/2025 atorvastatin (LIPITOR) 40 MG tablet Take 1 tablet (40 mg total) by mouth daily. Yes 05/24/2025 carvediloL (COREG) 3.125 MG tablet Take 1 tablet (3.125 mg total) by mouth 2 times a day. Yes 05/24/2025 celecoxib (CELEBREX) 100 MG capsule Take 1 capsule (100 mg total) by mouth 2 times a day. Yes 05/24/2025 cholecalciferol, vitamin D3, 50 mcg (2,000 unit) Cap Take 1 capsule by mouth daily. Yes 05/24/2025 DULoxetine (CYMBALTA) 60 MG capsule Take 1 capsule (60 mg total) by mouth daily. Yes 05/24/2025 famotidine (PEPCID) 20 MG tablet Take 1 tablet (20 mg total) by mouth daily. Yes 05/24/2025 furosemide (LASIX) 40 MG tablet Take 1 tablet (40 mg total) by mouth 2 times a day. Yes 05/24/2025 hydrOXYzine HCL (ATARAX) 25 MG tablet Take 1 tablet (25 mg total) by mouth 2 times a day as needed for Itching or Anxiety. Yes Past Month LINZESS 72 mcg Cap Take 1 capsule (72 mcg total) by mouth every morning before breakfast. Yes 05/24/2025 LORazepam (ATIVAN) 0.5 MG tablet Take 1 tablet (0.5 mg total) by mouth daily as needed for Anxiety.Yes Past Month omeprazole (PRILOSEC) 20 MG capsule Take 1 capsule (20 mg total) by mouth every morning before breakfast. Yes 05/24/2025 sacubitriL-valsartan (ENTRESTO) 24-26 mg Tab Take 1 tablet by mouth 2 times a day. Yes 05/24/2025 spironolactone (ALDACTONE) 25 MG tablet Take 1 tablet (25 mg total) by mouth 2 times a day. Yes 05/24/2025 topiramate (TOPAMAX) 100 MG tablet Take 2.5 tablets (250 mg total) by mouth daily. Yes 05/24/2025 traMADoL (ULTRAM) 50 mg tablet Take 1 tablet (50 mg total) by mouth every 8 hours as needed for Pain. Yes Past Month TRELEGY ELLIPTA 100-62.5-25 mcg DsDv Inhale 1 puff into the lungs daily. Yes 05/24/2025 Current Medications Current Facility-Administered Medications Medication Dose Frequency Provider Last Admin acetaminophen 650 mg Q6H PRN Cookie Abdul MD 650 mg at 05/26/25 0757 albuterol 2.5 mg RT Q6H PRN Cookie Abdul MD aspirin 81 mg Daily 899 Cookie Abdul MD 81 mg at 05/26/25 0757 cholecalciferol (vitamin D3) 5,000 Units Daily 899 Cookie Abdul MD 5,000 Units at 05/26/25 0757 dextrose 10% in water 12.5 g Q15 Min PRN Cookie Abdul MD Or dextrose 10% in water 25 g Q15 Min PRN Cookie Abdul MD DULoxetine 60 mg Daily 899 Cookie Abdul MD 60 mg at 05/26/25 0757 famotidine 20 mg Daily 899 Cookie Abdul MD 20 mg at 05/26/25 0757 glucose 12 g Q15 Min PRN Cookie Abdul MD heparin 7,500 Units 3 times per day Denisse Albert DO 7,500 Units at 05/26/25 1256 HYDROmorphone 0.5 mg Q4H PRN Lewis Connelly MD 0.5 mg at 05/26/25 1444 hydrOXYzine HCL 10 mg BID PRN Cookie Abdul MD ICU electrolyte replacement protocol UD PRN Denisse Albert DO umeclidinium-vilanteroL 1 puff RT Daily Cookie Abdul MD 1 puff at 05/26/25 0903 And mometasone 220 mcg/puff 1 puff RT Daily oCokie Abdul MD 1 puff at 05/26/25 0903 mupirocin 1 g BID Denisse Albert DO 1 g at 05/26/25 0758 ondansetron 4 mg Q8H PRN Denisse Albert DO 4 mg at 05/26/25 0335 pantoprazole 40 mg DAILY 599 Cookie Abdul MD 40 mg at 05/26/25 0514 piperacillin-tazobactam (ZOSYN) IV extended interval 4.5 g Q8H Denisse Albert DO Rate Verify at 05/26/25 1302 polyethylene glycol 17 g Daily 899 Denisse Albert DO 17 g at 05/26/25 0800 senna-docusate 1 tablet Nightly PRN Cookie Abdul MD topiramate 250 mg Daily 0900 Cookie Abdul MD 250 mg at 05/26/25 0757 traMADoL 50 mg Q8H PRN Cookie Abdul MD 50 mg at 05/26/25 0959 Review of Systems 12 point review of systems negative except as above. Physical Examination Blood pressure (!) 87/70, pulse 71, temperature 98.8 ??F (37.1 ??C), temperature source Bladder, resp. rate 19, height 5' 5 (1.651 m), weight (!) 271 lb 13.2 oz (123.3 kg), SpO2 97%. Vital signs reviewed Gen: No acute distress. HEENT: No scleral icterus. Neck: Neck is supple. CV: Regular rate and rhythm Lungs: normal effort on nasal cannula Abdomen: Soft, nontender, nondistended Extremities: No bilateral lower extremity edema. Skin: No jaundice Neuro: AAOx4 Psych: Normal mood and affect. Normal speech and behavior. Labs/Imaging Lab Results Component Value Date GLUCOSE 108 (H) 05/26/2025 BUN 18 05/26/2025 CO2 20 (L) 05/26/2025 CREATININE 0.89 05/26/2025 K 4.7 05/26/2025 NA 139 05/26/2025 CL 110 05/26/2025 CALCIUM 8.7 05/26/2025 Lab Results Component Value Date ALKPHOS 361 (H) 05/26/2025 ALT 345 (H) 05/26/2025 AST 342 (H) 05/26/2025 BILITOT 2.9 (H) 05/26/2025 ALBUMIN 3.3 (L) 05/26/2025 BILIDIRECT 2.02 (H) 05/26/2025 PROT 6.7 05/26/2025 Lab Results Component Value Date MG 2.3 05/26/2025 Lab Results Component Value Date PHOS 4.2 05/26/2025 Lab Results Component Value Date WBC 29.1 (H) 05/26/2025 HGB 10.4 (L) 05/26/2025 HCT 30.6 (L) 05/26/2025 MCV 92.3 05/26/2025 PLT 260 05/26/2025 Lab Results Component Value Date INR 1.1 05/26/2025 MELD 3.0: 13 at 05/26/2025 3:02 PM Calculated from: Serum Creatinine: 0.89 mg/dL (Using min of 1 mg/dL) at 05/26/2025 10:08 AM Serum Sodium: 139 mmol/L (Using max of 137 mmol/L) at 05/26/2025 10:08 AM Total Bilirubin: 2.9 mg/dL at 05/26/2025 3:33 AM Serum Albumin: 3.5 g/dL at 05/26/2025 3:33 AM INR(ratio): 1.1 at 05/26/2025 3:02 PM Age at listing (hypothetical): 64 years Sex: Female at 05/26/2025 3:02 PM Assessment/Plan 64F with heart failure in setting of Takotsubo cardiomyopathy, CAD, COPD, s/p CCY who was transferred from [facility] for further evaluation of shock and abnormal liver enzymes. Acute liver injury - suspect due to ischemia Not in acute liver failure. AAOx5, INR WNL. Liver enzymes at OSH: AST 990, ALT 538, Tbili 3, alk phos 437. Repeat liver enzymes here continue to improve with most recent values AST 223, ALT 269, Tbili 1.2 (direct 0.6), alk phos 303. Hyperbilirubinemia with direct predominance, but imaging at OSH without ductal or vascular abnormalities suggestive of obstruction. Primarily suspect liver enzyme abnormalities are due to ischemic injury in setting of shock. Hepatic synthetic function appears intact, and rapid improvement in liver enzymes coinciding with improved MAP further supports ischemic cause. Plan/Recommendations: -daily liver enzymes -supportive care, maintain normotension as able -check HAV IgM, HAV IgG, HBV surface Ag, HBV surface Ab, HBV core IgM/IgG, HCV Ab -remaining care per primary team Plan to be discussed with Dr. Ruiz, recommendations final after attending attestation. Stevie Hernandez MD Gastroenterology Fellow, PGY-6 05/26/2025, 5:06 PM [1] 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 Tobacco Use Smoking status: Former Types: Cigarettes Smokeless tobacco: Never Tobacco comments: Former 2 PPD cigarette smoker, quit ~2004 Substance Use Topics Alcohol use: No Drug use: No [2] Allergies Allergen Reactions Aleve [Naproxen Sodium] Cristina [Fexofenadine] Cosigned by Dimitri Ruiz MD at 05/27/2025 12:24 PM EDT Associated attestation - Dimitri Ruiz MD - 05/27/2025 12:24 PM EDT Attending Physician's Note: I have personally seen and examined the patient on 05/27/2025, reviewed the chart, imaging and labs and have discussed the case with Dr. Hernandez, agree with his note and confirm it. 64 y.o. female with h/o heart failure, admitted with extreme hypotension and elevated LFTs. She wasstarted on pressors and was given IV fluids. She responded very quickly to these changes and blood pressure improved, came off pressors within few hours. LFTs also improving. She denies any abdominalpain PE Vitals: 05/27/25 0900 05/27/25 0903 05/27/25 1000 05/27/25 1100 BP: 120/73 134/82 126/86 BP Location: Patient Position: BP Cuff Size: Pulse: 78 79 73 Resp: 13 12 17 Temp: TempSrc: SpO2: 94% 93% 100% 95% Weight: Height: In no apparent cardiopulmonary distress but appears frail Sclera anicteric Alert and oriented times three, no asterixis No LE edema A&P 64 y.o. year old female with complex medical issues as detailed in HPI. Unclear etiology of her hypotensive episodes, sepsis vs cardiac event. Overall low suspicion that she had cholangitis or biliary obstruction. LFT elevation appears to be ischemic in nature and is already improving. Will not recommend any specific treatment for it Dimitri Ruiz MD GI and Hepatology Staff * Nona Goodson RD - 05/26/2025 1:49 PM EDTAssociated Order(s): IP CONSULT TO NUTRITION SERVICES [facility] Medical Nutrition Therapy Reason(s) for Completion: Physician/Nursing Referral Diet Order: NPO past midnight Nutrition Support: none Pertinent Information: Laura Mallory is an 64 y.o. female with a PMHx of HFimpEF (LV EF julian 30-40% in 02/2023 in the setting of Takotsubo cardiomyopathy, most recently 60-65% in 05/2023), nonobstructive CAD, COPD (baseline room air), GERD, hx cholecystectomy, osteoarthritis, anxiety, chronic back pain, chart diagnosis of APARNA with no home nocturnal CPAP/BiPAP who presented to the hospital on 05/25/2025 as adirect admission from [facility] with shock and elevated liver enzymes. Additional work up is notable for metabolic encephalopathy, headache, respiratory failure, FER. Consulted for other: auto-populated order. Nursing nutrition screen is notable for wounds and difficulty chewing/swallowing r/t hernia in throat . R arm skin tear present. The pt has been NPO since admission. She currently requires oxygen via NC and levo was stopped yesterday. Labs reviewed. Skin Integrity: R arm skin tear Gómez Scale Score: 16 GI: Last BM Date: (STOVE FITTER) Problem List[1] Past Medical History: Diagnosis Date Acute non-ST segment elevation myocardial infarction (CMS-HCC) 02/26/2023 Anxiety Atherosclerosis of coronary artery without angina pectoris 02/26/2023 COPD (chronic obstructive pulmonary disease) ([facility]) Heart failure with improved ejection fraction (HFimpEF) ([facility]) Stress-induced cardiomyopathy 02/26/2023 Scheduled Meds: aspirin 81 mg Oral Daily 0900 cholecalciferol (vitamin D3) 5,000 Units Oral Daily 0900 DULoxetine 60 mg Oral Daily 0900 famotidine 20 mg Oral Daily 0900 heparin 7,500 Units Subcutaneous 3 times per day magnesium sulfate 1 g Intravenous Once umeclidinium-vilanteroL 1 puff Inhalation RT Daily And mometasone 220 mcg/puff 1 puff Inhalation RT Daily mupirocin 1 g Topical BID pantoprazole 40 mg Oral DAILY 0600 piperacillin-tazobactam (ZOSYN) IV extended interval 4.5 g Intravenous Q8H polyethylene glycol 17 g Oral Daily 0900 topiramate 250 mg Oral Daily 0900 Continuous Infusions: PRN Meds:acetaminophen, albuterol, dextrose 10% in water OR dextrose 10% in water, glucose, HYDROmorphone, hydrOXYzine HCL, ICU electrolyte replacement protocol AND Initiate electrolyte replacement protocol, ondansetron, senna- docusate, traMADoL Pertinent Labs: Lab Results Component Value Date CREATININE 0.89 05/26/2025 BUN 18 05/26/2025 NA 139 05/26/2025 K 4.7 05/26/2025 CL 110 05/26/2025 CO2 20 (L) 05/26/2025 Lab Results Component Value Date ALBUMIN 3.3 (L) 05/26/2025 No results found for: PREALBUMIN Lab Results Component Value Date CALCIUM 8.7 05/26/2025 PHOS 4.2 05/26/2025 Lab Results Component Value Date MG 2.3 05/26/2025 Lab Results Component Value Date POCGMD 124 (H) 05/26/2025 Component Value Date/Time POCGMD 124 (H) 05/26/2025 1225 POCGMD 106 (H) 05/26/2025 0847 POCGLU 246 (H) 05/25/2025 1807 No results found for: HGBA1C No results found for: CRP No results found for: TRIG Lab Results Component Value Date WBC 29.1 (H) 05/26/2025 HGB 10.4 (L) 05/26/2025 HCT 30.6 (L) 05/26/2025 MCV 92.3 05/26/2025 PLT 260 05/26/2025 Temp (24hrs), Av.8 ??F (37.1 ??C), Min:98.4 ??F (36.9 ??C), Max:99.1 ??F (37.3 ??C) Potential Nutrition Related Factor(s): Social needs that may impact access to food: none noted Food Allergies/Intolerances: [facility] Cultural Requests: None 64 y.o. Female Ht Readings from Last 1 Encounters: 05/25/25 5' 5 (1.651 m) Wt Readings from Last 1 Encounters: 05/26/25 (!) 271 lb 13.2 oz (123.3 kg) Body mass index is 45.23 kg/m??. BMI Category: Class 3 (40.00 - and above) BMI [place] Body Weight: 125 lb (56.8 kg) +/- 10% Wt Readings from Last 25 Encounters: 05/26/25 (!) 271 lb 13.2 oz (123.3 kg) 10/14/17 (!) 311 lb (141.1 kg) Weight Change: limited weight hx Estimated Nutrition Needs: Needs based On: 56.8 kg IBW Kcals/day: 3390-7077 (22-25 kcal/kg) Protein g/day: 114 (2 g/kg) Carbohydrate g/day: Not restricted Fluid ml/day: ~1mL/kcal or per MD Nutrition Related Problems: Nutrition Diagnosis: inadequate oral intake Related To: restrictive diets As Evidenced By: NPO since admission Recommended Interventions: Advance diet as medically feasible Goals:Diet within 24 hours Nutrition Transition of Care Plan: Discharge plan of care for nutrition ongoing pending clinical course. Follow up per protocol while inpatient. Recommendation(s) to Physician: Advance diet as medically feasible, consider POSITION CLASSIFIER eval given reports of difficulty chewing/swallowing. Continue to monitor diet changes, weights and nutrition related labs. Nona Goodson RD, LD Clinical Dietitian Contact via Secure Epic Chat [1] Patient Active Problem List Diagnosis Mastocytosis Shock Chronic anxiety Chronic diastolic (congestive) heart failure ([facility]) Gastroesophageal reflux disease without esophagitis * Holly Giordano RN - 05/26/2025 1:27 PM EDT HEALTH Care Management/Social Work Assessment Patient Information Patient Name: Laura Mallory Hospital Day: 1 Inpatient/Observation: Inpatient Admit Date: 05/25/2025 Admission Diagnosis: SEPTIC SHOCK Attending provider: Eliud Lopez MD PCP: MANAS JENKINS MD Home Pharmacy: No Pharmacies Listed Pertinent Medications Anticoagulation therapy: No New Diabetic: No Issues related to obtaining medications: None Payor Information Medical Insurance Coverage: Payor: MEDICARE / Plan: MEDICARE A AND B / Product Type: Medicare / Secondary Payor: [facility] [place] [employer] Functional Assessment Functional Assessment Assessment Information Obtained From:: Spouse Current Mental Status: Unable to Assess (Patient sleeping, spouse at bedside and participated in patient's assessment.) Mental Status Prior to Admission: Unable to Assess (Patient sleeping, spouse at bedside and participated in patient's assessment.) Mental Health History: Yes (Spouse stated patient has a history of depression and anxiety. 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 Spouse did not remember her name. Patient is currently being managed by her therapist, there are no new consults.) Behavioral Health Agency Involvement: No Do you need Mental Health treatment resources?: No Patient Requests Social Work Consult?: No Substance Abuse: No Suicide Attempts: No Suicide History Comments: None Activities of Daily Living: Independent ADL Comments: Spouse stated patient is independent with her ADLs. Both spouse and [id number] is available to assist patient if needed. Work History: Disabled Marital Status: Number of children and their names: Two adult children Relative Search Completed: No Demographics Correct:: Yes Current Living Arrangements Current Living Arrangements Current Living Arrangements: Home Type of Housing: Other (Comment) (Mobile Home) Enter the number of steps and rails to enter the residence: 5 Enter the number of steps and rails inside the residence: None History of Falls?: Yes Frequency of Falls: Spouse stated patient had 2 falls in six months Community Services Community Services Community Services at Home: DME DME Current: Cane, Standard walker, Rolling walker, Shower Chair Was any abuse reported by patient?: No Status & Connection to [facility] [place] Status & Connection to [place] Services Are you a ?: No Support Systems Emergency contact: Extended Emergency Contact Information Primary Emergency Contact: Adal Mallory Address: [address] [place] Relation: Spouse Support Systems Legal Status: (Spouse stated patient does not have a HCPOA Document on file at [facility]. Patient's spouse is her CARMEN Mallory ([phone]).) Name of Guardian/POA/ Payee and Phone Number: Spouse stated patient does not have a HCPOA Document on file at [facility]. Patient's spouse is her CARMEN Mallory ([phone]). Primary Caregiver: Spouse Caregiver name/phone number: Patient's spouse is her CARMEN Mallory ([phone]). Times of available support: Total 24/7 hands on (add comment) Marital Status: Number of children and their names: Two adult children Relative Search Completed: No Demographics Correct:: Yes Expected Discharge Disposition: Home Next of Kin: Patient's spouse is her CARMEN Mallory ([phone]). Next of Kin Relationship: Spouse Next of Kin Phone Number: Patient's spouse is her CARMEN Mallory ([phone]). Assessment Information Obtained From:: Spouse Other Pertinent Information CM met with patient to initiate discussion regarding discharge planning and perform a Care Management Assessment. CM introduced self and role of case management/social work. Patient sleeping, spouse at bedside and participated in patient's assessment. Patient lives in a mobile home with her spouse and there are five steps to enter and none once inside. Spouse stated patient has a history of depression and anxiety. 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 Spouse did not remember her name. Patient is currently being managed by her therapist, there are no new consults. Spouse stated patient is independent with her ADLs. Both spouse and [id number]-ki-[id number] are available to assist patient if needed. The family are able to provide 24/7 support. Spouse stated patient does not have a HCPOA Document on file at [facility]. Patient's spouse is her CARMEN Mallory ([phone]). Community Services at Home: DME Current: Cane, Standard walker, Rolling walker, Shower Chair. Spouse stated patient have two adult children. There are no concerns for abuse. There are no barriers to discharge. Patient is not a and does not use any resources. Spouse stated he is able to transportpatient home at discharge. Advance Directives (For Healthcare) Advance Directive: Patient does not have advance directive No Advanced Directive: Patient would like information about advanced directives, forgoing or with-drawing life-sustaining treatment, and withholding resuscitative services Healthcare Agent Appointed: No Pre-existing DNR/DNI Order: No Patient Requests Assistance: No Discharge Plan Met with patient to initiate discussion regarding discharge planning. Introduced self and role of case management/social work and provided contact information. Barriers to Discharge Barriers to Discharge: (None) Anticipated Discharge Plan: TBD Anticipated Discharge Date: TBD vs 3-5 days, depending on patient's medical progression Anticipated Transportation: Spouse Patient/Family aware and taking part in the discharge plan. Patient/family educated that once post-acute care needs have been identified, a provider list applicable to the identified post-acute care needs as well as the insurance provider will be provided, and patient/family have the freedom to choose their provider(s); financial interest(s) are disclosed as appropriate. HOLLY GIORDANO RN Phone Number: [phone] documented in this encounter Nursing Notes * Shiloh Chand RN - 05/28/2025 1:31 PM EDT AVS reviewed with pt and . PIV's removed, pt assisted in getting dressed. directed on where discharge pharmacy is for pt's discharge abx. [facility]. * Dalila Burns RN - 05/27/2025 6:58 PM EDT Nursing Day Shift Progress Note Significant Events During Shift Patient bladder scanned, patient pulled out purewick due to being confused. 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 Patient/Family Concerns Visitors: none Concerns: none Assessment Nursing time demands: moderate IV access: has IV access, adequate and functioning Sitter requirements: no Mental Status Mental Status for the past 14 hrs: Level of Consciousness Orientation Level Cognition 05/27/25 0800 Alert Oriented to person;Oriented to time Follows simple commands 05/27/25 1528 Alert Oriented to person;Oriented to time;Oriented to place;MITCHEL Follows simple commands;Follows 2-step commands Medications [id number] - Medications Not Given (last 12 hrs) No medications to display * Shruti Woodall RN - 05/27/2025 3:52 PM EDT [facility], belongings at bedside, report given to bedside RN * Dalila Burns RN - 05/27/2025 3:28 PM EDT Patient to room via transport. Report received from MICU RN @ 1414. * Jose L Cerda RN - 05/25/2025 9:00 PM EDT 2 of patient's rings were sent home with patient's spouse. No other patient belongings noted. * Jose L Cerda RN - 05/25/2025 7:00 PM EDT Patient admitted to MICU room 22 from OSH. Patient transferred to ICU bed safely. Patient placed oncardiac monitor. VSS* MICU team at bedside, awaiting new orders. Pt arrived on 2L NC with PIV access x1 and 10mcg/min of peripheral levo infusing. Pt arrived with non-working arterial line that this RN removed. documented in this encounter Miscellaneous Notes * Care Coordination - Ant Dominguez RN - 05/28/2025 11:26 AM EDT [facility] Litigation Services Manager/Social Work Discharge Needs Assessment Laura Mallory [id number] 64 y.o. female White or Sepsis (CMS-HCC) [A41.9] Treatment Preferences Treatment Preferences: Other (provide comment) (n/a) Post-Discharge Goals Patient's Post-Discharge goals: medical stability and management Discharge Needs Assessment Home Health Services agency list provided: Yes Ant Dominguez RN [phone] * Care Coordination - Ant Dominguez RN - 05/28/2025 10:52 AM EDT TROY notified by that pt might be medically ready today and needing Home PT/OT. CM sent referrals for [facility] and awaiting response. Update 1104am- Pt setup with [place] [facility] for Home PT/OT. CM updated medical team and requested HHC orders. Ant Dominguez RN [phone] * Home Health Care Note - Devante Kathleen MD - 05/28/2025 10:46 AM EDT Images from the original note were not included. REFERRAL FOR HOME HEALTH SERVICES FORM Patient name: Laura Mallory Patient : 1960 Age: 64 y.o. Gender: female SSN: [id number] Address: [address] [place] [address] Phone number: There are no phone numbers on file. Patient emergency contact: Extended Emergency Contact Information Primary Emergency Contact: Adal Mallory [address]: [address] [place] [address] Relation: Spouse Date of admission: 05/25/2025 Date of discharge: 05/28/2025 Attending provider: Devante Kathleen MD Primary care physician: MANAS JENKINS MD Code status: Full Code Allergies: Allergies[1] Insurance Information Insurance Information MEDICARE/MEDICARE A AND B Phone: -- Subscriber: Laura Mallory Subscriber#: [id number] Group#: -- Precert#: -- Authorization#: -- Effective Date: -- [employer] [facility]/[employer] [place] [employer] MEDICA[employer] Subscriber: Laura Mallory Subscriber#: [id number] Group#: [id number] Precert#: -- Authorization#: -- Effective Date: -- Diagnoses Present on Admission Primary Diagnosis: Septic shock ([facility]) Discharge Diagnosis : Active Hospital Problems Diagnosis Date Noted Septic shock, resolved [A41.9, R65.21] 05/25/2025 Morbid obesity ([facility]) [E66.01] 05/27/2025 Pneumonia of both lower lobes due to infectious organism [J18.9] 05/27/2025 Elevated LFTs [R79.89] 05/27/2025 Simple chronic bronchitis ([facility]) [J41.0] 05/27/2025 APARNA (obstructive sleep apnea) [G47.33] 05/27/2025 Acute respiratory failure with hypoxia ([facility]) [J96.01] 05/27/2025 Acute metabolic encephalopathy [G93.41] 05/27/2025 HFimpEF [I50.22] 05/27/2025 Opioid-induced constipation [K59.03, T40.2X5A] 05/27/2025 Chronic back+knee pain with R-sided sciatica [M54.9, G89.29] 05/27/2025 Coronary artery disease involving [place] coronary artery of [place] heart without angina pectoris [I25.10] 02/26/2023 Gastroesophageal reflux disease without esophagitis [K21.9] 05/02/2022 Chronic anxiety [F41.9] 05/02/2022 Resolved Hospital Problems Diagnosis Date Noted Date Resolved Acute kidney injury ([facility]) [N17.9] 05/27/2025 05/27/2025 Prognosis: good Rehabilitation potential: good Diet Diet/Nutrition Orders Diet Regular(7) Thin(0) whole meds w/ water Frequency: Effective Now Number of Occurrences: Until Specified Order Comments: whole meds w/ water Order Questions: Additional restrictions: Thin(0) Suicide/Behavior Risk Modification? No Regular Diet Services Required Physical Therapy: Plan Treatment/Interventions: LE strengthening/ROM, Compensatory technique education, Therapeutic Activity, Therapeutic Exercise, Continued evaluation, Endurance training, Patient/family training, Stair Training, Neuromuscular Reeducation, Equipment eval/education, Gait training PT Frequency: minimum 2x/week Recommendation Recommendation: Home PT (anticipate, pending inc mobility assessment) Equipment Recommended: Defer until further assessment Occupational Therapy: Plan Treatment Interventions: ADL retraining, Activity Tolerance training, Patient/Family training, Functional transfer training, Therapeutic Activity OT Frequency: minimum 2x/week Recommendation Recommendation: Home OT Equipment Recommendations: Patient already has needed DME Weight bearing status: full Needs 24 hour supervision due to cognitive impairment: No Discharge Medications Medications: Current Discharge Medication List START taking these medications Details levoFLOXacin (LEVAQUIN) 500 MG tablet Take 1 tablet (500 mg total) by mouth daily for 3 days. Qty: 3 tablet, Refills: 0 CONTINUE these medications which have CHANGED Details !! topiramate (TOPAMAX) 100 MG tablet Take 1 tablet (100 mg total) by mouth daily. !! - Potential duplicate medications found. Please discuss with provider. CONTINUE these medications which have NOT CHANGED Details aspirin 81 MG EC tablet Take 1 tablet (81 mg total) by mouth daily. atorvastatin (LIPITOR) 40 MG tablet Take 1 tablet (40 mg total) by mouth daily. carvediloL (COREG) 3.125 MG tablet Take 1 tablet (3.125 mg total) by mouth 2 times a day. celecoxib (CELEBREX) 100 MG capsule Take 1 capsule (100 mg total) by mouth 2 times a day. cholecalciferol, vitamin D3, 50 mcg (2,000 unit) Cap Take 1 capsule by mouth daily. DULoxetine (CYMBALTA) 60 MG capsule Take 1 capsule (60 mg total) by mouth daily. famotidine (PEPCID) 20 MG tablet Take 1 tablet (20 mg total) by mouth daily. furosemide (LASIX) 40 MG tablet Take 1 tablet (40 mg total) by mouth 2 times a day. gabapentin (NEURONTIN) 100 MG capsule Take 1 capsule (100 mg total) by mouth 3 times a day. hydrOXYzine HCL (ATARAX) 25 MG tablet Take 1 tablet (25 mg total) by mouth 2 times a day as needed for Itching or Anxiety. LINZESS 72 mcg Cap Take 1 capsule (72 mcg total) by mouth every morning before breakfast. LORazepam (ATIVAN) 0.5 MG tablet Take 1 tablet (0.5 mg total) by mouth daily as needed for Anxiety. omeprazole (PRILOSEC) 20 MG capsule Take 1 capsule (20 mg total) by mouth every morning before breakfast. oxybutynin (DITROPAN-XL) 10 MG 24 hr tablet Take 1 tablet (10 mg total) by mouth daily. sacubitriL-valsartan (ENTRESTO) 24-26 mg Tab Take 1 tablet by mouth 2 times a day. spironolactone (ALDACTONE) 25 MG tablet Take 1 tablet (25 mg total) by mouth 2 times a day. !! topiramate (TOPAMAX) 100 MG tablet Take 1.5 tablets (150 mg total) by mouth at bedtime. traMADoL (ULTRAM) 50 mg tablet Take 1 tablet (50 mg total) by mouth every 8 hours as needed for Pain. TRELEGY ELLIPTA 100-62.5-25 mcg DsDv Inhale 1 puff into the lungs daily. !! - Potential duplicate medications found. Please discuss with provider. Discharge Specific Orders Discharge specific orders: None required Isolation Patient Isolation Status None to display Vitals Patient Vitals for the past 4 hrs: BP Temp Temp src Pulse Resp SpO2 05/28/25 1225 144/88 98.6 ??F (37 ??C) Oral 71 16 94 % Equipment/Supplies No current labs Ordering Physician: NPI [DEVANTE KATHLEEN MD] Physician Certification Further, I certify that my clinical findings support that this patient is homebound (i.e. absences from home require considerable and taxing effort and are for medical reasons or catholic services or infrequently or short duration when for other reasons) due to deconditioning it would be a taxing effort to receive outpatient services. My signature below is to certify that this patient is under my care and that I, or nurse practitioner, or a physician business development assistant working with me, had a [id number] encounter with this is patient on: 05/28/2025 Follow-up Appointments and Post Hospital Discharge Physician Name No future appointments. [facility] [address] [address] Discharging Physician Signature and Credentials Discharging Physician: Electronically signed by DEVANTE KATHLEEN MD 05/28/2025, 12:55 PM Physician to follow up Information PCP: MANAS JENKINS MD PCP address: [address] [facility] [address] PCP phone number: [phone] PCP fax number: [phone] If PCP is not following patient, type physician contact information here: Patient will be followed by PCP Steamer Tender and Credentials Provider/Company Name and Contact Number: Community Services at Discharge Community Services at Home post discharge: [facility] Name/Phone # post discharge: [facility] [phone] Home Health Services Types at Discharge: PT/OT/POSITION CLASSIFIER \ [1] Allergies Allergen Reactions Aleve [Naproxen Sodium] Cristina [Fexofenadine] * Plan of Care - Shiloh Chand RN - 05/28/2025 7:41 AM EDT Problem: Safety Goal: Patient will be injury free during hospitalization Description: Assess and monitor vitals signs, neurological status including level of consciousness and orientation. Assess patient's risk for falls and implement fall prevention plan of care and interventions per hospital policy. Ensure arm band on, uncluttered walking paths in room, adequate room lighting, call light and overbed table within reach, bed in low position, wheels locked, side rails up per policy, and non-skid footwear provided. Outcome: Progressing Goal: Patient with weight > 350lbs will have appropriate equipment Description: Consider ordering Bariatric Bed, Chair and Bedside Commode for patient weight > 350lbs. Outcome: Progressing Problem: Patient will remain free of falls Goal: [place] Fall Precautions Outcome: Progressing Problem: Daily Care Goal: Daily care needs are met Description: Assess and monitor ability to perform self care and identify potential discharge needs. Outcome: Progressing Problem: Psychosocial Needs Goal: Demonstrates ability to cope with hospitalization/illness Description: Assess and monitor patients ability to cope with his/her illness. Outcome: Progressing Goal: Collaborate with patient/family to identify patient's goals Outcome: Progressing Problem: Discharge Barriers Goal: Patient's discharge needs are met Description: Collaborate with interdisciplinary team and initiate plans and interventions as needed. Outcome: Progressing Problem: Knowledge Deficit Goal: Patient/family/caregiver demonstrates understanding of disease process, treatment plan, medications, and discharge instructions Description: Complete learning assessment and assess knowledge base. Outcome: Progressing Problem: Potential for Compromised Skin Integrity Goal: Skin integrity is maintained or improved Description: Assess and monitor skin integrity. Identify patients at risk for skin breakdown on admission and per policy. Collaborate with interdisciplinary team and initiate plans and interventions as needed. Outcome: Progressing Goal: Nutritional status is improving Description: Monitor and assess patient for malnutrition (ex- brittle hair, bruises, dry skin, paleskin and conjunctiva, muscle wasting, smooth red tongue, and disorientation). Collaborate with interdisciplinary team and initiate plan and interventions as ordered. Monitor patient's weight and dietary intake as ordered or per policy. Utilize nutrition screening tool and intervene per policy. Determine patient's food preferences and provide high-protein, high- caloric foods as appropriate. Outcome: Progressing Problem: Incontinence Goal: Perineal skin integrity is maintained or improved Description: Assess genitourinary system, perineal skin, labs (urinalysis), and history of incontinence to include past management, aggravating, and alleviating factors. Collaborate with interdisciplinary team and initiate plans and interventions as needed. Outcome: Progressing Problem: High Fall Risk Precautions Goal: High Fall Risk Precautions Outcome: Progressing Problem: Discharge Planning Goal: Identify discharge needs Outcome: Progressing * Plan of Care - Shae Mcgill RN - 05/27/2025 11:23 PM EDT Problem: Safety Goal: Patient will be injury free during hospitalization Description: Assess and monitor vitals signs, neurological status including level of consciousness and orientation. Assess patient's risk for falls and implement fall prevention plan of care and interventions per hospital policy. Ensure arm band on, uncluttered walking paths in room, adequate room lighting, call light and overbed table within reach, bed in low position, wheels locked, side rails up per policy, and non-skid footwear provided. Outcome: Progressing Goal: Patient with weight > 350lbs will have appropriate equipment Description: Consider ordering Bariatric Bed, Chair and Bedside Commode for patient weight > 350lbs. Outcome: Progressing Problem: Patient will remain free of falls Goal: [place] Fall Precautions Outcome: Progressing Problem: Daily Care Goal: Daily care needs are met Description: Assess and monitor ability to perform self care and identify potential discharge needs. Outcome: Progressing Problem: Psychosocial Needs Goal: Demonstrates ability to cope with hospitalization/illness Description: Assess and monitor patients ability to cope with his/her illness. Outcome: Progressing Goal: Collaborate with patient/family to identify patient's goals Outcome: Progressing Problem: Discharge Barriers Goal: Patient's discharge needs are met Description: Collaborate with interdisciplinary team and initiate plans and interventions as needed. Outcome: Progressing Problem: Knowledge Deficit Goal: Patient/family/caregiver demonstrates understanding of disease process, treatment plan, medications, and discharge instructions Description: Complete learning assessment and assess knowledge base. Outcome: Progressing Problem: Potential for Compromised Skin Integrity Goal: Skin integrity is maintained or improved Description: Assess and monitor skin integrity. Identify patients at risk for skin breakdown on admission and per policy. Collaborate with interdisciplinary team and initiate plans and interventions as needed. Outcome: Progressing Goal: Nutritional status is improving Description: Monitor and assess patient for malnutrition (ex- brittle hair, bruises, dry skin, paleskin and conjunctiva, muscle wasting, smooth red tongue, and disorientation). Collaborate with interdisciplinary team and initiate plan and interventions as ordered. Monitor patient's weight and dietary intake as ordered or per policy. Utilize nutrition screening tool and intervene per policy. Determine patient's food preferences and provide high-protein, high- caloric foods as appropriate. Outcome: Progressing Problem: Incontinence Goal: Perineal skin integrity is maintained or improved Description: Assess genitourinary system, perineal skin, labs (urinalysis), and history of incontinence to include past management, aggravating, and alleviating factors. Collaborate with interdisciplinary team and initiate plans and interventions as needed. Outcome: Progressing Problem: High Fall Risk Precautions Goal: High Fall Risk Precautions Outcome: Progressing Problem: Discharge Planning Goal: Identify discharge needs Outcome: Progressing * Hospital Course - [facility] - 05/27/2025 3:37 PM EDT #Shock, resolved #C/f sepsis, improving #Leukocytosis #C/f pneumonia Patient presented from OSH with hypotension requiring norepi (off since 05/25). Septic shock most likely given leukocytosis and improvement since initiation of abx. CTPA at OSH with small bibasilar consolidations, bilateral tracheobronchomalacia, mediastinal LAD, trace R pleural effusion. Cholangitis unlikely as RUQ US and CT A/P without ductal dilation. From OSH 05/27: bcx NGTD, ucx NGTD, RVP negative. WBC continues to downtrend (38 on admission, now to 9). Possible that pt had bacterial pneumoniastrep pneumo urine antigen negative, however patient received 3 days of antibiotics before testing which may result in a false negative. Received one dose of vancomycin, metronidazole, and cefepime on 05/25, then switched to zosyn 05/25-05/28. Will discharge on oral antibiotics to cover strep pneumo pneumonia and potential intraabdominal infection. - Levofloxacin 500mg daily for 3 days (05/29-06/01) #Metabolic encephalopathy Patient with waxing and waning mental status since admission. Per , baseline is AOx4, states patient still confused but improving from admission. Likely d/t possible infection vs hospital-acquired delirium. #Hepatic Transaminitis Presented to OSH with AST 990, ALT 538, alk phos 437, T. Bili 3. Now continuing to downtrend, T. Bili wnl. Hepatology consulted, suspect transient ischemia as cause. RUQ US and CT A/P without ductal dilation, and with normal-appearing liver and pancreas, mildly dilated portal vein with normal hepatopetal flow. HCV Ab nonreactive, Hep B workup to suggest previous infection without current infection (core ab +, core IgM -, surface ab +, surface ag -). - Held statin during admission, can resume at discharge #AHRF, improving #COPD Baseline is RA. Required 4L NC at admission, able wean to RA with goal SpO2 88- 92%. No SOB or otherrespiratory sx. Stable chronic cough. No c/f AECOPD. RVP at OSH neg. Continue home treatments. #FER, resolved Patient presented from OSH with Cr 1.5, likely hypoperfusion injury. FER resolved after IV fluids. #HF with improved EF #Non-obstructive CAD LV EF julian 30-40% iso Takotsubo CM (2022) with improved EF (60-65%) later in 2022; non-obstructiveCAD on remote [facility]. No sx of ACS. EKG low voltage but no signs of ACS. TTE 05/26 with EF 55-60%, no concerns. Last BNP 162 but on entresto at home. Chest imaging w/o pulmonary edema. Able to resume homemedications as shock has resolved. 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 - Resume home Linzess - Miralax BID, senna QHS #Normocytic anemia Last outside Hgb 12.7 (07/2024). Ferritin elevated (321) at that time; serum iron and TIBC wnl. Hasrecent h/o rectal bleeding but currently no signs to suggest acute blood loss. Hb stable during admission ~9-10. Iron studies with mildly low iron, low % iron sat, normal TIBC and ferritin. Suggestedfollow-up with PCP. #Anxiety OARRS reviewed. Lorazepam 0.5 mg #60 filled 01/18/2025. Takes infrequently PRN. Patient did not receive lorazepam during admission. #Headache Patient reporting nighttime headaches, pt believes related to not drinking caffeine. Unable to localize to specific part of head. Reports having headaches in the past that have been difficult to treat with NSAIDs. Had bad reaction to sumatriptan. Suggested follow-up with PCP. #APARNA Recommend outpatient sleep study * Plan of Care - Dalila Burns RN - 05/27/2025 3:28 PM EDT Problem: Safety Goal: Patient will be injury free during hospitalization Description: Assess and monitor vitals signs, neurological status including level of consciousness and orientation. Assess patient's risk for falls and implement fall prevention plan of care and interventions per hospital policy. Ensure arm band on, uncluttered walking paths in room, adequate room lighting, call light and overbed table within reach, bed in low position, wheels locked, side rails up per policy, and non-skid footwear provided. Outcome: Progressing Problem: Patient will remain free of falls Goal: [place] Fall Precautions Outcome: Progressing Problem: Daily Care Goal: Daily care needs are met Description: Assess and monitor ability to perform self care and identify potential discharge needs. Outcome: Progressing Problem: Psychosocial Needs Goal: Demonstrates ability to cope with hospitalization/illness Description: Assess and monitor patients ability to cope with his/her illness. Outcome: Progressing Problem: Potential for Compromised Skin Integrity Goal: Skin integrity is maintained or improved Description: Assess and monitor skin integrity. Identify patients at risk for skin breakdown on admission and per policy. Collaborate with interdisciplinary team and initiate plans and interventions as needed. Outcome: Progressing Problem: Incontinence Goal: Perineal skin integrity is maintained or improved Description: Assess genitourinary system, perineal skin, labs (urinalysis), and history of incontinence to include past management, aggravating, and alleviating factors. Collaborate with interdisciplinary team and initiate plans and interventions as needed. Outcome: Progressing * Plan of Care - Shruti Woodall RN - 05/27/2025 11:08 AM EDT Problem: Safety Goal: Patient will be injury free during hospitalization Description: Assess and monitor vitals signs, neurological status including level of consciousness and orientation. Assess patient's risk for falls and implement fall prevention plan of care and interventions per hospital policy. Ensure arm band on, uncluttered walking paths in room, adequate room lighting, call light and overbed table within reach, bed in low position, wheels locked, side rails up per policy, and non-skid footwear provided. Outcome: Not Progressing Problem: Patient will remain free of falls Goal: [place] Fall Precautions Outcome: Not Progressing Problem: Potential for Compromised Skin Integrity Goal: Skin integrity is maintained or improved Description: Assess and monitor skin integrity. Identify patients at risk for skin breakdown on admission and per policy. Collaborate with interdisciplinary team and initiate plans and interventions as needed. Outcome: Not Progressing * Plan of Care - Jose L Cerda RN - 05/26/2025 8:00 PM EDT Problem: Potential for Compromised Skin Integrity Goal: Skin integrity is maintained or improved Description: Assess and monitor skin integrity. Identify patients at risk for skin breakdown on admission and per policy. Collaborate with interdisciplinary team and initiate plans and interventions as needed. Outcome: Progressing Note: Patient's skin has scattered bruising noted and a skin tear to the RFA with a mepilex transfer dressing applied. Otherwise skin intact. Patient is repositioned with pillow support and reassessed every two hours. Patient on low air loss mattress. Problem: High Fall Risk Precautions Goal: High Fall Risk Precautions Outcome: Progressing Note: Bed in lowest position. Side rails up x3. Fall risk bracelet on. Bed alarm on. Call light andbedside table within patient's reach. * Care Coordination - Holly Giordano RN - 05/26/2025 1:11 PM EDT [facility] Case Management/Social Work Department Progress Note Patient Information Patient Name: Laura Mallory Hospital day: 1 Inpatient/Observation: Inpatient Level of Care: MICU LOC Admit date: 05/25/2025 Admission diagnosis: SEPTIC SHOCK PMH: has a past medical history of Acute non-ST segment elevation myocardial infarction ([facility]) (02/26/2023), Anxiety, Atherosclerosis of coronary artery without angina pectoris (02/26/2023), COPD (chronic obstructive pulmonary disease) ([facility]), Heart failure with improved ejection fraction (HFimpEF) ([facility]), and Stress-induced cardiomyopathy (02/26/2023). PCP: MNAAS JENKINS MD Home Pharmacy: No Pharmacies Listed Medical Insurance Coverage: Payor: MEDICARE / Plan: MEDICARE A AND B / Product Type: Medicare / Other Pertinent Information Per MD, patient is not medically ready to discharge today. Patient remains critically ill in the MICU. Per chart review, patient is a new admission diagnosed with Septic Shock. Patient requiring oxygen 2 up to 4L NC. Patient is requiring Zosyn IV q 8 hrs, Patient required a Levophed IV gtt. Patientrequired IVFs, Dilaudid IV, and Zofran IV. CM/SW will continue to follow patient for discharge planning. Discharge Plan Anticipated discharge plan: TBD Anticipated discharge date: TBD vs 3-5 days, depending on patient's medical progression CM/SW will continue to follow and remain available for discharge planning needs. HOLLY GIORDANO RN [phone] * Plan of Care - Cristine Barrett CNP - 05/26/2025 11:18 AM EDT BRIEF GI NOTE: pt not seen. Chart reviewed and discussed with GI attending Ms. Laura Mallory is a 64 yo female with history of HFimpEF (LV EF julian 30-40% in 02/2023 in the setting of Takotsubo cardiomyopathy, most recently 60-65% in 05/2023), nonobstructive CAD, COPD (baseline room air), GERD, hx cholecystectomy, osteoarthritis, anxiety, chronic back pain, chart diagnosis of APARNA with no home nocturnal CPAP/BiPAP who presented to the hospital on 05/25/2025 as adirect admission from [facility] with shock and elevated liver enzymes. CT A/P from OSH preformed 05/25/2025 with post-cholecystectomy anatomy, intra and extrahepatic bileducts unremarkable. Pancreas is normal, no ductal dilation. No bowel obstruction. No ascites, pneumoperitoneum or drainable abscess. Trace right pleural effusions. Mild bibasilar subsegmental atelectasis. Lipase 6. T bili 2.9 (3.7), direct 2.02 (2.74), alk phos 361 (377), AST 342 (460), ALT 345 (395). Low suspicion for pancreatitis and cholangitis with normal CT appearance of pancreas and bile ductsand normal lipase. LFTs with mixed pattern of elevation- possibly secondary to severe sepsis, no evidence of obstruction on current imaging. Agree with hepatology consult for further evaluation of elevated LFTs Acute hepatitis panel in process Continue supportive care per ICU Cristine Barrett CNP Pancreas/Biliary team * Plan of Care - Denisse Juarez RN, RN - 05/26/2025 7:38 AM EDT Problem: Safety Goal: Patient will be injury free during hospitalization Description: Assess and monitor vitals signs, neurological status including level of consciousness and orientation. Assess patient's risk for falls and implement fall prevention plan of care and interventions per hospital policy. Ensure arm band on, uncluttered walking paths in room, adequate room lighting, call light and overbed table within reach, bed in low position, wheels locked, side rails up per policy, and non-skid footwear provided. Outcome: Progressing Problem: Potential for Compromised Skin Integrity Goal: Nutritional status is improving Description: Monitor and assess patient for malnutrition (ex- brittle hair, bruises, dry skin, paleskin and conjunctiva, muscle wasting, smooth red tongue, and disorientation). Collaborate with interdisciplinary team and initiate plan and interventions as ordered. Monitor patient's weight and dietary intake as ordered or per policy. Utilize nutrition screening tool and intervene per policy. Determine patient's food preferences and provide high-protein, high- caloric foods as appropriate. Outcome: Progressing Problem: Incontinence Goal: Perineal skin integrity is maintained or improved Description: Assess genitourinary system, perineal skin, labs (urinalysis), and history of incontinence to include past management, aggravating, and alleviating factors. Collaborate with interdisciplinary team and initiate plans and interventions as needed. Outcome: Progressing RN ensuring safety in the hospital environment. SP RN * Plan of Care - Jose L Cerda RN - 05/25/2025 8:00 PM EDT Problem: Potential for Compromised Skin Integrity Goal: Skin integrity is maintained or improved Description: Assess and monitor skin integrity. Identify patients at risk for skin breakdown on admission and per policy. Collaborate with interdisciplinary team and initiate plans and interventions as needed. Outcome: Progressing Note: Patient's skin has scattered bruising noted and a skin tear to the RFA noted with mepilex transfer dressing applied. Otherwise skin intact. Patient is able to turn and repositioned and is reassessed every two hours. Patient on low air loss mattress. Problem: High Fall Risk Precautions Goal: High Fall Risk Precautions Outcome: Progressing Note: Bed in lowest position. Side rails up x3. Fall risk bracelet on. Bed alarm on. Call light andbedside table within patient's reach. * Plan of Care - Kirt Crawford RN - 05/25/2025 7:07 PM EDT Problem: Patient will remain free of falls Goal: [place] Fall Precautions Outcome: Progressing documented in this encounter Plan of Treatment Pending Results Name Type Priority Associated Diagnoses Date /Time Iron Studies (Iron + TIBC) Lab Routine 05/26/2025 3:33 AM EDT Scheduled Orders Name Type Priority Associated Diagnoses Orde r Schedule Iron Studies (Iron + TIBC) Lab Routine AM Draw for 1 Oc currences starting 05/26/2025 until 05/26/2025 documented as of this encounter Procedures Procedure Name Priority Date/Time Associated Diagnosis Comments EKG - SCAN 05/29/2025 8:22 PM EDT YAHAIRA RHYTHM STRIP - SCAN 05/28/2025 8:55 AM EDT HEPATIC FUNCTION PANEL Routine 4:27 AM EDT RENAL FUNCTION PANEL W/EGFR Routine 05/28/2025 4:27 AM EDT CBC Routine 05/28/2025 4:27 AM EDT MAGNESIUM Routine 05/28/2025 4:27 AM EDT POC GLU MONITORING DEVICE Routine 05/27/2025 11:34 PM EDT STREP PNEUMO-LEGIONELLA URINE ANTIGEN Routine 05/27/2025 2:11 PM EDT POC GLU MONITORING DEVICE Routine 05/27/2025 1:14 PM EDT VENOUS BLOOD GAS, LINE/SYRINGE STAT 05/27/2025 1:11 PM EDT YAHAIRA RHYTHM STRIP - SCAN 05/27/2025 8:44 AM EDT HEPATIC FUNCTION PANEL Routine 12:41 AM EDT RENAL FUNCTION PANEL W/EGFR Routine 05/27/2025 12:41 AM EDT CBC Routine 05/27/2025 12:41 AM EDT MAGNESIUM Routine 05/27/2025 12:41 AM EDT HEPATITIS B CORE IGM Routine 05/26/2025 9:04 PM EDT HEPATITIS B CORE ANTIBODY Routine 05/26/2025 9:04 PM EDT YAHAIRA RHYTHM STRIP - SCAN 05/26/2025 7:02 PM EDT YAHAIRA RHYTHM STRIP - SCAN 05/26/2025 6:52 PM EDT HEPATIC FUNCTION PANEL STAT 3:02 PM EDT RENAL FUNCTION PANEL W/EGFR STAT 05/26/2025 3:02 PM EDT HEPATITIS B CORE ANTIBODY Routine 05/26/2025 3:02 PM EDT HEPATITIS A IGM Routine 05/26/2025 3:02 PM EDT HEPATITIS C ANTIBODY Routine 05/26/2025 3:02 PM EDT HEPATITIS B SURFACE ANTIBODY, QUANTITATIVE Routine 05/26/2025 3:02 PM EDT HEPATITIS B SURFACE ANTIGEN Routine 05/26/2025 3:02 PM EDT PROTIME-INR Routine 05/26/2025 3:02 PM EDT VENOUS BLOOD GAS, LINE/SYRINGE STAT 05/26/2025 2:49 PM EDT POC GLU MONITORING DEVICE Routine 05/26/2025 12:25 PM EDT LACTIC ACID STAT 05/26/2025 10:08 AM EDT RENAL FUNCTION PANEL W/EGFR STAT 05/26/2025 10:08 AM EDT ECHO COMPLETE W/ CONTRAST SHYLA 05/26/2025 8:56 AM EDT POC GLU MONITORING DEVICE Routine 05/26/2025 8:47 AM EDT VENOUS BLOOD GAS, LINE/SYRINGE STAT 05/26/2025 8:42 AM EDT YAHAIRA RHYTHM STRIP - SCAN 05/26/2025 7:41 AM EDT MRSA/STAPH AUREUS DNA - DIAGNOSTIC TESTING FOR PNEUMONIA Routine 05/26/2025 3:33 AM EDT HEPATIC FUNCTION PANEL Routine 3:33 AM EDT RENAL FUNCTION PANEL W/EGFR Routine 05/26/2025 3:33 AM EDT IRON STUDIES Routine 05/26/2025 3:33 AM EDT CBC Routine 05/26/2025 3:33 AM EDT MAGNESIUM Routine 05/26/2025 3:33 AM EDT FOLATE Routine 05/26/2025 3:33 AM EDT FERRITIN Routine 05/26/2025 3:33 AM EDT VITAMIN B12 Routine 05/26/2025 3:33 AM EDT HIGH SENSITIVITY TROPONIN STAT 05/26/2025 12:43 AM EDT NT-PROBNP/SACUBITRIL/V ALSARTAN Routine 05/26/2025 12:43 AM EDT GAMMA GT Routine 05/26/2025 12:43 AM EDT URINALYSIS W/RFL TO MICROSCOPIC Routine 05/25/2025 10:32 PM EDT URINE CULTURE Routine 05/25/2025 10:32 PM EDT ECG 12-LEAD (MUSE) STAT 05/25/2025 9: 52 PM EDT YAHAIRA RHYTHM STRIP - SCAN 05/25/2025 8:30 PM EDT YAHAIRA RHYTHM STRIP - SCAN 05/25/2025 8:22 PM EDT HCG URINE, QUALITATIVE Routine 8:09 PM EDT HIGH SENSITIVITY TROPONIN STAT 05/25/2025 7:21 PM EDT ABO/RH Routine 05/25/2025 7:21 PM EDT BLOOD CULTURE-PERIPHERAL Routine 05/25/2025 7:21 PM EDT BLOOD CULTURE-PERIPHERAL Routine 05/25/2025 7:21 PM EDT ANTIBODY SCREEN Routine 05/25/2025 7:21 PM EDT B NATRIURETIC PEPTIDE Routine 05/25/2025 7:21 PM EDT AMYLASE STAT 05/25/2025 7:21 PM EDT VENOUS BLOOD GAS, LINE/SYRINGE STAT 05/25/2025 7:20 PM EDT HEPATIC FUNCTION PANEL STAT 7:20 PM EDT LACTIC ACID STAT 05/25/2025 7:20 PM EDT RENAL FUNCTION PANEL W/EGFR STAT 05/25/2025 7:20 PM EDT PROTIME-INR STAT 05/25/2025 7:20 PM EDT CBC STAT 05/25/2025 7:20 PM EDT MAGNESIUM STAT 05/25/2025 7:20 PM EDT LIPASE STAT 05/25/2025 7:20 PM EDT AMMONIA STAT 05/25/2025 7:20 PM EDT ACETAMINOPHEN LEVEL STAT 05/25/2025 7 :20 PM EDT XR PORTABLE CHEST STAT 05/25/2025 7:1 0 PM EDT POC LACTATE Routine 05/25/2025 6:07 PM EDT POC TCO2 Routine 05/25/2025 6:07 PM EDT POC SODIUM Routine 05/25/2025 6:07 PM EDT POC POTASSIUM Routine 05/25/2025 6:07 PM EDT POC PO2 Routine 05/25/2025 6:07 PM EDT POC PCO2 Routine 05/25/2025 6:07 PM EDT POC O2 SAT Routine 05/25/2025 6:07 PM EDT POC HCO3 Routine 05/25/2025 6:07 PM EDT POC CHLORIDE Routine 05/25/2025 6:07 PM EDT POC BASE EXCESS Routine 05/25/2025 6:07 PM EDT POC ANION GAP Routine 05/25/2025 6:07 PM EDT POC SAMPLE TYPE Routine 05/25/2025 6:07 PM EDT POCT PH Routine 05/25/2025 6:07 PM EDT POCT HEMATOCRIT Routine 05/25/2025 6:07 PM EDT POCT CREATININE Routine 05/25/2025 6:07 PM EDT POCT CALCIUM, TOTAL Routine 05/25/2025 6 :07 PM EDT POCT GLUCOSE Routine 05/25/2025 6:07 PM EDT POCT HEMOGLOBIN Routine 05/25/2025 6:07 PM EDT documented in this encounter Results * EKG - scan (05/29/2025 8:22 PM EDT) us Scanning Uchhim SCAN DOCS - NO RESULTS Final Res ult * YAHAIRA Rhythm Strip - Scan (05/28/2025 8:55 AM EDT) us Scanning Uchhim SCAN DOCS - NO RESULTS Final Res ult * (ABNORMAL) Hepatic Function Panel, AM (05/28/2025 4:27 AM EDT) Total Bilirubin 0.7 0.0 - 1.5 mg/dL 05/28/2025 6:06 AM EDT [facility] Bilirubin, Direct 0.08 0.00 - 0.40 mg/dL 05/28/2025 6:06 AM EDT [facility] Comment:HEMOLYSIS EVIDENT. D IRECT BILIRUBIN CONCENTRATIONS MAY BE FALSELY DECREASED IN THE PRESENCE OF HEMOLYSIS. INTERPRET WITH CAUTION. AST 71(H) 13 - 39 U/L 05/28/2025 6:06 AM EDT [facility] ALT 137(H) 7 - 52 U/L 05/28/2025 6:06 AM EDT [facility] Alkaline Phosphatase 231(H) 36 - 125 U/L 05/28/2025 6:06 AM EDT [facility] Total Protein 6.3(L) 6.4 - 8.9 g/dL 05/28/2025 6:06 AM EDT [facility] Albumin 3.2(L) 3.5 - 5.7 g/dL 05/28/2025 6:06 AM EDT [facility] Bilirubin, Indirect 0.62 0.00 - 1.10 mg/dL 05/28/2025 6:06 AM EDT [facility] Plasma 05/28/2025 4:27 AM EDT 05/28/2025 5:27 AM EDT us Estrada Nelson DO LAB BLOOD ORDERABLES Final Resu lt [facility] [address] [place] [address], [facility] * (ABNORMAL) Renal Function Panel w/EGFR (05/28/2025 4:27 AM EDT) Sodium 139 133 - 146 mmol/L 05/28/2025 6:06 AM EDT [facility] Potassium 4.3 3.5 - 5.3 mmol/L 05/28/2025 6:06 AM EDT [facility] Comment:Hemolysis Present: R esults may be influenced artificially. Recommend recollection as clinically indicated. Chloride 108 98 - 110 mmol/L 05/28/2025 6:06 AM EDT [facility] CO2 22 21 - 33 mmol/L 05/28/2025 6:06 AM EDT [facility] Anion Gap 9 3 - 16 mmol/L 05/28/2025 6:06 AM EDT [facility] BUN 12 7 - 25 mg/dL 05/28/2025 6:06 AM EDT [facility] Creatinine 0.71 0.60 - 1.30 mg/dL 05/28/2025 6:06 AM EDT [facility] Glucose 81 70 - 100 mg/dL 05/28/2025 6:06 AM EDT [facility] Calcium 8.3(L) 8.6 - 10.3 mg/dL 05/28/2025 6:06 AM EDT [facility] Phosphorus 2.7 2.1 - 4.5 mg/dL 05/28/2025 6:06 AM EDT [facility] Comment:HEMOLYSIS EVIDENT. R ESULTS MAY BE INFLUENCED. Albumin 3.2(L) 3.5 - 5.7 g/dL 05/28/2025 6:06 AM EDT [facility] Osmolality, Calculated 287 278 - 305 mOsm/kg 05/28/2025 6:06 AM EDT [facility] EGFR >90 05/28/2025 6:06 AM EDT [facility] Comment: As of 2022, the estimated GFR is calculated using the 2020 Chronic Kidney Disease Epidemiology Collaboration (CKD-EPI) equation. In line with the NKF-ASN Task Force Recommendations, this equation does not include a coefficient for race. A single eGFR value is calculated for each patient. The reference interval is >60 mL/min/1.73m2. eGFR values greater than 90 will be reported as >90mL/min/1.73m2. Reference: Regan C, Rebeka M, Yvonne DC, Mata ND, Pancho [place], Sherri [place], et al. A Unifying Approach for GFR Estimation: Recommendations of the NKF-ASN Task Force on Reassessing the inclusion of Race in Diagnosing Kidney Disease. Am J Kidney Dis. 2020. GFR is estimated using creatinine, age, and sex. Patient's values should be interpreted as a trend. Below 90 mL/min/1.73m2, the patient may have renal disease. For additional information: www.kidney.org Plasma 05/28/2025 4:27 AM EDT 05/28/2025 5:27 AM EDT Estrada Nelson DO LAB BLOOD ORDERABLES Final Resu lt [facility] [address] * Magnesium (05/28/2025 4:27 AM EDT) Magnesium 2.0 1.5 - 2.5 mg/dL 05/28/2025 6:06 AM EDT [facility] Comment:HEMOLYSIS EVIDENT. R ESULTS MAY BE INFLUENCED. Plasma 05/28/2025 4:27 AM EDT 05/28/2025 5:27 AM EDT us Estrada Still DO LAB BLOOD ORDERABLES Final Resu lt [facility] [address] * (ABNORMAL) CBC (05/28/2025 4:27 AM EDT) Pathologist [facility] WBC 9.0 3.8 - 10.8 10E3/uL 05/28/2025 5:38 AM EDT [facility] RBC 3.02(L) 3.80 - 5.10 10E6/uL 05/28/2025 5:38 AM EDT [facility] Hemoglobin 9.2(L) 11.7 - 15.5 g/dL 05/28/2025 5:38 AM EDT [facility] Hematocrit 27.9(L) 35.0 - 45.0 % 05/28/2025 5:38 AM EDT [facility] MCV 92.6 80.0 - 100.0 fL 05/28/2025 5:38 AM EDT [facility] MCH 30.6 27.0 - 33.0 pg 05/28/2025 5:38 AM EDT [facility] MCHC 33.1 32.0 - 36.0 g/dL 05/28/2025 5:38 AM EDT [facility] RDW 18.2(H) 11.0 - 15.0 % 05/28/2025 5:38 AM EDT [facility] Platelets 235 140 - 400 10E3/uL 05/28/2025 5:38 AM EDT [facility] MPV 8.7 7.5 - 11.5 fL 05/28/2025 5:38 AM EDT [facility] Whole Blood 05/28/2025 4:27 AM EDT 05/28/2025 5:27 AM EDT us Estrada Nelson DO LAB BLOOD ORDERABLES Final Resu lt [facility] [address] * (ABNORMAL) POC Glucose Monitoring Device (05/27/2025 11:34 PM EDT) POC Glucose Monitoring Device 150(H) 70 - 100 mg/dL 05/27/2025 11:34 PM EDT [facility] Blood 05/27/2025 11:3 4 PM EDT 05/27/2025 11:34 PM EDT Willem Shin DO POINT OF CARE TEST ORDERABLE S Final Result Performing Organization Address City/[facility]/ZIP Co de Phone Number [facility] [address] [facility]. [address] * Strep Pneumo-Legionella Urine Antigen (05/27/2025 2:11 PM EDT) Strept Pneumo Ag Negative Negative 05/28/2025 3:11 AM EDT [facility] Legionella Antigen Negative Negative 05/28/2025 3:11 AM EDT [facility] Urine 05/27/2025 2:11 PM EDT 05/28/2025 2:05 AM EDT Narrative [facility] - 05/28/2025 3:11 AM EDT Positive indicates detection of either Streptococcus pneumoniae antigen or Legionella pneumophila serogroup 1 antigen. Negative results do not rule out pneumococcal infection or infection with L. pneumophila serogroup 1, other serogroups of L. pneumophila, or other Legionella species. Audi Yates MD URINE ORDERABLES Final Result Performing Organization Address [facility] Co de Phone Number [facility] [address] [facility]. [address] * POC Glucose Monitoring Device (05/27/2025 1:14 PM EDT) POC Glucose Monitoring Device 81 70 - 100 mg/dL 05/27/2025 1:15 PM EDT [facility] Blood 05/27/2025 1:14 PM EDT 05/27/2025 1:15 PM EDT Willem Shin DO POINT OF CARE TEST ORDERABLE S Final Result [facility] [address] * (ABNORMAL) Venous Blood Gas, Line/Syringe, STAT (05/27/2025 1:11 PM EDT) PH-Line Draw 7.27(L) 7.32 - 7.42 05/27/2025 1:21 PM EDT [facility] PCO2-Line Draw 50 41 - 51 mm Hg 05/27/2025 1:21 PM EDT [facility] PO2-Line Draw 44(H) 25 - 40 mm Hg 05/27/2025 1:21 PM EDT [facility] HCO3-Line Draw 21(L) 24 - 28 mmol/L 05/27/2025 1:21 PM EDT [facility] CO2 Content-Line Draw 25 25 - 29 mmol/L 05/27/2025 1:21 PM EDT [facility] Base Excess-Line Draw -4.0(L) -2.0 - 3.0 mmol/L 05/27/2025 1:21 PM EDT [facility] %HBO2-Line Draw 69.1 40.0 - 70.0 % 05/27/2025 1:21 PM EDT [facility] Carboxyhgb-Joi e Draw 1.1 % 05/27/2025 1:21 PM EDT [facility] Comment: CARBOXYHEMOGLOBIN (CO) REFERENCE RANGES: Non-Smokers: <2 % Smokers: <8 % TOXIC: >20 % Methemoglobin- Line Draw 0.0 0.0 - 1.5 % 05/27/2025 1:21 PM EDT [facility] Reduced Hemoglobin-Joi e Draw 29.8(H) 0.0 - 5.0 % 05/27/2025 1:21 PM EDT [facility] Venous, Line Draw 05/27/2025 1:11 PM EDT 05/27/2025 1:18 PM EDT us Estrada Demetri DO LAB BLOOD ORDERABLES Final Resu lt [facility] [address] [facility]. [address] * YAHAIRA Rhythm Strip - Scan (05/27/2025 8:44 AM EDT) us Scanning Uchhim SCAN DOCS - NO RESULTS Final Res ult * (ABNORMAL) Hepatic Function Panel, AM (05/27/2025 12:41 AM EDT) Total Bilirubin 0.9 0.0 - 1.5 mg/dL 05/27/2025 1:17 AM EDT [facility] Bilirubin, Direct 0.30 0.00 - 0.40 mg/dL 05/27/2025 1:17 AM EDT [facility] AST 171(H) 13 - 39 U/L 05/27/2025 1:17 AM EDT [facility] ALT 239(H) 7 - 52 U/L 05/27/2025 1:17 AM EDT [facility] Alkaline Phosphatase 295(H) 36 - 125 U/L 05/27/2025 1:17 AM EDT [facility] Total Protein 6.5 6.4 - 8.9 g/dL 05/27/2025 1:17 AM EDT [facility] Albumin 3.4(L) 3.5 - 5.7 g/dL 05/27/2025 1:17 AM EDT [facility] Bilirubin, Indirect 0.60 0.00 - 1.10 mg/dL 05/27/2025 1:17 AM EDT [facility] Plasma 05/27/2025 12:4 1 AM EDT 05/27/2025 12:45 AM EDT us Denisse Albert DO LAB BLOOD ORDERABLES Final Resul t [facility] [address] [id number], [facility] * Magnesium, AM (05/27/2025 12:41 AM EDT) Magnesium 2.1 1.5 - 2.5 mg/dL 05/27/2025 1:17 AM EDT [facility] Plasma 05/27/2025 12:4 1 AM EDT 05/27/2025 12:45 AM EDT us Denisse Albert DO LAB BLOOD ORDERABLES Final Resul t [facility] [address] [place] [address], [facility] * (ABNORMAL) Renal Function Panel w/EGFR (05/27/2025 12:41 AM EDT) Sodium 139 133 - 146 mmol/L 05/27/2025 1:17 AM EDT [facility] Potassium 4.4 3.5 - 5.3 mmol/L 05/27/2025 1:17 AM EDT [facility] Chloride 108 98 - 110 mmol/L 05/27/2025 1:17 AM EDT [facility] CO2 23 21 - 33 mmol/L 05/27/2025 1:17 AM EDT [facility] Anion Gap 8 3 - 16 mmol/L 05/27/2025 1:17 AM EDT [facility] BUN 16 7 - 25 mg/dL 05/27/2025 1:17 AM EDT [facility] Creatinine 0.91 0.60 - 1.30 mg/dL 05/27/2025 1:17 AM EDT [facility] Glucose 122(H) 70 - 100 mg/dL 05/27/2025 1:17 AM EDT [facility] Calcium 8.3(L) 8.6 - 10.3 mg/dL 05/27/2025 1:17 AM EDT [facility] Phosphorus 3.0 2.1 - 4.5 mg/dL 05/27/2025 1:17 AM EDT [facility] Albumin 3.4(L) 3.5 - 5.7 g/dL 05/27/2025 1:17 AM EDT [facility] Osmolality, Calculated 290 278 - 305 mOsm/kg 05/27/2025 1:17 AM EDT [facility] EGFR 70 05/27/2025 1:17 AM EDT [facility] Comment:As of 2022, the estimated GFR is calculated using the 2020 Chronic Kidney Disease Epidemiology Collaboration (CKD-EPI) equation. In line with the NKF-ASN Task Force Recommendations, this equation does not include a coefficient for race. A single eGFR value is calculated for each patient. The reference interval is >60 mL/min/1.73m2. eGFR values greater than 90 will be reported as >90mL/min/1.73m2. Reference: Regan C, Rebeka M, Yvonne DC, Mata ND, Pancho CA, Sherri LA, et al. A Unifying Approach for GFR Estimation: Recommendations of the NKF-ASN Task Force on Reassessing the inclusion of Race in Diagnosing Kidney Disease. Am J Kidney Dis. 2020. Plasma 05/27/2025 12:4 1 AM EDT 05/27/2025 12:45 AM EDT us Denisse Albert DO LAB BLOOD ORDERABLES Final Resul t [facility] [address] [id number], [facility] * (ABNORMAL) CBC, AM (05/27/2025 12:41 AM EDT) WBC 21.8(H) 3.8 - 10.8 10E3/uL 05/27/2025 12:54 AM EDT [facility] RBC 3.24(L) 3.80 - 5.10 10E6/uL 05/27/2025 12:54 AM EDT [facility] Hemoglobin 9.8(L) 11.7 - 15.5 g/dL 05/27/2025 12:54 AM EDT [facility] Hematocrit 30.1(L) 35.0 - 45.0 % 05/27/2025 12:54 AM EDT [facility] MCV 92.9 80.0 - 100.0 fL 05/27/2025 12:54 AM EDT [facility] MCH 30.3 27.0 - 33.0 pg 05/27/2025 12:54 AM EDT [facility] MCHC 32.6 32.0 - 36.0 g/dL 05/27/2025 12:54 AM EDT [facility] RDW 19.2(H) 11.0 - 15.0 % 05/27/2025 12:54 AM EDT [facility] Platelets 247 140 - 400 10E3/uL 05/27/2025 12:54 AM EDT [facility] MPV 8.7 7.5 - 11.5 fL 05/27/2025 12:54 AM EDT [facility] Whole Blood 05/27/2025 12:4 1 AM EDT 05/27/2025 12:45 AM EDT Denisse Albert DO LAB BLOOD ORDERABLES Final Resul t Performing Organization Address [facility] Co de Phone Number [facility] [address] [place] [address]. [address] * Hepatitis B Core IgM (05/26/2025 9:04 PM EDT) Hep B Core IgM Nonreactive Nonreactive 05/26/2025 10:32 PM EDT [facility] Serum 05/26/2025 9:04 PM EDT 05/26/2025 9:07 PM EDT [facility] - 05/26/2025 10:32 PM EDT IgM anti-HBc not detected. Does not exclude the possibility of exposure to or infection with HBV. Cookie Abdul MD LAB BLOOD ORDERABLES Final Resu lt Performing Organization Address [facility] Co de Phone Number [facility] [address] [place] [address]. [address] * (ABNORMAL) Hepatitis B Core Antibody (05/26/2025 9:04 PM EDT) Hep B Core Total Ab Reactive( A) Nonreactive 05/27/2025 12:02 AM EDT [facility] Comment: Health Department notified in accordance with reportable infectious disease guidelines. Health Department notified in accordance with reportable infectious disease guidelines. Serum 05/26/2025 9:04 PM EDT 05/26/2025 9:07 PM EDT Narrative [facility] - 05/27/2025 12:02 AM EDT A reactive final interpretation indicates presumptive evidence of HBV; anti-HBc antibodies were detected in the sample which suggests either on-going or previous HBV infection. us Cookie Abdul MD LAB BLOOD ORDERABLES Final Resu lt [facility] [address] * YAHAIRA Rhythm Strip - Scan (05/26/2025 7:02 PM EDT) us Scanning [place]chhim SCAN DOCS - NO RESULTS Final Res ult * YAHAIRA Rhythm Strip - Scan (05/26/2025 6:52 PM EDT) us Scanning Uchhim SCAN DOCS - NO RESULTS Final Res ult * Protime-INR (05/26/2025 3:02 PM EDT) Protime 14.6 12.1 - 15.1 seconds 05/26/2025 4:00 PM EDT [facility] INR 1.1 0.9 - 1.1 05/26/2025 4:00 PM EDT [facility] Comment: RECOMMENDED THERAPEUTIC RANGES USING INR : Stable oral anticoagulant therapy: 2.0 - 3.0 Mechanical prosthetic heart valve: 2.5 - 3.5 Recurrent acute myocardial infarction: 2.5 - 3.5 Plasma 05/26/2025 3:02 PM EDT 05/26/2025 3:06 PM EDT us Estrada Nelson DO LAB BLOOD ORDERABLES Final Resu lt Performing Organization Address City/[facility]/ZIP Co de Phone Number [facility] [address] [facility]. [address] * (ABNORMAL) Hepatitis B Surface Antibody, Quantitative (05/26/2025 3:02 PM EDT) Hep B S Ab Reactive( A) Nonreactive 05/26/2025 7:37 PM EDT [facility] HBSAB NUMBER >500.00(H ) 0.00 - 7.99 mIU/mL 05/26/2025 7:37 PM EDT [facility] Serum 05/26/2025 3:02 PM EDT 05/26/2025 3:06 PM EDT [facility] - 05/26/2025 7:37 PM EDT Individual is considered immune to HBV infection. us Lewis Connelly MD LAB BLOOD ORDERABLES Final Resul t Performing Organization Address [facility] de Phone Number [facility] [address] [place] [address]. [address] * (ABNORMAL) Hepatitis B Core Antibody (05/26/2025 3:02 PM EDT) Hep B Core Total Ab Reactive( A) Nonreactive 05/26/2025 11:30 PM EDT [facility] Comment: Health Department notified in accordance with reportable infectious disease guidelines. Health Department notified in accordance with reportable infectious disease guidelines. Serum 05/26/2025 3:02 PM EDT 05/26/2025 3:06 PM EDT [facility] - 05/26/2025 11:30 PM EDT A reactive final interpretation indicates presumptive evidence of HBV; anti-HBc antibodies were detected in the sample which suggests either on-going or previous HBV infection. us Lewis Connelly MD LAB BLOOD ORDERABLES Final Resul t Performing Organization Address [facility] de Phone Number [address] * Hepatitis A IgM (05/26/2025 3:02 PM EDT) Hep A IgM Nonreactive Nonreactive 05/26/2025 7:36 PM EDT [facility] Serum 05/26/2025 3:02 PM EDT 05/26/2025 3:06 PM EDT [facility] - 05/26/2025 7:36 PM EDT IgM anti-HAV not detected. Does not exclude the possibility of exposure to or infection with HAV. Levels of IgM anti-HAV may be below the cut-off in early infection. us Lewis Connelly MD LAB BLOOD ORDERABLES Final Resul t Performing Organization Address City/[facility] Co de Phone Number [facility] [address] [facility]. [address] * Hepatitis C Antibody (05/26/2025 3:02 PM EDT) HCV Ab Nonreactive Nonreactive 05/26/2025 7:36 PM EDT [facility] Comment:Health Department no tified in accordance with reportable infectious disease guidelines. Serum 05/26/2025 3:02 PM EDT 05/26/2025 3:06 PM EDT [facility] - 05/26/2025 7:36 PM EDT Antibodies to HCV not detected; does not exclude the possibility of exposure to HCV. us Lewis Connelly MD LAB BLOOD ORDERABLES Final Resul t Performing Organization Address [facility] Co de Phone Number [facility] [address] [facility]. [address] * Hepatitis B Surface Antigen (05/26/2025 3:02 PM EDT) Hep B Surface Ag Nonreactive Nonreactive 05/26/2025 7:36 PM EDT [facility] Comment:Health Department no tified in accordance with reportable infectious disease guidelines. Serum 05/26/2025 3:02 PM EDT 05/26/2025 3:06 PM EDT [facility] - 05/26/2025 7:36 PM EDT Specimen is considered negative for HBsAg. us Lewis Connelly MD LAB BLOOD ORDERABLES Final Resul t Performing Organization Address City/[facility]/ZIP Co de Phone Number [facility] [address] [facility]. [address] * (ABNORMAL) Hepatic Function Panel, STAT (05/26/2025 3:02 PM EDT) Total Bilirubin 1.2 0.0 - 1.5 mg/dL 05/26/2025 5:18 PM EDT [facility] Bilirubin, Direct 0.60(H) 0.00 - 0.40 mg/dL 05/26/2025 5:18 PM EDT [facility] AST 223(H) 13 - 39 U/L 05/26/2025 5:18 PM EDT [facility] ALT 269(H) 7 - 52 U/L 05/26/2025 5:18 PM EDT [facility] Alkaline Phosphatase 303(H) 36 - 125 U/L 05/26/2025 5:18 PM EDT [facility] Total Protein 6.4 6.4 - 8.9 g/dL 05/26/2025 5:18 PM EDT [facility] Albumin 3.3(L) 3.5 - 5.7 g/dL 05/26/2025 5:18 PM EDT [facility] Bilirubin, Indirect 0.60 0.00 - 1.10 mg/dL 05/26/2025 5:18 PM EDT [facility] Plasma 05/26/2025 3:02 PM EDT 05/26/2025 3:06 PM EDT us Estrada Nelson DO LAB BLOOD ORDERABLES Final Resu lt [facility] [address] [place] [address], [facility] * (ABNORMAL) Renal Function Panel w/EGFR, STAT (05/26/2025 3:02 PM EDT) Sodium 136 133 - 146 mmol/L 05/26/2025 5:18 PM EDT [facility] Potassium 4.1 3.5 - 5.3 mmol/L 05/26/2025 5:18 PM EDT [facility] Chloride 107 98 - 110 mmol/L 05/26/2025 5:18 PM EDT [facility] CO2 21 21 - 33 mmol/L 05/26/2025 5:18 PM EDT [facility] Anion Gap 8 3 - 16 mmol/L 05/26/2025 5:18 PM EDT [facility] BUN 18 7 - 25 mg/dL 05/26/2025 5:18 PM EDT [facility] Creatinine 0.96 0.60 - 1.30 mg/dL 05/26/2025 5:18 PM EDT [facility] Glucose 118(H) 70 - 100 mg/dL 05/26/2025 5:18 PM EDT [facility] Calcium 8.7 8.6 - 10.3 mg/dL 05/26/2025 5:18 PM EDT [facility] Phosphorus 3.8 2.1 - 4.5 mg/dL 05/26/2025 5:18 PM EDT [facility] Albumin 3.3(L) 3.5 - 5.7 g/dL 05/26/2025 5:18 PM EDT [facility] Osmolality, Calculated 285 278 - 305 mOsm/kg 05/26/2025 5:18 PM EDT [facility] EGFR 66 05/26/2025 5:18 PM EDT [facility] Comment:As of 2022, the estimated GFR is calculated using the 2020 Chronic Kidney Disease Epidemiology Collaboration (CKD-EPI) equation. In line with the NKF-ASN Task Force Recommendations, this equation does not include a coefficient for race. A single eGFR value is calculated for each patient. The reference interval is >60 mL/min/1.73m2. eGFR values greater than 90 will be reported as >90mL/min/1.73m2. Reference: Regan C, Rebeka M, Yvonne DC, Mata ND, Pancho CA, Sherri LA, et al. A Unifying Approach for GFR Estimation: Recommendations of the NKF-ASN Task Force on Reassessing the inclusion of Race in Diagnosing Kidney Disease. Am J Kidney Dis. 2020. Plasma 05/26/2025 3:02 PM EDT 05/26/2025 3:06 PM EDT us Estrada Demetri DO LAB BLOOD ORDERABLES Final Resu lt [facility] [address] [place] [address], [facility] * (ABNORMAL) Venous Blood Gas, Line/Syringe, STAT (05/26/2025 2:49 PM EDT) PH-Line Draw 7.25(L) 7.32 - 7.42 05/26/2025 3:10 PM EDT [facility] PCO2-Line Draw 49 41 - 51 mm Hg 05/26/2025 3:10 PM EDT [facility] PO2-Line Draw 55(H) 25 - 40 mm Hg 05/26/2025 3:10 PM EDT [facility] HCO3-Line Draw 20(L) 24 - 28 mmol/L 05/26/2025 3:10 PM EDT [facility] CO2 Content-Line Draw 23(L) 25 - 29 mmol/L 05/26/2025 3:10 PM EDT [facility] Base Excess-Line Draw -5.6(L) -2.0 - 3.0 mmol/L 05/26/2025 3:10 PM EDT [facility] %HBO2-Line Draw 84.7(H) 40.0 - 70.0 % 05/26/2025 3:10 PM EDT [facility] Carboxyhgb-Joi e Draw 0.8 % 05/26/2025 3:10 PM EDT [facility] Comment: CARBOXYHEMOGLOBIN (CO) REFERENCE RANGES: Non-Smokers: <2 % Smokers: <8 % TOXIC: >20 % Methemoglobin- Line Draw 0.0 0.0 - 1.5 % 05/26/2025 3:10 PM EDT [facility] Reduced Hemoglobin-Joi e Draw 14.5(H) 0.0 - 5.0 % 05/26/2025 3:10 PM EDT [facility] Venous, Line Draw 05/26/2025 2:49 PM EDT 05/26/2025 3:06 PM EDT Denisse Albert DO LAB BLOOD ORDERABLES Final Resul t [facility] [address] [id number], [facility] * (ABNORMAL) POC Glucose Monitoring Device (05/26/2025 12:25 PM EDT) POC Glucose Monitoring Device 124(H) 70 - 100 mg/dL 05/26/2025 12:26 PM EDT [facility] Blood 05/26/2025 12:2 5 PM EDT 05/26/2025 12:26 PM EDT Willem Shin DO POINT OF CARE TEST ORDERABLE S Final Result [facility] [address] [place] [address], [facility] * (ABNORMAL) Renal Function Panel w/EGFR, STAT (05/26/2025 10:08 AM EDT) Sodium 139 133 - 146 mmol/L 05/26/2025 10:52 AM EDT [facility] Potassium 4.7 3.5 - 5.3 mmol/L 05/26/2025 10:52 AM EDT [facility] Comment:Hemolysis Present: R esults may be influenced artificially. Recommend recollection as clinically indicated. Chloride 110 98 - 110 mmol/L 05/26/2025 10:52 AM EDT [facility] CO2 20(L) 21 - 33 mmol/L 05/26/2025 10:52 AM EDT [facility] Anion Gap 9 3 - 16 mmol/L 05/26/2025 10:52 AM EDT [facility] BUN 18 7 - 25 mg/dL 05/26/2025 10:52 AM EDT [facility] Creatinine 0.89 0.60 - 1.30 mg/dL 05/26/2025 10:52 AM EDT [facility] Glucose 108(H) 70 - 100 mg/dL 05/26/2025 10:52 AM EDT [facility] Calcium 8.7 8.6 - 10.3 mg/dL 05/26/2025 10:52 AM EDT [facility] Phosphorus 4.2 2.1 - 4.5 mg/dL 05/26/2025 10:52 AM EDT [facility] Albumin 3.3(L) 3.5 - 5.7 g/dL 05/26/2025 10:52 AM EDT [facility] Osmolality, Calculated 290 278 - 305 mOsm/kg 05/26/2025 10:52 AM EDT [facility] EGFR 72 05/26/2025 10:52 AM EDT [facility] Comment:As of 2022, the estimated GFR is calculated using the 2020 Chronic Kidney Disease Epidemiology Collaboration (CKD-EPI) equation. In line with the NKF-ASN Task Force Recommendations, this equation does not include a coefficient for race. A single eGFR value is calculated for each patient. The reference interval is >60 mL/min/1.73m2. eGFR values greater than 90 will be reported as >90mL/min/1.73m2. Reference: Regan C, Rebeka M, Yvonne DC, Mata ND, Pancho CA, Sherri LA, et al. A Unifying Approach for GFR Estimation: Recommendations of the NKF-ASN Task Force on Reassessing the inclusion of Race in Diagnosing Kidney Disease. Am J Kidney Dis. 2020. Plasma 05/26/2025 10:0 8 AM EDT 05/26/2025 10:15 AM EDT us Estrada Still DO LAB BLOOD ORDERABLES Final Resu lt Performing Organization Address [facility]/ZIP Co de Phone Number [facility] [address] [place] [address] * Lactic Acid (05/26/2025 10:08 AM EDT) Lactate 0.8 0.5 - 2.2 mmol/L 05/26/2025 10:40 AM EDT [facility] Plasma 05/26/2025 10:0 8 AM EDT 05/26/2025 10:17 AM EDT us Estrada Nelson DO LAB BLOOD ORDERABLES Final Resu lt Performing Organization Address City/[facility]/ZIP Co de Phone Number [facility] [address] [place] [address] * ECHO COMPLETE W/ CONTRAST (05/26/2025 8:56 AM EDT) Anatomical Region Laterality Modality Chest Ultrasound 05/26/2025 8:13 AM EDT Narrative 05/26/2025 9:39 AM EDT * [facility]* [address] [place] [address] Transthoracic Echocardiogram Patient: Laura Mallory Room: [facility] Height: 65in MR Number: [id number] : 1960 Weight: 271lb Account: [id number] Gender: F BP: 91 / 59 Study Date: 05/26/2025 Age: 64 BSA: 2.25m^2 Referring physician: Cookie Abdul Interpreting physician: Eliu Burns MD PERFORMING Eliu Burns MD DYE ROOM HELPER Marion Adam ORDERING Cookie Abdul REFERRING Chantell, Cookie ATTENDING Eliud Lopezpark Willem Marquezn Procedure:TRANSTHORACIC ECHO (TTE) Order: Accession COMPLETE Number:[id number] Indications: Heart Failure unspecified (I50.9). PMH: Coronary artery disease. Chronic obstructive pulmonary disease. 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 Takotsubo Cardiomyopathy. PMH: Myocardial infarction. Study data: Height: 65in. 165.1cm. Weight: 271lb. 122.9kg. The previous study was not available, so comparison was made to the report of 06/13/2023. Study status: Routine. Procedure: A transthoracic echocardiogram was performed. Image quality was suboptimal. The study was technically limited due to restricted patient mobility and body habitus. Scanning was performed from the parasternal, apical, and subcostal acoustic windows. Intravenous contrast (Optison) was administered. Transthoracic echocardiogram. M-mode, complete 2D, complete spectral Doppler, and color Doppler. Birthdate: Patient birthdate: 1960. Age: Patient is 64year(s) old. Sex: gender: female. Body mass index: BMI: 45.1kg/m^2. Body surface area: BSA: 2.25m^2. Blood pressure: 91/59 Patient status: Inpatient. Study date: Study date: 05/26/2025. Study time: 08:13 AM. Location: Echo laboratory. Study Conclusions - Left ventricle: The cavity size is normal. Wall thickness is normal. Systolic function is normal. The estimated ejection fraction is 55-60%. Although no diagnostic regional wall motion abnormality is identified, this possibility cannot be completely excluded on the basis of this study. Left ventricular diastolic function parameters are normal. - Right ventricle: Systolic function is normal by TAPSE. TAPSE: 1.9cm.Tricuspid annular systolic velocity: 14.5cm/s. - Pulmonary arteries: Systolic pressure could not be accurately estimated. Cardiac Anatomy Left ventricle: - The cavity size is normal. Wall thickness is normal. Systolic function is normal. The estimated ejection fraction is 55-60%. Although no diagnostic regional wall motion abnormality is identified, this possibility cannot be completely excluded on the basis of this study. - Left ventricular diastolic function parameters are normal. Aorta: Aortic root: The root is normal in size. Ascending aorta: The vessel is mildly dilated and 3.6cm diameter. Aortic valve: - Not well visualized. Velocity is within the normal range. There is no stenosis. There is no regurgitation. The mean systolic gradient is 5mm Hg. The peak systolic gradient is 10mm Hg. The LVOT to aortic valve VTI ratio is 0.79. The ratio of LVOT to aortic valve peak velocity is 0.79. The ratio of LVOT to aortic valve mean velocity is 0.62. Mitral valve: - The valve is structurally normal. Mobility is not restricted. Inflow velocity is within the normal range. There is no evidence for stenosis. There is no regurgitation. The peak diastolic gradient is 3mm Hg. Left atrium: The atrium is normal in size. Pulmonary artery: - Not well visualized. Systolic pressure could not be accurately estimated. Main pulmonary artery: - Right ventricle: - The cavity size is normal. Wall thickness is normal. Systolic function is normal by TAPSE. TAPSE: 1.9cm.Tricuspid annular systolic velocity: 14.5cm/s. Pulmonic valve: - Velocity is within the normal range. There is no evidence for stenosis. There is no regurgitation. Tricuspid valve: - The valve is structurally normal. Inflow velocity is within the normal range. There is no regurgitation. Right atrium: The atrium is normal in size. Pericardium: - There is no pericardial effusion. Systemic veins: Inferior vena cava: The IVC is normal-sized. The IVC is normal-sized. Respirophasic diameter changes are in the normal range (> 50%), consistent with normal central venous pressure. Measurements Left ventricle Value Ref E', lat darrick, TDI (N) 12.0 cm/sec >=10.0 E/e', lat darrick, TDI (N) 7 <=13 A', lat darrick, TDI 13.6 cm/sec --------- E'/a', lat darrick, TDI 0.88 --------- S', lat darrick, TDI 13.6 cm/sec --------- E', med darrick, TDI (N) 7.9 cm/sec >=7.0 E/e', med darrick, TDI 10 --------- A', med darrick, TDI 12.9 cm/sec --------- E'/a', med darrick, TDI 0.62 --------- S', med darrick, TDI 12.1 cm/sec --------- E', avg, TDI 10.0 cm/sec --------- E/e', avg, TDI (N) 8 <=14 LVOT Value Ref Peak sherice, S 1.17 m/sec --------- Mean sherice, S 0.62 m/sec --------- Peak grad, S 5 mm Hg --------- Right ventricle Value Ref TAPSE, MM (N) 1.9 cm >=1.7 S' lateral (N) 14.5 cm/sec >=9.5 RVOT Value Ref Peak v, S 0.77 m/sec --------- Mean v, S 0.57 m/sec --------- Left atrium Value Ref Area ES, A4C (H) 23 cm^2 <=20 Area/bsa ES, A4C 10.31 cm^2/m^2 --------- Vol, ES, 1-p A4C (H) 59 ml 22 - 52 Vol/bsa, ES, 1-p A4C (N) 26 ml/m^2 11 - 40 Aortic valve Value Ref Peak v, S 1.5 m/sec --------- Mean v, S 1 m/sec --------- Mean grad, S 5 mm Hg --------- Peak grad, S 10 mm Hg --------- LVOT/AV, VTI ratio 0.79 --------- LVOT/AV, Vpeak ratio 0.79 --------- LVOT/AV, Vmean ratio 0.62 --------- Mitral valve Value Ref Peak E 0.81 m/sec --------- Peak A 1.01 m/sec --------- Decel time 240 ms --------- Peak grad, D 3 mm Hg --------- Peak E/A ratio 0.8 --------- Pulmonic valve Value Ref Peak v, S 1 m/sec --------- Mean sherice, S 0.64 m/sec --------- Aortic root Value Ref Root diam (N) 3.5 cm 2.9 - 4.3 Root diam/bsa 1.6 cm/m^2 --------- Ascending aorta Value Ref AAo AP diam, S 3.6 cm --------- AAo AP diam/bsa, S 1.6 cm/m^2 --------- Main pulmonary artery Value Ref Mean grad 2 mm Hg --------- Inferior vena cava Value Ref Diam (N) 1.9 cm <=2.1 Legend: (L) and (H) joanne values outside specified reference range. (N) denton values inside specified reference range. Reviewed and confirmed by Eliu Burns MD [id number] Procedure Note Eliu Burns MD - 05/26/2025 * [facility]* [address] [place] [address] Transthoracic Echocardiogram Patient: Laura Mallory Room: [facility] Height: 65in MR Number: [id number] : 1960 Weight: 271lb Account: [id number] Gender: F BP: 91 / 59 Study Date: 05/26/2025 Age: 64 BSA: 2.25m^2 Referring physician: Cookie Abdul Interpreting physician: Eliu Burns MD PERFORMING Eliu Burns MD DYE ROOM HELPER Marion Adam ORDERING Cookie Abdul REFERRING Cookie Abdul ATTENDING Eliud LopezWillem nickn Procedure:TRANSTHORACIC ECHO (TTE) Order: Accession COMPLETE Number:[id number] Indications: Heart Failure unspecified (I50.9). PMH: Coronary artery disease. Chronic obstructive pulmonary disease. 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 Takotsubo Cardiomyopathy. PMH: Myocardialinfarction. Study data: Height: 65in. 165.1cm. Weight: 271lb. 122.9kg. The previous study was not available, so comparison was made to the report of06/13/2023. Study status: Routine. Procedure: A transthoracic echocardiogram was performed. Image quality was suboptimal. The study was technicallylimited due to restricted patient mobility and body habitus. Scanning wasperformed from the parasternal, apical, and subcostal acoustic windows.Intravenous contrast (Optison) was administered. Transthoracicechocardiogram. M-mode, complete 2D, complete spectral Doppler, and color Doppler. Birthdate: Patient birthdate: 1960. Age: Patient is 64year(s)old. Sex: gender: female. Body mass index: BMI: 45.1kg/m^2. Body surface area: BSA: 2.25m^2. Blood pressure: 91/59 Patientstatus: Inpatient. Study date: Study date: 05/26/2025. Study time: 08:13 AM. Location: Echo laboratory. Study Conclusions - Left ventricle: The cavity size is normal. Wall thickness is normal. Systolic function is normal. The estimated ejection fraction is55-60%. Although no diagnostic regional wall motion abnormality is identified, this possibility cannot be completely excluded on the basis of thisstudy. Left ventricular diastolic function parameters are normal. - Right ventricle: Systolic function is normal by TAPSE. TAPSE: 1.9cm.Tricuspid annular systolic velocity: 14.5cm/s. - Pulmonary arteries: Systolic pressure could not be accuratelyestimated. Cardiac Anatomy Left ventricle: - The cavity size is normal. Wall thickness is normal. Systolic functionis normal. The estimated ejection fraction is 55-60%. Although nodiagnostic regional wall motion abnormality is identified, this possibility cannotbe completely excluded on the basis of this study. - Left ventricular diastolic function parameters are normal. Aorta: Aortic root: The root is normal in size. Ascending aorta: The vessel is mildly dilated and 3.6cm diameter. Aortic valve: - Not well visualized. Velocity is within the normal range. There is no stenosis. There is no regurgitation. The mean systolic gradient is 5mmHg. The peak systolic gradient is 10mm Hg. The LVOT to aortic valve VTIratio is 0.79. The ratio of LVOT to aortic valve peak velocity is 0.79. The ratio of LVOT to aortic valve mean velocity is 0.62. Mitral valve: - The valve is structurally normal. Mobility is not restricted. Inflow velocity is within the normal range. There is no evidence forstenosis. There is no regurgitation. The peak diastolic gradient is 3mm Hg. Left atrium: The atrium is normal in size. Pulmonary artery: - Not well visualized. Systolic pressure could not be accuratelyestimated. Main pulmonary artery: - Right ventricle: - The cavity size is normal. Wall thickness is normal. Systolic functionis normal by TAPSE. TAPSE: 1.9cm.Tricuspid annular systolic velocity: 14.5cm/s. Pulmonic valve: - Velocity is within the normal range. There is no evidence forstenosis. There is no regurgitation. Tricuspid valve: - The valve is structurally normal. Inflow velocity is within the normal range. There is no regurgitation. Right atrium: The atrium is normal in size. Pericardium: - There is no pericardial effusion. Systemic veins: Inferior vena cava: The IVC is normal-sized. The IVC is normal-sized. Respirophasic diameter changes are in the normal range (> 50%),consistent with normal central venous pressure. Measurements Left ventricle Value Ref E', lat darrick, TDI (N) 12.0 cm/sec >=10.0 E/e', lat darrick, TDI (N) 7 <=13 A', lat darrick, TDI 13.6 cm/sec --------- E'/a', lat darrick, TDI 0.88 --------- S', lat darrick, TDI 13.6 cm/sec --------- E', med darrick, TDI (N) 7.9 cm/sec >=7.0 E/e', med darrick, TDI 10 --------- A', med darrick, TDI 12.9 cm/sec --------- E'/a', med darrick, TDI 0.62 --------- S', med darrick, TDI 12.1 cm/sec --------- E', avg, TDI 10.0 cm/sec --------- E/e', avg, TDI (N) 8 <=14 LVOT Value Ref Peak sherice, S 1.17 m/sec --------- Mean sherice, S 0.62 m/sec --------- Peak grad, S 5 mm Hg --------- Right ventricle Value Ref TAPSE, MM (N) 1.9 cm >=1.7 S' lateral (N) 14.5 cm/sec >=9.5 RVOT Value Ref Peak v, S 0.77 m/sec --------- Mean v, S 0.57 m/sec --------- Left atrium Value Ref Area ES, A4C (H) 23 cm^2 <=20 Area/bsa ES, A4C 10.31 cm^2/m^2 --------- Vol, ES, 1-p A4C (H) 59 ml 22 - 52 Vol/bsa, ES, 1-p A4C (N) 26 ml/m^2 11 - 40 Aortic valve Value Ref Peak v, S 1.5 m/sec --------- Mean v, S 1 m/sec --------- Mean grad, S 5 mm Hg --------- Peak grad, S 10 mm Hg --------- LVOT/AV, VTI ratio 0.79 --------- LVOT/AV, Vpeak ratio 0.79 --------- LVOT/AV, Vmean ratio 0.62 --------- Mitral valve Value Ref Peak E 0.81 m/sec --------- Peak A 1.01 m/sec --------- Decel time 240 ms --------- Peak grad, D 3 mm Hg --------- Peak E/A ratio 0.8 --------- Pulmonic valve Value Ref Peak v, S 1 m/sec --------- Mean sherice, S 0.64 m/sec --------- Aortic root Value Ref Root diam (N) 3.5 cm 2.9 - 4.3 Root diam/bsa 1.6 cm/m^2 --------- Ascending aorta Value Ref AAo AP diam, S 3.6 cm --------- AAo AP diam/bsa, S 1.6 cm/m^2 --------- Main pulmonary artery Value Ref Mean grad 2 mm Hg --------- Inferior vena cava Value Ref Diam (N) 1.9 cm <=2.1 Legend: (L) and (H) joanne values outside specified reference range. (N) denton values inside specified reference range. Reviewed and confirmed by Eliu Burns MD [id number] Cookie Abdul MD CV ECHO ORDERABLES Final Result * (ABNORMAL) POC Glucose Monitoring Device (05/26/2025 8:47 AM EDT) [facility] POC Glucose Monitoring Device 106(H) 70 - 100 mg/dL 05/26/2025 8:47 AM EDT [facility] Blood 05/26/2025 8:47 AM EDT 05/26/2025 8:47 AM EDT us Willem Shin DO POINT OF CARE TEST ORDERABLE S Final Result [facility] [address] [place], [place] [address] * (ABNORMAL) Venous Blood Gas, Line/Syringe, STAT (05/26/2025 8:42 AM EDT) PH-Line Draw 7.19(LL) 7.32 - 7.42 05/26/2025 9:10 AM EDT [facility] Comment: The critical result was called to, and read back by, licensed caregiver JELENA COYNE PCO2-Line Draw 51 41 - 51 mm Hg 05/26/2025 9:10 AM EDT [facility] PO2-Line Draw 23(L) 25 - 40 mm Hg 05/26/2025 9:10 AM EDT [facility] HCO3-Line Draw 17(L) 24 - 28 mmol/L 05/26/2025 9:10 AM EDT [facility] CO2 Content-Line Draw 21(L) 25 - 29 mmol/L 05/26/2025 9:10 AM EDT [facility] Base Excess-Line Draw -8.5(L) -2.0 - 3.0 mmol/L 05/26/2025 9:10 AM EDT [facility] %HBO2-Line Draw 29.0(L) 40.0 - 70.0 % 05/26/2025 9:10 AM EDT [facility] Carboxyhgb-Joi e Draw 1.2 % 05/26/2025 9:10 AM EDT [facility] Comment: CARBOXYHEMOGLOBIN (CO) REFERENCE RANGES: Non-Smokers: <2 % Smokers: <8 % TOXIC: >20 % Methemoglobin- Line Draw 0.0 0.0 - 1.5 % 05/26/2025 9:10 AM EDT [facility] Reduced Hemoglobin-Joi e Draw 69.9(H) 0.0 - 5.0 % 05/26/2025 9:10 AM EDT [facility] Venous, Line Draw 05/26/2025 8:42 AM EDT 05/26/2025 8:59 AM EDT us Estrada Nelson DO LAB BLOOD ORDERABLES Final Resu lt [facility] [address] [place] [address], [facility] * YAHAIRA Rhythm Strip - Scan (05/26/2025 7:41 AM EDT) us Scanning Uchhim SCAN DOCS - NO RESULTS Final Res ult * (ABNORMAL) Iron Studies (Iron + TIBC) (05/26/2025 3:33 AM EDT) Iron 38(L) 50 - 212 ug/dL 05/26/2025 6:07 AM EDT [facility] % Iron Saturation 12.2(L) 15.0 - 55.0 % 05/26/2025 6:07 AM EDT [facility] TIBC 311 265 - 497 ug/dL 05/26/2025 6:07 AM EDT [facility] Serum 05/26/2025 3:33 AM EDT 05/26/2025 3:40 AM EDT Cookie Abdul MD LAB BLOOD ORDERABLES Final Resu lt [facility] [address] [facility]. [address] * Vitamin B12 (05/26/2025 3:33 AM EDT) Vitamin B-12 730 180 - 914 pg/mL 05/26/2025 4:42 AM EDT [facility] Serum 05/26/2025 3:33 AM EDT 05/26/2025 3:38 AM EDT Cookie Abdul MD LAB BLOOD ORDERABLES Final Resu lt [facility] [address] [facility]. [address] * Folate (Folic Acid) (05/26/2025 3:33 AM EDT) Folic Acid 8.60 5.90 - 24.80 ng/mL 05/26/2025 4:41 AM EDT [facility] Serum 05/26/2025 3:33 AM EDT 05/26/2025 3:38 AM EDT us Cookie Abdul MD LAB BLOOD ORDERABLES Final Resu lt [facility] [address] * Ferritin (05/26/2025 3:33 AM EDT) Ferritin 250.6 11.0 - 306.8 ng/mL 05/26/2025 4:38 AM EDT [facility] Serum 05/26/2025 3:33 AM EDT 05/26/2025 3:38 AM EDT us oCokie Abdul MD LAB BLOOD ORDERABLES Final Resu lt Performing Organization Address [facility] Co de Phone Number [facility] [address] [facility]. [address] * (ABNORMAL) MRSA/Staph aureus DNA ??? Diagnostic testing for pneumonia (05/26/2025 3:33 AM EDT) MRSA, PCR Negative Negative 05/26/2025 7:00 AM EDT [facility] Staph Aureus, PCR Positive(A) Negative 05/26/2025 7:00 AM EDT [facility] Comment:Test method is a FDA approved amplified DNA assay. Nares Swab BOTH ANTERIOR NARES / Unknown 05/26/2025 3:33 AM EDT 05/26/2025 5:14 AM EDT Narrative [facility] - 05/26/2025 7:00 AM EDT Diagnosis of MRSA Pneumonia->Yes - Place [id number] (this order) us Cookie Abdul MD MICROBIOLOGY - GENERAL ORDERABL ES Final Result Performing Organization Address [facility] Co de Phone Number [facility] [address] [facility]. [address] * (ABNORMAL) Hepatic Function Panel (05/26/2025 3:33 AM EDT) Total Bilirubin 2.9(H) 0.0 - 1.5 mg/dL 05/26/2025 4:36 AM EDT [facility] Bilirubin, Direct 2.02(H) 0.00 - 0.40 mg/dL 05/26/2025 4:36 AM EDT [facility] AST 342(H) 13 - 39 U/L 05/26/2025 4:36 AM EDT [facility] ALT 345(H) 7 - 52 U/L 05/26/2025 4:36 AM EDT [facility] Alkaline Phosphatase 361(H) 36 - 125 U/L 05/26/2025 4:36 AM EDT [facility] Total Protein 6.7 6.4 - 8.9 g/dL 05/26/2025 4:36 AM EDT [facility] Albumin 3.5 3.5 - 5.7 g/dL 05/26/2025 4:36 AM EDT [facility] Bilirubin, Indirect 0.88 0.00 - 1.10 mg/dL 05/26/2025 4:36 AM EDT [facility] Plasma 05/26/2025 3:33 AM EDT 05/26/2025 3:38 AM EDT us Cookie Abdul MD LAB BLOOD ORDERABLES Final Resu lt [facility] [address] [place] [address], [facility] * (ABNORMAL) Renal Function Panel w/EGFR (05/26/2025 3:33 AM EDT) Sodium 140 133 - 146 mmol/L 05/26/2025 4:36 AM EDT [facility] Potassium 4.5 3.5 - 5.3 mmol/L 05/26/2025 4:36 AM EDT [facility] Chloride 108 98 - 110 mmol/L 05/26/2025 4:36 AM EDT [facility] CO2 20(L) 21 - 33 mmol/L 05/26/2025 4:36 AM EDT [facility] Anion Gap 12 3 - 16 mmol/L 05/26/2025 4:36 AM EDT [facility] BUN 18 7 - 25 mg/dL 05/26/2025 4:36 AM EDT [facility] Creatinine 1.15 0.60 - 1.30 mg/dL 05/26/2025 4:36 AM EDT [facility] Glucose 112(H) 70 - 100 mg/dL 05/26/2025 4:36 AM EDT [facility] Calcium 9.3 8.6 - 10.3 mg/dL 05/26/2025 4:36 AM EDT [facility] Phosphorus 4.0 2.1 - 4.5 mg/dL 05/26/2025 4:36 AM EDT [facility] Albumin 3.5 3.5 - 5.7 g/dL 05/26/2025 4:36 AM EDT [facility] Osmolality, Calculated 293 278 - 305 mOsm/kg 05/26/2025 4:36 AM EDT [facility] EGFR 53 05/26/2025 4:36 AM EDT [facility] Comment:As of 2022, the estimated GFR is calculated using the 2020 Chronic Kidney Disease Epidemiology Collaboration (CKD-EPI) equation. In line with the NKF-ASN Task Force Recommendations, this equation does not include a coefficient for race. A single eGFR value is calculated for each patient. The reference interval is >60 mL/min/1.73m2. eGFR values greater than 90 will be reported as >90mL/min/1.73m2. Reference: Regan C, Rebeka M, Yvonne [place], Mata [place], Pancho [place], Sherri [place], et al. A Unifying Approach for GFR Estimation: Recommendations of the NKF-ASN Task Force on Reassessing the inclusion of Race in Diagnosing Kidney Disease. Am J Kidney Dis. 2020. Plasma 05/26/2025 3:33 AM EDT 05/26/2025 3:38 AM EDT us Cookie Abdul MD LAB BLOOD ORDERABLES Final Resu lt [facility] [address] [place] [address], [facility] * Magnesium (05/26/2025 3:33 AM EDT) Magnesium 2.3 1.5 - 2.5 mg/dL 05/26/2025 4:36 AM EDT [facility] Plasma 05/26/2025 3:33 AM EDT 05/26/2025 3:38 AM EDT us Cookie Abdul MD LAB BLOOD ORDERABLES Final Resu lt [facility] [address] [place] [id number] * (ABNORMAL) CBC (05/26/2025 3:33 AM EDT) WBC 29.1(H) 3.8 - 10.8 10E3/uL 05/26/2025 4:27 AM EDT [facility] RBC 3.31(L) 3.80 - 5.10 10E6/uL 05/26/2025 4:27 AM EDT [facility] Hemoglobin 10.4(L) 11.7 - 15.5 g/dL 05/26/2025 4:27 AM EDT [facility] Hematocrit 30.6(L) 35.0 - 45.0 % 05/26/2025 4:27 AM EDT [facility] MCV 92.3 80.0 - 100.0 fL 05/26/2025 4:27 AM EDT [facility] MCH 31.3 27.0 - 33.0 pg 05/26/2025 4:27 AM EDT [facility] MCHC 33.9 32.0 - 36.0 g/dL 05/26/2025 4:27 AM EDT [facility] RDW 18.5(H) 11.0 - 15.0 % 05/26/2025 4:27 AM EDT [facility] Platelets 260 140 - 400 10E3/uL 05/26/2025 4:27 AM EDT [facility] MPV 8.9 7.5 - 11.5 fL 05/26/2025 4:27 AM EDT [facility] Whole Blood 05/26/2025 3:33 AM EDT 05/26/2025 3:38 AM EDT us Cookie Abdul MD LAB BLOOD ORDERABLES Final Resu lt [facility] [address] * (ABNORMAL) Gamma GT (05/26/2025 12:43 AM EDT) GGT 307(H) 9 - 64 U/L 05/26/2025 1:37 AM EDT [facility] Serum 05/26/2025 12:4 3 AM EDT 05/26/2025 12:52 AM EDT us Cookie Abdul MD LAB BLOOD ORDERABLES Final Resu lt Performing Organization Address [facility] Co de Phone Number [facility] [address] * (ABNORMAL) NT-proBNP/Sacubitril/Valsartan (05/26/2025 12:43 AM EDT) NT Pro BNP 1142(H) 0 - 301 pg/mL 05/27/2025 7:40 AM EDT [facility] Comment: The following cut-points have been suggested for the use of proBNP for the diagnostic evaluation of heart failure (HF) in patients with acute dyspnea: Modality Age Optimal Cut (years) Point Diagnosis (rule in HF) <50 450 pg/mL 50 - 75 900 pg/mL >75 1800 pg/mL Exclusion (rule out HF) Age independent 300 pg/mL Serum 05/26/2025 12:4 3 AM EDT 05/27/2025 8:07 AM EDT Narrative [facility] - 05/27/2025 8:07 AM EDT PERFORMED AT: [facility] [id number] ASSET PROTECTION OFFICER: Dave Escudero, PhD PHONE: [phone] us Cookie Abdul MD LAB BLOOD ORDERABLES Final Resu lt Performing Organization Address [facility] Co de Phone Number [facility] [address] [facility]. [address] * (ABNORMAL) High Sensitivity Troponin (05/26/2025 12:43 AM EDT) High Sensitivity Troponin 17(H) 0 - 14 ng/L 05/26/2025 1:28 AM EDT [facility] Serum 05/26/2025 12:4 3 AM EDT 05/26/2025 12:56 AM EDT us Cookie Abdul MD LAB BLOOD ORDERABLES Final Resu lt Performing Organization Address [facility] Co de Phone Number [facility] [address] [facility]. [address] * Urine culture (05/25/2025 10:32 PM EDT) Culture Result No Growth After 2 Days [facility] Newly Placed Palafox Urine URINE SPECIMEN / Unknown 05/25/2025 10:32 PM EDT 05/25/2025 11:33 PM EDT us Cookie Abdul MD MICROBIOLOGY - GENERAL ORDERABL ES Final Result Performing Organization Address [facility] Co de Phone Number [facility] [address] [facility]. [address] * (ABNORMAL) Urinalysis w/Rfl to Microscopic (05/25/2025 10:32 PM EDT) Color, UA Yellow Yellow,Straw 05/25/2025 10:55 PM EDT [facility] Clarity, UA Cloudy(A) Clear 05/25/2025 10:55 PM EDT [facility] Specific [place], UA >1.035(H) 1.005 - 1.035 05/25/2025 10:55 PM EDT [facility] pH, UA 6.0 5.0 - 8.0 05/25/2025 10:55 PM EDT [facility] Protein, UA 30(A) Negative mg/dL 05/25/2025 10:55 PM EDT [facility] Glucose, UA Negative Negative mg/dL 05/25/2025 10:55 PM EDT [facility] Ketones, UA Negative Negative mg/dL 05/25/2025 10:55 PM EDT [facility] Bilirubin, UA Negative Negative 05/25/2025 10:55 PM EDT [facility] Blood, UA Moderate(A) Negative 05/25/2025 10:55 PM EDT [facility] Nitrite, UA Negative Negative 05/25/2025 10:55 PM EDT [facility] Urobilinogen, UA 3.0(H) 0.2 - 1.9 mg/dL 05/25/2025 10:55 PM EDT [facility] Leukocyte Esterase, UA Negative Negative 05/25/2025 10:55 PM EDT [facility] RBC, UA 41(H) 0 - 3 /HPF 05/25/2025 10:55 PM EDT [facility] WBC, UA 1 0 - 5 /HPF 05/25/2025 10:55 PM EDT [facility] Squam Epithel, UA 1 0 - 5 /HPF 05/25/2025 10:55 PM EDT [facility] Bacteria, UA Rare(A) None Seen /HPF 05/25/2025 10:55 PM EDT [facility] Urine 05/25/2025 10:3 2 PM EDT 05/25/2025 10:43 PM EDT us Cookie Abdul MD URINE ORDERABLES Final Result [facility] [address] [place] [address], [facility] * ECG 12 lead (MUSE) (05/25/2025 9:52 PM EDT) 05/25/2025 9:52 PM EDT Narrative MUSE - 05/26/2025 10:45 AM EDT Ventricular Rate: 68 BPM Atrial Rate: 68 BPM P-R Interval: 198 ms QRS Duration: 80 ms QT: 446 ms QTc: 474 ms P [place]: 58 degrees R [place]: -28 degrees T [place]: 6 degrees Diagnosis Line: NORMAL SINUS RHYTHM ^ LOW VOLTAGE QRS COMPLEXES ^ BORDERLINE ECG ^ No previous ECGs available ^ Confirmed by Conner DONATO MD ([id number]) on 05/26/2025 10:45:34 AM us Denisse Juan Antonioy DO ECG ORDERABLES Final Result Performing Organization Address [facility] Co de Phone Number MUSE * YAHAIRA Rhythm Strip - Scan (05/25/2025 8:30 PM EDT) us Scanning Uchhim SCAN DOCS - NO RESULTS Final Res ult * YAHAIRA Rhythm Strip - Scan (05/25/2025 8:22 PM EDT) us Scanning Uchhim SCAN DOCS - NO RESULTS Final Res ult * HCG Urine, Qualitative (05/25/2025 8:09 PM EDT) hCG Qualitative -Clinitek Negative Negative 05/25/2025 8:30 PM EDT [facility] Urine 05/25/2025 8:09 PM EDT 05/25/2025 8:14 PM EDT us Denisse Albert DO URINE ORDERABLES Final Result Performing Organization Address [facility] de Phone Number [facility] [address] * (ABNORMAL) B Natriuretic Peptide (05/25/2025 7:21 PM EDT) BNP 162(H) 0 - 100 pg/mL 05/25/2025 8:31 PM EDT [facility] Comment: BNP may be increased in the presence of sacubitril/valsartan (Entresto). Please interpret accordingly. Plasma 05/25/2025 7:21 PM EDT 05/25/2025 7:44 PM EDT Narrative [facility] - 05/25/2025 8:31 PM EDT The presence of high concentrations of biotin may cause falsely lowered BNP results. Biotin interference may be seen if an individual is taking >5 mg biotin per day. Interpret BNP results in the context of the patient's clinical presentation. Denisse Albert [employer] LAB BLOOD ORDERABLES Final Resul t Performing Organization Address City/[facility] Co de Phone Number [facility] [address] [facility]. [address] * (ABNORMAL) High Sensitivity Troponin (05/25/2025 7:21 PM EDT) [facility] High Sensitivity Troponin 26(H) 0 - 14 ng/L 05/25/2025 8:27 PM EDT [facility] Serum 05/25/2025 7:21 PM EDT 05/25/2025 7:56 PM EDT Denisse Albert [employer] LAB BLOOD ORDERABLES Final Resul t Performing Organization Address [facility] Co de Phone Number [facility] [address] [facility]. [address] * Amylase (05/25/2025 7:21 PM EDT) [facility] Amylase 22 16 - 117 U/L 05/25/2025 8:23 PM EDT [facility] Serum 05/25/2025 7:21 PM EDT 05/25/2025 7:56 PM EDT Denisse Albert LAB BLOOD ORDERABLES Final Resul t Performing Organization Address [facility] Co de Phone Number [facility] [address] [facility]. [address] * Antibody Screen (05/25/2025 7:21 PM EDT) [facility] Antibody Screen Negative 05/25/2025 8:23 PM EDT [facility] Blood 05/25/2025 7:21 PM EDT 05/25/2025 7:45 PM EDT Narrative [facility] - 05/25/2025 8:28 PM EDT Testing performed by [facility] Denisse Albert DO BLOOD BANK TEST ORDERABLES Final Result [facility] [address] * ABO/Rh (05/25/2025 7:21 PM EDT) ABO Grouping O 05/25/2025 8:07 PM EDT [facility] Rh Type Negative 05/25/2025 8:07 PM EDT [facility] Blood 05/25/2025 7:21 PM EDT 05/25/2025 7:45 PM EDT Denisse Albert DO BLOOD BANK TEST ORDERABLES Final Result Performing Organization Address [facility] Co de Phone Number [facility] [address] [facility]. [address] * #2 Blood culture-Peripheral site 2 (05/25/2025 7:21 PM EDT) Culture Result No Growth After 5 Days [facility] Blood BLOOD SPECIMEN / Unknown 05/25/2025 7:21 PM EDT 05/25/2025 8:07 PM EDT Denisse Albert DO MICROBIOLOGY - GENERAL ORDERABLE S Final Result Performing Organization Address City/[facility]/ZIP Co de Phone Number [facility] [address] [facility]. [address] * #1 Blood culture-Peripheral site 1 (05/25/2025 7:21 PM EDT) Culture Result No Growth After 5 Days [facility] Blood BLOOD SPECIMEN / Unknown 05/25/2025 7:21 PM EDT 05/25/2025 8:07 PM EDT Denisse Roosevelt LUNDBERG MICROBIOLOGY - GENERAL ORDERABLE S Final Result [facility] [address] * Lipase (05/25/2025 7:20 PM EDT) Pathologist [facility] Lipase 6 4 - 82 U/L 05/25/2025 8:2 3 PM EDT [facility] Plasma 05/25/2025 7:20 PM EDT 05/25/2025 7:56 PM EDT us Denisse Juan Antoniomontse DO LAB BLOOD ORDERABLES Final Resul t [facility] [address] * (ABNORMAL) Venous Blood Gas, Line/Syringe, STAT (05/25/2025 7:20 PM EDT) Pathologist [facility] PH-Line Draw 7.25(L) 7.32 - 7.42 05/25/2025 7:29 PM EDT [facility] PCO2-Line Draw 43 41 - 51 mm Hg 05/25/2025 7:29 PM EDT [facility] PO2-Line Draw 52(H) 25 - 40 mm Hg 05/25/2025 7:29 PM EDT [facility] HCO3-Line Draw 18(L) 24 - 28 mmol/L 05/25/2025 7:29 PM EDT [facility] CO2 Content-Line Draw 20(L) 25 - 29 mmol/L 05/25/2025 7:29 PM EDT [facility] Base Excess-Line Draw -7.9(L) -2.0 - 3.0 mmol/L 05/25/2025 7:29 PM EDT [facility] %HBO2-Line Draw 78.1(H) 40.0 - 70.0 % 05/25/2025 7:29 PM EDT [facility] Carboxyhgb-Joi e Draw 1.0 % 05/25/2025 7:29 PM EDT [facility] Comment: CARBOXYHEMOGLOBIN (CO) REFERENCE RANGES: Non-Smokers: <2 % Smokers: <8 % TOXIC: >20 % Methemoglobin- Line Draw 0.2 0.0 - 1.5 % 05/25/2025 7:29 PM EDT [facility] Reduced Hemoglobin-Joi e Draw 20.7(H) 0.0 - 5.0 % 05/25/2025 7:29 PM EDT [facility] Venous, Line Draw 05/25/2025 7:20 PM EDT 05/25/2025 7:26 PM EDT [facility] [employer] [facility] BLOOD ORDERABLES Final Resul t Performing Organization Address City/[facility] Co de Phone Number [facility] [address] [place] [address] * Lactic Acid, STAT (05/25/2025 7:20 PM EDT) Lactate 0.9 0.5 - 2.2 mmol/L 05/25/2025 8:03 PM EDT [facility] Plasma 05/25/2025 7:20 PM EDT 05/25/2025 7:44 PM EDT Denisse Albert [employer] LAB BLOOD ORDERABLES Final Resul t Performing Organization Address [facility] de Phone Number [facility] [address] [place] [address]. [address] * Ammonia (NH3), STAT (05/25/2025 7:20 PM EDT) Ammonia 71 27 - 90 ug/dL 05/25/2025 8:04 PM EDT [facility] Plasma 05/25/2025 7:20 PM EDT 05/25/2025 7:44 PM EDT Denisse Albert [employer] LAB BLOOD ORDERABLES Final Resul t Performing Organization Address [facility] de Phone Number [facility] [address] [place] [address]. [address] * (ABNORMAL) Acetaminophen Level (Tylenol), STAT (05/25/2025 7:20 PM EDT) Acetaminophen Level <10(L) 10 - 30 ug/mL 05/25/2025 8:04 PM EDT [facility] Serum 05/25/2025 7:20 PM EDT 05/25/2025 7:44 PM EDT Denisse Albert [employer] LAB BLOOD ORDERABLES Final Resul t Performing Organization Address [facility] Co de Phone Number [facility] [address] [place] [address]. [address] * Protime-INR, STAT (05/25/2025 7:20 PM EDT) Protime 14.8 12.1 - 15.1 seconds 05/25/2025 8:12 PM EDT [facility] INR 1.1 0.9 - 1.1 05/25/2025 8:12 PM EDT [facility] Comment: RECOMMENDED THERAPEUTIC RANGES USING INR : Stable oral anticoagulant therapy: 2.0 - 3.0 Mechanical prosthetic heart valve: 2.5 - 3.5 Recurrent acute myocardial infarction: 2.5 - 3.5 Plasma 05/25/2025 7:20 PM EDT 05/25/2025 7:56 PM EDT Denisse Albert [employer] LAB BLOOD ORDERABLES Final Resul t Performing Organization Address [facility] Co de Phone Number [facility] [address] [place] [address]. [address] * (ABNORMAL) Hepatic Function Panel, STAT (05/25/2025 7:20 PM EDT) Total Bilirubin 3.7(H) 0.0 - 1.5 mg/dL 05/25/2025 8:23 PM EDT [facility] Bilirubin, Direct 2.74(H) 0.00 - 0.40 mg/dL 05/25/2025 8:23 PM EDT [facility] AST 460(H) 13 - 39 U/L 05/25/2025 8:23 PM EDT [facility] ALT 395(H) 7 - 52 U/L 05/25/2025 8:23 PM EDT [facility] Alkaline Phosphatase 377(H) 36 - 125 U/L 05/25/2025 8:23 PM EDT [facility] Total Protein 6.5 6.4 - 8.9 g/dL 05/25/2025 8:23 PM EDT [facility] Albumin 3.6 3.5 - 5.7 g/dL 05/25/2025 8:23 PM EDT [facility] Bilirubin, Indirect 0.96 0.00 - 1.10 mg/dL 05/25/2025 8:23 PM EDT [facility] Plasma 05/25/2025 7:20 PM EDT 05/25/2025 7:56 PM EDT Denisse Juan [employer] LAB BLOOD ORDERABLES Final Resul t [facility] [address] * Magnesium, STAT (05/25/2025 7:20 PM EDT) Magnesium 2.3 1.5 - 2.5 mg/dL 05/25/2025 8:23 PM EDT [facility] Plasma 05/25/2025 7:20 PM EDT 05/25/2025 7:56 PM EDT Denisse Albert [employer] LAB BLOOD ORDERABLES Final Resul t [facility] [address] * (ABNORMAL) Renal Function Panel w/EGFR, STAT (05/25/2025 7:20 PM EDT) Sodium 140 133 - 146 mmol/L 05/25/2025 8:23 PM EDT [facility] Potassium 4.0 3.5 - 5.3 mmol/L 05/25/2025 8:23 PM EDT [facility] Chloride 108 98 - 110 mmol/L 05/25/2025 8:23 PM EDT [facility] CO2 21 21 - 33 mmol/L 05/25/2025 8:23 PM EDT [facility] Anion Gap 11 3 - 16 mmol/L 05/25/2025 8:23 PM EDT [facility] BUN 21 7 - 25 mg/dL 05/25/2025 8:23 PM EDT [facility] Creatinine 1.22 0.60 - 1.30 mg/dL 05/25/2025 8:23 PM EDT [facility] Glucose 185(H) 70 - 100 mg/dL 05/25/2025 8:23 PM EDT [facility] Calcium 8.1(L) 8.6 - 10.3 mg/dL 05/25/2025 8:23 PM EDT [facility] Phosphorus 3.8 2.1 - 4.5 mg/dL 05/25/2025 8:23 PM EDT [facility] Albumin 3.6 3.5 - 5.7 g/dL 05/25/2025 8:23 PM EDT [facility] Osmolality, Calculated 298 278 - 305 mOsm/kg 05/25/2025 8:23 PM EDT [facility] EGFR 49 05/25/2025 8:23 PM EDT [facility] Comment:As of 2022, the estimated GFR is calculated using the 2020 Chronic Kidney Disease Epidemiology Collaboration (CKD-EPI) equation. In line with the NKF-ASN Task Force Recommendations, this equation does not include a coefficient for race. A single eGFR value is calculated for each patient. The reference interval is >60 mL/min/1.73m2. eGFR values greater than 90 will be reported as >90mL/min/1.73m2. Reference: Regan C, Rebeka M, Yvonne DC, Mata ND, Pancho [place], Sherri [place], et al. A Unifying Approach for GFR Estimation: Recommendations of the NKF-ASN Task Force on Reassessing the inclusion of Race in Diagnosing Kidney Disease. Am J Kidney Dis. 2020. Plasma 05/25/2025 7:20 PM EDT 05/25/2025 7:56 PM EDT us Denisse Albert DO LAB BLOOD ORDERABLES Final Resul t [facility] [address] * (ABNORMAL) CBC, STAT (05/25/2025 7:20 PM EDT) WBC 38.7(H) 3.8 - 10.8 10E3/uL 05/25/2025 7:53 PM EDT [facility] RBC 3.38(L) 3.80 - 5.10 10E6/uL 05/25/2025 7:53 PM EDT [facility] Hemoglobin 10.3(L) 11.7 - 15.5 g/dL 05/25/2025 7:53 PM EDT [facility] Hematocrit 31.6(L) 35.0 - 45.0 % 05/25/2025 7:53 PM EDT [facility] MCV 93.3 80.0 - 100.0 fL 05/25/2025 7:53 PM EDT [facility] MCH 30.4 27.0 - 33.0 pg 05/25/2025 7:53 PM EDT [facility] MCHC 32.6 32.0 - 36.0 g/dL 05/25/2025 7:53 PM EDT [facility] RDW 18.7(H) 11.0 - 15.0 % 05/25/2025 7:53 PM EDT [facility] Platelets 279 140 - 400 10E3/uL 05/25/2025 7:53 PM EDT [facility] MPV 8.7 7.5 - 11.5 fL 05/25/2025 7:53 PM EDT [facility] Whole Blood 05/25/2025 7:20 PM EDT 05/25/2025 7:44 PM EDT us Denisse Albert DO LAB BLOOD ORDERABLES Final Resul t [facility] [address] * X-ray Portable Chest (05/25/2025 7:10 PM EDT) Anatomical Region Laterality Modality Chest Radiographic Destiny ging 05/25/2025 7:00 PM EDT Impressions 05/25/2025 7:24 PM EDT IMPRESSION: Streaky left basilar airspace disease, atelectasis versus pneumonia. Report Verified by: Silvestre Greenwood MD at 05/25/2025 7:24 PM EDT Narrative 05/25/2025 7:24 PM EDT EXAM: XR PORTABLE CHEST INDICATION: Dyspnea, unspecified TECHNIQUE: 1 view of the chest. COMPARISON: None. FINDINGS: Medical Devices: None. Heart and Mediastinum: Cardiomediastinal silhouette is within normal limits. The aorta is highly tortuous. Lungs and Pleura: Streaky left basilar airspace disease. Right lung is grossly clear. No visible pneumothorax or large pleural effusion. Bones and soft tissues: No acute abnormalities. Bilateral glenohumeral arthrosis. Procedure Note Bruno Greenwood MD - 05/25/2025 EXAM: XR PORTABLE CHEST INDICATION: Dyspnea, unspecified TECHNIQUE: 1 view of the chest. COMPARISON: None. FINDINGS: Medical Devices: None. Heart and Mediastinum: Cardiomediastinal silhouette is within normallimits. The aorta is highly tortuous. Lungs and Pleura: Streaky left basilar airspace disease. Right lung isgrossly clear. No visible pneumothorax or large pleural effusion. Bones and soft tissues: No acute abnormalities. Bilateral glenohumeralarthrosis. IMPRESSION: Streaky left basilar airspace disease, atelectasis versus pneumonia. Report Verified by: Silvestre Greenwood MD at 05/25/2025 7:24 PM EDT Denisse Albert DO IMG DIAGNOSTIC IMAGING ORDERABLE S Final Result * POC Sample Type (05/25/2025 6:07 PM EDT) POC Sample Type Venous 05/26/2025 5:58 AM EDT [facility] Blood, Venous 05/25/2025 6:0 7 PM EDT 05/26/2025 5:58 AM EDT Willem Shin DO POINT OF CARE TEST ORDERABLE S Final Result [facility] [address] * POC Anion Gap (05/25/2025 6:07 PM EDT) POC Anion Gap, Venous 15 3 - 16 mmol/L 05/26/2025 5:58 AM EDT [facility] Blood, Venous 05/25/2025 6:0 7 PM EDT 05/26/2025 5:58 AM EDT Willem Shin DO POINT OF CARE TEST ORDERABLE S Final Result [facility] [address] * POC creatinine (05/25/2025 6:07 PM EDT) POC Creatinine 1.27 0.60 - 1.30 mg/dL 05/26/2025 5:58 AM EDT [facility] Blood, Venous 05/25/2025 6:0 7 PM EDT 05/26/2025 5:58 AM EDT Willem Shin DO POINT OF CARE TEST ORDERABLE S Final Result [facility] [address] * POC Chloride (05/25/2025 6:07 PM EDT) Pathologist [facility] POC Chloride 107 98 - 110 mmol/L 05/26/2025 5:58 AM EDT [facility] Blood, Venous 05/25/2025 6:0 7 PM EDT 05/26/2025 5:58 AM EDT Willem Shin DO POINT OF CARE TEST ORDERABLE S Final Result [facility] [address] * (ABNORMAL) POC Hemoglobin (05/25/2025 6:07 PM EDT) POC Hemoglobin 11.6(L) 12.0 - 16.0 g/dL 05/26/2025 5:58 AM EDT [facility] Blood, Venous 05/25/2025 6:0 7 PM EDT 05/26/2025 5:58 AM EDT us Willem Shin DO POINT OF CARE TEST ORDERABLE S Final Result [facility] [address] * (ABNORMAL) POC hematocrit (05/25/2025 6:07 PM EDT) Pathologist [facility] POC Hematocrit 34.0(L) 35 - 45 % 05/26/2025 5:58 AM EDT [facility] Blood, Venous 05/25/2025 6:0 7 PM EDT 05/26/2025 5:58 AM EDT Willem Shin DO POINT OF CARE TEST ORDERABLE S Final Result Performing Organization Address City/[facility]/ZIP Co de Phone Number [facility] [address] [facility]. [address] * POC Lactate (05/25/2025 6:07 PM EDT) POC Lactate 0.92 0.50 - 2.20 mmol/L 05/26/2025 5:58 AM EDT [facility] Blood, Venous 05/25/2025 6:0 7 PM EDT 05/26/2025 5:58 AM EDT Willem Shin DO POINT OF CARE TEST ORDERABLE S Final Result [facility] [address] * (ABNORMAL) POC Glucose (05/25/2025 6:07 PM EDT) Pathologist [facility] POC Glucose, Venous 246(H) 70 - 100 mg/dL 05/26/2025 5:58 AM EDT [facility] Blood, Venous 05/25/2025 6:0 7 PM EDT 05/26/2025 5:58 AM EDT us Willem Shin DO POINT OF CARE TEST ORDERABLE S Final Result [facility] [address] [place] [address]. [address] * POC Ionized Calcium (05/25/2025 6:07 PM EDT) [facility] POC Ionized Calcium 4.50 4.50 - 5.30 mg/dL 05/26/2025 5:58 AM EDT [facility] Blood, Venous 05/25/2025 6:0 7 PM EDT 05/26/2025 5:58 AM EDT Willem Shin DO POINT OF CARE TEST ORDERABLE S Final Result Performing Organization Address [facility] Co de Phone Number [facility] [address] [facility]. [address] * POC Potassium (05/25/2025 6:07 PM EDT) [facility] POC Potassium 4.0 3.5 - 5.3 mmol/L 05/26/2025 5:58 AM EDT [facility] Blood, Venous 05/25/2025 6:0 7 PM EDT 05/26/2025 5:58 AM EDT Willem Shin DO POINT OF CARE TEST ORDERABLE S Final Result Performing Organization Address City/[facility] Co de Phone Number [facility] [address] [facility]. [address] * POC Sodium (05/25/2025 6:07 PM EDT) [facility] POC Sodium 140 136 - 146 mmol/L 05/26/2025 5:58 AM EDT [facility] Blood, Venous 05/25/2025 6:0 7 PM EDT 05/26/2025 5:58 AM EDT Willem Shin DO POINT OF CARE TEST ORDERABLE S Final Result [facility] [address] [facility]. [address] * (ABNORMAL) POC TCO2 (05/25/2025 6:07 PM EDT) POC TCO2, Venous 19(L) 25 - 29 mmol/L 05/26/2025 5:58 AM EDT [facility] Blood, Venous 05/25/2025 6:0 7 PM EDT 05/26/2025 5:58 AM EDT Willem Shin DO POINT OF CARE TEST ORDERABLE S Final Result Performing Organization Address City/[facility]/ZIP Co de Phone Number [facility] [address] [facility]. [address] * (ABNORMAL) POC O2 SAT (05/25/2025 6:07 PM EDT) POC O2 Saturation, Venous 77(L) 95 - 98 % 05/26/2025 5:58 AM EDT [facility] Blood, Venous 05/25/2025 6:0 7 PM EDT 05/26/2025 5:58 AM EDT Willem Shin DO POINT OF CARE TEST ORDERABLE S Final Result [facility] [address] [facility]. [address] * (ABNORMAL) POC Base Excess (05/25/2025 6:07 PM EDT) POC Base Excess, Venous -8(L) -2 - 3 mmol/L 05/26/2025 5:58 AM EDT [facility] Blood, Venous 05/25/2025 6:0 7 PM EDT 05/26/2025 5:58 AM EDT Willem Shin DO POINT OF CARE TEST ORDERABLE S Final Result [facility] [address] * (ABNORMAL) POC HCO3 (05/25/2025 6:07 PM EDT) POC HCO3, Venous 18(L) 24 - 28 mmol/L 05/26/2025 5:58 AM EDT [facility] Blood, Venous 05/25/2025 6:0 7 PM EDT 05/26/2025 5:58 AM EDT Willem Shin DO POINT OF CARE TEST ORDERABLE S Final Result Performing Organization Address City/[facility]/ZIP Co de Phone Number [facility] [address] [facility]. [address] * (ABNORMAL) POC PO2 (05/25/2025 6:07 PM EDT) POC pO2, Venous 45(H) 25 - 40 mm Hg 05/26/2025 5:58 AM EDT [facility] Blood, Venous 05/25/2025 6:0 7 PM EDT 05/26/2025 5:58 AM EDT Willem Shin DO POINT OF CARE TEST ORDERABLE S Final Result [facility] [address] [facility]. [address] * (ABNORMAL) POC PCO2 (05/25/2025 6:07 PM EDT) POC pCO2, Venous 36(L) 41 - 51 mm Hg 05/26/2025 5:58 AM EDT [facility] Blood, Venous 05/25/2025 6:0 7 PM EDT 05/26/2025 5:58 AM EDT Willem Shin DO POINT OF CARE TEST ORDERABLE S Final Result [facility] [address] * (ABNORMAL) POC pH (05/25/2025 6:07 PM EDT) POC pH, Venous 7.30(L) 7.32 - 7.42 05/26/2025 5:58 AM EDT [facility] Blood, Venous 05/25/2025 6:0 7 PM EDT 05/26/2025 5:58 AM EDT Willem Shin DO POINT OF CARE TEST ORDERABLE S Final Result Performing Organization Address City/[facility] Co de Phone Number [facility] [address] [facility]. [address] documented in this encounter Visit Diagnoses Diagnosis Septic shock, resolved- Primary Mastocytosis Congenital pigmentary anomaly of skin Shock (CMS-HCC) Unspecified shock Elevated LFTs Other abnormal blood chemistry Gastroesophageal reflux disease without esophagitis Esophageal reflux Morbid obesity (CMS-HCC) Morbid obesity Pneumonia of both lower lobes due to infectious organism Acute kidney injury ([facility]-HCC) Coronary artery disease involving [place] coronary artery of [place] heart without angina pectoris Elevated LFTs Other abnormal blood chemistry Simple chronic bronchitis (CMS-HCC) Simple chronic bronchitis APARNA (obstructive sleep apnea) Obstructive sleep apnea (adult) (pediatric) Acute respiratory failure with hypoxia (CMS-HCC) Acute metabolic encephalopathy Chronic anxiety Anxiety state, unspecified HFimpEF Chronic systolic heart failure Opioid-induced constipation Chronic back+knee pain with R-sided sciatica Unspecified backache * Assessment & Plan Note - Audi Yates MD - 05/27/2025 4:11 PM EDTAssociated Problem(s): Chronic back+knee pain with R-sided sciatica On Tramadol 50 mg daily, gabapentin 100 mg TID, cymbalta 60 mg daily. IV Dilaudid given in MICU. - Home tramadol, gabapentin held d/t no active rx, cymbalta - Resuming Celecoxib (FER resolved) - Scheduled Tylenol + Robaxin and 2.5 mg Q6 Oxy PRN * Assessment & Plan Note - Audi Yates MD - 05/27/2025 4:09 PM EDTAssociated Problem(s): Septic shock, resolved No isolated soruce of infection. Cholangitis with stone passage (rapid improvement) vs. CAP strep pneumonia. Downtrending neutrophilic-predominant leukocytosis. - Strep pneumo + legionella Urine ag - Abx: - Zosyn (72-) - Based on above studies, de-escalate for total Abx course of 7 days (IV or PO) * Assessment & Plan Note - Audi Yates MD - 05/27/2025 4:09 PM EDTAssociated Problem(s): Acute respiratory failure with hypoxia (CMS-HCC) No isolated soruce of infection. Cholangitis with stone passage (rapid improvement) vs. CAP strep pneumonia. Downtrending neutrophilic-predominant leukocytosis. - Strep pneumo + legionella Urine ag - Abx: - Zosyn (7/2-) - Based on above studies, de-escalate for total Abx course of 7 days (IV or PO) * Assessment & Plan Note - Audi Yates MD - 05/27/2025 4:09 PM EDTAssociated Problem(s): Elevated LFTs Most likely ischemic hepatitis. Gallstone passage also possible (elevated total bili). Imaging w/o overt cause. GI followed and [facility] for advanced imaging/dx evaluation. Also considered role of statin. - Hold statin for now * Assessment & Plan Note - Audi Yates MD - 05/27/2025 4:09 PM EDTAssociated Problem(s): Gastroesophageal reflux disease without esophagitis Protonix TI * Assessment & Plan Note - Audi Yates MD - 05/27/2025 4:09 PM EDTAssociated Problem(s): Acute metabolic encephalopathy OARRS reviewed -- Lorazepam 0.5 mg (60 tablets) filled 01/18/25, though takes infrequently PRN. Acute met. Encephalopathy most likely hospital-acquired delirium iso acute illness. Given HD stability, adding delirium precautions. - Holding home ativan - Hydroxyzine 10 mg BID PRN for anxiety * Assessment & Plan Note - Audi Yates MD - 05/27/2025 4:09 PM EDTAssociated Problem(s): Chronic anxiety OARRS reviewed -- Lorazepam 0.5 mg (60 tablets) filled 01/18/25, though takes infrequently PRN. Acute met. Encephalopathy most likely hospital-acquired delirium iso acute illness. Given HD stability, adding delirium precautions. - Holding home ativan - Hydroxyzine 10 mg BID PRN for anxiety * Assessment & Plan Note - Audi Yates MD - 05/27/2025 4:09 PM EDTAssociated Problem(s): APARNA (obstructive sleep apnea) - OP sleep study * Assessment & Plan Note - Audi Yates MD - 05/27/2025 4:09 PM EDTAssociated Problem(s): HFimpEF See MICU notes for details of cardiac history. Of note, GDMT at home low-dose entresto, low-dose coreg, aldactone 25 mg BID, not on SGLT2i though possible candidate (no prior DKA/UTI). - GDMT: - Preload: No diuresis given sepsis/hypovolemia - Pump: Restart Coreg 3.125 mg BID - Afterload: restart aldactone 25 mg tomorrow pending stability -- will consider SGLT2i upon discharge * Assessment & Plan Note - Audi Yates MD - 05/27/2025 4:09 PM EDTAssociated Problem(s): Coronary artery disease involving [place] coronary artery of [place] heart without angina pectoris See MICU notes for details of cardiac history. Of note, GDMT at home low-dose entresto, low-dose coreg, aldactone 25 mg BID, not on SGLT2i though possible candidate (no prior DKA/UTI). 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 - Hold home linzess resume upon DC - Miralax to BID + Senna scheduled QHS (no BM 2 days) - Suppository tomorrow if no BM documented in this encounter Administered Medications Inactive Administered Medications - up to 3 most recent administrations Medication Order MAR Action Action Date Dose Rate Site acetaminophen (TYLENOL) tablet 650 mg 650 mg, Oral, Every 6 hours PRN, mild pain (NRS 1-3); no comparable CPOT score, moderate pain (NRS 4-6) or if patient is non-communicative (CPOT 3-5), severe pain (NRS 7-10) or if patient is non-communicative (CPOT 6-8), Body Temperature > 101.4F, Starting on Fri05/26/25 at 0021, Maximum dose of acetaminophen is 4000 mg (4 grams) from all sources in 24 hours. Given 05/26/2025 7:57 AM EDT 650 mg acetaminophen (TYLENOL) tablet 975 mg 975 mg, Oral, Every 8 hours, First dose (after last modification) on Fri05/27/25 at 1700, Maximum dose of acetaminophen is 4000 mg (4 grams) from all sources in 24 hours. Given 05/28/2025 10:52 AM EDT 975 mg Given 05/28/2025 1:59 AM EDT 975 mg Given 05/27/2025 4:25 PM EDT 975 mg albuterol (PROVENTIL) nebulizer solution 2.5 mg 2.5 mg, Nebulization, RT every 6 hours PRN, Wheezing, Shortness of Breath, Adjust per - RT assess and treat protocol., Starting on Fri05/25/25 at 2333 aspirin EC tablet 81 mg 81 mg, Oral, Daily, First dose on Fri05/26/25 at 0900, DO NOT CRUSH OR CHEW Given 05/28/2025 10:52 AM EDT 81 mg Given 05/27/2025 8:17 AM EDT 81 mg Given 05/26/2025 7:57 AM EDT 81 mg calcium gluconate in sodium chloride, iso-osm 2 gram/100 mL IV solution 2 g 2 g, Intravenous, at 100 mL/hr, Every hour, First dose on Fri05/25/25 at 2200, For 3 doses, Infuse a total of 6 grams over 3 hours via Peripheral Line Access OR Central Line Access. New Bag 05/26/2025 12:37 AM EDT 2 g 100 mL/hr New Bag 05/25/2025 11:10 PM EDT 2 g 100 mL/hr Rate/Dose Verify 05/25/2025 10:45 PM EDT 100 mL /hr carvediloL (COREG) tablet 3.125 mg 3.125 mg, Oral, 2 times daily, First dose on Fri05/27/25 at 2100 Given 05/28/2025 10:52 AM EDT 3.125 mg Given 05/27/2025 9:24 PM EDT 3.125 mg celecoxib (CELEBREX) capsule 100 mg 100 mg, Oral, 2 times daily, First dose on Fri05/27/25 at 2100 Given 05/28/2025 10:52 AM EDT 100 mg Given 05/27/2025 9:24 PM EDT 100 mg cholecalciferol (vitamin D3) capsule 5,000 Units 5,000 Units, Oral, Daily, First dose on Fri05/26/25 at 0900 Given 05/28/2025 10:52 AM EDT 5,000 Units Given 05/27/2025 8:20 AM EDT 5,000 Units Given 05/26/2025 7:57 AM EDT 5,000 Units dextrose 10%-water (D10W) IV soln 12.5 g, Intravenous, Every 15 min PRN, Low blood sugar, for glucose < 70 and alert but can not be corrected, orally or via feeding tube, Starting on Fri05/25/25 at 2331, Recheck blood sugar in 15 minutes and repeat treatment if glucose still < 70. For Smart Pump: Set volume to be infused; 125 ml for 12.5 grams or 250 mL for 25 grams. dextrose 10%-water (D10W) IV soln 25 g, Intravenous, Every 15 min PRN, Low blood sugar, for glucose < 70 and not alert, Starting on Fri05/25/25 at 2331, Recheck glucose in 15 minutes and repeat treatment if glucose still < 70. For Smart Pump: Set volume to be infused; 125 ml for 12.5 grams or 250 mL for 25 grams. DULoxetine (CYMBALTA) DR capsule 60 mg 60 mg, Oral, Daily, First dose on Fri05/26/25 at 0900, Duloxetine should be swallowed whole. If patient unable to swallow the oral capsule, open capsule and sprinkle pellets on applesauce or in apple juice ONLY. Do not mix with other foods/drinks. Advise patient to NOT chew or crush the pellets. For Feeding Tube administration: stop the tube feed, flush the tube with water, open the capsule and suspend the medication in water or apple juice, administer the mixture in the feeding tube, flush again with water, and restart the tube feed. Given 05/28/2025 10:52 AM EDT 60 mg Given 05/27/2025 8:17 AM EDT 60 mg Given 05/26/2025 7:57 AM EDT 60 mg electrolyte-R (pH 7.4) (NORMOSOL-R pH 7.4) IV bolus 1,000 mL Intravenous, Administer over 1.001 Hours, at 999 mL/hr, Once, On Fri05/25/25 at 2000, For 1 dose Rate/Dose Verify 05/25/2025 9:27 PM EDT 999 mL/hr Rate/Dose Verify 05/25/2025 8:53 PM EDT 999 mL/ hr New Bag 05/25/2025 8:08 PM EDT 1,000 mLs 999 mL/hr famotidine (PEPCID) tablet 20 mg 20 mg, Oral, Daily, First dose on Hannah 05/26/25 at 0900 Given 05/28/2025 10:52 AM EDT 20 mg Given 05/27/2025 8:23 AM EDT 20 mg Given 05/26/2025 7:57 AM EDT 20 mg glucose chewable tablet 12 g 12 g, Oral, Every 15 min PRN, Low blood sugar, see admin instructions, Starting on Fri05/25/25 at 2331, TAKING PO: Patient has blood glucose between 50-70 mg/dL. o Give 15 grams of fast-acting carbohydrate (4 oz. fruit juice or 4 oz. non-diet soda or 3 glucose tablets). o Recheck blood sugar in 15 minutes and repeat if blood sugar is still between 50-70 mg/dL. Repeat as needed. Patient has blood glucose less than 50 mg/dL o Give 30 grams fast-acting carbohydrate (8 oz. fruit juice or 8 oz. of non-diet soda or 6 glucose tablets) on first attempt. o Recheck blood sugar in 15 minutes and repeat if blood sugar is still less than 50mg/dL. o If further attempts necessary, revert to 15 grams of carbohydrate. Repeat as needed. FEEDING TUBE: Patient has blood glucose between 50-70 mg/dL. o Give 15 grams of fast-acting carbohydrate (4 oz. fruit juice or 4 oz.non-diet soda). o Recheck blood sugar in 15 minutes and repeat if blood sugar is still between 50-70 mg/dL. Repeat as needed. Patient has blood glucose less than 50 mg/dL o Give 30 grams fast-acting carbohydrate (8 oz. fruit juice or 8 oz. of non-diet soda). o Recheck blood sugar in 15 minutes and repeat if blood sugar is still less than 50mg/dL. o If further attempts necessary, revert to 15 grams of carbohydrate. Repeat as needed. Labeled tablet strength may vary by coding auditor (may be expressed as grams of carbohydrates) per tablet. Each tablet = 4 grams of glucose. Do not give chewable tablets via feeding tube heparin (porcine) injection 7,500 units/0.375 mL 7,500 Units, Subcutaneous, Every 8 hours scheduled (3 times per day), First dose (after last reorder) on Fri05/25/25 at 2200 Given 05/28/2025 12:55 PM EDT 7,500 Units Right Arm Given 05/28/2025 5:26 AM EDT 7,500 Units R ight Arm Given 05/27/2025 9:25 PM EDT 7,500 Units R ight Arm HYDROmorphone (DILAUDID) injection 0.3 mg 0.3 mg, Intravenous, Every 4 hours PRN, severe pain (NRS 7-10) or if patient is non-communicative (CPOT 6-8), moderate pain (NRS 4-6) or if patient is non-communicative (CPOT 3-5), Starting on Fri05/25/25 at 2111, For 2 days Given 05/25/2025 9:47 PM EDT 0.3 mg HYDROmorphone (DILAUDID) injection 0.3 mg 0.3 mg, Intravenous, Every 4 hours PRN, severe pain (NRS 7-10) or if patient is non-communicative (CPOT 6-8), Starting on Fri05/25/25 at 2309, For 2 days Given 05/26/2025 3:24 AM EDT 0.3 mg HYDROmorphone (DILAUDID) injection 0.5 mg 0.5 mg, Intravenous, Every 4 hours PRN, severe pain (NRS 7-10) or if patient is non-communicative (CPOT 6-8), Starting on Hannah 05/26/25 at 1332, For 1 day Given 05/27/2025 8:16 AM EDT 0.5 mg Given 05/27/2025 4:08 AM EDT 0.5 mg Given 05/27/2025 12:30 AM EDT 0.5 mg hydrOXYzine HCL (ATARAX) tablet 10 mg 10 mg, Oral, 2 times daily PRN, Anxiety, Starting on Fri05/26/25 at 0058 ICU ELECTROLYTE REPLACEMENT PROTOCOL Intravenous, Use as directed PRN, for potassium, for phosphorus, for magnesium, for calcium, Starting on Fri05/25/25 at 1853, Discontinue if serum creatinine is greater than 1.8 or in patients with end stage renal disease. Discontinue upon transfer out of the ICU. levoFLOXacin (LEVAQUIN) tablet 500 mg 500 mg, Oral, Daily, First dose on Fri05/28/25 at 1230, For 4 days, Space meals at least 1 hour before and 2 hours after dose. Given 05/28/2025 12:54 PM EDT 500 mg magnesium sulfate in D5W 100 mL 1 gram/100 mL IVPB 1 g 1 g, Intravenous, at 100 mL/hr, Once, On Fri05/26/25 at 1300, For 1 dose Rate/Dose Verify 05/26/2025 1:02 PM EDT 100 mL/hr Rate/Dose Verify 05/26/2025 12:59 PM EDT 100 mL /hr New Bag 05/26/2025 12:59 PM EDT 1 g 100 mL/hr magnesium sulfate in sterile water 50 mL IVPB 2 g 2 g, Intravenous, Administer over 120 Minutes, Once, On Fri05/27/25 at 0200, For 1 dose, For Magnesium 2.1 - 2.3: administer 2 gram IVPB over 120 minutes New Bag 05/27/2025 2:20 AM EDT 2 g 25 mL/hr methocarbamoL (ROBAXIN) tablet 500 mg 500 mg, Oral, 4 times a day, First dose on Fri05/27/25 at 1700 Given 05/28/2025 12:54 PM EDT 500 mg Given 05/28/2025 10:52 AM EDT 500 mg Given 05/27/2025 9:24 PM EDT 500 mg mometasone (ASMANEX) 220 mcg/ actuation (14) inhaler 1 puff 1 puff, Inhalation, RT Daily, First dose on Fri05/26/25 at 0830, Administer 1 inhalation with 1 inhalation of ANORO ELLIPTA to = 1 inhalation of TRELEGY ELLIPTA Given 05/27/2025 9:03 AM EDT 1 puff Given 05/26/2025 9:03 AM EDT 1 puff mupirocin (BACTROBAN) 2 % ointment 1 g Topical, 2 times daily, First dose on Fri05/25/25 at 2100, For 5 days, Apply 0.5 grams to each nare for a total of 1 gram. Then press nostrils together and massage gently for 60 seconds. 0.5 grams is about the size of a blueberry and should be placed onto a sterile cotton swab. Inserting the swab directly into the nostril will help ensure all sides of the nostril are coated in mupirocin. , Other Site: Apply 0.5 grams to each nare for a total of 1 gramIndications:Methicillin-Resistant S. Aureus Nasal Colonization Given 05/28/2025 10:52 AM EDT 1 g Given 05/27/2025 10:54 PM EDT 1 g Given 05/27/2025 11:09 AM EDT 1 g norepinephrine (LEVOPHED) 16 mg/250 mL (64 mcg/mL) infusion Created by oral override ondansetron (ZOFRAN) injection 4 mg 4 mg, Intravenous, Every 8 hours PRN, Nausea and/or Vomiting, Starting on Fri05/25/25 at 2001 Given 05/26/2025 3:35 AM EDT 4 mg oxyCODONE (ROXICODONE) immediate release tablet 2.5 mg 2.5 mg, Oral, Every 6 hours PRN, severe pain (NRS 7-10) or if patient is non-communicative (CPOT 6-8), ensure other scheduled pain meds given 2 hours prior to offering, Starting on Fri05/27/25 at 1640 Given 05/27/2025 11:43 PM EDT 2. 5 mg Given 05/27/2025 4:25 PM EDT 2.5 mg pantoprazole (PROTONIX) EC tablet 40 mg 40 mg, Oral, Daily6, First dose on Fri05/26/25 at 0600, Therapeutic Interchange for omeprazole 20mg Oral = pantoprazole 40mg Oral Do Not Crush Given 05/28/2025 5:08 AM EDT 40 mg Given 05/27/2025 4:51 AM EDT 40 mg Given 05/26/2025 5:14 AM EDT 40 mg perflutren (OPTISON) Susp 0.66 mg 0.66 mg, Intravenous, IMG once as needed, contrast, Starting on Hannah 05/26/25 at 0904, For 1 dose Given 05/26/2025 8:41 AM EDT 0.66 mg PERIPHERAL norepinephrine (LEVOPHED) 16 mg/250 mL (64 mcg/mL) infusion Intravenous, at 0-14.1 mL/hr, Continuous, Starting on Fri05/25/25 at 1930, For 48 hours, Peripheral line may be used for 48 hours dedicated to norepinephrine (LEVOPHED) only. Norepinephrine dose should NOT exceed 15 mcg/min in the first 24 hours or 8 mcg/min in hours 25 - 48. CENTRAL LINE access MUST be obtained if infusion needs to be continued past 48 hours or exceeds dose limit. Assess and document two (2) working peripheral IV lines. Preferred placement by ultrasound and MUST have positive blood return. If more than 2 sticks are needed to obtain access, then CENTRAL LINE access MUST be obtained. Criteria for use of peripheral Norepinephrine Peripheral IV line established with the last 24 hours; must be 18 G or 20 G located in an upper extremity at least 2 inches above the wrist, up to but not including the antecubital vein. No peripheral IV allowed in hands, antecubital, lower extremity, or limb with upper limb restrictions. No midlines Assess PIV site every 2 hours. If concerns for line patency, phlebitis or extravasation, notify provider (), and refer to [facility] Extravasation Management Guidelines. , IV Line Type: PERIPHERAL, Initial starting rate: 2 mcg/min, Titrate by: 0.5 - 5 mcg/min, Titration interval: no more frequent than: 2 minutes, Clinical Goal: MAP greater than or equal to 65 mmHg, Contact Provider: If goals cannot be maintained at highest permissible doseIndications:Mastocytosis Rate/Dose Change 05/25/2025 9:34 PM EDT 1 mcg/min 0.9 mL/hr Rate/Dose Verify 05/25/2025 9:27 PM EDT 2 mcg/min 1.9 mL/ hr Rate/Dose Change 05/25/2025 9:21 PM EDT 2 mcg/min 1.9 mL/ hr piperacillin-tazobactam (ZOSYN) 4.5 g in sodium chloride 0.9 % 100 mL [id number] 4.5 g, Intravenous, at 200 mL/hr, Once, On Fri05/25/25 at 2000, For 1 dose, Use [id number] Adapter - Mix Thoroughly Before Administration New Bag 05/25/2025 8:22 PM EDT 4.5 g 200 mL/hr piperacillin-tazobactam (ZOSYN) 4.5 g in sodium chloride 0.9 % 100 mL [id number] 4.5 g, Intravenous, at 25 mL/hr, Every 8 hours, First dose on Fri05/26/25 at 0400, Use [id number] Adapter - Mix Thoroughly Before Administration New Bag 05/28/2025 5:13 AM EDT 4.5 g 25 mL/hr New Bag 05/27/2025 10:01 PM EDT 4.5 g 25 mL/hr New Bag 05/27/2025 1:10 PM EDT 4.5 g 25 mL/hr polyethylene glycol (MIRALAX) packet 17 g 17 g, Oral, Daily, First dose on Fri05/26/25 at 0900 Given 05/26/2025 8:00 AM EDT 17 g polyethylene glycol (MIRALAX) packet 17 g 17 g, Oral, 2 times daily, First dose (after last modification) on Fri05/27/25 at 2100 potassium chloride (KCl)/Sterile water 100 mL 10 mEq/100 mL IVPB 10 mEq 10 mEq, Intravenous, Administer over 60 Minutes, Every hour, First dose on Fri05/25/25 at 2200, For 2 doses, For Potassium Level 4 - 4.3. Infuse each bag (10 mEq) over 1 hour. Total dose is 20 mEq over 2 hours via Peripheral Line Access. MAX INFUSION RATE VIA PERIPHERAL LINE IS 10 mEq/hr (100 mL/hr). Rate/Dose Verify 05/25/2025 10:45 PM EDT 100 mL/hr New Bag 05/25/2025 10:22 PM EDT 10 mEq 100 mL/hr Rate/Dose Verify 05/25/2025 9:27 PM EDT 100 mL/ hr proCHLORPERazine (COMPAZINE) injection 10 mg 10 mg, Intravenous, Once, On Fri05/26/25 at 1300, For 1 dose Given 05/26/2025 12:56 PM EDT 10 mg QUEtiapine (SEROQUEL) half tablet 25 mg 25 mg, Oral, At Bedtime (2099), First dose on Fri05/27/25 at 2100, PRECUT BY PHARMACY Given 05/27/2025 9:24 PM EDT 25 mg senna (SENOKOT) tablet 1 tablet 1 tablet, Oral, 2 times daily, First dose on Fri05/25/25 at 2100 Given 05/25/2025 8:16 PM EDT 1 tablet senna-docusate (SENNA-S) 8.6-50 mg per tablet 1 tablet 1 tablet, Oral, At Bedtime (2099), First dose (after last modification) on Fri05/27/25 at 2100 Given 05/27/2025 9:24 PM EDT 1 tablet topiramate (TOPAMAX) tablet 250 mg 250 mg, Oral, Daily, First dose on Fri05/26/25 at 0900 Given 05/28/2025 10:56 AM EDT 250 mg Given by Other 05/27/2025 8:19 AM EDT 250 mg Given 05/26/2025 7:57 AM EDT 250 mg traMADoL (ULTRAM) tablet 50 mg 50 mg, Oral, Every 8 hours PRN, moderate pain (NRS 4-6) or if patient is non-communicative (CPOT 3-5), Starting on Fri05/25/25 at 2333 Given 05/27/2025 1:08 PM EDT 5 0 mg Given 05/26/2025 9:59 AM EDT 50 mg umeclidinium-vilanteroL (ANORO ELLIPTA) 62.5-25 mcg/actuation powder for inhalation DsDv 1 puff 1 puff, Inhalation, RT Daily, First dose on Fri05/26/25 at 0830, Administer 1 inhalation with 1 inhalation of mometasone (ASMANEX) 220 mcg to = 1 inhalation of TRELEGY ELLIPTA Given 05/27/2025 9:03 AM EDT 1 p uff Given 05/26/2025 9:03 AM EDT 1 puff documented in this encounter Active and Recently Administered Medications Times are shown in EDT. Scheduled Medication Order 05/26/2025 05/27/2025 05/28/2025 acetaminophen (TYLENOL) tablet 975 mg 975 mg, Oral, Every 8 hours, First dose (after last modification) on Fri05/27/25 at 1700, Maximum dose of acetaminophen is 4000 mg (4 grams) from all sources in 24 hours. 1625 (Given - Provider: Dalila Burns RN) 0159 (Given - Provider: Shae Mcgill RN)1052 (Given - Provider: Shiloh Chand, CISCO) aspirin EC tablet 81 mg 81 mg, Oral, Daily, First dose on Fri05/26/25 at 0900, DO NOT CRUSH OR CHEW 0757 (Given - Provider: Denisse Juarez, CISCO, RN) 0817 (Given - Provider: Shruti Woodall, CISCO) 1052 (Given - Provider: Shiloh Chand, CISCO) calcium gluconate in sodium chloride, iso-osm 2 gram/100 mL IV solution 2 g (COMPLETED) 2 g, Intravenous, at 100 mL/hr, Every hour, First dose on Fri05/25/25 at 2200, For 3 doses, Infuse a total of 6 grams over 3 hours via Peripheral Line Access OR Central Line Access. 0037 (New Bag - Provider: Jose L Cerda RN) carvediloL (COREG) tablet 3.125 mg 3.125 mg, Oral, 2 times daily, First dose on Fri05/27/25 at 2100 2123 (Given - Provider: Shae Mcgill, CISCO) 1052 (Given - Provider: Shiloh Chand, CISCO) celecoxib (CELEBREX) capsule 100 mg 100 mg, Oral, 2 times daily, First dose on Fri05/27/25 at 2100 4 (Given - Provider: Shae Mcgill, CISCO) 1052 (Given - Provider: Shiloh Chand, CISCO) cholecalciferol (vitamin D3) capsule 5,000 Units 5,000 Units, Oral, Daily, First dose on Fri05/26/25 at 0900 0757 (Given - Provider: Denisse Juarez RN, RN) 0820 (Given - Provider: Shruti Woodall, CISCO) 1052 (Given - Provider: Shiloh Chand, CISCO) DULoxetine (CYMBALTA) DR capsule 60 mg 60 mg, Oral, Daily, First dose on Fri05/26/25 at 0900, Duloxetine should be swallowed whole. If patient unable to swallow the oral capsule, open capsule and sprinkle pellets on applesauce or in apple juice ONLY. Do not mix with other foods/drinks. Advise patient to NOT chew or crush the pellets. For Feeding Tube administration: stop the tube feed, flush the tube with water, open the capsule and suspend the medication in water or apple juice, administer the mixture in the feeding tube, flush again with water, and restart the tube feed. 0757 (Given - Provider: Denisse Juarez RN, RN) 0817 (Given - Provider: Shruti Woodall, RN) 1052 (Given - Provider: Shiloh Chand, CISCO) famotidine (PEPCID) tablet 20 mg 20 mg, Oral, Daily, First dose on Fri05/26/25 at 0900 0757 (Given - Provider: Denisse Juarez RN, RN) 0823 (Given - Provider: Shruti Woodall, CISCO) 1052 (Given - Provider: Shiloh Chand, CISCO) heparin (porcine) injection 7,500 units/0.375 mL 7,500 Units, Subcutaneous, Every 8 hours scheduled (3 times per day), First dose (after last reorder) on Fri05/25/25 at 2200 0514 (Given - Provider: Jose L Cerda, CISCO)1256 (Given - Provider: Denisse Juarez RN, RN)2059 (Given - Provider: Jose L Cerda RN) 0408 (Given - Provider: Jose L Cerda RN)1300 (Due)2125 (Given - Provider: Shae Mcgill, CISCO) 0526 (Given - Provider: Shae Mcgill, CISCO)1255 (Given - Provider: Shiloh Chand, CISCO) levoFLOXacin (LEVAQUIN) tablet 500 mg 500 mg, Oral, Daily, First dose on Fri05/28/25 at 1230, For 4 days, Space meals at least 1 hour before and 2 hours after dose. 1254 (Given - Provider: Shiloh Chand, CISCO) magnesium sulfate in D5W 100 mL 1 gram/100 mL IVPB 1 g (COMPLETED) 1 g, Intravenous, at 100 mL/hr, Once, On Fri05/26/25 at 1300, For 1 dose 1259 (New Bag - Provider: Denisse Juarez RN, RN)1259 (Rate/Dose Verify - Provider: Denisse Juarez RN, RN)1302 (Rate/Dose Verify - Provider: Denisse Juarez RN, RN) magnesium sulfate in sterile water 50 mL IVPB 2 g (COMPLETED) 2 g, Intravenous, Administer over 120 Minutes, Once, On Fri05/27/25 at 0200, For 1 dose, For Magnesium 2.1 - 2.3: administer 2 gram IVPB over 120 minutes 0220 (New Bag - Provider: Jose L Cerda, CISCO) methocarbamoL (ROBAXIN) tablet 500 mg 500 mg, Oral, 4 times a day, First dose on Fri05/27/25 at 1700 1625 (Given - Provider: Dalila Burns RN)2124 (Given - Provider: Shae Mcgill, CISCO) 1052 (Given - Provider: Shiloh Chand RN)1254 (Given - Provider: Shiloh Chand RN) mometasone (ASMANEX) 220 mcg/ actuation (14) inhaler 1 puff(Linked Group 1) 1 puff, Inhalation, RT Daily, First dose on Fri05/26/25 at 0830, Administer 1 inhalation with 1 inhalation of ANORO ELLIPTA to = 1 inhalation of TRELEGY ELLIPTA 0903 (Given - Provider: Colten Gordillo RRT) 0903 (Given - Provider: Tram Harman, LIN) 0825 (Hold - Provider: Regla Huynh RRT - Reason: Medication not available) mupirocin (BACTROBAN) 2 % ointment 1 g Topical, 2 times daily, First dose on Fri05/25/25 at 2100, For 5 days, Apply 0.5 grams to each nare for a total of 1 gram. Then press nostrils together and massage gently for 60 seconds. 0.5 grams is about the size of a blueberry and should be placed onto a sterile cotton swab. Inserting the swab directly into the nostril will help ensure all sides of the nostril are coated in mupirocin. , Other Site: Apply 0.5 grams to each nare for a total of 1 gram 0758 (Given - Provider: Denisse Juarez RN, RN)2059 (Given - Provider: Jose L Cerda RN) 1109 (Given - Provider: Shruti Woodall, CISCO)2254 (Given - Provider: Shae Mcgill RN) 1052 (Given - Provider: Shiloh Chand RN) pantoprazole (PROTONIX) EC tablet 40 mg 40 mg, Oral, Daily6, First dose on Fri05/26/25 at 0600, Therapeutic Interchange for omeprazole 20mg Oral = pantoprazole 40mg Oral Do Not Crush 0514 (Given - Provider: Jose L Cerda RN) 0451 (Given - Provider: Jose L Cerda RN) 0508 (Given - Provider: Shae Mcgill RN) piperacillin-tazobactam (ZOSYN) 4.5 g in sodium chloride 0.9 % 100 mL [id number] (CANCELED)(Linked Group 2) 4.5 g, Intravenous, at 25 mL/hr, Every 8 hours, First dose on Fri05/26/25 at 0400, Use [id number] Adapter - Mix Thoroughly Before Administration 0325 (New Bag - Provider: Jose L Cerda RN)0555 (Rate/Dose Verify - Provider: Jose L Cerda RN)0724 (Stopped - Provider: Denisse Juarez RN, RN)1301 (New Bag - Provider: Denisse Juarez RN, RN)1302 (Rate/Dose Verify - Provider: Denisse Juarez RN, RN)1446 (Rate/Dose Verify - Provider: Jose L Cerda RN)1704 (Stopped - Provider: Jose L Cerda RN)2105 (New Bag - Provider: Jose L Cerda RN) 0105 (Stopped - Provider: Jose L Cerda RN)0415 (New Bag - Provider: Jose L Cerda RN)0613 (Rate/Dose Verify - Provider: Jose L Cerda RN)1310 (New Bag - Provider: Shruti Woodall, CISCO)2201 (New Bag - Provider: Shae Mcgill RN) 0513 (New Bag - Provider: Shae Mcgill RN) polyethylene glycol (MIRALAX) packet 17 g (CANCELED) 17 g, Oral, Daily, First dose on Fri05/26/25 at 0900 0800 (Given - Provider: Denisse Juarez RN, RN) 0825 (Not Given - Provider: Shruti Woodall, RN - Reason: Patient not available) polyethylene glycol (MIRALAX) packet 17 g 17 g, Oral, 2 times daily, First dose (after last modification) on Fri05/27/25 at 2100 2124 (Not Given - Provider: Shae Mcgill RN - Reason: Patient/family refused) 0734 (Not Given - Provider: Shiloh Chand, CISCO - Reason: Patient/family refused) proCHLORPERazine (COMPAZINE) injection 10 mg (COMPLETED) 10 mg, Intravenous, Once, On Fri05/26/25 at 1300, For 1 dose 1256 (Given - Provider: Denisse Juarez RN, RN) QUEtiapine (SEROQUEL) half tablet 25 mg 25 mg, Oral, At Bedtime (2099), First dose on Fri05/27/25 at 2100, PRECUT BY PHARMACY 2123 (Given - Provider: Shae Mcgill RN) senna-docusate (SENNA-S) 8.6-50 mg per tablet 1 tablet 1 tablet, Oral, At Bedtime (2099), First dose (after last modification) on Fri05/27/25 at 2100 2123 (Given - Provider: Shae Mcgill, CISCO) topiramate (TOPAMAX) tablet 250 mg 250 mg, Oral, Daily, First dose on Fri05/26/25 at 0900 0757 (Given - Provider: Denisse Juarez RN, RN) 0819 (Given by Other - Provider: Shruti Woodall, CISCO) 1056 (Given - Provider: Shiloh Chand, CISCO) umeclidinium-vilanteroL (ANORO ELLIPTA) 62.5-25 mcg/actuation powder for inhalation DsDv 1 puff(Linked Group 1) 1 puff, Inhalation, RT Daily, First dose on Fri05/26/25 at 0830, Administer 1 inhalation with 1 inhalation of mometasone (ASMANEX) 220 mcg to = 1 inhalation of TRELEGY ELLIPTA 0903 (Given - Provider: Colten Gordillo, DEPARTMENT ASSISTANT) 0903 (Given - Provider: Tram Harman, DEPARTMENT ASSISTANT) 0825 (Hold - Provider: Regla Huynh, LIN - Reason: Medication not available) PRN Medication Order 05/26/2025 05/27/2025 05/28/2025 acetaminophen (TYLENOL) tablet 650 mg (CANCELED) 650 mg, Oral, Every 6 hours PRN, mild pain (NRS 1-3); no comparable CPOT score, moderate pain (NRS 4-6) or if patient is non-communicative (CPOT 3-5), severe pain (NRS 7-10) or if patient is non-communicative (CPOT 6-8), Body Temperature > 101.4F, Starting on Hannah 05/26/25 at 0021, Maximum dose of acetaminophen is 4000 mg (4 grams) from all sources in 24 hours. 0757 (Given - Provider: Denisse Juarez, RN, RN) albuterol (PROVENTIL) nebulizer solution 2.5 mg 2.5 mg, Nebulization, RT every 6 hours PRN, Wheezing, Shortness of Breath, Adjust per RC- RT assess and treat protocol., Starting on Fri05/25/25 at 2333 dextrose 10%-water (D10W) IV soln(Linked Group 3) 12.5 g, Intravenous, Every 15 min PRN, Low blood sugar, for glucose < 70 and alert but can not be corrected, orally or via feeding tube, Starting on Fri05/25/25 at 2331, Recheck blood sugar in 15 minutes and repeat treatment if glucose still < 70. For Smart Pump: Set volume to be infused; 125 ml for 12.5 grams or 250 mL for 25 grams. dextrose 10%-water (D10W) IV soln(Linked Group 3) 25 g, Intravenous, Every 15 min PRN, Low blood sugar, for glucose < 70 and not alert, Starting on Fri05/25/25 at 2331, Recheck glucose in 15 minutes and repeat treatment if glucose still < 70. For Smart Pump: Set volume to be infused; 125 ml for 12.5 grams or 250 mL for 25 grams. glucose chewable tablet 12 g 12 g, Oral, Every 15 min PRN, Low blood sugar, see admin instructions, Starting on Fri05/25/25 at 2331, TAKING PO: Patient has blood glucose between 50-70 mg/dL. o Give 15 grams of fast-acting carbohydrate (4 oz. fruit juice or 4 oz. non-diet soda or 3 glucose tablets). o Recheck blood sugar in 15 minutes and repeat if blood sugar is still between 50-70 mg/dL. Repeat as needed. Patient has blood glucose less than 50 mg/dL o Give 30 grams fast-acting carbohydrate (8 oz. fruit juice or 8 oz. of non-diet soda or 6 glucose tablets) on first attempt. o Recheck blood sugar in 15 minutes and repeat if blood sugar is still less than 50mg/dL. o If further attempts necessary, revert to 15 grams of carbohydrate. Repeat as needed. FEEDING TUBE: Patient has blood glucose between 50-70 mg/dL. o Give 15 grams of fast-acting carbohydrate (4 oz. fruit juice or 4 oz.non-diet soda). o Recheck blood sugar in 15 minutes and repeat if blood sugar is still between 50-70 mg/dL. Repeat as needed. Patient has blood glucose less than 50 mg/dL o Give 30 grams fast-acting carbohydrate (8 oz. fruit juice or 8 oz. of non-diet soda). o Recheck blood sugar in 15 minutes and repeat if blood sugar is still less than 50mg/dL. o If further attempts necessary, revert to 15 grams of carbohydrate. Repeat as needed. Labeled tablet strength may vary by coding auditor (may be expressed as grams of carbohydrates) per tablet. Each tablet = 4 grams of glucose. Do not give chewable tablets via feeding tube HYDROmorphone (DILAUDID) injection 0.3 mg (CANCELED) 0.3 mg, Intravenous, Every 4 hours PRN, severe pain (NRS 7-10) or if patient is non-communicative (CPOT 6-8), Starting on Fri05/25/25 at 2309, For 2 days 0324 (Given - Provider: Jose L Cerda RN) HYDROmorphone (DILAUDID) injection 0.5 mg (CANCELED) 0.5 mg, Intravenous, Every 4 hours PRN, severe pain (NRS 7-10) or if patient is non-communicative (CPOT 6-8), Starting on Fri05/26/25 at 1332, For 1 day 1444 (Given - Provider: Kirt Crawford, CISCO)2052 (Given - Provider: Jose L Cerda, CISCO) 0030 (Given - Provider: Jose L Cerda RN)0408 (Given - Provider: Jose L Cerda RN)0816 (Given - Provider: Shruti Woodall, CISCO) hydrOXYzine HCL (ATARAX) tablet 10 mg 10 mg, Oral, 2 times daily PRN, Anxiety, Starting on Fri05/26/25 at 0058 ICU ELECTROLYTE REPLACEMENT PROTOCOL(Linked Group 4) Intravenous, Use as directed PRN, for potassium, for phosphorus, for magnesium, for calcium, Starting on Fri05/25/25 at 1853, Discontinue if serum creatinine is greater than 1.8 or in patients with end stage renal disease. Discontinue upon transfer out of the ICU. ondansetron (ZOFRAN) injection 4 mg 4 mg, Intravenous, Every 8 hours PRN, Nausea and/or Vomiting, Starting on Fri05/25/25 at 2001 0335 (Given - Provider: Jose L Cerda RN) oxyCODONE (ROXICODONE) immediate release tablet 2.5 mg 2.5 mg, Oral, Every 6 hours PRN, severe pain (NRS 7-10) or if patient is non-communicative (CPOT 6-8), ensure other scheduled pain meds given 2 hours prior to offering, Starting on Fri05/27/25 at 1640 1625 (Given - Provider: Dalila Burns RN)2343 (Given - Provider: Shae Mcgill RN) perflutren (OPTISON) Susp 0.66 mg (COMPLETED) 0.66 mg, Intravenous, IMG once as needed, contrast, Starting on Fri05/26/25 at 0904, For 1 dose 0841 (Given - Provider: Denisse Juarez RN, RN) traMADoL (ULTRAM) tablet 50 mg 50 mg, Oral, Every 8 hours PRN, moderate pain (NRS 4-6) or if patient is non-communicative (CPOT 3-5), Starting on Fri05/25/25 at 2333 0959 (Given - Provider: Jelena Estrada RN) [id number] (Given - Provider: Shruti Woodall, [employer]) Linked Groups Order Group 1: umeclidinium-vilanteroL (ANORO ELLIPTA) 62.5-25 mcg/actuation powder for inhalation DsDv 1 puffJump to med 1 puff, Inhalation, RT Daily, First dose on Fri05/26/25 at 0830, Administer 1 inhalation with 1 inhalation of mometasone (ASMANEX) 220 mcg to = 1 inhalation of TRELEGY ELLIPTA And mometasone (ASMANEX) 220 mcg/ actuation (14) inhaler 1 puffJump to med 1 puff, Inhalation, RT Daily, First dose on Fri05/26/25 at 0830, Administer 1 inhalation with 1 inhalation of ANORO ELLIPTA to = 1 inhalation of TRELEGY ELLIPTA Group 2: piperacillin-tazobactam (ZOSYN) 4.5 g in sodium chloride 0.9 % 100 mL [id number] (COMPLETED) 4.5 g, Intravenous, at 200 mL/hr, Once, On Fri05/25/25 at 2000, For 1 dose, Use [id number] Adapter - Mix Thoroughly Before Administration Followed by piperacillin-tazobactam (ZOSYN) 4.5 g in sodium chloride 0.9 % 100 mL [id number] (CANCELED)Jump to med 4.5 g, Intravenous, at 25 mL/hr, Every 8 hours, First dose on Fri05/26/25 at 0400, Use [id number] Adapter - Mix Thoroughly Before Administration Group 3: dextrose 10%-water (D10W) IV solnJump to med 12.5 g, Intravenous, Every 15 min PRN, Low blood sugar, for glucose < 70 and alert but can not be corrected, orally or via feeding tube, Starting on Fri05/25/25 at 2331, Recheck blood sugar in 15 minutes and repeat treatment if glucose still < 70. For Smart Pump: Set volume to be infused; 125 ml for 12.5 grams or 250 mL for 25 grams. Or dextrose 10%-water (D10W) IV solnJump to med 25 g, Intravenous, Every 15 min PRN, Low blood sugar, for glucose < 70 and not alert, Starting on Fri05/25/25 at 2331, Recheck glucose in 15 minutes and repeat treatment if glucose still < 70. For Smart Pump: Set volume to be infused; 125 ml for 12.5 grams or 250 mL for 25 grams. Group 4: ICU ELECTROLYTE REPLACEMENT PROTOCOLJump to med Intravenous, Use as directed PRN, for potassium, for phosphorus, for magnesium, for calcium, Starting on Fri05/25/25 at 1853, Discontinue if serum creatinine is greater than 1.8 or in patients with end stage renal disease. Discontinue upon transfer out of the ICU. And Initiate electrolyte replacement protocol (CANCELED) Nursing to initiate protocol documented in this encounter Additional Health Concerns Assessment Noted Time PHQ-9 Depression Total Score: 0 10/14/20 10:00 AM EST documented as of this encounter Care Teams Information Technology Specialist Relationship Specialty Start Date End Date Manas Jenkins MD [address] [place] [address] PCP - General Family Medicine 10/14/17 documented as of this encounter
--- OUTSIDE RECORDS SUMMARY | 2025-05-25 18:40 | XMS_ITS | Encounter Summary ---
Author Organization [facility] Address [address] [place] [address] Care Team Providers Care Bushel Worker Name Role Phone Manas Jenkins MD Primary Care Provider [phone] Source Comments This information has been disclosed [...] release of HIV test results or diagnoses. [id number] Reason for Visit * Auth/Cert (Routine) Specialty Diagnoses / Procedures Referred By Contac t Referred To Contact Intensive Care Diagnoses SEPTIC SHOCK [facility] MICU [address] [place] [address] Phone: tel: Referral ID Status Reason Start Date Expiration Date Visits Re quested Visits Authorized [id number] 1 1 Encounter Details Date Type Department Care Team (Latest Contact Info) Description 05/25/2025 6:40 PM EDT - 05/28/2025 1:38 PM EDT Hospital Encounter [facility] [address] [place] [address] Willem Shin DO [address] [place] [address] Eliud Lopez MD [address] [place] [address] Devante Kathleen MD [address] [place] [address] Mastocytosis (Primary Dx); Shock (CMS-HCC); [...] the past 12 months has th e [employer], gas, oil, or water [employer] threatened to shut off services in your [...] any time in the past 12 m [facility], were you homeless or living in a senior care (including now)? No 05/25/2025 Comments No Sex [...] from the original note were not included. [facility] Inpatient Discharge Summary Patient: Laura Mallory Age: 64 y.o. CSN: [id number] Date of Admission: 05/25/2025 Date of Discharge: 05/28/2025 Attending Physician: No att. providers found Primary Care Physician: MANAS JENKINS MD Diagnoses Present on Admission Past Medical History: Diagnosis Date Acute non-ST segment elevation myocardial infarction ([facility]) 02/26/2023 Anxiety Atherosclerosis of coronary artery without angina pectoris 02/26/2023 COPD (chronic obstructive pulmonary disease) ([facility]) Heart failure with improved ejection fraction (HFimpEF) ([facility]) Stress-induced cardiomyopathy 02/26/2023 Discharge Diagnoses Active Hospital Problems Diagnosis Date Noted Septic shock, resolved [A41.9, R65.21] 05/25/2025 Morbid obesity ([facility]) [E66.01] 05/27/2025 Pneumonia of both lower lobes due to infectious organism [J18.9] 05/27/2025 Elevated LFTs [R79.89] 05/27/2025 Simple chronic bronchitis ([facility]) [J41.0] 05/27/2025 APARNA (obstructive sleep apnea) [G47.33] 05/27/2025 Acute respiratory failure with hypoxia ([facility]) [J96.01] 05/27/2025 Acute metabolic encephalopathy [G93.41] 05/27/2025 HFimpEF [I50.22] 05/27/2025 Opioid-induced constipation [K59.03, T40.2X5A] 05/27/2025 Chronic back+knee pain with R-sided sciatica [M54.9, G89.29] 05/27/2025 Coronary artery disease involving port graham coronary artery of port graham heart without angina pectoris [I25.10] 02/26/2023 Gastroesophageal reflux disease without esophagitis [K21.9] 05/02/2022 Chronic anxiety [F41.9] 05/02/2022 Resolved Hospital Problems Diagnosis Date Noted Date Resolved Acute kidney injury ([facility]) [N17.9] 05/27/2025 05/27/2025 Operations/Procedures Performed (include dates) [...] Trelegy Ellipta 100-62.5-25 mcg Dsdv Generic drug: chhpqtnilpb-jjogoopmq-gqlkulbq Inhale 1 puff into the lungs daily. Refills: 0 * This list has 2 medication(s) that are the same as other medications prescribed for you. Read thedirections carefully, and ask your doctor or other care provider to review them with you. Where to Get Your Medications These medications were sent to [facility] [address] [place] [id number] Hours: Friday - Friday: 8:00AM - 6:00PM [...] dx on noct. CPAP/BiPAP), direct admission to [facility] from [facility] with septic shock and elevated liver enzymes. Hospital Course Active Hospital Problems Diagnosis Date Noted Septic shock, resolved [A41.9, R65.21] 05/25/2025 Morbid obesity ([facility]) [E66.01] 05/27/2025 Pneumonia of both lower lobes due to infectious organism [J18.9] 05/27/2025 Elevated LFTs [R79.89] 05/27/2025 Simple chronic bronchitis ([facility]) [J41.0] 05/27/2025 APARNA (obstructive sleep apnea) [G47.33] 05/27/2025 Acute respiratory failure with hypoxia ([facility]) [J96.01] 05/27/2025 Acute metabolic encephalopathy [G93.41] 05/27/2025 HFimpEF [I50.22] 05/27/2025 Opioid-induced constipation [K59.03, T40.2X5A] 05/27/2025 Chronic back+knee pain with R-sided sciatica [M54.9, G89.29] 05/27/2025 Coronary artery disease involving port graham coronary artery of port graham heart without angina pectoris [I25.10] 02/26/2023 Gastroesophageal reflux disease without esophagitis [K21.9] 05/02/2022 Chronic anxiety [F41.9] 05/02/2022 Resolved Hospital Problems Diagnosis Date Noted Date Resolved Acute kidney injury ([facility]) [N17.9] 05/27/2025 05/27/2025 #Septic shock due [...] intermittent BRB per rectum for 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 - Resume home Linzess - Miralax BID, [...] Appointments No future appointments. [facility] [address] [place] [id number] Medical Decision Making: Discharge >30 minutes, [id number]: Total time personally spent today, including mexx-nv-tkwh with patient and/or caregiver(s), as well as psd-oueh-wx-face time spent in care coordination, consultation,reviewing records, and documentation was 40 minutes. Signed: DEVANTE KATHLEEN MD 05/28/2025, 1:59 PM [1] Allergies Allergen Reactions Aleve [Naproxen Sodium] Cristina [Fexofenadine] * Ant Dominguez RN - 05/28/2025 11:26 AM EDT [facility] Care Management Discharge Summary Patient name: Laura Mallory Patient : 1960 Age: 64 y.o. Gender: female Patient emergency contact: Extended Emergency Contact Information Primary Emergency Contact: ShawneeAdal [address]: [address] [place] [address] Relation: Spouse Attending provider: Devante Kathleen MD Primary care physician: MANAS JENKINS MD The MD has indicated that the patient is ready for discharge. Laura Mallory was referred and [facility] at [facility] [phone] . The patient will be transported by [...] Services at Home post discharge: Home Health Assisted Health Care Name/Phone # post discharge: [facility] [phone] Home Health Services Types at Discharge: PT/OT/MANAGER ELECTRICAL Ant Dominguez RN [phone] documented in this encounter Discharge Instructions * Discharge Instructions* Lan Jacobs - 05/28/2025 12:23 PM EDT Thank you for choosing [facility]! You were treated for septic shock. [...] that have not beenscheduled yet, when our zoo caretaker is able to schedule them (usually within [...] Daily Progress Note Patient: Laura Mallory Room: [place] [address] Code Status: Full Code Background / Hospital [...] hospital on 05/25/2025 as adirect admission from [facility] with shock and elevated liver [...] (60-65%) later in 2022; non-obstructiveCAD on remote [facility]. No sx of ACS. 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 - Hold home Linzess - Start MiraLAX [...] hypoperfusion injury. S/p 1 liter Normosol at [facility] + 1.5 liters crystalloid at OSH [...] Replete electrolytes PRN. - Nutrition: NPO - MANAGER ELECTRICAL eval: consult: not indicated at this time. [...] Admission Diagnosis: SEPTIC SHOCK Date: 05/26/2025 Room: [place] [address] Reviewed Pertinent hospital course: Yes Hospital Course [...] Pt Will be alert and oriented: x4 Compounder Goal : Pt will tolerate a bathing assessment. 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 to be met in: 2 weeks [...] Date Acute non-ST segment elevation myocardial infarction ([facility]) 02/26/2023 Anxiety Atherosclerosis of coronary artery without angina pectoris 02/26/2023 COPD (chronic obstructive pulmonary disease) ([facility]) Heart failure with improved ejection fraction (HFimpEF) ([facility]) Stress-induced cardiomyopathy 02/26/2023 Past Surgical History Past Surgical History: Procedure Laterality Date SECTION CHOLECYSTECTOMY HYSTERECTOMY [1] Patient Active Problem List Diagnosis Mastocytosis Shock Chronic anxiety Chronic diastolic (congestive) heart failure ([facility]) Gastroesophageal reflux disease without esophagitis * Juliana Andrea, PT - 05/26/2025 3:52 PM EDT Physical Therapy Physical Therapy Initial Assessment Name: Laura Mallory : 1960 Attending Physician: Eliud Lopez MD Admission Diagnosis: SEPTIC SHOCK Date: 05/26/2025 Room: [place] [address] Reviewed Pertinent hospital course: Yes Hospital Course [...] Long-term goal to be met by: 06/10/25 Compounder Goal : Pt will ascend/descend 5 stairs [...] Date Acute non-ST segment elevation myocardial infarction ([facility]) 02/26/2023 Anxiety Atherosclerosis of coronary artery without angina pectoris 02/26/2023 COPD (chronic obstructive pulmonary disease) ([facility]) Heart failure with improved ejection fraction (HFimpEF) ([facility]) Stress-induced cardiomyopathy 02/26/2023 Past Surgical History Past Surgical History: Procedure Laterality Date SECTION CHOLECYSTECTOMY HYSTERECTOMY [1] Patient Active Problem List Diagnosis Mastocytosis Shock Chronic anxiety Chronic diastolic (congestive) heart failure ([facility]) Gastroesophageal reflux disease without [...] and prayer. Please page our service at [phone] as needs arise for patient and/or family.Mars [...] Daily Progress Note Patient: Laura Mallory Room: [place] [address] Code Status: Full Code Background / Hospital [...] hospital on 05/25/2025 as adirect admission from [facility] with shock and elevated liver [...] (60-65%) later in 2022; non-obstructiveCAD on remote [facility]. No sx of ACS. 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 - Hold home Linzess - Start MiraLAX [...] hypoperfusion injury. S/p 1 liter Normosol at [facility] + 1.5 liters crystalloid at OSH [...] Replete electrolytes PRN. - Nutrition: NPO - MANAGER ELECTRICAL eval: consult: not indicated at this time. [...] This was an initial visit initiated by [facility] spiritual care consult to provide individual patient care. The visit was < 15 minutes and the patient's willingness to receive tire builder operator care is unknown at this time. Patient was asleep. Unable to determine needs at this time. Chaplains can be paged at [phone] if additional needs develop. Leonard Echevarria Jr., MDiv, [facility] Staff Financial Services Officer [place] [address] Office [phone] Pager [phone] * Eliud Lopez MD - 05/25/2025 9:18 [...] 30-40%->60-65%), COPD/asthma? HLD, anxiety, lumbago whopresented to [facility] w/ c/f septic shock and transaminitis. Has felt off for several days w/ nausea and occasional vomiting, abdominal pain, no diarrhea. Transferred to [facility] for further mgmt. BP 114/82 Pulse [...] update: To be updated by house staff [place] Consent: pending PT/OT: ordered Med list reviewed: [...] Blaine Whitlock - 05/25/2025 8:55 PM EDT [facility] Spiritual Care PATIENT NAME: Laura Mallory ROOM:[place] [address] Buddhism Affiliation:No hinduism on file Pt/family unavailable during attempt to visit. Spiritual care to re-attempt visit at a later time. Please page our service at [phone] as needs arise for patient and/or family. documented in this encounter H&P Notes * Audi Yates MD - 05/27/2025 12:56 PM EDT [facility] Internal Medicine - Transfer Acceptance Note Chief [...] dx on noct. 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 - Hold home linzess resume upon DC [...] PM EDT Hospital Medicine Attending Supervision Note [facility] // [facility] Laura Mallory was seen 05/27/25 on rounds [...] Management or Test Interpretation with: spoke to supervisor metal cans, discussed possibility of cholangitis or pneumonia for [...] are as follows: Principal Problem: Septic shock ([facility]) Active Problems: Coronary artery disease involving port graham coronary artery of port graham heart without angina pectoris Chronic anxiety Gastroesophageal reflux disease without esophagitis Morbid obesity ([facility]) Pneumonia of both lower lobes due to infectious organism Acute kidney injury ([facility]) Elevated LFTs Simple chronic bronchitis ([facility]) APARNA (obstructive sleep apnea) Acute respiratory failure with hypoxia ([facility]) Acute metabolic encephalopathy #Septic shock: #Bilateral pneumonia: [...] another specialty or practice, other licensed professional (PT/OT/MANAGER ELECTRICAL/RT), or a non-medical community professional: supervisor metal cans as above Labs reviewed (1 pt each): CBC, BMP, lactate, culture of blood Review of notes from a different specialty or different practice: ICU, hepatology notes DEVANTE KATHLEEN MD Attending Physician Division of [facility] Department of Internal Medicine Pager ID: [phone] 2:52 PM, 05/27/2025 * Cookie Abdul MD - 05/25/2025 9:18 PM EDT Department of Internal Medicine MICU History & Physical Laura Mallory Location: [place] [address] MICU admission date: 05/25/2025 Attending physician: Eliud Lopez MD Chief Concern Shock ([facility]) History of Presenting Illness Laura Mallory is a 64 y.o. female with h/o HFimpEF (LV EF julian 30-40% in 02/2023 in the setting of Takotsubo cardiomyopathy, most recently 60-65% in 05/2023), nonobstructive CAD, COPD (baseline room air), GERD, osteoarthritis, anxiety, chronic back pain, chart diagnosis of APARNA with no home nocturnalCPAP/BiPAP, who presents as a direct admission from [facility] with shock and elevated liver enzymes. History provided by patient and spouse. [place] weak and lightheaded this morning and had [...] Date Acute non-ST segment elevation myocardial infarction ([facility]) 02/26/2023 Anxiety Atherosclerosis of coronary artery without angina pectoris 02/26/2023 COPD (chronic obstructive pulmonary disease) ([facility]) Heart failure with improved ejection fraction (HFimpEF) ([facility]) Stress-induced cardiomyopathy 02/26/2023 Past Surgical History: Procedure Laterality Date SECTION CHOLECYSTECTOMY HYSTERECTOMY History reviewed. No pertinent family history. 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 Tobacco Use Smoking status: Former Types: Cigarettes Smokeless tobacco: Never Tobacco comments: Former 2 PPD cigarette smoker, quit ~2004 Substance Use Topics Alcohol use: No Allergies[1] Medications Home medications: Reviewed and reconciled in [facility]. Inpatient medications: Scheduled: [START ON [...] Daily 0900 Continuous: PERIPHERAL norepinephrine Stopped (05/25/25 7567) PRN:[START ON 05/26/2025] acetaminophen, albuterol, dextrose 10% [...] is a 64 y.o. female with Shock ([facility]). Neurology / Pain / Sedation # [...] (60-65%) later in 2022; non-obstructiveCAD on remote [facility]. No sx of ACS. EKG low voltage [...] injury. 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 - Hold home Linzess - Start MiraLAX [...] This note was produced with the assistance [employer] dictation software. As a result, errors may [...] this encounter Consult Notes * Misty Silveira CCC-MANAGER ELECTRICAL - 05/27/2025 10:56 AM EDT Speech Language Pathology Clinical Swallow Assessment Name: Laura Mallory : 1960 Attending Physician: Willem Shin DO Admission Diagnosis: SEPTIC SHOCK Date: 05/27/2025 Reviewed Pertinent hospital course: Yes Hospital Course MANAGER ELECTRICAL: Pt is a 64YOF admitted to [facility] 05/25/2025 from [facility] w/ shock & elevated liver enzymes. PMHx significant for Takotsubo cardiomyopathy, nonobstructive CAD, COPD (baseline RA), GERD, osteoarthritis, anxiety, chronic back pain, APARNA (no CPAP/BiPAP), & former smoker. Imaging: Chest xray 05/25/2025: Streaky left basilar airspace disease. Right lung is grossly clear. MANAGER ELECTRICAL Hx: No previous MANAGER ELECTRICAL services at [facility]. Assessment: Patient presents with increased risk [...] pt has difficulty following commands [facility]; per , this is not normal for her as she is typically sharp as a tack . noticed this change in cognition just since hospitalization. MANAGER ELECTRICAL encouraged pt/family to reach out to medical team should mentation not improve w/in the next few days & MANAGER ELECTRICAL can assess cognition at that time. Pt/ voiced understanding. Medical team notified of pt's UE jerky movements during self-feeding attempts as well. Plan/Recommendation: - Diet: Regular (IDDSI 7) with Thin Liquids (IDDSI 0) - Medication Administration: whole with liquid - MANAGER ELECTRICAL while inpatient: 1-2x follow-up - MANAGER ELECTRICAL services after discharge:pending pt's performance Orientation: Person: [...] educated on, Family educated on, role of MANAGER ELECTRICAL, current POC, swallowing anatomy & physiology, safe [...] $Clinical Swallow: 1 Procedure Misty Silveira MS, CCC-MANAGER ELECTRICAL Speech-Language Pathology Rehabilitation Services Patient Class Inpatient * Stevie Hernandez MD - 05/26/2025 5:06 PM EDTAssociated Order(s): IP CONSULT TO [facility] HEPATOLOGY CONSULT NOTE Referring Physician: Eliud Lopez MD Consult Attending: Joseph 05/26/2025 5:06 PM Reason for Consult: elevated liver enzymes Laura Mallory is a 64 y.o. female with heart failure in setting of Takotsubo cardiomyopathy, CAD, COPD, s/p CCY who was transferred from [facility] for further evaluation of shock and abnormal liver enzymes. Initially experienced abdominal pain, cramping RUQ pain, nausea, vomiting for about 1 w [employer] [place]. At outside facility, she was hypoxic, hypotensive, and required levophed. Labs notable for wbc28.5, AST 990, ALT 538, Tbili 3, alk phos 437. RUQ US with surgically absent GB and mildly dilated portal vein without biliary ductal dilatation. CT abdomen/pelvis demonstrated a normal liver, unremarkable intra- and extra-hepatic bile ducts, normal pancreas. She was given vancomycin, cefepime, andflagyl and transferred to [facility]. Pressors were able to be weaned. Liver enzymes with improvement. INR 1.1. Denies prior history of liver disease. No significant alcohol consumption. Problem List Principal Problem: Shock History Past Medical History: Diagnosis Date Acute non-ST segment elevation myocardial infarction (CMS-HCC) 02/26/2023 Anxiety Atherosclerosis of coronary artery without angina pectoris 02/26/2023 COPD (chronic obstructive pulmonary disease) ([facility]) Heart failure with improved ejection fraction (HFimpEF) ([facility]) Stress-induced cardiomyopathy 02/26/2023 Past [...] 0757 famotidine 20 mg Daily 899 Cookie Abdlu MD 20 mg at 05/26/25 0757 glucose [...] COPD, s/p CCY who was transferred from [facility] for further evaluation of shock and abnormal [...] EDTAssociated Order(s): IP CONSULT TO NUTRITION SERVICES [facility] Medical Nutrition Therapy Reason(s) for Completion: Physician/Nursing [...] hospital on 05/25/2025 as adirect admission from [facility] with shock and elevated liver [...] Scale Score: 16 GI: Last BM Date: (AIR BRAKES INSPECTOR) Problem List[1] Past Medical History: Diagnosis Date Acute non-ST segment elevation myocardial infarction (CMS-HCC) 02/26/2023 Anxiety Atherosclerosis of coronary artery without angina pectoris 02/26/2023 COPD (chronic obstructive pulmonary disease) ([facility]) Heart failure with improved ejection fraction (HFimpEF) ([facility]) Stress-induced cardiomyopathy 02/26/2023 Scheduled Meds: aspirin 81 [...] access to food: none noted Food Allergies/Intolerances: [facility] Cultural Requests: None 64 y.o. Female Ht Readings from Last 1 Encounters: 05/25/25 5' 5 (1.651 m) Wt Readings from Last 1 Encounters: 05/26/25 (!) 271 lb 13.2 oz (123.3 kg) Body mass index is 45.23 kg/m??. BMI Category: Class 3 (40.00 - and above) BMI [place] Body Weight: 125 lb (56.8 kg) +/- 10% Wt Readings from Last 25 Encounters: 05/26/25 (!) 271 lb 13.2 oz (123.3 kg) 10/14/17 (!) 311 lb (141.1 kg) Weight Change: limited weight hx Estimated Nutrition Needs: Needs based On: 56.8 kg IBW Kcals/day: 1965-7251 (22-25 kcal/kg) Protein g/day: 114 (2 g/kg) [...] Physician: Advance diet as medically feasible, consider MANAGER ELECTRICAL eval given reports of difficulty chewing/swallowing. Continue to monitor diet changes, weights and nutrition related labs. 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 Spouse did not remember her name. Patient [...] independent with her ADLs. Both spouse and zvstufhw-kb-ztn is available to assist patient if needed. [...] No Status & Connection to [facility] [place] Status & Connection to [place] [facility] Are you a ?: No Support Systems Emergency contact: Extended Emergency Contact Information Primary Emergency Contact: Adal Mallory Address: [address] [place] Relation: Spouse Support Systems Legal Status: (Spouse stated patient does not have a HCPOA Document on file at [facility]. Patient's spouse is her CARMEN Mallory ([phone]).) Name of Guardian/POA/ Payee and Phone Number: Spouse stated patient does not have a HCPOA Document on file at [facility]. Patient's spouse is her CARMEN Mallory ([phone]). Primary Caregiver: Spouse Caregiver name/phone number: Patient's spouse is her CARMEN Mallory ([phone]). Times of available support: Total 24/7 hands on (add comment) Marital Status: Number of children and their names: Two adult children Relative Search Completed: No Demographics Correct:: Yes Expected Discharge Disposition: Home Next of Kin: Patient's spouse is her CARMEN Mallory ([phone]). Next of Kin Relationship: Spouse Next of Kin Phone Number: Patient's spouse is her CARMEN Mallory ([phone]). 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 Spouse did not remember her name. Patient is currently being managed by her therapist, there are no new consults. Spouse stated patient is independent with her ADLs. Both spouse and [id number] are available to assist patient if needed. The family are able to provide 24/7 support. Spouse stated patient does not have a HCPOA Document on file at [facility]. Patient's spouse is her CARMEN Mallory ([phone]). Community Services at Home: DME Current: Cane, [...] as appropriate. HOLLY GIORDANO RN Phone Number: [phone] documented in this encounter Nursing Notes * Shiloh Chand RN - 05/28/2025 1:31 PM EDT AVS reviewed with pt and . PIV's removed, pt assisted in getting dressed. directed on where discharge pharmacy is for pt's discharge abx. [facility]. * Dalila Burns RN - 05/27/2025 6:58 PM EDT Nursing Day Shift Progress Note Significant Events During Shift Patient bladder scanned, patient pulled out purewick due to being confused. 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 Patient/Family Concerns Visitors: none [...] 05/27/2025 3:52 PM EDT Patient transported to [facility], belongings at bedside, report given to bedside [...] Dominguez RN - 05/28/2025 11:26 AM EDT [facility] Coke Loader/Social Work Discharge Needs Assessment Laura Mallory [id number] 64 y.o. female White or Sepsis (CMS-HCC) [A41.9] Treatment Preferences Treatment Preferences: Other (provide comment) (n/a) Post-Discharge Goals Patient's Post-Discharge goals: medical stability and management Discharge Needs Assessment Home Health Services agency list provided: Yes Ant Dominguez RN [phone] * Care Coordination - Ant Dominguez RN - 05/28/2025 10:52 AM EDT [facility]OY notified by that pt might be medically ready today and needing Home PT/OT. CM sent referrals for [facility] and awaiting response. Update 1104am- Pt setup with [facility] for Home PT/OT. CM updated medical team and requested HHC orders. Ant Dominguez RN [phone] * Home Health Care Note - Devante Kathleen MD - 05/28/2025 10:46 AM EDT Images from the original note were not included. REFERRAL FOR HOME HEALTH SERVICES FORM Patient name: Laura Mallory Patient : 1960 Age: 64 y.o. Gender: female SSN: [id number] Address: [address] [place] [address] Phone number: There are no phone numbers on file. Patient emergency contact: Extended Emergency Contact Information Primary Emergency Contact: Adal Mallory [address]: [address] [place] [address] Relation: Spouse Date of admission: 05/25/2025 Date of discharge: 05/28/2025 Attending provider: Devante Kathleen MD Primary care physician: MANAS JENKINS MD Code status: Full Code Allergies: Allergies[1] Insurance Information Insurance Information MEDICARE/MEDICARE A AND B Phone: -- Subscriber: Laura Mallory Subscriber#: [id number] Group#: -- Precert#: -- Authorization#: -- Effective Date: -- [employer] [facility]/[employer] [place] [employer] MED[employer] Subscriber: Laura Mallory Subscriber#: [id number] Group#: [id number] Precert#: -- Authorization#: -- Effective Date: -- Diagnoses Present on Admission Primary Diagnosis: Septic shock ([facility]) Discharge Diagnosis : Active Hospital Problems Diagnosis Date Noted Septic shock, resolved [A41.9, R65.21] 05/25/2025 Morbid obesity ([facility]) [E66.01] 05/27/2025 Pneumonia of both lower lobes due to infectious organism [J18.9] 05/27/2025 Elevated LFTs [R79.89] 05/27/2025 Simple chronic bronchitis ([facility]) [J41.0] 05/27/2025 APARNA (obstructive sleep apnea) [G47.33] 05/27/2025 Acute respiratory failure with hypoxia ([facility]) [J96.01] 05/27/2025 Acute metabolic encephalopathy [G93.41] 05/27/2025 HFimpEF [I50.22] 05/27/2025 Opioid-induced constipation [K59.03, T40.2X5A] 05/27/2025 Chronic back+knee pain with R-sided sciatica [M54.9, G89.29] 05/27/2025 Coronary artery disease involving [place] coronary artery of [place] heart without angina pectoris [I25.10] 02/26/2023 Gastroesophageal reflux disease without esophagitis [K21.9] 05/02/2022 Chronic anxiety [F41.9] 05/02/2022 Resolved Hospital Problems Diagnosis Date Noted Date Resolved Acute kidney injury ([facility]) [N17.9] 05/27/2025 05/27/2025 Prognosis: good Rehabilitation potential: [...] effort and are for medical reasons or restoration services or infrequently or short duration when for other reasons) due to deconditioning it would be a taxing effort to receive outpatient services. My signature below is to certify that this patient is under my care and that I, or nurse practitioner, or a physician social and human services assistant working with me, had a [id number] encounter with this is patient on: 05/28/2025 Follow-up Appointments and Post Hospital Discharge Physician Name No future appointments. [facility] [address] [address] Discharging Physician Signature and Credentials Discharging Physician: Electronically signed by DEVANTE KATHLEEN MD 05/28/2025, 12:55 PM Physician to follow up Information PCP: MANAS JENKINS MD PCP address: [address] [facility] [address] PCP phone number: [phone] PCP fax number: [phone] If PCP is not following patient, type physician contact information here: Patient will be followed by PCP Terrestrial Ecologist and Credentials Provider/Company Name and Contact Number: Community Services at Discharge Community Services at Home post discharge: Home Health Assisted Health Care Name/Phone # post discharge: [facility] [phone] Home Health Services Types at Discharge: PT/OT/MANAGER ELECTRICAL \ [1] Allergies Allergen Reactions Aleve [Naproxen [...] Patient will remain free of falls Goal: [place] Fall Precautions Outcome: Progressing Problem: Daily Care [...] Patient will remain free of falls Goal: [place] Fall Precautions Outcome: Progressing Problem: Daily Care [...] needs Outcome: Progressing * Hospital Course - [facility] - 05/27/2025 3:37 PM EDT #Shock, [...] (60-65%) later in 2022; non-obstructiveCAD on remote [facility]. No sx of ACS. EKG low voltage but no signs of ACS. TTE 05/26 with EF 55-60%, no concerns. Last BNP 162 but on entresto at home. Chest imaging w/o pulmonary edema. Able to resume homemedications as shock has resolved. 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 - Resume home Linzess - Miralax BID, [...] reaction to sumatriptan. Suggested follow-up with PCP. #AAPRNA Recommend outpatient sleep study * Plan of [...] Patient will remain free of falls Goal: [place] Fall Precautions Outcome: Progressing Problem: Daily Care [...] Patient will remain free of falls Goal: [place] Fall Precautions Outcome: Not Progressing Problem: Potential [...] Giordano RN - 05/26/2025 1:11 PM EDT [facility] Case Management/Social Work Department Progress Note Patient Information Patient Name: Laura Mallory Hospital day: 1 Inpatient/Observation: Inpatient Level of Care: MICU LOC Admit date: 05/25/2025 Admission diagnosis: SEPTIC SHOCK PMH: has a past medical history of Acute non-ST segment elevation myocardial infarction ([facility]) (02/26/2023), Anxiety, Atherosclerosis of coronary artery without angina pectoris (02/26/2023), COPD (chronic obstructive pulmonary disease) ([facility]), Heart failure with improved ejection fraction (HFimpEF) ([facility]), and Stress-induced cardiomyopathy (02/26/2023). PCP: MANAS JENKINS [...] hospital on 05/25/2025 as adirect admission from [facility] with shock and elevated liver [...] Patient will remain free of falls Goal: [place] Fall Precautions Outcome: Progressing documented in this [...] - 1.5 mg/dL 05/28/2025 6:06 AM EDT LAB Bilirubin, Direct 0.08 0.00 - 0.40 mg/dL 05/28/2025 6:06 AM EDT LAB Comment:HEMOLYSIS EVIDENT. D IRECT BILIRUBIN CONCENTRATIONS MAY BE FALSELY DECREASED IN THE PRESENCE OF HEMOLYSIS. INTERPRET WITH CAUTION. AST 71(H) 13 - 39 U/L 05/28/2025 6:06 AM EDT LAB ALT 137(H) 7 - 52 U/L 05/28/2025 6:06 AM EDT LAB Alkaline Phosphatase 231(H) 36 - 125 U/L 05/28/2025 6:06 AM EDT LAB Total Protein 6.3(L) 6.4 - 8.9 g/dL 05/28/2025 6:06 AM EDT LAB Albumin 3.2(L) 3.5 - 5.7 g/dL 05/28/2025 6:06 AM EDT LAB Bilirubin, Indirect 0.62 0.00 - 1.10 mg/dL 05/28/2025 6:06 AM EDT LAB Plasma 05/28/2025 4:27 AM EDT 05/28/2025 5:27 AM EDT us Estrada Nelson DO LAB BLOOD ORDERABLES Final Resu lt LAB [address] [place] [address], [facility] * (ABNORMAL) Renal Function Panel w/EGFR (05/28/2025 4:27 AM EDT) Sodium 139 133 - 146 mmol/L 05/28/2025 6:06 AM EDT LAB Potassium 4.3 3.5 - 5.3 mmol/L 05/28/2025 6:06 AM EDT LAB Comment:Hemolysis Present: R esults may be influenced artificially. Recommend recollection as clinically indicated. Chloride 108 98 - 110 mmol/L 05/28/2025 6:06 AM EDT LAB CO2 22 21 - 33 mmol/L 05/28/2025 6:06 AM EDT LAB Anion Gap 9 3 - 16 mmol/L 05/28/2025 6:06 AM EDT LAB BUN 12 7 - 25 mg/dL 05/28/2025 6:06 AM EDT LAB Creatinine 0.71 0.60 - 1.30 mg/dL 05/28/2025 6:06 AM EDT LAB Glucose 81 70 - 100 mg/dL 05/28/2025 6:06 AM EDT LAB Calcium 8.3(L) 8.6 - 10.3 mg/dL 05/28/2025 6:06 AM EDT LAB Phosphorus 2.7 2.1 - 4.5 mg/dL 05/28/2025 6:06 AM EDT LAB Comment:HEMOLYSIS EVIDENT. R ESULTS MAY BE INFLUENCED. Albumin 3.2(L) 3.5 - 5.7 g/dL 05/28/2025 6:06 AM EDT LAB Osmolality, Calculated 287 278 - 305 mOsm/kg 05/28/2025 6:06 AM EDT LAB EGFR >90 05/28/2025 6:06 AM EDT LAB Comment: As of 2022, the estimated [...] DO LAB BLOOD ORDERABLES Final Resu lt LAB [address] * Magnesium (05/28/2025 4:27 AM EDT) Magnesium 2.0 1.5 - 2.5 mg/dL 05/28/2025 6:06 AM EDT LAB Comment:HEMOLYSIS EVIDENT. R ESULTS MAY BE INFLUENCED. Plasma 05/28/2025 4:27 AM EDT 05/28/2025 5:27 AM EDT us Estrada Still DO LAB BLOOD ORDERABLES Final Resu lt LAB [address] * (ABNORMAL) CBC (05/28/2025 4:27 AM EDT) Pathologist [facility] WBC 9.0 3.8 - 10.8 10E3/uL 05/28/2025 5:38 AM EDT LAB RBC 3.02(L) 3.80 - 5.10 10E6/uL 05/28/2025 5:38 AM EDT LAB Hemoglobin 9.2(L) 11.7 - 15.5 g/dL 05/28/2025 5:38 AM EDT LAB Hematocrit 27.9(L) 35.0 - 45.0 % 05/28/2025 5:38 AM EDT LAB MCV 92.6 80.0 - 100.0 fL 05/28/2025 5:38 AM EDT LAB MCH 30.6 27.0 - 33.0 pg 05/28/2025 5:38 AM EDT LAB MCHC 33.1 32.0 - 36.0 g/dL 05/28/2025 5:38 AM EDT LAB RDW 18.2(H) 11.0 - 15.0 % 05/28/2025 5:38 AM EDT LAB Platelets 235 140 - 400 10E3/uL 05/28/2025 5:38 AM EDT LAB MPV 8.7 7.5 - 11.5 fL 05/28/2025 5:38 AM EDT LAB Whole Blood 05/28/2025 4:27 AM EDT 05/28/2025 5:27 AM EDT us Estrada Nelson DO LAB BLOOD ORDERABLES Final Resu lt LAB [address] * (ABNORMAL) POC Glucose Monitoring Device (05/27/2025 11:34 PM EDT) POC Glucose Monitoring Device 150(H) 70 - 100 mg/dL 05/27/2025 11:34 PM EDT LAB Blood 05/27/2025 11:3 4 PM EDT 05/27/2025 11:34 PM EDT Willem Shin DO POINT OF CARE TEST ORDERABLE S Final Result Performing Organization Address City/[facility]/ZIP Co de Phone Number LAB [address] [facility] * Strep Pneumo-Legionella Urine Antigen (05/27/2025 2:11 PM EDT) Strept Pneumo Ag Negative Negative 05/28/2025 3:11 AM EDT LAB Legionella Antigen Negative Negative 05/28/2025 3:11 AM EDT LAB Urine 05/27/2025 2:11 PM EDT 05/28/2025 2:05 AM EDT Narrative LAB - 05/28/2025 3:11 AM EDT Positive indicates detection of either Streptococcus pneumoniae antigen or Legionella pneumophila serogroup 1 antigen. Negative results do not rule out pneumococcal infection or infection with L. pneumophila serogroup 1, other serogroups of L. pneumophila, or other Legionella species. Audi Yates MD URINE ORDERABLES Final Result Performing Organization Address [facility] Co de Phone Number LAB [address] [facility] * POC Glucose Monitoring Device (05/27/2025 1:14 PM EDT) POC Glucose Monitoring Device 81 70 - 100 mg/dL 05/27/2025 1:15 PM EDT LAB Blood 05/27/2025 1:14 PM EDT 05/27/2025 1:15 PM EDT Willem Shin DO POINT OF CARE TEST ORDERABLE S Final Result LAB [address] * (ABNORMAL) Venous Blood Gas, Line/Syringe, STAT (05/27/2025 1:11 PM EDT) PH-Line Draw 7.27(L) 7.32 - 7.42 05/27/2025 1:21 PM EDT LAB PCO2-Line Draw 50 41 - 51 mm Hg 05/27/2025 1:21 PM EDT LAB PO2-Line Draw 44(H) 25 - 40 mm Hg 05/27/2025 1:21 PM EDT LAB HCO3-Line Draw 21(L) 24 - 28 mmol/L 05/27/2025 1:21 PM EDT LAB CO2 Content-Line Draw 25 25 - 29 mmol/L 05/27/2025 1:21 PM EDT LAB Base Excess-Line Draw -4.0(L) -2.0 - 3.0 mmol/L 05/27/2025 1:21 PM EDT LAB %HBO2-Line Draw 69.1 40.0 - 70.0 % 05/27/2025 1:21 PM EDT LAB Carboxyhgb-Joi e Draw 1.1 % 05/27/2025 1:21 PM EDT LAB Comment: CARBOXYHEMOGLOBIN (CO) REFERENCE RANGES: Non-Smokers: <2 % Smokers: <8 % TOXIC: >20 % Methemoglobin- Line Draw 0.0 0.0 - 1.5 % 05/27/2025 1:21 PM EDT LAB Reduced Hemoglobin-Joi e Draw 29.8(H) 0.0 - 5.0 % 05/27/2025 1:21 PM EDT LAB Venous, Line Draw 05/27/2025 1:11 PM EDT 05/27/2025 1:18 PM EDT us Estrada Demetri DO LAB BLOOD ORDERABLES Final Resu lt LAB [address] [facility]. [address] * YAHAIRA Rhythm Strip - Scan (05/27/2025 8:44 AM EDT) us Scanning Uchhim SCAN DOCS - NO RESULTS Final Res ult * (ABNORMAL) Hepatic Function Panel, AM (05/27/2025 12:41 AM EDT) Total Bilirubin 0.9 0.0 - 1.5 mg/dL 05/27/2025 1:17 AM EDT LAB Bilirubin, Direct 0.30 0.00 - 0.40 mg/dL 05/27/2025 1:17 AM EDT LAB AST 171(H) 13 - 39 U/L 05/27/2025 1:17 AM EDT LAB ALT 239(H) 7 - 52 U/L 05/27/2025 1:17 AM EDT LAB Alkaline Phosphatase 295(H) 36 - 125 U/L 05/27/2025 1:17 AM EDT LAB Total Protein 6.5 6.4 - 8.9 g/dL 05/27/2025 1:17 AM EDT LAB Albumin 3.4(L) 3.5 - 5.7 g/dL 05/27/2025 1:17 AM EDT LAB Bilirubin, Indirect 0.60 0.00 - 1.10 mg/dL 05/27/2025 1:17 AM EDT LAB Plasma 05/27/2025 12:4 1 AM EDT 05/27/2025 12:45 AM EDT us Denisse Albert DO LAB BLOOD ORDERABLES Final Resul t LAB [address] [address], [facility] * Magnesium, AM (05/27/2025 12:41 AM EDT) Magnesium 2.1 1.5 - 2.5 mg/dL 05/27/2025 1:17 AM EDT LAB Plasma 05/27/2025 12:4 1 AM EDT 05/27/2025 12:45 AM EDT us Denisse Albert DO LAB BLOOD ORDERABLES Final Resul t LAB [address] [place] [address], [facility] * (ABNORMAL) Renal Function Panel w/EGFR (05/27/2025 12:41 AM EDT) Sodium 139 133 - 146 mmol/L 05/27/2025 1:17 AM EDT LAB Potassium 4.4 3.5 - 5.3 mmol/L 05/27/2025 1:17 AM EDT LAB Chloride 108 98 - 110 mmol/L 05/27/2025 1:17 AM EDT LAB CO2 23 21 - 33 mmol/L 05/27/2025 1:17 AM EDT LAB Anion Gap 8 3 - 16 mmol/L 05/27/2025 1:17 AM EDT LAB BUN 16 7 - 25 mg/dL 05/27/2025 1:17 AM EDT LAB Creatinine 0.91 0.60 - 1.30 mg/dL 05/27/2025 1:17 AM EDT LAB Glucose 122(H) 70 - 100 mg/dL 05/27/2025 1:17 AM EDT LAB Calcium 8.3(L) 8.6 - 10.3 mg/dL 05/27/2025 1:17 AM EDT LAB Phosphorus 3.0 2.1 - 4.5 mg/dL 05/27/2025 1:17 AM EDT LAB Albumin 3.4(L) 3.5 - 5.7 g/dL 05/27/2025 1:17 AM EDT LAB Osmolality, Calculated 290 278 - 305 mOsm/kg 05/27/2025 1:17 AM EDT LAB EGFR 70 05/27/2025 1:17 AM EDT LAB Comment:As of 2022, the estimated GFR [...] DO LAB BLOOD ORDERABLES Final Resul t LAB [address] [address], [facility] * (ABNORMAL) CBC, AM (05/27/2025 12:41 AM EDT) WBC 21.8(H) 3.8 - 10.8 10E3/uL 05/27/2025 12:54 AM EDT LAB RBC 3.24(L) 3.80 - 5.10 10E6/uL 05/27/2025 12:54 AM EDT LAB Hemoglobin 9.8(L) 11.7 - 15.5 g/dL 05/27/2025 12:54 AM EDT LAB Hematocrit 30.1(L) 35.0 - 45.0 % 05/27/2025 12:54 AM EDT LAB MCV 92.9 80.0 - 100.0 fL 05/27/2025 12:54 AM EDT LAB MCH 30.3 27.0 - 33.0 pg 05/27/2025 12:54 AM EDT LAB MCHC 32.6 32.0 - 36.0 g/dL 05/27/2025 12:54 AM EDT LAB RDW 19.2(H) 11.0 - 15.0 % 05/27/2025 12:54 AM EDT LAB Platelets 247 140 - 400 10E3/uL 05/27/2025 12:54 AM EDT LAB MPV 8.7 7.5 - 11.5 fL 05/27/2025 12:54 AM EDT LAB Whole Blood 05/27/2025 12:4 1 AM EDT 05/27/2025 12:45 AM EDT Denisse Albert DO LAB BLOOD ORDERABLES Final Resul t Performing Organization Address [facility] Co de Phone Number LAB [address] [place] [address]. [address] * Hepatitis B Core IgM (05/26/2025 9:04 PM EDT) Hep B Core IgM Nonreactive Nonreactive 05/26/2025 10:32 PM EDT [facility] Serum 05/26/2025 9:04 PM EDT 05/26/2025 9:[address] [facility] LAB - 05/26/2025 10:32 PM EDT IgM anti-HBc not detected. Does not exclude the possibility of exposure to or infection with HBV. Cookie Abdul MD LAB BLOOD ORDERABLES Final Resu lt Performing Organization Address [facility] Co de Phone Number LAB [address] [place] [address]. [address] * (ABNORMAL) Hepatitis B Core Antibody (05/26/2025 9:04 PM EDT) Hep B Core Total Ab Reactive( A) Nonreactive 05/27/2025 12:02 AM EDT LAB Comment: Health Department notified in accordance with reportable infectious disease guidelines. Health Department notified in accordance with reportable infectious disease guidelines. Serum 05/26/2025 9:04 PM EDT 05/26/2025 9:07 PM EDT Narrative LAB - 05/27/2025 12:02 AM EDT A reactive final interpretation indicates presumptive evidence of HBV; anti-HBc antibodies were detected in the sample which suggests either on-going or previous HBV infection. us Cookie Abdul MD LAB BLOOD ORDERABLES Final Resu lt LAB [address] * YAHAIRA Rhythm Strip - Scan (05/26/2025 7:02 PM EDT) us Scanning Uchhim SCAN DOCS - NO RESULTS Final Res ult * YAHAIRA Rhythm Strip - Scan (05/26/2025 6:52 PM EDT) us Scanning Uchhim SCAN DOCS - NO RESULTS Final Res ult * Protime-INR (05/26/2025 3:02 PM EDT) Protime 14.6 12.1 - 15.1 seconds 05/26/2025 4:00 PM EDT LAB INR 1.1 0.9 - 1.1 05/26/2025 4:00 PM EDT LAB Comment: RECOMMENDED THERAPEUTIC RANGES USING INR : Stable oral anticoagulant therapy: 2.0 - 3.0 Mechanical prosthetic heart valve: 2.5 - 3.5 Recurrent acute myocardial infarction: 2.5 - 3.5 Plasma 05/26/2025 3:02 PM EDT 05/26/2025 3:06 PM EDT us Estrada Nelson DO LAB BLOOD ORDERABLES Final Resu lt Performing Organization Address City/[facility]/ZIP Co de Phone Number LAB [address] [facility]. [address] * (ABNORMAL) Hepatitis B Surface Antibody, Quantitative (05/26/2025 3:02 PM EDT) Hep B S Ab Reactive( A) Nonreactive 05/26/2025 7:37 PM EDT LAB HBSAB NUMBER >500.00(H ) 0.00 - 7.99 mIU/mL 05/26/2025 7:37 PM EDT LAB Serum 05/26/2025 3:02 PM EDT 05/26/2025 3:[address] [facility] LAB - 05/26/2025 7:37 PM EDT Individual is considered immune to HBV infection. us Lewis Connelly MD LAB BLOOD ORDERABLES Final Resul t Performing Organization Address [facility] de Phone Number [facility] [address] [place] [address]. [address] * (ABNORMAL) Hepatitis B Core Antibody (05/26/2025 3:02 PM EDT) Hep B Core Total Ab Reactive( A) Nonreactive 05/26/2025 11:30 PM EDT LAB Comment: Health Department notified in accordance with reportable infectious disease guidelines. Health Department notified in accordance with reportable infectious disease guidelines. Serum 05/26/2025 3:02 PM EDT 05/26/2025 3:[address] [facility] LAB - 05/26/2025 11:30 PM EDT A reactive final interpretation indicates presumptive evidence of HBV; anti-HBc antibodies were detected in the sample which suggests either on-going or previous HBV infection. us Lewis Connelly MD LAB BLOOD ORDERABLES Final Resul t Performing Organization Address [facility] de Phone Number [address] * Hepatitis A IgM (05/26/2025 3:02 PM EDT) Hep A IgM Nonreactive Nonreactive 05/26/2025 7:36 PM EDT [facility] Serum 05/26/2025 3:02 PM EDT 05/26/2025 3:[address] [facility] LAB - 05/26/2025 7:36 PM EDT IgM anti-HAV not detected. Does not exclude the possibility of exposure to or infection with HAV. Levels of IgM anti-HAV may be below the cut-off in early infection. us Lewis Connelly MD LAB BLOOD ORDERABLES Final Resul t Performing Organization Address City/[facility] Co de Phone Number LAB [address] [facility]. [address] * Hepatitis C Antibody (05/26/2025 3:02 PM EDT) HCV Ab Nonreactive Nonreactive 05/26/2025 7:36 PM EDT LAB Comment:Health Department no tified in accordance with reportable infectious disease guidelines. Serum 05/26/2025 3:02 PM EDT 05/26/2025 3:[address] [facility] LAB - 05/26/2025 7:36 PM EDT Antibodies to HCV not detected; does not exclude the possibility of exposure to HCV. us Lewis Connelly MD LAB BLOOD ORDERABLES Final Resul t Performing Organization Address [facility] Co de Phone Number LAB [address] [facility]. [address] * Hepatitis B Surface Antigen (05/26/2025 3:02 PM EDT) Hep B Surface Ag Nonreactive Nonreactive 05/26/2025 7:36 PM EDT LAB Comment:Health Department no tified in accordance with reportable infectious disease guidelines. Serum 05/26/2025 3:02 PM EDT 05/26/2025 3:[address] [facility] LAB - 05/26/2025 7:36 PM EDT Specimen is considered negative for HBsAg. us Lewis Connelly MD LAB BLOOD ORDERABLES Final Resul t Performing Organization Address City/[facility]/ZIP Co de Phone Number LAB [address] [facility]. [address] * (ABNORMAL) Hepatic Function Panel, STAT (05/26/2025 3:02 PM EDT) Total Bilirubin 1.2 0.0 - 1.5 mg/dL 05/26/2025 5:18 PM EDT LAB Bilirubin, Direct 0.60(H) 0.00 - 0.40 mg/dL 05/26/2025 5:18 PM EDT LAB AST 223(H) 13 - 39 U/L 05/26/2025 5:18 PM EDT LAB ALT 269(H) 7 - 52 U/L 05/26/2025 5:18 PM EDT LAB Alkaline Phosphatase 303(H) 36 - 125 U/L 05/26/2025 5:18 PM EDT LAB Total Protein 6.4 6.4 - 8.9 g/dL 05/26/2025 5:18 PM EDT LAB Albumin 3.3(L) 3.5 - 5.7 g/dL 05/26/2025 5:18 PM EDT LAB Bilirubin, Indirect 0.60 0.00 - 1.10 mg/dL 05/26/2025 5:18 PM EDT LAB Plasma 05/26/2025 3:02 PM EDT 05/26/2025 3:06 PM EDT us Estrada Nelson DO LAB BLOOD ORDERABLES Final Resu lt LAB [address] [place] [address], [facility] * (ABNORMAL) Renal Function Panel w/EGFR, STAT (05/26/2025 3:02 PM EDT) Sodium 136 133 - 146 mmol/L 05/26/2025 5:18 PM EDT LAB Potassium 4.1 3.5 - 5.3 mmol/L 05/26/2025 5:18 PM EDT LAB Chloride 107 98 - 110 mmol/L 05/26/2025 5:18 PM EDT LAB CO2 21 21 - 33 mmol/L 05/26/2025 5:18 PM EDT LAB Anion Gap 8 3 - 16 mmol/L 05/26/2025 5:18 PM EDT LAB BUN 18 7 - 25 mg/dL 05/26/2025 5:18 PM EDT LAB Creatinine 0.96 0.60 - 1.30 mg/dL 05/26/2025 5:18 PM EDT LAB Glucose 118(H) 70 - 100 mg/dL 05/26/2025 5:18 PM EDT LAB Calcium 8.7 8.6 - 10.3 mg/dL 05/26/2025 5:18 PM EDT LAB Phosphorus 3.8 2.1 - 4.5 mg/dL 05/26/2025 5:18 PM EDT LAB Albumin 3.3(L) 3.5 - 5.7 g/dL 05/26/2025 5:18 PM EDT LAB Osmolality, Calculated 285 278 - 305 mOsm/kg 05/26/2025 5:18 PM EDT LAB EGFR 66 05/26/2025 5:18 PM EDT LAB Comment:As of 2022, the estimated GFR [...] DO LAB BLOOD ORDERABLES Final Resu lt LAB [address] [place] [address], [facility] * (ABNORMAL) Venous Blood Gas, Line/Syringe, STAT (05/26/2025 2:49 PM EDT) PH-Line Draw 7.25(L) 7.32 - 7.42 05/26/2025 3:10 PM EDT LAB PCO2-Line Draw 49 41 - 51 mm Hg 05/26/2025 3:10 PM EDT LAB PO2-Line Draw 55(H) 25 - 40 mm Hg 05/26/2025 3:10 PM EDT LAB HCO3-Line Draw 20(L) 24 - 28 mmol/L 05/26/2025 3:10 PM EDT LAB CO2 Content-Line Draw 23(L) 25 - 29 mmol/L 05/26/2025 3:10 PM EDT LAB Base Excess-Line Draw -5.6(L) -2.0 - 3.0 mmol/L 05/26/2025 3:10 PM EDT LAB %HBO2-Line Draw 84.7(H) 40.0 - 70.0 % 05/26/2025 3:10 PM EDT LAB Carboxyhgb-Joi e Draw 0.8 % 05/26/2025 3:10 PM EDT LAB Comment: CARBOXYHEMOGLOBIN (CO) REFERENCE RANGES: Non-Smokers: <2 % Smokers: <8 % TOXIC: >20 % Methemoglobin- Line Draw 0.0 0.0 - 1.5 % 05/26/2025 3:10 PM EDT LAB Reduced Hemoglobin-Joi e Draw 14.5(H) 0.0 - 5.0 % 05/26/2025 3:10 PM EDT LAB Venous, Line Draw 05/26/2025 2:49 PM EDT 05/26/2025 3:06 PM EDT Denisse Albert DO LAB BLOOD ORDERABLES Final Resul t LAB [address] [id number], [facility] * (ABNORMAL) POC Glucose Monitoring Device (05/26/2025 12:25 PM EDT) POC Glucose Monitoring Device 124(H) 70 - 100 mg/dL 05/26/2025 12:26 PM EDT LAB Blood 05/26/2025 12:2 5 PM EDT 05/26/2025 12:26 PM EDT Willem Shin DO POINT OF CARE TEST ORDERABLE S Final Result LAB [address] [place] [address], [facility] * (ABNORMAL) Renal Function Panel w/EGFR, STAT (05/26/2025 10:08 AM EDT) Sodium 139 133 - 146 mmol/L 05/26/2025 10:52 AM EDT LAB Potassium 4.7 3.5 - 5.3 mmol/L 05/26/2025 10:52 AM EDT LAB Comment:Hemolysis Present: R esults may be influenced artificially. Recommend recollection as clinically indicated. Chloride 110 98 - 110 mmol/L 05/26/2025 10:52 AM EDT LAB CO2 20(L) 21 - 33 mmol/L 05/26/2025 10:52 AM EDT LAB Anion Gap 9 3 - 16 mmol/L 05/26/2025 10:52 AM EDT LAB BUN 18 7 - 25 mg/dL 05/26/2025 10:52 AM EDT LAB Creatinine 0.89 0.60 - 1.30 mg/dL 05/26/2025 10:52 AM EDT LAB Glucose 108(H) 70 - 100 mg/dL 05/26/2025 10:52 AM EDT LAB Calcium 8.7 8.6 - 10.3 mg/dL 05/26/2025 10:52 AM EDT LAB Phosphorus 4.2 2.1 - 4.5 mg/dL 05/26/2025 10:52 AM EDT LAB Albumin 3.3(L) 3.5 - 5.7 g/dL 05/26/2025 10:52 AM EDT LAB Osmolality, Calculated 290 278 - 305 mOsm/kg 05/26/2025 10:52 AM EDT LAB EGFR 72 05/26/2025 10:52 AM EDT LAB Comment:As of 2022, the estimated GFR [...] ORDERABLES Final Resu lt Performing Organization Address [facility]/ZIP Co de Phone Number LAB [address] [place] [address] * Lactic Acid (05/26/2025 10:08 AM EDT) Lactate 0.8 0.5 - 2.2 mmol/L 05/26/2025 10:40 AM EDT LAB Plasma 05/26/2025 10:0 8 AM EDT 05/26/2025 10:17 AM EDT us Estrada Nelson DO LAB BLOOD ORDERABLES Final Resu lt Performing Organization Address City/[facility]/ZIP Co de Phone Number LAB [address] [place] [address] * ECHO COMPLETE W/ CONTRAST (05/26/2025 8:56 AM EDT) Anatomical Region Laterality Modality Chest Ultrasound 05/26/2025 8:13 AM EDT Narrative 05/26/2025 9:39 AM EDT * [facility]* [address] [place] [address] Transthoracic Echocardiogram Patient: Laura Mallory Room: [facility] Height: 65in MR Number: [id number] : 1960 Weight: 271lb Account: [id number] Gender: F BP: 91 / 59 Study Date: 05/26/2025 Age: 64 BSA: 2.25m^2 Referring physician: Cookie Abdul Interpreting physician: Eliu Burns MD PERFORMING Eliu Burns MD MARGARINE CHURN OPERATOR Marion Adam ORDERING Cookie Abdul REFERRING Chantell, Cookie ATTENDING Eliud Lopezpark Willem Marquezn Procedure:TRANSTHORACIC ECHO (TTE) Order: Accession COMPLETE Number:[id number] Indications: Heart Failure unspecified (I50.9). PMH: Coronary [...] Reviewed and confirmed by Eliu Burns MD [id number] Procedure Note Eliu Burns MD - 05/26/2025 * [facility]* [address] [place] [address] Transthoracic Echocardiogram Patient: Laura Mallory Room: [facility] Height: 65in MR Number: [id number] : 1960 Weight: 271lb Account: [id number] Gender: F BP: 91 / 59 Study Date: 05/26/2025 Age: 64 BSA: 2.25m^2 Referring physician: Cookie Abdul Interpreting physician: Eliu Burns MD PERFORMING Eliu Burns MD MARGARINE CHURN OPERATOR Marion Adam ORDERING Cookie Abdul REFERRING Cookie Abdul ATTENDING Eliud LopezWillem nickn Procedure:TRANSTHORACIC ECHO (TTE) Order: Accession COMPLETE Number:[id number] Indications: Heart Failure unspecified (I50.9). PMH: Coronary [...] Reviewed and confirmed by Eliu Burns MD [id number] Cookie Abdul MD CV ECHO ORDERABLES Final Result * (ABNORMAL) POC Glucose Monitoring Device (05/26/2025 8:47 AM EDT) [facility] POC Glucose Monitoring Device 106(H) 70 - 100 mg/dL 05/26/2025 8:47 AM EDT [facility] LAB Blood 05/26/2025 8:47 AM EDT 05/26/2025 8:47 AM EDT us Willem Shin DO POINT OF CARE TEST ORDERABLE S Final Result LAB [address] [place], [place] [address] * (ABNORMAL) Venous Blood Gas, Line/Syringe, STAT (05/26/2025 8:42 AM EDT) PH-Line Draw 7.19(LL) 7.32 - 7.42 05/26/2025 9:10 AM EDT LAB Comment: The critical result was called to, and read back by, licensed caregiver JELENA COYNE PCO2-Line Draw 51 41 - 51 mm Hg 05/26/2025 9:10 AM EDT LAB PO2-Line Draw 23(L) 25 - 40 mm Hg 05/26/2025 9:10 AM EDT LAB HCO3-Line Draw 17(L) 24 - 28 mmol/L 05/26/2025 9:10 AM EDT LAB CO2 Content-Line Draw 21(L) 25 - 29 mmol/L 05/26/2025 9:10 AM EDT LAB Base Excess-Line Draw -8.5(L) -2.0 - 3.0 mmol/L 05/26/2025 9:10 AM EDT LAB %HBO2-Line Draw 29.0(L) 40.0 - 70.0 % 05/26/2025 9:10 AM EDT LAB Carboxyhgb-Joi e Draw 1.2 % 05/26/2025 9:10 AM EDT LAB Comment: CARBOXYHEMOGLOBIN (CO) REFERENCE RANGES: Non-Smokers: <2 % Smokers: <8 % TOXIC: >20 % Methemoglobin- Line Draw 0.0 0.0 - 1.5 % 05/26/2025 9:10 AM EDT LAB Reduced Hemoglobin-Joi e Draw 69.9(H) 0.0 - 5.0 % 05/26/2025 9:10 AM EDT LAB Venous, Line Draw 05/26/2025 8:42 AM EDT 05/26/2025 8:59 AM EDT us Estrada Nelson DO LAB BLOOD ORDERABLES Final Resu lt LAB [address] [place] [address], [facility] * YAHAIRA Rhythm Strip - Scan (05/26/2025 7:41 AM EDT) us Scanning Uchhim SCAN DOCS - NO RESULTS Final Res ult * (ABNORMAL) Iron Studies (Iron + TIBC) (05/26/2025 3:33 AM EDT) Iron 38(L) 50 - 212 ug/dL 05/26/2025 6:07 AM EDT LAB % Iron Saturation 12.2(L) 15.0 - 55.0 % 05/26/2025 6:07 AM EDT LAB TIBC 311 265 - 497 ug/dL 05/26/2025 6:07 AM EDT LAB Serum 05/26/2025 3:33 AM EDT 05/26/2025 3:40 AM EDT Cookie Abdul MD LAB BLOOD ORDERABLES Final Resu lt LAB [address] [facility]. [address] * Vitamin B12 (05/26/2025 3:33 AM EDT) Vitamin B-12 730 180 - 914 pg/mL 05/26/2025 4:42 AM EDT LAB Serum 05/26/2025 3:33 AM EDT 05/26/2025 3:38 AM EDT Cookie Abdul MD LAB BLOOD ORDERABLES Final Resu lt LAB [address] [facility]. [address] * Folate (Folic Acid) (05/26/2025 3:33 AM EDT) Folic Acid 8.60 5.90 - 24.80 ng/mL 05/26/2025 4:41 AM EDT LAB Serum 05/26/2025 3:33 AM EDT 05/26/2025 3:38 AM EDT us Cookie Abdul MD LAB BLOOD ORDERABLES Final Resu lt LAB [address] * Ferritin (05/26/2025 3:33 AM EDT) Ferritin 250.6 11.0 - 306.8 ng/mL 05/26/2025 4:38 AM EDT LAB Serum 05/26/2025 3:33 AM EDT 05/26/2025 3:38 AM EDT us Cookie Abdlu MD LAB BLOOD ORDERABLES Final Resu lt Performing Organization Address [facility] Co de Phone Number LAB [address] [facility]. [address] * (ABNORMAL) MRSA/Staph aureus DNA ??? Diagnostic testing for pneumonia (05/26/2025 3:33 AM EDT) MRSA, PCR Negative Negative 05/26/2025 7:00 AM EDT LAB Staph Aureus, PCR Positive(A) Negative 05/26/2025 7:00 AM EDT LAB Comment:Test method is a FDA approved amplified DNA assay. Nares Swab BOTH ANTERIOR NARES / Unknown 05/26/2025 3:33 AM EDT 05/26/2025 5:14 AM EDT Narrative LAB - 05/26/2025 7:00 AM EDT Diagnosis of MRSA Pneumonia->Yes - Place [id number] (this order) us Cookie Abdul MD MICROBIOLOGY - GENERAL ORDERABL ES Final Result Performing Organization Address [facility] Co de Phone Number LAB [address] [facility]. [address] * (ABNORMAL) Hepatic Function Panel (05/26/2025 3:33 AM EDT) Total Bilirubin 2.9(H) 0.0 - 1.5 mg/dL 05/26/2025 4:36 AM EDT HEALTH LAB Bilirubin, Direct 2.02(H) 0.00 - 0.40 mg/dL 05/26/2025 4:36 AM EDT LAB AST 342(H) 13 - 39 U/L 05/26/2025 4:36 AM EDT LAB ALT 345(H) 7 - 52 U/L 05/26/2025 4:36 AM EDT LAB Alkaline Phosphatase 361(H) 36 - 125 U/L 05/26/2025 4:36 AM EDT LAB Total Protein 6.7 6.4 - 8.9 g/dL 05/26/2025 4:36 AM EDT LAB Albumin 3.5 3.5 - 5.7 g/dL 05/26/2025 4:36 AM EDT LAB Bilirubin, Indirect 0.88 0.00 - 1.10 mg/dL 05/26/2025 4:36 AM EDT LAB Plasma 05/26/2025 3:33 AM EDT 05/26/2025 3:38 AM EDT us Cookie Abdul MD LAB BLOOD ORDERABLES Final Resu lt LAB [address] [place] [address], [facility] * (ABNORMAL) Renal Function Panel w/EGFR (05/26/2025 3:33 AM EDT) Sodium 140 133 - 146 mmol/L 05/26/2025 4:36 AM EDT LAB Potassium 4.5 3.5 - 5.3 mmol/L 05/26/2025 4:36 AM EDT LAB Chloride 108 98 - 110 mmol/L 05/26/2025 4:36 AM EDT LAB CO2 20(L) 21 - 33 mmol/L 05/26/2025 4:36 AM EDT LAB Anion Gap 12 3 - 16 mmol/L 05/26/2025 4:36 AM EDT LAB BUN 18 7 - 25 mg/dL 05/26/2025 4:36 AM EDT LAB Creatinine 1.15 0.60 - 1.30 mg/dL 05/26/2025 4:36 AM EDT LAB Glucose 112(H) 70 - 100 mg/dL 05/26/2025 4:36 AM EDT LAB Calcium 9.3 8.6 - 10.3 mg/dL 05/26/2025 4:36 AM EDT LAB Phosphorus 4.0 2.1 - 4.5 mg/dL 05/26/2025 4:36 AM EDT LAB Albumin 3.5 3.5 - 5.7 g/dL 05/26/2025 4:36 AM EDT LAB Osmolality, Calculated 293 278 - 305 mOsm/kg 05/26/2025 4:36 AM EDT LAB EGFR 53 05/26/2025 4:36 AM EDT LAB Comment:As of 2022, the estimated GFR [...] MD LAB BLOOD ORDERABLES Final Resu lt LAB [address] [place] [address], [facility] * Magnesium (05/26/2025 3:33 AM EDT) Magnesium 2.3 1.5 - 2.5 mg/dL 05/26/2025 4:36 AM EDT LAB Plasma 05/26/2025 3:33 AM EDT 05/26/2025 3:38 AM EDT us Cookie Abdul MD LAB BLOOD ORDERABLES Final Resu lt HEALTH LAB [address] [address] * (ABNORMAL) CBC (05/26/2025 3:33 AM EDT) WBC 29.1(H) 3.8 - 10.8 10E3/uL 05/26/2025 4:27 AM EDT LAB RBC 3.31(L) 3.80 - 5.10 10E6/uL 05/26/2025 4:27 AM EDT LAB Hemoglobin 10.4(L) 11.7 - 15.5 g/dL 05/26/2025 4:27 AM EDT LAB Hematocrit 30.6(L) 35.0 - 45.0 % 05/26/2025 4:27 AM EDT LAB MCV 92.3 80.0 - 100.0 fL 05/26/2025 4:27 AM EDT LAB MCH 31.3 27.0 - 33.0 pg 05/26/2025 4:27 AM EDT LAB MCHC 33.9 32.0 - 36.0 g/dL 05/26/2025 4:27 AM EDT LAB RDW 18.5(H) 11.0 - 15.0 % 05/26/2025 4:27 AM EDT LAB Platelets 260 140 - 400 10E3/uL 05/26/2025 4:27 AM EDT LAB MPV 8.9 7.5 - 11.5 fL 05/26/2025 4:27 AM EDT LAB Whole Blood 05/26/2025 3:33 AM EDT 05/26/2025 3:38 AM EDT us Cookie Abdul MD LAB BLOOD ORDERABLES Final Resu lt LAB [address] * (ABNORMAL) Gamma GT (05/26/2025 12:43 AM EDT) GGT 307(H) 9 - 64 U/L 05/26/2025 1:37 AM EDT LAB Serum 05/26/2025 12:4 3 AM EDT 05/26/2025 12:52 AM EDT us Cookie Abdul MD LAB BLOOD ORDERABLES Final Resu lt Performing Organization Address [facility] Co de Phone Number LAB [address] * (ABNORMAL) NT-proBNP/Sacubitril/Valsartan (05/26/2025 12:43 AM EDT) NT Pro BNP 1142(H) 0 - 301 pg/mL 05/27/2025 7:40 AM EDT LAB Comment: The following cut-points have been [...] AM EDT 05/27/2025 8:07 AM EDT Narrative LAB - 05/27/2025 8:07 AM EDT PERFORMED AT: [facility] [id number] MECHANICAL PROJECT MANAGER: Dave Escudero, PhD PHONE: [phone] us Cookie Abdul MD LAB BLOOD ORDERABLES Final Resu lt Performing Organization Address [facility] Co de Phone Number LAB [address]. [address] * (ABNORMAL) High Sensitivity Troponin (05/26/2025 12:43 AM EDT) High Sensitivity Troponin 17(H) 0 - 14 ng/L 05/26/2025 1:28 AM EDT LAB Serum 05/26/2025 12:4 3 AM EDT 05/26/2025 12:56 AM EDT us Cookie Abdul MD LAB BLOOD ORDERABLES Final Resu lt Performing Organization Address [facility] Co de Phone Number LAB [address] [facility]. [address] * Urine culture (05/25/2025 10:32 PM EDT) Culture Result No Growth After 2 Days LAB Newly Placed Palafox Urine URINE SPECIMEN / Unknown 05/25/2025 10:32 PM EDT 05/25/2025 11:33 PM EDT us Cookie Abdul MD MICROBIOLOGY - GENERAL ORDERABL ES Final Result Performing Organization Address [facility] Co de Phone Number LAB [address] [facility]. [address] * (ABNORMAL) Urinalysis w/Rfl to Microscopic (05/25/2025 10:32 PM EDT) Color, UA Yellow Yellow,Straw 05/25/2025 10:55 PM EDT LAB Clarity, UA Cloudy(A) Clear 05/25/2025 10:55 PM EDT LAB Specific [place], UA >1.035(H) 1.005 - 1.035 05/25/2025 10:55 PM EDT LAB pH, UA 6.0 5.0 - 8.0 05/25/2025 10:55 PM EDT LAB Protein, UA 30(A) Negative mg/dL 05/25/2025 10:55 PM EDT LAB Glucose, UA Negative Negative mg/dL 05/25/2025 10:55 PM EDT LAB Ketones, UA Negative Negative mg/dL 05/25/2025 10:55 PM EDT LAB Bilirubin, UA Negative Negative 05/25/2025 10:55 PM EDT LAB Blood, UA Moderate(A) Negative 05/25/2025 10:55 PM EDT LAB Nitrite, UA Negative Negative 05/25/2025 10:55 PM EDT LAB Urobilinogen, UA 3.0(H) 0.2 - 1.9 mg/dL 05/25/2025 10:55 PM EDT LAB Leukocyte Esterase, UA Negative Negative 05/25/2025 10:55 PM EDT LAB RBC, UA 41(H) 0 - 3 /HPF 05/25/2025 10:55 PM EDT LAB WBC, UA 1 0 - 5 /HPF 05/25/2025 10:55 PM EDT LAB Squam Epithel, UA 1 0 - 5 /HPF 05/25/2025 10:55 PM EDT LAB Bacteria, UA Rare(A) None Seen /HPF 05/25/2025 10:55 PM EDT LAB Urine 05/25/2025 10:3 2 PM EDT 05/25/2025 10:43 PM EDT us Cookie Abdul MD URINE ORDERABLES Final Result LAB [address] [place] [address], [facility] * ECG 12 lead (MUSE) (05/25/2025 9:52 PM EDT) 05/25/2025 9:52 PM EDT Narrative MUSE - 05/26/2025 10:45 AM EDT Ventricular Rate: 68 BPM Atrial Rate: 68 BPM P-R Interval: 198 ms QRS Duration: 80 ms QT: 446 ms QTc: 474 ms P [place]: 58 degrees R [place]: -28 degrees T [place]: 6 degrees Diagnosis Line: NORMAL SINUS RHYTHM ^ LOW VOLTAGE QRS COMPLEXES ^ BORDERLINE ECG ^ No previous ECGs available ^ Confirmed by Conner DONATO MD ([id number]) on 05/26/2025 10:45:34 AM us Denisse Juan Antonioy DO ECG ORDERABLES Final Result Performing Organization Address [facility] Co de Phone Number MUSE * YAHAIAR Rhythm Strip - Scan (05/25/2025 8:30 PM EDT) us Scanning Uchhim SCAN DOCS - NO RESULTS Final Res ult * YAHAIRA Rhythm Strip - Scan (05/25/2025 8:22 PM EDT) us Scanning Uchhim SCAN DOCS - NO RESULTS Final Res ult * HCG Urine, Qualitative (05/25/2025 8:09 PM EDT) hCG Qualitative -Clinitek Negative Negative 05/25/2025 8:30 PM EDT LAB Urine 05/25/2025 8:09 PM EDT 05/25/2025 8:14 PM EDT us Denisse Albert DO URINE ORDERABLES Final Result Performing Organization Address [facility] de Phone Number LAB [address] * (ABNORMAL) B Natriuretic Peptide (05/25/2025 [...] of the patient's clinical presentation. Denisse Albert [employer] LAB BLOOD ORDERABLES Final Resul t Performing Organization Address City/[facility] Co de Phone Number LAB [address] [facility]. [address] * (ABNORMAL) High Sensitivity Troponin (05/25/2025 7:21 PM EDT) [facility] High Sensitivity Troponin 26(H) 0 - 14 ng/L 05/25/2025 8:27 PM EDT LAB Serum 05/25/2025 7:21 PM EDT 05/25/2025 7:56 PM EDT Denisse Albert [employer] LAB BLOOD ORDERABLES Final Resul t Performing Organization Address [facility] Co de Phone Number LAB [address] [facility]. [address] * Amylase (05/25/2025 7:21 PM EDT) [facility] Amylase 22 16 - 117 U/L 05/25/2025 8:23 PM EDT LAB Serum 05/25/2025 7:21 PM EDT 05/25/2025 7:56 PM EDT Denisse Albert LAB BLOOD ORDERABLES Final Resul t Performing Organization Address [facility] Co de Phone Number LAB [address] [facility]. [address] * Antibody Screen (05/25/2025 7:21 PM EDT) [facility] Antibody Screen Negative 05/25/2025 8:23 PM EDT LAB Blood 05/25/2025 7:21 PM EDT 05/25/2025 7:45 PM EDT Narrative LAB - 05/25/2025 8:28 PM EDT Testing performed by [facility] Transfusion Service Denisse Albert DO BLOOD BANK TEST ORDERABLES Final Result LAB [address]. [address] * ABO/Rh (05/25/2025 7:21 PM EDT) ABO Grouping O 05/25/2025 8:07 PM EDT LAB Rh Type Negative 05/25/2025 8:07 PM EDT LAB Blood 05/25/2025 7:21 PM EDT 05/25/2025 7:45 PM EDT eDnisse Albert DO BLOOD BANK TEST ORDERABLES Final Result Performing Organization Address [facility] Co de Phone Number LAB [address]. [address] * #2 Blood culture-Peripheral site 2 (05/25/2025 7:21 PM EDT) Culture Result No Growth After 5 Days LAB Blood BLOOD SPECIMEN / Unknown 05/25/2025 7:21 PM EDT 05/25/2025 8:07 PM EDT Denisse Albert DO MICROBIOLOGY - GENERAL ORDERABLE S Final Result Performing Organization Address City/[facility]/ZIP Co de Phone Number LAB [address]. [address] * #1 Blood culture-Peripheral site 1 (05/25/2025 7:21 PM EDT) Culture Result No Growth After 5 Days LAB Blood BLOOD SPECIMEN / Unknown 05/25/2025 7:21 PM EDT 05/25/2025 8:07 PM EDT Denisse Roosevelt [place] MICROBIOLOGY - GENERAL ORDERABLE S Final Result LAB [address] * Lipase (05/25/2025 7:20 PM EDT) Pathologist [facility] Lipase 6 4 - 82 U/L 05/25/2025 8:2 3 PM EDT LAB Plasma 05/25/2025 7:20 PM EDT 05/25/2025 7:56 PM EDT us Denisse Juan Antoniomontse DO LAB BLOOD ORDERABLES Final Resul t LAB [address] * (ABNORMAL) Venous Blood Gas, Line/Syringe, STAT (05/25/2025 7:20 PM EDT) Pathologist [facility] PH-Line Draw 7.25(L) 7.32 - 7.42 05/25/2025 7:29 PM EDT LAB PCO2-Line Draw 43 41 - 51 mm Hg 05/25/2025 7:29 PM EDT LAB PO2-Line Draw 52(H) 25 - 40 mm Hg 05/25/2025 7:29 PM EDT LAB HCO3-Line Draw 18(L) 24 - 28 mmol/L 05/25/2025 7:29 PM EDT LAB CO2 Content-Line Draw 20(L) 25 - 29 mmol/L 05/25/2025 7:29 PM EDT LAB Base Excess-Line Draw -7.9(L) -2.0 - 3.0 mmol/L 05/25/2025 7:29 PM EDT LAB %HBO2-Line Draw 78.1(H) 40.0 - 70.0 % 05/25/2025 7:29 PM EDT LAB Carboxyhgb-Joi e Draw 1.0 % 05/25/2025 7:29 PM EDT LAB Comment: CARBOXYHEMOGLOBIN (CO) REFERENCE RANGES: Non-Smokers: <2 % Smokers: <8 % TOXIC: >20 % Methemoglobin- Line Draw 0.2 0.0 - 1.5 % 05/25/2025 7:29 PM EDT LAB Reduced Hemoglobin-Joi e Draw 20.7(H) 0.0 - 5.0 % 05/25/2025 7:29 PM EDT LAB Venous, Line Draw 05/25/2025 7:20 PM EDT 05/25/2025 7:26 PM EDT Denisse Albert [employer] LAB BLOOD ORDERABLES Final Resul t Performing Organization Address City/[facility] Co de Phone Number LAB [address] [place] [address] * Lactic Acid, STAT (05/25/2025 7:20 PM EDT) Lactate 0.9 0.5 - 2.2 mmol/L 05/25/2025 8:03 PM EDT LAB Plasma 05/25/2025 7:20 PM EDT 05/25/2025 7:44 PM EDT Denisse Albert [employer] LAB BLOOD ORDERABLES Final Resul t Performing Organization Address [facility] de Phone Number [facility] [address] [place] [address]. [address] * Ammonia (NH3), STAT (05/25/2025 7:20 PM EDT) Ammonia 71 27 - 90 ug/dL 05/25/2025 8:04 PM EDT LAB Plasma 05/25/2025 7:20 PM EDT 05/25/2025 7:44 PM EDT Denisse Albert [employer] LAB BLOOD ORDERABLES Final Resul t Performing Organization Address [facility] de Phone Number [facility] [address] [place] [address]. [address] * (ABNORMAL) Acetaminophen Level (Tylenol), STAT (05/25/2025 7:20 PM EDT) Acetaminophen Level <10(L) 10 - 30 ug/mL 05/25/2025 8:04 PM EDT LAB Serum 05/25/2025 7:20 PM EDT 05/25/2025 7:44 PM EDT Denisse Albert [employer] LAB BLOOD ORDERABLES Final Resul t Performing Organization Address [facility] Co de Phone Number LAB [address] [place] [address]. [address] * Protime-INR, STAT (05/25/2025 7:20 PM EDT) Protime 14.8 12.1 - 15.1 seconds 05/25/2025 8:12 PM EDT LAB INR 1.1 0.9 - 1.1 05/25/2025 8:12 PM EDT LAB Comment: RECOMMENDED THERAPEUTIC RANGES USING INR : Stable oral anticoagulant therapy: 2.0 - 3.0 Mechanical prosthetic heart valve: 2.5 - 3.5 Recurrent acute myocardial infarction: 2.5 - 3.5 Plasma 05/25/2025 7:20 PM EDT 05/25/2025 7:56 PM EDT Denisse Albert [employer] LAB BLOOD ORDERABLES Final Resul t Performing Organization Address [facility] Co de Phone Number LAB [address] [place] [address]. [address] * (ABNORMAL) Hepatic Function Panel, STAT (05/25/2025 7:20 PM EDT) Total Bilirubin 3.7(H) 0.0 - 1.5 mg/dL 05/25/2025 8:23 PM EDT LAB Bilirubin, Direct 2.74(H) 0.00 - 0.40 mg/dL 05/25/2025 8:23 PM EDT LAB AST 460(H) 13 - 39 U/L 05/25/2025 8:23 PM EDT LAB ALT 395(H) 7 - 52 U/L 05/25/2025 8:23 PM EDT LAB Alkaline Phosphatase 377(H) 36 - 125 U/L 05/25/2025 8:23 PM EDT LAB Total Protein 6.5 6.4 - 8.9 g/dL 05/25/2025 8:23 PM EDT LAB Albumin 3.6 3.5 - 5.7 g/dL 05/25/2025 8:23 PM EDT LAB Bilirubin, Indirect 0.96 0.00 - 1.10 mg/dL 05/25/2025 8:23 PM EDT LAB Plasma 05/25/2025 7:20 PM EDT 05/25/2025 7:56 PM EDT Denisse [facility] [id number] LAB BLOOD ORDERABLES Final Resul t LAB [address] * Magnesium, STAT (05/25/2025 7:20 PM EDT) Magnesium 2.3 1.5 - 2.5 mg/dL 05/25/2025 8:23 PM EDT LAB Plasma 05/25/2025 7:20 PM EDT 05/25/2025 7:56 PM EDT Denisse Albert [employer] LAB BLOOD ORDERABLES Final Resul t LAB [address] * (ABNORMAL) Renal Function Panel w/EGFR, STAT (05/25/2025 7:20 PM EDT) Sodium 140 133 - 146 mmol/L 05/25/2025 8:23 PM EDT LAB Potassium 4.0 3.5 - 5.3 mmol/L 05/25/2025 8:23 PM EDT LAB Chloride 108 98 - 110 mmol/L 05/25/2025 8:23 PM EDT LAB CO2 21 21 - 33 mmol/L 05/25/2025 8:23 PM EDT LAB Anion Gap 11 3 - 16 mmol/L 05/25/2025 8:23 PM EDT LAB BUN 21 7 - 25 mg/dL 05/25/2025 8:23 PM EDT LAB Creatinine 1.22 0.60 - 1.30 mg/dL 05/25/2025 8:23 PM EDT LAB Glucose 185(H) 70 - 100 mg/dL 05/25/2025 8:23 PM EDT LAB Calcium 8.1(L) 8.6 - 10.3 mg/dL 05/25/2025 8:23 PM EDT LAB Phosphorus 3.8 2.1 - 4.5 mg/dL 05/25/2025 8:23 PM EDT LAB Albumin 3.6 3.5 - 5.7 g/dL 05/25/2025 8:23 PM EDT LAB Osmolality, Calculated 298 278 - 305 mOsm/kg 05/25/2025 8:23 PM EDT LAB EGFR 49 05/25/2025 8:23 PM EDT LAB Comment:As of 2022, the estimated GFR [...] DO LAB BLOOD ORDERABLES Final Resul t LAB [address] * (ABNORMAL) CBC, STAT (05/25/2025 7:20 PM EDT) WBC 38.7(H) 3.8 - 10.8 10E3/uL 05/25/2025 7:53 PM EDT LAB RBC 3.38(L) 3.80 - 5.10 10E6/uL 05/25/2025 7:53 PM EDT LAB Hemoglobin 10.3(L) 11.7 - 15.5 g/dL 05/25/2025 7:53 PM EDT LAB Hematocrit 31.6(L) 35.0 - 45.0 % 05/25/2025 7:53 PM EDT LAB MCV 93.3 80.0 - 100.0 fL 05/25/2025 7:53 PM EDT LAB MCH 30.4 27.0 - 33.0 pg 05/25/2025 7:53 PM EDT LAB MCHC 32.6 32.0 - 36.0 g/dL 05/25/2025 7:53 PM EDT LAB RDW 18.7(H) 11.0 - 15.0 % 05/25/2025 7:53 PM EDT LAB Platelets 279 140 - 400 10E3/uL 05/25/2025 7:53 PM EDT LAB MPV 8.7 7.5 - 11.5 fL 05/25/2025 7:53 PM EDT LAB Whole Blood 05/25/2025 7:20 PM EDT 05/25/2025 7:44 PM EDT us Denisse Albert DO LAB BLOOD ORDERABLES Final Resul t LAB [address] * X-ray Portable Chest (05/25/2025 7:10 [...] Sample Type Venous 05/26/2025 5:58 AM EDT [facility] Blood, Venous 05/25/2025 6:0 7 PM EDT 05/26/2025 5:58 AM EDT Willem Shin DO POINT OF CARE TEST ORDERABLE S Final Result LAB [address] * POC Anion Gap (05/25/2025 6:07 PM EDT) POC Anion Gap, Venous 15 3 - 16 mmol/L 05/26/2025 5:58 AM EDT LAB Blood, Venous 05/25/2025 6:0 7 PM EDT 05/26/2025 5:58 AM EDT Willem Shin DO POINT OF CARE TEST ORDERABLE S Final Result LAB [address] * POC creatinine (05/25/2025 6:07 PM EDT) POC Creatinine 1.27 0.60 - 1.30 mg/dL 05/26/2025 5:58 AM EDT LAB Blood, Venous 05/25/2025 6:0 7 PM EDT 05/26/2025 5:58 AM EDT Willem Shin DO POINT OF CARE TEST ORDERABLE S Final Result LAB [address] * POC Chloride (05/25/2025 6:07 PM EDT) Pathologist [facility] POC Chloride 107 98 - 110 mmol/L 05/26/2025 5:58 AM EDT LAB Blood, Venous 05/25/2025 6:0 7 PM EDT 05/26/2025 5:58 AM EDT Willem Shin DO POINT OF CARE TEST ORDERABLE S Final Result LAB [address] * (ABNORMAL) POC Hemoglobin (05/25/2025 6:07 PM EDT) POC Hemoglobin 11.6(L) 12.0 - 16.0 g/dL 05/26/2025 5:58 AM EDT LAB Blood, Venous 05/25/2025 6:0 7 PM EDT 05/26/2025 5:58 AM EDT us Willem Shin DO POINT OF CARE TEST ORDERABLE S Final Result LAB [address] * (ABNORMAL) POC hematocrit (05/25/2025 6:07 PM EDT) Pathologist [facility] POC Hematocrit 34.0(L) 35 - 45 % 05/26/2025 5:58 AM EDT LAB Blood, Venous 05/25/2025 6:0 7 PM EDT 05/26/2025 5:58 AM EDT Willem Shin DO POINT OF CARE TEST ORDERABLE S Final Result Performing Organization Address City/[facility]/ZIP Co de Phone Number LAB [address] [facility]. [address] * POC Lactate (05/25/2025 6:07 PM EDT) POC Lactate 0.92 0.50 - 2.20 mmol/L 05/26/2025 5:58 AM EDT LAB Blood, Venous 05/25/2025 6:0 7 PM EDT 05/26/2025 5:58 AM EDT Willem Shin DO POINT OF CARE TEST ORDERABLE S Final Result LAB [address] * (ABNORMAL) POC Glucose (05/25/2025 6:07 PM EDT) Pathologist [facility] POC Glucose, Venous 246(H) 70 - 100 mg/dL 05/26/2025 5:58 AM EDT LAB Blood, Venous 05/25/2025 6:0 7 PM EDT 05/26/2025 5:58 AM EDT us Willem Shin DO POINT OF CARE TEST ORDERABLE S Final Result [facility] [address] [place] [address]. [address] * POC Ionized Calcium (05/25/2025 6:07 PM EDT) [facility] POC Ionized Calcium 4.50 4.50 - 5.30 mg/dL 05/26/2025 5:58 AM EDT LAB Blood, Venous 05/25/2025 6:0 7 PM EDT 05/26/2025 5:58 AM EDT Willem Shin DO POINT OF CARE TEST ORDERABLE S Final Result Performing Organization Address [facility] Co de Phone Number [facility] [address] [facility]. [address] * POC Potassium (05/25/2025 6:07 PM EDT) [facility] POC Potassium 4.0 3.5 - 5.3 mmol/L 05/26/2025 5:58 AM EDT LAB Blood, Venous 05/25/2025 6:0 7 PM EDT 05/26/2025 5:58 AM EDT Willem Shin DO POINT OF CARE TEST ORDERABLE S Final Result Performing Organization Address City/[facility] Co de Phone Number [facility] [address] [facility]. [address] * POC Sodium (05/25/2025 6:07 PM EDT) [facility] POC Sodium 140 136 - 146 mmol/L 05/26/2025 5:58 AM EDT LAB Blood, Venous 05/25/2025 6:0 7 PM EDT 05/26/2025 5:58 AM EDT Willem Shin DO POINT OF CARE TEST ORDERABLE S Final Result LAB [address]. [address] * (ABNORMAL) POC TCO2 (05/25/2025 6:07 PM EDT) POC TCO2, Venous 19(L) 25 - 29 mmol/L 05/26/2025 5:58 AM EDT LAB Blood, Venous 05/25/2025 6:0 7 PM EDT 05/26/2025 5:58 AM EDT Willem Shin DO POINT OF CARE TEST ORDERABLE S Final Result Performing Organization Address City/[facility]/ZIP Co de Phone Number LAB [address] [facility]. [address] * (ABNORMAL) POC O2 SAT (05/25/2025 6:07 PM EDT) POC O2 Saturation, Venous 77(L) 95 - 98 % 05/26/2025 5:58 AM EDT LAB Blood, Venous 05/25/2025 6:0 7 PM EDT 05/26/2025 5:58 AM EDT Willem Shin DO POINT OF CARE TEST ORDERABLE S Final Result LAB [address] [facility]. [address] * (ABNORMAL) POC Base Excess (05/25/2025 6:07 PM EDT) POC Base Excess, Venous -8(L) -2 - 3 mmol/L 05/26/2025 5:58 AM EDT LAB Blood, Venous 05/25/2025 6:0 7 PM EDT 05/26/2025 5:58 AM EDT Willem Shin DO POINT OF CARE TEST ORDERABLE S Final Result LAB [address] * (ABNORMAL) POC HCO3 (05/25/2025 6:07 PM EDT) POC HCO3, Venous 18(L) 24 - 28 mmol/L 05/26/2025 5:58 AM EDT LAB Blood, Venous 05/25/2025 6:0 7 PM EDT 05/26/2025 5:58 AM EDT Willem Shin DO POINT OF CARE TEST ORDERABLE S Final Result Performing Organization Address City/[facility]/ZIP Co de Phone Number LAB [address] [facility] * (ABNORMAL) POC PO2 (05/25/2025 6:07 PM EDT) POC pO2, Venous 45(H) 25 - 40 mm Hg 05/26/2025 5:58 AM EDT LAB Blood, Venous 05/25/2025 6:0 7 PM EDT 05/26/2025 5:58 AM EDT Willem Shni DO POINT OF CARE TEST ORDERABLE S Final Result LAB [address] [facility] * (ABNORMAL) POC PCO2 (05/25/2025 6:07 PM EDT) POC pCO2, Venous 36(L) 41 - 51 mm Hg 05/26/2025 5:58 AM EDT LAB Blood, Venous 05/25/2025 6:0 7 PM EDT 05/26/2025 5:58 AM EDT Willem Shin DO POINT OF CARE TEST ORDERABLE S Final Result LAB [address] * (ABNORMAL) POC pH (05/25/2025 6:07 PM EDT) POC pH, Venous 7.30(L) 7.32 - 7.42 05/26/2025 5:58 AM EDT LAB Blood, Venous 05/25/2025 6:0 7 PM EDT 05/26/2025 5:58 AM EDT Willem Shin DO POINT OF CARE TEST ORDERABLE S Final Result Performing Organization Address City/[facility] Co de Phone Number LAB [address] [facility]. [address] documented in this encounter Visit Diagnoses Diagnosis Septic shock, resolved- Primary Mastocytosis Congenital pigmentary anomaly of skin Shock (CMS-HCC) Unspecified shock Elevated LFTs Other abnormal blood chemistry Gastroesophageal reflux disease without esophagitis Esophageal reflux Morbid obesity (CMS-HCC) Morbid obesity Pneumonia of both lower lobes due to infectious organism Acute kidney injury ([facility]-HCC) Coronary artery disease involving [place] coronary artery of [place] heart without angina pectoris Elevated LFTs Other [...] PM EDTAssociated Problem(s): Coronary artery disease involving [place] coronary artery of [place] heart without angina pectoris See MICU notes [...] Problem(s): Opioid-induced constipation 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 Labeled tablet strength may vary by digital media manager (may be expressed as grams of carbohydrates) [...] extravasation, notify provider (), and refer to [facility] Extravasation Management Guidelines. , IV Line [...] in sodium chloride 0.9 % 100 mL [id number] 4.5 g, Intravenous, at 200 mL/hr, Once, On Fri05/25/25 at 2000, For 1 dose, Use Qrnm0Ofy Adapter - Mix Thoroughly Before Administration New Bag 05/25/2025 8:22 PM EDT 4.5 g 200 mL/hr piperacillin-tazobactam (ZOSYN) 4.5 g in sodium chloride 0.9 % 100 mL Bwvf3Wkg 4.5 g, Intravenous, at 25 mL/hr, Every 8 hours, First dose on Fri05/26/25 at 0400, Use Xict4Dlj Adapter - Mix Thoroughly Before Administration New [...] in sodium chloride 0.9 % 100 mL Otfx8Qkb (CANCELED)(Linked Group 2) 4.5 g, Intravenous, at 25 mL/hr, Every 8 hours, First dose on Fri05/26/25 at 0400, Use Qinw1Qdd Adapter - Mix Thoroughly Before Administration 0325 [...] Woodall, CISCO)2201 (New Bag - Provider: Shae Mgcill RN) 0513 (New Bag - Provider: Shae [...] ELLIPTA 0903 (Given - Provider: Colten Gordillo, [employer]) 0903 (Given - Provider: Tram Harman, [employer]) 0825 (Hold - Provider: Regla Huynh, LIN [...] needed. Labeled tablet strength may vary by digital media manager (may be expressed as grams of carbohydrates) [...] in sodium chloride 0.9 % 100 mL Gcng9Mas (COMPLETED) 4.5 g, Intravenous, at 200 mL/hr, Once, On Fri05/25/25 at 2000, For 1 dose, Use Vaps0Diw Adapter - Mix Thoroughly Before Administration Followed by piperacillin-tazobactam (ZOSYN) 4.5 g in sodium chloride 0.9 % 100 mL Tfhc8Bpt (CANCELED)Jump to med 4.5 g, Intravenous, at 25 mL/hr, Every 8 hours, First dose on Fri05/26/25 at 0400, Use Baju2Qct Adapter - Mix Thoroughly Before Administration Group [...] documented as of this encounter Care Teams Bushel Worker Relationship Specialty Start Date End Date Manas Jenkins MD [address] [place] [address] PCP - General Family Medicine 10/14/17 documented as of this encounter
--- OUTSIDE RECORDS SUMMARY | 2025-06-09 11:15 | XMS_ITS | Encounter Summary ---
Author Organization [facility] yste Address [address] [place] [address] Care Team Providers Care Inter Com Installer Name Role Phone Manas Jenkins MD Primary Care Provider + Reason for Referral * Physical Therapy (Routine) - Closed Specialty Diagnoses / Procedures Referred By Contac t Referred To Contact Physical Therapy Diagnoses Pneumonia of both lungs due to infectious organism, unspecified part of lung Physical deconditioning Procedures WA OFFICE/OUTPATIENT NEW MODERATE MDM 45 MINUTES Manas Jenkins MD [address] [facility] [place] [address] Phone: tel: fax: [facility] - OUTPT PHYSICAL THERAPY [address] [place] [address] Phone: tel: fax: Referral ID Status Reason Start Date Expiration Date V isits Requested Visits Authorized [id number] Closed Specialty Services Required 06/09/2025 09/08/2026 1 1 Reason for Visit * Reason Comments Hosp Discharge FU / sepsis Pt state's, she is still very weak. Encounter Details Date Type Department Care Team (Latest Contact Info) Description 06/09/2025 11:15 AM EDT Office Visit [facility] [address] [place] [phone] Manas Jenkins MD [address] [place] [address] Urinary tract infection without hematuria, site unspecified (Primary Dx); Pneumonia of both lungs due to infectious organism, unspecified part of lung; Hypocalcemia; Shock liver; Physical deconditioning; Primary osteoarthritis of right knee; Chronic right-sided low back pain with right-sided sciatica; Metabolic encephalopathy; Hypotension due to drugs; Anemia, unspecified type 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 Tobacco Use Types Packs/Day Years Used Date Smoking Tobacco: Former Cigarettes 0.5 15 1 - 2004 Passive Smoke Exposure: Past Smokeless Tobacco: Never [...] Sign Reading Time Taken Comments Blood Pressure - - Pulse 89 06/09/2025 11:00 AM EDT Temperature 37 C (98.6 F) 06/09/2025 11:00 AM EDT Respiratory Rate 24 06/09/2025 11:00 AM EDT Oxygen Saturation 98% 06/09/2025 11:00 AM EDT Inhaled Oxygen Concentration - - Weight - - Height 165.1 cm (5' 5 ) 06/09/2025 11:00 AM EDT Body Mass Index - - documented in this encounter Progress Notes * Manas Jenkins MD - 06/09/2025 11:15 AM EDT Images from the original note were not included. Transitional Care Follow Up Visit Subjective Laura Mallory is a 64 y.o. female who presents for a transitional care management visit. I reviewed and discussed the details of that call along with the discharge summary, hospital problems, inpatient lab results, inpatient diagnostic studies, and consultation reports with Laura. Current outpatient and discharge medications have been reconciled for the patient. Reviewed by: Manas Jenkins MD No data to display Risk for Readmission (LACE) No data recorded History of Present Illness Course During Hospital Stay: Patient was hospitalized in the [facility] from May 25 to May 28 after being transferred from [facility] when patient presented with illness and diagnosis of septic shock. Patient had a white blood cell count of 30,000, CT scan of the chest raised suspicion for bilateral pneumonia. She had severe elevation of liver functiontests consistent with shock liver. Due to the level of care needed patient was transferred to [facility]. Patient had a 3-day hospital stay and was discharged with plans for home healthinterventions. Patient resides outside of the [facility] health system. She is in need of physical therapy. At discharge she was sent home on Levaquin which she has completed Patient has very little recollection of the events of the hospitalization. History is provided primarily by her . Since returning home after discharge on May 28 the patient has been doing wellaccording to the at least until today. Today the patient seems abnormally weak. She required the use of a wheelchair when she arrived at the office. In review of medical record she denies any fevers or chills or cough prior to her hospitalization. She has a history of urinary tract infections and urine culture ultimately grew Strep. Agalactiae. She recalls eating some food that she thought tasted poorly but that was 4 days prior to her hospitalization. Patient's manages her medications. Since returning home there was at least a singleday where she had mild confusion. The following portions of the patient's history were reviewed and updated as appropriate: allergies, current medications, past family history, past medical history, past social history, past surgicalhistory, and problem list. [facility] Records, Cr--1.5, K--2.4, AST--900+, ALT 500+, Total Bili 3.0, Hgb--1.5, CT A/P--no significantliver abnormality, GB absent, CRP 15, Blood Cultures no growth after 5 days, Urine Culture--Strep. Agalactiae sensitive to Levaquin, Records--Discharge Summary serilal Hepatic Function Panels showing gradual decline in Bili, AST,ALT, AP. Renal Panel shows return of nromal GFR and CR with calcium o f8.3 and Albumin of 3.2 Review of Systems Objective Pulse 89 Temp 98.6 ??F (37 ??C) Resp 24 Ht 165.1 cm (65 ) SpO2 98% BMI 44.70 kg/m?? Physical Exam Vitals reviewed: BP unable to be recorded despite multiple attempts by multiple staff. Constitutional: Appearance: Normal appearance. HENT: Head: Normocephalic and atraumatic. Right Ear: Tympanic membrane and ear canal normal. Left Ear: Tympanic membrane and ear canal normal. Nose: Nose normal. Mouth/Throat: Mouth: Mucous membranes are moist. Pharynx: Oropharynx is clear. Eyes: Conjunctiva/sclera: Conjunctivae [...] alert. Psychiatric: Mood and Affect: Mood normal. Assessment & Plan Diagnoses and all orders for this visit: 1. Urinary tract infection without hematuria, site unspecified (Primary) 2. Pneumonia of both lungs due to infectious organism, unspecified part of lung - CBC (No Diff) - Ambulatory Referral to Physical Therapy for Evaluation & Treatment 3. Hypocalcemia - Comprehensive Metabolic Panel - Vitamin D,25-Hydroxy 4. Shock liver - Comprehensive Metabolic Panel 5. Physical deconditioning - Ambulatory Referral to Physical Therapy for Evaluation & Treatment 6. Primary osteoarthritis of right knee Comments: Continue tramadol for pain control. Avoiding NSAIDs due to stress cardiomyopathy Orders: - traMADol (ULTRAM) 50 MG tablet; Take 1 tablet by mouth Every 8 (Eight) Hours As Needed for Moderate Pain. Dispense: 90 tablet; Refill: 0 7. Chronic right-sided low back pain with right-sided sciatica Comments: Continue tramadol Orders: - traMADol (ULTRAM) 50 MG tablet; Take 1 tablet by mouth Every 8 (Eight) Hours As Needed for Moderate Pain. Dispense: 90 tablet; Refill: 0 8. Metabolic encephalopathy 9. Hypotension due to drugs 10. Anemia, unspecified type Plan 1. Patient's UTI and possible pneumonia have been treated with levofloxacin. Patient does not need any further antibiotics. 2 labs that were still abnormal at the time of discharge will be reassessed which include a low calcium,, mild anemia, liver function testing 3. I suspect patient has some persistent encephalopathic changes from her severe illness. I discussed this with the and ways to monitor closely and should there be any sign of worsening condition I have recommended a quick return to the emergency room 4. Because of the persistent encephalopathic changes lorazepam will be held 5. Patient is hypotensive in office. This could contribute to encephalopathic changes. Hold furosemide for the next 5 days 6. [facility] 7. Overall I believe the patient has a very high likelihood of readmission to the hospital due to multiple comorbidities and the rapidity with which she became so ill. This is why recommended a low threshold for repeat evaluation should there even be slight suspicion of declining health. In total 43 minutes was spent caring for Laura Mallory today. Total time is from combination of preparing for the visit, reviewing records, obtaining a separate history from the patient's , examining the patient, counseling and educating the patient on hospitalization and illness, prescribing medications, and documentation within the medical record. documented in this encounter Plan of Treatment Not on file documented as of this encounter Procedures Procedure Name Priority Date/Time Associated Diagnosis Comments VITAMIN D,25-HYDROXY Routine 06/09/2025 11:46 AM EDT Hypocalcemia CBC (NO DIFF) Routine 06/09/2025 11:46 AM EDT Pneumonia of both lungs due to infectious organism, unspecified part of lung COMPREHENSIVE METABOLIC PANEL Routine 06/09/2025 11:46 AM EDT Hypocalcemia Shock liver documented in this encounter Results * (ABNORMAL) CBC (No Diff) (06/09/2025 11:46 AM EDT) WBC 25.0(H) 3.4 - 10.8 x10E3/uL [facility] RBC 4.10 3.77 - 5.28 x10E6/uL [facility] Hemoglobin 12.1 11.1 - 15.9 g/dL [facility] Hematocrit 38.9 34.0 - 46.6 % [facility] MCV 95 79 - 97 fL [facility] MCH 29.5 26.6 - 33.0 pg [facility] MCHC 31.1(L) 31.5 - 35.7 g/dL [facility] RDW 16.7(H) 11.7 - 15.4 % [facility] Platelets 472(H) 150 - 450 x10E3/uL [facility] Blood 06/09/2025 11:4 6 AM EDT 06/09/2025 Narrative [facility] (AMBULATORY) - 06/10/2025 7:09 AM EDT Performed at: 01 - [address] [id number] Medical Specialist: Dave Escudero PhD, Phone: [phone] Patient Fasting: Y Manas Jenkins MD LAB BLOOD ORDERABLES Fin al Result [facility] (AMBULATORY) [address] [place] [id number], [facility] [address] [place] [address], * Vitamin D,25-Hydroxy (06/09/2025 11:46 AM EDT) 25 Hydroxy, Vitamin D 55.2 30.0 - 100.0 ng/mL [facility] Comment: Vitamin D deficiency has been defined by the [place] of Medicine and an Endocrine Society practice guideline as a level of serum 25-OH vitamin D less than 20 ng/mL (1,2). The Endocrine Society went on to further define vitamin D insufficiency as a level between 21 and 29 ng/mL (2). 1. IOM ([place] of Medicine). 2010. Dietary reference intakes for calcium and D. [place]: The National Academies Press. 2. Kael BEGUM, Kd KRAMER, Valente HOLCOMB, et al. Evaluation, treatment, and prevention of vitamin D deficiency: an Endocrine Society clinical practice guideline. JCEM. 2010; 96(7):1911-30. Blood 06/09/2025 11:4 6 AM EDT 06/09/2025 Narrative [facility] (AMBULATORY) - 06/10/2025 7:09 AM EDT Performed at: 01 - [facility] [address] [place] [id number] Medical Specialist: Dave Escudero PhD, Phone: [phone] Patient Fasting: Y us Manas Jenkins MD LAB BLOOD ORDERABLES Fin al Result [facility] [address] [place] [address], [place] [phone] [facility] [address] [place] [address], * (ABNORMAL) Comprehensive Metabolic Panel (06/09/2025 11:46 AM EDT) Glucose 134(H) 70 - 99 mg/dL [facility] BUN 19 8 - 27 mg/dL [facility] Creatinine 1.19(H) 0.57 - 1.00 mg/dL [facility] EGFR Result 51(L) >59 mL/min/1.7 3 [facility] BUN/Creatinine Ratio 16 12 - 28 [facility] Sodium 136 134 - 144 mmol/L [facility] Potassium 4.8 3.5 - 5.2 mmol/L [facility] Chloride 99 96 - 106 mmol/L [facility] Total CO2 19(L) 20 - 29 mmol/L [facility] Calcium 9.2 8.7 - 10.3 mg/dL [facility] Total Protein 7.2 6.0 - 8.5 g/dL [facility] Albumin 4.1 3.9 - 4.9 g/dL [facility] Globulin 3.1 1.5 - 4.5 g/dL [facility] Total Bilirubin 0.5 0.0 - 1.2 mg/dL [facility] Alkaline Phosphatase 196(H) 44 - 121 IU/L [facility] AST (SGOT) 14 0 - 40 IU/L [facility] ALT (SGPT) 11 0 - 32 IU/L [facility] Blood 06/09/2025 11:4 6 AM EDT 06/09/2025 Narrative [facility] ([facility]) - 06/10/2025 7:09 AM EDT [facility]formed at: [facility] - [facility] [address] [place], [place] [id number] Medical Specialist: Dave Escudero PhD, Phone: [phone] Patient Fasting: Y us Manas Jenkins MD LAB BLOOD ORDERABLES Fin al Result [facility] (AMBULATORY) [address] [place] [address], [place] [phone] [facility] [address] [place] [address], [place] [phone] documented in this encounter Visit Diagnoses Diagnosis Urinary tract infection without hematuria, site unspecified- Primary Pneumonia of both lungs due to infectious organism, unspecified part of lung Hypocalcemia Shock liver Acute and subacute necrosis of liver Physical deconditioning Muscular wasting and disuse atrophy, not elsewhere classified Primary osteoarthritis of right knee Chronic right-sided low back pain with right-sided sciatica Metabolic encephalopathy Hypotension due to drugs Other iatrogenic hypotension Anemia, unspecified type documented in this encounter Additional Health Concerns Assessment Noted Time PHQ-2 Depression Total Score: 1 11/27/19 24 1:57 PM EST documented as of this encounter Care Teams Inter Com Installer Relationship Specialty Start Date End Date Manas Jenkins MD [address] [place] [address] [place] [address] PCP - General Family Medicine 05/02/22 documented as of this encounter
--- OUTSIDE RECORDS SUMMARY | 2025-06-09 11:15 | XMS_ITS | Encounter Summary ---
Author Organization [facility] yste Address [address] [place] [address] Care Team Providers Care Diabetes Educator Name Role Phone Manas Jenkins MD Primary Care Provider + Reason for Referral * Physical Therapy (Routine) - Closed Specialty Diagnoses / Procedures Referred By Contac t Referred To Contact Physical Therapy Diagnoses Pneumonia of both lungs due to infectious organism, unspecified part of lung Physical deconditioning Procedures [place] OFFICE/OUTPATIENT NEW MODERATE MDM 45 MINUTES Manas Jenkins MD [address] [facility] [place] [address] Phone: tel: fax: [facility] - OUTPT PHYSICAL THERAPY [address] [place] [address] Phone: tel: fax: Referral ID Status Reason Start Date Expiration Date V isits Requested Visits Authorized [id number] Closed Specialty Services Required 06/09/2025 09/08/2026 1 1 Reason for Visit * Reason Comments Hosp Discharge FU / sepsis Pt state's, she is still very weak. Encounter Details Date Type Department Care Team (Latest Contact Info) Description 06/09/2025 11:15 AM EDT Office Visit [facility] FAMILY MEDICINE [address] [place] [id number] Manas Jenkins MD [address] [place] [address] Urinary tract infection without hematuria, [...] Hospital Stay: Patient was hospitalized in the [facility] from May 25 to May 28 after being transferred from [facility] when patient presented with illness and diagnosis of septic shock. Patient had a white blood cell count of 30,000, CT scan of the chest raised suspicion for bilateral pneumonia. She had severe elevation of liver functiontests consistent with shock liver. Due to the level of care needed patient was transferred to [facility]. Patient had a 3-day hospital stay and was discharged with plans for home healthinterventions. Patient resides outside of the [facility] health system. She is in need of [...] social history, past surgicalhistory, and problem list. [facility] Records, Cr--1.5, K--2.4, AST--900+, ALT 500+, [...] [facility]. 7. Overall [...] 11:4 6 AM EDT 06/09/2025 Narrative [facility] (AMBULATORY) - 06/10/2025 7:09 AM EDT Performed at: 01 - [address] [id number] Heater Installer: Dave Escudero PhD, Phone: [phone] Patient Fasting: Y Manas Jenkins MD LAB BLOOD ORDERABLES Fin al Result [facility] (AMBULATORY) [address] [place] [address], [facility] [address] [place] [address], * Vitamin D,25-Hydroxy (06/09/2025 11:46 AM EDT) 25 Hydroxy, Vitamin D 55.2 30.0 - 100.0 ng/mL [facility] Comment: Vitamin D deficiency has been defined by the [place] of Medicine and an Endocrine Society practice guideline as a level of serum 25-OH vitamin D less than 20 ng/mL (1,2). The Endocrine Society went on to further define vitamin D insufficiency as a level between 21 and 29 ng/mL (2). 1. IOM ([place] of Medicine). 2010. Dietary reference intakes for calcium and D. [place]: The National Academies Press. 2. Kael BEGUM, Kd KRAMER, Valente HOLCOMB, et al. Evaluation, treatment, and prevention of vitamin D deficiency: an Endocrine Society clinical practice guideline. JCEM. 2010; 96(7):1911-30. Blood 06/09/2025 11:4 6 AM EDT 06/09/2025 Narrative [facility] (AMBULATORY) - 06/10/2025 7:09 AM EDT Performed at: 01 - [facility] [address] [place] [id number] Heater Installer: Dave Escudero PhD, Phone: [phone] Patient Fasting: Y us Manas Jenkins MD LAB BLOOD ORDERABLES Fin al Result [facility] [address] [place] [address], [place] [phone] [facility] [address] [place] [address], * (ABNORMAL) Comprehensive Metabolic Panel (06/09/2025 11:46 [...] 7:09 AM EDT Performed at: 01 - [facility] [address] [place], [place] [id number] Heater Installer: Dave Escudero PhD, Phone: [phone] Patient Fasting: Y us Manas Jenkins MD LAB BLOOD ORDERABLES Fin al Result [facility] (AMBULATORY) [address] [place] [address], [place] [phone] [facility] [address] [place] [address], [place] [phone] documented in this encounter Visit Diagnoses Diagnosis [...] documented as of this encounter Care Teams Diabetes Educator Relationship Specialty Start Date End Date Manas Jenkins MD [address] [place] [address] [place] [address] PCP - General Family Medicine 05/02/22 documented as of this encounter
--- OUTSIDE RECORDS SUMMARY | 2025-06-30 10:00 | XMS_ITS | Encounter Summary ---
[facility] Address [address] [place] [address] Care Team Providers Care Unit Secretary Name Role Phone Manas Blancas MD Primary Care Provider + Reason for Visit * Reason Comments Follow-up [facility] Discharge complains of dizziness, no appetite, armani st pain On & off since last visit Encounter Details Date Type Department Care Team (Late st Contact Info) Description 06/30/2025 10:00 AM EDT Office Visit [facility] [address] [place] [address] Manas Blancas MD [address] [place] [address] Cystitis (Primary Dx); Chronic diastolic (congestive) heart failure; Nausea; Hypotension, unspecified hypotension type 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 Tobacco Use Types Packs/Day [...] Sign Reading Time Taken Comments Blood Pressure 90/60 06/30/2025 9:56 AM EDT dulce maria nt reading Pulse 84 06/30/2025 9:56 AM EDT Temperature 36.7 C (98 F) 06/30/2025 9:56 AM EDT Respiratory Rate 20 06/30/2025 9:56 AM EDT Oxygen Saturation 97% 06/30/2025 9:56 AM EDT Inhaled Oxygen Concentration - - Weight 115 kg (253 lb) 06/30/2025 9:56 AM EDT Height 165.1 cm (5' 5 ) 06/30/2025 9:56 AM EDT Body Mass Index 42.1 06/30/2025 9:56 AM EDT documented in this encounter Progress Notes * Manas Blancas MD - 06/30/2025 10:00 AM EDTAddended by: MANAS BLANCAS on: 06/30/2025 11:16 AM Modules accepted: Orders * Manas Blancas MD - 06/30/2025 10:00 AM EDT Chief Complaint Patient presents with Follow-up [facility] Discharge complains of dizziness, no appetite, chest pain On & off since last visit Subjective Laura Mallory is a 65 y.o. who presents for follow-up of an emergency room visit that occurredon June 17 at [facility]. Patient had progressive nausea over a weeklong period with malaise and weakness. She presented to the emergency room for evaluation. ER note indicates patient complained of left hip pain as the cause for her visit. Labs from her visit show an elevated whiteblood cell count, elevated CRP and sed rate, CT scan of the abdomen and pelvis without significant findings. Blood and urine cultures were both performed with last documentation of urine culture showing gram-positive cocci of greater than 100,000 CFU's and grew Enterococcus faecium sensitive only to vancomycin. She denies fevers or chills. Her primary complaint continues to be nausea and malaise with fear of falling due to lightheadedness upon standing. The patient's last visit here in this office 3 weeks ago she was hypotensive and had been advised to hold her diuretics. She has a history ofTakotsubo's cardiomyopathy and is on a beta-filomena, spironolactone, Entresto. History is primarilyprovided by the patient's as patient herself does not recall many of the events of her visit to the emergency room. The following portions of the patient's history were reviewed and updated as appropriate: allergies, current medications, past family history, past medical history, past social history, past surgicalhistory, and problem list. Review of Systems Objective Vital Signs: BP 90/60 Comment: faint reading Pulse 84 Temp 98 ??F (36.7 ??C) Resp 20 Ht 165.1 cm (65 ) Wt 115 kg (253 lb) SpO2 97% BMI 42.10 kg/m?? Physical Exam Vitals reviewed. Constitutional: Appearance: Normal appearance. HENT: Head: Normocephalic and atraumatic. Cardiovascular: Rate and Rhythm: Normal rate and regular rhythm. Pulses: Normal pulses. Heart sounds: Normal heart sounds. Pulmonary: Effort: Pulmonary effort is normal. Breath sounds: Normal breath sounds. Abdominal: General: There is no distension. Palpations: Abdomen is soft. Tenderness: There is no abdominal tenderness. Musculoskeletal: Right lower leg: Edema present. Left lower leg: Edema present. Neurological: Mental Status: She is alert. Result Review The following data was reviewed by: Manas Blancas MD on 06/30/2025: Data reviewed : Radiologic studies CT abdomen and pelvis 06/17/2025 and CMP, CBC, sed rate, CRP, urine cultures, blood culture 06/17/2025in addition I also reviewed past available urine cultures for identification of previous organisms. Assessment and Plan Diagnoses and all orders for this visit: 1. Cystitis (Primary) - cefTRIAXone (ROCEPHIN) injection 500 mg - Urine Culture - Urine, Urine, Clean Catch; Future - nitrofurantoin, macrocrystal-monohydrate, (Macrobid) 100 MG capsule; Take 1 capsule by mouth 2 (Two) Times a Day. Dispense: 14 capsule; Refill: 0 2. Chronic diastolic (congestive) heart failure - furosemide (LASIX) 80 MG tablet; Take 1 tablet by mouth Daily. 3. Nausea 4. Hypotension, unspecified hypotension type MDM: 1 acute illness, 1 chronic problem with exacerbation or side effects of treatment impacting care 1. Patient will be given Rocephin IM for urinary tract infection. 2. [facility] has been contacted for finalized culture results of both urine and blood along with the ER note 3. Patient will change how she is using furosemide to an as-needed basis 4. Patient will hold spironolactone due to persistent hypotension 5. Use promethazine for nausea 6. Patient remains at high risk for readmission to the hospital. Inflammatory markers performed during her ER visit are suggestive of a persistent underlying infection as these were higher than past assessments. Once official cultures have been received for final review antibiotics will be prescribed. Patient may require return and admission to the hospital 7. Repeat Urine culture will be ordered for the patient to obtain at [facility] tomorrow(this decision wasmade after patient left the office and all records were received). 8. Rx for Macrobid sent to pharmacy until new Urine Cx becomes availab le Follow Up No follow-ups on file. Patient was given instructions and counseling regarding her condition or for health maintenance advice. Please see specific information pulled into the AVS if appropriate. documented in this encounter Plan of Treatment Scheduled Orders Name Type Priority Associated Diagnoses Orde r Schedule Urine Culture - Urine, Urine, Clean Catch Microbiology Routine Cystitis Expected: 07/01/2025 (Approximate), Expires: 09/30/2026 documented as of this encounter Visit Diagnoses Diagnosis Cystitis- Primary Unspecified cystitis Chronic diastolic (congestive) heart failure Nausea Nausea alone Hypotension, unspecified hypotension type documented in this encounter Administered Medications Inactive Administered Medications - up to 3 most recent administrations Medication Order MAR Action Action Date Dose Rate Site cefTRIAXone (ROCEPHIN) injection 500 mg 500 mg, Intramuscular, Once, On Hannah 06/30/25 at 1018, For 1 dose, Caution: Look alike/sound alike drug alert, Indications: Empiric, Uncomplicated CystitisIndications:Empiric, Uncomplicated Cystitis Given 06/30/2025 10:38 AM EDT 500 mg Left Deltoid documented in this encounter Additional Health Concerns Assessment Noted Time PHQ-2 Depression Total Score: 1 11/27/19 24 1:57 PM EST documented as of this encounter Care Teams Unit Secretary Relationship Specialty Start Date End Date Manas Blancas MD [address] [place] [address] PCP - General Family Medicine 05/02/22 documented as of this encounter
--- OUTSIDE RECORDS SUMMARY | 2025-06-30 10:00 | XMS_ITS | Encounter Summary ---
[facility] Address [address] [place] [address] Care Team Providers Care Sports Equipment Supervisor Name Role Phone Manas Blancas MD Primary Care Provider + Reason for Visit * Reason Comments Follow-up [facility] Discharge complains of dizziness, no appetite, armani st pain On & off since last visit Encounter Details Date Type Department Care Team (Late st Contact Info) Description 06/30/2025 10:00 AM EDT Office Visit [facility] [address] [place] [address] Manas Blancas MD [address] [place] [address] Cystitis (Primary Dx); Chronic diastolic [...] EDT Chief Complaint Patient presents with Follow-up [facility] Discharge complains of dizziness, no appetite, chest pain On & off since last visit Subjective Laura Mallory is a 65 y.o. who presents for follow-up of an emergency room visit that occurredon June 17 at . Patient had progressive nausea over a weeklong [...] Rocephin IM for urinary tract infection. 2. has been contacted for finalized culture results [...] ordered for the patient to obtain at [facility] tomorrow(this decision wasmade after patient left the [...] documented as of this encounter Care Teams Sports Equipment Supervisor Relationship Specialty Start Date End Date Manas Blancas MD [address] [place] [address] PCP - General Family Medicine 05/02/22 documented as of this encounter
--- OUTSIDE RECORDS SUMMARY | 2025-06-30 16:34 | XMS_ITS | Encounter Summary ---
Author Organization [facility] Address [address] [place] [address] Care Team Providers Care Agricultural Education Instructor Name Role Phone Manas Jenkins MD Primary Care Provider [phone] Source Comments This information has been disclosed [...] release of HIV test results or diagnoses. [id number] Health Encounter Details Date Type Department Care Team (Latest Contact Info) Description 06/30/2025 4:34 PM EDT - 06/30/2025 4:36 PM EDT Hospital Encounter [facility] Radiology [address] [place] [address] System, Provider Not In Discharge Disposition: Home or Self Care WITHOUT Home Care Services 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 Tobacco Use Types Packs/Day Years Used Date Smoking Tobacco: Former Cigarettes Smokeless Tobacco: Never Comments:Former 2 PPD cigare tte smoker, quit ~2004 Alcohol Use Standard Drinks/Week Comments No 0 (1 standard drink = 0.6 oz pur e alcohol) Utilities Answer Date Recorded In the past 12 months has [employer], gas, oil, or water [employer] threatened to shut off services in your [...] any time in the past 12 m [facility], were you homeless or living in a senior living (including now)? No 05/25/2025 Comments No Sex and Gender Information Value Date Recorded Sex Assigned at Not on file Legal Sex Female 11:13 AM EST Gender Identity Not on file Sexual Orientation Not on file documented as of this encounter Medications at Time of Discharge [...] 1 puff into the lungs daily. 10/27/2023 documented as of this encounter Plan of Treatment Not on file documented as of this encounter Procedures Procedure Name Priority Date/Time Associated Diagnosis Comments XR COMPARISON IMAGES Routine 06/30/2025 4:34 PM EDT documented in this encounter Results * X-ray Comparison Images (06/30/2025 4:34 PM EDT) Narrative EXTERNAL - 06/30/2025 4:34 PM EDT Images associated with this accession number were presented to us for comparison to an examination performed here. us Provider Not In System IMG DIAGNOSTIC IMAGING OR DERABLES Final Result EXTERNAL documented in this encounter Visit Diagnoses Not on filedocumented in this encounter Additional Health Concerns Assessment Noted Time PHQ-9 Depression Total Score: 0 10/14/20 10:00 AM EST documented as of this encounter Care Teams Agricultural Education Instructor Relationship Specialty Start Date End Date Manas Jenkins MD [address] [place] [address] PCP - General Family Medicine 10/14/17 documented as of this encounter
--- OUTSIDE RECORDS SUMMARY | 2025-06-30 16:34 | XMS_ITS | Encounter Summary ---
Author Organization [facility] Address [address] [place] [address] Care Team Providers Care Clinical Appeals Auditor Name Role Phone Manas Jenkins MD Primary Care Provider [phone] Source Comments This information has been disclosed [...] release of HIV test results or diagnoses. [id number] Health Encounter Details Date Type Department Care Team (Latest Contact Info) Description 06/30/2025 4:34 PM EDT - 06/30/2025 4:36 PM EDT Hospital Encounter [facility] Radiology [address] [place] [address] System, Provider Not In Discharge Disposition: Home [...] Recorded In the past 12 months has [employer], gas, oil, or water [employer] threatened to shut off services in your [...] in the past [address] [facility], were you homeless or living in a mcfp (including now)? No 05/25/2025 Comments No Sex [...] documented as of this encounter Care Teams Clinical Appeals Auditor Relationship Specialty Start Date End Date Manas Jenkins MD [address] [place] [address] PCP - General Family Medicine 10/14/17 documented as of this encounter
--- OUTSIDE RECORDS SUMMARY | 2025-06-30 16:34 | XMS_ITS | Encounter Summary ---
Author Organization [facility] Address [address] [place] [address] Care Team Providers Care Certified Pediatric Nurse Practitioner Name Role Phone Manas Jenkins MD Primary Care Provider [phone] Source Comments This information has been disclosed [...] release of HIV test results or diagnoses. [id number] Health Encounter Details Date Type Department Care Team (Latest Contact Info) Description 06/30/2025 4:34 PM EDT - 06/30/2025 4:36 PM EDT Hospital Encounter [facility] Radiology [address] [place] [address] System, Provider Not In Discharge Disposition: Home [...] Recorded In the past 12 months has [employer], gas, oil, or water [employer] threatened to shut off services in your [...] any time in the past [address] [facility], were you homeless or living in a detention (including now)? No 05/25/2025 Comments No Sex [...] documented as of this encounter Care Teams Certified Pediatric Nurse Practitioner Relationship Specialty Start Date End Date Manas Jenkins MD [address] [place] [address] PCP - General Family Medicine 10/14/17 documented as of this encounter
--- OUTSIDE RECORDS SUMMARY | 2025-06-30 16:34 | XMS_ITS | Encounter Summary ---
Author Organization [facility] Address [address] [place] [address] Care Team Providers Care Courtesy Driver Name Role Phone Manas Jenkins MD Primary Care Provider [phone] Source Comments This information has been disclosed [...] release of HIV test results or diagnoses. [id number] Health Encounter Details Date Type Department Care Team (Latest Contact Info) Description 06/30/2025 4:34 PM EDT - 06/30/2025 4:36 PM EDT Hospital Encounter [facility] Radiology [address] [place] [address] System, Provider Not In Discharge Disposition: Home [...] Recorded In the past 12 months has [employer], gas, oil, or water [employer] threatened to shut off services in your [...] any time in the past 12 m [facility], were you homeless or living in a retirement (including now)? No 05/25/2025 Comments No Sex [...] documented as of this encounter Care Teams Courtesy Driver Relationship Specialty Start Date End Date Manas Jenkins MD [address] [place] [address] PCP - General Family Medicine 10/14/17 documented as of this encounter
--- OUTSIDE RECORDS SUMMARY | 2025-06-30 16:37 | XMS_ITS | Encounter Summary ---
Author Organization [facility] Address [address] [place] [address] Care Team Providers Care Associate Research Scientist Name Role Phone Manas Jenkins MD Primary Care Provider Source Comments This information has been disclosed [...] release of HIV test results or diagnoses. [id number] Health Encounter Details Date Type Department Care Team (Latest Contact Info) Description 06/30/2025 4:37 PM EDT - 06/30/2025 11:59 PM EDT Hospital Encounter [facility] Radiology [address] [place] [address] System, Provider Not In Discharge Disposition: Home [...] Recorded In the past 12 months has [employer], gas, oil, or water [email or web address] threatened to shut off services in your [...] any time in the past 12 m [facility], were you homeless or living in a [...] Diagnosis Comments XR COMPARISON IMAGES Routine 06/30/2025 4:37 PM EDT documented in this encounter Results * X-ray Comparison Images (06/30/2025 4:37 PM EDT) Narrative EXTERNAL - 06/30/2025 4:37 PM EDT Images associated with this accession [...] documented as of this encounter Care Teams Associate Research Scientist Relationship Specialty Start Date End Date Manas Jenkins MD [address] [place] [address] PCP - General Family Medicine 10/14/17 documented as of this encounter
[2025-07-06] VITALS (9 sets, daily range): BP systolic 95–127; BP diastolic 60–75; PULSE 75–88; RESP 14–21; TEMP 36.6–37.1; O2SAT 95–98; BMI 40.7; BMI 42.2
--- OUTSIDE RECORDS SUMMARY | 2025-07-06 17:28 | XMS_ITS | Clinical Summary ---
Author Organization [facility] Address [address] [place] [address] Phone Care Team Providers Care Balance Clerk Name Role Phone Javi Corrales MD Primary [...]
--- OUTSIDE RECORDS SUMMARY | 2025-07-06 17:28 | XMS_ITS | Encounter Summary ---
Author Organization [facility] Address [address] [place] [address] Care Team Providers Care Air Reduction Equipment Operator Name Role Phone Manas Jenkins MD Primary Care Provider [phone] Source Comments This information has been disclosed [...] release of HIV test results or diagnoses. [id number] Health Encounter Details Date Type Department Care [...] Recorded In the past 12 months has [employer], gas, oil, or water [employer] threatened to shut off services in your [...] any time in the past 12 m [facility], were you homeless or living in a [...] documented as of this encounter Care Teams Air Reduction Equipment Operator Relationship Specialty Start Date End Date Manas Jenkins MD [address] [place] [address] PCP - General Family Medicine 10/14/17 documented as of this encounter
--- OUTSIDE RECORDS SUMMARY | 2025-07-06 17:29 | XMS_ITS | Encounter Summary ---
[facility] Address [address] [place] [address] Care Team Providers Care Manager Shift Name Role Phone Manas Blancas MD Primary Care Provider + Reason for Visit * Reason Onset Date Comments MEDICATION QUESTION 06/22/2025 Encounter Details Date Type Department Care Team (Late st Contact Info) Description 06/22/2025 Telephone [facility] FAMILY MEDICINE [address] [place] [address] Manas Blancas MD [address] [place] [address] MEDICATION QUESTION 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 Tobacco Use Types Packs/Day Years [...] Telephone Encounter - Khalida Malcolm MA - 06/27/2025 10:07 AM EDT Pt aware and understood. * Telephone Encounter - Manas Blancas MD - 06/27/2025 8:57 AM EDT Patient was last given the medication 6 months ago. At this time there would be no side effects from discontinuation. Considering all the trouble she has had recently I think it would be best to avoid this medicine * Telephone Encounter - Zee Marcos MA - 06/22/2025 9:19 AM EDT Informed pt you are out until next week * Telephone Encounter - Shruthi Guillen RegSched Rep - 06/22/2025 8:25 AM EDT Caller: Adal Mallory Relationship: Emergency Contact Best call back number: [phone] Which medication are you concerned about: LORAZEPAM Who prescribed you this medication: DR BLANCAS What are your concerns: PATIENT WOULD LIKE TO KNOW IF SHE CAN GO BACK ON THIS MEDICATION. PATIENT IS HAVING SOME SIDE EFFECTS FROM NOT BEING ON MEDICATION SINCE SHE WAS ON IT FOR SO LONG. PLEASE ADVISE documented in this encounter Plan of Treatment Not on file documented as of this encounter Visit Diagnoses Not on filedocumented in this encounter Additional Health Concerns Assessment Noted Time PHQ-2 Depression Total Score: 1 11/27/19 24 1:57 PM EST documented as of this encounter Care Teams Manager Shift Relationship Specialty Start Date End Date Manas Blancas MD [place] [address] PCP - General Family Medicine 05/02/22 documented as of this encounter
--- OUTSIDE RECORDS SUMMARY | 2025-07-06 17:29 | XMS_ITS | Encounter Summary ---
[facility] Address [address] [place] [address] Care Team Providers Care Mopper Name Role Phone Manas Jenkins MD Primary Care Provider + Reason for Visit * Reason Onset Date Comments Med Management 06/15/2025 Encounter Details Date Type Department Care Team (Late st Contact Info) Description 06/15/2025 Telephone [facility] FAMILY MEDICINE [address] [place] [address] Manas Jenkins MD [address] [place] [address] Med Management 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 Tobacco [...] Relationship: Emergency Contact Best call back number: [phone] What is the best time to reach [...] documented as of this encounter Care Teams Mopper Relationship Specialty Start Date End Date Manas Jenkins MD [address] [place] [address] PCP - General Family Medicine 05/02/22 documented as of this encounter
--- OUTSIDE RECORDS SUMMARY | 2025-07-06 17:29 | XMS_ITS | Encounter Summary ---
Author Organization [facility] Address [address] [place] [address] Care Team Providers Care Livestock Farmers Name Role Phone Manas Jenkins MD Primary Care Provider + Reason for Visit * Reason Onset Date Comments Leg Swelling 06/15/2025 Encounter Details Date Type Department Care Team (Late st Contact Info) Description 06/15/2025 Telephone [facility] FAMILY MEDICINE [address] [place] [address] Manas Jenkins MD [address] [place] [address] Leg Swelling 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 Tobacco [...] Relationship: Emergency Contact Best call back number: [phone] What was the call regarding: ADAL NOTICED [...] documented as of this encounter Care Teams Livestock Farmers Relationship Specialty Start Date End Date Manas Jenkins MD [address] [facility] [place] [address] PCP - General Family Medicine 05/02/22 documented as of this encounter
--- OUTSIDE RECORDS SUMMARY | 2025-07-06 17:29 | XMS_ITS | Encounter Summary ---
[facility] [address] [place] [address] Care Team Providers Care Receiver Stocker Name Role Phone Manas Jenkins MD Primary Care Provider + Reason for Visit * Reason Onset Date Comments Med Refill 06/27/2025 Encounter Details Date Type Department Care Team (Late st Contact Info) Description 06/27/2025 Refill [facility] FAMILY MEDICINE [address] [place] [address] Manas Jenkins MD [address] [place] [address] 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 Tobacco Use Types [...] encounter Miscellaneous Notes * Telephone Encounter - Desi Vegas RegSavannahjung Rep - 06/27/2025 9:17 AM EDT Caller: Laura Mallory Relationship: Self Best call back number: Telephone Information: Requested Prescriptions: Requested Prescriptions Pending Prescriptions Disp Refills promethazine (PHENERGAN) 25 MG tablet 30 tablet 0 Pharmacy where request should be sent: [facility] [id number] [phone] [facility] [phone] FX Last office visit with prescribing clinician: 06/09/2025 Last telemedicine visit with prescribing clinician: Visit date not found Next office visit with prescribing clinician: 09/23/2025 Additional details provided by patient: Does the patient have less than a 3 day supply: [x] Yes [] No Would you like a call back once the refill request has been completed: [] Yes [x] No If the office needs to give you a call back, can they leave a voicemail: [] Yes [x] No Raymond Callahan Rep 06/27/25 09:19 EDT documented in this encounter Plan of Treatment Not on file documented as of this encounter Visit Diagnoses Not on filedocumented in this encounter Additional Health Concerns Assessment Noted Time PHQ-2 Depression Total Score: 1 11/27/19 24 1:57 PM EST documented as of this encounter Care Teams Receiver Stocker Relationship Specialty Start Date End Date Manas Jenkins MD [address] [place] [address] PCP - General Family Medicine 05/02/22 documented as of this encounter
--- OUTSIDE RECORDS SUMMARY | 2025-07-06 17:29 | XMS_ITS | Clinical Summary ---
Author Organization [facility] Address [address] [place] [address] Care Team Providers Care Jamb Cutter Name Role Phone Manas Jenkins MD Primary Care Provider [phone] Source Comments This information has been disclosed [...] therelease of HIV test results or diagnoses. [id number] Health Allergies Active Allergy Reactions [...] by mouth 2 times a day. Active cholecalciferol , vitamin D3, 50 mcg (2,000 unit) Cap Take 1 capsule by mouth daily. 03/04/2025 Active celecoxib (CELEBREX) 100 MG capsule Take 1 capsule (100 mg total) by mouth 2 times a day. 04/22/2025 Active famotidine (PEPCID) 20 MG tablet Take 1 tablet (20 mg total) by mouth daily. 12/27/2023 Active TRELEGY ELLIPTA 100-62.5-25 mcg DsDv Inhale 1 puff into the lungs daily. 10/27/2023 Active hydrOXYzine HCL (ATARAX) 25 MG tablet Take 1 tablet (25 mg total) by mouth 2 times a day as needed for Itching or Anxiety. 04/20/2025 Active LINZESS 72 mcg Cap Take 1 capsule (72 mcg total) by mouth every morning before breakfast. 04/29/2025 Active sacubitriL-vals angie (ENTRESTO) 24-26 mg Tab Take 1 tablet by mouth 2 times a day. Active spironolactone (ALDACTONE) 25 MG tablet Take 1 tablet (25 mg total) by mouth 2 times a day. Active traMADoL (ULTRAM) 50 mg tablet Take 1 tablet (50 mg total) by mouth every 8 hours as needed for Pain. 05/05/2025 Active gabapentin (NEURONTIN) 100 MG capsule Take [...] (100 mg total) by mouth daily. 05/28/2025 Active Active Problems Problem Noted Date Diagnosed [...] 4:09 PM EDT): Intermittent BRBPR 1 month [employer]. - Hold home linzess resume upon DC [...] failure 06/2024 Coronary artery disease invo lving [place] coronary artery of [place] heart without angina pectoris 02/26/2023 Assessment & [...] Resolved Date Acute kidney injury 05/27/2025 05/27/20 Acute non-ST segment elevati on myocardial infarction 02/26/2023 05/25/2025 Stress-induced cardiomyopathy 02/26/2023 05/25/2025 Encounters Date Type Department Care Team Description 06/30/2025 4:37 PM EDT - 06/30/2025 11:59 PM EDT Hospital Encounter [facility] [address] [place] [phone] System, Provider Not In Discharge Disposition: Home or Self Care WITHOUT Home Care Services 06/30/2025 4:34 PM EDT - 06/30/2025 4:36 PM EDT Hospital Encounter [facility] [address] [place] [phone] System, Provider Not In Discharge Disposition: Home or Self Care WITHOUT Home Care Services 06/30/2025 4:34 PM EDT - 06/30/2025 4:36 PM EDT Hospital Encounter [facility] [address] [place] [phone] System, Provider Not In Discharge Disposition: Home or Self Care WITHOUT Home Care Services 05/25/2025 6:40 PM EDT - 05/28/2025 1:38 PM EDT Hospital Encounter [facility] [address] [place] [phone] Willem Shin DO Ahmad, Yousef, MD Mehta, Rahul Kaufman MD Mastocytosis (Primary Dx); Shock ([facility]); Elevated LFTs Discharge Disposition: Home WITH Home [...] the past 12 months has th e electric, gas, oil, or water company threatened to shut off services in your [...] any time in the past 12 m [facility], were you homeless or living in a custodial (including now)? No 05/25/2025 Comments No Sex [...] COVID-19 ( - season) 2024 Immunization: Influenza ([employer]) (#1) 2025 Immunization: DTaP/Tdap/Td (2 - Td or Tdap) 01/23/2034 01/24/2024 Hepatitis C Screening ([employer]) Completed Procedures Procedure Name Priority Date/Time Associated Diagnosis Comments XR COMPARISON IMAGES Routine 06/30/2025 4:37 PM EDT XR COMPARISON IMAGES Routine 06/30/2025 4:34 PM EDT XR COMPARISON IMAGES Routine 06/30/2025 4:34 PM EDT EKG - SCAN 05/29/2025 8:22 PM EDT [...] EDT from Last 3 Months Results * X-ray Comparison Images (06/30/2025 4:37 PM EDT) Only the most recent of3 resultswithin the time period is included. Narrative EXTERNAL - 06/30/2025 4:37 PM EDT Images associated with this accession number were presented to us for comparison to an examination performed here. us Provider Not In System IMG DIAGNOSTIC IMAGING OR DERABLES Final Result EXTERNAL * EKG - scan (05/29/2025 8:22 PM [...] - 39 U/L 05/28/2025 6:06 AM EDT [facility] ALT 137(H) 7 - 52 U/L 05/28/2025 6:06 AM EDT [facility] Alkaline Phosphatase 231(H) 36 - 125 U/L 05/28/2025 6:06 AM EDT [facility] Total Protein 6.3(L) 6.4 - 8.9 g/dL 05/28/2025 6:06 AM EDT [facility] Albumin 3.2(L) 3.5 - 5.7 g/dL 05/28/2025 6:06 AM EDT [facility] Bilirubin, Indirect 0.62 0.00 - 1.10 mg/dL 05/28/2025 6:06 AM EDT [facility] Plasma 05/28/2025 4:27 AM EDT 05/28/2025 5:27 AM EDT us Pritesh Mosquera DO LAB BLOOD ORDERABLES Final Resu lt [facility] [address] [place] [address], [facility] * (ABNORMAL) Renal Function Panel w/EGFR (05/28/2025 4:27 AM EDT) Only the most recent of6 resultswithin the time period is included. Sodium 139 133 - 146 mmol/L 05/28/2025 6:06 AM EDT [facility] Potassium 4.3 3.5 - 5.3 mmol/L 05/28/2025 6:06 AM EDT [facility] Comment:Hemolysis Present: R esults may be influenced artificially. Recommend recollection as clinically indicated. Chloride 108 98 - 110 mmol/L 05/28/2025 6:06 AM EDT [facility] CO2 22 21 - 33 mmol/L 05/28/2025 6:06 AM EDT [facility] Anion Gap 9 3 - 16 mmol/L 05/28/2025 6:06 AM EDT [facility] BUN 12 7 - 25 mg/dL 05/28/2025 6:06 AM EDT [facility] Creatinine 0.71 0.60 - 1.30 mg/dL 05/28/2025 6:06 AM EDT [facility] Glucose 81 70 - 100 mg/dL 05/28/2025 6:06 AM EDT [facility] Calcium 8.3(L) 8.6 - 10.3 mg/dL 05/28/2025 6:06 AM EDT [facility] Phosphorus 2.7 2.1 - 4.5 mg/dL 05/28/2025 6:06 AM EDT [facility] Comment:HEMOLYSIS EVIDENT. R ESULTS MAY BE INFLUENCED. Albumin 3.2(L) 3.5 - 5.7 g/dL 05/28/2025 6:06 AM EDT [facility] Osmolality, Calculated 287 278 - 305 mOsm/kg 05/28/2025 6:06 AM EDT [facility] EGFR >90 05/28/2025 6:06 AM EDT [facility] Comment: As of 2022, the [...] [place] LAB BLOOD ORDERABLES Final Resu lt [facility] [address] * (ABNORMAL) CBC (05/28/2025 4:27 AM EDT) Only the most recent of4 resultswithin the time period is included. WBC 9.0 3.8 - 10.8 10E3/uL 05/28/2025 5:38 AM EDT [facility] RBC 3.02(L) 3.80 - 5.10 10E6/uL 05/28/2025 5:38 AM EDT [facility] Hemoglobin 9.2(L) 11.7 - 15.5 g/dL 05/28/2025 5:38 AM EDT [facility] Hematocrit 27.9(L) 35.0 - 45.0 % 05/28/2025 5:38 AM EDT [facility] MCV 92.6 80.0 - 100.0 fL 05/28/2025 5:38 AM EDT [facility] MCH 30.6 27.0 - 33.0 pg 05/28/2025 5:38 AM EDT [facility] MCHC 33.1 32.0 - 36.0 g/dL 05/28/2025 5:38 AM EDT [facility] RDW 18.2(H) 11.0 - 15.0 % 05/28/2025 5:38 AM EDT [facility] Platelets 235 140 - 400 10E3/uL 05/28/2025 5:38 AM EDT [facility] MPV 8.7 7.5 - 11.5 fL 05/28/2025 5:38 AM EDT [facility] Whole Blood 05/28/2025 4:27 AM EDT 05/28/2025 5:27 AM EDT us Pritesh Still DO LAB BLOOD ORDERABLES Final Resu lt Performing Organization Address City/[facility] Co de Phone Number [facility] [address] * Magnesium (05/28/2025 4:27 AM EDT) Only the most recent of4 resultswithin the time period is included. [facility] Magnesium 2.0 1.5 - 2.5 mg/dL 05/28/2025 6:06 AM EDT [facility] Comment:HEMOLYSIS EVIDENT. R ESULTS MAY BE INFLUENCED. Plasma 05/28/2025 4:27 AM EDT 05/28/2025 5:27 AM EDT us Pritesh Still DO LAB BLOOD ORDERABLES Final Resu lt Performing Organization Address [facility] Co de Phone Number [facility] [address] * (ABNORMAL) POC Glucose Monitoring Device (05/27/2025 11:34 PM EDT) Only the most recent of4 resultswithin the time period is included. [facility] POC Glucose Monitoring Device 150(H) 70 - 100 mg/dL 05/27/2025 11:34 PM EDT [facility] Blood 05/27/2025 11:3 4 PM EDT 05/27/2025 11:34 PM EDT Willem Shin DO POINT OF CARE TEST ORDERABLE S Final Result Performing Organization Address [facility] de Phone Number [facility] [address] * Strep Pneumo-Legionella Urine Antigen (05/27/2025 2:11 PM EDT) Strept Pneumo Ag Negative Negative 05/28/2025 3:11 AM EDT [facility] Legionella Antigen Negative Negative 05/28/2025 3:11 AM EDT [facility] Urine 05/27/2025 2:11 PM EDT 05/28/2025 2:05 AM EDT Narrative [facility] - 05/28/2025 3:11 AM EDT Positive indicates detection of either Streptococcus pneumoniae antigen or Legionella pneumophila serogroup 1 antigen. Negative results do not rule out pneumococcal infection or infection with L. pneumophila serogroup 1, other serogroups of L. pneumophila, or other Legionella species. Audi Yates MD URINE ORDERABLES Final Result Performing Organization Address [facility] de Phone Number [facility] [address] * (ABNORMAL) Venous Blood Gas, Line/Syringe, STAT (05/27/2025 1:11 PM EDT) Only the most recent of4 resultswithin the time period is included. PH-Line Draw 7.27(L) 7.32 - 7.42 05/27/2025 1:21 PM EDT [facility] PCO2-Line Draw 50 41 - 51 mm Hg 05/27/2025 1:21 PM EDT [facility] PO2-Line Draw 44(H) 25 - 40 mm Hg 05/27/2025 1:21 PM EDT [facility] HCO3-Line Draw 21(L) 24 - 28 mmol/L 05/27/2025 1:21 PM EDT [facility] CO2 Content-Line Draw 25 25 - 29 mmol/L 05/27/2025 1:21 PM EDT [facility] Base Excess-Line Draw -4.0(L) -2.0 - 3.0 mmol/L 05/27/2025 1:21 PM EDT [facility] %HBO2-Line Draw 69.1 40.0 - 70.0 % 05/27/2025 1:21 PM EDT [facility] Carboxyhgb-Joi e Draw 1.1 % 05/27/2025 1:21 PM EDT [facility] Comment: CARBOXYHEMOGLOBIN (CO) REFERENCE RANGES: Non-Smokers: <2 % Smokers: <8 % TOXIC: >20 % Methemoglobin- Line Draw 0.0 0.0 - 1.5 % 05/27/2025 1:21 PM EDT [facility] Reduced Hemoglobin-Joi e Draw 29.8(H) 0.0 - 5.0 % 05/27/2025 1:21 PM EDT [facility] Venous, Line Draw 05/27/2025 1:11 PM EDT 05/27/2025 1:18 PM EDT Pritesh Mosquera DO LAB BLOOD ORDERABLES Final Resu lt [facility] [address] [facility] [place] [address], [facility] * Hepatitis B Core IgM (05/26/2025 9:04 PM EDT) Hep B Core IgM Nonreactive Nonreactive 05/26/2025 10:32 PM EDT [facility] Serum 05/26/2025 9:04 PM EDT 05/26/2025 9:07 PM EDT Narrative [facility] - 05/26/2025 10:32 PM EDT IgM anti-HBc not detected. Does not exclude the possibility of exposure to or infection with HBV. Cookie Abdul MD LAB BLOOD ORDERABLES Final Resu lt [facility] [address] [facility]. [address] * (ABNORMAL) Hepatitis B Core Antibody (05/26/2025 9:04 PM EDT) Only the most recent of2 resultswithin the time period is included. Pathologist [facility] Hep B Core Total Ab Reactive( A) Nonreactive 05/27/2025 12:02 AM EDT [facility] Comment: Health Department notified in accordance with reportable infectious disease guidelines. Health Department notified in accordance with reportable infectious disease guidelines. Serum 05/26/2025 9:04 PM EDT 05/26/2025 9:07 PM EDT [facility] - 05/27/2025 12:02 AM EDT A reactive final interpretation indicates presumptive evidence of HBV; anti-HBc antibodies were detected in the sample which suggests either on-going or previous HBV infection. Cookie Abdul MD LAB BLOOD ORDERABLES Final Resu lt Performing Organization Address [facility] Co de Phone Number [facility] [address] [facility] * Hepatitis A IgM (05/26/2025 3:02 PM EDT) [facility] Hep A IgM Nonreactive Nonreactive 05/26/2025 7:36 PM EDT [facility] Serum 05/26/2025 3:02 PM EDT 05/26/2025 3:06 PM EDT [facility] - 05/26/2025 7:36 PM EDT IgM anti-HAV not detected. Does not exclude the possibility of exposure to or infection with HAV. Levels of IgM anti-HAV may be below the cut-off in early infection. Lewis Connelly MD LAB BLOOD ORDERABLES Final Resul t Performing Organization Address City/[facility]/ZIP Co de Phone Number [facility] [address] [facility]. [address] * Hepatitis C Antibody (05/26/2025 3:02 PM EDT) HCV Ab Nonreactive Nonreactive 05/26/2025 7:36 PM EDT [facility] Comment:Health Department no tified in accordance with reportable infectious disease guidelines. Serum 05/26/2025 3:02 PM EDT 05/26/2025 3:06 PM EDT [facility] - 05/26/2025 7:36 PM EDT Antibodies to HCV not detected; does not exclude the possibility of exposure to HCV. us Lewis Connelly MD LAB BLOOD ORDERABLES Final Resul t Performing Organization Address [facility] Co de Phone Number [facility] [address] [place] [address]. [address] * (ABNORMAL) Hepatitis B Surface Antibody, Quantitative (05/26/2025 3:02 PM EDT) Hep B S Ab Reactive( A) Nonreactive 05/26/2025 7:37 PM EDT [facility] HBSAB NUMBER >500.00(H ) 0.00 - 7.99 mIU/mL 05/26/2025 7:37 PM EDT [facility] Serum 05/26/2025 3:02 PM EDT 05/26/2025 3:06 PM EDT [facility] - 05/26/2025 7:37 PM EDT Individual is considered immune to HBV infection. us Lewis Connelly MD LAB BLOOD ORDERABLES Final Resul t Performing Organization Address City/[facility]/ZIP Co de Phone Number [facility] [address] [place] [address]. [address] * Hepatitis B Surface Antigen (05/26/2025 3:02 PM EDT) Hep B Surface Ag Nonreactive Nonreactive 05/26/2025 7:36 PM EDT [facility] Comment:Health Department no tified in accordance with reportable infectious disease guidelines. Serum 05/26/2025 3:02 PM EDT 05/26/2025 3:06 PM EDT [facility] - 05/26/2025 7:36 PM EDT Specimen is considered negative for HBsAg. Lewis Connelly MD LAB BLOOD ORDERABLES Final Resul t Performing Organization Address City/[facility]/ZIP Co de Phone Number [facility] [address] * Protime-INR (05/26/2025 3:02 PM EDT) Only the most recent of2 resultswithin the time period is included. Protime 14.6 12.1 - 15.1 seconds 05/26/2025 4:00 PM EDT [facility] INR 1.1 0.9 - 1.1 05/26/2025 4:00 PM EDT [facility] Comment: RECOMMENDED THERAPEUTIC RANGES USING INR : Stable oral anticoagulant therapy: 2.0 - 3.0 Mechanical prosthetic heart valve: 2.5 - 3.5 Recurrent acute myocardial infarction: 2.5 - 3.5 Plasma 05/26/2025 3:02 PM EDT 05/26/2025 3:06 PM EDT us Pritesh Mosquera DO LAB BLOOD ORDERABLES Final Resu lt Performing Organization Address [facility] Co de Phone Number [facility] [address] [facility]. [address] * Lactic Acid (05/26/2025 10:08 AM EDT) Only the most recent of2 resultswithin the time period is included. Lactate 0.8 0.5 - 2.2 mmol/L 05/26/2025 10:40 AM EDT [facility] Plasma 05/26/2025 10:0 8 AM EDT 05/26/2025 10:17 AM EDT us Pritesh Mosquera DO LAB BLOOD ORDERABLES Final Resu lt Performing Organization Address City/[facility]/ZIP Co de Phone Number [facility] [address] * ECHO COMPLETE W/ CONTRAST (05/26/2025 8:56 AM EDT) Anatomical Region Laterality Modality Chest Ultrasound 05/26/2025 8:13 AM EDT Narrative 05/26/2025 9:39 AM EDT * [facility]* [address] [place] [address] Transthoracic Echocardiogram Patient: Laura Mallory Room: [facility] Height: 65in MR Number: [id number] : 1960 Weight: 271lb Account: [id number] Gender: F BP: 91 / 59 Study Date: 05/26/2025 Age: 64 BSA: 2.25m^2 Referring physician: Cookie Abdul Interpreting physician: Eliu Burns MD PERFORMING Eliu Burns MD [employer] REPAIRER Marion Adam ORDERING Cookie Abdul REFERRING Cookie Abdul ATTENDING Eliud Lopez Evan Lynn Procedure:TRANSTHORACIC ECHO (TTE) Order: Accession COMPLETE Number:[id number] Indications: Heart Failure unspecified (I50.9). PMH: Coronary [...] (N) 8 <=14 LVOT Value Ref Peak shreice, S 1.17 m/sec --------- Mean sherice, S [...] Reviewed and confirmed by Eliu Burns MD [id number] Procedure Note Eliu Burns MD - 05/26/2025 * [facility]* [address] [place] [address] Transthoracic Echocardiogram Patient: Laura Mallory Room: NC22 Height: 65in MR Number: [id number] : 1960 Weight: 271lb Account: [id number] Gender: F BP: 91 / 59 Study Date: 05/26/2025 Age: 64 BSA: 2.25m^2 Referring physician: Cookie Abdul Interpreting physician: Eliu Burns MD PERFORMING Eliu Burns MD [employer] REPAIRER Marion Adam ORDERING Cookie Abdul REFERRING Cookie Abdul ATTENDING Eliud Lopez Evan Lynn Procedure:TRANSTHORACIC ECHO (TTE) Order: Accession COMPLETE Number:[id number] Indications: Heart Failure unspecified (I50.9). PMH: Coronary [...] Reviewed and confirmed by Eliu Burns MD [id number] Cookie Abdul MD CV ECHO ORDERABLES Final Result * (ABNORMAL) MRSA/Staph aureus DNA ??? Diagnostic testing for pneumonia (05/26/2025 3:33 AM EDT) MRSA, PCR Negative Negative 05/26/2025 7:00 AM EDT [facility] Staph Aureus, PCR Positive(A) Negative 05/26/2025 7:00 AM EDT [facility] Comment:Test method is a FDA approved amplified DNA assay. Nares Swab BOTH ANTERIOR NARES / Unknown 05/26/2025 3:33 AM EDT 05/26/2025 5:14 AM EDT Narrative [facility] - 05/26/2025 7:00 AM EDT Diagnosis of MRSA Pneumonia->Yes - Place [id number] (this order) us Cookie Abdul MD MICROBIOLOGY - GENERAL ORDERABL ES Final Result Performing Organization Address City/[facility]/ZIP Co de Phone Number [facility] [address] [facility]. [address] * (ABNORMAL) Iron Studies (Iron + TIBC) (05/26/2025 3:33 AM EDT) Iron 38(L) 50 - 212 ug/dL 05/26/2025 6:07 AM EDT [facility] % Iron Saturation 12.2(L) 15.0 - 55.0 % 05/26/2025 6:07 AM EDT [facility] TIBC 311 265 - 497 ug/dL 05/26/2025 6:07 AM EDT [facility] Serum 05/26/2025 3:33 AM EDT 05/26/2025 3:40 AM EDT us Cookie Abdul MD LAB BLOOD ORDERABLES Final Resu lt [facility] [address] [facility]. [address] * Folate (Folic Acid) (05/26/2025 3:33 AM EDT) Folic Acid 8.60 5.90 - 24.80 ng/mL 05/26/2025 4:41 AM EDT [facility] Serum 05/26/2025 3:33 AM EDT 05/26/2025 3:38 AM EDT us Cookie Abdul MD LAB BLOOD ORDERABLES Final Resu lt [facility] [address] [facility] [address] * Ferritin (05/26/2025 3:33 AM EDT) Ferritin 250.6 11.0 - 306.8 ng/mL 05/26/2025 4:38 AM EDT [facility] Serum 05/26/2025 3:33 AM EDT 05/26/2025 3:38 AM EDT us Cookie Abdul MD LAB BLOOD ORDERABLES Final Resu lt Performing Organization Address [facility] Co de Phone Number [facility] [address] [place] [employer] [facility]. [address] * Vitamin B12 (05/26/2025 3:33 AM EDT) Vitamin B-12 730 180 - 914 pg/mL 05/26/2025 4:42 AM EDT [facility] Serum 05/26/2025 3:33 AM EDT 05/26/2025 3:38 AM EDT us Cookie Abdul MD LAB BLOOD ORDERABLES Final Resu lt Performing Organization Address City/[facility]/ZIP Co de Phone Number [facility] [address] * (ABNORMAL) High Sensitivity Troponin (05/26/2025 12:43 AM EDT) Only the most recent of2 resultswithin the time period is included. High Sensitivity Troponin 17(H) 0 - 14 ng/L 05/26/2025 1:28 AM EDT [facility] Serum 05/26/2025 12:4 3 AM EDT 05/26/2025 12:56 AM EDT us Cookie Abdul MD LAB BLOOD ORDERABLES Final Resu lt Performing Organization Address [facility] de Phone Number [facility] [address] * (ABNORMAL) NT-proBNP/Sacubitril/Valsartan (05/26/2025 12:43 AM EDT) NT Pro BNP 1142(H) 0 - 301 pg/mL 05/27/2025 7:40 AM EDT [facility] Comment: The following cut-points have [...] AM EDT 05/27/2025 8:07 AM EDT Narrative [facility] - 05/27/2025 8:07 AM EDT PERFORMED AT: [facility] [phone] RFID SPECIALIST: Dave Escudero, PhD PHONE: [phone] Cookie Abdul MD LAB BLOOD ORDERABLES Final Resu lt Performing Organization Address [facility] Co de Phone Number [facility] [address] [facility]. [address] * (ABNORMAL) Gamma GT (05/26/2025 12:43 AM EDT) GGT 307(H) 9 - 64 U/L 05/26/2025 1:37 AM EDT [facility] Serum 05/26/2025 12:4 3 AM EDT 05/26/2025 12:52 AM EDT us Cookie Abdul MD LAB BLOOD ORDERABLES Final Resu lt [facility] [address] [place] [address], [facility] * (ABNORMAL) Urinalysis w/Rfl to Microscopic (05/25/2025 10:32 PM EDT) Color, UA Yellow Yellow,Straw 05/25/2025 10:55 PM EDT [facility] Clarity, UA Cloudy(A) Clear 05/25/2025 10:55 PM EDT [facility] Specific [place], UA >1.035(H) 1.005 - 1.035 05/25/2025 10:55 PM EDT [facility] pH, UA 6.0 5.0 - 8.0 05/25/2025 10:55 PM EDT [facility] Protein, UA 30(A) Negative mg/dL 05/25/2025 10:55 PM EDT [facility] Glucose, UA Negative Negative mg/dL 05/25/2025 10:55 PM EDT [facility] Ketones, UA Negative Negative mg/dL 05/25/2025 10:55 PM EDT [facility] Bilirubin, UA Negative Negative 05/25/2025 10:55 PM EDT [facility] Blood, UA Moderate(A) Negative 05/25/2025 10:55 PM EDT [facility] Nitrite, UA Negative Negative 05/25/2025 10:55 PM EDT [facility] Urobilinogen, UA 3.0(H) 0.2 - 1.9 mg/dL 05/25/2025 10:55 PM EDT [facility] Leukocyte Esterase, UA Negative Negative 05/25/2025 10:55 PM EDT [facility] RBC, UA 41(H) 0 - 3 /HPF 05/25/2025 10:55 PM EDT [facility] WBC, UA 1 0 - 5 /HPF 05/25/2025 10:55 PM EDT [facility] Squam Epithel, UA 1 0 - 5 /HPF 05/25/2025 10:55 PM EDT [facility] Bacteria, UA Rare(A) None Seen /HPF 05/25/2025 10:55 PM EDT [facility] Urine 05/25/2025 10:3 2 PM EDT 05/25/2025 10:43 PM EDT us Cookie Abdul MD URINE ORDERABLES Final Result Performing Organization Address [facility] Co de Phone Number [facility] [address] * Urine culture (05/25/2025 10:32 PM EDT) Culture Result No Growth After 2 Days [facility] Newly Placed Ni Urine URINE SPECIMEN / Unknown 05/25/2025 10:32 PM EDT 05/25/2025 11:33 PM EDT Cookie Abdul MD MICROBIOLOGY - GENERAL ORDERABL ES Final Result Performing Organization Address [facility] Co de Phone Number [facility] [address] [place] [address] * ECG 12 lead (MUSE) (05/25/2025 9:52 PM EDT) 05/25/2025 9:52 PM EDT Narrative MUSE - 05/26/2025 10:45 AM EDT Ventricular Rate: 68 BPM Atrial Rate: 68 BPM P-R Interval: 198 ms QRS Duration: 80 ms QT: 446 ms QTc: 474 ms P [place]: 58 degrees R [place]: -28 degrees T [place]: 6 degrees Diagnosis Line: NORMAL SINUS RHYTHM ^ LOW VOLTAGE QRS COMPLEXES ^ BORDERLINE ECG ^ No previous ECGs available ^ Confirmed by Conner DONATO MD ([id number]) on 05/26/2025 10:45:34 AM Denisse Albert DO ECG ORDERABLES Final Result Performing Organization Address City/[facility] Co de Phone Number MUSE * HCG Urine, Qualitative (05/25/2025 8:09 PM EDT) hCG Qualitative -Clinitek Negative Negative 05/25/2025 8:30 PM EDT [facility] Urine 05/25/2025 8:09 PM EDT 05/25/2025 8:14 PM EDT Denisse Albert DO URINE ORDERABLES Final Result Performing Organization Address City/[facility]/ZIP Co de Phone Number [facility] [address] * ABO/Rh (05/25/2025 7:21 PM EDT) ABO Grouping O 05/25/2025 8:07 PM EDT [facility] Rh Type Negative 05/25/2025 8:07 PM EDT [facility] Blood 05/25/2025 7:21 PM EDT 05/25/2025 7:45 PM EDT Denisse Albert DO BLOOD BANK TEST ORDERABLES Final Result Performing Organization Address [facility] Co de Phone Number [facility] [address] * #2 Blood culture-Peripheral site 2 (05/25/2025 7:21 PM EDT) Only the most recent of2 resultswithin the time period is included. Culture Result No Growth After 5 Days [facility] Blood BLOOD SPECIMEN / Unknown 05/25/2025 7:21 PM EDT 05/25/2025 8:07 PM EDT Denisse Albert DO MICROBIOLOGY - GENERAL ORDERABLE S Final Result Performing Organization Address City/[facility] Co de Phone Number [facility] [address] * Antibody Screen (05/25/2025 7:21 PM EDT) Antibody Screen Negative 05/25/2025 8:23 PM EDT [facility] Blood 05/25/2025 7:21 PM EDT 05/25/2025 7:45 PM EDT Narrative [facility] - 05/25/2025 8:28 PM EDT Testing performed by [facility] Transfusion [facility] Denisse Albert DO BLOOD BANK TEST ORDERABLES Final Result [facility] [address] * (ABNORMAL) B Natriuretic Peptide (05/25/2025 7:21 PM EDT) BNP 162(H) 0 - 100 pg/mL 05/25/2025 8:31 PM EDT [facility] Comment: BNP may be increased in the presence of sacubitril/valsartan (Entresto). Please interpret accordingly. Plasma 05/25/2025 7:21 PM EDT 05/25/2025 7:44 PM EDT Narrative [facility] - 05/25/2025 8:31 PM EDT The presence of high concentrations of biotin may cause falsely lowered BNP results. Biotin interference may be seen if an individual is taking >5 mg biotin per day. Interpret BNP results in the context of the patient's clinical presentation. Denisse Albert [facility] BLOOD ORDERABLES Final Resul t Performing Organization Address City/[facility]/ZIP Co de Phone Number [facility] [address] [facility]. [address] * Amylase (05/25/2025 7:21 PM EDT) Amylase 22 16 - 117 U/L 05/25/2025 8:23 PM EDT [facility] Serum 05/25/2025 7:21 PM EDT 05/25/2025 7:56 PM EDT Denisse Albert [facility] BLOOD ORDERABLES Final Resul t [facility] [address] * Lipase (05/25/2025 7:20 PM EDT) Lipase 6 4 - 82 U/L 05/25/2025 8:2 3 PM EDT [facility] Plasma 05/25/2025 7:20 PM EDT 05/25/2025 7:56 PM EDT Denisse Albert [facility] BLOOD ORDERABLES Final Resul t Performing Organization Address [facility] Co de Phone Number [facility] [address] * Ammonia (NH3), STAT (05/25/2025 7:20 PM EDT) Ammonia 71 27 - 90 ug/dL 05/25/2025 8:04 PM EDT [facility] Plasma 05/25/2025 7:20 PM EDT 05/25/2025 7:44 PM EDT Denisse Albert [facility] BLOOD ORDERABLES Final Resul t Performing Organization Address [facility] de Phone Number [facility] [address] * (ABNORMAL) Acetaminophen Level (Tylenol), STAT (05/25/2025 7:20 PM EDT) Acetaminophen Level <10(L) 10 - 30 ug/mL 05/25/2025 8:04 PM EDT [facility] Serum 05/25/2025 7:20 PM EDT 05/25/2025 7:44 PM EDT Denisse Albert [facility] BLOOD ORDERABLES Final Resul t Performing Organization Address [facility] de Phone Number [facility] [address] * X-ray Portable Chest (05/25/2025 7:10 [...] - 2.20 mmol/L 05/26/2025 5:58 AM EDT [facility] Blood, Venous 05/25/2025 6:0 7 PM EDT 05/26/2025 5:58 AM EDT Willem Shin DO POINT OF CARE TEST ORDERABLE S Final Result [facility] [address] [place] [address], [facility] * (ABNORMAL) POC TCO2 (05/25/2025 6:07 PM EDT) POC TCO2, Venous 19(L) 25 - 29 mmol/L 05/26/2025 5:58 AM EDT [facility] Blood, Venous 05/25/2025 6:0 7 PM EDT 05/26/2025 5:58 AM EDT Willem Shin DO POINT OF CARE TEST ORDERABLE S Final Result [facility] [address] * POC Sodium (05/25/2025 6:07 PM EDT) POC Sodium 140 136 - 146 mmol/L 05/26/2025 5:58 AM EDT [facility] Blood, Venous 05/25/2025 6:0 7 PM EDT 05/26/2025 5:58 AM EDT Willem Shin DO POINT OF CARE TEST ORDERABLE S Final Result Performing Organization Address City/[facility]/ZIP Co de Phone Number [facility] [address] [facility] * POC Potassium (05/25/2025 6:07 PM EDT) POC Potassium 4.0 3.5 - 5.3 mmol/L 05/26/2025 5:58 AM EDT [facility] Blood, Venous 05/25/2025 6:0 7 PM EDT 05/26/2025 5:58 AM EDT Willem Shin DO POINT OF CARE TEST ORDERABLE S Final Result Performing Organization Address City/[facility]/ZIP Co de Phone Number [facility] [address] [facility] * (ABNORMAL) POC PO2 (05/25/2025 6:07 PM EDT) POC pO2, Venous 45(H) 25 - 40 mm Hg 05/26/2025 5:58 AM EDT [facility] Blood, Venous 05/25/2025 6:0 7 PM EDT 05/26/2025 5:58 AM EDT us Willem Shin DO POINT OF CARE TEST ORDERABLE S Final Result [facility] [address] * (ABNORMAL) POC PCO2 (05/25/2025 6:07 PM EDT) POC pCO2, Venous 36(L) 41 - 51 mm Hg 05/26/2025 5:58 AM EDT [facility] Blood, Venous 05/25/2025 6:0 7 PM EDT 05/26/2025 5:58 AM EDT Willem Shin DO POINT OF CARE TEST ORDERABLE S Final Result Performing Organization Address [facility] Co de Phone Number [facility] [address] [facility] * (ABNORMAL) POC O2 SAT (05/25/2025 6:07 PM EDT) POC O2 Saturation, Venous 77(L) 95 - 98 % 05/26/2025 5:58 AM EDT [facility] Blood, Venous 05/25/2025 6:0 7 PM EDT 05/26/2025 5:58 AM EDT us Willem Shin DO POINT OF CARE TEST ORDERABLE S Final Result [facility] [address] * (ABNORMAL) POC HCO3 (05/25/2025 6:07 PM EDT) POC HCO3, Venous 18(L) 24 - 28 mmol/L 05/26/2025 5:58 AM EDT [facility] Blood, Venous 05/25/2025 6:0 7 PM EDT 05/26/2025 5:58 AM EDT us Willem Shin DO POINT OF CARE TEST ORDERABLE S Final Result [facility] [address] [facility] * POC Chloride (05/25/2025 6:07 PM EDT) Pathologist [facility] POC Chloride 107 98 - 110 mmol/L 05/26/2025 5:58 AM EDT [facility] Blood, Venous 05/25/2025 6:0 7 PM EDT 05/26/2025 5:58 AM EDT Willem Shin DO POINT OF CARE TEST ORDERABLE S Final Result Performing Organization Address [facility] Co de Phone Number [facility] [address] [facility] * (ABNORMAL) POC Base Excess (05/25/2025 6:07 PM EDT) Pathologist [facility] POC Base Excess, Venous -8(L) -2 - 3 mmol/L 05/26/2025 5:58 AM EDT [facility] Blood, Venous 05/25/2025 6:0 7 PM EDT 05/26/2025 5:58 AM EDT Willem Shin DO POINT OF CARE TEST ORDERABLE S Final Result Performing Organization Address City/[facility] Co de Phone Number [facility] [address] [facility] * POC Anion Gap (05/25/2025 6:07 PM EDT) Pathologist [facility] POC Anion Gap, Venous 15 3 - 16 mmol/L 05/26/2025 5:58 AM EDT [facility] Blood, Venous 05/25/2025 6:0 7 PM EDT 05/26/2025 5:58 AM EDT us Willem Shin DO POINT OF CARE TEST ORDERABLE S Final Result [facility] [address] [employer] [facility]. [address] * POC Sample Type (05/25/2025 6:07 PM EDT) POC Sample Type Venous 05/26/2025 5:58 AM EDT [facility] Blood, Venous 05/25/2025 6:0 7 PM EDT 05/26/2025 5:58 AM EDT us Willem Shin DO POINT OF CARE TEST ORDERABLE S Final Result Performing Organization Address [facility] Co de Phone Number [facility] [address] * (ABNORMAL) POC pH (05/25/2025 6:07 PM EDT) POC pH, Venous 7.30(L) 7.32 - 7.42 05/26/2025 5:58 AM EDT [facility] Blood, Venous 05/25/2025 6:0 7 PM EDT 05/26/2025 5:58 AM EDT Willem [facility] [place] POINT OF CARE TEST ORDERABLE S Final Result Performing Organization Address City/[facility]/ZIP Co de Phone Number [facility] [address] [facility]. [address] * (ABNORMAL) POC hematocrit (05/25/2025 6:07 PM EDT) POC Hematocrit 34.0(L) 35 - 45 % 05/26/2025 5:58 AM EDT [facility] Blood, Venous 05/25/2025 6:0 7 PM EDT 05/26/2025 5:58 AM EDT Willem Shin DO POINT OF CARE TEST ORDERABLE S Final Result [facility] [address] * POC creatinine (05/25/2025 6:07 PM EDT) POC Creatinine 1.27 0.60 - 1.30 mg/dL 05/26/2025 5:58 AM EDT [facility] Blood, Venous 05/25/2025 6:0 7 PM EDT 05/26/2025 5:58 AM EDT Willem Shin DO POINT OF CARE TEST ORDERABLE S Final Result Performing Organization Address City/[facility]/ZIP Co de Phone Number [facility] [address] [facility]. [address] * POC Ionized Calcium (05/25/2025 6:07 PM EDT) POC Ionized Calcium 4.50 4.50 - 5.30 mg/dL 05/26/2025 5:58 AM EDT [facility] Blood, Venous 05/25/2025 6:0 7 PM EDT 05/26/2025 5:58 AM EDT us Willem Shin DO POINT OF CARE TEST ORDERABLE S Final Result [facility] [address] [facility]. [address] * (ABNORMAL) POC Glucose (05/25/2025 6:07 PM EDT) POC Glucose, Venous 246(H) 70 - 100 mg/dL 05/26/2025 5:58 AM EDT [facility] Blood, Venous 05/25/2025 6:0 7 PM EDT 05/26/2025 5:58 AM EDT us Willem Shin DO POINT OF CARE TEST ORDERABLE S Final Result [facility] [facility] [address] * (ABNORMAL) POC Hemoglobin (05/25/2025 6:07 PM EDT) Pathologist [facility] POC Hemoglobin 11.6(L) 12.0 - 16.0 g/dL 05/26/2025 5:58 AM EDT [facility] Blood, Venous 05/25/2025 6:0 7 PM EDT 05/26/2025 5:58 AM EDT us Willem Shin DO POINT OF CARE TEST ORDERABLE S Final Result Performing Organization Address [facility] Co de Phone Number [facility] [address] [facility]. [address] from Last 3 Months Insurance [employer] [facility] MEDICARE A AND B [address] [place] [address] Advance Directives For more information, please contact: [phone] * Full Code (Latest Code Status on File) Date Activated Date Inactivated Comments 05/25/2025 6:55 PM 05/28/2025 5:44 PM Care Teams Jamb Cutter Relationship Specialty Start Date End Date Manas Jenkins MD [address] [place] [address] PCP - General Family Medicine 10/14/17
--- OUTSIDE RECORDS SUMMARY | 2025-07-06 17:29 | XMS_ITS | Encounter Summary ---
[facility] Address [address] [place] [address] Care Team Providers Care Wood Last Maker Name Role Phone Manas Jenkins MD Primary Care Provider + Reason for Visit * Reason Comments Med Refill Encounter Details Date Type Department Care Team (Late st Contact Info) Description 05/10/2025 Refill [facility] [address] [place] [address] Manas Jenkins MD [address] [place] [address] 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 Tobacco Use Types [...] documented as of this encounter Care Teams Wood Last Maker Relationship Specialty Start Date End Date Manas Jenkins MD [address] [place] [place] [address] PCP - General Family Medicine 05/02/22 documented as of this encounter
--- OUTSIDE RECORDS SUMMARY | 2025-07-06 17:29 | XMS_ITS | Encounter Summary ---
Author Organization Healthcare Address [address] [place] [address] Care Team Providers Care Tool And Production Planner Name Role Phone Stevo Salter MD Primary Care Provider [phone] Encounter Details Date Type Department Care Team (Late st Contact Info) Description 05/25/2025 Orders Only External Location [address] [place] [phone] [address] [place] [address] [id number] 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 Tobacco Use Types Packs/Day Years [...] on filedocumented in this encounter Care Teams Tool And Production Planner Relationship Specialty Start Date End Date Stevo Salter MD [address] [place] [address] [address] [place] [address] PCP - General 04/06/21 documented as of this encounter
--- OUTSIDE RECORDS SUMMARY | 2025-07-06 17:29 | XMS_ITS | Encounter Summary ---
Author Organization [facility] Address [address] [place] [address] Care Team Providers Care Switchboard Mechanic Name Role Phone Manas Jenkins MD Primary [...] documented as of this encounter Care Teams Switchboard Mechanic Relationship Specialty Start Date End Date Manas Jenkins MD [address] [place] [address] PCP - General Family Medicine 05/02/22 documented as of this encounter
--- OUTSIDE RECORDS SUMMARY | 2025-07-06 17:29 | XMS_ITS | Encounter Summary ---
Author Organization [facility] Address [address] [place] [address] Care Team Providers Care Heel Blacker Name Role Phone Manas Jenkins MD Primary Care Provider + Encounter Details Date Type Department Care Team (Late st Contact Info) Description 06/10/2025 Results Follow-Up [facility] [address] [place] [address] Manas Jenkins MD [address] [place] [address] 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 Tobacco Use Types [...] documented as of this encounter Care Teams Heel Blacker Relationship Specialty Start Date End Date Manas Jenkins MD [address] [place] [address] PCP - General Family Medicine 05/02/22 documented as of this encounter
--- OUTSIDE RECORDS SUMMARY | 2025-07-06 17:29 | XMS_ITS | Encounter Summary ---
[facility] [address] [place] [address] Care Team Providers Care Mail List Librarian Name Role Phone Manas Jenkins MD Primary Care Provider + Reason for Visit * Reason Onset Date Comments CALLBACK 06/27/2025 Encounter Details Date Type Department Care Team (Late st Contact Info) Description 06/27/2025 Telephone [facility] FAMILY MEDICINE [address] [place] [address] Manas Jenkins MD [address] [place] [address] CALLBACK 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 Tobacco Use Types Packs/Day Years [...] encounter Miscellaneous Notes * Telephone Encounter - hKalida Malcolm MA - 06/27/2025 10:57 AM EDT Duplicate msg. See other tel enct. * Telephone Encounter - Johnathan Marin RegSched Rep - 06/27/2025 8:35 AM EDT Caller: Adal Mallory Relationship: Emergency Contact Best call back number: Telephone Information: What is the best time to reach you: ANYTIME Who are you requesting to speak with (clinical staff, provider, specific staff member): PCP Do you know the name of the person who called: What was the call regarding: SPOUSE CALLED IN STATED WOULD LIKE A CALLBACK TO DISCUSS GETTING BACK ON A MEDICATION Is it okay if the provider responds through MyChart: PREFERS CALL documented in this encounter Plan of Treatment Not on file documented as of this encounter Visit Diagnoses Not on filedocumented in this encounter Additional Health Concerns Assessment Noted Time PHQ-2 Depression Total Score: 1 11/27/19 24 1:57 PM EST documented as of this encounter Care Teams Mail List Librarian Relationship Specialty Start Date End Date Manas Jenkins MD [address] [place] [address] PCP - General Family Medicine 05/02/22 documented as of this encounter
--- OUTSIDE RECORDS SUMMARY | 2025-07-06 17:29 | XMS_ITS | Encounter Summary ---
[facility] Organization [facility] Address [address] [place] [address] Care Team Providers Care Chief Clinical Dietitian Name Role Phone Manas Jenkins MD Primary Care Provider + Reason for Visit * Reason Comments Med Refill Encounter Details Date Type Department Care Team (Late st Contact Info) Description 06/07/2025 Refill [facility] FAMILY MEDICINE [address] [place] [address] Manas Jenkins MD [address] [place] [address] Primary osteoarthritis of right knee; [...] documented as of this encounter Care Teams Chief Clinical Dietitian Relationship Specialty Start Date End Date Manas Jenkins MD [address] [place] [address] PCP - General Family Medicine 05/02/22 documented as of this encounter
--- OUTSIDE RECORDS SUMMARY | 2025-07-06 17:29 | XMS_ITS | Encounter Summary ---
[facility] Address [address] [place] [address] Care Team Providers Care Senior Clinical Project Manager Name Role Phone Manas Jenkins MD Primary Care Provider + Reason for Visit * Reason Onset Date Comments REQUEST CALL BACK 07/06/2025 Encounter Details Date Type Department Care Team (Late st Contact Info) Description 07/06/2025 Telephone [facility] [address] [place] [address] Manas Jenkins MD [address] [place] [address] REQUEST CALL BACK 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 Tobacco Use Types Packs/Day Years [...] Telephone Encounter - Zee Marcos MA - 07/06/2025 4:41 PM EDT Spoke w/ pt and she denies fever but has vomited four times today, cannot keep anything down, very weak. I informed her she will probably needs IV fluids at this point and we need the urine culture completed that was ordered, that could be the issue. Pt voiced understanding. She was instructed to go back to ER. * Telephone Encounter - Neal Giron RegSched Rep - 07/06/2025 2:35 PM EDT RELAYED MESSAGE TO ADAL. HE SAYS SHE WAS NOT FEELING GOOD THAT DAY. * Telephone Encounter - Zee Marcos MA - 07/06/2025 11:49 AM EDT LM for spouse: Pt was supposed to repeat her urine culture over at [facility] on 07-01 and they said, she has not been there. Why was this not completed? Dr. Jenkins was trying to see if that was what some of her issue was. Pt may need to return to ER again if she is getting weaker. HUB can ask and relay response. * Telephone Encounter - Jonathan Jama - 07/06/2025 11:09 AM EDT SPOUSE OF PATIENT HAS CALLED TO LET PCP KNOW THAT THE PATIENT HAS HAD NO APPETITE, NAUSEA, AND WEAKNESS. SPOUSE IS REQUESTING A CALL BACK TO ADVISE ON WHAT PCP THINKS SHOULD BE DONE TO TREAT. CALL BACK NUMBER [phone] documented in this encounter Plan of Treatment Not on file documented as of this encounter Visit Diagnoses Not on filedocumented in this encounter Additional Health Concerns Assessment Noted Time PHQ-2 Depression Total Score: 1 11/27/19 24 1:57 PM EST documented as of this encounter Care Teams Senior Clinical Project Manager Relationship Specialty Start Date End Date Manas Jenkins MD [address] [place] [address] PCP - General Family Medicine 05/02/22 documented as of this encounter
--- OUTSIDE RECORDS SUMMARY | 2025-07-06 17:29 | XMS_ITS | Encounter Summary ---
[facility] [address] [place] [address] Care Team Providers Care Manager Visual Name Role Phone Manas Jenkins MD Primary Care Provider + Reason for Visit * Reason Onset Date Comments Medication Problem 06/07/2025 Encounter Details Date Type Department Care Team (Late st Contact Info) Description 06/07/2025 Refill [facility] [address] [place] [address] Manas Jenkins MD [address] [place] [address] Primary osteoarthritis of right knee; [...] encounter Miscellaneous Notes * Telephone Encounter - MaldonadoYue RegSched Rep - 06/07/2025 2:56 PM EDT Caller: Laura Mallory Relationship: Self Best call back number: [phone] Requested Prescriptions: Requested Prescriptions Pending Prescriptions Disp Refills traMADol (ULTRAM) 50 MG tablet 90 tablet 0 Sig: Take 1 tablet by mouth Every 8 (Eight) Hours As Needed for Moderate Pain. Pharmacy where request should be sent: [facility] - [place], [place] - [address] [facility] - [phone] [facility] [phone] FX Last office visit with prescribing clinician: 05/20/2025 [...] as of this encounter Care Teams Manager Visual Relationship Specialty Start Date End Date Manas Jenkins MD [facility] [place] [address] PCP - General Family Medicine 05/02/22 documented as of this encounter
--- OUTSIDE RECORDS SUMMARY | 2025-07-06 17:29 | XMS_ITS | Encounter Summary ---
[facility] Address [address] [place] [address] Care Team Providers Care Basket Hand Weaver Name Role Phone Manas Jenkins MD Primary Care Provider + Reason for Visit * Reason Onset Date Comments HOME HEALTH VERBAL NEEDED 05/30/2025 Encounter Details Date Type Department Care Team (Late st Contact Info) Description 05/30/2025 Telephone [facility] FAMILY MEDICINE [address] [place] [address] Manas Jenkins MD [address] [place] [address] HOME HEALTH VERBAL NEEDED Social [...] - 06/06/2025 8:42 AM EDT [facility] with [facility] stated that they are out of her [...] - 05/30/2025 11:03 AM EDT [place] WITH [facility] CALLED NEEDING A VERBAL TO DELAY THEIR INITIAL VISIT WITH PATIENT. THEY HAVE BEEN UNABLE TO GET IN CONTTACT WITH PATIENT YET. PLEASE CALL [phone] WHICH IS ASECURED LINE documented in this encounter Plan of Treatment Not on file documented as of this encounter Visit Diagnoses Not on filedocumented in this encounter Additional Health Concerns Assessment Noted Time PHQ-2 Depression Total Score: 1 11/27/19 24 1:57 PM EST documented as of this encounter Care Teams Basket Hand Weaver Relationship Specialty Start Date End Date Manas Jenkins MD [address] [address] PCP - General Family Medicine 05/02/22 documented as of this encounter
--- OUTSIDE RECORDS SUMMARY | 2025-07-06 17:29 | XMS_ITS | Encounter Summary ---
Author Organization [facility] Address [address] [place] [address] Care Team Providers Care Auto Clutch Specialist Name Role Phone Manas Jenkins MD [...] documented as of this encounter Care Teams Auto Clutch Specialist Relationship Specialty Start Date End Date Maans Jenkins MD [address] [place] [address] PCP - General Family Medicine 05/02/22 documented as of this encounter
--- OUTSIDE RECORDS SUMMARY | 2025-07-06 17:29 | XMS_ITS | Encounter Summary ---
[facility] Address [address] [place] [address] Care Team Providers Care Stain Remover Name Role Phone Manas Jenkins MD Primary Care Provider + Reason for Visit * Reason Comments Med Refill Encounter Details Date Type Department Care Team (Late st Contact Info) Description 01/30/2025 Refill [facility] FAMILY MEDICINE [address] [place] [address] aMnas Jenkins MD [address] [place] [address] 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 Tobacco Use Types [...] Mallory Relationship: Self Best call back number: [phone] Requested Prescriptions: Requested Prescriptions Pending Prescriptions Disp Refills promethazine (PHENERGAN) 25 MG tablet [Pharmacy Med Name: PROMETHAZINE 25MG] 30 tablet 0 Sig: TAKE 1 TABLET BY MOUTH EVERY SIX HOURS NEEDED FOR NAUSEA OR VOMITING MAY CAUSE DROWSINESS Pharmacy where request should be sent: [facility] [place] - [address] [facility] [phone] [facility] [phone] FX Last office visit with prescribing clinician: 11/04/2024 Last telemedicine visit with prescribing clinician: Visit date not found Next office visit with prescribing clinician: 02/16/2025 Additional details provided by patient: PATIENT IS OUT OF MEDICATION Does the patient have less than a 3 day supply: [x] Yes [] No Raymond Patel 03/01/25 08:23 EDT documented in this encounter Plan of Treatment Not on file documented as of this encounter Visit Diagnoses Not on filedocumented in this encounter Additional Health Concerns Assessment Noted Time PHQ-2 Depression Total Score: 1 11/27/19 24 1:57 PM EST documented as of this encounter Care Teams Stain Remover Relationship Specialty Start Date End Date Manas Jenkins MD [address] [facility] [place] [address] PCP - General Family Medicine 05/02/22 documented as of this encounter
--- OUTSIDE RECORDS SUMMARY | 2025-07-06 17:29 | XMS_ITS | Encounter Summary ---
[facility] Organization [facility] Address [address] [place] [address] Care Team Providers Care Mobile Game Engineer Name Role Phone Manas Jenkins MD Primary Care Provider + Reason for Visit * Reason Comments Med Refill Encounter Details Date Type Department Care Team (Late st Contact Info) Description 06/17/2025 Refill [facility] FAMILY MEDICINE [address] [place] [address] Manas Jenkins MD [address] [place] [address] 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 Tobacco Use Types [...] documented as of this encounter Care Teams Mobile Game Engineer Relationship Specialty Start Date End Date Manas Jenkins MD [address] [place] [address] PCP - General Family Medicine 05/02/22 documented as of this encounter
--- OUTSIDE RECORDS SUMMARY | 2025-07-06 17:29 | XMS_ITS | Encounter Summary ---
[facility] [address] [place] [address] Care Team Providers Care Parcel Post Delivery Name Role Phone Manas Jenkins MD Primary Care Provider + Reason for Visit * Reason Comments Med Refill Encounter Details Date Type Department Care Team (Late st Contact Info) Description 05/30/2025 Refill [facility] FAMILY MEDICINE [address] [place] [address] Manas Jenkins MD [address] [place] [address] 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 Tobacco Use Types [...] documented as of this encounter Care Teams Parcel Post Delivery Relationship Specialty Start Date End Date Manas Jenkins MD [address] [place] [address] PCP - General Family Medicine 05/02/22 documented as of this encounter
--- OUTSIDE RECORDS SUMMARY | 2025-07-06 17:29 | XMS_ITS | Encounter Summary ---
Author Organization [facility] Address [address] [place] [address] Care Team Providers Care Principal Secretary Name Role Phone Manas Jenkins MD Primary Care Provider + Encounter Details Date Type Department Care Team (Latest Contact Info) Description 06/30/2025 Travel 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 Tobacco Use Types Packs/Day [...] documented as of this encounter Care Teams Principal Secretary Relationship Specialty Start Date End Date Manas Jenkins MD [address] [place] [address] PCP - General Family Medicine 05/02/22 documented as of this encounter
--- OUTSIDE RECORDS SUMMARY | 2025-07-06 17:29 | XMS_ITS | Encounter Summary ---
[facility] Address [address] [place] [address] Care Team Providers Care Finance Admin Name Role Phone Manas Jenkins MD Primary Care Provider + Reason for Visit * Reason Comments Med Refill Encounter Details Date Type Department Care Team (Late st Contact Info) Description 06/26/2025 Refill [facility] FAMILY MEDICINE [address] [place] [address] Manas Jenkins MD [address] [place] [address] 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 Tobacco Use Types [...] documented as of this encounter Care Teams Finance Admin Relationship Specialty Start Date End Date Manas Jenkins MD [address] [place] [address] PCP - General Family Medicine 05/02/22 documented as of this encounter
--- OUTSIDE RECORDS SUMMARY | 2025-07-06 17:29 | XMS_ITS | Clinical Summary ---
Author Organization [facility] Address [address] [id number] Care Team Providers Care Doughnut Icer Name Role Phone Stevo Salter MD Primary Care Provider [phone] Encounters Date Type Department Care Team Description 05/25/2025 Orders Only External Location [address] [place] [address] Jarod Cazares from Last 3 Months Social [...] Td Vaccine s (1 - Tdap) 1978 CT Colonography 2004 Colonoscopy 2004 FIT-DNA 2004 FIT 2004 FOBT 2004 Sigmoidoscopy 2004 [facility]-Colorectal Cancer Screening 2004 [facility]-Pneumococcal Vaccine: 50 + Years (1 of 1 - PCV) 2009 [facility]-Zoster Vaccines (1 of 2) 2009 [id number] Vaccine (1 - 20 24-25 season) 2024 [...] Ultrasound 05/25/2025 2:17 PM EDT Jarod Cazares [facility] Final Result from Last 3 Months Insurance MEDICARE [place] Care Teams Doughnut Icer Relationship Specialty Start Date End Date Stevo Salter MD [address] [place] [address] [address] [place] [address] PCP - General 04/06/21
--- OUTSIDE RECORDS SUMMARY | 2025-07-06 17:29 | XMS_ITS | Encounter Summary ---
[facility] Address [address] [place] [address] Care Team Providers Care Rheumatologist Name Role Phone Manas Jenkins MD Primary Care Provider + Reason for Visit * Reason Onset Date Comments Med Refill 01/16/2023 Encounter Details Date Type Department Care Team (Late st Contact Info) Description 01/16/2023 Refill [facility] FAMILY MEDICINE [address] [place] [address] Manas Jenkins MD [address] [place] [address] Migraine without aura and without [...] Mallory Relationship: Self Best call back number: [phone] Requested Prescriptions: Requested Prescriptions Pending Prescriptions Disp [...] Day. Pharmacy where request should be sent: [facility] [address] [phone] PH - [phone] FX Additional details provided by patient: PATIENT [...] voicemail: [x] Yes [] No Raymond Sparks 01/16/23 10:38 EST documented in this encounter Plan of Treatment Not on file documented as of this encounter Visit Diagnoses Diagnosis Migraine without aura and without status migrainosus, not intractable Lumbar degenerative disc disease documented in this encounter Additional Health Concerns Assessment Noted Time PHQ-2 Depression Total Score: 2 01/07/20 23 2:21 PM EST documented as of this encounter Care Teams Rheumatologist Relationship Specialty Start Date End Date Manas Jenkins MD [address] [facility] [place] [address] PCP - General Family Medicine 05/02/22 documented as of this encounter
--- OUTSIDE RECORDS SUMMARY | 2025-07-06 17:29 | XMS_ITS | Encounter Summary ---
[facility] Address [address] [place] [address] Care Team Providers Care Physician Representative Name Role Phone Manas Jenkins MD Primary Care Provider + Encounter Details Date Type Department Care Team (Late st Contact Info) Description 05/24/2025 Results Follow-Up [facility] FAMILY MEDICINE [address] [place] [address] Manas Jenkins MD [address] [place] [address] 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 Tobacco Use Types [...] documented as of this encounter Care Teams Physician Representative Relationship Specialty Start Date End Date Manas Jenkins MD [address] [place] [address] PCP - General Family Medicine 05/02/22 documented as of this encounter
--- OUTSIDE RECORDS SUMMARY | 2025-07-06 17:29 | XMS_ITS | Encounter Summary ---
Author Organization [facility] Address [address] [place] [address] Care Team Providers Care Counter Helper Name Role Phone Manas Blancas MD Primary Care Provider + Reason for Visit * Reason Onset Date Comments Med Refill 09/17/2022 Encounter Details Date Type Department Care Team (Late st Contact Info) Description 09/17/2022 Refill [facility] FAMILY MEDICINE [address] [place] [address] Manas Blancas MD [address] [place] [address] Lumbar degenerative disc disease Social [...] Mallory Relationship: Self Best call back number: [phone] Requested Prescriptions: Requested Prescriptions Pending Prescriptions Disp Refills ??? oxyCODONE-acetaminophen (PERCOCET) 10-325 MG per tablet 90 tablet 0 Sig: Take 1 tablet by mouth Every 8 (Eight) Hours As Needed for Severe Pain. ??? potassium chloride (K-DUR,KLOR-CON) 20 MEQ CR tablet 90 tablet 2 Sig: Take 1 tablet by mouth 3 (Three) Times a Day. Pharmacy where request should be sent: [facility] - [id number] [phone] [facility] [phone] Additional details provided by patient: PATIENT STATED [...] Assessment Noted Time PHQ-2 Depression Total Score: 05/02/20 22 12:07 PM EDT documented as of this encounter Care Teams Counter Helper Relationship Specialty Start Date End Date Manas Blancas MD [address] [facility] [place] [address] PCP - General Family Medicine 05/02/22 documented as of this encounter
--- OUTSIDE RECORDS SUMMARY | 2025-07-06 17:29 | XMS_ITS | Encounter Summary ---
[facility] Address [address] [place] [address] Care Team Providers Care Bi Manager Name Role Phone Manas Jenkins MD Primary Care Provider + Reason for Visit * Reason Onset Date Comments Med Refill 03/01/2025 Encounter Details Date Type Department Care Team (Late st Contact Info) Description 03/01/2025 Refill [facility] FAMILY MEDICINE [address] [place] [address] Manas Jenkins MD [address] [place] [address] Primary osteoarthritis of right knee; [...] Jenkins is out this wk. Suggested she turkey picker the remaining refill at the pharmacy until he returns. She understood. * Telephone Encounter - Lorena Chawla RegSched Rep - 03/01/2025 8:11 AM EDT Caller: Laura Mallory Relationship: Self Best call back number: [phone] Requested Prescriptions: Requested Prescriptions Pending Prescriptions Disp Refills traMADol (ULTRAM) 50 MG tablet 90 tablet 1 Sig: Take 1 tablet by mouth Every 8 (Eight) Hours As Needed for Moderate Pain. Pharmacy where request should be sent: [facility] - [address] [phone] [facility] [phone] Last office visit with prescribing clinician: 11/04/2024 [...] documented as of this encounter Care Teams Bi Manager Relationship Specialty Start Date End Date Manas Jenkins MD [address] [place] [address] PCP - General Family Medicine 05/02/22 documented as of this encounter
--- OUTSIDE RECORDS SUMMARY | 2025-07-06 17:30 | XMS_ITS | Clinical Summary ---
[facility] Organization [facility] Address [address] [place] [address] Care Team Providers Care Building Guard Deputy Sheriff Name Role Phone Manas Jenkins MD Primary Care Provider + Allergies Active Allergy Reactions Criticality Noted Date Comments Fexofenadine Nausea And Vomiting 10/14/2017 Naproxen Sodium Swelling 10/14/2017 Sumatriptan Anaphylaxis High 03/11/2023 Acetaminophen Diarrhea 01/07/2023 Medications aspirin (aspirin) 81 MG EC tablet Take by mouth Daily. 013 Active albuterol sulfate HFA 108 (90 Base) MCG/ACT inhaler 022 Active omeprazole (priLOSEC) 40 MG capsule TAKE 1 CAPSULE BY MOUTH ONCE DAILY 30 capsule 11 022 Active carvedilol (COREG) 3.125 MG tablet Take 1 tablet by mouth 2 (Two) Times a Day With Meals. Active sacubitril-valsar jackson (ENTRESTO) 24-26 MG tablet Take 1 tablet by mouth 2 (Two) Times a Day. Active spironolactone (ALDACTONE) 25 MG tablet Take 1 tablet by mouth 2 (Two) Times a Day. Active polyethylene glycol (MiraLax) 17 GM/SCOOP powder Take 17 g by mouth Daily. 578 g 11 023 Active Trelegy Ellipta 100-62.5-25 MCG/ACT inhaler Inhale 1 puff Daily. 023 Active topiramate (TOPAMAX) 100 MG tablet Take 1 tablet by mouth 2 (Two) Times a Day. 023 Active famotidine (PEPCID) 20 MG tablet Take 1 tablet by mouth Daily. 024 Active mirtazapine (REMERON) 15 MG tablet Take 1 tablet by mouth Every Night. 024 Active phenazopyridine (Pyridium) 200 MG tablet Take 1 tablet by mouth 3 (Three) Times a Day As Needed for Bladder Spasms. 6 tablet 025 Active LORazepam (ATIVAN) 0.5 MG tabletIndications :Chronic anxiety TAKE 1 TABLET BY MOUTH TWICE DAILY NEEDED FOR ANXIETY MAY CAUSE DROWSINESS 60 tablet 025 Active Additional Information Patient not taking.Reported on 06/30/2025 Cholecalciferol (Vitamin D3) 50 MCG (1999 [place]) capsule TAKE 1 CAPSULE BY MOUTH ONCE DAILY 30 capsule 4 025 Active gabapentin (NEURONTIN) 100 MG capsuleIndication s:Chronic right-sided low back pain with right-sided sciatica TAKE 1 CAPSULE BY MOUTH THREE TIMES DAILY MAY CAUSE DROWSINESS 90 capsule 025 Active Linzess 72 MCG capsule capsule Take 1 capsule by mouth Every Morning Before Breakfast. 025 Active celecoxib (CeleBREX) 100 MG capsule Take 1 capsule by mouth 2 (Two) Times a Day. 025 Active atorvastatin (LIPITOR) 40 MG tabletIndications :Hypercholesterol emia Take 1 tablet by mouth Every Night. 90 tablet 025 Active DULoxetine (CYMBALTA) 60 MG capsuleIndication s:Chronic right-sided low back pain with right-sided sciatica Take 1 capsule by mouth Daily. 30 capsule 3 025 Active traMADol (ULTRAM) 50 MG tabletIndications :Primary osteoarthritis of right knee,Chronic right-sided low back pain with right-sided sciatica Take 1 tablet by mouth Every 8 (Eight) Hours As Needed for Moderate Pain. 90 tablet 025 Active hydrOXYzine (ATARAX) 25 MG tablet TAKE 1 TABLET BY MOUTH TWICE DAILY NEEDED FOR ITCHING MAY CAUSE DROWSINESS 60 tablet 2 025 Active ondansetron ODT (ZOFRAN-ODT) 4 MG disintegrating tablet DISSOLVE 1 TABLET IN MOUTH EVERY SIX HOURS NEEDED FOR NAUSEA AND VOMITING 10 tablet 025 Active promethazine (PHENERGAN) 25 MG tablet Take 1 tablet by mouth Every 6 (Six) Hours As Needed for Nausea or Vomiting. 30 tablet 025 Active furosemide (LASIX) 80 MG tabletIndications :Chronic diastolic (congestive) heart failure Take 1 tablet by mouth Daily. Active nitrofurantoin, macrocrystal-mono hydrate, (Macrobid) 100 MG capsuleIndication s:Cystitis Take 1 capsule by mouth 2 (Two) Times a Day. 14 capsule Active furosemide (LASIX) 80 MG tabletIndications :Chronic diastolic (congestive) heart failure Take 1 tablet by mouth 2 (Two) Times a Day. 60 tablet 1 024 2024 Discontinued hydrOXYzine (ATARAX) 25 MG tablet TAKE 1 TABLET BY MOUTH TWICE DAILY NEEDED FOR ITCHING. 60 tablet 1 025 2024 Discontinued promethazine (PHENERGAN) 25 MG tablet TAKE 1 TABLET BY MOUTH EVERY 6 (SIX) HOURS NEEDED FOR NAUSEA OR VOMITING MAY CAUSE DROWSINESS 30 tablet 025 2024 Discontinued(R eorder) traMADol (ULTRAM) 50 MG tabletIndications :Primary osteoarthritis of right knee,Chronic right-sided low back pain with right-sided sciatica Take 1 tablet by mouth Every 8 (Eight) Hours As Needed for Moderate Pain. 90 tablet 025 2024 Discontinued(R eorder) cefdinir (OMNICEF) 300 MG capsule Take 1 capsule by mouth 2 (Two) Times a Day. 14 capsule 025 2024 Discontinued(* Therapy completed) Hospital, Clinic, or Other Facility Administered Medication Ordered Dose Route Frequency Start Date End Date Status cefTRIAXone (ROCEPHIN) injection 500 mgIndications:Empiric,Uncom plicated Cystitis 500 mg IM Once 06/30/2025 06/30/2025 Ended Active Problems Problem Noted Date Diagnosed Date [...] Encounters Date Type Department Care Team Description 07/06/2025 Telephone [facility] [address] [place] [address] Manas Jenkins MD REQUEST CALL BACK 06/30/2025 10:00 AM EDT Office Visit [facility] [address] [place] [address] Manas Jenkins MD Cystitis (Primary Dx); Chronic diastolic (congestive) heart failure; Nausea; Hypotension, unspecified hypotension type 06/30/2025 Travel 06/27/[address] [facility] [address] [place] [address] Manas Jenkins MD 06/27/[address] [facility] [address] [place] [place] [address] Manas Jenkins MD CALLBACK 06/26/[address] [facility] [address] [place] [address] Manas Jenkins MD 06/22/[address] [facility] [address] [place] [address] Manas Jenkins MD MEDICATION QUESTION 06/17/[address] [facility] [address] [place] [address] Manas Jenkins MD 06/15/[address] [facility] [address] [place] [address] Manas Jenkins MD Med Management 06/15/[address] [facility] [address] [place] [address] Manas Jenkins MD Leg Swelling 06/10/2025 Results Follow-Up [facility] [address] [place] [address] Manas Jenkins MD 06/09/2025 11:15 AM EDT Office Visit [facility] [address] [place] [address] Manas Jenkins MD Urinary tract infection without hematuria, site unspecified (Primary Dx); Pneumonia of both lungs due to infectious organism, unspecified part of lung; Hypocalcemia; Shock liver; Physical deconditioning; Primary osteoarthritis of right knee; Chronic right-sided low back pain with right-sided sciatica; Metabolic encephalopathy; Hypotension due to drugs; Anemia, unspecified type 06/09/2025 Travel 06/07/[address] [facility] [address] [place] [address] Manas Jenkins MD Primary osteoarthritis of right knee; Chronic right-sided low back pain with right-sided sciatica 06/07/[address] [facility] [address] [place] [address] Manas Jenkins MD Primary osteoarthritis of right knee; Chronic right-sided low back pain with right-sided sciatica 05/30/[address] [facility] [address] [place] [address] Manas Jenkins MD 05/30/[address] [facility] [address] [place] [address] Manas Jenkins MD HOME HEALTH VERBAL NEEDED 05/24/2025 Results Follow-Up [facility] [address] [place] [address] Manas Jenkins MD 05/20/2025 4:00 PM EDT Office Visit [facility] [address] [place] [address] Manas Jenkins MD Hypercholesterolemia (Primary Dx); Chronic right-sided low back pain with right-sided sciatica; Hyperglycemia; Moderate persistent asthma without complication; Bilateral hip joint arthritis; Chronic pain syndrome; Chronic anxiety; Chronic diastolic (congestive) heart failure; Obesity, Class III, BMI 40-49.9 (morbid obesity); Stress-induced cardiomyopathy; Polypharmacy 05/20/2025 Travel 05/10/[address] [facility] [address] [facility] [place] [address] Manas Jenkins MD 05/05/[address] [facility] [address] [place] [address] Manas Jenkins MD Primary osteoarthritis of right knee; Chronic right-sided low back pain with right-sided sciatica 04/20/[address] [facility] [address] [place] [address] Manas Jenkins MD 04/19/[address] [facility] [address] [place] [address] Manas Jenkins MD 04/07/[address] [facility] [address] [place] [address] Manas Jenkins MD Chronic right-sided low back [...] Mass Index 42.1 06/30/2025 9:56 AM EDT Plan of Treatment Health Maintenance Due Date Last Done Comments DXA SCAN 1960 Pneumococcal Vaccine 50+ (1 of 2 - PCV) 1978 COLOGUARD 2004 COLON CANCER SCREENING [address] COLONOGRAPHY 2004 FIT Testing (1 year) 2004 ZOSTER VACCINE (1 of 2) 2009 FECAL OCCULT BLOOD TEST 12/03/2017 12/03/19 17, 08/31/2015, 07/30/2013 COVID-19 Vaccine ( season) 2025 [...] Procedure Name Priority Date/Time Associated Diagnosis Comments SCANNED - LABS 06/17/2025 SCANNED - LABS 06/17/2025 SCANNED - LABS 06/17/2025 SCANNED - LABS 06/17/2025 SCANNED - LABS 06/17/2025 SCANNED - LABS 06/17/2025 SCANNED - LABS 06/17/2025 SCANNED - LABS 06/17/2025 SCANNED - LABS 06/17/2025 SCANNED - LABS 06/17/2025 SCANNED - LABS 06/17/2025 SCANNED - LABS 06/17/2025 SCANNED - LABS 06/17/2025 SCANNED - LABS 06/17/2025 SCANNED - IMAGING 06/17/2025 CBC (NO DIFF) Routine 06/09/2025 11:46 AM [...] 04/05/2025 from Last 3 Months Results * IMAGING SCANNED (06/17/2025) Only the most recent of9 resultswithin the time period is included. Anatomical Region Laterality Modality Radiographic Destiny ging Manas Jenkins MD IMG DIAGNOSTIC IMAGING O RDERABLES Final Result * LABS SCANNED (06/17/2025) Only the most recent of35 resultswithin the time period is included. Manas Jenkins MD LAB BLOOD ORDERABLES Fin al Result * Vitamin D,25-Hydroxy (06/09/2025 11:46 AM EDT) 25 Hydroxy, Vitamin D 55.2 30.0 - 100.0 ng/mL [facility] Comment: Vitamin D deficiency has been defined by the Coulters of Medicine and an Endocrine Society practice guideline as a level of serum 25-OH vitamin D less than 20 ng/mL (1,2). The Endocrine Society went on to further define vitamin D insufficiency as a level between 21 and 29 ng/mL (2). 1. IOM (Coulters of Medicine). 2010. Dietary reference intakes for calcium and D. [place]: The National Academies Press. 2. Kael MF, Kd KRAMER, Valente HOLCOMB, et al. Evaluation, treatment, and prevention of vitamin D deficiency: an Endocrine Society clinical practice guideline. JCEM. 2010; 96(0):1911-30. Blood 06/09/2025 11:4 6 AM EDT 06/09/2025 Narrative [facility] (AMBULATORY) - 06/10/2025 7:09 AM EDT Performed at: [address] [place] [id number] Psychology Technician: Dave Escudero PhD, Phone: [phone] Patient Fasting: Y Manas Jenkins MD LAB BLOOD ORDERABLES Fin al Result [facility] (AMBULATORY) [address] [place], [place] [id number], [facility] [address] [place] [address], * (ABNORMAL) CBC (No Diff) (06/09/2025 11:46 [...] 11:4 6 AM EDT 06/09/2025 Narrative [facility] (AMBULATORY) - 06/10/2025 7:09 AM EDT Performed at: [facility] [id number] Psychology Technician: Dave Escudero PhD, Phone: [phone] Patient Fasting: Y us Manas Jenkins MD LAB BLOOD ORDERABLES Fin al Result [facility] (AMBULATORY) [address] [place] [address], [place] [phone] [facility] [address] [place] [address], [place] [phone] * (ABNORMAL) Comprehensive Metabolic Panel (06/09/2025 11:46 AM EDT) Pathologist [facility] Glucose 134(H) 70 - 99 mg/dL [facility] [...] 7:09 AM EDT Performed at: 01 - [facility] [address] [place], [place] [id number] Psychology Technician: Dave Escudero PhD, Phone: [phone] Patient Fasting: Y Manas Jenkins MD LAB BLOOD ORDERABLES Fin al Result Performing Organization Address City/[facility]/ZIP Co de Phone Number [facility] [address] [place] [address], [place] [phone] [facility] [address] [place] [address], [place] [phone] * ECG Scan (05/25/2025) Manas Jenkins MD ECG ORDERABLES Final Re sult * (ABNORMAL) Hemoglobin A1c (05/20/2025 3:59 PM EDT) Pathologist [facility] Hemoglobin A1C 5.7(H) 4.8 - 5.6 % [facility] Comment: Prediabetes: 5.7 - 6.4 Diabetes: >6.4 Glycemic control for adults with diabetes: <7.0 Blood 05/20/2025 3:59 PM EDT 05/20/2025 N[facility]ative [facility] - 05/24/2025 8:11 AM EDT Performed at: - [facility] [address] [place] [id number] Psychology Technician: Dave Escudero PhD, Phone: [phone] Patient Fasting: Y Manas Jenkins MD LAB BLOOD ORDERABLES Fin al Result Performing Organization Address City/[facility]/ZIP Co de Phone Number [facility] [address] [place] [address], [place] [phone] [facility] [address] [place] [address], [place] [phone] * Lipid Panel (05/20/2025 3:59 PM EDT) Total Cholesterol 152 100 - 199 mg/dL [facility] Triglycerides 138 0 - 149 mg/dL [facility] HDL Cholesterol 43 >39 mg/dL [facility] VLDL Cholesterol Kuldeep 24 5 - 40 mg/dL [facility] LDL Chol Calc (NIH) 85 0 - 99 mg/dL [facility] Blood 05/20/2025 3:59 PM EDT 05/20/2025 Narrative [facility] (AMBULATORY) - 05/24/2025 8:11 AM EDT Performed at: 01 - [facility] [address] [place], [place] [id number] Psychology Technician: Dave Escudero PhD, Phone: [phone] Patient Fasting: Y Manas Jenkins MD LAB BLOOD ORDERABLES Fin al Result [facility] (AMBULATORY) [address] [place] [address], [place] [phone] [facility] [address] [place] [address], from Last 3 Months Insurance MEDICARE A & B Member Subscriber Plan / Payer (Ef fective 2000-Present) Name:Laura Mallory Member ID:[id number] Relation to Subscriber:Self Name:Laura Mallory Subscriber ID:[id number] Payer ID:[id number] Group ID:Not on file Type:Not on file Address: [facility] [id number] [address] Care Teams Building Guard Deputy Sheriff Relationship Specialty Start Date End Date Manas Jenkins MD [address] [place] [id number] PCP - General Family Medicine 05/02/22
--- OUTSIDE RECORDS SUMMARY | 2025-07-06 17:30 | XMS_ITS | Clinical Summary ---
Author Organization [facility] Address [facility] [place] [address] Phone Care Team Providers Care Adjunct Professor Of Voice Name Role Phone Manas Jenkins [place] Primary Care Provider Allergies No known [...] Screening 1977 DTaP/TDaP/Td (1 - Tdap) 1978 Breast Cancer Screening 1999 Cologuard 2004 Colon Cancer Screening 2004 Colonoscopy 2004 FIT 2004 Sigmoidoscopy 2004 Virtual Colonography 2004 Pneumococcal Vaccine 50+ (1 of 1 - PCV) 2009 Zoster (1 of 2) 2009 Bone Density Screening 2024 COVID-19 Vaccine (1 - 2023-2 5 season) 2024 Influenza Vaccine (#1) 2025 Hepatitis B Vaccine Aged Out No longe r eligible based on patient's age to complete this topic Meningococcal B Vaccine Aged Out No l onger eligible based on patient's age to complete this topic Insurance [id number] [place] [id number] [place] [address] [facility] [id number] Care Teams Adjunct Professor Of Voice Relationship Specialty Start Date End Date Manas Jenkins [address] [place] [address] PCP - General 08/28/10
--- OUTSIDE RECORDS SUMMARY | 2025-07-06 17:30 | XMS_ITS | Encounter Summary ---
[facility] [address] [place] [address] Care Team Providers Care Manager Psychiatry Name Role Phone Manas Jenkins MD Primary Care Provider + Reason for Visit * Reason Onset Date Comments Med Refill 05/22/2022 New Med Request 05/22/2022 Encounter Details Date Type Department Care Team (Late st Contact Info) Description 05/22/2022 Refill [facility] [address] [place] [address] Manas Jenkins MD [address] [place] [address] Lumbar degenerative disc disease Social [...] Mallory Relationship: Self Best call back number: [phone] What medication are you requesting: What are your current symptoms: COUGHING AND CHEST COLD (CONGESTION) AND A SMALL WHEEZE How long have you been experiencing symptoms: 2 DAYS Have you had these symptoms before: [x] Yes [] No Have you been treated for these symptoms before: [x] Yes [] No If a prescription is needed, what is your preferred pharmacy and phone number: [facility] [address] [facility] - [phone] [facility] [phone] FX Additional notes: PLEASE CALL TO ADVISE * Telephone Encounter - Joel Waldron RegSched Rep - 05/22/2022 1:34 PM EDT Caller: Laura Mallory Relationship: Self Best call back number: [phone] Requested Prescriptions: Requested Prescriptions Pending Prescriptions Disp Refills ??? oxyCODONE-acetaminophen (Percocet) 10-325 MG per tablet 90 tablet 0 Sig: Take 1 tablet by mouth Every 8 (Eight) Hours As Needed for Severe Pain . Pharmacy where request should be sent: [facility] [address] - [phone] [facility] [phone] FX Additional details provided by patient: Does [...] as of this encounter Care Teams Manager Psychiatry Relationship Specialty Start Date End Date Manas Jenkins MD [address] [place] [address] [place] [address] PCP - General Family Medicine 05/02/22 documented as of this encounter
--- OUTSIDE RECORDS SUMMARY | 2025-07-06 17:30 | XMS_ITS | Encounter Summary ---
[facility] [address] [place] [address] Care Team Providers Care Mobile Electronics Installer Name Role Phone Manas Jenkins MD Primary Care Provider + Reason for Visit * Reason Comments Med Refill Encounter Details Date Type Department Care Team (Late st Contact Info) Description 08/19/2022 Refill [facility] [address] [place] [address] Manas Jenkins MD [address] [place] [address] Lumbar degenerative disc disease Social [...] as of this encounter Care Teams Mobile Electronics Installer Relationship Specialty Start Date End Date Manas Jenkins MD [address] [place] [address] PCP - General Family Medicine 05/02/22 documented as of this encounter
--- OUTSIDE RECORDS SUMMARY | 2025-07-06 17:30 | XMS_ITS | Encounter Summary ---
[facility] [address] [place] [address] Care Team Providers Care Ethnic Origins Teacher Name Role Phone Manas Jenkins MD Primary Care Provider + Reason for Visit * Reason Comments Med Refill Encounter Details Date Type Department Care Team (Late st Contact Info) Description 05/24/2022 Refill [facility] [address] [place] [address] Manas Jenkins MD [address] [place] [address] Lumbar degenerative disc disease Social [...] documented as of this encounter Care Teams Ethnic Origins Teacher Relationship Specialty Start Date End Date Manas Jenkins MD [address] [place] [address] PCP - General Family Medicine 05/02/22 documented as of this encounter
--- NOTE | 2025-07-06 17:35 | ECG_ITS ---
APPROVED REPORT Exam: Resting ECG HR:88 bpm ECG Measurements Heart Rate 88 AXES ME 169 P 26 QRSd 105 QRS -59 QT 383 T 92 QTc 429 Conclusion SINUS RHYTHM WITH SINUS ARRHYTHMIA LOW QRS VOLTAGE IN PRECORDIAL LEADS [QRS DEFLECTION < 1.0 mV IN CHEST LEADS] LEFT ANTERIOR FASCICULAR BLOCK [QRS AXIS <= -45, QR IN I, RS IN II] POSSIBLE ANTERIOR MYOCARDIAL INFARCTION , PROBABLY OLD [30 ms Q WAVE IN V3/V4, OR R < 0.2 mV IN V4] MODERATE T-WAVE ABNORMALITY, CONSIDER LATERAL ISCHEMIA [-0.1+ mV T-WAVE IN I/aVL/V5/V6] ABNORMAL ECG UNCONFIRMED REPORT Normal sinus rhythm. No ST elevation or depression. Electronically signed by : RANULFO ELLIS, 07/06/2025 18:15:49
--- NOTE | 2025-07-06 17:35 | XR_ITS ---
PROCEDURE INFORMATION: Exam: XR Chest Exam date and time: 07/06/2025 5:53 PM Age: 65 years old Clinical indication: Other: Weakness TECHNIQUE: Imaging protocol: Radiologic exam of the chest. Views: 1 view. COMPARISON: CR XR CHEST PORTABLE 05/25/2025 2:41 PM FINDINGS: Lungs: See Pleural spaces finding. Pleural spaces: Low lung volumes are present without pleural effusions or consolidations that project above the diaphragm. Heart/Mediastinum: Unremarkable. No cardiomegaly. Bones/joints: Unremarkable. IMPRESSION: No acute findings.
--- NOTE | 2025-07-06 17:45 | ED_ITS ---
<Statement entered by Mohsen Haywood MD - 07/07/25 03:25> I was consulted by the DION, and we discussed the complexity of the problems being addressed. I approve the treatment and management plan for this patient's care in the emergency department, thus performing a substantive portion of the medical decision making. Mohsen Haywood MD Discharge Plan Disposition Patient Disposition: Admitted Condition: Good Clinical Impressions Clinical Impression: Sepsis, Colitis, Urinary tract infection, Acute lactic acidosis, FER (acute kidney injury) Discharge ED Provider: Mohsen Haywood General Adult HPI <Marsha Meza (ED), [employer] - Last Filed: 07/06/25 22:43> General Chief complaint: Weakness Stated complaint: nausea,vomiting,weakness Time Seen by Provider: 07/06/25 17:28 History of Present Illness HPI narrative: 65-year-old female presents to the ED today for complaint of weakness, nausea and vomiting. She says she has been unable to walk because of the weakness recently. She has been using a wheelchair and having the help of her to get around. She was told to follow-up about getting a urine 2 days ago but she was too sick to come. Patient went to [facility] due to sepsis on May 29. She was airlifted from [facility] on nor epi drip and septic this May 29 visit. She states that since for a week. She has been weak since this visit. She has been back here a couple of times since as well. She has also seen her primary care physician since then as well. Patient has history of diverticulitis, hip pain, UTIs, constipation, COPD osteoarthritis, chronic back pain, CAD, migraines, lumbar radiculopathy, anxiety, obesity, insomnia, sleep apnea, hyperlipidemia, hypertension. Related Data Home Medications ?Medication ?Instructions ?Recorded ?Confirmed atorvastatin 40 mg tablet 40 mg PO HS 11/22/24 5 cholecalciferol (vitamin D3) 50 50 mcg PO DAILY 06/17/25 mcg (2,000 unit) capsule duloxetine 60 mg capsule,delayed 60 mg PO DAILY 06/17/25 release famotidine 20 mg tablet 20 mg PO DAILY 11/22/2405/25 gabapentin 100 mg capsule 100 mg PO DAILY 11/22/24 hydroxyzine HCl 25 mg tablet 25 mg PO DAILY 11/22/24 0 06/17/25 lorazepam 0.5 mg tablet 0.5 mg PO DAILY 11/22/24 tramadol 50 mg tablet 50 mg PO DAILY 11/22/2405/25 aspirin 81 mg capsule 81 mg PO DAILY 12/29/2405/25 promethazine 25 mg tablet 25 mg PO Q6H PRN Nausea 03/2406/17/25 linaclotide 72 mcg capsule 72 mcg PO DAILY 05/05/25 (Linzess) omeprazole 20 mg capsule,delayed 20 mg PO DAILY 06/17/25 release Previous Rx's ?Medication ?Instructions ?Recorded methylnaltrexone 150 mg tablet 450 mg (3 x 150 mg) PO DAILY #90 12/29/24 (Relistor) tabs albuterol sulfate 90 mcg/actuation 2 inh inhalation Q6 H PRN shortness 01/19/25 aerosol inhaler (Ventolin HFA) of breath or wheezing 9 0 days #18 grams fluticasone fur. 100 mcg-umeclid 1 inh inhalation RICK Y 90 days #90 01/19/25 62.5 mcg-vilant 25 mcg ea inhalat.powder (Trelegy Ellipta) spironolactone 25 mg tablet See Rx Instructions .Route 03/03/25 .COMPLEX #90 tabs mirtazapine 15 mg tablet See Rx Instructions .Route 0 03/18/25 .COMPLEX #30 tabs quetiapine 50 mg tablet See Rx Instructions .Route 0 03/18/25 .COMPLEX #30 tabs topiramate 100 mg tablet See Rx Instructions .Route 0 03/18/25 .COMPLEX #75 tabs estradiol 0.01% (0.1 mg/gram) 1 appful vaginal DAILY 3 0 days 03/21/25 vaginal cream (Estrace) #42.5 grams oxybutynin chloride 10 mg 10 mg PO DAILY #90 tabs 02/23 07/18 tablet,extended release 24 hr sacubitril 24 mg-valsartan 26 mg See Rx Instructions . Route 03/21/25 tablet (Entresto) .COMPLEX #90 tabs ondansetron 4 mg disintegrating 4 mg PO Q6H PRN nausea and 04/13/25 tablet vomiting #10 tabs ipratropium 0.5 mg-albuterol 3 mg 3 ml inhalation QID PRN shortness 05/05/25 (2.5 mg base)/3 mL nebulization of breath or wheezing 90 days #270 soln mL carvedilol 3.125 mg tablet 3.125 mg PO BID 30 days #60 tabs 06/20/25 furosemide 40 mg tablet See Rx Instructions .Route 0 06/20/25 .COMPLEX #180 tabs celecoxib 100 mg capsule See Rx Instructions .Route 0 06/21/25 .COMPLEX #60 caps Allergies Allergy/AdvReac Type Severity Reaction Status Date / Time sumatriptan Allergy Severe Difficulty Verified 05/05/25 13:42 Breathing fexofenadine (FEXOFENADINE) Allergy Intermediate SICK Verified 05/05/25 13:42 amoxicillin (From AUGMENTIN) Allergy Unknown SOA Verified 05/05/25 13:42 clavulanic acid (From Allergy Unknown SOA Verified 05/05/25 13:42 AUGMENTIN) naproxen (NAPROXEN) Allergy Unknown SWELLING Verified 05/05/25 13:42 PFSH <Marsha Meza (ED), [employer] - Last Filed: 07/06/25 22:43> PFS Disclaimer: The information contained in this section may have been updated after the patient was seen, as this information can be updated by other users. Medical History Anxiety and depression Arthritis Urinary tract infection History of COVID-19 Migraine History of stroke History of gastroesophageal reflux (GERD) History of anemia Insomnia COPD mixed type Oral dyskinesia Most likely secondary to prochlorperazine already discontinued by PCP Lung nodule Dyspnea on exertion Encounter for screening for malignant neoplasm of lung History of asthma Stopped smoking with greater than 30 pack year history Edema of both lower extremities Takotsubo cardiomyopathy Mediastinal lymphadenopathy Hilar lymphadenopathy Asthma exacerbation APARNA (obstructive sleep apnea) Noncompliant with CPAP treatment. Brain TIA Asthma Hyperglycemia A1c hemoglobin pending, follow-up with PCP for results. Tremor 09/08/2024: Initial good response to topiramate but worsening of tremor since last visit. Indications, possible side effects were reviewed once again with the patient and her including but not limited to nephrolithiasis, paresthesias, word finding difficulty, neuro glaucoma). APARNA (obstructive sleep apnea) Osteoarthritis She was wheelchair-bound at last appointment and currently ambulatory with a walker Hypertensive disorder Hyperlipidemia Gastroesophageal reflux disease Surgical History H/O elbow surgery LEFT History of carpal tunnel surgery of right wrist History of carpal tunnel surgery of left wrist H/O: History of arthroplasty of left shoulder H/O: hysterectomy History of cholecystectomy Family History Other Cancer 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 (Updated 07/06/25 @ 21:58 by Maribel Baldwin RN) Smoking Status: Never smoker second hand exposure: Yes alcohol intake: former substance use type: denies use current occupational status: disabled Travel in the last 8 weeks?: None household members: spouse housing: other marital status: current occupational exposures/hazards: No caffeine: Yes Have you lived/traveled outside [place] in past 30 days?: No Contact w/someone who lives/traveled outside US past 30 days?: No Exposure to someone with infectious disease in past 14 days?: No Do you have a fever (greater than 100.4 F or 38 C)?: No Have you tested positive for COVID-19?: No Exposed to someone with COVID-19 in past 14 days?: No Do you have a sore throat?: No Do you have a cough?: No Do you have any weakness?: No Do you have any diarrhea?: No Are you experiencing any unusual bleeding?: No Do you have any muscle aches/pain?: No Do you have any abdominal pain?: No Are you experiencing loss of taste or smell?: No Other Medical History Have you received the Flu Vaccine for this season: No Have you received the Pneumonia Vaccine: No <Marsha Meza (ED), [employer] - Last Filed: 07/06/25 22:43> ROS Obtained: Yes Systems reviewed as appropriate & no additional complaints except as documented Constitutional Constitutional: Reports as per HPI Physical Exam <Marsha Meza (ED), [employer] - Last Filed: 07/06/25 22:43> General General appearance: alert and obese Head Head exam: normocephalic Eye Eye exam: Present PERRL and EOMI ENT ENT exam: Present normal oropharynx and mucous membranes moist Neck Neck exam: Present full ROM and trachea midline Respiratory Respiratory exam: Present normal lung sounds bilaterally Cardiovascular Cardiovascular exam: Present regular rate, normal rhythm, normal heart sounds, +S1 and +S2 Abdominal Exam Abdominal exam: Present soft and normal bowel sounds Extremities Exam Extremities exam: Present normal capillary refill Neurological Exam Neurological exam: Present alert and oriented X3 Skin Skin exam: Present warm and dry Medical Decision Making <Marsha Meza (ED), [employer] - Last Filed: 07/06/25 22:43> Medical Records Screening: Per USPSTF and CDC recommendations, given the prevalence of disease in our region, it is our hospital?s policy to screen for HIV and viral Hepatitis for all patients aged 18 and over and those with ongoing risk factors. Adonay Inquiry Pt receiving controlled substance: No Adonay was queried for this patient: No Vital Signs: 07/06/25 17:39 07/06/25 17:44 07/06/25 18:00 Temperature 98.1 F Temperature Source Oral Pulse Rate 88 Pulse Rate [Left Brachial] 79 Respiratory Rate 18 14 18 Blood Pressure 105/63 L 95/63 L Blood Pressure [Left Arm] 105/63 L Blood Pressure Mean Blood Pressure Mean [Left Arm] 77 Blood Pressure Source [Left Arm] Automatic Cuff Blood Pressure Position [Left Arm] Left Lateral 02 Sat by Pulse Oximetry 96 95 Oxygen Delivery Method Room Air 07/06/25 19:18 07/06/25 19:31 07/06/25 20:01 Temperature Temperature Source Pulse Rate 79 78 77 Pulse Rate [Left Brachial] Respiratory Rate 21 19 17 Blood Pressure 111/60 106/72 L 127/75 Blood Pressure [Left Arm] Blood Pressure Mean 77 80 92 Blood Pressure Mean [Left Arm] Blood Pressure Source [Left Arm] Blood Pressure Position [Left Arm] 02 Sat by Pulse Oximetry 97 95 98 Oxygen Delivery Method 07/06/25 20:31 Temperature Temperature Source Pulse Rate 75 Pulse Rate [Left Brachial] Respiratory Rate 16 Blood Pressure 121/71 Blood Pressure [Left Arm] Blood Pressure Mean 97 Blood Pressure Mean [Left Arm] Blood Pressure Source [Left Arm] Blood Pressure Position [Left Arm] 02 Sat by Pulse Oximetry 97 Oxygen Delivery Method Lab Data Lab Results 07/06/25 17:35: WBC 22.6 H*, RBC 4.29, Hgb 12.7, Hct 39.2, MCV 91.4, MCH 29.6, MCHC 32.4, RDW 17.6 H, Plt Count 529 H, MPV 10.0, Neut % (Auto) 82.1 H, Lymph % (Auto) 6.6 L, Clark % (Auto) 9.9 H, Eos % (Auto) 0.1, Baso % (Auto) 0.5, Neut # (Auto) 18.6 H, Lymph # (Auto) 1.5, Clark # (Auto) 2.2 H, Eos # (Auto) 0.0, Baso # (Auto) 0.1, Total Counted 100, Neutrophils % (Manual) 81 H, Lymphocytes % (Manual) 14, Monocytes % (Manual) 5, Platelet Estimate Marked increase, RBC Morphology Normal, ESR 25, D-Dimer 1.61 H, VBG pH 7.32, VBG pCO2 44.3, VBG pO2 36.0, VBG HCO3 22.3 L, VBG Total CO2 23.7, VBG O2 Saturation 61.0, VBG Base Excess -3.8 L, VBG Lactic Acid 3.8 H, Sodium 133 L, Potassium 3.9, Chloride 98, Carbon Dioxide 24, Anion Gap 14.9, BUN 19 H, Creatinine 1.70 H, Estimated Creat Clear 57, Estimated GFR 30 L, Est GFR ( Amer) 36 L, Glucose 120 H, L actate 2.8 H, Calcium 8.5, Magnesium 1.1 L, Total Bilirubin 1.0, AST 37 H, ALT 16, Alkaline Phosphatase 131 H, Troponin I 0.01, C-Reactive Protein 39.0 H, Total Protein 8.0, Albumin 4.3, Globulin 3.7 H, Albumin/Globulin Ratio 1.2, Lipase 92 07/06/25 17:44: SARS-CoV-2 (PCR) Not detected, Influenza A Untype (PCR) Not detected, Influenza Type B (PCR) Not detected 07/06/25 20:06: Urine Color Yellow, Urine Appearance Clear, Urine pH 6.0, Ur Specific Morton 1.010, Urine Protein Negative, Urine Glucose (UA) Negative, Urine Ketones Negative, Urine Blood Trace-i, Urine Nitrate Negative, Urine Bilirubin Negative, Urine Urobilinogen 0.2, Ur Leukocyte Esterase 2+ A, Urine RBC 5-10, Urine WBC 20-50, Ur Squamous Epith Cells 5-10, Urine Bacteria 1+ 07/06/25 21:00: Troponin I < 0.01 07/06/25 17:35 07/06/25 17:35 Orders (Tests/Meds): ED MEDICATIONS Generic Name Dose Route Start Last Admin Trade Name Freq PRN Reason Stop Dose Admin Acetaminophen 650 mg 07/06/25 21:02 Acetaminophen 325mg Tab PO 08/05/25 21:01 Q4HP PRN Fever or Mild Pain (1-3) Hydrocodone Bitart/Acetaminophen 1 tab 07/06/25 21:02 Hydrocodone/Apap 5/325 Mg Tablet PO 08/05/25 21:01 Q4HP PRN Mild to Moderate Pain (1-6) Enoxaparin Sodium 40 mg 07/07/25 09:00 Enoxaparin 40mg/0.4ml Syringe SUBCUT 08/06/25 08:59 DAILY [facility] Sodium Chloride 1,000 mls @ 50 mls/hr 07/06/25 21:15 Sod Chlor 0.9% 1000ml Bag IV 08/05/25 21:14 .Q20H [facility] Metronidazole 500 mg in 100 mls @ 100 mls/hr 07/06/25 21:15 Flagyl 500mg/100ml Ivpb IV 07/16/25 21:14 Q6H [facility] Levofloxacin 750 mg 07/07/25 11:00 Levofloxacin 750 Mg Tablet PO 07/17/25 10:59 1100 [facility] Miscellaneous 1 each 07/06/25 18:15 Vancomycin Consult Request NOTAPPLIC 08/05/25 18:14 CONSULT PHARMACY [facility] Morphine Sulfate 2 mg 07/06/25 21:02 Morphine 2mg/Ml Syringe IV 08/05/25 21:01 Q4HP PRN Severe Pain (7-10) Ondansetron HCl 4 mg 07/06/25 21:02 Ondansetron 4mg/2ml Vial IV 08/05/25 21:01 Q8HP PRN Nausea Sodium Chloride 8 ml 07/06/25 17:35 Sodium Chloride 0.9% 10ml Vial IV 08/05/25 17:34 NEEDED PRN dilute pepcid Sodium Chloride 10 ml 07/06/25 18:51 07/06/25 18:53 Sodium Chloride 0.9% 10ml Syr (Rad Only) IV 08/05/25 18:50 10 ml NEEDED PRN Administration Maintain IV Site Discontinued Medications Generic Name Dose Route Start Last Admin Trade Name Pieter PRN Reason Stop Dose Admin Hydrocodone Bitart/Acetaminophen 1 tab 07/06/25 19:46 07/06/25 19:54 Hydrocodone/Apap 5/325 Mg Tablet PO 07/06/25 19:47 1 tab ONCE ONE Administration Famotidine 20 mg 07/06/25 17:35 07/06/25 18:27 Famotidine 20mg/2ml Vial IV 07/06/25 17:36 20 mg ONCE ONE Administration Sodium Chloride 1,000 mls @ 999 mls/hr 07/06/25 17:35 07/06/25 18:27 Sod Chlor 0.9% 1000ml Bag IV 07/06/25 18:35 999 mls/hr .Q1H1M ONE Administration Lactated Ringer's 1,710 mls @ 855 mls/hr 07/06/25 17:59 07/06/25 18:27 Lactated Ringer's 1000 Ml Bag 30 ml/kg infuse over 2 hr (1710 ml) 07/06/25 19:58 855 mls/hr IV Administration .Q2H ONE Piperacillin Sod/Tazobactam 100 mls @ 200 mls/hr 07/06/25 18:15 07/06/25 18:27 Sod 4.5 gm/ Sodium Chloride IV 07/16/25 18:14 200 mls/hr Q8H JAMES Administration Magnesium Sulfate 2 gm in 50 mls @ 50 mls/hr 07/06/25 18:11 07/06/25 18:28 Magnesium Sulfate 2gm/50ml Premix IV 07/06/25 19:10 50 mls/hr ONCE ONE Administration Vancomycin HCl 2,500 mg/ 500 mls @ 250 mls/hr 07/06/25 18:30 07/06/25 19:30 Sodium Chloride IV 07/06/25 20:29 250 mls/hr ONCE ONE Administration Iopamidol 80 ml 07/06/25 18:51 07/06/25 18:52 Iopamidol-370 (76%);100ml Bottle IV 07/06/25 18:52 80 ml ONCE ONE Administration Ondansetron HCl 4 mg 07/06/25 17:44 07/06/25 18:27 Ondansetron 4mg/2ml Vial IV 07/06/25 17:45 4 mg ONCE ONE Administration Sodium Chloride 50 ml 07/06/25 18:51 07/06/25 18:52 0.9 % Sodium Chloride 50 Ml Vial IV 07/06/25 18:52 50 ml ONCE ONE Administration ORDERS Category Date Time Status CT abdomen pelvis w con Stat Cat Scan 07/06/25 17:58 Completed CTA Chest [CT angio chest PE protocol] Stat Cat Scan 07/06/25 17:57 Completed Chest XR -- portable [XR chest portable] Stat Exams 07/06/25 17:35 Completed Basic Metabolic Panel [facility] Lab 07/07/25 06:00 Ordered Basic Metabolic Panel [facility]AB Lab 07/08/25 06:00 Ordered Basic Metabolic Panel AMLAB Lab 07/09/25 06:00 Ordered Basic Metabolic Panel AMLAB Lab 07/10/25 06:00 Ordered Basic Metabolic Panel AMLAB Lab 07/11/25 06:00 Ordered Basic Metabolic Panel AMLAB Lab 07/12/25 06:00 Ordered Basic Metabolic Panel AMLAB Lab 07/13/25 06:00 Ordered Basic Metabolic Panel AMLAB Lab 07/14/25 06:00 Ordered Basic Metabolic Panel AMLAB Lab 07/15/25 06:00 Ordered Basic Metabolic Panel AMLAB Lab 07/16/25 06:00 Ordered CBC [Complete Blood Count Auto Diff] Stat Lab 07/06/25 17:35 Completed CRP [C-Reactive Protein] Stat Lab 07/06/25 17:35 Completed Complete Blood Count Auto Diff [facility] Lab 07/07/25 06:00 Ordered Complete Blood Count Auto Diff [facility] Lab 07/08/25 06:00 Ordered Complete Blood Count Auto Diff [facility] Lab 07/09/25 06:00 Ordered Complete Blood Count Auto Diff [facility] Lab 07/10/25 06:00 Ordered Complete Blood Count Auto Diff AMLAB Lab 07/11/25 06:00 Ordered Complete Blood Count Auto Diff AMLAB Lab 07/12/25 06:00 Ordered Complete Blood Count Auto Diff AMLAB Lab 07/13/25 06:00 Ordered Complete Blood Count Auto Diff AMLAB Lab 07/14/25 06:00 Ordered Complete Blood Count Auto Diff AMLAB Lab 07/15/25 06:00 Ordered Complete Blood Count Auto Diff AMLAB Lab 07/16/25 06:00 Ordered Comprehensive Metabolic Panel Stat Lab 07/06/25 17:35 Completed D-Dimer Stat Lab 07/06/25 17:35 Completed Erythrocyte Sedimentation Rate Stat Lab 07/06/25 17:35 Completed Lactic Acid Stat Lab 07/06/25 17:35 Completed Lipase Stat Lab 07/06/25 17:35 Completed Magnesium AMLAB Lab 07/07/25 06:00 Ordered Magnesium Stat Lab 07/06/25 17:35 Completed Procalcitonin Routine Lab 07/07/25 06:00 Ordered Rapid PCR Covid and Flu A/B Stat Lab 07/06/25 17:44 Completed Trop I [Troponin I] Stat Lab 07/06/25 17:35 Completed Troponin I Q3H Lab 07/06/25 21:00 Completed Troponin I Q3H Lab 07/06/25 23:45 Ordered UA [Urinalysis and Microscopic] Stat Lab 07/06/25 20:06 Completed Blood Culture Stat Micro 07/06/25 17:58 Received Stool Culture Stat Micro 07/06/25 21:02 Ordered Urine Culture Stat Micro 07/06/25 20:06 Received VBG [Venous Blood Gas] Stat RT 07/06/25 17:35 Completed Medical Decision Narrative: patient is a 65-year-old female presenting to the emergency department for evaluation of weakness, nausea and vomiting. Patient is hemodynamically stable and nontoxic-appearing upon arrival, afebrile. Differential diagnosis includes viral illness, sepsis, among others.. Workup will be conducted with hematologic labs, specific imaging. Initial inventions include crystalloid bolus, analgesics. Initial workup reviewed by me [hematologic labs are remarkable for white count of 22.6, lactic acid of 3.8. I placed orders for Zosyn and vanc. I went ahead and placed the sepsis bolus. Dr. Haywood and I discussed and I went ahead and placed orders for CTA and CT abdomen and pelvis. CT scan of abdomen showed colitis. Her urine showed UTI. Patient been given sepsis bolus as well as Vanco and Zosyn. Patient has been stable throughout ER stay. Blood pressures have been anywhere from 95-1 20s systolic. I had a discussion with Glynn the hospitalist who accepted patient to [facility]. Patient is safe for transfer to [facility]. <Mohsen Haywood MD - Last Filed: 07/06/25 18:30> Vital Signs: 07/06/25 17:39 07/06/25 17:44 07/06/25 18:00 Temperature 98.1 F Temperature Source Oral Pulse Rate 88 Pulse Rate [Left Brachial] 79 Respiratory Rate 18 14 18 Blood Pressure 105/63 L 95/63 L Blood Pressure [Left Arm] 105/63 L Blood Pressure Mean Blood Pressure Mean [Left Arm] 77 Blood Pressure Source [Left Arm] Automatic Cuff Blood Pressure Position [Left Arm] Left Lateral 02 Sat by Pulse Oximetry 96 95 Oxygen Delivery Method Room Air 07/06/25 19:18 07/06/25 19:31 07/06/25 20:01 Temperature Temperature Source Pulse Rate 79 78 77 Pulse Rate [Left Brachial] Respiratory Rate 21 19 17 Blood Pressure 111/60 106/72 L 127/75 Blood Pressure [Left Arm] Blood Pressure Mean 77 80 92 Blood Pressure Mean [Left Arm] Blood Pressure Source [Left Arm] Blood Pressure Position [Left Arm] 02 Sat by Pulse Oximetry 97 95 98 Oxygen Delivery Method 07/06/25 20:31 Temperature Temperature Source Pulse Rate 75 Pulse Rate [Left Brachial] Respiratory Rate 16 Blood Pressure 121/71 Blood Pressure [Left Arm] Blood Pressure Mean 97 Blood Pressure Mean [Left Arm] Blood Pressure Source [Left Arm] Blood Pressure Position [Left Arm] 02 Sat by Pulse Oximetry 97 Oxygen Delivery Method Lab Data Lab Results 07/06/25 17:35: WBC 22.6 H*, RBC 4.29, Hgb 12.7, Hct 39.2, MCV 91.4, MCH 29.6, MCHC 32.4, RDW 17.6 H, Plt Count 529 H, MPV 10.0, Neut % (Auto) 82.1 H, Lymph % (Auto) 6.6 L, Clark % (Auto) 9.9 H, Eos % (Auto) 0.1, Baso % (Auto) 0.5, Neut # (Auto) 18.6 H, Lymph # (Auto) 1.5, Clark # (Auto) 2.2 H, Eos # (Auto) 0.0, Baso # (Auto) 0.1, Total Counted 100, Neutrophils % (Manual) 81 H, Lymphocytes % (Manual) 14, Monocytes % (Manual) 5, Platelet Estimate Marked increase, RBC Morphology Normal, ESR 25, D-Dimer 1.61 H, VBG pH 7.32, VBG pCO2 44.3, VBG pO2 36.0, VBG HCO3 22.3 L, VBG Total CO2 23.7, VBG O2 Saturation 61.0, VBG Base Excess -3.8 L, VBG Lactic Acid 3.8 H, Sodium 133 L, Potassium 3.9, Chloride 98, Carbon Dioxide 24, Anion Gap 14.9, BUN 19 H, Creatinine 1.70 H, Estimated Creat Clear 57, Estimated GFR 30 L, Est GFR ( Amer) 36 L, Glucose 120 H, L actate 2.8 H, Calcium 8.5, Magnesium 1.1 L, Total Bilirubin 1.0, AST 37 H, ALT 16, Alkaline Phosphatase 131 H, Troponin I 0.01, C-Reactive Protein 39.0 H, Total Protein 8.0, Albumin 4.3, Globulin 3.7 H, Albumin/Globulin Ratio 1.2, Lipase 92 07/06/25 17:44: SARS-CoV-2 (PCR) Not detected, Influenza A Untype (PCR) Not detected, Influenza Type B (PCR) Not detected 07/06/25 20:06: Urine Color Yellow, Urine Appearance Clear, Urine pH 6.0, Ur Specific Morton 1.010, Urine Protein Negative, Urine Glucose (UA) Negative, Urine Ketones Negative, Urine Blood Trace-i, Urine Nitrate Negative, Urine Bilirubin Negative, Urine Urobilinogen 0.2, Ur Leukocyte Esterase 2+ A, Urine RBC 5-10, Urine WBC 20-50, Ur Squamous Epith Cells 5-10, Urine Bacteria 1+ 07/06/25 21:00: Troponin I < 0.01 Orders (Tests/Meds): ED MEDICATIONS Generic Name Dose Route Start Last Admin Trade Name Pieter PRN Reason Stop Dose Admin Acetaminophen 650 mg 07/06/25 21:02 Acetaminophen 325mg Tab PO 08/05/25 21:01 Q4HP PRN Fever or Mild Pain (1-3) Hydrocodone Bitart/Acetaminophen 1 tab 07/06/25 21:02 Hydrocodone/Apap 5/325 Mg Tablet PO 08/05/25 21:01 Q4HP PRN Mild to Moderate Pain (1-6) Enoxaparin Sodium 40 mg 07/07/25 09:00 Enoxaparin 40mg/0.4ml Syringe SUBCUT 08/06/25 08:59 DAILY [facility] Sodium Chloride 1,000 mls @ 50 mls/hr 07/06/25 21:15 Sod Chlor 0.9% 1000ml Bag IV 08/05/25 21:14 .Q20H [facility] Metronidazole 500 mg in 100 mls @ 100 mls/hr 07/06/25 21:15 Flagyl 500mg/100ml Ivpb IV 07/16/25 21:14 Q6H [facility] Levofloxacin 750 mg 07/07/25 11:00 Levofloxacin 750 Mg Tablet PO 07/17/25 10:59 1100 [facility] Miscellaneous 1 each 07/06/25 18:15 Vancomycin Consult Request NOTAPPLIC 08/05/25 18:14 CONSULT PHARMACY [facility] Morphine Sulfate 2 mg 07/06/25 21:02 Morphine 2mg/Ml Syringe IV 08/05/25 21:01 Q4HP PRN Severe Pain (7-10) Ondansetron HCl 4 mg 07/06/25 21:02 Ondansetron 4mg/2ml Vial IV 08/05/25 21:01 Q8HP PRN Nausea Sodium Chloride 8 ml 07/06/25 17:35 Sodium Chloride 0.9% 10ml Vial IV 08/05/25 17:34 NEEDED PRN dilute pepcid Sodium Chloride 10 ml 07/06/25 18:51 07/06/25 18:53 Sodium Chloride 0.9% 10ml Syr (Rad Only) IV 08/05/25 18:50 10 ml NEEDED PRN Administration Maintain IV Site Discontinued Medications Generic Name Dose Route Start Last Admin Trade Name Freq PRN Reason Stop Dose Admin Hydrocodone Bitart/Acetaminophen 1 tab 07/06/25 19:46 07/06/25 19:54 Hydrocodone/Apap 5/325 Mg Tablet PO 07/06/25 19:47 1 tab ONCE ONE Administration Famotidine 20 mg 07/06/25 17:35 07/06/25 18:27 Famotidine 20mg/2ml Vial IV 07/06/25 17:36 20 mg ONCE ONE Administration Sodium Chloride 1,000 mls @ 999 mls/hr 07/06/25 17:35 07/06/25 18:27 Sod Chlor 0.9% 1000ml Bag IV 07/06/25 18:35 999 mls/hr .Q1H1M ONE Administration Lactated Ringer's 1,710 mls @ 855 mls/hr 07/06/25 17:59 07/06/25 18:27 Lactated Ringer's 1000 Ml Bag 30 ml/kg infuse over 2 hr (1710 ml) 07/06/25 19:58 855 mls/hr IV Administration .Q2H ONE Piperacillin Sod/Tazobactam 100 mls @ 200 mls/hr 07/06/25 18:15 07/06/25 18:27 Sod 4.5 gm/ Sodium Chloride IV 07/16/25 18:14 200 mls/hr Q8H JAMES Administration Magnesium Sulfate 2 gm in 50 mls @ 50 mls/hr 07/06/25 18:11 07/06/25 18:28 Magnesium Sulfate 2gm/50ml Premix IV 07/06/25 19:10 50 mls/hr ONCE ONE Administration Vancomycin HCl 2,500 mg/ 500 mls @ 250 mls/hr 07/06/25 18:30 07/06/25 19:30 Sodium Chloride IV 07/06/25 20:29 250 mls/hr ONCE ONE Administration Iopamidol 80 ml 07/06/25 18:51 07/06/25 18:52 Iopamidol-370 (76%);100ml Bottle IV 07/06/25 18:52 80 ml ONCE ONE Administration Ondansetron HCl 4 mg 07/06/25 17:44 07/06/25 18:27 Ondansetron 4mg/2ml Vial IV 07/06/25 17:45 4 mg ONCE ONE Administration Sodium Chloride 50 ml 07/06/25 18:51 07/06/25 18:52 0.9 % Sodium Chloride 50 Ml Vial IV 07/06/25 18:52 50 ml ONCE ONE Administration ORDERS Category Date Time Status CT abdomen pelvis w con Stat Cat Scan 07/06/25 17:58 Completed CTA Chest [CT angio chest PE protocol] Stat Cat Scan 07/06/25 17:57 Completed Chest XR -- portable [XR chest portable] Stat Exams 07/06/25 17:35 Completed Basic Metabolic Panel [facility] Lab 07/07/25 06:00 Ordered Basic Metabolic Panel [facility] Lab 07/08/25 06:00 Ordered Basic Metabolic Panel [facility] Lab 07/09/25 06:00 Ordered Basic Metabolic Panel AMLAB Lab 07/10/25 06:00 Ordered Basic Metabolic Panel AMLAB Lab 07/11/25 06:00 Ordered Basic Metabolic Panel AMLAB Lab 07/12/25 06:00 Ordered Basic Metabolic Panel AMLAB Lab 07/13/25 06:00 Ordered Basic Metabolic Panel AML[facility] Lab 07/14/25 06:00 Ordered Basic Metabolic Panel AMLAB Lab 07/15/25 06:00 Ordered Basic Metabolic Panel [facility] Lab 07/16/25 06:00 Ordered CBC [Complete Blood Count Auto Diff] Stat Lab 07/06/25 17:35 Completed CRP [C-Reactive Protein] Stat Lab 07/06/25 17:35 Completed Complete Blood Count Auto Diff [facility] Lab 07/07/25 06:00 Ordered Complete Blood Count Auto Diff [facility] Lab 07/08/25 06:00 Ordered Complete Blood Count Auto Diff [facility] Lab 07/09/25 06:00 Ordered Complete Blood Count Auto Diff [facility] Lab 07/10/25 06:00 Ordered Complete Blood Count Auto Diff AMLAB Lab 07/11/25 06:00 Ordered Complete Blood Count Auto Diff AMLAB Lab 07/12/25 06:00 Ordered Complete Blood Count Auto Diff AMLAB Lab 07/13/25 06:00 Ordered Complete Blood Count Auto Diff [facility]AB Lab 07/14/25 06:00 Ordered Complete Blood Count Auto Diff [facility] Lab 07/15/25 06:00 Ordered Complete Blood Count Auto Diff [facility] Lab 07/16/25 06:00 Ordered Comprehensive Metabolic Panel Stat Lab 07/06/25 17:35 Completed D-Dimer Stat Lab 07/06/25 17:35 Completed Erythrocyte Sedimentation Rate Stat Lab 07/06/25 17:35 Completed Lactic Acid Stat Lab 07/06/25 17:35 Completed Lipase Stat Lab 07/06/25 17:35 Completed Magnesium [facility] Lab 07/07/25 06:00 Ordered Magnesium Stat Lab 07/06/25 17:35 Completed Procalcitonin Routine Lab 07/07/25 06:00 Ordered Rapid PCR Covid and Flu A/B Stat Lab 07/06/25 17:44 Completed Trop I [Troponin I] Stat Lab 07/06/25 17:35 Completed Troponin I Q3H Lab 07/06/25 21:00 Completed Troponin I Q3H Lab 07/06/25 23:45 Ordered UA [Urinalysis and Microscopic] Stat Lab 07/06/25 20:06 Completed Blood Culture Stat Micro 07/06/25 17:58 Received Stool Culture Stat Micro 07/06/25 21:02 Ordered Urine Culture Stat Micro 07/06/25 20:06 Received VBG [Venous Blood Gas] Stat RT 07/06/25 17:35 Completed Procedures <Mohsen Haywood MD - Last Filed: 07/06/25 18:30> Limited Ultrasound Interpretation:: Ultrasound-guided peripheral line placement Indication: - Lack of peripheral access, multiple attempts Identified structures: - Vein and left AC Location/access site: - Left AC Vessel patency: - Patent with good compressibility Direct visualization? - Yes Impression: Successfully placed left AC 18-gauge IV catheter Images [were saved/were not saved were not to permanent archive The study was technically adequate Critical Care <Marsha HERNANDEZ), SISSY - Last Filed: 07/06/25 22:43> Critical Care Time Critical Care Time: No
--- NOTE | 2025-07-06 17:48 | PC.NURSE ---
respiratory called to run VBG tubed
[2025-07-06 17:51] LABS: Coronavirus 19, PCR Not Detected (NotDetected); Influenza A, PCR Not Detected (NotDetected); Influenza B, PCR Not Detected (NotDetected)
[2025-07-06 17:52] LABS: Hematocrit 39.2 % (37.0-47.0); Hemoglobin 12.7 g/dL (12.2-16.2); Immature Granulocytes % 0.8 %; Mean Corpuscular HGB Conc 32.4 g/dL (31.8-35.4); Mean Corpuscular Hemoglobin 29.6 pg (27.0-31.2); Mean Corpuscular Volume 91.4 fl (81-99); Nucleated Red Blood Cells % 0.3 %; Platelet Count 529 K/mm3 (142-424); Red Blood Count 4.29 M/mm3 (4.20-5.40); Red Cell Distribution Width-SD 57.6 fL; White Blood Count 22.6 K/mm3 (4.8-10.8)
--- NOTE | 2025-07-06 17:53 | PC.NURSE ---
lab called by imldred acosta RN to assist in obtaining blood cultures due to patient being a difficult stick.
[2025-07-06 17:54] LABS: Lactate Venous 3.8 mmol/L (0.4-2.0); VBG HCO3 22.3 mmol/L (23-30); VBG PCO2 44.3 mmol/L (35-51); VBG PH 7.32 mmol/L (7.31-7.41); VBG PO2 36.0 mmol/L (28-40)
--- NOTE | 2025-07-06 17:57 | CT_ITS ---
PROCEDURE INFORMATION: Exam: CTA Chest Without And With Contrast Exam date and time: 07/06/2025 6:52 PM Age: 65 years old Clinical indication: Other: Copd/likely sepsis TECHNIQUE: Imaging protocol: Computed tomographic angiography of the chest without and with contrast. Exam focused on the arteries. 3D rendering (Not supervised by radiologist): MIP and/or 3D reconstructed images were created by the technologist. Radiation optimization: All CT scans at this facility use at least one of these dose optimization techniques: automated exposure control; mA and/or kV adjustment per patient size (includes targeted exams where dose is matched to clinical indication); or iterative reconstruction. Contrast material: ISOVUE; Contrast volume: 75 ml; Contrast route: INTRAVENOUS (IV); COMPARISON: CT ANGIO CHEST PE PROTOCOL 05/25/2025 1:15 PM FINDINGS: Pulmonary arteries: No CT angiography evidence of pulmonary embolism. Aorta: Unremarkable. No aortic aneurysm. No aortic dissection. Lungs: Dependent bilateral lung base opacities favor atelectasis. No consolidations. Pleural spaces: Unremarkable. No pneumothorax. No pleural effusion. Heart: Unremarkable. No cardiomegaly. No pericardial effusion. Lymph nodes: Unremarkable. No enlarged lymph nodes. Gallbladder and biliary ducts: There are surgical clips within the gallbladder fossa. Spleen: Multiple benign-appearing calcific densities of the spleen. Bones/joints: Unremarkable. No acute fracture. Soft tissues: Unremarkable. IMPRESSION: No CT angiography evidence of pulmonary embolism.
--- NOTE | 2025-07-06 17:57 | PC.NURSE ---
one set of blood cultures obtained via IV. provider aware and approved.
--- NOTE | 2025-07-06 17:58 | CT_ITS ---
PROCEDURE INFORMATION: Exam: CT Abdomen And Pelvis With Contrast Exam date and time: 07/06/2025 6:52 PM Age: 65 years old Clinical indication: Other: Nausea/vomiting/pain TECHNIQUE: Imaging protocol: Computed tomography of the abdomen and pelvis with contrast. 3D rendering (Not supervised by radiologist): MIP and/or 3D reconstructed images were created by the technologist. Radiation optimization: All CT scans at this facility use at least one of these dose optimization techniques: automated exposure control; mA and/or kV adjustment per patient size (includes targeted exams where dose is matched to clinical indication); or iterative reconstruction. Contrast material: ISOVUE; Contrast volume: 75 ml; Contrast route: IV; COMPARISON: CT ABDOMEN PELVIS W CON 06/18/2025 12:37 AM FINDINGS: Lungs: Dependent bilateral lung base opacities favor atelectasis. Liver: There is diffuse hypoattenuation of the liver compatible with mild hepatic steatosis. Gallbladder and biliary ducts: There are surgical clips within the gallbladder fossa. Pancreas: Normal. No ductal dilation. Spleen: Multiple benign-appearing calcific densities of the spleen. Adrenal glands: Normal. No mass. Kidneys and ureters: Normal. No hydronephrosis. Stomach and bowel: Mild thickening and inflammatory changes of the descending colon which can be seen with infectious or inflammatory colitis. Appendix: No evidence of appendicitis. Intraperitoneal space: Unremarkable. No free air. No significant fluid collection. Vasculature: Moderate calcific atherosclerotic disease of the abdominal aorta without aneurysmal dilatation is present. Lymph nodes: Unremarkable. No enlarged lymph nodes. Urinary bladder: Unremarkable as visualized. Reproductive: The uterus appears surgically absent. Bones/joints: Moderate loss of intervertebral disc space with degenerative changes involving L1 through L5. Soft tissues: Normal. IMPRESSION: Mild thickening and inflammatory changes of the descending colon which can be seen with infectious or inflammatory colitis.
[2025-07-06 18:05] LABS: Alanine Aminotransferase 16 U/L (12-78); Albumin Level 4.3 g/dl (3.5-5.0); Albumin/Globulin Ratio 1.2 (1.1-1.8); Alkaline Phosphatase 131 U/L (38-126); Anion Gap 14.9 mEq/L (5-15); Aspartate Amino Transferase 37 U/L (14-36); Bilirubin,Total 1.0 mg/dl (0.2-1.3); Blood Urea Nitrogen 19 mg/dl (7-17); Calcium 8.5 mg/dl (8.4-10.2); Carbon Dioxide 24 mmol/L (22.0-30.0); Chloride 98 mmol/L (98-107); Creatinine Clearance Estimated 57 mL/min (50-200); Creatinine,Serum 1.70 mg/dl (0.52-1.04); Estimated Glomerular Filt Rate 30 ml/min (>60); GFR (African American) 36 ML/MIN (>60); Globulin 3.7 g/dL (1.3-3.2); Glucose 120 mg/dl (74-100); Lipase 92 U/L (23-300); Magnesium 1.1 mg/dl (1.6-2.3); Potassium 3.9 mmoL/L (3.5-5.1); Sodium 133 mmol/L (136-145); Total Protein,Serum 8.0 g/dl (6.3-8.2)
[2025-07-06 18:10] LABS: C-Reactive Protein 39.0 mg/L (0-4)
[2025-07-06 18:11] LABS: D-Dimer 1.61 ug/mL (0.0-0.5)
--- NOTE | 2025-07-06 18:24 | PC.NURSE ---
at bedside for ultrasound guided IV
[2025-07-06] MEDS: ONDANSETRON 4MG/2ML VIAL 4 MG IV (18:27)
[2025-07-06] MEDS: FAMOTIDINE 20MG/2ML VIAL 20 MG IV (18:27)
[2025-07-06] MEDS: 0.9 % SODIUM CHLORIDE 1000ML 1,000 ML 999 ML IV (18:27)
[2025-07-06] MEDS: LACTATED RINGERS 1000ML 1,710 ML 855 ML IV (18:27)
[2025-07-06] MEDS: PIPERACILLIN/TAZO 4.5 GM in 0.9 % SODIUM CHLORIDE 100 ML IV (18:27)
[2025-07-06 18:28] LABS: Troponin I 0.01 ng/ml (0.00-0.034)
[2025-07-06] MEDS: MAGNESIUM SULFATE IN WATER 2 GM/50 ML PIGGYBACK IV (18:28)
[2025-07-06] MEDS: IOPAMIDOL-370 (76%);100ML BOTTLE 80 ML IV (18:52)
[2025-07-06] MEDS: 0.9 % SODIUM CHLORIDE 50 ML VIAL IV (18:52)
[2025-07-06] MEDS: SODIUM CHLORIDE 0.9% 10ML SYR (RAD ONLY) 10 ML IV (18:53)
[2025-07-06] MEDS: VANCOMYCIN HCL 2,500 MG in 0.9 % SODIUM CHLORIDE 500 ML 250 MG IV (19:30)
[2025-07-06 19:49] LABS: Total Cells Counted 100
[2025-07-06] MEDS: HYDROCODONE/APAP 5/325 MG TABLET 1 TAB PO (19:54)
[2025-07-06 19:55] LABS: RBC Morphology Normal
[2025-07-06 20:15] LABS: Microscopic, Urine URINE MICROSCOPIC (MICROSCOPIC)
[2025-07-06 20:21] LABS: Bilirubin,Urine Negative (Negative); Color,Urine YELLOW (Yellow); Glucose,Urine (UA) Negative (Negative); Ketones,Urine Negative (Negative); Leukocyte Esterase,Urine 2+ (Negative); PH,Urine 6.0 (5.0-8.5); Protein,Urine Negative (Negative); Specific Gravity, Urine 1.010 (1.005-1.030); Urobilinogen,Urine 0.2 EU/dl (0.2)
[2025-07-06 20:35] LABS: Bacteria,Urine 1+ /lpf; WBC,Urine 20-50 #/hpf (0-3)
--- NOTE | 2025-07-06 21:09 | P.HP_ITS ---
<Statement entered by Colten Benitez MD - 07/12/25 11:45> Personally evaluated patient and agree with the plan of care as outlined by the [facility] HEALTH [facility]IN[facility]IA[facility]. History of Present Illness *Admission Date: 07/06/25 *Reason for visit:: Weakness *History of present illness: This is a 65-year-old female who has a past medical history significant for diverticulitis, COPD, osteoarthritis, coronary artery disease, migraine headaches, lumbar radiculopathy, anxiety, obesity, sleep apnea, hyperlipidemia, and hypertension who presents with a chief complaint of weakness, nausea, and vomiting. Due to patient's symptoms, patient presented to the emergency room for evaluation. While in the emergency room, presenting white blood cell count was 22,[address] scan of the abdomen pelvis was consistent with colitis. Due to these findings, hospital medicine was contacted for further management. During my evaluation of the patient, patient states she has been having a functional decline for over the past week. She reports having weakness to the extent she has to use a wheelchair for ambulation. She is reporting diffuse abdominal pain coupled with nausea and nonbilious emesis. It is worth mentioning that patient recently was life flighted to the [facility] due to severe sepsis with suspected diverticulitis. Patient does endorse having some chills but no fever; moreover, patient is denying any headache, blurred vision, upper or lower extremity drift unilaterally, loss of bowel or bladder, chest pain, shortness of breath, dyspnea, or blurred vision. Patient does endorse having 2 episodes of loose stool over the course of the past 24 hours. Additional pertinent labs obtained including white blood cell count of 22.6, platelet count of 529, neutrophils 81%, D-dimer was 1.61, venous lactic acid of 3.8, sodium of 133, BUN of 19, creatinine 1.70, GFR of 30, blood glucose 420, magnesium 1.1, and urinalysis revealed 2+ leukocyte esterase. [facility] Disclaimer: The information contained in this section may have been updated after the patient was seen, as this information can be updated by other users. Medical History Anxiety and depression Arthritis Urinary tract infection History of COVID-19 Migraine History of stroke History of gastroesophageal reflux (GERD) History of anemia Insomnia COPD mixed type Oral dyskinesia Most likely secondary to prochlorperazine already discontinued by PCP Lung nodule Dyspnea on exertion Encounter for screening for malignant neoplasm of lung History of asthma Stopped smoking with greater than 30 pack year history Edema of both lower extremities Takotsubo cardiomyopathy Mediastinal lymphadenopathy Hilar lymphadenopathy Asthma exacerbation APARNA (obstructive sleep apnea) Noncompliant with CPAP treatment. Brain TIA Asthma Hyperglycemia A1c hemoglobin pending, follow-up with PCP for results. Tremor 09/08/2024: Initial good response to topiramate but worsening of tremor since last visit. Indications, possible side effects were reviewed once again with the patient and her including but not limited to nephrolithiasis, paresthesias, word finding difficulty, neuro glaucoma). APARNA (obstructive sleep apnea) Osteoarthritis She was wheelchair-bound at last appointment and currently ambulatory with a walker Hypertensive disorder Hyperlipidemia Gastroesophageal reflux disease Surgical History H/O elbow surgery LEFT History of carpal tunnel surgery of right wrist History of carpal tunnel surgery of left wrist H/O: History of arthroplasty of left shoulder H/O: hysterectomy History of cholecystectomy Family History Other Cancer 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 (Updated 07/06/25 @ 21:58 by Maribel Baldwni RN) Smoking Status: Never smoker second hand exposure: Yes alcohol intake: former substance use type: denies use current occupational status: disabled Travel in the last 8 weeks?: None household members: spouse housing: other marital status: current occupational exposures/hazards: No caffeine: Yes Have you lived/traveled outside [place] in past 30 days?: No Contact w/someone who lives/traveled outside US past 30 days?: No Exposure to someone with infectious disease in past 14 days?: No Do you have a fever (greater than 100.4 F or 38 C)?: No Have you tested positive for COVID-19?: No Exposed to someone with COVID-19 in past 14 days?: No Do you have a sore throat?: No Do you have a cough?: No Do you have any weakness?: No Do you have any diarrhea?: No Are you experiencing any unusual bleeding?: No Do you have any muscle aches/pain?: No Do you have any abdominal pain?: No Are you experiencing loss of taste or smell?: No Other Medical History Have you received the Flu Vaccine for this season: No Have you received the Pneumonia Vaccine: No Review of Systems Review of Systems Review of systems:: pertinent systems reviewed and negative unless documented below Constitutional Constitutional: Reports chills, Reports fatigue, Reports lethargy and Reports weakness Eyes Eyes: Reports system reviewed and no additional complaints, except as documented ENT Ears, Nose, Mouth, and Throat: Reports system reviewed and no additional complaints, except as documented *Cardiovascular Cardiovascular: Reports system reviewed and no additional complaints, except as documented *Respiratory Respiratory: Reports system reviewed and no additional complaints, except as documented *Gastrointestinal Gastrointestinal: Reports abdominal pain, Reports change in bowel habits, Reports diarrhea, Reports nausea and Reports vomiting *Genitourinary Genitourinary: Reports difficulty voiding *Musculoskeletal Musculoskeletal: Reports system reviewed and no additional complaints, except as documented Integumentary/Breasts Skin/Breast: Reports system reviewed and no additional complaints, except as documented *Neurologic Neurologic: Reports weakness Psychiatric Psychiatric: Reports system reviewed and no additional complaints, except as documented Endocrine Endocrine: Reports fatigue Hematologic/Lymphatic Hematologic/Lymphatic: Reports system reviewed and no additional complaints, except as documented Allergic/Immunologic Allergic/Immunologic: Reports system reviewed and no additional complaints, except as documented Meds Home Medications and Allergies Home Medications ?Medication ?Instructions ?Recorded ?Confirmed ?Type atorvastatin 40 mg tablet 40 mg PO HS 11/22/24 5 History cholecalciferol (vitamin D3) 50 50 mcg PO DAILY 07/06/25 History mcg (2,000 unit) capsule duloxetine 60 mg capsule,delayed 60 mg PO DAILY 07/06/25 History release famotidine 20 mg tablet 20 mg PO DAILY 11/22/2406/24 History gabapentin 100 mg capsule 100 mg PO TID 11/22/2407/06 History hydroxyzine HCl 25 mg tablet 25 mg PO BID 11/22/24 History aspirin 81 mg capsule 81 mg PO DAILY 12/29/2406/24 History omeprazole 20 mg capsule,delayed 20 mg PO DAILY 07/06/25 History release carvedilol 3.125 mg tablet 3.125 mg PO BID 30 days #60 tabs 06/20/25 07/06/25 Rx fluticasone fur. 100 mcg-umeclid 1 ea inhalation DAILY 07/06/25 07/06/25 History 62.5 mcg-vilant 25 mcg inhalat.powder (Trelegy Ellipta) linaclotide 72 mcg capsule 72 mcg PO DAILY 07/06/25 History (Linzess) nitrofurantoin 100 mg PO BID 07/06/2507/06 History monohydrate/macrocrystals 100 mg capsule sacubitril 24 mg-valsartan 26 mg 1 tab PO BID 07/06/25 07/06/25 History tablet (Entresto) topiramate 100 mg tablet 100 mg PO DAILY 07/06/25 History topiramate 100 mg tablet 150 mg PO HS 07/06/25 History New Prescriptions to Start Prescriptions: Allergies Allergy/AdvReac Type Severity Reaction Status Date / Time sumatriptan Allergy Severe Difficulty Verified 05/05/25 13:42 Breathing fexofenadine (FEXOFENADINE) Allergy Intermediate SICK Verified 05/05/25 13:42 amoxicillin (From AUGMENTIN) Allergy Unknown SOA Verified 05/05/25 13:42 clavulanic acid (From Allergy Unknown SOA Verified 05/05/25 13:42 AUGMENTIN) naproxen (NAPROXEN) Allergy Unknown SWELLING Verified 05/05/25 13:42 Exam Data for Last 24 hours Vital signs and Labs for Last 24 Hours: Temp Pulse Resp BP Pulse Ox O2 Del Method 98.1 F 75 16 121/71 97 Room Air 07/06/25 17:39 07/06/25 20:31 07/06/25 20:31 07/06/25 20:31 07/06/25 20:31 07/06/25 17:39 Laboratory Results - last 24 hr 07/06/25 17:35: WBC 22.6 H*, RBC 4.29, Hgb 12.7, Hct 39.2, MCV 91.4, MCH 29.6, MCHC 32.4, RDW 17.6 H, Plt Count 529 H, MPV 10.0, Neut % (Auto) 82.1 H, Lymph % (Auto) 6.6 L, Miner % (Auto) 9.9 H, Eos % (Auto) 0.1, Baso % (Auto) 0.5, Neut # (Auto) 18.6 H, Lymph # (Auto) 1.5, Miner # (Auto) 2.2 H, Eos # (Auto) 0.0, Baso # (Auto) 0.1, Total Counted 100, Neutrophils % (Manual) 81 H, Lymphocytes % (Manual) 14, Monocytes % (Manual) 5, Platelet Estimate Marked increase, RBC Morphology Normal, ESR 25, D-Dimer 1.61 H, VBG pH 7.32, VBG pCO2 44.3, VBG pO2 36.0, VBG HCO3 22.3 L, VBG Total CO2 23.7, VBG O2 Saturation 61.0, VBG Base Excess -3.8 L, VBG Lactic Acid 3.8 H, Sodium 133 L, Potassium 3.9, Chloride 98, Carbon Dioxide 24, Anion Gap 14.9, BUN 19 H, Creatinine 1.70 H, Estimated Creat Clear 57, Estimated GFR 30 L, Est GFR ( Amer) 36 L, Glucose 120 H, Lactate 2.8 H, Calcium 8.5, Magnesium 1.1 L, Total Bilirubin 1.0, AST 37 H, ALT 16, Alkaline Phosphatase 131 H, Troponin I 0.01, C-Reactive Protein 39.0 H, Total Protein 8.0, Albumin 4.3, Globulin 3.7 H, Albumin/Globulin Ratio 1.2, Lipase 92 07/06/25 17:44: SARS-CoV-2 (PCR) Not detected, Influenza A Untype (PCR) Not detected, Influenza Type B (PCR) Not detected 07/06/25 20:06: Urine Color Yellow, Urine Appearance Clear, Urine pH 6.0, Ur Specific [place] 1.010, Urine Protein Negative, Urine Glucose (UA) Negative, Urine Ketones Negative, Urine Blood Trace-i, Urine Nitrate Negative, Urine Bilirubin Negative, Urine Urobilinogen 0.2, Ur Leukocyte Esterase 2+ A, Urine RBC 5-10, Urine WBC 20-50, Ur Squamous Epith Cells 5-10, Urine Bacteria 1+ I & O for Last 24 hours: Intake & Output 07/03/25 07/04/25 07/05/25 07/06/25 23:59 23:59 23:59 23:59 Weight 111.13 kg Constitutional Constitutional: no acute distress, obese and cooperative *Routine HEENT Exam Head: Present normocephalic and atraumatic Eye: Present EOMI and PERRL ENT: Present mucous membranes moist *Routine Neck Exam Neck: Present supple, full ROM and trachea midline *Routine Respiratory Exam Respiratory: Present CTA bilaterally, distant breath sounds, normal respiratory effort, able to speak in complete sentences and symmetric chest movement *Routine Cardiovascular Exam Cardiovascular: Present RRR, Normal S1 and Normal S2 *Routine Abdominal Exam Abdominal: Present soft, obese and other Comments: Hyperactive bowel sounds *Routine Rectal Exam Rectal:: deferred *Routine Genitalia Exam Genitalia:: deferred *Routine Extremities Exam Extremities: Present full ROM, pulses intact and normal capillary refill Routine Back/Spine/Pelvis Exam Back/Spine: Present full ROM *Routine Skin Exam Skin: Present intact, dry and warm *Routine Neurological Exam Neurological: Present alert, oriented X3, CN II-XII intact, moving all extremities and normal speech Routine Psychiatric Exam Psychiatric: Present normal affect, normal thought process, good insight and good judgment H&P: Result Impressions 65-year-old female who presents with a chief complaint of weakness, nonbilious emesis, nausea and physical decline for the past week or so who with significant elevation of white blood cell count and CT scan findings of the abdomen pelvis consistent with colitis. Patient is currently meeting SIRS criteria. Assessment and Plan *Assessment and plan (1) Colitis: Status: Acute Category: Medical Code(s): K52.9 - Noninfective gastroenteritis and colitis, unspecified (2) Abdominal pain: Status: Acute Qualifiers: Abdominal location: upper abdomen, unspecified Qualified Code(s): R10.10 - Upper abdominal pain, unspecified Category: Medical Code(s): R10.9 - Unspecified abdominal pain (3) Acute kidney injury superimposed on chronic kidney disease: Status: Acute Category: Medical Code(s): N17.9 - Acute kidney failure, unspecified; N18.9 - Chronic kidney disease, unspecified (4) Thrombocytosis: Status: Acute Category: Medical Code(s): D75.839 - Thrombocytosis, unspecified (5) Dehydration: Status: Acute Category: Medical Code(s): E86.0 - Dehydration (6) Elevated d-dimer: Status: Acute Category: Medical Code(s): R79.89 - Other specified abnormal findings of blood chemistry (7) Lactic acidosis: Status: Acute Category: Medical Code(s): E87.20 - Acidosis, unspecified (8) Hypomagnesemia: Status: Acute Category: Medical Code(s): E83.42 - Hypomagnesemia (9) Elevated C-reactive protein (CRP): Status: Acute Category: Medical Code(s): R79.82 - Elevated C-reactive protein (CRP) (10) Leukocytosis: Status: Acute Qualifiers: Leukocytosis type: unspecified Qualified Code(s): D72.829 - Elevated white blood cell count, unspecified Category: Medical Code(s): D72.829 - Elevated white blood cell count, unspecified Plan Assessment: Colitis Abdominal pain Elevated CRP Leukocytosis with left shift -Patient has a allergy to amoxicillin will change Zosyn to 750 mg of levofloxacin p.o. twice daily and 500 mg of Flagyl IV every 6 - Will continue to trend patient's white blood cell count -Obtain procalcitonin -Blood cultures x 2 -Patient is currently meeting SIRS criteria and borderline septic - Will monitor patient fairly closely due to recent history of septicemia -Will obtain stool culture -Patient reports recent colonoscopy in the past 5 years; unfortunately, I was unable to find the results of this endoscopy in our EMR Acute on chronic renal impairment Dehydration Lactic acidosis - Most likely in the setting of acute infection - Will monitor patient's creatinine daily - If creatinine does not improve with gentle IV hydration, will obtain urine studies and renal ultrasound -Will avoid nephrotoxic drugs - Will minimize hypotension -Repeat venous lactic acid Elevated D-dimer -Most likely in setting of acute infection -CTA of the chest was negative for any pulmonary embolism Hypomagnesia -Give 2 g of mag IV x1 - Recheck magnesium in a.m. Thrombocytosis - Most likely in the setting of dehydration - Will monitor daily - Will consider anemia profile if no improvement - Will continue with gentle IV hydration and monitor for improvement Weakness Physical decline - Physical therapy - Occupational Therapy Plan: Admit patient to the MedSur unit on telemetry Up to chair twice daily Will BladderScan patient and if volume is greater than 400 straight cath-patient was saying that she feels like she has to void and she is unable to -Vital signs every 4 hours Cardiac diet CBC/BMP daily Normal saline at 50 mL an hour 40 mg Lovenox subcu daily for DVT prophylax 5 mg of [place] p.o. every 4 hours for moderate pain 2 mg morphine IV push every 4 hours as needed severe pain 4 mg Zofran IV push every 8 hours. Nausea and vomiting Patient did receive 30 mL/kg body weight of IV hydration Full code I discussed this case with attending physician Dr. Benitez and I look forward to more
--- NOTE | 2025-07-06 21:13 | PC.NURSE ---
report called to Carissa PECK in [facility]
[2025-07-06 21:44] LABS: Troponin I < 0.01 ng/ml (0.00-0.034)
[2025-07-06 21:55] LABS: Reflex Lactic Add Lactic Reflex
[2025-07-06] MEDS: METRONIDAZ/SOD CHL 500 MG/100 ML PIGGYBACK 100 MG IV (22:00)
[2025-07-06] MEDS: 0.9 % SODIUM CHLORIDE 1000ML 1,000 ML 50 ML IV (22:00)
--- NOTE | 2025-07-06 22:52 | PC.NURSE ---
provider notified, pt stated she had trouble urinating. Bladder scanned pt. volume >840. Provider put in order for palafox to be anchored. Palafox inserted with no issue.
[2025-07-06] MEDS: VANCOMYCIN CONSULT REQUEST 1 EACH NOTAPPLIC (23:11)
[2025-07-07] VITALS (7 sets, daily range): BP systolic 98–116; BP diastolic 53–74; PULSE 70–90; RESP 16–18; TEMP 36.4–36.8; O2SAT 92–98; BMI 42.4
[2025-07-07 00:10] LABS: Lactic Acid Follow Up (RFLX 1) 1.8 mmol/L (0.7-2.1)
[2025-07-07 00:44] LABS: Troponin I < 0.01 ng/ml (0.00-0.034)
[2025-07-07] MEDS: METRONIDAZ/SOD CHL 500 MG/100 ML PIGGYBACK 100 MG IV ×4 (04:12→20:23)
[2025-07-07 05:55] LABS: Hematocrit 34.2 % (37.0-47.0); Immature Granulocytes % 0.8 %; Mean Corpuscular HGB Conc 31.0 g/dL (31.8-35.4); Mean Corpuscular Hemoglobin 29.5 pg (27.0-31.2); Mean Corpuscular Volume 95.3 fl (81-99); Nucleated Red Blood Cells % 0 %; Platelet Count 345 K/mm3 (142-424); Red Blood Count 3.59 M/mm3 (4.20-5.40); Red Cell Distribution Width-SD 60.5 fL; White Blood Count 10.2 K/mm3 (4.8-10.8)
[2025-07-07 06:03] LABS: Hemoglobin 10.7 g/dL (12.2-16.2)
[2025-07-07 06:16] LABS: Chloride 103 mmol/L (98-107); Sodium 136 mmol/L (136-145)
[2025-07-07 06:19] LABS: Blood Urea Nitrogen 14 mg/dl (7-17); Creatinine Clearance Estimated 48 mL/min (50-200); Creatinine,Serum 1.00 mg/dl (0.52-1.04); Estimated Glomerular Filt Rate 55 ml/min (>60); GFR (African American) 67 ML/MIN (>60)
[2025-07-07 06:20] LABS: Anion Gap 11.7 mEq/L (5-15); Calcium 7.1 mg/dl (8.4-10.2); Carbon Dioxide 24 mmol/L (22.0-30.0); Glucose 98 mg/dl (74-100)
[2025-07-07 06:22] LABS: Potassium 2.7 mmoL/L (3.5-5.1)
--- NOTE | 2025-07-07 06:30 | PC.NURSE ---
New Admit. Lab called critical @ 0646 pot=2.7, provider notified. Pt had to have palafox placed for retention. Provider notified, order placed. Bladder scan resulted 848. Medications from home locked in bedside drawer. at bedside. v/s, ox4, RA. Pt tolerated IV ABX. Plan of care ongoing.
[2025-07-07] MEDS: POTASSIUM CHLORIDE 20MEQ TAB 80 MEQ PO (06:55)
[2025-07-07 08:02] LABS: RBC Morphology Normal; Total Cells Counted 100
[2025-07-07] MEDS: HYDROCODONE/APAP 5/325 MG TABLET 1 TAB PO (08:43)
--- NOTE | 2025-07-07 09:10 | HMH.PHAINT1 ---
Pharmacy Intervention Comments: MEDICATION RECONCILIATION COMPLETED ON PATIENT USING EXTERNAL FILL HISTORY FROM PHARMACY, LIST FROM CARDIOLOGY OFFICE, AND PATIENT'S OWN BOTTLES. -CEE LOPEZ, PHARMD
--- NOTE | 2025-07-07 09:32 | SW/DCPLANNER ---
Addendum entered by Sol Hernandez 07/08/25 11:00: [facility] is able to accept patient. Nadeen Mcguire Addendum entered by Sol Hernandez 07/08/25 09:31: Faxed patient's information to [facility]. Will update when i hear back if they can accept patient. Nadeen Mcguire Original Note: I spoke w/ patient and her regarding plans once medically stable for discharge. PT/OT evaluated patient and recommended SNF level of care. Patient stated that she resides at home w/ her and plans to return home at time of discharge. Patient is not interested in SNF at this time. Patient is agreeable to home health services w/ no agency preference. CM will set up home health services once medically stable for discharge.
--- NOTE | 2025-07-07 09:39 | HMH.PTEV ---
Physical Therapy Evaluation Rehab PT IP Evaluation Start: 07/06/25 21:02 Freq: ONCE Status: Active Protocol: Document 07/07/25 09:35 EPDRO (Rec: 07/07/25 09:39 PEDRO [id number]) Subjective/History History History Per H&P: This is a 65-year-old female who has a past medical history significant for diverticulitis, COPD, osteoarthritis, coronary artery disease, migraine headaches, lumbar radiculopathy, anxiety, obesity, sleep apnea, hyperlipidemia, and hypertension who presents with a chief complaint of weakness, nausea, and vomiting. Due to patient's symptoms, patient presented to the emergency room for evaluation. While in the emergency room, presenting white blood cell count was 22,[address] scan of the abdomen pelvis was consistent with colitis. Due to these findings, hospital medicine was contacted for further management. During my evaluation of the patient, patient states she has been having a functional decline for over the past week. She reports having weakness to the extent she has to use a wheelchair for ambulation. She is reporting diffuse abdominal pain coupled with nausea and nonbilious emesis. It is worth mentioning that patient recently was life flighted to the [facility] due to severe sepsis with suspected diverticulitis. Patient does endorse having some chills but no fever; moreover, patient is denying any headache, blurred vision, upper or lower extremity drift unilaterally, loss of bowel or bladder, chest pain, shortness of breath, dyspnea, or blurred vision. Patient does endorse having 2 episodes of loose stool over the course of the past 24 hours. Additional pertinent labs obtained including white blood cell count of 22.6, platelet count of 529, neutrophils 81%, D-dimer was 1.61, venous lactic acid of 3.8, sodium of 133, BUN of 19, creatinine 1.70, GFR of 30, blood glucose 420, magnesium 1.1, and urinalysis revealed 2+ leukocyte esterase. Subjective Subjective Pt reports she lives with her , DIL, and grandson. Pt lives in a single-story home with 5 LAUREN. Pt normally uses RW for IND ambulation but has recently started using a w/c d/t weakness and difficulty ambulating. Pt denies falls in past 30 days. New diagnosis of No cancer in past 12 months? [facility] How much help from another person do you currently need... Turning from your A little back to your side while in a flat bed without using bedrails? Moving from lying on A little back to sitting on the side of a flat bed without using bedrails? Moving to and from a A lot bed to a chair ( including a wheelchair)? Standing up from a A lot chair using your arms? (e.g., wheelchair, bedside chair) Walking in hospital A lot room? Climbing 3-5 steps A lot with a railing? Mobility Score 14 Mobility Level [facility] Mobility 4 Move to chair/commode Mobility Calculator Rehab PT IP Eval Objective Appearance Patient Behavior Appropriate,Cooperative Patient Orientation Person,Situation Difficulty following none instructions Speech Pattern Clear Ambulation Patient Able to No Ambulate Balance Ability to Arise Able, uses arms to help Sitting Balance Steady, safe Standing Balance Unsteady Transfers Bed Transfer Ability Minimal x 1 (25% assist) Sit to Stand Bed Moderate x 1 (50% assist) Transfer Ability Sit to Stand Chair Moderate x 1 (50% assist) Transfer Ability Rehab PT IP prob,goals,plan Problems Date of Evaluation: 07/07/25 PT IP Problems Bed Mobility,Transfers,Gait,Balance,Self care,Safety Rehab Potential Rehab Potential Good Plan PT Intervention Plan Bed Mobility,Transfers,Gait,Balance,Self care,Safety, Therapeutic Exercise Other Intervention 1-2 times Plan PT Plan Frequency Daily Duration LOS Discharge Goals Bed Transfer Ability Supervision/Stand by Sit to Stand Chair Minimal x 1 (25% assist) Transfer Ability Ambulation Assistive Rolling Walker Device Ambulation Distance 5 (feet) Discharge Plan PT Discharge Plan Initial physical therapy evaluation performed. Patient presents below baseline at this time in functional mobility, transfers, and strength. Pt most appropriate for short-term rehabilitation stay upon d/c from [facility] d/ t current level of mobility. Pt would benefit from skilled PT while at [facility] to prevent further functional decline and maximize safety with mobility. Eval Complexity Eval Charge Codes 83564 - Moderate Complexity PHYSICIAN CERTIFICATION: I certify the specified therapy services for Laura Mallory are required, authorized, and reviewed every 30 days.
--- NOTE | 2025-07-07 09:41 | HMH.OTEV ---
OT Inpatient Evaluation Rehab OT IP Evaluation Start: 07/06/25 21:02 Freq: ONCE Status: Active Protocol: Document 07/07/25 09:35 MAJOARCO (Rec: 07/07/25 09:41 [facility]-[id number]) Rehab OT IP Assessment Subjective History Pt oriented x 3 on arrival. Pt agreeable to engage in therapy evaluation. Pt's present and supportive. Pt admitted on 07/06/25 due to weakness from sepsis. History and physical: This is a 65-year-old female who has a past medical history significant for diverticulitis, COPD, osteoarthritis, coronary artery disease, migraine headaches, lumbar radiculopathy, anxiety, obesity, sleep apnea, hyperlipidemia, and hypertension who presents with a chief complaint of weakness, nausea, and vomiting. Due to patient's symptoms, patient presented to the emergency room for evaluation. While in the emergency room, presenting white blood cell count was 22,[address] scan of the abdomen pelvis was consistent with colitis. Due to these findings, hospital medicine was contacted for further management. During my evaluation of the patient, patient states she has been having a functional decline for over the past week. She reports having weakness to the extent she has to use a wheelchair for ambulation. She is reporting diffuse abdominal pain coupled with nausea and nonbilious emesis. It is worth mentioning that patient recently was life flighted to the [facility] due to severe sepsis with suspected diverticulitis. Patient does endorse having some chills but no fever; moreover, patient is denying any headache, blurred vision, upper or lower extremity drift unilaterally, loss of bowel or bladder, chest pain, shortness of breath, dyspnea, or blurred vision. Patient does endorse having 2 episodes of loose stool over the course of the past 24 hours. Additional pertinent labs obtained including white blood cell count of 22.6, platelet count of 529, neutrophils 81%, D-dimer was 1.61, venous lactic acid of 3.8, sodium of 133, BUN of 19, creatinine 1.70, GFR of 30, blood glucose 420, magnesium 1.1, and urinalysis revealed 2+ leukocyte esterase. Subjective Prior to being in the hospital, pt lived at home with her , grandson, and DIL. Pt claims normally she is independent with all ADLs (dressing, bathing, and feeding). Family completes all IADLS for patient. Pt no longer drives. Pt does use a cane or a walker during functional transfers. She no longer drives. Pt lives in a one story home with 5 steps to enter home. Objective Patient Orientation Person,Place,Birthday Right Upper WFL Extremity Gross ROM Left Upper Extremity WFL Gross ROM Bed Mobility bed mobility-scooting,bed mobility - supine/sit Assist Level Minimal x 2 (25% assist) Transfer Training Sit/Stand/Step Transfer Assist Level Minimal x 2 (25% assist) Lower Body Dressing Maximum Assistance Ability Rehab OT IP prob,goals,plan Problems Date of Evaluation: 07/07/25 OT IP Problems Bed Mobility,Transfers,Balance,Self care,Safety Rehab Potential Rehab Potential Good Equipment Needs Assistive Devices Rolling / Wheeled Walker Plan OT intervention Plan Bed Mobility,Transfers,Balance,Self care,Safety, Therapeutic Exercise OT Plan Frequency Daily Duration LOS Discharge Goals Bed Mobility Ability Assistance x1 Sit to Stand Chair Minimal x 1 (25% assist) Transfer Ability Chair Transfer Minimal x 1 (25% assist) Ability Chair Transfer Sit to/from Ambulatory Technique Chair Transfer Rolling Walker Assistive Devices Lower Body Dressing Moderate Assistance Ability Upper Body Dressing Minimal Assistance Ability Performing Toilet Minimal Assistance Hygiene Ability Overall Commode/ Minimal Assistance Toilet Transfer Ability Commode/Toilet Sit to/from Ambulatory Transfer Technique Discharge Plan OT Discharge Plan Pt will continue to be seen for OT services while at [facility]. At this time, therapist recommends short term rehab at SNF following hospital stay due to functional decline. However, if pt is reluctant therapist recommends home with family assistance 16/06. If pt returns home with family, therapist recommends OT evaluation. Continued skilled therapy is important in order for patient to improve strength, safety, endurance, ADL independence, and functional transfers to reach OF. Eval Complexity Eval Charge Codes 63740 - Moderate Complexity PHYSICIAN CERTIFICATION: I certify the specified therapy services for Laura Mallory are required, authorized, and reviewed every 30 days.
[2025-07-07 09:48] LABS: Magnesium 1.6 mg/dl (1.6-2.3)
--- NOTE | 2025-07-07 10:02 | EXP.PHA.CONS ---
Pharmacy Consult Date: 07/07/25 Time: 10:02 Referring provider: SURY VILLARREAL APRN Reason for Consult:: VANCOMYCIN DOSING Allergies Allergy/AdvReac Type Severity Reaction Status Date / Time sumatriptan Allergy Severe Difficulty Verified 05/05/25 13:42 Breathing fexofenadine (FEXOFENADINE) Allergy Intermediate SICK Verified 05/05/25 13:42 amoxicillin (From AUGMENTIN) Allergy Unknown SOA Verified 05/05/25 13:42 clavulanic acid (From Allergy Unknown SOA Verified 05/05/25 13:42 AUGMENTIN) naproxen (NAPROXEN) Allergy Unknown SWELLING Verified 05/05/25 13:42 Home Medications ?Medication ?Instructions ?Recorded ?Confirmed ?Type atorvastatin 40 mg tablet 40 mg PO HS 11/22/24 07/06/25 History cholecalciferol (vitamin D3) 50 50 mcg PO DAILY 11/22/24 07/06/25 History mcg (2,000 unit) capsule duloxetine 60 mg capsule,delayed 60 mg PO DAILY 11/22/24 07/06/25 History release famotidine 20 mg tablet 20 mg PO DAILY 11/22/24 07/06/25 History gabapentin 100 mg capsule 100 mg PO TID 11/22/24 07/06/25 History hydroxyzine HCl 25 mg tablet 25 mg PO BID 11/22/24 07/06/25 History aspirin 81 mg capsule 81 mg PO DAILY 12/29/24 07/06/25 History omeprazole 20 mg capsule,delayed 20 mg PO DAILY 05/05/25 07/06/25 History release carvedilol 3.125 mg tablet 3.125 mg PO BID 30 days #60 tabs 06/20/25 07/06/25 Rx fluticasone fur. 100 mcg-umeclid 1 ea inhalation DAILY 07/06/25 07/06/25 History 62.5 mcg-vilant 25 mcg inhalat.powder (Trelegy Ellipta) linaclotide 72 mcg capsule 72 mcg PO DAILY 07/06/25 07/06/25 History (Linzess) sacubitril 24 mg-valsartan 26 mg 1 tab PO BID 07/06/25 07/06/25 History tablet (Entresto) topiramate 100 mg tablet 100 mg PO DAILY 07/06/25 07/06/25 History topiramate 100 mg tablet 150 mg PO HS 07/06/25 07/06/25 History celecoxib 100 mg capsule 100 mg PO BID 07/07/25 07/07/25 History furosemide 40 mg tablet 40 mg PO BIDL 07/07/25 07/07/25 History tramadol 50 mg tablet 50 mg PO TIDP PRN Moderate Pain 07/07/25 07/07/25 History (Scale Score 5-6) New Prescriptions to Start Prescriptions: Height: 1.65 m Weight: 115.485 kg Laboratory Results:: Laboratory Results - last 24 hr 07/06/25 17:35: WBC 22.6 H*, RBC 4.29, Hgb 12.7, Hct 39.2, MCV 91.4, MCH 29.6, MCHC 32.4, RDW 17.6 H, Plt Count 529 H, MPV 10.0, Neut % (Auto) 82.1 H, Lymph % (Auto) 6.6 L, [place] % (Auto) 9.9 H, Eos % (Auto) 0.1, Baso % (Auto) 0.5, Neut # (Auto) 18.6 H, Lymph # (Auto) 1.5, [place] # (Auto) 2.2 H, Eos # (Auto) 0.0, Baso # (Auto) 0.1, Total Counted 100, Neutrophils % (Manual) 81 H, Lymphocytes % (Manual) 14, Monocytes % (Manual) 5, Platelet Estimate Marked increase, RBC Morphology Normal, ESR 25, D-Dimer 1.61 H, VBG pH 7.32, VBG pCO2 44.3, VBG pO2 36.0, VBG HCO3 22.3 L, VBG Total CO2 23.7, VBG O2 Saturation 61.0, VBG Base Excess -3.8 L, VBG Lactic Acid 3.8 H, Sodium 133 L, Potassium 3.9, Chloride 98, Carbon Dioxide 24, Anion Gap 14.9, BUN 19 H, Creatinine 1.70 H, Estimated Creat Clear 57, Estimated GFR 30 L, Est GFR ( Amer) 36 L, Glucose 120 H, Lactate 2.8 H, Calcium 8.5, Magnesium 1.1 L, Total Bilirubin 1.0, AST 37 H, ALT 16, Alkaline Phosphatase 131 H, Troponin I 0.01, C-Reactive Protein 39.0 H, Total Protein 8.0, Albumin 4.3, Globulin 3.7 H, Albumin/Globulin Ratio 1.2, Lipase 92 07/06/25 17:44: SARS-CoV-2 (PCR) Not detected, Influenza A Untype (PCR) Not detected, Influenza Type B (PCR) Not detected 07/06/25 20:06: Urine Color Yellow, Urine Appearance Clear, Urine pH 6.0, Ur Specific Burton 1.010, Urine Protein Negative, Urine Glucose (UA) Negative, Urine Ketones Negative, Urine Blood Trace-i, Urine Nitrate Negative, Urine Bilirubin Negative, Urine Urobilinogen 0.2, Ur Leukocyte Esterase 2+ A, Urine RBC 5-10, Urine WBC 20-50, Ur Squamous Epith Cells 5-10, Urine Bacteria 1+ 07/06/25 21:00: Troponin I < 0.01 07/06/25 23:48: Lactate 1.8, Troponin I < 0.01 07/07/25 05:30: WBC 10.2 D, RBC 3.59 L, Hgb 10.7 L D, Hct 34.2 L, MCV 95.3, MCH 29.5, MCHC 31.0 L, RDW 17.7 H, Plt Count 345 D, MPV 9.7, Neut % (Auto) 61.1, Lymph % (Auto) 20.4, [place] % (Auto) 15.8 H, Eos % (Auto) 0.9, Baso % (Auto) 1.0, Neut # (Auto) 6.2, Lymph # (Auto) 2.1, [place] # (Auto) 1.6 H, Eos # (Auto) 0.1, Baso # (Auto) 0.1, Total Counted 100, Neutrophils % (Manual) 77 H, Lymphocytes % (Manual) 15, Monocytes % (Manual) 7, Basophils % (Manual) 1.0, Platelet Estimate Normal, RBC Morphology Normal, Sodium 136, Potassium 2.7 L* D, Chloride 103, Carbon Dioxide 24, Anion Gap 11.7, BUN 14 D, Creatinine 1.00 D, Estimated Creat Clear 48, Estimated GFR 55 L, Est GFR ( Amer) 67 D, Glucose 98, Calcium 7.1 L, Magnesium 1.6 D Medical History: Medical History (Updated 07/06/25 @ 21:21 by Glynn Walker APRN) Anxiety and depression Arthritis Urinary tract infection History of COVID-19 Migraine History of stroke History of gastroesophageal reflux (GERD) History of anemia Insomnia COPD mixed type Oral dyskinesia Lung nodule Dyspnea on exertion Encounter for screening for malignant neoplasm of lung History of asthma Stopped smoking with greater than 30 pack year history Edema of both lower extremities Takotsubo cardiomyopathy Mediastinal lymphadenopathy Hilar lymphadenopathy Asthma exacerbation APARNA (obstructive sleep apnea) Brain TIA Asthma Hyperglycemia Tremor APARNA (obstructive sleep apnea) Osteoarthritis Hypertensive disorder Hyperlipidemia Gastroesophageal reflux disease Assessment and Plan Assessment and plan all Dx Assessment and Plan for all problems:: Pharmacokinetic dosing service Objective: Patient: Floor: Age: 65 yo Serum creatinine: 1 mg/dL Height: 65.0 Inches Weight (kg): 115.5 Assessment: IBW (kg): 57.00 Dosing wt(kg): 115.5 Estimated Creatinine clearance (ml/min): 49.8 CRCL method: Cockcroft and Gault using ibw(default). Drug selected: Vancomycin Loading dose (mg): 0 Vd (liters): 92.4 (factor used: 0.8 L/kg) Michael (hr-1): 0.046 Half life (hrs): 15.07 Recommended dose: 1750 mg Interval: 18 hrs Infusion time (hrs): 2.0 Predicted peak (mcg/mL): 32.1 Predicted trough (mcg/mL): 15.38 Total body weight is being used for vancomycin dosing. Recommendations: Give Vancomycin 1750 mg q 18 hrs with an expected Cpeak of 32.1 mcg/ml and an expected Ctrough of 15.38 mcg/ml ----Vanco only - ignore for aminoglycosides----- CLvanco= 4.25 L/hr AUC 0-24 /HORACE Data: HORACE 0.5 mcg/mL: AUC/HORACE: 1098.0 HORACE 1.0 mcg/mL: AUC/HORACE: 549.0 --------- HORACE 1.5 mcg/mL: AUC/HORACE: 366.0 HORACE 2.0 mcg/mL: AUC/HORACE: 274.5
--- NOTE | 2025-07-07 10:07 | P.PN_ITS ---
Subjective *Date: 07/08/25 *Time: 10:25 Interval history: Patient is sitting up in bed, overall well-appearing. She states she feels much better than when she came in yesterday. She states she is still weak. PT/OT recommended SNF, patient would like to return home. Is amendable to home health services. Blood culture and urine culture both pending. Empiric antibiotics at this time. White count is stabilized today. Medical Exam Vital signs and Labs for Last 24 Hours: Vital Signs Temp Pulse Pulse Resp BP BP Pulse Ox 07/07/25 08:40 07/07/25 08:00 90 07/07/25 08:00 98.2 F 78 17 116/64 94 L 07/07/25 06:29 07/07/25 05:00 07/07/25 04:00 97.6 F 78 18 107/66 L 97 07/07/25 04:00 70 07/07/25 03:00 07/07/25 01:00 07/07/25 00:00 70 07/07/25 00:00 97.8 F 77 16 104/58 L 98 07/06/25 23:00 07/06/25 21:50 97.9 F 81 20 119/61 98 07/06/25 21:32 98.7 F 75 18 121/71 07/06/25 21:09 07/06/25 20:31 75 16 121/71 97 07/06/25 20:01 77 17 127/75 98 07/06/25 19:31 78 19 106/72 L 95 07/06/25 19:18 79 21 111/60 97 07/06/25 18:00 18 95/63 L 07/06/25 17:44 88 14 105/63 L 95 07/06/25 17:39 98.1 F 79 18 105/63 L 96 O2 Del Method 07/07/25 08:40 Room Air 07/07/25 08:00 07/07/25 08:00 Room Air 07/07/25 06:29 Room Air 07/07/25 05:00 Room Air 07/07/25 04:00 Room Air 07/07/25 04:00 07/07/25 03:00 Room Air 07/07/25 01:00 Room Air 07/07/25 00:00 07/07/25 00:00 Room Air 07/06/25 23:00 Room Air 07/06/25 21:50 Room Air 07/06/25 21:32 Room Air 07/06/25 21:09 Room Air 07/06/25 20:31 07/06/25 20:01 07/06/25 19:31 07/06/25 19:18 07/06/25 18:00 07/06/25 17:44 07/06/25 17:39 Room Air Intake and Output 07/06/25 07/07/25 07/07/25 23:59 07:59 15:59 Intake Total 120 / 360 240 / 360 Output Total 1125 / 1125 0 / 1125 Balance -1005 / -765 240 / -765 Intake: Intake, Oral Amount 120 / 360 240 / 360 Output: Output, Urine Amount 1125 / 1125 0 / 1125 Other: Number of Unmeasured Voids 0 0 Weight 115.122 kg 115.485 kg 115.485 kg Patient Weight 07/07/25 23:59 Weight 115.485 kg Laboratory Results - last 24 hr 07/06/25 17:35: WBC 22.6 H*, RBC 4.29, Hgb 12.7, Hct 39.2, MCV 91.4, MCH 29.6, MCHC 32.4, RDW 17.6 H, Plt Count 529 H, MPV 10.0, Neut % (Auto) 82.1 H, Lymph % (Auto) 6.6 L, [place] % (Auto) 9.9 H, Eos % (Auto) 0.1, Baso % (Auto) 0.5, Neut # (Auto) 18.6 H, Lymph # (Auto) 1.5, [place] # (Auto) 2.2 H, Eos # (Auto) 0.0, Baso # (Auto) 0.1, Total Counted 100, Neutrophils % (Manual) 81 H, Lymphocytes % (Manual) 14, Monocytes % (Manual) 5, Platelet Estimate Marked increase, RBC Morphology Normal, ESR 25, D-Dimer 1.61 H, VBG pH 7.32, VBG pCO2 44.3, VBG pO2 36.0, VBG HCO3 22.3 L, VBG Total CO2 23.7, VBG O2 Saturation 61.0, VBG Base Excess -3.8 L, VBG Lactic Acid 3.8 H, Sodium 133 L, Potassium 3.9, Chloride 98, Carbon Dioxide 24, Anion Gap 14.9, BUN 19 H, Creatinine 1.70 H, Estimated Creat Clear 57, Estimated GFR 30 L, Est GFR ( Amer) 36 L, Glucose 120 H, Lactate 2.8 H, Calcium 8.5, Magnesium 1.1 L, Total Bilirubin 1.0, AST 37 H, ALT 16, Alkaline Phosphatase 131 H, Troponin I 0.01, C-Reactive Protein 39.0 H, Total Protein 8.0, Albumin 4.3, Globulin 3.7 H, Albumin/Globulin Ratio 1.2, Lipase 92 07/06/25 17:44: SARS-CoV-2 (PCR) Not detected, Influenza A Untype (PCR) Not detected, Influenza Type B (PCR) Not detected 07/06/25 20:06: Urine Color Yellow, Urine Appearance Clear, Urine pH 6.0, Ur Specific [place] 1.010, Urine Protein Negative, Urine Glucose (UA) Negative, Urine Ketones Negative, Urine Blood Trace-i, Urine Nitrate Negative, Urine Bilirubin Negative, Urine Urobilinogen 0.2, Ur Leukocyte Esterase 2+ A, Urine RBC 5-10, Urine WBC 20-50, Ur Squamous Epith Cells 5-10, Urine Bacteria 1+ 07/06/25 21:00: Troponin I < 0.01 07/06/25 23:48: Lactate 1.8, Troponin I < 0.01 07/07/25 05:30: WBC 10.2 D, RBC 3.59 L, Hgb 10.7 L D, Hct 34.2 L, MCV 95.3, MCH 29.5, MCHC 31.0 L, RDW 17.7 H, Plt Count 345 D, MPV 9.7, Neut % (Auto) 61.1, Lymph % (Auto) 20.4, [place] % (Auto) 15.8 H, Eos % (Auto) 0.9, Baso % (Auto) 1.0, Neut # (Auto) 6.2, Lymph # (Auto) 2.1, [place] # (Auto) 1.6 H, Eos # (Auto) 0.1, Baso # (Auto) 0.1, Total Counted 100, Neutrophils % (Manual) 77 H, Lymphocytes % (Manual) 15, Monocytes % (Manual) 7, Basophils % (Manual) 1.0, Platelet Estimate Normal, RBC Morphology Normal, Sodium 136, Potassium 2.7 L* D, Chloride 103, Carbon Dioxide 24, Anion Gap 11.7, BUN 14 D, Creatinine 1.00 D, Estimated Creat Clear 48, Estimated GFR 55 L, Est GFR ( Amer) 67 D, Glucose 98, Calcium 7.1 L, Magnesium 1.6 D I & O for Labs for Last 24 Hours: Intake & Output 07/04/25 07/05/25 07/06/25 07/07/25 23:59 23:59 23:59 23:59 Intake Total 360 / 360 Output Total 1125 / 1125 Balance -765 / -765 Weight 115.122 kg 115.485 kg Constitutional: Present no acute distress, morbidly obese, chronically ill brandi earing and cooperative Head: Present atraumatic ENT: Present normal exam Neck: Present normal inspection Respiratory: Present CTA bilaterally, able to speak in complete sentences and symmetric chest movement; Absent wheezes or crackles Cardiac: Present Reg Rate and Rhythm; Absent No Murmur GI: Present soft and normal bowel sounds; Absent distention or tenderness Rectal (female): Present deferred (female): Present deferred Extremities: Present normal inspection and edema (1+ nonpitting); Absent tenderness Skin: Present intact and dry; Absent rash Neuro: Present alert, awake and oriented x 3 Assessment and Plan *Assessment and plan (1) Colitis: Status: Acute Category: Medical Code(s): K52.9 - Noninfective gastroenteritis and colitis, unspecified (2) Leukocytosis: Status: Acute Qualifiers: Leukocytosis type: unspecified Qualified Code(s): D72.829 - Elevated white blood cell count, unspecified Category: Medical Code(s): D72.829 - Elevated white blood cell count, unspecified (3) FER (acute kidney injury): Status: Acute Category: Medical Code(s): N17.9 - Acute kidney failure, unspecified (4) Dehydration: Status: Acute Category: Medical Code(s): E86.0 - Dehydration (5) Urinary tract infection: Status: Acute Category: Medical Code(s): N39.0 - Urinary tract infection, site not specified (6) Hypomagnesemia: Status: Acute Category: Medical Code(s): E83.42 - Hypomagnesemia (7) Hypocalcemia: Status: Acute Category: Medical Code(s): E83.51 - Hypocalcemia (8) Hypokalemia due to excessive gastrointestinal loss of potassium: Status: Acute Category: Medical Code(s): E87.6 - Hypokalemia (9) Hypokalemia: Status: Acute Category: Medical Code(s): E87.6 - Hypokalemia (10) Generalized weakness: Status: Acute Category: Medical Code(s): R53.1 - Weakness (11) Assessment of physical health declined: Status: Acute Category: Medical Code(s): Z53.20 - Procedure and treatment not carried out because of patient's decision for unspecified reasons (12) Morbid obesity with BMI of 40.0-44.9, adult: Status: Acute Category: Medical Code(s): E66.01 - Morbid (severe) obesity due to excess calories; Z68.41 - Body mass index [BMI] 40.0-44.9, adult Plan Ms. Mallory is a 65-year-old female who was admitted from the emergency department yesterday after presenting with weakness, nausea, vomiting, diarrhea. She states this morning that this has been going on for approximately 2 to 3 days. But she was recently hospitalized at the [facility] for over a week for sepsis. Workup in the emergency department revealed leukocytosis of 22.6 with left shift, elevated CRP, imaging showed colitis, elevated platelets at 529, kidney injury with a creatinine of 1.7, hypomagnesemia of 1.1, and urinary tract infection with 2+ leuk esterase. Hospital medicine was consulted for admission for further management. Plan of care is as follows: #Colitis #Leukocytosis, resolved ? Patient receiving Levaquin p.o. every 48 hours and Flagyl 500 mg IV every 6 hours. Patient's white count has stabilized today at 10.2. Patient is receiving gentle IV hydration of NS at 50 mL/h. Patient is able to tolerate p.o. diet without issues. She states she has had 1 episode of diarrhea since ad mission. Diarrhea panel ordered. No nausea or vomiting since admission. Patient denies abdominal pain or tenderness to palpation. ? Blood cultures pending, procalcitonin within normal limits. ? Ordered CBC, CMP, magnesium for the a.m. #FER #Dehydration #Urinary retention ? Patient initial creatinine on admission 1.7, has normalized to patient's baseline today creatinine 1.0. ? Patient is receiving IV fluids, tolerating p.o. diet. She did have notable urinary retention on admission. Bladder scan showed approximately 850 mL. Ni catheter was placed and drained approximately 850 mL. Patient states that she does see Dr. Millan but has not seen him since February. That he did recommend a procedure for her but she has not been able to do it due to her illness. Will remove Ni today and trial ability to urinate. ? Platelets initially 529 likely due to dehydration, resolved today and within normal limits, 345. ? Patient has had recurrent urinary tract infections for the past few months. She has taken multiple different antibiotics. Specimen was sent for ID and susceptibility on 06/17/2025, results came back positive for Enterococcus faecium. Susceptibility to only vancomycin. As far as the patient is aware she was not treated with vancomycin. She received 1 dose of vancomycin in the ED on admission, will continue vancomycin dosed by pharmacy. #Hypomagnesia ? Patient initial magnesium 1.1, patient received 2, 2 g infusions of magnesium. Repeat this morning 1.6. Will replete per electrolyte protocol. Recheck magnesium in the a.m. #Hypocalcemia ? Patient calcium 7.1, will replete with IV calcium gluconate. Repeat CMP in the AM. #Hypokalemia ? Patient potassium 2.7, repleted with 80 mg p.o. potassium. Repeat potassium today 4.5. #Weakness #Physical decline ? Patient has been multiple admissions recently due to infection/sepsis events. PT/OT recommends SNF at discharge. Patient is not agreeable to placement at this time. She is amenable to home health services. Discussed this with case management/social work. Patient will continue to work with PT/OT during admission. ?Patient is morbidly obese, BMI 42. Appears to live a overall sedentary lifestyle. This complicates all aspects of patient's care. Full code Lovenox?PT Cardiac diet Ambulate as tolerated with assist
[2025-07-07 10:09] LABS: Procalcitonin 0.200 ng/mL (0.0-2.0)
[2025-07-07] MEDS: FLUTICASONE/UMECLIDIN/VILANTER 100/62.5/25MCG INHALER 1 PUFF IH (10:22)
--- OUTSIDE RECORDS SUMMARY | 2025-07-07 10:24 | XMS_ITS | Encounter Summary ---
Author Organization [facility] Address [address] [place] [id number] Care Team Providers Care Radiography Technician Name Role Phone Manas Jenkins MD Primary Care Provider [phone] Source Comments This information has been disclosed [...] release of HIV test results or diagnoses. [id number] Encounter Details Date Type Department Care [...] Recorded In the past 12 months has [employer], gas, oil, or water [employer] threatened to shut off services in your [...] were you homeless or living in a alf (including now)? No 05/25/2025 Comments No Sex [...] documented as of this encounter Care Teams Radiography Technician Relationship Specialty Start Date End Date Manas Jenkins MD [address] [place] [address] PCP - General Family Medicine 10/14/17 documented as of this encounter
[2025-07-07] MEDS: MAGNESIUM SULFATE IN WATER 2 GM/50 ML PIGGYBACK IV ×2 (10:25→11:31)
[2025-07-07] MEDS: GABAPENTIN 100MG CAPSULE 100 MG PO ×3 (10:25→20:07)
--- OUTSIDE RECORDS SUMMARY | 2025-07-07 10:25 | XMS_ITS | Encounter Summary ---
Author Organization [facility] Address [address] [place] [address] Care Team Providers Care Meter Technician Name Role Phone Manas Jenkins MD Primary Care Provider + Reason for Visit * Reason Onset Date Comments CALLBACK 06/27/2025 Encounter Details Date Type Department Care Team (Late st Contact Info) Description 06/27/2025 Telephone [facility] [address] [place] [address] Manas Jenkins MD [address] [place] [address] CALLBACK 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 Tobacco Use [...] Encounter - Khalida Malcolm MA - 06/27/2025 10:57 AM EDT [...] documented as of this encounter Care Teams Meter Technician Relationship Specialty Start Date End Date Manas Jenkins MD [address] [place] [id number] PCP - General Family Medicine 05/02/22 documented as of this encounter
--- OUTSIDE RECORDS SUMMARY | 2025-07-07 10:25 | XMS_ITS | Encounter Summary ---
Author Organization [facility] Address [address] [place] [address] Care Team Providers Care Diesel Technician Name Role Phone Manas Jenkins MD Primary Care Provider + Reason for Visit * Reason Comments Med Refill Encounter Details Date Type Department Care Team (Late st Contact Info) Description 06/17/2025 Refill [facility] FAM[facility] MEDICINE [address] [place] [address] Manas Jenkins MD [address] [place] [address] 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 Tobacco Use Types [...] as of this encounter Care Teams Diesel Technician Relationship Specialty Start Date End Date Manas Jenkins MD [address] [place] [address] PCP - General Family Medicine 05/02/22 documented as of this encounter
--- OUTSIDE RECORDS SUMMARY | 2025-07-07 10:25 | XMS_ITS | Encounter Summary ---
Author Organization [facility] Address [address] [place] [address] Care Team Providers Care Gum Machine Operator Name Role Phone Manas Jenkins MD [...] documented as of this encounter Care Teams Gum Machine Operator Relationship Specialty Start Date End Date Manas Jenkins MD [address] [place] [address] PCP - General Family Medicine 05/02/22 documented as of this encounter
--- OUTSIDE RECORDS SUMMARY | 2025-07-07 10:25 | XMS_ITS | Encounter Summary ---
Author Organization [facility] Address [address] [place] [address] Care Team Providers Care Medicinal Plant Picker Name Role Phone Manas Jenkins MD Primary Care Provider + Reason for Visit * Reason Comments Med Refill Encounter Details Date Type Department Care Team (Late st Contact Info) Description 06/26/2025 Refill [facility]ICINE [address] [place] [address] Manas Jenkins MD [address] [place] [address] 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 Tobacco Use Types [...] documented as of this encounter Care Teams Medicinal Plant Picker Relationship Specialty Start Date End Date Manas Jenkins MD [address] [place] [address] PCP - General Family Medicine 05/02/22 documented as of this encounter
--- OUTSIDE RECORDS SUMMARY | 2025-07-07 10:25 | XMS_ITS | Encounter Summary ---
[facility] Organization [facility] Address [address] [place] [address] Care Team Providers Care Parachute Repairer Name Role Phone Manas Jenkins MD Primary Care Provider + Reason for Visit * Reason Onset Date Comments Medication Problem 06/07/2025 Encounter Details Date Type Department Care Team (Late st Contact Info) Description 06/07/2025 Refill [facility]INE [address] [place] [address] Manas Jenkins MD [address] [place] [address] Primary osteoarthritis of right knee; [...] Mallory Relationship: Self Best call back number: [phone] Requested Prescriptions: Requested Prescriptions Pending Prescriptions Disp Refills traMADol (ULTRAM) 50 MG tablet 90 tablet 0 Sig: Take 1 tablet by mouth Every 8 (Eight) Hours As Needed for Moderate Pain. Pharmacy where request should be sent: [facility] [place] - [address] [facility] - [phone] [facility] [phone] FX Last office visit with prescribing clinician: [...] documented as of this encounter Care Teams Parachute Repairer Relationship Specialty Start Date End Date Manas Jenkins MD [facility] [place] [address] PCP - General Family Medicine 05/02/22 documented as of this encounter
--- OUTSIDE RECORDS SUMMARY | 2025-07-07 10:25 | XMS_ITS | Encounter Summary ---
Author Organization [facility] Address [address] [place] [address] Care Team Providers Care Small Lot Operator Name Role Phone Manas Jenkins MD Primary Care Provider + Encounter Details Date Type Department Care Team (Late st Contact Info) Description 06/10/2025 Results Follow-Up [facility] [address] [place] [address] Manas Jenkins MD [address] [place] [address] 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 Tobacco Use Types [...] as of this encounter Care Teams Small Lot Operator Relationship Specialty Start Date End Date Manas Jenkins MD [address] [place] [address] PCP - General Family Medicine 05/02/22 documented as of this encounter
--- OUTSIDE RECORDS SUMMARY | 2025-07-07 10:25 | XMS_ITS | Clinical Summary ---
Author Organization [facility] Address [address] [place] [id number] Care Team Providers Care Mule Operator Name Role Phone Manas Jenkins MD Primary Care Provider [phone] Source Comments This information has been disclosed [...] therelease of HIV test results or diagnoses. 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 - Hold home linzess resume upon [...] failure 06/2024 Coronary artery disease invo lving stillaguamish coronary artery of still[place] heart without angina pectoris 02/26/2023 Assessment & [...] - 06/30/2025 11:59 PM EDT Hospital Encounter [facility] [address] [place] [phone] System, Provider Not In Discharge Disposition: Home or Self Care WITHOUT Home Care Services 06/30/2025 4:34 PM EDT - 06/30/2025 4:36 PM EDT Hospital Encounter [facility] [address] [place] [phone] System, Provider Not In Discharge Disposition: Home or Self Care WITHOUT Home Care Services 06/30/2025 4:34 PM EDT - 06/30/2025 4:36 PM EDT Hospital Encounter [facility] [address] [place] [phone] System, Provider Not In Discharge Disposition: Home or Self Care WITHOUT Home Care Services 05/25/2025 6:40 PM EDT - 05/28/2025 1:38 PM EDT Hospital Encounter [facility] [address] [place] [phone] Willem Shin DO Ahmad, Yousef, MD Mehta, Rahul Kaufman MD Mastocytosis (Primary Dx); Shock ([facility]); Elevated LFTs Discharge Disposition: Home WITH Home [...] any time in the past 12 [address], were you homeless or living in a mcc (including now)? No 05/25/2025 Comments No Sex [...] COVID-19 ( - season) 2024 Immunization: Influenza ([employer]) (#1) 2025 Immunization: DTaP/Tdap/Td (2 - Td or Tdap) 01/23/2034 01/24/2024 Hepatitis C Screening ([employer]) Completed Procedures Procedure Name Priority Date/Time Associated [...] - 5.7 g/dL 05/28/2025 6:06 AM EDT [facility] Bilirubin, Indirect 0.62 0.00 - 1.10 mg/dL 05/28/2025 6:06 AM EDT [facility] Plasma 05/28/2025 4:27 AM EDT 05/28/2025 5:27 AM EDT us Pritesh Mosquera DO LAB BLOOD ORDERABLES Final Resu lt [facility] [address] [place] [address], [facility] * (ABNORMAL) Renal Function Panel w/EGFR (05/28/2025 4:27 AM EDT) Only the most recent of6 resultswithin the time period is included. Sodium 139 133 - 146 mmol/L 05/28/2025 6:06 AM EDT [facility] Potassium 4.3 3.5 - 5.3 mmol/L 05/28/2025 6:06 AM EDT [facility] Comment:Hemolysis Present: R esults may be influenced artificially. Recommend recollection as clinically indicated. Chloride 108 98 - 110 mmol/L 05/28/2025 6:06 AM EDT [facility] CO2 22 21 - 33 mmol/L 05/28/2025 6:06 AM EDT [facility] Anion Gap 9 3 - 16 mmol/L 05/28/2025 6:06 AM EDT [facility] BUN 12 7 - 25 mg/dL 05/28/2025 6:06 AM EDT [facility] Creatinine 0.71 0.60 - 1.30 mg/dL 05/28/2025 6:06 AM EDT [facility] Glucose 81 70 - 100 mg/dL 05/28/2025 6:06 AM EDT [facility] Calcium 8.3(L) 8.6 - 10.3 mg/dL 05/28/2025 6:06 AM EDT [facility] Phosphorus 2.7 2.1 - 4.5 mg/dL 05/28/2025 6:06 AM EDT [facility] Comment:HEMOLYSIS EVIDENT. R ESULTS MAY BE INFLUENCED. Albumin 3.2(L) 3.5 - 5.7 g/dL 05/28/2025 6:06 AM EDT [facility] Osmolality, Calculated 287 278 - 305 mOsm/kg 05/28/2025 6:06 AM EDT [facility] EGFR >90 05/28/2025 6:06 AM EDT [facility] Comment: As of 2022, the estimated [...] [place] LAB BLOOD ORDERABLES Final Resu lt [facility] [address] * (ABNORMAL) CBC (05/28/2025 4:27 AM EDT) Only the most recent of4 resultswithin the time period is included. WBC 9.0 3.8 - 10.8 10E3/uL 05/28/2025 5:38 AM EDT [facility] RBC 3.02(L) 3.80 - 5.10 10E6/uL 05/28/2025 5:38 AM EDT [facility] Hemoglobin 9.2(L) 11.7 - 15.5 g/dL 05/28/2025 5:38 AM EDT [facility] Hematocrit 27.9(L) 35.0 - 45.0 % 05/28/2025 5:38 AM EDT [facility] MCV 92.6 80.0 - 100.0 fL 05/28/2025 5:38 AM EDT [facility] MCH 30.6 27.0 - 33.0 pg 05/28/2025 5:38 AM EDT [facility] MCHC 33.1 32.0 - 36.0 g/dL 05/28/2025 5:38 AM EDT [facility] RDW 18.2(H) 11.0 - 15.0 % 05/28/2025 5:38 AM EDT [facility] Platelets 235 140 - 400 10E3/uL 05/28/2025 5:38 AM EDT [facility] MPV 8.7 7.5 - 11.5 fL 05/28/2025 5:38 AM EDT [facility] Whole Blood 05/28/2025 4:27 AM EDT 05/28/2025 5:27 AM EDT us Pritesh Still DO LAB BLOOD ORDERABLES Final Resu lt Performing Organization Address City/[facility] Co de Phone Number [facility] [address] * Magnesium (05/28/2025 4:27 AM EDT) Only the most recent of4 resultswithin the time period is included. [facility] Magnesium 2.0 1.5 - 2.5 mg/dL 05/28/2025 6:06 AM EDT [facility] Comment:HEMOLYSIS EVIDENT. R ESULTS MAY BE INFLUENCED. Plasma 05/28/2025 4:27 AM EDT 05/28/2025 5:27 AM EDT us Pritesh Still DO LAB BLOOD ORDERABLES Final Resu lt Performing Organization Address [facility] Co de Phone Number [facility] [address] * (ABNORMAL) POC Glucose Monitoring Device (05/27/2025 11:34 PM EDT) Only the most recent of4 resultswithin the time period is included. [facility] POC Glucose Monitoring Device 150(H) 70 - 100 mg/dL 05/27/2025 11:34 PM EDT [facility] Blood 05/27/2025 11:3 4 PM EDT 05/27/2025 11:34 PM EDT Willem Shin DO POINT OF CARE TEST ORDERABLE S Final Result Performing Organization Address [facility] de Phone Number [facility] [address] * Strep Pneumo-Legionella Urine Antigen (05/27/2025 2:11 PM EDT) Strept Pneumo Ag Negative Negative 05/28/2025 3:11 AM EDT [facility] Legionella Antigen Negative Negative 05/28/2025 3:11 AM EDT [facility] Urine 05/27/2025 2:11 PM EDT 05/28/2025 2:05 AM EDT Narrative [facility] - 05/28/2025 3:11 AM EDT Positive indicates detection of either Streptococcus pneumoniae antigen or Legionella pneumophila serogroup 1 antigen. Negative results do not rule out pneumococcal infection or infection with L. pneumophila serogroup 1, other serogroups of L. pneumophila, or other Legionella species. Audi Yates MD URINE ORDERABLES Final Result Performing Organization Address [facility] de Phone Number [facility] [address] * (ABNORMAL) Venous Blood Gas, Line/Syringe, STAT (05/27/2025 1:11 PM EDT) Only the most recent of4 resultswithin the time period is included. PH-Line Draw 7.27(L) 7.32 - 7.42 05/27/2025 1:21 PM EDT [facility] PCO2-Line Draw 50 41 - 51 mm Hg 05/27/2025 1:21 PM EDT [facility] PO2-Line Draw 44(H) 25 - 40 mm Hg 05/27/2025 1:21 PM EDT [facility] HCO3-Line Draw 21(L) 24 - 28 mmol/L 05/27/2025 1:21 PM EDT [facility] CO2 Content-Line Draw 25 25 - 29 mmol/L 05/27/2025 1:21 PM EDT [facility] Base Excess-Line Draw -4.0(L) -2.0 - 3.0 mmol/L 05/27/2025 1:21 PM EDT [facility] %HBO2-Line Draw 69.1 40.0 - 70.0 % 05/27/2025 1:21 PM EDT [facility] Carboxyhgb-Joi e Draw 1.1 % 05/27/2025 1:21 PM EDT [facility] Comment: CARBOXYHEMOGLOBIN (CO) REFERENCE RANGES: Non-Smokers: <2 % Smokers: <8 % TOXIC: >20 % Methemoglobin- Line Draw 0.0 0.0 - 1.5 % 05/27/2025 1:21 PM EDT [facility] Reduced Hemoglobin-Joi e Draw 29.8(H) 0.0 - 5.0 % 05/27/2025 1:21 PM EDT [facility] Venous, Line Draw 05/27/2025 1:11 PM EDT 05/27/2025 1:18 PM EDT Pritesh Mosquera DO LAB BLOOD ORDERABLES Final Resu lt [facility] [address] [place] [address], [facility] * Hepatitis B Core IgM (05/26/2025 9:04 PM EDT) Hep B Core IgM Nonreactive Nonreactive 05/26/2025 10:32 PM EDT [facility] Serum 05/26/2025 9:04 PM EDT 05/26/2025 9:07 PM EDT Narrative [facility] - 05/26/2025 10:32 PM EDT IgM anti-HBc not detected. Does not exclude the possibility of exposure to or infection with HBV. Cookie Abdul MD LAB BLOOD ORDERABLES Final Resu lt [facility] [address] [facility] * (ABNORMAL) Hepatitis B Core Antibody (05/26/2025 9:04 PM EDT) Only the most recent of2 resultswithin the time period is included. Pathologist [facility] Hep B Core Total Ab Reactive( A) Nonreactive 05/27/2025 12:02 AM EDT [facility] Comment: Health Department notified in accordance with reportable infectious disease guidelines. Health Department notified in accordance with reportable infectious disease guidelines. Serum 05/26/2025 9:04 PM EDT 05/26/2025 9:07 PM EDT [facility] - 05/27/2025 12:02 AM EDT A reactive final interpretation indicates presumptive evidence of HBV; anti-HBc antibodies were detected in the sample which suggests either on-going or previous HBV infection. Cookie Abdul MD LAB BLOOD ORDERABLES Final Resu lt Performing Organization Address [facility] Co de Phone Number [facility] [address] [facility] * Hepatitis A IgM (05/26/2025 3:02 PM EDT) [facility] Hep A IgM Nonreactive Nonreactive 05/26/2025 7:36 PM EDT [facility] Serum 05/26/2025 3:02 PM EDT 05/26/2025 3:06 PM EDT [facility] - 05/26/2025 7:36 PM EDT IgM anti-HAV not detected. Does not exclude the possibility of exposure to or infection with HAV. Levels of IgM anti-HAV may be below the cut-off in early infection. Lewis Connelly MD LAB BLOOD ORDERABLES Final Resul t Performing Organization Address City/[facility]/ZIP Co de Phone Number [facility] [address] [facility]. [address] * Hepatitis C Antibody (05/26/2025 3:02 PM EDT) HCV Ab Nonreactive Nonreactive 05/26/2025 7:36 PM EDT [facility] Comment:Health Department no tified in accordance with reportable infectious disease guidelines. Serum 05/26/2025 3:02 PM EDT 05/26/2025 3:06 PM EDT [facility] - 05/26/2025 7:36 PM EDT Antibodies to HCV not detected; does not exclude the possibility of exposure to HCV. us Lewis Connelly MD LAB BLOOD ORDERABLES Final Resul t Performing Organization Address [facility] Co de Phone Number [facility] [address] [place] [address]. [address] * (ABNORMAL) Hepatitis B Surface Antibody, Quantitative (05/26/2025 3:02 PM EDT) Hep B S Ab Reactive( A) Nonreactive 05/26/2025 7:37 PM EDT [facility] HBSAB NUMBER >500.00(H ) 0.00 - 7.99 mIU/mL 05/26/2025 7:37 PM EDT [facility] Serum 05/26/2025 3:02 PM EDT 05/26/2025 3:06 PM EDT [facility] - 05/26/2025 7:37 PM EDT Individual is considered immune to HBV infection. us Lewis Connelly MD LAB BLOOD ORDERABLES Final Resul t Performing Organization Address City/[facility]/ZIP Co de Phone Number [facility] [address] [place] [address]. [address] * Hepatitis B Surface Antigen (05/26/2025 3:02 PM EDT) Hep B Surface Ag Nonreactive Nonreactive 05/26/2025 7:36 PM EDT [facility] Comment:Health Department no tified in accordance with reportable infectious disease guidelines. Serum 05/26/2025 3:02 PM EDT 05/26/2025 3:06 PM EDT [facility] - 05/26/2025 7:36 PM EDT Specimen is considered negative for HBsAg. Lewis Connelly MD LAB BLOOD ORDERABLES Final Resul t Performing Organization Address City/[facility]/ZIP Co de Phone Number [facility] [address] * Protime-INR (05/26/2025 3:02 PM EDT) Only the most recent of2 resultswithin the time period is included. Protime 14.6 12.1 - 15.1 seconds 05/26/2025 4:00 PM EDT [facility] INR 1.1 0.9 - 1.1 05/26/2025 4:00 PM EDT [facility] Comment: RECOMMENDED THERAPEUTIC RANGES USING INR : Stable oral anticoagulant therapy: 2.0 - 3.0 Mechanical prosthetic heart valve: 2.5 - 3.5 Recurrent acute myocardial infarction: 2.5 - 3.5 Plasma 05/26/2025 3:02 PM EDT 05/26/2025 3:06 PM EDT us Pritesh Mosquera DO LAB BLOOD ORDERABLES Final Resu lt Performing Organization Address [facility] Co de Phone Number [facility] [address] [facility]. [address] * Lactic Acid (05/26/2025 10:08 AM EDT) Only the most recent of2 resultswithin the time period is included. Lactate 0.8 0.5 - 2.2 mmol/L 05/26/2025 10:40 AM EDT [facility] Plasma 05/26/2025 10:0 8 AM EDT 05/26/2025 10:17 AM EDT us Pritesh Mosquera DO LAB BLOOD ORDERABLES Final Resu lt Performing Organization Address City/[facility]/ZIP Co de Phone Number [facility] [address] * ECHO COMPLETE W/ CONTRAST (05/26/2025 8:56 AM EDT) Anatomical Region Laterality Modality Chest Ultrasound 05/26/2025 8:13 AM EDT Narrative 05/26/2025 9:39 AM EDT * [facility]* [address] [place] [address] Transthoracic Echocardiogram Patient: Laura Mallory Room: [facility] Height: 65in MR Number: [id number] : 1960 Weight: 271lb Account: [id number] Gender: F BP: 91 / 59 Study Date: 05/26/2025 Age: 64 BSA: 2.25m^2 Referring physician: Cookie Abdul Interpreting physician: Eliu Burns MD PERFORMING Eliu Burns MD REFUSE AND RECYCLING WORKER Marion Adam ORDERING Cokoie Abdul REFERRING Cookie Abdul ATTENDING Eliud Lopez Evan Lynn Procedure:TRANSTHORACIC ECHO (TTE) Order: Accession COMPLETE Number:[id number] Indications: Heart Failure unspecified (I50.9). PMH: Coronary [...] Reviewed and confirmed by Eliu Burns MD [id number] Procedure Note Eliu Burns MD - 05/26/2025 * [facility]* [address] [place] [address] Transthoracic Echocardiogram Patient: Laura Mallory Room: NH22 Height: 65in MR Number: [id number] : 1960 Weight: 271lb Account: [id number] Gender: F BP: 91 / 59 Study Date: 05/26/2025 Age: 64 BSA: 2.25m^2 Referring physician: Cookie Abdul Interpreting physician: Eliu Burns MD PERFORMING Eliu Burns MD REFUSE AND RECYCLING WORKER Marion Adam ORDERING Cookie Abdul REFERRING Cookie Abdul ATTENDING Eliud Lopez Evan Lynn Procedure:TRANSTHORACIC ECHO (TTE) Order: Accession COMPLETE Number:[id number] Indications: Heart Failure unspecified (I50.9). PMH: Coronary [...] Reviewed and confirmed by Eliu Burns MD [id number] Cookie Abdul MD CV ECHO ORDERABLES Final Result * (ABNORMAL) MRSA/Staph aureus DNA ??? Diagnostic testing for pneumonia (05/26/2025 3:33 AM EDT) MRSA, PCR Negative Negative 05/26/2025 7:00 AM EDT [facility] Staph Aureus, PCR Positive(A) Negative 05/26/2025 7:00 AM EDT [facility] Comment:Test method is a FDA approved amplified DNA assay. Nares Swab BOTH ANTERIOR NARES / Unknown 05/26/2025 3:33 AM EDT 05/26/2025 5:14 AM EDT Narrative [facility] - 05/26/2025 7:00 AM EDT Diagnosis of MRSA Pneumonia->Yes - Place [id number] (this order) us Cookie Abdul MD MICROBIOLOGY - GENERAL ORDERABL ES Final Result Performing Organization Address City/[facility]/ZIP Co de Phone Number [facility] [address] [facility]. [address] * (ABNORMAL) Iron Studies (Iron + TIBC) (05/26/2025 3:33 AM EDT) Iron 38(L) 50 - 212 ug/dL 05/26/2025 6:07 AM EDT [facility] % Iron Saturation 12.2(L) 15.0 - 55.0 % 05/26/2025 6:07 AM EDT [facility] TIBC 311 265 - 497 ug/dL 05/26/2025 6:07 AM EDT [facility] Serum 05/26/2025 3:33 AM EDT 05/26/2025 3:40 AM EDT us Cookei Abdul MD LAB BLOOD ORDERABLES Final Resu lt [facility] [address] [facility]. [address] * Folate (Folic Acid) (05/26/2025 3:33 AM EDT) Folic Acid 8.60 5.90 - 24.80 ng/mL 05/26/2025 4:41 AM EDT [facility] Serum 05/26/2025 3:33 AM EDT 05/26/2025 3:38 AM EDT us Cookie Abdul MD LAB BLOOD ORDERABLES Final Resu lt [facility] [address] [facility] [address] * Ferritin (05/26/2025 3:33 AM EDT) Ferritin 250.6 11.0 - 306.8 ng/mL 05/26/2025 4:38 AM EDT [facility] Serum 05/26/2025 3:33 AM EDT 05/26/2025 3:38 AM EDT us Cookie Abdul MD LAB BLOOD ORDERABLES Final Resu lt Performing Organization Address [facility] Co de Phone Number [facility] [address] [place] [facility]. [address] * Vitamin B12 (05/26/2025 3:33 AM EDT) Vitamin B-12 730 180 - 914 pg/mL 05/26/2025 4:42 AM EDT [facility] Serum 05/26/2025 3:33 AM EDT 05/26/2025 3:38 AM EDT us Cookie Abdul MD LAB BLOOD ORDERABLES Final Resu lt Performing Organization Address City/[facility]/ZIP Co de Phone Number [facility] [address] * (ABNORMAL) High Sensitivity Troponin (05/26/2025 12:43 AM EDT) Only the most recent of2 resultswithin the time period is included. High Sensitivity Troponin 17(H) 0 - 14 ng/L 05/26/2025 1:28 AM EDT [facility] Serum 05/26/2025 12:4 3 AM EDT 05/26/2025 12:56 AM EDT us Cookie Abdul MD LAB BLOOD ORDERABLES Final Resu lt Performing Organization Address [facility] de Phone Number [facility] [address] * (ABNORMAL) NT-proBNP/Sacubitril/Valsartan (05/26/2025 12:43 AM EDT) NT Pro BNP 1142(H) 0 - 301 pg/mL 05/27/2025 7:40 AM EDT [facility] Comment: The following cut-points have been [...] AM EDT 05/27/2025 8:07 AM EDT Narrative [facility] - 05/27/2025 8:07 AM EDT PERFORMED AT: [facility] [id number] COMPUTER VIDEO GAME DESIGNER: Dave Escudero, PhD PHONE: [phone] Cookie Abdul MD LAB BLOOD ORDERABLES Final Resu lt Performing Organization Address [facility] Co de Phone Number [facility] [address] [facility]. [address] * (ABNORMAL) Gamma GT (05/26/2025 12:43 AM EDT) GGT 307(H) 9 - 64 U/L 05/26/2025 1:37 AM EDT [facility] Serum 05/26/2025 12:4 3 AM EDT 05/26/2025 12:52 AM EDT us Cookie Abdul MD LAB BLOOD ORDERABLES Final Resu lt [facility] [address] [place] [address], [facility] * (ABNORMAL) Urinalysis w/Rfl to Microscopic (05/25/2025 10:32 PM EDT) Color, UA Yellow Yellow,Straw 05/25/2025 10:55 PM EDT [facility] Clarity, UA Cloudy(A) Clear 05/25/2025 10:55 PM EDT [facility] Specific [place], UA >1.035(H) 1.005 - 1.035 05/25/2025 10:55 PM EDT [facility] pH, UA 6.0 5.0 - 8.0 05/25/2025 10:55 PM EDT [facility] Protein, UA 30(A) Negative mg/dL 05/25/2025 10:55 PM EDT [facility] Glucose, UA Negative Negative mg/dL 05/25/2025 10:55 PM EDT [facility] Ketones, UA Negative Negative mg/dL 05/25/2025 10:55 PM EDT [facility] Bilirubin, UA Negative Negative 05/25/2025 10:55 PM EDT [facility] Blood, UA Moderate(A) Negative 05/25/2025 10:55 PM EDT [facility] Nitrite, UA Negative Negative 05/25/2025 10:55 PM EDT [facility] Urobilinogen, UA 3.0(H) 0.2 - 1.9 mg/dL 05/25/2025 10:55 PM EDT [facility] Leukocyte Esterase, UA Negative Negative 05/25/2025 10:55 PM EDT [facility] RBC, UA 41(H) 0 - 3 /HPF 05/25/2025 10:55 PM EDT [facility] WBC, UA 1 0 - 5 /HPF 05/25/2025 10:55 PM EDT [facility] Squam Epithel, UA 1 0 - 5 /HPF 05/25/2025 10:55 PM EDT [facility] Bacteria, UA Rare(A) None Seen /HPF 05/25/2025 10:55 PM EDT [facility] Urine 05/25/2025 10:3 2 PM EDT 05/25/2025 10:43 PM EDT us Cookie Abdul MD URINE ORDERABLES Final Result Performing Organization Address [facility] Co de Phone Number [facility] [address] * Urine culture (05/25/2025 10:32 PM EDT) Culture Result No Growth After 2 Days [facility] Newly Placed Ni Urine URINE SPECIMEN / Unknown 05/25/2025 10:32 PM EDT 05/25/2025 11:33 PM EDT Cookie Abdul MD MICROBIOLOGY - GENERAL ORDERABL ES Final Result Performing Organization Address [facility] Co de Phone Number [facility] [address] [place] [address] * ECG 12 lead (MUSE) (05/25/2025 9:52 PM EDT) 05/25/2025 9:52 PM EDT Narrative MUSE - 05/26/2025 10:45 AM EDT Ventricular Rate: 68 BPM Atrial Rate: 68 BPM P-R Interval: 198 ms QRS Duration: 80 ms QT: 446 ms QTc: 474 ms P Ava: 58 degrees R Ava: -28 degrees T Ava: 6 degrees Diagnosis Line: NORMAL SINUS RHYTHM ^ LOW VOLTAGE QRS COMPLEXES ^ BORDERLINE ECG ^ No previous ECGs available ^ Confirmed by Conner DONATO MD ([id number]) on 05/26/2025 10:45:34 AM Denisse Albert DO ECG ORDERABLES Final Result Performing Organization Address City/[facility] Co de Phone Number MUSE * HCG Urine, Qualitative (05/25/2025 8:09 PM EDT) hCG Qualitative -Clinitek Negative Negative 05/25/2025 8:30 PM EDT [facility] Urine 05/25/2025 8:09 PM EDT 05/25/2025 8:14 PM EDT Denisse Albert DO URINE ORDERABLES Final Result Performing Organization Address City/[facility]/ZIP Co de Phone Number [facility] [address] * ABO/Rh (05/25/2025 7:21 PM EDT) ABO Grouping O 05/25/2025 8:07 PM EDT [facility] Rh Type Negative 05/25/2025 8:07 PM EDT [facility] Blood 05/25/2025 7:21 PM EDT 05/25/2025 7:45 PM EDT Denisse Albert DO BLOOD BANK TEST ORDERABLES Final Result Performing Organization Address [facility] Co de Phone Number [facility] [address] * #2 Blood culture-Peripheral site 2 (05/25/2025 7:21 PM EDT) Only the most recent of2 resultswithin the time period is included. Culture Result No Growth After 5 Days [facility] Blood BLOOD SPECIMEN / Unknown 05/25/2025 7:21 PM EDT 05/25/2025 8:07 PM EDT Denisse Albert DO MICROBIOLOGY - GENERAL ORDERABLE S Final Result Performing Organization Address City/[facility] [facility] Co de Phone Number [facility] [address] * Antibody Screen (05/25/2025 7:21 PM EDT) Antibody Screen Negative 05/25/2025 8:23 PM EDT [facility] Blood 05/25/2025 7:21 PM EDT 05/25/2025 7:45 PM EDT Narrative [facility] - 05/25/2025 8:28 PM EDT Testing performed by [facility] Transfusion Service Denisse Albert DO BLOOD BANK TEST ORDERABLES Final Result [facility] [address] * (ABNORMAL) B Natriuretic Peptide (05/25/2025 7:21 PM EDT) BNP 162(H) 0 - 100 pg/mL 05/25/2025 8:31 PM EDT [facility] Comment: BNP may be increased in the presence of sacubitril/valsartan (Entresto). Please interpret accordingly. Plasma 05/25/2025 7:21 PM EDT 05/25/2025 7:44 PM EDT Narrative [facility] - 05/25/2025 8:31 PM EDT The presence of high concentrations of biotin may cause falsely lowered BNP results. Biotin interference may be seen if an individual is taking >5 mg biotin per day. Interpret BNP results in the context of the patient's clinical presentation. Denisse Albert ZIIB[facility] LAB BLOOD ORDERABLES Final Resul t Performing Organization Address City/[facility]/ZIP Co de Phone Number [facility] [address] [facility] * Amylase (05/25/2025 7:21 PM EDT) Amylase 22 16 - 117 U/L 05/25/2025 8:23 PM EDT [facility] Serum 05/25/2025 7:21 PM EDT 05/25/2025 7:56 PM EDT Denisse Albert ZIIB[facility] LAB BLOOD ORDERABLES Final Resul t [facility] [address] * Lipase (05/25/2025 7:20 PM EDT) Lipase 6 4 - 82 U/L 05/25/2025 8:2 3 PM EDT [facility] Plasma 05/25/2025 7:20 PM EDT 05/25/2025 7:56 PM EDT Denisse Albert Z[facility] LAB BLOOD ORDERABLES Final Resul t Performing Organization Address [facility] Co de Phone Number [facility] [address] * Ammonia (NH3), STAT (05/25/2025 7:20 PM EDT) Ammonia 71 27 - 90 ug/dL 05/25/2025 8:04 PM EDT [facility] Plasma 05/25/2025 7:20 PM EDT 05/25/2025 7:44 PM EDT Denisse Albert [facility] BLOOD ORDERABLES Final Resul t Performing Organization Address [facility] de Phone Number [facility] [address] * (ABNORMAL) Acetaminophen Level (Tylenol), STAT (05/25/2025 7:20 PM EDT) Acetaminophen Level <10(L) 10 - 30 ug/mL 05/25/2025 8:04 PM EDT [facility] Serum 05/25/2025 7:20 PM EDT 05/25/2025 7:44 PM EDT Denisse Albert [facility] LAB BLOOD ORDERABLES Final Resul t Performing Organization Address [facility] de Phone Number [facility] [address] * X-ray Portable Chest (05/25/2025 7:10 [...] - 2.20 mmol/L 05/26/2025 5:58 AM EDT [facility] Blood, Venous 05/25/2025 6:0 7 PM EDT 05/26/2025 5:58 AM EDT Willem Shin DO POINT OF CARE TEST ORDERABLE S Final Result [facility] [address] [place] [address], [facility] * (ABNORMAL) POC TCO2 (05/25/2025 6:07 PM EDT) POC TCO2, Venous 19(L) 25 - 29 mmol/L 05/26/2025 5:58 AM EDT [facility] Blood, Venous 05/25/2025 6:0 7 PM EDT 05/26/2025 5:58 AM EDT Willem Shin DO POINT OF CARE TEST ORDERABLE S Final Result [facility] [address] * POC Sodium (05/25/2025 6:07 PM EDT) POC Sodium 140 136 - 146 mmol/L 05/26/2025 5:58 AM EDT [facility] Blood, Venous 05/25/2025 6:0 7 PM EDT 05/26/2025 5:58 AM EDT Willem Shin DO POINT OF CARE TEST ORDERABLE S Final Result Performing Organization Address City/[facility]/ZIP Co de Phone Number [facility] [address] [facility] * POC Potassium (05/25/2025 6:07 PM EDT) POC Potassium 4.0 3.5 - 5.3 mmol/L 05/26/2025 5:58 AM EDT [facility] Blood, Venous 05/25/2025 6:0 7 PM EDT 05/26/2025 5:58 AM EDT Willem Shin DO POINT OF CARE TEST ORDERABLE S Final Result Performing Organization Address City/[facility]/ZIP Co de Phone Number [facility] [address] [facility] * (ABNORMAL) POC PO2 (05/25/2025 6:07 PM EDT) POC pO2, Venous 45(H) 25 - 40 mm Hg 05/26/2025 5:58 AM EDT [facility] Blood, Venous 05/25/2025 6:0 7 PM EDT 05/26/2025 5:58 AM EDT us Willem Shin DO POINT OF CARE TEST ORDERABLE S Final Result [facility] [address] * (ABNORMAL) POC PCO2 (05/25/2025 6:07 PM EDT) POC pCO2, Venous 36(L) 41 - 51 mm Hg 05/26/2025 5:58 AM EDT [facility] Blood, Venous 05/25/2025 6:0 7 PM EDT 05/26/2025 5:58 AM EDT Willem Shin DO POINT OF CARE TEST ORDERABLE S Final Result Performing Organization Address [facility] Co de Phone Number [facility] [address] [facility] * (ABNORMAL) POC O2 SAT (05/25/2025 6:07 PM EDT) POC O2 Saturation, Venous 77(L) 95 - 98 % 05/26/2025 5:58 AM EDT [facility] Blood, Venous 05/25/2025 6:0 7 PM EDT 05/26/2025 5:58 AM EDT us Willem Shin DO POINT OF CARE TEST ORDERABLE S Final Result [facility] [address] * (ABNORMAL) POC HCO3 (05/25/2025 6:07 PM EDT) POC HCO3, Venous 18(L) 24 - 28 mmol/L 05/26/2025 5:58 AM EDT [facility] Blood, Venous 05/25/2025 6:0 7 PM EDT 05/26/2025 5:58 AM EDT us Willem Shin DO POINT OF CARE TEST ORDERABLE S Final Result [facility] [address] [facility] * POC Chloride (05/25/2025 6:07 PM EDT) Pathologist [facility] POC Chloride 107 98 - 110 mmol/L 05/26/2025 5:58 AM EDT [facility] Blood, Venous 05/25/2025 6:0 7 PM EDT 05/26/2025 5:58 AM EDT Willem Shin DO POINT OF CARE TEST ORDERABLE S Final Result Performing Organization Address [facility] Co de Phone Number [facility] [address] [facility] * (ABNORMAL) POC Base Excess (05/25/2025 6:07 PM EDT) Pathologist [facility] POC Base Excess, Venous -8(L) -2 - 3 mmol/L 05/26/2025 5:58 AM EDT [facility] Blood, Venous 05/25/2025 6:0 7 PM EDT 05/26/2025 5:58 AM EDT Willem Shin DO POINT OF CARE TEST ORDERABLE S Final Result Performing Organization Address City/[facility] Co de Phone Number [facility] [address] [facility] * POC Anion Gap (05/25/2025 6:07 PM EDT) Pathologist [facility] POC Anion Gap, Venous 15 3 - 16 mmol/L 05/26/2025 5:58 AM EDT [facility] Blood, Venous 05/25/2025 6:0 7 PM EDT 05/26/2025 5:58 AM EDT us Willem Shin DO POINT OF CARE TEST ORDERABLE S Final Result [facility] [address] [facility]. [address] * POC Sample Type (05/25/2025 6:07 PM EDT) POC Sample Type Venous 05/26/2025 5:58 AM EDT [facility] Blood, Venous 05/25/2025 6:0 7 PM EDT 05/26/2025 5:58 AM EDT us Willem Shin DO POINT OF CARE TEST ORDERABLE S Final Result Performing Organization Address [facility] Co de Phone Number [facility] [address] * (ABNORMAL) POC pH (05/25/2025 6:07 PM EDT) POC pH, Venous 7.30(L) 7.32 - 7.42 05/26/2025 5:58 AM EDT [facility] Blood, Venous 05/25/2025 6:0 7 PM EDT 05/26/2025 5:58 AM EDT Willem [facility] [place] POINT OF CARE TEST ORDERABLE S Final Result Performing Organization Address City/[facility]/ZIP Co de Phone Number [facility] [address] [facility]. [address] * (ABNORMAL) POC hematocrit (05/25/2025 6:07 PM EDT) POC Hematocrit 34.0(L) 35 - 45 % 05/26/2025 5:58 AM EDT [facility] Blood, Venous 05/25/2025 6:0 7 PM EDT 05/26/2025 5:58 AM EDT Willem Shin DO POINT OF CARE TEST ORDERABLE S Final Result [facility] [address] * POC creatinine (05/25/2025 6:07 PM EDT) POC Creatinine 1.27 0.60 - 1.30 mg/dL 05/26/2025 5:58 AM EDT [facility] Blood, Venous 05/25/2025 6:0 7 PM EDT 05/26/2025 5:58 AM EDT Willem Shin DO POINT OF CARE TEST ORDERABLE S Final Result Performing Organization Address City/[facility]/ZIP Co de Phone Number [facility] [address] [facility]. [address] * POC Ionized Calcium (05/25/2025 6:07 PM EDT) POC Ionized Calcium 4.50 4.50 - 5.30 mg/dL 05/26/2025 5:58 AM EDT [facility] Blood, Venous 05/25/2025 6:0 7 PM EDT 05/26/2025 5:58 AM EDT us Willem Shin DO POINT OF CARE TEST ORDERABLE S Final Result [facility] [address] [facility] * (ABNORMAL) POC Glucose (05/25/2025 6:07 PM EDT) POC Glucose, Venous 246(H) 70 - 100 mg/dL 05/26/2025 5:58 AM EDT [facility] Blood, Venous 05/25/2025 6:0 7 PM EDT 05/26/2025 5:58 AM EDT us Willem Shin DO POINT OF CARE TEST ORDERABLE S Final Result [facility] [address] [facility] * (ABNORMAL) POC Hemoglobin (05/25/2025 6:07 PM EDT) Pathologist [facility] POC Hemoglobin 11.6(L) 12.0 - 16.0 g/dL 05/26/2025 5:58 AM EDT [facility] Blood, Venous 05/25/2025 6:0 7 PM EDT 05/26/2025 5:58 AM EDT us Willem Shin DO POINT OF CARE TEST ORDERABLE S Final Result Performing Organization Address [facility] Co de Phone Number [facility] [address] [facility] from Last 3 Months Insurance [employer] [facility] MEDICARE A AND B [id number] [place] [id number] Advance Directives For more information, please contact: [phone] * Full Code (Latest Code Status on File) Date Activated Date Inactivated Comments 05/25/2025 6:55 PM 05/28/2025 5:44 PM Care Teams Mule Operator Relationship Specialty Start Date End Date Manas Jenkins MD [address] [place] [address] PCP - General Family Medicine 10/14/17
--- OUTSIDE RECORDS SUMMARY | 2025-07-07 10:25 | XMS_ITS | Encounter Summary ---
Author Organization Healthcare Address [address] [place] [address] Care Team Providers Care Electronic Induction Hardener Name Role Phone Stevo Salter MD Primary Care Provider [phone] Encounter Details Date Type Department Care Team (Late st Contact Info) Description 05/25/2025 Orders Only External Location [address] [place] [phone] Jarod Cazares [address] [place] [address] [id number] 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 Tobacco Use Types Packs/Day Years [...] on filedocumented in this encounter Care Teams Electronic Induction Hardener Relationship Specialty Start Date End Date Stevo Salter MD [address] [place] [address] [address] [id number] PCP - General 04/06/21 documented as of this encounter
--- OUTSIDE RECORDS SUMMARY | 2025-07-07 10:25 | XMS_ITS | Encounter Summary ---
Author Organization [facility] Address [address] [place] [address] Care Team Providers Care Garbage Collector Supervisor Name Role Phone Manas Jenkins MD Primary Care Provider + Reason for Visit * Reason Onset Date Comments HOME HEALTH VERBAL NEEDED 05/30/2025 Encounter Details Date Type Department Care Team (Late st Contact Info) Description 05/30/2025 Telephone [facility] FAMILY MEDICINE [address] [place] [address] Manas Jenkins MD [address] [place] [address] HOME HEALTH VERBAL NEEDED Social [...] - 06/06/2025 8:42 AM EDT [facility] with [facility] stated that they are out of [...] - 05/30/2025 11:03 AM EDT [place] WITH [facility] CALLED NEEDING A VERBAL TO DELAY THEIR INITIAL VISIT WITH PATIENT. THEY HAVE BEEN UNABLE TO GET IN CONTTACT WITH PATIENT YET. PLEASE CALL [phone] WHICH IS ASECURED LINE documented in this encounter Plan of Treatment Not on file documented as of this encounter Visit Diagnoses Not on filedocumented in this encounter Additional Health Concerns Assessment Noted Time PHQ-2 Depression Total Score: 1 11/27/19 24 1:57 PM EST documented as of this encounter Care Teams Garbage Collector Supervisor Relationship Specialty Start Date End Date Manas Jenkins MD [address] [address] PCP - General Family Medicine 05/02/22 documented as of this encounter
--- OUTSIDE RECORDS SUMMARY | 2025-07-07 10:25 | XMS_ITS | Encounter Summary ---
[facility] Address [address] [place] [address] Care Team Providers Care Chief Of Safety And Protection Name Role Phone Manas Jenkins MD Primary Care Provider + Reason for Visit * Reason Comments Med Refill Encounter Details Date Type Department Care Team (Late st Contact Info) Description 05/30/2025 Refill [facility] FAMILY MEDICINE [address] [place] [address] Manas Jenkins MD [address] [place] [address] 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 Tobacco Use Types [...] as of this encounter Care Teams Chief Of Safety And Protection Relationship Specialty Start Date End Date Manas Jenkins MD [address] [place] [address] PCP - General Family Medicine 05/02/22 documented as of this encounter
--- OUTSIDE RECORDS SUMMARY | 2025-07-07 10:25 | XMS_ITS | Encounter Summary ---
[facility] Organization [facility] Address [address] [place] [address] Care Team Providers Care Air Reduction Equipment Operator Name Role Phone Manas Blancas MD Primary Care Provider + Reason for Visit * Reason Onset Date Comments Med Refill 09/17/2022 Encounter Details Date Type Department Care Team (Late st Contact Info) Description 09/17/2022 Refill [facility] FAMILY MEDICINE [address] [place] [address] Manas Blancas MD [address] [place] [address] Lumbar degenerative disc disease Social [...] Mallory Relationship: Self Best call back number: [phone] Requested Prescriptions: Requested Prescriptions Pending Prescriptions Disp Refills ??? oxyCODONE-acetaminophen (PERCOCET) 10-325 MG per tablet 90 tablet 0 Sig: Take 1 tablet by mouth Every 8 (Eight) Hours As Needed for Severe Pain. ??? potassium chloride (K-DUR,KLOR-CON) 20 MEQ CR tablet 90 tablet 2 Sig: Take 1 tablet by mouth 3 (Three) Times a Day. Pharmacy where request should be sent: [facility] - [id number] [phone] [facility] [phone] Additional details provided by patient: PATIENT STATED [...] Date Manas Blancas MD [address] [place] [address] PCP - General Family Medicine 05/02/22 documented as of this encounter
--- OUTSIDE RECORDS SUMMARY | 2025-07-07 10:25 | XMS_ITS | Encounter Summary ---
[facility] Organization [facility] Address [address] [place] [address] Care Team Providers Care Event Coordinator Marketing And Sales Name Role Phone Manas Jenkins MD Primary Care Provider + Encounter Details Date Type Department Care Team (Late st Contact Info) Description 05/24/2025 Results Follow-Up [facility] FAMILY MEDICINE [address] [place] [address] Manas Jenkins MD [address] [place] [address] 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 Tobacco Use Types [...] documented as of this encounter Care Teams Event Coordinator Marketing And Sales Relationship Specialty Start Date End Date Manas Jenkins MD [address] [place] [address] PCP - General Family Medicine 05/02/22 documented as of this encounter
--- OUTSIDE RECORDS SUMMARY | 2025-07-07 10:25 | XMS_ITS | Encounter Summary ---
[facility] Organization [facility] Address [address] [place] [address] Care Team Providers Care Television Parts Tester Name Role Phone Manas Jenkins MD Primary Care Provider + Reason for Visit * Reason Comments Med Refill Encounter Details Date Type Department Care Team (Late st Contact Info) Description 06/07/2025 Refill [facility] FAMILY MEDICINE [address] [place] [address] Manas Jenkins MD [address] [place] [address] Primary osteoarthritis of right knee; [...] documented as of this encounter Care Teams Television Parts Tester Relationship Specialty Start Date End Date Manas Jenkins MD [address] [place] [address] PCP - General Family Medicine 05/02/22 documented as of this encounter
--- OUTSIDE RECORDS SUMMARY | 2025-07-07 10:25 | XMS_ITS | Encounter Summary ---
[facility] Organization [facility] Address [address] [place] [address] Care Team Providers Care Co Supervisor Grounds And Landscape Name Role Phone Manas Jenkins MD Primary Care Provider + Reason for Visit * Reason Onset Date Comments REQUEST CALL BACK 07/06/2025 Encounter Details Date Type Department Care Team (Late st Contact Info) Description 07/06/2025 Telephone [facility] FAMILY MEDICINE [address] [place] [address] Manas Jenkins MD [address] [place] [address] REQUEST CALL BACK 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 [...] BE DONE TO TREAT. CALL BACK NUMBER [phone] documented in this encounter Plan of Treatment Not on file documented as of this encounter Visit Diagnoses Not on filedocumented in this encounter Additional Health Concerns Assessment Noted Time PHQ-2 Depression Total Score: 1 11/27/19 24 1:57 PM EST documented as of this encounter Care Teams Co Supervisor Grounds And Landscape Relationship Specialty Start Date End Date Manas Jenkins MD [address] [place] [address] PCP - General Family Medicine 05/02/22 documented as of this encounter
--- OUTSIDE RECORDS SUMMARY | 2025-07-07 10:25 | XMS_ITS | Encounter Summary ---
[facility] Organization [facility] Address [address] [place] [address] Care Team Providers Care Computed Tomography Scanner Operator Name Role Phone Manas Jenkins MD Primary Care Provider + Reason for Visit * Reason Onset Date Comments Med Management 06/15/2025 Encounter Details Date Type Department Care Team (Late st Contact Info) Description 06/15/2025 Telephone [facility] FAMILY MEDICINE [address] [place] [address] Manas Jenkins MD [address] [place] [address] Med Management 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 Tobacco [...] Relationship: Emergency Contact Best call back number: [phone] What is the best time to reach [...] documented as of this encounter Care Teams Computed Tomography Scanner Operator Relationship Specialty Start Date End Date Manas Jenkins MD [address] [place] [address] PCP - General Family Medicine 05/02/22 documented as of this encounter
--- OUTSIDE RECORDS SUMMARY | 2025-07-07 10:25 | XMS_ITS | Encounter Summary ---
Author Organization [facility] Address [address] [place] [address] Care Team Providers Care Education Supervisor Name Role Phone Manas Jenkins MD Primary Care Provider + Reason for Visit * Reason Comments Med Refill Encounter Details Date Type Department Care Team (Late st Contact Info) Description 05/10/2025 Refill [facility] FAMILY MEDICINE [address] [place] [address] Manas Jenkins MD [address] [place] [address] 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 Tobacco Use Types [...] documented as of this encounter Care Teams Education Supervisor Relationship Specialty Start Date End Date Manas Jenkins MD [address] [place] [address] PCP - General Family Medicine 05/02/22 documented as of this encounter
--- OUTSIDE RECORDS SUMMARY | 2025-07-07 10:25 | XMS_ITS | Encounter Summary ---
Author Organization [facility] Address [address] [place] [address] Care Team Providers Care Tv Host Name Role Phone Manas Jenkins MD Primary [...] documented as of this encounter Care Teams Tv Host Relationship Specialty Start Date End Date Manas Jenkins MD [address] [place] [address] PCP - General Family Medicine 05/02/22 documented as of this encounter
--- OUTSIDE RECORDS SUMMARY | 2025-07-07 10:25 | XMS_ITS | Encounter Summary ---
Author Organization [facility] Address [address] [place] [address] Care Team Providers Care Skiver Heel Tap Name Role Phone Manas Jenkins MD Primary [...] documented as of this encounter Care Teams Skiver Heel Tap Relationship Specialty Start Date End Date Manas Jenkins MD [address] [place] [address] PCP - General Family Medicine 05/02/22 documented as of this encounter
--- OUTSIDE RECORDS SUMMARY | 2025-07-07 10:25 | XMS_ITS | Encounter Summary ---
[facility] Organization [facility] Address [address] [place] [address] Care Team Providers Care Research Technologist Name Role Phone Manas Blancas MD Primary Care Provider + Reason for Visit * Reason Onset Date Comments MEDICATION QUESTION 06/22/2025 Encounter Details Date Type Department Care Team (Late st Contact Info) Description 06/22/2025 Telephone [facility] FAMILY MEDICINE [address] [place] [address] Manas Blancas MD [address] [place] [address] MEDICATION QUESTION 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 Tobacco [...] Relationship: Emergency Contact Best call back number: [phone] Which medication are you concerned about: LORAZEPAM [...] documented as of this encounter Care Teams Research Technologist Relationship Specialty Start Date End Date Manas Blancas MD [place] [address] PCP - General Family Medicine 05/02/22 documented as of this encounter
--- OUTSIDE RECORDS SUMMARY | 2025-07-07 10:25 | XMS_ITS | Encounter Summary ---
Author Organization [facility] Address [address] [place] [address] Care Team Providers Care Lift Manager Name Role Phone Manas Jenkins MD Primary Care Provider + Reason for Visit * Reason Onset Date Comments Leg Swelling 06/15/2025 Encounter Details Date Type Department Care Team (Late st Contact Info) Description 06/15/2025 Telephone [facility] FAMILY MEDICINE [address] [place] [address] Manas Jenkins MD [address] [place] [address] Leg Swelling 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 Tobacco [...] Relationship: Emergency Contact Best call back number: [phone] What was the call regarding: ADAL NOTICED [...] documented as of this encounter Care Teams Lift Manager Relationship Specialty Start Date End Date Manas Jenkins MD [address] [facility] [place] [address] PCP - General Family Medicine 05/02/22 documented as of this encounter
--- OUTSIDE RECORDS SUMMARY | 2025-07-07 10:25 | XMS_ITS | Encounter Summary ---
[facility] Address [address] [place] [address] Care Team Providers Care High [employer] Social Science Teacher Name Role Phone Manas Jenkins MD Primary Care Provider + Reason for Visit * Reason Onset Date Comments Med Refill 06/27/2025 Encounter Details Date Type Department Care Team (Late st Contact Info) Description 06/27/2025 Refill [facility] FAMILY MEDICINE [address] [place] [address] Manas Jenkins MD [address] [place] [address] 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 Tobacco Use Types [...] 0 Pharmacy where request should be sent: [facility] - [id number] [phone] [facility] [phone] FX Last office visit with prescribing clinician: [...] documented as of this encounter Care Teams High School Social Science Teacher Relationship Specialty Start Date End Date Manas Jenkins MD [address] [place] [address] PCP - General Family Medicine 05/02/22 documented as of this encounter
[2025-07-07] MEDS: SACUBITRIL/VALSARTAN 24-26MG TABLET 1 EACH PO ×2 (10:26→20:07)
[2025-07-07] MEDS: FUROSEMIDE 40 MG TABLET PO (10:26)
[2025-07-07] MEDS: ASPIRIN EC 81MG TABLET 81 MG PO (10:26)
--- OUTSIDE RECORDS SUMMARY | 2025-07-07 10:26 | XMS_ITS | Clinical Summary ---
Author Organization [facility] Address [address] [place] [address] Phone Care Team Providers Care Outside Parts Salesman Name Role Phone Javi Corrales MD Primary Care Physician [phone] [ ] Conditions or Problems No information available. Medications No information available. Medications Administered No information available. Allergies, Adverse Reactions, Alerts No information available. Results No information available. Plan of Care No information available. Procedures No information available. Vital Signs No information available. Immunizations No information available. Advance Directives No information available.
[2025-07-07] MEDS: FAMOTIDINE 20MG TABLET 20 MG PO (10:27)
--- OUTSIDE RECORDS SUMMARY | 2025-07-07 10:27 | XMS_ITS | Encounter Summary ---
[facility] Address [address] [place] [address] Care Team Providers Care Union Laborer Name Role Phone Manas Jenkins MD Primary Care Provider + Reason for Visit * Reason Comments Med Refill Encounter Details Date Type Department Care Team (Late st Contact Info) Description 08/19/2022 Refill [facility] [address] [place] [address] Manas Jenkins MD [address] [place] [address] Lumbar degenerative disc disease Social [...] documented as of this encounter Care Teams Union Laborer Relationship Specialty Start Date End Date Manas Jenkins MD [address] [place] [address] PCP - General Family Medicine 05/02/22 documented as of this encounter
--- OUTSIDE RECORDS SUMMARY | 2025-07-07 10:27 | XMS_ITS | Clinical Summary ---
Author Organization Healthcare Address [address] [id number] Care Team Providers Care Silo Operator Name Role Phone Stevo Salter MD Primary Care Provider [phone] Encounters Date Type Department Care Team Description 05/25/2025 Orders Only External Location [address] [place] [address] Jarod Cazares from Last 3 Months Social [...] 2009 UKY-Zoster Vaccines (1 of 2) 2009 [id number]-[id number] Vaccine (1 - 20 24-25 season) 2024 [...] Ultrasound 05/25/2025 2:17 PM EDT Jarod Cazares [facility] US PROCEDURES Final Result from Last 3 Months Insurance MEDICARE [place] Care Teams Silo Operator Relationship Specialty Start Date End Date Stevo Salter MD [address] [place] [address] [address] [place] [address] PCP - General 04/06/21
--- OUTSIDE RECORDS SUMMARY | 2025-07-07 10:27 | XMS_ITS | Encounter Summary ---
[facility] Organization [facility] Address [address] [place] [address] Care Team Providers Care Basin Operator Name Role Phone Manas Jenkins MD Primary Care Provider + Reason for Visit * Reason Onset Date Comments Med Refill 05/22/2022 New Med Request 05/22/2022 Encounter Details Date Type Department Care Team (Late st Contact Info) Description 05/22/2022 Refill [facility] [address] [place] [address] Manas Jenkins MD [address] [place] [address] Lumbar degenerative disc disease Social [...] Mallory Relationship: Self Best call back number: [phone] What medication are you requesting: What are your current symptoms: COUGHING AND CHEST COLD (CONGESTION) AND A SMALL WHEEZE How long have you been experiencing symptoms: 2 DAYS Have you had these symptoms before: [x] Yes [] No Have you been treated for these symptoms before: [x] Yes [] No If a prescription is needed, what is your preferred pharmacy and phone number: [facility] [address] [facility] - [phone] [facility] [phone] FX Additional notes: PLEASE CALL TO ADVISE * Telephone Encounter - Joel Waldron RegSched Rep - 05/22/2022 1:34 PM EDT Caller: Laura Mallory Relationship: Self Best call back number: [phone] Requested Prescriptions: Requested Prescriptions Pending Prescriptions Disp Refills ??? oxyCODONE-acetaminophen (Percocet) 10-325 MG per tablet 90 tablet 0 Sig: Take 1 tablet by mouth Every 8 (Eight) Hours As Needed for Severe Pain . Pharmacy where request should be sent: [facility] [address] [facility] - [phone] [facility] [phone] FX Additional details provided by patient: Does [...] documented as of this encounter Care Teams Basin Operator Relationship Specialty Start Date End Date Manas Jenkins MD [address] [place] [address] [place] [address] PCP - General Family Medicine 05/02/22 documented as of this encounter
--- OUTSIDE RECORDS SUMMARY | 2025-07-07 10:27 | XMS_ITS | Encounter Summary ---
[facility] [address] [place] [address] Care Team Providers Care Sap Technical Architect Name Role Phone Manas Jenkins MD Primary Care Provider + Reason for Visit * Reason Onset Date Comments Med Refill 01/16/2023 Encounter Details Date Type Department Care Team (Late st Contact Info) Description 01/16/2023 Refill [facility] [address] [place] [address] Manas Jenkins MD [address] [place] [address] Migraine without aura and without [...] Mallory Relationship: Self Best call back number: [phone] Requested Prescriptions: Requested Prescriptions Pending Prescriptions Disp [...] Day. Pharmacy where request should be sent: [facility] [address] [phone] PH - [phone] FX Additional details provided by patient: PATIENT [...] documented as of this encounter Care Teams Sap Technical Architect Relationship Specialty Start Date End Date Manas Jenkins MD [address] [facility] [place] [address] PCP - General Family Medicine 05/02/22 documented as of this encounter
--- OUTSIDE RECORDS SUMMARY | 2025-07-07 10:27 | XMS_ITS | Clinical Summary ---
Author Organization [facility] Address [address] [place] [address] Care Team Providers Care Seo Strategist Name Role Phone Manas Jenkins MD Primary [...] Type Department Care Team Description 07/06/2025 Telephone [facility] MEDICINE [address] [place] [address] Manas Jenkins MD REQUEST CALL BACK 06/30/2025 10:00 AM EDT Office Visit [facility] [address] [place] [address] Manas Jenkins MD Cystitis (Primary Dx); Chronic diastolic (congestive) heart failure; Nausea; Hypotension, unspecified hypotension type 06/30/2025 Travel 06/27/2025 Refill [facility] [address] [place] [address] Manas Jenkins MD 06/27/2025 Telephone [facility] [address] [place] [address] Manas Jenkins MD CALLBACK 06/26/2025 Refill [facility] [address] [place] [address] Manas Jenkins MD 06/22/2025 Telephone [facility] [address] [place] [address] Manas Jenkins MD MEDICATION QUESTION 06/17/2025 Refill [facility] [address] [place] [address] Mansa Jenkins MD 06/15/2025 Telephone [facility] [address] [place] [address] Manas Jenkins MD Med Management 06/15/2025 Telephone [facility] [address] [place] [address] Manas Jenkins MD Leg Swelling 06/10/2025 Results Follow-Up [facility] [address] [place] [address] Manas Jenkins MD 06/09/2025 11:15 AM EDT Office Visit [facility] [address] [place] [address] Manas Jenkins MD Urinary tract infection without hematuria, site unspecified (Primary Dx); Pneumonia of both lungs due to infectious organism, unspecified part of lung; Hypocalcemia; Shock liver; Physical deconditioning; Primary osteoarthritis of right knee; Chronic right-sided low back pain with right-sided sciatica; Metabolic encephalopathy; Hypotension due to drugs; Anemia, unspecified type 06/09/2025 Travel 06/07/2025 Refill [facility] [address] [place] [address] Manas Jenkins MD Primary osteoarthritis of right knee; Chronic right-sided low back pain with right-sided sciatica 06/07/2025 Refill [facility] [address] [place] [address] Manas Jenkins MD Primary osteoarthritis of right knee; Chronic right-sided low back pain with right-sided sciatica 05/30/2025 Refill [facility] [address] [place] [address] Manas Jenkins MD 05/30/2025 Telephone [facility] [address] [place] [address] Manas Jenkins MD HOME HEALTH VERBAL NEEDED 05/24/2025 Results Follow-Up [facility] [address] [place] [address] Manas Jenkins MD 05/20/2025 4:00 PM EDT Office Visit [facility] [address] [place] [address] Manas Jenkins MD Hypercholesterolemia (Primary Dx); Chronic right-sided low back pain with right-sided sciatica; Hyperglycemia; Moderate persistent asthma without complication; Bilateral hip joint arthritis; Chronic pain syndrome; Chronic anxiety; Chronic diastolic (congestive) heart failure; Obesity, Class III, BMI 40-49.9 (morbid obesity); Stress-induced cardiomyopathy; Polypharmacy 05/20/2025 Travel 05/10/2025 Refill [facility] [address] [facility] [place] [place] [address] Manas Jenkins MD 05/05/2025 Refill [facility] [address] [facility] [place] [address] Manas Jenkins MD Primary osteoarthritis of right knee; Chronic right-sided low back pain with right-sided sciatica 04/20/2025 Refill [facility] [address] [facility] [place] [address] Manas Jenkins MD 04/19/2025 Refill [facility] [address] [facility] [place] [address] Manas Jenkins MD 04/07/2025 Refill [facility] [address] [place] [address] Manas Jenkins MD Chronic right-sided low back [...] - LABS 04/13/2025 SCANNED - IMAGING 04/13/2025 from Last 3 Months Results * IMAGING SCANNED (06/17/2025) Only the most recent of6 resultswithin the time period is included. Anatomical [...] D deficiency has been defined by the [place] of Medicine and an Endocrine Society practice guideline as a level of serum 25-OH vitamin D less than 20 ng/mL (1,2). The Endocrine Society went on to further define vitamin D insufficiency as a level between 21 and 29 ng/mL (2). 1. IOM ([place] of Medicine). 2010. Dietary reference intakes for calcium and D. [place]: The National Academies Press. 2. Kael MF, Kd NC, Valente HOLCOMB, et al. Evaluation, treatment, and prevention of vitamin D deficiency: an Endocrine Society clinical practice guideline. JCEM. 2011 May; 96(7):1911-30. Blood 06/09/2025 11:4 6 AM EDT 06/09/2025 Narrative [facility] (AMBULATORY) - 06/10/2025 7:09 AM EDT Performed at: [facility] Lab[address] [id number] Inside Wireman: Dave Escudero PhD, Phone: [phone] Patient Fasting: Y Manas Jenkins MD LAB BLOOD ORDERABLES Fin al Result [facility] (AMBULATORY) [address] [place] [address], [facility] [address] [place] [address], * (ABNORMAL) CBC (No Diff) (06/09/2025 11:46 AM EDT) [facility] WBC 25.0(H) 3.4 - 10.8 x10E3/uL [facility] [...] - 06/10/2025 7:09 AM EDT Performed at: [facility] Lab[address] [id number] Inside Wireman: Dave Escudero PhD, Phone: [phone] Patient Fasting: Y Manas Jenkins MD LAB BLOOD ORDERABLES Fin al Result [facility] (AMBULATORY) [address] [place] [address], [facility] [address] [place] [address], * (ABNORMAL) Comprehensive Metabolic Panel (06/09/2025 11:46 AM EDT) Pathologist [facility] Glucose 134(H) 70 - 99 mg/dL [facility] [...] 11:4 6 AM EDT 06/09/2025 Narrative [facility] (AMBULATORY) - 06/10/2025 7:09 AM EDT Performed at: 01 - [facility] [address] [facility], [place], [place] [id number] Inside Wireman: Dave Escudero PhD, Phone: [phone] Patient Fasting: Y Manas Jenkins MD LAB BLOOD ORDERABLES Fin al Result Performing Organization Address City/[facility]/ZIP Co de Phone Number [facility] (AMBULATORY) [address] [place] [address], [facility] [address] [place] [address], * ECG Scan (05/25/2025) Manas Jenkins MD ECG ORDERABLES Final Re sult * (ABNORMAL) Hemoglobin A1c (05/20/2025 3:59 PM EDT) Hemoglobin A1C 5.7(H) 4.8 - 5.6 % [facility] Comment: Prediabetes: 5.7 - 6.4 Diabetes: >6.4 Glycemic control for adults with diabetes: <7.0 Blood 05/20/2025 3:59 PM EDT 05/20/2025 Narrative [facility] (AMBULATORY) - 05/24/2025 8:11 AM EDT Performed at: 01 - [facility] [address] [place] [id number] Inside Wireman: Dave Escudero PhD, Phone: [phone] Patient Fasting: Y Manas Jenkins MD LAB BLOOD ORDERABLES Fin al Result Performing Organization Address City/[facility]/ZIP Co de Phone Number [facility] [address] [place] [address], [facility] [address] [place] [address], [place] [phone] * Lipid Panel (05/20/2025 3:59 PM EDT) Total Cholesterol 152 100 - 199 mg/dL [facility] Triglycerides 138 0 - 149 mg/dL [facility] HDL Cholesterol 43 >39 mg/dL [facility] VLDL Cholesterol Kuldeep 24 5 - 40 mg/dL [facility] LDL Chol Calc (NIH) 85 0 - 99 mg/dL [facility] Blood 05/20/2025 3:59 PM EDT 05/20/2025 Narrative [facility] (AMB[facility]AT[facility]) - 05/24/2025 8:11 AM EDT Performed at: 01 - [facility] [address] [place], [place] [id number] Inside Wireman: Dave Escudero PhD, Phone: [phone] Patient Fasting: Y Manas Jenkins MD LAB BLOOD ORDERABLES Fin al Result [facility] (AMBULATORY) [address] [place] [address], [facility] [address] [place] [address], from Last 3 Months Insurance MEDICARE A & B Member Subscriber Plan / Payer (Ef fective 2000-Present) Name:Laura Mallory Member ID:[id number] Relation to Subscriber:Self Name:Laura Mallory Subscriber ID:[id number] Payer ID:[id number] Group ID:Not on file Type:Not on file Address: [facility] [id number] [id number] [facility] Care Teams Seo Strategist Relationship Specialty Start Date End Date Manas Jenkins MD [address] [place] [address] PCP - General Family Medicine 05/02/22
--- OUTSIDE RECORDS SUMMARY | 2025-07-07 10:27 | XMS_ITS | Clinical Summary ---
Author Organization [facility] Address [facility] [place] [address] Phone Care Team Providers Care Editor Continuity And Script Name Role Phone Manas Jenkins Blaine Primary [...] age to complete this topic Insurance [id number] [place] [id number] [place] [address] [facility] [place] Care Teams Editor Continuity And Script Relationship Specialty Start Date End Date Manas Jenkins [address] [place] [address] PCP - General 08/28/10
--- OUTSIDE RECORDS SUMMARY | 2025-07-07 10:27 | XMS_ITS | Encounter Summary ---
[facility] Address [address] [place] [address] Care Team Providers Care Drop Wire Operator Name Role Phone Manas Jenkins MD Primary Care Provider + Reason for Visit * Reason Comments Med Refill Encounter Details Date Type Department Care Team (Late st Contact Info) Description 05/24/2022 Refill [facility] [address] [place] [address] Manas Jenkins MD [address] [place] [address] Lumbar degenerative disc disease Social [...] documented as of this encounter Care Teams Drop Wire Operator Relationship Specialty Start Date End Date Manas Jenkins MD [address] [place] [address] PCP - General Family Medicine 05/02/22 documented as of this encounter
--- OUTSIDE RECORDS SUMMARY | 2025-07-07 10:27 | XMS_ITS | Encounter Summary ---
[facility] Address [address] [place] [address] Care Team Providers Care Director Translational Name Role Phone Manas Jenkins MD Primary Care Provider + Reason for Visit * Reason Comments Med Refill Encounter Details Date Type Department Care Team (Late st Contact Info) Description 01/30/2025 Refill [facility] [address] [place] [address] Manas Jenkins MD [address] [place] [address] 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 Tobacco Use Types [...] Mallory Relationship: Self Best call back number: [phone] Requested Prescriptions: Requested Prescriptions Pending Prescriptions Disp Refills promethazine (PHENERGAN) 25 MG tablet [Pharmacy Med Name: PROMETHAZINE 25MG] 30 tablet 0 Sig: TAKE 1 TABLET BY MOUTH EVERY SIX HOURS NEEDED FOR NAUSEA OR VOMITING MAY CAUSE DROWSINESS Pharmacy where request should be sent: [facility] - [place] - [address] [facility] [phone] [facility] [phone] FX Last office visit with prescribing clinician: [...] documented as of this encounter Care Teams Director Translational Relationship Specialty Start Date End Date Manas Jenkins MD [address] [place] [address] PCP - General Family Medicine 05/02/22 documented as of this encounter
--- OUTSIDE RECORDS SUMMARY | 2025-07-07 10:27 | XMS_ITS | Encounter Summary ---
[facility] Address [address] [place] [address] Care Team Providers Care Senior Lead Developer Name Role Phone Manas Jenkins MD Primary Care Provider + Reason for Visit * Reason Onset Date Comments Med Refill 03/01/2025 Encounter Details Date Type Department Care Team (Late st Contact Info) Description 03/01/2025 Refill [facility] [address] [place] [address] Manas Jenkins MD [address] [place] [address] Primary osteoarthritis of right knee; [...] Jenkins is out this wk. Suggested she tack picker the remaining refill at the pharmacy until he returns. She understood. * Telephone Encounter - Lorena Chawla RegSched Rep - 03/01/2025 8:11 AM EDT Caller: Laura Mallory Relationship: Self Best call back number: [phone] Requested Prescriptions: Requested Prescriptions Pending Prescriptions Disp Refills traMADol (ULTRAM) 50 MG tablet 90 tablet 1 Sig: Take 1 tablet by mouth Every 8 (Eight) Hours As Needed for Moderate Pain. Pharmacy where request should be sent: [facility] - [address] [phone] [facility] [phone] Last office visit with prescribing clinician: 11/04/2024 [...] as of this encounter Care Teams Senior Lead Developer Relationship Specialty Start Date End Date Manas Jenkins MD [address] [place] [address] PCP - General Family Medicine 05/02/22 documented as of this encounter
[2025-07-07] MEDS: PANTOPRAZOLE 40MG TABLET 40 MG PO ×2 (10:29→20:07)
[2025-07-07 11:08] LABS: Potassium 4.5 mmoL/L (3.5-5.1)
[2025-07-07] MEDS: ONDANSETRON 4MG/2ML VIAL 4 MG IV (11:28)
[2025-07-07] MEDS: CALCIUM GLUC IN NACL, ISO-OSM 1 GM/50 ML BAG IV (12:49)
[2025-07-07] MEDS: VANCOMYCIN/WATER FOR INJ (PEG) 1.75 GM/350 ML PIGGYBACK IV (13:46)
--- NOTE | 2025-07-07 17:26 | PC.NURSE ---
Lorazepam and gabapentin counted and returned to patient's to take home. Patient's also took patient's regular home medications home
--- NOTE | 2025-07-07 18:08 | PC.NURSE ---
Ni catheter removed and patient able to void. VS stable and patient remained on room air. Patient able to sit in chair for a couple of hours but then wanted to get back before supper. Lung sounds diminished. Patient able to have a bowle movement but unable to get specimen due to urine contamination.
[2025-07-07] MEDS: TRAMADOL 50MG TABLET 50 MG PO (18:53)
[2025-07-07] MEDS: 0.9 % SODIUM CHLORIDE 1000ML 1,000 ML 50 ML IV (20:06)
[2025-07-07] MEDS: ATORVASTATIN 40MG TABLET 40 MG PO (20:07)
--- NOTE | 2025-07-07 20:31 | PC.NURSE ---
Upon assessment nurse noticed pt never received previous dose of flagyl that was labeled, hung up, and scanned by day shift nurse, but was never infused. Provider notified. Charge nurse and housekeeping coordinator notified. Pharmacy notified.
--- NOTE | 2025-07-07 21:17 | PC.NURSE ---
Pt c/o pain related to urination. pt stated she couldn't pee. Pt was bladder scanned, volume was 150.
[2025-07-08] VITALS: PULSE 80
[2025-07-08] MEDS: ACETAMINOPHEN 325MG TAB 650 MG PO (01:38)
[2025-07-08 03:58] VITALS: BP 99/48; PULSE 74; RESP 14; TEMP 37.1; O2SAT 96; BMI 43.6
[2025-07-08 04:00] VITALS: PULSE 70
[2025-07-08] MEDS: METRONIDAZ/SOD CHL 500 MG/100 ML PIGGYBACK 100 MG IV (04:00)
[2025-07-08] MEDS: TRAMADOL 50MG TABLET 50 MG PO (04:52)
--- NOTE | 2025-07-08 06:00 | PC.NURSE ---
v/s, ox4, RA. Pt c/o pain, treated per JAN. Plan of care ongoing.
[2025-07-08 06:18] LABS: Hematocrit 32.9 % (37.0-47.0); Hemoglobin 10.2 g/dL (12.2-16.2); Immature Granulocytes % 1.5 %; Mean Corpuscular HGB Conc 31.0 g/dL (31.8-35.4); Mean Corpuscular Hemoglobin 29.5 pg (27.0-31.2); Mean Corpuscular Volume 95.1 fl (81-99); Nucleated Red Blood Cells % 0.2 %; Platelet Count 383 K/mm3 (142-424); Red Blood Count 3.46 M/mm3 (4.20-5.40); Red Cell Distribution Width-SD 59.7 fL; White Blood Count 9.0 K/mm3 (4.8-10.8)
[2025-07-08 06:30] LABS: Chloride 107 mmol/L (98-107); Potassium 3.2 mmoL/L (3.5-5.1); Sodium 135 mmol/L (136-145)
[2025-07-08 06:33] LABS: Anion Gap 8.2 mEq/L (5-15); Blood Urea Nitrogen 9 mg/dl (7-17); Calcium 7.8 mg/dl (8.4-10.2); Carbon Dioxide 23 mmol/L (22.0-30.0); Creatinine Clearance Estimated 48 mL/min (50-200); Creatinine,Serum 0.80 mg/dl (0.52-1.04); Estimated Glomerular Filt Rate 72 ml/min (>60); GFR (African American) 87 ML/MIN (>60); Glucose 100 mg/dl (74-100)
[2025-07-08 07:56] VITALS: BP 110/59; PULSE 86; RESP 16; TEMP 36.8; O2SAT 96
[2025-07-08] MEDS: GABAPENTIN 100MG CAPSULE 100 MG PO (08:06)
[2025-07-08] MEDS: FAMOTIDINE 20MG TABLET 20 MG PO (08:06)
[2025-07-08] MEDS: VANCOMYCIN/WATER FOR INJ (PEG) 1.75 GM/350 ML PIGGYBACK IV (08:06)
[2025-07-08] MEDS: POTASSIUM CHLORIDE 20MEQ TAB 40 MEQ PO ×2 (08:07→11:15)
[2025-07-08] MEDS: SACUBITRIL/VALSARTAN 24-26MG TABLET 1 EACH PO (08:07)
[2025-07-08] MEDS: ASPIRIN EC 81MG TABLET 81 MG PO (08:07)
[2025-07-08] MEDS: FUROSEMIDE 40 MG TABLET PO (08:07)
[2025-07-08] MEDS: ONDANSETRON 4MG/2ML VIAL 4 MG IV (08:07)
--- NOTE | 2025-07-08 08:24 | P.DS_ITS ---
<Statement entered by Colten Benitez MD - 07/12/25 11:44> Personally evaluated patient and agree with the plan of care as outlined by the [employer]. General Admission date:: 07/07/25 Discharge date: 07/08/25 HPI HPI HPI: This is a 65-year-old female who has a past medical history significant for diverticulitis, COPD, osteoarthritis, coronary artery disease, migraine headaches, lumbar radiculopathy, anxiety, obesity, sleep apnea, hyperlipidemia, and hypertension who presents with a chief complaint of weakness, nausea, and vomiting. Due to patient's symptoms, patient presented to the emergency room for evaluation. While in the emergency room, presenting white blood cell count was 22,[address] scan of the abdomen pelvis was consistent with colitis. Due to these findings, hospital medicine was contacted for further management. During my evaluation of the patient, patient states she has been having a functional decline for over the past week. She reports having weakness to the extent she has to use a wheelchair for ambulation. She is reporting diffuse abdominal pain coupled with nausea and nonbilious emesis. It is worth mentioning that patient recently was life flighted to the [facility] due to severe sepsis with suspected diverticulitis. Patient does endorse having some chills but no fever; moreover, patient is denying any headache, blurred vision, upper or lower extremity drift unilaterally, loss of bowel or bladder, chest pain, shortness of breath, dyspnea, or blurred vision. Patient does endorse having 2 episodes of loose stool over the course of the past 24 hours. Additional pertinent labs obtained including white blood cell count of 22.6, platelet count of 529, neutrophils 81%, D-dimer was 1.61, venous lactic acid of 3.8, sodium of 133, BUN of 19, creatinine 1.70, GFR of 30, blood glucose 420, magnesium 1.1, and urinalysis revealed 2+ leukocyte esterase. Hospital Course Hospital Course Hospital Course: Ms. Mallory is a 65-year-old female who was admitted from the emergency department after presenting with weakness, nausea, vomiting, diarrhea. She states that this has been going on for approximately 2 to 3 days. But she was recently hospitalized at the [facility] for over a week for sepsis. Workup in the emergency department revealed leukocytosis of 22.6 with left shift, elevated CRP, imaging showed colitis, elevated platelets at 529, kidney injury with a creatinine of 1.7, hypomagnesemia of 1.1, and urinary tract infection with 2+ leuk esterase. Hospital medicine was consulted for admission for further management. Plan of care is as follows: #Colitis #Leukocytosis, resolved ? Patient received Levaquin p.o. every 48 hours and Flagyl 500 mg IV every 6 hours. Will continue both for 7-day total course at discharge. Patient's white count stable yesterday and today, WBC 9.0. Patient received gentle IV hydration of NS at 50 mL/h. Patient has tolerated p.o. diet without issues. Patient had 1 episode of diarrhea day of admission, no diarrhea nausea vomiting since admission. Patient denies abdominal pain or tenderness to palpation. ? Blood cultures show no growth after 24 hours, urine culture no growth after 48 hours. #FER #Dehydration #Urinary retention ? Patient initial creatinine on admission 1.7, has normalized to 0.8 they have discharge. ? Patient initially had urinary retention on admission, In catheter was placed but removed after approximately 12 hours. Patient is urinating freely without difficulty. Patient had urine output 1725 mL after Ni was removed. ? Patient has had recurrent urinary tract infections for the past few months. She has taken multiple different antibiotics. Specimen was sent for ID and susceptibility on 06/17/2025, results came back positive for Enterococcus faecium. Susceptibility to only vancomycin. As far as the patient is aware she was not treated with vancomycin. She received 1 dose of vancomycin in the ED on admission, second dose during admission. Repeat urine culture result no growth after 48 hours. Will not continue Vanco at discharge. #Hypomagnesia ? Patient initial magnesium 1.1, patient received 2, 2 g infusions of magnesium increased to 1.6 yesterday. Repeat pending. #Hypocalcemia ? Patient calcium 7.1, repleted repeat 7.8. #Hypokalemia ? Repleted per protocol, potassium day of discharge 3.2. Patient discharged home on potassium 40 mEq daily. #Weakness #Physical decline ? Patient has been multiple admissions recently due to infection/sepsis events. PT/OT recommends SNF at discharge. Patient is not agreeable to placement at this time. She is amenable to home health services. Discussed this with case management/social work. ?Patient is morbidly obese, BMI 42. Appears to live a overall sedentary lifestyle. This complicates all aspects of patient's care. ?Patient will go home with home health services at discharge. Total time spent on discharge 35 minutes in counseling, documentation, chart review, and direct care with patient. Exam Data for Last 24 hours Vital signs and Labs for Last 24 Hours: Temp Pulse Resp BP Pulse Ox O2 Del Method 98.3 F 86 16 110/59 L 96 Room Air 07/08/25 07:56 07/08/25 07:56 07/08/25 07:56 07/08/25 07:56 07/08/25 07:56 07/08/25 07:56 Laboratory Results - last 24 hr 07/07/25 05:30: Magnesium 1.6 D, Procalcitonin 0.200 07/07/25 10:45: Potassium 4.5 D 07/08/25 05:25: WBC 9.0, RBC 3.46 L, Hgb 10.2 L, Hct 32.9 L, MCV 95.1, MCH 29.5, MCHC 31.0 L, RDW 17.7 H, Plt Count 383, MPV 10.5 H, Neut % (Auto) 56.1, Lymph % (Auto) 25.0, [place] % (Auto) 15.0 H, Eos % (Auto) 1.3, Baso % (Auto) 1.1, Neut # (Auto) 5.0, Lymph # (Auto) 2.2, [place] # (Auto) 1.3 H, Eos # (Auto) 0.1, Baso # (Auto) 0.1, Sodium 135 L, Potassium 3.2 L D, Chloride 107, Carbon Dioxide 23, Anion Gap 8.2, BUN 9 D, Creatinine 0.80, Estimated Creat Clear 48, Estimated GFR 72, Est GFR ( Amer) 87 D, Glucose 100, Calcium 7.8 L Temp Pulse Resp BP Pulse Ox O2 Del Method O2 Flow Rate 97.7 F 100 H 19 137/96 H 99 Room Air 2 12/19/23 11:30 12/19/23 12:00 12/19/23 12:00 12/19/23 12:00 12/19/23 12:00 12/19/23 15:00 12/18/23 15:42 Laboratory Results - last 24 hr 12/19/23 08:00: WBC 12.2 H D, RBC 3.36 L, Hgb 10.3 L, Hct 31.6 L, MCV 94.1, MCH 30.7, MCHC 32.7, RDW 17.2, Plt Count 281, MPV 8.3, Neut % (Auto) 83.0 H, Lymph % (Auto) 9.1 L, [place] % (Auto) 4.9, Eos % (Auto) 2.5, Baso % (Auto) 0.4, Neut # (Auto) 10.2 H, Lymph # (Auto) 1.1, [place] # (Auto) 0.6, Eos # (Auto) 0.3, Baso # (Auto) 0.1, Sodium 137, Potassium 4.2, Chloride 107, Carbon Dioxide 24, Anion Gap 10.2, BUN 15 D, Creatinine 0.70 D, Estimated Creat Clear 90, Estimated GFR 84, Est GFR ( Amer) 102 D, Glucose 104 H, Calcium 8.4, Magnesium 2.0, Total Bilirubin 0.4, AST 23, ALT 12, Alkaline Phosphatase 85, Total Protein 6.0 L, Albumin 3.1 L, Globulin 2.9, Albumin/Globulin Ratio 1.1 I & O for Last 24 hours: Intake & Output 07/05/25 07/06/25 07/07/25 07/08/25 23:59 23:59 23:59 23:59 Intake Total 2200 / 2320 120 / 120 Output Total 2225 / 2225 Balance - 120 / 120 Weight 115.122 kg 115.485 kg 118.705 kg Intake & Output 12/16/23 12/17/23 12/18/23 12/19/23 23:59 23:59 23:59 23:59 Intake Total 34.376 / 34.376 1504.126 / 1704.126 770 / 770 Output Total 4550 / 4550 0 / 0 Balance 34.376 / 34.376 -3045.874 / -2845.874 770 / 770 Weight 99.798 kg 99.798 kg Microbiology Reports for the Last 24 Hours: Microbiology 07/06/25 20:06 Urine,Catheterized Urine Culture - Final NO GROWTH AFTER 48 HOURS 07/06/25 18:15 Blood Blood Culture - Preliminary NO GROWTH AFTER 24 HOURS 07/06/25 17:58 Blood Blood Culture - Preliminary NO GROWTH AFTER 24 HOURS Constitutional Constitutional: no acute distress, obese and chronically ill appearing *Routine HEENT Exam Head: Present normocephalic Eye: Present EOMI and PERRL ENT: Present mucous membranes moist Comments: Tremor in bottom jaw *Routine Neck Exam Neck: Present supple; Absent lymphadenopathy *Routine Respiratory Exam Respiratory: Present prolonged expiratory phase and normal respiratory effort; Absent rhonchi, wheezes or crackles *Routine Cardiovascular Exam Cardiovascular: Present RRR *Routine Abdominal Exam Abdominal: Present soft, normoactive bowel sounds and tenderness (Nonfocal); Absent distended *Routine Rectal Exam Patient deferred: visual exam *Routine Exam Patient deferred: external exam *Routine Extremities Exam Extremities: Absent cyanosis, clubbing or edema *Routine Skin Exam Skin: Present warm; Absent rash *Routine Neurological Exam Neurological: Present alert, oriented X3 and moving all extremities; Absent altered mental status Results Data Completed and Pending Labs on day of discharge: Labs from last 24 hours 07/08/25 07/07/25 07/07/25 05:25 10:45 05:30 WBC 9.0 RBC 3.46 L Hgb 10.2 L Hct 32.9 L MCV 95.1 MCH 29.5 MCHC 31.0 L RDW 17.7 H Plt Count 383 MPV 10.5 H Neut % (Auto) 56.1 Lymph % (Auto) 25.0 [place] % (Auto) 15.0 H Eos % (Auto) 1.3 Baso % (Auto) 1.1 Neut # (Auto) 5.0 Lymph # (Auto) 2.2 [place] # (Auto) 1.3 H Eos # (Auto) 0.1 Baso # (Auto) 0.1 Sodium 135 L Potassium 3.2 L D 4.5 D Chloride 107 Carbon Dioxide 23 Anion Gap 8.2 BUN 9 D Creatinine 0.80 Estimated Creat Clear 48 Estimated GFR 72 Est GFR ( Amer) 87 D Glucose 100 Calcium 7.8 L Magnesium 1.6 D Procalcitonin 0.200 Preliminary micro results at discharge 07/06/25 18:15 Blood Culture - Preliminary Blood NO GROWTH AFTER 24 HOURS 07/06/25 17:58 Blood Culture - Preliminary Blood NO GROWTH AFTER 24 HOURS DS: Diagnosis Discharge Diagnosis (1) Colitis: Status: Acute Code(s): K52.9 - Noninfective gastroenteritis and colitis, unspecified (2) Leukocytosis: Status: Acute Code(s): D72.829 - Elevated white blood cell count, unspecified Qualifiers: Leukocytosis type: unspecified Qualified Code(s): D72.829 - Elevated white blood cell count, unspecified (3) FER (acute kidney injury): Status: Acute Code(s): N17.9 - Acute kidney failure, unspecified (4) Dehydration: Status: Acute Code(s): E86.0 - Dehydration (5) Urinary tract infection: Status: Acute Code(s): N39.0 - Urinary tract infection, site not specified (6) Hypomagnesemia: Status: Acute Code(s): E83.42 - Hypomagnesemia (7) Hypocalcemia: Status: Acute Code(s): E83.51 - Hypocalcemia (8) Hypokalemia due to excessive gastrointestinal loss of potassium: Status: Acute Code(s): E87.6 - Hypokalemia (9) Hypokalemia: Status: Acute Code(s): E87.6 - Hypokalemia (10) Generalized weakness: Status: Acute Code(s): R53.1 - Weakness (11) Assessment of physical health declined: Status: Acute Code(s): Z53.20 - Procedure and treatment not carried out because of patient's decision for unspecified reasons (12) Morbid obesity with BMI of 40.0-44.9, adult: Status: Acute Code(s): E66.01 - Morbid (severe) obesity due to excess calories; Z68.41 - Body mass index [BMI] 40.0-44.9, adult Meds Home Medications and Allergies Home Medications ?Medication ?Instructions ?Recorded ?Confirmed ?Type atorvastatin 40 mg tablet 40 mg PO HS 11/22/24 5 History cholecalciferol (vitamin D3) 50 50 mcg PO DAILY 07/06/25 History mcg (2,000 unit) capsule duloxetine 60 mg capsule,delayed 60 mg PO DAILY 07/06/25 History release famotidine 20 mg tablet 20 mg PO DAILY 11/22/2406/24 History gabapentin 100 mg capsule 100 mg PO TID 11/22/2407/06 History hydroxyzine HCl 25 mg tablet 25 mg PO BID 11/22/24 History aspirin 81 mg capsule 81 mg PO DAILY 12/29/2406/24 History omeprazole 20 mg capsule,delayed 20 mg PO DAILY 07/06/25 History release carvedilol 3.125 mg tablet 3.125 mg PO BID 30 days #60 tabs 06/20/25 07/06/25 Rx fluticasone fur. 100 mcg-umeclid 1 ea inhalation DAILY 07/06/25 07/06/25 History 62.5 mcg-vilant 25 mcg inhalat.powder (Trelegy Ellipta) linaclotide 72 mcg capsule 72 mcg PO DAILY 07/06/25 History (Linzess) sacubitril 24 mg-valsartan 26 mg 1 tab PO BID 07/06/25 07/06/25 History tablet (Entresto) topiramate 100 mg tablet 100 mg PO DAILY 07/06/25 History topiramate 100 mg tablet 150 mg PO HS 07/06/25 History celecoxib 100 mg capsule 100 mg PO BID 07/07/2507/07 History furosemide 40 mg tablet 40 mg PO BIDL 07/07/2507/07 History tramadol 50 mg tablet 50 mg PO TIDP PRN Moderate P ain 07/07/25 07/07/25 History (Scale Score 5-6) levofloxacin 750 mg tablet 750 mg PO Q48H 10 days #5 t abs 07/08/25 Rx metronidazole 500 mg tablet 500 mg PO Q6H 5 days #20 t abs 07/08/25 Rx New Prescriptions to Start Prescriptions: levoAna Luisa Vasquez metronidazole Ana Luisa Martinez Allergies Allergy/AdvReac Type Severity Reaction Status Date / Time sumatriptan Allergy Severe Difficulty Verified 05/05/25 13:42 Breathing fexofenadine (FEXOFENADINE) Allergy Intermediate SICK Verified 05/05/25 13:42 amoxicillin (From AUGMENTIN) Allergy Unknown SOA Verified 05/05/25 13:42 clavulanic acid (From Allergy Unknown SOA Verified 05/05/25 13:42 AUGMENTIN) naproxen (NAPROXEN) Allergy Unknown SWELLING Verified 05/05/25 13:42 Discharge Plan Disposition Patient Disposition: Home Health Service Condition: Good Discharge Order Discharge Orders: Discharge Order (Routine); Ordered 07/08/25 Ordered By: Ana Luisa Martinez Follow up Plan Follow up with: Manas Jenkins MD [Primary Care Provider, Medical] - 07/14/25 11:15 am Colten Millan MD [Staff Physician, Urology] - Enter time for follow up Prescriptions/Medication Reconciliation: New metronidazole 500 mg Tablet 500 mg PO Q6H 5 Days Qty: 20 0RF levofloxacin 750 mg Tablet 750 mg PO Q48H 10 Days Qty: 5 0RF Continued omeprazole 20 mg capsule,delayed release(DR/EC) 20 mg PO DAILY carvedilol 3.125 mg tablet 3.125 mg PO BID 30 Days Qty: 60 5RF aspirin 81 mg Capsule 81 mg PO DAILY atorvastatin 40 mg tablet 40 mg PO HS famotidine 20 mg tablet 20 mg PO DAILY hydroxyzine HCl 25 mg tablet 25 mg PO BID gabapentin 100 mg capsule 100 mg PO TID duloxetine 60 mg capsule,delayed release(DR/EC) 60 mg PO DAILY cholecalciferol (vitamin D3) 50 mcg (2,000 unit) capsule 50 mcg PO DAILY topiramate 100 mg tablet 100 mg PO DAILY topiramate 100 mg tablet 150 mg PO HS sacubitril-valsartan [Entresto] 24-26 mg tablet 1 tab PO BID Linzess 72 mcg capsule 72 mcg PO DAILY Trelegy Ellipta 100-62.5-25 mcg blister with device 1 ea INHALATION DAILY furosemide 40 mg tablet 40 mg PO BIDL Patient Comments: TAKE 1 TABLET BY MOUTH EACH MORNING TAKE 1 TABLET BY MOUTH AT 3PM tramadol 50 mg tablet 50 mg PO TIDP PRN (Reason: Moderate Pain (Scale Score 5-6)) celecoxib 100 mg capsule 100 mg PO BID Patient Comments: TAKE 1 CAPSULE BY MOUTH TWICE DAILY Problem Reconciliation Problems Reviewed?: Yes Patient Discharge Instructions ACTIVITY: Continue current activity, Ambulate as tolerated and Up with assistance DIET: continue same diet Patient Instructions: DI for Urinary Tract Infection (UTI), DI for Sepsis -- Adult, DI for Colitis, DI for Acute Kidney Injury, Catheter-Associated Urinary Tract Infection Print Language: [place] Providers Primary Care Provider: Manas Jenkins Admit Provider: Colten Benitez Attending Provider: Colten Benitez
[2025-07-08] MEDS: FLUTICASONE/UMECLIDIN/VILANTER 100/62.5/25MCG INHALER 1 PUFF IH (09:19)
[2025-07-08 19:58] LABS: Magnesium 2.3 mg/dl (1.6-2.3)
--- NOTE | 2025-07-11 10:29 | SW/DCPLANNER ---
Spoke with patient on the phone. Patient stated that she is good and just extremely weak. Patient stated that she is aware of her upcoming appointments. Patient stated that she was able to get her new medicine picked up from [facility]. Patient stated that she has no concerns or questions at this time. Nadeen Mcguire
== END 2025-07-08 11:55 | disposition home health service (06) | DRG 392 ==
LOC: ER 20:57 → 2ND 21:13
PROVIDERS: Nurse Practitioner; Nurse Practitioner Family; Admitting Provider Student in an Organized Health Care Education/Training Program; Emergency Provider Student in an Organized Health Care Education/Training Program; PCP Family Medicine; Visit Provider Student in an Organized Health Care Education/Training Program
DX: K52.9 Noninfective gastroenteritis and colitis, unspecified (principal); N17.9 Acute kidney failure, unspecified; Z68.41 Body mass index [BMI] 40.0-44.9, adult; E86.0 Dehydration; J44.9 Chronic obstructive pulmonary disease, unspecified; E66.01 Morbid (severe) obesity due to excess calories; E83.51 Hypocalcemia; I25.10 Atherosclerotic heart disease of native coronary artery without angina pectoris; I12.9 Hypertensive chronic kidney disease with stage 1 through stage 4 chronic kidney disease, or unspecified chronic kidney disease; N18.9 Chronic kidney disease, unspecified; F32.A Depression, unspecified; G43.909 Migraine, unspecified, not intractable, without status migrainosus; M19.90 Unspecified osteoarthritis, unspecified site; F41.9 Anxiety disorder, unspecified; E78.5 Hyperlipidemia, unspecified; M54.16 Radiculopathy, lumbar region; E83.42 Hypomagnesemia; R33.9 Retention of urine, unspecified; E87.6 Hypokalemia; G47.33 Obstructive sleep apnea (adult) (pediatric); D75.839 Thrombocytosis, unspecified; R53.1 Weakness; R79.82 Elevated C-reactive protein (CRP); Z53.20 Procedure and treatment not carried out because of patient's decision for unspecified reasons; Z86.16 Personal history of COVID-19; Z86.73 Personal history of transient ischemic attack (TIA), and cerebral infarction without residual deficits; Z87.891 Personal history of nicotine dependence; Z88.0 Allergy status to penicillin; Z88.6 Allergy status to analgesic agent; Z88.8 Allergy status to other drugs, medicaments and biological substances; Z79.82 Long term (current) use of aspirin; Z79.899 Other long term (current) drug therapy
CPT/HCPCS: 36415; 51702; 51798; 71045; 71275; 74177; 80048; 80053; 81001; 82803; 83605; 83690; 83735; 84132; 84145; 84484; 85007; 85025; 85378; 85651; 86140; 87040; 87086; 87636; 93005; 94640; 97162; 97166; 97530; G0378; J0612; J1650; J1836; J2405; J2543; J3373; J3375; J3475; J7030; J7040; J7120; Q9967

== ENCOUNTER 2025-09-12 12:32 | Emergency (ER) | payer MEDICARE, OTHER, SELFPAY ==
[2025-09-12 12:34] VITALS: BP 100/74; PULSE 90; RESP 20; TEMP 36.4; O2SAT 95; BMI 39.9
--- NOTE | 2025-09-12 12:56 | CT_ITS ---
FINAL REPORT TECHNIQUE: IV contrast enhanced exam This study was performed with techniques to keep radiation doses as low as reasonably achievable, (ALARA). Individualized dose reduction techniques using automated exposure control or adjustment of mA and/or kV according to the patient''s size were employed. CLINICAL HISTORY: diffuse abd pain, n/v no BM x 2 wks COMPARISON: 07/06/2025 FINDINGS: Abdomen: There is a mild atelectasis at the lung bases. The gallbladder is absent. Liver is homogeneous. The spleen, pancreas and adrenal glands are unremarkable. Kidneys show no mass or obstruction. There is mild diffuse fecal impaction without evidence of bowel obstruction. Pelvis: The appendix is not visualized. There is mild fecal impaction of the sigmoid colon. Mild, nonspecific urinary bladder wall thickening is seen. Cystitis not excluded. Patient is status post hysterectomy. No fluid collection or adenopathy is seen. IMPRESSION: 1. No evidence of bowel obstruction. 2. Urinary bladder wall thickening raising question of cystitis without upper urinary tract obstruction. Reviewed, Interpreted and Dictated by Anisa Arita MD Transcribed by Dulce Valles Authenticated and [facility]
--- NOTE | 2025-09-12 13:00 | [facility].EDGENADL ---
Discharge Plan Disposition Chief Complaint: Abdominal Pain Prescriptions Prescriptions: New bisacodyl [Dulcolax (bisacodyl)] 10 mg suppository 10 mg AR DAILY 2 Days Qty: 12 0RF magnesium citrate Solution 296 ml PO ONCE PRN (Reason: constipation) Qty: 296 0RF nitrofurantoin monohyd/m-cryst 100 mg capsule 100 mg PO BID 5 Days Qty: 10 0RF Rx Instructions: must administer with a meal/food No Action omeprazole 20 mg capsule,delayed release(DR/EC) 20 mg PO DAILY celecoxib [Celebrex] 100 mg capsule 100 mg PO BID Qty: 60 2RF carvedilol 3.125 mg tablet 3.125 mg PO BID 30 Days Qty: 60 5RF Trelegy Ellipta 100-62.5-25 mcg blister with device 1 inh inhalation DAILY 90 Days Qty: 90 3RF topiramate 100 mg tablet See Rx Instructions PO .COMPLEX Qty: 75 4RF Rx Instructions: 100 mg (1 tablet) orally morning; 150 mg (1.5 tablet) night aspirin 81 mg Capsule 81 mg PO DAILY atorvastatin 40 mg tablet 40 mg PO HS famotidine 20 mg tablet 20 mg PO DAILY hydroxyzine HCl 25 mg tablet 25 mg PO BID gabapentin 100 mg capsule 100 mg PO TID duloxetine 60 mg capsule,delayed release(DR/EC) 60 mg PO DAILY cholecalciferol (vitamin D3) 50 mcg (2,000 unit) capsule 50 mcg PO DAILY sacubitril-valsartan [Entresto] 24-26 mg tablet 1 tab PO BID Linzess 72 mcg capsule 72 mcg PO DAILY Trelegy Ellipta 100-62.5-25 mcg blister with device 1 ea INHALATION DAILY furosemide 40 mg tablet 40 mg PO BIDL Patient Comments: TAKE 1 TABLET BY MOUTH EACH MORNING TAKE 1 TABLET BY MOUTH AT 3PM tramadol 50 mg tablet 50 mg PO TIDP PRN (Reason: Moderate Pain (Scale Score 5-6)) Referrals Follow up/Referrals: Manas Jenkins MD [Primary Care Provider, Medical] - See instructions Activity Restrictions/Add. Instructions Additional Instructions/Restrictions: No emergent pathology identified today on your CAT scan however you do have evidence of constipation clinically and I recommend that you take your bisacodyl and magnesium citrate to help you have a bowel movement. Once you have had a bowel movement I recommend that you initiate [id number] MiraLAX taking half a cap twice a day and then doubling the dose every 3 days until you have a soft bowel movement every day and then stay on that dose for at least 2 weeks. Additionally you have a urinary tract infection that was identified and antibiotics have been sent. Return to the emergency room with high fevers or other concerns. Clinical Impressions Clinical Impression: Abdominal pain, Nausea & vomiting, Acute UTI, Constipation Instructions Patient Instructions: DI for Acute Abdominal Pain Print Language Print Language: Romansh Discharge ED Provider: Jaz Meeks General Adult HPI General Chief complaint: Abdominal Pain Stated complaint: constipation x 2 weeks Time Seen by Provider: 09/12/25 12:54 Mode of Arrival: Wheelchair Source of Information: Patient and Significant Other Description of Symptoms (Recalled from ER Triage Doc. by RN): Pt c/o abdominal pain from not having a bowel movement in 2 weeks. Pt also reports N/V for two weeks along with the abdominal pain History of Present Illness HPI narrative: Patient is a 65-year-old presents today with 2 weeks of abdominal discomfort nausea and vomiting and decreased bowel movements. States she has not had any bowel movement in 2 weeks. No fevers or chills no blood in her stool no blood in her vomit. Related Data Home Medications ?Medication ?Instructions ?Recorded ?Confirmed atorvastatin 40 mg tablet 40 mg PO HS 11/22/24 09/12/25 cholecalciferol (vitamin D3) 50 50 mcg PO DAILY 11/22/24 09/12/25 mcg (2,000 unit) capsule duloxetine 60 mg capsule,delayed 60 mg PO DAILY 11/22/24 09/12/25 release famotidine 20 mg tablet 20 mg PO DAILY 11/22/24 09/12/25 gabapentin 100 mg capsule 100 mg PO TID 11/22/24 09/12/25 hydroxyzine HCl 25 mg tablet 25 mg PO BID 11/22/24 09/12/25 aspirin 81 mg capsule 81 mg PO DAILY 12/29/24 09/12/25 omeprazole 20 mg capsule,delayed 20 mg PO DAILY 05/05/25 09/12/25 release fluticasone fur. 100 mcg-umeclid 1 ea inhalation DAILY 07/06/25 09/12/25 62.5 mcg-vilant 25 mcg inhalat.powder (Trelegy Ellipta) linaclotide 72 mcg capsule 72 mcg PO DAILY 07/06/25 09/12/25 (Linzess) sacubitril 24 mg-valsartan 26 mg 1 tab PO BID 07/06/25 09/12/25 tablet (Entresto) furosemide 40 mg tablet 40 mg PO BIDL 07/07/25 09/12/25 tramadol 50 mg tablet 50 mg PO TIDP PRN Moderate Pain 07/07/25 09/12/25 (Scale Score 5-6) Previous Rx's ?Medication ?Instructions ?Recorded carvedilol 3.125 mg tablet 3.125 mg PO BID 30 days #60 tabs 06/20/25 fluticasone fur. 100 mcg-umeclid 1 inh inhalation DAILY 90 days #90 07/21/25 62.5 mcg-vilant 25 mcg ea inhalat.powder (Trelegy Ellipta) celecoxib 100 mg capsule (Celebrex) 100 mg PO BID #60 caps 08/18/25 topiramate 100 mg tablet See Rx Instructions PO .COMPLEX 08/18/25 #75 tabs bisacodyl 10 mg rectal suppository 10 mg AR DAILY 2 days #12 ea 09/12/25 (Dulcolax (bisacodyl)) magnesium citrate 296 ml PO ONCE PRN constipation 09/12/25 #296 mL nitrofurantoin 100 mg PO BID 5 days #10 caps 09/12/25 monohydrate/macrocrystals 100 mg capsule Allergies Allergy/AdvReac Type Severity Reaction Status Date / Time sumatriptan Allergy Severe Difficulty Verified 08/18/25 13:40 Breathing fexofenadine (FEXOFENADINE) Allergy Intermediate SICK Verified 08/18/25 13:40 amoxicillin (From AUGMENTIN) Allergy Unknown SOA Verified 08/18/25 13:40 clavulanic acid (From Allergy Unknown SOA Verified 08/18/25 13:40 AUGMENTIN) naproxen (NAPROXEN) Allergy Unknown SWELLING Verified 08/18/25 13:40 [facility] Disclaimer: The information contained in this section may have been updated after the patient was seen, as this information can be updated by other users. Medical History Hypomagnesemia Lactic acidosis Elevated d-dimer Dehydration Thrombocytosis Acute kidney injury superimposed on chronic kidney disease FER (acute kidney injury) Acute lactic acidosis Sepsis Abdominal pain Acute pain of left hip Ascending cholangitis Septic shock Bleeding internal hemorrhoids Hematuria Diverticulitis Bilateral hip pain Yeast vaginitis Atrophic vaginitis UTI (urinary tract infection) Hematuria Rectal discomfort Abdominal pain, lower Diarrhea Otitis externa UTI (urinary tract infection) Bronchitis Screening for malignant neoplasm of colon Nausea Upper abdominal pain Drug induced constipation Chronic constipation Bloating Urinary tract infectious disease Acute UTI Lower back pain Severe obesity with body mass index (BMI) of 36.0 to 36.9 with serious comorbidity Fall Dyspnea Skin tear of left upper extremity Fall Ileitis Accidental opiate poisoning Constipation Episodic migraine History of episodic migraine and good response to topiramate but still with an average of 2 headaches a week. Triptans are contraindicated. She was advised to increase topiramate to 100 mg in the morning and 150 mg at night. Acute herpes zoster neuropathy Sciatica Chest pain Anxiety state Anxiety and depression Arthritis Urinary tract infection History of COVID-19 Migraine History of stroke History of gastroesophageal reflux (GERD) History of anemia Insomnia COPD mixed type Oral dyskinesia Most likely secondary to prochlorperazine already discontinued by PCP Lung nodule Dyspnea on exertion Encounter for screening for malignant neoplasm of lung History of asthma Stopped smoking with greater than 30 pack year history Edema of both lower extremities Takotsubo cardiomyopathy Mediastinal lymphadenopathy Hilar lymphadenopathy Asthma exacerbation APARNA (obstructive sleep apnea) Noncompliant with CPAP treatment. Brain TIA Asthma Hyperglycemia A1c hemoglobin pending, follow-up with PCP for results. Tremor 09/08/2024: Initial good response to topiramate but worsening of tremor since last visit. Indications, possible side effects were reviewed once again with the patient and her including but not limited to nephrolithiasis, paresthesias, word finding difficulty, neuro glaucoma). APARNA (obstructive sleep apnea) Osteoarthritis She was wheelchair-bound at last appointment and currently ambulatory with a walker Hypertensive disorder Hyperlipidemia Gastroesophageal reflux disease Surgical History H/O elbow surgery LEFT History of carpal tunnel surgery of right wrist History of carpal tunnel surgery of left wrist H/O: History of arthroplasty of left shoulder H/O: hysterectomy History of cholecystectomy Family History Other Cancer 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 Smoking Status: Former smoker tobacco type: cigarettes second hand exposure: Yes alcohol intake: former substance use type: denies use current occupational status: disabled Travel in the last 8 weeks?: None household members: spouse housing: other marital status: current occupational exposures/hazards: No caffeine: Yes Have you lived/traveled outside [place] in past 30 days?: No Contact w/someone who lives/traveled outside [place] past 30 days?: No Exposure to someone with infectious disease in past 14 days?: No Do you have a fever (greater than 100.4 F or 38 C)?: No Have you tested positive for COVID-19?: No Exposed to someone with COVID-19 in past 14 days?: No Do you have a sore throat?: No Do you have a cough?: No Do you have any weakness?: No Do you have any diarrhea?: No Are you experiencing any unusual bleeding?: No Do you have any muscle aches/pain?: No Do you have any abdominal pain?: No Are you experiencing loss of taste or smell?: No Other Medical History Have you received the Flu Vaccine for this season: No Have you received the Pneumonia Vaccine: No ROS Obtained: Yes All systems reviewed & no additional complaints except as documented Physical Exam General General appearance: alert Respiratory Respiratory exam: Present normal lung sounds bilaterally Cardiovascular Cardiovascular exam: Present regular rate Abdominal Exam Abdominal exam: Present soft and tenderness (Diffuse abdominal pain and tenderness); Absent distention Neurological Exam Neurological exam: Present alert and oriented X3 Medical Decision Making Medical Records Screening: Per USPSTF and CDC recommendations, given the prevalence of disease in our region, it is our hospital?s policy to screen for HIV and viral Hepatitis for all patients aged 18 and over and those with ongoing risk factors. [place] Inquiry Pt receiving controlled substance: No Vital Signs: 09/12/25 12:34 09/12/25 13:52 Temperature 97.5 F L 98.2 F Temperature Source Oral Oral Pulse Rate 87 Pulse Rate [Right] 90 Respiratory Rate 20 18 Blood Pressure 120/74 Blood Pressure [Right Arm] 100/74 L Blood Pressure Mean [Right Arm] 82 Blood Pressure Source Automatic Cuff Blood Pressure Source [Right Arm] Automatic Cuff Blood Pressure Position Sitting Blood Pressure Position [Right Arm] Sitting 02 Sat by Pulse Oximetry 95 95 Oxygen Delivery Method Room Air Room Air Lab Data Lab Results 09/12/25 12:55: WBC 12.2 H, RBC 3.98 L, Hgb 11.7 L, Hct 36.8 L, MCV 92.5, MCH 29.4, MCHC 31.8, RDW 18.1 H, Plt Count 419, MPV 10.0, Neut % (Auto) 71.1, Lymph % (Auto) 15.3, [place] % (Auto) 8.0, Eos % (Auto) 1.5, Baso % (Auto) 0.7, Neut # (Auto) 8.7 H, Lymph # (Auto) 1.9, [place] # (Auto) 1.0, Eos # (Auto) 0.2, Baso # (Auto) 0.1, Sodium 134 L, Potassium 3.9, Chloride 102, Carbon Dioxide 24, Anion Gap 11.9, BUN 12, Creatinine 0.90, Estimated Creat Clear 95, Estimated GFR 63, Est GFR ( Amer) 76, Glucose 117 H, Lactate 1.6, Calcium 8.7, Total Bilirubin 0.9, AST 39 H, ALT 73, Alkaline Phosphatase 497 H, Total Protein 7.6, Albumin 3.9, Globulin 3.7 H, Albumin/Globulin Ratio 1.1, Lipase 67 09/12/25 13:11: Urine Color Dark yellow, Urine Appearance Slightly cloudy, Urine pH 5.5, Ur Specific [place] >= 1.030, Urine Protein Trace, Urine Glucose (UA) Negative, Urine Ketones Trace, Urine Blood Negative, Urine Nitrate Positive A, Urine Bilirubin Negative, Urine Urobilinogen 1.0, Ur Leukocyte Esterase Trace 09/12/25 12:55 09/12/25 12:55 Orders (Tests/Meds): ED MEDICATIONS Generic Name Dose Route Start Last Admin Trade Name Freq PRN Reason Stop Dose Admin Sodium Chloride 10 ml 09/12/25 14:00 09/12/25 14:04 Sodium Chloride 0.9% 10ml Syr (Rad Only) IV 10/12/25 13:59 10 ml NEEDED PRN Administration Maintain IV Site Discontinued Medications Generic Name Dose Route Start Last Admin Trade Name Freq PRN Reason Stop Dose Admin Sodium Chloride 1,000 mls @ 999 mls/hr 09/12/25 13:00 09/12/25 14:17 Sod Chlor 0.9% 1000ml Bag IV 09/12/25 14:00 Infused .Q1H1M JAMES Infusion Iopamidol 75 ml 09/12/25 14:00 09/12/25 14:01 Iopamidol-370 (76%);100ml Bottle IV 09/12/25 14:01 75 ml ONCE ONE Administration Morphine Sulfate 4 mg 09/12/25 12:56 09/12/25 13:13 Morphine 4mg/Ml Syringe IV 09/12/25 12:57 4 mg ONCE ONE Administration Ondansetron HCl 4 mg 09/12/25 12:56 09/12/25 13:13 Ondansetron 4mg/2ml Vial IV 09/12/25 12:57 4 mg ONCE ONE Administration ORDERS Category Date Time Status CT abdomen pelvis w con Stat Cat Scan 09/12/25 12:56 Taken CBC w/Auto Diff [Complete Blood Count Auto Diff] Stat Lab 09/12/25 12:55 Completed CMP [Comprehensive Metabolic Panel] Stat Lab 09/12/25 12:55 Completed Lactic Acid Stat Lab 09/12/25 12:55 Completed Lipase Stat Lab 09/12/25 12:55 Completed UA [Urinalysis and Microscopic] Stat Lab 09/12/25 13:11 Results Urine Culture Stat Micro 09/12/25 13:11 Received Medical Decision Narrative: Patient is a 65-year-old female who presents today with diffuse abdominal pain nausea and vomiting and decreased bowel movements. Most concerning would be a bowel obstruction she is a poor historian and I am not sure as to whether or not she has had multiple surgical interventions in the abdomen in the past and could have adhesions etc. Malignancy remains on the differential other inflammatory pathology such as colitis diverticulitis etc. are also on the differential. Get a CT contrasted scan of her abdomen pelvis administer IV fluids pain medicine nausea medicine and get basic blood work and reassess. Reassessment 258 serial abdominal exams are benign CT scan was performed which I personally interpreted shows no acute intra o abdominal pathology specifically no surgical pathology. There is bladder wall thickening consistent with cystitis she also has a nitrite positive urine we will treat her for cystitis with nitrofurantoin. She does have some stool burden but nothing significant. Clinically she is constipated I offered her an enema but she declined this therefore I sent her home with Dulcolax suppositories mag citrate and then to escalate with MiraLAX after that. Return precautions emphasized patient was discharged in improved and stable condition. Critical Care Critical Care Time Critical Care Time: No
[2025-09-12 13:04] LABS: Hematocrit 36.8 % (37.0-47.0); Hemoglobin 11.7 g/dL (12.2-16.2); Immature Granulocytes % 3.4 %; Mean Corpuscular HGB Conc 31.8 g/dL (31.8-35.4); Mean Corpuscular Hemoglobin 29.4 pg (27.0-31.2); Mean Corpuscular Volume 92.5 fl (81-99); Nucleated Red Blood Cells % 0.4 %; Platelet Count 419 K/mm3 (142-424); Red Blood Count 3.98 M/mm3 (4.20-5.40); Red Cell Distribution Width-SD 60.6 fL; White Blood Count 12.2 K/mm3 (4.8-10.8)
[2025-09-12] MEDS: 0.9 % SODIUM CHLORIDE 1000ML 1,000 ML 999 ML IV (13:12)
[2025-09-12 13:13] LABS: Albumin Level 3.9 g/dl (3.5-5.0); Chloride 102 mmol/L (98-107)
[2025-09-12] MEDS: MORPHINE 4MG/ML SYRINGE 4 MG IV (13:13)
[2025-09-12] MEDS: ONDANSETRON 4MG/2ML VIAL 4 MG IV (13:13)
[2025-09-12 13:14] LABS: Potassium 3.9 mmoL/L (3.5-5.1); Sodium 134 mmol/L (136-145)
[2025-09-12 13:14] LABS: Microscopic, Urine URINE MICROSCOPIC (MICROSCOPIC)
[2025-09-12 13:16] LABS: Alanine Aminotransferase 73 U/L (12-78); Albumin/Globulin Ratio 1.1 (1.1-1.8); Alkaline Phosphatase 497 U/L (38-126); Anion Gap 11.9 mEq/L (5-15); Aspartate Amino Transferase 39 U/L (14-36); Bilirubin,Total 0.9 mg/dl (0.2-1.3); Blood Urea Nitrogen 12 mg/dl (7-17); Carbon Dioxide 24 mmol/L (22.0-30.0); Creatinine Clearance Estimated 95 mL/min (50-200); Creatinine,Serum 0.90 mg/dl (0.52-1.04); Estimated Glomerular Filt Rate 63 ml/min (>60); GFR (African American) 76 ML/MIN (>60); Globulin 3.7 g/dL (1.3-3.2); Lipase 67 U/L (23-300); Total Protein,Serum 7.6 g/dl (6.3-8.2)
[2025-09-12 13:17] LABS: Calcium 8.7 mg/dl (8.4-10.2); Glucose 117 mg/dl (74-100)
[2025-09-12 13:26] LABS: Glucose,Urine (UA) Negative (Negative); Ketones,Urine TRACE (Negative); Leukocyte Esterase,Urine TRACE (Negative); PH,Urine 5.5 (5.0-8.5); Protein,Urine TRACE (Negative); Specific Gravity, Urine >= 1.030 (1.005-1.030); Urobilinogen,Urine 1.0 EU/dl (0.2)
[2025-09-12 13:32] LABS: Bilirubin,Urine Negative (Negative); Color,Urine Dark Yellow (Yellow)
[2025-09-12 13:52] VITALS: BP 120/74; PULSE 87; RESP 18; TEMP 36.8; O2SAT 95
[2025-09-12] MEDS: SODIUM CHLORIDE 0.9% 10ML SYR (RAD ONLY) 10 ML IV ×2 (14:01→14:04)
[2025-09-12] MEDS: IOPAMIDOL-370 (76%);100ML BOTTLE 75 ML IV (14:01)
[2025-09-12 15:04] LABS: Amorphous Sediment,Urine Trace /lpf; Bacteria,Urine Trace /lpf
[2025-09-12 15:07] VITALS: BP 120/60; PULSE 91; RESP 16; TEMP 36.8; O2SAT 95
--- NOTE | 2025-09-14 08:06 | PC.NURSE ---
Preliminary urine culture reviewed by Dr. Haywood. No further action needed at this time.
== END 2025-09-12 15:09 | disposition home or self-care (01) ==
PROVIDERS: Emergency Provider Student in an Organized Health Care Education/Training Program; PCP Family Medicine
DX: R10.84 Generalized abdominal pain (principal); N39.0 Urinary tract infection, site not specified; R11.2 Nausea with vomiting, unspecified; K59.00 Constipation, unspecified; I10 Essential (primary) hypertension; E78.5 Hyperlipidemia, unspecified; Z87.891 Personal history of nicotine dependence
CPT/HCPCS: 74177; 80053; 81001; 83605; 83690; 85025; 87086; 87088; 87186; 96361; 96374; 96375; 99284; 99285; J2270; J2405; J7030; Q9967

== ENCOUNTER 2025-09-14 15:24 | Emergency (ER) | payer MEDICARE, OTHER, SELFPAY ==
[2025-09-14] VITALS (26 sets, daily range): BP systolic 50–115; BP diastolic 32–69; PULSE 70–84; RESP 18–23; TEMP 36.2–36.6; O2SAT 95–98; BMI 39.9
--- NOTE | 2025-09-14 15:43 | ECG_ITS ---
APPROVED REPORT Exam: Resting ECG HR:79 bpm ECG Measurements Heart Rate 79 AXES OK 167 P 41 QRSd 94 QRS -38 QT 427 T 74 QTc 462 Conclusion SINUS RHYTHM LEFT AXIS DEVIATION [QRS AXIS < -30] PATTERN CONSISTENT WITH PULMONARY DISEASE ABNORMAL ECG UNCONFIRMED REPORT Electronically signed by : Duy Meeks, 09/14/2025 23:11:23
--- OUTSIDE RECORDS SUMMARY | 2025-09-14 15:47 | XMS_ITS | Encounter Summary ---
[facility] Address [address] [place] [address] Care Team Providers Care Senior Accountant Analyst Name Role Phone Manas Jenkins MD Primary Care Provider + Reason for Visit * Reason Comments Med Refill Encounter Details Date Type Department Care Team (Late Contact Info) Description 05/30/2025 Refill [facility] MEDICINE [address] [facility] [address] Manas Jenkins MD 210 [place] [address] 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 Tobacco Use Types [...] Department Care Team (Late Contact Info) Description 09/20/2025 11:45 AM EDT Office Visit [facility] MEDICINE [address] [place] [address] Manas Jenkins MD [address] [place] [address] documented as of this encounter Visit Diagnoses Not on filedocumented in this encounter Additional Health Concerns Assessment Noted Time PHQ-2 Depression Total Score: 1 11/27/19 24 1:57 PM EST documented as of this encounter Care Teams Senior Accountant Analyst Relationship Specialty Start Date End Date Manas Jenkins MD [address] [place] [address] PCP - General Family Medicine 05/02/22 documented as of this encounter
--- OUTSIDE RECORDS SUMMARY | 2025-09-14 15:47 | XMS_ITS | Encounter Summary ---
Author Organization [facility] yste Address [address] [place] [address] Care Team Providers Care Automotive Finance Manager Name Role Phone Manas Jenkins MD Primary Care Provider + Encounter Details Date Type Department Care Team (Late st Contact Info) Description 05/24/2025 Results Follow-Up [facility] MEDICINE [address] [place] [address] Manas Jenkins MD [address] [place] [address] 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 Tobacco Use Types [...] Description 09/20/2025 11:45 AM EDT Office Visit [facility] MEDICINE [address] [place] [address] Manas Jenkins MD [address] [place] [address] documented as of this encounter Visit Diagnoses Not on filedocumented in this encounter Additional Health Concerns Assessment Noted Time PHQ-2 Depression Total Score: 1 11/27/19 24 1:57 PM EST documented as of this encounter Care Teams Automotive Finance Manager Relationship Specialty Start Date End Date Manas Jenkins MD [address] [place] [address] PCP - General Family Medicine 05/02/22 documented as of this encounter
--- OUTSIDE RECORDS SUMMARY | 2025-09-14 15:47 | XMS_ITS | Clinical Summary ---
Author Organization [employer] [facility] Address [address] [place] [address] Phone Care Team Providers Care Art Tracer Name Role Phone Javi Corrales MD Primary [...]
--- OUTSIDE RECORDS SUMMARY | 2025-09-14 15:47 | XMS_ITS | Encounter Summary ---
Author Organization [facility] yste Address [address] [place] [address] Care Team Providers Care Senior Database Programmer Name Role Phone Manas Jenkins MD Primary Care Provider + Encounter Details Date Type Department Care Team (Late st Contact Info) Description 06/10/2025 Results Follow-Up [facility] MEDICINE [address] [place] [address] Manas Jenkins MD [address] [place] [address] 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 Tobacco Use Types [...] Description 09/20/2025 11:45 AM EDT Office Visit [facility] MEDICINE [address] [place] [address] Manas Jenkins MD [address] [place] [address] documented as of this encounter Visit Diagnoses Not on filedocumented in this encounter Additional Health Concerns Assessment Noted Time PHQ-2 Depression Total Score: 1 11/27/19 24 1:57 PM EST documented as of this encounter Care Teams Senior Database Programmer Relationship Specialty Start Date End Date Manas Jenkins MD [place] [address] PCP - General Family Medicine 05/02/22 documented as of this encounter
--- OUTSIDE RECORDS SUMMARY | 2025-09-14 15:48 | XMS_ITS | Encounter Summary ---
[facility] Address [address] [place] [address] Care Team Providers Care Ramp Lead Name Role Phone Manas Jenkins MD Primary Care Provider + Reason for Visit * Reason Comments Med Refill Encounter Details Date Type Department Care Team (Late st Contact Info) Description 01/30/2025 Refill [facility] MEDICINE [address] [place] [address] Manas Jenkins MD [address] [place] [address] 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 Tobacco Use Types [...] Mallory Relationship: Self Best call back number: [phone] Requested Prescriptions: Requested Prescriptions Pending Prescriptions Disp Refills promethazine (PHENERGAN) 25 MG tablet [Pharmacy Med Name: PROMETHAZINE 25MG] 30 tablet 0 Sig: TAKE 1 TABLET BY MOUTH EVERY SIX HOURS NEEDED FOR NAUSEA OR VOMITING MAY CAUSE DROWSINESS Pharmacy where request should be sent: [facility] [place] - [address] [facility] - [phone] - [phone] FX Last office visit with prescribing clinician: [...] Care Team (Late st Contact Info) Description 09/20/2025 11:45 AM EDT Office Visit [facility] MED[facility]INE [address] [place] [address] Manas Jenkins MD [address] [place] [address] documented as of this encounter Visit Diagnoses Not on filedocumented in this encounter Additional Health Concerns Assessment Noted Time PHQ-2 Depression Total Score: 1 11/27/19 24 1:57 PM EST documented as of this encounter Care Teams Ramp Lead Relationship Specialty Start Date End Date Manas Jenkins MD [address] [address] PCP - General Family Medicine 05/02/22 documented as of this encounter
--- OUTSIDE RECORDS SUMMARY | 2025-09-14 15:48 | XMS_ITS | Encounter Summary ---
[facility] Address [address] [place] [address] Care Team Providers Care Back Up Worker Name Role Phone Manas Jenkins MD Primary Care Provider + Reason for Visit * Reason Comments Med Refill Encounter Details Date Type Department Care Team (Late st Contact Info) Description 09/06/2025 Refill [facility] MED[facility]INE [address] [place] [address] Manas Jenkins MD [address] [place] [address] Chronic right-sided low back pain with right-sided [...] Description 09/20/2025 11:45 AM EDT Office Visit [facility] MED[facility] [address] [place] [address] Manas Jenkins MD [address] [place] [address] documented as of this encounter Visit Diagnoses Diagnosis Chronic right-sided low back pain with right-sided sciatica documented in this encounter Additional Health Concerns Assessment Noted Time PHQ-2 Depression Total Score: 1 11/27/19 24 1:57 PM EST documented as of this encounter Care Teams Back Up Worker Relationship Specialty Start Date End Date Manas Jenkins MD [address] [place] [address] PCP - General Family Medicine 05/02/22 documented as of this encounter
--- OUTSIDE RECORDS SUMMARY | 2025-09-14 15:48 | XMS_ITS | Encounter Summary ---
Author Organization [facility] yste Address [address] [place] [address] Care Team Providers Care Marketing Clerk Name Role Phone Manas Jenkins MD Primary Care Provider + Encounter Details Date Type Department Care Team (Late st Contact Info) Description 07/15/2025 Results Follow-Up [facility] MEDICINE [address] [place] [address] Manas Jenkins MD [address] [place] [address] 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 Tobacco Use Types [...] Description 09/20/2025 11:45 AM EDT Office Visit [facility] MEDICINE [address] [place] [address] Manas Jenkins MD [address] [place], [place] [id number] documented as of this encounter Visit Diagnoses Diagnosis Hypomagnesemia- Primary Disorders of magnesium metabolism documented in this encounter Additional Health Concerns Assessment Noted Time PHQ-2 Depression Total Score: 1 11/27/19 24 1:57 PM EST documented as of this encounter Care Teams Marketing Clerk Relationship Specialty Start Date End Date Manas Jenkins MD [place] [address] PCP - General Family Medicine 05/02/22 documented as of this encounter
--- OUTSIDE RECORDS SUMMARY | 2025-09-14 15:48 | XMS_ITS | Clinical Summary ---
Author Organization [facility] Address [address] [place] [address] Care Team Providers Care Certified Lactation Educator Name Role Phone Manas Jenkins MD Primary Care Provider [phone] Source Comments This information has been disclosed [...] therelease of HIV test results or diagnoses. 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 02/26/2023 Assessment & [...] - 06/30/2025 11:59 PM EDT Hospital Encounter [facility] Radiology [address] [place] [phone] System, Provider Not In Discharge Disposition: Home or Self Care WITHOUT Home Care Services 06/30/2025 4:34 PM EDT - 06/30/2025 4:36 PM EDT Hospital Encounter [facility] Radiology [address] [place] [phone] System, Provider Not In Discharge Disposition: Home or Self Care WITHOUT Home Care Services 06/30/2025 4:34 PM EDT - 06/30/2025 4:36 PM EDT Hospital Encounter [facility] Radiology [address] [place] [phone] System, Provider Not In Discharge Disposition: Home or Self Care WITHOUT Home Care Services from Last 3 Months Immunizations Immunization Administration [...] Recorded In the past 12 months has [employer], gas, oil, or water company threatened to [...] any time in the past 12 m [facility], were you homeless or living in a fdc (including now)? No 05/25/2025 Comments No Sex [...] series) 2019 Immunization: COVID-19 ( - season) 2025 Immunization: Influenza (MyChart) (#1) 2025 Immunization: DTaP/Tdap/Td (2 - Td or Tdap) 01/23/2034 01/24/2024 Hepatitis C Screening (MyChart) Completed Procedures Procedure Name Priority Date/Time Associated Diagnosis Comments XR COMPARISON IMAGES Routine 06/30/2025 4:37 PM EDT XR COMPARISON IMAGES Routine 06/30/2025 4:34 PM EDT XR COMPARISON IMAGES Routine 06/30/2025 4:34 PM EDT HEPATITIS C ANTIBODY Routine 05/26/2025 3:02 PM EDT from Last 3 Months or Most Recently Relevant to Health Maintenance Results * X-ray Comparison Images (06/30/2025 4:37 PM EDT) Only the most recent of3 resultswithin the time period is included. Narrative EXTERNAL - 06/30/2025 4:37 PM EDT Images associated with this accession number were presented to us for comparison to an examination performed here. us Provider Not In System IMG DIAGNOSTIC IMAGING OR DERABLES Final Result EXTERNAL * Hepatitis C Antibody (05/26/2025 3:02 PM EDT) HCV Ab Nonreactive Nonreactive 05/26/2025 7:36 PM EDT [facility] Comment:Health Department no tified in accordance with reportable infectious disease guidelines. Serum 05/26/2025 3:02 PM EDT 05/26/2025 3:06 PM EDT Narrative HEALTH LAB - 05/26/2025 7:36 PM EDT Antibodies to HCV not detected; does not exclude the possibility of exposure to HCV. Lewis Connelly MD LAB BLOOD ORDERABLES Final Resul t [facility] [address] [place] [address], [facility] from Last 3 Months or Most Recently Relevant to Health Maintenance Insurance [employer] [facility] A AND B Advance Directives For more information, please contact: [phone] * Full Code (Latest Code Status on File) Date Activated Date Inactivated Comments 05/25/2025 6:55 PM 05/28/2025 5:44 PM Care Teams Certified Lactation Educator Relationship Specialty Start Date End Date Manas Jenkins MD [address] [place] [address] PCP - General Family Medicine 10/14/17
--- OUTSIDE RECORDS SUMMARY | 2025-09-14 15:48 | XMS_ITS | Encounter Summary ---
[facility] Address [address] [place] [address] Care Team Providers Care Anodic Treater Name Role Phone Manas Jenkins MD Primary Care Provider + Reason for Visit * Reason Comments Med Refill Encounter Details Date Type Department Care Team (Late Contact Info) Description 08/17/2025 Refill [facility] MEDICINE [address] [facility] [place] [address] Manas Jenkins MD [address] [place] [address] Hypercholesterolemia 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 Tobacco Use Types Packs/Day Years [...] Description 09/20/2025 11:45 AM EDT Office Visit [facility] MEDICINE [address] [facility] [place] [address] Manas Jenkins MD [address] [place] [address] documented as of this encounter Visit Diagnoses Diagnosis Hypercholesterolemia Pure hypercholesterolemia documented in this encounter Additional Health Concerns Assessment Noted Time PHQ-2 Depression Total Score: 1 11/27/19 24 1:57 PM EST documented as of this encounter Care Teams Anodic Treater Relationship Specialty Start Date End Date Manas Jenkins MD [address] [address] PCP - General Family Medicine 05/02/22 documented as of this encounter
--- OUTSIDE RECORDS SUMMARY | 2025-09-14 15:48 | XMS_ITS | Encounter Summary ---
[facility] Address [address] [place] [address] Care Team Providers Care Daycare Provider Name Role Phone Manas Jenkins MD Primary Care Provider + Reason for Visit * Reason Onset Date Comments New Med Request 07/28/2025 Encounter Details Date Type Department Care Team (Late st Contact Info) Description 07/28/2025 Telephone [facility] MEDICINE [address] [place] [address] Manas Jenkins MD [address] [place] [address] New Med Request 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 Tobacco Use Types Packs/Day Years [...] encounter Miscellaneous Notes * Telephone Encounter - Zenobia Matthews RegSched Rep - 07/29/2025 1:14 PM EDT Name: Laura Mallory Relationship: Self Best Callback Number: [phone] [facility] PROVIDED THE RELAY MESSAGE FROM THE OFFICE Hub to relay: I talked to it sounds like a common cold that is going around, recommend to take dayquil,Nyquil. If not better Will need an appt. PATIENT: VOICED UNDERSTANDING AND HAS NO FURTHER QUESTIONS AT THIS TIME ADDITIONAL INFORMATION: * Telephone Encounter - Leelee Whaley MA - 07/28/2025 8:35 AM EDT Attempted to call pt, no answer, LVM. Hub to relay: I talked to it sounds like a common cold that is going around, recommend to take dayquil,Nyquil. If not better Will need an appt. * Telephone Encounter - Lorena Chawla RegSched Rep - 07/28/2025 8:05 AM EDT Caller: Adal Mallory Relationship: Emergency Contact Best call back number: [phone] What medication are you requesting: What are your current symptoms: NAUSEA, SORE THROAT, CHEST CONGESTION, BURNING URINATION How long have you been experiencing symptoms: ABOUT 4 DAYS, URINATION ISSUES HAVE EXISTED FOR ABOUTA MONTH Have you had these symptoms before: [] Yes [x] No Have you been treated for these symptoms before: [] Yes [x] No If a prescription is needed, what is your preferred pharmacy and phone number: [facility] [place] - [address] [facility] - [phone] [facility] [phone] Additional notes: PATIENT HAD AN APPOINTMENT TODAY, BUT HAD TO CANCEL IT DUE TO FEELING TOO BAD TO COME. SHE HAS NAUSEA AND VOMITING ON TOP OF THE SINUS SYMPTOMS. WOULD LIKE TO SEE IF WE CAN CALL IN A MEDICATION FOR HER. documented in this encounter Plan of Treatment Upcoming Encounters Date Type Department Care Team (Late st Contact Info) Description 09/20/2025 11:45 AM EDT Office Visit [facility] MEDICINE [address] [place] [id number] Manas Jenkins MD [address] [place] [address] documented as of this encounter Visit Diagnoses Not on filedocumented in this encounter Additional Health Concerns Assessment Noted Time PHQ-2 Depression Total Score: 1 11/27/19 24 1:57 PM EST documented as of this encounter Care Teams Daycare Provider Relationship Specialty Start Date End Date Manas Jenkins MD [address] [place] [address] PCP - General Family Medicine 05/02/22 documented as of this encounter
--- OUTSIDE RECORDS SUMMARY | 2025-09-14 15:48 | XMS_ITS | Encounter Summary ---
[facility] Address [address] [place] [address] Care Team Providers Care Home Health Care Case Manager Name Role Phone Manas Jenkins MD Primary Care Provider + Reason for Visit * Reason Onset Date Comments Med Refill 01/16/2023 Encounter Details Date Type Department Care Team (Late st Contact Info) Description 01/16/2023 Refill [facility] MEDICINE [address] [place] [address] Manas Jenkins MD [address] [place] [address] Migraine without aura and without [...] Mallory Relationship: Self Best call back number: [phone] Requested Prescriptions: Requested Prescriptions Pending Prescriptions Disp [...] Day. Pharmacy where request should be sent: [facility] [address] [phone] PH - [phone] FX Additional details provided by patient: PATIENT [...] Description 09/20/2025 11:45 AM EDT Office Visit [facility] MEDICINE [address] [facility] [place] [address] Manas Jenkins MD [address] [place] [address] documented as of this encounter Visit Diagnoses Diagnosis Migraine without aura and without status migrainosus, not intractable Lumbar degenerative disc disease documented in this encounter Additional Health Concerns Assessment Noted Time PHQ-2 Depression Total Score: 2 01/07/20 23 2:21 PM EST documented as of this encounter Care Teams Home Health Care Case Manager Relationship Specialty Start Date End Date Manas Jenkins MD [address] [place] [address] PCP - General Family Medicine 05/02/22 documented as of this encounter
--- OUTSIDE RECORDS SUMMARY | 2025-09-14 15:48 | XMS_ITS | Clinical Summary ---
Author Organization [facility] Address [address] [place] [address] Care Team Providers Care Assembler Camper Name Role Phone Stevo Salter MD Primary Care Provider [phone] 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 Tobacco Use Types Packs/Day Years [...] 2009 [facility]-Zoster Vaccines (1 of 2) 2009 [id number] Vaccine (1 - 20 24-25 season) 2025 [facility]-Influenza Vaccine (#1) 2025 [facility]-RSV Vaccine: 60+ [...] age to complete this topic Insurance [id number] [place] [id number] MEDICARE [place]ID[place] Care Teams Assembler Camper Relationship Specialty Start Date End Date Stevo Salter MD [address] [place] [address] #1 #1 [place] [id number] PCP - General 5/14/21
--- OUTSIDE RECORDS SUMMARY | 2025-09-14 15:48 | XMS_ITS | Clinical Summary ---
[facility] Address [address] [place] [address] Care Team Providers Care Pretzel Packer Name Role Phone Manas Jenkins MD Primary [...] MG tablet Take 1 tablet by mouth Take As Directed. Take 100 mg in a.m. and 150 mg in p.m. 11/04/20 23 Active famotidine (PEPCID) 20 MG tablet Take 1 tablet by mouth Daily. 12/27/19 24 Active Linzess 72 MCG capsule capsule Take 1 capsule by mouth Every Morning Before Breakfast. 04/29/20 25 Active DULoxetine (CYMBALTA) 60 MG capsuleIndications :Chronic right-sided low back pain with right-sided sciatica Take 1 capsule by mouth Daily. 30 capsule 3 05/20/20 25 Active ondansetron ODT (ZOFRAN-ODT) 4 MG disintegrating tablet DISSOLVE 1 TABLET IN MOUTH EVERY SIX HOURS NEEDED FOR NAUSEA AND VOMITING 10 tablet 06/27/20 25 Active promethazine (PHENERGAN) 25 MG tablet Take 1 tablet by mouth Every 6 (Six) Hours As Needed for Nausea or Vomiting. 30 tablet 06/27/20 25 Active furosemide (LASIX) 80 MG tabletIndications: Chronic diastolic (congestive) heart failure Take 1 tablet by mouth Daily. 06/30/20 25 Active LORazepam (ATIVAN) 0.5 MG tabletIndications: Chronic anxiety Take 1 tablet by mouth 2 (Two) Times a Day As Needed for Anxiety. 60 tablet 07/14/20 25 Active magnesium oxide (MAG-OX) 400 MG tabletIndications: Hypomagnesemia Take 1 tablet by mouth Daily. 60 tablet 1 07/15/20 25 Active brompheniramine-ps eudoephedrine-DM 30-2-10 MG/5ML syrup Take 5 mL by mouth 4 (Four) Times a Day As Needed for Allergies. 120 mL 08/12/20 25 Active hydrOXYzine (ATARAX) 25 MG tablet Take 1 tablet by mouth 2 (Two) Times a Day. 60 tablet 2 08/15/20 25 Active Cholecalciferol (Vitamin D3) 50 MCG (2000 UT) capsule TAKE 1 CAPSULE BY MOUTH ONCE DAILY 30 capsule 3 08/17/20 25 Active atorvastatin (LIPITOR) 40 MG tabletIndications: Hypercholesterolem ia TAKE 1 TABLET BY MOUTH EVERY NIGHT. 90 tablet 08/17/20 25 Active gabapentin (NEURONTIN) 100 MG capsuleIndications :Chronic right-sided low back pain with right-sided sciatica TAKE 1 CAPSULE BY MOUTH THREE TIMES DAILY MAY CAUSE DROWSINESS* * 90 capsule 09/06/20 25 Active traMADol (ULTRAM) 50 MG tabletIndications: Primary osteoarthritis of right knee,Chronic right-sided low back pain with right-sided sciatica TAKE 1 TABLET BY MOUTH EVERY 8 (EIGHT) HOURS NEEDED FOR MODERATE PAIN. 90 tablet 09/08/20 25 Active Cholecalciferol (Vitamin D3) 50 MCG (2000 UT) capsule TAKE 1 CAPSULE BY MOUTH ONCE DAILY 30 capsule 4 03/04/20 25 025 Discontinued atorvastatin (LIPITOR) 40 MG tabletIndications: Hypercholesterolem ia Take 1 tablet by mouth Every Night. 90 tablet 05/20/20 25 025 Discontinued gabapentin (NEURONTIN) 100 MG capsuleIndications :Chronic right-sided low back pain with right-sided sciatica TAKE 1 CAPSULE BY MOUTH THREE TIMES DAILY MAY CAUSE DROWSINESS* * 90 capsule 08/08/20 25 025 Discontinued traMADol (ULTRAM) 50 MG tabletIndications: Primary osteoarthritis of right knee,Chronic right-sided low back pain with right-sided sciatica Take 1 tablet by mouth Every 8 (Eight) Hours As Needed for Moderate Pain. 90 tablet 08/08/20 25 025 Discontinued Active Problems Problem Noted Date Diagnosed Date [...] Encounters Date Type Department Care Team Description 09/08/[address] [facility] [address] [phone] Manas Jenkins MD Primary osteoarthritis of right knee; Chronic right-sided low back pain with right-sided sciatica 09/06/[address] [facility] [address] [address] Manas Jenkins MD Chronic right-sided low back pain with right-sided sciatica 08/17/[address] [facility] [address] [address] Manas Jenkins MD Hypercholesterolemia 08/15/[address] [facility] [address] [place] [address] Manas Jenkins MD 08/09/[address] [facility] [address] [place] [address] Manas Jenkins MD New Med Request 08/07/2025 Refill [facility] [address] [place] [address] Manas Jenkins MD Chronic right-sided low back pain with right-sided sciatica; Primary osteoarthritis of right knee; Chronic right-sided low back pain with right-sided sciatica 07/28/2025 Telephone [facility] [address] [place] [address] Manas Jenkins MD New Med Request 07/15/2025 Results Follow-Up [facility] [address] [place] [address] Manas Jenkins MD 07/14/2025 11:15 AM EDT Office Visit [facility] [address] [place] [address] Manas Jenkins MD Hypomagnesemia (Primary Dx); Hypokalemia; Chronic anxiety; Chronic anxiety 07/14/2025 Travel 07/11/2025 Transitional Care Management Telephone Encounter [facility] [address] [place] [address] Fernanda Galeano, CISCO 07/08/2025 Readmission Management [facility] [address] [place] [address] Shruthi Leone, RN 07/08/2025 Telephone [facility] [address] [place] [address] Manas Jenkins MD Hospital Follow Up Visit 07/07/[address] [facility] [address] [place] [address] Manas Jenkins MD Primary osteoarthritis of right knee; Chronic right-sided low back pain with right-sided sciatica 07/06/[address] [facility] [address] [place] [address] Manas Jenkins MD REQUEST CALL BACK 06/30/2025 10:00 AM EDT Office Visit [facility] [address] [place] [address] Manas Jenkins MD Cystitis (Primary Dx); Chronic diastolic (congestive) heart failure; Nausea; Hypotension, unspecified hypotension type 06/30/2025 Travel 06/27/[address] [facility] [address] [place] [address] Manas Jenkins MD 06/27/[address] [facility] [address] [place] [address] Manas Jenkins MD CALLBACK 06/26/[address] [facility] [address] [place] [address] Manas Jenkins MD 06/22/[address] [facility] [address] [address] Manas Jenkins MD MEDICATION QUESTION 06/17/[address] [facility] [address] [place] [address] Manas Jenkins MD 06/15/2025 Telephone [facility] [address] [place] [address] Manas Jenkins MD Med Management 06/15/2025 Telephone [facility] [address] [place] [address] Manas Jenkins MD Leg Swelling from Last 3 Months Immunizations Immunization Administration [...] Sign Reading Time Taken Comments Blood Pressure 105/62 07/14/2025 11:04 AM EDT Pulse 104 07/14/2025 11:04 AM EDT Temperature 36.7 C (98 F) 07/14/2025 11:04 AM EDT Respiratory Rate 20 07/14/2025 11:04 AM EDT Oxygen Saturation 96% 07/14/2025 11:04 AM EDT Inhaled Oxygen Concentration - - Weight 111 kg (245 lb 9.6 oz) 07/14/2025 11:04 A M EDT Height 165.1 cm (5' 5 ) 07/14/2025 11:04 AM EDT Body Mass Index 40.87 07/14/2025 11:04 AM EDT Plan of Treatment Upcoming Encounters Date Type Department Care Team (Late st Contact Info) Description 09/20/2025 11:45 AM EDT Office Visit [facility] [address] [address] Manas Jenkins MD [address] [place] [address] Health Maintenance Due Date Last Done Comments DXA SCAN 1959 COVID-19 Vaccine (#1) 1964 Pneumococcal Vaccine 50+ (1 of 2 - PCV) 1978 COLOGUARD 2004 COLON CANCER SCREENING [address] COLONOGRAPHY 2004 FIT Testing (1 year) 2004 ZOSTER VACCINE (1 of 2) 2009 FECAL OCCULT BLOOD TEST 12/03/2017 12/03/19 17, 08/31/2015, 07/30/2013 INFLUENZA VACCINE 06/24/2025 ANNUAL WELLNESS VISIT 11/04/2025 11/04/2024 , 11/04/2024, [...] Date/Time Associated Diagnosis Comments SCANNED - LABS 09/12/2025 SCANNED - LABS 09/12/2025 SCANNED - LABS 09/12/2025 SCANNED - IMAGING 09/12/2025 BASIC METABOLIC PANEL Routine 07/14/2025 11:52 AM EDT Hypomagnesemia MAGNESIUM Routine 07/14/2025 11:52 AM EDT Hypomagnesemia SCANNED EKG 07/06/2025 SCANNED - LABS 07/06/2025 SCANNED - LABS 07/06/2025 SCANNED - LABS 07/06/2025 SCANNED - LABS 07/06/2025 SCANNED - LABS 07/06/2025 SCANNED - LABS 07/06/2025 SCANNED - IMAGING 07/06/2025 SCANNED - IMAGING 07/06/2025 SCANNED - IMAGING 07/06/2025 SCANNED - LABS 06/17/2025 SCANNED - LABS 06/17/2025 SCANNED - LABS 06/17/2025 SCANNED - LABS 06/17/2025 SCANNED - LABS 06/17/2025 SCANNED - LABS 06/17/2025 SCANNED - LABS 06/17/2025 SCANNED - LABS 06/17/2025 SCANNED - LABS 06/17/2025 SCANNED - LABS 06/17/2025 SCANNED - LABS 06/17/2025 SCANNED - LABS 06/17/2025 SCANNED - LABS 06/17/2025 SCANNED - LABS 06/17/2025 SCANNED - IMAGING 06/17/2025 LIPID PANEL Routine 05/20/2025 3:59 PM EDT Hypercholesterolemi a from Last 3 Months or Most Recently Relevant to Health Maintenance Results * IMAGING SCANNED (09/12/2025) Only the most recent of5 resultswithin the time period is included. Anatomical Region Laterality Modality Radiographic Destiny ging Manas Jenkins MD IMG DIAGNOSTIC IMAGING O RDERABLES Final Result * LABS SCANNED (09/12/2025) Only the most recent of23 resultswithin the time period is included. Manas Jenkins MD LAB BLOOD ORDERABLES Fin al Result * (ABNORMAL) Magnesium (07/14/2025 11:52 AM EDT) Magnesium 1.4(L) 1.6 - 2.3 mg/dL [facility] Blood 07/14/2025 11:5 2 AM EDT 07/14/2025 Narrative [facility] (AMBULATORY) - 07/15/2025 7:09 AM EDT Performed at: - Lab[address] [id number] Rod Cup Filler: Dave Escudero PhD, Phone: [phone] Patient Fasting: N Manas Jenkins MD LAB BLOOD ORDERABLES Fin al Result [facility] (AMBULATORY) [address] [place] [address], [facility] [address] [place] [address], * (ABNORMAL) Basic Metabolic Panel (07/14/2025 11:52 AM EDT) [facility] Glucose 101(H) 70 - 99 mg/dL [facility] BUN 12 8 - 27 mg/dL [facility] Creatinine 1.27(H) 0.57 - 1.00 mg/dL [facility] EGFR Result 47(L) >59 mL/min/1.7 3 [facility] BUN/Creatinine Ratio 9(L) 12 - 28 [facility] Sodium 134 134 - 144 mmol/L [facility] Potassium 3.9 3.5 - 5.2 mmol/L [facility] Chloride 96 96 - 106 mmol/L [facility] Total CO2 18(L) 20 - 29 mmol/L [facility] Calcium 9.0 8.7 - 10.3 mg/dL [facility] Blood 07/14/2025 11:5 2 AM EDT 07/14/[address] [facility] (AMBULATORY) - 07/15/2025 7:09 AM EDT Performed at: [facility] - [facility] [address] [place] [id number] Rod Cup Filler: Dave Escudero PhD, Phone: [phone] Patient Fasting: N Manas Jenkins MD LAB BLOOD ORDERABLES Fin al Result Performing Organization Address City/[facility]/ZIP Co de Phone Number [facility] [address] [place] [address], [place] [phone] [facility] [address] [place] [id number], * ECG Scan (07/06/2025) Manas Jenkins MD ECG ORDERABLES Final Re sult * Lipid Panel (05/20/2025 3:59 PM EDT) [...] 8:11 AM EDT Performed at: 01 - [address] [id number] Rod Cup Filler: Dave Escudero PhD, Phone: [phone] Patient Fasting: Y Manas Jenkins MD LAB BLOOD ORDERABLES Fin al Result [facility] [facility] [place] (AMBULATORY) [address] [place] [address], [place] [phone] [facility] [address] [place] [address], [place] [phone] from Last 3 Months or Most Recently Relevant to Health Maintenance Insurance MEDICARE A & B Member Subscriber Plan / Payer (Ef fective 2000-Present) Name:Laura Mallory Member ID:[id number] Relation to Subscriber:Self Name:Laura Mallory Subscriber ID:[id number] Payer ID:[id number] Group ID:Not on file Type:Not on file Address: [address] Care Teams Pretzel Packer Relationship Specialty Start Date End Date Manas Jenkins MD [address] [place] [address] PCP - General Family Medicine 05/02/22
--- OUTSIDE RECORDS SUMMARY | 2025-09-14 15:48 | XMS_ITS | Clinical Summary ---
Author Organization [facility] Address [facility] [place] [address] Phone Care Team Providers Care Benzene Operator Name Role Phone Manas Jenkins Bl[place] Primary [...] Density Screening 2024 COVID-19 Vaccine (1 - 2024-2 6 season) 2025 Influenza Vaccine (#1) 2025 Hepatitis B Vaccine Aged Out No longe r eligible based on patient's age to complete this topic Meningococcal B Vaccine Aged Out No l onger eligible based on patient's age to complete this topic Insurance [address] [place] [id number] [place] [address] [facility] [id number] Care Teams Benzene Operator Relationship Specialty Start Date End Date Manas Jenkins [address] [place] [address] PCP - General 08/28/10
--- OUTSIDE RECORDS SUMMARY | 2025-09-14 15:48 | XMS_ITS | Encounter Summary ---
[facility] Address [address] [place] [address] Care Team Providers Care Mobile Home Park Manager Name Role Phone Manas Blancas MD Primary Care Provider + Reason for Visit * Reason Onset Date Comments Med Refill 09/17/2022 Encounter Details Date Type Department Care Team (Late st Contact Info) Description 09/17/2022 Refill [facility] [address] [place] [address] Manas Blancas MD [address] [place] [address] Lumbar degenerative disc disease Social [...] Mallory Relationship: Self Best call back number: [phone] Requested Prescriptions: Requested Prescriptions Pending Prescriptions Disp Refills ??? oxyCODONE-acetaminophen (PERCOCET) 10-325 MG per tablet 90 tablet 0 Sig: Take 1 tablet by mouth Every 8 (Eight) Hours As Needed for Severe Pain. ??? potassium chloride (K-DUR,KLOR-CON) 20 MEQ CR tablet 90 tablet 2 Sig: Take 1 tablet by mouth 3 (Three) Times a Day. Pharmacy where request should be sent: [facility] [address] [facility] [phone] [facility] [phone] Additional details provided by patient: PATIENT STATED [...] Description 09/20/2025 11:45 AM EDT Office Visit [facility] [address] [place] [address] Manas Blancas MD [address] [address] documented as of this encounter Visit Diagnoses Diagnosis Lumbar degenerative disc disease documented in this encounter Additional Health Concerns Assessment Noted Time PHQ-2 Depression Total Score: 6 05/02/20 22 12:07 PM EDT documented as of this encounter Care Teams Mobile Home Park Manager Relationship Specialty Start Date End Date Manas Blancas MD [address] [address] PCP - General Family Medicine 05/02/22 documented as of this encounter
--- OUTSIDE RECORDS SUMMARY | 2025-09-14 15:48 | XMS_ITS | Encounter Summary ---
[facility] Address [address] [place] [address] Care Team Providers Care Spinning Lathe Operator Automatic Name Role Phone Manas Jenkins MD Primary Care Provider + Reason for Visit * Reason Comments Med Refill Encounter Details Date Type Department Care Team (Late Contact Info) Description 08/07/2025 Refill [facility] [address] [facility] [place] [address] Manas Jenkins MD [address] [place] [address] Chronic right-sided low back pain with right-sided [...] Description 09/20/2025 11:45 AM EDT Office Visit [facility] [address] [place] [address] Manas Jenkins MD [address] [place] [address] documented as of this encounter Visit Diagnoses Diagnosis Chronic right-sided low back pain with right-sided sciatica Primary osteoarthritis of right knee documented in this encounter Additional Health Concerns Assessment Noted Time PHQ-2 Depression Total Score: 1 11/27/19 24 1:57 PM EST documented as of this encounter Care Teams Spinning Lathe Operator Automatic Relationship Specialty Start Date End Date Manas Jenkins MD [address] [place] [address] PCP - General Family Medicine 05/02/22 documented as of this encounter
--- OUTSIDE RECORDS SUMMARY | 2025-09-14 15:48 | XMS_ITS | Encounter Summary ---
[facility] Address [address] [place] [address] Care Team Providers Care Shot Peening Operator Name Role Phone Manas Jenkins MD Primary Care Provider + Reason for Visit * Reason Comments Med Refill Encounter Details Date Type Department Care Team (Late st Contact Info) Description 09/08/2025 Refill [facility] [address] [place] [address] Manas Jenkins MD [address] [place] [address] Primary osteoarthritis of right knee; [...] Description 09/20/2025 11:45 AM EDT Office Visit [facility] [address] [place] [address] Manas Jenkins MD [address] [facility] [place] [address] documented as of this encounter Visit Diagnoses Diagnosis Primary osteoarthritis of right knee Chronic right-sided low back pain with right-sided sciatica documented in this encounter Additional Health Concerns Assessment Noted Time PHQ-2 Depression Total Score: 1 11/27/19 24 1:57 PM EST documented as of this encounter Care Teams Shot Peening Operator Relationship Specialty Start Date End Date Manas Jenkins MD [address] [place] [address] PCP - General Family Medicine 05/02/22 documented as of this encounter
--- OUTSIDE RECORDS SUMMARY | 2025-09-14 15:48 | XMS_ITS | Encounter Summary ---
[facility] Address [address] [place] [address] Care Team Providers Care Lacquer Machine Feeder Name Role Phone Manas Jenkins MD Primary Care Provider + Reason for Visit * Reason Onset Date Comments New Med Request 08/09/2025 Encounter Details Date Type Department Care Team (Late st Contact Info) Description 08/09/2025 Telephone [facility] [address] [place] [address] Manas Jenkins MD [address] [place] [address] New Med Request 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 [...] encounter Miscellaneous Notes * Telephone Encounter - Kusum Pryor RegSched Rep - 08/11/2025 9:04 AM EDT Caller: Laura Mallory Relationship: Self Best call back number: [phone] What was the call regarding: PATIENT IS CALLING AND WOULD LIKE TO CHECK ON THE STATUS OF THIS. * Telephone Encounter - Zenobia Matthews RegSched Rep - 08/09/2025 3:22 PM EDT Caller: Adal Mallory Relationship: Emergency Contact Best call back number: [phone] What medication are you requesting: COUGH MEDICATION What are your current symptoms: CHEST CONGESTION, COUGH Have you had these symptoms before: [x] Yes [] No Have you been treated for these symptoms before: [x] Yes [] No If a prescription is needed, what is your preferred pharmacy and phone number: [facility] - [place] - [address] [facility] - [phone] [facility] [phone] Additional notes:PATIENT WAS INSTRUCTED TO TAKE A DAYQUIL AND NIGHTQUIL COMBO BUT THAT IS NOT WORKING, REQUESTING TO GET SOMETHING CALLED IN documented in this encounter Plan of Treatment Upcoming Encounters Date Type Department Care Team (Late st Contact Info) Description 09/20/2025 11:45 AM EDT Office Visit [facility] [address] [place] [address] Manas Jenkins MD [address] [place] [address] documented as of this encounter Visit Diagnoses Not on filedocumented in this encounter Additional Health Concerns Assessment Noted Time PHQ-2 Depression Total Score: 1 11/27/19 24 1:57 PM EST documented as of this encounter Care Teams Lacquer Machine Feeder Relationship Specialty Start Date End Date Manas Jenkins MD [address] [place] [address] PCP - General Family Medicine 05/02/22 documented as of this encounter
--- OUTSIDE RECORDS SUMMARY | 2025-09-14 15:48 | XMS_ITS | Encounter Summary ---
[facility] Address [address] [place] [address] Care Team Providers Care Orthodontic Band Maker Name Role Phone Manas Jenkins MD Primary Care Provider + Reason for Visit * Reason Onset Date Comments Med Refill 03/01/2025 Encounter Details Date Type Department Care Team (Late st Contact Info) Description 03/01/2025 Refill [facility] [address] [place] [address] Manas Jenkins MD [address] [place] [address] Primary osteoarthritis of right knee; [...] Jenkins is out this wk. Suggested she meat pickler the remaining refill at the pharmacy until he returns. She understood. * Telephone Encounter - Lorena Chawla RegSched Rep - 03/01/2025 8:11 AM EDT Caller: Laura Mallory Relationship: Self Best call back number: [phone] Requested Prescriptions: Requested Prescriptions Pending Prescriptions Disp Refills traMADol (ULTRAM) 50 MG tablet 90 tablet 1 Sig: Take 1 tablet by mouth Every 8 (Eight) Hours As Needed for Moderate Pain. Pharmacy where request should be sent: [facility] - [address] [phone] [facility] [phone] Last office visit with prescribing clinician: 11/04/2024 [...] voicemail: [] Yes [x] No Raymond Romero 03/01/25 08:12 EDT documented in this encounter Plan of Treatment Upcoming Encounters Date Type Department Care Team (Late st Contact Info) Description 09/20/2025 11:45 AM EDT Office Visit [facility] [address] [facility] [place] [id number] Manas Jenkins MD [address] [place] [address] documented as of this encounter Visit Diagnoses Diagnosis Primary osteoarthritis of right knee Chronic right-sided low back pain with right-sided sciatica documented in this encounter Additional Health Concerns Assessment Noted Time PHQ-2 Depression Total Score: 1 11/27/19 24 1:57 PM EST documented as of this encounter Care Teams Orthodontic Band Maker Relationship Specialty Start Date End Date Manas Jenkins MD [address] [place] [address] PCP - General Family Medicine 05/02/22 documented as of this encounter
--- OUTSIDE RECORDS SUMMARY | 2025-09-14 15:48 | XMS_ITS | Encounter Summary ---
[facility] Address [address] [place] [address] Care Team Providers Care Glass Glazier Name Role Phone Manas Jenkins MD Primary Care Provider + Reason for Visit * Reason Onset Date Comments Med Refill 08/15/2025 Encounter Details Date Type Department Care Team (Late st Contact Info) Description 08/15/2025 Refill [facility] [address] [place] [address] Manas Jeknins MD [address] [place] [address] 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 Tobacco Use Types [...] encounter Miscellaneous Notes * Telephone Encounter - Karina Becerra RegSched Rep - 08/15/2025 12:21 PM EDT Caller: Laura Mallory Relationship: Self Best call back number: [phone] Requested Prescriptions: Requested Prescriptions Pending Prescriptions Disp Refills hydrOXYzine (ATARAX) 25 MG tablet 60 tablet 2 Pharmacy where request should be sent: [facility] [place] [address] [phone] [facility] [phone] FX Last office visit with prescribing clinician: 07/14/2025 Last telemedicine visit with prescribing clinician: Visit date not found Next office visit with prescribing clinician: 08/25/2025 Additional details provided by patient: THE PATIENT IS OUT OF THE MEDICATION AND SHE STATES THAT SHE IS ITCHING LIKE CRAZY Does the patient have less than a 3 day supply: [x] Yes [] No Would you like a call back once the refill request has been completed: [] Yes [x] No If the office needs to give you a call back, can they leave a voicemail: [] Yes [x] No Raymond Gonzalez 08/15/25 12:25 EDT documented in this encounter Plan of Treatment Upcoming Encounters Date Type Department Care Team (Late st Contact Info) Description 09/20/2025 11:45 AM EDT Office Visit [facility] [address] [place] [phone] Manas Jenkins MD [address] [place] [address] documented as of this encounter Visit Diagnoses Not on filedocumented in this encounter Additional Health Concerns Assessment Noted Time PHQ-2 Depression Total Score: 1 11/27/19 24 1:57 PM EST documented as of this encounter Care Teams Glass Glazier Relationship Specialty Start Date End Date Manas Jenkins MD [address] [address] PCP - General Family Medicine 05/02/22 documented as of this encounter
--- OUTSIDE RECORDS SUMMARY | 2025-09-14 15:49 | XMS_ITS | Encounter Summary ---
Author Organization [facility] Address [address] [place] [address] Care Team Providers Care Creative Writing English Professor Name Role Phone Manas Jenkins MD Primary Care Provider + Reason for Visit * Reason Comments Med Refill Encounter Details Date Type Department Care Team (Late Contact Info) Description 05/24/[address] [facility] MEDICINE [address] [place] [address] Manas Jenkins MD [address] [place] [address] Lumbar degenerative disc disease Social [...] Description 09/20/2025 11:45 AM EDT Office [facility] [address] [place] [address] Manas Jenkins MD [address] [place] [address] documented as of this encounter Visit Diagnoses Diagnosis Lumbar degenerative disc disease documented in this encounter Additional Health Concerns Assessment Noted Time PHQ-2 Depression Total Score: 6 05/02/20 22 12:07 PM EDT documented as of this encounter Care Teams Creative Writing English Professor Relationship Specialty Start Date End Date Manas Jenkins MD [address] [place] [address] PCP - General Family Medicine 05/02/22 documented as of this encounter
--- OUTSIDE RECORDS SUMMARY | 2025-09-14 15:49 | XMS_ITS | Encounter Summary ---
[facility] Address [address] [place] [address] Care Team Providers Care House Admin Name Role Phone Manas Jenkins MD Primary Care Provider + Reason for Visit * Reason Onset Date Comments Hospital Follow Up Visit 07/08/2025 Encounter Details Date Type Department Care Team (Late st Contact Info) Description 07/08/2025 Telephone [facility]INE [address] [place] [address] Manas Jenkins MD [address] [place] [address] Hospital Follow Up Visit 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 Tobacco Use Types Packs/Day Years [...] encounter Miscellaneous Notes * Telephone Encounter - Tony Jamakodak Hoover - 07/08/2025 10:46 AM EDT Caller: Relationship to patient: Best call back number: [phone] New or established patient? [] New [x] Established Date of discharge: 07/08/2025 Facility discharged from: [facility] Diagnosis/Symptoms: HYPOMAGNESEMIA AND UTI Length of stay (If applicable): 2 DAYS Specialty Only: Did you see a [facility] provider? [] Yes [x] No If so, who? Additional Details: documented in this encounter Plan of Treatment Upcoming Encounters Date Type Department Care Team (Late st Contact Info) Description 09/20/2025 11:45 AM EDT Office Visit [facility] [address] [place] [phone] Manas Jenkins MD [address] [place] [address] documented as of this encounter Visit Diagnoses Not on filedocumented in this encounter Additional Health Concerns Assessment Noted Time PHQ-2 Depression Total Score: 1 11/27/19 24 1:57 PM EST documented as of this encounter Care Teams House Admin Relationship Specialty Start Date End Date Manas Jenkins MD [address] [place] [address] PCP - General Family Medicine 05/02/22 documented as of this encounter
--- OUTSIDE RECORDS SUMMARY | 2025-09-14 15:49 | XMS_ITS | Encounter Summary ---
[facility] [address] [place] [address] Care Team Providers Care Natural Gas Shothole Driller Name Role Phone Manas Jenkins MD Primary Care Provider + Reason for Visit * Reason Onset Date Comments Med Refill 05/22/2022 New Med Request 05/22/2022 Encounter Details Date Type Department Care Team (Late st Contact Info) Description 05/22/2022 Refill [facility]INE [address] [place] [address] Manas Jenkins MD [address] [place] [address] Lumbar degenerative disc disease Social [...] Mallory Relationship: Self Best call back number: [phone] What medication are you requesting: What are your current symptoms: COUGHING AND CHEST COLD (CONGESTION) AND A SMALL WHEEZE How long have you been experiencing symptoms: 2 DAYS Have you had these symptoms before: [x] Yes [] No Have you been treated for these symptoms before: [x] Yes [] No If a prescription is needed, what is your preferred pharmacy and phone number: [facility] [address] - [phone] [facility] [phone] FX Additional notes: PLEASE CALL TO ADVISE * Telephone Encounter - Joel Waldron RegSched Rep - 05/22/2022 1:34 PM EDT Caller: Laura Mallory Relationship: Self Best call back number: [phone] Requested Prescriptions: Requested Prescriptions Pending Prescriptions Disp Refills ??? oxyCODONE-acetaminophen (Percocet) 10-325 MG per tablet 90 tablet 0 Sig: Take 1 tablet by mouth Every 8 (Eight) Hours As Needed for Severe Pain . Pharmacy where request should be sent: [facility] [address] [facility] - [phone] [facility] [phone] FX Additional details provided by patient: Does the patient have less than a 3 day supply: [x] Yes [] No documented in this encounter Plan of Treatment Upcoming Encounters Date Type Department Care Team (Late st Contact Info) Description 09/20/2025 11:45 AM EDT Office Visit [facility] [address] [facility] [place] [address] Manas Jenkins MD [address] [place] [address] documented as of this encounter Visit Diagnoses Diagnosis Lumbar degenerative disc disease documented in this encounter Additional Health Concerns Assessment Noted Time PHQ-2 Depression Total Score: 6 05/02/20 22 12:07 PM EDT documented as of this encounter Care Teams Natural Gas Shothole Driller Relationship Specialty Start Date End Date Manas Jenkins MD [address] [facility] [place] [address] PCP - General Family Medicine 05/02/22 documented as of this encounter
--- OUTSIDE RECORDS SUMMARY | 2025-09-14 15:49 | XMS_ITS | Encounter Summary ---
[facility] Address [address] [place] [address] Care Team Providers Care Hvac Specialist Name Role Phone Manas Jenkins MD Primary Care Provider + Reason for Visit * Reason Comments Med Refill Encounter Details Date Type Department Care Team (Late Contact Info) Description 08/19/2022 Refill [facility] MEDICINE [address] [place] [address] Manas Jenkins MD [address] [place] [address] Lumbar degenerative disc disease Social [...] Description 09/20/2025 11:45 AM EDT Office Visit [facility]INE [address] [place] [address] Manas Jenkins MD [address] [place] [address] documented as of this encounter Visit Diagnoses Diagnosis Lumbar degenerative disc disease documented in this encounter Additional Health Concerns Assessment Noted Time PHQ-2 Depression Total Score: 6 05/02/20 22 12:07 PM EDT documented as of this encounter Care Teams Hvac Specialist Relationship Specialty Start Date End Date Manas Jenkins MD [address] [place] [address] PCP - General Family Medicine 05/02/22 documented as of this encounter
--- NOTE | 2025-09-14 15:52 | CT_ITS ---
PROCEDURE INFORMATION: Exam: CT Chest Without Contrast; Diagnostic Exam date and time: 09/14/2025 5:17 PM Age: 65 years old Clinical indication: Pain; Radiating; Additional info: Chest pain rad to back/abd pain TECHNIQUE: Imaging protocol: Diagnostic computed tomography of the chest without contrast. Radiation optimization: All CT scans at this facility use at least one of these dose optimization techniques: automated exposure control; mA and/or kV adjustment per patient size (includes targeted exams where dose is matched to clinical indication); or iterative reconstruction. COMPARISON: CT ANGIO CHEST PE PROTOCOL 07/06/2025 6:52 PM FINDINGS: Lungs: Bibasilar atelectasis less likely pneumonia Pleural spaces: Unremarkable. No pneumothorax. No pleural effusion. Heart: Cardiomegaly Lymph nodes: Unremarkable. No enlarged lymph nodes. Vasculature: 4 cm ascending aortic aneurysm. Bones/joints: Unremarkable. No acute fracture. Soft tissues: Unremarkable. IMPRESSION: No acute findings. 4 cm ascending aortic aneurysm without rupture
--- NOTE | 2025-09-14 15:52 | CT_ITS ---
PROCEDURE INFORMATION: Exam: CT Abdomen And Pelvis Without Contrast Exam date and time: 09/14/2025 5:17 PM Age: 65 years old Clinical indication: Abdominal pain; Additional info: Chest pain rad to back/abd pain TECHNIQUE: Imaging protocol: Computed tomography of the abdomen and pelvis without contrast. Radiation optimization: All CT scans at this facility use at least one of these dose optimization techniques: automated exposure control; mA and/or kV adjustment per patient size (includes targeted exams where dose is matched to clinical indication); or iterative reconstruction. COMPARISON: CT ABDOMEN PELVIS W CON 09/12/2025 2:07 PM FINDINGS: Lungs: Bibasilar atelectasis. Liver: Normal. No mass. Gallbladder and biliary ducts: Cholecystectomy Pancreas: Normal. No ductal dilation. Spleen: Calcifications in the spleen. No splenomegaly. Adrenal glands: Normal. No mass. Kidneys and ureters: Normal. No hydronephrosis. Stomach and bowel: Constipation. No colitis or bowel obstruction Appendix: No evidence of appendicitis. Intraperitoneal space: Unremarkable. No free air. No significant fluid collection. Vasculature: Unremarkable. No abdominal aortic aneurysm. Lymph nodes: Unremarkable. No enlarged lymph nodes. Urinary bladder: Unremarkable as visualized. Reproductive: Hysterectomy Bones/joints: Unremarkable. No acute fracture. Soft tissues: Unremarkable. IMPRESSION: No acute intra-abdominal or intrapelvic abnormality
--- NOTE | 2025-09-14 15:57 | ED_ITS ---
Discharge Plan Disposition Patient Disposition: Xfer Other Prescriptions Prescriptions: No Action omeprazole 20 mg capsule,delayed release(DR/EC) 20 mg PO DAILY celecoxib [Celebrex] 100 mg capsule 100 mg PO BID Qty: 60 2RF carvedilol 3.125 mg tablet 3.125 mg PO BID 30 Days Qty: 60 5RF Trelegy Ellipta 100-62.5-25 mcg blister with device 1 inh inhalation DAILY 90 Days Qty: 90 3RF topiramate 100 mg tablet See Rx Instructions PO .COMPLEX Qty: 75 4RF Rx Instructions: 100 mg (1 tablet) orally morning; 150 mg (1.5 tablet) night aspirin 81 mg Capsule 81 mg PO DAILY atorvastatin 40 mg tablet 40 mg PO HS famotidine 20 mg tablet 20 mg PO DAILY hydroxyzine HCl 25 mg tablet 25 mg PO BID gabapentin 100 mg capsule 100 mg PO TID duloxetine 60 mg capsule,delayed release(DR/EC) 60 mg PO DAILY cholecalciferol (vitamin D3) 50 mcg (2,000 unit) capsule 50 mcg PO DAILY bisacodyl [Dulcolax (bisacodyl)] 10 mg suppository 10 mg ME DAILY 2 Days Qty: 12 0RF magnesium citrate Solution 296 ml PO ONCE PRN (Reason: constipation) Qty: 296 0RF nitrofurantoin monohyd/m-cryst 100 mg capsule 100 mg PO BID 5 Days Qty: 10 0RF Rx Instructions: must administer with a meal/food sacubitril-valsartan [Entresto] 24-26 mg tablet 1 tab PO BID Linzess 72 mcg capsule 72 mcg PO DAILY Trelegy Ellipta 100-62.5-25 mcg blister with device 1 ea INHALATION DAILY furosemide 40 mg tablet 40 mg PO BIDL Patient Comments: TAKE 1 TABLET BY MOUTH EACH MORNING TAKE 1 TABLET BY MOUTH AT 3PM tramadol 50 mg tablet 50 mg PO TIDP PRN (Reason: Moderate Pain (Scale Score 5-6)) Referrals Follow up/Referrals: Manas Jenkins MD [Primary Care Provider, Medical] - See instructions Clinical Impressions Clinical Impression: Septic shock, Acute encephalopathy, FER (acute kidney injury), Ascending cholangitis, Multi-organ system dysfunction, Pancreatitis Print Language Print Language: Armenian Discharge ED Provider: Jaz Meeks General Adult HPI General Chief complaint: PAIN Stated complaint: weak, hurting all over, may be constipated Time Seen by Provider: 09/14/25 15:39 Mode of Arrival: Wheelchair Source of Information: Patient and Spouse Description of Symptoms (Recalled from ER Triage Doc. by RN): Pt presents with spouse for evaluation of increasing weakness and right sided flank pain. History of Present Illness HPI narrative: Patient is a 65-year-old female brought in today by her for altered mental status and not feeling well. I saw her in the emergency department a few days ago where she had what she describes as 2 weeks of not having a bowel movement and abdominal discomfort with nausea and vomiting. She did CT scan which showed thickening of the bladder wall and a nitrite positive urine she started light antibiotics and she and her both state that she was compliant with these and did get her medications filled. states that as soon as she got home she started feeling worse. She states that she has now chest pain back pain and continues to have some abdominal pain as well. Denies any urinary symptoms. Denies any cough fevers or chills. Has been states she has been very confused history is limited from her standpoint because of that. Related Data Home Medications ?Medication ?Instructions ?Recorded ?Confirmed atorvastatin 40 mg tablet 40 mg PO HS 11/22/24 5 cholecalciferol (vitamin D3) 50 50 mcg PO DAILY 09/12/25 mcg (2,000 unit) capsule duloxetine 60 mg capsule,delayed 60 mg PO DAILY 09/12/25 release famotidine 20 mg tablet 20 mg PO DAILY 11/22/2408/25 gabapentin 100 mg capsule 100 mg PO TID 11/22/2409/12 hydroxyzine HCl 25 mg tablet 25 mg PO BID 11/22/24 aspirin 81 mg capsule 81 mg PO DAILY 12/29/2408/25 omeprazole 20 mg capsule,delayed 20 mg PO DAILY 09/12/25 release fluticasone fur. 100 mcg-umeclid 1 ea inhalation DAILY 07/06/25 09/12/25 62.5 mcg-vilant 25 mcg inhalat.powder (Trelegy Ellipta) linaclotide 72 mcg capsule 72 mcg PO DAILY 07/06/25 (Linzess) sacubitril 24 mg-valsartan 26 mg 1 tab PO BID 07/06/25 09/12/25 tablet (Entresto) furosemide 40 mg tablet 40 mg PO BIDL 07/07/2509/12 tramadol 50 mg tablet 50 mg PO TIDP PRN Moderate P ain 07/07/25 09/12/25 (Scale Score 5-6) Previous Rx's ?Medication ?Instructions ?Recorded carvedilol 3.125 mg tablet 3.125 mg PO BID 30 days #60 tabs 06/20/25 fluticasone fur. 100 mcg-umeclid 1 inh inhalation RICK Y 90 days #90 07/21/25 62.5 mcg-vilant 25 mcg ea inhalat.powder (Trelegy Ellipta) celecoxib 100 mg capsule (Celebrex) 100 mg PO BID #60 caps 08/18/25 topiramate 100 mg tablet See Rx Instructions PO .COMP ANGEL 08/18/25 #75 tabs bisacodyl 10 mg rectal suppository 10 mg ME DAILY 2 da ys #12 ea 09/12/25 (Dulcolax (bisacodyl)) magnesium citrate 296 ml PO ONCE PRN constipat ion 09/12/25 #296 mL nitrofurantoin 100 mg PO BID 5 days #10 cap s 09/12/25 monohydrate/macrocrystals 100 mg capsule Allergies Allergy/AdvReac Type Severity Reaction Status Date / Time sumatriptan Allergy Severe Difficulty Verified 08/18/25 13:40 Breathing fexofenadine (FEXOFENADINE) Allergy Intermediate SICK Verified 08/18/25 13:40 amoxicillin (From AUGMENTIN) Allergy Unknown SOA Verified 08/18/25 13:40 clavulanic acid (From Allergy Unknown SOA Verified 08/18/25 13:40 AUGMENTIN) naproxen (NAPROXEN) Allergy Unknown SWELLING Verified 08/18/25 13:40 [facility] Disclaimer: The information contained in this section may have been updated after the patient was seen, as this information can be updated by other users. Medical History Hypomagnesemia Lactic acidosis Elevated d-dimer Dehydration Thrombocytosis Acute kidney injury superimposed on chronic kidney disease FER (acute kidney injury) Acute lactic acidosis Sepsis Abdominal pain Acute pain of left hip Ascending cholangitis Septic shock Bleeding internal hemorrhoids Hematuria Diverticulitis Bilateral hip pain Yeast vaginitis Atrophic vaginitis UTI (urinary tract infection) Hematuria Rectal discomfort Abdominal pain, lower Diarrhea Otitis externa UTI (urinary tract infection) Bronchitis Screening for malignant neoplasm of colon Nausea Upper abdominal pain Drug induced constipation Chronic constipation Bloating Urinary tract infectious disease Acute UTI Lower back pain Severe obesity with body mass index (BMI) of 36.0 to 36.9 with serious comorbidity Fall Dyspnea Skin tear of left upper extremity Fall Ileitis Accidental opiate poisoning Constipation Episodic migraine History of episodic migraine and good response to topiramate but still with an average of 2 headaches a week. Triptans are contraindicated. She was advised to increase topiramate to 100 mg in the morning and 150 mg at night. Acute herpes zoster neuropathy Sciatica Chest pain Anxiety state Anxiety and depression Arthritis Urinary tract infection History of COVID-19 Migraine History of stroke History of gastroesophageal reflux (GERD) History of anemia Insomnia COPD mixed type Oral dyskinesia Most likely secondary to prochlorperazine already discontinued by PCP Lung nodule Dyspnea on exertion Encounter for screening for malignant neoplasm of lung History of asthma Stopped smoking with greater than 30 pack year history Edema of both lower extremities Takotsubo cardiomyopathy Mediastinal lymphadenopathy Hilar lymphadenopathy Asthma exacerbation APARNA (obstructive sleep apnea) Noncompliant with CPAP treatment. Brain TIA Asthma Hyperglycemia A1c hemoglobin pending, follow-up with PCP for results. Tremor 09/08/2024: Initial good response to topiramate but worsening of tremor since last visit. Indications, possible side effects were reviewed once again with the patient and her including but not limited to nephrolithiasis, paresthesias, word finding difficulty, neuro glaucoma). APARNA (obstructive sleep apnea) Osteoarthritis She was wheelchair-bound at last appointment and currently ambulatory with a walker Hypertensive disorder Hyperlipidemia Gastroesophageal reflux disease Surgical History H/O elbow surgery LEFT History of carpal tunnel surgery of right wrist History of carpal tunnel surgery of left wrist H/O: History of arthroplasty of left shoulder H/O: hysterectomy History of cholecystectomy Family History Other Cancer 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 Smoking Status: Never smoker second hand exposure: Yes alcohol intake: former substance use type: denies use current occupational status: disabled Travel in the last 8 weeks?: None household members: spouse housing: other marital status: current occupational exposures/hazards: No caffeine: Yes Have you lived/traveled outside [place] in past 30 days?: No Contact w/someone who lives/traveled outside US past 30 days?: No Exposure to someone with infectious disease in past 14 days?: No Do you have a fever (greater than 100.4 F or 38 C)?: No Have you tested positive for COVID-19?: No Exposed to someone with COVID-19 in past 14 days?: No Do you have a sore throat?: No Do you have a cough?: No Do you have any weakness?: No Do you have any diarrhea?: No Are you experiencing any unusual bleeding?: No Do you have any muscle aches/pain?: No Do you have any abdominal pain?: No Are you experiencing loss of taste or smell?: No Other Medical History Have you received the Flu Vaccine for this season: No Have you received the Pneumonia Vaccine: No ROS Obtained: Yes All systems reviewed & no additional complaints except as documented Physical Exam General General appearance: alert and in no apparent distress Respiratory Respiratory exam: Present normal lung sounds bilaterally Cardiovascular Cardiovascular exam: Present regular rate Neurological Exam Neurological exam: Present alert and oriented X3 Medical Decision Making Medical Records Screening: Per USPSTF and CDC recommendations, given the prevalence of disease in our region, it is our hospital?s policy to screen for HIV and viral Hepatitis for all patients aged 18 and over and those with ongoing risk factors. [place] Inquiry Pt receiving controlled substance: No Vital Signs: 09/14/25 15:28 Temperature 97.1 F L Temperature Source Temporal Artery Scan Pulse Rate [Right] 84 Respiratory Rate 18 Blood Pressure [Right Arm] 70/38 L Blood Pressure Mean [Right Arm] 48 Blood Pressure Source [Right Arm] Automatic Cuff Blood Pressure Position [Right Arm] Sitting 02 Sat by Pulse Oximetry 96 Oxygen Delivery Method Room Air Lab Data Lab results reviewed: Yes I reviewed the patient's lab results. Lab Results 09/14/25 15:40: WBC 45.7 H* D, RBC 3.67 L, Hgb 11.0 L, Hct 34.5 L, MCV 94.0, MCH 30.0, MCHC 31.9, RDW 18.6 H, Plt Count 407, MPV 10.5 H, Neut % (Auto) 94.9 H, L ymph % (Auto) 0.9 L, Mcduffie % (Auto) 3.0, Eos % (Auto) 0.1, Baso % (Auto) 0.3, N eut # (Auto) 43.5 H, Lymph # (Auto) 0.4 L, Mcduffie # (Auto) 1.4 H, Eos # (Auto) 0.0, Baso # (Auto) 0.1, Total Counted 100, Neutrophils % (Manual) 91 H, Band Neutrophils % 1, Lymphocytes % (Manual) 2 L, Monocytes % (Manual) 3, Myelocytes % 3 H, Toxic Granulation 1+, Platelet Estimate Slight inc, Giant Platelets 1+, Polychromasia 1+, Hypochromasia 1+, Poikilocytosis 1+, Anisocytosis 1+, Microcytosis 1+, Macrocytosis 1+, Target Cells 1+, Tear Drop Cells 1+, Ovalocytes 1+, Elliptocytes 1+, Sodium 137, Potassium 4.8 D, Chloride 104, C arbon Dioxide 16 L, Anion Gap 21.8 H, BUN 20 H D, Creatinine 2.20 H D, Estimated Creat Clear 43, Estimated GFR 22 L, Est GFR ( Amer) 27 L D, Glucose 151 H , Calcium 9.0, Total Bilirubin 6.1 H, AST 403 H* D, ALT 228 H D, Alkaline Phosphatase 796 H, Total Creatine Kinase 138 H, Troponin I < 0.01, Total Protein 6.5, Albumin 3.5, Globulin 3.0, Albumin/Globulin Ratio 1.2, Lipase 3998 H, TSH 1.73 09/14/25 15:53: VBG pH 7.18 L, VBG pCO2 47.7, VBG pO2 31.7, VBG HCO3 17.3 L, VBG Total CO2 18.7 L, VBG O2 Saturation 50.0, VBG Base Excess -11.1 L, VBG Lactic Acid 6.4 H 09/14/25 16:20: Urine Color Dark yellow, Urine Appearance Clear, Urine pH 6.5, Ur Specific [place] 1.020, Urine Protein 1+ A, Urine Glucose (UA) Trace, Urine Ketones Trace, Urine Blood 1+ A, Urine Nitrate Positive A, Urine Bilirubin 3+ A, Urine Urobilinogen >=8.0, Ur Leukocyte Esterase Trace, Urine RBC Occasional, Urine WBC 5-10, Ur Squamous Epith Cells 3-5, Urine Bacteria 4+ 09/14/25 15:40 09/14/25 15:40 Orders (Tests/Meds): ED MEDICATIONS Generic Name Dose Route Start Last Admin Trade Name Freq PRN Reason Stop Dose Admin Vancomycin/PEG/NADA/Lysine/Water 1.75 gm in 350 mls @ 175 mls/hr 09/14/25 16:15 Vancomycin 1.75gm/350ml (Peg) Premix IV 09/14/25 18:14 ONCE ONE Norepinephrine/Dextrose 8 mg in 250 mls @ 3.75 mls/hr 09/14/25 16:24 09/14/25 16:29 Levophed 8mg/250ml-D5w Premix IV 10/14/25 16:23 Not Given .Q24H JAMES Protocol 2 MCG/MIN Discontinued Medications Generic Name Dose Route Start Last Admin Trade Name Freq PRN Reason Stop Dose Admin Acetaminophen 1,000 mg 09/14/25 16:23 09/14/25 17:26 Acetaminophen 1,000mg/100ml Vial IV 09/14/25 16:24 1,000 mg ONCE ONE Administration Lactated Ringer's 1,000 mls @ 999 mls/hr 09/14/25 16:00 09/14/25 16:22 Lactated Ringer's 1000 Ml Bag IV 09/14/25 17:00 200 mls/hr .Q1H1M JAMES Infusion Cefepime HCl 2 gm/ Sodium 100 mls @ 200 mls/hr 09/14/25 15:54 09/14/25 16:53 Chloride IV 09/14/25 16:23 Infused ONCE ONE Infusion Metronidazole 500 mg in 100 mls @ 100 mls/hr 09/14/25 15:54 09/14/25 17:28 Flagyl 500mg/100ml Ivpb IV 09/14/25 16:53 100 mls/hr ONCE ONE Administration Sodium Chloride 1,000 mls @ 999 mls/hr 09/14/25 15:58 09/14/25 16:33 Sod Chlor 0.9% 1000ml Bag IV 09/14/25 16:58 Infused .Q1H1M ONE Infusion Norepinephrine/Dextrose 8 mg in 250 mls @ 3.75 mls/hr 09/14/25 16:24 09/14/25 16:50 Levophed 8mg/250ml-D5w Premix IV 10/14/25 16:23 14 mcg/min .Q24H JAMES 26.25 mls/hr Protocol Titration 2 MCG/MIN Miscellaneous 1 each 09/14/25 16:00 Vancomycin Consult Request NOTAPPLIC 10/14/25 15:59 CONSULT PHARMACY JAMES ORDERS Category Date Time Status CT abdomen pelvis wo con Stat Cat Scan 09/14/25 15:[address] chest wo con Stat Cat Scan 09/14/25 15:52 Taken Chest XR -- portable [XR chest portable] Stat Exams 09/14/25 17:03 Taken POCUS Point of Care (ER Only) Stat Exams 09/14/25 16:27 Completed CBC w/Auto Diff [Complete Blood Count Auto Diff] Stat Lab 09/14/25 15:40 Completed CK [Creatine Kinase] Stat Lab 09/14/25 15:40 Completed CMP [Comprehensive Metabolic Panel] Stat Lab 09/14/25 15:40 Completed Lactate Venous Stat Lab 09/14/25 17:41 Ordered Lipase Stat Lab 09/14/25 15:40 Completed Rapid PCR Covid and Flu A/B Stat Lab 09/14/25 15:54 Ordered TSH [Thyroid Stimulating Hormone] Stat Lab 09/14/25 15:40 Completed Trop I [Troponin I] Stat Lab 09/14/25 15:40 Completed Troponin I Q3H Lab 09/14/25 19:00 Ordered Troponin I Q3H Lab 09/14/25 22:00 Ordered UA [Urinalysis and Microscopic] Stat Lab 09/14/25 16:20 Completed Blood Culture Stat Micro 09/14/25 15:59 Received Urine Culture Stat Micro 09/14/25 16:20 Received Venous Blood Gas Stat RT 09/14/25 15:53 Completed Medical Decision Narrative: 65-year-old presents today with hypothermia from a core temperature standpoint as well as hypotension she also looks ill clinically. She has no focal symptoms and is definitely more confused than the last time I saw her a few days ago. Working diagnosis right now would be septic shock as a complication of the recently diagnosed urinary tract infection. She had no evidence of sepsis a few days ago and presented primarily with decreased bowel movements. She has no other symptoms other than just generalized malaise and confusion at the moment. Apparently she had a similar presentation several months ago where she was flown to [facility] diagnosed with septic shock was on pressors and antibiotics at that time. states they never found a source of infection. After chart review patient was seen here on May 25 and had significant elevations in her transaminases and was diagnosed with a ascending cholangitis at which point she was transferred to [facility]. In reviewing her records from 2 days ago she did have a elevated isolated alkaline phosphatase but other transaminases were not significantly elevated nor was total bilirubin as it was in May. It is possible that she has recurrence of her cholangitis. Reassessment 4:24 PM patient remains persistently hypotensive despite a liter of fluids she does appear clinically volume overloaded therefore will not get more aggressive with IV fluid resuscitation and will start early pressors. Norepinephrine has been initiated with a goal MAP of 65. Patient does have 2 small peripheral IVs will place a central line and have a low threshold as well to place an invasive arterial line. Of note her labs are starting to return and she has a lactic acid of 6.42 and metabolic acidosis pH of 7.17 bicarb of 17.3 and white count is 45.7 was only 12 a few days ago. Her urine that was obtained appears very dark as well CK was added on. Reassessment 5:28 PM Central line was placed successfully using real-time ultrasound guidance. Chest x-ray was performed which I personally interpreted which shows that the catheter is in good place no evidence of any pneumothorax also the line was placed in the longitudinal axis watching the needle tip the entire time no arterial puncture or lung injury definitively. This line is now being used. Patient is on 2 of Levophed her maps are now 76 most recent pressure is 101/69. Patient is mentating better and states she is feeling somewhat better. Unfortunately labs have returned and show a dramatic worsening from 2 days ago. Creatinine was 0.9 and is now up to 2.2 so she has acute kidney injury. As stated above her white count is 45 up from 12 2 days ago and her transaminases have dramatically changed her total bilirubin as well has increased her T. bili is 6 up from normal 2 days ago and remainder of her transaminases are elevated lipase is currently pending. Because GFR is less than [address] scans which I personally interpreted which showed no alternative explanation to the patient's symptoms. Vanco cefepime and Flagyl have been initiated. I did speak with Dr. Matos who is capable of doing an ERCP and can do it at 7 AM in the morning however we do not have a dedicated ICU and casing fluid tender nor do we have nephrology and with patient's multiorgan dysfunction and the need for close intensive care myself along with our hospital medicine [place] that it was best that the patient be transferred to a tertiary care center such as [place] where she was most recently cared for. Therefore I will try to transfer the patient. Reassessment 5:47 PM lipase returned and is greater than 30,000 consistent with acute pancreatitis as well. Patient was ultimately accepted by Dr. Potter at [facility] she remains on 1 pressor her maps above 65 she will go by ground. Everyone is agreeable to this plan. Procedures Central Line Placement Left IJ: Time Out Performed: Yes Patient Placed on Monitor/Pulse Ox: Yes MD Prep: mask, gown and gloves Central Line Prep: Povidone-Iodine 1%, Chlorhexidine scrub and sterile drapes applied Local Anesthetic: lidocaine 1% and with epi Amount of anesthesia used (mL): 5 Ultrasound Used for Placement: Yes (images saved and used in real time ) Central Line Lumen Inserted: triple Post Procedure: sutured in place, good blood return, all ports aspirated, flushed, capped and sterile dressing applied Post Procedure X-Ray: tip of catheter in good position, no pneumothorax seen and other (also used bedside US with agitated saline to confirm placement in the RV ) Patient Tolerated Procedure: well Complications: none Critical Care Critical Care Time Critical Care Time: Yes Attestation: On 09/14/25, the high probability of a clinically significant, sudden or life threatening deterioration of the following system(s) required my full and direct attention, intervention and personal management. The time I documented below is in addition to time spent performing reported procedures but includes the following listed in this critical care notation. Total Time Total Critical Care Time: 65
[2025-09-14 16:00] LABS: VBG HCO3 17.3 mmol/L (23-30); VBG PCO2 47.7 mmol/L (35-51); VBG PO2 31.7 mmol/L (28-40)
[2025-09-14] MEDS: 0.9 % SODIUM CHLORIDE 1000ML 1,000 ML 999 ML IV (16:03)
[2025-09-14] MEDS: LACTATED RINGERS 1000ML 1,000 ML 999 ML IV (16:04)
[2025-09-14 16:05] LABS: Lactate Venous 6.4 mmol/L (0.4-2.0); VBG PH 7.18 mmol/L (7.31-7.41)
[2025-09-14 16:15] LABS: Hematocrit 34.5 % (37.0-47.0); Hemoglobin 11.0 g/dL (12.2-16.2); Immature Granulocytes % 0.8 %; Mean Corpuscular HGB Conc 31.9 g/dL (31.8-35.4); Mean Corpuscular Hemoglobin 30.0 pg (27.0-31.2); Mean Corpuscular Volume 94.0 fl (81-99); Nucleated Red Blood Cells % 0.2 %; Platelet Count 407 K/mm3 (142-424); Red Blood Count 3.67 M/mm3 (4.20-5.40); Red Cell Distribution Width-SD 63.1 fL
[2025-09-14 16:17] LABS: Alanine Aminotransferase 228 U/L (12-78); Albumin Level 3.5 g/dl (3.5-5.0); Albumin/Globulin Ratio 1.2 (1.1-1.8); Alkaline Phosphatase 796 U/L (38-126); Anion Gap 21.8 mEq/L (5-15); Aspartate Amino Transferase 403 U/L (14-36); Bilirubin,Total 6.1 mg/dl (0.2-1.3); Blood Urea Nitrogen 20 mg/dl (7-17); Calcium 9.0 mg/dl (8.4-10.2); Carbon Dioxide 16 mmol/L (22.0-30.0); Chloride 104 mmol/L (98-107); Creatinine Clearance Estimated 43 mL/min (50-200); Creatinine,Serum 2.20 mg/dl (0.52-1.04); Estimated Glomerular Filt Rate 22 ml/min (>60); GFR (African American) 27 ML/MIN (>60); Globulin 3.0 g/dL (1.3-3.2); Glucose 151 mg/dl (74-100); Potassium 4.8 mmoL/L (3.5-5.1); Sodium 137 mmol/L (136-145); Total Protein,Serum 6.5 g/dl (6.3-8.2); White Blood Count 45.7 K/mm3 (4.8-10.8)
[2025-09-14] MEDS: CEFEPIME HCL 2 GM in 0.9 % SODIUM CHLORIDE 100 ML IV (16:17)
--- NOTE | 2025-09-14 16:24 | PC.NURSE ---
Faxed paperwork over to [facility] to request medical records for this pts ER visit
[2025-09-14] MEDS: NOREPINEPHRINE BITARTRATE/D5W 8 MG/250 ML PLAST..BAG 3.75 MG IV (16:25)
[2025-09-14 16:28] LABS: Microscopic, Urine URINE MICROSCOPIC (MICROSCOPIC)
[2025-09-14 16:31] LABS: Troponin I < 0.01 ng/ml (0.00-0.034)
[2025-09-14 16:41] LABS: Glucose,Urine (UA) TRACE (Negative); Ketones,Urine TRACE (Negative); Leukocyte Esterase,Urine TRACE (Negative); PH,Urine 6.5 (5.0-8.5); Protein,Urine 1+ (Negative); Specific Gravity, Urine 1.020 (1.005-1.030); Urobilinogen,Urine >=8.0 EU/dl (0.2)
[2025-09-14 16:43] LABS: Bilirubin,Urine 3+ (Negative); Color,Urine Dark Yellow (Yellow)
[2025-09-14 16:47] LABS: Thyroid Stimulating Hormone 1.73 uIU/mL (0.465-4.68)
[2025-09-14 16:54] LABS: Creatine Kinase 138 U/L (30-135)
[2025-09-14 17:04] LABS: Bacteria,Urine 4+ /lpf; RBC,Urine Occasional #/hpf (0-3)
[2025-09-14 17:04] LABS: Total Cells Counted 100
[2025-09-14 17:05] LABS: Anisocytosis 1+
[2025-09-14 17:06] LABS: Giant Platelets 1+; Poikilocytosis 1+
[2025-09-14 17:07] LABS: Hypochromasia 1+; Ovalocytes 1+; Target Cells 1+; Tear Drop Cells 1+; Toxic Granulation 1+
[2025-09-14 17:08] LABS: Macrocytosis 1+; Microcytosis 1+; Polychromasia 1+
--- NOTE | 2025-09-14 17:24 | PC.NURSE ---
Tatianna Wheatley [facility] per Dr Meeks to see about transferring this pt to them.
[2025-09-14] MEDS: ACETAMINOPHEN 1,000MG/100ML VIAL 1000 MG IV (17:26)
[2025-09-14] MEDS: METRONIDAZ/SOD CHL 500 MG/100 ML PIGGYBACK 100 MG IV (17:28)
[2025-09-14 17:42] LABS: Lipase 3998 U/L (23-300)
--- NOTE | 2025-09-14 17:43 | PC.NURSE ---
Dr. Meeks speaking with MD at [facility]
[2025-09-14] MEDS: VANCOMYCIN/WATER FOR INJ (PEG) 1.75 GM/350 ML PIGGYBACK IV (17:50)
[2025-09-14] MEDS: VANCOMYCIN CONSULT REQUEST 1 EACH NOTAPPLIC (17:52)
[2025-09-14 18:12] LABS: Coronavirus 19, PCR Not Detected (NotDetected); Influenza A, PCR Not Detected (NotDetected); Influenza B, PCR Not Detected (NotDetected)
[2025-09-14 20:04] LABS: Reflex Lactic Add Lactic Reflex
[2025-09-15 01:52] LABS: Acinetobacter calcoaceticus-ba Not Detected; Bacteroides fragilis Not Detected; CTX-M Not Detected; Candida auris Not Detected; Candida glabrata Not Detected; Enterobacterales Detected; Enterococcus faecalis Not Detected; Enterococcus faecium Not Detected; IMP Not Detected; KPC Not Detected; Klebsiella aerogenes Not Detected; Klebsiella pneumoniae grp Not Detected; NDM Not Detected; OXA-48-like Not Detected; Proteus spp. Not Detected; Salmonella spp. Not Detected; Serratia marcescens Not Detected; Staphylococcus epidermidis Not Detected; Staphylococcus lugdunensis Not Detected; Staphylococcus spp. Not Detected; Stenotrophomonas maltophilia Not Detected; Streptococcus agalactiae(GrpB) Not Detected; Streptococcus pyogenes Group A Not Detected; Streptococcus spp. Not Detected; VIM Not Detected; mcr-1 Not Detected
--- NOTE | 2025-09-15 02:08 | PC.NURSE ---
Addendum entered by Cristine Cavazos RN 09/15/25 04:27: faxed the remaining results to ICU Original Note: spoke with the patients ICU Nurse regarding blood culture results.
[2025-09-15 03:00] LABS: Acinetobacter calcoaceticus-ba Not Detected; Bacteroides fragilis Not Detected; CTX-M Not Detected; Candida auris Not Detected; Candida glabrata Not Detected; Enterobacterales Detected; Enterococcus faecalis Not Detected; Enterococcus faecium Not Detected; IMP Not Detected; KPC Not Detected; Klebsiella aerogenes Not Detected; Klebsiella pneumoniae grp Not Detected; NDM Not Detected; OXA-48-like Not Detected; Proteus spp. Not Detected; Salmonella spp. Not Detected; Serratia marcescens Not Detected; Staphylococcus epidermidis Not Detected; Staphylococcus lugdunensis Not Detected; Staphylococcus spp. Not Detected; Stenotrophomonas maltophilia Not Detected; Streptococcus agalactiae(GrpB) Not Detected; Streptococcus pyogenes Group A Not Detected; Streptococcus spp. Not Detected; VIM Not Detected; mcr-1 Not Detected
--- OUTSIDE RECORDS SUMMARY | 2025-09-15 20:00 | XMS_ITS | Clinical Summary ---
Author Organization Unknown Care Team Providers Care Digital Computer Systems Analyst Name Role Phone YONNY OSBORNE, WILLAM Unavailable Unavailable JONATHAN RN, BROWN Unavailable Unavailable DEVON BISWASN, FREDDY Unavailable Unavailable LULÚ PT, ANA Unavailable Unavailable SORAYA STUDENT DEAN, RU Unavailable Unavailable GEORGES OT, LORE Unavailable Unavailable Payers Payer Name Policy Type Policy Number Effective Date Expira tion Date MEDICARE.[facility] [id number] Problems Condition Name Condition Details Condition Category [...] 07-19 00:00: 00 ATHSCL HEART DISEASE OF [place] CORONARY ARTERY W/O ANG PCTRS Active 07-19 [...] 00 HYPOMAGNESEM IA Active 07-19 00:00: 00 SHELTER (CURRENT) USE OF ASPIRIN Active 07-19 00:00: 00 LEADERSHIP PROGRAM INTERN (CURRENT) USE OF INHALED STEROIDS Active 07-19 00:00: 00 SHELTER (CURRENT) USE OF NON-STEROIDA L NON-INFLAM (NSAID) Active 07-19 00:00: 00 LEADERSHIP PROGRAM INTERN (CURRENT) USE OF OPIATE ANALGESIC Active 07-19 [...] mg chewable tablet 07-19 00:00: 00 Yes [id number] BLOOD THINNER 81 mg DAILY 81 mg DAILY (route: oral) Med Classific ation: Hematolog ical Agents atorvastati n 40 mg tablet 07-19 00:00: 00 Yes [id number] CHOLESTEROL 40 mg DAILY 40 mg DAILY (route: oral) Med Classific ation: Cardiovas cular Therapy Agents carvedilol 3.125 mg tablet 07-19 00:00: 00 Yes [id number] CAD 3.125 mg 2 TIMES DAILY 3.125 mg 2 TIMES DAILY (route: oral) Med Classific ation: Cardiovas cular Therapy Agents Celebrex 100 mg capsule 07-19 00:00: 00 Yes [id number] ARTHRITIS 100 mg 2 TIMES DAILY 100 mg 2 TIMES DAILY (route: oral) Med Classific ation: Analgesic , Anti-infl ammatory or Antipyret ic cholecalcif pamela (vitamin D3) 1,250 mcg (50,000 unit) capsule 07-19 00:00: 00 Yes [id number] SUPP 1 capsule DAILY 1 capsule DAILY (route: oral) Med Classific ation: Electroly te Balance-N utritiona l Products duloxetine 60 mg capsule,del ayed release 07-19 00:00: 00 Yes [id number] DEPRESSION 60 mg DAILY 60 mg DAILY (route: oral) Med Classific ation: Central Nervous System Agents Entresto 24 mg-26 mg tablet 07-19 00:00: 00 Yes [id number] BLOOD THINNER 1 tablet 2 TIMES DAILY 1 tablet 2 TIMES DAILY (route: oral) Med Classific ation: Cardiovas cular Therapy Agents famotidine 20 mg tablet 07-19 00:00: 00 Yes [id number] GERD 20 mg DAILY 20 mg DAILY (route: oral) Med Classific ation: Gastroint estinal Therapy Agents furosemide 40 mg tablet 07-19 00:00: 00 Yes [id number] DIURETIC 40 mg 2 TIMES DAILY 40 mg 2 TIMES DAILY (route: oral) Med Classific ation: Cardiovas cular Therapy Agents gabapentin 100 mg capsule 07-19 00:00: 00 Yes [id number] PAIN 100 mg 3 TIMES DAILY 100 mg 3 TIMES DAILY (route: oral) Med Classific ation: Central Nervous System Agents hydroxyzine HCl 25 mg tablet 07-19 00:00: 00 Yes [id number] ANXIETY 25 mg 2 TIMES DAILY 25 mg 2 TIMES DAILY (route: oral) Med Classific ation: Central Nervous System Agents Linzess 72 mcg capsule 07-19 00:00: 00 Yes [id number] CONSTIPATIO N 1 capsule DAILY 1 capsule DAILY (route: oral) Med Classific ation: Gastroint estinal Therapy Agents omeprazole 20 mg tablet,carmelo yed release 07-19 00:00: 00 Yes [id number] GERD 20 mg DAILY 20 mg DAILY (route: oral) Med Classific ation: Gastroint estinal Therapy Agents topiramate 100 mg tablet 07-19 00:00: 00 Yes [id number] SLEEP 100 mg DAILY 100 mg DAILY (route: oral) Med Classific ation: Central Nervous System Agents topiramate 100 mg tablet 07-19 00:00: 00 Yes [id number] MIGRAINES 100 mg DAILY 100 mg DAILY (route: oral) Med Classific ation: Central Nervous System Agents tramadol 50 mg tablet 07-19 00:00: 00 Yes [id number] PAIN 50 mg 3 TIMES DAILY 50 mg 3 TIMES DAILY (route: oral) Med Classific ation: Analgesic , Anti-infl ammatory or Antipyret ic Trelegy Ellipta 100 mcg-62.5 mcg-25 mcg powder for inhalation 07-19 00:00: 00 Yes [id number] COPD 1 inhalat ion DAILY 1 inhalation DAILY (route: inhalation ) Med Classific ation: Respirato ry Therapy Agents Vital Signs Vital Name Observation Time Observation Value Commen ts Temperature 2025-08-25 15:15:00.000 97.2 [degF] Temperature 2025-08-19 14:33:00.000 98.3 [degF] Temperature 2025-08-05 16:53:00.000 97.3 [degF] Temperature 2025-07-29 13:12:00.000 97.8 [degF] Temperature 2025-07-22 11:22:00.000 98 [degF] Temperature 2025-07-21 14:58:00.000 98.3 [degF] Temperature 2025-07-19 11:39:00.000 98.1 [degF] BMI (%) 2025-07-19 11:32:31.000 37 kg/m2 Height 2025-07-19 11:32:23.000 65 [in_us] Pulse 2025-09-05 10:34:00.000 80 /min Pulse 2025-08-25 [...] Saturation (%) 2025-07-21 14:58:00.000 92 % Respirations 2025-09-05 10:34:00.000 18 /min Respirations 2025-08-26 12:25:00.000 18 /min Respirations 2025-08-25 15:15:00.000 18 /min Respirations 2025-08-19 14:33:00.000 18 /min Respirations 2025-08-11 16:50:00.000 18 /min Respirations 2025-08-05 16:53:00.000 18 /min Respirations 2025-07-29 13:12:00.000 18 /min Respirations 2025-07-22 11:22:00.000 18 /min Respirations 2025-07-21 14:58:00.000 18 /min Respirations 2025-07-19 11:39:00.000 18 /min Weight (lbs) 2025-07-19 11:32:31.000 225 [lb_av] Systolic Blood Pressure 2025-08-26 12:25:00.000 130 mm [...] 11:39:00.000 96 mm[ Hg] Diastolic Blood Pressure 2025-08-26 12:25:00.000 68 mm [...] DR YONNY PECK TO OBSERVE AND ASSESS, HVAC/R SERVICE TECHNICIAN/STERILE PROCESSING TECHNOLOGIST TO OBSERVE FOR RISK FOR FALLS AND INSTRUCT IN FALL PREVENTION, HOME SAFETY, MEDICATION MANAGEMENT, INFECTION PREVENTION, AND NUTRITION MANAGEMENT. RN/HVAC/R SERVICE TECHNICIAN/STERILE PROCESSING TECHNOLOGIST NURSE MAY PERFORM O2 SATURATION LEVEL ON ADMISSION AND PRN FOR RN TO ASSESS/HVAC/R SERVICE TECHNICIAN TO OBSERVE PATIENT, WITH NOTIFICATION TO THE PHYSICIAN IF SATURATION IS 90% IN THE ABSENCE OF MORE SPECIFIC PARAMETERS FROM THE PHYSICIAN. AGENCY MAY PERFORM A RESUMPTION OF CARE VISIT FOLLOWING ANY HOSPITAL ADMISSION. RN/HVAC/R SERVICE TECHNICIAN/STERILE PROCESSING TECHNOLOGIST TO MONITOR CO-MORBID CONDITIONS LISTED ON THE PLAN OF CARE AND ANY NEW CONDITIONS THAT PRESENT THEMSELVES DURING THIS EPISODE TO IDENTIFY CHANGES AND INTERVENE TO MINIMIZE COMPLICATIONS. [code = RN TO OBSERVE, ASSESS, EVALUATE, AND DEVELOP AN INDIVIDUALIZED PLAN OF CARE. AGENCY MAY ACCEPT ORDERS FROM CONSULTING PHYSICIANS DR BLANCAS RN TO OBSERVE AND ASSESS, HVAC/R SERVICE TECHNICIAN/STERILE PROCESSING TECHNOLOGIST TO OBSERVE FOR RISK FOR FALLS AND INSTRUCT IN FALL PREVENTION, HOME SAFETY, MEDICATION MANAGEMENT, INFECTION PREVENTION, AND NUTRITION MANAGEMENT. RN/HVAC/R SERVICE TECHNICIAN/STERILE PROCESSING TECHNOLOGIST NURSE MAY PERFORM O2 SATURATION LEVEL ON ADMISSION AND PRN FOR RN TO ASSESS/HVAC/R SERVICE TECHNICIAN TO OBSERVE PATIENT, WITH NOTIFICATION TO THE PHYSICIAN IF SATURATION IS 90% IN THE ABSENCE OF MORE SPECIFIC PARAMETERS FROM THE PHYSICIAN. AGENCY MAY PERFORM A RESUMPTION OF CARE VISIT FOLLOWING ANY HOSPITAL ADMISSION. RN/HVAC/R SERVICE TECHNICIAN/STERILE PROCESSING TECHNOLOGIST TO MONITOR CO-MORBID CONDITIONS LISTED ON THE PLAN OF CARE AND ANY NEW CONDITIONS THAT PRESENT THEMSELVES DURING THIS EPISODE TO IDENTIFY CHANGES AND INTERVENE TO MINIMIZE COMPLICATIONS.] Future Scheduled Test RISK FOR H OSPITALIZATION; RN TO ASSESS/TEACH, STERILE PROCESSING TECHNOLOGIST/HVAC/R SERVICE TECHNICIAN TO OBSERVE/TEACH PATIENT/CAREGIVER ON RISK FOR HOSPITALIZATION/EMERGENCY ROOM VISITS, TEACH SIGNS AND SYMPTOMS THAT PUT PATIENT AT RISK, WHEN TO NOTIFY NURSE/PHYSICIAN OF COMPLICATIONS/DECLINE, AND WHEN TO CALL 911. [code = RISK FOR HOSPITALIZATION; RN TO ASSESS/TEACH, STERILE PROCESSING TECHNOLOGIST/HVAC/R SERVICE TECHNICIAN TO OBSERVE/TEACH PATIENT/CAREGIVER ON RISK FOR HOSPITALIZATION/EMERGENCY ROOM VISITS, TEACH SIGNS AND SYMPTOMS THAT PUT PATIENT AT RISK, WHEN TO NOTIFY NURSE/PHYSICIAN OF COMPLICATIONS/DECLINE, AND WHEN TO CALL 911.] Future Scheduled Test GENITOURIN STEFANY MANAGEMENT; RN TO ASSESS AND TEACH, HVAC/R SERVICE TECHNICIAN/STERILE PROCESSING TECHNOLOGIST TO OBSERVE AND TEACH RELATED TO ALTERED GENITOURINARY STATUS TO MINIMIZE COMPLICATIONS AND REDUCE HOSPITALIZATION. [code = GENITOURINARY MANAGEMENT; RN TO ASSESS AND TEACH, HVAC/R SERVICE TECHNICIAN/STERILE PROCESSING TECHNOLOGIST TO OBSERVE AND TEACH RELATED TO ALTERED GENITOURINARY STATUS TO MINIMIZE COMPLICATIONS AND REDUCE HOSPITALIZATION.] Future Scheduled Test URINARY TR ACT INFECTION MANAGEMENT; RN/STERILE PROCESSING TECHNOLOGIST/HVAC/R SERVICE TECHNICIAN TO PROVIDE SKILLED TEACHING AND SELF- CARE MANAGEMENT RELATED TO UTI TO MINIMIZE COMPLICATIONS AND REDUCE THE RISK OF HOSPITALIZATION. [code = URINARY TRACT INFECTION MANAGEMENT; RN/STERILE PROCESSING TECHNOLOGIST/HVAC/R SERVICE TECHNICIAN TO PROVIDE SKILLED TEACHING AND SELF- CARE MANAGEMENT RELATED TO UTI TO MINIMIZE COMPLICATIONS AND REDUCE THE RISK OF HOSPITALIZATION.] Future Scheduled Test GASTROINTE STINAL MANAGEMENT; RN TO ASSESS AND TEACH, STERILE PROCESSING TECHNOLOGIST/HVAC/R SERVICE TECHNICIAN TO OBSERVE AND TEACH RELATED TO ALTERED GASTROINTESTINAL STATUS TO MINIMIZE COMPLICATIONS AND REDUCE HOSPITALIZATION. [code = GASTROINTESTINAL MANAGEMENT; RN TO ASSESS AND TEACH, STERILE PROCESSING TECHNOLOGIST/HVAC/R SERVICE TECHNICIAN TO OBSERVE AND TEACH RELATED TO ALTERED GASTROINTESTINAL STATUS TO MINIMIZE COMPLICATIONS AND REDUCE HOSPITALIZATION.] Future Scheduled Test RN TO ASSE SS AND TEACH, HVAC/R SERVICE TECHNICIAN/STERILE PROCESSING TECHNOLOGIST TO OBSERVE AND INSTRUCT PATIENT/CAREGIVER ON DIVERTICULAR DISEASE MANAGEMENT. [code = RN TO ASSESS AND TEACH, HVAC/R SERVICE TECHNICIAN/STERILE PROCESSING TECHNOLOGIST TO OBSERVE AND INSTRUCT PATIENT/CAREGIVER ON DIVERTICULAR DISEASE MANAGEMENT.] Future Scheduled Test RN TO ASSE SS AND TEACH, HVAC/R SERVICE TECHNICIAN/STERILE PROCESSING TECHNOLOGIST TO OBSERVE AND TEACH FOR SIGNS AND SYMPTOMS OF SEPSIS AND/OR POST-SEPSIS SYNDROME AND INTERVENE TO MINIMIZE COMPLICATIONS. RN/HVAC/R SERVICE TECHNICIAN/STERILE PROCESSING TECHNOLOGIST TO PROVIDE SKILLED TEACHING TO PATIENT/CAREGIVER ON SEPSIS AND SELF-MANAGEMENT TECHNIQUES. RN/HVAC/R SERVICE TECHNICIAN/STERILE PROCESSING TECHNOLOGIST TO MONITOR PATIENT/CAREGIVER ADHERENCE TO MONITOR AND RECORD VITAL SIGNS INCLUDING TEMPERATURE, HEART RATE, RESPIRATIONS, AND SYMPTOMS. [code = RN TO ASSESS AND TEACH, HVAC/R SERVICE TECHNICIAN/STERILE PROCESSING TECHNOLOGIST TO OBSERVE AND TEACH FOR SIGNS AND SYMPTOMS OF SEPSIS AND/OR POST-SEPSIS SYNDROME AND INTERVENE TO MINIMIZE COMPLICATIONS. RN/HVAC/R SERVICE TECHNICIAN/STERILE PROCESSING TECHNOLOGIST TO PROVIDE SKILLED TEACHING TO PATIENT/CAREGIVER ON SEPSIS AND SELF-MANAGEMENT TECHNIQUES. RN/HVAC/R SERVICE TECHNICIAN/STERILE PROCESSING TECHNOLOGIST TO MONITOR PATIENT/CAREGIVER ADHERENCE TO MONITOR AND RECORD VITAL SIGNS INCLUDING TEMPERATURE, HEART RATE, RESPIRATIONS, AND SYMPTOMS.] Future Scheduled Test FALL REDUC TION MANAGEMENT; RN TO ASSESS AND OBSERVE, HVAC/R SERVICE TECHNICIAN/STERILE PROCESSING TECHNOLOGIST TO OBSERVE FALL RISK FACTORS AND EDUCATE PATIENT/CAREGIVER ON STRATEGIES TO MINIMIZE THE RISK OF FALLING. [code = FALL REDUCTION MANAGEMENT; RN TO ASSESS AND OBSERVE, HVAC/R SERVICE TECHNICIAN/STERILE PROCESSING TECHNOLOGIST TO OBSERVE FALL RISK FACTORS AND EDUCATE [...] TO EVALUATE, OBSERVE / ASSESS, AND MONITOR, STUDENT DEAN TO OBSERVE AND MONITOR, PROVIDE SKILLED THERAPEUTIC INTERVENTION, ACTIVITY, EDUCATION, AND TRAINING TO ADDRESS; BED MOBILITY (PT/STUDENT DEAN) PT/STUDENT DEAN TO PROVIDE GAIT TRAINING FOR IMPROVED MOBILITY AND /OR TO NORMALIZE GAIT PATTERN NEUROMUSCULAR RE-EDUCATION / BALANCE / POSTURAL CONTROL (PT) THERAPEUTIC EXERCISES AND ESTABLISHING A HOME EXERCISE PROGRAM (PT/STUDENT DEAN) SIT TO/FROM STAND TRANSFERS (PT/STUDENT DEAN) PT / STUDENT DEAN TO MONITOR AND EDUCATE ON OXYGEN SATURATION DURING ADLS/IADLS, NOTIFY PHYSICIAN AND/OR THE RN CLINICAL DATA PROCESSING OPERATOR FOR PHYSICIAN NOTIFICATION AND IF O2 SATS BELOW PHYSICIAN ORDERED PARAMETERS AFTER 10 MIN OF REST PT / STUDENT DEAN TO INSTRUCT PATIENT/CAREGIVER ON RISK FOR HOSPITALIZATION/EMERGENCY ROOM VISITS, TEACH SIGNS AND SYMPTOMS THAT PUT PATIENT AT RISK, WHEN TO NOTIFY NURSE/PHYSICIAN OF COMPLICATIONS/DECLINE, AND WHEN TO CALL 911. PT/STUDENT DEAN TO IDENTIFY FALL RISK FACTORS; EDUCATE THE PATIENT/CAREGIVER ON WAYS TO REDUCE FALL RISK FACTORS AND ESTABLISH HOME EXERCISE PROGRAM TO MINIMIZE FALL RISK. MAY TEACH THE PATIENT FLOOR RECOVERY WHEN CLINICALLY APPROPRIATE [code = AGENCY MAY PERFORM A RESUMPTION OF CARE VISIT FOLLOWING ANY HOSPITAL ADMISSION. PT TO EVALUATE, OBSERVE / ASSESS, AND MONITOR, STUDENT DEAN TO OBSERVE AND MONITOR, PROVIDE SKILLED THERAPEUTIC INTERVENTION, ACTIVITY, EDUCATION, AND TRAINING TO ADDRESS; BED MOBILITY (PT/STUDENT DEAN) PT/STUDENT DEAN TO PROVIDE GAIT TRAINING FOR IMPROVED MOBILITY AND /OR TO NORMALIZE GAIT PATTERN NEUROMUSCULAR RE-EDUCATION / BALANCE / POSTURAL CONTROL (PT) THERAPEUTIC EXERCISES AND ESTABLISHING A HOME EXERCISE PROGRAM (PT/STUDENT DEAN) SIT TO/FROM STAND TRANSFERS (PT/STUDENT DEAN) PT / STUDENT DEAN TO MONITOR AND EDUCATE ON OXYGEN SATURATION DURING ADLS/IADLS, NOTIFY PHYSICIAN AND/OR THE RN CLINICAL DATA PROCESSING OPERATOR FOR PHYSICIAN NOTIFICATION AND IF O2 SATS BELOW PHYSICIAN ORDERED PARAMETERS AFTER 10 MIN OF REST PT / STUDENT DEAN TO INSTRUCT PATIENT/CAREGIVER ON RISK FOR HOSPITALIZATION/EMERGENCY ROOM VISITS, TEACH SIGNS AND SYMPTOMS THAT PUT PATIENT AT RISK, WHEN TO NOTIFY NURSE/PHYSICIAN OF COMPLICATIONS/DECLINE, AND WHEN TO CALL 911. PT/STUDENT DEAN TO IDENTIFY FALL RISK FACTORS; EDUCATE THE PATIENT/CAREGIVER ON WAYS TO REDUCE FALL RISK FACTORS AND ESTABLISH HOME EXERCISE PROGRAM TO MINIMIZE FALL RISK. MAY TEACH THE PATIENT FLOOR RECOVERY WHEN CLINICALLY APPROPRIATE] Future Scheduled Test AGENCY MAY PERFORM A RESUMPTION OF CARE VISIT FOLLOWING ANY HOSPITAL ADMISSION. OT TO EVALUATE, OBSERVE / ASSESS, AND MONITOR, PIPE STEM REPAIRER TO OBSERVE AND MONITOR, PROVIDE SKILLED THERAPEUTIC INTERVENTION, ACTIVITY, EDUCATION, AND TRAINING TO ADDRESS;IMPROVEMENT OF STRENGTH, ACTIVITY TOLERANCE, BALANCE, HEP INSTRUCTION, HOME SAFETY RECOMMENDATIONS, SELF CARE RETRAINING PERSONAL HYGIENE/GROOMING (OT/PIPE STEM REPAIRER) BATHING/SHOWERING (OT/LARRY) TOILETING HYGIENE (OT/PIPE STEM REPAIRER) DRESSING (OT/LARRY) ACTIVITIES OF DAILY LIVING (OT/PIPE STEM REPAIRER) TOILET TRANSFER (OT/LARRY) BATH/SHOWER TRANSFER (OT/PIPE STEM REPAIRER) POSTURAL CONTROL/BALANCE (OT/PIPE STEM REPAIRER) THERAPEUTIC EXERCISE (OT/LARRY) OT/PIPE STEM REPAIRER TO MONITOR PATIENT WITH STABLE DEPRESSION ON SIGNS AND SYMPTOMS OF WORSENING DEPRESSION AND AVAILABLE RESOURCES INCLUDING [facility] SUIC[facility]. OT/PIPE STEM REPAIRER MAY EDUCATE ON PAIN MANAGEMENT CLINICALLY INDICATED, INCLUDING NON-PHARMACOLOGICAL PAIN REDUCTION TECHNIQUES AND USE OF CRYOTHERAPY OR HEAT UP TO 20 MIN AT A TIME FOR PAIN MANAGEMENT [code = AGENCY MAY PERFORM A RESUMPTION OF CARE VISIT FOLLOWING ANY HOSPITAL ADMISSION. OT TO EVALUATE, OBSERVE / ASSESS, AND MONITOR, PIPE STEM REPAIRER TO OBSERVE AND MONITOR, PROVIDE SKILLED THERAPEUTIC INTERVENTION, ACTIVITY, EDUCATION, AND TRAINING TO ADDRESS;IMPROVEMENT OF STRENGTH, ACTIVITY TOLERANCE, BALANCE, HEP INSTRUCTION, HOME SAFETY RECOMMENDATIONS, SELF CARE RETRAINING PERSONAL HYGIENE/GROOMING (OT/LARRY) BATHING/SHOWERING (OT/LARRY) TOILETING HYGIENE (OT/LARRY) DRESSING (OT/LARRY) ACTIVITIES OF DAILY LIVING (OT/PIPE STEM REPAIRER) TOILET TRANSFER (OT/PIPE STEM REPAIRER) BATH/SHOWER TRANSFER (OT/LARRY) POSTURAL CONTROL/BALANCE (OT/PIPE STEM REPAIRER) THERAPEUTIC EXERCISE (OT/LARRY) OT/LARRY TO MONITOR PATIENT WITH STABLE DEPRESSION ON SIGNS AND SYMPTOMS OF WORSENING DEPRESSION AND AVAILABLE RESOURCES INCLUDING [address] [place] [address]. OT/PIPE STEM REPAIRER MAY EDUCATE ON PAIN MANAGEMENT CLINICALLY INDICATED, INCLUDING NON-PHARMACOLOGICAL PAIN REDUCTION TECHNIQUES AND USE OF CRYOTHERAPY OR HEAT UP TO 20 MIN AT A TIME FOR PAIN MANAGEMENT] Goal Patient Goal - T O GET STRONGER [...] WILL DEMONSTRATE UNDERSTANDING OF PAIN MANAGEMENT TECHNIQUES Encounters Start Date/Time End Date/Time Encounter Type Admission Type Attending [facility] Care Facility Care Department Encounter ID Discharge Date Discharge Status Discharge Condition Discharge Reason Percent Goals Met 2025-07-19 00:00:00 2025-09-16 00:00:00 Outpatient BROWN DE [facility] [id number] 24.14
== END 2025-09-14 18:42 | disposition other institution (70) ==
PROVIDERS: Emergency Provider Student in an Organized Health Care Education/Training Program; PCP Family Medicine
DX: A41.51 Sepsis due to Escherichia coli [E. coli] (principal); A41.81 Sepsis due to Enterococcus; R65.21 Severe sepsis with septic shock; B96.29 Other Escherichia coli [E. coli] as the cause of diseases classified elsewhere; E87.21 Acute metabolic acidosis; R74.02 Elevation of levels of lactic acid dehydrogenase [LDH]; G93.49 Other encephalopathy; I95.9 Hypotension, unspecified; R68.0 Hypothermia, not associated with low environmental temperature; R07.89 Other chest pain; N17.9 Acute kidney failure, unspecified; K85.90 Acute pancreatitis without necrosis or infection, unspecified; N39.0 Urinary tract infection, site not specified; K83.09 Other cholangitis
CPT/HCPCS: 71045; 71250; 74176; 76942; 80053; 81001; 82550; 82803; 83690; 84443; 84484; 85007; 85025; 87040; 87077; 87086; 87154; 87186; 87636; 93005; 96365; 96366; 96367; 96375; 99285; 99291; C1751; J0131; J0692; J1836; J2004; J3375; J7030; J7120

== ENCOUNTER 2025-09-26 16:15 | Outpatient (CLI) | payer MEDICARE, OTHER, SELFPAY ==
--- OUTSIDE RECORDS SUMMARY | 2025-09-12 19:00 | XMS_ITS | Clinical Summary ---
Author Organization Unknown Care Team Providers Care Financial Data Analyst Name Role Phone YONNY OSBORNE, WILLAM Unavailable Unavailable JONATHAN RN, BROWN Unavailable Unavailable DEVON BISWASN, FREDDY Unavailable Unavailable LULÚ PT, ANA Unavailable Unavailable SORAYA DIRECTOR ACCOUNT MANAGEMENT, RU Unavailable Unavailable GEORGES OT, LORE Unavailable Unavailable Payers Payer Name Policy Type Policy Number Effective Date Expira tion Date MEDICARE.[facility] [id number] Problems Condition Name Condition Details Condition Category Status Onset Date Resolution Date Last Treatment Date Treating Clinician Comments SEPSIS, UNSPECIFIED ORGANISM Active 07-11 00:00: 00 NONINFECTIVE GASTROENTERI TIS AND COLITIS, UNSPECIFIED Active 07-11 00:00: 00 URINARY TRACT INFECTION, SITE NOT SPECIFIED Active 07-11 00:00: 00 ACUTE KIDNEY FAILURE, UNSPECIFIED Active 07-11 00:00: 00 HYPERTENSIVE CHRONIC KIDNEY DISEASE W STG 1-4/UNSP CHR KDNY Active 07-19 00:00: 00 CHRONIC KIDNEY DISEASE, UNSPECIFIED Active 07-19 00:00: 00 ATHSCL HEART DISEASE OF [place] CORONARY ARTERY W/O ANG PCTRS Active 07-19 00:00: 00 OTHER SPECIFIED CHRONIC OBSTRUCTIVE PULMONARY DISEASE Active 07-19 00:00: 00 MIGRAINE, UNSP, NOT INTRACTABLE, WITHOUT STATUS MIGRAINOSUS Active 07-19 00:00: 00 RADICULOPATH Y, LUMBAR REGION Active 07-19 00:00: 00 ANXIETY DISORDER, UNSPECIFIED Active 07-19 00:00: 00 GASTRO-ESOPH AGEAL REFLUX DISEASE WITHOUT ESOPHAGITIS Active 07-19 00:00: 00 MORBID (SEVERE) OBESITY DUE TO EXCESS CALORIES Active 07-19 00:00: 00 DEPRESSION, UNSPECIFIED Active 07-19 00:00: 00 INSOMNIA, UNSPECIFIED Active 07-19 00:00: 00 SLEEP APNEA, UNSPECIFIED Active 07-19 00:00: 00 UNSPECIFIED OSTEOARTHRIT IS, UNSPECIFIED SITE Active 07-19 00:00: 00 HYPOMAGNESEM IA Active 07-19 00:00: 00 SKILLED NURSING (CURRENT) USE OF ASPIRIN Active 07-19 00:00: 00 POURED CONCRETE WALL TECHNICIAN (CURRENT) USE OF INHALED STEROIDS Active 07-19 00:00: 00 SKILLED NURSING (CURRENT) USE OF NON-STEROIDA L NON-INFLAM (NSAID) Active 07-19 00:00: 00 POURED CONCRETE WALL TECHNICIAN (CURRENT) USE OF OPIATE ANALGESIC Active 07-19 00:00: 00 PRSNL HX OF TIA (TIA), AND CEREB INFRC W/O RESID DEFICITS Active 07-19 00:00: 00 PERSONAL HISTORY OF URINARY (TRACT) INFECTIONS Active 07-19 00:00: 00 BODY MASS INDEX [BMI]40.0-44 .9, ADULT Active 07-19 00:00: 00 Allergies, Adverse Reactions, Alerts Allergy Name Allergy Type Status Severity Reaction(s) Onset Date Inactive Date Treating Clinician Comments FEXOFENADINE Propensity to adverse reactions Active 07-19 11:39: 02 AUGMENTIN Propensity to adverse reactions Active 07-19 11:39: 22 SUMATRIPTAN Propensity to adverse reactions Active 07-20 13:40: 49 Medications Ordered Medication Name Filled Medication Name Start Date Stop Date Current Medication? Ordering Clinician Indication Dosage Frequency Signature (SIG) Comments Components Aspirin Childrens 81 mg chewable tablet 07-19 00:00: 00 Yes [id number] BLOOD THINNER 81 mg DAILY 81 mg DAILY (route: oral) Med Classific ation: Hematolog ical Agents atorvastati n 40 mg tablet 07-19 00:00: 00 Yes [id number] CHOLESTEROL 40 mg DAILY 40 mg DAILY (route: oral) Med Classific ation: Cardiovas cular Therapy Agents carvedilol 3.125 mg tablet 07-19 00:00: 00 Yes [id number] CAD 3.125 mg 2 TIMES DAILY 3.125 mg 2 TIMES DAILY (route: oral) Med Classific ation: Cardiovas cular Therapy Agents Celebrex 100 mg capsule 07-19 00:00: 00 Yes [id number] ARTHRITIS 100 mg 2 TIMES DAILY 100 mg 2 TIMES DAILY (route: oral) Med Classific ation: Analgesic , Anti-infl ammatory or Antipyret ic cholecalcif pamela (vitamin D3) 1,250 mcg (50,000 unit) capsule 07-19 00:00: 00 Yes [id number] SUPP 1 capsule DAILY 1 capsule DAILY (route: oral) Med Classific ation: Electroly te Balance-N utritiona l Products duloxetine 60 mg capsule,del ayed release 07-19 00:00: 00 Yes [id number] DEPRESSION 60 mg DAILY 60 mg DAILY (route: oral) Med Classific ation: Central Nervous System Agents Entresto 24 mg-26 mg tablet 07-19 00:00: 00 Yes [id number] BLOOD THINNER 1 tablet 2 TIMES DAILY 1 tablet 2 TIMES DAILY (route: oral) Med Classific ation: Cardiovas cular Therapy Agents famotidine 20 mg tablet 07-19 00:00: 00 Yes [id number] GERD 20 mg DAILY 20 mg DAILY (route: oral) Med Classific ation: Gastroint estinal Therapy Agents furosemide 40 mg tablet 07-19 00:00: 00 Yes [id number] DIURETIC 40 mg 2 TIMES DAILY 40 mg 2 TIMES DAILY (route: oral) Med Classific ation: Cardiovas cular Therapy Agents gabapentin 100 mg capsule 07-19 00:00: 00 Yes [id number] PAIN 100 mg 3 TIMES DAILY 100 mg 3 TIMES DAILY (route: oral) Med Classific ation: Central Nervous System Agents hydroxyzine HCl 25 mg tablet 07-19 00:00: 00 Yes [id number] ANXIETY 25 mg 2 TIMES DAILY 25 mg 2 TIMES DAILY (route: oral) Med Classific ation: Central Nervous System Agents Linzess 72 mcg capsule 07-19 00:00: 00 Yes [id number] CONSTIPATIO N 1 capsule DAILY 1 capsule DAILY (route: oral) Med Classific ation: Gastroint estinal Therapy Agents omeprazole 20 mg tablet,carmelo yed release 07-19 00:00: 00 Yes [id number] GERD 20 mg DAILY 20 mg DAILY (route: oral) Med Classific ation: Gastroint estinal Therapy Agents topiramate 100 mg tablet 07-19 00:00: 00 Yes [id number] SLEEP 100 mg DAILY 100 mg DAILY (route: oral) Med Classific ation: Central Nervous System Agents topiramate 100 mg tablet 07-19 00:00: 00 Yes [id number] MIGRAINES 100 mg DAILY 100 mg DAILY (route: oral) Med Classific ation: Central Nervous System Agents tramadol 50 mg tablet 07-19 00:00: 00 Yes [id number] PAIN 50 mg 3 TIMES DAILY 50 mg 3 TIMES DAILY (route: oral) Med Classific ation: Analgesic , Anti-infl ammatory or Antipyret ic Trelegy Ellipta 100 mcg-62.5 mcg-25 mcg powder for inhalation 07-19 00:00: 00 Yes [id number] COPD 1 inhalat ion DAILY 1 inhalation DAILY (route: inhalation ) Med Classific ation: Respirato ry Therapy Agents Vital Signs Vital Name Observation Time Observation Value Commen ts Temperature 2025-09-13 16:12:00.000 97.8 [degF] Temperature 2025-08-25 15:15:00.000 97.2 [degF] Temperature 2025-08-19 14:33:00.000 98.3 [degF] Temperature 2025-08-05 16:53:00.000 97.3 [degF] Temperature 2025-07-29 13:12:00.000 97.8 [degF] Temperature 2025-07-22 11:22:00.000 98 [degF] Temperature 2025-07-21 14:58:00.000 98.3 [degF] Temperature 2025-07-19 11:39:00.000 98.1 [degF] BMI (%) 2025-07-19 11:32:31.000 37 kg/m2 Height 2025-07-19 11:32:23.000 65 [in_us] Pulse 2025-09-13 16:12:00.000 80 /min Pulse 2025-09-05 10:34:00.000 80 /min Pulse 2025-08-25 15:15:00.000 98 /min Pulse 2025-08-19 14:33:00.000 96 /min Pulse 2025-08-11 16:50:00.000 80 /min Pulse 2025-08-05 16:53:00.000 94 /min Pulse 2025-07-29 13:12:00.000 86 /min Pulse 2025-07-22 11:22:00.000 70 /min Pulse 2025-07-21 14:58:00.000 81 /min Pulse 2025-07-19 11:39:00.000 80 /min O2 Saturation (%) 2025-09-05 10:34:00.000 96 % O2 Saturation (%) 2025-08-26 12:25:00.000 96 % O2 Saturation (%) 2025-08-25 15:15:00.000 97 % O2 Saturation (%) 2025-08-19 14:33:00.000 96 % O2 Saturation (%) 2025-08-11 16:50:00.000 96 % O2 Saturation (%) 2025-08-05 16:53:00.000 93 % O2 Saturation (%) 2025-07-29 13:12:00.000 93 % O2 Saturation (%) 2025-07-22 11:22:00.000 93 % O2 Saturation (%) 2025-07-21 14:58:00.000 92 % Respirations 2025-09-13 16:12:00.000 18 /min Respirations 2025-09-05 10:34:00.000 18 /min Respirations 2025-08-26 12:25:00.000 18 /min Respirations 2025-08-25 15:15:00.000 18 /min Respirations 2025-08-19 14:33:00.000 18 /min Respirations 2025-08-11 16:50:00.000 18 /min Respirations 2025-08-05 16:53:00.000 18 /min Respirations 2025-07-29 13:12:00.000 18 /min Respirations 2025-07-22 11:22:00.000 18 /min Respirations 2025-07-21 14:58:00.000 18 /min Respirations 2025-07-19 11:39:00.000 18 /min Weight (lbs) 2025-07-19 11:32:31.000 225 [lb_av] Systolic Blood Pressure 2025-09-13 16:12:00.000 132 mm [Hg] Systolic Blood Pressure 2025-08-26 12:25:00.000 130 mm [Hg] Systolic Blood Pressure 2025-08-25 15:15:00.000 132 mm [Hg] Systolic Blood Pressure 2025-08-19 14:33:00.000 126 mm [Hg] Systolic Blood Pressure 2025-08-11 16:50:00.000 130 mm [Hg] Systolic Blood Pressure 2025-08-05 16:53:00.000 126 mm [Hg] Systolic Blood Pressure 2025-07-29 13:12:00.000 110 mm [Hg] Systolic Blood Pressure 2025-07-22 11:22:00.000 120 mm [Hg] Systolic Blood Pressure 2025-07-21 14:58:00.000 98 mm[ Hg] Systolic Blood Pressure 2025-07-19 11:39:00.000 96 mm[ Hg] Diastolic Blood Pressure 2025-09-13 16:12:00.000 66 mm [Hg] Diastolic Blood Pressure 2025-08-26 12:25:00.000 68 mm [Hg] Diastolic Blood Pressure 2025-08-25 15:15:00.000 78 mm [Hg] Diastolic Blood Pressure 2025-08-19 14:33:00.000 82 mm [Hg] Diastolic Blood Pressure 2025-08-11 16:50:00.000 66 mm [Hg] Diastolic Blood Pressure 2025-08-05 16:53:00.000 93 mm [Hg] Diastolic Blood Pressure 2025-07-29 13:12:00.000 70 mm [Hg] Diastolic Blood Pressure 2025-07-22 11:22:00.000 62 mm [Hg] Diastolic Blood Pressure 2025-07-21 14:58:00.000 62 mm [Hg] Diastolic Blood Pressure 2025-07-19 11:39:00.000 60 mm [Hg] Plan of Treatment Planned Activity Planned Date Details Comments Future Scheduled Test RN TO OBSE RVE, ASSESS, EVALUATE, AND DEVELOP AN INDIVIDUALIZED PLAN OF CARE. AGENCY MAY ACCEPT ORDERS FROM CONSULTING PHYSICIANS DR YONNY PECK TO OBSERVE AND ASSESS, RV REPAIR TECHNICIAN/STRIPPER BLACK AND WHITE TO OBSERVE FOR RISK FOR FALLS AND INSTRUCT IN FALL PREVENTION, HOME SAFETY, MEDICATION MANAGEMENT, INFECTION PREVENTION, AND NUTRITION MANAGEMENT. RN/RV REPAIR TECHNICIAN/STRIPPER BLACK AND WHITE NURSE MAY PERFORM O2 SATURATION LEVEL ON ADMISSION AND PRN FOR RN TO ASSESS/RV REPAIR TECHNICIAN TO OBSERVE PATIENT, WITH NOTIFICATION TO THE PHYSICIAN IF SATURATION IS 90% IN THE ABSENCE OF MORE SPECIFIC PARAMETERS FROM THE PHYSICIAN. AGENCY MAY PERFORM A RESUMPTION OF CARE VISIT FOLLOWING ANY HOSPITAL ADMISSION. RN/RV REPAIR TECHNICIAN/STRIPPER BLACK AND WHITE TO MONITOR CO-MORBID CONDITIONS LISTED ON THE PLAN OF CARE AND ANY NEW CONDITIONS THAT PRESENT THEMSELVES DURING THIS EPISODE TO IDENTIFY CHANGES AND INTERVENE TO MINIMIZE COMPLICATIONS. [code = RN TO OBSERVE, ASSESS, EVALUATE, AND DEVELOP AN INDIVIDUALIZED PLAN OF CARE. AGENCY MAY ACCEPT ORDERS FROM CONSULTING PHYSICIANS DR BLANCAS RN TO OBSERVE AND ASSESS, RV REPAIR TECHNICIAN/STRIPPER BLACK AND WHITE TO OBSERVE FOR RISK FOR FALLS AND INSTRUCT IN FALL PREVENTION, HOME SAFETY, MEDICATION MANAGEMENT, INFECTION PREVENTION, AND NUTRITION MANAGEMENT. RN/RV REPAIR TECHNICIAN/STRIPPER BLACK AND WHITE NURSE MAY PERFORM O2 SATURATION LEVEL ON ADMISSION AND PRN FOR RN TO ASSESS/RV REPAIR TECHNICIAN TO OBSERVE PATIENT, WITH NOTIFICATION TO THE PHYSICIAN IF SATURATION IS 90% IN THE ABSENCE OF MORE SPECIFIC PARAMETERS FROM THE PHYSICIAN. AGENCY MAY PERFORM A RESUMPTION OF CARE VISIT FOLLOWING ANY HOSPITAL ADMISSION. RN/RV REPAIR TECHNICIAN/STRIPPER BLACK AND WHITE TO MONITOR CO-MORBID CONDITIONS LISTED ON THE PLAN OF CARE AND ANY NEW CONDITIONS THAT PRESENT THEMSELVES DURING THIS EPISODE TO IDENTIFY CHANGES AND INTERVENE TO MINIMIZE COMPLICATIONS.] Future Scheduled Test RISK FOR H OSPITALIZATION; RN TO ASSESS/TEACH, STRIPPER BLACK AND WHITE/RV REPAIR TECHNICIAN TO OBSERVE/TEACH PATIENT/CAREGIVER ON RISK FOR HOSPITALIZATION/EMERGENCY ROOM VISITS, TEACH SIGNS AND SYMPTOMS THAT PUT PATIENT AT RISK, WHEN TO NOTIFY NURSE/PHYSICIAN OF COMPLICATIONS/DECLINE, AND WHEN TO CALL 911. [code = RISK FOR HOSPITALIZATION; RN TO ASSESS/TEACH, STRIPPER BLACK AND WHITE/RV REPAIR TECHNICIAN TO OBSERVE/TEACH PATIENT/CAREGIVER ON RISK FOR HOSPITALIZATION/EMERGENCY ROOM VISITS, TEACH SIGNS AND SYMPTOMS THAT PUT PATIENT AT RISK, WHEN TO NOTIFY NURSE/PHYSICIAN OF COMPLICATIONS/DECLINE, AND WHEN TO CALL 911.] Future Scheduled Test GENITOURIN STEFANY MANAGEMENT; RN TO ASSESS AND TEACH, RV REPAIR TECHNICIAN/STRIPPER BLACK AND WHITE TO OBSERVE AND TEACH RELATED TO ALTERED GENITOURINARY STATUS TO MINIMIZE COMPLICATIONS AND REDUCE HOSPITALIZATION. [code = GENITOURINARY MANAGEMENT; RN TO ASSESS AND TEACH, RV REPAIR TECHNICIAN/STRIPPER BLACK AND WHITE TO OBSERVE AND TEACH RELATED TO ALTERED GENITOURINARY STATUS TO MINIMIZE COMPLICATIONS AND REDUCE HOSPITALIZATION.] Future Scheduled Test URINARY TR ACT INFECTION MANAGEMENT; RN/STRIPPER BLACK AND WHITE/RV REPAIR TECHNICIAN TO PROVIDE SKILLED TEACHING AND SELF- CARE MANAGEMENT RELATED TO UTI TO MINIMIZE COMPLICATIONS AND REDUCE THE RISK OF HOSPITALIZATION. [code = URINARY TRACT INFECTION MANAGEMENT; RN/STRIPPER BLACK AND WHITE/RV REPAIR TECHNICIAN TO PROVIDE SKILLED TEACHING AND SELF- CARE MANAGEMENT RELATED TO UTI TO MINIMIZE COMPLICATIONS AND REDUCE THE RISK OF HOSPITALIZATION.] Future Scheduled Test GASTROINTE STINAL MANAGEMENT; RN TO ASSESS AND TEACH, STRIPPER BLACK AND WHITE/RV REPAIR TECHNICIAN TO OBSERVE AND TEACH RELATED TO ALTERED GASTROINTESTINAL STATUS TO MINIMIZE COMPLICATIONS AND REDUCE HOSPITALIZATION. [code = GASTROINTESTINAL MANAGEMENT; RN TO ASSESS AND TEACH, STRIPPER BLACK AND WHITE/RV REPAIR TECHNICIAN TO OBSERVE AND TEACH RELATED TO ALTERED GASTROINTESTINAL STATUS TO MINIMIZE COMPLICATIONS AND REDUCE HOSPITALIZATION.] Future Scheduled Test RN TO ASSE SS AND TEACH, RV REPAIR TECHNICIAN/STRIPPER BLACK AND WHITE TO OBSERVE AND INSTRUCT PATIENT/CAREGIVER ON DIVERTICULAR DISEASE MANAGEMENT. [code = RN TO ASSESS AND TEACH, RV REPAIR TECHNICIAN/STRIPPER BLACK AND WHITE TO OBSERVE AND INSTRUCT PATIENT/CAREGIVER ON DIVERTICULAR DISEASE MANAGEMENT.] Future Scheduled Test RN TO ASSE SS AND TEACH, RV REPAIR TECHNICIAN/STRIPPER BLACK AND WHITE TO OBSERVE AND TEACH FOR SIGNS AND SYMPTOMS OF SEPSIS AND/OR POST-SEPSIS SYNDROME AND INTERVENE TO MINIMIZE COMPLICATIONS. RN/RV REPAIR TECHNICIAN/STRIPPER BLACK AND WHITE TO PROVIDE SKILLED TEACHING TO PATIENT/CAREGIVER ON SEPSIS AND SELF-MANAGEMENT TECHNIQUES. RN/RV REPAIR TECHNICIAN/STRIPPER BLACK AND WHITE TO MONITOR PATIENT/CAREGIVER ADHERENCE TO MONITOR AND RECORD VITAL SIGNS INCLUDING TEMPERATURE, HEART RATE, RESPIRATIONS, AND SYMPTOMS. [code = RN TO ASSESS AND TEACH, RV REPAIR TECHNICIAN/STRIPPER BLACK AND WHITE TO OBSERVE AND TEACH FOR SIGNS AND SYMPTOMS OF SEPSIS AND/OR POST-SEPSIS SYNDROME AND INTERVENE TO MINIMIZE COMPLICATIONS. RN/RV REPAIR TECHNICIAN/STRIPPER BLACK AND WHITE TO PROVIDE SKILLED TEACHING TO PATIENT/CAREGIVER ON SEPSIS AND SELF-MANAGEMENT TECHNIQUES. RN/RV REPAIR TECHNICIAN/STRIPPER BLACK AND WHITE TO MONITOR PATIENT/CAREGIVER ADHERENCE TO MONITOR AND RECORD VITAL SIGNS INCLUDING TEMPERATURE, HEART RATE, RESPIRATIONS, AND SYMPTOMS.] Future Scheduled Test FALL REDUC TION MANAGEMENT; RN TO ASSESS AND OBSERVE, RV REPAIR TECHNICIAN/STRIPPER BLACK AND WHITE TO OBSERVE FALL RISK FACTORS AND EDUCATE PATIENT/CAREGIVER ON STRATEGIES TO MINIMIZE THE RISK OF FALLING. [code = FALL REDUCTION MANAGEMENT; RN TO ASSESS AND OBSERVE, RV REPAIR TECHNICIAN/STRIPPER BLACK AND WHITE TO OBSERVE FALL RISK FACTORS AND EDUCATE PATIENT/CAREGIVER ON STRATEGIES TO MINIMIZE THE RISK OF FALLING.] Future Scheduled Test PHYSICAL T HERAPIST TO EVALUATE FOR BALANCE AND STRENGTHENING [code = PHYSICAL THERAPIST TO EVALUATE FOR BALANCE AND STRENGTHENING] Future Scheduled Test OCCUPATION AL THERAPIST TO EVALUATE FOR TREMOR [code = OCCUPATIONAL THERAPIST TO EVALUATE FOR TREMOR] Future Scheduled Test AGENCY MAY PERFORM A RESUMPTION OF CARE VISIT FOLLOWING ANY HOSPITAL ADMISSION. PT TO EVALUATE, OBSERVE / ASSESS, AND MONITOR, DIRECTOR ACCOUNT MANAGEMENT TO OBSERVE AND MONITOR, PROVIDE SKILLED THERAPEUTIC INTERVENTION, ACTIVITY, EDUCATION, AND TRAINING TO ADDRESS; BED MOBILITY (PT/DIRECTOR ACCOUNT MANAGEMENT) PT/DIRECTOR ACCOUNT MANAGEMENT TO PROVIDE GAIT TRAINING FOR IMPROVED MOBILITY AND /OR TO NORMALIZE GAIT PATTERN NEUROMUSCULAR RE-EDUCATION / BALANCE / POSTURAL CONTROL (PT) THERAPEUTIC EXERCISES AND ESTABLISHING A HOME EXERCISE PROGRAM (PT/DIRECTOR ACCOUNT MANAGEMENT) SIT TO/FROM STAND TRANSFERS (PT/DIRECTOR ACCOUNT MANAGEMENT) PT / DIRECTOR ACCOUNT MANAGEMENT TO MONITOR AND EDUCATE ON OXYGEN SATURATION DURING ADLS/IADLS, NOTIFY PHYSICIAN AND/OR THE RN CLINICAL GENERAL ADMINISTRATOR FOR PHYSICIAN NOTIFICATION AND IF O2 SATS BELOW PHYSICIAN ORDERED PARAMETERS AFTER 10 MIN OF REST PT / DIRECTOR ACCOUNT MANAGEMENT TO INSTRUCT PATIENT/CAREGIVER ON RISK FOR HOSPITALIZATION/EMERGENCY ROOM VISITS, TEACH SIGNS AND SYMPTOMS THAT PUT PATIENT AT RISK, WHEN TO NOTIFY NURSE/PHYSICIAN OF COMPLICATIONS/DECLINE, AND WHEN TO CALL 911. PT/DIRECTOR ACCOUNT MANAGEMENT TO IDENTIFY FALL RISK FACTORS; EDUCATE THE PATIENT/CAREGIVER ON WAYS TO REDUCE FALL RISK FACTORS AND ESTABLISH HOME EXERCISE PROGRAM TO MINIMIZE FALL RISK. MAY TEACH THE PATIENT FLOOR RECOVERY WHEN CLINICALLY APPROPRIATE [code = AGENCY MAY PERFORM A RESUMPTION OF CARE VISIT FOLLOWING ANY HOSPITAL ADMISSION. PT TO EVALUATE, OBSERVE / ASSESS, AND MONITOR, DIRECTOR ACCOUNT MANAGEMENT TO OBSERVE AND MONITOR, PROVIDE SKILLED THERAPEUTIC INTERVENTION, ACTIVITY, EDUCATION, AND TRAINING TO ADDRESS; BED MOBILITY (PT/DIRECTOR ACCOUNT MANAGEMENT) PT/DIRECTOR ACCOUNT MANAGEMENT TO PROVIDE GAIT TRAINING FOR IMPROVED MOBILITY AND /OR TO NORMALIZE GAIT PATTERN NEUROMUSCULAR RE-EDUCATION / BALANCE / POSTURAL CONTROL (PT) THERAPEUTIC EXERCISES AND ESTABLISHING A HOME EXERCISE PROGRAM (PT/DIRECTOR ACCOUNT MANAGEMENT) SIT TO/FROM STAND TRANSFERS (PT/DIRECTOR ACCOUNT MANAGEMENT) PT / DIRECTOR ACCOUNT MANAGEMENT TO MONITOR AND EDUCATE ON OXYGEN SATURATION DURING ADLS/IADLS, NOTIFY PHYSICIAN AND/OR THE RN CLINICAL GENERAL ADMINISTRATOR FOR PHYSICIAN NOTIFICATION AND IF O2 SATS BELOW PHYSICIAN ORDERED PARAMETERS AFTER 10 MIN OF REST PT / DIRECTOR ACCOUNT MANAGEMENT TO INSTRUCT PATIENT/CAREGIVER ON RISK FOR HOSPITALIZATION/EMERGENCY ROOM VISITS, TEACH SIGNS AND SYMPTOMS THAT PUT PATIENT AT RISK, WHEN TO NOTIFY NURSE/PHYSICIAN OF COMPLICATIONS/DECLINE, AND WHEN TO CALL 911. PT/DIRECTOR ACCOUNT MANAGEMENT TO IDENTIFY FALL RISK FACTORS; EDUCATE THE PATIENT/CAREGIVER ON WAYS TO REDUCE FALL RISK FACTORS AND ESTABLISH HOME EXERCISE PROGRAM TO MINIMIZE FALL RISK. MAY TEACH THE PATIENT FLOOR RECOVERY WHEN CLINICALLY APPROPRIATE] Future Scheduled Test AGENCY MAY PERFORM A RESUMPTION OF CARE VISIT FOLLOWING ANY HOSPITAL ADMISSION. OT TO EVALUATE, OBSERVE / ASSESS, AND MONITOR, PATHOLOGY LAB TECHNICIAN TO OBSERVE AND MONITOR, PROVIDE SKILLED THERAPEUTIC INTERVENTION, ACTIVITY, EDUCATION, AND TRAINING TO ADDRESS;IMPROVEMENT OF STRENGTH, ACTIVITY TOLERANCE, BALANCE, HEP INSTRUCTION, HOME SAFETY RECOMMENDATIONS, SELF CARE RETRAINING PERSONAL HYGIENE/GROOMING (OT/LARRY) BATHING/SHOWERING (OT/LARRY) TOILETING HYGIENE (OT/LARRY) DRESSING (OT/LARRY) ACTIVITIES OF DAILY LIVING (OT/LARRY) TOILET TRANSFER (OT/LARRY) BATH/SHOWER TRANSFER (OT/LARRY) POSTURAL CONTROL/BALANCE (OT/PATHOLOGY LAB TECHNICIAN) THERAPEUTIC EXERCISE (OT/PATHOLOGY LAB TECHNICIAN) OT/PATHOLOGY LAB TECHNICIAN TO MONITOR PATIENT WITH STABLE DEPRESSION ON SIGNS AND SYMPTOMS OF WORSENING DEPRESSION AND AVAILABLE RESOURCES INCLUDING [facility] [employer] [facility]. OT/LARRY MAY EDUCATE ON PAIN MANAGEMENT CLINICALLY INDICATED, INCLUDING NON-PHARMACOLOGICAL PAIN REDUCTION TECHNIQUES AND USE OF CRYOTHERAPY OR HEAT UP TO 20 MIN AT A TIME FOR PAIN MANAGEMENT [code = AGENCY MAY PERFORM A RESUMPTION OF CARE VISIT FOLLOWING ANY HOSPITAL ADMISSION. OT TO EVALUATE, OBSERVE / ASSESS, AND MONITOR, PATHOLOGY LAB TECHNICIAN TO OBSERVE AND MONITOR, PROVIDE SKILLED THERAPEUTIC INTERVENTION, ACTIVITY, EDUCATION, AND TRAINING TO ADDRESS;IMPROVEMENT OF STRENGTH, ACTIVITY TOLERANCE, BALANCE, HEP INSTRUCTION, HOME SAFETY RECOMMENDATIONS, SELF CARE RETRAINING PERSONAL HYGIENE/GROOMING (OT/LARRY) BATHING/SHOWERING (OT/PATHOLOGY LAB TECHNICIAN) TOILETING HYGIENE (OT/PATHOLOGY LAB TECHNICIAN) DRESSING (OT/LARRY) ACTIVITIES OF DAILY LIVING (OT/LARRY) TOILET TRANSFER (OT/PATHOLOGY LAB TECHNICIAN) BATH/SHOWER TRANSFER (OT/PATHOLOGY LAB TECHNICIAN) POSTURAL CONTROL/BALANCE (OT/LARRY) THERAPEUTIC EXERCISE (OT/LARRY) OT/LARRY TO MONITOR PATIENT WITH STABLE DEPRESSION ON SIGNS AND SYMPTOMS OF WORSENING DEPRESSION AND AVAILABLE RESOURCES INCLUDING [facility] [employer] [facility]. OT/PATHOLOGY LAB TECHNICIAN MAY EDUCATE ON PAIN MANAGEMENT CLINICALLY INDICATED, INCLUDING NON-PHARMACOLOGICAL PAIN REDUCTION TECHNIQUES AND USE OF CRYOTHERAPY OR HEAT UP TO 20 MIN AT A TIME FOR PAIN MANAGEMENT] Goal 2025-09-13 Patient Goal - T O GET STRONGER AND BE ABLE TO EAT Goal Provider Goal - A PLAN OF CARE WILL BE ESTABLISHED THAT MEETS THE PATIENT S NEEDS. PATIENT WILL DEMONSTRATE OXYGEN SATURATION WITHIN NORMAL LIMITS OR PATIENT S OPTIMAL LEVEL ESTABLISHED BY THE PHYSICIAN THROUGHOUT CARE. CHANGES TO CO-MORBID CONDITIONS AND ANY NEW CONDITIONS WILL BE IDENTIFIED AND REPORTED TO THE PHYSICIAN. Goal Provider Goal - PATIENT/CAREGIVER WILL VERBALIZE UNDERSTANDING OF SIGNS AND SYMPTOMS THAT PUT THE PATIENT AT RISK FOR HOSPITALIZATION /EMERGENCY ROOM VISITS, WHEN TO NOTIFY NURSE/PHYSICIAN OF COMPLICATIONS/DECLINE AND WHEN TO CALL 911. Goal Provider Goal - PATIENT / CAREGIVER WILL VERBALIZE/DEMONSTRATE UNDERSTANDING OF MEASURES TO MANAGE ALTERED GENITOURINARY STATUS BY END OF EPISODE. Goal Provider Goal - PATIENT/CAREGIVER WILL VERBALIZE/DEMONSTRATE UNDERSTANDING OF CARE AND MANAGEMENT OF URINARY TRACT INFECTION BY 60 FAYS Goal Provider Goal - PATIENT / CAREGIVER WILL VERBALIZE/DEMONSTRATE UNDERSTANDING OF MEASURES TO MANAGE ALTERED GASTROINTESTINAL STATUS BY END OF EPISODE. Goal Provider Goal - PATIENT/CAREGIVER WILL VERBALIZE/ DEMONSTRATE STRATEGIES TO MANAGE DIVERTICULAR DISEASE. Goal Provider Goal - SIGNS OF SEPSIS WILL BE IDENTIFIED PROMPTLY, AND INTERVENTIONS INITIATED TO MINIMIZE SEVERITY AND RISK OF HOSPITALIZATION. POST-SEPSIS SYNDROME INTERVENTIONS WILL BE REVIEWED WITH THE PATIENT/CAREGIVER, IF APPLICABLE. PATIENT / CAREGIVER WILL VERBALIZE/DEMONSTRATE AN ABILITY TO ADHERE TO SELF-MANAGEMENT AT DISCHARGE BY 60 FAYS Goal Provider Goal - PATIENT/CAREGIVER WILL VERBALIZE/DEMONSTRATE UNDERSTANDING OF FALL RISK FACTORS AND IMPLEMENT STRATEGIES TO MINIMIZE FALL RISK. PATIENT/CAREGIVER WILL VERBALIZE/DEMONSTRATE AN ABILITY TO ADHERE TO FALL REDUCTION SELF-MANAGEMENT AND LIFE-STYLE CHANGES BY 60 DAYS Goal Provider Goal - Goal Provider Goal - Goal Provider Goal - PT LTG: PATIENT WILL DEMONSTRATE IMPROVED BED MOBILITY TO REDUCE THE RISK OF SKIN INTEGRITY ISSUES AND/OR PAIN FROM MIN TO IND WITHIN 8 WEEKS PT STG: PATIENT WILL DEMONSTRATE IMPROVED 6 MINUTE WALK TEST AMBULATION FROM 10 FT MIN TO 50 FT SBA WITH APPROPRIATE AD WITHIN 4 WEEKS. PT LTG: PATIENT WILL DEMONSTRATE IMPROVED 6 MINUTE WALK TEST AMBULATION FROM 10 FT MIN TO 300 FT IND WITH APPROPRIATE AD WITHIN 8 WEEKS. PT LTG: PATIENT WILL DEMONSTRATE REDUCED FALL RISK EVIDENCED BY TUG TEST (CUT SCORE >11 SECONDS INDICATES INCREASED FALL RISK) IMPROVING FROM UNABLE TO LESS THAN OR EQUAL TO 20 SECONDS WITHIN 8 WEEKS PT STG: PATIENT WILL DEMONSTRATE IMPROVEMENT ON CHAIR RISE TEST FROM 0 TO 2 INDICATING DECREASED FALL RISK WITHIN 4 WEEKS. PT LTG: PATIENT WILL DEMONSTRATE IMPROVEMENT ON CHAIR RISE TEST FROM 0 TO 5 INDICATING DECREASED FALL RISK WITHIN 8 WEEKS. PT LTG: PATIENT WILL DEMONSTRATE INDEPENDENCE AND COMPLIANCE WITH HEP WITHIN 4 WEEKS PT STG: PATIENT WILL DEMONSTRATE IMPROVED ABILITY TO PERFORM SIT TO/FROM STAND TRANSFERS TO REDUCE THE RISK OF SKIN BREAKDOWN AND REDUCE FALL RISK FROM MOD TO MIN WITHIN 4 WEEKS PT LTG: PATIENT WILL DEMONSTRATE IMPROVED ABILITY TO PERFORM SIT TO/FROM STAND TRANSFERS TO REDUCE THE RISK OF SKIN BREAKDOWN AND REDUCE FALL RISK FROM MOD TO IND WITHIN 8 WEEKS PT LTG: PATIENT WILL MAINTAIN OXYGEN SATURATION WITHIN PHYSICIAN ORDERED PARAMETERS THROUGHOUT EPISODE OF CARE. PT GOAL: PATIENT/CAREGIVER WILL VERBALIZE UNDERSTANDING OF SIGNS AND SYMPTOMS THAT PUT THE PATIENT AT RISK FOR HOSPITALIZATION /EMERGENCY ROOM VISITS, WHEN TO NOTIFY NURSE/PHYSICIAN OF COMPLICATIONS/DECLINE AND WHEN TO CALL 911. PT LTG: PATIENT/CAREGIVER WILL DEMONSTRATE ADHERENCE TO FALL REDUCTION SELF-MANAGEMENT AND REDUCING FALL RISK FACTORS TO MINIMIZE FALL RISK BY END OF EPISODE. Goal Provider Goal - OT STG: PATIENT WILL DEMONSTRATE IMPROVED ABILITY TO PERFORM PERSONAL GROOMING AND HYGIENE TASKS FROM MODERATE ASSISTANCE TO CONTACT GUARD ASSISTANCE WITHIN 5 WEEKS OT LTG: PATIENT WILL DEMONSTRATE IMPROVED ABILITY TO PERFORM PERSONAL GROOMING AND HYGIENE TESTS FROM MODERATE ASSISTANCE TO INDEPENDENCE WITHIN 9 WEEKS OT STG: PATIENT WILL DEMONSTRATE IMPROVED ABILITY TO PERFORM TOTAL BODY BATHING TO REDUCE CAREGIVER BURDEN OF CARE FROM DEPENDENT TO MODERATE ASSISTANCE WITHIN 6 WEEKS OT LTG: PATIENT WILL DEMONSTRATE IMPROVED ABILITY TO PERFORM BATHING/SHOWERING AND REDUCE CAREGIVER BURDEN FROM DEPENDENT TO CONTACT GUARD ASSISTANCE WITHIN 9 WEEKS OT STG: PATIENT WILL DEMONSTRATE AND PROVED ABILITY TO PERFORM TOILET HYGIENE AND CLOTHING ADJUSTMENT TO REDUCE CAREGIVER BURDEN OF CARE FROM MODERATE ASSISTANCE TO CONTACT GUARD ASSISTANCE WITHIN 5 WEEKS OT LTG: PATIENT WILL DEMONSTRATE IMPROVED ABILITY TO PERFORM TOILET HYGIENE AND CLOTHING ADJUSTMENT TO REDUCE CAREGIVER BURDEN OF CARE FOR MODERATE ASSISTANCE TO INDEPENDENCE WITHIN 9 WEEKS OT STG: PATIENT WILL DEMONSTRATE IMPROVED ABILITY TO PERFORM LOWER BODY DRESSING TO REDUCE CAREGIVER BURDEN OF CARE FROM MAXIMAL ASSISTANCE TO CONTACT GUARD ASSISTANCE WITHIN 5 WEEKS OT LTG: PATIENT WILL DEMONSTRATE IMPROVED ABILITY TO PERFORM LOWER BODY DRESSING TO REDUCE CAREGIVER BURDEN FROM MAXIMAL ASSISTANCE TO INDEPENDENCE WITHIN 9 WEEKS OT LTG: PATIENT WILL DEMONSTRATE IMPROVEMENT IN MODIFIED [place] INDEX SCORE FROM 63 TO 86 INDICATING DECREASED DEPENDENCY ON CAREGIVER ASSISTANCE WITH ACTIVITIES OF DAILY LIVING WITHIN 9 WEEKS OT STG: PATIENT WILL DEMONSTRATE IMPROVED ABILITY TO PERFORM TOILET TRANSFERS TO REDUCE FALL RISK AND RISK OF INCONTINENCE AND UTI DEVELOPMENT FROM MODERATE ASSISTANCE TO STAND BY ASSISTANCE WITHIN 5 WEEKS OT LTG: PATIENT WILL DEMONSTRATE IMPROVED ABILITY TO PERFORM TOILET TRANSFERS TO REDUCE FALL RISK AND RISK OF INCONTINENCE AND UTI DEVELOPMENT FROM MODERATE ASSISTANCE TO INDEPENDENCE WITHIN 9 WEEKS OT STG: PATIENT WILL DEMONSTRATE IMPROVED ABILITY AND SAFETY TO PERFORM TUB TRANSFER FROM DEPENDENT STATUS TO MODERATE ASSISTANCE WITHIN 6 WEEKS OT LTG: PATIENT WILL DEMONSTRATE IMPROVED ABILITY AND SAFETY TO PERFORM TUB TRANSFER FROM DEPENDENT STATUS TO MINIMAL ASSISTANCE WITHIN 9 WEEKS OT STG: PATIENT WILL DEMONSTRATE IMPROVED POSTURAL CONTROL AND DECREASED FALL RISK EVIDENCED BY AN IMPROVEMENT IN FUNCTIONAL REACH SCORE FROM 5 INCHES TO 8 INCHES WITHIN 6 WEEKS IN ORDER TO IMPROVE SELF CARE PERFORMANCE OT LTG: PATIENT WILL DEMONSTRATE IMPROVED POSTURAL CONTROL AND DECREASED FALL RISK EVIDENCED BY AN IMPROVEMENT IN FUNCTIONAL REACH SCORE FROM 5 INCHES TO 10 INCHES WITHIN 9 WEEKS IN ORDER TO IMPROVE SELF CARE PERFORMANCE OT STG: PATIENT WILL PERFORM HER BILATERAL OF HER EXTREMITY STRENGTHENING HOME EXERCISE PROGRAM FROM UNABLE TO INDEPENDENT WITHIN 3 WEEKS OT STG: PATIENT WILL DEMONSTRATE IMPROVED BUE MUSCLE STRENGTH EVIDENCED BY AN IMPROVEMENT IN MMT/FUNCTIONAL STRENGTH FROM 3+/5 TO 4-/5 WITHIN 6 WEEKS IN ORDER TO IMPROVE SELF CARE PERFORMANCE OT LTG: PATIENT WILL DEMONSTRATE IMPROVED BUE MUSCLE STRENGTH EVIDENCED BY AN IMPROVEMENT IN MMT/FUNCTIONAL STRENGTH FROM 3+/5 TO 4/5 WITHIN 9 WEEKS IN ORDER TO IMPROVE SELF CARE PERFORMANCE OT GOAL: EARLY IDENTIFICATION OF WORSENING DEPRESSION WITH TIMELY SN AND/OR PHYSICIAN NOTIFICATION. OT LTG: PATIENT WILL DEMONSTRATE UNDERSTANDING OF PAIN MANAGEMENT TECHNIQUES Reason for Visit INDEPENDENT IN THE COMMUNITY Encounters Start Date/Time End Date/Time Encounter Type Admission Type Attending [facility] Care Department Encounter ID Discharge Date Discharge Status Discharge Condition Discharge Reason Percent Goals Met 2025-07-19 00:00:00 2025-09-13 00:00:00 Outpatient [facility] [id number] 2025-09-13 00:00:00 DISCHARGE TO HOME OR SELF CARE [facility]DEPENDEN T IN THE COMMUNITY HH - NO LONGER REQUIRES SKILLED CARE 45.00
--- OUTSIDE RECORDS SUMMARY | 2025-09-26 16:17 | XMS_ITS | Clinical Summary ---
Author Organization [employer] [facility] Address [address] [place] [address] Phone Care Team Providers Care Sandfill Operator Name Role Phone Javi Corrales MD Primary [...]
--- OUTSIDE RECORDS SUMMARY | 2025-09-26 16:18 | XMS_ITS | Encounter Summary ---
[facility] Organization [facility] Address [address] [place] [address] Care Team Providers Care Assembly Person Name Role Phone Manas Jenkins MD Primary Care Provider + Reason for Visit * Reason Comments Med Refill Encounter Details Date Type Department Care Team (Late st Contact Info) Description 01/30/2025 Refill [facility] [address] [place] [address] Manas Jenkins MD [address] [place] [address] 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 Tobacco Use Types [...] Mallory Relationship: Self Best call back number: [phone] Requested Prescriptions: Requested Prescriptions Pending Prescriptions Disp Refills promethazine (PHENERGAN) 25 MG tablet [Pharmacy Med Name: PROMETHAZINE 25MG] 30 tablet 0 Sig: TAKE 1 TABLET BY MOUTH EVERY SIX HOURS NEEDED FOR NAUSEA OR VOMITING MAY CAUSE DROWSINESS Pharmacy where request should be sent: [facility] [place] - [address] [facility] - [phone] - [phone] FX Last office visit with prescribing clinician: [...] Care Team (Late st Contact Info) Description 09/29/2025 11:15 AM EST Office Visit [facility] [address] [place] [address] Manas Jenkins MD [address] [address] documented as of this encounter Visit Diagnoses Not on filedocumented in this encounter Additional Health Concerns Assessment Noted Time PHQ-2 Depression Total Score: 1 11/27/19 24 1:57 PM EST documented as of this encounter Care Teams Assembly Person Relationship Specialty Start Date End Date Manas Jenkins MD [address] [address] PCP - General Family Medicine 05/02/22 documented as of this encounter
--- OUTSIDE RECORDS SUMMARY | 2025-09-26 16:18 | XMS_ITS | Encounter Summary ---
Author Organization [facility] Address [address] [place] [address] Care Team Providers Care Steam Turbine Operator Name Role Phone Manas Jenkins MD Primary Care Provider + Reason for Visit * Reason Comments Med Refill Encounter Details Date Type Department Care Team (Late Contact Info) Description 05/30/2025 Refill [facility] [address] [place] [address] Manas Jenkins MD [address] [place] [address] 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 Tobacco Use Types [...] Department Care Team (Late Contact Info) Description 09/29/2025 11:15 AM EST Office Visit [facility] [address] [place] [address] Manas Jenkins MD [address] [place] [address] documented as of this encounter Visit Diagnoses Not on filedocumented in this encounter Additional Health Concerns Assessment Noted Time PHQ-2 Depression Total Score: 1 11/27/19 24 1:57 PM EST documented as of this encounter Care Teams Steam Turbine Operator Relationship Specialty Start Date End Date Manas Jenkins MD [address] [place] [address] PCP - General Family Medicine 05/02/22 documented as of this encounter
--- OUTSIDE RECORDS SUMMARY | 2025-09-26 16:18 | XMS_ITS | Encounter Summary ---
Author Organization [facility] Address [address] [place] [address] Care Team Providers Care Auto Parts Manager Name Role Phone Manas Jenkins MD Primary Care Provider + Reason for Visit * Reason Comments Med Refill Encounter Details Date Type Department Care Team (Late Contact Info) Description 09/25/2025 Refill [facility] [address] [place] [address] Manas Jenkins MD [address] [place] [address] Chronic right-sided low back pain with right-sided sciatica; Hypercholesterolemia 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 Tobacco Use Types Packs/Day [...] Description 09/29/2025 11:15 AM EST Office Visit [facility] [address] [place] [address] Manas Jenkins MD [address] [place] [address] documented as of this encounter Visit Diagnoses Diagnosis Chronic right-sided low back pain with right-sided sciatica Hypercholesterolemia Pure hypercholesterolemia documented in this encounter Additional Health Concerns Assessment Noted Time PHQ-2 Depression Total Score: 1 11/27/19 24 1:57 PM EST documented as of this encounter Care Teams Auto Parts Manager Relationship Specialty Start Date End Date Manas Jenkins MD [address] [place] [address] PCP - General Family Medicine 05/02/22 documented as of this encounter
--- OUTSIDE RECORDS SUMMARY | 2025-09-26 16:18 | XMS_ITS | Encounter Summary ---
[facility] Organization [facility] Address [address] [place] [address] Care Team Providers Care Planting Supervisor Name Role Phone Manas Blancas MD Primary Care Provider + Reason for Visit * Reason Onset Date Comments Med Refill 09/17/2022 Encounter Details Date Type Department Care Team (Late st Contact Info) Description 09/17/2022 Refill [facility] [address] [place] [address] Manas Blancas MD [address] [place] [address] Lumbar degenerative disc disease Social [...] Mallory Relationship: Self Best call back number: [phone] Requested Prescriptions: Requested Prescriptions Pending Prescriptions Disp Refills ??? oxyCODONE-acetaminophen (PERCOCET) 10-325 MG per tablet 90 tablet 0 Sig: Take 1 tablet by mouth Every 8 (Eight) Hours As Needed for Severe Pain. ??? potassium chloride (K-DUR,KLOR-CON) 20 MEQ CR tablet 90 tablet 2 Sig: Take 1 tablet by mouth 3 (Three) Times a Day. Pharmacy where request should be sent: [facility] [address] [facility] [phone] [facility] [phone] Additional details provided by patient: PATIENT STATED [...] Description 09/29/2025 11:15 AM EST Office Visit [facility] [address] [place] [address] Manas Blancas MD [address] [address] documented as of this encounter Visit Diagnoses Diagnosis Lumbar degenerative disc disease documented in this encounter Additional Health Concerns Assessment Noted Time PHQ-2 Depression Total Score: 6 05/02/20 22 12:07 PM EDT documented as of this encounter Care Teams Planting Supervisor Relationship Specialty Start Date End Date Manas Blancas MD [address] [place] [address] PCP - General Family Medicine 05/02/22 documented as of this encounter
--- OUTSIDE RECORDS SUMMARY | 2025-09-26 16:18 | XMS_ITS | Encounter Summary ---
[facility] Address [address] [place] [address] Care Team Providers Care Wastewater Treatment Plant Chemist Name Role Phone Manas Jenkins MD Primary Care Provider + Reason for Visit * Reason Onset Date Comments Med Refill 03/01/2025 Encounter Details Date Type Department Care Team (Late st Contact Info) Description 03/01/2025 Refill [facility] [address] [place] [address] Manas Jenkins MD [address] [place] [address] Primary osteoarthritis of right knee; [...] Jenkins is out this wk. Suggested she shrimp picker the remaining refill at the pharmacy until he returns. She understood. * Telephone Encounter - Lorena Chawla RegSched Rep - 03/01/2025 8:11 AM EDT Caller: Laura Mallory Relationship: Self Best call back number: [phone] Requested Prescriptions: Requested Prescriptions Pending Prescriptions Disp Refills traMADol (ULTRAM) 50 MG tablet 90 tablet 1 Sig: Take 1 tablet by mouth Every 8 (Eight) Hours As Needed for Moderate Pain. Pharmacy where request should be sent: [facility] - [address] [phone] [facility] [phone] Last office visit with prescribing clinician: 11/04/2024 [...] Description 09/29/2025 11:15 AM EST Office Visit [facility] [address] [place] [id number] Manas Jenkins MD [address] [place] [address] documented as of this encounter Visit Diagnoses Diagnosis Primary osteoarthritis of right knee Chronic right-sided low back pain with right-sided sciatica documented in this encounter Additional Health Concerns Assessment Noted Time PHQ-2 Depression Total Score: 1 11/27/19 24 1:57 PM EST documented as of this encounter Care Teams Wastewater Treatment Plant Chemist Relationship Specialty Start Date End Date Manas Jenkins MD [address] [place] [address] PCP - General Family Medicine 05/02/22 documented as of this encounter
--- OUTSIDE RECORDS SUMMARY | 2025-09-26 16:18 | XMS_ITS | Clinical Summary ---
Author Organization [facility] Address [address] [place] [address] Care Team Providers Care Retail Loan Originator Name Role Phone Stevo Salter MD Primary Care Provider [phone] 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 Tobacco Use Types Packs/Day Years [...] 2009 UKY-Zoster Vaccines (1 of 2) 2009 [id number] Vaccine (1 - 20 24-25 season) 2025 [...] age to complete this topic Insurance [id number] [place] [id number] MEDICARE MEDICAID[place] Care Teams Retail Loan Originator Relationship Specialty Start Date End Date Stevo Salter MD [address] [place] [address] [address] [place] [id number] PCP - General 5/14/21
--- OUTSIDE RECORDS SUMMARY | 2025-09-26 16:18 | XMS_ITS | Encounter Summary ---
[facility] Address [address] [place] [address] Care Team Providers Care Log Processor Operator Name Role Phone Manas Jenkins MD Primary Care Provider + Reason for Visit * Reason Onset Date Comments Advice Only 09/22/2025 Encounter Details Date Type Department Care Team (Late st Contact Info) Description 09/22/2025 Telephone [facility] [address] [place] [address] Manas Jenkins MD [address] [place] [address] Advice Only 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 Tobacco Use Types Packs/Day Years [...] Telephone Encounter - Zee Marcos MA - 09/22/2025 5:12 PM EDT Informed Akua martines would sign orders * Telephone Encounter - Manas Jenkins MD - 09/22/2025 4:36 PM EDT I will sign orders * Telephone Encounter - Genesis Peters - 09/22/2025 3:37 PM EDT Ivania called back in and the patient has agreed to having PT, OT, & RESIDENTIAL if Dr. Jenkins will sign and follow orders * Telephone Encounter - Sol Boyd RegSched Rep - 09/22/2025 10:35 AM EDT PATIENT IS BEING DISCHARGED FROM TODAY, REQUESTING THAT PCP WILL FOLLOW AND SIGN HOME HEALTH ORDERS FROM . documented in this encounter Plan of Treatment Upcoming Encounters Date Type Department Care Team (Late st Contact Info) Description 09/29/2025 11:15 AM EST Office Visit [facility] [address] [place] [phone] Manas Jenkins MD [address] [place] [address] documented as of this encounter Visit Diagnoses Not on filedocumented in this encounter Additional Health Concerns Assessment Noted Time PHQ-2 Depression Total Score: 1 11/27/19 24 1:57 PM EST documented as of this encounter Care Teams Log Processor Operator Relationship Specialty Start Date End Date Manas Jenkins MD [address] [place] [address] PCP - General Family Medicine 05/02/22 documented as of this encounter
--- OUTSIDE RECORDS SUMMARY | 2025-09-26 16:18 | XMS_ITS | Encounter Summary ---
[facility] Address [address] [place] [address] Care Team Providers Care Bods Developer Name Role Phone Manas Jenkins MD Primary Care Provider + Reason for Visit * Reason Onset Date Comments Med Refill 01/16/2023 Encounter Details Date Type Department Care Team (Late st Contact Info) Description 01/16/2023 Refill [facility] [address] [place] [address] Manas Jenkins MD [address] [place] [address] Migraine without aura and without [...] Mallory Relationship: Self Best call back number: [phone] Requested Prescriptions: Requested Prescriptions Pending Prescriptions Disp [...] Day. Pharmacy where request should be sent: [facility] [address] [phone] PH - [phone] FX Additional details provided by patient: PATIENT [...] 09/29/2025 11:15 AM EST Office Visit [facility] [address] [facility] [place] [address] Manas Jenkins MD [address] [place] [address] documented as of this encounter Visit Diagnoses Diagnosis Migraine without aura and without status migrainosus, not intractable Lumbar degenerative disc disease documented in this encounter Additional Health Concerns Assessment Noted Time PHQ-2 Depression Total Score: 2 01/07/20 23 2:21 PM EST documented as of this encounter Care Teams Bods Developer Relationship Specialty Start Date End Date Manas Jenkins MD [address] [place] [address] PCP - General Family Medicine 05/02/22 documented as of this encounter
--- OUTSIDE RECORDS SUMMARY | 2025-09-26 16:18 | XMS_ITS | Encounter Summary ---
[facility] Address [address] [place] [address] Care Team Providers Care Supervisor Fleshing Name Role Phone Manas Jenkins MD Primary Care Provider + Encounter Details Date Type Department Care Team (Late st Contact Info) Description 05/24/2025 Results Follow-Up [facility] [address] [place] [address] Manas Jenkins MD [address] [place] [address] 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 Tobacco Use Types [...] Description 09/29/2025 11:15 AM EST Office Visit [facility] [address] [place] [address] Manas Jenkins MD [address] [place] [address] documented as of this encounter Visit Diagnoses Not on filedocumented in this encounter Additional Health Concerns Assessment Noted Time PHQ-2 Depression Total Score: 1 11/27/19 24 1:57 PM EST documented as of this encounter Care Teams Supervisor Fleshing Relationship Specialty Start Date End Date Manas Jenkins MD [address] [place] [address] PCP - General Family Medicine 05/02/22 documented as of this encounter
--- OUTSIDE RECORDS SUMMARY | 2025-09-26 16:18 | XMS_ITS | Encounter Summary ---
[facility] Address [address] [place] [address] Care Team Providers Care Back Digger Operator Name Role Phone Manas Jenkins MD Primary Care Provider + Encounter Details Date Type Department Care Team (Late st Contact Info) Description 06/10/2025 Results Follow-Up [facility] [address] [place] [address] Manas Jenkins MD [address] [place] [address] 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 Tobacco Use Types [...] 09/29/2025 11:15 AM EST Office Visit [facility] [address] [place] [address] Manas Jenkins MD [address] [place] [address] documented as of this encounter Visit Diagnoses Not on filedocumented in this encounter Additional Health Concerns Assessment Noted Time PHQ-2 Depression Total Score: 1 11/27/19 24 1:57 PM EST documented as of this encounter Care Teams Back Digger Operator Relationship Specialty Start Date End Date Manas Jenkins MD [address] [place] [address] PCP - General Family Medicine 05/02/22 documented as of this encounter
--- OUTSIDE RECORDS SUMMARY | 2025-09-26 16:19 | XMS_ITS | Clinical Summary ---
[facility] Address [address] [place] [address] Care Team Providers Care Client Development Consultant Name Role Phone Manas Jenkins MD [...] MODERATE PAIN. 90 tablet 09/08/20 25 Active gabapentin (NEURONTIN) 100 MG capsuleIndications [...] Encounters Date Type Department Care Team Description 09/25/2025 Refill [facility] [address] [place] [address] Manas Jenkins MD Chronic right-sided low back pain with right-sided sciatica; Hypercholesterolemia 09/22/2025 Telephone [facility] [address] [place] [address] Manas Jenkins MD Advice Only 09/08/2025 Refill [facility] [address] [place] [address] Manas Jenkins MD Primary osteoarthritis of right knee; Chronic right-sided low back pain with right-sided sciatica 09/06/2025 Refill [facility] [address] [place] [address] Manas Jenkins MD Chronic right-sided low back pain with right-sided sciatica 08/17/2025 Refill [facility] [address] [place] [address] Manas Jenkins MD Hypercholesterolemia 08/15/2025 Refill [facility] [address] [place] [address] Manas Jenkins MD 08/09/2025 Telephone [facility] [address] [place] [address] Manas Jenkins MD New Med Request 08/07/2025 Refill [facility] [address] [place] [address] Manas Jenkins MD Chronic right-sided low back pain with right-sided sciatica; Primary osteoarthritis of right knee; Chronic right-sided low back pain with right-sided sciatica 07/28/2025 Telephone [facility] [address] [place] [address] Manas Jenkins MD New Med Request 07/15/2025 Results Follow-Up [facility] [address] [place] [address] Manas Jenkins MD 07/14/2025 11:15 AM EDT Office Visit [facility] [address] [facility] [place] [address] Manas Jenkins MD Hypomagnesemia (Primary Dx); Hypokalemia; Chronic anxiety; Chronic anxiety 07/14/2025 Travel 07/11/2025 Transitional Care Management Telephone Encounter [facility] [address] [place] [address] Fernanda Galeano RN 07/08/2025 Readmission Management [facility] [address] [place] [address] Shruthi Leone RN 07/08/2025 Telephone [facility] [address] [place] [address] Manas Jenkins MD Hospital Follow Up Visit 07/07/2025 Refill [facility] [address] [place] [address] Manas Jenkins MD Primary osteoarthritis of right knee; Chronic right-sided low back pain with right-sided sciatica 07/06/2025 Telephone [facility] [address] [place] [address] Manas Jenkins MD REQUEST CALL BACK 06/30/2025 10:00 AM EDT Office Visit [facility] [address] [place] [address] Manas Jenkins MD Cystitis (Primary Dx); Chronic diastolic (congestive) heart failure; Nausea; Hypotension, unspecified hypotension type 06/30/2025 Travel 06/27/2025 Refill [facility] [address] [place] [address] Manas Jenkins MD 06/27/2025 Telephone [facility] [address] [place] [address] Manas Jenkins MD CALLBACK 06/26/2025 Refill [facility] [address] [place] [address] Manas Jenkins MD from Last 3 Months Immunizations Immunization Administration [...] 11:15 AM EST Office Visit [facility] 210 [facility] [place] [address] Manas Jenkins MD 210 [facility] [place] [address] Health Maintenance Due Date Last Done [...] Name Priority Date/Time Associated Diagnosis Comments SCANNED EKG 09/14/2025 SCANNED - LABS 09/14/2025 SCANNED - LABS 09/14/2025 SCANNED - LABS 09/14/2025 SCANNED - LABS 09/14/2025 SCANNED - LABS 09/14/2025 SCANNED - LABS 09/14/2025 SCANNED - LABS 09/14/2025 SCANNED - LABS 09/14/2025 SCANNED - LABS 09/14/2025 SCANNED - LABS 09/14/2025 SCANNED - LABS 09/14/2025 SCANNED - LABS 09/14/2025 SCANNED - IMAGING 09/14/2025 SCANNED - IMAGING 09/14/2025 SCANNED - IMAGING 09/14/2025 SCANNED - LABS 09/12/2025 SCANNED - LABS [...] - IMAGING 07/06/2025 SCANNED - IMAGING 07/06/2025 LIPID PANEL Routine 05/20/2025 3:59 PM EDT Hypercholesterolemi a from Last 3 Months or Most Recently Relevant to Health Maintenance Results * ECG Scan (09/14/2025) Only the most recent of2 resultswithin the time period is included. Manas Jenkins MD ECG ORDERABLES Final Re sult * IMAGING SCANNED (09/14/2025) Only the most recent of7 resultswithin the time period is included. Anatomical Region Laterality Modality Radiographic Destiny ging Manas Jenkins MD IMG DIAGNOSTIC IMAGING O RDERABLES Final Result * LABS SCANNED (09/14/2025) Only the most recent of22 resultswithin the time period is included. Manas Jenkins MD LAB BLOOD ORDERABLES Fin al Result * (ABNORMAL) Magnesium (07/14/2025 11:52 AM EDT) Magnesium 1.4(L) 1.6 - 2.3 mg/dL [facility] Blood 07/14/2025 11:5 2 AM EDT 07/14/2025 Narrative [facility] (AMBULATORY) - 07/15/2025 7:09 AM EDT Performed at: 01 - [address] [id number] Leadership Program Associate: Dave Escudero PhD, Phone: [phone] Patient Fasting: N Manas Jenkins MD LAB BLOOD ORDERABLES Fin al Result [facility] (AMBULATORY) [address] [place] [address], [facility] [address] [place] [address], * (ABNORMAL) Basic Metabolic Panel (07/14/2025 11:52 AM EDT) Pathologist [facility] Glucose 101(H) 70 - 99 mg/dL [facility] [...] 11:5 2 AM EDT 07/14/2025 Narrative [facility] (AMBULATORY) - 07/15/2025 7:09 AM EDT Performed at: 01 - [address] [id number] Leadership Program Associate: Dave Escudero PhD, Phone: [phone] Patient Fasting: N us Manas Jenkins MD LAB BLOOD ORDERABLES Fin al Result [facility] [place] (AMBULATORY) [address] [place] [address], [facility] [address] [place] [address], * Lipid Panel (05/20/2025 3:59 PM EDT) Pathologist [facility] Total Cholesterol 152 100 - 199 mg/dL [...] AM EDT Performed at: 01 - [facility] [address] [place], [place] [id number] Leadership Program Associate: Dave Escudero PhD, Phone: [phone] Patient Fasting: Y Manas Jenkins MD LAB BLOOD ORDERABLES Fin al Result [facility] (AMBULATORY) [address] [place] [address], [facility] [address] [place] [address], from Last 3 Months or Most Recently Relevant to Health Maintenance Insurance MEDICARE A & B Member Subscriber Plan / Payer (Ef fective 2000-Present) Name:Laura Mallory Member ID:[id number] Relation to Subscriber:Self Name:Laura Mallory Subscriber ID:[id number] Payer ID:[id number] Group ID:Not on file Type:Not on file Address: [facility] [id number] Care Teams Client Development Consultant Relationship Specialty Start Date End Date Manas Jenkins MD [address] [place] [address] PCP - General Family Medicine 05/02/22
--- OUTSIDE RECORDS SUMMARY | 2025-09-26 16:19 | XMS_ITS | Encounter Summary ---
[facility] Address [address] [place] [address] Care Team Providers Care Manager People Name Role Phone Manas Jenkins MD Primary Care Provider + Reason for Visit * Reason Comments Med Refill Encounter Details Date Type Department Care Team (Late Contact Info) Description 08/17/2025 Refill [facility] [address] [facility] [place] [address] Manas Jenkins MD 210 [facility] [place] [address] Hypercholesterolemia 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 Tobacco Use [...] Description 09/29/2025 11:15 AM EST Office Visit [facility] [address] [place] [address] Manas Jenkins MD [address] [place] [address] documented as of this encounter Visit Diagnoses Diagnosis Hypercholesterolemia Pure hypercholesterolemia documented in this encounter Additional Health Concerns Assessment Noted Time PHQ-2 Depression Total Score: 1 11/27/19 24 1:57 PM EST documented as of this encounter Care Teams Manager People Relationship Specialty Start Date End Date Manas Jenkins MD [address] [place] [address] PCP - General Family Medicine 05/02/22 documented as of this encounter
--- OUTSIDE RECORDS SUMMARY | 2025-09-26 16:19 | XMS_ITS | Encounter Summary ---
Author [facility] Address [address] [place] [address] Care Team Providers Care Leather Cartridge Belt Maker Name Role Phone Manas Jenkins MD Primary Care Provider + Encounter Details Date Type Department Care Team (Late st Contact Info) Description 07/15/2025 Results Follow-Up [facility] [address] [place] [address] Manas Jenkins MD [address] [place] [address] 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 Tobacco Use Types [...] Description 09/29/2025 11:15 AM EST Office Visit [facility] [address] [place] [address] Manas Jenkins MD [address] [place] [address] documented as of this encounter Visit Diagnoses Diagnosis Hypomagnesemia- Primary Disorders of magnesium metabolism documented in this encounter Additional Health Concerns Assessment Noted Time PHQ-2 Depression Total Score: 1 11/27/19 24 1:57 PM EST documented as of this encounter Care Teams Leather Cartridge Belt Maker Relationship Specialty Start Date End Date Manas Jenkins MD [address] [place] [address] PCP - General Family Medicine 05/02/22 documented as of this encounter
--- OUTSIDE RECORDS SUMMARY | 2025-09-26 16:19 | XMS_ITS | Encounter Summary ---
[facility] Address [address] [place] [address] Care Team Providers Care Eyeletter Name Role Phone Manas Jenkins MD Primary Care Provider + Reason for Visit * Reason Onset Date Comments Hospital Follow Up Visit 07/08/2025 Encounter Details Date Type Department Care Team (Late st Contact Info) Description 07/08/2025 Telephone [facility] [address] [place] [address] Manas Jenkins MD [address] [place] [address] Hospital Follow Up Visit Social [...] Relationship to patient: Best call back number: [phone] New or established patient? [] New [x] Established Date of discharge: 07/08/2025 Facility discharged from: [facility] Diagnosis/Symptoms: HYPOMAGNESEMIA AND UTI Length of stay (If applicable): 2 DAYS Specialty Only: Did you see a [facility] provider? [] Yes [x] No If so, who? Additional Details: documented in this encounter Plan of Treatment Upcoming Encounters Date Type Department Care Team (Late st Contact Info) Description 09/29/2025 11:15 AM EST Office Visit [facility] [address] [place] [address] Manas Jenkins MD [address] [place] [address] documented as of this encounter Visit Diagnoses Not on filedocumented in this encounter Additional Health Concerns Assessment Noted Time PHQ-2 Depression Total Score: 1 11/27/19 24 1:57 PM EST documented as of this encounter Care Teams Eyeletter Relationship Specialty Start Date End Date Manas Jenkins MD [address] [place] [address] PCP - General Family Medicine 05/02/22 documented as of this encounter
--- OUTSIDE RECORDS SUMMARY | 2025-09-26 16:19 | XMS_ITS | Clinical Summary ---
Author Organization [facility] Address [facility] [place] [address] Phone Care Team Providers Care Analytical Clerk Name Role Phone Manas Jenkisn Blaine Primary Care Provider Allergies No known [...] age to complete this topic Insurance [address] [place] [id number] [place] [address] [facility] [place] Care Teams Analytical Clerk Relationship Specialty Start Date End Date Manas Jenkins [address] [place] [address] PCP - General 08/28/10
--- OUTSIDE RECORDS SUMMARY | 2025-09-26 16:19 | XMS_ITS | Encounter Summary ---
[facility] Address [address] [place] [address] Care Team Providers Care English Language Learner Tutor Name Role Phone Manas Jenkins MD Primary Care Provider + Reason for Visit * Reason Onset Date Comments Med Refill 05/22/2022 New Med Request 05/22/2022 Encounter Details Date Type Department Care Team (Late st Contact Info) Description 05/22/2022 Refill [facility] [address] [place] [address] Manas Jenkins MD [address] [place] [address] Lumbar degenerative disc disease Social [...] Mallory Relationship: Self Best call back number: [phone] What medication are you requesting: What are your current symptoms: COUGHING AND CHEST COLD (CONGESTION) AND A SMALL WHEEZE How long have you been experiencing symptoms: 2 DAYS Have you had these symptoms before: [x] Yes [] No Have you been treated for these symptoms before: [x] Yes [] No If a prescription is needed, what is your preferred pharmacy and phone number: [facility] [place] [address] [facility] - [phone] [facility] [phone] FX Additional notes: PLEASE CALL TO ADVISE * Telephone Encounter - Joel Waldron RegSched Rep - 05/22/2022 1:34 PM EDT Caller: Laura Mallory Relationship: Self Best call back number: [phone] Requested Prescriptions: Requested Prescriptions Pending Prescriptions Disp Refills ??? oxyCODONE-acetaminophen (Percocet) 10-325 MG per tablet 90 tablet 0 Sig: Take 1 tablet by mouth Every 8 (Eight) Hours As Needed for Severe Pain . Pharmacy where request should be sent[facility] [address] [facility] - [phone] [facility] [phone] FX Additional details provided by patient: Does the patient have less than a 3 day supply: [x] Yes [] No documented in this encounter Plan of Treatment Upcoming Encounters Date Type Department Care Team (Late st Contact Info) Description 09/29/2025 11:15 AM EST Office Visit [facility] [address] [facility] [place] [address] Manas Jenkins MD [address] [place] [address] documented as of this encounter Visit Diagnoses Diagnosis Lumbar degenerative disc disease documented in this encounter Additional Health Concerns Assessment Noted Time PHQ-2 Depression Total Score: 6 05/02/20 22 12:07 PM EDT documented as of this encounter Care Teams English Language Learner Tutor Relationship Specialty Start Date End Date Manas Jenkins MD [address] [facility] [place] [place] [address] PCP - General Family Medicine 05/02/22 documented as of this encounter
--- OUTSIDE RECORDS SUMMARY | 2025-09-26 16:19 | XMS_ITS | Encounter Summary ---
Author Organization [facility] yste Address [address] [place] [address] Care Team Providers Care Firebrick Layer Helper Name Role Phone Manas Jenkins MD Primary Care Provider + Reason for Visit * Reason Comments Med Refill Encounter Details Date Type Department Care Team (Late Contact Info) Description 05/24/2022 Refill [facility] MED[facility] [address] [place] [address] Manas Jenkins MD [address] [place] [address] Lumbar degenerative disc disease Social [...] Description 09/29/2025 11:15 AM EST Office Visit [facility] [address] [place] [address] Manas Jenkins MD [address] [place] [address] documented as of this encounter Visit Diagnoses Diagnosis Lumbar degenerative disc disease documented in this encounter Additional Health Concerns Assessment Noted Time PHQ-2 Depression Total Score: 6 05/02/20 22 12:07 PM EDT documented as of this encounter Care Teams Firebrick Layer Helper Relationship Specialty Start Date End Date Manas Jenkins MD [address] [facility] [place] [address] PCP - General Family Medicine 05/02/22 documented as of this encounter
--- OUTSIDE RECORDS SUMMARY | 2025-09-26 16:19 | XMS_ITS | Encounter Summary ---
[facility] [address] [place] [address] Care Team Providers Care Client Insights Consultant Name Role Phone Manas Jenkins MD Primary Care Provider + Reason for Visit * Reason Onset Date Comments New Med Request 07/28/2025 Encounter Details Date Type Department Care Team (Late st Contact Info) Description 07/28/2025 Telephone [facility]INE [address] [place] [address] Manas Jenkins MD [address] [place] [address] New Med Request 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 [...] Laura Mallory Relationship: Self Best Callback Number: [phone] [facility] PROVIDED THE RELAY MESSAGE FROM THE OFFICE [...] Relationship: Emergency Contact Best call back number: [phone] What medication are you requesting: What are [...] is your preferred pharmacy and phone number: [facility] - [place], [place] - [address] [facility] - [phone] [facility] [phone] Additional notes: PATIENT HAD AN APPOINTMENT TODAY, [...] [facility] [address] [place] [id number] Manas Jenkins MD [address] [place] [address] documented as of this encounter Visit Diagnoses Not on filedocumented in this encounter Additional Health Concerns Assessment Noted Time PHQ-2 Depression Total Score: 1 11/27/19 24 1:57 PM EST documented as of this encounter Care Teams Client Insights Consultant Relationship Specialty Start Date End Date Manas Jenkins MD [address] [place] [address] PCP - General Family Medicine 05/02/22 documented as of this encounter
--- OUTSIDE RECORDS SUMMARY | 2025-09-26 16:19 | XMS_ITS | Encounter Summary ---
Author Organization [facility] yste Address [address] [place] [address] Care Team Providers Care Facilities Flight Check Pilot Name Role Phone Mnaas Jenkins MD Primary Care Provider + Reason for Visit * Reason Comments Med Refill Encounter Details Date Type Department Care Team (Late Contact Info) Description 08/19/[address] [facility] MED[facility] [address] [place] [address] Manas Jenkins MD [address] [place] [address] Lumbar degenerative disc disease Social [...] Description 09/29/2025 11:15 AM EST Office Visit [facility] [address] [place] [address] Manas Jenkins MD [address] [place] [address] documented as of this encounter Visit Diagnoses Diagnosis Lumbar degenerative disc disease documented in this encounter Additional Health Concerns Assessment Noted Time PHQ-2 Depression Total Score: 6 05/02/20 22 12:07 PM EDT documented as of this encounter Care Teams Facilities Flight Check Pilot Relationship Specialty Start Date End Date Manas Jenkins MD [address] [facility] [place] [place] [address] PCP - General Family Medicine 05/02/22 documented as of this encounter
--- OUTSIDE RECORDS SUMMARY | 2025-09-26 16:19 | XMS_ITS | Encounter Summary ---
[facility] [address] [place] [address] Care Team Providers Care Gear Machinist Name Role Phone Manas Jenkins MD Primary Care Provider + Reason for Visit * Reason Comments Med Refill Encounter Details Date Type Department Care Team (Late Contact Info) Description 09/08/2025 Refill [facility] MEDICINE [address] [place] [address] Manas Jenkins MD [address] [place] [address] Primary osteoarthritis of right knee; [...] EST Office Visit [facility] MED[facility]INE [address] [place] [address] Manas Jenkins MD [address] [facility] [place] [address] documented as of this encounter Visit Diagnoses Diagnosis Primary osteoarthritis of right knee Chronic right-sided low back pain with right-sided sciatica documented in this encounter Additional Health Concerns Assessment Noted Time PHQ-2 Depression Total Score: 1 11/27/19 24 1:57 PM EST documented as of this encounter Care Teams Gear Machinist Relationship Specialty Start Date End Date Manas Jenkins MD [address] [place] [address] PCP - General Family Medicine 05/02/22 documented as of this encounter
--- OUTSIDE RECORDS SUMMARY | 2025-09-26 16:19 | XMS_ITS | Encounter Summary ---
[facility] [address] [place] [address] Care Team Providers Care Administrative Assistant Front Desk Name Role Phone Manas Jenkins MD Primary Care Provider + Reason for Visit * Reason Comments Med Refill Encounter Details Date Type Department Care Team (Late Contact Info) Description 08/07/2025 Refill [facility] MED[facility] [address] [place] [address] Manas Jenkins MD [address] [place] [address] Chronic right-sided low back pain with right-sided sciatica; Primary osteoarthritis of right knee; Chronic right-sided low back pain with right-sided sciatica 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 Tobacco Use Types Packs/Day Years Used Date Smoking Tobacco: Former Cigarettes 0.5 15 1 0 - 2005 Passive Smoke Exposure: Past Smokeless [...] EST Office Visit [facility] [address] [place] [address] Manas Jenkins MD [address] [place] [address] documented as of this encounter Visit Diagnoses Diagnosis Chronic right-sided low back pain with right-sided sciatica Primary osteoarthritis of right knee documented in this encounter Additional Health Concerns Assessment Noted Time PHQ-2 Depression Total Score: 1 11/27/19 24 1:57 PM EST documented as of this encounter Care Teams Administrative Assistant Front Desk Relationship Specialty Start Date End Date Manas Jenkins MD [address] [place] [address] PCP - General Family Medicine 05/02/22 documented as of this encounter
--- OUTSIDE RECORDS SUMMARY | 2025-09-26 16:19 | XMS_ITS | Encounter Summary ---
[facility] [address] [place] [address] Care Team Providers Care Erisa Attorney Name Role Phone Manas Jenkins MD Primary Care Provider + Reason for Visit * Reason Onset Date Comments New Med Request 08/09/2025 Encounter Details Date Type Department Care Team (Late st Contact Info) Description 08/09/2025 Telephone [facility] [address] [place] [address] Manas Jenkins MD [address] [place] [address] New Med Request 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 [...] Mallory Relationship: Self Best call back number: [phone] What was the call regarding: PATIENT IS CALLING AND WOULD LIKE TO CHECK ON THE STATUS OF THIS. * Telephone Encounter - Zenobia Matthews RegSched Rep - 08/09/2025 3:22 PM EDT Caller: Adal Mallory Relationship: Emergency Contact Best call back number: [phone] What medication are you requesting: COUGH MEDICATION What are your current symptoms: CHEST CONGESTION, COUGH Have you had these symptoms before: [x] Yes [] No Have you been treated for these symptoms before: [x] Yes [] No If a prescription is needed, what is your preferred pharmacy and phone number: [facility] [place] - [address] [facility] - [phone] [facility] [phone] Additional notes:PATIENT WAS INSTRUCTED TO TAKE A DAYQUIL AND NIGHTQUIL COMBO BUT THAT IS NOT WORKING, REQUESTING TO GET SOMETHING CALLED IN documented in this encounter Plan of Treatment Upcoming Encounters Date Type Department Care Team (Late st Contact Info) Description 09/29/2025 11:15 AM EST Office Visit [facility] [address] [place] [phone] Manas Jenkins MD [address] [place] [address] documented as of this encounter Visit Diagnoses Not on filedocumented in this encounter Additional Health Concerns Assessment Noted Time PHQ-2 Depression Total Score: 1 11/27/19 24 1:57 PM EST documented as of this encounter Care Teams Erisa Attorney Relationship Specialty Start Date End Date Manas Jenkins MD [address] [address] PCP - General Family Medicine 05/02/22 documented as of this encounter
--- OUTSIDE RECORDS SUMMARY | 2025-09-26 16:19 | XMS_ITS | Encounter Summary ---
[facility] [address] [place] [address] Care Team Providers Care Disposal Operator Name Role Phone Manas Jenkins MD Primary Care Provider + Reason for Visit * Reason Comments Med Refill Encounter Details Date Type Department Care Team (Late st Contact Info) Description 09/06/2025 Refill [facility] MED[facility]INE [address] [place] [address] Manas Jenkins MD [address] [place] [address] Chronic right-sided low back pain [...] Description 09/29/2025 11:15 AM EST Office Visit [facility] [address] [place] [address] Manas Jenkins MD [address] [place], [place] [id number] documented as of this encounter Visit Diagnoses Diagnosis Chronic right-sided low back pain with right-sided sciatica documented in this encounter Additional Health Concerns Assessment Noted Time PHQ-2 Depression Total Score: 1 11/27/19 24 1:57 PM EST documented as of this encounter Care Teams Disposal Operator Relationship Specialty Start Date End Date Manas Jenkins MD [address] [place] [address] PCP - General Family Medicine 05/02/22 documented as of this encounter
--- OUTSIDE RECORDS SUMMARY | 2025-09-26 16:19 | XMS_ITS | Encounter Summary ---
[facility] [address] [place] [address] Care Team Providers Care Basting Cleaner Name Role Phone Manas Jenkins MD Primary Care Provider + Reason for Visit * Reason Onset Date Comments Med Refill 08/15/2025 Encounter Details Date Type Department Care Team (Late st Contact Info) Description 08/15/2025 Refill [facility]INE [address] [place] [address] Manas Jenkins MD [address] [place] [address] 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 Tobacco Use Types [...] Mallory Relationship: Self Best call back number: [phone] Requested Prescriptions: Requested Prescriptions Pending Prescriptions Disp Refills hydrOXYzine (ATARAX) 25 MG tablet 60 tablet 2 Pharmacy where request should be sent: [facility] [place] [address] [phone] [facility] [phone] FX Last office visit with prescribing clinician: [...] Description 09/29/2025 11:15 AM EST Office Visit [facility] [address] [place] [phone] Manas Jenkins MD [address] [place] [address] documented as of this encounter Visit Diagnoses Not on filedocumented in this encounter Additional Health Concerns Assessment Noted Time PHQ-2 Depression Total Score: 1 11/27/19 24 1:57 PM EST documented as of this encounter Care Teams Basting Cleaner Relationship Specialty Start Date End Date Manas Jenkins MD [address] [place] [address] PCP - General Family Medicine 05/02/22 documented as of this encounter
[2025-09-26 16:46] LABS: Hematocrit 24.4 % (37.0-47.0); Hemoglobin 7.8 g/dL (12.2-16.2); Immature Granulocytes % 3.7 %; Mean Corpuscular HGB Conc 32.0 g/dL (31.8-35.4); Mean Corpuscular Hemoglobin 29.7 pg (27.0-31.2); Mean Corpuscular Volume 92.8 fl (81-99); Nucleated Red Blood Cells % 0.7 %; Platelet Count 371 K/mm3 (142-424); Red Blood Count 2.63 M/mm3 (4.20-5.40); Red Cell Distribution Width-SD 63.3 fL; White Blood Count 7.4 K/mm3 (4.8-10.8)
[2025-09-26 16:55] LABS: Alanine Aminotransferase 21 U/L (12-78); Albumin Level 2.8 g/dl (3.5-5.0); Albumin/Globulin Ratio 0.8 (1.1-1.8); Alkaline Phosphatase 288 U/L (38-126); Anion Gap 7.6 mEq/L (5-15); Aspartate Amino Transferase 29 U/L (14-36); Bilirubin,Total 0.6 mg/dl (0.2-1.3); Blood Urea Nitrogen 5 mg/dl (7-17); Calcium 7.9 mg/dl (8.4-10.2); Carbon Dioxide 24 mmol/L (22.0-30.0); Chloride 106 mmol/L (98-107); Creatinine,Serum 0.60 mg/dl (0.52-1.04); Estimated Glomerular Filt Rate 100 ml/min (>60); GFR (African American) 121 ML/MIN (>60); Globulin 3.7 g/dL (1.3-3.2); Glucose 99 mg/dl (74-100); Phosphorous 3.3 mg/dl (2.5-4.5); Potassium 3.6 mmoL/L (3.5-5.1); Sodium 134 mmol/L (136-145); Total Protein,Serum 6.5 g/dl (6.3-8.2)
== END 2025-09-26 23:59 | disposition home or self-care (01) ==
LOC: LAB 16:16
PROVIDERS: PCP Family Medicine; Visit Provider Family Medicine
DX: A41.51 Sepsis due to Escherichia coli [E. coli] (principal)
CPT/HCPCS: 80053; 80069; 85025; 85651

== ENCOUNTER 2025-10-10 13:58 | Emergency (ER) | payer MEDICARE, OTHER, SELFPAY ==
[2025-10-10] VITALS (7 sets, daily range): BP systolic 109–139; BP diastolic 57–81; PULSE 85–103; RESP 15–18; TEMP 36.4; O2SAT 93–96; BMI 36.8
--- NOTE | 2025-10-10 14:00 | ED_ITS ---
<Statement entered by Jaz Meeks MD - 10/10/25 16:13> I was consulted by the DION, and we discussed the complexity of the problems being addressed. I approved the treatment and management plan for this patient's care in the emergency department, thus performing a substantive portion of the medical decision making. Jaz Meeks MD, NICKY, FACEP Discharge Plan Disposition Patient Disposition: Home, Self-Care Condition: Good Prescriptions Prescriptions: No Action celecoxib [Celebrex] 100 mg capsule 100 mg PO BID Qty: 60 2RF carvedilol 3.125 mg tablet 3.125 mg PO BID 30 Days Qty: 60 5RF Trelegy Ellipta 100-62.5-25 mcg blister with device 1 inh inhalation DAILY 90 Days Qty: 90 3RF topiramate 100 mg tablet See Rx Instructions PO .COMPLEX Qty: 75 4RF Rx Instructions: 100 mg (1 tablet) orally morning; 150 mg (1.5 tablet) night sacubitril-valsartan [Entresto] 24-26 mg tablet See Rx Instructions .ROUTE .COMPLEX Qty: 180 3RF Dose Instruction: TAKE ONE (1) TABLET BY MOUTH TWICE DAILY Rx Instructions: TAKE ONE (1) TABLET BY MOUTH TWICE DAILY famotidine 20 mg tablet 20 mg PO DAILY Qty: 30 5RF omeprazole 20 mg capsule,delayed release(DR/EC) See Rx Instructions .ROUTE .COMPLEX Qty: 90 3RF Dose Instruction: TAKE ONE (1) CAPSULE BY MOUTH ONCE DAILY Rx Instructions: TAKE ONE (1) CAPSULE BY MOUTH ONCE DAILY aspirin 81 mg Capsule 81 mg PO DAILY atorvastatin 40 mg tablet 40 mg PO HS hydroxyzine HCl 25 mg tablet 25 mg PO BID gabapentin 100 mg capsule 100 mg PO TID duloxetine 60 mg capsule,delayed release(DR/EC) 60 mg PO DAILY cholecalciferol (vitamin D3) 50 mcg (2,000 unit) capsule 50 mcg PO DAILY bisacodyl [Dulcolax (bisacodyl)] 10 mg suppository 10 mg [place] DAILY 2 Days Qty: 12 0RF magnesium citrate Solution 296 ml PO ONCE PRN (Reason: constipation) Qty: 296 0RF nitrofurantoin monohyd/m-cryst 100 mg capsule 100 mg PO BID 5 Days Qty: 10 0RF Rx Instructions: must administer with a meal/food Linzess 72 mcg capsule 72 mcg PO DAILY Trelegy Ellipta 100-62.5-25 mcg blister with device 1 ea INHALATION DAILY furosemide 40 mg tablet 40 mg PO BIDL Patient Comments: TAKE 1 TABLET BY MOUTH EACH MORNING TAKE 1 TABLET BY MOUTH AT 3PM tramadol 50 mg tablet 50 mg PO TIDP PRN (Reason: Moderate Pain (Scale Score 5-6)) Referrals Follow up/Referrals: Manas Jenkins MD [Primary Care Provider, Medical] - See instructions Activity Restrictions/Add. Instructions Additional Instructions/Restrictions: Please return to the emergency department with any worsening signs or symptoms. Please keep your follow-up with [facility] and your other providers in the upcoming days/weeks. Please continue to take all your medication as prescribed. Please continue with home health visits. Clinical Impressions Clinical Impression: Nausea vomiting and diarrhea, Hypokalemia, Hypomagnesemia, Brain lipoma Instructions Patient Instructions: DI for Nausea in Adults, DI for Vomiting in Adults Print Language Print Language: Czech Discharge ED Provider: Jaz Meeks General Adult HPI General Chief complaint: Nausea/Vomiting/Diarrhea Stated complaint: v/d low bp Time Seen by Provider: 10/10/25 14:00 Mode of Arrival: EMS Source of Information: Patient, Spouse and Medical Record Limitations: No Limitations History of Present Illness HPI narrative: 65-year-old female presents emergency department from home via EMS at the request of home health nurse/provider, apparently patient was receiving her home health care she has PICC line insertion in the right UE, has had this for the last 3 weeks, she was recently discharged [facility] from what her describes as an infection in her blood , she has been receiving IV antibiotics with a PICC line, with home health/nursing visits, home health noticed the patient's blood pressure was low , today thus prompted emergency department. Patient the bedside admits to subjective chills denies any fever, admits to generalized weakness and fatigue that has been ongoing for quite some time, denies any chest pain shortness of breath cough congestion sore throat, does admit of nausea and vomiting which has been going on since May , as well as some diarrhea that has been going on for quite some time, patient denies any urinary type symptomatology, denies any vaginal type symptomatology, denies any overt abdominal pain, patient is a former smoker denies any alcohol or drug use, other past medical history is consistent with COPD, prior TIA/CVA, morbid obesity, CAD, CHF, COPD, degenerative disc disease of the spine, APARNA, hypertension, hyperlipidemia, osteoarthritis. Initial triage vitals noted for tachycardia otherwise unremarkable. Unsure of which IV antibiotics the patient is receiving as an outpatient. Please note that above description of symptoms, in this electronic medical record under categorization of recalled from ER triage doctor by RN are reflective of an initial nursing assessment, however, is not reflective of my full history and physical exam that was personally taken and clarified. Consequentially, this preceding description of symptoms, which may include the patient's categorized chief complaint in the EMR, do not reflect my personal clinical impression, and the ultimate description of history of present illness and patient stated complaints should be deferred to this section of the note. Unless stated otherwise or congruent with this section of the note, additional signs, symptoms, or incongruence should be interpreted as inaccurate with my clinical impression. Onset (ago): hour(s) Related Data Home Medications ?Medication ?Instructions ?Recorded ?Confirmed atorvastatin 40 mg tablet 40 mg PO HS 11/22/24 5 cholecalciferol (vitamin D3) 50 50 mcg PO DAILY 09/12/25 mcg (2,000 unit) capsule duloxetine 60 mg capsule,delayed 60 mg PO DAILY 09/12/25 release gabapentin 100 mg capsule 100 mg PO TID 11/22/2409/12 hydroxyzine HCl 25 mg tablet 25 mg PO BID 11/22/24 aspirin 81 mg capsule 81 mg PO DAILY 12/29/2408/25 fluticasone fur. 100 mcg-umeclid 1 ea inhalation DAILY 07/06/25 09/12/25 62.5 mcg-vilant 25 mcg inhalat.powder (Trelegy Ellipta) linaclotide 72 mcg capsule 72 mcg PO DAILY 07/06/25 (Linzess) furosemide 40 mg tablet 40 mg PO BIDL 07/07/2509/12 tramadol 50 mg tablet 50 mg PO TIDP PRN Moderate P ain 07/07/25 09/12/25 (Scale Score 5-6) Previous Rx's ?Medication ?Instructions ?Recorded carvedilol 3.125 mg tablet 3.125 mg PO BID 30 days #60 tabs 06/20/25 fluticasone fur. 100 mcg-umeclid 1 inh inhalation RICK Y 90 days #90 07/21/25 62.5 mcg-vilant 25 mcg ea inhalat.powder (Trelegy Ellipta) celecoxib 100 mg capsule (Celebrex) 100 mg PO BID #60 caps 08/18/25 topiramate 100 mg tablet See Rx Instructions PO .COMP ANGEL 08/18/25 #75 tabs bisacodyl 10 mg rectal suppository 10 mg [place] DAILY 2 da ys #12 ea 09/12/25 (Dulcolax (bisacodyl)) magnesium citrate 296 ml PO ONCE PRN constipat ion 09/12/25 #296 mL nitrofurantoin 100 mg PO BID 5 days #10 cap s 09/12/25 monohydrate/macrocrystals 100 mg capsule famotidine 20 mg tablet 20 mg PO DAILY #30 tabs 11/0 02/15 sacubitril 24 mg-valsartan 26 mg See Rx Instructions . Route 09/26/25 tablet (Entresto) .COMPLEX #180 tabs omeprazole 20 mg capsule,delayed See Rx Instructions . Route 09/30/25 release .COMPLEX #90 caps Allergies Allergy/AdvReac Type Severity Reaction Status Date / Time sumatriptan Allergy Severe Difficulty Verified 08/18/25 13:40 Breathing fexofenadine (FEXOFENADINE) Allergy Intermediate SICK Verified 08/18/25 13:40 amoxicillin (From AUGMENTIN) Allergy Unknown SOA Verified 08/18/25 13:40 clavulanic acid (From Allergy Unknown SOA Verified 08/18/25 13:40 AUGMENTIN) naproxen (NAPROXEN) Allergy Unknown SWELLING Verified 08/18/25 13:40 [facility] Disclaimer: The information contained in this section may have been updated after the patient was seen, as this information can be updated by other users. Medical History Hypomagnesemia Lactic acidosis Elevated d-dimer Dehydration Thrombocytosis Acute kidney injury superimposed on chronic kidney disease FER (acute kidney injury) Acute lactic acidosis Sepsis Abdominal pain Acute pain of left hip Ascending cholangitis Septic shock Bleeding internal hemorrhoids Hematuria Diverticulitis Bilateral hip pain Yeast vaginitis Atrophic vaginitis UTI (urinary tract infection) Hematuria Rectal discomfort Abdominal pain, lower Diarrhea Otitis externa UTI (urinary tract infection) Bronchitis Screening for malignant neoplasm of colon Nausea Upper abdominal pain Drug induced constipation Chronic constipation Bloating Urinary tract infectious disease Acute UTI Lower back pain Severe obesity with body mass index (BMI) of 36.0 to 36.9 with serious comorbidity Fall Dyspnea Skin tear of left upper extremity Fall Ileitis Accidental opiate poisoning Constipation Episodic migraine History of episodic migraine and good response to topiramate but still with an average of 2 headaches a week. Triptans are contraindicated. She was advised to increase topiramate to 100 mg in the morning and 150 mg at night. Acute herpes zoster neuropathy Sciatica Chest pain Anxiety state Anxiety and depression Arthritis Urinary tract infection History of COVID-19 Migraine History of stroke History of gastroesophageal reflux (GERD) History of anemia Insomnia COPD mixed type Oral dyskinesia Most likely secondary to prochlorperazine already discontinued by PCP Lung nodule Dyspnea on exertion Encounter for screening for malignant neoplasm of lung History of asthma Stopped smoking with greater than 30 pack year history Edema of both lower extremities Takotsubo cardiomyopathy Mediastinal lymphadenopathy Hilar lymphadenopathy Asthma exacerbation APARNA (obstructive sleep apnea) Noncompliant with CPAP treatment. Brain TIA Asthma Hyperglycemia A1c hemoglobin pending, follow-up with PCP for results. Tremor 09/08/2024: Initial good response to topiramate but worsening of tremor since last visit. Indications, possible side effects were reviewed once again with the patient and her including but not limited to nephrolithiasis, paresthesias, word finding difficulty, neuro glaucoma). APARNA (obstructive sleep apnea) Osteoarthritis She was wheelchair-bound at last appointment and currently ambulatory with a walker Hypertensive disorder Hyperlipidemia Gastroesophageal reflux disease Surgical History H/O elbow surgery LEFT History of carpal tunnel surgery of right wrist History of carpal tunnel surgery of left wrist H/O: History of arthroplasty of left shoulder H/O: hysterectomy History of cholecystectomy Family History Other Cancer 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 Smoking Status: Former smoker tobacco type: cigarettes second hand exposure: Yes alcohol intake: former substance use type: denies use current occupational status: disabled Travel in the last 8 weeks?: None household members: spouse housing: other marital status: current occupational exposures/hazards: No caffeine: Yes Have you lived/traveled outside [place] in past 30 days?: No Contact w/someone who lives/traveled outside US past 30 days?: No Exposure to someone with infectious disease in past 14 days?: No Do you have a fever (greater than 100.4 F or 38 C)?: No Have you tested positive for COVID-19?: No Exposed to someone with COVID-19 in past 14 days?: No Do you have a sore throat?: No Do you have a cough?: No Do you have any weakness?: No Do you have any diarrhea?: No Are you experiencing any unusual bleeding?: No Do you have any muscle aches/pain?: No Do you have any abdominal pain?: No Are you experiencing loss of taste or smell?: No Other Medical History Have you received the Flu Vaccine for this season: No Have you received the Pneumonia Vaccine: No ROS Obtained: Yes All systems reviewed & no additional complaints except as documented Physical Exam General General appearance: alert, in no apparent distress and obese Head Head exam: atraumatic and normocephalic Eye Eye exam: Present PERRL and EOMI ENT ENT exam: Present mucous membranes moist Neck Neck exam: Present normal inspection Chest Chest inspection: Present normal inspection and symmetric chest wall rise Respiratory Respiratory exam: Present normal lung sounds bilaterally; Absent respiratory distress Cardiovascular Cardiovascular exam: Present normal rhythm; Absent regular rate or tachycardia Abdominal Exam Abdominal exam: Present soft; Absent tenderness, guarding, rebound or rigidity Extremities Exam Extremities exam: Present normal inspection Neurological Exam Neurological exam: Present alert and oriented X3 Psychiatric Psychiatric exam: Present normal affect Skin Skin exam: Present warm and dry Medical Decision Making Medical Records Medical records reviewed: Yes I reviewed the patient's medical records. Screening: Per USPSTF and CDC recommendations, given the prevalence of disease in our region, it is our hospital?s policy to screen for HIV and viral Hepatitis for all patients aged 18 and over and those with ongoing risk factors. Adonay Inquiry Pt receiving controlled substance: No Vital Signs: 10/10/25 13:55 10/10/25 14:01 10/10/25 14:30 Temperature 97.6 F Temperature Source Oral Pulse Rate 96 H 96 H Pulse Rate [Right] 103 H Respiratory Rate 18 18 18 Blood Pressure 125/64 124/69 Blood Pressure [Right Arm] 139/77 Blood Pressure Mean 84 79 Blood Pressure Mean [Right Arm] 97 Blood Pressure Source [Right Arm] Automatic Cuff Blood Pressure Position [Right Arm] Sitting 02 Sat by Pulse Oximetry 95 96 96 Oxygen Delivery Method Room Air 10/10/25 15:00 Temperature Temperature Source Pulse Rate 85 Pulse Rate [Right] Respiratory Rate 15 Blood Pressure 130/77 Blood Pressure [Right Arm] Blood Pressure Mean 90 Blood Pressure Mean [Right Arm] Blood Pressure Source [Right Arm] Blood Pressure Position [Right Arm] 02 Sat by Pulse Oximetry 93 L Oxygen Delivery Method Lab Data Lab results reviewed: Yes I reviewed the patient's lab results. Lab Results 10/10/25 14:00: WBC 6.7, RBC 3.51 L, Hgb 10.3 L, Hct 31.5 L, MCV 89.7, MCH 29.3, MCHC 32.7, RDW 19.4 H, Plt Count 373, MPV 9.6, Neut % (Auto) 69.3, Lymph % (Auto) 19.9, [place] % (Auto) 7.9, Eos % (Auto) 0.6, Baso % (Auto) 1.3, Neut # (Auto) 4.6, Lymph # (Auto) 1.3, [place] # (Auto) 0.5, Eos # (Auto) 0.0, Baso # (Auto) 0.1, PT 12.0, INR 1.09, Sodium 134 L, Potassium 3.1 L, Chloride 99, Carbon Dioxide 23, Anion Gap 15.1 H, BUN 8, Creatinine 0.90, Estimated Creat Clear 85, Estimated GFR 63, Est GFR ( Amer) 76, Glucose 102 H, Lactate 1.8, Calcium 8.2 L, Magnesium 1.4 L, Total Bilirubin 0.8, AST 50 H, ALT 26, A lkaline Phosphatase 459 H, Troponin I < 0.01, NT-Pro-B Natriuret Pep 226 H, Total Protein 7.4, Albumin 3.6, Globulin 3.8 H, Albumin/Globulin Ratio 0.9 L, Lipase 134, Plasma/Serum Alcohol < 10 10/10/25 14:00 10/10/25 14:00 Orders (Tests/Meds): ED MEDICATIONS Generic Name Dose Route Start Last Admin Trade Name Freq PRN Reason Stop Dose Admin Sodium Chloride 10 ml 10/10/25 14:53 10/10/25 14:53 Sodium Chloride 0.9% 10ml Syr (Rad Only) IV 11/09/25 14:52 10 ml NEEDED PRN Administration Maintain IV Site Discontinued Medications Generic Name Dose Route Start Last Admin Trade Name Freq PRN Reason Stop Dose Admin Sodium Chloride 1,000 mls @ 999 mls/hr 10/10/25 14:06 10/10/25 15:06 Sod Chlor 0.9% 1000ml Bag IV 10/10/25 15:06 999 mls/hr .Q1H1M ONE Administration Magnesium Sulfate 2 gm in 50 mls @ 50 mls/hr 10/10/25 14:48 10/10/25 15:09 Magnesium Sulfate 2gm/50ml Premix IV 10/10/25 15:47 50 mls/hr ONCE ONE Administration Iopamidol 75 ml 10/10/25 14:53 10/10/25 14:53 Iopamidol-370 (76%);100ml Bottle IV 10/10/25 14:54 75 ml ONCE ONE Administration Ondansetron HCl 4 mg 10/10/25 14:08 10/10/25 15:09 Ondansetron 4mg/2ml Vial IV 10/10/25 14:09 4 mg ONCE ONE Administration Potassium Chloride 60 meq 10/10/25 14:47 10/10/25 15:12 Potassium Chloride 20meq Tab PO 10/10/25 14:48 60 meq ONCE ONE Administration ORDERS Category Date Time Status CT abdomen pelvis w con Stat Cat Scan 10/10/25 14:[address] head/brain wo con Stat Cat Scan 10/10/25 14:05 Completed XR chest portable Stat Exams 10/10/25 14:06 Completed Complete Blood Count Auto Diff Stat Lab 10/10/25 14:00 Completed Comprehensive Metabolic Panel Stat Lab 10/10/25 14:00 Completed Drug Screen,Urine Stat Lab 10/10/25 14:06 Ordered Ethanol [Ethyl Alcohol] Stat Lab 10/10/25 14:00 Completed Lactic Acid Stat Lab 10/10/25 14:00 Completed Lipase Stat Lab 10/10/25 14:00 Completed Magnesium Stat Lab 10/10/25 14:00 Completed NT Pro Brain Natriuretic Pep. Stat Lab 10/10/25 14:00 Completed PT INR [Prothrombin Time INR] Stat Lab 10/10/25 14:00 Completed Rapid PCR Covid and Flu A/B Stat Lab 10/10/25 14:05 Received Troponin I Q3H Lab 10/10/25 17:15 Ordered Troponin I Q3H Lab 10/10/25 20:15 Ordered Troponin I Stat Lab 10/10/25 14:00 Completed Urinalysis and Microscopic Stat Lab 10/10/25 14:06 Ordered Blood Culture Stat Micro 10/10/25 15:53 Received Medical Decision Narrative: 65-year-old female presents the emergency department for concern with low blood pressure vomiting diarrhea and generalized weakness for quite some time differential diagnose include but not limited to, hypovolemia, colitis, ileitis, diverticulitis, acute kidney injury, failure to thrive, pancreatitis, pneumonia, bowel obstruction, cardiac arrhythmia, electrolyte disturbance, acute UTI among others. I discussed this patient's case with the attending physician Dr. Meeks Will obtain basic laboratory studies, EKG, chest x-ray, CT head and pelvis with contrast, CT head without contrast, ethyl alcohol level, UDS, lactic acid lipase magnesium level proBNP, coags, troponin, UA, as well as blood cultures, will give 4 mg of Zofran for nausea, will obtain rapid PCR COVID and flu CBC is notable for hemoglobin of 10.3, hematocrit 31.5 otherwise unremarkable Coags within normal limits CMP is noted for mild hypokalemia 3.1, mild hyponatremia at 134, will replace the patient's hypokalemia with 60 mill P.o. potassium, minimal hypocalcemia at 8.2, minimal hypomagnesia at 1.4, thus will replace with 2 g of IV magnesium, AST is mildly evaded at 50, ALP is mildly elevated at 459, which transaminitis is somewhat improved outside of the patient's previous. Lipase within normal limits. Ethyl alcohol within normal limit Troponin is less than 0.01, proBNP is mildly evaded at 226 otherwise unremarkable CMP I reviewed the patient's chest x-ray along the corresponding radiologic report, no acute cardiopulmonary process. Reviewed the patient's CT head without contrast along the corresponding radiologic report, large colossal lipoma recommend MRI for further evaluation. I reviewed the patient's CT and pelvis with contrast along the corresponding radiologic report no acute intra-abdominal process. I discussed the results with the patient. The bedside approximately 4:05 PM, they are unaware of the incidental finding of lipoma on CT head, recommend follow-up with MRI with this patient patient voiced understanding and agreement with the current discharge plan/treatment plan will forego urinalysis, as patient is currently on IV antibiotics through PICC line, has slated follow-up with [facility] in the upcoming days/weeks, has no other red flag signs or symptoms, no episodes of hypotension or altered mental status or signs of septic shock here in the emergency department. Patient family were given strict ED return precautions. Patient and family voiced understanding and agreed with the current treatment plan/discharge plan. Critical Care Critical Care Time Critical Care Time: No
--- NOTE | 2025-10-10 14:05 | CT_ITS ---
FINAL REPORT TECHNIQUE: After the administration of intravenous contrast, axial images were obtained through the abdomen and pelvis by computed tomography. This study was performed with technique to keep radiation doses as low as reasonably achievable, (ALARA). Individualized dose reduction techniques using automated exposure control or adjustment of the MA and/or KV according to the patient's size were employed. CLINICAL HISTORY: N/V/D COMPARISON: 09/12/2025 FINDINGS: Abdomen: Scarring is seen at the lung bases. Gallbladder is surgically absent. The liver is normal in size and attenuation. There are calcified granulomas in the spleen. Otherwise, the spleen is unremarkable. The adrenals are normal. The pancreas is unremarkable. The kidneys enhance appropriately. The aorta is normal in caliber. There is no free fluid or adenopathy. Pelvis: The appendix is not identified. There are no secondary findings of appendicitis. The urinary bladder is incompletely distended. There is no free fluid or adenopathy. IMPRESSION: No acute intra-abdominal process. Reviewed, Interpreted and Dictated by Pérez Bui MD Transcribed by Dulce Valles Authenticated and . [facility]
--- NOTE | 2025-10-10 14:05 | CT_ITS ---
FINAL REPORT TECHNIQUE: Axial CT images were performed through the head. Coronal reformatted images were submitted. This study was performed with techniques to keep radiation doses as low as reasonably achievable (ALARA). Individualized dose reduction techniques using automated exposure control or adjustment of mA and/or kV according to the patient's size were employed. CLINICAL HISTORY: Fatigue FINDINGS: The ventricles are normal in size. There is a large callosal lipoma. There is no evidence of hemorrhage. There is no mass or edema identified. There is no abnormal extra-axial fluid seen. The sinuses are well aerated. IMPRESSION: Large callosal lipoma. Recommend MRI for further evaluation. Reviewed, Interpreted and Dictated by Pérez Bui MD Transcribed by Dulce Valles Authenticated and [facility]
--- NOTE | 2025-10-10 14:06 | XR_ITS ---
FINAL REPORT TECHNIQUE: Single view chest CLINICAL HISTORY: SOA COMPARISON: 09/14/2025 FINDINGS: A single lordotic view of the chest was obtained. There is a right PICC with the tip at the junction of the SVC and right atrium. The heart and mediastinum are within normal limits. The lungs are underinflated but clear. There is no pneumothorax. IMPRESSION: No acute cardiopulmonary process. Reviewed, Interpreted and Dictated by Pérez Bui MD Transcribed by Dulce Valles Authenticated and [facility]
[2025-10-10 14:12] LABS: Hematocrit 31.5 % (37.0-47.0); Hemoglobin 10.3 g/dL (12.2-16.2); Immature Granulocytes % 1.0 %; Mean Corpuscular HGB Conc 32.7 g/dL (31.8-35.4); Mean Corpuscular Hemoglobin 29.3 pg (27.0-31.2); Mean Corpuscular Volume 89.7 fl (81-99); Nucleated Red Blood Cells % 0.6 %; Platelet Count 373 K/mm3 (142-424); Red Blood Count 3.51 M/mm3 (4.20-5.40); Red Cell Distribution Width-SD 62.9 fL; White Blood Count 6.7 K/mm3 (4.8-10.8)
--- NOTE | 2025-10-10 14:13 | PC.NURSE ---
1405- One set of blood cultures obtained from R PICC line per provider request.
[2025-10-10 14:24] LABS: Albumin Level 3.6 g/dl (3.5-5.0); Chloride 99 mmol/L (98-107)
[2025-10-10 14:25] LABS: Potassium 3.1 mmoL/L (3.5-5.1); Sodium 134 mmol/L (136-145)
--- NOTE | 2025-10-10 14:25 | ECG_ITS ---
APPROVED REPORT Exam: Resting ECG HR:96 bpm ECG Measurements Heart Rate 96 AXES ID 167 P 39 QRSd 114 QRS -56 QT 361 T 87 QTc 415 Conclusion SINUS RHYTHM WITH OCCASIONAL VENTRICULAR PREMATURE COMPLEXES LEFT ANTERIOR FASCICULAR BLOCK [QRS AXIS <= -45, QR IN I, RS IN II] POSSIBLE LATERAL MYOCARDIAL INFARCTION , OF INDETERMINATE AGE [30 ms Q WAVE IN I/aVL/V5/V6] ABNORMAL ECG UNCONFIRMED REPORT Electronically signed by : Duy Meeks, 10/11/2025 15:00:57
[2025-10-10 14:27] LABS: Alanine Aminotransferase 26 U/L (12-78); Anion Gap 15.1 mEq/L (5-15); Aspartate Amino Transferase 50 U/L (14-36); Blood Urea Nitrogen 8 mg/dl (7-17); Carbon Dioxide 23 mmol/L (22.0-30.0); Creatinine Clearance Estimated 85 mL/min (50-200); Creatinine,Serum 0.90 mg/dl (0.52-1.04); Estimated Glomerular Filt Rate 63 ml/min (>60); GFR (African American) 76 ML/MIN (>60); INR 1.09 (0.9-1.1); Prothrombin Time 12.0 seconds (10.1-12.5)
[2025-10-10 14:28] LABS: Albumin/Globulin Ratio 0.9 (1.1-1.8); Alkaline Phosphatase 459 U/L (38-126); Bilirubin,Total 0.8 mg/dl (0.2-1.3); Calcium 8.2 mg/dl (8.4-10.2); Globulin 3.8 g/dL (1.3-3.2); Glucose 102 mg/dl (74-100); Lipase 134 U/L (23-300); Magnesium 1.4 mg/dl (1.6-2.3); Total Protein,Serum 7.4 g/dl (6.3-8.2)
[2025-10-10 14:29] LABS: Coronavirus 19, PCR Not Detected (NotDetected); Influenza A, PCR Not Detected (NotDetected); Influenza B, PCR Not Detected (NotDetected)
[2025-10-10 14:37] LABS: NT Pro Brain Natriuretic Pep. 226 pg/mL (0-125)
[2025-10-10 14:43] LABS: Troponin I < 0.01 ng/ml (0.00-0.034)
[2025-10-10] MEDS: SODIUM CHLORIDE 0.9% 10ML SYR (RAD ONLY) 10 ML IV (14:53)
[2025-10-10] MEDS: IOPAMIDOL-370 (76%);100ML BOTTLE 75 ML IV (14:53)
[2025-10-10] MEDS: 0.9 % SODIUM CHLORIDE 1000ML 1,000 ML 999 ML IV (15:06)
[2025-10-10] MEDS: MAGNESIUM SULFATE IN WATER 2 GM/50 ML PIGGYBACK IV (15:09)
[2025-10-10] MEDS: ONDANSETRON 4MG/2ML VIAL 4 MG IV (15:09)
[2025-10-10] MEDS: POTASSIUM CHLORIDE 20MEQ TAB 60 MEQ PO (15:12)
== END 2025-10-10 16:37 | disposition home or self-care (01) ==
PROVIDERS: Physician Assistant; Emergency Provider Student in an Organized Health Care Education/Training Program; PCP Family Medicine
DX: E87.6 Hypokalemia (principal); D17.79 Benign lipomatous neoplasm of other sites; E83.42 Hypomagnesemia; R11.2 Nausea with vomiting, unspecified
CPT/HCPCS: 36415; 70450; 71045; 74177; 80053; 80320; 83605; 83690; 83735; 83880; 84484; 85025; 85610; 87040; 87636; 93005; 96361; 96365; 96375; 99285; J2405; J3475; J7030; Q9967

== ENCOUNTER 2025-10-17 14:50 | Outpatient (CLI) | payer MEDICARE, OTHER, SELFPAY ==
--- OUTSIDE RECORDS SUMMARY | 2025-09-15 14:51 | XMS_ITS | Encounter Summary ---
Author Organization [facility] Address [address] [place] [address] Care Team Providers Care Massage Therapy Instructor Name Role Phone Manas Jenkins MD Primary Care Provider [phone] Source Comments This information has been disclosed [...] release of HIV test results or diagnoses. [id number] Health Encounter Details Date Type Department Care Team (Late st Contact Info) Description 09/15/2025 3:51 PM EDT Anesthesia Event [facility] ENDOSCOPY [address] [place] [phone] Derrek Nelson MD [address] [facility] [phone] Anesthesia Record Procedure Summary Procedure Name Responsible Anesthesiologist Anesthesia Start Time Anesthesia Stop Time PROCEDURE NOT PERFORMED Events No events on file. Meds * Agents No agents on file. * Blood No blood administrations on file. Lines, Drains, and Airways Type Details Placement Removal Wound 05/25/25; 1899; #1; Skin tear; Arm; Right 05/25/251899 by Jose L Cerda, RN PICC Single Lumen 09/19/25; 1646; 06/26 12/19; [id number]; Yes; 4; 46 cm; Right; Brachial; Chlorhexidine; Injectable; Ultrasound Assisted, Modified [place] Technique, Tip Guidance Assisted; Tolerated well; Tip Positioning System, Blood return, Ultrasound, Tip Locating System 09/19/25 1646 by Beatrice Espinal RN documented in this encounter 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 Tobacco Use Types Packs/Day Years Used Date Smoking Tobacco: Former Cigarettes Smokeless Tobacco: Never Comments:Former 2 PPD cigare tte smoker, quit ~2004 Alcohol Use Standard Drinks/Week Comments No 0 (1 standard drink = 0.6 oz pur e alcohol) [facility] Utilities Answer Date Recorded In the past 12 months has th e [employer], [employer], oil, or water [employer] threatened to shut off services in your home? No 09/14/2025 AUDIT-C Answer Date Recorded Q1: How often do you have a drink containing alcohol? Never 09/14/2025 Q2: How many drinks containi ng alcohol do you have on a typical day when you are drinking? Patient does not drink Q3: How often do you have si x or more drinks on one occasion? Never 09/14/2025 Hunger Vital Sign Answer Date Recorded Within the past 12 months, y ou worried that your food would run out before you got the money to buy more. Never true 09/14/20 Within the past 12 months, t he food you bought just didn't last and you didn't have money to get more. Never true 09/14/2025 PRAPARE - Transportation Answer Date Re corded In the past 12 months, has l ack of transportation kept you from medical appointments or from getting medications? No 08/25 In the past 12 months, has l ack of transportation kept you from meetings, work, or from getting things needed for daily living? No 09/14/2025 Housing Stability Vital Sign Answer Sukhi e Recorded In the last 12 months, was t here a time when you were not able to pay the mortgage or rent on time? No 09/14/2025 In the past 12 months, how m any times have you moved where you were living? 0 09/14/2025 At any time in the past 12 m [facility], were you homeless or living in a [facility] (including now)? No 09/14/2025 Comments No Sex and Gender Information Value Date Recorded Sex Assigned at Not on file Legal Sex Female 11:13 AM EST Gender Identity Not on file Sexual Orientation Not on file documented as of this encounter Functional Status * Peripheral Vascular Question Answer Date of Assessment Author Compression boots No 09/18/2025 8:04 PM EDT Baldemar Gandhi RN Peripheral Vascular (WDL) X 09/18/2025 8:04 PM EDT Baldemar Gandhi RN * Question Answer Date of Assessment Author Anti-Embolism Intervention Other (Comment) 09/16/2025 8:00 PM EDT Karen Chacko RN documented as of this encounter H&P Notes * Derrek Nelson MD - 09/15/2025 2:36 PM EDT [facility] DEPARTMENT OF ANESTHESIOLOGY PRE-PROCEDURAL EVALUATION Laura Mallory is a 65 y.o. year old female presenting for: Procedure(s): ERCP Surgeon: Blaine Peña MD Chief Complaint Septic shock; Ascending cholangitis Review of Systems Anesthesia Evaluation Patient summary reviewed. No history of anesthetic complications I have reviewed the History and Physical Exam, any relevant changes are noted in the anesthesia pre-operative evaluation. Cardiovascular: (+) CAD (non-obstructive), cardiomyopathy (Hx Takotsubo cardiomyopathy - recovered EF) and CHF. (-) hypertension, dysrhythmias, angina. 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 (-) seizures. Pulmonary: COPD. Sleep apnea. (-) shortness of breath, recent URI. GI/Hepatic/Renal: (+) liver disease. GERD is. Comments: S/p choleycystectomy Endo/Other: (+) anemia and DVT (In legs - was on a/c for a few months and then stopped - years ago). (-) diabetes mellitus. Comments: S/p hysterectomy Past Medical History Past Medical History: Diagnosis Date Acute non-ST segment elevation myocardial infarction (CMS-HCC) 02/26/2023 Anxiety Atherosclerosis of coronary artery without angina pectoris 02/26/2023 COPD (chronic obstructive pulmonary disease) ([facility]) Heart failure with improved ejection fraction (HFimpEF) ([facility]) Stress-induced cardiomyopathy 02/26/2023 Past Surgical History Past Surgical History: Procedure Laterality Date SECTION CHOLECYSTECTOMY HYSTERECTOMY Family History No family history on file. 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 Socioeconomic History Marital status: Spouse name: Not on file Number of children: Not on file Years of education: Not on file Highest education level: Not on file Occupational History Not on file Tobacco Use Smoking status: Former Types: Cigarettes Smokeless tobacco: Never Tobacco comments: Former 2 PPD cigarette smoker, quit ~2004 Substance and Sexual Activity Alcohol use: No Drug use: No Sexual activity: Not on file Other Topics Concern Caffeine Use Yes Occupational Exposure Not Asked Exercise Not Asked Seat Belt Not Asked Social Drivers of Health Financial Resource Strain: Not on file Food Insecurity: No Food Insecurity (09/14/2025) Hunger Vital Sign Worried About Running Out of Food in the Last Year: Never true Ran Out of Food in the Last Year: Never true Transportation Needs: No Transportation Needs (09/14/2025) PRAPARE - Transportation Lack of Transportation (Medical): No Lack of Transportation (Non-Medical): No Physical Activity: Not on file Stress: Not on file Social Connections: Not on file Intimate Partner Violence: Not At Risk (09/14/2025) Humiliation, Afraid, Rape, and Kick questionnaire Fear of Current or Ex-Partner: No Emotionally Abused: No Physically Abused: No Sexually Abused: No Medications Allergies: Allergies[1] Home Meds: Home Medications Medication Sig Taking? Last Dose aspirin 81 MG EC tablet Take 1 tablet (81 mg total) by mouth daily. Yes 09/14/2025 atorvastatin (LIPITOR) 40 MG tablet Take 1 tablet (40 mg total) by mouth daily. Yes 09/14/2025 carvediloL (COREG) 3.125 MG tablet Take 1 tablet (3.125 mg total) by mouth 2 times a day. Yes 09/14/2025 celecoxib (CELEBREX) 100 MG capsule Take 1 capsule (100 mg total) by mouth 2 times a day. Yes 09/14/2025 cholecalciferol, vitamin D3, 50 mcg (2,000 unit) Cap Take 1 capsule by mouth daily. Yes 09/14/2025 DULoxetine (CYMBALTA) 60 MG capsule Take 1 capsule (60 mg total) by mouth daily. Yes 09/14/2025 famotidine (PEPCID) 20 MG tablet Take 1 tablet (20 mg total) by mouth daily. Yes 09/14/2025 furosemide (LASIX) 40 MG tablet Take 1 tablet (40 mg total) by mouth 2 times a day. Yes 09/14/2025 gabapentin (NEURONTIN) 100 MG capsule Take 1 capsule (100 mg total) by mouth 3 times a day. Yes 09/14/2025 hydrOXYzine HCL (ATARAX) 25 MG tablet Take 1 tablet (25 mg total) by mouth 2 times a day as needed for Itching or Anxiety. Yes 09/14/2025 LINZESS 72 mcg Cap Take 1 capsule (72 mcg total) by mouth every morning before breakfast. Yes 09/14/2025 omeprazole (PRILOSEC) 20 MG capsule Take 1 capsule (20 mg total) by mouth every morning before breakfast. Yes 09/14/2025 sacubitriL-valsartan (ENTRESTO) 24-26 mg Tab Take 1 tablet by mouth 2 times a day. Yes 09/14/2025 topiramate (TOPAMAX) 100 MG tablet Take 1.5 tablets (150 mg total) by mouth at bedtime. Yes 09/14/2025 topiramate (TOPAMAX) 100 MG tablet Take 1 tablet (100 mg total) by mouth daily. Yes 09/14/2025 traMADoL (ULTRAM) 50 mg tablet Take 1 tablet (50 mg total) by mouth every 8 hours as needed for Pain. Yes Past Week TRELEGY ELLIPTA 100-62.5-25 mcg DsDv Inhale 1 puff into the lungs daily. Yes 09/14/2025 LORazepam (ATIVAN) 0.5 MG tablet Take 1 tablet (0.5 mg total) by mouth daily as needed for Anxiety.Unknown oxybutynin (DITROPAN-XL) 10 MG 24 hr tablet Take 1 tablet (10 mg total) by mouth daily. Unknown spironolactone (ALDACTONE) 25 MG tablet Take 1 tablet (25 mg total) by mouth 2 times a day. Unknown Inpatient Meds: Scheduled: aspirin 81 mg Oral Daily 0900 [Held by provider] atorvastatin 40 mg Oral Daily 0900 [Held by provider] carvediloL 3.125 mg Oral BID DULoxetine 60 mg Oral Daily 0900 [Held by provider] furosemide 40 mg Oral BID [Held by provider] gabapentin 100 mg Oral TID heparin 5,000 Units Subcutaneous 3 times per day hydrocortisone sodium succinate 50 mg Intravenous Q6H umeclidinium-vilanteroL 1 puff Inhalation RT Daily And mometasone 220 mcg/puff 1 puff Inhalation RT Daily mupirocin 1 g Topical BID pantoprazole 40 mg Oral DAILY 0600 piperacillin-tazobactam (ZOSYN) IV extended interval 4.5 g Intravenous Q8H polyethylene glycol 17 g Oral Daily 0900 [Held by provider] sacubitriL-valsartan 1 tablet Oral BID senna 1 tablet Oral Nightly (2099) [Held by provider] spironolactone 25 mg Oral BID topiramate 100 mg Oral Daily 0900 topiramate 150 mg Oral Nightly (2099) vancomycin 15 mg/kg Intravenous Q12H Continuous: electrolyte 100 mL/hr (09/15/25 1217) norepinephrine 15 mcg/min (09/15/25 0659) vasopressin 0.03 Units/min (09/15/25 1303) PRN: acetaminophen, hydrOXYzine HCL, ICU electrolyte replacement protocol AND Initiate electrolyte replacement protocol, oxyCODONE OR oxyCODONE Vital Signs Wt Readings from Last 3 Encounters: 09/14/25 (!) 232 lb 5.8 oz (105.4 kg) 05/27/25 (!) 270 lb 4.5 oz (122.6 kg) 10/14/17 (!) 311 lb (141.1 kg) Ht Readings from Last 3 Encounters: 09/14/25 5' 5 (1.651 m) 05/25/25 5' 5 (1.651 m) 10/14/17 5' 5 (1.651 m) Temp Readings from Last 3 Encounters: 09/15/25 98 ??F (36.7 ??C) (Axillary) 05/28/25 98.6 ??F (37 ??C) (Oral) BP Readings from Last 3 Encounters: 09/15/25 97/59 05/28/25 144/88 10/14/17 (!) 141/93 Pulse Readings from Last 3 Encounters: 09/15/25 86 05/28/25 71 10/14/17 77 SpO2 Readings from Last 3 Encounters: 09/15/25 98% 05/28/25 94% Physical Exam Airway: Mallampati: III Mouth Opening: >2 FB TM distance: > = 3 FB Neck ROM: full (-) no facial hair (+) short neck Dental: (+) edentulous Pulmonary: Breathing: unlabored Cardiovascular: Rhythm: regular Rate: normal Neuro/Musculoskeletal/Psych: Mental status: alert and oriented to person, place and time. Abdominal: Obese. Current OB Status: Other Findings: Left IJ Triple lumen, Radial arterial line Vasopressin and Norepinephrine . Laboratory Data Lab Results Component Value Date WBC 40.7 (H) 09/15/2025 HGB 9.9 (L) 09/15/2025 HCT 30.3 (L) 09/15/2025 MCV 91.0 09/15/2025 PLT 343 09/15/2025 No results found for: ABORH Lab Results Component Value Date GLUCOSE 105 (H) 09/15/2025 BUN 24 09/15/2025 CO2 19 (L) 09/15/2025 CREATININE 1.30 09/15/2025 K 3.5 09/15/2025 NA 134 09/15/2025 CL 103 09/15/2025 CALCIUM 7.7 (L) 09/15/2025 ALBUMIN 2.9 (L) 09/15/2025 ALBUMIN 2.9 (L) 09/15/2025 PROT 5.9 (L) 09/15/2025 ALKPHOS 499 (H) 09/15/2025 ALT 133 (H) 09/15/2025 AST 234 (H) 09/15/2025 BILITOT 3.3 (H) 09/15/2025 Lab Results Component Value Date INR 1.1 09/15/2025 Lab Results Component Value Date PREGTESTUR Negative 05/25/2025 Anesthesia Plan ASA 4 Female and current non-smoker Anesthesia Type: general endotracheal. PONV Risk Factors: female, current non-smoker, plan for postoperative opioid use. Induction: Intravenous induction. Additional comments: Discussed the possibility of remaining intubated at the end of the procedure, if that were to occur, discussed iv-sedation and transfer back to the MICU to work towards extubation once safe for her. All of her and her 's questions have been answered at this time. Anesthetic plan and risks discussed with patient. Plan, alternatives, and risks of anesthesia, including , have been explained to and discussed with the patient/legal guardian. By my assessment, the patient/legal guardian understands and agrees. Scenario presented in detail. Questions answered. Blood products not discussed. Plan discussed with TYPE SOLDERING MACHINE TENDER. [1] Allergies Allergen Reactions Aleve [Naproxen Sodium] Cristina [Fexofenadine] documented in this encounter Plan of Treatment Not on file documented as of this encounter Visit Diagnoses Not on filedocumented in this encounter Additional Health Concerns Assessment Noted Time PHQ-9 Depression Total Score: 0 10/14/20 17 10:00 AM EST documented as of this encounter Care Teams Massage Therapy Instructor Relationship Specialty Start Date End Date Manas Jenkins MD [address] [place] [address] PCP - General Family Medicine 09/14/25 documented as of this encounter
--- OUTSIDE RECORDS SUMMARY | 2025-09-16 11:39 | XMS_ITS | Encounter Summary ---
Author Organization [facility] Address [address] [place] [address] Care Team Providers Care Robotic Welding Operator Name Role Phone Manas Jenkins MD Primary Care Provider [phone] Source Comments This information has been disclosed [...] release of HIV test results or diagnoses. [id number] Reason for Referral * Imaging/Cardiovascular Scan (Routine) - New Request Specialty Diagnoses / Procedures Referred By Contac t Referred To Contact Radiology Procedures CT Abdomen and or Pelvis Outside Exam System, Provider Not In [address] [address] Referral ID Status Reason Start Date Expiration Date V isits Requested Visits Authorized [id number] New Request 09/16/2025 03/15/2026 1 1 Reason for Visit * Auth/Cert (Routine) Specialty Diagnoses / Procedures Referred By Contac t Referred To Contact Intensive Care Diagnoses Septic shock Ascending cholangitis [facility] [place] [address] Phone: tel: Referral ID Status Reason Start Date Expiration Date Visits Re quested Visits Authorized [id number] 1 1 Encounter Details Date Type Department Care Team (Latest Contact Info) Description 09/16/2025 12:39 PM EDT - 09/16/2025 12:40 PM EDT Hospital Encounter [facility] Radiology [address] [place] [id number] System, Provider Not In Willem Sihn, [address] [facility] [address] [place] [address] Discharge Disposition: Home or Self Care WITHOUT Home Care Services 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 Tobacco Use Types Packs/Day Years Used Date Smoking Tobacco: Former Cigarettes Smokeless Tobacco: Never Comments:Former 2 PPD cigare tte smoker, quit ~2004 Alcohol Use Standard Drinks/Week Comments No 0 (1 standard drink = 0.6 oz pur e alcohol) [facility] Utilities Answer Date Recorded In the past 12 months has th e [employer], gas, oil, or water company threatened to [...] money to buy more. Never true 09/14/20 25 Within the past 12 months, t [...] time in the past 12 m [facility], were you homeless or living in a custodial (including now)? No 09/14/2025 Comments No Sex and Gender Information Value Date Recorded Sex Assigned at Not on file Legal Sex Female 11:13 AM EST Gender Identity Not on file Sexual Orientation Not on file documented as of this encounter Functional Status * Peripheral Vascular Question Answer Date of Assessment Author Zurita felisha No 09/16/2025 8:00 AM EDT Radha Grant Peripheral Vascular ([facility]) X 09/16/2025 8:00 AM EDT Radha Grant documented as of this encounter Medications at Time of Discharge AMOXicillin-clav ulanate (AUGMENTIN) 875-125 mg per tablet Take 1 tablet by mouth 2 times a day for 14 days. Start on 10/15/25 28 tablet 09/22/2025 2:33 PM EDT 10/15/2025 aspirin 81 MG EC tablet Take 1 [...] 1 capsule (60 mg total) by mouth at bedtime. furosemide (LASIX) 40 MG tablet Take 1 tablet (40 mg total) by mouth 2 times a day. gabapentin (NEURONTIN) 100 MG capsule Take 1 capsule (100 mg total) by mouth 3 times a day as needed. 30 capsule 09/22/2025 hydrOXYzine HCL (ATARAX) 25 MG tablet Take 1 tablet (25 mg total) by mouth 2 times a day as needed for Itching or Anxiety. 04/20/2025 LINZESS 72 mcg Cap Take 1 capsule (72 mcg total) by mouth every morning before breakfast. 04/29/2025 LORazepam (ATIVAN) 0.5 MG tablet Take 1 tablet (0.5 mg total) by mouth daily as needed for Anxiety. naloxone (NARCAN) 4 mg/actuation [place] Apply 1 spray in one nostril if needed. Call 911. May repeat dose in other nostril if no response in 3 minutes. 2 each 1 09/22/2025 omeprazole (PRILOSEC) 20 MG capsule Take 1 capsule (20 mg total) by mouth every morning before breakfast. 30 capsule 09/22/2025 polyethylene glycol (GLYCOLAX) 17 gram/dose powder Mix one capful (17 g) into 8 oz of liquid and drink twice daily as instructed. 238 g 09/22/2025 sacubitriL-valsa rtan (ENTRESTO) 24-26 mg Tab Take 1 tablet by mouth 2 times a day. senna (SENOKOT) 8.6 mg tablet Take 2 tablets by mouth 2 times a day as needed for Constipation. 30 tablet 09/22/2025 spironolactone (ALDACTONE) 25 MG tablet Take 1 tablet (25 mg total) by mouth 2 times a day. topiramate (TOPAMAX) 100 MG tablet Take 1.5 tablets (150 mg total) by mouth at bedtime. Take in addition to 100 mg in the morning for a total daily dose of 250 mg. topiramate (TOPAMAX) 100 MG tablet Take 1 tablet (100 mg total) by mouth every morning. Take in addition to 150 mg at bedtime for a total daily dose of 250 mg. traMADoL (ULTRAM) 50 mg tablet Take 1 tablet (50 mg total) by mouth every 8 hours as needed for Pain. 05/05/2025 TRELEGY ELLIPTA 100-62.5-25 mcg DsDv Inhale 1 puff into the lungs daily. 60 each 09/22/2025 2:33 PM EDT 09/21/2025 piperacillin-juan jose obactam (ZOSYN) IVPB Intravenous 13.5 g daily for 23 days. As a continuous infusion over 24 hours. 09/22/2025 famotidine (PEPCID) 20 MG tablet Take 1 tablet (20 mg total) by mouth daily. 12/27/2023 gabapentin (NEURONTIN) 100 MG capsule Take 1 capsule (100 mg total) by mouth 3 times a day. nitrofurantoin, macrocrystal-mon ohydrate, (MACROBID) 100 MG capsule Take 1 capsule (100 mg total) by mouth 2 times a day. omeprazole (PRILOSEC) 20 MG capsule Take 1 capsule (20 mg total) by mouth every morning before breakfast. oxybutynin (DITROPAN-XL) 10 MG 24 hr tablet Take 1 tablet (10 mg total) by mouth daily. piperacillin-juan jose obactam (ZOSYN) IVPB Intravenous 4.5 g daily for 23 days. As a continuous infusion over 24 hours. 09/21/2025 topiramate (TOPAMAX) 100 MG tablet Take 1 tablet (100 mg total) by mouth daily. 05/28/2025 TRELEGY ELLIPTA 100-62.5-25 mcg DsDv Inhale 1 puff into the lungs daily. 10/27/2023 documented as of this encounter Plan of Treatment Not on file documented as of this encounter Procedures Procedure Name Priority Date/Time Associated Diagnosis Comments CT ABDOMEN AND OR PELVIS OUTSIDE EXAM Routine 09/16/2025 12:39 PM EDT documented in this encounter Results * CT Abdomen and or Pelvis Outside Exam (09/16/2025 12:39 PM EDT) Narrative 09/16/2025 12:39 PM EDT Images associated with this accession number were presented to us for comparison to an examination performed here. us Provider Not In System IMG CT ORDERABLES Final R esult documented in this encounter Visit Diagnoses Not on filedocumented in this encounter Additional Health Concerns Assessment Noted Time PHQ-9 Depression Total Score: 0 10/14/20 17 10:00 AM EST documented as of this encounter Care Teams Robotic Welding Operator Relationship Specialty Start Date End Date Manas Jenkins MD [address] [place] [address] PCP - General Family Medicine 09/14/25 documented as of this encounter
--- OUTSIDE RECORDS SUMMARY | 2025-09-16 11:39 | XMS_ITS | Encounter Summary ---
Author Organization [facility] Address [address] [place] [address] Care Team Providers Care Supervisor Aluminum Boat Assembly Name Role Phone Manas Jenkins MD Primary Care Provider [phone] Source Comments This information has been disclosed [...] release of HIV test results or diagnoses. [id number] Reason for Referral * Imaging/Cardiovascular Scan (Routine) - New Request Specialty Diagnoses / Procedures Referred By Contac t Referred To Contact Radiology Procedures CT Abdomen and or Pelvis Outside Exam System, Provider Not In [address] [address] Referral ID Status Reason Start Date Expiration Date V isits Requested Visits Authorized [id number] New Request 09/16/2025 03/15/2026 1 1 Reason for Visit * Auth/Cert (Routine) Specialty Diagnoses / Procedures Referred By Contac t Referred To Contact Intensive Care Diagnoses Septic shock Ascending cholangitis [facility] MICU [facility] [place] [address] Phone: tel: Referral ID Status Reason Start Date Expiration Date Visits Re quested Visits Authorized [id number] 1 1 Encounter Details Date Type Department Care Team (Latest Contact Info) Description 09/16/2025 12:39 PM EDT - 09/16/2025 12:40 PM EDT Hospital Encounter [facility] Radiology [address] [place] [address] System, Provider Not In Willem Shin, [address] [facility] [address] [place] [address] Discharge Disposition: Home or Self Care WITHOUT Home Care Services 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 Tobacco Use Types Packs/Day Years Used Date Smoking Tobacco: Former Cigarettes Smokeless Tobacco: Never Comments:Former 2 PPD cigare tte smoker, quit ~2004 Alcohol Use Standard Drinks/Week Comments No 0 (1 standard drink = 0.6 oz pur e alcohol) [facility] Utilities Answer Date Recorded In the past 12 months has th e [employer], gas, oil, or water company threatened to [...] in the past 12 m [facility], were you homeless or living in a usp (including now)? No 09/14/2025 Comments No Sex [...] needed for Anxiety. naloxone (NARCAN) 4 mg/actuation [place] Apply 1 spray in one nostril if [...] documented as of this encounter Care Teams Supervisor Aluminum Boat Assembly Relationship Specialty Start Date End Date Manas Jenkins MD [address] [place] [address] PCP - General Family Medicine 09/14/25 documented as of this encounter
--- OUTSIDE RECORDS SUMMARY | 2025-09-16 11:39 | XMS_ITS | Encounter Summary ---
Author Organization [facility] Address [address] [place] [address] Care Team Providers Care Dry Cell Sealer Name Role Phone Manas Jenkins MD Primary Care Provider [phone] Source Comments This information has been disclosed [...] release of HIV test results or diagnoses. [id number] Reason for Referral * Imaging/Cardiovascular Scan (Routine) - New Request Specialty Diagnoses / Procedures Referred By Contac t Referred To Contact Radiology Procedures CT Abdomen and or Pelvis Outside Exam System, Provider Not In [address] [address] Referral ID Status Reason Start Date Expiration Date V isits Requested Visits Authorized [id number] New Request 09/16/2025 03/15/2026 1 1 Reason for Visit * Auth/Cert (Routine) Specialty Diagnoses / Procedures Referred By Contac t Referred To Contact Intensive Care Diagnoses Septic shock Ascending cholangitis [facility] MICU [facility] [place] [address] Phone: tel: Referral ID Status Reason Start Date Expiration Date Visits Re quested Visits Authorized [id number] 1 1 Encounter Details Date Type Department Care Team (Latest Contact Info) Description 09/16/2025 12:39 PM EDT - 09/16/2025 12:40 PM EDT Hospital Encounter [facility] Radiology [address] [place] [phone] System, Provider Not In Willem Shin, [address] [facility] [address] [place] [address] Discharge Disposition: Home or Self Care WITHOUT Home Care Services 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 Tobacco Use Types Packs/Day Years Used Date Smoking Tobacco: Former Cigarettes Smokeless Tobacco: Never Comments:Former 2 PPD cigare tte smoker, quit ~2004 Alcohol Use Standard Drinks/Week Comments No 0 (1 standard drink = 0.6 oz pur e alcohol) [facility] Utilities Answer Date Recorded In the past 12 months has th e [employer], gas, oil, or water company threatened to [...] time in the past 12 m [facility], were you homeless or living in a chcf (including now)? No 09/14/2025 Comments No Sex [...] needed for Anxiety. naloxone (NARCAN) 4 mg/actuation [place] Apply 1 spray in one nostril if [...] documented as of this encounter Care Teams Dry Cell Sealer Relationship Specialty Start Date End Date Manas Jenkins MD [address] [place] [address] PCP - General Family Medicine 09/14/25 documented as of this encounter
--- OUTSIDE RECORDS SUMMARY | 2025-09-16 11:39 | XMS_ITS | Encounter Summary ---
Author Organization [facility] Address [address] [place] [address] Care Team Providers Care Duralumin Mechanic Name Role Phone Manas Jenkins MD Primary Care Provider [phone] Source Comments This information has been disclosed [...] release of HIV test results or diagnoses. [id number] Reason for Referral * Imaging/Cardiovascular Scan (Routine) - New Request Specialty Diagnoses / Procedures Referred By Contac t Referred To Contact Radiology Procedures CT Abdomen and or Pelvis Outside Exam System, Provider Not In [address] [address] Referral ID Status Reason Start Date Expiration Date V isits Requested Visits Authorized [id number] New Request 09/16/2025 03/15/2026 1 1 Reason for Visit * Auth/Cert (Routine) Specialty Diagnoses / Procedures Referred By Contac t Referred To Contact Intensive Care Diagnoses Septic shock Ascending cholangitis [facility] MICU [facility] [place] [address] Phone: tel: Referral ID Status Reason Start Date Expiration Date Visits Re quested Visits Authorized [id number] 1 1 Encounter Details Date Type Department Care Team (Latest Contact Info) Description 09/16/2025 12:39 PM EDT - 09/16/2025 12:40 PM EDT Hospital Encounter [facility] Radiology [address] [place] [phone] System, Provider Not In Willem Shin, [address] [facility] [address] [place] [address] Discharge Disposition: Home or Self Care WITHOUT Home Care Services 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 Tobacco Use Types Packs/Day Years Used Date Smoking Tobacco: Former Cigarettes Smokeless Tobacco: Never Comments:Former 2 PPD cigare tte smoker, quit ~2004 Alcohol Use Standard Drinks/Week Comments No 0 (1 standard drink = 0.6 oz pur e alcohol) [facility] Utilities Answer Date Recorded In the past 12 months has th e [employer], gas, oil, or water company threatened to [...] any time in the past 12 m [facility], were you homeless or living in a snf (including now)? No 09/14/2025 Comments No Sex [...] needed for Anxiety. naloxone (NARCAN) 4 mg/actuation [place] Apply 1 spray in one nostril if [...] documented as of this encounter Care Teams Duralumin Mechanic Relationship Specialty Start Date End Date Manas Jenkins MD [address] [place] [address] PCP - General Family Medicine 09/14/25 documented as of this encounter
--- OUTSIDE RECORDS SUMMARY | 2025-09-16 11:41 | XMS_ITS | Encounter Summary ---
Author Organization [facility] Address [address] [place] [address] Care Team Providers Care Photographic Plate Maker Name Role Phone Manas Jenkins MD Primary Care Provider [phone] Source Comments This information has been disclosed [...] release of HIV test results or diagnoses. [id number] Reason for Referral * Imaging/Cardiovascular Scan (Routine) - New Request Specialty Diagnoses / Procedures Referred By Contac t Referred To Contact Radiology Procedures CT Abdomen and or Pelvis Outside Exam System, Provider Not In [address] [address] Referral ID Status Reason Start Date Expiration Date V isits Requested Visits Authorized [id number] New Request 09/16/2025 03/15/2026 1 1 Reason for Visit * Auth/Cert (Routine) Specialty Diagnoses / Procedures Referred By Contac t Referred To Contact Intensive Care Diagnoses Septic shock Ascending cholangitis [facility] MICU [facility] [place] [address] Phone: tel: Referral ID Status Reason Start Date Expiration Date Visits Re quested Visits Authorized [id number] 1 1 Encounter Details Date Type Department Care Team (Latest Contact Info) Description 09/16/2025 12:41 PM EDT - 09/16/2025 11:59 PM EDT Hospital Encounter [facility] Radiology [address] [place] [phone] System, Provider Not In Willem Shin, [address] [facility] [address] [place] [address] Discharge Disposition: Home or Self Care WITHOUT Home Care Services 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 Tobacco Use Types Packs/Day Years Used Date Smoking Tobacco: Former Cigarettes Smokeless Tobacco: Never Comments:Former 2 PPD cigare tte smoker, quit ~2004 Alcohol Use Standard Drinks/Week Comments No 0 (1 standard drink = 0.6 oz pur e alcohol) [facility] Utilities Answer Date Recorded In the past 12 months has th e [employer], gas, oil, or water company threatened to [...] any time in the past 12 m [facility], were you homeless or living in a half-way (including now)? No 09/14/2025 Comments No Sex and Gender Information Value Date Recorded Sex Assigned at Not on file Legal Sex Female 11:13 AM EST Gender Identity Not on file Sexual Orientation Not on file documented as of this encounter Functional Status * Peripheral Vascular Question Answer Date of Assessment Author Compression boots No 09/16/2025 8:00 PM EDT Karen Chacko RN Peripheral Vascular (WDL) X 09/16/2025 8:00 PM EDT Karen Chacko RN * Question Answer Date of Assessment Author Anti-Embolism Intervention Other (Comment) 09/16/2025 8:00 PM EDT Karen Chacko RN documented as of this encounter Medications at [...] needed for Anxiety. naloxone (NARCAN) 4 mg/actuation [place] Apply 1 spray in one nostril if [...] (20 mg total) by mouth daily. 12/27/2023 5 gabapentin (NEURONTIN) 100 MG capsule Take 1 capsule (100 mg total) by mouth 3 times a day. 5 nitrofurantoin, macrocrystal-mon ohydrate, (MACROBID) 100 MG capsule Take 1 capsule (100 mg total) by mouth 2 times a day. omeprazole (PRILOSEC) 20 MG capsule Take 1 capsule (20 mg total) by mouth every morning before breakfast. oxybutynin (DITROPAN-XL) 10 MG 24 hr tablet Take 1 tablet (10 mg total) by mouth daily. 5 piperacillin-juan jose obactam (ZOSYN) IVPB Intravenous 4.5 g daily for 23 days. As a continuous infusion over 24 hours. 09/21/2025 topiramate (TOPAMAX) 100 MG tablet Take 1 tablet (100 mg total) by mouth daily. 05/28/2025 TRELEGY ELLIPTA 100-62.5-25 mcg DsDv Inhale 1 puff into the lungs daily. 10/27/2023 5 documented as of this encounter Plan of Treatment Not on file documented as of this encounter Procedures Procedure Name Priority Date/Time Associated Diagnosis Comments CT ABDOMEN AND OR PELVIS OUTSIDE EXAM Routine 09/16/2025 12:41 PM EDT documented in this encounter Results * CT Abdomen and or Pelvis Outside Exam (09/16/2025 12:41 PM EDT) Narrative 09/16/2025 12:41 PM EDT Images associated with this accession [...] documented as of this encounter Care Teams Photographic Plate Maker Relationship Specialty Start Date End Date Manas Jenkins MD [address] [place] [address] PCP - General Family Medicine 09/14/25 documented as of this encounter
--- OUTSIDE RECORDS SUMMARY | 2025-09-16 11:41 | XMS_ITS | Encounter Summary ---
Author Organization [facility] Address [address] [place] [address] Care Team Providers Care Oral Therapist Name Role Phone Manas Jenkins MD Primary Care Provider [phone] Source Comments This information has been disclosed [...] release of HIV test results or diagnoses. [id number] Reason for Referral * Imaging/Cardiovascular Scan (Routine) - New Request Specialty Diagnoses / Procedures Referred By Contac t Referred To Contact Radiology Procedures CT Abdomen and or Pelvis Outside Exam System, Provider Not In [address] [address] Referral ID Status Reason Start Date Expiration Date V isits Requested Visits Authorized [id number] New Request 09/16/2025 03/15/2026 1 1 Reason for Visit * Auth/Cert (Routine) Specialty Diagnoses / Procedures Referred By Contac t Referred To Contact Intensive Care Diagnoses Septic shock Ascending cholangitis [facility] MICU [facility] [place] [address] Phone: tel: Referral ID Status Reason Start Date Expiration Date Visits Re quested Visits Authorized [id number] 1 1 Encounter Details Date Type Department Care Team (Latest Contact Info) Description 09/16/2025 12:41 PM EDT - 09/16/2025 11:59 PM EDT Hospital Encounter [facility] Radiology [address] [place] [phone] System, Provider Not In Willem Shin, [address] [facility] [address] [place] [address] Discharge Disposition: Home or Self Care WITHOUT Home Care Services 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 Tobacco Use Types Packs/Day Years Used Date Smoking Tobacco: Former Cigarettes Smokeless Tobacco: Never Comments:Former 2 PPD cigare tte smoker, quit ~2004 Alcohol Use Standard Drinks/Week Comments No 0 (1 standard drink = 0.6 oz pur e alcohol) [facility] Utilities Answer Date Recorded In the past 12 months has th e [employer], gas, oil, or water company threatened to [...] any time in the past 12 m [facility], were you homeless or living in a correction (including now)? No 09/14/2025 Comments No Sex [...] needed for Anxiety. naloxone (NARCAN) 4 mg/actuation [place] Apply 1 spray in one nostril if [...] documented as of this encounter Care Teams Oral Therapist Relationship Specialty Start Date End Date Manas Jenkins MD [address] [place] [address] PCP - General Family Medicine 09/14/25 documented as of this encounter
--- OUTSIDE RECORDS SUMMARY | 2025-09-16 11:41 | XMS_ITS | Encounter Summary ---
Author Organization [facility] Address [address] [place] [address] Care Team Providers Care Pitch Filler Name Role Phone Manas Jenkins MD Primary Care Provider [phone] Source Comments This information has been disclosed [...] release of HIV test results or diagnoses. [id number] Reason for Referral * Imaging/Cardiovascular Scan (Routine) - New Request Specialty Diagnoses / Procedures Referred By Contac t Referred To Contact Radiology Procedures CT Abdomen and or Pelvis Outside Exam System, Provider Not In [address] [address] Referral ID Status Reason Start Date Expiration Date V isits Requested Visits Authorized [id number] New Request 09/16/2025 03/15/2026 1 1 Reason for Visit * Auth/Cert (Routine) Specialty Diagnoses / Procedures Referred By Contac t Referred To Contact Intensive Care Diagnoses Septic shock Ascending cholangitis [facility] MICU [facility] [place] [address] Phone: tel: Referral ID Status Reason Start Date Expiration Date Visits Re quested Visits Authorized [id number] 1 1 Encounter Details Date Type Department Care Team (Latest Contact Info) Description 09/16/2025 12:41 PM EDT - 09/16/2025 11:59 PM EDT Hospital Encounter [facility] Radiology [address] [place] [address] System, Provider Not In Willem Shin, [address] [facility] [address] [place] [address] Discharge Disposition: Home or Self Care WITHOUT Home Care Services 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 Tobacco Use Types Packs/Day Years Used Date Smoking Tobacco: Former Cigarettes Smokeless Tobacco: Never Comments:Former 2 PPD cigare tte smoker, quit ~2004 Alcohol Use Standard Drinks/Week Comments No 0 (1 standard drink = 0.6 oz pur e alcohol) [facility] Utilities Answer Date Recorded In the past 12 months has th e [employer], gas, oil, or water company threatened to [...] any time in the past 12 m [facility], were you homeless or living in a fci (including now)? No 09/14/2025 Comments No Sex [...] needed for Anxiety. naloxone (NARCAN) 4 mg/actuation [place] Apply 1 spray in one nostril if [...] documented as of this encounter Care Teams Pitch Filler Relationship Specialty Start Date End Date Manas Jenkins MD [address] [place] [address] PCP - General Family Medicine 09/14/25 documented as of this encounter
--- OUTSIDE RECORDS SUMMARY | 2025-10-17 14:56 | XMS_ITS | Clinical Summary ---
Author Organization [facility] Address [address] [place] [address] Phone Care Team Providers Care Turkey Roll Maker Name Role Phone Javi Corrales MD Primary Care Physician [phone] [ ] Conditions or Problems No information available. Medications No information available. Medications Administered No information available. Allergies, Adverse Reactions, Alerts No information available. Results No information available. Plan of Care No information available. Procedures No information available. Vital Signs No information available. Immunizations No information available. Advance Directives No information available.
--- OUTSIDE RECORDS SUMMARY | 2025-10-17 14:57 | XMS_ITS | Encounter Summary ---
[facility] [address] [place] [address] Care Team Providers Care Aerodynamics Engineer Name Role Phone Manas Jenkins MD Primary Care Provider + Encounter Details Date Type Department Care Team (Late st Contact Info) Description 05/24/2025 Results Follow-Up [facility] [address] [place] [address] Manas Jenkins MD [address] [place] [address] 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 Tobacco Use Types [...] Care Team (Late st Contact Info) Description 10/27/2025 11:15 AM EST Office Visit [facility] [address] [place] [address] Manas Jenkins MD [address] [place] [address] documented as of this encounter Visit Diagnoses Not on filedocumented in this encounter Additional Health Concerns Assessment Noted Time PHQ-2 Depression Total Score: 1 11/27/19 24 1:57 PM EST documented as of this encounter Care Teams Aerodynamics Engineer Relationship Specialty Start Date End Date Manas Jenkins MD [address] [place] [address] PCP - General Family Medicine 05/02/22 documented as of this encounter
--- OUTSIDE RECORDS SUMMARY | 2025-10-17 14:57 | XMS_ITS | Encounter Summary ---
[facility] [address] [place] [address] Care Team Providers Care Buyer Assistant Name Role Phone Manas Jenkins MD Primary Care Provider + Reason for Visit * Reason Onset Date Comments Med Refill 03/01/2025 Encounter Details Date Type Department Care Team (Late st Contact Info) Description 03/01/[address] [facility] [address] [place] [address] Manas Jenkins MD [address] [place] [address] Primary osteoarthritis of right knee; [...] Jenkins is out this wk. Suggested she mixing picker tender the remaining refill at the pharmacy until he returns. She understood. * Telephone Encounter - Lorena Chawla RegSched Rep - 03/01/2025 8:11 AM EDT Caller: Laura Mallory Relationship: Self Best call back number: [phone] Requested Prescriptions: Requested Prescriptions Pending Prescriptions Disp Refills traMADol (ULTRAM) 50 MG tablet 90 tablet 1 Sig: Take 1 tablet by mouth Every 8 (Eight) Hours As Needed for Moderate Pain. Pharmacy where request should be sent: [facility] - [address] [phone] [facility] [phone] Last office visit with prescribing clinician: 11/04/2024 [...] Description 10/27/2025 11:15 AM EST Office Visit [facility] [address] [facility] [place] [id number] Manas Jenkins MD [address] [place] [address] documented as of this encounter Visit Diagnoses Diagnosis Primary osteoarthritis of right knee Chronic right-sided low back pain with right-sided sciatica documented in this encounter Additional Health Concerns Assessment Noted Time PHQ-2 Depression Total Score: 1 11/27/19 24 1:57 PM EST documented as of this encounter Care Teams Buyer Assistant Relationship Specialty Start Date End Date Manas Jenkins MD [address] [place] [address] PCP - General Family Medicine 05/02/22 documented as of this encounter
--- OUTSIDE RECORDS SUMMARY | 2025-10-17 14:57 | XMS_ITS | Encounter Summary ---
[facility] [address] [place] [address] Care Team Providers Care Hydraulic Press Operator Name Role Phone Manas Jenkins MD Primary Care Provider + Encounter Details Date Type Department Care Team (Late st Contact Info) Description 06/10/2025 Results Follow-Up [facility] [address] [place] [address] Manas Jenkins MD [address] [place] [address] 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 Tobacco Use Types [...] Department Care Team (Late Contact Info) Description 10/27/2025 11:15 AM EST Office Visit [facility] [address] [place] [address] Manas Jenkins MD [address] [place] [address] documented as of this encounter Visit Diagnoses Not on filedocumented in this encounter Additional Health Concerns Assessment Noted Time PHQ-2 Depression Total Score: 1 11/27/19 24 1:57 PM EST documented as of this encounter Care Teams Hydraulic Press Operator Relationship Specialty Start Date End Date Manas Jenkins MD [address] [place] [address] PCP - General Family Medicine 05/02/22 documented as of this encounter
--- OUTSIDE RECORDS SUMMARY | 2025-10-17 14:57 | XMS_ITS | Encounter Summary ---
[facility] [address] [place] [address] Care Team Providers Care Environmental Protection Inspector Name Role Phone Manas Jenkins MD Primary Care Provider + Encounter Details Date Type Department Care Team (Late st Contact Info) Description 10/01/2025 Documentation [facility] [address] [place] [address] Hunter Torrez MD [address] [place] [address] 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 Tobacco Use [...] on file documented as of this encounter Progress Notes * Hunter Torrez MD - 10/01/2025 8:17 AM ESTPatient called reporting lower back pain since 3 AM this morning. She is requesting a muscle relaxer. Reviewed current medication list. She reports that she thinks it is related to where she was in ahospital bed for quite a while. She denies any current fever or chills. No pain in the legs or numbness in the legs. She has had no urinary burning or frequency. She has had this in the past. She hastried her Excedrin and tramadol without relief. Will send in baclofen 10 mg 1 3 times a day as needed for muscle spasms and pain #20 to [facility] pharmacy. She was told to go to the ER if pain is not improving or worsening. She expressed understanding. documented in this encounter Plan of Treatment Upcoming Encounters Date Type Department Care Team (Late st Contact Info) Description 10/27/2025 11:15 AM EST Office Visit [facility] [address] [place] [address] Manas Jenkins MD [address] [place] [address] documented as of this encounter Visit Diagnoses Not on filedocumented in this encounter Additional Health Concerns Assessment Noted Time PHQ-2 Depression Total Score: 1 11/27/19 24 1:57 PM EST documented as of this encounter Care Teams Environmental Protection Inspector Relationship Specialty Start Date End Date Manas Jenkins MD [address] [place] [address] PCP - General Family Medicine 05/02/22 documented as of this encounter
--- OUTSIDE RECORDS SUMMARY | 2025-10-17 14:57 | XMS_ITS | Encounter Summary ---
[facility] [address] [place] [address] Care Team Providers Care Probate Lawyer Name Role Phone Manas Blancas MD Primary Care Provider + Encounter Details Date Type Department Care Team (Late st Contact Info) Description 10/10/2025 Telephone [facility] [address] [place] [address] Manas Blancas MD [address] [place] [address] 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 Tobacco Use Types [...] encounter Miscellaneous Notes * Telephone Encounter - Haydee Mtat RegSched Rep - 10/10/2025 1:40 PM EST Provider: DR BLANCAS Caller: VILLA Relationship to Patient: Home Health Reason for Call HOME HEALTH STATED THAT THE PATIENT'S BP WAS LOW 70/40, AND HEART RATE WAS 105. PATIENT WAS NOT FEELING WELL. PATIENT WAS SENT TO [facility] VIA AMBULANCE. documented in this encounter Plan of Treatment Upcoming Encounters Date Type Department Care Team (Late st Contact Info) Description 10/27/2025 11:15 AM EST Office Visit [facility] [address] [place] [address] Manas Blancas MD [address] [place] [address] documented as of this encounter Visit Diagnoses Not on filedocumented in this encounter Additional Health Concerns Assessment Noted Time PHQ-2 Depression Total Score: 1 11/27/19 24 1:57 PM EST documented as of this encounter Care Teams Probate Lawyer Relationship Specialty Start Date End Date Manas Blancas MD [address] [place] [address] PCP - General Family Medicine 05/02/22 documented as of this encounter
--- OUTSIDE RECORDS SUMMARY | 2025-10-17 14:57 | XMS_ITS | Encounter Summary ---
[facility] [address] [place] [address] Care Team Providers Care Release Coordinator Name Role Phone Manas Jenkins MD Primary Care Provider + Reason for Visit * Reason Onset Date Comments Med Refill 10/10/2025 Encounter Details Date Type Department Care Team (Late st Contact Info) Description 10/10/2025 Refill [facility] [address] [place] [address] Manas Jenkins MD [address] [place] [address] Primary osteoarthritis of right knee; [...] encounter Miscellaneous Notes * Telephone Encounter - Sol Boyd RegSched Rep - 10/10/2025 8:30 AM EST Refill request for tramadol documented in this encounter Plan of Treatment Upcoming Encounters Date Type Department Care Team (Late st Contact Info) Description 10/27/2025 11:15 AM EST Office Visit [facility] [address] [facility] [place] [address] Manas Jenkins MD [address] [place] [address] documented as of this encounter Visit Diagnoses Diagnosis Primary osteoarthritis of right knee Chronic right-sided low back pain with right-sided sciatica documented in this encounter Additional Health Concerns Assessment Noted Time PHQ-2 Depression Total Score: 1 11/27/19 24 1:57 PM EST documented as of this encounter Care Teams Release Coordinator Relationship Specialty Start Date End Date Manas Jenkins MD [address] [place] [address] PCP - General Family Medicine 05/02/22 documented as of this encounter
--- OUTSIDE RECORDS SUMMARY | 2025-10-17 14:57 | XMS_ITS | Clinical Summary ---
Author Organization [facility] Address [address] [place] [id number] Care Team Providers Care Executive Administrative Asst Name Role Phone Manas Jenkins MD Primary Care Provider [phone] Source Comments This information has been disclosed [...] therelease of HIV test results or diagnoses. [id number] Allergies Active Allergy Reactions Criticality Noted Date Comments Naproxen Sodium 10/14/2017 Fexofenadine 10/14/2017 Medications DULoxetine (CYMBALTA) 60 MG capsule Take 1 capsule (60 mg total) by mouth at bedtime. Active furosemide (LASIX) 40 MG tablet Take [...] by mouth 2 times a day. Active cholecalcifer ol, vitamin D3, 50 mcg (2,000 unit) Cap Take 1 capsule by mouth daily. 03/04/20 25 Active celecoxib (CELEBREX) 100 MG capsule Take 1 capsule (100 mg total) by mouth 2 times a day. 05/30/20 25 Active hydrOXYzine HCL (ATARAX) 25 MG tablet Take 1 tablet (25 mg total) by mouth 2 times a day as needed for Itching or Anxiety. 04/20/20 25 Active LINZESS 72 mcg Cap Take 1 capsule (72 mcg total) by mouth every morning before breakfast. 04/29/20 25 Active sacubitriL-va lsartan (ENTRESTO) 24-26 mg Tab Take 1 tablet by mouth 2 times a day. Active spironolacton e (ALDACTONE) 25 MG tablet Take 1 tablet (25 mg total) by mouth 2 times a day. Active traMADoL (ULTRAM) 50 mg tablet Take 1 tablet (50 mg total) by mouth every 8 hours as needed for Pain. 05/05/20 25 Active topiramate (TOPAMAX) 100 MG tablet Take 1.5 tablets (150 mg total) by mouth at bedtime. Take in addition to 100 mg in the morning for a total daily dose of 250 mg. Active topiramate (TOPAMAX) 100 MG tablet Take 1 tablet (100 mg total) by mouth every morning. Take in addition to 150 mg at bedtime for a total daily dose of 250 mg. Active TRELEGY ELLIPTA 100-62.5-25 mcg DsDv Inhale 1 puff into the lungs daily. 60 each 5 2:33 PM EDT 09/21/20 25 Active polyethylene glycol (GLYCOLAX) 17 gram/dose powder Mix one capful (17 g) into 8 oz of liquid and drink twice daily as instructed. 238 g 09/22/20 25 Active senna (SENOKOT) 8.6 mg tablet Take 2 tablets by mouth 2 times a day as needed for Constipation. 30 tablet 09/22/20 25 Active gabapentin (NEURONTIN) 100 MG capsule Take 1 capsule (100 mg total) by mouth 3 times a day as needed. 30 capsule 09/22/20 25 Active omeprazole (PRILOSEC) 20 MG capsule Take 1 capsule (20 mg total) by mouth every morning before breakfast. 30 capsule 09/22/20 25 Active naloxone (NARCAN) 4 mg/actuation [place] Apply 1 spray in one nostril if needed. Call 911. May repeat dose in other nostril if no response in 3 minutes. 2 each 1 10/30/20 25 Active AMOXicillin-c lavulanate (AUGMENTIN) 875-125 mg per tablet Take 1 tablet by mouth 2 times a day for 14 days. Start on 10/15/25 28 tablet 2:33 PM EDT 10/15/20 Active omeprazole (PRILOSEC) 20 MG capsule Take 1 capsule (20 mg total) by mouth every morning before breakfast. Discontinued famotidine (PEPCID) 20 MG tablet Take 1 tablet (20 mg total) by mouth daily. 12/27/19 Discontinued(St op Taking at Discharge) TRELEGY ELLIPTA 100-62.5-25 mcg DsDv Inhale 1 puff into the lungs daily. 10/27/20 Discontinued gabapentin (NEURONTIN) 100 MG capsule Take 1 capsule (100 mg total) by mouth 3 times a day. Discontinued oxybutynin (DITROPAN-XL) 10 MG 24 hr tablet Take 1 tablet (10 mg total) by mouth daily. Discontinued topiramate (TOPAMAX) 100 MG tablet Take 1 tablet (100 mg total) by mouth daily. 05/28/20 Discontinued nitrofurantoi n, macrocrystal- monohydrate, (MACROBID) 100 MG capsule Take 1 capsule (100 mg total) by mouth 2 times a day. Discontinued piperacillin- tazobactam (ZOSYN) IVPB Intravenous 4.5 g daily for 23 days. As a continuous infusion over 24 hours. 09/21/20 Discontinued piperacillin- tazobactam (ZOSYN) IVPB Intravenous 13.5 g daily for 23 days. As a continuous infusion over 24 hours. 09/22/20 Active Problems Problem Noted Date Diagnosed Date Weakness 09/21/2025 Assessment & Plan (09/21/2025 3:40 PM EDT): PT/OT evaluated the patient and recommended Short-term skilled PT/OT placement. Sepsis due to Escherichia coli with acute organ dysfunction 09/17/2025 Assessment & Plan (09/21/2025 3:40 PM EDT): OSH workup showed elevated lactate with associated hypotension, iso leukocytosis upto 45 with neutrophilic shift, overall concerning for septic shock. Confirmed E coli positive urine and blood cultures from OSH. Also considering cholangitis vs pancreatitis. Not concerned for cardiogenic shock given preserved EF on formal TTE. Not concerned for hemorrhagic shock due to no apparent bleeding. S/p 2 L IVF here, plus additional at OSH, meeting 30cc/kg. Lactate downtrended with initiation of pressors. Weaned off levo, bumped out to medicine. Sed rate was elevated. -MAP Goal >65, currently off pressors on floor -Primary team was able to call and confirm with [facility] lab that blood cx and urine cx both with E. Coli susceptible to Zosyn, media tab has the faxed records of the blood cx, unfortunately the urine cx data sent was for the NGTD culture instead of the original cx showing E. Coli. -Repeat blood culture at [facility] - ID is following Assessment & Plan (09/20/2025 8:54 PM EDT): OSH workup showed elevated lactate with associated hypotension, iso leukocytosis upto 45 with neutrophilic shift, overall concerning for septic shock. Confirmed E coli positive urine and blood cultures from OSH. Also considering cholangitis vs pancreatitis. Not concerned for cardiogenic shock given preserved EF on formal TTE. Not concerned for hemorrhagic shock due to no apparent bleeding. S/p 2 L IVF here, plus additional at OSH, meeting 30cc/kg. Lactate downtrended with initiation of pressors. Weaned off levo, bumped out to medicine. Sed rate was elevated. -MAP Goal >65, currently off pressors on floor -Primary team was able to call and confirm with [facility] lab that blood cx and urine cx both with E. Coli susceptible to Zosyn, media tab has the faxed records of the blood cx, unfortunately the urine cx data sent was for the NGTD culture instead of the original cx showing E. coli -ID consulted for duration of abx Continue the use of Zosyn to complete 4 weeks course EOT 10/14/2025, could transition to PO Augmentin after 4 weeks of IV therapy, total 6 weeks Urology consultation for history of recurrent UTI and thickening of the bladder on imaging - primary team will plan to do Outpatient referral Follow up labs weekly CBC.diff, ESR, CRP, CMP and fax labs to [facility] at [phone] PICC line care weekly - primary team ordered PICC consult Will arrange [facility] follow up. -Repeat blood culture at [facility] Assessment & Plan (09/19/2025 4:13 PM EDT): OSH workup showed elevated lactate with associated hypotension, iso leukocytosis upto 45 with neutrophilic shift, overall concerning for septic shock. Confirmed E coli positive urine and blood cultures from OSH. Also considering cholangitis vs pancreatitis. Not concerned for cardiogenic shock given preserved EF on formal TTE. Not concerned for hemorrhagic shock due to no apparent bleeding. S/p 2 L IVF here, plus additional at OSH, meeting 30cc/kg. Lactate downtrended with initiation of pressors. Weaned off levo, bumped out to medicine. Sed rate was elevated. -MAP Goal >65, currently off pressors on floor -Primary team was able to call and confirm with [facility] lab that blood cx and urine cx both with E. Coli susceptible to Zosyn, media tab has the faxed records of the blood cx, unfortunately the urine cx data sent was for the NGTD culture instead of the original cx showing E. coli -ID consulted for duration of abx Continue the use of Zosyn to complete 4 weeks course EOT 10/14/2025, could transition to PO Augmentin after 4 weeks of IV therapy, total 6 weeks Urology consultation for history of recurrent UTI and thickening of the bladder on imaging - primary team will plan to do Outpatient referral Follow up labs weekly CBC.diff, ESR, CRP, CMP and fax labs to [facility] at [phone] PICC line care weekly - primary team ordered PICC consult Will arrange [facility] follow up. -Repeat blood culture at [facility] Assessment & Plan (09/18/2025 4:05 PM EDT): OSH workup showed elevated lactate with associated hypotension, iso leukocytosis upto 45 with neutrophilic shift, overall concerning for septic shock. Confirmed E coli positive urine and blood cultures from OSH. Also considering cholangitis vs pancreatitis. Not concerned for cardiogenic shock given preserved EF on formal TTE. Not concerned for hemorrhagic shock due to no apparent bleeding. S/p 2 L IVF here, plus additional at OSH, meeting 30cc/kg. Lactate downtrended with initiation of pressors. Weaned off levo, bumped out to medicine. Sed rate was elevated. -MAP Goal >65, currently off pressors on floor -Continue Zosyn -ID consulted for duration of abx, note pending -discussed in person that if true liver abscesses, then need 4-6 weeks abx -would like to get the true urine culture data from the outside hospital, -MICU called [facility] but was not able to get info. We will call the hospital tomorrow. -Repeat blood culture yesterday- NGTD Assessment & Plan (09/17/2025 5:52 PM EDT): OSH workup showed elevated lactate with associated hypotension, iso leukocytosis upto 45 with neutrophilic shift, overall concerning for septic shock. Confirmed E coli positive urine and blood cultures from OSH. Also considering cholangitis vs pancreatitis. Not concerned for cardiogenic shock given preserved EF on formal TTE. Not concerned for hemorrhagic shock due to no apparent bleeding. S/p 2 L IVF here, plus additional at OSH, meeting 30cc/kg. Lactate downtrended with initiation of pressors. GI consulted-MRCP with c/f hepatic abscess, unlikely to be percutaneously or endoscopically drained, largest 1.5cm. Could be small infarcts in the liver from shock. Weaned off levo, bumped out to medicine. -MAP Goal >65, currently off pressors on floor -continue Zosyn -ID consulted for duration of abx, note pending -discussed in person that if true liver abscesses, then need 4-6 weeks abx -would like to get the true urine culture data from the outside hospital, MICU called [facility] but was not able to get info -repeat blood cx Cystitis 09/17/2025 Assessment & Plan (09/21/2025 3:40 PM EDT): OSH workup showed elevated lactate with associated hypotension, iso leukocytosis upto 45 with neutrophilic shift, overall concerning for septic shock. Confirmed E coli positive urine and blood cultures from OSH. Also considering cholangitis vs pancreatitis. Not concerned for cardiogenic shock given preserved EF on formal TTE. Not concerned for hemorrhagic shock due to no apparent bleeding. S/p 2 L IVF here, plus additional at OSH, meeting 30cc/kg. Lactate downtrended with initiation of pressors. Weaned off levo, bumped out to medicine. Sed rate was elevated. -MAP Goal >65, currently off pressors on floor -Primary team was able to call and confirm with [facility] lab that blood cx and urine cx both with E. Coli susceptible to Zosyn, media tab has the faxed records of the blood cx, unfortunately the urine cx data sent was for the NGTD culture instead of the original cx showing E. Coli. -[facility] Assessment & Plan (09/20/2025 8:54 PM EDT): OSH workup showed elevated lactate with associated hypotension, iso leukocytosis upto 45 with neutrophilic shift, overall concerning for septic shock. Confirmed E coli positive urine and blood cultures from OSH. Also considering cholangitis vs pancreatitis. Not concerned for cardiogenic shock given preserved EF on formal TTE. Not concerned for hemorrhagic shock due to no apparent bleeding. S/p 2 L IVF here, plus additional at OSH, meeting 30cc/kg. Lactate downtrended with initiation of pressors. Weaned off levo, bumped out to medicine. Sed rate was elevated. -MAP Goal >65, currently off pressors on floor -Primary team was able to call and confirm with [facility] lab that blood cx and urine cx both with E. Coli susceptible to Zosyn, media tab has the faxed records of the blood cx, unfortunately the urine cx data sent was for the NGTD culture instead of the original cx showing E. coli -ID consulted for duration of abx Continue the use of Zosyn to complete 4 weeks course EOT 10/14/2025, could transition to PO Augmentin after 4 weeks of IV therapy, total 6 weeks Urology consultation for history of recurrent UTI and thickening of the bladder on imaging - primary team will plan to do Outpatient referral Follow up labs weekly CBC.diff, ESR, CRP, CMP and fax labs to [facility] at [phone] PICC line care weekly - primary team ordered PICC consult Will arrange [facility] follow up. -Repeat blood culture at [facility] Assessment & Plan (09/19/2025 4:13 PM EDT): OSH workup showed elevated lactate with associated hypotension, iso leukocytosis upto 45 with neutrophilic shift, overall concerning for septic shock. Confirmed E coli positive urine and blood cultures from OSH. Also considering cholangitis vs pancreatitis. Not concerned for cardiogenic shock given preserved EF on formal TTE. Not concerned for hemorrhagic shock due to no apparent bleeding. S/p 2 L IVF here, plus additional at OSH, meeting 30cc/kg. Lactate downtrended with initiation of pressors. Weaned off levo, bumped out to medicine. Sed rate was elevated. -MAP Goal >65, currently off pressors on floor -Primary team was able to call and confirm with [facility] lab that blood cx and urine cx both with E. Coli susceptible to Zosyn, media tab has the faxed records of the blood cx, unfortunately the urine cx data sent was for the NGTD culture instead of the original cx showing E. coli -ID consulted for duration of abx Continue the use of Zosyn to complete 4 weeks course EOT 10/14/2025, could transition to PO Augmentin after 4 weeks of IV therapy, total 6 weeks Urology consultation for history of recurrent UTI and thickening of the bladder on imaging - primary team will plan to do Outpatient referral Follow up labs weekly CBC.diff, ESR, CRP, CMP and fax labs to [facility] at [phone] PICC line care weekly - primary team ordered PICC consult Will arrange [facility] follow up. -Repeat blood culture at [facility] Assessment & Plan (09/18/2025 4:05 PM EDT): OSH workup showed elevated lactate with associated hypotension, iso leukocytosis upto 45 with neutrophilic shift, overall concerning for septic shock. Confirmed E coli positive urine and blood cultures from OSH. Also considering cholangitis vs pancreatitis. Not concerned for cardiogenic shock given preserved EF on formal TTE. Not concerned for hemorrhagic shock due to no apparent bleeding. S/p 2 L IVF here, plus additional at OSH, meeting 30cc/kg. Lactate downtrended with initiation of pressors. Weaned off levo, bumped out to medicine. Sed rate was elevated. -MAP Goal >65, currently off pressors on floor -Continue Zosyn -ID consulted for duration of abx, note pending -discussed in person that if true liver abscesses, then need 4-6 weeks abx -would like to get the true urine culture data from the outside hospital, -MICU called [facility] but was not able to get info. We will call the hospital tomorrow. -Repeat blood culture yesterday- NGTD Assessment & Plan (09/17/2025 5:52 PM EDT): Likely cause of urosepsis from E. Coli UTI. -ID consulted, wants true original culture data from outside hospital, try to call again tomorrow Migraine 09/17/2025 Assessment & Plan (09/21/2025 7:41 AM EDT): -continue home topamax Assessment & Plan (09/20/2025 8:54 PM EDT): -continue home topamax Assessment & Plan (09/19/2025 4:13 PM EDT): -continue home topamax Assessment & Plan (09/18/2025 7:23 AM EDT): -continue home topamax Assessment & Plan (09/17/2025 5:52 PM EDT): -continue home topamax Acute pancreatitis 09/17/2025 Assessment & Plan (09/21/2025 3:40 PM EDT): Patient presented with acute abdominal pain and back pain, somewhat radiating, lipase ~3998 at OSH. Got fluid resuscitation per sepsis fluids. Although CT A/P non-con at OSH was reported normal, still meets criteria for acute pancreatitis. Patient has had similar episode in May where transaminitis was noted, it was unclear whether it was 2/2 shock or union representative of true cholangitis. With elevated bilirubin, leukocytosis and RUQ pain some c/f cholangitis as well. Normal triglycerides. Cholestatic pattern of injury. Lipase downtrended now 462. LFTs downtrending. Liver could have microinfarcts from shock as well. - GI following appreciate recs, MRCP w/o ductal dilation, no endoscopic plans for now, possible had passed stone +/- c/f hepatic abscess as below. Abx per ID. Will refer for OP GI follow up with consideration of outpatient endoscopic evaluation. Signed off. - s/p maintenance IVF -ID consulted, they recommend: Continue the use of Zosyn to complete 4 weeks course EOT 10/14/2025, could transition to PO Augmentin after 4 weeks of IV therapy, total 6 weeks Follow up labs weekly CBC.diff, ESR, CRP, CMP, PICC line care weekly Assessment & Plan (09/20/2025 8:54 PM EDT): Patient presented with acute abdominal pain and back pain, somewhat radiating, lipase ~3998 at OSH. Got fluid resuscitation per sepsis fluids. Although CT A/P non-con at OSH was reported normal, still meets criteria for acute pancreatitis. Patient has had similar episode in May where transaminitis was noted, it was unclear whether it was 2/2 shock or union representative of true cholangitis. With elevated bilirubin, leukocytosis and RUQ pain some c/f cholangitis as well. Normal triglycerides. Cholestatic pattern of injury. Lipase downtrended now 462. LFTs downtrending. Liver could have microinfarcts from shock as well. - GI following appreciate recs, MRCP w/o ductal dilation, no endoscopic plans for now, possible had passed stone +/- c/f hepatic abscess as below. Abx per ID. Will refer for OP GI follow up with consideration of outpatient endoscopic evaluation. Signed off. - s/p maintenance IVF Assessment & Plan (09/19/2025 4:13 PM EDT): Patient presented with acute abdominal pain and back pain, somewhat radiating, lipase ~3998 at OSH. Got fluid resuscitation per sepsis fluids. Although CT A/P non-con at OSH was reported normal, still meets criteria for acute pancreatitis. Patient has had similar episode in May where transaminitis was noted, it was unclear whether it was 2/2 shock or union representative of true cholangitis. With elevated bilirubin, leukocytosis and RUQ pain some c/f cholangitis as well. Normal triglycerides. Cholestatic pattern of injury. Lipase downtrended now 462. LFTs downtrending. Liver could have microinfarcts from shock as well. - GI following appreciate recs, MRCP w/o ductal dilation, no endoscopic plans for now, possible had passed stone +/- c/f hepatic abscess as below. Abx per ID. Will refer for OP GI follow up with consideration of outpatient endoscopic evaluation. Signed off. - s/p maintenance IVF Assessment & Plan (09/18/2025 2:44 PM EDT): Patient presented with acute abdominal pain and back pain, somewhat radiating, lipase ~3998 at OSH. Got fluid resuscitation per sepsis fluids. Although CT A/P non-con at OSH was reported normal, still meets criteria for acute pancreatitis. Patient has had similar episode in May where transaminitis was noted, it was unclear whether it was 2/2 shock or union representative of true cholangitis. With elevated bilirubin, leukocytosis and RUQ pain some c/f cholangitis as well. Normal triglycerides. Cholestatic pattern of injury. Lipase downtrended now 462. LFTs downtrending. - GI following appreciate recs, MRCP w/o ductal dilation, no endoscopic plans, possible had passed stone +/- c/f hepatic abscess as below. Infarcts in the liver could be from shock. - s/p maintenance IVF Assessment & Plan (09/17/2025 5:52 PM EDT): #C/f hepatic abscesses #C/f cholangitis Patient p/w acute abdominal pain and back pain, somewhat radiating, lipase ~3998 at OSH. Got fluid resuscitation per sepsis fluids. Although CT A/P non-con at OSH was reported normal, still meets criteria for acute pancreatitis. Patient has had similar episode in May where transaminitis was noted, it was unclear whether it was 2/2 shock or union representative of true cholangitis. With elevated bilirubin, leukocytosis and RUQ pain some c/f cholangitis as well. Normal triglycerides. Cholestatic pattern of injury. Lipase downtrended now 462. LFTs downtrending. - GI following appreciate recs, MRCP w/o ductal dilation, no endoscopic plans, possible had passed stone +/- c/f hepatic abscess as below - s/p maintenance IVF: additional 1L normosol over 10 hr today Tremor 09/17/2025 Assessment & Plan (09/21/2025 7:41 AM EDT): Baseline, chronic. -continue home Topamax Assessment & Plan (09/20/2025 8:54 PM EDT): Baseline, chronic. -continue home Topamax Assessment & Plan (09/19/2025 4:13 PM EDT): Baseline, chronic. -continue home Topamax Assessment & Plan (09/18/2025 7:23 AM EDT): Baseline, chronic. -continue home Topamax Assessment & Plan (09/17/2025 5:52 PM EDT): Baseline, chronic. -continue home Topamax Severe protein-calorie malnutrition 09/17/2025 Assessment & Plan (09/21/2025 7:41 AM EDT): Meets criteria per RD assessment. Difficulty with poor appetite, nausea/vomiting, swallowing difficulty with meats. Food insecurity noted. - Tolerating diet - Continue regular diet, encourage PO intake Assessment & Plan (09/20/2025 8:54 PM EDT): Meets criteria per RD assessment. Difficulty with poor appetite, nausea/vomiting, swallowing difficulty with meats. Food insecurity noted. - Tolerating diet - Continue regular diet, encourage PO intake Assessment & Plan (09/19/2025 4:13 PM EDT): Meets criteria per RD assessment. Difficulty with poor appetite, nausea/vomiting, swallowing difficulty with meats. Food insecurity noted. - Tolerating diet - Continue regular diet, encourage PO intake Assessment & Plan (09/18/2025 4:05 PM EDT): Meets criteria per RD assessment. Difficulty with poor appetite, nausea/vomiting, swallowing difficulty with meats. Food insecurity noted. - Tolerating diet - Continue regular diet, encourage PO intake Assessment & Plan (09/17/2025 5:52 PM EDT): Meets criteria per RD assessment. Difficulty with poor appetite, nausea/vomiting, swallowing difficulty with meats. Food insecurity noted. - tolerating diet Normocytic anemia 09/17/2025 Assessment & Plan (09/21/2025 7:41 AM EDT): Baseline Hg around 9-10. All cell lines decreased during hospitalization with fluids. -continue to monitor Assessment & Plan (09/20/2025 8:54 PM EDT): Baseline Hg around 9-10. All cell lines decreased during hospitalization with fluids. -continue to monitor Assessment & Plan (09/19/2025 4:13 PM EDT): Baseline Hg around 9-10. All cell lines decreased during hospitalization with fluids. -continue to monitor Assessment & Plan (09/18/2025 7:23 AM EDT): Baseline Hg around 9-10. All cell lines decreased during hospitalization with fluids. -continue to monitor Assessment & Plan (09/17/2025 5:52 PM EDT): Baseline Hg around 9-10. All cell lines decreased during hospitalization with fluids. -continue to monitor Morbid obesity 05/27/2025 Pneumonia of both lower lobes due to infectious organism 05/27/2025 Elevated LFTs 05/27/2025 Assessment & Plan (09/21/2025 3:40 PM EDT): Patient presented with acute abdominal pain and back pain, somewhat radiating, lipase ~3998 at OSH. Got fluid resuscitation per sepsis fluids. Although CT A/P non-con at OSH was reported normal, still meets criteria for acute pancreatitis. Patient has had similar episode in May where transaminitis was noted, it was unclear whether it was 2/2 shock or union representative of true cholangitis. With elevated bilirubin, leukocytosis and RUQ pain some c/f cholangitis as well. Normal triglycerides. Cholestatic pattern of injury. Lipase downtrended now 462. LFTs downtrending. Liver could have microinfarcts from shock as well. - GI following appreciate recs, MRCP w/o ductal dilation, no endoscopic plans for now, possible had passed stone +/- c/f hepatic abscess as below. Abx per ID. Will refer for OP GI follow up with consideration of outpatient endoscopic evaluation. Signed off. - s/p maintenance IVF -ID consulted, they recommend: Continue the use of Zosyn to complete 4 weeks course EOT 10/14/2025, could transition to PO Augmentin after 4 weeks of IV therapy, total 6 weeks Follow up labs weekly CBC.diff, ESR, CRP, CMP, PICC line care weekly Assessment & Plan (09/20/2025 8:54 PM EDT): Patient presented with acute abdominal pain and back pain, somewhat radiating, lipase ~3998 at OSH. Got fluid resuscitation per sepsis fluids. Although CT A/P non-con at OSH was reported normal, still meets criteria for acute pancreatitis. Patient has had similar episode in May where transaminitis was noted, it was unclear whether it was 2/2 shock or union representative of true cholangitis. With elevated bilirubin, leukocytosis and RUQ pain some c/f cholangitis as well. Normal triglycerides. Cholestatic pattern of injury. Lipase downtrended now 462. LFTs downtrending. Liver could have microinfarcts from shock as well. - GI following appreciate recs, MRCP w/o ductal dilation, no endoscopic plans for now, possible had passed stone +/- c/f hepatic abscess as below. Abx per ID. Will refer for OP GI follow up with consideration of outpatient endoscopic evaluation. Signed off. - s/p maintenance IVF Assessment & Plan (09/19/2025 4:13 PM EDT): Patient presented with acute abdominal pain and back pain, somewhat radiating, lipase ~3998 at OSH. Got fluid resuscitation per sepsis fluids. Although CT A/P non-con at OSH was reported normal, still meets criteria for acute pancreatitis. Patient has had similar episode in May where transaminitis was noted, it was unclear whether it was 2/2 shock or union representative of true cholangitis. With elevated bilirubin, leukocytosis and RUQ pain some c/f cholangitis as well. Normal triglycerides. Cholestatic pattern of injury. Lipase downtrended now 462. LFTs downtrending. Liver could have microinfarcts from shock as well. - GI following appreciate recs, MRCP w/o ductal dilation, no endoscopic plans for now, possible had passed stone +/- c/f hepatic abscess as below. Abx per ID. Will refer for OP GI follow up with consideration of outpatient endoscopic evaluation. Signed off. - s/p maintenance IVF Assessment & Plan (09/18/2025 2:44 PM EDT): Patient presented with acute abdominal pain and back pain, somewhat radiating, lipase ~3998 at OSH. Got fluid resuscitation per sepsis fluids. Although CT A/P non-con at OSH was reported normal, still meets criteria for acute pancreatitis. Patient has had similar episode in May where transaminitis was noted, it was unclear whether it was 2/2 shock or union representative of true cholangitis. With elevated bilirubin, leukocytosis and RUQ pain some c/f cholangitis as well. Normal triglycerides. Cholestatic pattern of injury. Lipase downtrended now 462. LFTs downtrending. - GI following appreciate recs, MRCP w/o ductal dilation, no endoscopic plans, possible had passed stone +/- c/f hepatic abscess as below. Infarcts in the liver could be from shock. - s/p maintenance IVF Assessment & Plan (09/17/2025 5:52 PM EDT): #C/f hepatic abscesses #C/f cholangitis Patient p/w acute abdominal pain and back pain, somewhat radiating, lipase ~3998 at OSH. Got fluid resuscitation per sepsis fluids. Although CT A/P non-con at OSH was reported normal, still meets criteria for acute pancreatitis. Patient has had similar episode in May where transaminitis was noted, it was unclear whether it was 2/2 shock or union representative of true cholangitis. With elevated bilirubin, leukocytosis and RUQ pain some c/f cholangitis as well. Normal triglycerides. Cholestatic pattern of injury. Lipase downtrended now 462. LFTs downtrending. - GI following appreciate recs, MRCP w/o ductal dilation, no endoscopic plans, possible had passed stone +/- c/f hepatic abscess as below - s/p maintenance IVF: additional 1L normosol over 10 hr today Assessment & Plan (05/27/2025 4:09 PM EDT): Most likely ischemic hepatitis. Gallstone passage also possible (elevated total bili). Imaging w/o overt cause. GI followed and [facility] for advanced imaging/dx evaluation. Also considered role of statin. - Hold statin for now Simple chronic bronchitis 05/27/2025 APARNA (obstructive sleep apnea) 05/27/2025 Assessment & Plan (09/21/2025 7:41 AM EDT): Suspected, noted in chart, not on CPAP/BiPAP. -outpatient sleep study Assessment & Plan (09/20/2025 8:54 PM EDT): Suspected, noted in chart, not on CPAP/BiPAP. -outpatient sleep study Assessment & Plan (09/19/2025 4:13 PM EDT): Suspected, noted in chart, not on CPAP/BiPAP. -outpatient sleep study Assessment & Plan (09/18/2025 7:23 AM EDT): Suspected, noted in chart, not on CPAP/BiPAP. -outpatient sleep study Assessment & Plan (09/17/2025 5:52 PM EDT): Suspected, noted in chart, not on CPAP/BiPAP. -outpatient sleep study Assessment & Plan (05/27/2025 4:09 PM EDT): - OP sleep study Acute metabolic encephalopathy 05/27/2025 Assessment & Plan (05/27/2025 4:09 PM EDT): OARRS reviewed -- Lorazepam 0.5 mg (60 tablets) filled 01/18/25, though takes infrequently PRN. Acute met. Encephalopathy most likely hospital-acquired delirium iso acute illness. Given HD stability, adding delirium precautions. - Holding home ativan - Hydroxyzine 10 mg BID PRN for anxiety HFimpEF 05/27/2025 Assessment & Plan (09/21/2025 3:40 PM EDT): Home GDMT: Entresto 24-26 BID. Spironolactone (unsure if she has been taking it) 2/2 Takotsubo cardiomyopathy. Not in acute exacerbation. TTE 09/15/25 w/improved EF 60-65%. - Continue Coreg 3.125 BID, Entresto AM, aldactone PM with hold parameter if SBP<100 - BP is well controlled with all her GDMTs. - Continue to hold home lasix Assessment & Plan (09/20/2025 8:54 PM EDT): Home GDMT: Entresto 24-26 BID. Spironolactone (unsure if she has been taking it) 2/2 Takotsubo cardiomyopathy. Not in acute exacerbation. TTE 09/15/25 w/improved EF 60-65%. Patient was mildly hypotensive last night (lowest 92/55) . Will hold home GDMT for now, - Continue Coreg 3.125 BID - Restart Entresto AM, aldactone PM with hold parameter if SBP<100 - Hold home lasix Assessment & Plan (09/19/2025 4:13 PM EDT): Home GDMT: Entresto 24-26 BID. Spironolactone (unsure if she has been taking it) 2/2 Takotsubo cardiomyopathy. Not in acute exacerbation. TTE 09/15/25 w/improved EF 60-65%. Patient was mildly hypotensive last night (lowest 92/55) . Will hold home GDMT for now, - Continue Coreg 3.125 BID - Get Orthostatic vitals - Hold home lasix Assessment & Plan (09/18/2025 4:05 PM EDT): Home GDMT: Entresto 24-26 BID. Spironolactone (unsure if she has been taking it) 2/2 Takotsubo cardiomyopathy. Not in acute exacerbation. TTE 09/15/25 w/improved EF 60-65%. Patient was mildly hypotensive last night (lowest 92/55) . Will hold home GDMT for now, - Continue Coreg 3.125 BID - Get Orthostatic vitals - Hold home lasix Assessment & Plan (09/17/2025 5:52 PM EDT): 2/2 Takotsubo cardiomyopathy. Not in acute exacerbation. TTE 09/15/25 w/improved EF 60%. - Hold GDMT: Entresto 24-26 BID. Spironolactone (unsure if she has been taking it) -Restart Coreg 3.125 BID tonight - Hold home lasix Assessment & Plan (05/27/2025 4:09 PM EDT): [...] stability -- will consider SGLT2i upon discharge Constipation 05/27/2025 Assessment & Plan (09/21/2025 7:41 AM EDT): -Miralax BID, senna increased to 2 tablets BID Assessment & Plan (09/20/2025 8:54 PM EDT): -Miralax BID, senna increased to 2 tablets BID Assessment & Plan (09/19/2025 4:13 PM EDT): -Miralax BID, senna increased to 2 tablets BID Assessment & Plan (05/27/2025 4:09 PM EDT): Intermittent BRBPR 1 month [employer]. - Hold home linzess resume upon DC - Miralax to BID + Senna scheduled QHS (no BM 2 days) - Suppository tomorrow if no BM Chronic back+knee pain with R-sided sciatica 02/2025 Assessment & Plan (09/21/2025 7:41 AM EDT): -holding home celecoxib in hospitall, could resume when BP more stable -continue home duloxetine and gabapentin -Tylenol PRN Assessment & Plan (09/20/2025 8:54 PM EDT): -holding home celecoxib in hospitall, could resume when BP more stable -continue home duloxetine and gabapentin -Tylenol PRN Assessment & Plan (09/19/2025 4:13 PM EDT): -holding home celecoxib in hospitall, could resume when BP more stable -continue home duloxetine and gabapentin -Tylenol PRN Assessment & Plan (09/18/2025 7:23 AM EDT): -holding home celecoxib in hospitall, could resume when BP more stable -continue home duloxetine and gabapentin -Tylenol PRN Assessment & Plan (09/17/2025 5:52 PM EDT): -holding home celecoxib in hospitall, could resume when BP more stable -continue home duloxetine and gabapentin -Tylenol PRN Assessment & Plan (05/27/2025 4:11 PM EDT): On Tramadol 50 mg daily, gabapentin 100 mg TID, cymbalta 60 mg daily. IV Dilaudid given in MICU. - Home tramadol, gabapentin held d/t no active rx, cymbalta - Resuming Celecoxib (FER resolved) - Scheduled Tylenol + Robaxin and 2.5 mg Q6 Oxy PRN Septic shock, resolved 05/25/2025 Assessment & Plan (09/21/2025 3:40 PM EDT): OSH workup showed elevated lactate with associated hypotension, iso leukocytosis upto 45 with neutrophilic shift, overall concerning for septic shock. Confirmed E coli positive urine and blood cultures from OSH. Also considering cholangitis vs pancreatitis. Not concerned for cardiogenic shock given preserved EF on formal TTE. Not concerned for hemorrhagic shock due to no apparent bleeding. S/p 2 L IVF here, plus additional at OSH, meeting 30cc/kg. Lactate downtrended with initiation of pressors. Weaned off levo, bumped out to medicine. Sed rate was elevated. -MAP Goal >65, currently off pressors on floor -Primary team was able to call and confirm with [facility] lab that blood cx and urine cx both with E. Coli susceptible to Zosyn, media tab has the faxed records of the blood cx, unfortunately the urine cx data sent was for the NGTD culture instead of the original cx showing E. Coli. -Repeat blood culture at [facility] NGTD - ID is following Assessment & Plan (09/20/2025 8:54 PM EDT): OSH workup showed elevated lactate with associated hypotension, iso leukocytosis upto 45 with neutrophilic shift, overall concerning for septic shock. Confirmed E coli positive urine and blood cultures from OSH. Also considering cholangitis vs pancreatitis. Not concerned for cardiogenic shock given preserved EF on formal TTE. Not concerned for hemorrhagic shock due to no apparent bleeding. S/p 2 L IVF here, plus additional at OSH, meeting 30cc/kg. Lactate downtrended with initiation of pressors. Weaned off levo, bumped out to medicine. Sed rate was elevated. -MAP Goal >65, currently off pressors on floor -Primary team was able to call and confirm with [facility] lab that blood cx and urine cx both with E. Coli susceptible to Zosyn, media tab has the faxed records of the blood cx, unfortunately the urine cx data sent was for the NGTD culture instead of the original cx showing E. coli -ID consulted for duration of abx Continue the use of Zosyn to complete 4 weeks course EOT 10/14/2025, could transition to PO Augmentin after 4 weeks of IV therapy, total 6 weeks Urology consultation for history of recurrent UTI and thickening of the bladder on imaging - primary team will plan to do Outpatient referral Follow up labs weekly CBC.diff, ESR, CRP, CMP and fax labs to [facility] at [phone] PICC line care weekly - primary team ordered PICC consult Will arrange IDC follow up. -Repeat blood culture at [facility] Assessment & Plan (09/19/2025 4:13 PM EDT): OSH workup showed elevated lactate with associated hypotension, iso leukocytosis upto 45 with neutrophilic shift, overall concerning for septic shock. Confirmed E coli positive urine and blood cultures from OSH. Also considering cholangitis vs pancreatitis. Not concerned for cardiogenic shock given preserved EF on formal TTE. Not concerned for hemorrhagic shock due to no apparent bleeding. S/p 2 L IVF here, plus additional at OSH, meeting 30cc/kg. Lactate downtrended with initiation of pressors. Weaned off levo, bumped out to medicine. Sed rate was elevated. -MAP Goal >65, currently off pressors on floor -Primary team was able to call and confirm with [facility] lab that blood cx and urine cx both with E. Coli susceptible to Zosyn, media tab has the faxed records of the blood cx, unfortunately the urine cx data sent was for the NGTD culture instead of the original cx showing E. coli -ID consulted for duration of abx Continue the use of Zosyn to complete 4 weeks course EOT 10/14/2025, could transition to PO Augmentin after 4 weeks of IV therapy, total 6 weeks Urology consultation for history of recurrent UTI and thickening of the bladder on imaging - primary team will plan to do Outpatient referral Follow up labs weekly CBC.diff, ESR, CRP, CMP and fax labs to [facility] at [phone] PICC line care weekly - primary team ordered PICC consult Will arrange IDC follow up. -Repeat blood culture at [facility] Assessment & Plan (09/18/2025 4:05 PM EDT): OSH workup showed elevated lactate with associated hypotension, iso leukocytosis upto 45 with neutrophilic shift, overall concerning for septic shock. Confirmed E coli positive urine and blood cultures from OSH. Also considering cholangitis vs pancreatitis. Not concerned for cardiogenic shock given preserved EF on formal TTE. Not concerned for hemorrhagic shock due to no apparent bleeding. S/p 2 L IVF here, plus additional at OSH, meeting 30cc/kg. Lactate downtrended with initiation of pressors. Weaned off levo, bumped out to medicine. Sed rate was elevated. -MAP Goal >65, currently off pressors on floor -Continue Zosyn -ID consulted for duration of abx, note pending -discussed in person that if true liver abscesses, then need 4-6 weeks abx -would like to get the true urine culture data from the outside hospital, -MICU called [facility] but was not able to get info. We will call the hospital tomorrow. -Repeat blood culture yesterday- NGTD Assessment & Plan (09/17/2025 5:52 PM EDT): OSH workup showed elevated lactate with associated hypotension, iso leukocytosis upto 45 with neutrophilic shift, overall concerning for septic shock. Confirmed E coli positive urine and blood cultures from OSH. Also considering cholangitis vs pancreatitis. Not concerned for cardiogenic shock given preserved EF on formal TTE. Not concerned for hemorrhagic shock due to no apparent bleeding. S/p 2 L IVF here, plus additional at OSH, meeting 30cc/kg. Lactate downtrended with initiation of pressors. GI consulted-MRCP with c/f hepatic abscess, unlikely to be percutaneously or endoscopically drained, largest 1.5cm. Could be small infarcts in the liver from shock. Weaned off levo, bumped out to medicine. -MAP Goal >65, currently off pressors on floor -continue Zosyn -ID consulted for duration of abx, note pending -discussed in person that if true liver abscesses, then need 4-6 weeks abx -would like to get the true urine culture data from the outside hospital, MICU called [facility] but was not able to get info -repeat blood cx Assessment & Plan (05/27/2025 4:09 PM EDT): No isolated soruce of infection. Cholangitis with stone passage (rapid improvement) vs. CAP strep pneumonia. Downtrending neutrophilic-predominant leukocytosis. - Strep pneumo + legionella Urine ag - Abx: - Zosyn (7-) - Based on above studies, de-escalate for total Abx course of 7 days (IV or PO) Chronic diastolic (congestive) heart failure 06/2024 Coronary artery disease invo lving telida coronary artery of telida heart without angina pectoris 02/26/2023 Assessment & Plan (09/21/2025 7:41 AM EDT): No acute concerns. On atorvastatin 40mg at home. - Continue ASA Assessment & Plan (09/20/2025 8:54 PM EDT): No acute concerns. On atorvastatin 40mg at home. - Continue ASA Assessment & Plan (09/19/2025 4:13 PM EDT): No acute concerns. On atorvastatin 40mg at home. - Continue ASA Assessment & Plan (09/18/2025 4:05 PM EDT): No acute concerns. On atorvastatin 40mg at home. - Continue ASA Assessment & Plan (09/17/2025 5:52 PM EDT): No acute concerns. - Continue ASA + statin Assessment & Plan (05/27/2025 4:09 PM EDT): [...] discharge Chronic anxiety 05/02/2022 Assessment & Plan (09/21/2025 7:41 AM EDT): -continue home duloxetine and atarax Assessment & Plan (09/20/2025 8:54 PM EDT): -continue home duloxetine and atarax Assessment & Plan (09/19/2025 4:13 PM EDT): -continue home duloxetine and atarax Assessment & Plan (09/18/2025 7:23 AM EDT): -continue home duloxetine and atarax Assessment & Plan (09/17/2025 5:52 PM EDT): -continue home duloxetine and atarax Assessment & Plan (05/27/2025 4:09 PM EDT): OARRS reviewed -- Lorazepam 0.5 mg (60 tablets) filled 01/18/25, though takes infrequently PRN. Acute met. Encephalopathy most likely hospital-acquired delirium iso acute illness. Given HD stability, adding delirium precautions. - Holding home ativan - Hydroxyzine 10 mg BID PRN for anxiety Gastroesophageal reflux disease without esophagi tis 05/02/2022 Assessment & Plan (09/21/2025 7:41 AM EDT): Home regimen: omeprazole -Continue TI pantoprazole 40 Assessment & Plan (09/20/2025 8:54 PM EDT): Home regimen: omeprazole -Continue TI pantoprazole 40 Assessment & Plan (09/19/2025 4:13 PM EDT): Home regimen: omeprazole -Continue TI pantoprazole 40 Assessment & Plan (09/18/2025 7:23 AM EDT): Home regimen: omeprazole -Continue TI pantoprazole 40 Assessment & Plan (09/17/2025 5:52 PM EDT): Home regimen: omeprazole -Continue TI pantoprazole 40 Assessment & Plan (05/27/2025 4:09 PM EDT): Protonix TI Mastocytosis 10/14/2017 COPD (chronic obstructive pulmonary disease) Assessment & Plan (09/21/2025 7:41 AM EDT): On RA at baseline, vitally stable since admission. Not concerned for COPD exacerbation. Desatted to 86, required 2L NC overnight. - home LAMA, LABA, ICS Assessment & Plan (09/20/2025 8:54 PM EDT): On RA at baseline, vitally stable since admission. Not concerned for COPD exacerbation. Desatted to 86, required 2L NC overnight. - home LAMA, LABA, ICS Assessment & Plan (09/19/2025 4:13 PM EDT): On RA at baseline, vitally stable since admission. Not concerned for COPD exacerbation. Desatted to 86, required 2L NC overnight. - home LAMA, LABA, ICS Assessment & Plan (09/18/2025 7:23 AM EDT): On RA at baseline, vitally stable since admission. Not concerned for COPD exacerbation. Desatted to 86, required 2L NC overnight. - home LAMA, LABA, ICS Assessment & Plan (09/17/2025 5:52 PM EDT): On RA at baseline, vitally stable since admission. Not concerned for COPD exacerbation. Desatted to 86, required 2L NC overnight. - home LAMA, LABA, ICS Resolved Problems Problem Noted Date Diagnosed Date Resolved Date FER (acute kidney injury) 05/27/2025 Assessment & Plan (09/17/2025 5:52 PM EDT): Likely from septic shock/urosepsis. -continue to monitor renal panel Acute respiratory failure with hypoxia 05/27/2025 09/17/2025 Assessment & Plan (05/27/2025 4:09 PM EDT): No isolated soruce of infection. Cholangitis with stone passage (rapid improvement) vs. CAP strep pneumonia. Downtrending neutrophilic-predominant leukocytosis. - Strep pneumo + legionella Urine ag - Abx: - Zosyn (05/25-) - Based on above studies, de-escalate for total Abx course of 7 days (IV or PO) Acute non-ST segment elevati on myocardial infarction 02/26/2023 05/25/2025 Stress-induced cardiomyopathy 02/26/2023 05/25/2025 Encounters Date Type Department Care Team Description 10/04/2025 Telephone [facility] I[facility] at [facility] [address] [facility] [address] [place] [address] Bruno Nunez Appointment 09/20/2025 Telephone [facility] Gastroenterology at [facility] [address] [facility] [address] [place] [id number] Blaine Peña MD Appointment 09/16/2025 12:41 PM EDT - 09/16/2025 11:59 PM EDT Hospital Encounter [facility] Radiology [address] [place] [address] System, Provider Not In Willem Shin, Discharge Disposition: Home or Self Care WITHOUT Home Care Services 09/16/2025 12:41 PM EDT - 09/16/2025 11:59 PM EDT Hospital Encounter [facility] Radiology [address] [place] [address] System, Provider Not In Willem Shin, Discharge Disposition: Home or Self Care WITHOUT Home Care Services 09/16/2025 12:41 PM EDT - 09/16/2025 11:59 PM EDT Hospital Encounter [facility] Radiology [address] [place] [address] System, Provider Not In Willem Shin, Discharge Disposition: Home or Self Care WITHOUT Home Care Services 09/16/2025 12:39 PM EDT - 09/16/2025 12:40 PM EDT Hospital Encounter [facility] Radiology [address] [place] [address] System, Provider Not In Willem Shin, DO Discharge Disposition: Home or Self Care WITHOUT Home Care Services 09/16/2025 12:39 PM EDT - 09/16/2025 12:40 PM EDT Hospital Encounter [facility] Radiology [address] [place] [address] System, Provider Not In Willem Shin, Discharge Disposition: Home or Self Care WITHOUT Home Care Services 09/16/2025 12:39 PM EDT - 09/16/2025 12:40 PM EDT Hospital Encounter [facility] Radiology [address] [place] [address] System, Provider Not In Willem Shin DO Discharge Disposition: Home or Self Care WITHOUT Home Care Services 09/16/2025 12:39 PM EDT - 09/16/2025 12:40 PM EDT Hospital Encounter [facility] Radiology [address] [place] [address] System, Provider Not In Willem Shin, Discharge Disposition: Home or Self Care WITHOUT Home Care Services 09/15/2025 3:51 PM EDT Anesthesia Event [facility] ENDOSCOPY [address] [place] [address] Derrek Nelson MD 09/15/2025 Surgery [facility] ENDOSCOPY [address] [place] [address] Blaine Peña MD PROCEDURE NOT PERFORMED 09/14/2025 8:26 PM EDT - 09/22/2025 6:20 PM EDT Hospital Encounter [facility] [address] [place] [address] Monty Mahan MD Stickles, MD Tamiko Flores Arshia, MD Ramser, Evan Lynn, Cystitis (Primary Dx); Bacteremia; Sepsis due to Escherichia coli with acute organ dysfunction and septic shock, unspecified organ dysfunction type ([facility]) Discharge Disposition: Home WITH Home Health Care Services 09/14/2025 Orders Only EXTERNAL PROV RESULTS [address] [place] [address] System, Provider Not In 09/14/2025 Travel 09/12/2025 Orders Only EXTERNAL PROV RESULTS [address] [place] [address] System, Provider Not In from Last 3 Months Immunizations Immunization Administration Dates Next Due tdap 01/24/2024 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 Tobacco Use Types Packs/Day Years Used Date Smoking Tobacco: Former Cigarettes Smokeless Tobacco: Never Tobacco Cessation:Counseling Given: Not Answered Comments:Former 2 PPD cigarette smoker, quit ~2004 Alcohol Use Standard Drinks/Week Comments No 0 (1 standard drink = 0.6 oz pur e alcohol) [facility] Utilities Answer Date Recorded In the past 12 months has th e [employer], gas, oil, or water company threatened to [...] in a senior living (including now)? No 09/14/2025 Comments No Sex and Gender Information Value Date Recorded Sex Assigned at Not on file Legal Sex Female 11:13 AM EST Gender Identity Not on file Sexual Orientation Not on file Last Filed Vital Signs Vital Sign Reading Time Taken Comments Blood Pressure 122/67 09/22/2025 3:26 PM EDT Pulse 82 09/22/2025 3:26 PM EDT Temperature 37.1 C (98.8 F) 09/22/2025 3:26 PM EDT Respiratory Rate 17 09/22/2025 3:26 PM EDT Oxygen Saturation 96% 09/22/2025 3:26 PM EDT Inhaled Oxygen Concentration 96% 09/22/2025 3 :26 PM EDT Weight 105.4 kg (232 lb 5.8 oz) 09/14/2025 9:06 PM EDT Height 165.1 cm (5' 5 ) 09/14/2025 8:34 PM EDT Body Mass Index 38.67 09/14/2025 8:34 PM EDT Plan of Treatment Health Maintenance Due Date Last Done Comments Abnormal Colonoscopy Follow Up 1959 Diabetes Screening 1959 Pulmonary Function Testing 1959 Depression Screening 1977 Immunization: Pneumococcal (1 of 2 - PCV) 1978 Mammogram (MyChart) 1999 Cologuard (FIT-DNA) 2004 Colonoscopy 2004 Colorectal Cancer Screening (MyChart) 2004 Stool Testing (gFOBT) 2004 Immunization: RSV (Adult) (1 - Risk 50-74 years 1-dose series) 2009 Immunization: Zoster (1 of 2) 2009 Lung Cancer Screening 2009 Osteoporosis Screening (DXA Scan) 2009 Immunization: COVID-19 ( - season) 2025 Immunization: Influenza (MyChart) (#1) 2025 Immunization: DTaP/Tdap/Td (2 - Td or Tdap) 01/23/2034 01/24/2024 Hepatitis C Screening (gumihart) Completed Procedures Procedure Name Priority Date/Time Associated Diagnosis Comments EKG - SCAN 09/23/2025 12:09 PM EDT HEPATIC FUNCTION PANEL Routine 6:54 AM EDT CBC Routine 09/22/2025 6:54 AM EDT RENAL FUNCTION PANEL W/EGFR Routine 08/26 6:54 AM EDT MAGNESIUM Routine 09/22/2025 6:54 AM EDT HEPATIC FUNCTION PANEL Routine 3:20 AM EDT CBC Routine 09/21/2025 3:20 AM EDT RENAL FUNCTION PANEL W/EGFR Routine 08/25 3:20 AM EDT MAGNESIUM Routine 09/21/2025 3:20 AM EDT HEPATIC FUNCTION PANEL Routine 4:16 AM EDT CBC Routine 09/20/2025 4:16 AM EDT RENAL FUNCTION PANEL W/EGFR Routine 08/25 4:16 AM EDT MAGNESIUM Routine 09/20/2025 4:16 AM EDT INSERT PICC LINE Routine 09/19/2025 4:48 PM EDT CBC Routine 09/19/2025 6:50 AM EDT RENAL FUNCTION PANEL W/EGFR Routine 08/25 6:50 AM EDT MAGNESIUM Routine 09/19/2025 6:50 AM EDT SED RATE Routine 09/18/2025 3:24 PM EDT DIFFERENTIAL Routine 09/18/2025 3:24 PM EDT CBC Routine 09/18/2025 3:24 PM EDT PROTIME-INR Routine 09/18/2025 3:24 PM EDT C-REACTIVE PROTEIN Routine 09/18/2025 4: 05 AM EDT MAGNESIUM Routine 09/18/2025 4:05 AM EDT RENAL FUNCTION PANEL W/EGFR Routine 08/25 4:05 AM EDT HEPATIC FUNCTION PANEL Routine 4:05 AM EDT BLOOD CULTURE-PERIPHERAL Routine 025 4:37 PM EDT BLOOD CULTURE-PERIPHERAL Routine 025 4:37 PM EDT DIFFERENTIAL Routine 09/17/2025 6:27 AM EDT CBC Routine 09/17/2025 6:27 AM EDT MAGNESIUM Routine 09/17/2025 6:27 AM EDT RENAL FUNCTION PANEL W/EGFR Routine 08/25 6:27 AM EDT PROTIME-INR Routine 09/17/2025 6:27 AM EDT HEPATIC FUNCTION PANEL Routine 6:27 AM EDT YAHAIRA RHYTHM STRIP - SCAN 09/16/20 11:30 PM EDT POC GLU MONITORING DEVICE Routine 2024 4:13 PM EDT VENOUS BLOOD GAS, LINE/SYRINGE STAT 1 4:[address] ABDOMEN AND OR PELVIS OUTSIDE EXAM Routine 09/16/2025 12:[address] ABDOMEN AND OR PELVIS OUTSIDE EXAM Routine 09/16/2025 12:[address] ABDOMEN AND OR PELVIS OUTSIDE EXAM Routine 09/16/2025 12:[address] ABDOMEN AND OR PELVIS OUTSIDE EXAM Routine 09/16/2025 12:[address] ABDOMEN AND OR PELVIS OUTSIDE EXAM Routine 09/16/2025 12:[address] ABDOMEN AND OR PELVIS OUTSIDE EXAM Routine 09/16/2025 12:[address] ABDOMEN AND OR PELVIS OUTSIDE EXAM Routine 09/16/2025 12:39 PM EDT YAHAIRA RHYTHM STRIP - SCAN 09/16/20 10:45 AM EDT HEPATIC FUNCTION PANEL Routine 3:44 AM EDT PROTIME-INR Routine 09/16/2025 3:44 AM EDT RENAL FUNCTION PANEL W/EGFR Routine 08/25 3:44 AM EDT MAGNESIUM Routine 09/16/2025 3:44 AM EDT CBC Routine 09/16/2025 3:44 AM EDT MRI CHOLANGIOPANCREATOGRAPHY Routine 12:26 AM EDT GAMMA GT Routine 09/15/2025 3:07 PM EDT HAPTOGLOBIN Routine 09/15/2025 3:07 PM EDT LACTATE DEHYDROGENASE STAT 09/15/2025 3:07 PM EDT XR PORTABLE CHEST STAT 09/15/2025 3:0 3 PM EDT US ABDOMEN COMPLETE Routine 09/15/2025 2 :33 PM EDT INSERT ARTERIAL LINE Routine 09/15/2025 2:18 PM EDT CENTRAL LINE Routine 09/15/2025 1:49 PM EDT VANCOMYCIN, RANDOM Routine 09/15/2025 9: 34 AM EDT ECHO COMPLETE W/ CONTRAST Routine 2024 8:42 AM EDT TRIGLYCERIDES Routine 09/15/2025 4:55 AM EDT LIPID PANEL Routine 09/15/2025 4:55 AM EDT RENAL FUNCTION PANEL W/EGFR Routine 08/25 4:55 AM EDT MAGNESIUM Routine 09/15/2025 4:55 AM EDT CBC Routine 09/15/2025 4:55 AM EDT PROTIME-INR Routine 09/15/2025 4:55 AM EDT HEPATIC FUNCTION PANEL Routine 4:55 AM EDT MRSA/STAPH AUREUS DNA - DIAGNOSTIC TESTING FOR PNEUMONIA Routine 09/15/2025 4:55 AM EDT YAHAIRA RHYTHM STRIP - SCAN 09/15/20 3:49 AM EDT ECG 12-LEAD (MUSE) STAT 09/14/2025 9: 35 PM EDT XR PORTABLE CHEST Routine 09/14/2025 9:1 5 PM EDT B NATRIURETIC PEPTIDE Routine 09/14/2025 9:13 PM EDT HIGH SENSITIVITY TROPONIN STAT 2024 9:13 PM EDT INFLUENZA A AND B, COVID, RS V COMBINATION ASSAY, ANU STAT 09/14/2025 9:13 PM EDT URINE CULTURE Routine 09/14/2025 9:13 PM EDT VENOUS BLOOD GAS, LINE/SYRINGE STAT 1 8:55 PM EDT URINALYSIS W/RFL TO MICROSCOPIC Routine 09/14/2025 8:42 PM EDT VANCOMYCIN, RANDOM STAT 09/14/2025 8: 38 PM EDT PROTIME-INR STAT 09/14/2025 8:38 PM EDT HEPATIC FUNCTION PANEL STAT 8:38 PM EDT LIPASE STAT 09/14/2025 8:38 PM EDT LACTIC ACID STAT 09/14/2025 8:38 PM EDT MAGNESIUM STAT 09/14/2025 8:38 PM EDT RENAL FUNCTION PANEL W/EGFR STAT 08/25 8:38 PM EDT CBC STAT 09/14/2025 8:38 PM EDT HEPATITIS C ANTIBODY Routine 05/26/2025 3:02 PM EDT PROCEDURE NOT PERFORMED from Last 3 Months or Most Recently Relevant to Health Maintenance Results * EKG - scan (09/23/2025 12:09 PM EDT) us Scanning Uchhim SCAN DOCS - NO RESULTS Final Res ult * (ABNORMAL) Hepatic Function Panel, AM (09/22/2025 6:54 AM EDT) Only the most recent of8 resultswithin the time period is included. Total Bilirubin 0.5 0.0 - 1.5 mg/dL 09/22/2025 7:48 AM EDT [facility] Bilirubin, Direct 0.15 0.00 - 0.40 mg/dL 09/22/2025 7:48 AM EDT [facility] AST 14 13 - 39 U/L 09/22/2025 7:48 AM EDT [facility] ALT 22 7 - 52 U/L 09/22/2025 7:48 AM EDT [facility] Alkaline Phosphatase 309(H) 36 - 125 U/L 09/22/2025 7:48 AM EDT [facility] Total Protein 6.3(L) 6.4 - 8.9 g/dL 09/22/2025 7:48 AM EDT [facility] Albumin 2.6(L) 3.5 - 5.7 g/dL 09/22/2025 7:48 AM EDT [facility] Bilirubin, Indirect 0.35 0.00 - 1.10 mg/dL 09/22/2025 7:48 AM EDT [facility] Plasma 09/22/2025 6:54 AM EDT 09/22/2025 7:07 AM EDT us Christiana Benites MD LAB BLOOD ORDERABLES Final Res ult [facility] [address] [place] [address], [facility] * (ABNORMAL) Renal Function Panel w/EGFR (09/22/2025 6:54 AM EDT) Only the most recent of9 resultswithin the time period is included. Sodium 139 133 - 146 mmol/L 09/22/2025 7:48 AM EDT [facility] Potassium 3.9 3.5 - 5.3 mmol/L 09/22/2025 7:48 AM EDT [facility] Chloride 106 98 - 110 mmol/L 09/22/2025 7:48 AM EDT [facility] CO2 25 21 - 33 mmol/L 09/22/2025 7:48 AM EDT [facility] Comment:High lactate dehydro genase concentrations in patient samples may cause falsely increased bicarbonate results. If markedly elevated LDH is observed or suspected, please assess results in conjunction with patient`s clinical presentation. In cases of discrepant results, consider evaluating CO2 in with a blood gas order. Anion Gap 8 3 - 16 mmol/L 09/22/2025 7:48 AM EDT [facility] BUN 6(L) 7 - 25 mg/dL 09/22/2025 7:48 AM T [facility] Creatinine 0.50(L) 0.60 - 1.30 mg/dL 09/22/2025 7:48 AM EDT [facility] Glucose 90 70 - 100 mg/dL 09/22/2025 7:48 AM T [facility] Calcium 8.2(L) 8.6 - 10.3 mg/dL 09/22/2025 7:48 AM T [facility] Phosphorus 3.8 2.1 - 4.5 mg/dL 09/22/2025 7:48 AM [facility] Albumin 2.6(L) 3.5 - 5.7 g/dL 09/22/2025 7:48 AM T [facility] Osmolality, Calculated 285 278 - 305 mOsm/kg 09/22/2025 7:48 AM EDT [facility] EGFR >90 09/22/2025 7:48 AM [facility] Comment: As of 2022, the [...] renal disease. For additional information: www.kidney.org Plasma 09/22/2025 6:54 AM EDT 09/22/2025 7:07 AM EDT us Christiana Benites MD LAB BLOOD ORDERABLES Final Res ult [facility] [address] [place] [address], [facility] * (ABNORMAL) CBC (09/22/2025 6:54 AM EDT) Only the most recent of9 resultswithin the time period is included. WBC 10.3 3.8 - 10.8 10E3/uL 09/22/2025 7:35 AM EDT [facility] RBC 2.88(L) 3.80 - 5.10 10E6/uL 09/22/2025 7:35 AM EDT [facility] Hemoglobin 8.6(L) 11.7 - 15.5 g/dL 09/22/2025 7:35 AM EDT [facility] Hematocrit 25.7(L) 35.0 - 45.0 % 09/22/2025 7:35 AM EDT [facility] MCV 89.4 80.0 - 100.0 fL 09/22/2025 7:35 AM EDT [facility] MCH 29.9 27.0 - 33.0 pg 09/22/2025 7:35 AM EDT [facility] MCHC 33.4 32.0 - 36.0 g/dL 09/22/2025 7:35 AM EDT [facility] RDW 19.1(H) 11.0 - 15.0 % 09/22/2025 7:35 AM EDT [facility] Platelets 391 140 - 400 10E3/uL 09/22/2025 7:35 AM EDT [facility] MPV 8.4 7.5 - 11.5 fL 09/22/2025 7:35 AM EDT [facility] Whole Blood 09/22/2025 6:54 AM EDT 09/22/2025 7:07 AM EDT us Christiana Benites MD LAB BLOOD ORDERABLES Final Res ult [facility] [address] * Magnesium (09/22/2025 6:54 AM EDT) Only the most recent of9 resultswithin the time period is included. Magnesium 1.8 1.5 - 2.5 mg/dL 09/22/2025 7:48 AM EDT [facility] Plasma 09/22/2025 6:54 AM EDT 09/22/2025 7:07 AM EDT Christiana Benites MD LAB BLOOD ORDERABLES Final Res ult Performing Organization Address [facility] Co de Phone Number [facility] [address] [facility]. [address] * Insert PICC line (09/19/2025 4:48 PM EDT) Narrative Beatrice Espinal RN - 09/19/2025 4:48 PM EDT Beatrice Espinal RN 09/19/2025 4:50 PM Insert PICC line Date/Time: 09/19/2025 4:48 PM Performed by: Beatrice Espinal RN Authorized by: Marisol Lovett MD Hye Protocol: Verbal consent obtained?: Yes Written consent obtained?: Yes Risks and benefits: Risks, benefits and alternatives were discussed Consent given by: Patient Patient states understanding of procedure being performed: Yes Patient's understanding of procedure matches consent: Yes Procedure consent matches procedure scheduled: Yes Relevant documents present and verified: Yes Test results available and properly labeled: Yes Site marked: Yes Imaging studies available: Yes Required items: Required blood products, implants, devices and special equipment available Patient identity confirmed: Verbally with patient, arm band, provided demographic data and hospital-assigned identification number Time out: Immediately prior to the procedure a time out was called A time out verifies correct patient, procedure, equipment, operations support professionals and site/side marked as required: Preparation: Preparation: Patient was prepped and draped in usual sterile fashion Site: brachial vein Local anesthesia used?: Yes Anesthesia: Local infiltration Local anesthetic: Lidocaine 1% without epinephrine Anesthetic total (ml): 3 Patient sedated: No Post-procedure: Patient tolerance: Patient tolerated the procedure well with no immediate complications Patient educated re: s/s of infection/prevention, potential complications & risks associated with central access. Written materials left at the bedside. LYNN CROFT PICC, 46/0, Brachial. Guidewire removed post PICC placement: Yes us Marisol Lovett MD IV THERAPY ORDERABLE S Final Result * (ABNORMAL) Sed Rate (09/18/2025 3:24 PM EDT) Sed Rate 106(H) 0 - 30 mm/hr 09/18/2025 4:26 PM EDT [facility] Whole Blood 09/18/2025 3:24 PM EDT 09/18/2025 3:29 PM EDT us Madeleine Phillips MD LAB BLOOD ORDERABLES Final Res ult [facility] [address] * (ABNORMAL) Differential (09/18/2025 3:24 PM EDT) Only the most recent of2 resultswithin the time period is included. Scan Result PERFORMED 09/18/2025 4:35 PM EDT [facility] Neutrophils Relative 76.0 40.0 - 80.0 % 09/18/2025 4:35 PM EDT [facility] Lymphocytes Relative 8.0(L) 15.0 - 45.0 % 09/18/2025 4:35 PM EDT [facility] Atypical Lymphocytes Relative 1.0 0.0 - 9.0 % 09/18/2025 4:35 PM EDT [facility] Comment:Atypical lymphocyte( s)= reactive, benign, viral lymphocyte(s) Monocytes Relative 14.0(H) 0.0 - 12.0 % 09/18/2025 4:35 PM EDT [facility] Eosinophils Relative 1.0 0.0 - 8.0 % 09/18/2025 4:35 PM EDT [facility] Basophils Relative 0.0 0.0 - 1.0 % 09/18/2025 4:35 PM EDT [facility] Neutrophils Absolute 6,916 1,520 - 8,640 /uL 09/18/2025 4:35 PM EDT [facility] Lymphocytes Absolute 819 570 - 4,860 /uL 09/18/2025 4:35 PM EDT [facility] Monocytes Absolute 1,274 0 - 1,296 /uL 09/18/2025 4:35 PM EDT [facility] Eosinophils Absolute 91 0 - 864 /uL 09/18/2025 4:35 PM EDT [facility] Basophils Absolute 0 0 - 108 /uL 09/18/2025 4:35 PM EDT [facility] Whole Blood 09/18/2025 3:24 PM EDT 09/18/2025 3:29 PM EDT Narrative [facility] - 09/18/2025 4:35 PM EDT Manual WBC differential performed per review criteria approved by the medical records clerk. Pritesh Still DO LAB BLOOD ORDERABLES Final Resu lt [facility] [address] [place] [address], [facility] * Protime-INR (09/18/2025 3:24 PM EDT) Only the most recent of5 resultswithin the time period is included. Protime 12.9 12.1 - 15.1 seconds 09/18/2025 4:14 PM EDT [facility] INR 0.9 0.9 - 1.1 09/18/2025 4:14 PM EDT [facility] Comment: RECOMMENDED THERAPEUTIC RANGES USING INR : Stable oral anticoagulant therapy: 2.0 - 3.0 Mechanical prosthetic heart valve: 2.5 - 3.5 Recurrent acute myocardial infarction: 2.5 - 3.5 Plasma 09/18/2025 3:24 PM EDT 09/18/2025 3:29 PM EDT us Pritesh Mosquera DO LAB BLOOD ORDERABLES Final Resu lt [facility] [address] * (ABNORMAL) C-Reactive Protein (09/18/2025 4:05 AM EDT) [facility] CRP 172.8(H) 1.0 - 10.0 mg/L 09/18/2025 5:17 AM EDT [facility] Plasma 09/18/2025 4:05 AM EDT 09/18/2025 4:21 AM EDT us Madeleine Phillips MD LAB BLOOD ORDERABLES Final Res ult [facility] [address] [facility]. [address] * Blood culture-Peripheral (Blood) (09/17/2025 4:37 PM EDT) Only the most recent of2 resultswithin the time period is included. [facility] Culture Result No Growth After 5 Days [facility] Blood BLOOD SPECIMEN / Unknown 09/17/2025 4:37 PM EDT 09/17/2025 5:38 PM EDT Narrative [facility] - 09/22/2025 5:45 PM EDT Suboptimal volume of blood received. Interpret results with caution. us Christiana Benites MD MICROBIOLOGY - GENERAL ORDERAB LES Final Result [facility] [address] * YAHAIRA Rhythm Strip - Scan (09/16/2025 11:30 PM EDT) Only the most recent of3 resultswithin the time period is included. us Scanning Uchhim SCAN DOCS - NO RESULTS Final Res ult * (ABNORMAL) Venous Blood Gas, Line/Syringe, STAT (09/16/2025 4:13 PM EDT) Only the most recent of2 resultswithin the time period is included. [facility] PH-Line Draw 7.34 7.32 - 7.42 09/16/2025 4:22 PM EDT [facility] PCO2-Line Draw 37(L) 41 - 51 mm Hg 09/16/2025 4:22 PM EDT [facility] PO2-Line Draw 40 25 - 40 mm Hg 09/16/2025 4:22 PM EDT [facility] HCO3-Line Draw 20(L) 24 - 28 mmol/L 09/16/2025 4:22 PM EDT [facility] CO2 Content-Line Draw 21(L) 25 - 29 mmol/L 09/16/2025 4:22 PM EDT [facility] Base Excess-Line Draw -5.3(L) -2.0 - 3.0 mmol/L 09/16/2025 4:22 PM EDT [facility] %HBO2-Line Draw 73.4(H) 40.0 - 70.0 % 09/16/2025 4:22 PM EDT [facility] Carboxyhgb-Joi e Draw 1.2 % 09/16/2025 4:22 PM EDT [facility] Comment: CARBOXYHEMOGLOBIN (CO) REFERENCE RANGES: Non-Smokers: <2 % Smokers: <8 % TOXIC: >20 % Methemoglobin- Line Draw 0.0 0.0 - 1.5 % 09/16/2025 4:22 PM EDT [facility] Reduced Hemoglobin-Joi e Draw 25.5(H) 0.0 - 5.0 % 09/16/2025 4:22 PM EDT [facility] Venous, Line Draw 09/16/2025 4:13 PM EDT 09/16/2025 4:18 PM EDT us Pritesh Mosquera DO LAB BLOOD ORDERABLES Final Resu lt [facility] [address] [place] [address], [facility] * POC Glucose Monitoring Device (09/16/2025 4:13 PM EDT) [facility] POC Glucose Monitoring Device 99 70 - 100 mg/dL 09/16/2025 4:14 PM EDT [facility] Blood 09/16/2025 4:13 PM EDT 09/16/2025 4:14 PM EDT us Willem Juarezpark DO POINT OF CARE TEST ORDERABLE S Final Result [facility] [address] [place] [address], [facility] * CT Abdomen and or Pelvis Outside Exam (09/16/2025 12:41 PM EDT) Only the most recent of7 resultswithin the time period is included. Narrative 09/16/2025 12:41 PM EDT Images associated with this accession number were presented to us for comparison to an examination performed here. us Provider Not In System IMG CT ORDERABLES Final R esult * MRI Cholangiopancreatography (09/16/2025 12:26 AM EDT) Anatomical Region Laterality Modality Abdomen Magnetic Resonan ce 09/16/2025 Impressions 09/16/2025 6:57 AM EDT IMPRESSION: 1. Normal caliber bile ducts, post cholecystectomy, without filling defects. 2. Multiple small scattered foci of T2 hyperintensity in segment 7 and 6 of the right liver. These are nonspecific, but concerning for areas of inflammation/early abscess formation. Cholangitis is a possible etiology. Report Verified by: Rob Whitley MD at 09/16/2025 6:57 AM EDT Narrative 09/16/2025 6:57 AM EDT EXAM: MRI CHOLANGIOPANCREATOGRAPHY CLINICAL INDICATION: Hepatitis, acute, cholestatic liver injury and pancreatitis TECHNIQUE: Multisequence, multiplanar MR imaging of the abdomen without contrast. CONTRAST: None DATE: 09/16/2025 12:00 AM EDT COMPARISON: Abdominal ultrasound dated September 15, 2025 FINDINGS: Liver: Normal morphology and surface contour. There are multiple small heterogeneous foci of T2 hyperintensity in the posterior right liver, primarily involving segments 7 and 6. The largest measures up to 1.5 cm. Biliary Tree/Gallbladder: Absent gallbladder. No intrahepatic biliary dilatation. The common hepatic duct is normal in caliber measuring 6 mm. The common bile duct measures 8 mm. The cystic duct is not dilated. No filling defects. Spleen: Normal. Pancreas: Atrophic, without duct dilatation. Adrenal Glands: Normal. Kidneys/Ureter: Normal size without hydronephrosis or focal lesions. Gastrointestinal Tract: Limited evaluation. Normal caliber. Lymphatics: No lymphadenopathy. Vasculature: Limited evaluation without contrast. Normal flow voids. Normal aortic caliber. Peritoneum/Retroperitoneum: No ascites or focal fluid collections. Osseous Structures: Normal marrow signal. No suspicious focal lesions. Lower Chest: Dependent atelectasis. Procedure Note Rob Whitley MD - 09/16/2025 EXAM: MRI CHOLANGIOPANCREATOGRAPHY CLINICAL INDICATION: Hepatitis, acute, cholestatic liver injury andpancreatitis TECHNIQUE: Multisequence, multiplanar MR imaging of the abdomen withoutcontrast. CONTRAST: None DATE: 09/16/2025 12:00 AM EDT COMPARISON: Abdominal ultrasound dated September 15, 2025 FINDINGS: Liver: Normal morphology and surface contour. There are multiple smallheterogeneous foci of T2 hyperintensity in the posterior right liver,primarily involving segments 7 and 6. The largest measures up to 1.5 cm. Biliary Tree/Gallbladder: Absent gallbladder. No intrahepatic biliary dilatation. The common hepatic duct is normal incaliber measuring 6 mm. The common bile duct measures 8 mm. The cysticduct is not dilated. No filling defects. Spleen: Normal. Pancreas: Atrophic, without duct dilatation. Adrenal Glands: Normal. Kidneys/Ureter: Normal size without hydronephrosis or focal lesions. Gastrointestinal Tract: Limited evaluation. Normal caliber. Lymphatics: No lymphadenopathy. Vasculature: Limited evaluation without contrast. Normal flow voids.Normal aortic caliber. Peritoneum/Retroperitoneum: No ascites or focal fluid collections. Osseous Structures: Normal marrow signal. No suspicious focal lesions. Lower Chest: Dependent atelectasis. IMPRESSION: 1. Normal caliber bile ducts, post cholecystectomy, without fillingdefects. 2. Multiple small scattered foci of T2 hyperintensity in segment 7 and 6of the right liver. These are nonspecific, but concerning for areas ofinflammation/early abscess formation. Cholangitis is a possibleetiology. Report Verified by: Rob Whitley MD at 09/16/2025 6:57 AM EDT us Wendie Bradley MD IMG MRI ORDERABLES Final Resu lt * (ABNORMAL) Lactate Dehydrogenase (09/15/2025 3:07 PM EDT) LD 354(H) 110 - 270 U/L 09/15/2025 4:11 PM EDT [facility] Plasma 09/15/2025 3:07 PM EDT 09/15/2025 3:18 PM EDT Wendei Bradley MD LAB BLOOD ORDERABLES Final Re sult Performing Organization Address [facility]/ZIP Co de Phone Number [facility] [address] [facility]. [address] * (ABNORMAL) Haptoglobin (09/15/2025 3:07 PM EDT) Haptoglobin 243(H) 44 - 215 mg/dL 09/15/2025 4:11 PM EDT [facility] Serum 09/15/2025 3:07 PM EDT 09/15/2025 3:18 PM EDT Wendie Bradley MD LAB BLOOD ORDERABLES Final Re sult Performing Organization Address [facility] Co de Phone Number [facility] [address] [facility]. [address] * (ABNORMAL) Gamma GT (09/15/2025 3:07 PM EDT) GGT 358(H) 9 - 64 U/L 09/15/2025 4:11 PM EDT [facility] Serum 09/15/2025 3:07 PM EDT 09/15/2025 3:18 PM EDT Wendie Bradley MD LAB BLOOD ORDERABLES Final Re sult Performing Organization Address [facility] Co de Phone Number [facility] [address] [facility]. [address] * X-ray Portable Chest (09/15/2025 3:03 PM EDT) Only the most recent of2 resultswithin the time period is included. Anatomical Region Laterality Modality Chest Radiographic Destiny ging 09/15/2025 2:19 PM EDT Impressions 09/15/2025 5:35 PM EDT IMPRESSION: Right IJ central venous catheter tip overlies the SVC. No pneumothorax. Report Verified by: Pritesh Romero DO at 09/15/2025 5:35 PM EDT Narrative 09/15/2025 5:35 PM EDT EXAM: XR PORTABLE CHEST INDICATION: Other - Must Specify in Comments; RIJ CVC placement TECHNIQUE: 1 view of the chest. COMPARISON: 17 hours prior. FINDINGS: Medical Devices: Right IJ approach central venous catheter tip overlies the SVC. Unchanged left-sided central venous catheter.. Heart and Mediastinum: Unchanged. Lungs and Pleura: Hypoexpanded lungs with similar bibasilar airspace opacities. No pneumothorax. Bones and soft tissues: No acute abnormalities. Procedure Note George Romero DO - 09/15/2025 EXAM: XR PORTABLE CHEST INDICATION: Other - Must Specify in Comments; RIJ CVC placement TECHNIQUE: 1 view of the chest. COMPARISON: 17 hours prior. FINDINGS: Medical Devices: Right IJ approach central venous catheter tip overliesthe SVC. Unchanged left-sided central venous catheter.. Heart and Mediastinum: Unchanged. Lungs and Pleura: Hypoexpanded lungs with similar bibasilar airspaceopacities. No pneumothorax. Bones and soft tissues: No acute abnormalities. IMPRESSION: Right IJ central venous catheter tip overlies the SVC. No pneumothorax. Report Verified by: Pritesh Romero DO at 09/15/2025 5:35 PM EDT us [place] [facility] DIAGNOSTIC IMAGING ORDERABLE S Final Result * US Abdomen Complete (09/15/2025 2:33 PM EDT) Anatomical Region Laterality Modality Abdomen Ultrasound 09/15/2025 2:02 PM EDT Impressions 09/15/2025 2:38 PM EDT IMPRESSION: Normal sonographic appearance of the liver and biliary tree. Report Verified by: Rob Whitley MD at 09/15/2025 2:38 PM EDT Narrative 09/15/2025 2:38 PM EDT EXAM: US ABDOMEN COMPLETE INDICATION: Elevated LFTs DATE: 09/15/2025 2:02 PM EDT COMPARISON: None TECHNIQUE: Grayscale imaging was performed for evaluation of the liver, gallbladder, common bile duct, pancreas, spleen, and kidneys; with limited grayscale and color Doppler evaluation of the upper abdominal aorta and inferior vena cava. FINDINGS: Liver: Normal morphology and surface contour. Normal echogenicity and echotexture. No focal observations. Biliary/CBD: 5 mm. No intra or extrahepatic ductal dilatation. Gallbladder: Surgically absent. Pancreas: Not visualized Right kidney: 10.4 cm in length. Normal parenchymal echogenicity. No hydronephrosis. Left kidney: 10.6 cm in length. Normal parenchymal echogenicity. No hydronephrosis. Spleen: 9.6 cm. Aorta and IVC: Limited visualization. Normal caliber in the upper abdomen. Other: No free fluid. Procedure Note Rob Whitley MD - 09/15/2025 EXAM: US ABDOMEN COMPLETE INDICATION: Elevated LFTs DATE: 09/15/2025 2:02 PM EDT COMPARISON: None TECHNIQUE: Grayscale imaging was performed for evaluation of the liver,gallbladder, common bile duct, pancreas, spleen, and kidneys; with limitedgrayscale and color Doppler evaluation of the upper abdominal aorta andinferior vena cava. FINDINGS: Liver: Normal morphology and surface contour. Normal echogenicity andechotexture. No focal observations. Biliary/CBD: 5 mm. No intra or extrahepatic ductal dilatation. Gallbladder: Surgically absent. Pancreas: Not visualized Right kidney: 10.4 cm in length. Normal parenchymal echogenicity. Nohydronephrosis. Left kidney: 10.6 cm in length. Normal parenchymal echogenicity. Nohydronephrosis. Spleen: 9.6 cm. Aorta and IVC: Limited visualization. Normal caliber in the upperabdomen. Other: No free fluid. IMPRESSION: Normal sonographic appearance of the liver and biliary tree. Report Verified by: Rob Whitley MD at 09/15/2025 2:38 PM EDT us Wendie Bradley MD IMG US ORDERABLES Final Resul t * Insert Arterial Line (09/15/2025 2:18 PM EDT) Monty Hicks MD - 09/15/2025 2:18 PM EDT Monty Mahan MD 09/15/2025 4:29 PM Insert Arterial Line Date/Time: 09/15/2025 2:18 PM Performed by: Tru Benavides MD Authorized by: Tru Benavides MD Consent: Consent obtained: Written Consent given by: Spouse Risks, benefits, and alternatives were discussed: yes Risks discussed: Bleeding, ischemia, pain, infection and repeat procedure Hye protocol: Patient identity confirmed: Verbally with patient, hospital-assigned identification number and arm band Indications: Indications: hemodynamic monitoring and multiple ABGs Pre-procedure details: Skin preparation: Chlorhexidine Preparation: Patient was prepped and draped in sterile fashion Sedation: Sedation type: None Anesthesia: Anesthesia method: Local infiltration Local anesthetic: Lidocaine 1% w/o epi Procedure details: Laterality: Left Location: Radial artery Needle gauge: 20 G Placement technique: Ultrasound guided Number of attempts: 1 Transducer: waveform confirmed Post-procedure details: Post-procedure: Biopatch applied CMS: Normal Procedure completion: Tolerated us Tru Benavides MD IV THERAPY ORDERABLES Final Resu lt * CENTRAL LINE SINGLE LUMEN PERFORMABLE (09/15/2025 1:49 PM EDT) Ana Boyd PA - 09/15/2025 1:49 PM EDT RICKEY Auguste 09/15/2025 1:50 PM Central Line Date/Time: 09/15/2025 1:49 PM Performed by: LIBBY Augusteonsent: Verbal consent obtained. Written consent obtained Risks and benefits: risks, benefits and alternatives were discussed Consent given by: patient and spouse Patient understanding: patient states understanding of the procedure being performed Patient consent: the patient's understanding of the procedure matches consent given Procedure consent: procedure consent matches procedure scheduled Relevant documents: relevant documents present and verified Test results: test results available and properly labeled Site marked: the operative site was marked Patient identity confirmed: hospital-assigned identification number Time out: Immediately prior to procedure a time out was called to verify the correct patient, procedure, equipment, operations support professionals and site/side marked as required. Catheter type: triple lumen Indication(s): vascular access Patient location at time of line placement: ICU Conditions of line placement: sterile Preparation: skin prepped with 2% chlorhexidine Location details: right internal jugular Catheter size: 7 Fr Catheter fully inserted (hub at skin): yes Insertion guided by: ultrasound guided Number of attempts: 1 Successful placement: yes Sutured: 2-0 Post procedure chest x-ray ordered: yes Complications: none Ana Totael PA PROCEDURE/MINOR SURGICAL ORDERAB LES Final Result * Vancomycin, random (09/15/2025 9:34 AM EDT) Only the most recent of2 resultswithin the time period is included. Vancomycin Random 16.3 ug/mL 09/15/2025 10:09 AM EDT [facility] Comment:Reference range not established for this test. Plasma 09/15/2025 9:34 AM EDT 09/15/2025 9:36 AM EDT Carlos Fletcher PharmD LAB BLOOD ORDERABLES Final Result [facility] [address] [place] [address] * ECHO COMPLETE W/ CONTRAST (09/15/2025 8:42 AM EDT) Anatomical Region Laterality Modality Chest Ultrasound 09/15/2025 7:58 AM EDT Narrative 09/15/2025 9:24 AM EDT * [facility]* [address] [place] [address] Transthoracic Echocardiogram Patient: Laura Mallory Room: [facility] Height: 65in MR Number: [id number] : 1960 Weight: 232lb Account: [id number] Gender: F BP: 99 / 57 Study Date: 09/15/2025 Age: 65 BSA: 2.11m^2 Referring physician: Brit Castillo Interpreting physician: Sarthak Lerma MD PERFORMING Sarthak Lerma MD SPOOLING SUPERVISOR Hannah Guillaume ORDERING Brit Castillo REFERRING JonathanBrit feng Jose G ADMMARK Shin Willem Marquezn Procedure:TRANSTHORACIC ECHO (TTE) Order: Accession COMPLETE Number:[id number] Indications: Cardiomyopathy- Unspecified (I42.9). PMH: Coronary artery disease. Congestive heart failure. Chronic obstructive pulmonary disease. Study data: Height: 65in. 165.1cm. Weight: 232lb. 105.2kg. Comparison was made to the study of 05/26/2025. Study status: Routine. Procedure: A transthoracic echocardiogram was performed. Image quality was poor. The study was technically limited due to restricted patient mobility and body habitus. Scanning was performed from the parasternal, apical, subcostal, and suprasternal notch acoustic windows. Intravenous contrast (Optison) was administered to enhance regional wall motion assessment and opacify the LV. Transthoracic echocardiogram. M-mode, complete 2D, complete spectral Doppler, color Doppler, and tissue Doppler. Birthdate: Patient birthdate: 1960. Age: Patient is 65year(s) old. Sex: gender: female. Body mass index: BMI: 38.6kg/m^2. Body surface area: BSA: 2.11m^2. Blood pressure: 99/57 Patient status: Inpatient. Study date: Study date: 09/15/2025. Study time: 07:58 AM. Location: ICU/CCU Study Conclusions - Left ventricle: The cavity size is normal. Wall thickness was increased in a pattern of mild LVH. Systolic function is normal. The estimated ejection fraction is 60-65%. Wall motion is normal; there are no regional wall motion abnormalities. Grade I diastolic dysfunction. There is no evidence of a thrombus revealed by acoustic contrast opacification. - Ventricular septum: Abnormal septal motion. Septal motion is dyssynergic. - Right ventricle: Poorly visualized. Systolic function is normal. TAPSE: 2.2cm. - Pulmonary arteries: Systolic pressure could not be accurately estimated. - Inferior vena cava: The IVC is normal-sized. - Technically difficult study - all valves poorly seen. Cardiac Anatomy Left ventricle: - The cavity size is normal. Wall thickness was increased in a pattern of mild LVH. Systolic function is normal. The estimated ejection fraction is 60-65%. Wall motion is normal; there are no regional wall motion abnormalities. There is no evidence of a thrombus revealed by acoustic contrast opacification. - Grade I diastolic dysfunction. Aorta: Aortic root: The root is normal in size. Aortic valve: - Poorly visualized. TrileafletThe leaflets are normal thickness. Mobility is not restricted. Velocity is within the normal range. There is no stenosis. There is no regurgitation. The mean systolic gradient is 6mm Hg. The peak systolic gradient is 11mm Hg. The LVOT to aortic valve VTI ratio is 0.8. The valve area is 2.3cm^2. The valve area index is 1.07cm^2/m^2. The ratio of LVOT to aortic valve peak velocity is 0.75. The valve area is 2.1cm^2. The valve area index is 1.01cm^2/m^2. The ratio of LVOT to aortic valve mean velocity is 0.66. The valve area is 1.9cm^2. The valve area index is 0.89cm^2/m^2. Mitral valve: - The valve is structurally normal. Mobility is not restricted. Inflow velocity is within the normal range. There is no evidence for stenosis. There is no regurgitation. The peak diastolic gradient is 3mm Hg. Left atrium: The atrium is normal in size. Pulmonary artery: - Systolic pressure could not be accurately estimated. Right ventricle: - Poorly visualized. Systolic function is normal. TAPSE: 2.2cm. Ventricular septum: Abnormal septal motion. Septal motion is dyssynergic. Pulmonic valve: - Velocity is within the normal range. There is no evidence for stenosis. There is no regurgitation. Tricuspid valve: - The valve is structurally normal. Inflow velocity is within the normal range. There is no regurgitation. Right atrium: The atrium is normal in size. Pericardium: - There is no pericardial effusion. Systemic veins: Inferior vena cava: The IVC is normal-sized. Measurements Left ventricle Value Ref 05/26/2025 SV 69 ml -------- SV/bsa 33 ml/m^2 -------- E', lat darrick, TDI (L) 6.4 cm/sec >=10.0 12.0 E/e', lat darrick, (N) 13 <=13 7 TDI A', lat darrick, TDI 18.2 cm/sec -------- 13.6 E'/a', lat darrick, 0.35 -------- 0.88 TDI S', lat darrick, TDI 17.9 cm/sec -------- 13.6 E', med darrick, TDI (L) 5.5 cm/sec >=7.0 7.9 E/e', med darrick, 15 -------- 10 TDI A', med darrick, TDI 11.3 cm/sec -------- 12.9 E'/a', med darrick, 0.48 -------- 0.62 TDI S', med darrick, TDI 13.2 cm/sec -------- 12.1 E', avg, TDI 5.9 cm/sec -------- 10.0 E/e', avg, TDI (N) 14 <=14 8 LVOT Value Ref 05/26/2025 Diam, S 1.9 cm -------- Area 2.8 cm^2 -------- Peak sherice, S 1.26 m/sec -------- 1.17 Mean sherice, S 0.79 m/sec -------- 0.62 Peak grad, S 6 mm Hg -------- 5 SV 69 ml -------- SV/bsa 33 ml/m^2 -------- Right ventricle Value Ref 05/26/2025 TAPSE, MM (N) 2.2 cm >=1.7 1.9 S' lateral (N) 16.0 cm/sec >=9.5 14.5 RVOT Value Ref 05/26/2025 Peak v, S 1.09 m/sec -------- 0.77 Mean v, S 0.84 m/sec -------- 0.57 Left atrium Value Ref 05/26/2025 Area ES, A4C (N) 16 cm^2 <=20 23 Area/bsa ES, A4C 7.35 cm^2/m^2 -------- 10.31 SI dim, A2C 5.6 cm -------- Vol, S (N) 36 ml 22 52 Vol/bsa, S (N) 17 ml/m^2 16 34 Vol, ES, 1-p A4C (N) 36 ml 22 52 59 Vol/bsa, ES, 1-p (N) 17 ml/m^2 11 - 40 26 A4C Vol, ES, 1-p A2C (N) 36 ml 22 52 Vol/bsa, ES, 1-p (N) 17 ml/m^2 13 - 40 A2C Vol, ES, 2-p 36 ml -------- Vol/bsa, ES, 2-p (N) 17 ml/m^2 16 34 Aortic valve Value Ref 05/26/2025 Peak v, S 1.7 m/sec -------- 1.5 Mean v, S 1.19 m/sec -------- 1 Mean grad, S 6 mm Hg -------- 5 Peak grad, S 11 mm Hg -------- 10 LVOT/AV, VTI 0.8 -------- 0.79 ratio FARAZ, VTI 2.3 cm^2 -------- FARAZ/bsa, VTI 1.07 cm^2/m^2 -------- LVOT/AV, Vpeak 0.75 -------- 0.79 ratio FARAZ, Vmax 2.1 cm^2 -------- FARAZ/bsa, Vmax 1.01 cm^2/m^2 -------- LVOT/AV, Vmean 0.66 -------- 0.62 ratio FARAZ, Vmean 1.9 cm^2 -------- FARAZ/bsa, Vmean 0.89 cm^2/m^2 -------- Mitral valve Value Ref 05/26/2025 Peak E 0.8 m/sec -------- 0.81 Peak A 1.06 m/sec -------- 1.01 Decel time 267 ms -------- 240 Peak grad, D 3 mm Hg -------- 3 Peak E/A ratio 0.8 -------- 0.8 Pulmonic valve Value Ref 05/26/2025 Peak v, S 1.4 m/sec -------- 1 Aortic root Value Ref 05/26/2025 Root diam (N) 3.5 cm 2.8 - 3.5 4.2 Root diam/bsa 1.7 cm/m^2 -------- 1.6 Ascending aorta Value Ref 05/26/2025 AAo AP diam, S 3.5 cm -------- 3.6 AAo AP diam/bsa, 1.7 cm/m^2 -------- 1.6 S Inferior vena Value Ref 05/26/2025 cava Diam (N) 1.6 cm <=2.1 1.9 Legend: (L) and (H) joanne values outside specified reference range. (N) denton values inside specified reference range. Reviewed and confirmed by Sarthak Lerma MD [id number]:27 Procedure Note Sarthak Lerma MD - 09/15/2025 * [facility]* [address] [place] [id number] Transthoracic Echocardiogram Patient: Laura Mallory Room: DE11 Height: 65in MR Number: [id number] : 1960 Weight: 232lb Account: [id number] Gender: F BP: 99 / 57 Study Date: 09/15/2025 Age: 65 BSA: 2.11m^2 Referring physician: Brit Castillo Interpreting physician: Sarthak Lerma MD PERFORMING Sarthak Lerma MD SPOOLING SUPERVISOR Hannah Guillaume ORDERING Brit Castillo REFERRING Brit Castillo ATTENDING Monty Mahan Evan Lynn Procedure:TRANSTHORACIC ECHO (TTE) Order: Accession COMPLETE Number:[id number] Indications: Cardiomyopathy- Unspecified (I42.9). PMH: Coronary artery disease. Congestive heart failure. Chronic obstructive pulmonary disease. Study data: Height: 65in. 165.1cm. Weight: 232lb. 105.2kg. Comparisonwas made to the study of 05/26/2025. Study status: Routine. Procedure: A transthoracic echocardiogram was performed. Image quality was poor. The study was technically limited due to restricted patient mobility andbody habitus. Scanning was performed from the parasternal, apical, subcostal,and suprasternal notch acoustic windows. Intravenous contrast (Optison) was administered to enhance regional wall motion assessment and opacify theLV. Transthoracic echocardiogram. M-mode, complete 2D, complete spectral Doppler, color Doppler, and tissue Doppler. Birthdate:Patient birthdate: 1960. Age: Patient is 65year(s) old. Sex: Birthgender: female. Body mass index: BMI: 38.6kg/m^2. Body surface area: BSA: 2.11m^2. Blood pressure: 99/57 Patient status: Inpatient. Study date: Study date: 09/15/2025. Study time: 07:58 AM. Location: ICU/CCU Study Conclusions - Left ventricle: The cavity size is normal. Wall thickness was increasedin a pattern of mild LVH. Systolic function is normal. The estimatedejection fraction is 60-65%. Wall motion is normal; there are no regional wall motion abnormalities. Grade I diastolic dysfunction. There is noevidence of a thrombus revealed by acoustic contrast opacification. - Ventricular septum: Abnormal septal motion. Septal motion isdyssynergic. - Right ventricle: Poorly visualized. Systolic function is normal.TAPSE: 2.2cm. - Pulmonary arteries: Systolic pressure could not be accuratelyestimated. - Inferior vena cava: The IVC is normal-sized. - Technically difficult study - all valves poorly seen. Cardiac Anatomy Left ventricle: - The cavity size is normal. Wall thickness was increased in a patternof mild LVH. Systolic function is normal. The estimated ejection fractionis 60-65%. Wall motion is normal; there are no regional wall motion abnormalities. There is no evidence of a thrombus revealed by acoustic contrast opacification. - Grade I diastolic dysfunction. Aorta: Aortic root: The root is normal in size. Aortic valve: - Poorly visualized. TrileafletThe leaflets are normal thickness.Mobility is not restricted. Velocity is within the normal range. There is no stenosis. There is no regurgitation. The mean systolic gradient is 6mmHg. The peak systolic gradient is 11mm Hg. The LVOT to aortic valve VTIratio is 0.8. The valve area is 2.3cm^2. The valve area index is1.07cm^2/m^2. The ratio of LVOT to aortic valve peak velocity is 0.75. The valve areais 2.1cm^2. The valve area index is 1.01cm^2/m^2. The ratio of LVOT toaortic valve mean velocity is 0.66. The valve area is 1.9cm^2. The valve area index is 0.89cm^2/m^2. Mitral valve: - The valve is structurally normal. Mobility is not restricted. Inflow velocity is within the normal range. There is no evidence forstenosis. There is no regurgitation. The peak diastolic gradient is 3mm Hg. Left atrium: The atrium is normal in size. Pulmonary artery: - Systolic pressure could not be accurately estimated. Right ventricle: - Poorly visualized. Systolic function is normal. TAPSE: 2.2cm. Ventricular septum: Abnormal septal motion. Septal motion isdyssynergic. Pulmonic valve: - Velocity is within the normal range. There is no evidence forstenosis. There is no regurgitation. Tricuspid valve: - The valve is structurally normal. Inflow velocity is within the normal range. There is no regurgitation. Right atrium: The atrium is normal in size. Pericardium: - There is no pericardial effusion. Systemic veins: Inferior vena cava: The IVC is normal-sized. Measurements Left ventricle Value Ref 05/26/2025 SV 69 ml -------- SV/bsa 33 ml/m^2 -------- E', lat darrick, TDI (L) 6.4 cm/sec >=10.0 12.0 E/e', lat darrick, (N) 13 <=13 7 TDI A', lat darrick, TDI 18.2 cm/sec -------- 13.6 E'/a', lat darrick, 0.35 -------- 0.88 TDI S', lat darrick, TDI 17.9 cm/sec -------- 13.6 E', med darrick, TDI (L) 5.5 cm/sec >=7.0 7.9 E/e', med darrick, 15 -------- 10 TDI A', med darrick, TDI 11.3 cm/sec -------- 12.9 E'/a', med darrick, 0.48 -------- 0.62 TDI S', med darrick, TDI 13.2 cm/sec -------- 12.1 E', avg, TDI 5.9 cm/sec -------- 10.0 E/e', avg, TDI (N) 14 <=14 8 LVOT Value Ref 05/26/2025 Diam, S 1.9 cm -------- Area 2.8 cm^2 -------- Peak sherice, S 1.26 m/sec -------- 1.17 Mean sherice, S 0.79 m/sec -------- 0.62 Peak grad, S 6 mm Hg -------- 5 SV 69 ml -------- SV/bsa 33 ml/m^2 -------- Right ventricle Value Ref 05/26/2025 TAPSE, MM (N) 2.2 cm >=1.7 1.9 S' lateral (N) 16.0 cm/sec >=9.5 14.5 RVOT Value Ref 05/26/2025 Peak v, S 1.09 m/sec -------- 0.77 Mean v, S 0.84 m/sec -------- 0.57 Left atrium Value Ref 05/26/2025 Area ES, A4C (N) 16 cm^2 <=20 23 Area/bsa ES, A4C 7.35 cm^2/m^2 -------- 10.31 SI dim, A2C 5.6 cm -------- Vol, S (N) 36 ml 22 - 52 Vol/bsa, S (N) 17 ml/m^2 16 - 34 Vol, ES, 1-p A4C (N) 36 ml 22 - 52 59 Vol/bsa, ES, 1-p (N) 17 ml/m^2 11 - 40 26 A4C Vol, ES, 1-p A2C (N) 36 ml 22 - 52 Vol/bsa, ES, 1-p (N) 17 ml/m^2 13 - 40 A2C Vol, ES, 2-p 36 ml -------- Vol/bsa, ES, 2-p (N) 17 ml/m^2 16 - 34 Aortic valve Value Ref 05/26/2025 Peak v, S 1.7 m/sec -------- 1.5 Mean v, S 1.19 m/sec -------- 1 Mean grad, S 6 mm Hg -------- 5 Peak grad, S 11 mm Hg -------- 10 LVOT/AV, VTI 0.8 -------- 0.79 ratio FARAZ, VTI 2.3 cm^2 -------- FARAZ/bsa, VTI 1.07 cm^2/m^2 -------- LVOT/AV, Vpeak 0.75 -------- 0.79 ratio FARAZ, Vmax 2.1 cm^2 -------- FARAZ/bsa, Vmax 1.01 cm^2/m^2 -------- LVOT/AV, Vmean 0.66 -------- 0.62 ratio FARAZ, Vmean 1.9 cm^2 -------- FARAZ/bsa, Vmean 0.89 cm^2/m^2 -------- Mitral valve Value [facility] 05/26/2025 Peak E 0.8 m/sec -------- 0.81 Peak A 1.06 m/sec -------- 1.01 Decel time 267 ms -------- 240 Peak grad, D 3 mm Hg -------- 3 Peak E/A ratio 0.8 -------- 0.8 Pulmonic valve Value Ref 05/26/2025 Peak v, S 1.4 m/sec -------- 1 Aortic root Value [facility] 05/26/2025 Root diam (N) 3.5 cm 2.8 - 3.5 4.2 Root diam/bsa 1.7 cm/m^2 -------- 1.6 Ascending aorta Value Ref 05/26/2025 AAo AP diam, S 3.5 cm -------- 3.6 AAo AP diam/bsa, 1.7 cm/m^2 -------- 1.6 S Inferior vena Value Ref 05/26/2025 cava Diam (N) 1.6 cm <=2.1 1.9 Legend: (L) and (H) joanne values outside specified reference range. (N) denton values inside specified reference range. Reviewed and confirmed by Sarthak Lerma MD [id number] us Brit Castillo MD CV ECHO ORDERABLES Final Result * MRSA/Staph aureus DNA- Diagnostic Testing for Pneumonia (Nares Swab) (09/15/2025 4:55 AM EDT) MRSA, PCR Negative Negative 09/15/2025 6:52 AM EDT [facility] Staph Aureus, PCR Negative Negative 09/15/2025 6:52 AM EDT [facility] Comment:Test method is a FDA approved amplified DNA assay. Nares Swab BOTH ANTERIOR NARES / Unknown 09/15/2025 4:55 AM EDT 09/15/2025 5:27 AM EDT Narrative [facility] - 09/15/2025 6:52 AM EDT Diagnosis of MRSA Pneumonia->Yes - Place [id number] (this order) us Jd Gonzalez MD MICROBIOLOGY - GENERAL ORDERA BLES Final Result [facility] [address] [place] [address], [facility] * Triglycerides (09/15/2025 4:55 AM EDT) Triglycerides 96 10 - 149 mg/dL 09/15/2025 5:38 AM EDT [facility] Plasma 09/15/2025 4:55 AM EDT 09/15/2025 5:08 AM EDT us Willem Caitlin Ramser DO LAB BLOOD ORDERABLES Final R esult [facility] [address] [place] [address], [facility] * (ABNORMAL) Lipid Profile (09/15/2025 4:55 AM EDT) Non-HDL Cholesterol, Calculated 52 0 - 129 mg/dL 09/15/2025 5:38 AM EDT [facility] Comment: Desirable: < 130 mg/dL Above Desirable: 130-159 mg/dL Borderline High: 160-189 mg/dL High: 190-219 mg/dL Very High: > 219 mg/dL Cholesterol, Total 78 0 - 200 mg/dL 09/15/2025 5:38 AM EDT [facility] Triglycerides 96 10 - 149 mg/dL 09/15/2025 5:38 AM EDT [facility] HDL 26(L) 60 - 92 mg/dL 09/15/2025 5:38 AM EDT [facility] Comment: LIPID PROFILE INTERPRETATION CHOLESTEROL,TOTAL(mg/dL) DESIRABLE: < 200 BORDERLINE HIGH RISK: 200 - 239 HIGH RISK(UNDESIRABLE): =/> 240 LDL CHOLESTEROL(mg/dL) OPTIMAL: < 100 NEAR HIGH OPTIMAL: 100 - 129 BORDERLINE HIGH RISK: 130 - 159 HIGH RISK: 160 - 189 VERY HIGH RISK: =/> 190 HDL CHOLESTEROL(mg/dL) HIGH RISK(UNDESIRABLE): < 40 BORDERLINE: 40 - 59 LOW RISK (DESIRABLE): => 60 TRIGLYCERIDES (mg/dL) NORMAL(DESIRABLE): < 150 BORDERLINE HIGH RISK: 150 - 199 HIGH RISK: 200 - 499 VERY HIGH RISK: =/> 500 Based on the guidlines of the National Cholesterol Education Program (NCEP). Assumes sample obtained after a 9- to 12- hour fast. LDL Cholesterol 33 mg/dL 5:38 AM EDT [facility] Plasma 09/15/2025 4:55 AM EDT 09/15/2025 5:08 AM EDT Narrative [facility] - 09/15/2025 5:38 AM EDT LDL cholesterol calculated using the Friedewald equation. us Willem Shin DO LAB BLOOD ORDERABLES Final R esult Performing Organization Address [facility] Co de Phone Number [facility] [address] * ECG 12 lead (MUSE) (09/14/2025 9:35 PM EDT) 09/14/2025 9:35 PM EDT Narrative MUSE - 09/15/2025 11:04 AM EDT Ventricular Rate: 73 BPM Atrial Rate: 73 BPM P-R Interval: 172 ms QRS Duration: 100 ms QT: 456 ms QTc: 502 ms P Au Train: 37 degrees R Au Train: -48 degrees T Au Train: 63 degrees Diagnosis Line: NORMAL SINUS RHYTHM ^ LEFT ANTERIOR HEMIBLOCK ^ CANNOT RULE OUT ANTERIOR INFARCT , AGE UNDETERMINED ^ PROLONGED QT ^ ABNORMAL ECG ^ ^ Confirmed by Conner DONATO MD ([id number]) on 09/15/2025 11:04:49 AM Brit Castillo MD ECG ORDERABLES Final Result Performing Organization Address [facility] Co de Phone Number MUSE * Influenza A and B, COVID, RSV Combination Assay, ANU (09/14/2025 9:13 PM EDT) Influenza A Negative Negative 09/15/2025 12:09 AM EDT [facility] Influenza B Negative Negative 09/15/2025 12:09 AM EDT [facility] RSV Negative Negative 09/15/2025 12:09 AM EDT [facility] SARS-CoV-2 Negative Negative,Not Detected 09/15/2025 12:09 AM EDT [facility] Comment:This is an FDA-appro marvin amplified nucleic acid assay performed by real- time PCR. Nasopharyngeal Swab NASOPHARYNGEAL STRUCTURE / Unknown 09/14/2025 9:13 PM EDT 09/14/2025 10:24 PM EDT us Brit Castillo MD BODY FLUIDS AND STOOLS ORDERABLE S Final Result Performing Organization Address [facility] Co de Phone Number [facility] [address] [place] [address], [facility] * High Sensitivity Troponin (09/14/2025 9:13 PM EDT) Pathologist [facility] High Sensitivity Troponin 13 0 - 14 ng/L 09/14/2025 11:45 PM EDT [facility] Serum 09/14/2025 9:13 PM EDT 09/14/2025 10:02 PM EDT us Brit Castillo MD LAB BLOOD ORDERABLES Final Resul t [facility] [address] [facility]. [address] * Urine culture (09/14/2025 9:13 PM EDT) [facility] Culture Result 50,000 - <100,000 cfu/mL [facility] Culture Result Skin/Urogeni cayden Sharon. No Further Workup. [facility] Newly Placed Ni Urine URINE SPECIMEN / Unknown 09/14/2025 9:13 PM EDT 09/14/2025 9:21 PM EDT us Brit Castillo MD MICROBIOLOGY - GENERAL ORDERABLE S Final Result Performing Organization Address [facility]/ZIP Co de Phone Number [facility] [address] [facility]. [address] * (ABNORMAL) B Natriuretic Peptide (09/14/2025 9:13 PM EDT) Pathologist [facility] BNP 112(H) 0 - 100 pg/mL 09/14/2025 10:31 PM EDT [facility] Comment: BNP may be increased in the presence of sacubitril/valsartan (Entresto). Please interpret accordingly. Plasma 09/14/2025 9:13 PM EDT 09/14/2025 10:02 PM EDT Narrative [facility] - 09/14/2025 10:31 PM EDT The presence of high concentrations of biotin may cause falsely lowered BNP results. Biotin interference may be seen if an individual is taking >5 mg biotin per day. Interpret BNP results in the context of the patient's clinical presentation. us Brit Castillo MD LAB BLOOD ORDERABLES Final Resul t [facility] [address] [facility]. [place] [address], [facility] * (ABNORMAL) Urinalysis w/Rfl to Microscopic (09/14/2025 8:42 PM EDT) Color, UA Yellow Yellow,Straw 09/14/2025 9:36 PM EDT [facility] Clarity, UA Turbid(A) Clear 09/14/2025 9:36 PM EDT [facility] Specific Rowena, UA 1.035 1.005 - 1.035 09/14/2025 9:36 PM EDT [facility] pH, UA 6.0 5.0 - 8.0 09/14/2025 9:36 PM EDT [facility] Protein, UA 70(A) Negative mg/dL 09/14/2025 9:36 PM EDT [facility] Glucose, UA Negative Negative mg/dL 09/14/2025 9:36 PM EDT [facility] Ketones, UA Negative Negative mg/dL 09/14/2025 9:36 PM EDT [facility] Bilirubin, UA Small(A) Negative 09/14/2025 9:36 PM EDT [facility] Blood, UA Moderate(A) Negative 09/14/2025 9:36 PM EDT [facility] Nitrite, UA Negative Negative 09/14/2025 9:36 PM EDT [facility] Urobilinogen, UA 8.0(H) 0.2 - 1.9 mg/dL 09/14/2025 9:36 PM EDT [facility] Leukocyte Esterase, UA Moderate(A) Negative 09/14/2025 9:36 PM EDT [facility] RBC, UA 19(H) 0 - 3 /HPF 09/14/2025 9:36 PM EDT [facility] WBC, UA >100(H) 0 - 5 /HPF 09/14/2025 9:36 PM EDT [facility] Squam Epithel, UA 5 0 - 5 /HPF 09/14/2025 9:36 PM EDT [facility] Bacteria, UA Rare(A) None Seen /HPF 09/14/2025 9:36 PM EDT [facility] Hyaline Casts, UA 3(H) 0 - 2 /LPF 09/14/2025 9:36 PM EDT [facility] Mucus, UA Present(A) None Seen /HPF 09/14/2025 9:36 PM EDT [facility] Urine 09/14/2025 8:42 PM EDT 09/14/2025 9:08 PM EDT us Brit Castillo MD URINE ORDERABLES Final Result Performing Organization Address City/[facility]/ZIP Co de Phone Number [facility] [address] [place] [address]. [address] * Lactic Acid, STAT (09/14/2025 8:38 PM EDT) Lactate 1.2 0.5 - 2.2 mmol/L 09/14/2025 9:51 PM EDT [facility] Plasma 09/14/2025 8:38 PM EDT 09/14/2025 9:08 PM EDT us Brit Castillo MD LAB BLOOD ORDERABLES Final Resul t Performing Organization Address City/[facility]/ZIP Co de Phone Number [facility] [address] [place] [address]. [address] * (ABNORMAL) Lipase, STAT (09/14/2025 8:38 PM EDT) Lipase 462(H) 4 - 82 U/L 09/14/2025 9:52 PM EDT [facility] Plasma 09/14/2025 8:38 PM EDT 09/14/2025 9:10 PM EDT us Brit Castillo MD LAB BLOOD ORDERABLES Final Resul t Performing Organization Address City/[facility]/ZIP Co de Phone Number [facility] [address] [place] [address]. [address] * Hepatitis C Antibody (05/26/2025 3:02 PM EDT) HCV Ab Nonreactive Nonreactive 05/26/2025 7:36 PM EDT [facility] Comment:Health Department no tified in accordance with reportable infectious disease guidelines. Serum 05/26/2025 3:02 PM EDT 05/26/2025 3:06 PM EDT Narrative [facility] - 05/26/2025 7:36 PM EDT Antibodies to HCV not detected; does not exclude the possibility of exposure to HCV. Lewis Connelly MD LAB BLOOD ORDERABLES Final Resul t [facility] [address] [place] [address], [facility] from Last 3 Months or Most Recently Relevant to Health Maintenance Insurance [id number] [place] [address] [employer] [facility] MEDICARE A AND B [id number] [place] [id number] Advance Directives For more information, please contact: [phone] * Full Code (Latest Code Status on File) Date Activated Date Inactivated Comments 09/14/2025 8:32 PM 09/22/2025 10:26 PM * Full Code Date Activated Date Inactivated Comments 05/25/2025 6:55 PM 05/28/2025 5:44 PM Care Teams Executive Administrative Asst Relationship Specialty Start Date End Date Manas Jenkins MD [address] [place] [address] PCP - General Family Medicine 09/14/25
--- OUTSIDE RECORDS SUMMARY | 2025-10-17 14:57 | XMS_ITS | Encounter Summary ---
[facility] Address [address] [place] [address] Care Team Providers Care Pipe Coverer Name Role Phone Manas Jenkins MD Primary Care Provider + Reason for Visit * Reason Comments Med Refill Encounter Details Date Type Department Care Team (Late Contact Info) Description 05/30/2025 Refill [facility] [address] [place] [address] Manas Jenkins MD [address] [place] [address] 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 Tobacco Use Types [...] Description 10/27/2025 11:15 AM EST Office Visit [facility] [address] [place] [address] Manas Jenkins MD [address] [place] [address] documented as of this encounter Visit Diagnoses Not on filedocumented in this encounter Additional Health Concerns Assessment Noted Time PHQ-2 Depression Total Score: 1 11/27/19 24 1:57 PM EST documented as of this encounter Care Teams Pipe Coverer Relationship Specialty Start Date End Date Manas Jenkins MD [address] [place] [address] PCP - General Family Medicine 05/02/22 documented as of this encounter
--- OUTSIDE RECORDS SUMMARY | 2025-10-17 14:57 | XMS_ITS | Clinical Summary ---
Author Organization [facility] Address [address] [place] [address] Care Team Providers Care Sql Developer Name Role Phone Stevo Salter MD Primary Care Provider [phone] 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 Tobacco Use Types Packs/Day Years [...] 2009 [facility]-Zoster Vaccines (1 of 2) 2009 [id number] Vaccine (1 - 20 25-26 season) 2025 [facility]-Influenza Vaccine (#1) 2025 [facility]Y-RSV [...] age to complete this topic Insurance [id number] [place] [id number] MEDICARE [place] Care Teams Sql Developer Relationship Specialty Start Date End Date Stevo Salter MD [address] [place] [address] #1 #[address] [place] [address] PCP - General 5/14/21
--- OUTSIDE RECORDS SUMMARY | 2025-10-17 14:57 | XMS_ITS | Encounter Summary ---
[facility] Address [address] [place] [address] Care Team Providers Care Tool Repairer Name Role Phone Manas Blancas MD Primary Care Provider + Reason for Visit * Reason Onset Date Comments Med Refill 09/17/2022 Encounter Details Date Type Department Care Team (Late st Contact Info) Description 09/17/2022 Refill [facility] [address] [place] [address] Manas Blancas MD [address] [place] [address] Lumbar degenerative disc disease Social [...] Mallory Relationship: Self Best call back number: [phone] Requested Prescriptions: Requested Prescriptions Pending Prescriptions Disp Refills ??? oxyCODONE-acetaminophen (PERCOCET) 10-325 MG per tablet 90 tablet 0 Sig: Take 1 tablet by mouth Every 8 (Eight) Hours As Needed for Severe Pain. ??? potassium chloride (K-DUR,KLOR-CON) 20 MEQ CR tablet 90 tablet 2 Sig: Take 1 tablet by mouth 3 (Three) Times a Day. Pharmacy where request should be sent: [facility] [address] [facility] [phone] [facility] [phone] Additional details provided by patient: PATIENT STATED [...] Description 10/27/2025 11:15 AM EST Office Visit [facility] [address] [place] [address] Manas Blancas MD [address] [address] documented as of this encounter Visit Diagnoses Diagnosis Lumbar degenerative disc disease documented in this encounter Additional Health Concerns Assessment Noted Time PHQ-2 Depression Total Score: 6 05/02/20 22 12:07 PM EDT documented as of this encounter Care Teams Tool Repairer Relationship Specialty Start Date End Date Manas Blancas MD [address] [address] PCP - General Family Medicine 05/02/22 documented as of this encounter
--- OUTSIDE RECORDS SUMMARY | 2025-10-17 14:57 | XMS_ITS | Clinical Summary ---
Author Organization [facility] Address [facility] [place] [address] Phone Care Team Providers Care Social Media Senior Associate Name Role Phone Manas Jenkins Blaine Primary [...] age to complete this topic Insurance [id number] [place] [id number] [place] [address] [id number] Care Teams Social Media Senior Associate Relationship Specialty Start Date End Date Manas Jenkins [address] [place] [address] PCP - General 08/28/10
--- OUTSIDE RECORDS SUMMARY | 2025-10-17 14:57 | XMS_ITS | Encounter Summary ---
[facility] Organization [facility] Address [address] [place] [address] Care Team Providers Care Porcelain Enamel Repairer Name Role Phone Manas Jenkins MD Primary Care Provider + Reason for Visit * Reason Comments Med Refill Encounter Details Date Type Department Care Team (Late st Contact Info) Description 01/30/2025 Refill [facility] [address] [place] [address] Manas Jenkins MD [address] [place] [address] 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 Tobacco Use Types [...] Mallory Relationship: Self Best call back number: [phone] Requested Prescriptions: Requested Prescriptions Pending Prescriptions Disp Refills promethazine (PHENERGAN) 25 MG tablet [Pharmacy Med Name: PROMETHAZINE 25MG] 30 tablet 0 Sig: TAKE 1 TABLET BY MOUTH EVERY SIX HOURS NEEDED FOR NAUSEA OR VOMITING MAY CAUSE DROWSINESS Pharmacy where request should be sent: [facility] - [place] - [address] [facility] - [phone] - [phone] FX Last office visit with prescribing clinician: [...] Description 10/27/2025 11:15 AM EST Office Visit [facility] [address] [place] [address] Manas Jenkins MD [address] [place] [address] documented as of this encounter Visit Diagnoses Not on filedocumented in this encounter Additional Health Concerns Assessment Noted Time PHQ-2 Depression Total Score: 1 11/27/19 24 1:57 PM EST documented as of this encounter Care Teams Porcelain Enamel Repairer Relationship Specialty Start Date End Date Manas Jenkins MD [address] [address] PCP - General Family Medicine 05/02/22 documented as of this encounter
--- OUTSIDE RECORDS SUMMARY | 2025-10-17 14:59 | XMS_ITS | Encounter Summary ---
Author Organization [facility] Address [facility] [place] [place] [address] Care Team Providers Care Sped Teacher Name Role Phone Manas Jenkins MD Primary Care Provider [phone] Source Comments This information has been disclosed [...] release of HIV test results or diagnoses. [id number] Reason for Visit * Reason Comments Appointment Encounter Details Date Type Department Care Team (Late st Contact Info) Description 10/04/2025 Telephone [facility] [address] [facility] [address] [place] [address] Bruno Nunez Appointment 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 Tobacco Use Types Packs/Day Years Used Date Smoking Tobacco: Former Cigarettes Smokeless Tobacco: Never Comments:Former 2 PPD cigare tte smoker, quit ~2004 Alcohol Use Standard Drinks/Week Comments No 0 (1 standard drink = 0.6 oz pur e alcohol) [facility] Utilities Answer Date Recorded In the past 12 months has [employer] electric, gas, oil, or water company threatened [...] any time in the past 12 m [facility], were you homeless or living in a fpc (including now)? No 09/14/2025 Comments No Sex and Gender Information Value Date Recorded Sex Assigned at Not on file Legal Sex Female 11:13 AM EST Gender Identity Not on file Sexual Orientation Not on file documented as of this encounter Miscellaneous Notes * Telephone Encounter - Bruno Nunez - 10/04/2025 11:13 AM EST - Confirmed her [facility] doctor appointment on 10-05-25 at 2:40pm. documented in this encounter Plan of Treatment Not on file documented as of this encounter Visit Diagnoses Not on filedocumented in this encounter Additional Health Concerns Assessment Noted Time PHQ-9 Depression Total Score: 0 10/14/20 17 10:00 AM EST documented as of this encounter Care Teams Sped Teacher Relationship Specialty Start Date End Date Manas Jenkins MD [address] [place] [address] PCP - General Family Medicine 09/14/25 documented as of this encounter
--- OUTSIDE RECORDS SUMMARY | 2025-10-17 15:01 | XMS_ITS | Encounter Summary ---
Author Organization [facility] Address [address] [place] [address] Care Team Providers Care Genetic Physician Name Role Phone Manas Jenkins MD Primary Care Provider + Reason for Visit * Reason Onset Date Comments Med Refill 01/16/2023 Encounter Details Date Type Department Care Team (Late st Contact Info) Description 01/16/2023 Refill [facility] [address] [place] [address] Manas Jenkins MD [address] [place] [address] Migraine without aura and without [...] Mallory Relationship: Self Best call back number: [phone] Requested Prescriptions: Requested Prescriptions Pending Prescriptions Disp [...] Day. Pharmacy where request should be sent: [facility] [address] [phone] PH - [phone] FX Additional details provided by patient: PATIENT [...] 10/27/2025 11:15 AM EST Office Visit [facility] [address] [facility] [address] [place] [address] Manas Jenkins MD [address] [place] [address] documented as of this encounter Visit Diagnoses Diagnosis Migraine without aura and without status migrainosus, not intractable Lumbar degenerative disc disease documented in this encounter Additional Health Concerns Assessment Noted Time PHQ-2 Depression Total Score: 2 01/07/20 23 2:21 PM EST documented as of this encounter Care Teams Genetic Physician Relationship Specialty Start Date End Date Manas Jenkins MD [address] [place] [address] PCP - General Family Medicine 05/02/22 documented as of this encounter
--- OUTSIDE RECORDS SUMMARY | 2025-10-17 15:01 | XMS_ITS | Encounter Summary ---
Author Organization [facility] Address [address] [place] [address] Care Team Providers Care Master Ship Name Role Phone Manas Jenkins MD Primary Care Provider [phone] Source Comments This information has been disclosed [...] release of HIV test results or diagnoses. [id number] Reason for Referral * Imaging/Cardiovascular Scan (Routine) - New Request Specialty Diagnoses / Procedures Referred By Contac t Referred To Contact Radiology Procedures CT Abdomen and or Pelvis Outside Exam System, Provider Not In [address] [address] Referral ID Status Reason Start Date Expiration Date V isits Requested Visits Authorized [id number] New Request 09/16/2025 03/15/2026 1 1 * Imaging/Cardiovascular Scan (Routine) - New Request Specialty Diagnoses / Procedures Referred By Contac t Referred To Contact Radiology Procedures CT Abdomen and or Pelvis Outside Exam System, Provider Not In [address] [address] Referral ID Status Reason Start Date Expiration Date V isits Requested Visits Authorized [id number] New Request 09/16/2025 03/15/2026 1 1 * Imaging/Cardiovascular Scan (Routine) - New Request Specialty Diagnoses / Procedures Referred By Contac t Referred To Contact Radiology Procedures CT Abdomen and or Pelvis Outside Exam System, Provider Not In [address] [address] Referral ID Status Reason Start Date Expiration Date V isits Requested Visits Authorized [id number] New Request 09/16/2025 03/15/2026 1 1 * Imaging/Cardiovascular Scan (Routine) - New Request Specialty Diagnoses / Procedures Referred By Contac t Referred To Contact Radiology Procedures CT Abdomen and or Pelvis Outside Exam System, Provider Not In [address] [address] Referral ID Status Reason Start Date Expiration Date V isits Requested Visits Authorized [id number] New Request 09/16/2025 03/15/2026 1 1 Encounter Details Date Type Department Care Team (Late st Contact Info) Description 09/14/2025 Orders Only EXTERNAL PROV RESULTS [address] [place] [address] System, Provider Not In 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 Tobacco Use Types Packs/Day Years Used Date Smoking Tobacco: Former Cigarettes Smokeless Tobacco: Never Comments:Former 2 PPD cigare tte smoker, quit ~2004 Alcohol Use Standard Drinks/Week Comments No 0 (1 standard drink = 0.6 oz pur e alcohol) [facility] Utilities Answer Date Recorded In the past 12 months has [employer], gas, oil, or water company threatened [...] any time in the past 12 m [facility], were you homeless or living [...] Date of Assessment Author Compression boots No 09/17/2025 8:30 PM EDT Baldemar Gandhi RN Peripheral Vascular (WDL) X 09/17/2025 8:30 PM EDT Baldemar Gandhi RN * Question Answer Date of Assessment Author Anti-Embolism Intervention Other (Comment) 09/16/2025 8:00 PM EDT Karen Chacko RN * AUDIT-C Score Answer Date of Assessment Author 0 09/14/2025 8:57 PM EDT Tosha Scanlon RN * Question Answer Date of Assessment Author Q1: How often do you have a drink containing alcohol? Never 09/14/2025 8:57 PM EDT Tosha Scanlon RN Q2: How many drinks containing alcohol do you have on a typical day when you are drinking? Patient does not drink 09/14/2025 8:57 PM EDT Tosha Scanlon RN Q3: How often do you have six or more drinks on one occasion? Never 09/14/2025 8:57 PM EDT Tosha Scanlon, CISCO documented as of this encounter Plan of Treatment Not on file documented as of this encounter Results * CT Abdomen and or Pelvis Outside Exam (09/16/2025 12:41 PM EDT) Narrative 09/16/2025 12:41 PM EDT Images associated with this accession number were presented to us for comparison to an examination performed here. us Provider Not In System IMG CT ORDERABLES Final R esult * CT Abdomen and or Pelvis Outside Exam (09/16/2025 12:39 PM EDT) Narrative 09/16/2025 12:39 PM EDT Images associated with this accession number were presented to us for comparison to an examination performed here. us Provider Not In System IMG CT ORDERABLES Final R esult * CT Abdomen and or Pelvis Outside Exam (09/16/2025 12:39 PM EDT) Narrative 09/16/2025 12:39 PM EDT Images associated with this accession number were presented to us for comparison to an examination performed here. us Provider Not In System IMG CT ORDERABLES Final R esult * CT Abdomen and or Pelvis Outside Exam (09/16/2025 12:39 PM EDT) Narrative 09/16/2025 12:39 PM EDT Images associated with this accession number were presented to us for comparison to an examination performed here. us Provider Not In System IMG CT ORDERABLES Final R esult documented in this encounter Visit Diagnoses Not on filedocumented in this encounter Additional Health Concerns Infection Onset Date Last Indicated Resolved Time Rule Out COVID-19 09/14/2025 09/14/2025 09/15/2025 12:09 AM EDT Assessment Noted Time PHQ-9 Depression Total Score: 0 10/14/20 17 10:00 AM EST documented as of this encounter Care Teams Master Ship Relationship Specialty Start Date End Date Manas Jenkins MD [address] [place] [address] PCP - General Family Medicine 09/14/25 documented as of this encounter
--- OUTSIDE RECORDS SUMMARY | 2025-10-17 15:01 | XMS_ITS | Encounter Summary ---
Author Organization [facility] Address [facility] [place] [address] Care Team Providers Care Radio Presenter Name Role Phone Manas Jenkins MD Primary Care Provider [phone] Source Comments This information has been disclosed [...] release of HIV test results or diagnoses. [id number] Reason for Referral * Imaging/Cardiovascular Scan (Routine) - New Request Specialty Diagnoses / Procedures Referred By Contac t Referred To Contact Radiology Procedures CT Abdomen and or Pelvis Outside Exam System, Provider Not In [address] [address] Referral ID Status Reason Start Date Expiration Date V isits Requested Visits Authorized [id number] New Request 09/16/2025 03/15/2026 1 1 Encounter Details Date Type Department Care Team (Late st Contact Info) Description 09/12/2025 Orders Only EXTERNAL PROV RESULTS [address] [place] [address] System, Provider Not In 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 Tobacco Use Types Packs/Day Years Used Date Smoking Tobacco: Former Cigarettes Smokeless Tobacco: Never Comments:Former 2 PPD cigare tte smoker, quit ~2004 Alcohol Use Standard Drinks/Week Comments No 0 (1 standard drink = 0.6 oz pur e alcohol) [facility] Utilities Answer Date Recorded In the past 12 months has [employer], gas, oil, or water [employer] threatened to shut off services in your [...] any time in the past 12 m onths, were you homeless or living in a group home (including now)? No 09/14/2025 Comments No Sex and Gender Information Value Date Recorded Sex Assigned at Not on file Legal Sex Female 11:13 AM EST Gender Identity Not on file Sexual Orientation Not on file documented as of this encounter Functional Status * Peripheral Vascular Question Answer Date of Assessment Author Compression boots No 09/15/2025 8:00 PM EDAnt Armstrong RN Peripheral Vascular (WDL) X 09/15/2025 8:00 PM EDT Ant Sage, CISCO * AUDIT-C Score Answer Date of Assessment Author 0 09/14/2025 8:57 PM EDTosha Kim RN * Question Answer Date of Assessment Author Q1: How often do you have a drink containing alcohol? Never 09/14/2025 8:57 PM EDT Tosha Scanlon, CISCO Q2: How many drinks containing alcohol do you have on a typical day when you are drinking? Patient does not drink 09/14/2025 8:57 PM EDT Tosha Scanlon, CISCO Q3: How often do you have six [...] documented as of this encounter Care Teams Radio Presenter Relationship Specialty Start Date End Date Manas Jenkins MD [address] [place] [address] PCP - General Family Medicine 09/14/25 documented as of this encounter
--- OUTSIDE RECORDS SUMMARY | 2025-10-17 15:01 | XMS_ITS | Encounter Summary ---
[facility] Address [address] [place] [address] Care Team Providers Care Radio Recorder Name Role Phone Manas Jenkins MD Primary Care Provider + Reason for Visit * Reason Onset Date Comments Advice Only 09/22/2025 Encounter Details Date Type Department Care Team (Late st Contact Info) Description 09/22/2025 Telephone [facility] [address] [place] [address] Manas Jenkins MD [address] [place] [address] Advice Only 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 Tobacco [...] has agreed to having PT, OT, & [facility] if Dr. Jenkins will sign and follow [...] Description 10/27/2025 11:15 AM EST Office Visit [facility] [address] [place] [id number] Manas Jenkins MD [address] [place] [address] documented as of this encounter Visit Diagnoses Not on filedocumented in this encounter Additional Health Concerns Assessment Noted Time PHQ-2 Depression Total Score: 1 11/27/19 24 1:57 PM EST documented as of this encounter Care Teams Radio Recorder Relationship Specialty Start Date End Date Manas Jenkins MD [address] [place] [address] PCP - General Family Medicine 05/02/22 documented as of this encounter
--- OUTSIDE RECORDS SUMMARY | 2025-10-17 15:01 | XMS_ITS | Encounter Summary ---
Author Organization [facility] Address [address] [place] [id number] Care Team Providers Care Foundry Manager Name Role Phone Manas Jenkins MD [...] release of HIV test results or diagnoses. [id number] Reason for Referral * Imaging/Cardiovascular Scan (Routine) - New Request Specialty Diagnoses / Procedures Referred By Contac t Referred To Contact Radiology Procedures CT Abdomen and or Pelvis Outside Exam System, Provider Not In [address] [address] Referral ID Status Reason Start Date Expiration Date V isits Requested Visits Authorized [id number] New Request 09/16/2025 03/15/2026 1 1 * Imaging/Cardiovascular Scan (Routine) - New Request Specialty Diagnoses / Procedures Referred By Contac t Referred To Contact Radiology Procedures CT Abdomen and or Pelvis Outside Exam System, Provider Not In [address] [address] Referral ID Status Reason Start Date Expiration Date V isits Requested Visits Authorized [id number] New Request 09/16/2025 03/15/2026 1 1 Encounter Details Date Type Department Care Team (Late st Contact Info) Description 07/06/2025 Orders Only EXTERNAL PROV RESULTS [address] [place] [address] System, Provider Not In 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 Tobacco Use Types Packs/Day Years Used Date Smoking Tobacco: Former Cigarettes Smokeless Tobacco: Never Comments:Former 2 [employer] cigare tte smoker, quit ~2004 Alcohol Use Standard Drinks/Week Comments No 0 (1 standard drink = 0.6 oz pur e alcohol) [facility] Utilities Answer Date Recorded In the past 12 months has th e [employer], gas, oil, or water company threatened to [...] in the past 12 m [facility], were you homeless or living in a usp (including now)? No 05/25/2025 Comments No Sex [...] documented as of this encounter Care Teams Foundry Manager Relationship Specialty Start Date End Date Manas Jenkins MD [address] [place] [address] PCP - General Family Medicine 09/14/25 documented as of this encounter
--- OUTSIDE RECORDS SUMMARY | 2025-10-17 15:01 | XMS_ITS | Encounter Summary ---
Author Organization [facility] Address [facility] [place] [address] Care Team Providers Care Neuroscience Specialist Name Role Phone Manas Jenkins MD Primary Care Provider [phone] Source Comments This information has been disclosed [...] release of HIV test results or diagnoses. [id number] Reason for Visit * Reason Comments Appointment Encounter Details Date Type Department Care Team (Late st Contact Info) Description 09/20/2025 Telephone [facility] [place] [facility] [address] [address] Blaine Peña MD [address] [place] [address] Appointment 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 Tobacco Use Types Packs/Day Years Used Date Smoking Tobacco: Former Cigarettes Smokeless Tobacco: Never Comments:Former 2 [employer] cigare tte smoker, quit ~2004 Alcohol Use Standard Drinks/Week Comments No 0 (1 standard drink = 0.6 oz pur e alcohol) [facility] Utilities Answer Date Recorded In [...] any time in the past 12 m [facility], were you homeless or living in a skilled nursing (including now)? No 09/14/2025 Comments No Sex and Gender Information Value Date Recorded Sex Assigned at Not on file Legal Sex Female 11:13 AM EST Gender Identity Not on file Sexual Orientation Not on file documented as of this encounter Functional Status * Peripheral Vascular Question Answer Date of Assessment Author Parminder baeza No 09/20/2025 8:06 AM EDT Leelee Lepe, RN Peripheral Vascular (WDL) X 09/20/2025 8:06 AM EDT Leelee Lepe, RN documented as of this encounter Miscellaneous Notes * Telephone Encounter - Farhana Mendenhall - 09/20/2025 10:18 AM EDT Pt scheduled for 11/02/2025 at 11:[address] Peña in clinic * Telephone Encounter - Farhana Mendenhall - 09/20/2025 10:16 AM EDT ----- Message from Cristine Barrett CNP sent at 09/19/2025 11:31 AM EDT ----- Regarding: follow up Good morning- Could you please schedule the attached patient with Dr. Peña in the next 4 to 6 weeks for follow up post-hospitalization for pancreatitis, possible biliary source but post-cholecystectomy. Thanks, Cristine documented in this encounter Plan of Treatment Not on file documented as of this encounter Visit Diagnoses Not on filedocumented in this encounter Additional Health Concerns Assessment Noted Time PHQ-9 Depression Total Score: 0 10/14/20 17 10:00 AM EST documented as of this encounter Care Teams Neuroscience Specialist Relationship Specialty Start Date End Date Manas Jenkins MD [address] [place] [address] PCP - General Family Medicine 09/14/25 documented as of this encounter
--- OUTSIDE RECORDS SUMMARY | 2025-10-17 15:01 | XMS_ITS | Encounter Summary ---
[facility] Address [address] [place] [address] Care Team Providers Care Watch Hairspring Assembler Name Role Phone Manas Jenkins MD Primary Care Provider + Reason for Visit * Reason Comments Med Refill Encounter Details Date Type Department Care Team (Late Contact Info) Description 09/25/2025 Refill [facility] [address] [place] [address] Manas Jenkins MD [address] [place] [address] Chronic right-sided low back pain [...] Description 10/27/2025 11:15 AM EST Office Visit [facility] [address] [place] [address] Manas Jenkins MD [address] [place] [address] documented as of this encounter Visit Diagnoses Diagnosis Chronic right-sided low back pain with right-sided sciatica Hypercholesterolemia Pure hypercholesterolemia documented in this encounter Additional Health Concerns Assessment Noted Time PHQ-2 Depression Total Score: 1 11/27/19 24 1:57 PM EST documented as of this encounter Care Teams Watch Hairspring Assembler Relationship Specialty Start Date End Date Manas Jenkins MD [address] [place] [address] PCP - General Family Medicine 05/02/22 documented as of this encounter
--- OUTSIDE RECORDS SUMMARY | 2025-10-17 15:01 | XMS_ITS | Encounter Summary ---
Author Organization [facility] Address [address] [place] [address] Care Team Providers Care Dredge Deckhand Name Role Phone Manas Blancas MD Primary Care Provider [phone] Source Comments This information has been disclosed [...] release of HIV test results or diagnoses. [id number] Reason for Visit * Auth/Cert (Routine) Specialty Diagnoses / Procedures Referred By Contdannielle t Referred To Contact Intensive Care Diagnoses Septic shock [facility] [place] [address] Phone: tel: Referral ID Status Reason Start Date Expiration Date Visits Re quested Visits Authorized [id number] 1 1 Encounter Details Date Type Department Care Team (Late st Contact Info) Description 09/15/2025 Surgery [facility] ENDOSCOPY [address] [place] [address] Blaine Peña MD [address] [place] [address] PROCEDURE NOT PERFORMED Surgery Details Date/Time Status Location OR Service Patient Class Case Class Case Type Trauma Case? 09/15/2025 3:51 PM Posted ENDOSCOPY E4 Gastroenterology Inpatient Panel 1 Procedure LRB Anes Op Region Wound Class Comments PROCEDURE NOT PERFORMED N/A Scheduled as ERCP Case canceled/decided procedure not neccessary Surgeon Surgeon Role Service Panel Blaine Peña MD Primary Gastroenterology 1 documented in this encounter 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 Tobacco Use Types Packs/Day Years Used Date Smoking Tobacco: Former Cigarettes Smokeless Tobacco: Never Comments:Former 2 PPD cigare tte smoker, quit ~2004 Alcohol Use Standard Drinks/Week Comments No 0 (1 standard drink = 0.6 oz pur e alcohol) [facility] Utilities Answer Date Recorded In the past 12 months has th e [employer], gas, oil, or water [employer] threatened to shut off services in your [...] any time in the past 12 m [facility], were you homeless or living in a prison (including now)? No 09/14/2025 Comments No Sex and Gender Information Value Date Recorded Sex Assigned at Not on file Legal Sex Female 11:13 AM EST Gender Identity Not on file Sexual Orientation Not on file documented as of this encounter Last Filed Vital Signs Vital Sign Reading Time Taken Comments Blood Pressure 97/59 09/15/2025 1:00 PM EDT Pulse 80 09/15/2025 11:00 PM EDT Temperature 36.9 C (98.5 F) 09/15/2025 8:00 PM EDT Respiratory Rate 19 09/15/2025 11:0 0 PM EDT Oxygen Saturation 96% 09/15/2025 11: 00 PM EDT Inhaled Oxygen Concentration 96% 11:00 PM EDT Weight 105.4 kg (232 lb 5.8 oz) 09/14/2025 9:06 PM EDT Height 165.1 cm (5' 5 ) 09/14/2025 8:34 PM EDT Body Mass Index 38.67 09/14/2025 8:34 PM EDT documented in this encounter Functional Status * Peripheral Vascular Question Answer Date of Assessment Author Compression boots No 09/15/2025 8:00 PM EDT Ant Sage RN Peripheral Vascular (WDL) X 09/15/2025 8:00 PM EDT Ant Sage RN * AUDIT-C Score Answer Date of [...] occasion? Never 09/14/2025 8:57 PM EDT Tosha Scanlon RN documented as of this encounter Discharge Summaries * CIERA Pearson, PATIENT EDUCATOR - 09/22/2025 3:19 PM EDT [facility] Management Discharge Summary Patient name: Laura Mallory Patient : 1960 Age: 65 y.o. Gender: female Patient emergency contact: Extended Emergency Contact Information Primary Emergency Contact: Adal Mallory (next of kin) Address: [address] [place] [address] [place] Relation: Spouse Attending provider: Jj Morrison MD Primary care physician: MANAS BLANCAS MD The MD has indicated that the patient is ready for discharge. Laura Mallory was discharged home with HHC and IV antibiotics . The patient will be transported by private car. Transfer Mode/Level of Care: Family DC Summary and SHI have been faxed to facility. -HHC faxed to [facility] and liaison Geovanna notified; [facility] liaison Katya states delivery scheduled for today. The plan has been reviewed: Patient/Family Informed of Discharge Plan: Yes Plan Reviewed With Patient, Family, or Significant Other: Yes Patient and or family are aware and in agreement with the discharge plan: Yes Plan reviewed with MD and other members of the health care team: Yes Care Plan Completed: Yes No further CM/SW needs. This plan has been reviewed with the multi-disciplinary team. Treatment Preferences Treatment Preferences: Quality Measure Scores Post-Discharge Goals Patient's Post-Discharge goals: Experience an effective transition from the hospital to my post discharge providers. Post Acute Care Provider Information: Community Services at Discharge Community Services at Home post discharge: Home Health Care, Infusion Home Health Care Name/Phone # post discharge: Ar, Home Health Services Types at Discharge: PT/OT/STEEL ERECTING PUSHER, Nursing Home Infusion Company Name/Phone # post discharge: [facility], Damián VANG PATIENT EDUCATOR [phone] * Lizet Hair MD - 09/22/2025 2:04 PM EDT Images from the original note were not included. [facility] Internal Medicine - Discharge Summary Date of Admission: 09/14/2025 Date of Discharge: 09/22/25 Attending Physician: Jj Morrison MD Hospital Problem List Active Hospital Problems Diagnosis Date Noted Sepsis due to Escherichia coli with acute organ dysfunction ([facility]) [A41.51, R65.20] 09/17/2025 Weakness [R53.1] 09/21/2025 Cystitis [N30.90] 09/17/2025 Migraine [G43.909] 09/17/2025 Acute pancreatitis [K85.90] 09/17/2025 Tremor [R25.1] 09/17/2025 Severe protein-calorie malnutrition ([facility]) [E43] 09/17/2025 Normocytic anemia [D64.9] 09/17/2025 COPD (chronic obstructive pulmonary disease) ([facility]) [J44.9] Elevated LFTs [R79.89] 05/27/2025 APARNA (obstructive sleep apnea) [G47.33] 05/27/2025 HFimpEF [I50.22] 05/27/2025 Chronic back+knee pain with R-sided sciatica [M54.9, G89.29] 05/27/2025 Constipation [K59.00] 05/27/2025 Septic shock, resolved [A41.9, R65.21] 05/25/2025 Coronary artery disease involving [place] coronary artery of [place] heart without angina pectoris [I25.10] 02/26/2023 Chronic anxiety [F41.9] 05/02/2022 Gastroesophageal reflux disease without esophagitis [K21.9] 05/02/2022 Resolved Hospital Problems Diagnosis Date Noted Date Resolved Acute respiratory failure with hypoxia ([facility]) [J96.01] 05/27/2025 09/17/2025 FER (acute kidney injury) ([facility]) [N17.9] 05/27/2025 09/17/2025 Operations/Procedures Performed (include dates) Surgeries: Surgical/Procedural Cases on this Admission Case IDs Date Procedure Surgeon Location Status [id number] 09/15/25 PROCEDURE NOT PERFORMED Blaine Peña MD ENDOSCOPY Comp Lines/Drains/Airways: Patient Lines/Drains/Airways Status Active LDAs Name Placement date Placement time Site Days PICC Single Lumen 09/19/25 Right Brachial 09/19/25 1646 Brachial 2 External Urinary Catheter 09/17/25 1300 09/17/25 1300 -- 5 Notable Imaging Studies: MRI Cholangiopancreatography Result Date: 09/16/2025 IMPRESSION: 1. Normal caliber bile ducts, post cholecystectomy, without filling defects. 2. Multiple small scattered foci of T2 hyperintensity in segment 7 and 6 of the right liver. These are nonspecific, but concerning for areas of inflammation/early abscess formation. Cholangitis is a possible etiology. Report Verified by: Rob Whitley MD at 09/16/2025 6:57 AM EDT X-ray Portable Chest Result Date: 09/15/2025 IMPRESSION: Right IJ central venous catheter tip overlies the SVC. No pneumothorax. Report Verifiedby: Pritesh Romero DO at 09/15/2025 5:35 PM EDT US Abdomen Complete Result Date: 09/15/2025 IMPRESSION: Normal sonographic appearance of the liver and biliary tree. Report Verified by: Rob Whitley MD at 09/15/2025 2:38 PM EDT X-ray Portable Chest Result Date: 09/14/2025 IMPRESSION: 1. Left IJ approach CVC tip projects over the SVC. No evidence of pneumothorax. 2. Small bilateral pleural effusions with overlying bibasilar opacities, left greater than right. Report Verified by: Doroteo Nguyen DO at 09/14/2025 10:18 PM EDT Other Procedures: TTE 09/15- - Left ventricle: The cavity size is [...] difficult study - all valves poorly seen. Consulting Services (include reason) Infectious disease: Sepsis, Hepatic abscesses GI: pancreatitis, MRCP Allergies Aleve [Naproxen Sodium] Cristina [Fexofenadine] Discharge Medications Medication List PAUSE taking these medications Quantity/Refills furosemide 40 MG tablet Wait to take this until your doctor or other care provider tells you to start again. Commonly known as: LASIX Take 1 tablet (40 mg total) by mouth 2 times a day. For volume overload Refills: 0 Linzess 72 mcg Cap Wait to take this until your doctor or other care provider tells you to start again. Generic drug: linaCLOtide Take 1 capsule (72 mcg total) by mouth every morning before breakfast. For constipation Refills: 0 TAKE these medications, which are NEW Quantity/Refills AMOXicillin-clavulanate 875-125 mg per tablet Commonly known as: AUGMENTIN Take 1 tablet by mouth 2 times a day for 14 days. Start taking on: October 15, 2025 For infection Quantity: 28 tablet Refills: 0 naloxone 4 mg/actuation Keasbey Commonly known as: NARCAN Apply 1 spray in one nostril if needed. Call 911. May repeat dose in other nostril if no response in 3 minutes. Quantity: 2 each Refills: 1 piperacillin-tazobactam IVPB (Outpatient / Ambulatory) Commonly known as: ZOSYN Intravenous 13.5 g daily for 23 days. As a continuous infusion over 24 hours. For infection Refills: 0 polyethylene glycol 17 gram/dose powder Commonly known as: GLYCOLAX Mix one capful (17 g) into 8 oz of liquid and drink twice daily as instructed. For constipation Quantity: 238 g Refills: 0 senna 8.6 mg tablet Commonly known as: SENOKOT Take 2 tablets by mouth 2 times a day as needed for Constipation. Quantity: 30 tablet Refills: 0 TAKE these medications, which you were ALREADY TAKING Quantity/Refills aspirin 81 MG EC tablet Take 1 tablet (81 mg total) by mouth daily. For primary prevention Refills: 0 atorvastatin 40 MG tablet Commonly known as: LIPITOR Take 1 tablet (40 mg total) by mouth daily. HLD Refills: 0 carvediloL 3.125 MG tablet Commonly known as: COREG Take 1 tablet (3.125 mg total) by mouth 2 times a day. HFimpEF Refills: 0 celecoxib 100 MG capsule Commonly known as: CELEBREX Take 1 capsule (100 mg total) by mouth 2 times a day. pain Refills: 0 cholecalciferol (vitamin D3) 50 mcg (2,000 unit) Cap Take 1 capsule by mouth daily. Vit D def Refills: 0 DULoxetine 60 MG capsule Commonly known as: CYMBALTA Take 1 capsule (60 mg total) by mouth at bedtime. mood Refills: 0 gabapentin 100 MG capsule Commonly known as: NEURONTIN Take 1 capsule (100 mg total) by mouth 3 times a day as needed. pain Quantity: 30 capsule Refills: 0 hydrOXYzine HCL 25 MG tablet Commonly known as: ATARAX Take 1 tablet (25 mg total) by mouth 2 times a day as needed for Itching or Anxiety. Refills: 0 LORazepam 0.5 MG tablet Commonly known as: ATIVAN Take 1 tablet (0.5 mg total) by mouth daily as needed for Anxiety. Refills: 0 omeprazole 20 MG capsule Commonly known as: PRILOSEC Take 1 capsule (20 mg total) by mouth every morning before breakfast. GERD Quantity: 30 capsule Refills: 0 sacubitriL-valsartan 24-26 mg Tab Commonly known as: ENTRESTO Take 1 tablet by mouth 2 times a day. HFimpEF Refills: 0 spironolactone 25 MG tablet Commonly known as: ALDACTONE Take 1 tablet (25 mg total) by mouth 2 times a day. HFimpEF Refills: 0 * topiramate 100 MG tablet Commonly known as: TOPAMAX Take 1.5 tablets (150 mg total) by mouth at bedtime. Take in addition to 100 mg in the morning for a total daily dose of 250 mg. Refills: 0 * topiramate 100 MG tablet Commonly known as: TOPAMAX Take 1 tablet (100 mg total) by mouth every morning. Take in addition to 150 mg at bedtime for a total daily dose of 250 mg. migraine Refills: 0 traMADoL 50 mg tablet Commonly known as: ULTRAM Take 1 tablet (50 mg total) by mouth every 8 hours as needed for Pain. migraine Refills: 0 Trelegy Ellipta 100-62.5-25 mcg Dsdv Generic drug: mqkbmjemckx-eukhdjrmq-tnyymhwh Inhale 1 puff into the lungs daily. COPD Quantity: 60 each Refills: 0 * This list has 2 medication(s) that are the same as other medications prescribed for you. Read thedirections carefully, and ask your doctor or other care provider to review them with you. STOP taking these medications famotidine 20 MG tablet Commonly known as: PEPCID Where to Get Your Medications These medications were sent to [facility] [address] Hours: Friday - Friday: 8:00AM - 6:00PM AMOXicillin-clavulanate 875-125 mg per tablet gabapentin 100 MG capsule naloxone 4 mg/actuation Keasbey omeprazole 20 MG capsule polyethylene glycol 17 gram/dose powder senna 8.6 mg tablet Trelecinthya Ellipta 100-62.5-25 mcg Dsdv Information about where to get these medications is not yet available Ask your nurse or doctor about these medications piperacillin-tazobactam IVPB (Outpatient / Ambulatory) Reason for Admission Larua Mallory is a 65 y.o. female who has a past medical history of Acute non-ST segment elevation myocardial infarction ([facility]) (02/26/2023), Anxiety, Atherosclerosis of coronary artery without angina pectoris (02/26/2023), COPD (chronic obstructive pulmonary disease) ([facility]), Heart failure withimproved ejection fraction (HFimpEF) ([facility]), and Stress-induced cardiomyopathy (02/26/2023).. The patient was admitted for septic shock due to E. Coli bacteremia. Hospital Course By Problem Septic shock, resolved E. Coli bacteremia E. Coli UTI C/f cholangitis Hepatic lesions Patient was transferred to MICU from [facility] for septic shock in the setting of leukocytosis, fever and severe hypotension. Urine and blood cultures at OSH grew E. Coli iniguez sensitive. Also had pancreatitis, cholangitis, and hepatic lesions (could have been infection vs infarcts), which could have been different infectious sources. Patient was treated with IV fluids, pressors, Zosyn, Vanc. She was transferred to the medicine floor. By discharge patient was hemodynamically stable, leukocytosis had also resolved. Per ID: Continue IV Zosyn to complete 4 weeks course EOT 10/14/2025, transition to PO Augmentin after 4 weeks of IV therapy, 10/15- 10/27 for a total 6 weeks Urology referral for history of recurrent UTI and thickening of the bladder on imaging - OP referral placed and discussed with patient and her GI follow up as outpatient, who may be able to determine if patient needs repeat MRCP or other imaging Follow up labs weekly CBC.diff, ESR, CRP, CMP and fax labs to [facility] at [phone] PICC line care weekly Had ID follow up 10/05 Can discontinue PICC on 10/15 or as directed by ID Pancreatitis Patient presented with abdominal and back pain, elevated LFTs, elevated lipase, CT was unremarkable. Patient was treated with IV fluids and able to advance diet. Bladder wall thickening CT at outside hospital revealed bladder wall thickening, urine cultures at OSH with E.coli. By discharge, patient with no urinary spx. - Follow up with urology outpatient for further workup HFimpEF GDMT was initially held due to severe hypotension. Echo 09/15- EF 60-65% wth no motion wall abnormality. Resumed carvedilol, entresto, and aldactone, in days prior to discharge and was well tolerated. To continue these. Patient noted that she takes Lasix PRN - have held this on discharge and is to follow-up with PCP. GERD Patient was on both famotidine and omeprazole as outpt - not sure why on two medications for GERD. She was treated with pantoprazole alone during hospitalization with good control of symptoms so discharged on omeprazole (discontinued famotidine). Chronic pain-continue home tramadol, duloxetine, celecoxib, gabapentin. Anxiety-can resume home ativan PRN on discharge. Migraines-continue home topamax. HLD-continue atorvastatin. Deconditioning PT and OT before discharge recommended SNFgiven patent's weakness. Team discussed this with patientjey christianson. However, patient and would like for her to go home. She was discharged home with home health care. Heart Failure Documentation DEENA-I/ARB:YES-Entresto ARNI: YES: Prescribed at discharge-Entresto 24-26 BID NYHA Class: II - Slight limitation of physical activity. Comfortable at rest. Ordinary physical activity results in fatigue, palpitation, dyspnea. Evidence Based Beta Filomena, NYHA Class II-IV:YES-coreg 3.125 BID AHA/ACC Society Stage: B - Objective evidence of minimal cardiovascular disease. Mild symptoms and slight limitation during ordinary activity. Comfortable at rest. Mineralocorticoid receptor antagonist: YES If dose is new or changed, labs ordered to be drawn within 7day? Yes Hydralazine: NO: Hypotension Nitrate: NO: Hypotension SGLT2 Inhibitor: No Other: can cause UTI, had UTI ICD Therapy Counseling: No: Not eligible (e.g. EF > 35%, new onset HF) ICD Placed or Prescribed: No: Not eligible (i.g. EF > 35%, new onset HF) DIRECTOR OF DIAGNOSTIC IMAGING-D: No: Not eligible (e.g. EF>35%, new onset HF) Atrial fibrillation/flutter: NO Personalized Exercise/Activity Program: patient will do home PT/OT, can discuss with PCP about cardiac rehab Cardiac Procedures/Surgeries/Imaging performed this admission: Select all that apply: Echocardiogram Discharge Weight: Weight: (!) 232 lb 5.8 oz (105.4 kg) No results for input(s): BNP in the last 72 hours. HF Follow Up within 1 week: Future Appointments Date Time Provider Department Center 10/05/2025 2:40 PM Laine Padilla MD [facility] 11/02/2025 9:00 AM Ryan Mclaughlin MD [facility] 11/02/2025 11:30 AM Blaine Peña MD [facility] Condition on Discharge Functional Status: Abnormal - Description: impaired mobility Mental Status: Normal Diet / Tube Feeding / TPN: Diet/Nutrition Orders Diet high calorie 3000 kcal a day Frequency: Effective Now Number of Occurrences: Until Specified Order Questions: Suicide/Behavior Risk Modification? No Dietary nutrition supplements Frequency: TID Number of Occurrences: Until Specified Order Questions: Select Supplement: Boost Plus-high calorie high protein supplement Regular Diet Respiratory / Lines & Tubes / Wounds: LINES, TUBES AND DRAINS: PICC line care per nursing protocol. Discharge Physical Exam: BP 139/78 (BP Location: Left forearm, Patient Position: Lying) Pulse 85 Temp 97.7 ??F (36.5 ??C) (Oral) Resp 18 Ht 5' 5 (1.651 m) Wt (!) 232 lb 5.8 oz (105.4 kg) SpO2 96% BMI 38.67 kg/m?? Physical Exam Constitutional: General: She is not in acute distress. HENT: Head: Normocephalic and atraumatic. Eyes: General: No scleral icterus. Extraocular Movements: Extraocular movements intact. Pupils: Pupils are equal, round, and reactive to light. Cardiovascular: Rate and Rhythm: Normal rate and regular rhythm. Heart sounds: Normal heart sounds. No murmur heard. No friction rub. No gallop. Pulmonary: Effort: Pulmonary effort is normal. No respiratory distress. Breath sounds: Normal breath sounds. No wheezing. Abdominal: General: Bowel sounds are normal. There is no distension. Palpations: Abdomen is soft. Tenderness: There is abdominal tenderness (Tenderness to deep palpation in the periumbilical area).There is no guarding. Musculoskeletal: General: Swelling (Up to her salas billateraly, no pitting edema) present. Right lower leg: No edema. Left lower leg: No edema. Neurological: General: No focal deficit present. Mental Status: She is alert and oriented to person, place, and time. Psychiatric: Mood and Affect: Mood normal. Disposition Home with Home Health Follow-Up Appointments Future Appointments Date Time Provider Department Center 10/05/2025 2:40 PM Laine Padilla MD [facility] 11/02/2025 9:00 AM Ryan Mclaughlin MD [facility] 11/02/2025 11:30 AM Blaine Peña MD [facility] Dr. Manas Blancas [phone] [address] [address] Go on 09/29/2025 11:15 a.m. [facility] [address] [facility] [address], [facility] [address] [address] Patient Instructions / Follow-Up Items for Receiving Physician PCP: please review bowel regimen, Linzess, and need for PO lasix. Note prepared by Joe Gandara, Edited by: LIZET HAIR MD PGY-2 Internal Medicine Resident Green Team 09/22/2025 2:05 PM Cosigned by Jj Morrison MD at 09/22/2025 5:31 PM EDT Associated attestation - Jj Morrison MD - 09/22/2025 5:31 PM EDT Internal Medicine Attending Discharge Note I have seen and examined Laura Mallory on the day of discharge 09/22/2025. I conducted an independentreview of the records, labs, procedures, and imaging pertinent to today's encounter through the EMR. I have reviewed and agree with the discharge summary. I have made edits directly to the note below. Discharge >30 minutes, [id number]: Total time personally spent today, including qypr-fh-auwq with patient and/or caregiver(s), as well as bwj-eedo-vf-face time spent in care coordination, consultation,reviewing records, and documentation was 60 minutes. JJ MORRISON MD Attending Physician Department [place] [phone]) 09/22/2025, 5:13 PM * Ryan Mclaughlin MD - 09/19/2025 3:17 PM EDT Subspecialty Follow-up Appointment Chart Note Service: Infectious Diseases Subspecialty Follow-up Disposition: The patient requires subspecialty follow-up as noted below: Note: This information is for [facility] Scheduling use only. It is not the responsibility of the primaryinpatient service to schedule this appointment. Visit type:Either Faculty or Fellow Clinic Name of provider to schedule with: Available Timing: The appointment should be scheduled in 3 weeks. Location: [facility] if there are no open appointment slots?: No Reason for follow up: E.coli bacteremia 2/2 UTI, liver abscess, planned for 4 weeks Zosyn followed by 2 weeks Augmentin Comments: NA In case of scheduling conflict, contact Pager/Cell phone number: [phone] RYAN MCLAUGHLIN MD 09/19/2025 3:17 PM documented in this encounter Discharge Instructions * Discharge Instructions* Lizet Hair MD - 09/21/2025 7:54 AM EDT Dear Laura Mallory, --> You were hospitalized for very low blood pressure, blood infection, urinary infection, and possible your GI tract (pancreas, liver). You were treated with IV fluids and antibiotics. --> Instructions: 1) Please continue your home IV antibiotics with [facility] and follow up with the Infectious Disease doctors. A nurse will come to draw your labs weekly while on IV antibiotics. Then you will switch to an oral antibiotic (Augmentin) for two weeks. 2) Follow up with urology: referral was placed to Urology for recurrent UTIs.They should call you, but if not, please call [phone] to schedule an appointment. 3) Complete physical therapy and occupational therapy at home. Thank you, [facility] Medicine Team Follow a low sodium heart-healthy diet and limit sugary foods and drinks. Engage in light physical activity. Please return to the emergency department for if you have chest pain, or feel lightheaded/faint, sudden weight gain (more than 2-3 pounds in 1 day or 5 pounds in a week), decreased urination, if you develop a fever, chills, or if you notice any new or concerning symptoms. documented in this encounter Medications at Time of Discharge AMOXicillin-clav ulanate (AUGMENTIN) 875-125 mg per tablet Take 1 tablet by mouth 2 times a day for 14 days. Start on 10/15/25 28 tablet 09/22/2025 2:33 PM EDT 10/15/2025 5 aspirin 81 MG EC tablet Take 1 [...] needed for Anxiety. naloxone (NARCAN) 4 mg/actuation Keasbey Apply 1 spray in one nostril if [...] a continuous infusion over 24 hours. 09/22/2025 documented as of this encounter Progress Notes * Brandy Medina, PT - 09/22/2025 3:52 PM EDT Physical Therapy Treatment Name: Laura Mallory : 1960 Attending Physician: Jj Morrison MD Admission Diagnosis: Pancreatitis, unspecified pancreatitis type [K85.90] Date: 09/22/2025 Room: [facility] Reviewed Pertinent hospital course: Yes Hospital Course PT/OT: 65 y/o F presents from OSH 09/14 w/ worsening constipation, abdominal pain, and generalized weakness. Pt became hypotensive, concern for septic shock. Labs significant for WBC 45.7 w/ neutrophilic shift, Hgb 11, PLT 407, AG elevated, lactate 6.4, BUN 20, Cr 2.2. Abd US 09/15:no acute abnormalities. CXR 09/15: hypoexpanded lungs with bibasilar airspace opacities, no pneumothorax. MRI Cholangiopancreatography 09/16: multiple small scattered foci of T2 hyperintensity in theR liver - c/f areas of inflammation/early abscess formation, possible cholangitis. 09/17 txfr to floor off pressors, continue Zosyn and plan to finalize abx. 09/19 PICC placed (chart reviewed 09/22). 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 Patient improved this date with tolerance to bed mobility, sit to stand, scooting to HOB, and rolling for pericare. Patient is limited by incontinence of bowel, fatigue, decreased endurance, global decondi tioning, B LE edema, decreased standing tolerance & balance. Patient will benefit from continued acute inpatient PT in order to promote return to PLOF and safely increase independence during functional mobility and transfers. PT will progress as tolerated and appropriate. Recommendation Recommendation: Short-term skilled PT (recommend 5x/week at discharge) Equipment Recommended: Patient already has needed DME, Rolling walker AM-PAC 6 Clicks Basic Mobility Inpatient Short Form: PT 6 Clicks Score: 15 Mobility Recommendations for Staff Patient ability: Patient transfers to chair/ bedside commode Assist needed: with 1 person assist Equipment/ Precautions needed: Requires assistive device, use gait belt Requires Assistive Device: Rolling walker Cognition Overall Cognitive Status: Within Functional Limits Cognitive Assessment: Arousal/ Alertness;Orientation Level;Behavior;Following Commands;Safety Judgment;Insight Arousal/Alertness: Alert Orientation Level: Oriented X4 Behavior: Appropriate;Cooperative Following Commands: Follows multistep commands Safety Judgment: Decreased awareness of need for assistance;Impaired judgment Insight: Demonstrated decreased insight into limitations and abilities to complete ADLs safely Pain Pain Score: (Not rated) Pain Location: Generalized Pain Descriptors: Aching;Sore Pain Intervention(s): Repositioned;Ambulation/increased activity Therapist reported pain to: RN aware Mobility Bed Mobility Rolling: Stand-by assistance;increased time to complete task;towards the left;towards the right;useof handrail Supine to Sit: Minimal assistance;increased time to complete task;head of bed elevated;towards the left;use of handrail Sit to Supine: Moderate assistance;increased time to complete task;head of bed flat;towards the right Transfers Sit to Stand: Minimal assistance;increased time to complete task;up to assistive device;cues for hand placement (EOB) Sit to Stand Assistive Device: Rolling walker Stand to Sit: Contact Guard assistance;increased time to complete task;with assistive device;cues for hand placement (to EOB) Stand to Sit Assistive Device: Rolling walker Other Transfers/ Comments: Patient scoots to HOB with CGA, VCs for technique Unable to progress further due to: incontinence of bowel, fatigue, decreased endurance, global deconditioning, B LE edema, decreased standing tolerance & balance Balance Sitting - Static: Supervision Sitting - Dynamic: Supervision Standing - Static: Contact Guard Assistance;With Assistive Device Standing-Static Assistive Device: Rolling walker Standing - Dynamic: Contact Guard Assistance;With Assistive Device Standing-Dynamic Assistive Device: Rolling walker Total time in standing: ~30 seconds Gait belt used: Yes Outcome Measures Exercise Therapeutic Exercises Side: bilateral Extremity: lower extremity Type of Exercise: AROM Supine Exercises: Ankle pumps;Quad sets;Gluteal sets;Short arc quads;Bridging without bolster;Straight legraising;ABduction/ADduction;Hook lying ABduction/ADduction;Heel slides Reps/Comments: AP x10 reps, QS/GS x3 reps each; remaining demonstrated for HEP 3x/day, 5-10 reps each Seated Exercises: Hip flexion;Long arc quads Reps/Comments: Demonstrated for HEP 3x/day, 5-10 reps each Position after Treatment and Safety Handoff Position after treatment and safety handoff Position after therapy session: Bed Details: RN notified;visitor present;Call light/ needs within reach Alarms: Bed Alarms Status: Activated and Interfaced with call system Goals Goals Met: Exercise Collaborated with: Patient Patient Stated Goal: to go home Goals to be met by: 09/23/25 Patient will transition from supine to sit: Independent Patient will transition from sit to supine: Independent Patient will transfer from sit to stand: Modified Independent, up to assistive device Patient will ambulate: Supervision, distance (in feet), with assistive device Ambulation Assistance Device: Rolling walker Distance (in feet): 50 ft Patient will participate in bilateral lower extremeity HEP in preperation for further functional mobility: 10 repetitions (independently for HEP) Pt Will report pain with functional mobility at: 4/10 or less Long-term goal to be met by: 09/30/25 Training Specialist Goal : Patient will ambulate 100+ ft mod I using RW Patient/Family Education Educated patient and patient's family on the role of physical therapy, goals, plan of care, importance of increased activity, discharge recommendations, home exercise program, and transfer training and fall prevention strategies, including need for supervision/ assistance with OOB activity and use of call light; patient and patient's family verbalized understanding. Handout(s) issued: supine & seated LE exercises. Plan Plan Treatment/Interventions: LE strengthening/ROM, Therapeutic Activity, Therapeutic Exercise, Patient/family training, Equipment eval/education, Gait training, Endurance training, Neuromuscular Reeducation, Stair Training PT Frequency during hospitalization: minimum 3x/week The plan of care and recommendations assesses the patient's and/or caregiver's readiness, willingness, and ability to provide or support functional mobility and ADL tasks as needed upon discharge. Time Start Time: 1213 Stop Time: 1253 Time Calculation (min): 40 min Charges $Therapeutic Activity: 3 units Problem List Problem List[1] Past Medical History Past Medical History: Diagnosis Date Acute non-ST segment elevation myocardial infarction ([facility]) 02/26/2023 Anxiety Atherosclerosis of coronary artery without angina pectoris 02/26/2023 COPD (chronic obstructive pulmonary disease) ([facility]) Heart failure with improved ejection fraction (HFimpEF) ([facility]) Stress-induced cardiomyopathy 02/26/2023 Past Surgical History Past Surgical History: Procedure Laterality Date SECTION CHOLECYSTECTOMY HYSTERECTOMY [1] Patient Active Problem List Diagnosis Mastocytosis Septic shock, resolved Coronary artery disease involving [place] coronary artery of [place] heart without angina pectoris Chronic anxiety Chronic diastolic (congestive) heart failure ([facility]) Gastroesophageal reflux disease without esophagitis Morbid obesity ([facility]) Pneumonia of both lower lobes due to infectious organism Elevated LFTs Simple chronic bronchitis ([facility]) APAR[place] (obstructive sleep apnea) Acute metabolic encephalopathy HFimpEF Constipation Chronic back+knee pain with R-sided sciatica Sepsis due to Escherichia coli with acute organ dysfunction ([facility]) Cystitis Migraine Acute pancreatitis Tremor Severe protein-calorie malnutrition ([facility]) COPD (chronic obstructive pulmonary disease) ([facility]) Normocytic anemia Weakness * Vic Armstrong OT - 09/21/2025 3:39 PM EDT Occupational Therapy Treatment Name: Laura Mallory : 1960 Attending Physician: Jj Morrison MD Admission Diagnosis: Pancreatitis, unspecified pancreatitis type [K85.90] Date: 09/21/2025 Room: [address] [place] [address] Reviewed Pertinent hospital course: Yes Hospital Course PT/OT: 65 y/o F presents from OSH 09/14 w/ worsening constipation, abdominal pain, and generalized weakness. Pt became hypotensive, concern for septic shock. Labs significant for WBC 45.7 w/ neutrophilic shift, Hgb 11, PLT 407, AG elevated, lactate 6.4, BUN 20, Cr 2.2. Abd US 09/15:no acute abnormalities. CXR 09/15: hypoexpanded lungs with bibasilar airspace opacities, no pneumothorax. MRI Cholangiopancreatography 09/16: multiple small scattered foci of T2 hyperintensity in theR liver - c/f areas of inflammation/early abscess formation, possible cholangitis. 09/17 txfr to floor off pressors, continue Zosyn and plan to finalize abx. 09/19 PICC placed (chart reviewed 09/21). Relevant PMH : HFimpEF (EF 55-60%) 2/2 Tak[place]o cardiomyopathy, non-obstructive CAD, COPD (baseline RA), GERD, OA, anxiety, chronic back pain Precautions: MAP > 65 Activity Level: Activity as tolerated Assist: None Recommendation Recommendation: Short-term skilled OT (recommend 5x/week at discharge) Equipment Recommendations: Patient already has needed DME Assessment Assessment: Decreased activity tolerance, Decreased Balance, Decreased ADL status, Decreased self-care transfers, Decreased IADLs, Decreased Functional Mobility, Decreased Safe judgment during ADL Prognosis for OT goals: Good Pt is pleasant and agreeable to session. Pt tolerated well as fair is able to complete 3 trails of sit to stand up to RW from EOB required mod A. Pt required max A for toilet hygiene while standing EOB. Pt is most limited due to decreased activity tolerance. Educated patient on SNF recommendation with minimal evidence of learning. Patient will benefit from continued acute inpatient occupational therapy to promote return to PLOF and to maximize functional independence and safety. Outcome Measures AM-PAC 6 Clicks Daily Activity Inpatient Short Form: OT 6 Clicks Score: 16 Cognition Overall Cognitive Status: Within Functional Limits Cognitive Assessment: Arousal/ Alertness;Orientation Level;Behavior;Following Commands;Insight;Safety Judgment Arousal/Alertness: Alert Orientation Level: Oriented X4 Behavior: Appropriate;Cooperative Following Commands: Follows all commands and directions without difficulty Safety Judgment: Decreased awareness of need for assistance Insight: Demonstrated decreased insight into limitations and abilities to complete ADLs safely Pain Pain Score: 0 - No Pain Pain Location: Leg Pain Intervention(s): Medication (See eMAR);Ambulation/increased activity;Warm blankets applied;Rest Therapist reported pain to: RN Functional Mobility Bed Mobility Supine to Sit: Minimal assistance;towards the right;use of handrail;head of bed elevated Sit to Supine: Moderate assistance;towards the left;head of bed flat Functional Transfers Sit to Stand: Moderate assistance;up to assistive device;increased time to complete task (3 trials) Sit to Stand Assistive Device: Rolling walker Stand to Sit: Maximum assistance;with assistive device;Moderate assistance Stand to Sit Assistive Device: Rolling walker Unable to progress further due to: generalized weakness and fatigue Balance Sitting - Static: Stand-by assistance Sitting - Dynamic: Contact Guard Assistance Standing - Static: Minimal Assistance;With Assistive Device Standing-Static Assistive Device: Rolling walker Standing - Dynamic: Moderate Assistance;With Assistive Device Standing-Dynamic Assistive Device: Rolling walker Gait belt used: Yes ADL Toileting: Maximum assistance Toileting Deficit: Toileting hygiene Location Assessed Toileting: Standing edge of bed;Seated edge of bed Toileting Deficit Additional Comments: pt attempted pericare while standing EOB and had a large LOBrequired max for descend to sitting EOB Position after Treatment/Safety Handoff Position after therapy session: Bed Details: RN notified;Call light/ needs within reach Alarms: Bed Alarms Status: Activated and Interfaced with call system Goals Goals to be met in: 1 week Patient stated goal: to return to baseline/PLOF Patient will complete supine to sit in prep for ADLs: Contact Guard assistance Patient will complete functional chair transfer: Stand-by assistance Patient will complete toilet transfer: Will tolerate assessment Patient will complete toileting: Moderate assistance (goal met and upgraded 09/20) Patient will complete lower body dressing: Minimal assistance Long-Term Goal : Pt will tolerate bathing assessment jail goal to be met in: 2 weeks Collaborated with: Patient Plan Plan Treatment Interventions: ADL retraining, Activity Tolerance training, Continued evaluation, Equipment eval/education, Functional transfer training, Compensatory technique education, Therapeutic Activity, UE strengthening/ROM, Excercise, Energy Conservation Progress: Progressing toward goals OT Frequency during hospitalization: minimum 3x/week The plan of care and recommendations assesses the patient's and/or caregiver's readiness, willingness, and ability to provide or support functional mobility and ADL tasks as needed upon discharge. Patient/Family Education Educated patient on the role of occupational therapy, OT goals, OT plan of care, discharge recommendation, ADL training, energy conservation techniques, functional mobility training, and the importance of safety and fall prevention strategies including need for supervision/ assistance with OOB activity and use of call light. patient verbalized understanding. OT Time Start Time: 1459 Stop Time: 1525 Time Calculation (min): 26 min OT Charges $Self Care/ADL/Home Management Trainin-37 mins Problem List Problem List[1] Past Medical History Past Medical History: Diagnosis Date Acute non-ST segment elevation myocardial infarction ([facility]) 02/26/2023 Anxiety Atherosclerosis of coronary artery without angina pectoris 02/26/2023 COPD (chronic obstructive pulmonary disease) ([facility]) Heart failure with improved ejection fraction (HFimpEF) ([facility]) Stress-induced cardiomyopathy 02/26/2023 Past Surgical History Past Surgical History: Procedure Laterality Date SECTION CHOLECYSTECTOMY HYSTERECTOMY [1] Patient Active Problem List Diagnosis Mastocytosis Septic shock, resolved Coronary artery disease involving [place] coronary artery of [place] heart without angina pectoris Chronic anxiety Chronic diastolic (congestive) heart failure ([facility]) Gastroesophageal reflux disease without esophagitis Morbid obesity ([facility]) Pneumonia of both lower lobes due to infectious organism Elevated LFTs Simple chronic bronchitis ([facility]) [place] (obstructive sleep apnea) Acute metabolic encephalopathy HFimpEF Constipation Chronic back+knee pain with R-sided sciatica Sepsis due to Escherichia coli with acute organ dysfunction ([facility]) Cystitis Migraine Acute pancreatitis Tremor Severe protein-calorie malnutrition ([facility]) COPD (chronic obstructive pulmonary disease) ([facility]) Normocytic anemia Weakness * Cora Golden, PT - 09/21/2025 12:58 PM EDT Physical Therapy Physical Therapy Treatment Name: Laura Mallory : 1960 Attending Physician: Jj Morrison MD Admission Diagnosis: Pancreatitis, unspecified pancreatitis type [K85.90] Date: 09/21/2025 Room: [address] [place] [address] Reviewed Pertinent hospital course: Yes Hospital Course PT/OT: 65 y/o F presents from OSH 09/14 w/ worsening constipation, abdominal pain, and generalized weakness. Pt became hypotensive, concern for septic shock. Labs significant for WBC 45.7 w/ neutrophilic shift, Hgb 11, PLT 407, AG elevated, lactate 6.4, BUN 20, Cr 2.2. Abd US 09/15:no acute abnormalities. CXR 09/15: hypoexpanded lungs with bibasilar airspace opacities, no pneumothorax. MRI Cholangiopancreatography 09/16: multiple small scattered foci of T2 hyperintensity in theR liver - c/f areas of inflammation/early abscess formation, possible cholangitis. 09/17 txfr to floor off pressors, continue Zosyn and plan to finalize abx. 09/19 PICC placed (chart reviewed 09/21). Relevant PMH : HFimpEF (EF 55-60%) 2/2 [place] cardiomyopathy, non-obstructive CAD, COPD (baseline RA), GERD, OA, anxiety, chronic back pain Precautions: MAP > 65 Activity Level: Activity as tolerated Assist: None Assessment Pt received and returned supine in bed, pleasant and agreeable to session. She requires increased assistance for mobility tasks compared to both baseline and evaluation. She would benefit from continued PT services at SNF upon D/C to address impairments impacting functional mobility prior to returnto home in order to maximize safety and independence with functional mobility. Assessment: Impaired Bed Mobility;Impaired Transfers;Impaired Gait;Impaired Balance;Impaired Stair Negotiation;Impaired Strength;Impaired Safety Awareness;Deconditioning Prognosis: Fair Recommendation Recommendation: Short-term skilled PT (recommend 5x/week at discharge) Equipment Recommended: Patient already has needed DME, Rolling walker AM-PAC 6 Clicks Basic Mobility Inpatient Short Form: PT 6 Clicks Score: 14 Mobility Recommendations for Staff Patient ability: Patient transfers to chair/ bedside commode, Bed in chair position during mealtimes (2-3 times per day) Assist needed: with 1 person assist Equipment/ Precautions needed: Requires assistive device, use gait belt Requires Assistive Device: Rolling walker Cognition Overall Cognitive Status: Within Functional Limits Cognitive Assessment: Arousal/ Alertness;Orientation Level;Behavior;Following Commands;Insight;Safety Judgment Arousal/Alertness: Alert Orientation Level: Oriented X4 Behavior: Appropriate;Cooperative Following Commands: Follows all commands and directions without difficulty Safety Judgment: Decreased awareness of need for assistance Insight: Demonstrated decreased insight into limitations and abilities to complete ADLs safely;Decreased awareness of need for assistance Pain Pain Score: 9 Pain Location: Leg Pain Intervention(s): Medication (See eMAR);Ambulation/increased activity;Warm blankets applied;Rest Therapist reported pain to: RN Mobility Bed Mobility Supine to Sit: Minimal assistance;head of bed elevated;use of handrail;towards the right Sit to Supine: Maximum assistance;head of bed flat;use of handrail;of 2 people (maxA to manage BLE during sit to supine, maxA x2 for repositioning in bed) Transfers Sit to Stand: Minimal assistance;Moderate assistance;up to assistive device;increased time to complete task (Lillian first trial, modA for remaining 3 STS with fatigue) Sit to Stand Assistive Device: Rolling walker Stand to Sit: Minimal assistance;with assistive device Stand to Sit Assistive Device: Rolling walker Lateral Transfer: Minimal assistance;towards the right;stand step;with assistive device Lateral Transfers Assistive Device: Rolling walker Other Transfers/ Comments: 1st STS with static stance w/ RW and dependent pericare, 2nd STS w/ standing marching x8 valeria, 3rd STS with lateral stepping to sit higher in bed Lillian Unable to progress further due to: fatigue Balance Sitting - Static: Independent Sitting - Dynamic: Supervision Standing - Static: Supervision;With Assistive Device Standing-Static Assistive Device: Rolling walker Standing - Dynamic: Contact Guard Assistance;With Assistive Device Standing-Dynamic Assistive Device: Rolling walker Gait belt used: Yes Position after Treatment and Safety Handoff Position after treatment and safety handoff Position after therapy session: Bed Details: RN notified;visitor present;Call light/ needs within reach Alarms: Bed Alarms Status: Activated and Interfaced with call system Goals Goals Met: None Collaborated with: Patient Patient Stated Goal: to go home Goals to be met by: 09/23/25 Patient will transition from supine to sit: Independent Patient will transition from sit to supine: Independent Patient will transfer from sit to stand: Modified Independent, up to assistive device Patient will ambulate: Supervision, distance (in feet), with assistive device Ambulation Assistance Device: Rolling walker Distance (in feet): 50 ft Patient will participate in bilateral lower extremeity HEP in preperation for further functional mobility: 10 repetitions Pt Will report pain with functional mobility at: 4/10 or less Long-term goal to be met by: 09/30/25 Training Specialist Goal : Patient will ambulate 100+ ft mod I using RW Patient/Family Education Educated patient on discharge recommendations and transfer training and fall prevention strategies,including use of call light; patient verbalized understanding. Plan Plan Treatment/Interventions: LE strengthening/ROM, Therapeutic Activity, Therapeutic Exercise, Patient/family training, Equipment eval/education, Gait training PT Frequency during hospitalization: minimum 3x/week The plan of care and recommendations assesses the patient's and/or caregiver's readiness, willingness, and ability to provide or support functional mobility and ADL tasks as needed upon discharge. Time Start Time: 923 Stop Time: 1020 Time Calculation (min): 56 min Charges $Gait/Mobility: 8-22 mins $Therapeutic Activity: 3 units Problem List Problem List[1] Past Medical History Past Medical History: Diagnosis Date Acute non-ST segment elevation myocardial infarction ([facility]) 02/26/2023 Anxiety Atherosclerosis of coronary artery without angina pectoris 02/26/2023 COPD (chronic obstructive pulmonary disease) ([facility]) Heart failure with improved ejection fraction (HFimpEF) ([facility]) Stress-induced cardiomyopathy 02/26/2023 Past Surgical History Past Surgical History: Procedure Laterality Date SECTION CHOLECYSTECTOMY HYSTERECTOMY [1] Patient Active Problem List Diagnosis Mastocytosis Septic shock, resolved Coronary artery disease involving [place] coronary artery of [place] heart without angina pectoris Chronic anxiety Chronic diastolic (congestive) heart failure ([facility]) Gastroesophageal reflux disease without esophagitis Morbid obesity ([facility]) Pneumonia of both lower lobes due to infectious organism Elevated LFTs Simple chronic bronchitis ([facility]) [place] (obstructive sleep apnea) Acute metabolic encephalopathy HFimpEF Constipation Chronic back+knee pain with R-sided sciatica Sepsis due to Escherichia coli with acute organ dysfunction ([facility]) Cystitis Migraine Acute pancreatitis Tremor Severe protein-calorie malnutrition ([facility]) COPD (chronic obstructive pulmonary disease) ([facility]) Normocytic anemia * Cora Randolph PharmD - 09/21/2025 10:04 AM EDT Clinical Pharmacy Progress Note: Pharmacotherapy Stewardship Transitions of Care A prescription for Trelegy inhaler was sent to Discharge Pharm[facility] as authorized by the primary team. The medication was covered by the patient's insurance. This medication has a patient copay of $0. There were no identified barriers to medication access. The team was notified; no further transitions of care needs identified at this time. ALEXANDER Escobedo, PharmD, BCPS Clinical Head Girls Golf Coach, Internal Medicine Preferred Communication: Epic Chat 09/21/2025 * Joe Gandara - 09/21/2025 7:26 AM EDT [facility] Internal Medicine - Progress Note Team: Noel Chief Concern / Reason for Follow-Up Sepsis due to Escherichia coli with acute organ dysfunction (CMS-HCC) Interval History No acute events overnight Patient noted pain at the site of her PICC line and her chronic pain in her legs. She noted significant improvement after she received her PRN meds. She denies any chest pain, SOB, abd pain this morning Intake/Output Summary (Last 24 hours) at 09/21/2025 0731 Last data filed at 09/21/2025 0500 Gross per 24 hour Intake 240 ml Output 2001 ml Net -1761 ml Physical Exam Temp: [97.4 ??F (36.3 ??C)-98.8 ??F (37.1 ??C)] 97.4 ??F (36.3 ??C) Heart Rate: [80-88] 87 Resp: [16-18] 16 BP: (105-146)/(62-103) 105/71 Physical Exam Constitutional: Appearance: Normal appearance. She is not ill-appearing. Eyes: Extraocular Movements: Extraocular movements intact. Conjunctiva/sclera: Conjunctivae normal. Cardiovascular: Rate and Rhythm: Normal rate and regular rhythm. Pulses: Normal pulses. Heart sounds: Normal heart sounds. Pulmonary: Effort: Pulmonary effort is normal. No respiratory distress. Breath sounds: Normal breath sounds. No wheezing or rales. Abdominal: General: Bowel sounds are normal. There is distension. Tenderness: There is no abdominal tenderness. Musculoskeletal: General: Swelling (In BLE, chronic, ansarca) present. Right lower leg: No edema. Left lower leg: No edema. Neurological: Mental Status: She is oriented to person, place, and time. Psychiatric: Mood and Affect: Mood normal. Assessment & Plan Laura Mallory is a 65 y.o. 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 [facility] Assessment & Plan Sepsis due to Escherichia coli with acute organ dysfunction ([facility]) Cystitis Septic shock, resolved OSH workup showed elevated lactate with associated hypotension, iso leukocytosis upto 45 with neutrophilic shift, overall concerning for septic shock. Confirmed E coli positive urine and blood cultures from OSH. Also considering cholangitis vs pancreatitis. Not concerned for cardiogenic shock givenpreserved EF on formal TTE. Not concerned for hemorrhagic shock due to no apparent bleeding. S/p 2 L IVF here, plus additional at OSH, meeting 30cc/kg. Lactate downtrended with initiation of pressors. Weaned off levo, bumped out to medicine. Sed rate was elevated. -MAP Goal >65, currently off pressors on floor -Primary team was able to call and confirm with [facility] lab that blood cx and urine cx both with E. Coli susceptible to Zosyn, media tab has the faxed records of the blood cx, unfortunatelythe urine cx data sent was for the NGTD culture instead of the original cx showing E. Coli. -Repeat blood culture at - NGTD - ID is following Acute pancreatitis Elevated LFTs Patient presented with acute abdominal pain and back pain, somewhat radiating, lipase ~3998 at OSH.Got fluid resuscitation per sepsis fluids. Although CT A/P non-con at OSH was reported normal, still meets criteria for acute pancreatitis. 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 With elevated bilirubin, leukocytosis and RUQ pain some c/f cholangitis as well. Normal triglycerides. Cholestatic pattern of injury. Lipase downtrended now 462. LFTs downtrending.Liver could have microinfarcts from shock as well. - GI following appreciate recs, MRCP w/o ductal dilation, no endoscopic plans for now, possible hadpassed stone +/- c/f hepatic abscess as below. [...] ESR, CRP, CMP, PICC line care weekly HFimpEF Home GDMT: Entresto 24-26 BID. Spironolactone (unsure if she has been taking it) 2/2 Takotsubo cardiomyopathy. Not in acute exacerbation. TTE 09/15/25 w/improved EF 60-65%. - Continue Coreg 3.125 BID, Entresto AM, aldactone PM with hold parameter if SBP<100 - BP is well controlled with all her GDMTs. - Continue to hold home lasix Constipation -Miralax BID, senna increased to 2 tablets BID Severe protein-calorie malnutrition ([facility]-HCC) Meets criteria per RD assessment. Difficulty with poor appetite, nausea/vomiting, swallowing difficulty with meats. Food insecurity noted. - Tolerating diet - Continue regular diet, encourage PO intake Coronary artery disease involving [place] coronary artery of [place] heart without angina pectoris No acute concerns. On atorvastatin 40mg at home. - Continue ASA Normocytic anemia Baseline Hg around 9-10. All cell lines decreased during hospitalization with fluids. -continue to monitor Chronic anxiety -continue home duloxetine and atarax Gastroesophageal reflux disease without esophagitis Home regimen: omeprazole -Continue TI pantoprazole 40 COPD (chronic obstructive pulmonary disease) (CMS-HCC) On RA at baseline, vitally stable since admission. Not concerned for COPD exacerbation. Desatted to86, required 2L NC overnight. - home LAMA, LABA, ICS APARNA (obstructive sleep apnea) Suspected, noted in chart, not on CPAP/BiPAP. -outpatient sleep study Chronic back+knee pain with R-sided sciatica -holding home celecoxib in hospitall, could resume when BP more stable -continue home duloxetine and gabapentin -Tylenol PRN Migraine -continue home topamax Tremor Baseline, chronic. -continue home Topamax Weakness PT/OT evaluated the patient and recommended Short-term skilled PT/OT placement. DVT Prophylaxis: subcutaneous heparin (prophylaxis) Code Status: Full Code Medical Readiness for Discharge: Anticipated Tomorrow JOE GANDARA 09/21/2025 7:26 AM Cosigned by Jj Morrison MD at 09/21/2025 10:42 PM EDT Associated attestation - Jj Morrison MD - 09/21/2025 10:42 PM EDT Hospital Medicine Attending Supervision Note [facility] // [facility] Laura Mallory was seen on 09/21/25 on rounds with the medical student. I have personally performed the physical exam and medical decision making. I reviewed the documentation by the medical student andagree as documented, with the following additions or clarifications Reason for today's visit: Sepsis due to Escherichia coli with acute organ dysfunction (CMS-HCC) Supplemental History / ROS Agree PT/OT saw and now recommending SNF for significant debility. Supplemental Exam Alert and oriented. S1S2. Nml work of breathing. Still with anasarca but seems better today - leg swelling improved from yesterday. Assessment & Plan Principal Problem: Sepsis due to Escherichia coli with acute organ dysfunction (CMS-HCC) Active Problems: Septic shock, resolved Coronary artery disease involving [place] coronary artery of [place] heart without angina pectoris Chronic anxiety Gastroesophageal reflux disease without esophagitis Elevated LFTs APARNA (obstructive sleep apnea) HFimpEF Constipation Chronic back+knee pain with R-sided sciatica Cystitis Migraine Acute pancreatitis Tremor Severe protein-calorie malnutrition (CMS-HCC) COPD (chronic obstructive pulmonary disease) (CMS-HCC) Normocytic anemia Weakness Laura Mallory is a 65 y.o. female with HFimpEF, CAD, COPD, GERD, OA, anxiety, and chronic pain who initially presented to [facility] with malaise and back/flank pain, found to be in septic chockand transferred to [facility]. EColi bacteremia, cystitis, possible hepatic abscess formation - Planned for 4 weeks IV Zosyn then 2 week po Augmentin. PICC placed 09/19 - outpatient ID follow-up with repeat abd imaging, needs weekly safety labs - outpatient urology follow-up, will place referral HFimpEF Cont Coreg, Entresto, and aldactone tonight. Continue holding lasix. Close PCP follow-up. Deconditioning PT/OT saw today and now recommending SNF for significant debility. Patient and family would like togo home with [facility]. I asked to be presented while PT works with patient this afternoon to seeif feels all her needs could be adequately met home. Ultimately they would like to go home with [facility]. Unable to arrange for abx delivery tonight so plan for early discharge tomorrow. Med Rec - need to clarify the following meds: ativan (last filled 07/14) Cont home tramadol vs replace with low dose oxy? Add bowel regimen. On famotide + omeprazole - why both? Taking Linzess? (last filled 05/23) Medical Decision Making: Two stable chronic illnesses One acute illness with systemic symptoms Prescription drug management The HPI, ROS, physical exam, test results, and assessment & plan were reviewed and copied forward (with edits) from a note written by myself or an Internal Medicine / Hospital Medicine Dredge Deckhand on 09/20/25. I have updated the history, physical exam, data, assessment, and plan of the note so that it reflects my evaluation and management of the patient on 09/21/2025. JON BAUTISTA MD Attending Physician Section of Hospital Medicine Department of Internal Medicine Pager ID: [phone] 10:18 PM, 09/21/2025 * Lizet Hair MD - 09/20/2025 8:48 PM EDT [facility] Internal Medicine - Progress Note Team: Noel Chief Concern / Reason for Follow-Up Sepsis due to Escherichia coli with acute organ dysfunction (CMS-HCC) Interval History Patient had some upper chest pain earlier that had gone away when team saw her. Physical Exam Temp: [97.5 ??F (36.4 ??C)-98.2 ??F (36.8 ??C)] 98.2 ??F (36.8 ??C) Heart Rate: [80-88] 80 Resp: [16] 16 BP: (125-146)/(62-103) 125/62 Physical Exam Constitutional: General: She is not in acute distress. HENT: Head: Normocephalic and atraumatic. Eyes: General: No scleral icterus. Extraocular Movements: Extraocular movements intact. Pupils: Pupils are equal, round, and reactive to light. Cardiovascular: Rate and Rhythm: Normal rate and regular rhythm. Heart sounds: No murmur heard. No friction rub. No gallop. Pulmonary: Effort: No respiratory distress. Breath sounds: No stridor. No wheezing. Abdominal: General: Bowel sounds are normal. There is no distension. Tenderness: There is no abdominal tenderness. There is no guarding. Comments: Left sided abdominal TTP Musculoskeletal: Right lower leg: Edema (Mild pitting edema) present. Left lower leg: Edema present. Skin: Findings: No rash. Neurological: General: No focal deficit present. Mental Status: She is oriented to person, place, and time. Psychiatric: Mood and Affect: Mood normal. Diagnostic Studies I have reviewed labs. WBC 11.8 Mg 1.7-replaced No new imaging. Assessment & Plan Laura Mallory is a 65 y.o. 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 [facility] Assessment & Plan Sepsis due to Escherichia coli with acute organ dysfunction ([facility]) Cystitis Septic shock, resolved OSH workup showed elevated lactate with associated hypotension, iso leukocytosis upto 45 with neutrophilic shift, overall concerning for septic shock. Confirmed E coli positive urine and blood cultures from OSH. Also considering cholangitis vs pancreatitis. Not concerned for cardiogenic shock givenpreserved EF on formal TTE. Not concerned for hemorrhagic shock due to no apparent bleeding. S/p 2 L IVF here, plus additional at OSH, meeting 30cc/kg. Lactate downtrended with initiation of pressors. Weaned off levo, bumped out to medicine. Sed rate was elevated. -MAP Goal >65, currently off pressors on floor -Primary team was able to call and confirm with [facility] lab that blood cx and urine cx both with E. Coli susceptible to Zosyn, media tab has the faxed records of the blood cx, unfortunatelythe urine cx data sent was for the [...] ESR, CRP, CMP and fax labs to [facility] at [phone] PICC line care weekly - primary team ordered PICC consult Will arrange [facility] follow up. -Repeat blood culture at [facility] Acute pancreatitis Elevated LFTs Patient presented with acute abdominal pain and back pain, somewhat radiating, lipase ~3998 at OSH.Got fluid resuscitation per sepsis fluids. Although CT A/P non-con at OSH was reported normal, still meets criteria for acute pancreatitis. 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 With elevated bilirubin, leukocytosis and RUQ pain some c/f cholangitis as well. Normal triglycerides. Cholestatic pattern of injury. Lipase downtrended now 462. LFTs downtrending.Liver could have microinfarcts from shock as well. - GI following appreciate recs, MRCP w/o ductal dilation, no endoscopic plans for now, possible hadpassed stone +/- c/f hepatic abscess as below. Abx per ID. Will refer for OP GI follow up with consideration of outpatient endoscopic evaluation. Signed off. - s/p maintenance IVF HFimpEF Home GDMT: Entresto 24-26 BID. Spironolactone (unsure if she has been taking it) 2/2 Takotsubo cardiomyopathy. Not in acute exacerbation. TTE 09/15/25 w/improved EF 60-65%. Patientwas mildly hypotensive last night (lowest 92/55) . Will hold home GDMT for now, - Continue Coreg 3.125 BID - Restart Entresto AM, aldactone PM with hold parameter if SBP<100 - Hold home lasix Constipation -Miralax BID, senna increased to 2 tablets BID Severe protein-calorie malnutrition (CMS-HCC) Meets criteria per RD assessment. Difficulty with poor appetite, nausea/vomiting, swallowing difficulty with meats. Food insecurity noted. - Tolerating diet - Continue regular diet, encourage PO intake Coronary artery disease involving [place] coronary artery of [place] heart without angina pectoris No acute concerns. On atorvastatin 40mg at home. - Continue ASA Normocytic anemia Baseline Hg around 9-10. All cell lines decreased during hospitalization with fluids. -continue to monitor Chronic anxiety -continue home duloxetine and atarax Gastroesophageal reflux disease without esophagitis Home regimen: omeprazole -Continue TI pantoprazole 40 COPD (chronic obstructive pulmonary disease) ([facility]) On RA at baseline, vitally stable since admission. Not concerned for COPD exacerbation. Desatted to86, required 2L NC overnight. - home LAMA, LABA, ICS APARNA (obstructive sleep apnea) Suspected, noted in chart, not on CPAP/BiPAP. -outpatient sleep study Chronic back+knee pain with R-sided sciatica -holding home celecoxib in hospitall, could resume when BP more stable -continue home duloxetine and gabapentin -Tylenol PRN Migraine -continue home topamax Tremor Baseline, chronic. -continue home Topamax DVT Prophylaxis: enoxaparin (prophylaxis) Code Status: Full Code Medical Readiness for Discharge: Anticipated Tomorrow pending tolerating adding back on GDMT, askedsocial work to arrange a PCP appt for later this week LIZET HAIR MD PGY-2 Internal Medicine Resident Green Team 09/20/2025 8:48 PM Cosigned by Jj Morrison MD at 09/20/2025 9:02 PM EDT Associated attestation - Jj Morrison MD - 09/20/2025 9:02 PM EDT Hospital Medicine Attending Supervision Note [facility] // [facility] Laura Mallory was seen on 09/20/25. I personally interviewed and examined the patient. I reviewed thedocumentation by the resident and agree as documented unless otherwise stated below. Reason for today's visit: Sepsis due to Escherichia coli with acute organ dysfunction ([facility]) Supplemental History / ROS agree Supplemental Exam agree Assessment & Plan Principal Problem: Sepsis due to Escherichia coli with acute organ dysfunction ([facility]) Active Problems: Septic shock, resolved Coronary artery disease involving [place] coronary artery of [place] heart without angina pectoris Chronic anxiety Gastroesophageal reflux disease without esophagitis Elevated LFTs APARNA (obstructive sleep apnea) HFimpEF Constipation Chronic back+knee pain with R-sided sciatica Cystitis Migraine Acute pancreatitis Tremor Severe protein-calorie malnutrition (CMS-HCC) COPD (chronic obstructive pulmonary disease) (CMS-HCC) Normocytic anemia Laura Mallory is a 65 y.o. female with HFimpEF, CAD, COPD, GERD, OA, anxiety, and chronic pain who initially presented to [facility] with malaise and back/flank pain, found to be in septic chockand transferred to [facility]. EColi bacteremia, cystitis, possible hepatic abscess formation - [place] ID recs. Planned for 4 weeks IV Zosyn then 2 week po Augmentin. PICC placed yesterday. - outpatient ID follow-up with repeat abd imaging - outpatient urology follow-up HFimpEF Cont coreg. BP better, resume Entresto this afternoon and aldactone tonight. Has anasarca - hopefully resumption of these will help with diuresis. Hold lasix. Close PCP follow-up. Medical Decision Making: Level 2 - Moderate Two stable chronic illnesses Prescription drug management JON BAUTISTA MD Attending Physician Section of Hospital Medicine Department of Internal Medicine [place]: [phone] 8:57 PM, 09/20/2025 * Nona Goodson RD - 09/20/2025 4:30 PM EDT [facility] Medical Nutrition Therapy Follow-Up Diet Order: High calorie 3000 kcal/day Nutrition Support: none Malnutrition Status Pt meets criteria for Severe protein-calorie malnutrition based on ASPEN/AND malnutrition diagnostic characteristics (09/15). Pertinent Information: Pt's diet was advanced on 09/16 and she transferred from the MICU on 09/17. PO intake documented 0-80% x 4 meals since last assessment. Pt reports her appetite is doing okay, she does not recall what she had for breakfast but is waiting on lunch at time of visit. Encouraged increased PO intake, pt is agreeable to try Boost supplements. Last BM Date: 09/17/25. Scheduled Meds: aspirin 81 mg Oral Daily 0900 [Held by provider] atorvastatin 40 mg Oral Daily 0900 carvediloL 3.125 mg Oral BID DULoxetine 60 mg Oral Daily 0900 [Held by provider] furosemide 40 mg Oral BID gabapentin 100 mg Oral TID heparin 5,000 Units Subcutaneous 3 times per day umeclidinium-vilanteroL 1 puff Inhalation RT Daily And mometasone 220 mcg/puff 1 puff Inhalation RT Daily pantoprazole 40 mg Oral DAILY 0600 piperacillin-tazobactam (ZOSYN) IV extended interval 4.5 g Intravenous Q8H polyethylene glycol 17 g Oral BID sacubitriL-valsartan 1 tablet Oral BID senna 2 tablet Oral BID spironolactone 25 mg Oral BID topiramate 100 mg Oral Daily 0900 topiramate 150 mg Oral Nightly (2100) Continuous Infusions: PRN Meds:acetaminophen, aluminum & magnesium hydroxide-simethicone, bisacodyL, hydrOXYzine HCL,oxyCODONE OR oxyCODONE Pertinent Labs: Lab Results Component Value Date CREATININE 0.46 (L) 09/20/2025 BUN 3 (L) 09/20/2025 NA 137 09/20/2025 K 3.8 09/20/2025 CL 105 09/20/2025 CO2 24 09/20/2025 Lab Results Component Value Date ALBUMIN 2.7 (L) 09/20/2025 ALBUMIN 2.7 (L) 09/20/2025 No results found for: PREALBUMIN Lab Results Component Value Date CALCIUM 8.1 (L) 09/20/2025 PHOS 4.1 09/20/2025 Lab Results Component Value Date MG 1.7 09/20/2025 Lab Results Component Value Date POCGMD 99 09/16/2025 No results found for: HGBA1C Lab Results Component Value Date CRP 172.8 (H) 09/18/2025 Weight History: Wt Readings from Last 5 Encounters: 09/14/25 (!) 232 lb 5.8 oz (105.4 kg) 05/27/25 (!) 270 lb 4.5 oz (122.6 kg) 10/14/17 (!) 311 lb (141.1 kg) Established Estimated Nutrition Needs: Needs based On: 56.8 kg IBW Kcals/day: 2721-7724 (22-25 kcal/kg) Protein g/day: 114 (2 g/kg) Carbohydrate g/day: Not restricted Fluid ml/day: ~1mL/kcal or per MD Established Nutrition Diagnosis Nutrition Diagnosis: inadequate oral intake Related To: restrictive diets As Evidenced By: NPO since admission Established Nutrition Intervention: Advance diet as medically feasible Established Goals: Diet within 24 hours Goals: Met Additional Nutrition Related Problems Nutrition Diagnosis: inadequate oral intake Related To: poor appetite As Evidenced By: PO intake majority less than 50% of meals Additional Recommended Interventions: Add/Change Medical Food Supplement/Snack and Monitor PO Intake/Tolerance Additional Goals:Total energy intake improved as evidenced by PO intake at least 50-75% of meals/supplements/snacks within 5 days Discharge Planning and Education: Discharge plan of care for nutrition pending clinical course. Follow up per nutrition services protocol while inpatient. Additional Recommendation(s) to Physicians: Ordered Boost Plus TID to promote PO intake. Continue to monitor PO intakes, ONS utilization, weights and nutrition related labs. Nona Goodson RD, LD Clinical Dietitian * YUNI Ybarra - 09/20/2025 2:08 PM EDT Images from the original note were not included. Best Possible Admission Medication History/Reconciliation Department of Pharmacy Services Patient Name: Laura Mallory, : 1960 Medication history has been completed by: Health Promotion Manager Prior to Admission (ROLLER PRESSER OPERATOR) Medication list: reuse technician/Student pharmacist completed this progress note, see pharmacist attestation forfull ROLLER PRESSER OPERATOR medication list. Source(s) of information: Surescripts/Retail Rx dispense history reviewed Interview with patient Interview with family member/caregiver/etc - Spouse Primary Care Physician: MANAS BLANCAS MD Home Pharmacy: [facility] [address] [place] [phone] Medication management assistance at home? Yes. If yes, from whom? Spouse/family member - Spouse Allergies updated: n/a Medications flagged for removal and (patient reported) reason for discontinuation: Oxybutynin - therapy completed Medications added to medication list: See medication list for specific doses, routes, and frequencies Topiramte 100mg, Nitrofurantoin 100mg Medications adjusted or instructions changed: Topiramate - added dose, route, and frequency Nitrofurantoin - added dose, route, and frequency Gabapentin - updated from scheduled to PRN Other notes: n/a YUNI YBARRA 09/20/2025 2:09 PM MR Tracking Flowsheet Data: Cosigned by Marion Arceo PharmD at 09/21/2025 8:54 AM EDT Associated attestation - Marion Arceo PharmD - 09/21/2025 8:54 AM EDT Medication history completed by director pharmacy services/student. Please see progress note for details. To my knowledge, the below is the best possible medication history as of 09/21/2025. Please contact with questions and/or concerns. Medication Reconciliation: Clinically significant discrepancies reported to primary team: No discrepancies to report Patient has likely been non-adherent to Trelegy and spironolactone prior to admission Unable to recall last doses and fill hx reflects that patient had run out Updated Prior to Admission Med List: Home Medications Medication Sig Taking? Last Dose aspirin 81 MG EC tablet Take 1 tablet (81 mg total) by mouth daily. Yes 09/14/2025 atorvastatin (LIPITOR) 40 MG tablet Take 1 tablet (40 mg total) by mouth daily. Yes 09/13/2025 carvediloL (COREG) 3.125 MG tablet Take 1 tablet (3.125 mg total) by mouth 2 times a day. Yes 09/14/2025 celecoxib (CELEBREX) 100 MG capsule Take 1 capsule (100 mg total) by mouth 2 times a day. Yes 09/13/2025 cholecalciferol, vitamin D3, 50 mcg (2,000 unit) Cap Take 1 capsule by mouth daily. Yes 09/13/2025 DULoxetine (CYMBALTA) 60 MG capsule Take 1 capsule (60 mg total) by mouth at bedtime. Yes 09/13/2025 famotidine (PEPCID) 20 MG tablet Take 1 tablet (20 mg total) by mouth daily. Yes Past Month furosemide (LASIX) 40 MG tablet Take 1 tablet (40 mg total) by mouth 2 times a day. Yes 09/13/2025 gabapentin (NEURONTIN) 100 MG capsule Take 1 capsule (100 mg total) by mouth 3 times a day. Patient taking differently: Take 1 capsule (100 mg total) by mouth 3 times a day as needed. Yes 09/12/2025 hydrOXYzine HCL (ATARAX) 25 MG tablet Take 1 tablet (25 mg total) by mouth 2 times a day as needed for Itching or Anxiety. Yes 09/12/2025 LINZESS 72 mcg Cap Take 1 capsule (72 mcg total) by mouth every morning before breakfast. Yes Past Month LORazepam (ATIVAN) 0.5 MG tablet Take 1 tablet (0.5 mg total) by mouth daily as needed for Anxiety.Yes Past Month omeprazole (PRILOSEC) 20 MG capsule Take 1 capsule (20 mg total) by mouth every morning before breakfast. Yes 09/13/2025 sacubitriL-valsartan (ENTRESTO) 24-26 mg Tab Take 1 tablet by mouth 2 times a day. Yes 09/14/2025 spironolactone (ALDACTONE) 25 MG tablet Take 1 tablet (25 mg total) by mouth 2 times a day. Yes Past Month topiramate (TOPAMAX) 100 MG tablet Take 1.5 tablets (150 mg total) by mouth at bedtime. Take in addition to 100 mg in the morning for a total daily dose of 250 mg. Yes 09/13/2025 topiramate (TOPAMAX) 100 MG tablet Take 1 tablet (100 mg total) by mouth every morning. Take in addition to 150 mg at bedtime for a total daily dose of 250 mg. Yes 09/13/2025 traMADoL (ULTRAM) 50 mg tablet Take 1 tablet (50 mg total) by mouth every 8 hours as needed for Pain. Yes 09/13/2025 TRELEGY ELLIPTA 100-62.5-25 mcg DsDv Inhale 1 puff into the lungs daily. Yes Past Month Marion Arceo, PharmD 09/21/2025, 8:45 AM * Vic Armstrong, OT - 09/20/2025 12:13 PM EDT Occupational Therapy Treatment Name: Laura Mallory : 1960 Attending Physician: Marisol Lovett MD Admission Diagnosis: Pancreatitis, unspecified pancreatitis type [K85.90] Date: 09/20/2025 Room: 7425/U7425 Reviewed Pertinent hospital course: Yes Hospital Course PT/OT: 65 y/o F presents from OSH 09/14 w/ worsening constipation, abdominal pain, and generalized weakness. Pt became hypotensive, concern for septic shock. Labs significant for WBC 45.7 w/ neutrophilic shift, Hgb 11, PLT 407, AG elevated, lactate 6.4, BUN 20, Cr 2.2. Abd US 09/15:no acute abnormalities. CXR 09/15: hypoexpanded lungs with bibasilar airspace opacities, no pneumothorax. MRI Cholangiopancreatography 09/16: multiple small scattered foci of T2 hyperintensity in theR liver - c/f areas of inflammation/early abscess formation, possible cholangitis. 09/17 txfr to floor off pressors, continue Zosyn and plan to finalize abx (chart reviewed 09/20). Relevant PMH : HFimpEF (EF 55-60%) 2/2 Takotsubo cardiomyopathy, non-obstructive CAD, COPD (baseline RA), GERD, OA, anxiety, chronic back pain Precautions: MAP > 65 Activity Level: Activity as tolerated Assist: None Recommendation Recommendation: Short-term skilled OT (recommend 5x/week at discharge) Equipment Recommendations: Patient already has needed DME Assessment Assessment: Decreased activity tolerance, Decreased Balance, Decreased ADL status, Decreased self-care transfers, Decreased IADLs, Decreased Functional Mobility Prognosis for OT goals: Good Pt is pleasant and agreeable to session. Pt required increased assistance to complete functional mobility and ADLs as compared to previous session. Recommend for patient to receive therapy at a facility level prior to discharge home. Patient will benefit from continued acute inpatient occupational therapy to promote return to PLOF and to maximize functional independence and safety. Outcome Measures AM-PAC 6 Clicks Daily Activity Inpatient Short Form: OT 6 Clicks Score: 16 Cognition Overall Cognitive Status: Within Functional Limits Arousal/Alertness: Alert Orientation Level: Oriented X4 Behavior: Appropriate;Cooperative Following Commands: Follows multistep commands Safety Judgment: Decreased safety awareness;Decreased awareness of need for assistance Insight: Demonstrated decreased insight into limitations and abilities to complete ADLs safely Pain Pain Score: 0 - No Pain Functional Mobility Bed Mobility Supine to Sit: Minimal assistance;head of bed elevated;towards the left Sit to Supine: Moderate assistance;head of bed flat;towards the right Functional Transfers Sit to Stand: Minimal assistance;Moderate assistance;up to assistive device Sit to Stand Assistive Device: Rolling walker Stand to Sit: Minimal assistance;with assistive device Stand to Sit Assistive Device: Rolling walker Functional Mobility: Minimal assistance;Moderate assistance;with assistive device;increased time tocomplete task Functional Mobility Assistive Device: Rolling walker Functional Mobility Comment: 3 bouts of side steps/ forward and back lorenzo steps. min A regressing to mod A with fatigue Balance Sitting - Static: Stand-by assistance Sitting - Dynamic: Contact Guard Assistance Standing - Static: Minimal Assistance;With Assistive Device Standing-Static Assistive Device: Rolling walker Standing - Dynamic: Minimal Assistance;Moderate Assistance;With Assistive Device Standing-Dynamic Assistive Device: Rolling walker Gait belt used: Yes ADL Toileting: Maximum assistance Toileting Deficit: Toileting hygiene;incontinent of bowel/bladder Location Assessed Toileting: Standing edge of bed;Supine in bed Position after Treatment/Safety Handoff Position after therapy session: Bed Details: RN notified;Call light/ needs within reach Alarms: Bed Alarms Status: Activated and Interfaced with call system Goals Goals to be met in: 1 week Patient stated goal: to return to baseline/PLOF Patient will complete supine to sit in prep for ADLs: Contact Guard assistance Patient will complete functional chair transfer: Stand-by assistance Patient will complete toilet transfer: Will tolerate assessment Patient will complete toileting: Moderate assistance (goal met and upgraded 09/20) Patient will complete lower body dressing: Minimal assistance Long-Term Goal : Pt will tolerate bathing assessment jail goal to be met in: 2 weeks Collaborated with: Patient Plan Plan Treatment Interventions: ADL retraining, Activity Tolerance training, Continued evaluation, Equipment eval/education, Functional transfer training, Compensatory technique education, Therapeutic Activity, UE strengthening/ROM, Excercise, Energy Conservation OT Frequency during hospitalization: minimum 3x/week The plan of care and recommendations assesses the patient's and/or caregiver's readiness, willingness, and ability to provide or support functional mobility and ADL tasks as needed upon discharge. Patient/Family Education Educated patient and patient's family on the role of occupational therapy, OT goals, OT plan of care, discharge recommendation, ADL training, energy conservation techniques, functional mobility training, and the importance of safety and fall prevention strategies including need for supervision/ assistance with OOB activity and use of call light. patient verbalized understanding. OT Time Start Time: 1106 Stop Time: 1144 Time Calculation (min): 38 min OT Charges $Therapeutic Activity: 8-22 mins $Self Care/ADL/Home Management Trainin-37 mins Problem List Problem List[1] Past Medical History Past Medical History: Diagnosis Date Acute non-ST segment elevation myocardial infarction ([facility]) 02/26/2023 Anxiety Atherosclerosis of coronary artery without angina pectoris 02/26/2023 COPD (chronic obstructive pulmonary disease) ([facility]) Heart failure with improved ejection fraction (HFimpEF) ([facility]) Stress-induced cardiomyopathy 02/26/2023 Past Surgical History Past Surgical History: Procedure Laterality Date SECTION CHOLECYSTECTOMY HYSTERECTOMY [1] Patient Active Problem List Diagnosis Mastocytosis Septic shock, resolved Coronary artery disease involving [place] coronary artery of [place] heart without angina pectoris Chronic anxiety Chronic diastolic (congestive) heart failure ([facility]) Gastroesophageal reflux disease without esophagitis Morbid obesity ([facility]) Pneumonia of both lower lobes due to infectious organism Elevated LFTs Simple chronic bronchitis ([facility]) APARNA (obstructive sleep apnea) Acute metabolic encephalopathy HFimpEF Constipation Chronic back+knee pain with R-sided sciatica Sepsis due to Escherichia coli with acute organ dysfunction ([facility]) Cystitis Migraine Acute pancreatitis Tremor Severe protein-calorie malnutrition ([facility]) COPD (chronic obstructive pulmonary disease) ([facility]) Normocytic anemia * Lizet Hair MD - 09/19/2025 4:13 PM EDT [facility] Internal Medicine - Progress Note Team: Noel Chief Concern / Reason for Follow-Up Sepsis due to Escherichia coli with acute organ dysfunction ([facility]) Interval History Patient had some abdominal cramps overnight that self-resolved. She has not had a bowel movement since before she got to the MICU 5 days ago. Physical Exam Temp: [97.5 ??F (36.4 ??C)-98.6 ??F (37 ??C)] 97.8 ??F (36.6 ??C) Heart Rate: [69-82] 78 Resp: [16-18] 18 BP: (111-132)/(68-83) 116/68 Physical Exam Constitutional: General: She is not in acute distress. HENT: Head: Normocephalic and atraumatic. Eyes: General: No scleral icterus. Extraocular Movements: Extraocular movements intact. Pupils: Pupils are equal, round, and reactive to light. Cardiovascular: Rate and Rhythm: Normal rate and regular rhythm. Heart sounds: No murmur heard. No friction rub. No gallop. Pulmonary: Effort: No respiratory distress. Breath sounds: No stridor. No wheezing. Abdominal: General: Bowel sounds are normal. There is no distension. Tenderness: There is abdominal tenderness. There is no guarding. Comments: Left sided abdominal TTP Musculoskeletal: Right lower leg: Edema (Mild pitting edema) present. Left lower leg: Edema present. Skin: Findings: No rash. Neurological: General: No focal deficit present. Mental Status: She is oriented to person, place, and time. Psychiatric: Mood and Affect: Mood normal. Assessment & Plan Laura Mallory is a 65 y.o. 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 [facility] Assessment & Plan Sepsis due to Escherichia coli with acute organ dysfunction ([facility]) Cystitis Septic shock, resolved OSH workup showed elevated lactate with associated hypotension, iso leukocytosis upto 45 with neutrophilic shift, overall concerning for septic shock. Confirmed E coli positive urine and blood cultures from OSH. Also considering cholangitis vs pancreatitis. Not concerned for cardiogenic shock givenpreserved EF on formal TTE. Not concerned for hemorrhagic shock due to no apparent bleeding. S/p 2 L IVF here, plus additional at OSH, meeting 30cc/kg. Lactate downtrended with initiation of pressors. Weaned off levo, bumped out to medicine. Sed rate was elevated. -MAP Goal >65, currently off pressors on floor -Primary team was able to call and confirm with [facility] lab that blood cx and urine cx both with E. Coli susceptible to Zosyn, media tab has the faxed records of the blood cx, unfortunatelythe urine cx data sent was for the [...] CMP and fax labs to [facility] at [phone] PICC line care weekly - primary team ordered PICC consult Will arrange [facility] follow up. -Repeat blood culture at - NGTD Acute pancreatitis Elevated LFTs Patient presented with acute abdominal pain and back pain, somewhat radiating, lipase ~3998 at OSH.Got fluid resuscitation per sepsis fluids. Although CT A/P non-con at OSH was reported normal, still meets criteria for acute pancreatitis. 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 With elevated bilirubin, leukocytosis and RUQ pain some c/f cholangitis as well. Normal triglycerides. Cholestatic pattern of injury. Lipase downtrended now 462. LFTs downtrending.Liver could have microinfarcts from shock as well. - GI following appreciate recs, MRCP w/o ductal dilation, no endoscopic plans for now, possible hadpassed stone +/- c/f hepatic abscess as below. Abx per ID. Will refer for OP GI follow up with consideration of outpatient endoscopic evaluation. Signed off. - s/p maintenance IVF HFimpEF Home GDMT: Entresto 24-26 BID. Spironolactone (unsure if she has been taking it) 2/2 Takotsubo cardiomyopathy. Not in acute exacerbation. TTE 09/15/25 w/improved EF 60-65%. Patientwas mildly hypotensive last night (lowest 92/55) . Will hold home GDMT for now, - Continue Coreg 3.125 BID - Get Orthostatic vitals - Hold home lasix Constipation -Miralax BID, senna increased to 2 tablets BID Severe protein-calorie malnutrition ([facility]) Meets criteria per RD assessment. Difficulty with poor appetite, nausea/vomiting, swallowing difficulty with meats. Food insecurity noted. - Tolerating diet - Continue regular diet, encourage PO intake Coronary artery disease involving [place] coronary artery of [place] heart without angina pectoris No acute concerns. On atorvastatin 40mg at home. - Continue ASA Normocytic anemia Baseline Hg around 9-10. All cell lines decreased during hospitalization with fluids. -continue to monitor Chronic anxiety -continue home duloxetine and atarax Gastroesophageal reflux disease without esophagitis Home regimen: omeprazole -Continue TI pantoprazole 40 COPD (chronic obstructive pulmonary disease) ([facility]) On RA at baseline, vitally stable since admission. Not concerned for COPD exacerbation. Desatted to86, required 2L NC overnight. - home LAMA, LABA, ICS APARNA (obstructive sleep apnea) Suspected, noted in chart, not on CPAP/BiPAP. -outpatient sleep study Chronic back+knee pain with R-sided sciatica -holding home celecoxib in hospitall, could resume when BP more stable -continue home duloxetine and gabapentin -Tylenol PRN Migraine -continue home topamax Tremor Baseline, chronic. -continue home Topamax DVT Prophylaxis: enoxaparin (prophylaxis) Code Status: Full Code Medical Readiness for Discharge: Anticipated Tomorrow pending PICC LIZET HAIR MD PGY-2 Internal Medicine Resident Green Team 09/19/2025 4:13 PM Cosigned by Marisol Lovett MD at 09/19/2025 7:50 PM EDT Associated attestation - Marisol Lovett MD - 09/19/2025 7:50 PM EDT Hospital Medicine Attending Supervision Note [facility] // [facility] Laura Mallory was seen 09/19/25 on rounds with the resident physician. I personally interviewed and examined the patient. I reviewed the documentation by the resident and agree as documented unless otherwise stated below. Reason for today's visit: Sepsis due to Escherichia coli with acute organ dysfunction ([facility]-H[facility]) Supplemental History / ROS / Exam: Feeling OK today aside from constipation. Not eating and drinking as well as baseline yet RRR, CTAB, edema improving on exam Assessment & Plan Laura Mallory is a 65 y.o. female with a history of HFimpEF, CAD, COPD, GERD, OA, anxiety, and chronic pain who initially presented to [facility] with malaise and back/flank pain, found to be inseptic shock and transferred to [facility] for further care. Septic shock, EColi bacteremia, cystitis, possible hepatic abscess formation: BCx and UCx from OSH positive for EColi. Also concern for abscess formation in the liver based on MRCP imaging. Verified that EColi susceptible to Zosyn. ID planning 4 weeks of IV Zosyn followed by 2 weeks of Augmentin. PICC consult placed. ID also recommending outpatient urology follow-up, repeat abdominal imaging outpatient. Pancreatitis: Improved, holding fluids in the setting of anasarca HFimpEF: Only resumed on coreg. BP remains borderline, holding entresto, aldactone, and lasix. NAGMA: Intermittently low bicarb this admission. Likely 2/2 topamax LFT elevation: Improving. Unclear if relate to bile stone that has now passed or 2/2 shock state. Trend Constipation: Increase bowel regimen Medical Decision Making: Acute or chronic illness that may pose threat to life or function Discussed with physician/IRVING from another specialty or practice, other licensed professional (PT/OT/STEEL ERECTING PUSHER/RT), or a non-medical community professional: ID Labs reviewed (1 pt each): CBC, Renal Review of notes from a different specialty or different practice: GI The HPI, ROS, physical exam, test results, and assessment & plan were reviewed and copied forward (with edits) from a note written by myself or a same-practice partner on 09/18/25. I have updatedthe history, physical exam, data, assessment, and plan of the note so that it reflects my evaluation and management of the patient on 09/19/2025. Marisol Lovett MD PhD Attending Physician Division of [facility] Medicine Department of Internal Medicine 7:46 PM, 09/19/2025 * Cora Golden, PT - 09/19/2025 3:31 PM EDT Physical Therapy Physical Therapy Treatment Name: Laura Mallory : 1960 Attending Physician: Marisol Lovett MD Admission Diagnosis: Pancreatitis, unspecified pancreatitis type [K85.90] Date: 09/19/2025 Room: [facility] Reviewed Pertinent hospital course: Yes Hospital Course PT/OT: 65 y/o F presents from OSH 09/14 w/ worsening constipation, abdominal pain, and generalized weakness. Pt became hypotensive, concern for septic shock. Labs significant for WBC 45.7 w/ neutrophilic shift, Hgb 11, PLT 407, AG elevated, lactate 6.4, BUN 20, Cr 2.2. Abd US 09/15:no acute abnormalities. CXR 09/15: hypoexpanded lungs with bibasilar airspace opacities, no pneumothorax. MRI Cholangiopancreatography 09/16: multiple small scattered foci of T2 hyperintensity in theR liver - c/f areas of inflammation/early abscess formation, possible cholangitis. 09/17 txfr to floor off pressors, continue Zosyn and plan to finalize abx (chart reviewed 09/19). 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 Required spv for supineto sit, modA for sit to supine and maxA x2 to reposition in bed, and Lillian for STS to RW. Unable to stand longer than ~3 min or tolerate standing marching in preparation for ambulation today. Proposedto pt consideration for skilled PT at SNF prior to D/C, pt resistant and currently presents below baseline and below initial evaluation for functional mobility. She continues to benefit from skilled PT services during acute stay, and requires additional assessment to inform D/C recommendations if functional mobility continues to decline. Assessment: Impaired Bed Mobility;Impaired Transfers;Impaired Gait;Impaired Balance;Impaired Strength;Impaired Activity Tolerance;Deconditioning;Impaired Safety Awareness Prognosis: Fair Recommendation Recommendation: Home PT Equipment Recommended: Patient already has needed DME, Rolling walker AM-PAC 6 Clicks Basic Mobility Inpatient Short Form: PT 6 Clicks Score: 15 Mobility Recommendations for Staff Patient ability: Patient transfers to chair/ bedside commode, Bed in chair position during mealtimes (2-3 times per day) Assist needed: with 1 person assist Equipment/ Precautions needed: Requires assistive device, use gait belt Requires Assistive Device: Rolling walker Cognition Arousal/Alertness: Alert Orientation Level: Oriented X4 Behavior: Appropriate;Cooperative Following Commands: Follows multistep commands Safety Judgment: Decreased awareness of need for assistance Pain Pain Score: 3 Pain Location: Leg Pain Descriptors: Constant Pain Intervention(s): Repositioned;Warm blankets applied;Ambulation/increased activity Mobility Bed Mobility Supine to Sit: Supervision;head of bed elevated;increased time to complete task Sit to Supine: Maximum assistance;of 2 people;head of bed flat (mod x1 sit to supine to lift BLE, max x2 for repositioning in bed) Transfers Sit to Stand: Minimal assistance;up to assistive device;increased time to complete task Sit to Stand Assistive Device: Rolling walker Stand to Sit: Contact Guard assistance;with assistive device;increased time to complete task Stand to Sit Assistive Device: Rolling walker Unable to progress further due to: fatigue Balance Sitting - Static: Independent Standing - Static: Stand-by assistance;With Assistive Device Standing-Static Assistive Device: Rolling walker Standing - Dynamic: Minimal Assistance;With Assistive Device Standing-Dynamic Assistive Device: Rolling walker Total time in standinx 3 min bouts, first with static stance cued for posture. Second trial attempted standing marching, unable to complete and pt fatigued Balance Exercise Standing: Weight shifting in all planes Gait belt used: No Exercise Supine Exercises: ABduction/ADduction Reps/Comments: supine hip abd x4 total maxA to complete for pericare Seated Exercises: Hip flexion;Long arc quads Reps/Comments: x10 valeria, fatigued Position after Treatment and Safety Handoff Position after treatment and safety handoff Position after therapy session: Bed Details: PATTERN CHART WRITER notified;visitor present;Call light/ needs within reach Alarms: Bed Alarms Status: Activated and Interfaced with call system Goals Collaborated with: Patient Patient Stated Goal: to go home Goals to be met by: 09/23/25 Patient will transition from supine to sit: Independent Patient will transition from sit to supine: Independent Patient will transfer from sit to stand: Modified Independent, up to assistive device Patient will ambulate: Supervision, with assistive device, distance (in feet) Ambulation Assistance Device: Rolling walker Distance (in feet): 50 ft Patient will participate in bilateral lower extremeity HEP in preperation for further functional mobility: 10 repetitions Pt Will report pain with functional mobility at: 03/03 or less Long-term goal to be met by: 09/30/25 Long-Term Goal : Patient will ambulate 100+ ft mod I using RW Patient/Family Education Educated patient and patient's family on the role of physical therapy, goals, plan of care, discharge recommendations, and transfer training and fall prevention strategies, including use of call light; patient verbalized understanding. Plan Plan Treatment/Interventions: LE strengthening/ROM, Therapeutic Activity, Therapeutic Exercise, Patient/family training, Equipment eval/education, Gait training PT Frequency during hospitalization: minimum 3x/week The plan of care and recommendations assesses the patient's and/or caregiver's readiness, willingness, and ability to provide or support functional mobility and ADL tasks as needed upon discharge. Time Start Time: 1447 Stop Time: 1520 Time Calculation (min): 33 min Charges $Therapeutic Activity: 2 units Problem List Problem List[1] Past Medical History Past Medical History: Diagnosis Date Acute non-ST segment elevation myocardial infarction ([facility]) 02/26/2023 Anxiety Atherosclerosis of coronary artery without angina pectoris 02/26/2023 COPD (chronic obstructive pulmonary disease) ([facility]) Heart failure with improved ejection fraction (HFimpEF) ([facility]) Stress-induced cardiomyopathy 02/26/2023 Past Surgical History Past Surgical History: Procedure Laterality Date SECTION CHOLECYSTECTOMY HYSTERECTOMY [1] Patient Active Problem List Diagnosis Mastocytosis Septic shock, resolved Coronary artery disease involving [place] coronary artery of [place] sandia heart without angina pectoris Chronic anxiety Chronic diastolic (congestive) heart failure ([facility]) Gastroesophageal reflux disease without esophagitis Morbid obesity ([facility]) Pneumonia of both lower lobes due to infectious organism Elevated LFTs Simple chronic bronchitis ([facility]) APARNA (obstructive sleep apnea) Acute metabolic encephalopathy HFimpEF Opioid-induced constipation Chronic back+knee pain with R-sided sciatica Sepsis due to Escherichia coli with acute organ dysfunction ([facility]) Cystitis Migraine Acute pancreatitis Tremor Severe protein-calorie malnutrition ([facility]) COPD (chronic obstructive pulmonary disease) ([facility]) Normocytic anemia * Ryan Mclaughlin MD - 09/19/2025 9:37 AM EDT Images from the original note were not included. Department of Infectious Diseases Progress Note 09/19/2025 Referring Physician: Marisol Lovett MD Patient's Name: Laura Mallory CSN: [id number] Reason for Consult Ecoli bacteremia at OSH, concern for liver abscess on imagining Brief History 65 year old female with past medical history of COPD, CAD, stress induced cardiomyopathy, HF, recurrent UTIs, anxiety transferred from OSH with septic shock and iniguez susceptible E.coli bacteremia 2/ UTI and imaging concerning for multiple liver abscesses on 09/14. Patient was in ICU and required pressors and was being treated with Zosyn, Was seen by gastroenterology for abnormal liver enzymes andhigh lipase and underwent MRCP which was concerning for liver abscess. WBCs was 40 now down trending to 10 and the patient was discharged from the ICU 09/17 Subjective Vitally stable, afebrile, on room air Assessment & Recommendations Blood culture from [facility] collected 09/14/25: E.coli - Urine culture from [facility] collected 09/12/25: E.coli >100,000 CFU. Iniguez susceptible. Had leucocytosis WBCs was 40 now down trending to 10, ESR 106, CRP 172 . Was seen by gastroenterology for abnormal liver enzymes and high lipase and underwent MRCP 09/16 which showed multiple small scattered foci of T2 hyperintensity in segment 7 and 6 of the right liver.These are nonspecific, but concerning for areas of inflammation/early abscess formation.unlikely rafita percutaneously or endoscopically drained, largest 1.5cm. Cholangitis is a possible etiology. UC urine culture 09/14 with no growth to date UC blood culture 09/17 with no growth to date Abdominal US 09/15 showed Normal sonographic appearance of the liver and biliary tree MRCP showed multiple small scattered foci of T2 hyperintensity in segment 7 and 6 of the right liver. These are nonspecific, but concerning for areas of inflammation/early abscess formation. Cholangitis is a possible etiology. #E. Coli UTI /Bacteremia, liver abscess, called [facility] to fax blood and urine culture RECOMMENDATIONS: Continue the use of Zosyn to complete 4 weeks course EOT 10/14/2025, could transition to PO Augmentin after 4 weeks of IV therapy, total 6 weeks Urology consultation for history of recurrent UTI and thickening of the bladder on imaging Follow up labs weekly CBC.diff, ESR, CRP, CMP and fax labs to IDC at [phone] PICC line care weekly Will arrange IDC follow up. Will continue to follow. Discussed and staffed with Dr. Hair. Recommendations as listed above are not finalized until attested by attending physician. Ryan Mclaughlin Infectious Diseases Fellow, PGY-4 [place] [phone] [place] [phone] Anti-microbials Current outpatient medications (Only Antimicrobes) as of 09/14/2025 There are no current outpatient antimicrobe medications Hospital Meds (Antimicrobes Only) as of 09/14/2025 piperacillin-tazobactam (ZOSYN) 4.5 g in sodium chloride 0.9 % 100 mL [id number] Linked Group 1: Placed in Followed by Linked Group Microbiology Microbiology Results Date and Time Order Name Sensitivity Status Organisms Specimen ID Source 09/17/2025 4:37 PM Blood culture-Peripheral (Blood) Preliminary [id number] Peripheral 09/17/2025 4:37 PM Blood culture-Peripheral (Blood) Preliminary [id number] Peripheral 09/15/2025 4:55 AM MRSA/Staph aureus DNA- Diagnostic Testing for Pneumonia (Nares Swab) Final [id number] Nares 09/14/2025 9:13 PM Urine culture Preliminary [id number] Urine No results found for: AEROBOT , ANABOT , LABGRAM , ISO2 , ISO3 , ISO4 , ISO5 , ISO6 , PNAFISH Vital Signs Temp: [97.5 ??F (36.4 ??C)-98.6 ??F (37 ??C)] 97.5 ??F (36.4 ??C) Heart Rate: [69-139] 78 Resp: [16-18] 18 BP: (109-132)/(70-103) 115/72 Intake/Output Summary (Last 24 hours) at 09/19/2025 0939 Last data filed at 09/18/2025 1313 Gross per 24 hour Intake -- Output 1200 ml Net -1200 ml Physical Exam General: NAD. Heart: No audible murmur. Lung: no increased work of breathing. Abdomen: Soft, NT/ND. Extremities: No HUNG bilaterally. Skin: Warm and dry, no rash on exposed skin. Neuro: Alert and oriented x 3, no obvious focal deficit observed during general exam. Laboratory Data Recent Labs 09/17/25 0627 09/18/25 1524 09/19/25 0650 WBC 16.9* 9.1 10.0 HGB 8.4* 9.1* 8.4* HCT 25.9* 27.3* 25.5* PLT 282 266 238 Recent Labs 09/17/25 0627 09/18/25 0405 09/19/25 0650 NA 139 134 135 K 3.3* 4.2 4.3 CL 106 106 106 CO2 23 17* 18* BUN 10 6* 6* CREATININE 0.56* 0.50* 0.42* GLUCOSE 95 84 98 PHOS 1.6* 2.5 3.7 Lab Results Component Value Date ALKPHOS 405 (H) 09/18/2025 ALT 51 09/18/2025 AST 51 (H) 09/18/2025 BILITOT 0.8 09/18/2025 ALBUMIN 2.6 (L) 09/19/2025 BILIDIRECT 0.28 09/18/2025 PROT 5.8 (L) 09/18/2025 Lab Results Component Value Date ESR 106 (H) 09/18/2025 CRP 172.8 (H) 09/18/2025 Cosigned by Kp Hair MD at 09/19/2025 9:29 PM EDT Associated attestation - Kp Hair MD - 09/19/2025 9:29 PM EDT I saw and examined the patient. I discussed with the fellow and agree with Dr. Mclaughlin's findings andplan as documented in the note. 65 year old female with past medical history of COPD, CAD, stress induced cardiomyopathy, HF, recurrent UTIs, anxiety transferred from OSH with septic shock and iniguez susceptible E.coli bacteremia 2/2 UTI and imaging concerning for multiple liver abscesses on 09/14. Patient was in ICU and required pressors and was being treated with Zosyn, Was seen by gastroenterology for abnormal liver enzymes andhigh lipase and underwent MRCP which was concerning for liver abscess. WBCs was 40 now down trending to 10 and the patient was discharged from the ICU 09/17 #E. Coli UTI /Bacteremia, liver abscess, Blood culture from [facility] collected 09/14/25: E.coli - Urine culture from [facility] collected 09/12/25: E.coli >100,000 CFU. Iniguez susceptible. Team called [facility] and confirmed blood culture and urine culture both showed zosyn susceptibility Had leucocytosis WBCs was 40 now down trending to 10, ESR 106, CRP 172 . Was seen by gastroenterology for abnormal liver enzymes and high lipase and underwent MRCP 09/16 which showed multiple small scattered foci of T2 hyperintensity in segment 7 and 6 of the right liver.These are nonspecific, but concerning for areas of inflammation/early abscess formation.unlikely rafita percutaneously or endoscopically drained, largest 1.5cm. Cholangitis is a possible etiology. UC urine culture 09/14 with no growth to date UC blood culture 09/17 with no growth to date Abdominal US 09/15 showed Normal sonographic appearance of the liver and biliary tree MRCP showed multiple small scattered foci of T2 hyperintensity in segment 7 and 6 of the right liver. These are nonspecific, but concerning for areas of inflammation/early abscess formation. Cholangitis is a possible etiology. Continue tIV Zosyn to complete 4 weeks course EOT 10/14/2025, could transition to PO Augmentin after 4 weeks of IV therapy, 10/15- 10/27 for a total 6 weeks Urology consultation for history of recurrent UTI and thickening of the bladder on imaging GI follow up as outpatient Follow up labs weekly CBC.diff, ESR, CRP, CMP and fax labs to IDC at [phone] PICC line care weekly Will arrange IDC follow up Can discontinue PICC on 10/15 Can arrange HHN vs SNF ID will sign off KP HAIR MD, Team 1 ID consults attending * Guille Barrett, [employer] PHOTOGRAPHER - 09/19/2025 8:08 AM EDT Images from the original note were not included. GI FOLLOW UP NOTE ID: [id number] Laura Mallory 65 yo female admitted from OSH with shock thought to be secondary to sepsis, labs suspicious for acute pancreatitis Interim: Patient reports feeling better. She is having minimal pain currently but states her pain does tend to get worse at night. She had some nausea last night that has resolved, denies vomiting. Toleratingher current diet. She does report some heart burn. Reports having bowel function. Denies fevers, + chills. She has some shortness of breath and occasional cough. ROS: 10 pt ROS negative unless otherwise noted above Vitals: Temp: [97.5 ??F (36.4 ??C)-98.6 ??F (37 ??C)] 97.5 ??F (36.4 ??C) Heart Rate: [69-139] 78 Resp: [16-18] 18 BP: (109-132)/(70-103) 115/72 Intake/Output Summary (Last 24 hours) at 09/19/2025 0808 Last data filed at 09/18/2025 1313 Gross per 24 hour Intake -- Output 1200 ml Net -1200 ml Physical Exam Gen: Ill appearing. No acute distress. HEENT: NC/AT, EOMI, moist mucus membranes CV: RRR, no m/r/g, no LE edema Lungs: Clear to auscultation bilaterally. Abdomen: +BS, soft, nontender Extremities: warm, well perfused Neuro: A&Ox3, moving all extremities spontaneous Skin: no bruising/rashes/jaundice Psych: normal affect Recent labs and imaging reviewed Latest Reference Range & Units 09/17/25 06:27 09/18/25 04:05 09/19/25 06:50 Sodium 133 - 146 mmol/L 139 134 135 Potassium 3.5 - 5.3 mmol/L 3.3 (L) 4.2 4.3 Chloride 98 - 110 mmol/L 106 106 106 Carbon Dioxide (CO2) 21 - 33 mmol/L 23 17 (L) 18 (L) Anion Gap 3 - 16 mmol/L 10 11 11 BUN 7 - 25 mg/dL 10 6 (L) 6 (L) Creatinine 0.60 - 1.30 mg/dL 0.56 (L) 0.50 (L) 0.42 (L) Glucose 70 - 100 mg/dL 95 84 98 EGFR >90 >90 >90 Calcium 8.6 - 10.3 mg/dL 7.9 (L) 7.3 (L) 7.7 (L) Phosphorus 2.1 - 4.5 mg/dL 1.6 (L) 2.5 3.7 Magnesium 1.5 - 2.5 mg/dL 1.7 2.2 1.6 Albumin 3.5 - 5.7 g/dL 2.5 (L) 2.7 (L) 2.6 (L) Calculated Osmolality, Serum 278 - 305 mOsm/kg 287 275 (L) 278 (L): Data is abnormally low Latest Reference Range & Units 09/14/25 20:38 09/15/25 04:55 09/15/25 15:07 09/16/25 03:44 09/17/25 06:27 09/18/25 04:05 Alkaline Phosphatase 36 - 125 U/L 516 (H) 499 (H) 431 (H) 391 (H) 405 (H) AST (SGOT) 13 - 39 U/L 283 (H) 234 (H) 121 (H) 63 (H) 51 (H) ALT (SGPT) 7 - 52 U/L 147 (H) 133 (H) 84 (H) 63 (H) 51 Albumin 3.5 - 5.7 g/dL 3.1 (L) 2.9 (L) 2.5 (L) 2.5 (L) 2.7 (L) GGT 9 - 64 U/L 358 (H) Protein, Total 6.4 - 8.9 g/dL 6.1 (L) 5.9 (L) 5.3 (L) 5.4 (L) 5.8 (L) Bilirubin, Indirect 0.00 - 1.10 mg/dL 1.04 0.86 0.51 0.46 0.52 Bili, Total 0.0 - 1.5 mg/dL 4.7 (H) 3.3 (H) 1.2 0.8 0.8 Bilirubin, Direct 0.00 - 0.40 mg/dL 3.66 (H) 2.44 (H) 0.69 (H) 0.34 0.28 Lipase 4 - 82 U/L 462 (H) (H): Data is abnormally high (L): Data is abnormally low Latest Reference Range & Units 09/16/25 03:44 09/17/25 06:27 09/18/25 15:24 09/19/25 06:50 WBC 3.8 - 10.8 10E3/uL 24.7 (H) 16.9 (H) 9.1 10.0 RBC 3.80 - 5.10 10E6/uL 2.86 (L) 2.90 (L) 3.06 (L) 2.79 (L) Hemoglobin 11.7 - 15.5 g/dL 8.1 (L) 8.4 (L) 9.1 (L) 8.4 (L) Hematocrit 35.0 - 45.0 % 25.3 (L) 25.9 (L) 27.3 (L) 25.5 (L) MCV 80.0 - 100.0 fL 88.6 89.1 89.2 91.4 MCH 27.0 - 33.0 pg 28.4 28.8 29.8 30.0 MCHC 32.0 - 36.0 g/dL 32.1 32.4 33.4 32.8 RDW 11.0 - 15.0 % 18.7 (H) 18.5 (H) 18.4 (H) 19.1 (H) Platelet Count 140 - 400 10E3/uL 283 282 266 238 Platelet Estimate ADEQ MPV 7.5 - 11.5 fL 8.7 8.6 8.4 8.6 Large Platelets PRES Scan Result PERFORMED Neutrophils Relative 40.0 - 80.0 % 87.3 (H) 76.0 Lymphocytes Relative 15.0 - 45.0 % 5.9 (L) 8.0 (L) Atypical Lymphocytes Relative 0.0 - 9.0 % 1.0 Monocytes Relative 0.0 - 12.0 % 6.5 14.0 (H) Eosinophils Relative 0.0 - 8.0 % 0.2 1.0 Basophils Relative 0.0 - 1.0 % 0.1 0.0 nRBC 0 - 0 /100 WBC 0 Neutrophils Absolute 1,520 - 8,640 /uL 14,754 (H) 6,916 Absolute Lymphocytes 570 - 4,860 /uL 997 819 Monocytes Absolute 0 - 1,296 /uL 1,099 1,274 Eosinophils Absolute 0 - 864 /uL 34 91 Basophils Absolute 0 - 108 /uL 17 0 (H): Data is abnormally high (L): Data is abnormally low CT A/P 09/12/2025: 09/15/2025 Abdominal US: FINDINGS: Liver: Normal morphology and surface contour. [...] the upper abdomen. Other: No free fluid. Impression IMPRESSION: Normal sonographic appearance of the liver and biliary tree. MRCP 09/16/2025: FINDINGS: Liver: Normal morphology and surface contour. There are multiple small heterogeneous foci of T2 hyperintensity in the posterior right liver, primarily involving segments 7 and 6. The largest measuresup to 1.5 cm. Biliary Tree/Gallbladder: Absent gallbladder. [...] suspicious focal lesions. Lower Chest: Dependent atelectasis. Impression IMPRESSION: 1. Normal caliber bile ducts, post cholecystectomy, without filling defects. 2. Multiple small scattered foci of T2 hyperintensity in segment 7 and 6 of the right liver. These are nonspecific, but concerning for areas of inflammation/early abscess formation. Cholangitis is a possible etiology. Assessment/Plan: Laura Mallory is a 65 y.o. with a history of acute [place] 2022, anxiety, non- obstructive CAD, COPD, heartfailure, stress induced cardiomyopathy, hysterectomy, cholecystectomy, GERD, OA, chronic back pain who was transferred from OSH with concern for septic shock. #Acute pancreatitis #Elevated LFTs #Concern for biliary obstruction #Sepsis - Presents from OSH with concern for shock likely secondary to sepsis, on pressors with concern forpossible cholangitis vs urinary source - Imaging from OSH from 09/12/25 with bladder wall thickening. Evidence of cholecystectomy. Pancreas unremarkable - On presentation to OSH- lipase was > 3000 with elevated LFTs in a cholestatic pattern, on presentation lipase 462, LFTs and T bili are trending down and there has been significant improvement inleukocytosis - reflective of possible passed stone/resolved obstructive process - Triglycerides 69 - Denies alcohol or tobacco use - BISAP score 3 - Per chart review patient had E coli positive urine and blood cultures from OSH - Repeat urine cultures pending - RUQ US with normal sonographic appearance of the liver and biliary tree - MRCP with normal caliber bile ducts, post cholecystectomy without filling defects. Multiple smallscattered foci in the right liver which are nonspecific and concerning for areas of inflammation/early abscess formation. Cholangitis possible etiology - With down trending LFTs and bilirubin and improvement in leukocytosis no plans for urgent endoscopic evaluation - Monitor hepatic panel - Continue antibiotics per ID recommendations - Continue diet as tolerated, recommend low fat consistency - Will refer for outpatient GI follow up, consider outpatient endoscopic evaluation - Continue supportive care per primary Thank you for the following consultation, we will sign off at this time. Please call with any questions. Patient discussed with advanced GI attending, Dr. Mariana Barrett CNP Pancreas/Biliary team * Joe Gandara - 09/18/2025 7:15 AM EDT [facility] Internal Medicine - Progress Note Team: Noel Chief Concern / Reason for Follow-Up Sepsis due to Escherichia coli with acute organ dysfunction (CMS-HCC) Interval History No acute events overnight Patient denies any abd pain/ chest pain, n/v. was called and updated, questions were answered. Physical Exam Temp: [97 ??F (36.1 ??C)-98.9 ??F (37.2 ??C)] 97.8 ??F (36.6 ??C) Heart Rate: [76-85] 83 Resp: [13-20] 18 BP: (91-136)/(40-75) 99/73 Physical Exam Constitutional: General: She is not in acute distress. Appearance: Normal appearance. She is ill-appearing. She is not toxic-appearing. Eyes: Extraocular Movements: Extraocular movements intact. Pupils: Pupils are equal, round, and reactive to light. Abdominal: General: Bowel sounds are normal. There is no distension. Tenderness: There is abdominal tenderness (With deep palpation in the epigastric area.). There is no guarding. Musculoskeletal: Right lower leg: Edema (Mild pitting edema) present. Left lower leg: Edema present. Neurological: Mental Status: She is oriented to person, place, and time. Psychiatric: Mood and Affect: Mood normal. Assessment & Plan Laura Mallory is a 65 y.o. 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 [facility] Assessment & Plan Sepsis due to Escherichia coli with acute organ dysfunction ([facility]) Cystitis Septic shock, resolved OSH workup showed elevated lactate with associated hypotension, iso leukocytosis upto 45 with neutrophilic shift, overall concerning for septic shock. Confirmed E coli positive urine and blood cultures from OSH. Also considering cholangitis vs pancreatitis. Not concerned for cardiogenic shock givenpreserved EF on formal TTE. Not concerned for [...] data from the outside hospital, -MICU called [facility] but was not able to get info. We will call the hospital tomorrow. -Repeat blood culture yesterday- NGTD Acute pancreatitis Elevated LFTs Patient presented with acute abdominal pain and back pain, somewhat radiating, lipase ~3998 at OSH.Got fluid resuscitation per sepsis fluids. Although CT A/P non-con at OSH was reported normal, still meets criteria for acute pancreatitis. 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 With elevated bilirubin, leukocytosis and RUQ pain some c/f cholangitis as well. Normal triglycerides. Cholestatic pattern of injury. Lipase downtrended now 462. LFTs downtrending. - GI following appreciate recs, MRCP w/o ductal dilation, no endoscopic plans, possible had passed stone +/- c/f hepatic abscess as below. Infarcts in the liver could be from shock. - s/p maintenance IVF HFimpEF Home GDMT: Entresto 24-26 BID. Spironolactone (unsure if she has been taking it) 2/2 Takotsubo cardiomyopathy. Not in acute exacerbation. TTE 09/15/25 w/improved EF 60-65%. Patientwas mildly hypotensive last night (lowest 92/55) . Will hold home GDMT for now, - Continue Coreg 3.125 BID - Get Orthostatic vitals - Hold home lasix Severe protein-calorie malnutrition (CMS-HCC) Meets criteria per RD assessment. Difficulty with poor appetite, nausea/vomiting, swallowing difficulty with meats. Food insecurity noted. - Tolerating diet - Continue regular diet, encourage PO intake Coronary artery disease involving [place] coronary artery of [place] heart without angina pectoris No acute concerns. On atorvastatin 40mg at home. - Continue ASA Normocytic anemia Baseline Hg around 9-10. All cell lines decreased during hospitalization with fluids. -continue to monitor Chronic anxiety -continue home duloxetine and atarax Gastroesophageal reflux disease without esophagitis Home regimen: omeprazole -Continue TI pantoprazole 40 COPD (chronic obstructive pulmonary disease) (CMS-HCC) On RA at baseline, vitally stable since admission. Not concerned for COPD exacerbation. Desatted to86, required 2L NC overnight. - home LAMA, LABA, ICS APARNA (obstructive sleep apnea) Suspected, noted in chart, not on CPAP/BiPAP. -outpatient sleep study Chronic back+knee pain with R-sided sciatica -holding home celecoxib in hospitall, could resume when BP more stable -continue home duloxetine and gabapentin -Tylenol PRN Migraine -continue home topamax Tremor Baseline, chronic. -continue home Topamax DVT Prophylaxis: enoxaparin (prophylaxis) Code Status: Full Code Medical Readiness for Discharge: 2-4 Days JOE GANDARA, MS4 09/18/2025 7:15 AM Cosigned by Marisol Lovett MD at 09/18/2025 4:07 PM EDT Associated attestation - Marisol Lovett MD - 09/18/2025 4:07 PM EDT Hospital Medicine Attending Supervision Note [facility] Laura Mallory was seen 09/18/25 on rounds with the medical student. I have personally performed the physical exam and medical decision making. I reviewed the documentation by the medical student and agree as documented, with the following additions or clarifications: Reason for today's visit: Sepsis due to Escherichia coli with acute organ dysfunction (CMS-HCC) Supplemental History / ROS / Exam: Feeling OK today, appetite still poor Non-toxic on exam 2+ anasarca stable from prior RRR no MRG, abdomen soft, lungs clear Assessment & Plan Laura Mallory is a 65 y.o. female with a history of HFimpEF, CAD, COPD, GERD, OA, anxiety, and chronic pain who initially presented to [facility] with malaise and back/flank pain, found to be inseptic shock and transferred to [facility] for further care. Septic shock, EColi bacteremia, cystitis, possible hepatic abscess formation: BCx and UCx from OSH positive for EColi. Also concern for abscess formation in the liver based on MRCP imaging here. ID consulted. Continue Zosyn for now. Call [facility] in AM for culture / ABX susceptibilities. Final ABX plan as per ID. Pancreatitis: Improved, holding fluids in the setting of anasarca HFimpEF: Only resumed on coreg. Orthostats without significant change in BP but with significant HRelevation with standing. Hold off on entresto, aldactone, and lasix today NAGMA: Intermittently low bicarb this admission. No diarrhea. Possibly 2/2 topamax. Continue to monitor LFT elevation: Improving. Unclear if relate to bile stone that has now passed or 2/2 shock state. Trend Medical Decision Making: Acute or chronic illness that may pose threat to life or function Labs reviewed (1 pt each): CBC, Renal, CRP The HPI, ROS, physical exam, test results, and assessment & plan were reviewed and copied forward (with edits) from a note written by myself or a same-practice partner on 09/17/25. I have updatedthe history, physical exam, data, assessment, and plan of the note so that it reflects my evaluation and management of the patient on 09/18/2025. Marisol Lovett MD PhD Attending Physician Department of Internal Medicine 4:00 PM, 09/18/2025 * Marisol Lovett MD - 09/17/2025 3:49 PM EDT Hospital Medicine Attending Supervision Note [facility] Laura Mallory was seen 09/17/25 on rounds with the resident physician. I personally interviewed and examined the patient. I reviewed the documentation by the resident and agree as documented unless otherwise stated below. Full resident H&P to follow. Reason for today's visit: Sepsis due to Escherichia coli with acute organ dysfunction ([facility]) Supplemental History / ROS / Exam: Patient initially presented to [facility] on 09/14, transferred to [facility]U due to severe hypotension with pressor requirement. WBC >45K, lactate 6, creatinine, LFTs, and lipase all elevated on admission. Work-up notable for EColi growth from both blood and urine (at [facility], cultures here all negative). Of note, shortly prior to admission patient found to have cystitis (CT with bladder wall thickening) and prescribed outpatient Macrobid, returned to hospital when symptoms did not improve. Patient with prior similar admission 2/2 suspected cholangitis so MRCP obtained. Notable for normalcaliber bile ducts without evidence of cholangitis but with multiple small hyperintense foci - unable to rule out inflammation vs abscess formation. At time of transfer from MICU, patient on Zosyn. Off of pressors but not yet resumed on any GDMT. Has been eating well and not currently with any residual localizing symptoms aside from weakness/fatigue Exam with diffuse 2+ anasarca Lungs clear, SpO2 >95% flat on back on RA RRR no MRG Abdomen soft and non-tender Assessment & Plan Laura Mallory is a 65 y.o. female with a history of HFimpEF, CAD, COPD, GERD, OA, anxiety, and chronic pain who initially presented to [facility] with malaise and back/flank pain, found to be inseptic shock and transferred to [facility] for further care. Septic shock, EColi bacteremia, cystitis, possible hepatic abscess formation: CT from OSH with reported bladder wall thickening (images pushed for our radiology to read), BCx and UCx from OSH growingEColi. Unclear if liver findings are related to infection (could be ischemic injuries from hypoperfusion) but unable to rule out sequelae of cholangitis. Continue Zosyn. Will need to call [facility] tomorrow to follow-up on EColi susceptibilities. ID consult to assist with duration of ABX. Liver lesions likely too small for definitive IR biopsy. Pancreatitis: Met criteria based on symptoms and lipase elevation. Has been intermittently receiving IVF. Hold off on further IVF for now - anasarca developing. No current pain reported and has been tolerating PO. HFimpEF: Held GDMT in the setting of shock. BP remains too borderline for entresto. Can resume minimal dose coreg 3.125mg this PM if SBP remains >105, HR >60. LFT elevation: Improving. Unclear if relate to bile stone that has now passed or 2/2 shock state. Trend Medical Decision Making: Acute or chronic illness that may pose threat to life or function Independent interpretation of image(s)/tracing(s): ECG Labs reviewed (1 pt each): CBC, Renal, LFTs Review of notes from a different specialty or different practice: ICU The HPI, ROS, physical exam, test results, and assessment & plan were reviewed and copied forward (with edits) from a note written by myself or a same-practice partner on 09/16/25. I have updatedthe history, physical exam, data, assessment, and plan of the note so that it reflects my evaluation and management of the patient on 09/17/2025. Marisol Lovett MD PhD Attending Physician Division of [facility] Medicine Department of Internal Medicine 4:49 PM, 09/17/2025 * Monty Mahan MD - 09/17/2025 10:38 AM EDT MICU PROGRESS NOTE I independently saw and examined this patient on 09/17/2025. The x-rays and labs were reviewed. Thecase was discussed in detail during multidisciplinary rounds, the events of the past 24 hours reviewed, and a plan for medical care arranged. ALISHA Mallory is a 65 y.o. with PMHx significant for HFimpEF (EF 55-60%) 2/2 Takotsubo cardiomyopathy, non-obstructive CAD, COPD (baseline RA), GERD, OA, anxiety, chronic back pain [facility]. Past 24 hrs Events: UOP 1.6L Off pressors Weaned off to room air Micro negative here Alk phos coming down Same with AST/ALT Drips: Intake/Output Summary (Last 24 hours) at 09/17/2025 1038 Last data filed at 09/17/2025 1000 Gross per 24 hour Intake 1977.16 ml Output 1645 ml Net 332.16 ml Lines: Patient Lines/Drains/Airways Status Active LDAs Name Placement date Placement time Site Days CVC Triple Lumen 09/15/25 Right Internal jugular 09/15/25 1350 Internal jugular 1 Renal Recent Labs 09/15/255 09/16/25 0344 09/17/25 0627 NA 134 135 139 K 3.5 3.5 3.3* CL 103 106 106 CO2 19* 20* 23 BUN 24 18 10 CREATININE 1.30 0.75 0.56* CALCIUM 7.7* 6.9* 7.9* MG 4.0* 2.6* 1.7 PHOS 3.7 2.8 1.6* CBC Recent Labs 09/15/2545409/16/25 0344 09/17/25 0627 HGB 9.9* 8.1* 8.4* HCT 30.3* 25.3* 25.9* PLT 343 283 282 WBC 40.7* 24.7* 16.9* Liver Recent Labs 09/15/25 0455 09/16/25 0344 09/17/25 0627 AST 234* 121* 63* ALT 133* 84* 63* ALKPHOS 499* 431* 391* ALBUMIN 2.9* 2.9* 2.5* 2.5* 2.5* 2.5* BILITOT 3.3* 1.2 0.8 BILIDIRECT 2.44* 0.69* 0.34 INR 1.1 1.1 0.9 Allergies Allergies[1] BP 108/74 Pulse 82 Temp 98.9 ??F (37.2 ??C) (Axillary) Resp 16 Ht 5' 5 (1.651 m) Wt (!) 232 lb 5.8 oz (105.4 kg) SpO2 99% BMI 38.67 kg/m?? Objective Temp: [97.6 ??F (36.4 ??C)-99.6 ??F (37.6 ??C)] 98.9 ??F (37.2 ??C) Heart Rate: [69-91] 82 Resp: [12-24] 16 BP: (89-147)/(53-94) 108/74 HEENT - PERRL, conjugate gaze. No evidence of cranial or facial trauma Neck - No palpable adenopathy CV - RRR without murmur or rub Chest/Lungs - Bilateral symmetrical respiratory excursions noted. No insp crackles or exp wheeze and no prolongation of the exp phase Abd - soft without tenderness or guarding - ni cath in place draining clear yellow urine Ext - no deformity or edema. Neuro - Mood and affect appropriate. CN's 2-12 grossly intact. No gross motor or sensory deficit. ASSESSMENT AND PLAN #Shock, resolved. concerns for ascending cholangitis but without biliary ductal dilation on CT AP from OSH. UTI also in the differential #Concerns for hepatic abscess, noted on imaging but uncertain - not big enough to sample #Transaminitis with cholestasis, concerns for ascending cholangitis but cannot rule out other formsof obstruction such as malignancy. No pancreatic masses on CT #Pancreatitis, unclear trigger but concerning for gallstone induced #FER, likely prerenal from shock and low intravascular volume Plan --Dispo Floor --1 L IVF 100/hr over 10 hrs for pancreatitis --Continue with pip/tazo and deescalate based on antibiogram from OSH Need to figure if we need [facility] antibiotics. ID consult to figure length and if she needs parenteral vs oral --Hold antihypertensive medications still --DC central line and ni Family: To be updated by house staff Code status: Full Code Drips: DVT PPx: Current Anticoagulation (Only) aspirin EC tablet 81 mg heparin (porcine) injection 5,000 Units Diet: Orders Placed This Encounter Procedures Diet high calorie 3000 kcal a day GI PPx: [x]PPI []H2 filomena []Sucralfate []Not indicated Bowel reg: Osmotic: [x]Miralax []Lactulose []Mag sulfate/citrate Stimulant: []Senna []Dulcolax Softener: []Docusate Lines: Patient Lines/Drains/Airways Status Active LDAs Name Placement date Placement time Site Days CVC Triple Lumen 09/15/25 Right Internal jugular 09/15/25 1350 Internal jugular 1 Tubes: IUC (Ni) Double-lumen (Active) $ New ni Inserted? Yes 09/14/252029 Status Trail Drainage 09/15/25 0800 Collection Container Standard drainage bag 09/15/25 0800 Securement Method StatLock 09/15/25 0800 Indication for IUC continuation Require accurate, continuous UOP measuring in critically ill 09/15/25 0800 Output (mL) 50 mL 09/15/25 1000 PT recs: Recommendation: Home PT Equipment Recommended: Patient already has needed DME, Rolling walker OT recs: Recommendation: Home OT Equipment Recommendations: Patient already has needed DME STEEL ERECTING PUSHER recs: I spent a total of 35 minutes of critical care time caring for this patient with septic shock, including direct patient contact, management of life support systems review of data (i.e.: imaging and lab), discussion with team members and consultants, and this time excludes time spent on procedures. Critical care was necessary to treat and prevent life-threatening deterioration from these conditions and requires high complexity decision making for assessment and support including: Hemodynamic and volume assessment with volume resuscitation Frequent vasoactive agent adjustments Assessment and treatment of complex metabolic derangement Frequent evaluation of patient's response to treatment and titration of therapy Application of advanced monitoring technologies Extensive interpretation of multiple databases and records Development of treatment plan with patient or surrogate Monty Mahan MD, PhD Pulmonary and Critical Care 10:38 AM, 09/17/2025 [1] Allergies Allergen Reactions Aleve [Naproxen Sodium] Cristina [Fexofenadine] * Pritesh Mosquera, DO - 09/17/2025 7:33 AM EDT Department of Internal Medicine MICU Progress Note Laura Mallory Attending physician: Monty Mahan MD Code status: Full Code Brief Hospital Course Laura Mallory is a 65 y.o. 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 Admitted to the MICU on 09/15. Found to be hypotensive. With concerns for septic shock started on Vanc, Cefepime, Flagyl. Started Levophed requiring upto 14U, given 1L LR, 1L NS for IVF resuscitation. Lab workup at OSH significantfor WBC 45.7 with neutrophilic shift, Hgb 11, PLT 407, AG elevated to 21.8, lactate 6.4, BUN 20, Cr2.2 (recently 0.9 on prior workup), otherwise electrolytes wnl. AST 403, ALT 228, ALP 796, Troponins flat. Lipase elevated to 3998, TSH wnl. L IJ central line placed. On arrival to [facility] was continued on norepinephrine, vancomycin, and zosyn. Received 2 L IVF. Subjective Interval history / significant events over the past 24 hours: Yesterday: Off levo, hydrocort stopped. GI reviewed MRCP - no indication for endoscopic evaluation.Weaned off NC to RA. Mental status worsened, oriented X2, which improved after having multiple bowel movements. - Overnight: AMA Drips: - None Vitals Afebrile, HR 75-85, BP 80-110 (MAP 67-98) Resp SpO2 86-100% on RA Labs CBC: WBC 16.9 (25k), Hb 8.4, Plt 282 RFP: Na 139, K 3.3, Cl 106, CO2 23, Cr 0.56 LFTs: Alk phos 391 (431), AST 63 (121), ALT 63 (84), Tb 0.8 Micro E. Coli bacteremia on OSH blood cx E. Coli on OSH urine cx (iniguez-susceptible) Imaging - MRCP small hepatic foci of R liver c/f early abscess formation vs cholangitis, absent GB, no intra/extrahepatic ductal dilation or filling defects, CBD 8mm, atrophic pancrease with edema or dilation - RUQ US normal I/O I 3.3L / O 1.78L, (net +1..5L) Brief summary of today's plan: - continue trending LFTs - repeat urine cx pending - follow-up OSH blood cx susceptibilities - Cont zosyn, likely to need prolonged course of abx for c/f hepatic abscess - ID consult for finalized abx recs - GI consulted, no indication for endoscopic eval currently, cont fluid resuscitation and abx - Cont mIVF, mylanta added - Tolerating diet - DC ni, DC central line - Transfer to floor Assessment & Plan Laura Mallory is a 65 y.o. female on hospital day 3. The principal reason for today's follow-up visitis E. Coli bacteremia & urosepsis. Neurology / Pain / Sedation Baseline mental / functional status: AOx3 Pain / sedation: no sedation, Tylenol and oxy 10 PRN Restraints: None #Chronic back pain #Migraines Having back pain which is chronic and R shoulder pain which is new. Shoulder is not tender to palpation, no effusion apparent, no apparent deformities. potentially referred pain from abdomen? CT chest report from OSH does not note any effusion or fractures of R shoulder. - oxycodone 5-10 mg PRN - holding home celecoxib- wait until bp at baseline - Cont home Duloxetine, gabapentin - Tylenol PRN Cardiovascular Baseline EKG: prolonged QT, L anterior hemiblock #Shock, undifferentiated, likely septic #Ecoli bacteremia & urosepsis OSH workup showed elevated lactate with associated hypotension, iso leukocytosis upto 45 with neutrophilic shift, overall concerning for septic shock. Confirmed E coli positive urine and blood cultures from OSH. Also considering cholangitis vs pancreatitis. Not concerned for cardiogenic shock givenpreserved EF on formal TTE. Not concerned for hemorrhagic shock due to no apparent bleeding. S/p 2 L IVF here, plus additional at OSH, meeting 30cc/kg. Lactate downtrended with initiation of pressors. MRCP with c/f hepatic abscess, unlikely to be percutaneously or endoscopically drained, largest 1.5cm. - MAP goal >65 - d/c hydrocortisone, did not need vaso, now off levo - Abx: cont zosyn - follow blood cultures (susceptibilities still pending at OSH), urine cultures (09/12 E coli iniguez-susceptible, 09/14 NGTD 48hrs) - mIVF #HFrecEF 2/2 Takotsubo cardiomyopathy Not in acute exacerbation. TTE 09/15/25 w/improved EF 60%. - Hold GDMT: Entresto 24-26 BID. Coreg 3.125 BID. Spironolactone (unsure if she has been taking it) - Hold home lasix #Non obstructive CAD No acute concerns. - Continue ASA + statin Pulmonary #COPD On RA at baseline, vitally stable since admission. Not concerned for COPD exacerbation. Desatted to86, required 2L NC overnight. - home LAMA, LABA, ICS Renal & Acid / Base Most recent serum creatinine: Lab Results Component Value Date CREATININE 0.56 (L) 09/17/2025 FEN / GI Nutrition: currently NPO GI prophylaxis: protonix Bowel regimen: Miralax, senna #Severe protein calorie malnutrition Meets criteria per RD assessment. Difficulty with poor appetite, nausea/vomiting, swallowing difficulty with meats. - tolerating diet #Pancreatitis #Transaminitis Patient p/w acute abdominal pain and back pain, somewhat radiating, lipase ~[address] A/P non-con at OSH was reported normal, still meets criteria for acute pancreatitis. 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 With elevated bilirubin, leukocytosis and RUQ pain some c/f cholangitis as well. Normal triglycerides. Cholestatic pattern of injury. Lipase downtrended now 462. - LFTs downtrending - GI following appreciate recs, MRCP w/o ductal dilation, no endoscopic plans, possible had passed stone +/- c/f hepatic abscess as below - maintenance IVF: additional 1L normosol over 12 hrs #C/f Hepatic abscesses #C/f Cholangitis 09/16/25 MRCP: Multiple small hepatic foci of R liver c/f early abscess formation vs cholangitis, absent GB, no intra/extrahepatic ductal dilation or filling defects, CBD 8mm, atrophic pancrease withedema or dilation. - cont zosyn for now - cont abx as below, terminal operator regimen per ID recs Infection Antimicrobials: - Vancomycin (09/14 - 09/16) - Zosyn (09/14 - present) - Cefepime at OSH (09/14) - Flagyl at OSH (09/14) Workup: - Blood culture from [facility] collected 09/14/25: E.coli (preliminary as of 09/16) - Urine culture from [facility] collected 09/12/25: E.coli >100,000 CFU. Iniguez susceptible. - Blood culture [facility] 09/14: pending - Urine culture [facility] 09/14: pending Endocrine No acute issues. Goal BG <180 Hematology / Oncology #Acute on chronic anemia Hb 8.1 from 9.9 - CTM Rheumatology / Musculoskeletal No acute issues. Psychiatry #Anxiety - Cont home Atarax 25 BID PRN - Pain control as above Critical Care Checklist DVT ppx / anticoagulation: SQ UFH GI ulcer ppx: PPI Nutrition: PO Invasive lines: DC Central line Ni cath: Remove Bowel integrity: PEG/Laxatives ordered Rectal tube: None Code status: Full Code Next of kin / POA update: To be updated by house staff Inpatient Medications Scheduled: aspirin 81 mg Oral Daily 0900 [Held by provider] atorvastatin 40 mg Oral Daily 0900 [Held by provider] carvediloL 3.125 mg Oral BID DULoxetine 60 mg Oral Daily 0900 [Held by provider] furosemide 40 mg Oral BID gabapentin 100 mg Oral TID heparin 5,000 Units Subcutaneous 3 times per day magnesium sulfate in sterile water 50 mL 2 g Intravenous Once umeclidinium-vilanteroL 1 puff Inhalation RT Daily And mometasone 220 mcg/puff 1 puff Inhalation RT Daily mupirocin 1 g Topical BID pantoprazole 40 mg Oral DAILY 0600 piperacillin-tazobactam (ZOSYN) IV extended interval 4.5 g Intravenous Q8H polyethylene glycol 17 g Oral BID [Held by provider] sacubitriL-valsartan 1 tablet Oral BID senna 1 tablet Oral Nightly (2099) sod phos di, mono-K phos mono 500 mg Oral Q2HRS [Held by provider] spironolactone 25 mg Oral BID topiramate 100 mg Oral Daily 0900 topiramate 150 mg Oral Nightly (2099) Continuous: None PRN:acetaminophen, aluminum & magnesium hydroxide-simethicone, bisacodyL, hydrOXYzine HCL, ICU electrolyte replacement protocol AND Initiate electrolyte replacement protocol, oxyCODONE ORoxyCODONE Objective Vital signs: Temp: [97.6 ??F (36.4 ??C)-99.6 ??F (37.6 ??C)] 98.9 ??F (37.2 ??C) Heart Rate: [69-91] 85 Resp: [12-24] 17 BP: (89-147)/(53-94) 108/74 BP 108/74 Pulse 85 Temp 98.9 ??F (37.2 ??C) (Axillary) Resp 17 Ht 5' 5 (1.651 m) Wt (!)232 lb 5.8 oz (105.4 kg) SpO2 97% BMI 38.67 kg/m?? Intake / output: Intake/Output Summary (Last 24 hours) at 09/17/2025 1322 Last data filed at 09/17/2025 1000 Gross per 24 hour Intake 1705.37 ml Output 1535 ml Net 170.37 ml I/O last 3 completed shifts: In: 4001.5 [P.O.:900; I.V.:1832.2; IV Piggyback:1269.3] Out: 2735 [Urine:2735] Wt Readings from Last 3 Encounters: 09/14/25 (!) 232 lb 5.8 oz (105.4 kg) 05/27/25 (!) 270 lb 4.5 oz (122.6 kg) 10/14/17 (!) 311 lb (141.1 kg) Labs & other diagnostic studies: Reviewed in [facility], with pertinent positive and negative findings as outlined above. Physical exam: Constitutional: No acute distress, appears stated age, well-nourished. HENT: Normocephalic, atraumatic, moist mucous membranes. Eyes: EOM grossly intact, normal conjunctiva, anicteric sclerae. Cardiovascular: RRR, no murmurs appreciated, extremities warm and well-perfused. Respiratory: No increased work of breathing on room air, bilateral expiratory wheezing. Abdomen: Soft, mild TTP, no rebound or guarding MSK: No peripheral edema, moves all extremities. Skin: Visible skin is warm, dry, intact. No visible rashes or lesions. Neurological: Alert, oriented x 3-4, no gross motor or sensory deficits. Psych: Mood appropriate for situation, no abnormal behaviors. CAM: Overall CAM-ICU : Delirium Present RASS: Robles Agitation Sedation Scale: 0 Patient was seen and discussed with fellow and attending physician, Monty Mireles MD. Pritesh Mosquera DO Internal Medicine, PGY-2 09/17/2025 1:22 PM Cosigned by Monty Mahan MD at 09/17/2025 4:30 PM EDT Associated attestation - Monty Mahan MD - 09/17/2025 4:30 PM EDT I have reviewed the documentation and agree with the plan. Please see my note for additions/addendums. Monty Mahan MD, PhD Pulmonary and Critical Care Medicine 09/17/2025 4:30 PM * Anthony Hayes, PT - 09/16/2025 3:05 PM EDT Physical Therapy Initial Assessment Name: Laura Mallory : 1960 Attending Physician: Monty Mahan MD Admission Diagnosis: Septic shock Ascending cholangitis Date: 09/16/2025 Room: MI11/UMICU-11 Reviewed Pertinent hospital course: Yes Hospital Course PT/OT: 65 y/o F presents from OSH 09/14 w/ worsening constipation, abdominal pain, and generalized weakness. Pt became hypotensive, concern for septic shock. Labs significant for WBC 45.7 w/ neutrophilic shift, Hgb 11, PLT 407, AG elevated, lactate 6.4, BUN 20, Cr 2.2. Abd US 09/15:no acute abnormalities. CXR 09/15: hypoexpanded lungs with bibasilar airspace opacities, no pneumothorax. 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 Takotsubo cardiomyopathy, non-obstructive CAD, COPD (baseline RA), GERD, OA, anxiety, chronic back pain Precautions: MAP > 65 Activity Level: Activity as tolerated Assist: Co-evaluation performed Assessment Assessment: Impaired Bed Mobility, Impaired Transfers, Impaired Gait, Impaired Balance, Impaired Stair Negotiation, Deconditioning, Impaired Activity Tolerance, Impaired Strength Prognosis: Fair Recommendation Recommendation: Home PT Equipment Recommended: Patient already has needed DME, Rolling walker AM-PAC 6 Clicks Basic Mobility Inpatient Short Form: PT 6 Clicks Score: 17 Mobility Recommendations for Staff Patient ability: Patient ambulates in room/ to bathroom Assist needed: with 1 person assist Equipment/ Precautions needed: Requires assistive device, use gait belt Requires Assistive Device: Rolling walker Home Living/Prior Function Patient able to provide accurate information at this time: Yes Lives With: Spouse Assistance available: 24 hour supervision Type of Home: Mobile home Home Entry: More than 1 step to enter;with railing Stairs to enter: 5 Home Layout: One level Bathroom Shower/Tub: Walk-in shower Bathroom Toilet: Standard Bathroom Equipment: Shower chair Home Equipment: Wheelchair-manual;Rolling Walker;Single-point cane Prior Function Functional Mobility: Modified Independent;with assistive device Uses Assistive Device: Rolling walker Receives Help From: Family ADL Assistance: Needs assistance Needs assistance with: Bathing IADL Assistance: Needs assistance (daughter in law and assists w/ cooking/cleaning) Needs assistance with: Meal preparation;Laundry;Cleaning;Driving Therapy services currently receiving: Home therapy Pain Pain Score: 5 Pain Location: Leg Therapist reported pain to: RN Vision Hearing/Vision/Perception Hearing: No hearing deficits noted Baseline Vision: Wears glasses all the time Overall Vision/ Perception: Within Functional Limits Cognition Overall Cognitive Status: Within Functional Limits Cognitive Assessment: Arousal/ Alertness;Orientation Level;Behavior;Following Commands;Safety Judgment;Insight Arousal/Alertness: Alert Orientation Level: Oriented X4 Behavior: Appropriate;Cooperative Following Commands: Follows all commands and directions without difficulty Safety Judgment: Good awareness of safety precautions Insight: Demonstrated intact insight into limitation and abilities to complete ADL's safely Neuromuscular Overall Sensation: Patient denies any numbness/ tingling in BUE's/ BLEs Upper Extremity UE Assessment: Defer to OT evaluation for formal assessment Lower Extremity Lower Extremity LE Assessment: Strength WFL (at least 3+/5) as observed during functional activity;ROM grossly WFL;Tone normal Functional Mobility Bed Mobility Supine to Sit: Minimal assistance;head of bed elevated;towards the left;increased time to complete task Transfers Sit to Stand: Minimal assistance;up to assistive device Sit to Stand Assistive Device: Rolling walker Stand to Sit: Minimal assistance;with assistive device Stand to Sit Assistive Device: Rolling walker Gait Distance (in feet): 12 ft Level of assistance: Contact Guard assistance;increased time to complete task Assistive Device: Rolling walker Gait Characteristics: Increased trunk flexion;step-to pattern;R decreased step length;L decreased step length;decreased mirza;No LOB;Unsteady Balance Sitting - Static: Contact Guard Assistance Sitting-Dynamic: Minimal Assistance Standing-Static: Contact Guard Assistance;With Assistive Device Standing-Static Assistive Device: Rolling walker Standing-Dynamic: Contact Guard Assistance;With Assistive Device Standing-Dynamic Assistive Device: Rolling walker Gait belt used: Yes Supplemental Oxygen Supplemental Oxygen: None (Room air) Vital Signs Vitals Therapy Vitals : vitals listed below Vitals Pre-Therapy HR( BPM): 80 SpO2 (%): 98 Respiratory Rate: 16 BP (mmHg): 122/88 (99) Vitals Post-Therapy HR( BPM): 73 SpO2 (%): 98 Respiratory Rate: 15 Position after Therapy/Safety Handoff Position after treatment and safety handoff Position after therapy session: Chair Details: RN notified;Call light/ needs within reach;visitor present;UE elevated on pillow for edemacontrol Alarms: Chair Alarms Status: Activated and Interfaced with call system Goals Collaborated with: Patient Patient Stated Goal: to go home Goals to be met by: 09/23/25 Patient will transition from supine to sit: Independent Patient will transition from sit to supine: Independent Patient will transfer from sit to stand: Modified Independent, up to assistive device Patient will ambulate: Supervision, with assistive device, distance (in feet) Ambulation Assistance Device: Rolling walker Distance (in feet): 50 ft Patient will participate in bilateral lower extremeity HEP in preperation for further functional mobility: 10 repetitions Pt Will report pain with functional mobility at: 03/03 or less Long-term goal to be met by: 09/30/25 Long-Term Goal : Patient will ambulate 100+ ft mod I using RW Patient/Family Education Educated patient and patient's family on the role of physical therapy, goals, plan of care, importance of increased activity, discharge recommendations, transfer training, and gait training and fall prevention strategies, including need for supervision/ assistance with OOB activity and use of call light; patient verbalized understanding, demonstrated understanding, and needed cues. Handout(s) issued: none. Plan Plan Treatment/Interventions: LE strengthening/ROM, Therapeutic Activity, Therapeutic Exercise, Patient/family training, Equipment eval/education, Gait training PT Frequency during hospitalization: minimum 3x/week The plan of care and recommendations assesses the patient's and/or caregiver's readiness, willingness, and ability to provide or support functional mobility and ADL tasks as needed upon discharge. Time Start Time: 1112 Stop Time: 1130 Time Calculation (min): 18 min Charges $PT Evaluation Mod Complex 30 Min: 1 Procedure Problem List Problem List[1] Past Medical History Past Medical History: Diagnosis Date Acute non-ST segment elevation myocardial infarction ([facility]) 02/26/2023 Anxiety Atherosclerosis of coronary artery without angina pectoris 02/26/2023 COPD (chronic obstructive pulmonary disease) ([facility]) Heart failure with improved ejection fraction (HFimpEF) ([facility]) Stress-induced cardiomyopathy 02/26/2023 Past Surgical History Past Surgical History: Procedure Laterality Date SECTION CHOLECYSTECTOMY HYSTERECTOMY [1] Patient Active Problem List Diagnosis Mastocytosis Septic shock, resolved Coronary artery disease involving [place] coronary artery of [place] heart without angina pectoris Chronic anxiety Chronic diastolic (congestive) heart failure ([facility]) Gastroesophageal reflux disease without esophagitis Morbid obesity ([facility]) Pneumonia of both lower lobes due to infectious organism Elevated LFTs Simple chronic bronchitis ([facility]) APARNA (obstructive sleep apnea) Acute respiratory failure with hypoxia ([facility]) Acute metabolic encephalopathy HFimpEF Opioid-induced constipation Chronic back+knee pain with R-sided sciatica * Pritesh Mosquera, DO - 09/16/2025 2:01 PM EDT Department of Internal Medicine MICU Progress Note Laura Mallory Attending physician: Monty Mahan MD Code status: Full Code Brief Hospital Course Laura Mallory is a 65 y.o. 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 Admitted to the MICU on 09/15. Found to be hypotensive. With concerns for septic shock started on Vanc, Cefepime, Flagyl. Started Levophed requiring upto 14U, given 1L LR, 1L NS for IVF resuscitation. Lab workup at OSH significantfor WBC 45.7 with neutrophilic shift, Hgb 11, PLT 407, AG elevated to 21.8, lactate 6.4, BUN 20, Cr2.2 (recently 0.9 on prior workup), otherwise electrolytes wnl. AST 403, ALT 228, ALP 796, Troponins flat. Lipase elevated to 3998, TSH wnl. L IJ central line placed. On arrival to [facility] was continued on norepinephrine, vancomycin, and zosyn. Received 2 L IVF. Subjective Interval history / significant events over the past 24 hours: - Continued on levo, hydrocort 50 Q6H started and vaso ordered but not needed. GI consulted, MRCP obtained. Given IVF bolus + mIVF. Central line and A-line placed. - Overnight: levo stopped, given hydrocort. MRCP at midnight showing no ductal dilation or filling defect, possible hepatic abscesses forming. - Morning: A line is bad per nursing. Pain at 0/10. Drips: - None Vitals Afebrile, HR 75-86, RR 12-34, SpO2 86-100%, BP 85-130/43-76 Resp RR 12-34, SpO2 86-100% on 2L NC overnight Labs CBC: WBC 24.7 (from 40s yesterday), Hb 8.1, Hct 25.3, Plt 283 RFP (3:30am): Na 135, K 3.5, Cl 106, CO2 20 (low), BUN 18, Cr 0.75, Ca 6.9, Mg 2.6, Albumin 2.5 LFTs (3:30am): Alk phos 431 (499), AST 121 (234), ALT 84 (133), Bili direct 0.69, GGT 358 LD 354 Haptoglobin 243 PT/INR wnl Micro E. Coli bacteremia on OSH blood cx E. Coli on OSH urine cx (iniguez-susceptible) Imaging - MRCP small hepatic foci of R liver c/f early abscess formation vs cholangitis, absent GB, no intra/extrahepatic ductal dilation or filling defects, CBD 8mm, atrophic pancrease with edema or dilation - RUQ US normal I/O Total in 681, total out 1.7L (all urine), no stool (net negative 1L) Brief summary of today's plan: - continue abx: zosyn (d/c vanc) - continue trending LFTs - repeat urine cx pending - call on 09/17 afternoon for OSH blood cx susceptibilties - continue mIVF for pancreatitis: 1L normosol over 12hrs - follow up on GI recs: likely no ERCP (no ductal dilation or filling defect), could have passed a stone, cont mIVF and abx - discussing plan for [facility] abx for hepatic abscesses - d/c hydrocortisone - restart gabapentin - start diet Assessment & Plan Laura Mallory is a 65 y.o. female on hospital day 2. The principal reason for today's follow-up visitis E. Coli bacteremia & urosepsis. Neurology / Pain / Sedation Baseline mental / functional status: AOx3 Pain / sedation: no sedation, Tylenol and oxy 10 PRN Restraints: None #Chronic back pain #Migraines Having back pain which is chronic and R shoulder pain which is new. Shoulder is not tender to palpation, no effusion apparent, no apparent deformities. potentially referred pain from abdomen? CT chest report from OSH does not note any effusion or fractures of R shoulder. - oxycodone 5-10 mg PRN - holding home celecoxib- wait until bp at baseline - Cont home Duloxetine, gabapentin - Tylenol PRN Cardiovascular Baseline EKG: prolonged QT, L anterior hemiblock #Shock, undifferentiated, likely septic #Ecoli bacteremia & urosepsis OSH workup showed elevated lactate with associated hypotension, iso leukocytosis upto 45 with neutrophilic shift, overall concerning for septic shock. Confirmed E coli positive urine and blood cultures from OSH. Also considering cholangitis vs pancreatitis. Not concerned for cardiogenic shock givenpreserved EF on formal TTE. Not concerned for hemorrhagic shock due to no apparent bleeding. S/p 2 L IVF here, plus additional at OSH, meeting 30cc/kg. Lactate downtrended with initiation of pressors. MRCP with c/f hepatic abscess, unlikely to be percutaneously or endoscopically drained, largest 1.5cm. 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 TTE 09/15/25 w/improved EF 60%. - Hold GDMT: Entresto 24-26 BID. Coreg 3.125 BID. Spironolactone (unsure if she has been taking it) - Hold home lasix #Non obstructive CAD No acute concerns. - Continue ASA + statin Pulmonary #COPD On RA at baseline, vitally stable since admission. Not concerned for COPD exacerbation. Desatted to86, required 2L NC overnight. - home LAMA, LABA, ICS Renal & Acid / Base Most recent serum creatinine: Lab Results Component Value Date CREATININE 0.75 09/16/2025 FEN / GI Nutrition: currently NPO GI prophylaxis: protonix Bowel regimen: Miralax, senna #Severe protein calorie malnutrition Meets criteria per RD assessment. Difficulty with poor appetite, nausea/vomiting, swallowing difficulty with meats. - STEEL ERECTING PUSHER consult #Pancreatitis #Transaminitis Patient p/w acute abdominal pain and back pain, somewhat radiating, lipase ~[address] A/P non-con at OSH was reported normal, still meets criteria for acute pancreatitis. 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 With elevated bilirubin, leukocytosis and RUQ pain some c/f cholangitis as well. Normal triglycerides. Cholestatic pattern of injury. Lipase downtrended now 462. - RUQ US normal, no duct dilatation seen on MRCP, likely manage conservatively (no need for ERCP) - Possible hepatic abscesses (long-term antibiotics? Cipro/flagyl for 4 wks?) - if not improving, consult IR - LFTs downtrending - GI following appreciate recs, MRCP w/o ductal dilation - maintenance IVF: 1L normosol over 12 hrs #C/f Hepatic abscesses #C/f Cholangitis 09/16/25 MRCP: Multiple small hepatic foci of R liver c/f early abscess formation vs cholangitis, absent GB, no intra/extrahepatic ductal dilation or filling defects, CBD 8mm, atrophic pancrease withedema or dilation. Possible that patient had stone causing sx that has now passed. Patient - cont abx as below, terminal operator regiment tbd Infection Antimicrobials: - Vancomycin (09/14 - 09/16) - Zosyn (09/14 - present) - Cefepime at OSH (09/14) - Flagyl at OSH (09/14) Workup: - Blood culture from [facility] collected 09/14/25: E.coli (preliminary as of 09/16) - Urine culture from [facility] collected 09/12/25: E.coli >100,000 CFU. Iniguez susceptible. - Blood culture [facility] 09/14: pending - Urine culture [facility] 09/14: pending Endocrine No acute issues. Goal BG <180 Hematology / Oncology #Acute on chronic anemia Hb 8.1 from 9.9 - CTM Rheumatology / Musculoskeletal No acute issues. Psychiatry #Anxiety - Cont home Atarax 25 BID PRN - Pain control as above Critical Care Checklist DVT ppx / anticoagulation: SQ UFH GI ulcer ppx: PPI Nutrition: Diabetic diet Invasive lines: D/c A line, keep central line Ni cath: Present Bowel integrity: PEG/Laxatives ordered Rectal tube: None Code status: Full Code Next of kin / POA update: To be updated by house staff Inpatient Medications Scheduled: aspirin 81 mg Oral Daily 0900 [Held by provider] atorvastatin 40 mg Oral Daily 0900 [Held by provider] carvediloL 3.125 mg Oral BID DULoxetine 60 mg Oral Daily 0900 [Held by provider] furosemide 40 mg Oral BID gabapentin 100 mg Oral TID heparin 5,000 Units Subcutaneous 3 times per day umeclidinium-vilanteroL 1 puff Inhalation RT Daily And mometasone 220 mcg/puff 1 puff Inhalation RT Daily mupirocin 1 g Topical BID [START ON 09/17/2025] pantoprazole 40 mg Oral DAILY 0600 piperacillin-tazobactam (ZOSYN) IV extended interval 4.5 g Intravenous Q8H polyethylene glycol 17 g Oral Daily 0900 [Held by provider] sacubitriL-valsartan 1 tablet Oral BID senna 1 tablet Oral Nightly (2099) [Held by provider] spironolactone 25 mg Oral BID topiramate 100 mg Oral Daily 0900 topiramate 150 mg Oral Nightly (2100) Continuous: None PRN:acetaminophen, hydrOXYzine HCL, ICU electrolyte replacement protocol AND Initiate electrolyte replacement protocol, oxyCODONE OR oxyCODONE Objective Vital signs: Temp: [97.9 ??F (36.6 ??C)-98.6 ??F (37 ??C)] 98.1 ??F (36.7 ??C) Heart Rate: [65-84] 69 Resp: [12-22] 18 BP: (109-151)/(53-113) 113/53 BP 113/53 Pulse 69 Temp 98.1 ??F (36.7 ??C) (Axillary) Resp 18 Ht 5' 5 (1.651 m) Wt (!) 232 lb 5.8 oz (105.4 kg) SpO2 97% BMI 38.67 kg/m?? Intake / output: Intake/Output Summary (Last 24 hours) at 09/16/2025 1412 Last data filed at 09/16/2025 1300 Gross per 24 hour Intake 2896.16 ml Output 1500 ml Net 1396.16 ml I/O last 3 completed shifts: In: 978.4 [P.O.:120; I.V.:228.2; IV Piggyback:630.2] Out: 2325 [Urine:2325] Wt Readings from Last 3 Encounters: 09/14/25 (!) 232 lb 5.8 oz (105.4 kg) 05/27/25 (!) 270 lb 4.5 oz (122.6 kg) 10/14/17 (!) 311 lb (141.1 kg) Labs & other diagnostic studies: Reviewed in Epic, with pertinent positive and negative findings as outlined above. Physical exam: Constitutional: No acute distress, appears stated age, well-nourished. HENT: Normocephalic, atraumatic, moist mucous membranes. Eyes: EOM grossly intact, normal conjunctiva, anicteric sclerae. Cardiovascular: RRR, no murmurs appreciated, extremities warm and well-perfused. Respiratory: No increased work of breathing on room air, bilateral expiratory wheezing. Abdomen: Soft, non-tender, non-distended. MSK: No peripheral edema, moves all extremities. Skin: Visible skin is warm, dry, intact. No visible rashes or lesions. Neurological: Alert, oriented x 4, no gross motor or sensory deficits. Psych: Mood appropriate for situation, no abnormal behaviors. CAM: Overall CAM-ICU : Delirium Present RASS: [place] Agitation Sedation Scale: 0 Patient was seen and discussed with fellow and attending physician, Monty Mireles MD. Note written by Natividad Lauren MS3 Reviewed and edited by: Pritesh Mosquera DO Internal Medicine, PGY-2 09/16/2025 2:12 PM Cosigned by Monty Mahan MD at 09/17/2025 4:30 PM EDT Associated attestation - Monty Mahan MD - 09/17/2025 4:30 PM EDT I have reviewed the documentation and agree with the plan. Please see my note for additions/addendums. Monty Mahan MD, PhD Pulmonary and Critical Care Medicine 09/17/2025 4:30 PM * Janak Holliday OT - 09/16/2025 1:54 PM EDT Occupational Therapy Initial Assessment Name: Laura Mallory : 1960 Attending Physician: Monty Mahan MD Admission Diagnosis: Septic shock Ascending cholangitis Date: 09/16/2025 Room: [place] [id number] Reviewed Pertinent hospital course: Yes Hospital Course PT/OT: 65 y/o F presents from OSH 09/14 w/ worsening constipation, abdominal pain, and generalized weakness. Pt became hypotensive, concern for septic shock. Labs significant for WBC 45.7 w/ neutrophilic shift, Hgb 11, PLT 407, AG elevated, lactate 6.4, BUN 20, Cr 2.2. Abd US 09/15:no acute abnormalities. CXR 09/15: hypoexpanded lungs with bibasilar airspace opacities, no pneumothorax. 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 [place]o cardiomyopathy, non-obstructive CAD, COPD (baseline RA), GERD, OA, anxiety, chronic back pain Precautions: MAP > 65 Activity Level: Activity as tolerated Assist: Co-evaluation performed Recommendation Recommendation: Home OT Equipment Recommendations: Patient already has needed DME Assessment Assessment: Decreased IADLs, Decreased Functional Mobility, Decreased activity tolerance, DecreasedADL status, Decreased Balance, Decreased self-care transfers Prognosis for OT goals: Good Pt resting in bed upon therapist arrival and tolerated session without any adverse events and with VSS. Laura demonstrated decreased ADL participation from reported functional baseline and required increased assistance for bed mobility, ADL transfers, and functional mobility. Pt primarily limited byfatigue and generalized weakness. Pt will benefit from inpatient skilled occupational therapy services to promote safety, return to prior level of function, and maximize functional independence. Upond/c from hospital, pt would benefit from home health occupational therapy to further progress independence and safety in occupational participation. Outcome Measures AM-PAC 6 Clicks Daily Activity Inpatient Short Form: OT 6 Clicks Score: 17 Functional Status Score ICU (FSS-ICU): Functional Status Score - ICU: 18 Home Living/Prior Function Patient able to provide accurate information at this time: Yes Lives With: Spouse Assistance available: 24 hour supervision Type of Home: Mobile home Home Entry: More than 1 step to enter, with railing Stairs to enter: 5 Home Layout: One level Bathroom Shower/Tub: Walk-in shower Bathroom Toilet: Standard Bathroom Equipment: Shower chair Home Equipment: Wheelchair-manual, Rolling Walker, Single-point cane Prior Function Functional Mobility: Modified Independent, with assistive device Uses Assistive Device: Rolling walker Receives Help From: Family ADL Assistance: Needs assistance Needs assistance with: Bathing IADL Assistance: Needs assistance (daughter in law and assists w/ cooking/cleaning) Needs assistance with: Meal preparation, Laundry, Cleaning, Driving Currently recieving therapy services: Yes Therapy services currently receiving: Home therapy Pain Pain Score: 5 Pain Location: Leg Therapist reported pain to: director of restaurant Oxygen Supplemental Oxygen Supplemental Oxygen: None (Room air) Vitals Vitals Therapy Vitals : vitals listed below Vitals Pre-Therapy HR( BPM): 80 SpO2 (%): 98 Respiratory Rate: 16 BP (mmHg): 122/88 (99) Vitals Post-Therapy HR( BPM): 73 SpO2 (%): 98 Respiratory Rate: 15 Cognition Overall Cognitive Status: Within Functional Limits Cognitive Assessment: Arousal/ Alertness;Orientation Level;Behavior;Following Commands;Safety Judgment;Insight Arousal/Alertness: Alert Orientation Level: Oriented X4 Behavior: Appropriate;Cooperative Following Commands: Follows all commands and directions without difficulty Safety Judgment: Good awareness of safety precautions Insight: Demonstrated intact insight into limitation and abilities to complete ADL's safely [place] Agitation Sedation Scale: Alert and calm Vision/Hearing/Perception Hearing: No hearing deficits noted Baseline Vision: Wears glasses all the time Overall Vision/ Perception: Within Functional Limits Right [...] Grossly WFL as observed during functional activites Neuromuscular Overall Sensation: Patient denies any numbness/ tingling in BUE's/ BLEs Functional Mobility Bed Mobility Supine to Sit: Minimal assistance;head of bed elevated;towards the left;increased time to complete task Sit to Supine: (in chair at EOS) Transfers Sit to Stand: Minimal assistance;up to assistive device;cues for hand placement Sit to Stand Assistive Device: Rolling walker Stand to Sit: Minimal assistance;with assistive device;cues for hand placement Stand to Sit Assistive Device: Rolling walker Functional Mobility: Contact guard assistance;with assistive device (short household distance) Functional Mobility Assistive Device: Rolling walker Unable to progress further due to: fatigue Balance Sitting - Static: Stand by Assistance Sitting-Dynamic: Contact Guard Assistance Standing-Static: Contact Guard Assistance;With Assistive Device Standing-Static Assistive Device: Rolling walker Standing-Dynamic: Contact Guard Assistance;With Assistive Device Standing-Dynamic Assistive Device: Rolling walker Gait belt used: Yes ADL Lower Body Dressing: Maximum assistnace Lower Body Dressing Deficit: Don/doff L sock;Don/doff R sock Location Assessed LE Dressing: Seated edge of bed Toileting Deficit: Pt declined Position after Treatment/Safety Handoff Position after therapy session: Chair Details: RN notified;visitor present;Call light/ needs within reach Alarms: Chair Alarms Status: Activated and Interfaced with call system Plan Plan Treatment Interventions: ADL retraining, Activity Tolerance training, Continued evaluation, Equipment eval/education, Functional transfer training, Compensatory technique education, Therapeutic Activity, UE strengthening/ROM, Excercise, Energy Conservation OT Frequency during hospitalization: minimum 4x/week The plan of care and recommendations assesses the patient's and/or caregiver's readiness, willingness, and ability to provide or support functional mobility and ADL tasks as needed upon discharge. Goals Goals to be met in: 1 week Patient stated goal: to return to baseline/PLOF Patient will complete supine to sit in prep for ADLs: Contact Guard assistance Patient will complete functional chair transfer: Stand-by assistance Patient will complete toilet transfer: Will tolerate assessment Patient will complete toileting: Will tolerate assessment Patient will complete lower body dressing: Minimal assistance Training Specialist Goal : Pt will tolerate bathing assessment jail goal to be met in: 2 weeks Collaborated with: Patient Patient/Family Education Educated patient and patient's family on the role of occupational therapy, OT goals, OT plan of care, and discharge recommendation and fall prevention strategies including need for supervision/ assistance with OOB activity and use of call light. patient verbalized understanding. OT Time Start Time: 1112 Stop Time: 1130 Time Calculation (min): 18 min OT Charges $OT Evaluation Mod Complex 45 Min: 1 Procedure Problem List Problem List[1] Past Medical History Past Medical History: Diagnosis Date Acute non-ST segment elevation myocardial infarction ([facility]) 02/26/2023 Anxiety Atherosclerosis of coronary artery without angina pectoris 02/26/2023 COPD (chronic obstructive pulmonary disease) ([facility]) Heart failure with improved ejection fraction (HFimpEF) ([facility]) Stress-induced cardiomyopathy 02/26/2023 Past Surgical History Past Surgical History: Procedure Laterality Date SECTION CHOLECYSTECTOMY HYSTERECTOMY [1] Patient Active Problem List Diagnosis Mastocytosis Septic shock, resolved Coronary artery disease involving [place] coronary artery of [place] heart without angina pectoris Chronic anxiety Chronic diastolic (congestive) heart failure ([facility]) Gastroesophageal reflux disease without esophagitis Morbid obesity ([facility]) Pneumonia of both lower lobes due to infectious organism Elevated LFTs Simple chronic bronchitis ([facility]) APAR[place] (obstructive sleep apnea) Acute respiratory failure with hypoxia ([facility]) Acute metabolic encephalopathy HFimpEF Opioid-induced constipation Chronic back+knee pain with R-sided sciatica * Herbert GreenD - 09/16/2025 11:26 AM EDT Clinical Pharmacy Service - IV to PO Conversion Progress Note Laura Mallory is a 65 y.o. female. Patient has functioning GI tract (e.g. 40mL/hr of tube feeding of 1000mL/day of PO fluids), Patient taking other oral medications, and Patient clinical status improving (e.g. afebrile, decreasing WBC). Per [facility] MGMT-044, IV to PO Conversion Policy, the following IV order(s) have been changed: Ordered: Pantoprazole 40 mg IV q24h, Changed To: Pantoprazole 40 mg PO q24h If at any time the Provider does not wish for the IV to PO conversion, they may override the conversion. Please note Dose as Written in the medication order. Thank you, Carlos Fletcher PharmD 09/16/2025 11:26 AM * Carlos Fletcher PharmD - 09/16/2025 9:53 AM EDT Clinical Pharmacy Service: Vancomycin Consult Progress Note Patient has been transitioned off of vancomycin therapy per team notes and orders. Pharmacy will sign-off. Thank you for the consult; please reconsult for any additional needs. Carlos Fletcher PGY2 [employer] 9:53 AM 09/16/2025 * Monty Mahan MD - 09/16/2025 8:32 AM EDT MICU PROGRESS NOTE I independently saw and examined this patient on 09/16/2025. The x-rays and labs were reviewed. Thecase was discussed in detail during multidisciplinary rounds, the events of the past 24 hours reviewed, and a plan for medical care arranged. HPI Laura Mallory is a 65 y.o. with PMHx significant for HFimpEF (EF 55-60%) 2/2 Tak[place]ubo cardiomyopathy, non-obstructive CAD, COPD (baseline RA), GERD, OA, anxiety, chronic back pain presenting as [facility] with septic shock. Past 24 hrs Events: Off pressors overnight MRCP showed normal bile duct, no dilation or filling defects. Signs concerning for early abscess formation Still making urine UOP 1.6 Pain controlled Labs: WBC coming down Hgb 8.1 Bicarb dropping to 20 LFts better. Alk phos coming down. Bilis coming down Micro with positive blood cultures for E.Coli, as well as Urine culture Drips: Intake/Output Summary (Last 24 hours) at 09/16/2025 0832 Last data filed at 09/16/2025 0800 Gross per 24 hour Intake 681.12 ml Output 1625 ml Net -943.88 ml Lines: Patient Lines/Drains/Airways Status Active LDAs Name Placement date Placement time Site Days CVC Triple Lumen 09/15/25 Right Internal jugular 09/15/25 1350 Internal jugular less than 1 Arterial Line 09/15/25 Left Radial 09/15/25 1404 Radial less than 1 Renal Recent Labs 09/14/25203709/15/25 0455 09/16/25 0344 NA 135 134 135 K 4.1 3.5 3.5 CL 104 103 106 CO2 19* 19* 20* BUN 18 CREATININE 1.64* 1.30 0.75 CALCIUM 7.8* 7.7* 6.9* MG 1.7 4.0* 2.6* PHOS 4.1 3.7 2.8 CBC Recent Labs 09/14/25203709/15/25 0455 09/16/25 0344 HGB 10.2* 9.9* 8.1* HCT 31.1* 30.3* 25.3* PLT 358 343 283 WBC 48.3* 40.7* 24.7* Liver Recent Labs 09/14/25203709/15/25 0455 09/16/25 0344 AST 283* 234* 121* ALT 147* 133* 84* ALKPHOS 516* 499* 431* ALBUMIN 3.1* 3.1* 2.9* 2.9* 2.5* 2.5* BILITOT 4.7* 3.3* 1.2 BILIDIRECT 3.66* 2.44* 0.69* INR 1.1 1.1 1.1 Allergies Allergies[1] BP (!) 137/113 Pulse 68 Temp 98.6 ??F (37 ??C) (Axillary) Resp 16 Ht 5' 5 (1.651 m) Wt (!) 232 lb 5.8 oz (105.4 kg) SpO2 98% BMI 38.67 kg/m?? Objective Temp: [97.9 ??F (36.6 ??C)-98.6 ??F (37 ??C)] 98.6 ??F (37 ??C) Heart Rate: [68-86] 68 Resp: [12-34] 16 BP: (85-137)/(44-113) 137/113 HEENT - PERRL, conjugate gaze. No evidence of cranial or facial trauma Neck - No palpable adenopathy CV - RRR without murmur or rub Chest/Lungs - Bilateral symmetrical respiratory excursions noted. No insp crackles or exp wheeze and no prolongation of the exp phase Abd - soft without tenderness or guarding - ni cath in place draining clear yellow urine Ext - no deformity or edema. Neuro - Mood and affect appropriate. CN's 2-12 grossly intact. No gross motor or sensory deficit. ASSESSMENT AND PLAN #Shock, resolved. concerns for ascending cholangitis but without biliary ductal dilation on CT AP from OSH. UTI also in the differential #Transaminitis with cholestasis, concerns for ascending cholangitis but cannot rule out other formsof obstruction such as malignancy. No pancreatic masses on CT #Pancreatitis, unclear trigger but concerning for gallstone induced #FER, likely prerenal from shock and low intravascular volume Plan --1 L IVF 100/hr over 24 hrs for pancreatitis --DC hydrocortisone --Continue with pip/tazo and deescalate based on antibiogram from OSH Need to figure if we need [facility] antibiotics --DC vancomycin --Hold antihypertensive medications still Family: To be updated by house staff Code status: Full Code Drips: DVT PPx: Current Anticoagulation (Only) aspirin EC tablet 81 mg heparin (porcine) injection 5,000 Units Diet: Orders Placed This Encounter Procedures Diet NPO past midnight Except for: except meds GI PPx: [x]PPI []H2 filomena []Sucralfate []Not indicated Bowel reg: Osmotic: [x]Miralax []Lactulose []Mag sulfate/citrate Stimulant: []Senna []Dulcolax Softener: []Docusate Lines: Patient Lines/Drains/Airways Status Active LDAs Name Placement date Placement time Site Days CVC Triple Lumen 09/15/25 Right Internal jugular 09/15/25 1350 Internal jugular less than 1 Arterial Line 09/15/25 Left Radial 09/15/25 1404 Radial less than 1 Tubes: IUC (Ni) Double-lumen (Active) $ New ni Inserted? Yes 09/14/252029 Status Trail Drainage 09/15/25 0800 Collection Container Standard drainage bag 09/15/25 0800 Securement Method StatLock 09/15/25 0800 Indication for IUC continuation Require accurate, continuous UOP measuring in critically ill 09/15/25 08 Output (mL) 50 mL 09/15/25 1000 PT recs: OT recs: STEEL ERECTING PUSHER recs: I spent a total of 35 minutes of critical care time caring for this patient with septic shock, including direct patient contact, management of life support systems review of data (i.e.: imaging and lab), discussion with team members and consultants, and this time excludes time spent on procedures. Critical care was necessary to treat and prevent life-threatening deterioration from these conditions and requires high complexity decision making for assessment and support including: Hemodynamic and volume assessment with volume resuscitation Frequent vasoactive agent adjustments Assessment and treatment of complex metabolic derangement Frequent evaluation of patient's response to treatment and titration of therapy Application of advanced monitoring technologies Extensive interpretation of multiple databases and records Development of treatment plan with patient or surrogate Monty Mahan MD, PhD Pulmonary and Critical Care 8:32 AM, 09/16/2025 [1] Allergies Allergen Reactions Aleve [Naproxen Sodium] Cristina [Fexofenadine] * Guille Barrett, CR[employer] PHOTOGRAPHER - 09/16/2025 6:43 AM EDT Images from the original note were not included. GI FOLLOW UP NOTE ID: [id number] Laura Mallory 65 yo female admitted from OSH with shock thought to be secondary to sepsis, labs suspicious for acute pancreatitis Interim: Patient reports having minimal pain. Denies nausea or vomiting. Reports having bowel function. Denies fevers or chills. ROS: 10 pt ROS negative unless otherwise noted above Vitals: Temp: [97.9 ??F (36.6 ??C)-98.9 ??F (37.2 ??C)] 98.6 ??F (37 ??C) Heart Rate: [75-86] 78 Resp: [12-34] 12 BP: (85-130)/(43-74) 130/74 Intake/Output Summary (Last 24 hours) at 09/16/2025 0643 Last data filed at 09/16/2025 0600 Gross per 24 hour Intake 785.85 ml Output 1775 ml Net -989.15 ml Physical Exam Gen: Ill appearing. No acute distress. HEENT: NC/AT, EOMI, moist mucus membranes CV: RRR, no m/r/g, no LE edema Lungs: Clear to auscultation bilaterally. Abdomen: +BS, soft, nontender Extremities: warm, well perfused Neuro: A&Ox3, moving all extremities spontaneous Skin: no bruising/rashes/jaundice Psych: normal affect Recent labs and imaging reviewed Latest Reference Range & Units 09/14/25 20:38 09/15/25 04:55 09/16/25 03:44 Sodium 133 - 146 mmol/L 135 134 135 Potassium 3.5 - 5.3 mmol/L 4.1 3.5 3.5 Chloride 98 - 110 mmol/L 104 103 106 Carbon Dioxide (CO2) 21 - 33 mmol/L 19 (L) 19 (L) 20 (L) Anion Gap 3 - 16 mmol/L 12 12 9 BUN 7 - 25 mg/dL 24 24 18 Creatinine 0.60 - 1.30 mg/dL 1.64 (H) 1.30 0.75 Glucose 70 - 100 mg/dL 125 (H) 105 (H) 89 EGFR 34 45 88 Calcium 8.6 - 10.3 mg/dL 7.8 (L) 7.7 (L) 6.9 (L) Phosphorus 2.1 - 4.5 mg/dL 4.1 3.7 2.8 Magnesium 1.5 - 2.5 mg/dL 1.7 4.0 (H) 2.6 (H) Albumin 3.5 - 5.7 g/dL 3.1 (L) 2.9 (L) 2.5 (L) Calculated Osmolality, Serum 278 - 305 mOsm/kg 286 282 281 (L): Data is abnormally low (H): Data is abnormally high Latest Reference Range & Units 09/14/25 20:38 09/15/25 04:55 09/15/25 15:07 09/16/25 03:44 Alkaline Phosphatase 36 - 125 U/L 516 (H) 499 (H) 431 (H) AST (SGOT) 13 - 39 U/L 283 (H) 234 (H) 121 (H) ALT (SGPT) 7 - 52 U/L 147 (H) 133 (H) 84 (H) Albumin 3.5 - 5.7 g/dL 3.1 (L) 2.9 (L) 2.5 (L) GGT 9 - 64 U/L 358 (H) Protein, Total 6.4 - 8.9 g/dL 6.1 (L) 5.9 (L) 5.3 (L) Bilirubin, Indirect 0.00 - 1.10 mg/dL 1.04 0.86 0.51 Bili, Total 0.0 - 1.5 mg/dL 4.7 (H) 3.3 (H) 1.2 Bilirubin, Direct 0.00 - 0.40 mg/dL 3.66 (H) 2.44 (H) 0.69 (H) Lipase 4 - 82 U/L 462 (H) (H): Data is abnormally high (L): Data is abnormally low Latest Reference Range & Units 09/14/25 20:38 09/15/25 04:55 09/16/25 03:44 WBC 3.8 - 10.8 10E3/uL 48.3 (H) 40.7 (H) 24.7 (H) RBC 3.80 - 5.10 10E6/uL 3.43 (L) 3.32 (L) 2.86 (L) Hemoglobin 11.7 - 15.5 g/dL 10.2 (L) 9.9 (L) 8.1 (L) Hematocrit 35.0 - 45.0 % 31.1 (L) 30.3 (L) 25.3 (L) MCV 80.0 - 100.0 fL 90.8 91.0 88.6 MCH 27.0 - 33.0 pg 29.7 29.8 28.4 MCHC 32.0 - 36.0 g/dL 32.7 32.7 32.1 RDW 11.0 - 15.0 % 19.0 (H) 18.8 (H) 18.7 (H) Platelet Count 140 - 400 10E3/uL 358 343 283 Platelet Estimate ADEQ MPV 7.5 - 11.5 fL 8.6 8.4 8.7 (H): Data is abnormally high (L): Data is abnormally low CT A/P 09/12/2025: 09/15/2025 Abdominal US: FINDINGS: Liver: Normal morphology and surface contour. [...] the upper abdomen. Other: No free fluid. Impression IMPRESSION: Normal sonographic appearance of the liver and biliary tree. MRCP 09/16/2025: FINDINGS: Liver: Normal morphology and surface contour. There are multiple small heterogeneous foci of T2 hyperintensity in the posterior right liver, primarily involving segments 7 and 6. The largest measuresup to 1.5 cm. Biliary Tree/Gallbladder: Absent gallbladder. [...] suspicious focal lesions. Lower Chest: Dependent atelectasis. Impression IMPRESSION: 1. Normal caliber bile ducts, post cholecystectomy, without filling defects. 2. Multiple small scattered foci of T2 hyperintensity in segment 7 and 6 of the right liver. These are nonspecific, but concerning for areas of inflammation/early abscess formation. Cholangitis is a possible etiology. Assessment/Plan: Laura Mallory is a 65 y.o. with a history of acute DE 2022, anxiety, non- obstructive CAD, COPD, heartfailure, stress induced cardiomyopathy, hysterectomy, cholecystectomy, GERD, OA, chronic back pain who was transferred from [facility] with concern for septic shock. #Acute pancreatitis #Elevated LFTs #Concern for biliary obstruction #Sepsis - Presents from OSH with concern for shock likely secondary to sepsis, on pressors with concern forpossible cholangitis vs urinary source - Imaging from OSH from 09/12/25 with bladder wall thickening. Evidence of cholecystectomy. Pancreas unremarkable - On presentation to OSH- lipase was > 3000 with elevated LFTs in a cholestatic pattern, on presentation lipase 462, LFTs and T bili are trending down and there has been significant improvement inleukocytosis - reflective of possible passed stone/resolved obstructive process - Triglycerides 69 - Denies alcohol or tobacco use - BISAP score 3 - Per chart review patient had E coli positive urine and blood cultures from OSH - Repeat urine cultures pending - RUQ US with normal sonographic appearance of the liver and biliary tree - MRCP with normal caliber bile ducts, post cholecystectomy without filling defects. Multiple smallscattered foci in the right liver which are nonspecific and concerning for areas of inflammation/early abscess formation. Cholangitis possible etiology - With down trending LFTs and bilirubin and improvement in leukocytosis no plans for urgent endoscopic evaluation - Monitor hepatic panel - Continue antibiotics - Continue IV fluids - Continue supportive care per ICU Patient discussed with advanced GI attending, Dr. Mariana Barrett CNP Pancreas/Biliary team * Wendie Valentin MD - 09/15/2025 1:32 PM EDT Department of Internal Medicine MICU Daily Progress Note Patient: Laura Mallory Room: [place] [address] Code Status: Full Background / Hospital Course Laura Mallory is a 65 y.o. 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 Found to be hypotensive. With concerns for septic shock started on Vanc, Cefepime, Flagyl. Started Levophed requiring upto 14U, given 1L LR, 1L NS for IVF resuscitation. Lab workup at OSH significantfor WBC 45.7 with neutrophilic shift, Hgb 11, PLT 407, AG elevated to 21.8, lactate 6.4, BUN 20, Cr2.2 (recently 0.9 on prior workup), otherwise electrolytes wnl. AST 403, ALT 228, ALP 796, Troponins flat. Lipase elevated to 3998, TSH wnl. L IJ central line placed. On arrival to [facility] was continued on norepinephrine, vancomycin, and zosyn. Received 2 L IVF. Interval History / Subjective Significant events/labs/imaging over the past 24 hours: - VS: Afebrile. MAP 52. - I/O: 2 L normosol / 550 mL uop - Drips: levo at 15. Brief Daily Plan: - start vaso and HC 50 mg q6h - central line & art lines - RUQ ultrasound, GI consult, review OSH CT A/P - 1 L IVF bolus followed by maintenance fluids - continue vanc & zosyn. follow cultures. Assessment & Plan Laura Mallory is a 65 y.o. female with <principal problem not specified>. Medical problems being addressed in this encounter include the following: Neurology, Pain, Sedation: #Chronic back pain #Migraines Having back pain which is chronic and R shoulder pain which is new. Shoulder is not tender to palpation, no effusion apparent, no apparent deformities. potentially referred pain from abdomen? CT chest report from OSH does not note any effusion or fractures of R shoulder. - oxycodone 5-10 mg PRN - holding home celecoxib, gabapentin due to FER - Cont home Duloxetine - Tylenol PRN Pulmonary: #COPD On RA at baseline, vitally stable since admission not requiring O2 supplementation. Not concerned for COPD exacerbation. - home LAMA, LABA, ICS Cardiovascular: #Shock, undifferentiated, likely septic #Ecoli bacteremia & urosepsis OSH workup showed elevated lactate with associated hypotension, iso leukocytosis upto 45 with neutrophilic shift, overall concerning for septic shock. Confirmed E coli positive urine and blood cultures from OSH. Also considering cholangitis vs pancreatitis. Not concerned for cardiogenic shock givenpreserved EF on formal TTE. Not concerned for hemorrhagic shock due to no apparent bleeding. S/p 2 L IVF here, plus additional at OSH, meeting 30cc/kg. Lactate downtrended with initiation of pressors. - Continue levophed, MAP goal >65 - start vaso - start hydrocortisone 50 mg q6h - RUQ ultrasound & advanced GI consult - Abx: Vanc + Zosyn - follow Blood cultures, urine cultures #HFrecEF 2/2 Takotsubo cardiomyopathy Not in acute exacerbation. TTE 09/15/25 w/improved EF 60%. - Hold GDMT: Entresto 24-26 BID. Coreg 3.125 BID. Spironolactone (unsure if she has been taking it) - Hold home lasix #Non obstructive CAD No acute concerns. - Continue ASA + statin Gastrointestinal: #Severe protein calorie malnutrition Meets criteria per RD assessment. Difficulty with poor appetite, nausea/vomiting, swallowing difficulty with meats. - STEEL ERECTING PUSHER consult - NPO for now pending procedure. #Pancreatitis #Transaminitis Patient p/w acute abdominal pain and back pain, somewhat radiating, lipase ~[address] A/P non-con at OSH was reported normal, still meets criteria for acute pancreatitis. 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 With elevated bilirubin, leukocytosis and RUQ pain some c/f cholangitis as well. Normal triglycerides. Cholestatic pattern of injury. Lipase downtrended now 462. - NPO for now - RUQ US to evaluate for gallstones, biliary dilation, etc. - advanced GI consulted - maintenance IVF - zosyn Renal (Electrolytes, Acid/Base): #UTI Iniguez susceptible E.Coli growing on urine & blood culture from OSH. - CT A/P at outside hospital not showing any abscess or c/f pyelonephritis, no stones - vanc & zosyn - urine culture sent here #FER Cr 1.6 on admission from baseline of 0.9. Improved with fluids to 1.3. Most likely 2/2 shock. - daily RFP - ni for UOP monitoring Genitourinary: - No acute issues. - Ni in place draining clear yellow urine. Infectious Disease: Workup: Blood culture from [facility] collected 09/14/25: E.coli (preliminary as of 09/15) Urine culture from [facility] collected 09/12/25: E.coli >100,000 CFU. Iniguez susceptible. Blood culture [facility] 09/14: pending Urine culture [facility] 09/14: pending Abx: Vancomycin (started at OSH) 09/14 - present Cefepime at OSH 09/14 Flagyl at OSH 09/14 Zosyn 09/14 - present Endocrine: - No acute issues. Goal BG <180. Hematology/Oncology: Acute on chronic anemia Hgb 9.9 from . - CTM Psychiatry: #Anxiety - Cont home Atarax 25 BID PRN - Pain control as above F/E/N: - Replete electrolytes PRN. - Nutrition: NPO Diet/Nutrition Orders Diet NPO Frequency: Effective Now Number of Occurrences: Until Specified Disposition: remain in MICU. DVT/Anticoagulation: {SQ UFH GI Ulcer Prophylaxis: PPI Nutrition: NPO LDA: Patient Lines/Drains/Airways Status Active LDAs Name Placement date Placement time Site Days CVC Triple Lumen 09/14/25 Left Internal jugular 09/14/252036 Internal jugular less than 1 Invasive Lines: DC CVL from outside hospital. Replace with new CVL. New A-line. Ni Cath: Present Bowel Integrity: PEG/Laxatives ordered Rectal Tube: None Code Status: Full Code Next of kin / POA update: Patient/NOK/POA updated at bedside Vital Signs & Physical Exam Temp: [97.2 ??F (36.2 ??C)-98.9 ??F (37.2 ??C)] 98 ??F (36.7 ??C) Heart Rate: [71-86] 86 Resp: [13-28] 28 BP: (75-115)/(41-99) 97/59 GENERAL: Alert and cooperative. No acute distress. EYES: PERRL. EOM intact. No scleral icterus. ENT: Neck supple. Trachea midline. No obvious masses or deformities. No cervical lymphadenopathy. HEART: Regular rate and rhythm. S1, S2 intact. No murmurs, rubs, gallops. No peripheral edema. LUNGS: Clear to auscultation bilaterally. Normal work of breathing. ABDOMEN: Soft, non distended. Tender to palpation throughout. No rebound or guarding. SKIN: No rashes. No ecchymoses. No jaundice. NEURO: Oriented to person, place, and time. Speech normal. No facial asymmetry. Tremor of hands at baseline. Intake/Output Summary (Last 24 hours) at 09/15/2025 1332 Last data filed at 09/15/2025 1200 Gross per 24 hour Intake 297.28 ml Output 1085 ml Net -787.72 ml Admit Wt: Weight: (!) 232 lb 5.8 oz (105.4 kg) Recent Results All laboratory and imaging data reviewed. WENDIE VALENTIN MD MICU Resident 1:32 PM Cosigned by Monty Mahan MD at 09/15/2025 4:29 PM EDT Associated attestation - Monty Mahan MD - 09/15/2025 4:29 PM EDT I have reviewed the documentation and agree with the plan. Please see my note for additions/addendums. Monty Mahan MD, PhD Pulmonary and Critical Care Medicine 09/15/2025 4:29 PM * Carlos Fletcher, PharmD - 09/15/2025 1:01 PM EDT Images from the original note were not included. CLINICAL PHARMACY SERVICES: Vancomycin Dosing Consult Laura Mallory is a 65 y.o. female currently being treated with intravenous vancomycin. Pharmacy is consulted to manage vancomycin for empiric treatment per consult order and chart review. Objective Data Patient is allergic to aleve [naproxen sodium] and cristina [fexofenadine]. Vitals: 09/15/25 0735 09/15/25 0800 09/15/25 0900 09/15/25 1000 BP: 97/43 103/64 91/56 97/55 Pulse: 77 79 80 81 Resp: 19 16 20 15 Temp: 98.9 ??F (37.2 ??C) TempSrc: Axillary SpO2: 96% 96% 96% 96% Weight: Height: I/O last 3 completed shifts: In: 297.3 [I.V.:69; IV Piggyback:228.3] Out: 550 [Urine:550] WBC, BUN, Creatinine (Last 7 days) Today 0455 Yesterday 2037 WBC 40.7 48.3 BUN 24 24 Creatinine 1.30 1.64 [place] body weight: 57 kg (125 lb 10.6 oz) Adjusted ideal body weight: 76.4 kg (168 lb 5.5 oz) Wt Readings from Last 1 Encounters: 09/14/25 (!) 232 lb 5.8 oz (105.4 kg) Lab Results Component Value Date CREATININE 1.30 09/15/2025 CREATININE 1.64 (H) 09/14/2025 --Cultures and Antibiotics-- Microbiology Results Date and Time Order Name Sensitivity Status Organisms Specimen ID Source 09/15/2025 4:55 AM MRSA/Staph aureus DNA- Diagnostic Testing for Pneumonia (Nares Swab) Final [id number] Nares 09/14/2025 9:13 PM Urine culture In process [id number] Urine 09/15/2025: MRSA, PCR Negative (Ref range: Negative) 09/15/2025: Staph Aureus, PCR Negative (Ref range: Negative) Current Anti-Infectives Dose Frequency Start End piperacillin-tazobactam (ZOSYN) 4.5 g in sodium chloride 0.9 % 100 mL [id number] (Completed) 4.5 g Once 09/14/2025 09/14/2025 Admin Instructions: Use [id number] Adapter - Mix Thoroughly Before Administration Route: Intravenous Linked Group 1: Placed in Followed by Linked Group piperacillin-tazobactam (ZOSYN) 4.5 g in sodium chloride 0.9 % 100 mL [id number] 4.5 g Every 8 hours 09/15/2025 -- Admin Instructions: Use [id number] Adapter - Mix Thoroughly Before Administration Route: Intravenous Linked Group 1: Placed in Followed by Linked Group vancomycin (VANCOCIN) 1,500 mg in sodium chloride 0.9 % 250 mL [id number] 15 mg/kg ?? 105.4 kg Every 12 hours 09/15/2025 -- Admin Instructions: Contact pharmacy if there is a question/concern of whether vancomycin should begiven based on serum drug levels. Use [id number] Adapter - Mix Thoroughly Before Administration Route: Intravenous documented within (last 72 hours) Date/Time Action Medication Dose Rate 09/15/25 1219 New Bag vancomycin (VANCOCIN) 1,500 mg in sodium chloride 0.9 % 250 mL [id number] 1,500 mg 166.7 mL/hr 09/14/252154 Not Given vancomycin (VANCOCIN) 25 mg/kg in sodium chloride 0.9 % 250 mL IVPB 250 mL/hr Lab Results (Last 7 days) Today 933 Yesterday 2037 Vanc Rdm 16.3 39.0 --Assessment and Plan-- Unknown previous dose and timing of vancomycin Vancomycin level assessment 09/14 @ 2037: 39 ug/mL, 09/15 @ 933: 16.3 ug/mL Ke = 0.067 1h T1/2 = 10.3 h Initiate vancomycin 1500 mg IV q12h Target vancomycin trough concentration: 15-20 mcg/mL Vancomycin serum concentration(s) assessment prior to the 4th dose. Pharmacy will continue to follow. Thank you for the consult. * Duncan Pulido - 09/15/2025 11:30 AM EDT My initial visit with this patient. Awake and responsive. coming in later. From [place]. Drea Gilliam. Appreciated visit and prayer. Please page our service at [phone] as needs arise for patient and/or family. Mars Lopez. * Janak Holliday OT - 09/15/2025 10:26 AM EDT Occupational Therapy Reason Patient Not Seen Name: Laura Mallory : 1960 Attending Physician: Monty Mahan MD Admission Diagnosis: Septic shock Ascending cholangitis Date: 09/15/2025 Precautions: Precautions: MAP > 65 Reviewed Pertinent hospital course: Yes Unable to see patient due to: Per RN, pt requiring increased pressors due to hypotension. Therapy will follow up as medically appropriate and able. Time Attempted: 1025 * Monty Mahan MD - 09/15/2025 10:25 AM EDT MICU PROGRESS NOTE I independently saw and examined this patient on 09/15/2025. The x-rays and labs were reviewed. Thecase was discussed in detail during multidisciplinary rounds, the events of the past 24 hours reviewed, and a plan for medical care arranged. HPI Laura Mallory is a 65 y.o. with PMHx significant for Patient was initially admitted for Past 24 hrs Events: Still on levophed Still making urine Pain in back Labs: Drips: norepinephrine 15 mcg/min (09/15/25 0659) Intake/Output Summary (Last 24 hours) at 09/15/2025 1025 Last data filed at 09/15/2025 1000 Gross per 24 hour Intake 297.28 ml Output 965 ml Net -667.72 ml Lines: Patient Lines/Drains/Airways Status Active LDAs Name Placement date Placement time Site Days CVC Triple Lumen 09/14/25 Left Internal jugular 09/14/252036 Internal jugular less than 1 Renal Recent Labs 09/14/25203709/15/25 0455 NA 135 134 K 4.1 3.5 CL 104 103 CO2 19* 19* BUN 24 24 CREATININE 1.64* 1.30 CALCIUM 7.8* 7.7* MG 1.7 4.0* PHOS 4.1 3.7 CBC Recent Labs 09/14/25203709/15/25 0455 HGB 10.2* 9.9* HCT 31.1* 30.3* PLT 358 343 WBC 48.3* 40.7* Liver Recent Labs 09/14/25203709/15/25 0455 AST 283* 234* ALT 147* 133* ALKPHOS 516* 499* ALBUMIN 3.1* 3.1* 2.9* 2.9* BILITOT 4.7* 3.3* BILIDIRECT 3.66* 2.44* INR 1.1 1.1 Allergies Allergies[1] BP 103/64 (BP Location: Right upper arm, Patient Position: Lying, BP Cuff Size: Large) Pulse 80 Temp 98.9 ??F (37.2 ??C) (Axillary) Resp 20 Ht 5' 5 (1.651 m) Wt (!) 232 lb 5.8 oz (105.4 kg) SpO2 96% BMI 38.67 kg/m?? Objective Temp: [97.2 ??F (36.2 ??C)-98.9 ??F (37.2 ??C)] 98.9 ??F (37.2 ??C) Heart Rate: [71-84] 80 Resp: [14-25] 20 BP: (75-115)/(41-99) 103/64 HEENT - PERRL, conjugate gaze. No evidence of cranial or facial trauma Neck - No palpable adenopathy CV - RRR without murmur or rub Chest/Lungs - Bilateral symmetrical respiratory excursions noted. No insp crackles or exp wheeze and no prolongation of the exp phase Abd - soft without tenderness or guarding - ni cath in place draining clear yellow urine Ext - no deformity or edema. Neuro - Mood and affect appropriate. CN's 2-12 grossly intact. No gross motor or sensory deficit. ASSESSMENT AND PLAN #Shock, concerns for ascending cholangitis but without biliary ductal dilation on CT AP from OSH. UTI also in the differential #Transaminitis with cholestasis, concerns for ascending cholangitis but cannot rule out other formsof obstruction such as malignancy. No pancreatic masses on CT #Pancreatitis, unclear trigger but concerning for gallstone induced #FER, likely prerenal from shock and low intravascular volume Plan --Gi consult for potential ERCP Abdominal US now. --Continue vasopressor support with MAP >65 --1L bolues, IVF 100/hr for pancreatitis --Continue with pip/tazo and vancomycin until we have cultures. --Hold antihypertensive medications --Will need new central line and arterial line. Family: To be updated by house staff Code status: Full Code Drips: norepinephrine 15 mcg/min (09/15/25 8513) DVT PPx: Current Anticoagulation (Only) aspirin EC tablet 81 mg heparin (porcine) injection 5,000 Units Diet: Orders Placed This Encounter Procedures Diet NPO GI PPx: [x]PPI []H2 filomena []Sucralfate []Not indicated Bowel reg: Osmotic: [x]Miralax []Lactulose []Mag sulfate/citrate Stimulant: []Senna []Dulcolax Softener: []Docusate Lines: Patient Lines/Drains/Airways Status Active LDAs Name Placement date Placement time Site Days CVC Triple Lumen 09/14/25 Left Internal jugular 09/14/252036 Internal jugular less than 1 Tubes: IUC (Ni) Double-lumen (Active) $ New ni Inserted? Yes 09/14/252029 Status Trail Drainage 09/15/25 0800 Collection Container Standard drainage bag 09/15/25 0800 Securement Method StatLock 09/15/25 08 Indication for IUC continuation Require accurate, continuous UOP measuring in critically ill 09/15/25 0800 Output (mL) 50 mL 09/15/25 1000 PT recs: OT recs: STEEL ERECTING PUSHER recs: I spent a total of 40 minutes of critical care time caring for this patient with septic shock, including direct patient contact, management of life support systems review of data (i.e.: imaging and lab), discussion with team members and consultants, and this time excludes time spent on procedures. Critical care was necessary to treat and prevent life-threatening deterioration from these conditions and requires high complexity decision making for assessment and support including: Hemodynamic and volume assessment with volume resuscitation Frequent vasoactive agent adjustments Assessment and treatment of complex metabolic derangement Frequent evaluation of patient's response to treatment and titration of therapy Application of advanced monitoring technologies Extensive interpretation of multiple databases and records Development of treatment plan with patient or surrogate Monty Mahan MD, PhD Pulmonary and Critical Care 10:25 AM, 09/15/2025 [1] Allergies Allergen Reactions Aleve [Naproxen Sodium] Cristina [Fexofenadine] * Keshav Castro - 09/15/2025 8:56 AM EDT [facility] Medical Nutrition Therapy Reason(s) for Completion: Nutrition Services Protocol Diet Order: : Diet/Nutrition Orders Diet NPO Frequency: Effective Now Number of Occurrences: Until Specified Pertinent Information: Laura Mallory is an 65 y.o. female with a PMHx of HFimpEF (EF 55-60%) 2/2 Tak[place]ubo cardiomyopathy, non-obstructive CAD, COPD (baseline RA), GERD, OA, anxiety, chronic back pain presenting as direct transfer from [facility] with septic shock. Malnutrition Status Pt meets criteria for Severe protein-calorie malnutrition based on ASPEN/AND malnutrition diagnostic characteristics. Context: Acute illness Energy Intake: less than or equal to 50% of estimated energy req. for greater than or equal to 5 days Unintended Weight Loss: Greater than 7.5% in 3 months Body Fat Wasting: Mild to moderate depletion present in triceps Muscle Wasting: Mild to moderate depletion present in temples Nutrition Interventions/POC: Recommend STEEL ERECTING PUSHER evaluation and diet advancement when medically feasible Attending/care team contacted for notification of malnutrition status: Yes Pt is on LOS # 1. Visited pt at bedside. Pt on NPO diet. Per pt, UBW around 250 lb. Pt reported noticing a decrease in appetite in April when she start feeling down and depressed . Stated only having1 meal a day with milk since 05/18. Per pt, experiencing N/V/D within the last month, along with constipation that comes and goes . Pt states chewing and swallowing difficulty with foods like steak and hard cooked chicken. Last BM 09/08 - self reported. Levo support. Glucose 105-125 mg/dL x 24 hours. Problem List[1] Past Medical History: Diagnosis Date Acute non-ST segment elevation myocardial infarction ([facility]) 02/26/2023 Anxiety Atherosclerosis of coronary artery without angina pectoris 02/26/2023 COPD (chronic obstructive pulmonary disease) ([facility]) Heart failure with improved ejection fraction (HFimpEF) ([facility]) Stress-induced cardiomyopathy 02/26/2023 Scheduled Meds: aspirin 81 mg Oral Daily 0900 atorvastatin 40 mg Oral Daily 0900 [Held by provider] carvediloL 3.125 mg Oral BID [Held by provider] celecoxib 100 mg Oral BID DULoxetine 60 mg Oral Daily 0900 [Held by provider] furosemide 40 mg Oral BID [Held by provider] gabapentin 100 mg Oral TID heparin 5,000 Units Subcutaneous 3 times per day umeclidinium-vilanteroL 1 puff Inhalation RT Daily And mometasone 220 mcg/puff 1 puff Inhalation RT Daily mupirocin 1 g Topical BID pantoprazole 40 mg Oral DAILY 0600 piperacillin-tazobactam (ZOSYN) IV extended interval 4.5 g Intravenous Q8H polyethylene glycol 17 g Oral Daily 0900 potassium chloride (KCl) 20 mEq Intravenous Q1HRS [Held by provider] sacubitriL-valsartan 1 tablet Oral BID senna 1 tablet Oral Nightly (2100) [Held by provider] spironolactone 25 mg Oral BID topiramate 100 mg Oral Daily 0900 topiramate 150 mg Oral Nightly (2100) Continuous Infusions: norepinephrine 15 mcg/min (09/15/25 0659) PRN Meds:acetaminophen, hydrOXYzine HCL, ICU electrolyte replacement protocol AND Initiate electrolyte replacement protocol, vancomycin intermittent/pulse dosing PLACEHOLDER ORDER Pertinent Labs: Lab Results Component Value Date CREATININE 1.30 09/15/2025 BUN 24 09/15/2025 NA 134 09/15/2025 K 3.5 09/15/2025 CL 103 09/15/2025 CO2 19 (L) 09/15/2025 Lab Results Component Value Date CALCIUM 7.7 (L) 09/15/2025 PHOS 3.7 09/15/2025 Lab Results Component Value Date MG 4.0 (H) 09/15/2025 Lab Results Component Value Date GLUCOSE 105 (H) 09/15/2025 Component Value Date/Time POCGMD 150 (H) 05/27/2025 2334 POCGMD 81 05/27/2025 1314 POCGMD 124 (H) 05/26/2025 1225 POCGMD 106 (H) 05/26/2025 0847 Lab Results Component Value Date WBC 40.7 (H) 09/15/2025 Lab Results Component Value Date ALBUMIN 2.9 (L) 09/15/2025 ALBUMIN 2.9 (L) 09/15/2025 No results found for: CRP Lab Results Component Value Date TRIG 96 09/15/2025 TRIG 96 09/15/2025 Temp (24hrs), Av.8 ??F (36.6 ??C), Min:97.2 ??F (36.2 ??C), Max:98.9 ??F (37.2 ??C) Skin Integrity: Intact GI: last BM 09/08 - self reported Potential Nutrition Related Factor(s): Nausea/Vomiting, Chewing/Swallowing Difficulty, Diarrhea/Constipation, and Appetite Change per pt report Food Insecurity/Social needs that may impact access to food: Within the past 12 months, you worried that your food would run out before you got the money to buymore. Never true Within the past 12 months, the food you bought just didn't last and you didn't have money to get more. Never true Food Allergies/Intolerances: [facility] Cultural Requests: None noted 65 y.o. Female Ht Readings from Last 1 Encounters: 09/14/25 5' 5 (1.651 m) Admit wt 232 lb 5.8 oz: 105.5 kg Wt Readings from Last 1 Encounters: 09/14/25 (!) 232 lb 5.8 oz (105.4 kg) Body mass index is 38.67 kg/m??. BMI Class: Class 2 (35.00 - 39.99) BMI [place] Body Weight: 125 lb, 56.8 kg (+/- 10%) Weight History: Wt Readings from Last 5 Encounters: 09/14/25 (!) 232 lb 5.8 oz (105.4 kg) 05/27/25 (!) 270 lb 4.5 oz (122.6 kg) 10/14/17 (!) 311 lb (141.1 kg) Care Everywhere Weight 111 kg (245 lb 9.6 oz) 07/14/2025 11:04 AM EDT Weight 115 kg (253 lb) 06/30/2025 9:56 AM EDT Weight 122 kg (268 lb 9.6 oz) 05/20/2025 3:11 PM EDT Weight 132 kg (290 lb) 11/04/2024 9:57 AM EST Weight Change: 14% weight loss in 3 months, 20% weight loss in 10 months Estimated Nutrition Needs: Needs based on: 105.4 kg - current weight Kcals/day: 9338-7922 (14-18 kcal/kg) Protein g/day: 85-114 (1.5-2.0 g/ 56.8 kg IBW) Carbohydrate g/day: not restricted Fluid ml/day: per MD Nutrition Related Diagnosis: Nutrition Diagnosis: Severe malnutrition Related To: Acute illness As Evidenced By: less than or equal to 50% of estimated energy req. for greater than or equal to 5 days and unintended weight loss greater than 7.5% in 3 months Recommended Interventions: Advance diet as tolerated - Monitor PO Intake/Tolerance Goals: Total energy intake improved as evidenced by PO intake at least 50-75% of meals/supplements/snacks within 3-5 days Nutrition Discharge Planning: Discharge plan of care for nutrition ongoing pending clinical course. Follow up: per policy while inpatient. Recommendation(s) to provider: Consider ordering STEEL ERECTING PUSHER evaluation for reported chewing/swallowing difficulties. STEEL ERECTING PUSHER evaluation before diet advancement. When diet advanced add ONS BID. Continue to monitor diet changes, nutrition related lab values and weights. Keshav Castro - Cafeteria Team Leader [1] Patient Active Problem List Diagnosis Mastocytosis Septic shock, resolved Coronary artery disease involving [place] coronary artery of [place] heart without angina pectoris Chronic anxiety Chronic diastolic (congestive) heart failure ([facility]) Gastroesophageal reflux disease without esophagitis Morbid obesity ([facility]) Pneumonia of both lower lobes due to infectious organism Elevated LFTs Simple chronic bronchitis ([facility]) APARNA (obstructive sleep apnea) Acute respiratory failure with hypoxia ([facility]) Acute metabolic encephalopathy HFimpEF Opioid-induced constipation Chronic back+knee pain with R-sided sciatica Cosigned by Shruthi Pierce RD at 09/15/2025 1:36 PM EDT Associated attestation - Shruthi Pierce RD - 09/15/2025 1:36 PM EDT I agree with nutrition assessment and recommendations from Cafeteria Team Leader. Pt met criteria for Severe Malnutrition, please minimize time needed for NPO, recommend STEEL ERECTING PUSHER eval before diet advancement. Will continue to follow. Nohemy Pierce MS, RD, LD, [facility] Clinical Dietitian Contact via Secure Epic Chat documented in this encounter H&P Notes * Lizet Hair MD - 09/17/2025 4:54 PM EDT [facility] Internal Medicine - History and Physical Medicine Transfer Acceptance Chief Concern weakness History of Present Illness Laura Mallory is a 65 y.o. female with a PMH significant for HFimpEF (EF 55-60%) 2/2 Takotsubo cardiomyopathy, non-obstructive CAD, COPD (baseline RA), GERD, OA, anxiety, chronic back pain presenting as direct transfer from [facility] with septic shock from E. Coli bacteremia likely from UTI or possible hepatic abscesses source. Pancreatitis and cholangitis also considered. Admitted to the MICU on 09/15. Patient accepted to bump out to medicine floor on 09/17. Had been off pressors for over 24 hr. Patient seen at bedside by Green Team. She was accompanied by her . She is feeling a bit better. Feels a bit short of breath in bed on baseline room air. Patient's goal is to get well enough to go home and not have to come back to the hospital again. Review of Systems Review of Systems Cardiovascular: Negative for chest pain. Gastrointestinal: Negative for abdominal pain. Musculoskeletal: Negative for back pain. Past Medical and 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 Lives with Has food insecurity Per previous documentation, quit smoking 2 ppd in 2004 Past Surgical History: Procedure Laterality Date SECTION CHOLECYSTECTOMY HYSTERECTOMY No family history on file. 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[1] Physical Exam Temp: [97.3 ??F (36.3 ??C)-99.6 ??F (37.6 ??C)] 97.3 ??F (36.3 ??C) Heart Rate: [69-91] 81 Resp: [12-24] 17 BP: (89-147)/(40-94) 93/40 Physical Exam HENT: Head: Normocephalic and atraumatic. Eyes: General: No scleral icterus. Cardiovascular: Rate and Rhythm: Normal rate and regular rhythm. Heart sounds: No murmur heard. No friction rub. No gallop. Pulmonary: Effort: No respiratory distress. Breath sounds: No stridor. No wheezing. Abdominal: General: Bowel sounds are normal. There is no distension. Tenderness: There is no abdominal tenderness. Musculoskeletal: Right lower leg: Edema present. Left lower leg: Edema present. Skin: Findings: No rash. Neurological: General: No focal deficit present. Mental Status: She is alert. Psychiatric: Mood and Affect: Mood normal. Behavior: Behavior normal. Diagnostic Studies I have personally reviewed labs. K 3.3, phos 1.6 WBC 16.9 from I have reviewed the following imaging reports: see below MRI Cholangiopancreatography Result Date: 09/16/2025 IMPRESSION: 1. Normal caliber bile ducts, post cholecystectomy, without filling defects. 2. Multiple small scattered foci of T2 hyperintensity in segment 7 and 6 of the right liver. These are nonspecific, but concerning for areas of inflammation/early abscess formation. Cholangitis is a possible etiology. Report Verified by: Rob Whitley MD at 09/16/2025 6:57 AM EDT X-ray Portable Chest Result Date: 09/15/2025 IMPRESSION: Right IJ central venous catheter tip overlies the SVC. No pneumothorax. Report Verifiedby: Pritesh Romero DO at 09/15/2025 5:35 PM EDT US Abdomen Complete Result Date: 09/15/2025 IMPRESSION: Normal sonographic appearance of the liver and biliary tree. Report Verified by: Rob Whitley MD at 09/15/2025 2:38 PM EDT X-ray Portable Chest Result Date: 09/14/2025 IMPRESSION: 1. Left IJ approach CVC tip projects over the SVC. No evidence of pneumothorax. 2. Small bilateral pleural effusions with overlying bibasilar opacities, left greater than right. Report Verified by: Doroteo Nguyen DO at 09/14/2025 10:18 PM EDT Assessment & Plan Laura Mallory is a 65 y.o. 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 [facility] Assessment & Plan Sepsis due to Escherichia coli with acute organ dysfunction (CMS-HCC) Septic shock, resolved OSH workup showed elevated lactate with associated hypotension, iso leukocytosis upto 45 with neutrophilic shift, overall concerning for septic shock. Confirmed E coli positive urine and blood cultures from OSH. Also considering cholangitis vs pancreatitis. Not concerned for cardiogenic shock givenpreserved EF on formal TTE. Not concerned for [...] data from the outside hospital, MICU called [facility] but was not able to get info -repeat blood cx Cystitis Likely cause of urosepsis from E. Coli UTI. -ID consulted, wants true original culture data from outside hospital, try to call again tomorrow Acute pancreatitis Elevated LFTs #C/f hepatic abscesses #C/f cholangitis Patient p/w acute abdominal pain and back pain, somewhat radiating, lipase ~3998 at OSH. Got fluid resuscitation per sepsis fluids. Although CT A/P non-con at OSH was reported normal, still meets criteria for acute pancreatitis. 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 With elevated bilirubin, leukocytosis and RUQ pain some c/f cholangitis as well. Normal triglycerides. Cholestatic pattern of injury. Lipase downtrended now 462. LFTs downtrending. - GI following appreciate recs, MRCP w/o ductal dilation, no endoscopic plans, possible had passed stone +/- c/f hepatic abscess as below - s/p maintenance IVF: additional 1L normosol over 10 hr today HFimpEF 2/2 Takotsubo cardiomyopathy. Not in acute exacerbation. TTE 09/15/25 w/improved EF 60%. - Hold GDMT: Entresto 24-26 BID. Spironolactone (unsure if she has been taking it) -Restart Coreg 3.125 BID tonight - Hold home lasix FER (acute kidney injury) (CMS-HCC) (Resolved: 09/17/2025) Likely from septic shock/urosepsis. -continue to monitor renal panel Severe protein-calorie malnutrition (CMS-HCC) Meets criteria per RD assessment. Difficulty with poor appetite, nausea/vomiting, swallowing difficulty with meats. Food insecurity noted. - tolerating diet Coronary artery disease involving [place] coronary artery of [place] heart without angina pectoris No acute concerns. - Continue ASA + statin Normocytic anemia Baseline Hg around 9-10. All cell lines decreased during hospitalization with fluids. -continue to monitor Chronic anxiety -continue home duloxetine and atarax Gastroesophageal reflux disease without esophagitis Home regimen: omeprazole -Continue TI pantoprazole 40 COPD (chronic obstructive pulmonary disease) ([facility]) On RA at baseline, vitally stable since admission. Not concerned for COPD exacerbation. Desatted to86, required 2L NC overnight. - home LAMA, LABA, ICS APARNA (obstructive sleep apnea) Suspected, noted in chart, not on CPAP/BiPAP. -outpatient sleep study Chronic back+knee pain with R-sided sciatica -holding home celecoxib in hospitall, could resume when BP more stable -continue home duloxetine and gabapentin -Tylenol PRN Migraine -continue home topamax Tremor Baseline, chronic. -continue home Topamax Prior to Admission Med Status: Medications confirmed and reconciled by MICU resident Dr. Nieves Hair admitted patient DVT Prophylaxis: subcutaneous heparin (prophylaxis) Code Status: Full Code LIZET HAIR MD PGY-2 Internal Medicine Resident 09/17/2025 4:54 PM [1] 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 Tobacco Use Smoking status: Former Types: Cigarettes Smokeless tobacco: Never Tobacco comments: Former 2 PPD cigarette smoker, quit ~2004 Substance Use Topics Alcohol use: No Drug use: No Cosigned by Marisol Lovett MD at 09/18/2025 6:05 AM EDT Associated attestation - Marisol Lovett MD - 09/18/2025 6:05 AM EDT Hospital Medicine Attending Supervision Note [facility] // [facility] Laura Mallory was seen 09/17/25 on rounds with the resident physician. I personally interviewed and examined the patient. I reviewed the documentation by the resident and agree as documented unless otherwise stated below. Reason for today's visit: Sepsis due to Escherichia coli with acute organ dysfunction ([facility]) Supplemental History / ROS / Exam: Patient initially presented to [facility] on 09/14, transferred to [facility] MICU due to severe hypotension with pressor requirement. WBC >45K, lactate 6, creatinine, LFTs, and lipase all elevated on admission. Work-up notable for EColi growth from both blood and urine (at [facility], cultures here all negative). Of note, shortly prior to admission patient found to have cystitis (CT with bladder wall thickening) and prescribed outpatient Macrobid, returned to hospital when symptoms did not improve. Patient with prior similar admission 2/2 suspected cholangitis so MRCP obtained. Notable for normalcaliber bile ducts without evidence of cholangitis but with multiple small hyperintense foci - unable to rule out inflammation vs abscess formation. At time of transfer from MICU, patient on Zosyn. Off of pressors but not yet resumed on any GDMT. Has been eating well and not currently with any residual localizing symptoms aside from weakness/fatigue Exam with diffuse 2+ anasarca Lungs clear, SpO2 >95% flat on back on RA RRR no MRG Abdomen soft and non-tender Assessment & Plan Laura Mallory is a 65 y.o. female with a history of HFimpEF, CAD, COPD, GERD, OA, anxiety, and chronic pain who initially presented to [facility] with malaise and back/flank pain, found to be inseptic shock and transferred to [facility] for further care. Septic shock, EColi bacteremia, cystitis, possible hepatic abscess formation: CT from OSH with reported bladder wall thickening (images pushed for our radiology to read), BCx and UCx from OSH growingEColi. Unclear if liver findings are related to infection (could be ischemic injuries from hypoperfusion) but unable to rule out sequelae of cholangitis. Continue Zosyn. Will need to call [facility] tomorrow to follow-up on EColi susceptibilities. ID consult to assist with duration of ABX. Liver lesions likely too small for definitive IR biopsy. Pancreatitis: Met criteria based on symptoms and lipase elevation. Has been intermittently receiving IVF. Hold off on further IVF for now - anasarca developing. No current pain reported and has been tolerating PO. HFimpEF: Held GDMT in the setting of shock. BP remains too borderline for entresto. Can resume minimal dose coreg 3.125mg this PM if SBP remains >105, HR >60. LFT elevation: Improving. Unclear if relate to bile stone that has now passed or 2/2 shock state. Trend Medical Decision Making: Acute or chronic illness that may pose threat to life or function Independent interpretation of image(s)/tracing(s): ECG Labs reviewed (1 pt each): CBC, Renal, LFTs Review of notes from a different specialty or different practice: ICU The HPI, ROS, physical exam, test results, and assessment & plan were reviewed and copied forward (with edits) from a note written by myself or a same-practice partner on 09/16/25. I have updatedthe history, physical exam, data, assessment, and plan of the note so that it reflects my evaluation and management of the patient on 09/17/2025. Marisol Lovett MD PhD Attending Physician Division of [facility] Medicine Department of Internal Medicine 4:49 PM, 09/17/2025 * Willem Shin, - 09/14/2025 9:46 PM EDT MICU Attending Admit Note I independently saw and examined this patient on 09/14/2025. The x-rays and labs were reviewed. Thecase was discussed in detail with the MICU house staff and a plan for medical care arranged. This is a 65 yo female who presented 09/14/2025 in transfer from an OSH with concerns for Cholangitis. She presented to the OSH due to confusion and not feeling well . While at the OSH she became hypotensive and was given IV fluid resuscitation, after which a CVL was placed and norepi was started.Initial labs were significant for a pH of 7.17 with lactate of 6.4 and WBC of 45.7K. Was also foundto have an elevated Creat up to 2.2(baseline 0.9), T bili of 6 and Lipase of 3,998. She has a hx ofcholangitis and it now appeared this was a recurrence. She was then given Vanc, Cefepime, Flagyl and transferred for further workup and management. 09/14/2025 - Admitted to the MICU - arrived on Norepi Empiric Zosyn/Vanc PMHx --Hx of Non obstructive CAD --Hyperlipidemia --Moderate persistent asthma --APARNA --Hyperglycemia --Generalized Anxiety Allergies Allergies[1] BP 94/53 (BP Location: Right upper arm, Patient Position: Lying, BP Cuff Size: Large) Pulse 73 Temp 97.2 ??F (36.2 ??C) (Oral) Resp 14 Ht 5' 5 (1.651 m) Wt (!) 232 lb 5.8 oz (105.4 kg) SpO2 94% BMI 38.67 kg/m?? HEENT - PERRL, conjugate gaze. CV - RRR Norepi 7 mcg/min (0.07 mcg/kg/min) Chest/Lungs - Bilateral symmetrical respiratory excursions noted. RA O2 Abd - soft very mild tenderness to deep palpation in RUQ - ni cath in place Ext - no deformity or edema. Neuro - Awake, alert, confused Labs/Xrays reviewed. Outside images reviewed in [employer] - report currently unavailable. Assessment and Plan --Septic Shock with concerns for cholangitis with pancreatitis. Noted T bili and Lipase improved from OSH raising question of a possible passed stone / choledocholithiasis. Also with concern for cystitis / complicated UTI IV fluid resuscitation (30 ml/kg) Norepi titrated to MAP > 65 Blood cx's Urine cx. RUQ US Triglycerides Empiric Vanc/Zosyn NPO Consult GI --Hx of Non obstructing CAD Holding Carvedilol and Entresto ASA/Statin --Hx of HTN --Hx of Moderate Persistent Asthma Symbicort BID Albuterol PRN --Suspected APARNA --Acute Kidney Injury - improving Follow UO/Creat closely Adjust meds for reduced GFR --Normocytic Anemia without evidence of acute blood loss --Chronic pain syndrome Holding Tramadol, Celecoxib, Topiramate ICU Checklist DVT/Anticoagulation: {SQ UFH GI Ulcer Prophylaxis: H2 Filomena - preferred Nutrition: NPO LDA: Patient Lines/Drains/Airways Status Active LDAs Name Placement date Placement time Site Days CVC Triple Lumen 09/14/25 Left Internal jugular 09/14/252036 Internal jugular less than 1 Invasive Lines: Continue current access Ni Cath: Present Bowel Integrity: PEG/Laxatives ordered Rectal Tube: None Code Status: Full Code Next of kin / POA update: To be updated by house staff Medical Readiness for Discharge: 5+ Days I spent a total of 60 minutes of critical care time caring for this patient with Septic Shock, pancreatitis, cholangitis, including direct patient contact, management of life support systems review of data (i.e.: imaging and lab), discussion with team members and this time excludes time spent on procedures Willem Shin DO, 9:46 PM, 09/14/2025 [1] Allergies Allergen Reactions Aleve [Naproxen Sodium] Cristina [Fexofenadine] * Nieves Bryant MD - 09/14/2025 8:44 PM EDT [facility] History & Physical Patient: Laura Mallory 09/14/2025 8:44 PM Chief Complaint: Septic shock History of Present Illness Patient is a 65 y.o. 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 Patient was seen in the OSH ED several days ago where she c/o constipation and no BM over the last [address] A/P showed bladder wall thickening , otherwise normal, some nitrites noted on UA so started antibiotics and sent home. says after going home she started feeling worse, now having back pain, abdominal pain worse from before. No cough, congestion of fevers. Patient presented to OSHwith spouse earlier today, c/o increasing generalized weakness and R sided flank pain. Pressures noted to be low, down to 63/34, sustained systolics in 70s. With concerns for septic shock started on Vanc, Cefepime, Flagyl. Started Levophed requiring upto 14U, given 1L LR, 1L NS for IVFresuscitation. With increasing Levo requirements plan was to transfer to for further care Lab workup at OSH significant for WBC 45.7 with neutrophilic shift, Hgb 11, PLT 407, AG elevated to21.8, lactate 6.4, BUN 20, Cr 2.2 (recently 0.9 on prior workup), otherwise electrolytes wnl. AST 403, ALT 228, ALP 796, Troponins flat. Lipase elevated to 3998, TSH wnl. L IJ central line placed. Patient arrived in relatively stable condition with levophed running. Requirements progressively coming down from 14, gradually to 5. Satting well on RA. Patient endorses lethargy but able to answer questions appropriately, remembering conversations and earlier events. Says she had abdominal and back pain that is now improved since transfer. No other active symptoms reported. Bedside echo showed azucena apsible IVC and relatively intact EF. Past Medical History Past Medical History: Diagnosis Date Acute non-ST segment elevation myocardial infarction ([facility]) 02/26/2023 Anxiety Atherosclerosis of coronary artery without angina pectoris 02/26/2023 COPD (chronic obstructive pulmonary disease) ([facility]) Heart failure with improved ejection fraction (HFimpEF) ([facility]) Stress-induced cardiomyopathy 02/26/2023 Past Surgical History Past Surgical History: Procedure Laterality Date SECTION CHOLECYSTECTOMY HYSTERECTOMY Home Medications Home Medications Medication Sig Taking? Last [...] tablet (100 mg total) by mouth daily. traMADoL (ULTRAM) 50 mg tablet Take 1 tablet (50 mg total) by mouth every 8 hours as needed for Pain. TRELEGY ELLIPTA 100-62.5-25 mcg DsDv Inhale 1 puff into the lungs daily. Allergies Allergies[1] 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 Tobacco Use Smoking status: Former Types: Cigarettes Smokeless tobacco: Never Tobacco comments: Former 2 PPD cigarette smoker, quit ~2004 Substance Use Topics Alcohol use: No Living situation: Lives with spouse Social/Occupation: Not currently working Tobacco: Does not smoke Alcohol: Does not drink Illicit Drugs: Does not use Family History No family history on file. Physical Exam Gen: Vitals noted. No acute distress. Large body habitus Head: Atraumatic, Normocephalic Cardiac: HRRR, no murmur, +S1/S2 Pulmonary: CTAB, no wheezes, rales or rhonchi, equal chest expansion Abdomen: soft, some generalized tenderness, no guarding. No masses or HSM, mildly distended MSK: ROM intact, no joint swelling noted Extremities: no BLE edema, nontender calf, no cyanosis or clubbing Skin: Cold sin but palpable pulses Neuro: moves all extremities, no gross focal neuro deficits, slow to respond but answering appropriately Laboratory Values, Imaging, & Microbiology Lab Results Component Value Date GLUCOSE 81 05/28/2025 BUN 12 05/28/2025 CREATININE 0.71 05/28/2025 K 4.3 05/28/2025 NA 139 05/28/2025 CL 108 05/28/2025 CALCIUM 8.3 (L) 05/28/2025 Lab Results Component Value Date MG 2.0 05/28/2025 Lab Results Component Value Date PHOS 2.7 05/28/2025 Lab Results Component Value Date ALKPHOS 231 (H) 05/28/2025 ALT 137 (H) 05/28/2025 AST 71 (H) 05/28/2025 BILITOT 0.7 05/28/2025 ALBUMIN 3.2 (L) 05/28/2025 ALBUMIN 3.2 (L) 05/28/2025 BILIDIRECT 0.08 05/28/2025 PROT 6.3 (L) 05/28/2025 Lab Results Component Value Date WBC 9.0 05/28/2025 HGB 9.2 (L) 05/28/2025 HCT 27.9 (L) 05/28/2025 MCV 92.6 05/28/2025 PLT 235 05/28/2025 No results found for: ANTIXAF No results found for: PTT Lab Results Component Value Date INR 1.1 05/26/2025 INR 1.1 05/25/2025 PROTIME 14.6 05/26/2025 PROTIME 14.8 05/25/2025 No results found for: FIBRINOGEN No results found for: PHVEN , PCO2 , PO2VEN , RII8BTJ , BEVEN , HDM5KHU , F5HYUKJD Assessment & Plan: Patient is a 65 y.o. 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 Neurologic: #Acute metabolic encephalopathy Patient was initially lethargic at OSH but since then has improved. Likely 2/2 ongoing shock - CTM #Chronic back pain #Migraines - Will hold home gabapentin, topiramate and tramadol iso hypotension and FER, restart when able - Cont home Celecoxib - Cont home Duloxetine - Tylenol PRN Pulmonary: #COPD On RA at baseline, vitally stable since admission not requiring O2 supplementation - Continue home inhalers Cardiovascular: #Septic Shock OSH workup showed elevated lactate with associated hypotension, iso leukocytosis upto 45 with neutrophilic shift, overall concerning for septic shock. Given 2L IVFs, started on Vanc, Cefepime, Flagyl. Patient has had similar admission in May, then sepsis was attributable to cholangitis vs pneumonia but no growth on cultures or other definite source was noted. Currently source of infection likelyUTI vs cholangitis. CT chest and A/P done at OSH were reported to be normal. 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 Troponin at OSH was flat, no chest pain, overall c/f cardiogenic shock is low. Due to body habitus unsure regarding exact volume status but not overtly volume overloaded. - Troponin, BNP, EKG - Continue ASA + statin - Formal TTE in AM - Hold GDMT: - Entresto 24-26 BID - Coreg 3.125 BID - Spironolactone (unsure if she has been taking it) - Not on Jardiance at home - Hold home lasix for now Gastrointestinal: #Pancreatitis #Transaminitis Patient p/w acute abdominal pain and back pain, somewhat radiating, lipase ~[address] A/P non-con at OSH was reported normal, still meets criteria for acute pancreatitis. 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 With elevated bilirubin, leukocytosis and RUQ pain some c/f cholangitis as well. - NPO for now, advance diet in AM as toelrated - RUQ US - IVFs as above - Request imaging to be pushed from OSH - Consider GI consult in AM for possible further eval with ERCP - Lipase, hepatic panel ordered #Constipation CT A/P at OSH did not show any evidence of obstruction - CTM - Bowel regimen Miralax, Senna Renal: #UTI, c/f Urosepsis UA from recent ED visit at OSH positive for nitrites, was given Nitrofurantoin but condition worsened despite use of abx. Had enterococcus susceptible to Vanc on previous cultures per chart review, no ESBL or MDRO documented - CT A/P not showing any abscess or c/f pyelonephritis, no stones - Abx as above - UA - Follow urine cx #FER Reportedly Cr was 0.9 during prior visit, noted to be elevated to 2.2 on presentation earlier. May be 2/2 hypoperfusion iso septic shock. No obstructive causes on CT A/P, maybe some component of pre-renal due to dehydration 2/2 poor Po intake as well. - Renal, Mg - IVFs as above - If does not improve then consider further workup with urine lytes Acid/Base: #AGMA Likely 2/2 lactic acid elevation iso ongoing shock as well as delayed clearance - Trend lactate - IVFs and abx as above Infectious Disease: Urosepsis, pancreatitis as above Workup: Blood cultures (09/14) pending Urine cultures (09/14) pending Abx: Vancomycin (started at OSH) 09/14 - present Cefepime at OSH 09/14 Flagyl at OSH 09/14 Zosyn 09/14 - present Endocrine: No acute concerns Hematology/Oncology: No acute concerns Psychiatry: #Anxiety - Cont home Atarax 25 BID PRN - Pain control as above Checklist: Fluids: 1L bolus Electrolytes: Replete PRN Nutrition: Diet/Nutrition Orders Diet NPO Frequency: Effective Now Number of Occurrences: Until Specified LDA: Patient Lines/Drains/Airways Status Active LDAs Name Placement date Placement time Site Days CVC Triple Lumen 09/14/25 Left Internal jugular 09/14/252036 Internal jugular less than 1 Telemetry: yes DVT PPx: SQH GI PPx: PPI Bowels: Senna + Miralax Restraints: No Lines: L IJ CVC, PIV Catheter: Ni Labs: reviewed PT/OT: consulted PT Recs: OT Recs: STEEL ERECTING PUSHER Recs: Disposition: MICU Code Status: Full Code NIEVES BRYANT MD 09/14/2025 8:44 PM [1] Allergies Allergen Reactions Aleve [Naproxen Sodium] Cristina [Fexofenadine] Cosigned by Willem Shin DO at 09/15/2025 2:39 AM EDT Associated attestation - Willem Shin DO - 09/15/2025 2:39 AM EDT I saw and evaluated the patient, and discussed with the resident. I concur with the residents documentation of Laura Mallory. Please see my note for additions/addendums. Willem Shin DO 2:38 AM, 09/15/2025 documented in this encounter Procedure Notes * Beatrice Espinal RN - 09/19/2025 4:48 PM EDTAssociated Order(s): Insert PICC line Laura Mallory is a 65 y.o. female patient. 1. Bacteremia Past Medical History: Diagnosis Date Acute non-ST segment elevation myocardial infarction ([facility]) 02/26/2023 Anxiety Atherosclerosis of coronary artery without angina pectoris 02/26/2023 COPD (chronic obstructive pulmonary disease) ([facility]) Heart failure with improved ejection fraction (HFimpEF) ([facility]) Stress-induced cardiomyopathy 02/26/2023 Blood pressure 116/68, pulse 78, temperature 97.8 ??F (36.6 ??C), temperature source Axillary, resp. rate 18, height 5' 5 (1.651 m), weight (!) 232 lb 5.8 oz (105.4 kg), SpO2 95%. Insert PICC line Date/Time: 09/19/2025 4:48 PM Performed by: Beatrice Espinal RN Authorized by: Marisol Lovett MD [place] Protocol: Verbal consent obtained?: Yes Written consent [...] time out verifies correct patient, procedure, equipment, account support manager and site/side marked as required: Preparation: Preparation: [...] Brachial. Guidewire removed post PICC placement: Yes Beatrice Espinal RN 09/19/2025 * Tru Benavides MD - 09/15/2025 2:18 PM EDTAssociated Order(s): Insert Arterial Line Laura Mallory is a 65 y.o. female patient. No diagnosis found. Past Medical History: Diagnosis Date Acute non-ST segment elevation myocardial infarction ([facility]) 02/26/2023 Anxiety Atherosclerosis of coronary artery without angina pectoris 02/26/2023 COPD (chronic obstructive pulmonary disease) ([facility]) Heart failure with improved ejection fraction (HFimpEF) ([facility]) Stress-induced cardiomyopathy 02/26/2023 Blood pressure 97/59, pulse 86, temperature 98 ??F (36.7 ??C), temperature source Axillary, resp. rate 28, height 5' 5 (1.651 m), weight (!) 232 lb 5.8 oz (105.4 kg), SpO2 98%. Insert Arterial Line Date/Time: 09/15/2025 2:18 PM Performed by: Tru Benavides MD Authorized by: Tru Benavides MD Consent: Consent obtained: Written Consent given by: Spouse Risks, benefits, and alternatives were discussed: yes Risks discussed: Bleeding, ischemia, pain, infection and repeat procedure [place] protocol: Patient identity confirmed: Verbally with patient, [...] Biopatch applied CMS: Normal Procedure completion: Tolerated Tru Benavides MD 09/15/2025 Cosigned by Monty Mahan MD at 09/15/2025 4:29 PM EDT Associated attestation - Monty Mahan MD - 09/15/2025 4:29 PM EDT I was available for assistance with procedure. Monty Mahan MD, PhD Pulmonary and Critical Care Medicine 09/15/2025 4:29 PM * RICKEY Auguste - 09/15/2025 1:50 PM EDTAssociated Order(s): Central Line Laura Mallory is a 65 y.o. female patient. No diagnosis found. Past Medical History: Diagnosis Date Acute non-ST segment elevation myocardial infarction ([facility]) 02/26/2023 Anxiety Atherosclerosis of coronary artery without angina pectoris 02/26/2023 COPD (chronic obstructive pulmonary disease) ([facility]) Heart failure with improved ejection fraction (HFimpEF) ([facility]) Stress-induced cardiomyopathy 02/26/2023 Blood pressure 97/59, pulse 86, temperature 98 ??F (36.7 ??C), temperature source Axillary, resp. rate 28, height 5' 5 (1.651 m), weight (!) 232 lb 5.8 oz (105.4 kg), SpO2 98%. Central Line Date/Time: 09/15/2025 1:49 PM Performed [...] to verify the correct patient, procedure, equipment, account support manager and site/side marked as required. Catheter type: [...] procedure chest x-ray ordered: yes Complications: none RICKEY AUGUSTE 09/15/2025 documented in this encounter Consult Notes * Beatrice Espinal RN - 09/19/2025 4:50 PM EDTAssociated Order(s): IP CONSULT TO PICC TEAM RUE PICC, 46/0, Brachial, BBRx1. RUE PICC is ready for immediate use. * Ryan Mclaughlin MD - 09/17/2025 4:57 PM EDTAssociated Order(s): IP CONSULT TO INFECTIOUS DISEASES Images from the original note were not included. Department of Infectious Diseases Consult Note 09/17/2025 Referring Physician: Marisol Lovett MD Patient's Name: Laura Mallory CSN: [id number] Reason for Consult iniguez sensitive Ecoli bacteremia at OSH, concern for liver abscess on imagining Assessment & Recommendations 65 year old female with past medical history of COPD, CAD, stress induced cardiomyopathy, HF, anxiety transferred from OSH with septic shock and iniguez susceptible E.coli bacteremia 2/2 UTI and imaging concerning for multiple liver abscesses on 09/14. Patient was in ICU and required pressors and was being treated with Zosyn, WBCs was 40 now down trending to 16.9 and the patient was discharged from the ICU 09/17 vitally stable and afebrile. Was seen by gastroenterology for abnormal liver enzymes and high lipase and underwent MRCP which was concerning for liver abscess. Urine culture 09/14 with no growth to date. # E.coli bacteremia, concern for liver abscess RECOMMENDATIONS: Please continue the use of Zosyn Please obtain blood cultures Please obtain abdominal US if OSH imaging reports unreachable Will continue to follow. Discussed and staffed with Dr. Hair. Recommendations as listed above are not finalized until attested by attending physician. Ryan Mclaughlin Infectious Diseases Fellow, PGY-4 [place] [phone] [place] [phone] HPI 65 year old female with past medical history of COPD, CAD, stress induced cardiomyopathy, HF, anxiety transferred from OSH with septic shock and iniguez susceptible E.coli bacteremia 2/2 UTI and imaging concerning for multiple liver abscesses on 09/14. Patient was in ICU and required pressors and was being treated with Zosyn, WBCs was 40 now down trending to 16.9 and the patient was discharged from the ICU 09/17 vitally stable and afebrile. Antimicrobials: Current outpatient medications (Only Antimicrobes) as of 09/14/2025 There are no current outpatient antimicrobe medications Hospital Meds (Antimicrobes Only) as of 09/14/2025 piperacillin-tazobactam (ZOSYN) 4.5 g in sodium chloride 0.9 % 100 mL [id number] Linked Group 1: Placed in Followed by Linked Group Review of Systems Negative except as mentioned in HPI. History Past medical Hx: Past Medical History: Diagnosis Date Acute non-ST segment elevation myocardial infarction ([facility]) 02/26/2023 Anxiety Atherosclerosis of coronary artery without angina pectoris 02/26/2023 COPD (chronic obstructive pulmonary disease) ([facility]) Heart failure with improved ejection fraction (HFimpEF) ([facility]) Stress-induced cardiomyopathy 02/26/2023 Social Hx: 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 Socioeconomic History Marital status: Spouse [...] Not Asked Seat Belt Not Asked 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 Narrative Not on file Social Drivers of Health Financial Resource Strain: [...] No Physically Abused: No Sexually Abused: No Housing Stability: Low Risk (09/14/2025) Housing Stability Vital Sign Unable to Pay for Housing in the Last Year: No Number of Times Moved in the Last Year: 0 Homeless in the Last Year: No Family Hx: No family history on file. Surgical Hx: Past Surgical History: Procedure Laterality Date SECTION CHOLECYSTECTOMY HYSTERECTOMY Allergies Allergies[1] Medications Current Facility-Administered Medications Medication acetaminophen (TYLENOL) tablet 650 mg albuterol (PROVENTIL) 2.5 mg /3 mL (0.083 %) nebulizer solution aluminum & magnesium hydroxide-simethicone (MYLANTA) suspension 15 mL aspirin EC tablet 81 mg [Held by provider] atorvastatin (LIPITOR) tablet 40 mg bisacodyL (DULCOLAX) suppository 10 mg carvediloL (COREG) tablet 3.125 mg DULoxetine (CYMBALTA) DR capsule 60 mg [Held by provider] furosemide (LASIX) tablet 40 mg gabapentin (NEURONTIN) capsule 100 mg heparin (porcine) injection 5,000 Units hydrOXYzine HCL (ATARAX) tablet 25 mg ICU ELECTROLYTE REPLACEMENT PROTOCOL umeclidinium-vilanteroL (ANORO ELLIPTA) 62.5-25 mcg/actuation powder for inhalation DsDv 1 puff And mometasone (ASMANEX) 220 mcg/ actuation (14) inhaler 1 puff mupirocin (BACTROBAN) 2 % ointment 1 g oxyCODONE (ROXICODONE) immediate release tablet 5 mg Or oxyCODONE (ROXICODONE) immediate release tablet 10 mg pantoprazole (PROTONIX) EC tablet 40 mg piperacillin-tazobactam (ZOSYN) 4.5 g in sodium chloride 0.9 % 100 mL [id number] polyethylene glycol (MIRALAX) packet 17 g [Held by provider] sacubitriL-valsartan (ENTRESTO) 24-26 mg tablet 1 tablet senna (SENOKOT) tablet 1 tablet [Held by provider] spironolactone (ALDACTONE) tablet 25 mg topiramate (TOPAMAX) tablet 100 mg topiramate (TOPAMAX) tablet 150 mg Vital Signs Temp: [97.3 ??F (36.3 ??C)-99.6 ??F (37.6 ??C)] 97.3 ??F (36.3 ??C) Heart Rate: [69-91] 81 Resp: [12-24] 17 BP: (89-147)/(40-94) 93/40 Intake/Output Summary (Last 24 hours) at 09/17/2025 1658 Last data filed at 09/17/2025 1520 Gross per 24 hour Intake 1831.05 ml Output 1160 ml Net 671.05 ml Physical Exam General: NAD. Heart: No audible murmur. Lung: no increased work of breathing. Abdomen: Soft, NT/ND. Extremities: No HUNG bilaterally. Skin: Warm and dry, no rash on exposed skin. Neuro: Alert and oriented x 3, no obvious focal deficit observed during general exam. Lines, Tubes and Drains Patient Lines/Drains/Airways Status Active Epidural Line / PICC Line / PIV Line / ART Line / Line / CVC Line Name Placement date Placement time Site Days Peripheral IV 09/14/25 Anterior;Proximal;Right Antecubital 09/14/252036 Antecubital 2 Peripheral IV 09/17/25 Anterior;Right Forearm 09/17/25 1311 Forearm less than 1 Patient Lines/Drains/Airways Status Active LDAs Name Placement date Placement time Site Days Peripheral IV 09/14/25 Anterior;Proximal;Right Antecubital 09/14/252036 Antecubital 2 Peripheral IV 09/17/25 Anterior;Right Forearm 09/17/25 1311 Forearm less than 1 Wound #1 Skin tear Arm Right 05/25/25 1900 -- 114 External Urinary Catheter 09/17/25 1300 09/17/25 1300 -- less than 1 Inactive LDAs Name Placement date Placement time Removal date Removal time Site Days [REMOVED] CVC Triple Lumen 09/14/25 Left Internal jugular 09/14/25203609/15/25 -- Internal jugular less than 1 [REMOVED] CVC Triple Lumen 09/15/25 Right Internal jugular 09/15/25 1350 09/17/25 1333 Internal jugular 1 [REMOVED] Peripheral IV 09/14/25 Anterior;Left Forearm 09/14/25 2037 09/17/25 1305 Forearm 2 [REMOVED] IUC ([place]) Double-lumen 09/14/25 2100 09/17/25 1305 Double-lumen 2 [REMOVED] Arterial Line 09/15/25 Left Radial 09/15/25 1404 09/16/25 0945 Radial less than 1 Laboratory Data Recent Labs 09/15/25 0455 09/16/25 0344 09/17/25 0627 WBC 40.7* 24.7* 16.9* HGB 9.9* 8.1* 8.4* HCT 30.3* 25.3* 25.9* PLT 343 283 282 Recent Labs 09/15/255 09/16/25 0344 09/17/25 0627 NA 134 135 139 K 3.5 3.5 3.3* CL 103 106 106 CO2 19* 20* 23 BUN 24 18 10 CREATININE 1.30 0.75 0.56* GLUCOSE 105* 89 95 PHOS 3.7 2.8 1.6* Lab Results Component Value Date ALKPHOS 391 (H) 09/17/2025 ALT 63 (H) 09/17/2025 AST 63 (H) 09/17/2025 BILITOT 0.8 09/17/2025 ALBUMIN 2.5 (L) 09/17/2025 ALBUMIN 2.5 (L) 09/17/2025 BILIDIRECT 0.34 09/17/2025 PROT 5.4 (L) 09/17/2025 No results found for: CKTOTAL , ESR , CRP Microbiology Microbiology Results Date and Time Order Name Sensitivity Status Organisms Specimen ID Source 09/17/2025 4:37 PM Blood culture-Peripheral (Blood) In process [id number] Peripheral 09/17/2025 4:37 PM Blood culture-Peripheral (Blood) In process [id number] Peripheral 09/15/2025 4:55 AM MRSA/Staph aureus DNA- Diagnostic Testing for Pneumonia (Nares Swab) Final [id number] Nares 09/14/2025 9:13 PM Urine culture Preliminary [id number] Urine [1] Allergies Allergen Reactions Aleve [Naproxen Sodium] Cristina [Fexofenadine] Cosigned by Kp Hair MD at 09/17/2025 7:42 PM EDT Associated attestation - Kp Hair MD - 09/17/2025 7:42 PM EDT I saw and examined the patient. I discussed with the fellow and agree with Dr. Mclaughlin's findings andplan as documented in the note. 65 year old female with past medical history of COPD, CAD, stress induced cardiomyopathy, HF, anxiety,hysterectomy, cholecystectomy, GERD, OA, chronic back pain On presentation to outside hospital he was found to have an elevated lipase > 3000 with elevatedLFTs in a cholestatic pattern and T bili of 3.3. CT A/P showed bladder wall thickening, otherwise normal She was transferred from OSH with septic shock and iniguez susceptible E.coli bacteremia 2/2 UTI and imaging concerning for multiple liver abscesses on 09/14. Patient was in ICU and required pressors andwas being treated with Zosyn, Micro from OSH - Blood culture from [facility] collected 09/14/25: E.coli (preliminary as of 09/16) - Urine culture from [facility] collected 09/12/25: E.coli >100,000 CFU. Iniguez susceptible. - Urine culture [facility] 09/14: NGTD Had leucocytosis WBCs was 40 now down trending to 16.9 . Was seen by gastroenterology for abnormal liver enzymes and high lipase and underwent MRCP 09/16 which showed multiple small scattered foci of T2 hyperintensity in segment 7 and 6 of the right liver.These are nonspecific, but concerning for areas of inflammation/early abscess formation.unlikely rafita percutaneously or endoscopically drained, largest 1.5cm. Cholangitis is a possible etiology. This morning was transferred from the ICU 09/17 vitally stable and afebrile. E. Coli UTI /Bacteremia Continue IV Zosyn given concern for hepatic abscesses Patient says has history of recurrent UTI's No obvious stones seen on CT Would need atleast 2 weeks of treatment for bacteremia Please check ESR and CRP Hepatic abscesses Too small to be drained Treat with IV Zosyn for now Plan to treat for 4 weeks GI concerned for acute pancreatitis /elevated LFT's,lipase was > 3000 with elevated LFTs in a cholestatic pattern, on presentation lipase 462, LFTs and T bili are trending down and there has been significant improvement in leukocytosis - reflective of possible passed stone/resolved obstructive process RUQ US with normal sonographic appearance of the liver and biliary tree Thanks for consult ID will continue to follow with you KP HAIR MD, Team 1 ID consults attending * Blossom Eastman CCC-STEEL ERECTING PUSHER - 09/16/2025 12:03 PM EDT Speech Language Pathology Clinical Swallow Assessment Name: Laura Mallory : 1960 Attending Physician: Monty Mahan MD Admission Diagnosis: Septic shock Ascending cholangitis Date: 09/16/2025 Reviewed Pertinent hospital course: Yes Hospital Course STEEL ERECTING PUSHER: 65 y.o. female presents 09/14 as a direct transfer from OSH with septic shock.Relevant PMH: HFimpEF (EF 55-60%) 2/2 Takotsubo cardiomyopathy, non-obstructive CAD, COPD (baselineRA), GERD, OA, anxiety, chronic back pain. Imaging: CXR (09/15): Hypoexpanded lungs with similar bibasilar airspace opacities. No pneumothorax. STEEL ERECTING PUSHER Hx: Seen by in-house STEEL ERECTING PUSHER 05/27/25: increased risk of oropharyngeal dysphagia, rec: regular diet/thin liquids using safe swallow strategies. Assessment complete?: Yes Assessment: Patient presents with no clinical signs or symptoms of aspiration with any consistency,or concerns for oropharyngeal dysphagia. Patient's reports a history of hiatal hernia and previous esophageal dilations, but reports no recent changes or increase in dysphagia symptoms. Pt's reports that she takes small bites of foods at baseline, but is able to tolerate a regular diet without difficulty. The successive 3oz thin liquid challenge was administered and passed, resulting in no clinical signs of aspiration. Mastication is prolonged 2/2 edentulism, but adequate, with complete oral clearance after a liquid wash. No further acute STEEL ERECTING PUSHER services warranted for dysphagia at this time. Plan/Recommendation: - Diet: Regular (IDDSI 7) with Thin Liquids (IDDSI 0) - Medication Administration: whole with liquid - Safe Swallow Strategies: Sit upright, small bites, alternate bites/sips as needed, remain uprightafter meals for 30-60 minutes - Discharge from STEEL ERECTING PUSHER - no acute needs at this time - STEEL ERECTING PUSHER at discharge is not recommended Orientation: Person: Yes Place: Yes Time: No Situation: Inconsistent Behavioral Profile: alert, cooperative, pleasant Pain: Pain Score: 0 - No Pain Pain Location: Leg Pain Descriptors: Aching Pain Intervention(s): Repositioned;Medication (See eMAR) Therapist reported pain to: RN Aspiration Risk Dysphagia Diagnosis: WFL Compensatory Swallowing Strategies: Upright as possible for all oral intake, Remain upright for 20-30 minutes after meals, Eat/feed slowly, Small bites/sips Recommended Solid for Diet: Regular, Easy to Chew (IDDSI 7) Recommended Liquid for Diet: Thin Liquids (IDDSI 0) Medication Administration: whole with liquid Baseline Assessment History of Intubation: No Dentition: Edentulous General appearance of oral cavity: WFL- pink/moist mucosa Baseline diet: regular/thin liquids - small bites (per report) Current diet: regular/thin liquids Vision: Functional for self-feeding Patient Positioning: Upright in bed Volitional Cough: Strong Volitional Swallow: WFL Respiratory Status Respiratory Status: Room air Cranial Nerve & Laryngeal Function Exam CNIII - Occulomotor: Within Functional Limits CNV- Trigeminal: Within Functional Limits CNVII - Facial : Within Functional Limits CNIX - Glossopharyngeal: Within Functional Limits CNX - Vagus: Within Functional Limits CNVXII - Hypoglossal Status: Within Functional Limits Dentition and Hearing Dentition: Edentulous Hearing Exceptions: None Consistencies Assessed Consistencies Assessed: Ice chips;Thin;Puree;Hard Solid Ice Chips # of Trials: x2 Presentation: Spoon Oral: Within functional limits Pharyngeal: No overt s/s of aspiration Thin # of Trials: 4 oz total Presentation: Straw;Self Fed Oral: Within functional limits Pharyngeal: No overt s/s of aspiration;Laryngeal elevation appreciated upon palpation Puree # of Trials: x8 Presentation: Spoon;Self Fed Oral: Within functional limits Pharyngeal: No overt s/s of aspiration Hard Solid # of Trials: x3 Presentation: Self Fed Oral: Prolonged Oral Phase Pharyngeal: No overt s/s of aspiration Patient and Family Education Patient and Family Education: Patient educated on, Family educated on, role of STEEL ERECTING PUSHER, swallowing anatomy & physiology, safe swallowing behaviors, current diet recommendations, risks of aspiration, instrumental procedure, current POC, dysphagia Education response: Patient demonstrated understanding, Family demonstrated understanding End of Session: Patient was left in bed with call light within reach and all needs met. Safety handoff completed with RN/Marva Eastman MA, CCC-STEEL ERECTING PUSHER Speech-Language Pathologist -- Rehab Services [facility] Clin[facility] [phone] (Ascom) [phone] (office) Time Start Time: 1035 Stop Time: 1053 Time Calculation (min): 18 min Charges $Clinical Swallow: 1 Procedure Patient Class Inpatient * Guille Barrett, EDILIA - 09/15/2025 1:23 PM EDTAssociated Order(s): IP CONSULT TO PANCREAS/BILIARY Images from the original note were not included. Department of Digestive Diseases Gastroenterology Consult Note Patient: Laura Mallory CSN: [id number] Reason for Consult Cholangitis Interval History / Subjective Ms. Laura Mallory is a 65 yo female with history of acute DE 2022, anxiety, non- obstructive CAD, COPD, heart failure, stress induced cardiomyopathy, hysterectomy, cholecystectomy, GERD, OA, chronic back pain who was transferred from [facility] with concern for septic shock. Patient was confused on presentation but is able to give some history information. Per chart reviewshe presented to the ER several days prior to current admission with complaints of constipation andno bowel movement for two weeks. CT scan showed bladder wall thickening and UA was positive for nitrites. She was given antibiotics and sent home. She was having some abdominal pain during the previous presentation now with radiation to her back and shoulder. She was nauseated and vomiting prior to presentation, denies hematemesis. She was complaining of constipation prior to presenting to the hospital, unsure of melena or hematochezia. She denies use of anticoagulation, ASA or NSAIDS. She denies use of alcohol or tobacco products, She is S/p cholecystectomy several years ago due to abdominal pain, she is unsure if she had gallstones previously. Unsure of appetite changes or weight loss. No record of endoscopy available on chart. She reports subjective fevers and chills, no shortness of breath, cough or chest pain. On presentation to outside hospital he was found to have an elevated lipase > 3000 with elevatedLFTs in a cholestatic pattern and T bili of 3.3. She had significant leukocytosis with WBC at 48.3,currently 40.7 CT A/P showed bladder wall thickening, otherwise normal. She was transferred requiring pressor support due to significant hypotension BP noted to be 63/34 - currently on levo and has received IV fluid bolus as well as maintenance fluids. She is on zosyn and vancomycin. Abdominal US is in process. Review of Systems (Focused) Constitutional: negative for malaise, night sweats, sleep disturbance, weight gain or weight loss. + chills, + fever Ophthalmic: negative for blurry vision, decreased vision, double vision or loss of vision ENT: negative for epistaxis, headaches, hearing change, sore throat or vertigo Allergy/Immunological: negative for hives, nasal congestion or seasonal allergies Hematological/Lymphatic: negative for bleeding problems, blood clots or swollen lymph nodes Endocrine: negative for polydipsia/polyuria or temperature intolerance Respiratory: negative for cough, hemoptysis, orthopnea, pleuritic pain, shortness of breath or wheezing Cardiovascular: negative for chest pain, dyspnea on exertion or palpitations Gastrointestinal: negative for hematemesis or swallowing difficulty/pain. + nausea/vomiting, + altered bowel habits Genitourinary: no dysuria, trouble voiding, or hematuria Musculoskeletal: negative for joint pain or muscular weakness Dermatological: negative for nail changes, pruritus and rash Neurological: negative for dizziness, gait disturbance, seizures or tremors Psychological: negative for anxiety, concentration difficulties, depression, memory difficulties orsuicidal ideation Physical Exam Temp: [97.2 ??F (36.2 ??C)-98.9 ??F (37.2 ??C)] 98 ??F (36.7 ??C) Heart Rate: [71-86] 86 Resp: [13-28] 28 BP: (75-115)/(41-99) 97/59 General: critically ill appearing. No acute distress. HEENT: Normocephalic and atraumatic. Nares patent. Mucous membranes pink/moist. No scleral icterus. Neck: Neck is supple. No JVD present. No tracheal deviation. No cervical lymphadenopathy. CV: Regular rate and rhythm. Normal S1 and S2. No murmurs/rubs/gallops. Lungs: Clear to auscultation bilaterally. No wheezes/rales/rhonchi. No respiratory distress. Abdomen: Soft, nontender, nondistended, no hepatosplenomegaly or palpable masses. No ascites present. No rebound or guarding present. Extremities: No bilateral lower extremity edema. No clubbing or cyanosis present. Skin: No bruising or rash noted. No spider angiomata or palmar erythema. Neuro: Alert and oriented to person. CN 2-12 grossly intact. No gross motor defecits. No asterixis Psych: Normal mood and affect. Normal speech and behavior. Diagnostic Studies Labs: I have personally reviewed and interpreted the labs. Latest Reference Range & Units 09/14/25 20:38 09/15/25 04:55 Sodium 133 - 146 mmol/L 135 134 Potassium 3.5 - 5.3 mmol/L 4.1 3.5 Chloride 98 - 110 mmol/L 104 103 Carbon Dioxide (CO2) 21 - 33 mmol/L 19 (L) 19 (L) Anion Gap 3 - 16 mmol/L 12 12 BUN 7 - 25 mg/dL 24 24 Creatinine 0.60 - 1.30 mg/dL 1.64 (H) 1.30 Glucose 70 - 100 mg/dL 125 (H) 105 (H) EGFR 34 45 Calcium 8.6 - 10.3 mg/dL 7.8 (L) 7.7 (L) Phosphorus 2.1 - 4.5 mg/dL 4.1 3.7 Magnesium 1.5 - 2.5 mg/dL 1.7 4.0 (H) Albumin 3.5 - 5.7 g/dL 3.1 (L) 2.9 (L) Calculated Osmolality, Serum 278 - 305 mOsm/kg 286 282 (L): Data is abnormally low (H): Data is abnormally high Latest Reference Range & Units 09/14/25 20:38 09/15/25 04:55 Alkaline Phosphatase 36 - 125 U/L 516 (H) 499 (H) AST (SGOT) 13 - 39 U/L 283 (H) 234 (H) ALT (SGPT) 7 - 52 U/L 147 (H) 133 (H) Albumin 3.5 - 5.7 g/dL 3.1 (L) 2.9 (L) Protein, Total 6.4 - 8.9 g/dL 6.1 (L) 5.9 (L) Bilirubin, Indirect 0.00 - 1.10 mg/dL 1.04 0.86 Bili, Total 0.0 - 1.5 mg/dL 4.7 (H) 3.3 (H) Bilirubin, Direct 0.00 - 0.40 mg/dL 3.66 (H) 2.44 (H) Lipase 4 - 82 U/L 462 (H) (H): Data is abnormally high (L): Data is abnormally low Latest Reference Range & Units 09/14/25 20:38 09/15/25 04:55 WBC 3.8 - 10.8 10E3/uL 48.3 (H) 40.7 (H) RBC 3.80 - 5.10 10E6/uL 3.43 (L) 3.32 (L) Hemoglobin 11.7 - 15.5 g/dL 10.2 (L) 9.9 (L) Hematocrit 35.0 - 45.0 % 31.1 (L) 30.3 (L) MCV 80.0 - 100.0 fL 90.8 91.0 MCH 27.0 - 33.0 pg 29.7 29.8 MCHC 32.0 - 36.0 g/dL 32.7 32.7 RDW 11.0 - 15.0 % 19.0 (H) 18.8 (H) Platelet Count 140 - 400 10E3/uL 358 343 Platelet Estimate ADEQ MPV 7.5 - 11.5 fL 8.6 8.4 (H): Data is abnormally high (L): Data is abnormally low Latest Reference Range & Units 09/14/25 20:38 09/15/25 04:55 Protime 12.1 - 15.1 seconds 14.3 15.2 (H) INR 0.9 - 1.1 1.1 1.1 (H): Data is abnormally high I have personally reviewed and interpreted the imaging studies. CT A/P 09/12/2025: Assessment & Plan Laura Mallory is a 65 y.o. with a history of acute DE 2022, anxiety, non- obstructive CAD, COPD, heartfailure, stress induced cardiomyopathy, hysterectomy, cholecystectomy, GERD, OA, chronic back pain who was transferred from OSH with concern for septic shock. #Acute pancreatitis #Elevated LFTs #Concern for biliary obstruction #Sepsis - Presents from OSH with concern for shock likely secondary to sepsis, on pressors with concern forpossible cholangitis vs urinary source - Imaging from OSH from 09/12/25 with bladder wall thickening. Evidence of cholecystectomy. Pancreas unremarkable - On presentation to OSH- lipase was > 3000 with elevated LFTs in a cholestatic pattern, on presentation lipase 462, LFTs and T bili are trending down - Triglycerides 69 - Denies alcohol or tobacco use - BISAP score 3 - Per chart review patient had E coli positive urine and blood cultures from OSH - Repeat urine cultures pending - RUQ US pending - Consider ERCP pending US findings tentatively today vs tomorrow pending endoscopy and anesthesia availability - Continue antibiotics - Continue IV fluids - Continue supportive care per ICU Case to be discussed with attending physician, Dr. Peña. Recommendations final following attendingattestation. GUILLE BARRETT CNP 09/15/2025 1:23 PM Cosigned by Blaine Peña MD at 09/16/2025 8:19 AM EDT Associated attestation - Blaine Peña MD - 09/16/2025 8:19 AM EDT Ms. Laura Mallory is a 65 yo female with history of acute DE 2022, anxiety, non- obstructive CAD, COPD, heart failure, stress induced cardiomyopathy, hysterectomy, cholecystectomy, GERD, OA, chronic back pain who was transferred from OSH with concern for septic shock. On presentation to outside hospital he was found to have an elevated lipase > 3000 with elevatedLFTs in a cholestatic pattern and T bili of 3.3. She had significant leukocytosis with WBC at 48.3,currently 40.7 CT A/P showed bladder wall thickening, otherwise normal. She was transferred requiring pressor support due to significant LFTs trending down. Ultrasound showed CBD 5 mm. # Septic shock # Suspected cholangitis. Will obtain an MRCP. Will schedule for ERCP if MRCP shows filling defects. Blaine Peña MD, MPH [employer] Associate of Clinical Medicine Division of Digestive Diseases. Please see the body of the resident, fellow, and my note for supportive documentation related to the level of service for this complex medical patient. I have reviewed all prior notes. I have reviewed interval / recent lab work including: CBC, renal, hepatic, INR, viral studies, and all other labs for chronic liver disease relating to their medical condition. I have independently reviewed the patients recent radiologic imaging including any CT scans, MRI, ultrasound or endoscopic procedures. Finally, I have reviewed independently any interval liver pathology. documented in this encounter Nursing Notes * Breanna Mantilla RN - 09/22/2025 5:00 PM EDT Patient discharge home with medications from the discharge pharmacy which was delivered to bedside.IV antibiotic will be delivered to home by [facility] care.Discharge instructions given and patient verbalize understanding. PICC line dressing clean dry and intact.Family at bedside. ATB currently running and patient will be ready for home after. * Yeimy Sandoval RN - 09/22/2025 1:01 AM EDT Nursing Overnight Progress Note Significant Events During Shift C/O pain, medicated per order. Continue on ATB, no adverse reaction noted. Patient/Family Concerns Evening/Overnight Visitors: none Concerns: none Assessment Nursing time demands: moderate IV access: has IV access, adequate and functioning Sitter requirements: no Mental Status Mental Status for the past 14 hrs: Orientation Level 09/21/25 1530 Oriented X4 Calls to Physician Team No data found. Medications 7425-U7425 - Medications Not Given (last 12 hrs) No medications to display Diet/Meals Consumed (past 24 hours) Nutrition Assessment for the past 24 hrs: Diet Type Feeding Percent Meals Eaten (%) Appetite 09/21/25 0940 Oral diet as ordered Able to feed self 100 % Good * Farhana Velazco RN - 09/21/2025 2:04 AM EDT Nursing Overnight Progress Note Significant Events During Shift NONE Patient/Family Concerns Evening/Overnight Visitors: adal- Concerns: none Assessment Nursing time demands: moderate IV access: has IV access, adequate and functioning Sitter requirements: no Mental Status Mental Status for the past 14 hrs: Level of Consciousness Orientation Level Cognition 09/20/25 1210 -- Oriented X4 -- 09/20/252129 Alert Oriented X4 Follows 2-step commands Calls to Physician Team No data found. Medications 7425-U7425 - Medications Not Given (last 12 hrs) SITE UNKNOWN Medication Name Action Time Action Reason Comments polyethylene glycol (MIRALAX) packet 17 g 09/20/252035 Not Given Patient/family refused diarrhea senna (SENOKOT) tablet 2 tablet 09/20/252035 Not Given Patient/family refused diarrhea Diet/Meals Consumed (past 24 hours) Nutrition Assessment for the past 24 hrs: Diet Type Feeding Appetite Nutritional Supplement 09/20/25 0806 Oral diet as ordered Able to feed self Good No 09/21/25 0015 Oral diet as ordered Able to feed self -- -- * Baldemar Gandhi RN - 09/19/2025 7:09 AM EDT Nursing Overnight Progress Note Significant Events During Shift Patient resting quietly in bed, awake easily. No acute events overnight. Safety maintained. Staff will continue to monitor. Patient/Family Concerns Evening/Overnight Visitors: none Concerns: none Assessment Nursing time demands: moderate IV access: has IV access, adequate and functioning Sitter requirements: no Mental Status Mental Status for the past 14 hrs: Level of Consciousness Orientation Level Cognition 09/18/252003 Alert Oriented X4 Follows simple commands;Appropriate for developmental age Calls to Physician Team No data found. Medications 7425-U7425 - Medications Not Given (last 12 hrs) No medications to display Diet/Meals Consumed (past 24 hours) Nutrition Assessment for the past 24 hrs: Diet Type Feeding Appetite 09/18/25 0805 Oral diet as ordered Able to feed self Good * Carissa Champion RN - 09/17/2025 3:21 PM EDT Laura Mallory has orders to be transferred to the floor. Pt has been assigned a bed on 7NW room number 7425. MICU resident notified of transfer. Called report to 7NW RN. All belongings, chart and meds gathered and transferred with pt. CMU not ordered. Pt transferred via bed. All questions answered. Pt present at the time of transfer Carissa Champion RN * Leelee Lepe RN - 09/17/2025 3:20 PM EDT Patient assigned to room 7425. Patient is a transfer from MICU. RN looked up in Epic prior to receiving report from previous nurse Sawyer. Patient arrived to the unit. Vitals were taken; VSS. Patientoriented to room. Patient appeared free from any distress. [id number] performed. Patient given prescribed medication when available. No other issues. CLWR. * Carissa Champion RN - 09/17/2025 1:50 PM EDT RN attempted to call report * Kirt Crawford RN - 09/15/2025 7:35 AM EDT Patient is on 18 of levo running through central line. Patients MAPs are in low 60s to high 50s, see flowsheets for vitals. MICU resident made aware patient has no Art Line and pressor requirements are increasing. * Syl Robertson RN - 09/14/2025 8:30 PM EDT Pt admitted to MICU 11 from OSH, report given to RN, pt immediately placed on MICU monitors. CISCO oro @ bedside * Rey Camarillo RN - 09/14/2025 8:25 PM EDT Pt admitted to MICU 11 from OSH. Report received on dayshift. Pt arrived on 14 mcg of levo. VSS on that dose of levo, switched to hospital concentrated levo gtt. MDs aware of arrival. Bathed by receiving CISCO Martell. documented in this encounter Miscellaneous Notes * Care Coordination - CIERA Pearson, PATIENT EDUCATOR - 09/22/2025 3:12 PM EDT [facility] Case Management/Social Work Department Progress Note Patient Information Patient Name: Laura Mallory Hospital day: 8 Inpatient/Observation: Inpatient Level of Care: medicine Admit date: 09/14/2025 Admission diagnosis: Pancreatitis, unspecified pancreatitis type [K85.90] PMH: has a past medical history of Acute non-ST segment elevation myocardial infarction ([facility]) (02/26/2023), Anxiety, Atherosclerosis of coronary artery without angina pectoris (02/26/2023), COPD (chronic obstructive pulmonary disease) ([facility]), Heart failure with improved ejection fraction (HFimpEF) ([facility]), and Stress-induced cardiomyopathy (02/26/2023). PCP: MANAS BLANCAS MD Home Pharmacy: [facility] [id number] [id number] Medical Insurance Coverage: Payor: MEDICARE / Plan: MEDICARE A AND B / Product Type: Medicare / Other Pertinent Information SW attended daily medical huddle and per team, patient is medically ready to discharge. PT/OT recommended residential;patient has declined, she will discharge home with HHC, IV ABX. HHC -[facility], [place], [place] branch; SW spoke to perez Austin today, and she will assist with the referral to this branch (she is located at [facility]); hard fax to [place] from speaking to that branch yesterday is [phone]. ANDERSON spoke to Geovanna and she will pull C note from [facility] today; SW also hard faxed it to [facility]. [facility] - IV antibiotics; anastacio called in yesterday and spoke to perez Aldana, that it was received and scheduled for delivery today. IMM completed by [facility] LEVI. Patient has needed DME at home. Discharge Plan Anticipated discharge plan: Home with [facility], IV ABX Anticipated discharge date: 09/22/2025 CM/ANDERSON will continue to follow and remain available for discharge planning needs. DAMIÁN GUZMAN, CIERA, PATIENT EDUCATOR [phone] * Care Coordination - Maggi Vegas - 09/22/2025 3:08 PM EDT [facility] obtained IMM signature at 3:05 pm .Copy was placed in patients chart and patient received copy. Maggi Vegas Nail Technician Orthodontic Band Maker Care Management Services [phone] * Plan of Care - Lisa Estrada RN - 09/22/2025 2:42 PM EDT Problem: Safety Goal: Patient will [...] up per policy, and non-skid footwear provided. 09/22/2025 1442 by Lisa Estrada RN Outcome: Adequate for Discharge 09/22/2025 1442 by Lisa Estrada RN Outcome: Progressing Goal: Patient with weight > 350lbs will have appropriate equipment Description: Consider ordering Bariatric Bed, Chair and Bedside Commode for patient weight > 350lbs. 09/22/20251441 by Lisa Estrada RN Outcome: Adequate for Discharge 09/22/20251441 by Lisa Estrada RN Outcome: Progressing Problem: Patient will remain free of falls Goal: [place] Fall Precautions 09/22/20251441 by Lisa Estrada RN Outcome: Adequate for Discharge 09/22/20251441 by Lisa Estrada RN Outcome: Progressing Problem: Daily Care Goal: Daily care needs are met Description: Assess and monitor ability to perform self care and identify potential discharge needs. 09/22/20251441 by Lisa Estrada RN Outcome: Adequate for Discharge 09/22/20251441 by Lisa Estrada RN Outcome: Progressing Problem: Psychosocial Needs Goal: Demonstrates ability to cope with hospitalization/illness Description: Assess and monitor patients ability to cope with his/her illness. 09/22/20251441 by Lisa Estrada RN Outcome: Adequate for Discharge 09/22/20251441 by Lisa Estrada RN Outcome: Progressing Goal: Collaborate with patient/family to identify patient's goals 09/22/20251441 by Lisa Estrada RN Outcome: Adequate for Discharge 09/22/20251441 by Lisa Estrada RN Outcome: Progressing Problem: Potential for Compromised Skin Integrity Goal: Skin integrity is maintained or improved Description: Assess and monitor skin integrity. Identify patients at risk for skin breakdown on admission and per policy. Collaborate with interdisciplinary team and initiate plans and interventions as needed. 09/22/20251441 by Lisa Estrada RN Outcome: Adequate for Discharge 09/22/20251441 by Lisa Estrada RN Outcome: Progressing Problem: Knowledge Deficit Goal: Patient/family/caregiver demonstrates understanding of disease process, treatment plan, medications, and discharge instructions Description: Complete learning assessment and assess knowledge base. 09/22/20251441 by Lisa Estrada RN Outcome: Adequate for Discharge 09/22/20251441 by Lisa Estrada RN Outcome: Progressing Problem: Potential for Compromised Skin Integrity Goal: Skin integrity is maintained or improved Description: Assess and monitor skin integrity. Identify patients at risk for skin breakdown on admission and per policy. Collaborate with interdisciplinary team and initiate plans and interventions as needed. 09/22/2025 1442 by Lisa Estrada RN Outcome: Adequate for Discharge 09/22/2025 1442 by Lisa Estrada RN Outcome: Progressing Goal: Nutritional status is improving [...] provide high-protein, high- caloric foods as appropriate. 09/22/2025 144 by Lisa Estrada RN Outcome: Adequate for Discharge 09/22/2025 144 by Lisa Estrada RN Outcome: Progressing Problem: Incontinence Goal: Perineal skin integrity is maintained or improved Description: Assess genitourinary system, perineal skin, labs (urinalysis), and history of incontinence to include past management, aggravating, and alleviating factors. Collaborate with interdisciplinary team and initiate plans and interventions as needed. 09/22/2025 144 by Lisa Estrada RN Outcome: Adequate for Discharge 09/22/2025 1442 by Lisa Estrada RN Outcome: Progressing Problem: High Fall Risk Precautions Goal: High Fall Risk Precautions 09/22/20251441 by Lisa Estrada RN Outcome: Adequate for Discharge 09/22/2025 144 by Lisa Estrada RN Outcome: Progressing Problem: Acute Pain Description: Patient's pain progressing toward patient's stated pain goal Goal: Patient displays improved well-being such as baseline levels for pulse, BP, respirations and relaxed muscle tone or body posture 09/22/2025 144 by Lisa Estrada RN Outcome: Adequate for Discharge 09/22/2025 1442 by Lisa Estrada RN Outcome: Progressing * Home Health Care Note - Lizet Hair MD - 09/22/2025 1:36 PM EDT Images from the original note were not included. REFERRAL FOR HOME HEALTH SERVICES FORM Patient name: Laura Mallory Patient : 1960 Age: 65 y.o. Gender: female SSN: [id number] Address: [address] [place] [address] Phone number: [phone] Patient emergency contact: Extended Emergency Contact Information Primary Emergency Contact: Adal Mallory (next of kin) Address: [address] [address] [facility] Relation: Spouse Date of admission: 09/14/2025 Date of discharge: 09/22/2025 Attending provider: Jj Morrison MD Primary care physician: MANAS BLANCAS MD Code status: Full Code Allergies: Allergies[1] Insurance Information Insurance Information MEDICARE/MEDICARE A AND B Phone: -- Subscriber: Laura Mallory Subscriber#: [id number] Group#: -- Precert#: -- Authorization#: -- Effective Date: -- [employer] [facility]/[employer] [place] [employer] MEDICA[employer] Subscriber: Laura Mallory Subscriber#: [id number] Group#: [id number] Precert#: -- Authorization#: -- Effective Date: -- Diagnoses Present on Admission Primary Diagnosis: Sepsis due to Escherichia coli with acute organ dysfunction ([facility]) Discharge Diagnosis : Active Hospital Problems Diagnosis Date Noted Sepsis due to Escherichia coli with acute organ dysfunction ([facility]) [A41.51, R65.20] 09/17/2025 Weakness [R53.1] 09/21/2025 Cystitis [N30.90] 09/17/2025 Migraine [G43.909] 09/17/2025 Acute pancreatitis [K85.90] 09/17/2025 Tremor [R25.1] 09/17/2025 Severe protein-calorie malnutrition (CMS-HCC) [E43] 09/17/2025 Normocytic anemia [D64.9] 09/17/2025 COPD (chronic obstructive pulmonary disease) ([facility]) [J44.9] Elevated LFTs [R79.89] 05/27/2025 APARNA (obstructive sleep apnea) [G47.33] 05/27/2025 HFimpEF [I50.22] 05/27/2025 Chronic back+knee pain with R-sided sciatica [M54.9, G89.29] 05/27/2025 Constipation [K59.00] 05/27/2025 Septic shock, resolved [A41.9, R65.21] 05/25/2025 Coronary artery disease involving [place] coronary artery of [place] heart without angina pectoris [I25.10] 02/26/2023 Chronic anxiety [F41.9] 05/02/2022 Gastroesophageal reflux disease without esophagitis [K21.9] 05/02/2022 Resolved Hospital Problems Diagnosis Date Noted Date Resolved Acute respiratory failure with hypoxia ([facility]) [J96.01] 05/27/2025 09/17/2025 FER (acute kidney injury) ([facility]) [N17.9] 05/27/2025 09/17/2025 Prognosis: good Rehabilitation potential: good Diet Diet/Nutrition Orders Diet high calorie 3000 kcal a day Frequency: Effective Now Number of Occurrences: Until Specified Order Questions: Suicide/Behavior Risk Modification? No Dietary nutrition supplements Frequency: TID Number of Occurrences: Until Specified Order Questions: Select Supplement: Boost Plus-high calorie high protein supplement As listed above Services Required Nursing Home for IV abx and lab draws Physical Therapy: Plan Treatment/Interventions: LE strengthening/ROM, Therapeutic Activity, Therapeutic Exercise, Patient/family training, Equipment eval/education, Gait training PT Frequency during hospitalization: minimum 3x/week Recommendation Recommendation: Short-term skilled PT (recommend 5x/week at discharge) Equipment Recommended: Patient already has needed DME, Rolling walker Occupational Therapy: Plan Treatment Interventions: ADL retraining, Activity Tolerance training, Continued evaluation, Equipment eval/education, Functional transfer training, Compensatory technique education, Therapeutic Activity, UE strengthening/ROM, Excercise, Energy Conservation Progress: Progressing toward goals OT Frequency during hospitalization: minimum 3x/week Recommendation Recommendation: Short-term skilled OT (recommend 5x/week at discharge) Equipment Recommendations: Patient already has needed DME Weight bearing status: Needs 24 hour supervision due to cognitive impairment: No Discharge Medications Medications: Medication List PAUSE taking these medications Quantity/Refills furosemide 40 MG tablet Wait to take this until your doctor or other care provider tells you to start again. Commonly known as: LASIX Take 1 tablet (40 mg total) by mouth 2 times a day. Refills: 0 Linzess 72 mcg Cap Wait to take this until your doctor or other care provider tells you to start again. Generic drug: linaCLOtide Take 1 capsule (72 mcg total) by mouth every morning before breakfast. Refills: 0 TAKE these medications, which are NEW Quantity/Refills AMOXicillin-clavulanate 875-125 mg per tablet Commonly known as: AUGMENTIN Take 1 tablet by mouth 2 times a day for 14 days. Start taking on: October 15, 2025 Quantity: 28 tablet Refills: 0 naloxone 4 mg/actuation [place] Commonly known as: NARCAN Apply 1 spray in one nostril if needed. Call 911. May repeat dose in other nostril if no response in 3 minutes. Quantity: 2 each Refills: 1 piperacillin-tazobactam IVPB (Outpatient / Ambulatory) Commonly known as: ZOSYN Intravenous 13.5 g daily for 23 days. As a continuous infusion over 24 hours. Refills: 0 polyethylene glycol 17 gram/dose powder Commonly known as: GLYCOLAX Mix one capful (17 g) into 8 oz of liquid and drink twice daily as instructed. Quantity: 238 g Refills: 0 senna 8.6 mg tablet Commonly known as: SENOKOT Take 2 tablets by mouth 2 times a day as needed for Constipation. Quantity: 30 tablet Refills: 0 TAKE these medications, which [...] (60 mg total) by mouth at bedtime. Refills: 0 gabapentin 100 MG capsule Commonly known as: NEURONTIN Take 1 capsule (100 mg total) by mouth 3 times a day as needed. Quantity: 30 capsule Refills: 0 hydrOXYzine HCL 25 MG tablet Commonly known as: ATARAX Take 1 tablet (25 mg total) by mouth 2 times a day as needed for Itching or Anxiety. Refills: 0 LORazepam 0.5 MG tablet Commonly known as: ATIVAN Take 1 tablet (0.5 mg total) by mouth daily as needed for Anxiety. Refills: 0 omeprazole 20 MG capsule Commonly known as: PRILOSEC Take 1 capsule (20 mg total) by mouth every morning before breakfast. Quantity: 30 capsule Refills: 0 sacubitriL-valsartan 24-26 mg Tab Commonly [...] a total daily dose of 250 mg. Refills: 0 * topiramate 100 MG tablet Commonly known as: TOPAMAX Take 1 tablet (100 mg total) by mouth every morning. Take in addition to 150 mg at bedtime for a total daily dose of 250 mg. Refills: 0 traMADoL 50 mg tablet Commonly known as: ULTRAM Take 1 tablet (50 mg total) by mouth every 8 hours as needed for Pain. Refills: 0 Trelegy Ellipta 100-62.5-25 mcg Dsdv Generic drug: eudcidkhnpy-svelbgxsm-enjwaoil Inhale 1 puff into the lungs daily. Quantity: 60 each Refills: 0 * This list has 2 medication(s) that are the same as other medications prescribed for you. Read thedirections carefully, and ask your doctor or other care provider to review them with you. STOP taking these medications famotidine 20 MG tablet Commonly known as: PEPCID Where to Get Your Medications These medications were sent to [facility] [address] [place] [id number] Hours: Friday - Friday: 8:00AM - 6:00PM AMOXicillin-clavulanate 875-125 mg per tablet gabapentin 100 MG capsule naloxone 4 mg/actuation [place]bey omeprazole 20 MG capsule polyethylene glycol 17 gram/dose powder senna 8.6 mg tablet Trelegy Ellipta 100-62.5-25 mcg Dsdv Information about where to get these medications is not yet available Ask your nurse or doctor about these medications piperacillin-tazobactam IVPB (Outpatient / Ambulatory) Discharge Specific Orders Discharge specific orders: Continue IV Zosyn to complete 4 weeks course EOT 10/14/2025, could transition to PO Augmentin after4 weeks of IV therapy, 10/15-10/27 for a total 6 weeks Option Care for IV Zosyn 13.5 g daily continuous infusion Urology referral for history of recurrent UTI and thickening of the bladder on imaging GI follow up as outpatient Follow up labs weekly CBC.diff, ESR, CRP, CMP and fax labs to [facility] at [phone] PICC line care weekly Will arrange ID Clinic follow up Can discontinue PICC on 10/15 Isolation Patient Isolation Status None to display Vitals No data found. Vitals: 09/21/25 1815 09/21/25 2031 09/22/25 0418 09/22/25 0811 BP: 125/69 101/67 115/81 139/78 BP Location: Left upper arm Left forearm Left forearm Patient Position: Lying Lying Lying BP Cuff Size: Pulse: 74 85 73 85 Resp: 16 16 18 18 Temp: 98 ??F (36.7 ??C) 98.2 ??F (36.8 ??C) 97.9 ??F (36.6 ??C) 97.7 ??F (36.5 ??C) TempSrc: Oral Oral Oral Oral SpO2: 100% 97% 98% 96% Weight: Height: Equipment/Supplies Patient already has needed DME-rolling walker No current labs Ordering Physician: LUAN [JJ MORRISON MD] Physician Certification Further, I certify that my clinical findings support that this patient is homebound (i.e. absences from home require considerable and taxing effort and are for medical reasons or jainism services or infrequently or short duration when for other reasons) due to deconditioning it would be a taxing effort to receive outpatient services. My signature below is to certify that this patient is under my care and that I, or nurse practitioner, or a physician assistant warehouse manager working with me, had a woxi-zx-fhlm encounter with this is patient on: 09/22/2025 Follow-up Appointments and Post Hospital Discharge Physician Name Future Appointments Date Time Provider Department Center 10/05/2025 2:40 PM Laine Padilla MD [facility] 11/02/2025 9:00 AM Ryan Mclaughlin MD [facility] 11/02/2025 11:30 AM Blaine Peña MD [facility] Dr. Manas Blancas [phone] [address], [place] [address] Go on 09/29/2025 11:15 a.m. [facility] [address] [facility] [facility] [address], [address] [facility] [address] Discharging Physician Signature and Credentials Discharging Physician: Electronically signed by LIZET HAIR MD 09/22/2025, 1:35 PM Physician to follow up Information PCP: MANAS BLANCAS MD PCP address: [address] [place] [address] PCP phone number: [phone] PCP fax number: [phone] If PCP is not following patient, type physician contact information here: Patient will be followed by PCP Medical Lab Assistant and Credentials Provider/Company Name and Contact Number: Medical Lab Assistant Name and Telephone Number: Damián VANG [facility] [phone] [1] Allergies Allergen Reactions Aleve [Naproxen Sodium] Cristina [Fexofenadine] * Plan of Care - Yeimy Sandoval RN - 09/22/2025 1:00 AM EDT Problem: Safety Goal: Patient will [...] and non-skid footwear provided. Outcome: Progressing Problem: Daily Care Goal: Daily care needs are met Description: Assess and monitor ability to perform self care and identify potential discharge needs. Outcome: Progressing * Care Coordination - CIERA Pearson, PATIENT EDUCATOR - 09/21/2025 3:43 PM EDT [facility] Case Management/Social Work Department Progress Note Patient Information Patient Name: Laura Mallory Hospital day: 7 Inpatient/Observation: Inpatient Level of Care: medicine Admit date: 09/14/2025 Admission diagnosis: Pancreatitis, unspecified pancreatitis type [K85.90] PMH: has a past medical history of Acute non-ST segment elevation myocardial infarction ([facility]) (02/26/2023), Anxiety, Atherosclerosis of coronary artery without angina pectoris (02/26/2023), COPD (chronic obstructive pulmonary disease) ([facility]), Heart failure with improved ejection fraction (HFimpEF) ([facility]), and Stress-induced cardiomyopathy (02/26/2023). PCP: MANAS BLANCAS MD Home Pharmacy: [facility] [address] [facility] [id number] Medical Insurance Coverage: Payor: MEDICARE / Plan: MEDICARE A AND B / Product Type: Medicare / Other Pertinent Information SW attended daily medical huddle and per team, patient is not medically ready to discharge. [facility] was initially secured with Veronique Ramirez, however, they called and stated Ar has worked with patient before and will pick her back up, , FAX [phone]. SWcalled Ar and patient has ended services as of 09/13/2025 and will re-start her care; she hadreceived PT/OT/SN and they can again provide them. PT/OT did re-evaluate patient today and recommend residential; SW provided patient and spouse aRepisodic list and spoke to them 2x about their concerns regarding residential and patient has declined and would like to go home with [facility]; medical team is aware. Discharge Plan Anticipated discharge plan: Home with [facility] Anticipated discharge date: 09/22/2025 CM/SW will continue to follow and remain available for discharge planning needs. DAMIÁN GUZMAN MSW, MARSHALL [phone] * Plan of Care - Farhana Velazco RN - 09/21/2025 2:46 AM EDT Problem: Safety Goal: Patient will [...] policy, and non-skid footwear provided. Outcome: Progressing * Care Coordination - CIERA Pearson LSW - 09/20/2025 4:49 PM EDT [facility] Case Management/Social Work Department Brief Assessment Re-Admission within 30 days Planned or unplanned? unplanned If planned: Reason? If unplanned: Reason? Transfer from OSH Discuss with patient any barriers to prevent re-admission? Patient Information Admission diagnosis: septic shock Demographic verified and updated as needed Support Systems Designated decision maker (POA or Next of Kin): Adal Mallory Phone #: [phone] Relationship: spouse Living Arrangements Prior to Hospitalization Patient resides at home with spouse Adal; they live in [place], [place]. Spouse is LNOK. She has 2 adult sons, Hung & Oscar. PCP is confirmed - Dr. Manas Blancas in [place], [place]; spouse drives her to appointments. Full assessment in chart dated 05/26/2025. Community Resources Prior to Hospitalization Home Health Care Services and Phone # SW trying to determine -patient cannot recall Home Respiratory Services: nebulizer from [facility] in [place], [place] Provider and Phone # Home O2: Baseline Liter Flow: BIPAP/CPAP: Nebulizer: Durable Medical Equipment: RW, canse, wc, sc Discharge Plan Anticipated discharge plan: home with [facility] Company Name(s) and Phone # pending Anticipated discharge date: 09/21/2025 Transportation at Discharge: family Please contact CM/SW for any further discharge planning needs. Patient/Family aware and taking part in the discharge plan. Patient/family educated that once post-acute care needs have been identified, a provider list applicable to the identified post-acute care needs as well as the insurance provider will be provided, and patient/family have the freedom to choose their provider(s); financial interest(s) are disclosed as appropriate. Damián VANG PATIENT EDUCATOR [phone] * Care Coordination - Maggi Vegas - 09/20/2025 2:23 PM EDT CCA obtained IMM proxy signature from at 2:23 pm .Copy was placed in patients chart and patient received copy. Maggi Vegas Nail Technician Orthodontic Band Maker Care Management Services [phone] * Plan of Care - Leelee Lepe RN - 09/20/2025 10:40 AM EDT Problem: Safety Goal: Patient will [...] and non-skid footwear provided. Outcome: Progressing Problem: Daily Care Goal: Daily care needs are met Description: Assess and monitor ability to perform self care and identify potential discharge needs. Outcome: Progressing Problem: Psychosocial Needs Goal: Demonstrates ability to cope with hospitalization/illness Description: Assess and monitor patients ability to cope with his/her illness. Outcome: Progressing Problem: Discharge Barriers Goal: Patient's discharge needs are met Description: Collaborate with interdisciplinary team and initiate plans and interventions as needed. Outcome: Progressing Problem: Potential for Compromised Skin [...] caloric foods as appropriate. Outcome: Progressing Problem: Discharge Planning Goal: Patient's discharge needs are met Description: Collaborate with interdisciplinary team and initiate plans and interventions as needed. Outcome: Progressing * Plan of Care - Brenda Foley RN - 09/20/2025 2:55 AM EDT Problem: Safety Goal: Patient will [...] and non-skid footwear provided. Outcome: Progressing Problem: Psychosocial Needs Goal: Demonstrates ability to cope with hospitalization/illness Description: Assess and monitor patients ability to cope with his/her illness. Outcome: Progressing Problem: Discharge Barriers Goal: Patient's [...] and interventions as needed. Outcome: Progressing Problem: Acute Pain Description: Patient's pain progressing toward patient's stated pain goal Goal: Patient displays improved well-being such as baseline levels for pulse, BP, respirations and relaxed muscle tone or body posture Outcome: Progressing * Plan of Care - Leelee Lepe RN - 09/19/2025 2:31 PM EDT Problem: Safety Goal: Patient will [...] Patient will remain free of falls Goal: [place] Fall Precautions Outcome: Progressing Problem: Daily Care [...] Outcome: Progressing * Plan of Care - Baldemar Gandhi RN - 09/18/2025 10:58 PM EDT Problem: High Fall Risk Precautions Goal: High Fall Risk Precautions Outcome: Progressing Problem: Potential for Compromised Skin [...] caloric foods as appropriate. Outcome: Progressing Problem: Safety Goal: Patient will be injury [...] policy, and non-skid footwear provided. Outcome: Progressing * Plan of Care - Leelee Lepe RN - 09/18/2025 8:17 AM EDT Problem: Safety Goal: Patient will [...] and non-skid footwear provided. Outcome: Progressing Problem: Daily Care Goal: Daily [...] High Fall Risk Precautions Outcome: Progressing Problem: Potential for Compromised Skin [...] Outcome: Progressing * Plan of Care - Baldemar Gandhi RN - 09/17/2025 11:55 PM EDT Problem: Safety Goal: Patient will [...] and non-skid footwear provided. Outcome: Progressing Problem: Daily Care Goal: Daily care needs are met Description: Assess and monitor ability to perform self care and identify potential discharge needs. Outcome: Progressing Problem: Potential for Compromised Skin [...] Goal: High Fall Risk Precautions Outcome: Progressing * Plan of Care - Leelee Lepe RN - 09/17/2025 4:14 PM EDT Problem: Safety Goal: Patient will [...] and non-skid footwear provided. Outcome: Progressing Problem: Daily Care Goal: Daily [...] Outcome: Progressing * Plan of Care - González Winter - 09/17/2025 9:35 AM EDT Problem: High Fall Risk Precautions Goal: High Fall Risk Precautions Outcome: Progressing Pt has fall bracelet on, room free of clutter, call light/overbed table within reach, pt instructedto call before getting up, bed in lowest position, wheels locked, non-skid footwear provided. Cosigned by Carissa Champion RN at 09/21/2025 8:29 AM EDT Associated attestation - Carissa Champion RN - 09/21/2025 8:29 AM EDT I have read and agree with this plan of care * Plan of Care - Radha Grant - 09/16/2025 7:16 AM EDT Problem: Patient will remain free of falls Goal: [place] Fall Precautions Outcome: Progressing Problem: Psychosocial Needs Goal: Collaborate with patient/family to identify patient's goals Outcome: Progressing Problem: Potential for Compromised Skin Integrity Goal: Skin integrity is maintained or improved Description: Assess and monitor skin integrity. Identify patients at risk for skin breakdown on admission and per policy. Collaborate with interdisciplinary team and initiate plans and interventions as needed. Outcome: Progressing Problem: High Fall Risk Precautions Goal: High Fall Risk Precautions Outcome: Progressing B.S., SN Cosigned by Marva Waldron RN at 09/16/2025 11:18 AM EDT Associated attestation - Marva Waldron RN - 09/16/2025 11:18 AM EDT Care plan implemented to address this patient's individualized needs. Kaiden RN * Plan of Care - Kirt Crawford RN - 09/15/2025 8:31 AM EDT Problem: Safety Goal: Patient will [...] and non-skid footwear provided. Outcome: Not Progressing Goal: Patient with weight > 350lbs will have appropriate equipment Description: Consider ordering Bariatric Bed, Chair and Bedside Commode for patient weight > 350lbs. Outcome: Not Progressing Problem: Patient will remain free of falls Goal: [place] Fall Precautions Outcome: Not Progressing Problem: Daily Care Goal: Daily care needs are met Description: Assess and monitor ability to perform self care and identify potential discharge needs. Outcome: Not Progressing * ACP (Advance Care Planning) - Nieves Bryant MD - 09/15/2025 12:22 AM EDT Medical Orders for Life-Sustaining Treatment Discussion In the event of a medical emergency, the patient has voiced these wishes: Cardiopulmonary Resuscitation (CPR) If there is no pulse and no breathing: Attempt resuscitation/CPR with full treatment and intervention. Medical Interventions If there is a pulse and/or breathing: Full intervention including intubation, mechanical ventilation, cardioversion, and transfer to intensive care as indicated. Antibiotics/Hydration Antibiotics: Use antibiotics if clinically indicated. Food and liquids by mouth is always offered if feasible. If not, Long-term hydration/nutrition by tube. These wishes were discussed with Patient. Staff present for discussion included: resident Nieves Bryant MD Time spent in conversation: 10 minutes * Plan of Care - Tosha Scanlon RN - 09/14/2025 8:58 PM EDT Problem: Safety Goal: Patient will [...] Patient will remain free of falls Goal: [place] Fall Precautions Outcome: Progressing Problem: Daily Care Goal: Daily care needs are met Description: Assess and monitor ability to perform self care and identify potential discharge needs. Outcome: Progressing Problem: Potential for Compromised Skin Integrity Goal: Skin integrity is maintained or improved Description: Assess and monitor skin integrity. Identify patients at risk for skin breakdown on admission and per policy. Collaborate with interdisciplinary team and initiate plans and interventions as needed. Outcome: Progressing Problem: Potential for Compromised Skin [...] high- caloric foods as appropriate. Outcome: Progressing * Plan of Care - Rey Camarillo RN - 09/14/2025 8:35 PM EDT Problem: Patient will remain free of falls Goal: [place] Fall Precautions Outcome: Progressing Pt at risk of falls. Pt oriented to room, fall bracelet in place, call light and personal items within reach. Bed in lowest and locked position, 3/4 siderails up. Pt reminded to call for assistance. Frequent rounding performed. Problem: Potential for Compromised Skin Integrity Goal: Skin integrity is maintained or improved Description: Assess and monitor skin integrity. Identify patients at risk for skin breakdown on admission and per policy. Collaborate with interdisciplinary team and initiate plans and interventions as needed. Outcome: Progressing Patient is at risk for skin breakdown. Patient is on a Q two hour turn schedule in order to prevent skin breakdown. Incontinence assessed. Will continue to monitor skin for any signs of injury or increased risk for injury to the patient. * Plan of Care - Syl Robertson RN - 09/14/2025 8:34 PM EDT Problem: Patient will remain free of falls Goal: [place] Fall Precautions Outcome: Progressing Note: Patient will remain free of falls for this shift. Bed will be in a low and locked position. Floor will be kept free of obstacles and clutter. Patient will wear no slip socks. Patient will have the call light within reach and frequently needed items within reach of patient and call lights willbe answered promptly. Bathroom will be offered every 2 hours. Problem: Daily Care Goal: Daily care needs are met Description: Assess and monitor ability to perform self care and identify potential discharge needs. Outcome: Progressing documented in this encounter Plan of Treatment Pending Results Name Type Priority Associated Diagnoses Date /Time CT Outside Film Review Imaging Routine 3:09 PM EDT Scheduled Orders Name Type Priority Associated Diagnoses Orde r Schedule CT Outside Film Review Imaging Routine On e time imaging One time imaging for 1 Occurrences starting 09/15/2025 until 09/15/2025 Scheduled Referrals Name Type Priority Associated Diagnoses Orde r Schedule UTI Outpatient Referral Routine Cystitis Sepsis due to Escherichia coli with acute organ dysfunction and septic shock, unspecified organ dysfunction type ([facility]) Ordered: 09/21/2025 documented as of this encounter Procedures Procedure Name Priority Date/Time Associated Diagnosis Comments EKG - SCAN 09/23/2025 12:09 PM EDT HEPATIC FUNCTION PANEL Routine 6:54 AM EDT RENAL FUNCTION PANEL W/EGFR Routine 08/26 6:54 AM EDT CBC Routine 09/22/2025 6:54 AM EDT MAGNESIUM Routine 09/22/2025 6:54 AM EDT HEPATIC FUNCTION PANEL Routine 3:20 AM EDT RENAL FUNCTION PANEL W/EGFR Routine 08/25 3:20 AM EDT CBC Routine 09/21/2025 3:20 AM EDT MAGNESIUM Routine 09/21/2025 3:20 AM EDT HEPATIC FUNCTION PANEL Routine 4:16 AM EDT RENAL FUNCTION PANEL W/EGFR Routine 08/25 4:16 AM EDT CBC Routine 09/20/2025 4:16 AM EDT MAGNESIUM Routine 09/20/2025 4:16 AM EDT INSERT PICC LINE Routine 09/19/2025 4:48 PM EDT RENAL FUNCTION PANEL W/EGFR Routine 08/25 6:50 AM EDT CBC Routine 09/19/2025 6:50 AM EDT MAGNESIUM Routine 09/19/2025 6:50 AM EDT SED RATE Routine 09/18/2025 3:24 PM EDT DIFFERENTIAL Routine 09/18/2025 3:24 PM EDT PROTIME-INR Routine 09/18/2025 3:24 PM EDT CBC Routine 09/18/2025 3:24 PM EDT HEPATIC FUNCTION PANEL Routine 4:05 AM EDT RENAL FUNCTION PANEL W/EGFR Routine 08/25 4:05 AM EDT C-REACTIVE PROTEIN Routine 09/18/2025 4: 05 AM EDT MAGNESIUM Routine 09/18/2025 4:05 AM EDT BLOOD CULTURE-PERIPHERAL Routine 025 4:37 PM EDT BLOOD CULTURE-PERIPHERAL Routine 025 4:37 PM EDT HEPATIC FUNCTION PANEL Routine 6:27 AM EDT RENAL FUNCTION PANEL W/EGFR Routine 08/25 6:27 AM EDT DIFFERENTIAL Routine 09/17/2025 6:27 AM EDT PROTIME-INR Routine 09/17/2025 6:27 AM EDT CBC Routine 09/17/2025 6:27 AM EDT MAGNESIUM Routine 09/17/2025 6:27 AM EDT YAHAIRA RHYTHM STRIP - SCAN 09/16/20 11:30 PM EDT VENOUS BLOOD GAS, LINE/SYRINGE STAT 1 4:13 PM EDT POC GLU MONITORING DEVICE Routine 2024 4:13 PM EDT YAHAIRA RHYTHM STRIP - SCAN 09/16/20 10:45 AM EDT HEPATIC FUNCTION PANEL Routine 3:44 AM EDT RENAL FUNCTION PANEL W/EGFR Routine 08/25 3:44 AM EDT PROTIME-INR Routine 09/16/2025 3:44 AM EDT CBC Routine 09/16/2025 3:44 AM EDT MAGNESIUM Routine 09/16/2025 3:44 AM EDT MRI CHOLANGIOPANCREATOGRAPHY Routine 12:26 AM EDT LACTATE DEHYDROGENASE STAT 09/15/2025 3:07 PM EDT HAPTOGLOBIN Routine 09/15/2025 3:07 PM EDT GAMMA GT Routine 09/15/2025 3:07 PM EDT XR PORTABLE CHEST STAT 09/15/2025 3:0 3 PM EDT US ABDOMEN COMPLETE Routine 09/15/2025 2 :33 PM EDT INSERT ARTERIAL LINE Routine 09/15/2025 2:18 PM EDT CENTRAL LINE Routine 09/15/2025 1:49 PM EDT VANCOMYCIN, RANDOM Routine 09/15/2025 9: 34 AM EDT ECHO COMPLETE W/ CONTRAST Routine 2024 8:42 AM EDT MRSA/STAPH AUREUS DNA - DIAGNOSTIC TESTING FOR PNEUMONIA Routine 09/15/2025 4:55 AM EDT HEPATIC FUNCTION PANEL Routine 4:55 AM EDT RENAL FUNCTION PANEL W/EGFR Routine 08/25 4:55 AM EDT PROTIME-INR Routine 09/15/2025 4:55 AM EDT CBC Routine 09/15/2025 4:55 AM EDT TRIGLYCERIDES Routine 09/15/2025 4:55 AM EDT MAGNESIUM Routine 09/15/2025 4:55 AM EDT LIPID PANEL Routine 09/15/2025 4:55 AM EDT YAHAIRA RHYTHM STRIP - SCAN 09/15/20 3:49 AM EDT ECG 12-LEAD (MUSE) STAT 09/14/2025 9: 35 PM EDT XR PORTABLE CHEST Routine 09/14/2025 9:1 5 PM EDT INFLUENZA A AND B, COVID, RS V COMBINATION ASSAY, ANU STAT 09/14/2025 9:13 PM EDT HIGH SENSITIVITY TROPONIN STAT 2024 9:13 PM EDT URINE CULTURE Routine 09/14/2025 9:13 PM EDT B NATRIURETIC PEPTIDE Routine 09/14/2025 9:13 PM EDT VENOUS BLOOD GAS, LINE/SYRINGE STAT 1 8:55 PM EDT URINALYSIS W/RFL TO MICROSCOPIC Routine 09/14/2025 8:42 PM EDT HEPATIC FUNCTION PANEL STAT 8:38 PM EDT LACTIC ACID STAT 09/14/2025 8:38 PM EDT RENAL FUNCTION PANEL W/EGFR STAT 08/25 8:38 PM EDT PROTIME-INR STAT 09/14/2025 8:38 PM EDT CBC STAT 09/14/2025 8:38 PM EDT MAGNESIUM STAT 09/14/2025 8:38 PM EDT LIPASE STAT 09/14/2025 8:38 PM EDT VANCOMYCIN, RANDOM STAT 09/14/2025 8: 38 PM EDT PROCEDURE NOT PERFORMED documented in this encounter Results * EKG - scan (09/23/2025 12:09 PM EDT) us Scanning [facility] SCAN DOCS - NO RESULTS Final Res ult * (ABNORMAL) Hepatic Function Panel, AM (09/22/2025 6:54 AM EDT) Total Bilirubin 0.5 0.0 - 1.5 mg/dL 09/22/2025 7:48 AM EDT [facility] Bilirubin, Direct 0.15 0.00 - 0.40 mg/dL 09/22/2025 7:48 AM EDT [facility] AST 14 13 - 39 U/L 09/22/2025 7:48 AM EDT [facility] ALT 22 7 - 52 U/L 09/22/2025 7:48 AM EDT [facility] Alkaline Phosphatase 309(H) 36 - 125 U/L 09/22/2025 7:48 AM EDT [facility] Total Protein 6.3(L) 6.4 - 8.9 g/dL 09/22/2025 7:48 AM EDT [facility] Albumin 2.6(L) 3.5 - 5.7 g/dL 09/22/2025 7:48 AM EDT [facility] Bilirubin, Indirect 0.35 0.00 - 1.10 mg/dL 09/22/2025 7:48 AM EDT [facility] Plasma 09/22/2025 6:54 AM EDT 09/22/2025 7:07 AM EDT us Lizet Hair MD LAB BLOOD ORDERABLES Final Res ult [facility] [address] * (ABNORMAL) CBC (09/22/2025 6:54 AM EDT) WBC 10.3 3.8 - 10.8 10E3/uL 09/22/2025 7:35 AM EDT [facility] RBC 2.88(L) 3.80 - 5.10 10E6/uL 09/22/2025 7:35 AM EDT [facility] Hemoglobin 8.6(L) 11.7 - 15.5 g/dL 09/22/2025 7:35 AM EDT [facility] Hematocrit 25.7(L) 35.0 - 45.0 % 09/22/2025 7:35 AM EDT [facility] MCV 89.4 80.0 - 100.0 fL 09/22/2025 7:35 AM EDT [facility] MCH 29.9 27.0 - 33.0 pg 09/22/2025 7:35 AM EDT [facility] MCHC 33.4 32.0 - 36.0 g/dL 09/22/2025 7:35 AM EDT [facility] RDW 19.1(H) 11.0 - 15.0 % 09/22/2025 7:35 AM EDT [facility] Platelets 391 140 - 400 10E3/uL 09/22/2025 7:35 AM EDT [facility] MPV 8.4 7.5 - 11.5 fL 09/22/2025 7:35 AM EDT [facility] Whole Blood 09/22/2025 6:54 AM EDT 09/22/2025 7:07 AM EDT us Lizet Hair MD LAB BLOOD ORDERABLES Final Res ult [facility] [address] [place] [address], [place] * (ABNORMAL) Renal Function Panel w/EGFR (09/22/2025 6:54 AM EDT) Sodium 139 133 - 146 mmol/L 09/22/2025 7:48 AM EDT [facility] Potassium 3.9 3.5 - 5.3 mmol/L 09/22/2025 7:48 [facility] Chloride 106 98 - 110 mmol/L 09/22/2025 7:48 AM T [facility] CO2 25 21 - 33 mmol/L 09/22/2025 7:48 AM T [facility] Comment:High lactate dehydro genase concentrations in patient samples may cause falsely increased bicarbonate results. If markedly elevated LDH is observed or suspected, please assess results in conjunction with patient`s clinical presentation. In cases of discrepant results, consider evaluating CO2 in with a blood gas order. Anion Gap 8 3 - 16 mmol/L 09/22/2025 7:48 AM T [facility] BUN 6(L) 7 - 25 mg/dL 09/22/2025 7:48 AM [facility] Creatinine 0.50(L) 0.60 - 1.30 mg/dL 09/22/2025 7:48 AM [facility] Glucose 90 70 - 100 mg/dL 09/22/2025 7:48 AM [facility] Calcium 8.2(L) 8.6 - 10.3 mg/dL 09/22/2025 7:48 AM [facility] Phosphorus 3.8 2.1 - 4.5 mg/dL 09/22/2025 7:48 AM [facility] Albumin 2.6(L) 3.5 - 5.7 g/dL 09/22/2025 7:48 AM [facility] Osmolality, Calculated 285 278 - 305 mOsm/kg 09/22/2025 7:48 AM EDT [facility] EGFR >90 09/22/2025 7:48 AM [facility] Comment: As of 2022, the [...] 6:54 AM EDT 09/22/2025 7:07 AM EDT Lizet Hair MD LAB BLOOD ORDERABLES Final Res ult Performing Organization Address [facility] Co de Phone Number [facility] [address] [facility] * Magnesium (09/22/2025 6:54 AM EDT) Magnesium 1.8 1.5 - 2.5 mg/dL 09/22/2025 7:48 AM EDT [facility] Plasma 09/22/2025 6:54 AM EDT 09/22/2025 7:07 AM EDT Lizet Hair MD LAB BLOOD ORDERABLES Final Res ult Performing Organization Address [facility]/State/ZIP Co de Phone Number [facility] [address] [facility] * (ABNORMAL) Hepatic Function Panel, AM (09/21/2025 3:20 AM EDT) Total Bilirubin 0.6 0.0 - 1.5 mg/dL 09/21/2025 3:55 AM EDT [facility] Bilirubin, Direct 0.22 0.00 - 0.40 mg/dL 09/21/2025 3:55 AM EDT [facility] AST 17 13 - 39 U/L 09/21/2025 3:55 AM EDT [facility] ALT 27 7 - 52 U/L 09/21/2025 3:55 AM EDT [facility] Alkaline Phosphatase 337(H) 36 - 125 U/L 09/21/2025 3:55 AM EDT [facility] Total Protein 6.2(L) 6.4 - 8.9 g/dL 09/21/2025 3:55 AM EDT [facility] Albumin 2.7(L) 3.5 - 5.7 g/dL 09/21/2025 3:55 AM EDT [facility] Bilirubin, Indirect 0.38 0.00 - 1.10 mg/dL 09/21/2025 3:55 AM EDT [facility] Plasma 09/21/2025 3:20 AM EDT 09/21/2025 3:32 AM EDT us Lizet Hair MD LAB BLOOD ORDERABLES Final Res ult [facility] [address] * (ABNORMAL) CBC (09/21/2025 3:20 AM EDT) WBC 12.1(H) 3.8 - 10.8 10E3/uL 09/21/2025 4:27 AM EDT [facility] RBC 2.90(L) 3.80 - 5.10 10E6/uL 09/21/2025 4:27 AM EDT [facility] Hemoglobin 8.6(L) 11.7 - 15.5 g/dL 09/21/2025 4:27 AM EDT [facility] Hematocrit 25.6(L) 35.0 - 45.0 % 09/21/2025 4:27 AM EDT [facility] MCV 88.3 80.0 - 100.0 fL 09/21/2025 4:27 AM EDT [facility] MCH 29.6 27.0 - 33.0 pg 09/21/2025 4:27 AM EDT [facility] MCHC 33.5 32.0 - 36.0 g/dL 09/21/2025 4:27 AM EDT [facility] RDW 18.6(H) 11.0 - 15.0 % 09/21/2025 4:27 AM EDT [facility] Platelets 379 140 - 400 10E3/uL 09/21/2025 4:27 AM EDT [facility] MPV 8.1 7.5 - 11.5 fL 09/21/2025 4:27 AM EDT [facility] Whole Blood 09/21/2025 3:20 AM EDT 09/21/2025 3:32 AM EDT us Lizet Hair MD LAB BLOOD ORDERABLES Final Res ult [facility] [address] [place] [address], [facility] * (ABNORMAL) Renal Function Panel w/EGFR (09/21/2025 3:20 AM EDT) Sodium 138 133 - 146 mmol/L 09/21/2025 3:55 AM EDT [facility] Potassium 3.7 3.5 - 5.3 mmol/L 09/21/2025 3:55 AM EDT [facility] Chloride 104 98 - 110 mmol/L 09/21/2025 3:55 AM EDT [facility] CO2 26 21 - 33 mmol/L 09/21/2025 3:55 AM EDT [facility] Comment:High lactate dehydro genase concentrations in patient samples may cause falsely increased bicarbonate results. If markedly elevated LDH is observed or suspected, please assess results in conjunction with patient`s clinical presentation. In cases of discrepant results, consider evaluating CO2 in with a blood gas order. Anion Gap 8 3 - 16 mmol/L 09/21/2025 3:55 AM EDT [facility] BUN 5(L) 7 - 25 mg/dL 09/21/2025 3:55 AM EDT [facility] Creatinine 0.44(L) 0.60 - 1.30 mg/dL 09/21/2025 3:55 AM EDT [facility] Glucose 139(H) 70 - 100 mg/dL 09/21/2025 3:55 AM EDT [facility] Calcium 8.2(L) 8.6 - 10.3 mg/dL 09/21/2025 3:55 AM EDT [facility] Phosphorus 4.6(H) 2.1 - 4.5 mg/dL 09/21/2025 3:55 AM EDT [facility] Albumin 2.7(L) 3.5 - 5.7 g/dL 09/21/2025 3:55 AM EDT [facility] Osmolality, Calculated 286 278 - 305 mOsm/kg 09/21/2025 3:55 AM EDT [facility] EGFR >90 09/21/2025 3:55 AM EDT [facility] Comment: As of 2022, the estimated [...] renal disease. For additional information: www.[email or web address] Plasma 09/21/2025 3:20 AM EDT 09/21/2025 3:32 AM EDT us Lizet Hair MD LAB BLOOD ORDERABLES Final Res ult [facility] [address] [place] [place] [address], [facility] * Magnesium (09/21/2025 3:20 AM EDT) Magnesium 2.1 1.5 - 2.5 mg/dL 09/21/2025 3:55 AM EDT [facility] Plasma 09/21/2025 3:20 AM EDT 09/21/2025 3:32 AM EDT Lizet Hair MD LAB BLOOD ORDERABLES Final Res ult Performing Organization Address [facility] Co de Phone Number [facility] [address] [facility] * (ABNORMAL) Hepatic Function Panel, AM (09/20/2025 4:16 AM EDT) Total Bilirubin 0.7 0.0 - 1.5 mg/dL 09/20/2025 5:25 AM EDT [facility] Bilirubin, Direct 0.26 0.00 - 0.40 mg/dL 09/20/2025 5:25 AM EDT [facility] AST 20 13 - 39 U/L 09/20/2025 5:25 AM EDT [facility] ALT 33 7 - 52 U/L 09/20/2025 5:25 AM EDT [facility] Alkaline Phosphatase 365(H) 36 - 125 U/L 09/20/2025 5:25 AM EDT [facility] Total Protein 6.1(L) 6.4 - 8.9 g/dL 09/20/2025 5:25 AM EDT [facility] Albumin 2.7(L) 3.5 - 5.7 g/dL 09/20/2025 5:25 AM EDT [facility] Bilirubin, Indirect 0.44 0.00 - 1.10 mg/dL 09/20/2025 5:25 AM EDT [facility] Plasma 09/20/2025 4:16 AM EDT 09/20/2025 4:23 AM EDT us Lizet Hair MD LAB BLOOD ORDERABLES Final Res ult [facility] [address] * (ABNORMAL) CBC (09/20/2025 4:16 AM EDT) WBC 11.8(H) 3.8 - 10.8 10E3/uL 09/20/2025 5:15 AM EDT [facility] RBC 2.80(L) 3.80 - 5.10 10E6/uL 09/20/2025 5:15 AM EDT [facility] Hemoglobin 8.2(L) 11.7 - 15.5 g/dL 09/20/2025 5:15 AM EDT [facility] Hematocrit 24.8(L) 35.0 - 45.0 % 09/20/2025 5:15 AM EDT [facility] MCV 88.6 80.0 - 100.0 fL 09/20/2025 5:15 AM EDT [facility] MCH 29.5 27.0 - 33.0 pg 09/20/2025 5:15 AM EDT [facility] MCHC 33.3 32.0 - 36.0 g/dL 09/20/2025 5:15 AM EDT [facility] RDW 18.8(H) 11.0 - 15.0 % 09/20/2025 5:15 AM EDT [facility] Platelets 285 140 - 400 10E3/uL 09/20/2025 5:15 AM EDT [facility] MPV 8.0 7.5 - 11.5 fL 09/20/2025 5:15 AM EDT [facility] Whole Blood 09/20/2025 4:16 AM EDT 09/20/2025 4:23 AM EDT us Liezt Hair MD LAB BLOOD ORDERABLES Final Res ult [facility] [address] * (ABNORMAL) Renal Function Panel w/EGFR (09/20/2025 4:16 AM EDT) Pathologist [facility] Sodium 137 133 - 146 mmol/L 09/20/2025 5:25 AM EDT [facility] Potassium 3.8 3.5 - 5.3 mmol/L 09/20/2025 5:25 AM EDT [facility] Chloride 105 98 - 110 mmol/L 09/20/2025 5:25 AM EDT [facility] CO2 24 21 - 33 mmol/L 09/20/2025 5:25 AM EDT [facility] Comment:High lactate dehydro genase concentrations in patient samples may cause falsely increased bicarbonate results. If markedly elevated LDH is observed or suspected, please assess results in conjunction with patient`s clinical presentation. In cases of discrepant results, consider evaluating CO2 in with a blood gas order. Anion Gap 8 3 - 16 mmol/L 09/20/2025 5:25 AM EDT [facility] BUN 3(L) 7 - 25 mg/dL 09/20/2025 5:25 AM EDT [facility] Creatinine 0.46(L) 0.60 - 1.30 mg/dL 09/20/2025 5:25 AM EDT [facility] Glucose 100 70 - 100 mg/dL 09/20/2025 5:25 AM EDT [facility] Calcium 8.1(L) 8.6 - 10.3 mg/dL 09/20/2025 5:25 AM EDT [facility] Phosphorus 4.1 2.1 - 4.5 mg/dL 09/20/2025 5:25 AM EDT [facility] Albumin 2.7(L) 3.5 - 5.7 g/dL 09/20/2025 5:25 AM EDT [facility] Osmolality, Calculated 281 278 - 305 mOsm/kg 09/20/2025 5:25 AM EDT [facility] EGFR >90 09/20/2025 5:25 AM EDT [facility] Comment: As of 2022, the estimated [...] will be reported as >90mL/min/1.73m2. Reference: Regan Muniz, Rebeka M, Yvonne DC, Mata ND, Pancho [...] renal disease. For additional information: www.[email or web address] Plasma 09/20/2025 4:16 AM EDT 09/20/2025 4:23 AM EDT Lizet Hair MD LAB BLOOD ORDERABLES Final Res ult [facility] [address] [facility] * Magnesium (09/20/2025 4:16 AM EDT) Magnesium 1.7 1.5 - 2.5 mg/dL 09/20/2025 5:25 AM EDT [facility] Plasma 09/20/2025 4:16 AM EDT 09/20/2025 4:23 AM EDT Lizet Hair MD LAB BLOOD ORDERABLES Final Res ult Performing Organization Address City/[facility] Co de Phone Number [facility] [address] [facility] * Insert PICC line (09/19/2025 4:48 PM EDT) Narrative Beatrice Espinal RN - 09/19/2025 4:48 PM EDT Beatrice Espinal RN 09/19/2025 4:50 PM Insert PICC line Date/Time: 09/19/2025 4:48 PM Performed by: Beatrice Espinal RN Authorized by: Marisol Lovett MD [place] Protocol: Verbal consent obtained?: Yes Written consent [...] time out verifies correct patient, procedure, equipment, account support manager and site/side marked as required: Preparation: Preparation: [...] access. Written materials left at the bedside. RUE SL PICC, 46/0, Brachial. Guidewire removed post PICC placement: Yes us Marisol Lovett MD IV THERAPY ORDERABLE S Final Result * (ABNORMAL) CBC (09/19/2025 6:50 AM EDT) WBC 10.0 3.8 - 10.8 10E3/uL 09/19/2025 7:19 AM EDT [facility] RBC 2.79(L) 3.80 - 5.10 10E6/uL 09/19/2025 7:19 AM EDT [facility] Hemoglobin 8.4(L) 11.7 - 15.5 g/dL 09/19/2025 7:19 AM EDT [facility] Hematocrit 25.5(L) 35.0 - 45.0 % 09/19/2025 7:19 AM EDT [facility] MCV 91.4 80.0 - 100.0 fL 09/19/2025 7:19 AM EDT [facility] MCH 30.0 27.0 - 33.0 pg 09/19/2025 7:19 AM EDT [facility] MCHC 32.8 32.0 - 36.0 g/dL 09/19/2025 7:19 AM EDT [facility] RDW 19.1(H) 11.0 - 15.0 % 09/19/2025 7:19 AM EDT [facility] Platelets 238 140 - 400 10E3/uL 09/19/2025 7:19 AM EDT [facility] MPV 8.6 7.5 - 11.5 fL 09/19/2025 7:19 AM EDT [facility] Whole Blood 09/19/2025 6:50 AM EDT 09/19/2025 7:05 AM EDT us Lizet Hair MD LAB BLOOD ORDERABLES Final Res ult [facility] [address] [place], [place] [address] * (ABNORMAL) Renal Function Panel w/EGFR (09/19/2025 6:50 AM EDT) Sodium 135 133 - 146 mmol/L 09/19/2025 8:01 AM EDT [facility] Potassium 4.3 3.5 - 5.3 mmol/L 09/19/2025 8:01 AM EDT [facility] Comment:Hemolysis Present: R esults may be influenced artificially. Recommend recollection as clinically indicated. Chloride 106 98 - 110 mmol/L 09/19/2025 8:01 AM EDT [facility] CO2 18(L) 21 - 33 mmol/L 09/19/2025 8:01 AM EDT [facility] Comment:High lactate dehydro genase concentrations in patient samples may cause falsely increased bicarbonate results. If markedly elevated LDH is observed or suspected, please assess results in conjunction with patient`s clinical presentation. In cases of discrepant results, consider evaluating CO2 in with a blood gas order. Anion Gap 11 3 - 16 mmol/L 09/19/2025 8:01 AM EDT [facility] BUN 6(L) 7 - 25 mg/dL 09/19/2025 8:01 AM EDT [facility] Creatinine 0.42(L) 0.60 - 1.30 mg/dL 09/19/2025 8:01 AM EDT [facility] Glucose 98 70 - 100 mg/dL 09/19/2025 8:01 AM EDT [facility] Calcium 7.7(L) 8.6 - 10.3 mg/dL 09/19/2025 8:01 AM EDT [facility] Phosphorus 3.7 2.1 - 4.5 mg/dL 09/19/2025 8:01 AM EDT [facility] Albumin 2.6(L) 3.5 - 5.7 g/dL 09/19/2025 8:01 AM EDT [facility] Osmolality, Calculated 278 278 - 305 mOsm/kg 09/19/2025 8:01 AM EDT [facility] EGFR >90 09/19/2025 8:01 AM EDT [facility] Comment: As of 2022, the estimated GFR is calculated using the 2020 Chronic Kidney Disease Epidemiology Collaboration (CKD-EPI) equation. In line with the NKF-ASN Task Force Recommendations, this equation does not include a coefficient for race. A single eGFR value is calculated for each patient. The reference interval is >60 mL/min/1.73m2. eGFR values greater than 90 will be reported as >90mL/min/1.73m2. Reference: Regna C, Rebeka M, Yvonne DC, Mata ND, [...] renal disease. For additional information: www.[email or web address].org Plasma 09/19/2025 6:50 AM EDT 09/19/2025 7:05 AM EDT us Lizet Hair MD LAB BLOOD ORDERABLES Final Res ult [facility] [address] * Magnesium (09/19/2025 6:50 AM EDT) Magnesium 1.6 1.5 - 2.5 mg/dL 09/19/2025 8:01 AM EDT [facility] Plasma 09/19/2025 6:50 AM EDT 09/19/2025 7:05 AM EDT us Lizet Hair MD LAB BLOOD ORDERABLES Final Res ult [facility] [address] [facility] * (ABNORMAL) Sed Rate (09/18/2025 3:24 PM EDT) Sed Rate 106(H) 0 - 30 mm/hr 09/18/2025 4:26 PM EDT [facility] Whole Blood 09/18/2025 3:24 PM EDT 09/18/2025 3:29 PM EDT Madeleine Phillips MD LAB BLOOD ORDERABLES Final Res ult Performing Organization Address City/[facility]/ZIP Co de Phone Number [facility] [address] [facility] * (ABNORMAL) Differential (09/18/2025 3:24 PM EDT) Scan Result PERFORMED 09/18/2025 4:35 PM EDT [facility] Neutrophils Relative 76.0 40.0 - 80.0 % 09/18/2025 4:35 PM EDT [facility] Lymphocytes Relative 8.0(L) 15.0 - 45.0 % 09/18/2025 4:35 PM EDT [facility] Atypical Lymphocytes Relative 1.0 0.0 - 9.0 % 09/18/2025 4:35 PM EDT [facility] Comment:Atypical lymphocyte( s)= reactive, benign, viral lymphocyte(s) Monocytes Relative 14.0(H) 0.0 - 12.0 % 09/18/2025 4:35 PM EDT [facility] Eosinophils Relative 1.0 0.0 - 8.0 % 09/18/2025 4:35 PM EDT [facility] Basophils Relative 0.0 0.0 - 1.0 % 09/18/2025 4:35 PM EDT [facility] Neutrophils Absolute 6,916 1,520 - 8,640 /uL 09/18/2025 4:35 PM EDT [facility] Lymphocytes Absolute 819 570 - 4,860 /uL 09/18/2025 4:35 PM EDT [facility] Monocytes Absolute 1,274 0 - 1,296 /uL 09/18/2025 4:35 PM EDT [facility] Eosinophils Absolute 91 0 - 864 /uL 09/18/2025 4:35 PM EDT [facility] Basophils Absolute 0 0 - 108 /uL 09/18/2025 4:35 PM EDT [facility] Whole Blood 09/18/2025 3:24 PM EDT 09/18/2025 3:29 PM EDT Narrative [facility] - 09/18/2025 4:35 PM EDT Manual WBC differential performed per review criteria approved by the medical lab assistant. us Pritesh Mosquera DO LAB BLOOD ORDERABLES Final Resu lt [facility] [address] [place] [address], [facility] * (ABNORMAL) CBC (09/18/2025 3:24 PM EDT) WBC 9.1 3.8 - 10.8 10E3/uL 09/18/2025 4:35 PM EDT [facility] RBC 3.06(L) 3.80 - 5.10 10E6/uL 09/18/2025 4:35 PM EDT [facility] Hemoglobin 9.1(L) 11.7 - 15.5 g/dL 09/18/2025 4:35 PM EDT [facility] Hematocrit 27.3(L) 35.0 - 45.0 % 09/18/2025 4:35 PM EDT [facility] MCV 89.2 80.0 - 100.0 fL 09/18/2025 4:35 PM EDT [facility] MCH 29.8 27.0 - 33.0 pg 09/18/2025 4:35 PM EDT [facility] MCHC 33.4 32.0 - 36.0 g/dL 09/18/2025 4:35 PM EDT [facility] RDW 18.4(H) 11.0 - 15.0 % 09/18/2025 4:35 PM EDT [facility] Platelets 266 140 - 400 10E3/uL 09/18/2025 4:35 PM EDT [facility] Platelet Estimate ADEQ 09/18/2025 4:35 PM EDT [facility] Large Platelets PRES 4:35 PM EDT [facility] MPV 8.4 7.5 - 11.5 fL 09/18/2025 4:35 PM EDT [facility] Whole Blood 09/18/2025 3:24 PM EDT 09/18/2025 3:29 PM EDT Narrative [facility] - 09/18/2025 4:35 PM EDT Peripheral blood smear was scanned per review criteria approved by the laboratory medical lab assistant. Pritesh Mosquera DO LAB BLOOD ORDERABLES Final Resu lt Performing Organization Address City/[facility] Co de Phone Number [facility] [address] [facility] * Protime-INR (09/18/2025 3:24 PM EDT) Protime 12.9 12.1 - 15.1 seconds 09/18/2025 4:14 PM EDT [facility] INR 0.9 0.9 - 1.1 09/18/2025 4:14 PM EDT [facility] Comment: RECOMMENDED THERAPEUTIC RANGES USING INR : Stable oral anticoagulant therapy: 2.0 - 3.0 Mechanical prosthetic heart valve: 2.5 - 3.5 Recurrent acute myocardial infarction: 2.5 - 3.5 Plasma 09/18/2025 3:24 PM EDT 09/18/2025 3:29 PM EDT Pritesh Mosquera DO LAB BLOOD ORDERABLES Final Resu lt Performing Organization Address City/[facility]/ZIP Co de Phone Number [facility] [address] [facility] * (ABNORMAL) C-Reactive Protein (09/18/2025 4:05 AM EDT) CRP 172.8(H) 1.0 - 10.0 mg/L 09/18/2025 5:17 AM EDT [facility] Plasma 09/18/2025 4:05 AM EDT 09/18/2025 4:21 AM EDT us Madeleine Phillips MD LAB BLOOD ORDERABLES Final Res ult [facility] [address] * Magnesium (09/18/2025 4:05 AM EDT) Magnesium 2.2 1.5 - 2.5 mg/dL 09/18/2025 5:17 AM EDT [facility] Plasma 09/18/2025 4:05 AM EDT 09/18/2025 4:21 AM EDT us Pritesh Demetri [facility] LAB BLOOD ORDERABLES Final Resu lt Performing Organization Address [facility] Co de Phone Number [facility] [address] [facility]. [address] * (ABNORMAL) Renal Function Panel w/EGFR (09/18/2025 4:05 AM EDT) Sodium 134 133 - 146 mmol/L 09/18/2025 5:17 AM EDT [facility] Potassium 4.2 3.5 - 5.3 mmol/L 09/18/2025 5:17 AM EDT [facility] Comment:Hemolysis Present: R esults may be influenced artificially. Recommend recollection as clinically indicated. Chloride 106 98 - 110 mmol/L 09/18/2025 5:17 AM EDT [facility] CO2 17(L) 21 - 33 mmol/L 09/18/2025 5:17 AM EDT [facility] Comment:High lactate dehydro genase concentrations in patient samples may cause falsely increased bicarbonate results. If markedly elevated LDH is observed or suspected, please assess results in conjunction with patient`s clinical presentation. In cases of discrepant results, consider evaluating CO2 in with a blood gas order. Anion Gap 11 3 - 16 mmol/L 09/18/2025 5:17 AM EDT [facility] BUN 6(L) 7 - 25 mg/dL 09/18/2025 5:17 AM EDT [facility] Creatinine 0.50(L) 0.60 - 1.30 mg/dL 09/18/2025 5:17 AM EDT [facility] Glucose 84 70 - 100 mg/dL 09/18/2025 5:17 AM EDT [facility] Calcium 7.3(L) 8.6 - 10.3 mg/dL 09/18/2025 5:17 AM EDT [facility] Phosphorus 2.5 2.1 - 4.5 mg/dL 09/18/2025 5:17 AM EDT [facility] Albumin 2.7(L) 3.5 - 5.7 g/dL 09/18/2025 5:17 AM EDT [facility] Osmolality, Calculated 275(L) 278 - 305 mOsm/kg 09/18/2025 5:17 AM EDT [facility] EGFR >90 09/18/2025 5:17 AM EDT [facility] Comment: As of 2022, the estimated [...] renal disease. For additional information: www.kidney.org Plasma 09/18/2025 4:05 AM EDT 09/18/2025 4:21 AM EDT us Pritesh Demetri DO LAB BLOOD ORDERABLES Final Resu lt [facility] [address] * (ABNORMAL) Hepatic Function Panel (09/18/2025 4:05 AM EDT) Total Bilirubin 0.8 0.0 - 1.5 mg/dL 09/18/2025 5:17 AM EDT [facility] Bilirubin, Direct 0.28 0.00 - 0.40 mg/dL 09/18/2025 5:17 AM EDT [facility] Comment:HEMOLYSIS EVIDENT. D IRECT BILIRUBIN CONCENTRATIONS MAY BE FALSELY DECREASED IN THE PRESENCE OF HEMOLYSIS. INTERPRET WITH CAUTION. AST 51(H) 13 - 39 U/L 09/18/2025 5:17 AM EDT [facility] ALT 51 7 - 52 U/L 09/18/2025 5:17 AM EDT [facility] Alkaline Phosphatase 405(H) 36 - 125 U/L 09/18/2025 5:17 AM EDT [facility] Total Protein 5.8(L) 6.4 - 8.9 g/dL 09/18/2025 5:17 AM EDT [facility] Albumin 2.7(L) 3.5 - 5.7 g/dL 09/18/2025 5:17 AM EDT [facility] Bilirubin, Indirect 0.52 0.00 - 1.10 mg/dL 09/18/2025 5:17 AM EDT [facility] Plasma 09/18/2025 4:05 AM EDT 09/18/2025 4:21 AM EDT us Pritesh Mosquera DO LAB BLOOD ORDERABLES Final Resu lt [facility] [address] [facility]. [address] * Blood culture-Peripheral (Blood) (09/17/2025 4:37 PM EDT) Culture Result No Growth After 5 Days [facility] Blood BLOOD SPECIMEN / Unknown 09/17/2025 4:37 PM EDT 09/17/2025 5:38 PM EDT Narrative [facility] - 09/22/2025 5:45 PM EDT Suboptimal volume of blood received. Interpret results with caution. us Lizet Hair MD MICROBIOLOGY - GENERAL ORDERAB LES Final Result [facility] [address] * Blood culture-Peripheral (Blood) (09/17/2025 4:37 PM EDT) Culture Result No Growth After 5 Days [facility] Blood BLOOD SPECIMEN / Unknown 09/17/2025 4:37 PM EDT 09/17/2025 5:39 PM EDT Narrative [facility] - 09/22/2025 5:45 PM EDT Suboptimal volume of blood received. Interpret results with caution. us Lizet Hair MD MICROBIOLOGY - GENERAL ORDERAB LES Final Result Performing Organization Address City/[facility] Co de Phone Number [facility] [address] [place] [address]. [address] * (ABNORMAL) Differential (09/17/2025 6:27 AM EDT) Neutrophils Relative 87.3(H) 40.0 - 80.0 % 09/17/2025 6:52 AM EDT [facility] Lymphocytes Relative 5.9(L) 15.0 - 45.0 % 09/17/2025 6:52 AM EDT [facility] Monocytes Relative 6.5 0.0 - 12.0 % 09/17/2025 6:52 AM EDT [facility] Eosinophils Relative 0.2 0.0 - 8.0 % 09/17/2025 6:52 AM EDT [facility] Basophils Relative 0.1 0.0 - 1.0 % 09/17/2025 6:52 AM EDT [facility] nRBC 0 0 - 0 /100 WBC 09/17/2025 6:52 AM EDT [facility] Neutrophils Absolute 14,754(H) 1,520 - 8,640 /uL 09/17/2025 6:52 AM EDT [facility] Lymphocytes Absolute 997 570 - 4,860 /uL 09/17/2025 6:52 AM EDT [facility] Monocytes Absolute 1,099 0 - 1,296 /uL 09/17/2025 6:52 AM EDT [facility] Eosinophils Absolute 34 0 - 864 /uL 09/17/2025 6:52 AM EDT [facility] Basophils Absolute 17 0 - 108 /uL 09/17/2025 6:52 AM EDT [facility] Whole Blood 09/17/2025 6:27 AM EDT 09/17/2025 6:33 AM EDT us Pritesh Mosquera DO LAB BLOOD ORDERABLES Final Resu lt [facility] [address] [place] [address], [facility] * (ABNORMAL) CBC (09/17/2025 6:27 AM EDT) WBC 16.9(H) 3.8 - 10.8 10E3/uL 09/17/2025 6:52 AM EDT [facility] RBC 2.90(L) 3.80 - 5.10 10E6/uL 09/17/2025 6:52 AM EDT [facility] Hemoglobin 8.4(L) 11.7 - 15.5 g/dL 09/17/2025 6:52 AM EDT [facility] Hematocrit 25.9(L) 35.0 - 45.0 % 09/17/2025 6:52 AM EDT [facility] MCV 89.1 80.0 - 100.0 fL 09/17/2025 6:52 AM EDT [facility] MCH 28.8 27.0 - 33.0 pg 09/17/2025 6:52 AM EDT [facility] MCHC 32.4 32.0 - 36.0 g/dL 09/17/2025 6:52 AM EDT [facility] RDW 18.5(H) 11.0 - 15.0 % 09/17/2025 6:52 AM EDT [facility] Platelets 282 140 - 400 10E3/uL 09/17/2025 6:52 AM EDT [facility] MPV 8.6 7.5 - 11.5 fL 09/17/2025 6:52 AM EDT [facility] Whole Blood 09/17/2025 6:27 AM EDT 09/17/2025 6:33 AM EDT us Pritesh Mosquera DO LAB BLOOD ORDERABLES Final Resu lt [facility] [address] [facility] * Magnesium (09/17/2025 6:27 AM EDT) Magnesium 1.7 1.5 - 2.5 mg/dL 09/17/2025 7:15 AM EDT [facility] Plasma 09/17/2025 6:27 AM EDT 09/17/2025 6:33 AM EDT Pritesh Mosquera DO LAB BLOOD ORDERABLES Final Resu lt Performing Organization Address [facility] Co de Phone Number [facility] [address] [facility]. [address] * (ABNORMAL) Renal Function Panel w/EGFR (09/17/2025 6:27 AM EDT) Sodium 139 133 - 146 mmol/L 09/17/2025 7:15 AM EDT [facility] Potassium 3.3(L) 3.5 - 5.3 mmol/L 09/17/2025 7:15 AM EDT [facility] Chloride 106 98 - 110 mmol/L 09/17/2025 7:15 AM EDT [facility] CO2 23 21 - 33 mmol/L 09/17/2025 7:15 AM EDT [facility] Comment:High lactate dehydro genase concentrations in patient samples may cause falsely increased bicarbonate results. If markedly elevated LDH is observed or suspected, please assess results in conjunction with patient`s clinical presentation. In cases of discrepant results, consider evaluating CO2 in with a blood gas order. Anion Gap 10 3 - 16 mmol/L 09/17/2025 7:15 AM EDT [facility] BUN 10 7 - 25 mg/dL 09/17/2025 7:15 AM EDT [facility] Creatinine 0.56(L) 0.60 - 1.30 mg/dL 09/17/2025 7:15 AM EDT [facility] Glucose 95 70 - 100 mg/dL 09/17/2025 7:15 AM EDT [facility] Calcium 7.9(L) 8.6 - 10.3 mg/dL 09/17/2025 7:15 AM EDT [facility] Phosphorus 1.6(L) 2.1 - 4.5 mg/dL 09/17/2025 7:15 AM EDT [facility] Albumin 2.5(L) 3.5 - 5.7 g/dL 09/17/2025 7:15 AM EDT [facility] Osmolality, Calculated 287 278 - 305 mOsm/kg 09/17/2025 7:15 AM EDT [facility] EGFR >90 09/17/2025 7:15 AM EDT [facility] Comment: As of 2022, the estimated [...] renal disease. For additional information: www.kidney.org Plasma 09/17/2025 6:27 AM EDT 09/17/2025 6:33 AM EDT us Pritesh Demetri DO LAB BLOOD ORDERABLES Final Resu lt [facility] [address] * Protime-INR (09/17/2025 6:27 AM EDT) Protime 12.1 12.1 - 15.1 seconds 09/17/2025 6:56 AM EDT [facility] INR 0.9 0.9 - 1.1 09/17/2025 6:56 AM EDT [facility] Comment: RECOMMENDED THERAPEUTIC RANGES USING INR : Stable oral anticoagulant therapy: 2.0 - 3.0 Mechanical prosthetic heart valve: 2.5 - 3.5 Recurrent acute myocardial infarction: 2.5 - 3.5 Plasma 09/17/2025 6:27 AM EDT 09/17/2025 6:33 AM EDT us Pritesh Demetri DO LAB BLOOD ORDERABLES Final Resu lt [facility] [address] [facility]. [address] * (ABNORMAL) Hepatic Function Panel (09/17/2025 6:27 AM EDT) Total Bilirubin 0.8 0.0 - 1.5 mg/dL 09/17/2025 7:15 AM EDT [facility] Bilirubin, Direct 0.34 0.00 - 0.40 mg/dL 09/17/2025 7:15 AM EDT [facility] AST 63(H) 13 - 39 U/L 09/17/2025 7:15 AM EDT [facility] ALT 63(H) 7 - 52 U/L 09/17/2025 7:15 AM EDT [facility] Alkaline Phosphatase 391(H) 36 - 125 U/L 09/17/2025 7:15 AM EDT [facility] Total Protein 5.4(L) 6.4 - 8.9 g/dL 09/17/2025 7:15 AM EDT [facility] Albumin 2.5(L) 3.5 - 5.7 g/dL 09/17/2025 7:15 AM EDT [facility] Bilirubin, Indirect 0.46 0.00 - 1.10 mg/dL 09/17/2025 7:15 AM EDT [facility] Plasma 09/17/2025 6:27 AM EDT 09/17/2025 6:33 AM EDT us Pritesh Mosquera DO LAB BLOOD ORDERABLES Final Resu lt Performing Organization Address City/[facility]/ZIP Co de Phone Number [facility] [address] [facility] * YAHAIRA Rhythm Strip - Scan (09/16/2025 11:30 PM EDT) us Scanning Uchhim SCAN DOCS - NO RESULTS Final Res ult * POC Glucose Monitoring Device (09/16/2025 4:13 PM EDT) [facility] POC Glucose Monitoring Device 99 70 - 100 mg/dL 09/16/2025 4:14 PM EDT [facility] Blood 09/16/2025 4:13 PM EDT 09/16/2025 4:14 PM EDT us Willem Shin DO POINT OF CARE TEST ORDERABLE S Final Result Performing Organization Address [facility]/ZIP Co de Phone Number [facility] [address] [facility]. [address] * (ABNORMAL) Venous Blood Gas, Line/Syringe, STAT (09/16/2025 4:13 PM EDT) PH-Line Draw 7.34 7.32 - 7.42 09/16/2025 4:22 PM EDT [facility] PCO2-Line Draw 37(L) 41 - 51 mm Hg 09/16/2025 4:22 PM EDT [facility] PO2-Line Draw 40 25 - 40 mm Hg 09/16/2025 4:22 PM EDT [facility] HCO3-Line Draw 20(L) 24 - 28 mmol/L 09/16/2025 4:22 PM EDT [facility] CO2 Content-Line Draw 21(L) 25 - 29 mmol/L 09/16/2025 4:22 PM EDT [facility] Base Excess-Line Draw -5.3(L) -2.0 - 3.0 mmol/L 09/16/2025 4:22 PM EDT [facility] %HBO2-Line Draw 73.4(H) 40.0 - 70.0 % 09/16/2025 4:22 PM EDT [facility] Carboxyhgb-Joi e Draw 1.2 % 09/16/2025 4:22 PM EDT [facility] Comment: CARBOXYHEMOGLOBIN (CO) REFERENCE RANGES: Non-Smokers: <2 % Smokers: <8 % TOXIC: >20 % Methemoglobin- Line Draw 0.0 0.0 - 1.5 % 09/16/2025 4:22 PM EDT [facility] Reduced Hemoglobin-Joi e Draw 25.5(H) 0.0 - 5.0 % 09/16/2025 4:22 PM EDT [facility] Venous, Line Draw 09/16/2025 4:13 PM EDT 09/16/2025 4:18 PM EDT us Pritesh Mosquera DO LAB BLOOD ORDERABLES Final Resu lt [facility] [address] * YAHAIRA Rhythm Strip - Scan (09/16/2025 10:45 AM EDT) us Scanning Uchhim SCAN DOCS - NO RESULTS Final Res ult * (ABNORMAL) Hepatic Function Panel (09/16/2025 3:44 AM EDT) Total Bilirubin 1.2 0.0 - 1.5 mg/dL 09/16/2025 5:11 AM EDT [facility] Bilirubin, Direct 0.69(H) 0.00 - 0.40 mg/dL 09/16/2025 5:11 AM EDT [facility] AST 121(H) 13 - 39 U/L 09/16/2025 5:11 AM EDT [facility] ALT 84(H) 7 - 52 U/L 09/16/2025 5:11 AM EDT [facility] Alkaline Phosphatase 431(H) 36 - 125 U/L 09/16/2025 5:11 AM EDT [facility] Total Protein 5.3(L) 6.4 - 8.9 g/dL 09/16/2025 5:11 AM EDT [facility] Albumin 2.5(L) 3.5 - 5.7 g/dL 09/16/2025 5:11 AM EDT [facility] Bilirubin, Indirect 0.51 0.00 - 1.10 mg/dL 09/16/2025 5:11 AM EDT [facility] Plasma 09/16/2025 3:44 AM EDT 09/16/2025 4:11 AM EDT Wendie Valentin MD LAB BLOOD ORDERABLES Final Re sult Performing Organization Address [facility] Co de Phone Number [facility] [address] * Protime-INR (09/16/2025 3:44 AM EDT) Protime 14.4 12.1 - 15.1 seconds 09/16/2025 4:24 AM EDT [facility] INR 1.1 0.9 - 1.1 09/16/2025 4:24 AM EDT [facility] Comment: RECOMMENDED THERAPEUTIC RANGES USING INR : Stable oral anticoagulant therapy: 2.0 - 3.0 Mechanical prosthetic heart valve: 2.5 - 3.5 Recurrent acute myocardial infarction: 2.5 - 3.5 Plasma 09/16/2025 3:44 AM EDT 09/16/2025 4:11 AM EDT Wendie Valentin MD LAB BLOOD ORDERABLES Final Re sult Performing Organization Address [facility] Co de Phone Number [facility] [address] * (ABNORMAL) Renal Function Panel w/EGFR (09/16/2025 3:44 AM EDT) Sodium 135 133 - 146 mmol/L 09/16/2025 5:11 AM EDT [facility] Potassium 3.5 3.5 - 5.3 mmol/L 09/16/2025 5:11 AM [facility] Chloride 106 98 - 110 mmol/L 09/16/2025 5:11 AM [facility] CO2 20(L) 21 - 33 mmol/L 09/16/2025 5:11 AM [facility] Comment:High lactate dehydro genase concentrations in patient samples may cause falsely increased bicarbonate results. If markedly elevated LDH is observed or suspected, please assess results in conjunction with patient`s clinical presentation. In cases of discrepant results, consider evaluating CO2 in with a blood gas order. Anion Gap 9 3 - 16 mmol/L 09/16/2025 5:11 AM [facility] BUN 18 7 - 25 mg/dL 09/16/2025 5:11 AM [facility] Creatinine 0.75 0.60 - 1.30 mg/dL 09/16/2025 5:11 AM [facility] Glucose 89 70 - 100 mg/dL 09/16/2025 5:11 AM [facility] Calcium 6.9(L) 8.6 - 10.3 mg/dL 09/16/2025 5:11 AM [facility] Phosphorus 2.8 2.1 - 4.5 mg/dL 09/16/2025 5:11 AM [facility] Albumin 2.5(L) 3.5 - 5.7 g/dL 09/16/2025 5:11 AM [facility] Osmolality, Calculated 281 278 - 305 mOsm/kg 09/16/2025 5:11 AM [facility] EGFR 88 09/16/2025 5:11 AM [facility] Comment:As of 2022, the estimated [...] Yvonne DC, Mata [place], Pancho [place], Sherri GRANT, et al. A Unifying Approach for GFR Estimation: Recommendations of the NKF-ASN Task Force on Reassessing the inclusion of Race in Diagnosing Kidney Disease. Am J Kidney Dis. 2020. Plasma 09/16/2025 3:44 AM EDT 09/16/2025 4:11 AM EDT Tillen Eddie [employer] SCENE PHOTOGRAPHER LAB BLOOD ORDERABLES Final Resu lt Performing Organization Address City/[facility]/ZIP Co de Phone Number [facility] [address] [facility] * (ABNORMAL) Magnesium (09/16/2025 3:44 AM EDT) Magnesium 2.6(H) 1.5 - 2.5 mg/dL 09/16/2025 5:11 AM EDT [facility] Plasma 09/16/2025 3:44 AM EDT 09/16/2025 4:11 AM EDT us [facility] Eddie CRIME SCENE PHOTOGRAPHER LAB BLOOD ORDERABLES Final Resu lt Performing Organization Address [facility]/ZIP Co de Phone Number [facility] [address] [facility] * (ABNORMAL) CBC (09/16/2025 3:44 AM EDT) WBC 24.7(H) 3.8 - 10.8 10E3/uL 09/16/2025 5:18 AM EDT [facility] RBC 2.86(L) 3.80 - 5.10 10E6/uL 09/16/2025 5:18 AM EDT [facility] Hemoglobin 8.1(L) 11.7 - 15.5 g/dL 09/16/2025 5:18 AM EDT [facility] Hematocrit 25.3(L) 35.0 - 45.0 % 09/16/2025 5:18 AM EDT [facility] MCV 88.6 80.0 - 100.0 fL 09/16/2025 5:18 AM EDT [facility] MCH 28.4 27.0 - 33.0 pg 09/16/2025 5:18 AM EDT [facility] MCHC 32.1 32.0 - 36.0 g/dL 09/16/2025 5:18 AM EDT [facility] RDW 18.7(H) 11.0 - 15.0 % 09/16/2025 5:18 AM EDT [facility] Platelets 283 140 - 400 10E3/uL 09/16/2025 5:18 AM EDT [facility] Comment: _Platelet Morphology Normal _Platelets Appear Adequate MPV 8.7 7.5 - 11.5 fL 09/16/2025 5:18 AM EDT [facility] Whole Blood 09/16/2025 3:44 AM EDT 09/16/2025 4:11 AM EDT us Miguel Morgan [facility] LAB BLOOD ORDERABLES Final Resu lt [facility] [address] [place] [address], [facility] * MRI Cholangiopancreatography (09/16/2025 12:26 AM EDT) [...] Whitley MD at 09/16/2025 6:57 AM EDT Wendie Valentin MD IMG MRI ORDERABLES Final Resu lt * (ABNORMAL) Gamma GT (09/15/2025 3:07 PM EDT) GGT 358(H) 9 - 64 U/L 09/15/2025 4:11 PM EDT [facility] Serum 09/15/2025 3:07 PM EDT 09/15/2025 3:18 PM EDT Wendie Valentin MD LAB BLOOD ORDERABLES Final Re sult Performing Organization Address [facility] Co de Phone Number [facility] [address] [facility] * (ABNORMAL) Haptoglobin (09/15/2025 3:07 PM EDT) Haptoglobin 243(H) 44 - 215 mg/dL 09/15/2025 4:11 PM EDT [facility] Serum 09/15/2025 3:07 PM EDT 09/15/2025 3:18 PM EDT Result [facility] Wendie Valentin MD LAB BLOOD ORDERABLES Final Re sult Performing Organization Address [facility] Co de Phone Number [facility] [address] * (ABNORMAL) Lactate Dehydrogenase (09/15/2025 3:07 PM EDT) LD 354(H) 110 - 270 U/L 09/15/2025 4:11 PM EDT [facility] Plasma 09/15/2025 3:07 PM EDT 09/15/2025 3:18 PM EDT Wendie Valentin MD LAB BLOOD ORDERABLES Final Re sult Performing Organization Address [facility] Co de Phone Number [facility] [address] [place] [address], [facility] * X-ray Portable Chest (09/15/2025 3:03 PM EDT) Anatomical Region Laterality Modality Chest [...] at 09/15/2025 2:38 PM EDT us Wendie Valentin MD IMG US ORDERABLES Final Resul t * Insert Arterial Line (09/15/2025 2:18 PM EDT) Monty Hicks MD - 09/15/2025 2:18 PM EDT Monty Mahan MD 09/15/2025 4:29 PM Insert Arterial Line Date/Time: 09/15/2025 2:18 PM Performed by: Tur Benavides MD Authorized by: Tru Benavides MD Consent: Consent obtained: Written Consent given by: Spouse Risks, benefits, and alternatives were discussed: yes Risks discussed: Bleeding, ischemia, pain, infection and repeat procedure [place] protocol: Patient identity confirmed: Verbally with patient, [...] Line Date/Time: 09/15/2025 1:49 PM Performed by: Ana Gonzalez PAConsent: Verbal consent obtained. Written consent obtained Risks [...] to verify the correct patient, procedure, equipment, account support manager and site/side marked as required. Catheter type: [...] chest x-ray ordered: yes Complications: none Ana Lisa LANG PROCEDURE/MINOR SURGICAL ORDERAB LES Final Result * Vancomycin, random (09/15/2025 9:34 AM EDT) Vancomycin Random 16.3 ug/mL 09/15/2025 10:09 AM EDT [facility] Comment:Reference range not established for this test. Plasma 09/15/2025 9:34 AM EDT 09/15/2025 9:36 AM EDT Carlos Fletcher PharmD LAB BLOOD ORDERABLES Final Result Performing Organization Address City/State/[facility] Co de Phone Number [facility] [address] [place] [address] * ECHO COMPLETE W/ CONTRAST (09/15/2025 8:42 AM EDT) Anatomical Region Laterality Modality Chest Ultrasound 09/15/2025 7:58 AM EDT Narrative 09/15/2025 9:24 AM EDT * [facility]* [address] [place] [address] Transthoracic Echocardiogram Patient: Laura Mallory Room: [facility] Height: 65in MR Number: [id number] : 1960 Weight: 232lb Account: [id number] Gender: F BP: 99 / 57 Study Date: 09/15/2025 Age: 65 BSA: 2.11m^2 Referring physician: Nieves Bryant Interpreting physician: Sarthak Lerma MD PERFORMING Sarthak Lerma MD COUNTER TOP ASSEMBLERGABBY Guillaume ORDERING Jonathan, Nieves REFERRING Jonathan, Nieves ATTENDING Monty Mahan ADMITTING Aleida Willem Marquezn Procedure:TRANSTHORACIC ECHO (TTE) Order: Accession COMPLETE Number:[id number] Indications: Cardiomyopathy- Unspecified (I42.9). PMH: Coronary artery [...] darrick, 0.35 -------- 0.88 TDI S', lat darirck, TDI 17.9 cm/sec -------- 13.6 E', med [...] 0.84 m/sec -------- 0.57 Left atrium Value [facility] 05/26/2025 Area ES, A4C (N) 16 cm^2 [...] 17 ml/m^2 16 34 Aortic valve Value [facility] 05/26/2025 Peak v, S 1.7 m/sec -------- [...] Reviewed and confirmed by Sarthak Lerma MD [id number] Procedure Note Sarthak Lerma MD - 09/15/2025 * [facility]* [address] [place] [id number] Transthoracic Echocardiogram Patient: Laura Mallory Room: [facility] Height: 65in MR Number: [id number] : 1960 Weight: 232lb Account: [id number] Gender: F BP: 99 / 57 Study Date: 09/15/2025 Age: 65 BSA: 2.11m^2 Referring physician: Nieves Bryant Interpreting physician: Sarthak Lerma MD PERFORMING Sarthak Lerma MD COUNTER TOP ASSEMBLER Hannah Guillaume ORDERING Nieves Bryant REFERRING Nieves Bryant ATTENDING Monty Mahan Evan Lynn Procedure:TRANSTHORACIC ECHO (TTE) Order: Accession COMPLETE Number:[id number] Indications: Cardiomyopathy- Unspecified (I42.9). PMH: Coronary artery [...] Reviewed and confirmed by Sarthak Lerma MD [id number] us Nieves Bryant MD CV ECHO ORDERABLES Final Result * Triglycerides (09/15/2025 4:55 AM EDT) Triglycerides 96 10 - 149 mg/dL 09/15/2025 5:38 AM EDT [facility] Plasma 09/15/2025 4:55 AM EDT 09/15/2025 5:08 AM EDT us Willem Shin DO LAB BLOOD ORDERABLES Final R esult [facility] [address] * (ABNORMAL) Lipid Profile (09/15/2025 4:55 AM EDT) Non-HDL Cholesterol, Calculated 52 0 - 129 mg/dL 09/15/2025 5:38 AM EDT [facility] Comment: Desirable: < 130 mg/dL Above Desirable: 130-159 mg/dL Borderline High: 160-189 mg/dL High: 190-219 mg/dL Very High: > 219 mg/dL Cholesterol, Total 78 0 - 200 mg/dL 09/15/2025 5:38 AM EDT [facility] Triglycerides 96 10 - 149 mg/dL 09/15/2025 5:38 AM EDT [facility] HDL 26(L) 60 - 92 mg/dL 09/15/2025 5:38 AM EDT [facility] Comment: LIPID PROFILE INTERPRETATION CHOLESTEROL,TOTAL(mg/dL) DESIRABLE: [...] LDL Cholesterol 33 mg/dL 5:38 AM EDT [facility] Plasma 09/15/2025 4:55 AM EDT 09/15/2025 5:08 AM EDT Narrative [facility] - 09/15/2025 5:38 AM EDT LDL cholesterol calculated using the Friedewald equation. us Willem Shin DO LAB BLOOD ORDERABLES Final R esult [facility] [address] [place] [address], [facility] * (ABNORMAL) Renal Function Panel w/EGFR (09/15/2025 4:55 AM EDT) Sodium 134 133 - 146 mmol/L 09/15/2025 5:38 AM EDT [facility] Potassium 3.5 3.5 - 5.3 mmol/L 09/15/2025 5:38 AM EDT [facility] Chloride 103 98 - 110 mmol/L 09/15/2025 5:38 AM EDT [facility] CO2 19(L) 21 - 33 mmol/L 09/15/2025 5:38 AM EDT [facility] Comment:High lactate dehydro genase concentrations in patient samples may cause falsely increased bicarbonate results. If markedly elevated LDH is observed or suspected, please assess results in conjunction with patient`s clinical presentation. In cases of discrepant results, consider evaluating CO2 in with a blood gas order. Anion Gap 12 3 - 16 mmol/L 09/15/2025 5:38 AM EDT [facility] BUN 24 7 - 25 mg/dL 09/15/2025 5:38 AM EDT [facility] Creatinine 1.30 0.60 - 1.30 mg/dL 09/15/2025 5:38 AM EDT [facility] Glucose 105(H) 70 - 100 mg/dL 09/15/2025 5:38 AM EDT [facility] Calcium 7.7(L) 8.6 - 10.3 mg/dL 09/15/2025 5:38 AM EDT [facility] Phosphorus 3.7 2.1 - 4.5 mg/dL 09/15/2025 5:38 AM EDT [facility] Albumin 2.9(L) 3.5 - 5.7 g/dL 09/15/2025 5:38 AM EDT [facility] Osmolality, Calculated 282 278 - 305 mOsm/kg 09/15/2025 5:38 AM EDT [facility] EGFR 45 09/15/2025 5:38 AM EDT [facility] Comment:As of 2022, the estimated GFR [...] Disease. Am J Kidney Dis. 2020. Plasma 09/15/2025 4:55 AM EDT 09/15/2025 5:07 AM EDT us Nieves Bryant MD LAB BLOOD ORDERABLES Final Resul t [facility] [address] * (ABNORMAL) Magnesium (09/15/2025 4:55 AM EDT) Magnesium 4.0(H) 1.5 - 2.5 mg/dL 09/15/2025 5:38 AM EDT [facility] Plasma 09/15/2025 4:55 AM EDT 09/15/2025 5:07 AM EDT us Nieves Bryant MD LAB BLOOD ORDERABLES Final Resul t [facility] [address] * (ABNORMAL) CBC (09/15/2025 4:55 AM EDT) WBC 40.7(H) 3.8 - 10.8 10E3/uL 09/15/2025 6:58 AM EDT [facility] RBC 3.32(L) 3.80 - 5.10 10E6/uL 09/15/2025 6:58 AM EDT [facility] Hemoglobin 9.9(L) 11.7 - 15.5 g/dL 09/15/2025 6:58 AM EDT [facility] Hematocrit 30.3(L) 35.0 - 45.0 % 09/15/2025 6:58 AM EDT [facility] MCV 91.0 80.0 - 100.0 fL 09/15/2025 6:58 AM EDT [facility] MCH 29.8 27.0 - 33.0 pg 09/15/2025 6:58 AM EDT [facility] MCHC 32.7 32.0 - 36.0 g/dL 09/15/2025 6:58 AM EDT [facility] RDW 18.8(H) 11.0 - 15.0 % 09/15/2025 6:58 AM EDT [facility] Platelets 343 140 - 400 10E3/uL 09/15/2025 6:58 AM EDT [facility] Comment: Specimen checked for clots. None detected. Slide Reviewed for PLT Clumps. None Seen. Platelet Estimate ADEQ 09/15/2025 6:58 AM EDT [facility] MPV 8.4 7.5 - 11.5 fL 09/15/2025 6:58 AM EDT [facility] Whole Blood 09/15/2025 4:55 AM EDT 09/15/2025 5:07 AM EDT Narrative [facility] - 09/15/2025 6:58 AM EDT Peripheral blood smear was scanned per review criteria approved by the laboratory medical lab assistant. Nieves Bryant MD LAB BLOOD ORDERABLES Final Resul t Performing Organization Address City/[facility] Co de Phone Number [facility] [address] * (ABNORMAL) Protime-INR (09/15/2025 4:55 AM EDT) Protime 15.2(H) 12.1 - 15.1 seconds 09/15/2025 5:20 AM EDT [facility] INR 1.1 0.9 - 1.1 09/15/2025 5:20 AM EDT [facility] Comment: RECOMMENDED THERAPEUTIC RANGES USING INR : Stable oral anticoagulant therapy: 2.0 - 3.0 Mechanical prosthetic heart valve: 2.5 - 3.5 Recurrent acute myocardial infarction: 2.5 - 3.5 Plasma 09/15/2025 4:55 AM EDT 09/15/2025 5:07 AM EDT Nieves Bryant MD LAB BLOOD ORDERABLES Final Resul t [facility] [address] * (ABNORMAL) Hepatic Function Panel (09/15/2025 4:55 AM EDT) Total Bilirubin 3.3(H) 0.0 - 1.5 mg/dL 09/15/2025 5:38 AM EDT [facility] Bilirubin, Direct 2.44(H) 0.00 - 0.40 mg/dL 09/15/2025 5:38 AM EDT [facility] AST 234(H) 13 - 39 U/L 09/15/2025 5:38 AM EDT [facility] ALT 133(H) 7 - 52 U/L 09/15/2025 5:38 AM EDT [facility] Alkaline Phosphatase 499(H) 36 - 125 U/L 09/15/2025 5:38 AM EDT [facility] Total Protein 5.9(L) 6.4 - 8.9 g/dL 09/15/2025 5:38 AM EDT [facility] Albumin 2.9(L) 3.5 - 5.7 g/dL 09/15/2025 5:38 AM EDT [facility] Bilirubin, Indirect 0.86 0.00 - 1.10 mg/dL 09/15/2025 5:38 AM EDT [facility] Plasma 09/15/2025 4:55 AM EDT 09/15/2025 5:07 AM EDT Nieves Bryant MD LAB BLOOD ORDERABLES Final Resul t [facility] [address] * MRSA/Staph aureus DNA- Diagnostic Testing for Pneumonia (Nares Swab) (09/15/2025 4:55 AM EDT) Pathologist [facility] MRSA, PCR Negative Negative 09/15/2025 6:52 AM EDT [facility] Staph Aureus, PCR Negative Negative 09/15/2025 6:52 AM EDT [facility] Comment:Test method is a FDA approved amplified DNA assay. Nares Swab BOTH ANTERIOR NARES / Unknown 09/15/2025 4:55 AM EDT 09/15/2025 5:27 AM EDT Narrative [facility] - 09/15/2025 6:52 AM EDT Diagnosis of MRSA Pneumonia->Yes - Place [id number] (this order) Jd Gonzalez MD MICROBIOLOGY - GENERAL ORDERA BLES Final Result Performing Organization Address City/[facility]/ZIP Co de Phone Number [facility] [address] [place] [place] [address], [facility] * YAHAIRA Rhythm Strip - Scan (09/15/2025 3:49 AM EDT) us Scanning Uchhim SCAN DOCS - NO RESULTS Final Res ult * ECG 12 lead (MUSE) (09/14/2025 9:35 PM EDT) 09/14/2025 9:35 PM EDT Narrative MUSE - 09/15/2025 11:04 AM EDT Ventricular Rate: 73 BPM Atrial Rate: 73 BPM P-R Interval: 172 ms QRS Duration: 100 ms QT: 456 ms QTc: 502 ms P [place]: 37 degrees R [place]: -48 degrees T [place]: 63 degrees Diagnosis Line: NORMAL SINUS RHYTHM ^ LEFT ANTERIOR HEMIBLOCK ^ CANNOT RULE OUT ANTERIOR INFARCT , AGE UNDETERMINED ^ PROLONGED QT ^ ABNORMAL ECG ^ ^ Confirmed by Conner DONATO MD ([id number]) on 09/15/2025 11:04:49 AM us Nieves Bryant MD ECG ORDERABLES Final Result MUSE * X-ray Portable Chest (09/14/2025 9:15 PM EDT) Anatomical Region Laterality Modality Chest Radiographic Destiny ging 09/14/2025 9:04 PM EDT Impressions 09/14/2025 10:18 PM EDT IMPRESSION: 1. Left IJ approach CVC tip projects over the SVC. No evidence of pneumothorax. 2. Small bilateral pleural effusions with overlying bibasilar opacities, left greater than right. Report Verified by: Doroteo Nguyen DO at 09/14/2025 10:18 PM EDT Narrative 09/14/2025 10:18 PM EDT EXAM: XR PORTABLE CHEST INDICATION: Dyspnea, unspecified TECHNIQUE: 1 view of the chest. COMPARISON: 05/25/2025 FINDINGS: Medical Devices: Left IJ approach CVC tip projects over the SVC.. Heart and Mediastinum: Cardiac silhouette is borderline enlarged, but likely accentuated by portable technique and low lung volumes. Lungs and Pleura: Low lung volumes. Suspect small bilateral pleural effusions. Mild left greater than right basilar airspace. No evidence of pneumothorax. Bones and soft tissues: No acute abnormalities. Procedure Note Doroteo Nguyen DO - 09/14/2025 EXAM: XR PORTABLE CHEST INDICATION: Dyspnea, unspecified TECHNIQUE: 1 view of the chest. COMPARISON: 05/25/2025 FINDINGS: Medical Devices: Left IJ approach CVC tip projects over the SVC.. Heart and Mediastinum: Cardiac silhouette is borderline enlarged, butlikely accentuated by portable technique and low lung volumes. Lungs and Pleura: Low lung volumes. Suspect small bilateral pleuraleffusions. Mild left greater than right basilar airspace. No evidence ofpneumothorax. Bones and soft tissues: No acute abnormalities. IMPRESSION: 1. Left IJ approach CVC tip projects over the SVC. No evidence ofpneumothorax. 2. Small bilateral pleural effusions with overlying bibasilar opacities,left greater than right. Report Verified by: Doroteo Nguyen DO at 09/14/2025 10:18 PM EDT us Nieves Bryant MD IMG DIAGNOSTIC IMAGING ORDERABLE S Final Result * (ABNORMAL) B Natriuretic Peptide (09/14/2025 9:13 PM EDT) BNP 112(H) 0 - 100 pg/mL 09/14/2025 10:31 PM EDT [facility] Comment: BNP may be increased in the presence of sacubitril/valsartan (Entresto). Please interpret accordingly. Plasma 09/14/2025 9:13 PM EDT 09/14/2025 10:02 PM EDT [facility] - 09/14/2025 10:31 PM EDT The presence of high concentrations of biotin may cause falsely lowered BNP results. Biotin interference may be seen if an individual is taking >5 mg biotin per day. Interpret BNP results in the context of the patient's clinical presentation. us Nieves Bryant MD LAB BLOOD ORDERABLES Final Resul t [facility] [address] [place] [address], [facility] * High Sensitivity Troponin (09/14/2025 9:13 PM EDT) Pathologist [facility] High Sensitivity Troponin 13 0 - 14 ng/L 09/14/2025 11:45 PM EDT [facility] Serum 09/14/2025 9:13 PM EDT 09/14/2025 10:02 PM EDT Nieves Bryant MD LAB BLOOD ORDERABLES Final Resul t Performing Organization Address City/[facility] Co de Phone Number [facility] [address] [facility] * Influenza A and B, COVID, RSV Combination Assay, ANU (09/14/2025 9:13 PM EDT) [facility] Influenza A Negative Negative 09/15/2025 12:09 AM EDT [facility] Influenza B Negative Negative 09/15/2025 12:09 AM EDT [facility] RSV Negative Negative 09/15/2025 12:09 AM EDT [facility] SARS-CoV-2 Negative Negative,Not Detected 09/15/2025 12:09 AM EDT [facility] Comment:This is an FDA-appro marvin amplified nucleic acid assay performed by real- time PCR. Nasopharyngeal Swab NASOPHARYNGEAL STRUCTURE / Unknown 09/14/2025 9:13 PM EDT 09/14/2025 10:24 PM EDT Result [facility] Nieves Bryant MD BODY FLUIDS AND STOOLS ORDERABLE S Final Result Performing Organization Address City/[facility] Co de Phone Number [facility] [address] [facility] * Urine culture (09/14/2025 9:13 PM EDT) Pathologist [facility] Culture Result 50,000 - <100,000 cfu/mL [facility] Culture Result Skin/Urogeni cayden Sharon. No Further Workup. [facility] Newly Placed Ni Urine URINE SPECIMEN / Unknown 09/14/2025 9:13 PM EDT 09/14/2025 9:21 PM EDT Nieves Bryant MD MICROBIOLOGY - GENERAL ORDERABLE S Final Result [facility] [address] [place] [address], [facility] * (ABNORMAL) Venous Blood Gas, Line/Syringe, STAT (09/14/2025 8:55 PM EDT) PH-Line Draw 7.26(L) 7.32 - 7.42 09/14/2025 9:06 PM EDT [facility] PCO2-Line Draw 38(L) 41 - 51 mm Hg 09/14/2025 9:06 PM EDT [facility] PO2-Line Draw 46(H) 25 - 40 mm Hg 09/14/2025 9:06 PM EDT [facility] HCO3-Line Draw 17(L) 24 - 28 mmol/L 09/14/2025 9:06 PM EDT [facility] CO2 Content-Line Draw 18(L) 25 - 29 mmol/L 09/14/2025 9:06 PM EDT [facility] Base Excess-Line Draw -9.3(L) -2.0 - 3.0 mmol/L 09/14/2025 9:06 PM EDT [facility] %HBO2-Line Draw 67.5 40.0 - 70.0 % 09/14/2025 9:06 PM EDT [facility] Carboxyhgb-Joi e Draw 0.9 % 09/14/2025 9:06 PM EDT [facility] Comment: CARBOXYHEMOGLOBIN (CO) REFERENCE RANGES: Non-Smokers: <2 % Smokers: <8 % TOXIC: >20 % Methemoglobin- Line Draw 0.0 0.0 - 1.5 % 09/14/2025 9:06 PM EDT [facility] Reduced Hemoglobin-Joi e Draw 31.6(H) 0.0 - 5.0 % 09/14/2025 9:06 PM EDT [facility] Venous, Line Draw 09/14/2025 8:55 PM EDT 09/14/2025 9:01 PM EDT Nieves Bryant MD LAB BLOOD ORDERABLES Final Resul t [facility] [address] [place] [address], [facility] * (ABNORMAL) Urinalysis w/Rfl to Microscopic (09/14/2025 8:42 PM EDT) Color, UA Yellow Yellow,Straw 09/14/2025 9:36 PM EDT [facility] Clarity, UA Turbid(A) Clear 09/14/2025 9:36 PM EDT [facility] Specific Trail, UA 1.035 1.005 - 1.035 09/14/2025 9:36 PM EDT [facility] pH, UA 6.0 5.0 - 8.0 09/14/2025 9:36 PM EDT [facility] Protein, UA 70(A) Negative mg/dL 09/14/2025 9:36 PM EDT [facility] Glucose, UA Negative Negative mg/dL 09/14/2025 9:36 PM EDT [facility] Ketones, UA Negative Negative mg/dL 09/14/2025 9:36 PM EDT [facility] Bilirubin, UA Small(A) Negative 09/14/2025 9:36 PM EDT [facility] Blood, UA Moderate(A) Negative 09/14/2025 9:36 PM EDT [facility] Nitrite, UA Negative Negative 09/14/2025 9:36 PM EDT [facility] Urobilinogen, UA 8.0(H) 0.2 - 1.9 mg/dL 09/14/2025 9:36 PM EDT [facility] Leukocyte Esterase, UA Moderate(A) Negative 09/14/2025 9:36 PM EDT [facility] RBC, UA 19(H) 0 - 3 /HPF 09/14/2025 9:36 PM EDT [facility] WBC, UA >100(H) 0 - 5 /HPF 09/14/2025 9:36 PM EDT [facility] Squam Epithel, UA 5 0 - 5 /HPF 09/14/2025 9:36 PM EDT [facility] Bacteria, UA Rare(A) None Seen /HPF 09/14/2025 9:36 PM EDT [facility] Hyaline Casts, UA 3(H) 0 - 2 /LPF 09/14/2025 9:36 PM EDT [facility] Mucus, UA Present(A) None Seen /HPF 09/14/2025 9:36 PM EDT [facility] Urine 09/14/2025 8:42 PM EDT 09/14/2025 9:08 PM EDT us Nieves Bryant MD URINE ORDERABLES Final Result [facility] [address] * Vancomycin, random (09/14/2025 8:38 PM EDT) Vancomycin Random 39.0 ug/mL 09/15/2025 4:37 AM EDT [facility] Comment:Reference range not established for this test. Plasma 09/14/2025 8:38 PM EDT 09/14/2025 11:02 PM EDT us Sally Galindo PharmD LAB BLOOD ORDERABLES Fi nal Result Performing Organization Address [facility] Co de Phone Number [facility] [address] * Protime-INR, STAT (09/14/2025 8:38 PM EDT) Protime 14.3 12.1 - 15.1 seconds 09/14/2025 9:22 PM EDT [facility] INR 1.1 0.9 - 1.1 09/14/2025 9:22 PM EDT [facility] Comment: RECOMMENDED THERAPEUTIC RANGES USING INR : Stable oral anticoagulant therapy: 2.0 - 3.0 Mechanical prosthetic heart valve: 2.5 - 3.5 Recurrent acute myocardial infarction: 2.5 - 3.5 Plasma 09/14/2025 8:38 PM EDT 09/14/2025 9:10 PM EDT us Nieves Bryant MD LAB BLOOD ORDERABLES Final Resul t [facility] [address] * (ABNORMAL) Hepatic Function Panel, STAT (09/14/2025 8:38 PM EDT) Total Bilirubin 4.7(H) 0.0 - 1.5 mg/dL 09/14/2025 9:52 PM EDT [facility] Bilirubin, Direct 3.66(H) 0.00 - 0.40 mg/dL 09/14/2025 9:52 PM EDT [facility] AST 283(H) 13 - 39 U/L 09/14/2025 9:52 PM EDT [facility] ALT 147(H) 7 - 52 U/L 09/14/2025 9:52 PM EDT [facility] Alkaline Phosphatase 516(H) 36 - 125 U/L 09/14/2025 9:52 PM EDT [facility] Total Protein 6.1(L) 6.4 - 8.9 g/dL 09/14/2025 9:52 PM EDT [facility] Albumin 3.1(L) 3.5 - 5.7 g/dL 09/14/2025 9:52 PM EDT [facility] Bilirubin, Indirect 1.04 0.00 - 1.10 mg/dL 09/14/2025 9:52 PM EDT [facility] Plasma 09/14/2025 8:38 PM EDT 09/14/2025 9:10 PM EDT Nieves Bryant MD LAB BLOOD ORDERABLES Final Resul t Performing Organization Address [facility]/State/ZIP Co de Phone Number [facility] [address] * (ABNORMAL) Lipase, STAT (09/14/2025 8:38 PM EDT) Lipase 462(H) 4 - 82 U/L 09/14/2025 9:52 PM EDT [facility] Plasma 09/14/2025 8:38 PM EDT 09/14/2025 9:10 PM EDT us Nieves Bryant MD LAB BLOOD ORDERABLES Final Resul t [facility] [address] [facility] * Lactic Acid, STAT (09/14/2025 8:38 PM EDT) Lactate 1.2 0.5 - 2.2 mmol/L 09/14/2025 9:51 PM EDT [facility] Plasma 09/14/2025 8:38 PM EDT 09/14/2025 9:08 PM EDT us Nieves Bryant MD LAB BLOOD ORDERABLES Final Resul t Performing Organization Address [facility] Co de Phone Number [facility] [address] [facility] * Magnesium, STAT (09/14/2025 8:38 PM EDT) Magnesium 1.7 1.5 - 2.5 mg/dL 09/14/2025 9:52 PM EDT [facility] Plasma 09/14/2025 8:38 PM EDT 09/14/2025 9:10 PM EDT us Nieves Bryant MD LAB BLOOD ORDERABLES Final Resul t Performing Organization Address City/[facility]/ZIP Co de Phone Number [facility] [address] [facility] * (ABNORMAL) Renal Function Panel w/EGFR, STAT (09/14/2025 8:38 PM EDT) Sodium 135 133 - 146 mmol/L 09/14/2025 9:52 PM EDT [facility] Potassium 4.1 3.5 - 5.3 mmol/L 09/14/2025 9:52 PM EDT [facility] Chloride 104 98 - 110 mmol/L 09/14/2025 9:52 PM EDT [facility] CO2 19(L) 21 - 33 mmol/L 09/14/2025 9:52 PM EDT [facility] Comment:High lactate dehydro genase concentrations in patient samples may cause falsely increased bicarbonate results. If markedly elevated LDH is observed or suspected, please assess results in conjunction with patient`s clinical presentation. In cases of discrepant results, consider evaluating CO2 in with a blood gas order. Anion Gap 12 3 - 16 mmol/L 09/14/2025 9:52 PM EDT [facility] BUN 24 7 - 25 mg/dL 09/14/2025 9:52 PM EDT [facility] Creatinine 1.64(H) 0.60 - 1.30 mg/dL 09/14/2025 9:52 PM EDT [facility] Glucose 125(H) 70 - 100 mg/dL 09/14/2025 9:52 PM EDT [facility] Calcium 7.8(L) 8.6 - 10.3 mg/dL 09/14/2025 9:52 PM EDT [facility] Phosphorus 4.1 2.1 - 4.5 mg/dL 09/14/2025 9:52 PM EDT [facility] Albumin 3.1(L) 3.5 - 5.7 g/dL 09/14/2025 9:52 PM EDT [facility] Osmolality, Calculated 286 278 - 305 mOsm/kg 09/14/2025 9:52 PM EDT [facility] EGFR 34 09/14/2025 9:52 PM EDT [facility] Comment:As of 2022, the estimated GFR [...] Rebeka M, Yvonne DC, Mata ND, Pancho SAENZ, Sherri LA, et al. A Unifying Approach for GFR Estimation: Recommendations of the NKF-ASN Task Force on Reassessing the inclusion of Race in Diagnosing Kidney Disease. Am J Kidney Dis. 2020. Plasma 09/14/2025 8:38 PM EDT 09/14/2025 9:10 PM EDT us Nieves Bryant MD LAB BLOOD ORDERABLES Final Resul t [facility] [address] * (ABNORMAL) CBC, STAT (09/14/2025 8:38 PM EDT) WBC 48.3(H) 3.8 - 10.8 10E3/uL 09/14/2025 9:28 PM EDT [facility] RBC 3.43(L) 3.80 - 5.10 10E6/uL 09/14/2025 9:28 PM EDT [facility] Hemoglobin 10.2(L) 11.7 - 15.5 g/dL 09/14/2025 9:28 PM EDT [facility] Hematocrit 31.1(L) 35.0 - 45.0 % 09/14/2025 9:28 PM EDT [facility] MCV 90.8 80.0 - 100.0 fL 09/14/2025 9:28 PM EDT [facility] MCH 29.7 27.0 - 33.0 pg 09/14/2025 9:28 PM EDT [facility] MCHC 32.7 32.0 - 36.0 g/dL 09/14/2025 9:28 PM EDT [facility] RDW 19.0(H) 11.0 - 15.0 % 09/14/2025 9:28 PM EDT [facility] Platelets 358 140 - 400 10E3/uL 09/14/2025 9:28 PM EDT [facility] MPV 8.6 7.5 - 11.5 fL 09/14/2025 9:28 PM EDT [facility] Whole Blood 09/14/2025 8:38 PM EDT 09/14/2025 9:10 PM EDT us Nieves Bryant MD LAB BLOOD ORDERABLES Final Resul t [facility] [address] documented in this encounter Visit Diagnoses Diagnosis Bacteremia Cystitis Unspecified cystitis Sepsis due to Escherichia coli with acute organ dysfunction and septic shock, unspecified organ dysfunction type ([facility]) * Assessment & Plan Note - Joe Gandara - 09/21/2025 3:40 PM EDT Associated Problem(s): Sepsis due to Escherichia coli with acute organ dysfunction ([facility]) OSH workup showed elevated lactate with associated hypotension, iso leukocytosis upto 45 with neutrophilic shift, overall concerning for septic shock. Confirmed E coli positive urine and blood cultures from OSH. Also considering cholangitis vs pancreatitis. Not concerned for cardiogenic shock givenpreserved EF on formal TTE. Not concerned for hemorrhagic shock due to no apparent bleeding. S/p 2 L IVF here, plus additional at OSH, meeting 30cc/kg. Lactate downtrended with initiation of pressors. Weaned off levo, bumped out to medicine. Sed rate was elevated. -MAP Goal >65, currently off pressors on floor -Primary team was able to call and confirm with [facility] lab that blood cx and urine cx both with E. Coli susceptible to Zosyn, media tab has the faxed records of the blood cx, unfortunatelythe urine cx data sent was for the [facility] culture instead of the original cx showing E. Coli. -Repeat blood culture at - [facility] - ID is following * Assessment & Plan Note - Joe Gandara - 09/21/2025 3:40 PM EDT Associated Problem(s): Cystitis OSH workup showed elevated lactate with associated hypotension, iso leukocytosis upto 45 with neutrophilic shift, overall concerning for septic shock. Confirmed E coli positive urine and blood cultures from OSH. Also considering cholangitis vs pancreatitis. Not concerned for cardiogenic shock givenpreserved EF on formal TTE. Not concerned for hemorrhagic shock due to no apparent bleeding. S/p 2 L IVF here, plus additional at OSH, meeting 30cc/kg. Lactate downtrended with initiation of pressors. Weaned off levo, bumped out to medicine. Sed rate was elevated. -MAP Goal >65, currently off pressors on floor -Primary team was able to call and confirm with [facility] lab that blood cx and urine cx both with E. Coli susceptible to Zosyn, media tab has the faxed records of the blood cx, unfortunatelythe urine cx data sent was for the NGTD culture instead of the original cx showing E. Coli. -Repeat blood culture at [facility] - ID is following * Assessment & Plan Note - Joe Gandara - 09/21/2025 3:40 PM EDT Associated Problem(s): Septic shock, resolved OSH workup showed elevated lactate with associated hypotension, iso leukocytosis upto 45 with neutrophilic shift, overall concerning for septic shock. Confirmed E coli positive urine and blood cultures from OSH. Also considering cholangitis vs pancreatitis. Not concerned for cardiogenic shock givenpreserved EF on formal TTE. Not concerned for hemorrhagic shock due to no apparent bleeding. S/p 2 L IVF here, plus additional at OSH, meeting 30cc/kg. Lactate downtrended with initiation of pressors. Weaned off levo, bumped out to medicine. Sed rate was elevated. -MAP Goal >65, currently off pressors on floor -Primary team was able to call and confirm with [facility] lab that blood cx and urine cx both with E. Coli susceptible to Zosyn, media tab has the faxed records of the blood cx, unfortunatelythe urine cx data sent was for the NGTD culture instead of the original cx showing E. Coli. -Repeat blood culture at [facility] - ID is following * Assessment & Plan Note - Joe Gandara - 09/21/2025 3:40 PM EDT Associated Problem(s): Acute pancreatitis Patient presented with acute abdominal pain and back pain, somewhat radiating, lipase ~3998 at OSH.Got fluid resuscitation per sepsis fluids. Although CT A/P non-con at OSH was reported normal, still meets criteria for acute pancreatitis. 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 With elevated bilirubin, leukocytosis and RUQ pain some c/f cholangitis as well. Normal triglycerides. Cholestatic pattern of injury. Lipase downtrended now 462. LFTs downtrending.Liver could have microinfarcts from shock as well. - GI following appreciate recs, MRCP w/o ductal dilation, no endoscopic plans for now, possible hadpassed stone +/- c/f hepatic abscess as below. [...] ESR, CRP, CMP, PICC line care weekly * Assessment & Plan Note - Joe Gandara - 09/21/2025 3:40 PM EDT Associated Problem(s): Elevated LFTs Patient presented with acute abdominal pain and back pain, somewhat radiating, lipase ~3998 at OSH.Got fluid resuscitation per sepsis fluids. Although CT A/P non-con at OSH was reported normal, still meets criteria for acute pancreatitis. 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 With elevated bilirubin, leukocytosis and RUQ pain some c/f cholangitis as well. Normal triglycerides. Cholestatic pattern of injury. Lipase downtrended now 462. LFTs downtrending.Liver could have microinfarcts from shock as well. - GI following appreciate recs, MRCP w/o ductal dilation, no endoscopic plans for now, possible hadpassed stone +/- c/f hepatic abscess as below. [...] ESR, CRP, CMP, PICC line care weekly * Assessment & Plan Note - Joe Gandara - 09/21/2025 3:40 PM EDT Associated Problem(s): HFimpEF Home GDMT: Entresto 24-26 BID. Spironolactone (unsure if she has been taking it) 2/2 Takotsubo cardiomyopathy. Not in acute exacerbation. TTE 09/15/25 w/improved EF 60-65%. - Continue Coreg 3.125 BID, Entresto AM, aldactone PM with hold parameter if SBP<100 - BP is well controlled with all her GDMTs. - Continue to hold home lasix * Assessment & Plan Note - Jeo Gandara - 09/21/2025 3:40 PM EDT Associated Problem(s): Weakness PT/OT evaluated the patient and recommended Short-term skilled PT/OT placement. * Assessment & Plan Note - Joe Gandara - 09/21/2025 7:41 AM EDT Associated Problem(s): Coronary artery disease involving [place] coronary artery of [place] heart without angina pectoris No acute concerns. On atorvastatin 40mg at home. - Continue ASA * Assessment & Plan Note - Joe Gandara - 09/21/2025 7:41 AM EDT Associated Problem(s): Normocytic anemia Baseline Hg around 9-10. All cell lines decreased during hospitalization with fluids. -continue to monitor * Assessment & Plan Note - Joe Gandara - 09/21/2025 7:41 AM EDT Associated Problem(s): Chronic anxiety -continue home duloxetine and atarax * Assessment & Plan Note - Joe Gandara - 09/21/2025 7:41 AM EDT Associated Problem(s): Gastroesophageal reflux disease without esophagitis Home regimen: omeprazole -Continue TI pantoprazole 40 * Assessment & Plan Note - Joe Gandara - 09/21/2025 7:41 AM EDT Associated Problem(s): COPD (chronic obstructive pulmonary disease) ([facility]) On RA at baseline, vitally stable since admission. Not concerned for COPD exacerbation. Desatted to86, required 2L NC overnight. - home LAMA, LABA, ICS * Assessment & Plan Note - Joe Gandara - 09/21/2025 7:41 AM EDT Associated Problem(s): APARNA (obstructive sleep apnea) Suspected, noted in chart, not on CPAP/BiPAP. -outpatient sleep study * Assessment & Plan Note - Joe Gandara - 09/21/2025 7:41 AM EDT Associated Problem(s): Chronic back+knee pain with R-sided sciatica -holding home celecoxib in hospitall, could resume when BP more stable -continue home duloxetine and gabapentin -Tylenol PRN * Assessment & Plan Note - Joe Gandara - 09/21/2025 7:41 AM EDT Associated Problem(s): Migraine -continue home topamax * Assessment & Plan Note - Joe Gandara - 09/21/2025 7:41 AM EDT Associated Problem(s): Tremor Baseline, chronic. -continue home Topamax * Assessment & Plan Note - Joe Gandara - 09/21/2025 7:41 AM EDT Associated Problem(s): Constipation -Miralax BID, senna increased to 2 tablets BID * Assessment & Plan Note - Joe Gandara - 09/21/2025 7:41 AM EDT Associated Problem(s): Severe protein-calorie malnutrition (CMS-HCC) Meets criteria per RD assessment. Difficulty with poor appetite, nausea/vomiting, swallowing difficulty with meats. Food insecurity noted. - Tolerating diet - Continue regular diet, encourage PO intake * Assessment & Plan Note - Lizet Hair MD - 09/20/2025 8:54 PM EDTAssociated Problem(s): Sepsis due to Escherichia coli with acute organ dysfunction ([facility]) OSH workup showed elevated lactate with associated hypotension, iso leukocytosis upto 45 with neutrophilic shift, overall concerning for septic shock. Confirmed E coli positive urine and blood cultures from OSH. Also considering cholangitis vs pancreatitis. Not concerned for cardiogenic shock givenpreserved EF on formal TTE. Not concerned for hemorrhagic shock due to no apparent bleeding. S/p 2 L IVF here, plus additional at OSH, meeting 30cc/kg. Lactate downtrended with initiation of pressors. Weaned off levo, bumped out to medicine. Sed rate was elevated. -MAP Goal >65, currently off pressors on floor -Primary team was able to call and confirm with [facility] lab that blood cx and urine cx both with E. Coli susceptible to Zosyn, media tab has the faxed records of the blood cx, unfortunatelythe urine cx data sent was for the [...] CMP and fax labs to [facility] at [phone] PICC line care weekly - primary team ordered PICC consult Will arrange [facility] follow up. -Repeat blood culture at [facility] * Assessment & Plan Note - Lizet Hair MD - 09/20/2025 8:54 PM EDTAssociated Problem(s): Cystitis OSH workup showed elevated lactate with associated hypotension, iso leukocytosis upto 45 with neutrophilic shift, overall concerning for septic shock. Confirmed E coli positive urine and blood cultures from OSH. Also considering cholangitis vs pancreatitis. Not concerned for cardiogenic shock givenpreserved EF on formal TTE. Not concerned for hemorrhagic shock due to no apparent bleeding. S/p 2 L IVF here, plus additional at OSH, meeting 30cc/kg. Lactate downtrended with initiation of pressors. Weaned off levo, bumped out to medicine. Sed rate was elevated. -MAP Goal >65, currently off pressors on floor -Primary team was able to call and confirm with [facility] lab that blood cx and urine cx both with E. Coli susceptible to Zosyn, media tab has the faxed records of the blood cx, unfortunatelythe urine cx data sent was for the [...] CMP and fax labs to [facility] at [phone] PICC line care weekly - primary team ordered PICC consult Will arrange [facility] follow up. -Repeat blood culture at - [facility] * Assessment & Plan Note - Lizet Hair MD - 09/20/2025 8:54 PM EDTAssociated Problem(s): Septic shock, resolved OSH workup showed elevated lactate with associated hypotension, iso leukocytosis upto 45 with neutrophilic shift, overall concerning for septic shock. Confirmed E coli positive urine and blood cultures from OSH. Also considering cholangitis vs pancreatitis. Not concerned for cardiogenic shock givenpreserved EF on formal TTE. Not concerned for hemorrhagic shock due to no apparent bleeding. S/p 2 L IVF here, plus additional at OSH, meeting 30cc/kg. Lactate downtrended with initiation of pressors. Weaned off levo, bumped out to medicine. Sed rate was elevated. -MAP Goal >65, currently off pressors on floor -Primary team was able to call and confirm with [facility] lab that blood cx and urine cx both with E. Coli susceptible to Zosyn, media tab has the faxed records of the blood cx, unfortunatelythe urine cx data sent was for the [...] CMP and fax labs to [facility] at [phone] PICC line care weekly - primary team ordered PICC consult Will arrange [facility] follow up. -Repeat blood culture at - [facility] * Assessment & Plan Note - Lizet Hair MD - 09/20/2025 8:54 PM EDTAssociated Problem(s): Acute pancreatitis Patient presented with acute abdominal pain and back pain, somewhat radiating, lipase ~3998 at OSH.Got fluid resuscitation per sepsis fluids. Although CT A/P non-con at OSH was reported normal, still meets criteria for acute pancreatitis. 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 With elevated bilirubin, leukocytosis and RUQ pain some c/f cholangitis as well. Normal triglycerides. Cholestatic pattern of injury. Lipase downtrended now 462. LFTs downtrending.Liver could have microinfarcts from shock as well. - GI following appreciate recs, MRCP w/o ductal dilation, no endoscopic plans for now, possible hadpassed stone +/- c/f hepatic abscess as below. Abx per ID. Will refer for OP GI follow up with consideration of outpatient endoscopic evaluation. Signed off. - s/p maintenance IVF * Assessment & Plan Note - Lizet Hair MD - 09/20/2025 8:54 PM EDTAssociated Problem(s): Elevated LFTs Patient presented with acute abdominal pain and back pain, somewhat radiating, lipase ~3998 at OSH.Got fluid resuscitation per sepsis fluids. Although CT A/P non-con at OSH was reported normal, still meets criteria for acute pancreatitis. 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 With elevated bilirubin, leukocytosis and RUQ pain some c/f cholangitis as well. Normal triglycerides. Cholestatic pattern of injury. Lipase downtrended now 462. LFTs downtrending.Liver could have microinfarcts from shock as well. - GI following appreciate recs, MRCP w/o ductal dilation, no endoscopic plans for now, possible hadpassed stone +/- c/f hepatic abscess as below. Abx per ID. Will refer for OP GI follow up with consideration of outpatient endoscopic evaluation. Signed off. - s/p maintenance IVF * Assessment & Plan Note - Lizet Hair MD - 09/20/2025 8:54 PM EDTAssociated Problem(s): HFimpEF Home GDMT: Entresto 24-26 BID. Spironolactone (unsure if she has been taking it) 2/2 Tak[place]ubo cardiomyopathy. Not in acute exacerbation. TTE 09/15/25 w/improved EF 60-65%. Patientwas mildly hypotensive last night (lowest 92/55) . Will hold home GDMT for now, - Continue Coreg 3.125 BID - Restart Entresto AM, aldactone PM with hold parameter if SBP<100 - Hold home lasix * Assessment & Plan Note - Lizet Hair MD - 09/20/2025 8:54 PM EDTAssociated Problem(s): Constipation -Miralax BID, senna increased to 2 tablets BID * Assessment & Plan Note - Lizet Hair MD - 09/20/2025 8:54 PM EDTAssociated Problem(s): Severe protein-calorie malnutrition (CMS-HCC) Meets criteria per RD assessment. Difficulty with poor appetite, nausea/vomiting, swallowing difficulty with meats. Food insecurity noted. - Tolerating diet - Continue regular diet, encourage PO intake * Assessment & Plan Note - Lizet Hair MD - 09/20/2025 8:54 PM EDTAssociated Problem(s): Coronary artery disease involving [place] coronary artery of [place] heart without angina pectoris No acute concerns. On atorvastatin 40mg at home. - Continue ASA * Assessment & Plan Note - Lizet Hair MD - 09/20/2025 8:54 PM EDTAssociated Problem(s): Normocytic anemia Baseline Hg around 9-10. All cell lines decreased during hospitalization with fluids. -continue to monitor * Assessment & Plan Note - Lizet Hair MD - 09/20/2025 8:54 PM EDTAssociated Problem(s): Chronic anxiety -continue home duloxetine and atarax * Assessment & Plan Note - Lizet Hair MD - 09/20/2025 8:54 PM EDTAssociated Problem(s): Gastroesophageal reflux disease without esophagitis Home regimen: omeprazole -Continue TI pantoprazole 40 * Assessment & Plan Note - Lizet Hair MD - 09/20/2025 8:54 PM EDTAssociated Problem(s): COPD (chronic obstructive pulmonary disease) ([facility]) On RA at baseline, vitally stable since admission. Not concerned for COPD exacerbation. Desatted to86, required 2L NC overnight. - home LAMA, LABA, ICS * Assessment & Plan Note - Lizet Hair MD - 09/20/2025 8:54 PM EDTAssociated Problem(s): APARNA (obstructive sleep apnea) Suspected, noted in chart, not on CPAP/BiPAP. -outpatient sleep study * Assessment & Plan Note - Lizet Hair MD - 09/20/2025 8:54 PM EDTAssociated Problem(s): Chronic back+knee pain with R-sided sciatica -holding home celecoxib in hospitall, could resume when BP more stable -continue home duloxetine and gabapentin -Tylenol PRN * Assessment & Plan Note - Lizet Hair MD - 09/20/2025 8:54 PM EDTAssociated Problem(s): Migraine -continue home topamax * Assessment & Plan Note - Lizet Hair MD - 09/20/2025 8:54 PM EDTAssociated Problem(s): Tremor Baseline, chronic. -continue home Topamax * Assessment & Plan Note - Lizet Hair MD - 09/19/2025 4:13 PM EDTAssociated Problem(s): Chronic back+knee pain with R-sided sciatica -holding home celecoxib in hospitall, could resume when BP more stable -continue home duloxetine and gabapentin -Tylenol PRN * Assessment & Plan Note - Lizet Hair MD - 09/19/2025 4:13 PM EDTAssociated Problem(s): Migraine -continue home topamax * Assessment & Plan Note - Lizet Hair MD - 09/19/2025 4:13 PM EDTAssociated Problem(s): Tremor Baseline, chronic. -continue home Topamax * Assessment & Plan Note - Lizet Hair MD - 09/19/2025 4:13 PM EDTAssociated Problem(s): Constipation -Miralax BID, senna increased to 2 tablets BID * Assessment & Plan Note - Lizet Hair MD - 09/19/2025 4:13 PM EDTAssociated Problem(s): Sepsis due to Escherichia coli with acute organ dysfunction ([facility]) OSH workup showed elevated lactate with associated hypotension, iso leukocytosis upto 45 with neutrophilic shift, overall concerning for septic shock. Confirmed E coli positive urine and blood cultures from OSH. Also considering cholangitis vs pancreatitis. Not concerned for cardiogenic shock givenpreserved EF on formal TTE. Not concerned for hemorrhagic shock due to no apparent bleeding. S/p 2 L IVF here, plus additional at OSH, meeting 30cc/kg. Lactate downtrended with initiation of pressors. Weaned off levo, bumped out to medicine. Sed rate was elevated. -MAP Goal >65, currently off pressors on floor -Primary team was able to call and confirm with [facility] lab that blood cx and urine cx both with E. Coli susceptible to Zosyn, media tab has the faxed records of the blood cx, unfortunatelythe urine cx data sent was for the [...] CMP and fax labs to [facility] at [phone] PICC line care weekly - primary team ordered PICC consult Will arrange [facility] follow up. -Repeat blood culture at - [facility] * Assessment & Plan Note - Lizet Hair MD - 09/19/2025 4:13 PM EDTAssociated Problem(s): Cystitis OSH workup showed elevated lactate with associated hypotension, iso leukocytosis upto 45 with neutrophilic shift, overall concerning for septic shock. Confirmed E coli positive urine and blood cultures from OSH. Also considering cholangitis vs pancreatitis. Not concerned for cardiogenic shock givenpreserved EF on formal TTE. Not concerned for hemorrhagic shock due to no apparent bleeding. S/p 2 L IVF here, plus additional at OSH, meeting 30cc/kg. Lactate downtrended with initiation of pressors. Weaned off levo, bumped out to medicine. Sed rate was elevated. -MAP Goal >65, currently off pressors on floor -Primary team was able to call and confirm with [facility] lab that blood cx and urine cx both with E. Coli susceptible to Zosyn, media tab has the faxed records of the blood cx, unfortunatelythe urine cx data sent was for the [...] CMP and fax labs to [facility] at [phone] PICC line care weekly - primary team ordered PICC consult Will arrange [facility] follow up. -Repeat blood culture at - [facility] * Assessment & Plan Note - Lizet Hair MD - 09/19/2025 4:13 PM EDTAssociated Problem(s): Septic shock, resolved OSH workup showed elevated lactate with associated hypotension, iso leukocytosis upto 45 with neutrophilic shift, overall concerning for septic shock. Confirmed E coli positive urine and blood cultures from OSH. Also considering cholangitis vs pancreatitis. Not concerned for cardiogenic shock givenpreserved EF on formal TTE. Not concerned for hemorrhagic shock due to no apparent bleeding. S/p 2 L IVF here, plus additional at OSH, meeting 30cc/kg. Lactate downtrended with initiation of pressors. Weaned off levo, bumped out to medicine. Sed rate was elevated. -MAP Goal >65, currently off pressors on floor -Primary team was able to call and confirm with [facility] lab that blood cx and urine cx both with E. Coli susceptible to Zosyn, media tab has the faxed records of the blood cx, unfortunatelythe urine cx data sent was for the [...] ESR, CRP, CMP and fax labs to [facility] at [phone] PICC line care weekly - primary team ordered PICC consult Will arrange [facility] follow up. -Repeat blood culture at [facility] * Assessment & Plan Note - Lizet Hair MD - 09/19/2025 4:13 PM EDTAssociated Problem(s): Acute pancreatitis Patient presented with acute abdominal pain and back pain, somewhat radiating, lipase ~3998 at OSH.Got fluid resuscitation per sepsis fluids. Although CT A/P non-con at OSH was reported normal, still meets criteria for acute pancreatitis. 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 With elevated bilirubin, leukocytosis and RUQ pain some c/f cholangitis as well. Normal triglycerides. Cholestatic pattern of injury. Lipase downtrended now 462. LFTs downtrending.Liver could have microinfarcts from shock as well. - GI following appreciate recs, MRCP w/o ductal dilation, no endoscopic plans for now, possible hadpassed stone +/- c/f hepatic abscess as below. Abx per ID. Will refer for OP GI follow up with consideration of outpatient endoscopic evaluation. Signed off. - s/p maintenance IVF * Assessment & Plan Note - Lizet Hair MD - 09/19/2025 4:13 PM EDTAssociated Problem(s): Elevated LFTs Patient presented with acute abdominal pain and back pain, somewhat radiating, lipase ~3998 at OSH.Got fluid resuscitation per sepsis fluids. Although CT A/P non-con at OSH was reported normal, still meets criteria for acute pancreatitis. 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 With elevated bilirubin, leukocytosis and RUQ pain some c/f cholangitis as well. Normal triglycerides. Cholestatic pattern of injury. Lipase downtrended now 462. LFTs downtrending.Liver could have microinfarcts from shock as well. - GI following appreciate recs, MRCP w/o ductal dilation, no endoscopic plans for now, possible hadpassed stone +/- c/f hepatic abscess as below. Abx per ID. Will refer for OP GI follow up with consideration of outpatient endoscopic evaluation. Signed off. - s/p maintenance IVF * Assessment & Plan Note - Lizet Hair MD - 09/19/2025 4:13 PM EDTAssociated Problem(s): HFimpEF Home GDMT: Entresto 24-26 BID. Spironolactone (unsure if she has been taking it) 2/2 [place] cardiomyopathy. Not in acute exacerbation. TTE 09/15/25 w/improved EF 60-65%. Patientwas mildly hypotensive last night (lowest 92/55) . Will hold home GDMT for now, - Continue Coreg 3.125 BID - Get Orthostatic vitals - Hold home lasix * Assessment & Plan Note - Lizet Hair MD - 09/19/2025 4:13 PM EDTAssociated Problem(s): Severe protein-calorie malnutrition (CMS-HCC) Meets criteria per RD assessment. Difficulty with poor appetite, nausea/vomiting, swallowing difficulty with meats. Food insecurity noted. - Tolerating diet - Continue regular diet, encourage PO intake * Assessment & Plan Note - Lizet Hair MD - 09/19/2025 4:13 PM EDTAssociated Problem(s): Coronary artery disease involving [place] coronary artery of [place] heart without angina pectoris No acute concerns. On atorvastatin 40mg at home. - Continue ASA * Assessment & Plan Note - Lizet Hair MD - 09/19/2025 4:13 PM EDTAssociated Problem(s): Normocytic anemia Baseline Hg around 9-10. All cell lines decreased during hospitalization with fluids. -continue to monitor * Assessment & Plan Note - Lizet Hair MD - 09/19/2025 4:13 PM EDTAssociated Problem(s): Chronic anxiety -continue home duloxetine and atarax * Assessment & Plan Note - Lizet Hair MD - 09/19/2025 4:13 PM EDTAssociated Problem(s): Gastroesophageal reflux disease without esophagitis Home regimen: omeprazole -Continue TI pantoprazole 40 * Assessment & Plan Note - Lizet Hair MD - 09/19/2025 4:13 PM EDTAssociated Problem(s): COPD (chronic obstructive pulmonary disease) ([facility]) On RA at baseline, vitally stable since admission. Not concerned for COPD exacerbation. Desatted to86, required 2L NC overnight. - home LAMA, LABA, ICS * Assessment & Plan Note - Lizet Hair MD - 09/19/2025 4:13 PM EDTAssociated Problem(s): APARNA (obstructive sleep apnea) Suspected, noted in chart, not on CPAP/BiPAP. -outpatient sleep study * Assessment & Plan Note - Joe Gandara - 09/18/2025 4:05 PM EDT Associated Problem(s): Sepsis due to Escherichia coli with acute organ dysfunction (CMS-HCC) OSH workup showed elevated lactate with associated hypotension, iso leukocytosis upto 45 with neutrophilic shift, overall concerning for septic shock. Confirmed E coli positive urine and blood cultures from OSH. Also considering cholangitis vs pancreatitis. Not concerned for cardiogenic shock givenpreserved EF on formal TTE. Not concerned for [...] data from the outside hospital, -[facility] called [facility] but was not able to get info. We will call the hospital tomorrow. -Repeat blood culture yesterday- [facility] * Assessment & Plan Note - Joe Gandara - 09/18/2025 4:05 PM EDT Associated Problem(s): Septic shock, resolved OSH workup showed elevated lactate with associated hypotension, iso leukocytosis upto 45 with neutrophilic shift, overall concerning for septic shock. Confirmed E coli positive urine and blood cultures from OSH. Also considering cholangitis vs pancreatitis. Not concerned for cardiogenic shock givenpreserved EF on formal TTE. Not concerned for [...] data from the outside hospital, -[facility] called [facility] but was not able to get info. We will call the hospital tomorrow. -Repeat blood culture yesterday- [facility] * Assessment & Plan Note - Joe Gandara - 09/18/2025 4:05 PM EDT Associated Problem(s): Cystitis OSH workup showed elevated lactate with associated hypotension, iso leukocytosis upto 45 with neutrophilic shift, overall concerning for septic shock. Confirmed E coli positive urine and blood cultures from OSH. Also considering cholangitis vs pancreatitis. Not concerned for cardiogenic shock givenpreserved EF on formal TTE. Not concerned for [...] data from the outside hospital, -[facility] called [facility] but was not able to get info. We will call the hospital tomorrow. -Repeat blood culture yesterday- [facility] * Assessment & Plan Note - Joe Gandara - 09/18/2025 4:05 PM EDT Associated Problem(s): HFimpEF Home GDMT: Entresto 24-26 BID. Spironolactone (unsure if she has been taking it) 2/2 [place] cardiomyopathy. Not in acute exacerbation. TTE 09/15/25 w/improved EF 60-65%. Patientwas mildly hypotensive last night (lowest 92/55) . Will hold home GDMT for now, - Continue Coreg 3.125 BID - Get Orthostatic vitals - Hold home lasix * Assessment & Plan Note - Joe Gandara - 09/18/2025 4:05 PM EDT Associated Problem(s): Severe protein-calorie malnutrition (CMS-HCC) Meets criteria per RD assessment. Difficulty with poor appetite, nausea/vomiting, swallowing difficulty with meats. Food insecurity noted. - Tolerating diet - Continue regular diet, encourage PO intake * Assessment & Plan Note - Joe Gandara - 09/18/2025 4:05 PM EDT Associated Problem(s): Coronary artery disease involving [place] coronary artery of [place] heart without angina pectoris No acute concerns. On atorvastatin 40mg at home. - Continue ASA * Assessment & Plan Note - Joe Gandara - 09/18/2025 2:44 PM EDT Associated Problem(s): Acute pancreatitis Patient presented with acute abdominal pain and back pain, somewhat radiating, lipase ~3998 at OSH.Got fluid resuscitation per sepsis fluids. Although CT A/P non-con at OSH was reported normal, still meets criteria for acute pancreatitis. 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 With elevated bilirubin, leukocytosis and RUQ pain some c/f cholangitis as well. Normal triglycerides. Cholestatic pattern of injury. Lipase downtrended now 462. LFTs downtrending. - GI following appreciate recs, MRCP w/o ductal dilation, no endoscopic plans, possible had passed stone +/- c/f hepatic abscess as below. Infarcts in the liver could be from shock. - s/p maintenance IVF * Assessment & Plan Note - Joe Gandara - 09/18/2025 2:44 PM EDT Associated Problem(s): Elevated LFTs Patient presented with acute abdominal pain and back pain, somewhat radiating, lipase ~3998 at OSH.Got fluid resuscitation per sepsis fluids. Although CT A/P non-con at OSH was reported normal, still meets criteria for acute pancreatitis. 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 With elevated bilirubin, leukocytosis and RUQ pain some c/f cholangitis as well. Normal triglycerides. Cholestatic pattern of injury. Lipase downtrended now 462. LFTs downtrending. - GI following appreciate recs, MRCP w/o ductal dilation, no endoscopic plans, possible had passed stone +/- c/f hepatic abscess as below. Infarcts in the liver could be from shock. - s/p maintenance IVF * Assessment & Plan Note - Joe Gandara - 09/18/2025 7:23 AM EDT Associated Problem(s): Normocytic anemia Baseline Hg around 9-10. All cell lines decreased during hospitalization with fluids. -continue to monitor * Assessment & Plan Note - Joe Gandara - 09/18/2025 7:23 AM EDT Associated Problem(s): Chronic anxiety -continue home duloxetine and atarax * Assessment & Plan Note - Joe Gandara - 09/18/2025 7:23 AM EDT Associated Problem(s): Gastroesophageal reflux disease without esophagitis Home regimen: omeprazole -Continue TI pantoprazole 40 * Assessment & Plan Note - Joe Gandara - 09/18/2025 7:23 AM EDT Associated Problem(s): COPD (chronic obstructive pulmonary disease) ([facility]) On RA at baseline, vitally stable since admission. Not concerned for COPD exacerbation. Desatted to86, required 2L NC overnight. - home LAMA, LABA, ICS * Assessment & Plan Note - Joe Gandara - 09/18/2025 7:23 AM EDT Associated Problem(s): APARNA (obstructive sleep apnea) Suspected, noted in chart, not on CPAP/BiPAP. -outpatient sleep study * Assessment & Plan Note - Joe Gandara - 09/18/2025 7:23 AM EDT Associated Problem(s): Chronic back+knee pain with R-sided sciatica -holding home celecoxib in hospitall, could resume when BP more stable -continue home duloxetine and gabapentin -Tylenol PRN * Assessment & Plan Note - Joe Gandara - 09/18/2025 7:23 AM EDT Associated Problem(s): Migraine -continue home topamax * Assessment & Plan Note - Joe Gandara - 09/18/2025 7:23 AM EDT Associated Problem(s): Tremor Baseline, chronic. -continue home Topamax * Assessment & Plan Note - Lizet Hair MD - 09/17/2025 5:52 PM EDTAssociated Problem(s): Sepsis due to Escherichia coli with acute organ dysfunction (CMS-HCC) OSH workup showed elevated lactate with associated hypotension, iso leukocytosis upto 45 with neutrophilic shift, overall concerning for septic shock. Confirmed E coli positive urine and blood cultures from OSH. Also considering cholangitis vs pancreatitis. Not concerned for cardiogenic shock givenpreserved EF on formal TTE. Not concerned for [...] data from the outside hospital, MICU called [facility] but was not able to get info -repeat blood cx * Assessment & Plan Note - Lizet Hair MD - 09/17/2025 5:52 PM EDTAssociated Problem(s): Septic shock, resolved OSH workup showed elevated lactate with associated hypotension, iso leukocytosis upto 45 with neutrophilic shift, overall concerning for septic shock. Confirmed E coli positive urine and blood cultures from OSH. Also considering cholangitis vs pancreatitis. Not concerned for cardiogenic shock givenpreserved EF on formal TTE. Not concerned for [...] data from the outside hospital, MICU called [facility] but was not able to get info -repeat blood cx * Assessment & Plan Note - Lizet Hair MD - 09/17/2025 5:52 PM EDTAssociated Problem(s): Coronary artery disease involving [place] coronary artery of [place] heart without angina pectoris No acute concerns. - Continue ASA + statin * Assessment & Plan Note - Lizet Hair MD - 09/17/2025 5:52 PM EDTAssociated Problem(s): Chronic anxiety -continue home duloxetine and atarax * Assessment & Plan Note - Lizet Hair MD - 09/17/2025 5:52 PM EDTAssociated Problem(s): Gastroesophageal reflux disease without esophagitis Home regimen: omeprazole -Continue TI pantoprazole 40 * Assessment & Plan Note - Lizet Hair MD - 09/17/2025 5:52 PM EDTAssociated Problem(s): APARNA (obstructive sleep apnea) Suspected, noted in chart, not on CPAP/BiPAP. -outpatient sleep study * Assessment & Plan Note - Lizet Hair MD - 09/17/2025 5:52 PM EDTAssociated Problem(s): HFimpEF 2/2 Takotsubo cardiomyopathy. Not in acute exacerbation. TTE 09/15/25 w/improved EF 60%. - Hold GDMT: Entresto 24-26 BID. Spironolactone (unsure if she has been taking it) -Restart Coreg 3.125 BID tonight - Hold home lasix * Assessment & Plan Note - Lizet Hair MD - 09/17/2025 5:52 PM EDTAssociated Problem(s): Cystitis Likely cause of urosepsis from E. Coli UTI. -ID consulted, wants true original culture data from outside hospital, try to call again tomorrow * Assessment & Plan Note - Lizet Hair MD - 09/17/2025 5:52 PM EDTAssociated Problem(s): Chronic back+knee pain with R-sided sciatica -holding home celecoxib in hospitall, could resume when BP more stable -continue home duloxetine and gabapentin -Tylenol PRN * Assessment & Plan Note - Lizet Hair MD - 09/17/2025 5:52 PM EDTAssociated Problem(s): Migraine -continue home topamax * Assessment & Plan Note - Lizet Hair MD - 09/17/2025 5:52 PM EDTAssociated Problem(s): Acute pancreatitis #C/f hepatic abscesses #C/f cholangitis Patient p/w acute abdominal pain and back pain, somewhat radiating, lipase ~3998 at OSH. Got fluid resuscitation per sepsis fluids. Although CT A/P non-con at OSH was reported normal, still meets criteria for acute pancreatitis. 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 With elevated bilirubin, leukocytosis and RUQ pain some c/f cholangitis as well. Normal triglycerides. Cholestatic pattern of injury. Lipase downtrended now 462. LFTs downtrending. - GI following appreciate recs, MRCP w/o ductal dilation, no endoscopic plans, possible had passed stone +/- c/f hepatic abscess as below - s/p maintenance IVF: additional 1L normosol over 10 hr today * Assessment & Plan Note - Lizet Hair MD - 09/17/2025 5:52 PM EDTAssociated Problem(s): Elevated LFTs #C/f hepatic abscesses #C/f cholangitis Patient p/w acute abdominal pain and back pain, somewhat radiating, lipase ~3998 at OSH. Got fluid resuscitation per sepsis fluids. Although CT A/P non-con at OSH was reported normal, still meets criteria for acute pancreatitis. 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 With elevated bilirubin, leukocytosis and RUQ pain some c/f cholangitis as well. Normal triglycerides. Cholestatic pattern of injury. Lipase downtrended now 462. LFTs downtrending. - GI following appreciate recs, MRCP w/o ductal dilation, no endoscopic plans, possible had passed stone +/- c/f hepatic abscess as below - s/p maintenance IVF: additional 1L normosol over 10 hr today * Assessment & Plan Note - Lizet Hair MD - 09/17/2025 5:52 PM EDTAssociated Problem(s): Tremor Baseline, chronic. -continue home Topamax * Assessment & Plan Note - Lizet Hair MD - 09/17/2025 5:52 PM EDTAssociated Problem(s): Severe protein-calorie malnutrition (CMS-HCC) Meets criteria per RD assessment. Difficulty with poor appetite, nausea/vomiting, swallowing difficulty with meats. Food insecurity noted. - tolerating diet * Assessment & Plan Note - Lizet Hair MD - 09/17/2025 5:52 PM EDTAssociated Problem(s): COPD (chronic obstructive pulmonary disease) ([facility]) On RA at baseline, vitally stable since admission. Not concerned for COPD exacerbation. Desatted to86, required 2L NC overnight. - home LAMA, LABA, ICS * Assessment & Plan Note - Lizet Hair MD - 09/17/2025 5:52 PM EDTAssociated Problem(s): FER (acute kidney injury) ([facility]) (Resolved 09/17/2025) Likely from septic shock/urosepsis. -continue to monitor renal panel * Assessment & Plan Note - Lizet Hair MD - 09/17/2025 5:52 PM EDTAssociated Problem(s): Normocytic anemia Baseline Hg around 9-10. All cell lines decreased during hospitalization with fluids. -continue to monitor documented in this encounter Administered Medications Inactive Administered Medications - up to 3 most recent administrations Medication Order MAR Action Action Date Dose Rate Site acetaminophen (TYLENOL) tablet 650 mg 650 mg, Oral, Every 8 hours PRN, mild pain (NRS 1-3); no comparable CPOT score, moderate pain (NRS 4-6) or if patient is non-communicative (CPOT 3-5), Body Temperature > 101F, Body Temperature > 100.4F, Starting on Hannah 09/15/25 at 0509, Maximum dose of acetaminophen is 4000 mg (4 grams) from all sources in 24 hours. Given 09/21/2025 9:40 AM EDT 650 mg Given 09/20/2025 9:32 AM EDT 650 mg Given 09/15/2025 4:48 AM EDT 650 mg aluminum & magnesium hydroxide-simethicone (MYLANTA) suspension 15 mL 15 mL, Oral, Every 6 hours PRN, Heartburn, Starting on 09/17/25 at 0912 Given 09/17/2025 9:01 AM EDT 15 mLs aspirin EC tablet 81 mg 81 mg, Oral, Daily, First dose on Hannah 09/15/25 at 0900, DO NOT CRUSH OR CHEW Given 09/22/2025 8:49 AM EDT 81 mg Given 09/21/2025 9:40 AM EDT 81 mg Given 09/20/2025 8:04 AM EDT 81 mg atorvastatin (LIPITOR) tablet 40 mg 40 mg, Oral, Daily, First dose on Hannah 09/15/25 at 0900 Given 09/22/2025 8:50 AM EDT 40 mg Given 09/15/2025 8:15 AM EDT 40 mg bisacodyL (DULCOLAX) suppository 10 mg 10 mg, Rectal, Daily as needed, Constipation, Starting on Fri09/16/25 at 1650, If patient is agreeable, can give Dulcolax suppository if pt has not had a BM in 3 or more days. carvediloL (COREG) tablet 3.125 mg 3.125 mg, Oral, 2 times daily, First dose on Hannah 09/15/25 at 0200 Given 09/22/2025 8:50 AM EDT 3.125 mg Given 09/21/2025 11:57 PM EDT 3.125 mg Given 09/21/2025 11:36 AM EDT 3.125 mg DULoxetine (CYMBALTA) DR capsule 60 mg 60 mg, Oral, Daily, First dose on Hannah 09/15/25 at 0900, Duloxetine should be swallowed whole. [...] water, and restart the tube feed. Given 09/22/2025 8:50 AM EDT 60 mg Given 09/21/2025 9:40 AM EDT 60 mg Given 09/20/2025 8:04 AM EDT 60 mg gabapentin (NEURONTIN) capsule 100 mg 100 mg, Oral, 3 times daily, First dose on Fri09/15/25 at 0900 Given 09/22/2025 1:33 PM EDT 100 mg Given 09/22/2025 8:50 AM EDT 100 mg Given 09/21/2025 9:57 PM EDT 100 mg heparin (porcine) injection 5,000 Units 5,000 Units, Subcutaneous, Every 8 hours scheduled (3 times per day), First dose on Fri09/14/25 at 2100 Given 09/22/2025 1:33 PM EDT 5,000 Units Right Arm Given 09/22/2025 6:25 AM EDT 5,000 Units A bdominal Tissue Given 09/21/2025 9:58 PM EDT 5,000 Units A bdominal Tissue hydrOXYzine HCL (ATARAX) tablet 25 mg 25 mg, Oral, 2 times daily PRN, Itching, Anxiety, Starting on Fri09/15/25 at 0138 Given 09/19/2025 11:10 PM EDT 2 5 mg Given 09/18/2025 8:05 PM EDT 25 mg Given 09/17/2025 8:44 PM EDT 25 mg mometasone (ASMANEX) 220 mcg/ actuation (14) inhaler 1 puff 1 puff, Inhalation, RT Daily, First dose on Fri09/15/25 at 0830, Administer 1 inhalation with 1 inhalation of ANORO ELLIPTA to = 1 inhalation of TRELEGY ELLIPTA Given 09/22/2025 8:22 AM EDT 1 puff Given 09/21/2025 8:28 AM EDT 1 puff Given 09/20/2025 8:47 AM EDT 1 puff oxyCODONE (ROXICODONE) immediate release tablet 10 mg 10 mg, Oral, Every 4 hours PRN, severe pain (NRS 7-10) or if patient is non-communicative (CPOT 6-8), Starting on Fri09/15/25 at 0945, If on IV and PO pain medications, use IV if patient cannot tolerate oral. Given 09/22/2025 1:38 PM EDT 10 mg Given 09/21/2025 9:55 PM EDT 10 mg Given 09/21/2025 9:40 AM EDT 10 mg oxyCODONE (ROXICODONE) immediate release tablet 5 mg 5 mg, Oral, Every 4 hours PRN, moderate pain (NRS 4-6) or if patient is non-communicative (CPOT 3-5), Starting on Hannah 09/15/25 at 0945, If on IV and PO pain medications, use IV if patient cannot tolerate oral. Given 09/20/2025 4:04 AM EDT 5 mg pantoprazole (PROTONIX) EC tablet 40 mg 40 mg, Oral, Daily6, First dose on 09/17/25 at 0600, Do Not Crush Given 09/22/2025 6:25 AM EDT 40 mg Given 09/21/2025 5:37 AM EDT 40 mg Given 09/20/2025 4:05 AM EDT 40 mg piperacillin-tazobactam (ZOSYN) 4.5 g in sodium chloride 0.9 % 100 mL [id number] 4.5 g, Intravenous, at 25 mL/hr, Every 8 hours, First dose on Hannah 09/15/25 at 0500, Use [id number] Adapter - Mix Thoroughly Before Administration New Bag 09/22/2025 1:41 PM EDT 4.5 g 25 mL/hr New Bag 09/22/2025 6:23 AM EDT 4.5 g 25 mL/hr New Bag 09/21/2025 10:07 PM EDT 4.5 g 25 mL/hr polyethylene glycol (MIRALAX) packet 17 g 17 g, Oral, 2 times daily, First dose (after last modification) on Fri09/16/25 at 2100 Given 09/21/2025 9:58 PM EDT 1 7 g Given 09/20/2025 8:04 AM EDT 17 g Given 09/19/2025 8:03 AM EDT 17 g sacubitriL-valsartan (ENTRESTO) 24-26 mg tablet 1 tablet 1 tablet, Oral, 2 times daily, First dose (after last modification) on Tu09/20/25 at 1230 Given 09/22/2025 8:50 AM EDT 1 tablet Given 09/21/2025 9:56 PM EDT 1 tablet Given 09/21/2025 9:40 AM EDT 1 tablet senna (SENOKOT) tablet 2 tablet 2 tablet, Oral, 2 times daily, First dose (after last modification) on Fri09/19/25 at 2100 Given 09/22/2025 8:50 AM EDT 2 tablets Given 09/21/2025 9:57 PM EDT 2 tablets Given 09/21/2025 9:39 AM EDT 2 tablets spironolactone (ALDACTONE) tablet 25 mg 25 mg, Oral, 2 times daily, First dose (after last modification) on Fri09/20/25 at 2100, LEVEL 2 HAZARDOUS MEDICATION; USE APPROPRIATE Personal Protection Equipment. DO NOT CRUSH/SWALLOW WHOLEIndications:PLEASE HOLD IF SBP <100 Given 09/22/2025 8:49 AM EDT 25 mg Given 09/21/2025 9:58 PM EDT 25 mg Given 09/21/2025 9:40 AM EDT 25 mg topiramate (TOPAMAX) tablet 100 mg 100 mg, Oral, Daily, First dose on Fri09/15/25 at 0900 Given 09/22/2025 8:49 AM EDT 100 mg Given 09/21/2025 9:39 AM EDT 100 mg Given 09/20/2025 8:04 AM EDT 100 mg topiramate (TOPAMAX) tablet 150 mg 150 mg, Oral, At Bedtime (2099), First dose on Fri09/15/25 at 0200 Given 09/21/2025 9:56 PM EDT 150 mg Given 09/20/2025 8:35 PM EDT 150 mg Given 09/19/2025 9:07 PM EDT 150 mg umeclidinium-vilanteroL (ANORO ELLIPTA) 62.5-25 mcg/actuation powder for inhalation DsDv 1 puff 1 puff, Inhalation, RT Daily, First dose on Fri09/15/25 at 0830, Administer 1 inhalation with 1 inhalation of mometasone (ASMANEX) 220 mcg to = 1 inhalation of TRELEGY ELLIPTA Given 09/22/2025 8:22 AM EDT 1 p uff Given 09/21/2025 8:28 AM EDT 1 puff Given 09/20/2025 8:47 AM EDT 1 puff documented in this encounter Active and Recently Administered Medications Times are shown in EDT. Scheduled Medication Order 09/20/2025 09/21/2025 09/22/2025 aspirin EC tablet 81 mg 81 mg, Oral, Daily, First dose on Hannah 09/15/25 at 0900, DO NOT CRUSH OR CHEW 0804 (Given - Provider: Leelee Lepe RN) 0940 (Given - Provider: Lisa Estrada, RN) 0849 (Given - Provider: Lisa Estrada, RN) atorvastatin (LIPITOR) tablet 40 mg 40 mg, Oral, Daily, First dose on Hannah 09/15/25 at 0900 0900 (Not Given - Provider: Leelee Lepe RN - Reason: Other - Comment: Held by provider) 0900 (Automatically Held - Provider: Wendie Valentin MD)1518 (Unheld by provider - Provider: Lizet Hair MD) 0850 (Given - Provider: Lisa Estrada, CISCO) carvediloL (COREG) tablet 3.125 mg 3.125 mg, Oral, 2 times daily, First dose on Hannah 09/15/25 at 0200 0932 (Given - Provider: Leelee Lepe RN)2051 (Given - Provider: Farhana Velazco RN) 1136 (Given - Provider: Lisa Estrada, RN)2357 (Given - Provider: Yeimy Sandoval RN) 0850 (Given - Provider: Lisa Estrada RN) DULoxetine (CYMBALTA) DR capsule 60 mg 60 mg, Oral, Daily, First dose on Hannah 09/15/25 at 0900, Duloxetine should be swallowed whole. [...] with water, and restart the tube feed. 0804 (Given - Provider: Leelee Lepe RN) 0940 (Given - Provider: Lisa Estrada RN) 0850 (Given - Provider: Lisa Estrada RN) furosemide (LASIX) tablet 40 mg 40 mg, Oral, 2 times daily, First dose on Fri09/15/25 at 0200, On hold since Fri09/15/2025 at 0109 until manually unheld 0900 (Not Given - Provider: Leelee Lepe RN - Reason: Other - Comment: Held by provider)2100 (Automatically Held) 0900 (Automatically Held)2100 (Not Given - Provider: Yeimy Sandoval RN - Reason: Other) 0900 (Automatically Held)222 (Unheld by provider - Provider: Automatic Discharge Provider) gabapentin (NEURONTIN) capsule 100 mg 100 mg, Oral, 3 times daily, First dose on Fri09/15/25 at 0900 0804 (Given - Provider: Leelee Lepe RN)1358 (Given - Provider: Leelee Lepe RN)203 (Given - Provider: Farhana Velazco RN) 0940 (Given - Provider: Lisa Estrada RN)1332 (Given - Provider: Lisa Estrada, CISCO)2157 (Given - Provider: Yeimy Sandoval RN) 0850 (Given - Provider: Lisa Estrada RN)1333 (Given - Provider: Lisa Estrada RN) heparin (porcine) injection 5,000 Units 5,000 Units, Subcutaneous, Every 8 hours scheduled (3 times per day), First dose on Fri09/14/25 at 2100 0405 (Given - Provider: Brenda Foley RN)1358 (Given - Provider: Leelee Lepe RN)203 (Given - Provider: Farhana Velazco, CISCO) 0537 (Given - Provider: Farhana Velazco RN)1332 (Given - Provider: Lisa Estrada RN)2158 (Given - Provider: Yeimy Sandoval, CISCO) 0625 (Given - Provider: Yeimy Sandoval RN)1333 (Given - Provider: Lisa Estrada RN) magnesium sulfate in sterile water 50 mL IVPB 2 g (COMPLETED) 2 g, Intravenous, Administer over 120 Minutes, Once, On Fri09/20/25 at 1830, For 1 dose 1828 (New Bag - Provider: Leelee Lepe RN) mometasone (ASMANEX) 220 mcg/ actuation (14) inhaler 1 puff(Linked Group 1) 1 puff, Inhalation, RT Daily, First dose on Hannah 09/15/25 at 0830, Administer 1 inhalation with 1 inhalation of ANORO ELLIPTA to = 1 inhalation of TRELEGY ELLIPTA 0847 (Given - Provider: Barb Barger, AUDIT TECH) 0828 (Given - Provider: Eileen Dominguez, AUDIT TECH) 0822 (Given - Provider: Desi Soria, AUDIT TECH) pantoprazole (PROTONIX) EC tablet 40 mg 40 mg, Oral, Daily6, First dose on Fri09/17/25 at 0600, Do Not Crush 0405 (Given - Provider: Brenda Foley, RN) 0537 (Given - Provider: Farhana Velazco, RN) 0625 (Given - Provider: Yeimy Sandoval, RN) piperacillin-tazobactam (ZOSYN) 4.5 g in sodium chloride 0.9 % 100 mL [id number](Linked Group 2) 4.5 g, Intravenous, at 25 mL/hr, Every 8 hours, First dose on Hannah 09/15/25 at 0500, Use [id number] Adapter - Mix Thoroughly Before Administration 0410 (New Bag - Provider: Brenda Foley, RN)1359 (New Bag - Provider: Leelee Lepe, RN)2045 (New Bag - Provider: Farhana Velazco, RN) 0545 (New Bag - Provider: Farhana Velazco, RN)1341 (New Bag - Provider: Lisa Estrada, RN)2207 (New Bag - Provider: Yeimy Sandoval, RN) 0623 (New Bag - Provider: Yeimy Sandoval, RN)1341 (New Bag - Provider: Lisa Estrada, RN) polyethylene glycol (MIRALAX) packet 17 g 17 g, Oral, 2 times daily, First dose (after last modification) on Fri09/16/25 at 2100 0804 (Given - Provider: Leelee Lepe, RN)2036 (Not Given - Provider: Farhana Velazco, CISCO - Reason: Patient/family refused - Comment: diarrhea) 0900 (Not Given - Provider: Lisa Estrada, RN - Reason: Patient/family refused)2158 (Given - Provider: Yeimy Sandoval, RN) 0853 (Not Given - Provider: Lisa Estrada, RN - Reason: Patient/family refused) potassium chloride (KLOR-CON M20) CR tablet 20 mEq (COMPLETED) 20 mEq, Oral, Once, On Fri09/21/25 at 1930, For 1 dose, FOR PATIENTS UNABLE TO SWALLOW LARGE TABLETS, but can take liquids orally: Place tablet(s) in room temperature or warm water (@ 2-4 ounces) and allow to disintegrate for ~ 30 seconds. Then stir well and administer immediately before particles settle. NOTE: not all particles will go into solution. DO NOT CRUSH or CHEW; TABLET(S) MAY BE SPLIT 2204 (Given - Provider: Yeimy Sandoval RN) sacubitriL-valsartan (ENTRESTO) 24-26 mg tablet 1 tablet 1 tablet, Oral, 2 times daily, First dose (after last modification) on Fri09/20/25 at 1230 1409 (Given - Provider: Leelee Lepe, CISCO)2034 (Given - Provider: Farhana Velazco, CISCO) 0940 (Given - Provider: Lisa Estrada, RN)2155 (Given - Provider: Yeimy Sandoval RN) 0850 (Given - Provider: Lisa Estrada, RN) senna (SENOKOT) tablet 2 tablet 2 tablet, Oral, 2 times daily, First dose (after last modification) on Fri09/19/25 at 2100 0804 (Given - Provider: Leelee Lepe RN)2035 (Not Given - Provider: Farhana Velazco RN - Reason: Patient/family refused - Comment: diarrhea) 0939 (Given - Provider: Lisa Estrada, RN)2156 (Given - Provider: Yeimy Sandoval, CISCO) 0850 (Given - Provider: Lisa Estrada, RN) spironolactone (ALDACTONE) tablet 25 mg 25 mg, Oral, 2 times daily, First dose (after last modification) on Fri09/20/25 at 2100, LEVEL 2 HAZARDOUS MEDICATION; USE APPROPRIATE Personal Protection Equipment. DO NOT CRUSH/SWALLOW WHOLE 2034 (Given - Provider: Farhana Velazco RN) 0940 (Given - Provider: Lisa Estrada, RN)2157 (Given - Provider: Yeimy Sandoval, CISCO) 0849 (Given - Provider: Lisa Estrada, RN) topiramate (TOPAMAX) tablet 100 mg 100 mg, Oral, Daily, First dose on Fri09/15/25 at 0900 0804 (Given - Provider: Leelee Lepe, RN) 0939 (Given - Provider: Lisa Estrada, RN) 0849 (Given - Provider: Lisa Estrada, RN) topiramate (TOPAMAX) tablet 150 mg 150 mg, Oral, At Bedtime (2100), First dose on Hannah 09/15/25 at 0200 2034 (Given - Provider: Farhana Velazco, RN) 2155 (Given - Provider: Yeimy Sandoval, CISCO) umeclidinium-vilanteroL (ANORO ELLIPTA) 62.5-25 mcg/actuation powder for inhalation DsDv 1 puff(Linked Group 1) 1 puff, Inhalation, RT Daily, First dose on Hannah 09/15/25 at 0830, Administer 1 inhalation with 1 inhalation of mometasone (ASMANEX) 220 mcg to = 1 inhalation of TRELEGY ELLIPTA 0847 (Given - Provider: Barb Barger, AUDIT TECH) 0828 (Given - Provider: Eileen Dominguez, LIN) 0822 (Given - Provider: Desi Soria RRT) PRN Medication Order 09/20/2025 09/21/2025 09/22/2025 acetaminophen (TYLENOL) tablet 650 mg 650 mg, Oral, Every 8 hours PRN, mild pain (NRS 1-3); no comparable CPOT score, moderate pain (NRS 4-6) or if patient is non-communicative (CPOT 3-5), Body Temperature > 101F, Body Temperature > 100.4F, Starting on Hannah 09/15/25 at 0509, Maximum dose of acetaminophen is 4000 mg (4 grams) from all sources in 24 hours. 0932 (Given - Provider: Leelee Lepe, CISCO) 0940 (Given - Provider: Lisa Estrada, RN) aluminum & magnesium hydroxide-simethicone (MYLANTA) suspension 15 mL 15 mL, Oral, Every 6 hours PRN, Heartburn, Starting on 09/17/25 at 0912 bisacodyL (DULCOLAX) suppository 10 mg 10 mg, Rectal, Daily as needed, Constipation, Starting on 09/16/25 at 1650, If patient is agreeable, can give Dulcolax suppository if pt has not had a BM in 3 or more days. hydrOXYzine HCL (ATARAX) tablet 25 mg 25 mg, Oral, 2 times daily PRN, Itching, Anxiety, Starting on Fri09/15/25 at 0138 oxyCODONE (ROXICODONE) immediate release tablet 10 mg(Linked Group 3) 10 mg, Oral, Every 4 hours PRN, severe pain (NRS 7-10) or if patient is non-communicative (CPOT 6-8), Starting on Fri09/15/25 at 0945, If on IV and PO pain medications, use IV if patient cannot tolerate oral. 0404 (See Alternative - Provider: Brenda Foley, RN)2305 (Given - Provider: Farhana Velazco, RN) 0940 (Given - Provider: Lisa Estrada, RN)2155 (Given - Provider: Yeimy Sandoval, RN) 1338 (Given - Provider: Lisa Estrada, RN) oxyCODONE (ROXICODONE) immediate release tablet 5 mg(Linked Group 3) 5 mg, Oral, Every 4 hours PRN, moderate pain (NRS 4-6) or if patient is non-communicative (CPOT 3-5), Starting on Fri09/15/25 at 0945, If on IV and PO pain medications, use IV if patient cannot tolerate oral. 0404 (Given - Provider: Brenda Foley, CISCO)2305 (See Alternative - Provider: Farhana Velazco RN) 0940 (See Alternative - Provider: Lisa Estrada, CISCO)2155 (See Alternative - Provider: Yeimy Sandoval, RN) 1338 (See Alternative - Provider: Lisa Estrada, RN) Linked Groups Order Group 1: umeclidinium-vilanteroL (ANORO ELLIPTA) 62.5-25 mcg/actuation powder for inhalation DsDv 1 puffJump to med 1 puff, Inhalation, RT Daily, First dose on Fri09/15/25 at 0830, Administer 1 inhalation with 1 inhalation of mometasone (ASMANEX) 220 mcg to = 1 inhalation of TRELEGY ELLIPTA And mometasone (ASMANEX) 220 mcg/ actuation (14) inhaler 1 puffJump to med 1 puff, Inhalation, RT Daily, First dose on Fri09/15/25 at 0830, Administer 1 inhalation with 1 inhalation of ANORO ELLIPTA to = 1 inhalation of TRELEGY ELLIPTA Group 2: piperacillin-tazobactam (ZOSYN) 4.5 g in sodium chloride 0.9 % 100 mL [id number] (COMPLETED) 4.5 g, Intravenous, at 200 mL/hr, Once, On Fri09/14/25 at 2100, For 1 dose, Use [id number] Adapter - Mix Thoroughly Before Administration Followed by piperacillin-tazobactam (ZOSYN) 4.5 g in sodium chloride 0.9 % 100 mL [id number] to med 4.5 g, Intravenous, at 25 mL/hr, Every 8 hours, First dose on Fri09/15/25 at 0500, Use [id number] Adapter - Mix Thoroughly Before Administration Group 3: oxyCODONE (ROXICODONE) immediate release tablet 5 mgJump to med 5 mg, Oral, Every 4 hours PRN, moderate pain (NRS 4-6) or if patient is non-communicative (CPOT 3-5), Starting on Fri09/15/25 at 0945, If on IV and PO pain medications, use IV if patient cannot tolerate oral. Or oxyCODONE (ROXICODONE) immediate release tablet 10 mgJump to med 10 mg, Oral, Every 4 hours PRN, severe pain (NRS 7-10) or if patient is non-communicative (CPOT 6-8), Starting on Fri09/15/25 at 0945, If on IV and PO pain medications, use IV if patient cannot tolerate oral. documented in this encounter Additional Health Concerns Infection Onset Date Last Indicated Resolved Time Rule Out COVID-19 09/14/2025 09/14/2025 09/15/2025 12:09 AM EDT Assessment Noted Time PHQ-9 Depression Total Score: 0 10/14/20 17 10:00 AM EST documented as of this encounter Care Teams Dredge Deckhand Relationship Specialty Start Date End Date Manas Blancas MD [address], [place] [id number] PCP - General Family Medicine 09/14/25 documented as of this encounter
--- OUTSIDE RECORDS SUMMARY | 2025-10-17 15:02 | XMS_ITS | Encounter Summary ---
[facility] Address [address] [place] [address] Care Team Providers Care Plastics Supervisor Name Role Phone Manas Jenkins MD Primary Care Provider + Encounter Details Date Type Department Care Team (Late st Contact Info) Description 07/15/2025 Results Follow-Up [facility] [address] [place] [address] Manas Jenkins MD [address] [place] [address] 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 Tobacco Use Types [...] Description 10/27/2025 11:15 AM EST Office Visit [facility] [address] [place] [address] Manas Jenkins MD [address] [place] [address] documented as of this encounter Visit Diagnoses Diagnosis Hypomagnesemia- Primary Disorders of magnesium metabolism documented in this encounter Additional Health Concerns Assessment Noted Time PHQ-2 Depression Total Score: 1 11/27/19 24 1:57 PM EST documented as of this encounter Care Teams Plastics Supervisor Relationship Specialty Start Date End Date Manas Jenkins MD [address] [place] [address] PCP - General Family Medicine 05/02/22 documented as of this encounter
--- OUTSIDE RECORDS SUMMARY | 2025-10-17 15:02 | XMS_ITS | Encounter Summary ---
Author Organization [facility] Address [address] [place] [address] Care Team Providers Care Digital Account Director Name Role Phone Manas Jenkins MD Primary Care Provider + Reason for Visit * Reason Comments Med Refill Encounter Details Date Type Department Care Team (Late Contact Info) Description 05/24/2022 Refill [facility] [address] [place] [address] Manas Jenkins MD [address] [place] [address] Lumbar degenerative disc disease Social [...] Description 10/27/2025 11:15 AM EST Office Visit [facility] [address] [place] [address] Manas Jenkins MD [address] [place] [address] documented as of this encounter Visit Diagnoses Diagnosis Lumbar degenerative disc disease documented in this encounter Additional Health Concerns Assessment Noted Time PHQ-2 Depression Total Score: 6 05/02/20 22 12:07 PM EDT documented as of this encounter Care Teams Digital Account Director Relationship Specialty Start Date End Date Manas Jenkins MD [address] [facility] [place] [place] [address] PCP - General Family Medicine 05/02/22 documented as of this encounter
--- OUTSIDE RECORDS SUMMARY | 2025-10-17 15:02 | XMS_ITS | Encounter Summary ---
[facility] [address] [place] [address] Care Team Providers Care Provider Enrollment Specialist Name Role Phone Manas Jenkins MD Primary Care Provider + Reason for Visit * Reason Comments Med Refill Encounter Details Date Type Department Care Team (Late st Contact Info) Description 09/06/2025 Refill [facility] [address] [place] [address] Manas Jenkins MD [address] [place] [address] Chronic right-sided low back pain [...] 10/27/2025 11:15 AM EST Office Visit [facility] [address] [place] [address] Manas Jenkins MD [address], [place] [id number] documented as of this encounter Visit Diagnoses Diagnosis Chronic right-sided low back pain with right-sided sciatica documented in this encounter Additional Health Concerns Assessment Noted Time PHQ-2 Depression Total Score: 1 11/27/19 24 1:57 PM EST documented as of this encounter Care Teams Provider Enrollment Specialist Relationship Specialty Start Date End Date Manas Jenkins MD [address] [place] [address] PCP - General Family Medicine 05/02/22 documented as of this encounter
--- OUTSIDE RECORDS SUMMARY | 2025-10-17 15:02 | XMS_ITS | Encounter Summary ---
Author Organization [facility] yste Address [address] [place] [address] Care Team Providers Care Verification Rep Name Role Phone Manas Jenkins MD Primary Care Provider + Reason for Visit * Reason Comments Med Refill Encounter Details Date Type Department Care Team (Late Contact Info) Description 08/19/2022 Refill [facility] [address] [place] [address] Manas Jenkins MD [address] [place] [address] Lumbar degenerative disc disease Social [...] Description 10/27/2025 11:15 AM EST Office Visit [facility] [address] [place] [address] Manas Jenkins MD [address] [place] [address] documented as of this encounter Visit Diagnoses Diagnosis Lumbar degenerative disc disease documented in this encounter Additional Health Concerns Assessment Noted Time PHQ-2 Depression Total Score: 6 05/02/20 22 12:07 PM EDT documented as of this encounter Care Teams Verification Rep Relationship Specialty Start Date End Date Manas Jenkins MD [address] [facility] [place] [address] PCP - General Family Medicine 05/02/22 documented as of this encounter
--- OUTSIDE RECORDS SUMMARY | 2025-10-17 15:02 | XMS_ITS | Encounter Summary ---
[facility] Address [address] [place] [address] Care Team Providers Care Ground School Instructor Name Role Phone Manas Jenkins MD Primary Care Provider + Reason for Visit * Reason Comments Med Refill Encounter Details Date Type Department Care Team (Late Contact Info) Description 09/08/2025 Refill [facility] [address] [place] [address] Manas Jenkins MD [address] [place] [address] Primary osteoarthritis of right knee; [...] Description 10/27/2025 11:15 AM EST Office Visit [facility] [address] [place] [address] Manas eJnkins MD [address] [facility] [place] [place] [address] documented as of this encounter Visit Diagnoses Diagnosis Primary osteoarthritis of right knee Chronic right-sided low back pain with right-sided sciatica documented in this encounter Additional Health Concerns Assessment Noted Time PHQ-2 Depression Total Score: 1 11/27/19 24 1:57 PM EST documented as of this encounter Care Teams Ground School Instructor Relationship Specialty Start Date End Date Manas Jenkins MD [address] [place] [address] PCP - General Family Medicine 05/02/22 documented as of this encounter
--- OUTSIDE RECORDS SUMMARY | 2025-10-17 15:02 | XMS_ITS | Encounter Summary ---
[facility] [address] [place] [address] Care Team Providers Care Wet Mixer Name Role Phone Manas Jenkins MD Primary Care Provider + Reason for Visit * Reason Onset Date Comments Med Refill 05/22/2022 New Med Request 05/22/2022 Encounter Details Date Type Department Care Team (Late st Contact Info) Description 05/22/2022 Refill [facility] [address] [place] [address] Manas Jenkins MD [address] [place] [address] Lumbar degenerative disc disease Social [...] Mallory Relationship: Self Best call back number: [phone] What medication are you requesting: What are your current symptoms: COUGHING AND CHEST COLD (CONGESTION) AND A SMALL WHEEZE How long have you been experiencing symptoms: 2 DAYS Have you had these symptoms before: [x] Yes [] No Have you been treated for these symptoms before: [x] Yes [] No If a prescription is needed, what is your preferred pharmacy and phone number: [facility] [place] [address] [address] [facility] - [phone] [facility] [phone] FX Additional notes: PLEASE CALL TO ADVISE * Telephone Encounter - Joel Waldron RegSched Rep - 05/22/2022 1:34 PM EDT Caller: Laura Mallory Relationship: Self Best call back number: [phone] Requested Prescriptions: Requested Prescriptions Pending Prescriptions Disp Refills ??? oxyCODONE-acetaminophen (Percocet) 10-325 MG per tablet 90 tablet 0 Sig: Take 1 tablet by mouth Every 8 (Eight) Hours As Needed for Severe Pain . Pharm[facility] where request should be sent[facility] [address] [facility] - [phone] [facility] [phone] FX Additional details provided by patient: Does the patient have less than a 3 day supply: [x] Yes [] No documented in this encounter Plan of Treatment Upcoming Encounters Date Type Department Care Team (Late st Contact Info) Description 10/27/2025 11:15 AM EST Office Visit [facility] [address] [facility] [place] [id number] Manas Jenkins MD [address] [place] [id number] documented as of this encounter Visit Diagnoses Diagnosis Lumbar degenerative disc disease documented in this encounter Additional Health Concerns Assessment Noted Time PHQ-2 Depression Total Score: 6 05/02/20 22 12:07 PM EDT documented as of this encounter Care Teams Wet Mixer Relationship Specialty Start Date End Date Manas Jenkins MD 210 [facility] [place] [address] PCP - General Family Medicine 05/02/22 documented as of this encounter
--- OUTSIDE RECORDS SUMMARY | 2025-10-17 15:02 | XMS_ITS | Clinical Summary ---
[facility] [address] [place] [address] Care Team Providers Care Historical Records Administrator Name Role Phone Manas Jenkins MD Primary [...] Every Morning Before Breakfast. 04/29/20 25 Active ondansetron ODT (ZOFRAN-ODT) 4 MG disintegrating tablet DISSOLVE 1 TABLET IN MOUTH EVERY SIX HOURS NEEDED FOR NAUSEA AND VOMITING 10 tablet 06/27/20 25 Active promethazine (PHENERGAN) 25 MG tablet Take 1 tablet by mouth Every 6 (Six) Hours As Needed for Nausea or Vomiting. 30 tablet 06/27/20 25 Active furosemide (LASIX) 80 MG tabletIndications :Chronic diastolic (congestive) heart failure Take 1 tablet by mouth Daily. 06/30/20 25 Active LORazepam (ATIVAN) 0.5 MG tabletIndications :Chronic anxiety Take 1 tablet by mouth 2 (Two) Times a Day As Needed for Anxiety. 60 tablet 07/14/20 25 Active magnesium oxide (MAG-OX) 400 MG tabletIndications :Hypomagnesemia Take 1 tablet by mouth Daily. 60 tablet 1 07/15/20 25 Active brompheniramine-p seudoephedrine-DM 30-2-10 MG/5ML syrup Take 5 mL by [...] DAILY 30 capsule 3 08/17/20 25 Active gabapentin (NEURONTIN) 100 MG capsuleIndication s:Chronic right-sided low back pain with right-sided sciatica TAKE 1 CAPSULE BY MOUTH THREE TIMES DAILY MAY CAUSE DROWSINESS* * 90 capsule 09/06/20 25 Active DULoxetine (CYMBALTA) 60 MG capsuleIndication s:Chronic right-sided low back pain with right-sided sciatica TAKE ONE (1) CAPSULE BY MOUTH ONCE DAILY 30 capsule 3 09/26/20 25 Active atorvastatin (LIPITOR) 40 MG tabletIndications :Hypercholesterol emia TAKE ONE (1) TABLET BY MOUTH EVERY NIGHT. 90 tablet 09/26/20 25 Active baclofen (LIORESAL) 10 MG tablet Take 1 tablet by mouth 3 (Three) Times a Day As Needed for Muscle Spasms. 20 tablet 10/01/20 25 Active traMADol (ULTRAM) 50 MG tabletIndications :Primary osteoarthritis of right knee,Chronic right-sided low back pain with right-sided sciatica Take 1 tablet by mouth Every 8 (Eight) Hours As Needed for Moderate Pain. 90 tablet 10/10/20 25 Active DULoxetine (CYMBALTA) 60 MG capsuleIndication s:Chronic right-sided low back pain with right-sided sciatica Take 1 capsule by mouth Daily. 30 capsule 3 05/20/20 25 025 Discontinued atorvastatin (LIPITOR) 40 MG tabletIndications :Hypercholesterol emia TAKE 1 TABLET BY MOUTH EVERY NIGHT. 90 tablet 08/17/20 25 025 Discontinued traMADol (ULTRAM) 50 MG tabletIndications :Primary osteoarthritis of right knee,Chronic right-sided low back pain with right-sided sciatica TAKE 1 TABLET BY MOUTH EVERY 8 (EIGHT) HOURS NEEDED FOR MODERATE PAIN. 90 tablet 09/08/20 25 025 Discontinued(R joel) Active Problems Problem Noted Date Diagnosed Date [...] Encounters Date Type Department Care Team Description 10/10/2025 Telephone [facility] [address] [place] [phone] Manas Jenkins MD 10/10/2025 Refill [facility] [address] [place] [address] Manas Jenkins MD Primary osteoarthritis of right knee; Chronic right-sided low back pain with right-sided sciatica 10/01/2025 Documentation [facility] [address] [place] [id number] Hunter Torrez MD 09/25/2025 Refill [facility] [address] [place] [address] Manas Jenkins MD Chronic right-sided low back pain with right-sided sciatica; Hypercholesterolemia 09/22/2025 Telephone [facility] [address] [place] [address] Manas Jenkins MD Advice Only 09/08/2025 Refill [facility] [address] [place] [address] Manas Jenkins MD Primary osteoarthritis of right knee; Chronic right-sided low back pain with right-sided sciatica 09/06/2025 Refill [facility] [address] [place] [address] Manas Jenkins MD Chronic right-sided low back pain with right-sided sciatica 08/17/2025 Refill [facility] [address] [place] [address] Manas Jenkins MD Hypercholesterolemia 08/15/2025 Refill [facility] [address] [facility] [place] [address] Manas Jenkins MD 08/09/2025 Telephone [facility] [address] [place] [address] Manas Jenkins MD New Med Request 08/07/2025 Refill [facility] [address] [place] [address] Manas Jenkins MD Chronic right-sided low back pain with right-sided sciatica; Primary osteoarthritis of right knee; Chronic right-sided low back pain with right-sided sciatica 07/28/2025 Telephone [facility] [address] [place] [address] Manas Jenkins MD New Med Request from Last 3 Months Immunizations Immunization Administration [...] Description 10/27/2025 11:15 AM EST Office Visit [facility] [address] [place] [address] Manas Jenkins MD [address] [place] [address] Health Maintenance Due Date Last [...] Postponed from 11/15/2017 (Patient Refused) LIPID PANEL 09/15/2026 09/15/2025, 04/25, 06/15/2024, Additional history exists TDAP/TD VACCINES (2 - Td or Tdap) 01/23/2034 01/24/2024 COLONOSCOPY 12/29/2034 12/29/2024, 02/23, 06/30/2013 COLORECTAL CANCER SCREENING 12/29/2034 HEPATITIS C SCREENING Completed 05/26/2025, 024 Procedures Procedure Name Priority Date/Time Associated Diagnosis Comments SCANNED EKG 10/10/2025 SCANNED - LABS 10/10/2025 SCANNED - LABS 10/10/2025 SCANNED - LABS 10/10/2025 SCANNED - LABS 10/10/2025 SCANNED - LABS 10/10/2025 SCANNED - IMAGING 10/10/2025 SCANNED - IMAGING 10/10/2025 SCANNED - IMAGING 10/10/2025 SCANNED - LABS 09/26/2025 SCANNED - LABS 09/26/2025 SCANNED EKG 09/14/2025 SCANNED - LABS 09/14/2025 [...] - LABS 09/12/2025 SCANNED - IMAGING 09/12/2025 LIPID PANEL Routine 05/20/2025 3:59 PM EDT Hypercholesterolemia from Last 3 Months or Most Recently Relevant to Health Maintenance Results * ECG Scan (10/10/2025) Only the most recent of2 resultswithin the time period is included. Manas Jenkins MD ECG ORDERABLES Final Re sult * IMAGING SCANNED (10/10/2025) Only the most recent of7 resultswithin the time period is included. Anatomical Region Laterality Modality Radiographic Destiny ging Manas Jenkins MD IMG DIAGNOSTIC IMAGING O RDERABLES Final Result * LABS SCANNED (10/10/2025) Only the most recent of23 resultswithin the time period is included. Manas Jenkins MD LAB BLOOD ORDERABLES Fin al Result from Last 3 Months Insurance MEDICARE A & B Member Subscriber Plan / Payer (Ef fective 2000-Present) Name:Laura Mallory Member ID:[id number] Relation to Subscriber:Self Name:Laura Mallory Subscriber ID:[id number] Payer ID:[id number] Group ID:Not on file Type:Not on file Address: [address] Care Teams Historical Records Administrator Relationship Specialty Start Date End Date Manas Jenkins MD [address] [place] [address] PCP - General Family Medicine 05/02/22
[2025-10-17 16:41] LABS: Hematocrit 26.2 % (37.0-47.0); Hemoglobin 8.2 g/dL (12.2-16.2); Immature Granulocytes % 0.4 %; Mean Corpuscular HGB Conc 31.3 g/dL (31.8-35.4); Mean Corpuscular Hemoglobin 29.1 pg (27.0-31.2); Mean Corpuscular Volume 92.9 fl (81-99); Nucleated Red Blood Cells % 0.4 %; Platelet Count 307 K/mm3 (142-424); Red Blood Count 2.82 M/mm3 (4.20-5.40); Red Cell Distribution Width-SD 66.1 fL; White Blood Count 5.5 K/mm3 (4.8-10.8)
[2025-10-17 17:14] LABS: Albumin Level 2.7 g/dl (3.5-5.0); Chloride 98 mmol/L (98-107); Sodium 133 mmol/L (136-145)
[2025-10-17 17:15] LABS: Potassium 3.4 mmoL/L (3.5-5.1)
[2025-10-17 17:17] LABS: Alanine Aminotransferase 20 U/L (12-78); Albumin/Globulin Ratio 0.9 (1.1-1.8); Alkaline Phosphatase 284 U/L (38-126); Anion Gap 14.4 mEq/L (5-15); Aspartate Amino Transferase 54 U/L (14-36); Bilirubin,Total 0.5 mg/dl (0.2-1.3); Blood Urea Nitrogen 3 mg/dl (7-17); Carbon Dioxide 24 mmol/L (22.0-30.0); Creatinine,Serum 0.70 mg/dl (0.52-1.04); Estimated Glomerular Filt Rate 84 ml/min (>60); GFR (African American) 101 ML/MIN (>60); Globulin 2.9 g/dL (1.3-3.2); Total Protein,Serum 5.6 g/dl (6.3-8.2)
[2025-10-17 17:18] LABS: Calcium 7.8 mg/dl (8.4-10.2); Glucose 82 mg/dl (74-100)
[2025-10-17 18:20] LABS: C-Reactive Protein 4.1 mg/L (0-4)
== END 2025-10-17 23:59 | disposition home or self-care (01) ==
LOC: LAB 14:51
PROVIDERS: PCP Family Medicine; Visit Provider Family Medicine
DX: A41.51 Sepsis due to Escherichia coli [E. coli] (principal)
CPT/HCPCS: 80053; 85025; 85651; 86140